=== PATIENT | female | born 1950 | race Caucasian/White ===

== ENCOUNTER → 2018-07-17 10:18 | Outpatient (BNVA) | payer MEDICARE, OTHER, SELFPAY | PROVIDERS: PCP Nurse Practitioner Family; Visit Provider Nurse Practitioner Gerontology | DX: N39.46 Mixed incontinence (principal); R15.9 Full incontinence of feces; Z87.440 Personal history of urinary (tract) infections | CPT/HCPCS: 51798; 81003; 99204 ==

== ENCOUNTER → 2018-12-12 09:54 | Outpatient (BNVA) | payer MEDICARE, OTHER, SELFPAY | PROVIDERS: PCP Nurse Practitioner Family; Visit Provider Nurse Practitioner Gerontology | DX: N39.41 Urge incontinence (principal) | CPT/HCPCS: 99213 ==

== ENCOUNTER 2020-09-26 15:58 | Outpatient (REF) | payer OTHER, SELFPAY | END 2020-09-26 15:59 | disposition home or self-care (01) | LOC: LBN 15:58 | PROVIDERS: PCP Nurse Practitioner Family; Visit Provider Physician Assistant Medical | DX: R30.9 Painful micturition, unspecified (principal) | CPT/HCPCS: 87077; 87086; 87186 ==

== ENCOUNTER 2021-02-02 11:26 | Outpatient (REF) | payer MEDICARE, SELFPAY ==
[2021-02-02 11:53] LABS: Abs Immature Grans 0.03 10^3/uL (0.0-0.06); Absolute Basophil Count 0.03 10^3/uL (0.0-0.2); Absolute Eosinophil Count 0.16 10^3/uL (0.0-0.7); Absolute Lymphocyte Count 1.59 10^3/uL (1.2-3.4); Absolute Monocyte Count 0.48 10^3/uL (0.1-0.8); Absolute Neutrophil Count 6.11 10^3/uL (1.2-6.7); Basophils % 0.4; Eosinophils % 1.9; HCT 34.8 % (36.0-46.0); HGB 11.3 g/dL (11.2-15.7); Immature Grans % 0.4; Lymphocytes % 18.9; MCH 31.9 pg (27.0-33.0); MCHC 32.5 % (32.0-36.0); MCV 98.3 fL (80-95); MPV 11.1 fL (8.0-11.0); Monocytes % 5.7; Neutrophils % 72.7; Nucleated RBC 0 %; Platelet Count 390 10^3/uL (130-400); RBC 3.54 10^6/uL (3.93-5.22); RDW-SD 50.5 fL
[2021-02-02 12:11] LABS: ALT 15 U/L (14-59); AST 9 U/L (15-37); Albumin 3.2 g/dL (3.4-5.0); Alkaline Phosphatase 88 U/L (46-116); Anion Gap 6.6 mmol/L (3-11); BUN 14 mg/dL (7-18); Bilirubin, Total 0.8 mg/dL (0.2-1.0); CO2 31.4 mmol/L (21.0-32.0); CREATININE 0.7 mg/dL (0.55-1.02); Calcium 9.1 mg/dL (8.5-10.1); Chloride 104 mmol/L (98-107); Glucose 160 mg/dL (74-106); Potassium 4.8 mmol/L (3.5-5.1); Sodium 142 mmol/L (136-145); Total Protein 6.5 g/dL (6.4-8.2)
== END 2021-02-02 11:27 | disposition home or self-care (01) ==
LOC: LBN 11:26
PROVIDERS: PCP Nurse Practitioner Family; Visit Provider Family Medicine
DX: D62 Acute posthemorrhagic anemia (principal)
CPT/HCPCS: 80053; 85025

== ENCOUNTER 2022-10-13 06:58 | Day surgery (SDC) | payer OTHER, SELFPAY ==
[2022-10-13 07:00] VITALS: BP 148/66; PULSE 88; RESP 18; TEMP 37; O2SAT 96
[2022-10-13] MEDS: Tropicam./Phenyleph. (1/2.5%) 5 ML BTL OD ×3 (07:20→07:31)
--- NOTE | 2022-10-13 07:31 | W.ANESPRE ---
General Info Date of Service Date Performed: 10/13/22 Height: 5 ft 2 in Weight: 123 kg Body Mass Index (BMI): 49.6 Surgical Procedure: Operation Date: 10/13/22 08:25 Proposed Procedure Side Surgeon p Cataract Extraction with IOL Implant Right Vishal Chapman MD Meds Allergies and Home Medications Allergies Allergy/AdvReac Type Severity Reaction Status Date / Time alcohol Allergy Verified 10/13/22 07:13 azithromycin Allergy Verified 10/13/22 07:13 meperidine [From Demerol] Allergy Verified 10/13/22 07:13 Penicillins Allergy Verified 10/13/22 07:13 Tetanus Vaccines and Toxoid Allergy Verified 10/13/22 07:13 Home Medication Medication Instructions Recorded acetaminophen 500 mg tablet 500 mg PO QID PRN 07/17/18 (Tylenol Extra Strength) aspirin 81 mg tablet,delayed 81 mg PO BID 07/17/18 release (Adult Aspirin Regimen) betamethasone, augmented 0.05 % 1 applic topical PRN 07/17/18 topical gel bupropion HCl 300 mg 24 hr tablet, 300 mg PO QAM 07/17/18 extended release cyclobenzaprine 5 mg tablet 5 mg PO TID PRN 07/17/18 fluticasone 250 mcg-salmeterol 50 1 inh inhalation BID 07/17/18 mcg/dose blistr powdr for inhalation (Advair Diskus) levalbuterol tartrate 45 2 inh inhalation Q6H 07/17/18 mcg/actuation aerosol inhaler naproxen sodium 550 mg tablet 550 mg PO BID 07/17/18 nystatin 100,000 unit/gram topical 1 applic topical BID 07/17/18 powder (Nystop) psyllium 2 packet PO DAILY 07/17/18 Lactobacillus acidophilus 1 cap PO DIRECTED 10/12/22 albuterol sulfate 2.5 mg/3 mL 2.5 mg inhalation DIRECTED 10/12/22 (0.083 %) solution for nebulization albuterol sulfate 90 mcg/actuation 2 inh inhalation DIRECTED 10/12/22 aerosol inhaler (ProAir HFA) cranberry 1,000 mg capsule 1,000 mg PO DAILY 10/12/22 fluticasone 500 mcg-salmeterol 50 1 inh inhalation BID 10/12/22 mcg/dose blistr powdr for inhalation (Advair Diskus) furosemide 20 mg tablet 20 mg PO DAILY 10/12/22 ipratropium 0.5 mg-albuterol 3 mg 3 ml inhalation DIRECTED 10/12/22 (2.5 mg base)/3 mL nebulization soln lisinopril 10 mg tablet 10 mg PO DAILY 10/12/22 loperamide 2 mg tablet 2 mg PO DIRECTED 10/12/22 nystatin 100,000 unit/gram topical 1 applic topical BID 10/12/22 powder phenazopyridine 200 mg tablet 400 mg PO DAILY PRN 10/12/22 (Pyridium) tobramycin 0.3 % eye drops 1 drp ophthalmic (eye) QID 10/12/22 Current Visit Medications: Current Medications Generic Name Dose Route Start Last Admin Trade Name Freq PRN Reason Stop Dose Admin Acetaminophen 1,000 mg 10/13/22 06:00 Acetaminophen 500 Mg Tab PO 11/12/22 05:59 Q4H PRN PRN Balanced Salt Solution 500 ml 10/13/22 06:00 Balanced Salt Soln.-Plus 500 Ml Bag OP 11/12/22 05:59 DIRECTED OFRREST Miscellaneous Medication 0 ml 10/13/22 06:00 Prednisolone 1%, Moxifloxacin 0.5%, Nepafenac 0.1% 5ml Btl OD 11/12/22 05:59 DIRECTED FORREST Miscellaneous Medication 0 ml 10/13/22 06:00 10/13/22 07:25 Tropicam./Phenyleph. (1/2.5%) 5 Ml Btl OD 11/12/22 05:59 1 drp DIRECTED FORREST Administration Tetracaine HCl 0 ml 10/13/22 06:00 Tetracaine 0.5% 4 Ml Btl OD 11/12/22 05:59 DIRECTED FORREST PFSH Active Problems Active Problems: Problem Status Onset Code Urge incontinence N39.41 Nuclear age-related cataract, right eye H25.11 Medical History Medical History Anemia following surgery Asthma COPD (chronic obstructive pulmonary disease) Depression Generalized headaches Glaucoma HLD (hyperlipidemia) HTN (hypertension) Hx of rotator cuff tear Hypersomnia Impaired renal function disorder Intestinal disaccharidase deficiency Macular degeneration MARTHA (obstructive sleep apnea) Peripheral venous insufficiency Rheumatoid arthritis RLS (restless legs syndrome) Severe obesity Surgical History Surgical History Hx of bilateral hip replacements Hx of colonoscopy Hx of dilation and curettage Hx of total knee replacement Tobacco Smoking/Tobacco Use Status: Never Alcohol Alcohol Intake: never Substance Use Substance use: Never Substance use type: does not use Vital Signs and Lab Results Vital Signs Most Recent Vital Signs in EMR: Most Recent Vital Signs Temp Pulse Resp BP Pulse Ox 37 C 88 18 148/66 H 96 10/13/22 07:00 10/13/22 07:00 10/13/22 07:00 10/13/22 07:00 10/13/22 07:00 Lab Results Blood Type / Crossmatch: No Data to Display Complete Blood Count: No Data to Display Complete Metabolic Panel: No Data to Display Liver Function Panel: No Data to Display Coagulation Panel: No Data to Display Cardiac Panel: No Data to Display Arterial Blood Gas: No Data to Display Venous Blood Gas: No Data to Display Pancreas Panel: No Data to Display Thyroid Panel: No Data to Display Infectious Disease: No Data to Display Blood Cultures: No Data to Display Toxicology Panel: No Data to Display Anesthesia Assessment and Plan Anesthesia History Personal History: No History of Anesthesia Complications Family History: No Family History of Anesthesia Complications Exercise Tolerance Exercise Tolerance: Metabolic Equivalents>4 Pertinent Negatives Pertinent Negatives: No Symptoms of GERD Cardiac & Pulmonary Exam Cardiac Exam: Normal S1/S2 Heart Sounds Pulmonary Exam: Clear Bilateral Breath Sounds Implantable Cardiac Device Does patient have a Pacemaker or an ICD?: No Airway Exam Known Difficult Airway: No Mallampati Class: 1 Mouth Opening: Normal (> 3cm) Thyromental Distance: Greater than 3 cm Neck Range of Motion: Full ROM Neck Circumference: Thick Teeth Condition: Normal Dentition ASA Classification ASA Score: ASA 3 Emergency Case?: No NPO Status NPO Status: NPO Clears >2 hours, Solids >8 hours Anesthesia Plan Resuscitation Status: Full Code Anesthesia Technique: MAC Anesthesia Airway Planned: Natural Airway Monitors Used: Standard Monitors
[2022-10-13 08:02] VITALS: BMI 49.6
[2022-10-13] MEDS: Balanced Salt Soln.-PLUS 500 ML BAG OP (08:32)
[2022-10-13] MEDS: Duovisc Viscoelastic System EACH 1 EACH (08:33)
[2022-10-13] MEDS: Tetracaine 0.5% 4 ML BTL OD (08:33)
[2022-10-13] MEDS: Lidocaine 1% Pres-Free 5 ML VIAL (08:34)
[2022-10-13] MEDS: Povidone-Iodine Ophth 30 ML BTL (08:35)
[2022-10-13] MEDS: Phenylephrine/Lidocaine (15/10) MG/ML 1 ML VIAL (08:35)
[2022-10-13 08:52] VITALS: BP 135/106; PULSE 84; RESP 16; TEMP 36.4; O2SAT 97
--- NOTE | 2022-10-13 08:52 | W.PM.DSUDISC ---
Date of service: 10/13/22 Time of Service: 08:52 Discharge Plan Disposition Patient Disposition: Home Discharge Details Attending Provider: Vihsal Chapman Primary Care Provider: Dandy Driscoll Home Meds and New Rx's Prescriptions: No Action fluticasone propion-salmeterol [Advair Diskus] 250-50 mcg/dose blister with device 1 inh IH BID aspirin [Adult Aspirin Regimen] 81 mg tablet,delayed release (DR/EC) 81 mg PO BID betamethasone, augmented 0.05 % gel 1 applic TP PRN bupropion HCl 300 mg tablet extended release 24 hr 300 mg PO QAM cyclobenzaprine 5 mg tablet 5 mg PO TID PRN levalbuterol tartrate 45 mcg/actuation HFA aerosol inhaler 2 inh IH Q6H psyllium packet 2 packet PO DAILY naproxen sodium 550 mg tablet 550 mg PO BID nystatin [Nystop] 100,000 unit/gram powder 1 applic TP BID acetaminophen [Tylenol Extra Strength] 500 mg tablet 500 mg PO QID PRN ipratropium-albuterol 0.5 mg-3 mg(2.5 mg base)/3 mL solution for nebulization 3 ml INHALATION DIRECTED Patient Comments: INHALE 1 VAIL BY MOUTH VIA NEBULIZER FOUR TIMES A DAY albuterol sulfate 2.5 mg /3 mL (0.083 %) solution for nebulization 2.5 mg inhalation DIRECTED Patient Comments: INHALE ONE VIAL BY MOUTH EVERY 4 HOURS NEEDED FOR WHEEZING phenazopyridine [Pyridium] 200 mg Tablet 400 mg PO DAILY PRN loperamide 2 mg Tablet 2 mg PO DIRECTED tobramycin 0.3 % drops 1 drp ophthalmic (eye) QID Patient Comments: PLACE ONE DROP INTO BOTH EYES FOUR TIMES A DAY FOR 7 DAYS lisinopril 10 mg Tablet 10 mg PO DAILY fluticasone propion-salmeterol [Advair Diskus] 500-50 mcg/dose blister with device 1 inh INHALATION BID Patient Comments: INHALE ONE PUFF BY MOUTH TWICE A DAY furosemide 20 mg tablet 20 mg PO DAILY Patient Comments: TAKE ONE TABLET BY MOUTH EVERY DAY nystatin 100,000 unit/gram Powder 1 applic TOPICAL BID Lactobacillus acidophilus Capsule 1 cap PO DIRECTED albuterol sulfate [ProAir HFA] 90 mcg/actuation Hfa Aerosol Inhaler 2 inh INHALATION DIRECTED cranberry 1,000 mg Capsule 1,000 mg PO DAILY Discharge Instructions Stand Alone Forms: Post-op Topical Cataract, Vernon Najera (DSU) Discharge Orders Discharge Orders: Discharge Order (Routine); Ordered 10/13/22 Ordered By: Vishal Chapman DS: Diagnosis Discharge Diagnosis (1) Nuclear age-related cataract, right eye: Status: Resolved
--- NOTE | 2022-10-13 08:53 | ROE_ITS ---
Date of service: 10/13/22 Time of Service: 08:53 Operative Note Operative Note DATE OF PROCEDURE: 10/13/22 PRE-OP DIAGNOSIS: Nuclear cataract, right eye pleased with POST-OP DIAGNOSIS: same PROCEDURE: Cataract extraction using phacoemulsification with intraocular lens implant, right eye SURGEON: Vishal Chapman ANESTHESIA TYPE: Local By Surgeon and MAC Refer to Anesthesia Record ESTIMATED BLOOD LOSS: 0 PATHOLOGY: none sent COMPLICATIONS: None Patient was transported to: same day Patient's condition: stable Implants: Levi Clareon [id number] Indications: Progressive decreased vision due to cataract, right eye Procedure Description: CATARACT SURGERY OPERATIVE REPORT PREOPERATIVE DIAGNOSIS: Nuclear cataract, right eye POSTOPERATIVE DIAGNOSIS: Same OPERATION: Cataract extraction using phacoemulsification with posterior chamber intraocular lens implant, right eye. IOL: IOL Director Payment/Model: Levi Clareon [id number] IOL Power: + 21.0 diopters IOL Serial Number: [id number] Optic Diameter: 6.0mm Haptic/Overall Diameter: 13.0mm PHACO INFO: Levi Avenir Medicalurion Vision System with OZil and Active Fluidics Cumulative Dispersed Energy (CDE): 11.57 seconds SURGEON: Vishal Chapman MD, ADOLFO ANESTHESIA: Monitored Anesthesia Care (MAC), with local sub-tenon's anesthetic infiltration COMPLICATIONS: None SPECIMENS: None INDICATIONS FOR PROCEDURE: The patient is a 72-year-old lady with history of diminished visual acuity in her right eye secondary to the development of nuclear cataract. She is significantly symptomatic that she desires cataract surgery and attempt to improve and maximize her vision. The option of cataract surgery was offered to the patient and she wished to proceed. See office notes for detailed information. PROCEDURE: The correct surgical eye was identified and marked as the right eye and the pupil was dilated in the preoperative area using mydriatics and cycloplegics. The dilated pupil size was 7.0 mm. The patient elected to proceed without oral sedation. The patient was brought to the operating room where cardiopulmonary monitoring was instituted and surgical time-out was performed, confirming the correct operative eye and IOL power. Topical anesthesia was administered and ophthalmic povidone-iodine 5% was instilled into the conjunctival fornices. The vidhi-ocular area was prepped with Betadine 10% solution and draped in the usual sterile fashion for intraocular surgery, including an aperture drape. A Tegaderm transparent film dressing was cut in half and used to cover the lashes and lid margins. Care was taken to sequester the lashes and lid margins under the Tegaderm dressing. A lid speculum was placed between the lids of the operative eye and the Richard-Richard operating microscope was maneuvered into position. Divya scissors were then used to make a conjunctival buttonhole approximately 6mm posterior to the limbus in the inferonasal quadrant. Blunt dissection was carried out to expose bare sclera, and a blunt-tipped sub-tenon?s anesthesia cannula was introduced and passed posteriorly along the globe where non- preserved plain lidocaine was injected into posterior sub-Tenon?s space. A sideport knife was used to make a paracentesis port. Intraocular phenylephrine/lidocaine was injected into the anterior chamber. The anterior chamber was then filled with viscoelastic. A keratome knife was used to construct a two--plane clear corneal tunnel extending 2.0mm into clear cornea. A flap was raised on the anterior capsule and capsulorhexis forceps were used to complete a continuous curvilinear capsulorhexis of 5.5 mm. Balanced salt solution was then used to perform cortical cleaving hydrodissection and nuclear hydrodelineation until the lens could be freely rotated within the capsular bag. The lens nucleus was then disassembled and removed within the capsular bag and iris plane using phacoemulsification. Residual cortical material was removed using the I/A handpiece. The posterior capsule was carefully polished to remove as much residual lens epithelial cells as safely possible. The capsular bag was then inflated and the anterior chamber deepened with cohesive viscoelastic. The lens implant described above was inserted into the capsular bag using the Levi Autonome Injector. A Kuglen hook was used to dial the IOL into position. Residual viscoelastic was then removed first from posterior to the IOL, then from the anterior chamber using the I/A handpiece. The lens implant was noted to center nicely within the capsular bag. The incisions were stromally hydrated, and the anterior chamber was reformed using BSS. Then 0.5cc of moxifloxacin 1.0mg/ml were injected into the capsular bag and anterior chamber. The incisions were checked with a Weck spear and found to be secure. Several drops of ophthalmic povidone-iodine 5% were then applied to the eye followed by two drops of Imprimis combination prednisolone/moxifloxacin/nepafenac solution. The drapes were removed and a clear plastic protective eye shield was placed over the eye. The patient was then returned to [facility] Day Surgery in stable condition.
[2022-10-13] MEDS: Acetaminophen 500 MG TAB 1000 MG PO (09:18)
--- NOTE | 2022-10-13 09:37 | W.ANESPOSTOP ---
Postoperative Evaluation Date, Time and Location Date Performed: 10/13/22 Time Performed: 09:05 Patient Location: Day Surgery Unit Vital Signs Most Recent Imported Vital Signs: Most Recent Vital Signs Temp Pulse Resp BP Pulse Ox 36.4 C L 84 16 135/106 H 97 10/13/22 08:52 10/13/22 08:52 10/13/22 08:52 10/13/22 08:52 10/13/22 08:52 Pain Score Most Recent Pain Score: Most Recent Pain Score Pain Level 5 10/13/22 08:52 Assessment Mental Status: Awake (Alert & Oriented to Patient Baseline) Airway and Respiratory Function: Patent airway with normal (patient baseline) respiratory exam Cardiovascular Function: Hemodynamically Stable Hydration Status: Adequately Hydrated Nausea & Vomiting: No Nausea or Vomiting Pain: Pt. Denies Any Pain Peripheral Nerve Block: Patient did not receive a nerve block
== END 2022-10-13 09:27 | disposition home or self-care (01) ==
LOC: SUR 07:00
PROVIDERS: PCP Nurse Practitioner Family; Visit Provider Ophthalmology
PROC: (CPT 66984; principal; 2022-10-13 08:15)
DX: H25.11 Age-related nuclear cataract, right eye (principal); I10 Essential (primary) hypertension
CPT/HCPCS: 66984; V2632

== ENCOUNTER 2022-10-27 07:45 | Day surgery (SDC) | payer OTHER, SELFPAY ==
[2022-10-27 07:50] VITALS: BP 123/66; PULSE 83; RESP 18; TEMP 36.4; O2SAT 98
[2022-10-27] MEDS: Tropicam./Phenyleph. (1/2.5%) 5 ML BTL OS ×3 (07:57→08:13)
--- NOTE | 2022-10-27 08:39 | W.ANESPRE ---
General Info Date of Service Date Performed: 10/27/22 Height: 5 ft 2 in Weight: 122 kg Body Mass Index (BMI): 49.1 Surgical Procedure: Operation Date: 10/27/22 09:10 Proposed Procedure Side Surgeon p Cataract Extraction with IOL Implant Left Vishal Chapman MD Meds Allergies and Home Medications Allergies Allergy/AdvReac Type Severity Reaction Status Date / Time alcohol Allergy Verified 10/27/22 08:03 azithromycin Allergy Verified 10/27/22 08:03 meperidine [From Demerol] Allergy Verified 10/27/22 08:03 Penicillins Allergy Verified 10/27/22 08:03 Tetanus Vaccines and Toxoid Allergy Verified 10/27/22 08:03 Home Medication Medication Instructions Recorded acetaminophen 500 mg tablet 500 mg PO QID PRN 07/17/18 (Tylenol Extra Strength) aspirin 81 mg tablet,delayed 81 mg PO BID 07/17/18 release (Adult Aspirin Regimen) betamethasone, augmented 0.05 % 1 applic topical PRN 07/17/18 topical gel bupropion HCl 300 mg 24 hr tablet, 300 mg PO QAM 07/17/18 extended release cyclobenzaprine 5 mg tablet 5 mg PO TID PRN 07/17/18 fluticasone 250 mcg-salmeterol 50 1 inh inhalation BID 07/17/18 mcg/dose blistr powdr for inhalation (Advair Diskus) levalbuterol tartrate 45 2 inh inhalation Q6H 07/17/18 mcg/actuation aerosol inhaler naproxen sodium 550 mg tablet 550 mg PO BID 07/17/18 nystatin 100,000 unit/gram topical 1 applic topical BID 07/17/18 powder (Nystop) psyllium 2 packet PO DAILY 07/17/18 Lactobacillus acidophilus 1 cap PO DIRECTED 10/12/22 albuterol sulfate 2.5 mg/3 mL 2.5 mg inhalation DIRECTED 10/12/22 (0.083 %) solution for nebulization albuterol sulfate 90 mcg/actuation 2 inh inhalation DIRECTED 10/12/22 aerosol inhaler (ProAir HFA) cranberry 1,000 mg capsule 1,000 mg PO DAILY 10/12/22 fluticasone 500 mcg-salmeterol 50 1 inh inhalation BID 10/12/22 mcg/dose blistr powdr for inhalation (Advair Diskus) furosemide 20 mg tablet 20 mg PO DAILY 10/12/22 ipratropium 0.5 mg-albuterol 3 mg 3 ml inhalation DIRECTED 10/12/22 (2.5 mg base)/3 mL nebulization soln lisinopril 10 mg tablet 10 mg PO DAILY 10/12/22 loperamide 2 mg tablet 2 mg PO DIRECTED 10/12/22 nystatin 100,000 unit/gram topical 1 applic topical BID 10/12/22 powder phenazopyridine 200 mg tablet 400 mg PO DAILY PRN 10/12/22 (Pyridium) tobramycin 0.3 % eye drops 1 drp ophthalmic (eye) QID 10/12/22 Current Visit Medications: Current Medications Generic Name Dose Route Start Last Admin Trade Name Freq PRN Reason Stop Dose Admin Acetaminophen 1,000 mg 10/27/22 06:00 Acetaminophen 500 Mg Tab PO 11/26/22 05:59 Q4H PRN PRN Balanced Salt Solution 500 ml 10/27/22 06:00 Balanced Salt Soln.-Plus 500 Ml Bag OP 11/26/22 05:59 DIRECTED FORREST Miscellaneous Medication 0 ml 10/27/22 06:00 Prednisolone 1%, Moxifloxacin 0.5%, Nepafenac 0.1% 5ml Btl OS 11/26/22 05:59 DIRECTED FORREST Miscellaneous Medication 0 ml 10/27/22 06:00 10/27/22 08:13 Tropicam./Phenyleph. (1/2.5%) 5 Ml Btl OS 11/26/22 05:59 1 drp DIRECTED FORREST Administration Tetracaine HCl 0 ml 10/27/22 06:00 Tetracaine 0.5% 4 Ml Btl OS 11/26/22 05:59 DIRECTED FORREST PFSH Active Problems Active Problems: Problem Status Onset Code Nuclear age-related cataract, left eye H25.12 Urge incontinence N39.41 Nuclear age-related cataract, right eye H25.11 Medical History Medical History Anemia following surgery Asthma COPD (chronic obstructive pulmonary disease) Depression Generalized headaches Glaucoma HLD (hyperlipidemia) HTN (hypertension) Hx of rotator cuff tear Hypersomnia Impaired renal function disorder Intestinal disaccharidase deficiency Macular degeneration MARTHA (obstructive sleep apnea) Peripheral venous insufficiency Rheumatoid arthritis RLS (restless legs syndrome) Severe obesity Surgical History Surgical History Hx of bilateral hip replacements Hx of colonoscopy Hx of dilation and curettage Hx of total knee replacement Tobacco Smoking/Tobacco Use Status: Never Alcohol Alcohol Intake: never Substance Use Substance use: Never Substance use type: does not use Vital Signs and Lab Results Vital Signs Most Recent Vital Signs in EMR: Most Recent Vital Signs Temp Pulse Resp BP Pulse Ox 36.4 C L 83 18 123/66 98 10/27/22 07:50 10/27/22 07:50 10/27/22 07:50 10/27/22 07:50 10/27/22 07:50 Lab Results Blood Type / Crossmatch: No Data to Display Complete Blood Count: No Data to Display Complete Metabolic Panel: No Data to Display Liver Function Panel: No Data to Display Coagulation Panel: No Data to Display Cardiac Panel: No Data to Display Arterial Blood Gas: No Data to Display Venous Blood Gas: No Data to Display Pancreas Panel: No Data to Display Thyroid Panel: No Data to Display Infectious Disease: No Data to Display Blood Cultures: No Data to Display Toxicology Panel: No Data to Display Anesthesia Assessment and Plan Anesthesia History Personal History: No History of Anesthesia Complications Family History: No Family History of Anesthesia Complications Exercise Tolerance Exercise Tolerance: Metabolic Equivalents>4 Pertinent Negatives Pertinent Negatives: No Symptoms of GERD Cardiac & Pulmonary Exam Cardiac Exam: Normal S1/S2 Heart Sounds Pulmonary Exam: Clear Bilateral Breath Sounds Implantable Cardiac Device Does patient have a Pacemaker or an ICD?: No Airway Exam Known Difficult Airway: No Mallampati Class: 1 Mouth Opening: Normal (> 3cm) Thyromental Distance: Greater than 3 cm Neck Range of Motion: Full ROM Neck Circumference: Thick Teeth Condition: Normal Dentition ASA Classification ASA Score: ASA 3 Emergency Case?: No NPO Status NPO Status: NPO Clears >2 hours, Solids >8 hours Anesthesia Plan Resuscitation Status: Full Code Anesthesia Technique: MAC Anesthesia Airway Planned: Natural Airway Monitors Used: Standard Monitors
[2022-10-27 08:40] VITALS: BMI 49.1
[2022-10-27] MEDS: Povidone-Iodine Ophth 30 ML BTL (08:55)
[2022-10-27] MEDS: Tetracaine 0.5% 4 ML BTL OS (08:58)
[2022-10-27] MEDS: Balanced Salt Soln.-PLUS 500 ML BAG OP (09:01)
[2022-10-27] MEDS: Lidocaine 1% Pres-Free 5 ML VIAL (09:01)
[2022-10-27] MEDS: Duovisc Viscoelastic System EACH 1 EACH (09:01)
[2022-10-27] MEDS: Phenylephrine/Lidocaine (15/10) MG/ML 1 ML VIAL (09:01)
[2022-10-27 09:23] VITALS: BP 139/72; PULSE 79; RESP 16; TEMP 36.3; O2SAT 100
--- NOTE | 2022-10-27 09:24 | W.PM.DSUDISC ---
Date of service: 10/27/22 Time of Service: 09:24 Discharge Plan Disposition Patient Disposition: Home Discharge Details Attending Provider: Vishal Chapman Primary Care Provider: Dandy Driscoll Home Meds and New Rx's Prescriptions: No Action fluticasone propion-salmeterol [Advair Diskus] 250-50 mcg/dose blister with device 1 inh IH BID aspirin [Adult Aspirin Regimen] 81 mg tablet,delayed release (DR/EC) 81 mg PO BID betamethasone, augmented 0.05 % gel 1 applic TP PRN bupropion HCl 300 mg tablet extended release 24 hr 300 mg PO QAM cyclobenzaprine 5 mg tablet 5 mg PO TID PRN levalbuterol tartrate 45 mcg/actuation HFA aerosol inhaler 2 inh IH Q6H psyllium packet 2 packet PO DAILY naproxen sodium 550 mg tablet 550 mg PO BID nystatin [Nystop] 100,000 unit/gram powder 1 applic TP BID acetaminophen [Tylenol Extra Strength] 500 mg tablet 500 mg PO QID PRN ipratropium-albuterol 0.5 mg-3 mg(2.5 mg base)/3 mL solution for nebulization 3 ml INHALATION DIRECTED Patient Comments: INHALE 1 VAIL BY MOUTH VIA NEBULIZER FOUR TIMES A DAY albuterol sulfate 2.5 mg /3 mL (0.083 %) solution for nebulization 2.5 mg inhalation DIRECTED Patient Comments: INHALE ONE VIAL BY MOUTH EVERY 4 HOURS NEEDED FOR WHEEZING phenazopyridine [Pyridium] 200 mg Tablet 400 mg PO DAILY PRN loperamide 2 mg Tablet 2 mg PO DIRECTED tobramycin 0.3 % drops 1 drp ophthalmic (eye) QID Patient Comments: PLACE ONE DROP INTO BOTH EYES FOUR TIMES A DAY FOR 7 DAYS lisinopril 10 mg Tablet 10 mg PO DAILY fluticasone propion-salmeterol [Advair Diskus] 500-50 mcg/dose blister with device 1 inh INHALATION BID Patient Comments: INHALE ONE PUFF BY MOUTH TWICE A DAY furosemide 20 mg tablet 20 mg PO DAILY Patient Comments: TAKE ONE TABLET BY MOUTH EVERY DAY nystatin 100,000 unit/gram Powder 1 applic TOPICAL BID Lactobacillus acidophilus Capsule 1 cap PO DIRECTED albuterol sulfate [ProAir HFA] 90 mcg/actuation Hfa Aerosol Inhaler 2 inh INHALATION DIRECTED cranberry 1,000 mg Capsule 1,000 mg PO DAILY Discharge Instructions Stand Alone Forms: Post-op Topical Cataract, Vernon Najera (DSU) Discharge Orders Discharge Orders: Discharge Order (Routine); Ordered 10/27/22 Ordered By: Vishal Chapman DS: Diagnosis Discharge Diagnosis (1) Nuclear age-related cataract, left eye: Status: Resolved
--- NOTE | 2022-10-27 09:24 | W.PM.OP ---
Date of service: 10/27/22 Time of Service: 09:24 Operative Note Operative Note DATE OF PROCEDURE: 10/27/22 PRE-OP DIAGNOSIS: Nuclear cataract, left eye POST-OP DIAGNOSIS: same PROCEDURE: Cataract extraction using phacoemulsification with intraocular lens implant, left eye SURGEON: Vishal Chapman ANESTHESIA TYPE: Local By Surgeon and MAC Refer to Anesthesia Record PATHOLOGY: none sent COMPLICATIONS: None Patient was transported to: same day Patient's condition: stable Implants: Levi Clareon [id number] Indications: Progressive decreased vision due to cataract, left eye Procedure Description: CATARACT SURGERY OPERATIVE REPORT PREOPERATIVE DIAGNOSIS: Nuclear cataract, left eye POSTOPERATIVE DIAGNOSIS: Same OPERATION: Cataract extraction using phacoemulsification with posterior chamber intraocular lens implant, left eye. IOL: IOL Architectural Sales Consultant/Model: Levi Clareon [id number] IOL Power: + 22.0 diopters IOL Serial Number: [id number] Optic Diameter: 6.0mm Haptic/Overall Diameter: 13.0mm PHACO INFO: Levi RSP Toolingurion Vision System with OZil and Active Fluidics Cumulative Dispersed Energy (CDE): 7.46 seconds SURGEON: Vishal Chapman MD, ADOLFO ANESTHESIA: Monitored Anesthesia Care (MAC), with local sub-tenon's anesthetic infiltration COMPLICATIONS: None SPECIMENS: None INDICATIONS FOR PROCEDURE: The patient is a 72-year-old lady with history of diminished visual acuity in her left eye secondary to the development of nuclear cataract. She has recently undergone cataract surgery in her right eye is doing well postoperatively. She now presents for cataract surgery in the left eye. See office notes for detailed information. PROCEDURE: The correct surgical eye was identified and marked as the left eye and the pupil was dilated in the preoperative area using mydriatics and cycloplegics. The dilated pupil size was 7.0 mm. 5.5 the patient elected to proceed without oral sedation. The patient was brought to the operating room where cardiopulmonary monitoring was instituted and surgical time-out was performed, confirming the correct operative eye and IOL power. Topical anesthesia was administered and ophthalmic povidone-iodine 5% was instilled into the conjunctival fornices. The vidhi-ocular area was prepped with Betadine 10% solution and draped in the usual sterile fashion for intraocular surgery, including an aperture drape. A Tegaderm transparent film dressing was cut in half and used to cover the lashes and lid margins. Care was taken to sequester the lashes and lid margins under the Tegaderm dressing. A lid speculum was placed between the lids of the operative eye and the Levi LuxOR Revalia operating microscope was maneuvered into position. Divya scissors were then used to make a conjunctival buttonhole approximately 6mm posterior to the limbus in the inferonasal quadrant. Blunt dissection was carried out to expose bare sclera, and a blunt-tipped sub-tenon?s anesthesia cannula was introduced and passed posteriorly along the globe where non-preserved plain lidocaine was injected into posterior sub-Tenon?s space. A sideport knife was used to make a paracentesis port. The entire case was challenging due to the eye being in forceful supraduction. The patient could not look down or keep the eye centered. Intraocular phenylephrine/lidocaine was injected into the anterior chamber. The anterior chamber was then filled with viscoelastic. A keratome knife was used construct a two-plane clear corneal tunnel extending 2.0mm into clear cornea. A flap was raised on the anterior capsule and capsulorhexis forceps were used to complete a continuous curvilinear capsulorhexis of 5.5 mm. Balanced salt solution was then used to perform cortical cleaving hydrodissection and nuclear hydrodelineation until the lens could be freely rotated within the capsular bag. The lens nucleus was then disassembled and removed within the capsular bag and iris plane using phacoemulsification. Residual cortical material was removed using the irrigation/aspiration handpiece. The posterior capsule was carefully polished to remove as much residual lens epithelial cells as safely possible. The capsular bag was then inflated and the anterior chamber deepened with viscoelastic. The lens implant described above was inserted into the capsular bag using the Levi Autonome Injector. A Kuglen hook was used to dial the IOL into position. Residual viscoelastic was then removed first from posterior to the IOL, then from the anterior chamber using the I/A handpiece. The lens implant was noted to center nicely within the capsular bag. The incisions were stromally hydrated, and the anterior chamber was reformed using BSS. Then 0.5cc of moxifloxacin 1.0mg/ml were injected into the capsular bag and anterior chamber. The incisions were checked with a Weck spear and found to be secure. Several drops of ophthalmic povidone-iodine 5% were then applied to the eye followed by two drops of Imprimis combination prednisolone/moxifloxacin/nepafenac solution. The drapes were removed and a clear plastic protective eye shield was placed over the eye. The patient was then returned to Same Day Surgery in stable condition.
--- NOTE | 2022-10-27 09:50 | W.ANESPOSTOP ---
Postoperative Evaluation Date, Time and Location Date Performed: 10/27/22 Time Performed: 09:30 Patient Location: Day Surgery Unit Vital Signs Most Recent Imported Vital Signs: Most Recent Vital Signs Temp Pulse Resp BP Pulse Ox 36.3 C L 79 16 139/72 100 10/27/22 09:23 10/27/22 09:23 10/27/22 09:23 10/27/22 09:23 10/27/22 09:23 Pain Score Most Recent Pain Score: Most Recent Pain Score Pain Level 0 10/27/22 09:23 Assessment Mental Status: Awake (Alert & Oriented to Patient Baseline) Airway and Respiratory Function: Patent airway with normal (patient baseline) respiratory exam Cardiovascular Function: Hemodynamically Stable Hydration Status: Adequately Hydrated Nausea & Vomiting: No Nausea or Vomiting Pain: Pt. Denies Any Pain Peripheral Nerve Block: Patient did not receive a nerve block
== END 2022-10-27 10:03 | disposition home or self-care (01) ==
PROVIDERS: PCP Nurse Practitioner Family; Visit Provider Ophthalmology
PROC: (CPT 66984; principal; 2022-10-27 09:00)
DX: H25.12 Age-related nuclear cataract, left eye (principal); I10 Essential (primary) hypertension
CPT/HCPCS: 66984; V2632

== ENCOUNTER 2024-02-27 16:34 | Emergency (ER) | payer OTHER, SELFPAY ==
[2024-02-27] VITALS (21 sets, daily range): BP systolic 132–150; BP diastolic 60–85; PULSE 79–91; RESP 15–30; TEMP 36.5; O2SAT 91–99
--- NOTE | 2024-02-27 16:45 | DI.RAD_ITS ---
Exam(s) XR CHEST 2V PA LATERAL EXAM: XR CHEST 2V PA LATERAL CLINICAL HISTORY: cough TECHNIQUE: 2D digital imaging was performed. Two views. COMPARISON: No exams were available for comparison FINDINGS: Exam is limited by under penetration at the lung bases. HEART: Upper limits of normal. Mitral annular calcification. Aorta: Mildly tortuous. PULMONARY VASCULATURE: Mildly prominent. MEDIASTINUM: Unremarkable. LUNGS: No focal infiltrate. Increased interstitial markings could be chronic or may represent mild p ulmonary edema. PLEURAL SPACE: No pleural effusion or pneumothorax. BONE:Degenerative changes in the spine and shoulders. SOFT TISSUES: Unremarkable. IMPRESSION: Somewhat limited exam. Question mild CHF. No focal infiltrate is visible. DATA REPOSITORY: RADIATION DOSE DELIVERED:
--- NOTE | 2024-02-27 16:45 | RT.EKG_ITS ---
APPROVED REPORT Exam: Resting ECG Reason for Exam: dyspnea Patient Location: E HR:83 bpm ECG Measurements Heart Rate 83 AXIS SD 174 P 29 QRSd 83 QRS 57 QT 377 T 42 QTc 443 Conclusion Sinus rhythm...normal P axis, V-rate 60- 99
--- NOTE | 2024-02-27 16:58 | ED.GENADUL_ITS ---
Discharge Plan Disposition Patient Disposition: Home Condition: Stable Discharge Details Clinical Impression: Respiratory infection, Asthma exacerbation, Shortness of breath Primary Care Provider: Dandy Driscoll ED Provider: Carlos Barney Home Meds and New Rx's Prescriptions: New prednisone 20 mg tablet 60 mg PO DAILY 4 Days Qty: 12 0RF doxycycline hyclate 100 mg tablet 100 mg PO BID Qty: 14 0RF Continued fluticasone propion-salmeterol [Advair Diskus] 250-50 mcg/dose blister with device 1 inh IH BID aspirin [Adult Aspirin Regimen] 81 mg tablet,delayed release (DR/EC) 81 mg PO BID betamethasone, augmented 0.05 % gel 1 applic TP PRN bupropion HCl 300 mg tablet extended release 24 hr 300 mg PO QAM cyclobenzaprine 5 mg tablet 5 mg PO TID PRN levalbuterol tartrate 45 mcg/actuation HFA aerosol inhaler 2 inh IH Q6H psyllium packet 2 packet PO DAILY naproxen sodium 550 mg tablet 550 mg PO BID nystatin [Nystop] 100,000 unit/gram powder 1 applic TP BID acetaminophen [Tylenol Extra Strength] 500 mg tablet 500 mg PO QID PRN ipratropium-albuterol 0.5 mg-3 mg(2.5 mg base)/3 mL solution for nebulization 3 ml INHALATION DIRECTED Patient Comments: INHALE 1 VAIL BY MOUTH VIA NEBULIZER FOUR TIMES A DAY albuterol sulfate 2.5 mg /3 mL (0.083 %) solution for nebulization 2.5 mg inhalation DIRECTED Patient Comments: INHALE ONE VIAL BY MOUTH EVERY 4 HOURS NEEDED FOR WHEEZING phenazopyridine [Pyridium] 200 mg Tablet 400 mg PO DAILY PRN loperamide 2 mg Tablet 2 mg PO DIRECTED tobramycin 0.3 % drops 1 drp ophthalmic (eye) QID Patient Comments: PLACE ONE DROP INTO BOTH EYES FOUR TIMES A DAY FOR 7 DAYS lisinopril 10 mg Tablet 10 mg PO DAILY fluticasone propion-salmeterol [Advair Diskus] 500-50 mcg/dose blister with device 1 inh INHALATION BID Patient Comments: INHALE ONE PUFF BY MOUTH TWICE A DAY furosemide 20 mg tablet 20 mg PO DAILY Patient Comments: TAKE ONE TABLET BY MOUTH EVERY DAY nystatin 100,000 unit/gram Powder 1 applic TOPICAL BID Lactobacillus acidophilus Capsule 1 cap PO DIRECTED albuterol sulfate [ProAir HFA] 90 mcg/actuation Hfa Aerosol Inhaler 2 inh INHALATION DIRECTED cranberry 1,000 mg Capsule 1,000 mg PO DAILY Discharge Instructions Additional Instructions: Your blood work and x-ray did not show any concerning findings at this time. I suspect you have a respiratory infection causing an exacerbation of your asthma If you are not improving within a week follow-up with your primary care provider If you feel more ill, have severe worsening shortness of breath or severe chest pain return to the emergency department for reevaluation HPI General Date/Time Provider Initiated Documentation: 02/27/24 16:41 . Limitations to Documentation: no limitations . Information obtained by: patient . History of Present Illness 73 year old F presents to the emergency department with the chief complaint of dyspnea, described as moderate, Patient reports no radiation. Patient started experiencing this day(s) (4) and it has been constant. Rest improves symptom(s), Movement worsens symptoms . Patient notes cough; denies chest pain. Related Data Home Medications ?Medication ?Instructions ?Recorded ?Confirmed acetaminophen 500 mg tablet 500 mg PO QID PRN 07/17/18 02/27/24 (Tylenol Extra Strength) aspirin 81 mg tablet,delayed 81 mg PO BID 07/17/18 02/27/24 release (Adult Aspirin Regimen) betamethasone, augmented 0.05 % 1 applic topical PRN 07/17/18 02/27/24 topical gel bupropion HCl 300 mg 24 hr tablet, 300 mg PO QAM 07/17/18 02/27/24 extended release cyclobenzaprine 5 mg tablet 5 mg PO TID PRN 07/17/18 02/27/24 fluticasone 250 mcg-salmeterol 50 1 inh inhalation BID 07/17/18 02/27/24 mcg/dose blistr powdr for inhalation (Advair Diskus) levalbuterol tartrate 45 2 inh inhalation Q6H 07/17/18 02/27/24 mcg/actuation aerosol inhaler naproxen sodium 550 mg tablet 550 mg PO BID 07/17/18 02/27/24 nystatin 100,000 unit/gram topical 1 applic topical BID 07/17/18 02/27/24 powder (Nystop) psyllium 2 packet PO DAILY 07/17/18 10/27/22 Lactobacillus acidophilus 1 cap PO DIRECTED 10/12/22 10/27/22 albuterol sulfate 2.5 mg/3 mL 2.5 mg inhalation DIRECTED 10/12/22 02/27/24 (0.083 %) solution for nebulization albuterol sulfate 90 mcg/actuation 2 inh inhalation DIRECTED 10/12/22 02/27/24 aerosol inhaler (ProAir HFA) cranberry 1,000 mg capsule 1,000 mg PO DAILY 10/12/22 02/27/24 fluticasone 500 mcg-salmeterol 50 1 inh inhalation BID 10/12/22 02/27/24 mcg/dose blistr powdr for inhalation (Advair Diskus) furosemide 20 mg tablet 20 mg PO DAILY 10/12/22 02/27/24 ipratropium 0.5 mg-albuterol 3 mg 3 ml inhalation DIRECTED 10/12/22 02/27/24 (2.5 mg base)/3 mL nebulization soln lisinopril 10 mg tablet 10 mg PO DAILY 10/12/22 02/27/24 loperamide 2 mg tablet 2 mg PO DIRECTED 10/12/22 10/27/22 nystatin 100,000 unit/gram topical 1 applic topical BID 10/12/22 02/27/24 powder phenazopyridine 200 mg tablet 400 mg PO DAILY PRN 10/12/22 02/27/24 (Pyridium) tobramycin 0.3 % eye drops 1 drp ophthalmic (eye) QID 10/12/22 02/27/24 doxycycline hyclate 100 mg tablet 100 mg PO BID #14 tabs 02/27/24 prednisone 20 mg tablet 60 mg (3 x 20 mg) PO DAILY 4 days 02/27/24 #12 tabs Previous Rx's ?Medication ?Instructions ?Recorded doxycycline hyclate 100 mg tablet 100 mg PO BID #14 tabs 02/27/24 prednisone 20 mg tablet 60 mg (3 x 20 mg) PO DAILY 4 days 02/27/24 #12 tabs Allergies Allergy/AdvReac Type Severity Reaction Status Date / Time alcohol Allergy Rash Verified 02/27/24 16:48 azithromycin Allergy Unknown Verified 02/27/24 16:48 meperidine (From Demerol) Allergy Agitation Verified 02/27/24 16:48 Penicillins Allergy Anaphylaxis Verified 02/27/24 16:48 Tetanus Vaccines and Toxoid Allergy Unknown Verified 02/27/24 16:48 General Stated Complaint: SOB ALL: 3 Review of Systems All systems reviewed & are unremarkable except as noted in HPI and below Constitutional Constitutional: Denies chills, Denies fever(s) and Denies weakness Cardiovascular Cardiovascular: Denies chest pain and Reports dyspnea Respiratory Respiratory: Reports cough and Reports dyspnea Gastrointestinal Gastrointestinal: Denies abdominal pain, Denies nausea and Denies vomiting Neurologic Neurologic: Denies weakness Exam Const General: no acute distress Orientation: alert HENMT Head: normal to inspection Ears: external ears normal General nose exam: external nose normal Mouth: moist mucous membranes Eyes General: appearance normal, both eyes and all related structures Neck Neck: normal visual inspection Resp Effort & Inspection: normal respiratory effort Auscultation: wheezes Cardio Jugular venous pressure: no JVD Rate: regular rate Heart Sounds: no murmurs Skin General skin exam: no rashes or lesions noted Neuro General: patient alert and patient oriented x3 Extrem General: normal to inspection Psych Mental Status: mental status grossly normal Course Vital Signs Vital signs: Vital Signs Temperature 36.5 C 02/27/24 16:42 Pulse 84 02/27/24 16:42 Respiratory Rate 30 H 02/27/24 16:42 Blood Pressure 141/85 H 02/27/24 16:42 Pulse Oximetry 91 L 02/27/24 16:42 Temperature 36.5 C 02/27/24 16:42 Pulse 84 02/27/24 16:42 Respiratory Rate 30 H 02/27/24 16:42 Blood Pressure 141/85 H 02/27/24 16:42 Blood Pressure Position Sitting 02/27/24 16:42 Pulse Oximetry 91 L 02/27/24 16:42 Oxygen Delivery Method Room Air 02/27/24 16:42 Oxygen Flow Rate 0 02/27/24 16:42 Medical Decision Making 73-year-old female who states has a history of asthma comes in with 3 to 4 days of worsening shortness of breath along with cough. She says the cough is productive. She denies any chest pain or high fevers. She says that walking around makes her even more short of breath. She is alert and oriented x 4. She has no visible signs of respirator stress, on lung exam she does have diffuse wheezing bilaterally. Given her symptoms we will check a CBC, CMP procalcitonin and chest x-ray. Will also check a Fluvid. Despite her not having chest pain given her complaints of dyspnea with exertion we will check an EKG and troponins. She has no calf tenderness and no pleuritic chest pain or exam findings are consistent with asthma along with respiratory infection so doubt PE. Labs all unremarkable, patient feels better after neb and Solu-Medrol. X-ray read as limited but question CHF, she clinically is not CHF and her proBNP is in the normal range so doubt CHF. Given her increased productive cough will cover for respiratory infection with doxycycline. She is stable for discharge, she will follow-up with her PCP if not improving and return precautions given Differential Diagnosis Differential Diagnosis: Asthma exacerbation, pneumonia, COVID Imaging Data Radiologic Study: Attestation: I personally reviewed and interpreted this imaging study as follows: Imaging: X-Ray Radiologist's impression: Exam(s) XR CHEST 2V PA LATERAL EXAM: XR CHEST 2V PA LATERAL CLINICAL HISTORY: cough TECHNIQUE: 2D digital imaging was performed. Two views. COMPARISON: No exams were available for comparison FINDINGS: Exam is limited by under penetration at the lung bases. HEART: Upper limits of normal. Mitral annular calcification. Aorta: Mildly tortuous. PULMONARY VASCULATURE: Mildly prominent. MEDIASTINUM: Unremarkable. LUNGS: No focal infiltrate. Increased interstitial markings could be chronic or may represent mild pulmonary edema. PLEURAL SPACE: No pleural effusion or pneumothorax. BONE:Degenerative changes in the spine and shoulders. SOFT TISSUES: Unremarkable. IMPRESSION: Somewhat limited exam. Question mild CHF. No focal infiltrate is visible. Lab Data Lab results reviewed: Yes I reviewed the patient's lab results. ECG Data Attestation: I personally reviewed and interpreted this ECG (s) as follows: Prior ECG tracings: available for review Interpretation: sinus rate of 83 pr 174, no stemi Quality:SDOH Health Related Social Needs: No Data to Display PFSH All Active Problems (Updated 02/27/24 @ 19:34 by Carlos Barney MD) Shortness of breath (Acute) Asthma exacerbation (Acute) Respiratory infection (Acute) Urge incontinence (Acute) Medical History (Updated 02/27/24 @ 19:34 by Carlos Barney MD) Hx of rotator cuff tear RLS (restless legs syndrome) Intestinal disaccharidase deficiency Hypersomnia HLD (hyperlipidemia) Anemia following surgery Severe obesity Peripheral venous insufficiency Impaired renal function disorder Depression MARTHA (obstructive sleep apnea) COPD (chronic obstructive pulmonary disease) Asthma Generalized headaches Macular degeneration HTN (hypertension) Rheumatoid arthritis Glaucoma Surgical History (Updated 10/27/22 @ 09:24 by Vishal Chapman MD) Hx of bilateral hip replacements Hx of dilation and curettage Hx of colonoscopy Hx of total knee replacement Social History Smoking/Tobacco Use Status: Never Smoking risk assessment performed?: Yes Alcohol Intake: never Drug use: Never Substance use type: does not use Housing: house Do you feel safe at home: Yes Do you feel safe in your relationship?: Yes
[2024-02-27] MEDS: Albuterol/Ipratropium 3 ML UPD VIAL UPD (17:36)
[2024-02-27 17:38] LABS: Abs Immature Grans 0.01 10^3/uL (0.0-0.06); Absolute Basophil Count 0.02 10^3/uL (0.0-0.2); Absolute Eosinophil Count 0.35 10^3/uL (0.0-0.7); Absolute Monocyte Count 0.47 10^3/uL (0.1-0.8); Absolute Neutrophil Count 3.32 10^3/uL (1.2-6.7); Basophils % 0.3 %; Eosinophils % 5.6 %; HCT 40.8 % (36.0-46.0); HGB 13.1 g/dL (11.2-15.7); Immature Grans % 0.2 %; Lymphocytes % 33.5 %; MCH 31.6 pg (27.0-33.0); MCHC 32.1 % (32.0-36.0); MCV 99 fL (80-95); MPV 10.9 fL (8.0-11.0); Monocytes % 7.5 %; Neutrophils % 52.9 %; Platelet Count 245 10^3/uL (130-400); RBC 4.14 10^6/uL (3.93-5.22); RDW 13.1 % (11.7-14.6); RDW-SD 47.4 fL; WBC 6.27 10^3/uL (4.4-10.8)
[2024-02-27] MEDS: methylPREDNISolone SUCC 125 MG VIAL IVP (17:38)
[2024-02-27 18:04] LABS: ALT 17 U/L (14-59); AST 18 U/L (15-37); Albumin 3.1 g/dL (3.4-5.0); Alkaline Phosphatase 82 U/L (46-116); Anion Gap 4.8 mmol/L (3-11); BUN 12 mg/dL (7-18); Bilirubin, Total 0.72 mg/dL (0.2-1.0); CO2 31.2 mmol/L (21.0-32.0); Calcium 8.8 mg/dL (8.5-10.1); Chloride 107 mmol/L (98-107); Estimated GFR 59.86 (mL/min/1.73m2); Glucose 121 mg/dL (74-106); Magnesium 1.8 mg/dL (1.8-2.4); NT-proBNP 293 pg/mL (<300); Potassium 3.8 mmol/L (3.5-5.1); Sodium 143 mmol/L (136-145); Total Protein 6.9 g/dL (6.4-8.2); Troponin I 11 ng/L (<or=51)
[2024-02-27 18:38] LABS: Procalcitonin < 0.10 ng/mL
[2024-02-27 18:57] LABS: Troponin I 11 ng/L (<or=51)
--- OUTSIDE RECORDS SUMMARY | 2024-02-27 19:29 | XMS_ITS | Continuity of Care Document ---
Author Organization 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 Allergies, Adverse Reactions, Alerts Substance Reaction Severity Status ALCOHOL 1 Unknown Active meperidine Bewilderment Unknown Active azithromycin Swollen face Unknown Active penicillins Swelling Other Unknown Active tetanus toxoids Unknown Active 1Rubbing Assessment and Plan Future Appointments Immunizations Given and Recorded Vaccine Date Status Refusal Reason pneumococcal 23-polyvalent vaccine 1 09/23/21 Bc rded pneumococcal 23-polyvalent vaccine 02/13/08 Record ed [id number] (booster only) vacc 09/23/21 Recorded [id number] (booster only) vacc 07/09/20 Recorded influenza, unspecified formulation 01/07/21 Record ed influenza, unspecified formulation 01/02/20 Record ed influenza, unspecified formulation 02/06/19 Record ed influenza, unspecified formulation 01/22/18 Record ed SARS-CoV-2 (COVID-19) mRNA-1273 vaccine 07/09/20 R ecorded SARS-CoV-2 (COVID-19) mRNA-1273 vaccine 06/11/20 R ecorded SARS-CoV-2 (COVID-19) mRNA-1273 vaccine 2 06/11/20 Recorded pneumococcal 13-valent conjugate vaccine 02/06/19 Recorded influenza virus vaccine, inactivated 02/09/17 Bc rded influenza virus vaccine, inactivated 01/11/17 Bc rded influenza virus vaccine, inactivated 12/16/15 Bc rded influenza virus vaccine, inactivated 01/07/14 Bc rded influenza virus vaccine, inactivated 01/22/13 Bc rded influenza virus vaccine, inactivated 02/07/12 Bc rded influenza virus vaccine, inactivated 01/10/10 Bc rded influenza virus vaccine, inactivated 02/13/08 Bc rded influenza virus vaccine, inactivated 01/30/07 Bc rded influenza virus vaccine, inactivated 12/08/05 Bc rded influenza virus vaccine, inactivated 01/08/04 Bc rded zoster vaccine live 01/22/13 Recorded Novel [id number], all formulation 04/29/09 Recorded pneumococcal 7-valent vaccine 04/09/00 Recorded Not Given Vaccine Date Status Refusal Reason Td(adult) unspecified formulation 3 04/27/20 Not G iven Patient Refuses 1Result Comment: [facility] 2Result Comment: 1st vaccine 3Result Comment: Last Modified by Azra Dykes, Smasher Hand 04-27-2020, 11:54 Medications Acidophilus oral capsule 0 Refill(s) Start Date: 10/27/21 Status: Ordered Advair Diskus 500 mcg-50 mcg inhalation powder 1 puffs, Inhale, BID, # 28 EA, 4 Refill(s), Pharmacy: [facility], 155, cm, 09/23/21 4:52:00 EDT, Height/Length Dosing, 125, kg, 09/23/21 4:52:00 EDT, Weight Dosing Start Date: 11/24/21 Status: Ordered Albuterol (Eqv-ProAir HFA) 90 mcg/inh inhalation aerosol 180 mcg 2 puffs, Inhale, every 4 hr, PRN as needed for wheezing, # 8.5 g, 2 Refill(s), Pharmacy: [facility], 155, cm, 09/23/21 4:52:00 EDT, Height/Length Dosing, 125, kg, 09/23/21 4:52:00 EDT, Weight Dosing Start Date: 11/21/21 Status: Ordered Aleve Topical, PRN as needed for pain, Use spray as directed., 0 Refill(s) Start Date: 10/27/21 Status: Ordered amoxicillin 500 mg oral capsule 2,000 mg = 4 cap, Oral, Once, Take one hr prior to dental procedure., # 4 cap, 0 Refill(s) Start Date: 10/27/21 Status: Ordered aspirin 81 mg oral delayed release tablet 81 mg = 1 tab, Oral, Daily, # 90 tab, 0 Refill(s) Start Date: 10/27/21 Status: Ordered buPROPion 300 mg/24 hours (XL) oral tablet, extended release 300 mg = 1 tab, Oral, Daily, # 90 tab, 2 Refill(s), Pharmacy: [facility], 155, cm, 09/23/21 4:52:00 EDT, Height/Length Dosing, 125, kg, 09/23/21 4:52:00 EDT, Weight Dosing Start Date: 11/21/21 Status: Ordered cannabidiol See Instructions, CBD Cream 3000 mg; apply as directed., 0 Refill(s) Start Date: 10/27/21 Status: Ordered Cranberry oral tablet 1 tab, Oral, Daily, 0 Refill(s) Start Date: 10/27/21 Status: Ordered cyclobenzaprine 10 mg =, Oral, TID, PRN not specified, 1/2 to 1 tab as needed., 0 Refill(s) Start Date: 10/27/21 Status: Ordered lisinopril 10 mg oral tablet 10 mg = 1 tab, Oral, Daily, # 90 tab, 2 Refill(s), Pharmacy: [facility], 155, cm, 09/23/21 4:52:00 EDT, Height/Length Dosing, 125, kg, 09/23/21 4:52:00 EDT, Weight Dosing Start Date: 11/21/21 Status: Ordered loperamide 2 mg oral capsule 2 mg = 1 cap, Oral, TID, PRN as needed for loose stool, # 270 cap, 1 Refill(s), Pharmacy: [facility], 155, cm, 09/23/21 4:52:00 EDT, Height/Length Dosing, 125, kg, 09/23/21 4:52:00 EDT, Weight Dosing Start Date: 11/21/21 Status: Ordered naproxen 500 mg oral tablet 500 mg = 1 tab, Oral, BID, # 60 tab, 1 Refill(s), Pharmacy: [facility], 155,cm, 09/23/21 4:52:00 EDT, Height/Length Dosing, 125, kg, 09/23/21 4:52:00 EDT, Weight Dosing Start Date: 11/21/21 Status: Ordered Nyamyc 100,000 units/g topical powder See Instructions, Topical BID as needed for yeast, # 30 g, 0 Refill(s), Pharmacy: [facility], 155, cm, 09/23/21 4:52:00 EDT, Height/Length Dosing, 125, kg, 09/23/21 4:52:00 EDT, Weight Dosing Start Date: 11/21/21 Status: Ordered torsemide 10 mg oral tablet 10 mg = 1 tab, Oral, Daily, # 30 tab, 0 Refill(s), Pharmacy: [id number], 155, cm, 09/23/21 4:52:00 EDT, Height/Length Dosing, 125, kg, 09/23/21 4:52:00 EDT, Weight Dosing Start Date: 04/06/22 Status: Ordered triamcinolone 0.1% topical cream 1 che, Topical, TID, PRN not specified, Apply to affected areas as needed., # 30 g, 0 Refill(s), Pharmacy: [facility], 155, cm, 09/23/21 4:52:00 EDT, Height/Length Dosing, 125,kg, 09/23/21 4:52:00 EDT, Weight Dosing Start Date: 11/21/21 Status: Ordered Problem List Condition Confirmation Course Effective Dates Status Health Status Informant Asthma 1 Confirmed Active Candidiasis of vulva Confirmed Active Contact dermatitis Confirmed Active Cough 2 Confirmed Active Cyanosis Confirmed Active Depressive disorder Confirmed Active Genital lichen sclerosus Confirmed 12/06/17 Active Hyperlipidemia Confirmed Active Hypersomnia Confirmed Active Hypertensive disorder Confirmed Active Idiopathic osteoarthritis Confirmed Active Impaired renal function disorder 3 Confirmed 03/22/18 Active Intestinal disaccharidase deficiency Confirmed Active Pain of left hip joint Confirmed Active Peripheral venous insufficiency Confirmed Active Postmenopausal state Confirmed Active Restless legs Confirmed Active Severe obesity Confirmed Active Shoulder joint pain Confirmed Active Spondylolisthesis Confirmed Active Spondylosis Confirmed Active Temporomandibular joint disorder Confirmed Active Tracheobronchitis Confirmed Active Urge incontinence of urine Confirmed Active 1From 07-14-2021 visit: stable except on exercise likely due to conditioning. Bradley cleaning is not currently on formulary. Will trial symbicort. 2From 07-07-2021 visit: Likely start of common cold. Recommended mucus relief without the built-in cough suppressant and I will give her the generic Tessalon for the cough to use in the morning and evening if she needs it. Recommended throat lozenges. Drink plenty of water. This can last 7 to 10 days and if not improving in a week to follow-up with her primary care provider. We scheduled her for a Covid PCR test this afternoon. 3[place] [facility] [place] Procedures Procedure Date Related Diagnosis Body Site Status Colonoscopy 1 10/24/18 Completed Total arthroplasty of the left hip 02/12/18 Completed Complete repair of right rotator cuff 01/06/09 Completed Colonoscopy 2 08/11/02 Completed Bilateral knee surgery 3 04/08/01 Completed Procedure on left shoulder 04/08/01 Completed Tubal ligation 04/08/85 Completed Repair of patellar tendon 04/08/68 Completed Dilatation and curettage Completed 1diverticular disease, colon polypx2. 2Normal. 3Revision in 2013 Results Laboratory List Name Date D-Dimer 04/06/22 NT- Pro BNP 04/06/22 Most recent to oldest [Reference Range]: 1 NT-proBNP [0-125 pg/mL] 186 pg/mL *HI* (04/06/22 2:07 PM) D Dimer, (Quant.) [0.00-0.50 mg/L] 0.68 mg/L *HI* (04/06/22 2:07 PM) Social History Social History Type Response Tobacco Never tobacco user T obacco Use:. Sex Female Patient Care team information Personnel Name: aDndy Driscoll NP Address: Address: [address] [address]- [place]
--- OUTSIDE RECORDS SUMMARY | 2024-02-27 19:29 | XMS_ITS | Continuity of Care Document ---
Author Organization [facility] Address [address] [place] [address] Care Team Providers Care Rand Butter Name Role Phone Dandy Driscoll Primary Care Physician Encounter NCTY_ID Date(s): 04/22/22 - 04/24/[address] [id number] Encounter Diagnosis Asthma exacerbation, mild(Discharge Diagnosis) - 04/22/22 RSV (respiratory syncytial virus infection)(Discharge Diagnosis) - 04/22/22 Acute diastolic heart failure(Discharge Diagnosis) - 04/23/22 Acute kidney injury(Discharge Diagnosis) - 04/22/22 Hyperglycemia(Discharge Diagnosis) - 04/22/22 Venous stasis ulcers(Discharge Diagnosis) - 04/22/22 Hypertensive disorder(Discharge Diagnosis) - 04/23/22 UTI (urinary tract infection), bacterial(Discharge Diagnosis) - 04/24/22 Bacterial infection, unspecified(Discharge Diagnosis) - 04/24/22 Unspecified asthma with (acute) exacerbation(Final) - Other specified viral diseases(Final) - Acute diastolic (congestive) heart failure(Final) - Dyspnea, unspecified(Final) - Acute kidney failure, unspecified(Final) - Hyperglycemia, unspecified(Final) - Varicose veins of unspecified lower extremity with ulcer of unspecified site (Final) - Essential (primary) hypertension(Final) - Hyperlipidemia, unspecified(Final) - Restless legs syndrome(Final) - Morbid (severe) obesity due to excess calories(Final) - Personal history of nicotine dependence(Final) - 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) - Do not resuscitate(Final) - Discharge Disposition: Home w/ Home Health Care Attending Physician: Mookie Kothari MD Admitting Physician: Sang, Joann WINDOW CLERK Allergies, Adverse Reactions, Alerts Substance Reaction Severity Status ALCOHOL 1 Moderate Active meperidine Bewilderment Unknown Active azithromycin Swollen face Unknown Active penicillins Swelling Other Unknown Active tetanus toxoids Unknown Active 1Rubbing Assessment and Plan Future Appointments Functional Status 04/24/22 Living Environment Living Situation: Ho me independently, Other: brothers can help but limited assistance - needs exceed current help - suggest [facility]NA referral Current Home Treatments: Home Devices/Equipment Professional Skilled Services: Special Services and Community Resources: Sensory Deficits: Performed by: Jose Wall04/23/22 00:55:00 Lives In Single level home Lives With Alone Living Situation Home independently Home Barriers No shower/tub on fir st level, Other: Mice infestation Patient's Responsibilities 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, Driving, healthcare management, Home management, Housework, Laundry, Meal preparation, Personal ADL, Shopping Job Responsibilities needs help with aaliyah e and responsibilites - needs increasing and unable to do it all Home Equipment Nebulizer, Other: BP Machine Number of Stairs Inside 1 Number of Stairs Outside 1 04/24/22 Lunch Percent 100 04/24/22 Personal Care Provided Bed bath, Diaper/Brief changed, Gown change, Linen change, Lotion, Anca care 04/23/22 Activity Status ADL Up to toilet 04/23/22 Dinner Percent 100 04/23/22 Breakfast Percent 100 04/23/22 Family Member Travel History No recent t ravel Recent Travel History No recent travel Other exposure to Infectious Disease Exp osure to respiratory illness of unknown etiology Immunizations Given and Recorded Vaccine Date Status Refusal Reason pneumococcal 23-polyvalent vaccine 1 09/23/21 Bc rded pneumococcal 23-polyvalent vaccine 02/13/08 Record ed [id number] (booster only) vacc 09/23/21 Recorded [id number] (booster only) vacc 07/09/20 Recorded influenza, unspecified [...] rded zoster vaccine live 01/22/13 Recorded Novel [id number], all formulation 04/29/09 Recorded pneumococcal 7-valent vaccine 04/09/00 Recorded Not Given Vaccine Date Status Refusal Reason Td(adult) unspecified formulation 3 04/27/20 Not G iven Patient Refuses 1Result Comment: [facility] 2Result Comment: 1st vaccine 3Result Comment: Last Modified by Azra Dykes, Zone Manager 04-27-2020, 11:54 Medications !-DuoNeb 0.5 mg-2.5 mg/3 mL inhalation solution 3 mL, NEB, QID, # 120 EA, 0 Refill(s), Pharmacy: [facility], 157, cm, 04/21/22 4:43:00 EST, Height/Length Dosing, 122.47, kg, 04/21/22 4:43:00 EST, Weight Dosing Start Date: 04/21/22 Status: Ordered 1 nebulizer machine 1 nebulizer machine, asthma 493.9 and copd exacerbation J44.1, nebulizers treatement qid and q3-4h prn, Supply, See instructions, # 1 EA, 0 Refill(s) Start Date: 04/21/22 Status: Ordered Acidophilus oral capsule 0 Refill(s) Start Date: 10/27/21 Status: Ordered Advair Diskus 500 mcg-50 mcg inhalation powder 1 puffs, Inhale, BID, # 28 EA, 4 Refill(s), Pharmacy: [facility], 155, cm, 09/23/21 4:52:00 EDT, Height/Length Dosing, 125, kg, 09/23/21 4:52:00 EDT, Weight Dosing Start Date: 11/24/21 Status: Ordered Albuterol (Eqv-ProAir HFA) 90 mcg/inh inhalation aerosol 180 mcg 2 puffs, Inhale, every 4 hr, PRN as needed for wheezing, # 8.5 g, 2 Refill(s), Pharmacy: [facility], 155, cm, 09/23/21 4:52:00 EDT, Height/Length Dosing, 125, kg, 09/23/21 4:52:00 EDT, Weight Dosing Start Date: 11/21/21 Status: Ordered albuterol 2.5 mg/3 mL (0.083%) inhalation solution 2.5 mg = 3 mL, NEB, every 4 hr, PRN as needed for wheezing, # 180 mL, 3 Refill(s), Pharmacy: [facility], 157, cm, 04/21/22 4:43:00 EST, Height/Length Dosing, 122.47, kg, 04/21/22 4:43:00 EST, Weight Dosing Start Date: 04/21/22 Status: Ordered amoxicillin 500 mg oral capsule 2,000 mg = 4 cap, Oral, Once, Take one hr prior to dental procedure., # 4 cap, 0 Refill(s) Start Date: 10/27/21 Status: Ordered aspirin 81 mg oral delayed release tablet 81 mg = 1 tab, Oral, Daily, # 90 tab, 0 Refill(s) Start Date: 10/27/21 Status: Ordered Azo-Standard 400 mg =, Oral, Patient reports once a day, (AZO YEAST)., 0 Refill(s) Start Date: 04/19/22 Status: Ordered benzonatate 100 mg oral capsule 100 mg = 1 cap, Oral, TID, PRN as needed for cough, # 42 cap, 0 Refill(s), Pharmacy: [facility], 157, cm, 04/17/22 0:36:00 EST, Height/Length Dosing, 124.8, kg, 04/17/22 0:36:00 EST, WeightDosing Start Date: 04/19/22 Stop Date: 05/03/22 Status: Ordered buPROPion 300 mg/24 hours (XL) oral tablet, extended release 300 mg = 1 tab, Oral, Daily, # 90 tab, 2 Refill(s), Pharmacy: [facility], 155, cm, 09/23/21 4:52:00 EDT, [...] Daily, # 90 tab, 2 Refill(s), Pharmacy: [facility], 155, cm, 09/23/21 4:52:00 EDT, Height/Length Dosing, 125, kg, 09/23/21 4:52:00 EDT, Weight Dosing Start Date: 11/21/21 Status: Ordered loperamide 2 mg oral capsule 2 mg = 1 cap, Oral, TID, PRN as needed for loose stool, # 270 cap, 1 Refill(s), Pharmacy: [facility], 155, cm, 09/23/21 4:52:00 EDT, Height/Length Dosing, 125, kg, 09/23/21 4:52:00 EDT, Weight Dosing Start Date: 11/21/21 Status: Ordered naproxen 500 mg oral tablet 500 mg = 1 tab, Oral, BID, # 60 tab, 1 Refill(s), Pharmacy: [facility], 155,cm, 09/23/21 4:52:00 EDT, Height/Length Dosing, 125, kg, 09/23/21 4:52:00 EDT, Weight Dosing Start Date: 11/21/21 Status: Ordered Nyamyc 100,000 units/g topical powder See Instructions, Topical BID as needed for yeast, # 30 g, 0 Refill(s), Pharmacy: [facility], 155, cm, 09/23/21 4:52:00 EDT, Height/Length Dosing, 125, kg, 09/23/21 4:52:00 EDT, Weight Dosing Start Date: 11/21/21 Status: Ordered predniSONE 20 mg oral tablet 60 mg = 3 tab, Oral, Daily, 3 tablets for 3 days followed by 2 tabs for 3 days followed by 1 tab for 3 days with food or milk, # 18 tab, 0 Refill(s), Pharmacy: [facility], 157, cm, 234:43:00 EST, Height/Length Dosing, 122.47, kg, ... Start Date: 04/21/22 Status: Ordered sulfamethoxazole-trimethoprim 800 mg-160 mg oral tablet 1 tab, Oral, BID, Correction of duration and dispensed tablets. Drink plenty of fluids., # 20 tab, 0 Refill(s), Pharmacy: [facility], 157, cm, 04/22/22 20:46:00 EST, Height/Length Dosing, 122.47, kg, 04/22/22 20:46:00 EST, Weight Dosing Start Date: 04/24/22 Stop Date: 05/04/22 Status: Ordered torsemide 10 mg oral tablet 10 mg = 1 tab, Oral, Daily, # 30 tab, 0 Refill(s), Pharmacy: [facility], 157, cm, 04/17/22 0:36:00 EST, Height/Length Dosing, 124.8, kg, 04/17/22 0:36:00 EST, Weight Dosing Start Date: 04/19/22 Status: Ordered triamcinolone 0.1% topical cream 1 che, Topical, TID, PRN not specified, Apply to affected areas as needed., # 30 g, 0 Refill(s), Pharmacy: [facility], 155, cm, 09/23/21 4:52:00 EDT, Height/Length Dosing, 125,kg, 09/23/21 4:52:00 EDT, Weight Dosing Start Date: 11/21/21 Status: Ordered Mental Status 04/23/22 Eye Opening Response Shaunna Spontaneous ly Best Verbal Response [place] Oriented Best Motor Response Shaunna Obeys comman ds Shaunna Coma Score 15 Problem List Condition Confirmation Course Effective Dates Status Health Status Informant Acute diastolic heart failure Confirmed Active Anemia following acute postoperative blood loss Confirmed 01/25/21 Active Asthma 1 Confirmed Active Body mass index 40+ - severely obese Confirmed 02/14/18 Active Candidiasis of vulva Confirmed Active Contact dermatitis Confirmed Active Cough 2 Confirmed Active Cyanosis Confirmed Active Depressive disorder Confirmed Active Genital lichen sclerosus Confirmed 12/06/17 Active Hip joint prosthesis present Confirmed 01/19/21 Active History of right total knee replacement Confirmed 01/20/16 Active History of total hip arthroplasty Confirmed 02/14/18 Active Hyperlipidemia Confirmed Active HLD (hyperlipidemia) Confirmed Active Hypersomnia Confirmed Active Hypertensive disorder Confirmed Active HTN (hypertension) Confirmed Active Idiopathic osteoarthritis Confirmed Active Impaired renal function disorder 3 Confirmed 03/22/18 Active Intestinal disaccharidase deficiency Confirmed Active Morbid obesity Confirmed Active Osteoarthritis of left hip joint Confirmed 08/09/17 Active Pain of left hip joint Confirmed Active Peripheral venous insufficiency Confirmed Active Postmenopausal state Confirmed Active Renal impairment Confirmed 09/13/10 Active Restless legs Confirmed Active Restless leg syndrome Confirmed Active Severe obesity Confirmed Active Shoulder [...] a Covid PCR test this afternoon. 3per [facility] [place] Procedures Procedure Date Related Diagnosis [...] in 2013 Results Laboratory List Name Date Glucose POCT 04/24/22 Glucose POCT 04/24/22 Basic Metabolic Panel 04/24/22 CBC w/ Diff 04/24/22 .Manual Differential (NCTY) 04/24/22 Glucose POCT 04/23/22 Urinalysis Microscopic 04/23/22 Urinalysis with Micro if Indicated and C ulture if Indicated 04/23/22 Basic Metabolic Panel 04/23/22 CBC w/ Diff 04/23/22 Hemoglobin A1c 04/23/22 Magnesium Level 04/23/22 .Manual Differential (NCTY) 04/23/22 .Manual Differential (NCTY) 04/22/22 Basic Metabolic Panel 04/22/22 CBC w/ Diff 04/22/22 NT- Pro BNP 04/22/22 Troponin-I 04/22/22 Most recent to oldest [Reference Range]: 1 2 3 WBC [5.0-10.0 x10^3/mcL] 10.4 x10^3/mcL *HI* (04/24/22 5:46 AM) 9.0 x10^3/mcL (04/23/22 7:31 AM) 11.6 x10^3/mcL *HI* (04/22/22 8:57 PM) RBC [4.1-5.3 x10^6/mcL] 4.4 x10^6/mcL (04/24/22 5:46 AM) 4.3 x10^6/mcL (04/23/22 7:31 AM) 4.3 x10^6/mcL (04/22/22 8:57 PM) Segs Man [40-75 %] 88 % *HI* (04/24/22 5:46 AM) 88 % *HI* (04/23/22 7:31 AM) 89 % *HI* (04/22/22 8:57 PM) Lymph Man [20-50 %] 10 % *LOW* (04/24/22 5:46 AM) 7 % *LOW* (04/23/22 7:31 AM) 9 % *LOW* (04/22/22 8:57 PM) [place] Man 2 % *NA* (04/24/22 5:46 AM) 3 % *NA* (04/23/22 7:31 AM) 2 % *NA* (04/22/22 8:57 PM) Eos Man 0 % *NA* (04/24/22 5:46 AM) 0 % *NA* (04/23/22 7:31 AM) 0 % *NA* (04/22/22 8:57 PM) BUN [7-18 mg/dL] 21 mg/dL *HI* (04/24/22 5:46 AM) 18 mg/dL (04/23/22 7:31 AM) 18 mg/dL (04/22/22 8:57 PM) Glucose POC [74-106 mg/dL] 367 mg/dL *CRIT* (04/24/22 11:21 AM) 230 mg/dL *HI* (04/24/22 8:25 AM) 274 mg/dL *HI* (04/23/22 8:02 PM) UA Color Pale Yellow (04/23/22 4:25 PM) UA WBC [0-3] 0-3 (04/23/22 4:25 PM) Glucose Level [74-106 mg/dL] 234 mg/dL *HI* (04/24/22 5:46 AM) 204 mg/dL *HI* (04/23/22 7:31 AM) 234 mg/dL *HI* (04/22/22 8:57 PM) Lymph, Atyp Man 2 % *NA* (04/23/22 7:31 AM) Potassium Level [3.5-5.1 mmol/L] 3.8 mmol/L (04/24/22 5:46 AM) 4.3 mmol/L (04/23/22 7:31 AM) 5.0 mmol/L (04/22/22 8:57 PM) MCV [80.0-96.0] 94.1 (04/24/22 5:46 AM) 95.6 (04/23/22 7:31 AM) 97.0 *HI* (04/22/22 8:57 PM) UA Urobilinogen Normal (04/23/22 4:25 PM) RBC Morph Normal (04/24/22 5:46 AM) Normal (04/23/22 7:31 AM) Normal (04/22/22 8:57 PM) UA Bili [Negative] Negative (04/23/22 4:25 PM) UA Ketones Negative (04/23/22 4:25 PM) MCHC [31.0-35.0 g/dL] 33.6 g/dL (04/24/22 5:46 AM) 33.0 g/dL (04/23/22 7:31 AM) 32.5 g/dL (04/22/22 8:57 PM) Troponin-I [0.0-51.4 pg/mL] 23.6 pg/mL (04/22/22 8:57 PM) Sodium Level [136-145 mmol/L] 137 mmol/L (04/24/22 5:46 AM) 139 mmol/L (04/23/22 7:31 AM) 139 mmol/L (04/22/22 8:57 PM) UA RBC [0-2] 0-2 (04/23/22 4:25 PM) UA Leuk Est Negative (04/23/22 4:25 PM) UA Nitrite Positive *ABN* (04/23/22 4:25 PM) UA Glucose [Negative] 3+ *ABN* (04/23/22 4:25 PM) Hct [37.0-47.0 %] 41.4 % (04/24/22 5:46 AM) 41.2 % (04/23/22 7:31 AM) 41.5 % (04/22/22 8:57 PM) UA Bacteria Moderate /HPF *ABN* (04/23/22 4:25 PM) Calcium Level [8.5-10.1 mg/dL] 9.0 mg/dL (04/24/22 5:46 AM) 8.9 mg/dL (04/23/22 7:31 AM) 8.8 mg/dL (04/22/22 8:57 PM) UA Protein Negative (04/23/22 4:25 PM) MCH [26.0-32.0 pg] 31.6 pg (04/24/22 5:46 AM) 31.6 pg (04/23/22 7:31 AM) 31.5 pg (04/22/22 8:57 PM) Magnesium Level [1.8-2.4 mg/dL] 1.9 mg/dL (04/23/22 7:31 AM) Hgb [12.0-16.0 g/dL] 13.9 g/dL (04/24/22 5:46 AM) 13.6 g/dL (04/23/22 7:31 AM) 13.5 g/dL (04/22/22 8:57 PM) UA Blood 2+ *ABN* (04/23/22 4:25 PM) UA Mucous None Seen /HPF (04/23/22 4:25 PM) Band Man [0-5 %] 0 % (04/24/22 5:46 AM) 0 % (04/23/22 7:31 AM) 0 % (04/22/22 8:57 PM) UA Spec Grav 1.015 *NA* (04/23/22 4:25 PM) Platelets [130-450 x10^3/mcL] 278 x10^3/mcL (04/24/22 5:46 AM) 251 x10^3/mcL (04/23/22 7:31 AM) 251 x10^3/mcL (04/22/22 8:57 PM) CO2 [21-32 mmol/L] 34 mmol/L *HI* (04/24/22 5:46 AM) 32 mmol/L (04/23/22 7:31 AM) 31 mmol/L (04/22/22 8:57 PM) UA Squam Epithelial [None Seen] Rare (04/23/22 4:25 PM) UA pH 6.0 *NA* (04/23/22 4:25 PM) eGFR Non-AA [>=60] 59 *LOW* (04/24/22 5:46 AM) 67 (04/23/22 7:31 AM) 49 *LOW* (04/22/22 8:57 PM) eGFR AA [>=60] 59 *LOW* (04/24/22 5:46 AM) 67 (04/23/22 7:31 AM) 49 *LOW* (04/22/22 8:57 PM) UA Appear Hazy *ABN* (04/23/22 4:25 PM) Hemoglobin A1c [4.0-6.0 %] 6.6 % *HI* (04/23/22 7:31 AM) NT-proBNP [0-125 pg/mL] 530 pg/mL *HI* (04/22/22 8:57 PM) Chloride Level [98-107 mmol/L] 96 mmol/L *LOW* (04/24/22 5:46 AM) 99 mmol/L (04/23/22 7:31 AM) 103 mmol/L (04/22/22 8:57 PM) RDW-CV [11.7-17.0 %] 13.9 % (04/24/22 5:46 AM) 14.2 % (04/23/22 7:31 AM) 14.6 % (04/22/22 8:57 PM) UA Culture Ind?. Indicated (04/23/22 4:25 PM) Abs Neut Man 9.2 x10^3/mcL *NA* (04/24/22 5:46 AM) 7.9 x10^3/mcL *NA* (04/23/22 7:31 AM) 10.3 x10^3/mcL *NA* (04/22/22 8:57 PM) Creatinine Level [0.55-1.02 mg/dL] 1.02 mg/dL (04/24/22 5:46 AM) 0.91 mg/dL (04/23/22 7:31 AM) 1.18 mg/dL *HI* (04/22/22 8:57 PM) Baso Man [0-1 %] 0 % (04/24/22 5:46 AM) 0 % (04/23/22 7:31 AM) 0 % (04/22/22 8:57 PM) Orders for Microbiology Reports Name Date Urine Culture 04/23/22 Microbiology Reports TEST:Urine Culture STATUS:Auth (Verified) BODY SITE: SOURCE:Urine COLLECTED DATE/TIME:04/23/22 4:25 PM FINAL REPORT >100,000 cfu/ml Escherichia coli ORGANISM:Escherichia coli Vital Signs Most recent to oldest [Reference Range]: 1 2 3 4 Temperature Temporal Artery [36-38 Deg C] 36.7 Deg C (04/24/22 10:28 AM) 36.6 Deg C (04/24/22 6:33 AM) 35.9 Deg C *LOW* (04/24/22 3:12 AM) Peripheral Pulse Rate [60-100 bpm] 84 bpm (04/24/22 10:28 AM) 74 bpm (04/24/22 6:33 AM) 87 bpm (04/24/22 3:12 AM) 83 bpm (04/24/22 3:12 AM) Heart Rate Monitored [60-100 bpm] 80 bpm (04/22/22 11:58 PM) 84 bpm (04/22/22 11:55 PM) 94 bpm (04/22/22 10:39 PM) Respiratory Rate [12-24 br/min] 18 br/min (04/24/22 10:28 AM) 18 br/min (04/24/22 6:33 AM) 18 br/min (04/24/22 3:12 AM) 18 br/min (04/24/22 3:12 AM) Blood Pressure [90-140/60-90 mmHg] 136/71mmHg (04/24/22 10:28 AM) 113/55mmHg (04/24/22 6:33 AM) 151/84mmHg *HI* (04/24/22 3:12 AM) Mean Arterial Pressure Cuff 105 mmHg (04/24/22 3:12 AM) 92 mmHg (04/23/22 11:47 PM) 101 mmHg (04/23/22 10:28 PM) Blood Pressure Location Right arm (04/24/22 10:28 AM) Right arm (04/24/22 6:33 AM) Right arm (04/24/22 3:12 AM) Blood Pressure Method Automatic (04/24/22 10:28 AM) Automatic (04/24/22 6:33 AM) Automatic (04/24/22 3:12 AM) Weight 119.9 kg (04/24/22 6:33 AM) 121.4 kg (04/23/22 7:22 AM) 122 kg (04/23/22 6:11 AM) Weight Dosing 122.47 kg (04/22/22 8:46 PM) Usual Weight 124 kg (04/23/22 12:58 AM) Height 157.48 cm (04/23/22 12:42 AM) 157.000 cm (04/22/22 8:36 PM) Height/Length Dosing 157.000 cm (04/22/22 8:46 PM) Body Mass Index 50.000 kg/m2 (04/22/22 8:36 PM) Social History Social History Type Response Tobacco Former tobacco user Tobacco Use:. Sex Female Hospital Discharge Instructions Patient Education 04/24/2022 12:36:16 Asthma, Adult Asthma, Adult Asthma is a long-term (chronic) condition that causes recurrent episodes in which the airways become tight and narrow. The airways are the passages that lead from the nose and mouth down into the lungs. Asthma episodes, also called asthma attacks, can cause coughing, wheezing, shortness of breath, and chest pain. The airways can also fill with mucus. During an attack, it can be difficult to breathe. Asthma attacks can range from minor to life threatening. Asthma cannot be cured, but medicines and lifestyle changes can help control it and treat acute attacks. What are the causes? This condition is believed to be caused by inherited (genetic) and environmental factors, but its exact cause is not known. There are many things that can bring on an asthma attack or make asthma symptoms worse (triggers). Asthma triggers are different for each person. Common triggers include: ??? Mold. ??? Dust. ??? Cigarette smoke. ??? Cockroaches. ??? Things that can cause allergy symptoms (allergens), such as animal dander or pollen from trees or grass. ??? Air pollutants such as household mill operator, wood smoke, smog, or chemical odors. ??? Cold air, weather changes, and winds (which increase molds and pollen in the air). ??? Strong emotional expressions such as crying or laughing hard. ??? Stress. ??? Certain medicines (such as aspirin) or types of medicines (such as beta-blockers). ??? Sulfites in foods and drinks. Foods and drinks that may contain sulfites include dried fruit, potato chips, and sparkling grape juice. ??? Infections or inflammatory conditions such as the flu, a cold, or inflammation of the nasal membranes (rhinitis). ??? Gastroesophageal reflux disease (GERD). ??? Exercise or strenuous activity. What are the signs or symptoms? Symptoms of this condition may occur right after asthma is triggered or many hours later. Symptoms include: ??? Wheezing. This can sound like whistling when you breathe. ??? Excessive nighttime or starbucks clerk coughing. ??? Frequent or severe coughing with a common cold. ??? Chest tightness. ??? Shortness of breath. ??? Tiredness (fatigue) with minimal activity. How is this diagnosed? This condition is diagnosed based on: ??? Your medical history. ??? A physical exam. ??? Tests, which may include: ??? Lung function studies and pulmonary studies (spirometry). These tests can evaluate the flow of air in your lungs. ??? Allergy tests. ??? Imaging tests, such as X-rays. How is this treated? There is no cure for this condition, but treatment can help control your symptoms. Treatment for asthma usually involves: ??? Identifying and avoiding your asthma triggers. ??? Using medicines to control your symptoms. Generally, two types of medicines are used to treat asthma: ??? Controller medicines. These help prevent asthma symptoms from occurring. They are usually takenevery day. ??? Fast-acting reliever or rescue medicines. These quickly relieve asthma symptoms by widening thenarrow and tight airways. They are used as needed and provide short-term relief. ??? Using supplemental oxygen. This may be needed during a severe episode. ??? Using other medicines, such as: ??? Allergy medicines, such as antihistamines, if your asthma attacks are triggered by allergens. ??? Immune medicines (immunomodulators). These are medicines that help control the immune system. ??? Creating an asthma action plan. An asthma action plan is a written plan for managing and treating your asthma attacks. This plan includes: ??? A list of your asthma triggers and how to avoid them. ??? Information about when medicines should be taken and when their dosage should be changed. ??? Instructions about using a device called a peak flow meter. A peak flow meter measures how wellthe lungs are working and the severity of your asthma. It helps you monitor your condition. Follow these instructions at home: Controlling your home environment Control your home environment in the following ways to help avoid triggers and prevent asthma attacks: ??? Change your heating and air conditioning filter regularly. ??? Limit your use of fireplaces and wood stoves. ??? Get rid of pests (such as roaches and mice) and their droppings. ??? Throw away plants if you see mold on them. ??? Clean floors and dust surfaces regularly. Use unscented cleaning products. ??? Try to have someone else vacuum for you regularly. Stay out of rooms while they are being vacuumed and for a short while afterward. If you vacuum, use a dust mask from a hardware store, a double-layered or microfilter vacuum truck car and bus cleaner bag, or a vacuum truck car and bus cleaner with a HEPA filter. ??? Replace carpet with wood, tile, or vinyl christine. Carpet can trap dander and dust. ??? Use allergy-proof pillows, mattress covers, and box spring covers. ??? Keep your bedroom a trigger-free room. ??? Avoid pets and keep windows closed when allergens are in the air. ??? Wash beddings every week in hot water and dry them in a dryer. ??? Use blankets that are made of polyester or cotton. ??? Clean bathrooms and vasyl with bleach. If possible, have someone repaint the [place] in these rooms with mold-resistant paint. Stay out of the rooms that are being cleaned and painted. ??? Wash your hands often with soap and water. If soap and water are not available, use hand slide fastener repairer. ??? Do not allow anyone to smoke in your home. General instructions ??? Take [id number] and prescription medicines only as told by your health care provider. ??? Speak with your health care provider if you have questions about how or when to take the medicines. ??? Make note if you are requiring more frequent dosages. ??? Do not use any products that contain nicotine or tobacco, such as cigarettes and e-cigarettes. If you need help quitting, ask your health care provider. Also, avoid being exposed to secondhand smoke. ??? Use a peak flow meter as told by your health care provider. Record and keep track of the readings. ??? Understand and use the asthma action plan to help minimize, or stop an asthma attack, without needing to seek medical care. ??? Make sure you stay up to date on your yearly vaccinations as told by your health care provider.This may include vaccines for the flu and pneumonia. ??? Avoid outdoor activities when allergen counts are high and when air quality is low. ??? Wear a ski mask that covers your nose and mouth during outdoor winter activities. Exercise indoors on cold days if you can. ??? Warm up before exercising, and take time for a cool-down period after exercise. ??? Keep all follow-up visits as told by your health care provider. This is important. Where to find more information ??? For information about asthma, turn to the Centers for Disease Control and Prevention at www.cdc.gov/asthma/faqs ??? For air quality information, turn to [employer] at airIWTw.gov Contact a health care provider if: ??? You have wheezing, shortness of breath, or a cough even while you are taking medicine to prevent attacks. ??? The mucus you cough up (sputum) is thicker than usual. ??? Your sputum changes from clear or white to yellow, green, hendricks, or bloody. ??? Your medicines are causing side effects, such as a rash, itching, swelling, or trouble breathing. ??? You need to use a reliever medicine more than 2???3 times a week. ??? Your peak flow reading is still at 50???79% of your personal best after following your action plan for 1 hour. ??? You have a fever. Get help right away if: ??? You are getting worse and do not respond to treatment during an asthma attack. ??? You are short of breath when at rest or when doing very little physical activity. ??? You have difficulty eating, drinking, or talking. ??? You have chest pain or tightness. ??? You develop a fast heartbeat or palpitations. ??? You have a bluish color to your lips or fingernails. ??? You are light-headed or dizzy, or you faint. ??? Your peak flow reading is less than 50% of your personal best. ??? You feel too tired to breathe normally. Summary ??? Asthma is a long-term (chronic) condition that causes recurrent episodes in which the airways become tight and narrow. These episodes can cause coughing, wheezing, shortness of breath, and chest pain. ??? Asthma cannot be cured, but medicines and lifestyle changes can help control it and treat acuteattacks. ??? Make sure you understand how to avoid triggers and how and when to use your medicines. ??? Asthma attacks can range from minor to life threatening. Get help right away if you have an asthma attack and do not respond to treatment with your usual rescue medicines. This information is not intended to replace advice given to you by your health care provider. Make sure you discuss any questions you have with your health care provider. Document Revised: 12/24/2020 Document Reviewed: 07/28/2020 [employer] Patient Education ?? 2021 [employer]. 04/24/2022 12:36:03 Heart Failure, Self-Care Heart Failure, Self-Care Heart failure is a serious condition. The following information explains the things you need to do to take care of yourself after a heart failure diagnosis. You may be asked to change your diet, takecertain medicines, and make other lifestyle changes in order to stay as healthy as possible. Your health care provider may also give you more specific instructions. If you have problems or questions,contact your health care provider. What are the risks? Having heart failure puts you at higher risk for certain problems. These problems can get worse if you do not take good care of yourself. Problems may include: ??? Damage to the kidneys, liver, or lungs. ??? Malnutrition. ??? Abnormal heart rhythms. ??? Blood clotting issues that could cause a stroke. Supplies needed: ??? Scale for monitoring weight. ??? Blood pressure monitor. ??? Notebook. ??? Medicines. How to care for yourself when you have heart failure Medicines Take [id number]-[id number] and prescription medicines only as told by your health care provider. Medicines reduce the workload of your heart, slow the progression of heart failure, and improve symptoms. Take your medicines every day. ??? Do not stop taking your medicine unless your health care provider tells you to do so. ??? Do not skip any dose of medicine. ??? Refill your prescriptions before you run out of medicine. ??? Talk with your health care provider if you cannot afford your medicines. Eating and drinking ??? Eat heart-healthy foods. Talk with a dietitian to make an eating plan that is right for you. ??? Limit salt (sodium) if told by your health care provider. Sodium restriction may reduce symptoms of heart failure. Ask a dietitian to recommend heart-healthy seasonings. ??? Use healthy cooking methods instead of frying. Healthy methods include roasting, grilling, broiling, baking, poaching, steaming, and stir-frying. ??? Choose foods that contain no trans fat and are low in saturated fat and cholesterol. Healthy choices include fresh or frozen fruits and vegetables, fish, lean meats, legumes, fat-free or low-fat dairy products, and whole-grain or high-fiber foods. ??? Limit your fluid intake, if directed by your health care provider. Fluid restriction may reducesymptoms of heart failure. Alcohol use ??? Do not drink alcohol if: ??? Your health care provider tells you not to drink. ??? Your heart was damaged by alcohol, or you have severe heart failure. ??? You are , may be , or are planning to become . ??? If you drink alcohol: ??? Limit how much you have to: ??? 0???1 drink a day for women. ??? 0???2 drinks a day for men. ??? Know how much alcohol is in your drink. In the [place] one drink equals one 12 oz bottle of beer (355 mL), one 5 oz glass of wine (148 mL), or one 1?? oz glass of hard liquor (44 mL). Lifestyle ??? Do not use any products that contain nicotine or tobacco. These products include cigarettes, chewing tobacco, and vaping devices, such as e-cigarettes. If you need help quitting, ask your health care provider. ??? Do not use nicotine gum or patches before talking to your health care provider. ??? Do not use illegal drugs. ??? Work with your health care provider to safely reach the right body weight. ??? Do physical activity if told by your health care provider. Talk to your health care provider before you begin an exercise if: ??? You are an older adult. ??? You have severe heart failure. ??? Learn to manage stress. If you need help to do this, ask your health care provider. ??? Participate in or seek physical rehabilitation as needed to keep or improve your independence and quality of life. ??? Participate in a cardiac rehabilitation program, which is a treatment program to improve your health and well-being through exercise training, education, and counseling. ??? Plan rest periods when you get tired. Monitoring important information ??? Weigh yourself every day. This will help you to notice if too much fluid is building up in yourbody. ??? Weigh yourself every morning after you urinate and before you eat breakfast. ??? Wear the same amount of clothing each time you weigh yourself. ??? Record your daily weight. Provide your health care provider with your weight record. ??? Monitor and record your pulse and blood pressure as told by your health care provider. Dealing with extreme temperatures ??? If the weather is extremely hot: ??? Avoid vigorous physical activity. ??? Use air conditioning or fans, or find a cooler location. ??? Avoid caffeine and alcohol. ??? Wear loose-fitting, lightweight, and light-colored clothing. ??? If the weather is extremely cold: ??? Avoid vigorous activity. ??? Layer your clothes. ??? Wear mittens or gloves, a hat, and a face covering when you go outside. ??? Avoid alcohol. Follow these instructions at home: ??? Stay up to date with vaccines. Pneumococcal and flu (influenza) vaccines are especially important in preventing infections of the airways. ??? Keep all follow-up visits. This is important. Contact a health care provider if you: ??? Gain 2???3 lb (1???1.4 kg) in 24 hours or 5 lb (2.3 kg) in a week. ??? Have increasing shortness of breath. ??? Are unable to participate in your usual physical activities. ??? Get tired easily. ??? Cough more than normal, especially with physical activity. ??? Lose your appetite or feel nauseous. ??? Have any swelling or more swelling in areas such as your hands, feet, ankles, or abdomen. ??? Are unable to sleep because it is hard to breathe. ??? Feel like your heart is beating quickly (palpitations). ??? Become dizzy or light-headed when you stand up. ??? Have feelings of depression or sadness. Get help right away if you: ??? Have trouble breathing. ??? Notice, or your family notices, a change in your awareness, such as having trouble staying awake or concentrating. ??? Have pain or discomfort in your chest. ??? Have an episode of fainting (syncope). These symptoms may represent a serious problem that is an emergency. Do not wait to see if the symptoms will go away. Get medical help right away. Call your local emergency services (911 in the [place] Do not drive yourself to the hospital. Summary ??? Heart failure is a serious condition. To care for yourself, you may be asked to change your diet, take certain medicines, and make other lifestyle changes. ??? Take your medicines every day. Do not stop taking them unless your health care provider tells you to do so. ??? Limit salt and eat heart-healthy foods, such as fresh or frozen fruits and vegetables, fish, lean meats, legumes, fat-free or low-fat dairy products, and whole-grain or high-fiber foods. ??? Ask your health care provider if you have any alcohol restrictions. You may have to stop drinking alcohol if you have severe heart failure. ??? Contact your health care provider if you notice problems, such as rapid weight gain or a fast heartbeat. Get help right away if you faint or have chest pain or trouble breathing. This information is not intended to replace advice given to you by your health care provider. Make sure you discuss any questions you have with your health care provider. Document Revised: 10/16/2020 Document Reviewed: 10/16/2020 [employer] Patient Education ?? 2021 [employer]. Follow Up Care 04/22/2022 20:36:07 With:Dandy Drisclol NP Address: [place] [phone] When:1 to 2 weeks Discharge instructions * Irena Feliciano: PERFORM Event Display: Discharge Instructions Authored Date: [id number] SURYA QUINTANA :1950 Age:72 years Sex:Female Visit Date:04/22/2022 Primary Care Physician: Dandy Driscoll NP Hospital Discharge Instructions We would like to thank you for allowing us to assist you with your healthcare needs. The following includes patient education materials and information regarding your injury/illness. After you leave the hospital, you may get your health information including your test results, physician notes and discharge information by accessing your Patient Portal. Your Next Steps Instructions From Your Care Team Call your primary care provider for: Temperature greater than 101F. Pain that does not go away. Persistent nausea, vomiting or constipation. Shortness of breath, with or without chest discomfort. Weight gain of 3 or more pounds per day. Discharge Orders Discharge Activity Restrictions, No Restrictions Discharge Diet Instruction, Consistent Carbohydrate [id number] corey, Cardiac, heart healthy with diabetic ADA 1800-calorie diet Discharge Follow Up Instructions, 04/24/22 13:28:00 EST, When following are met: Other (please specify), Follow up with PCP within 2 weeks. Call for appointment Discharge Wound Care Instructions, Dry bandage wraps with V[facility] nurses to assess wound and wound dressings at home. Scheduled Future Appointments 2022 10:40 AM EST ?? Sunday 1:40 PM EDT ?? Follow Up Appointments Follow Up with??Dandy Driscoll WINDOW CLERK When:??Within 1 to 2 weeks Where: [address] [address]- Medications What How Much When Why Instructions Next Dose New sulfamethoxazole-trimethoprim (sulfamethoxazole-trimethoprim 800 mg-160 mg oral tablet) 1 tab Oral (given by mouth) 2 times a day Duration: 10 Days Correction of duration and dispensed tablets. Drink plenty of fluids. ?? Pickup at [id number] Changed naproxen (naproxen 500 mg oral tablet) 1 tab Oral (given by mouth) 2 times a day Unchanged albuterol (Albuterol (Eqv-ProAir HFA) 90 mcg/ inh inhalation aerosol) 2 Puffs Inhale (breathe in) Every 4 hours as needed for as needed for wheezing Asthma Unchanged albuterol (albuterol 2.5 mg/ 3 mL (0.083%) inhalation solution) 3 Milliliters Nebulized inhalation (inhale using nebulizer) Every 4 hours as needed for as needed for wheezing RSV infection COPD with exacerbation Cough Unchanged amoxicillin (amoxicillin 500 mg oral capsule) 4 Capsules Oral (given by mouth) Once Take one hr prior to dental procedure. ?? Unchanged aspirin (aspirin 81 mg oral delayed release tablet) 1 tab Oral (given by mouth) Every day Unchanged benzonatate (benzonatate 100 mg oral capsule) 1 Capsules Oral (given by mouth) 3 times a day as needed for as needed for cough Duration: 14 Days Unchanged buPROPion (buPROPion 300 mg/ 24 hours (XL) oral tablet, extended release) 1 tab Oral (given by mouth) Every day Anxiety Unchanged cannabidiol See instructions CBD Cream 3000 mg; apply as directed. ?? Unchanged cranberry (Cranberry oral tablet) 1 tab Oral (given by mouth) Every day Unchanged cyclobenzaprine 10 Milligrams Oral (given by mouth) 3 times a day as needed for not specified 1/ 2 to 1 tab as needed. ?? Unchanged Durable Medical Equipment for Prescription (1 nebulizer machine) See instructions RSV infection COPD with exacerbation Cough asthma 493.9 and copd exacerbation J44.1, nebulizers treatement qid and q3-4h prn ?? Unchanged fluticasone-salmeterol (Advair Diskus 500 mcg-50 mcg inhalation powder) 1 Puffs Inhale (breathe in) 2 times a day Asthma Unchanged ipratropium-albuterol (!-DuoNeb 0.5 mg-2.5 mg/ 3 mL inhalation solution) 3 Milliliters Nebulized inhalation (inhale using nebulizer) 4 times a day RSV infection COPD with exacerbation Cough Unchanged lactobacillus acidophilus (Acidophilus oral capsule) Unchanged lisinopril (lisinopril 10 mg oral tablet) 1 tab Oral (given by mouth) Every day Hypertensive disorder Unchanged loperamide (loperamide 2 mg oral capsule) 1 Capsules Oral (given by mouth) 3 times a day as needed for as needed for loose stool Unchanged nystatin topical (Nyamyc 100,000 units/ g topical powder) See instructions Yeast infection Topical BID as needed for yeast ?? Unchanged phenazopyridine (Azo-Standard) 400 Milligrams Oral (given by mouth) Patient reports once a day, (AZO YEAST). ?? Unchanged predniSONE (predniSONE 20 mg oral tablet) 3 tab Oral (given by mouth) Every day RSV infection COPD with exacerbation Cough 3 tablets for 3 days followed by 2 tabs for 3 days followed by 1 tab for 3 days with food or milk ?? Unchanged torsemide (torsemide 10 mg oral tablet) 1 tab Oral (given by mouth) Every day Unchanged triamcinolone topical (triamcinolone 0.1% topical cream) 1 Application Topical (on the skin) 3 times a day as needed for not specified Contact dermatitis due to plant Apply to affected areas as needed. ?? Pharmacy Information [id number]: [address], [place] [id number] [phone] Your Summary Your Care Team Admitting Physician - Joann Erazo NP Attending Physician - Mookie Kothari MD Primary Care Physician - Dandy Driscoll NP Your Diagnosis Asthma exacerbation, mild RSV (respiratory syncytial virus infection) Acute diastolic heart failure Acute kidney injury Hyperglycemia Venous stasis ulcers Hypertensive disorder UTI (urinary tract infection), bacterial Bacterial infection, unspecified Problems Ongoing - Any problem that you are currently receiving treatment for. 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 hip arthroplasty HLD (hyperlipidemia) HTN (hypertension) Hyperlipidemia Hypersomnia Hypertensive disorder Idiopathic osteoarthritis Impaired renal function disorder Intestinal disaccharidase deficiency Morbid obesity Osteoarthritis of left hip joint Pain of left hip joint Peripheral venous insufficiency Postmenopausal state Renal impairment Restless leg syndrome Restless legs Severe obesity Shoulder joint pain Spondylolisthesis Spondylosis Temporomandibular joint disorder Tracheobronchitis Urge incontinence of urine Tests Performed/Pending .Manual Differential (NCTY) Basic Metabolic Panel CBC w/ Diff Glucose POCT Hemoglobin A1c Magnesium Level NT- Pro BNP Troponin-I Urinalysis Microscopic Urinalysis with Micro if Indicated and Culture if Indicated Discharge Vitals Temperature??(Temporal Artery) 98.1 ??F (36.7 ??C) Heart Rate??(Peripheral) 84 Respiratory Rate?? 18 Blood Pressure?? 136/71?? Weight?? 264.38 lb (119.9 kg) Allergies ALCOHOL azithromycin??(Swollen face) meperidine??(Bewilderment) penicillins??(Swelling, Other) tetanus toxoids [employer] Asthma, Adult Asthma is a long-term (chronic) condition that causes recurrent episodes in which the airways become tight and narrow. The airways are the passages that lead from the nose and mouth down into the lungs. Asthma episodes, also called asthma attacks, can cause coughing, wheezing, shortness of breath, and chest pain. The airways can also fill with mucus. During an attack, it can be difficult to breathe. Asthma attacks can range from minor to life threatening. Asthma cannot be cured, but medicines and lifestyle changes can help control it and treat acute attacks. What are the causes? This condition is believed to be caused by inherited (genetic) and environmental factors, but its exact cause is not known. There are many things that can bring on an asthma attack or make asthma symptoms worse (triggers). Asthma triggers are different for each person. Common triggers include: ? Mold. ? Dust. ? Cigarette smoke. ? Cockroaches. ? Things that can cause allergy symptoms (allergens), such as animal dander or pollen from trees or grass. ? Air pollutants such as household mill operator, wood smoke, smog, or chemical odors. ? Cold air, weather changes, and winds (which increase molds and pollen in the air). ? Strong emotional expressions such as crying or laughing hard. ? Stress. ? Certain medicines (such as aspirin) or types of medicines (such as beta-blockers). ? Sulfites in foods and drinks. Foods and drinks that may contain sulfites include dried fruit, potato chips, and sparkling grape juice. ? Infections or inflammatory conditions such as the flu, a cold, or inflammation of the nasal membranes (rhinitis). ? Gastroesophageal reflux disease (GERD). ? Exercise or strenuous activity. What are the signs or symptoms? Symptoms of this condition may occur right after asthma is triggered or many hours later. Symptoms include: ? Wheezing. This can sound like whistling when you breathe. ? Excessive nighttime or starbucks clerk coughing. ? Frequent or severe coughing with a common cold. ? Chest tightness. ? Shortness of breath. ? Tiredness (fatigue) with minimal activity. How is this diagnosed? This condition is diagnosed based on: ? Your medical history. ? A physical exam. ? Tests, which may include: ? Lung function studies and pulmonary studies (spirometry). These tests can evaluate the flow of air in your lungs. ? Allergy tests. ? Imaging tests, such as X-rays. How is this treated? There is no cure for this condition, but treatment can help control your symptoms. Treatment for asthma usually involves: ? Identifying and avoiding your asthma triggers. ? Using medicines to control your symptoms. Generally, two types of medicines are used to treat asthma: ? Controller medicines. These help prevent asthma symptoms from occurring. They are usually taken every day. ? Fast-acting reliever or rescue medicines. These quickly relieve asthma symptoms by widening the narrow and tight airways. They are used as needed and provide short-term relief. ? Using supplemental oxygen. This may be needed during a severe episode. ? Using other medicines, such as: ? Allergy medicines, such as antihistamines, if your asthma attacks are triggered by allergens. ? Immune medicines (immunomodulators). These are medicines that help control the immune system. ? Creating an asthma action plan. An asthma action plan is a written plan for managing and treating your asthma attacks. This plan includes: ? A list of your asthma triggers and how to avoid them. ? Information about when medicines should be taken and when their dosage should be changed. ? Instructions about using a device called a peak flow meter. A peak flow meter measures how well thelungs are working and the severity of your asthma. It helps you monitor your condition. Follow these instructions at home: Controlling your home environment Control your home environment in the following ways to help avoid triggers and prevent asthma attacks: ? Change your heating and air conditioning filter regularly. ? Limit your use of fireplaces and wood stoves. ? Get rid of pests (such as roaches and mice) and their droppings. ? Throw away plants if you see mold on them. ? Clean floors and dust surfaces regularly. Use unscented cleaning products. ? Try to have someone else vacuum for you regularly. Stay out of rooms while they are being vacuumed and for a short while afterward. If you vacuum, use a dust mask from a [employer] store, a double-layered or microfilter vacuum truck car and bus cleaner bag, or a vacuum truck car and bus cleaner with a HEPA filter. ? Replace carpet with wood, tile, or vinyl christine. Carpet can trap dander and dust. ? Use allergy-proof pillows, mattress covers, and box spring covers. ? Keep your bedroom a trigger-free room. ? Avoid pets and keep windows closed when allergens are in the air. ? Wash beddings every week in hot water and dry them in a dryer. ? Use blankets that are made of polyester or cotton. ? Clean bathrooms and vasyl with bleach. If possible, have someone repaint the [place] in these rooms with mold-resistant paint. Stay out of the rooms that are being cleaned and painted. ? Wash your hands often with soap and water. If soap and water are not available, use hand slide fastener repairer. ? Do not allow anyone to smoke in your home. General instructions ? Take krdb-bes-dekcmeh and prescription medicines only as told by your health care provider. ? Speak with your health care provider if you have questions about how or when to take the medicines. ? Make note if you are requiring more frequent dosages. ? Do not use any products that contain nicotine or tobacco, such as cigarettes and e-cigarettes. If you need help quitting, ask your health care provider. Also, avoid being exposed to secondhand smoke. ? Use a peak flow meter as told by your health care provider. Record and keep track of the readings. ? Understand and use the asthma action plan to help minimize, or stop an asthma attack, without needing to seek medical care. ? Make sure you stay up to date on your yearly vaccinations as told by your health care provider. This may include vaccines for the flu and pneumonia. ? Avoid outdoor activities when allergen counts are high and when air quality is low. ? Wear a ski mask that covers your nose and mouth during outdoor winter activities. Exercise indoors on cold days if you can. ? Warm up before exercising, and take time for a cool-down period after exercise. ? Keep all follow-up visits as told by your health care provider. This is important. Where to find more information ? For information about asthma, turn to the Centers for Disease Control and Prevention at www.cdc.gov/asthma/faqs ? For air quality information, turn to [employer] at airIWTw.gov Contact a health care provider if: ? You have wheezing, shortness of breath, or a cough even while you are taking medicine to prevent attacks. ? The mucus you cough up (sputum) is thicker than usual. ? Your sputum changes from clear or white to yellow, green, hendricks, or bloody. ? Your medicines are causing side effects, such as a rash, itching, swelling, or trouble breathing. ? You need to use a reliever medicine more than 2???3 times a week. ? Your peak flow reading is still at 50???79% of your personal best after following your action plan for 1 hour. ? You have a fever. Get help right away if: ? You are getting worse and do not respond to treatment during an asthma attack. ? You are short of breath when at rest or when doing very little physical activity. ? You have difficulty eating, drinking, or talking. ? You have chest pain or tightness. ? You develop a fast heartbeat or palpitations. ? You have a bluish color to your lips or fingernails. ? You are light-headed or dizzy, or you faint. ? Your peak flow reading is less than 50% of your personal best. ? You feel too tired to breathe normally. Summary ? Asthma is a long-term (chronic) condition that causes recurrent episodes in which the airways become tight and narrow. These episodes can cause coughing, wheezing, shortness of breath, and chest pain. ? Asthma cannot be cured, but medicines and lifestyle changes can help control it and treat acute attacks. ? Make sure you understand how to avoid triggers and how and when to use your medicines. ? Asthma attacks can range from minor to life threatening. Get help right away if you have an asthma attack and do not respond to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 already been started on through the ED. ??Imaging did not reveal any pneumonia.?? Her lab did reveal hyperglycemia??with mildly elevated creatinine upon admission which resolved??and no significant electrolyte abnormalities with only mildly elevated WBC.?? Urine culture did grow E. coli and patient was placed on Bactrim DS. ??This also may help cover her??leg ulcers on the left??from chronic venous stasis.?? Physical exam was stable at discharge and patient would follow-up with Dandy Driscoll??especially while on Lasix watching labs closely for??electrolyte??abnormalities.?? She should consider treating her hyperglycemia??and??diabetes mellitus which is??not presently??on medical therapy. ??She refused insulin injections while in the hospital??when her blood sugars were elevated with??steroid treatment.?? She is a DNR/DNI. ?? Disposition:??Discharged home with home health services??care home to assess??and treat??venous stasis ulcers left leg, prognosis poor with patient having??poor home environment with increased fumes according to friends who visit??with patient being a hoarder,??she is DNR/DNI. ?? Greater than 30 minutes was spent on the day of discharge in coordinating care and arranging outpatient follow-up. ?? I certify that this patient is under my care and that I, or a nurse practitioner or physician's printing bindery assistant working with me, had a face to face encounter with this patient on: ?? I certify/re-certify that the above stated patient is homebound and upon completion of the face to face encounter, has a need/continued need for intermittent care home, physical therapy, and/orspeech or occupational therapy services in their home for their current diagnosis as outlined in their initial plan of care. These services will continue to be monitored by myself or another physician who will periodically review and update the plan of care as required. ?? Name of Community Physician who will monitor the patient's home health services:??Dandy Driscoll NP ?? Reason Intermittent [facility] Care Needed ?? residential services are required for assessment of the patient's Cardiovascular, Gastrointestinal, and Genitourinary systems due to:??CHF and RSV??pneumonitis ?? Additional body systems that are also affected include:??Venous stasis ulcers left leg ?? The patient is status post:??Exacerbation asthma??with CHF ?? With a history of:??Asthma ?? Please provide education on:??CHF with venous stasis ulcers, asthma management,??diabetic diet withhyperglycemia chronically not on treatment ?? Please continue to monitor vital signs and laboratory results, perform lab draws, as well as provide medication management. ?? Home Health Aides to assist with personal hygiene and ADL's:??N/A ?? Speech Language Pathology evaluation for patient status post:??N/A ?? Physical Therapy to complete a home safety evaluation. Provide gait, strength, and mobility training for the patient status post:??N/A ?? Occupational Therapy to complete a home safety evaluation, and provide ADL training for the patientstatus post:??N/A ?? Why is the patient homebound AND why is there an inability for the patient to leave home ?? The patient is status post:??Deconditioned and limited ambulatory ability ?? The patient cannot leave home secondary to:??Taxing effort ?? The patient requires the following equipment and an assist of one to leave home:??Arm??canes ?? My clinical findings above indicated that the following Home Health services are needed for this patient ?? Primary Services (establishing Medicare eligibility) ?? Prison:??Yes ?? Physical Therapy:??No ?? Speech Therapy:??No ?? Secondary Services (must accompany a Primary service) ?? Occupational Therapy:??No ?? Medical Social Work:??No ?? Home Health Aides:??No ? Physical Exam Vitals & Measurements T:??36.7?C ??(Temporal Artery)?? TMIN:??35.9?C ??(Temporal Artery)?? TMAX:??36.8?C ??(Temporal Artery)?? HR:??84??(Peripheral)?? RR:??18?? BP:??136/71?? SpO2:??93%?? WT:??119.9??kg?? PainScore:??0?? O2 Therapy:??Room air?? General: Alert and oriented,??morbidly obese?Mild??acute distress Eye: PERRL,??EOMI, sclera anicteric HENT: Normocephalic,??oropharynx with??poor dentition and??moist mucosa Neck: Supple, non-tender,?No??lymphadenopathy Lungs:??course thoughout with exp wheezing??and increased expiratory phase??with no??inspiratory??focalizing??crackles/rales??labored?? respiration Heart:?Normal?? rate,?Regular??rhythm,?Positive for??murmur grade 4/6,??harsh??systolic??no??edema Abdomen: Soft, non-tender, non-distended,?Normal?? bowel sounds,?No??masses Musculoskeletal:?Normal?? range of motion and strength,?No??tenderness,?No??swelling Skin:??wound on LLE??with chronic venous stasis changes of??both ankles, dry dressing??wrapping left leg Neurologic: Awake, alert and oriented??x3,??cranial nerves II through XII grossly intact, no focal??motor deficits Psychiatric: Cooperative, affect slightly anxious??with good eye contact,??mood normal, no abnormalthought processes, remote and recent memory intact Medications Inpatient !-DuoNeb 0.5 mg-2.5 mg/3 mL inhalation solution, 3 mL, NEB, QID acetaminophen, 1000 mg= 2 tab, Oral, every 6 hr, PRN Albuterol (Eqv-ProAir HFA) 90 mcg/inh inhalation aerosol, 2 inh, Inhale, every 4 hr RT, PRN albuterol 2.5 mg/3 mL (0.083%) inhalation solution, 2.5 mg= 3 mL, NEB, every 4 hr RT, PRN aspirin, 81 mg= 1 tab, Oral, Daily benzonatate, 100 mg= 1 cap, Oral, TID, PRN budesonide-formoterol 160 mcg-4.5 mcg/inh inhalation aerosol, 2 puff(s), Inhale, BID buPROPion, 300 mg= 2 tab, Oral, Daily cyclobenzaprine, 10 mg= 1 tab, Oral, TID, PRN dextromethorphan-guaifenesin 10 mg-100 mg/10 mL oral liquid, 10 mL, Oral, every 4 hr, PRN insulin lispro (HumaLog) correction- moderate, Moderate Scale, Subcutaneous, AC & bedtime lidocaine 1% injectable solution, 5 mg= 0.5 mL, Intradermal, As Directed, PRN lisinopril, 10 mg= 2 tab, Oral, Daily naproxen, 500 mg= 2 tab, Oral, BID, PRN Normal Saline Flush, 10 mL, IV Push, every 12 hr (nilesh) ondansetron, 4 mg= 2 mL, IV Push, every 6 hr, PRN polyethylene glycol 3350, 17 g= 1 packets, Oral, Daily, PRN senna, 8.6 mg= 1 tab, Oral, BID Sodium Chloride 0.9% 1,000 mL, 1000 mL, IV sulfamethoxazole-trimethoprim 800 mg-160 mg oral tablet, 1 tab, Oral, BID torsemide, 20 mg= 1 tab, Oral, Daily Home !-DuoNeb 0.5 mg-2.5 mg/3 mL inhalation solution, 3 mL, NEB, QID 1 nebulizer machine, See instructions Acidophilus oral capsule Advair Diskus 500 mcg-50 mcg inhalation powder, 1 puffs, Inhale, BID, 4 refills Albuterol (Eqv-ProAir HFA) 90 mcg/inh inhalation aerosol, 180 mcg= 2 puffs, Inhale, every 4 hr, PRN, 2 refills albuterol 2.5 mg/3 mL (0.083%) inhalation solution, 2.5 mg= 3 mL, NEB, every 4 hr, PRN, 3 refills amoxicillin 500 mg oral capsule, 2000 mg= 4 cap, Oral, Once aspirin 81 mg oral delayed release tablet, 81 mg= 1 tab, Oral, Daily Azo-Standard, 400 mg, Oral benzonatate 100 mg oral capsule, 100 mg= 1 cap, Oral, TID, PRN buPROPion 300 mg/24 hours (XL) oral tablet, extended release, 300 mg= 1 tab, Oral, Daily, 2 refills cannabidiol, See Instructions Cranberry oral tablet, 1 tab, Oral, Daily cyclobenzaprine, 10 mg, Oral, TID, PRN lisinopril 10 mg oral tablet, 10 mg= 1 tab, Oral, Daily, 2 refills loperamide 2 mg oral capsule, 2 mg= 1 cap, Oral, TID, PRN, 1 refills naproxen 500 mg oral tablet, 500 mg= 1 tab, Oral, BID, 1 refills Nyamyc 100,000 units/g topical powder, See Instructions predniSONE 20 mg oral tablet, 60 mg= 3 tab, Oral, Daily sulfamethoxazole-trimethoprim 800 mg-160 mg oral tablet, 1 tab, Oral, BID torsemide 10 mg oral tablet, 10 mg= 1 tab, Oral, Daily triamcinolone 0.1% topical cream, 1 che, Topical, TID, PRN Procedure/Surgical History ???Colonoscopy (10/25/2018)???Total arthroplasty of the left hip (02/13/2018)???Complete repair of right rotator cuff (01/07/2009)???Colonoscopy (08/12/2002)???Bilateral knee surgery (04/09/2001)???Procedure on left shoulder (04/09/2001)???Tubal ligation (04/09/1985)???Repair of patellar tendon (04/1968)???Dilatation and curettage Social History Alcohol Never Electronic Cigarette/Vaping Electronic Cigarette Use: Never. Employment/School Retired Home/Environment Lives with Alone. Substance Use Never Tobacco Former tobacco user Tobacco Use:. Lab Results Last 48 Hours?? Chemistry ? Event Name?? Event Result?? Date/Time?? Sodium Level 137 mmol/L 04/24/22 05:46:55 Potassium Level 3.8 mmol/L 04/24/22 05:46:55 Chloride Level 96 mmol/L??Low 04/24/22 05:46:55 CO2 34 mmol/L??High 04/24/22 05:46:55 BUN 21 mg/dL??High 04/24/22 05:46:55 Glucose Level 234 mg/dL??High 04/24/22 05:46:55 Creatinine Level 1.02 mg/dL 04/24/22 05:46:55 eGFR AA 59??Low 04/24/22 05:46:55 eGFR Non-AA 59??Low 04/24/22 05:46:55 Calcium Level 9 mg/dL 04/24/22 05:46:55 Hemoglobin A1c 6.6 %??High 04/23/22 07:31:43 Magnesium Level 1.9 mg/dL 04/23/22 07:31:43 Glucose POC 367 mg/dL??Critical 04/24/22 11:21:00 Troponin-I 23.6 pg/mL 04/22/22 20:57:00 NT-proBNP 530 pg/mL??High 04/22/22 20:57:00 ? Hematology ? Event Name?? Event Result?? Date/Time?? WBC 10.4 x10^3/mcL??High 04/24/22 05:46:55 RBC 4.4 x10^6/mcL 04/24/22 05:46:55 Hgb 13.9 g/dL 04/24/22 05:46:55 Hct 41.4 % 04/24/22 05:46:55 MCV 94.1 04/24/22 05:46:55 MCH 31.6 pg 04/24/22 05:46:55 MCHC 33.6 g/dL 04/24/22 05:46:55 RDW-CV 13.9 % 04/24/22 05:46:55 Platelets 278 x10^3/mcL 04/24/22 05:46:55 Segs Man 88 %??High 04/24/22 05:46:55 Lymph Man 10 %??Low 04/24/22 05:46:55 [place] Man 2 % 04/24/22 05:46:55 Eos Man 0 % 04/24/22 05:46:55 Baso Man 0 % 04/24/22 05:46:55 Band Man 0 % 04/24/22 05:46:55 Lymph, Atyp Man 2 % 04/23/22 07:31:43 Abs Neut Man 9.2 x10^3/mcL 04/24/22 05:46:55 RBC Morph Normal 04/24/22 05:46:55 ? Urinalysis ? Event Name?? Event Result?? Date/Time?? UA Color Pale Yello 04/23/22 16:25:00 UA Appear Hazy- Clinitek Abnormal 04/23/22 16:25:00 UA Glucose 3+ Abnormal 04/23/22 16:25:00 UA Bili NEGATIVE 04/23/22 16:25:00 UA Ketones NEGATIVE 04/23/22 16:25:00 UA Spec Grav 1.015 04/23/22 16:25:00 UA Blood 2+ Abnormal 04/23/22 16:25:00 UA pH 6.0 04/23/22 16:25:00 UA Protein NEGATIVE 04/23/22 16:25:00 UA Urobilinogen 0.2 Uro 04/23/22 16:25:00 UA Nitrite POSITIVE Abnormal 04/23/22 16:25:00 UA Leuk Est NEGATIVE 04/23/22 16:25:00 UA Culture Ind?. Indicated 04/23/22 16:25:00 UA WBC 0-3 04/23/22 16:25:00 UA RBC 0-2 04/23/22 16:25:00 UA Squam Epithelial Rare 04/23/22 16:25:00 UA Mucous None Seen 04/23/22 16:25:00 UA Bacteria Moderate Abnormal 04/23/22 16:25:00 ? Discharge Plan 1.??Asthma exacerbation, mild??J45.901 Patient will now return to her??weaning prednisone dose??especially with hyperglycemia worsened on steroids. ??She should consider treating diabetes more aggressively.?? She is not on oxygen??and ambulating without??extreme dyspnea at this time. 2.??RSV (respiratory syncytial virus infection)??B33.8 Slow recovery with increased secretions. ??Continue symptomatic care. 3.??Acute diastolic heart failure??I50.31 Continue Lasix as prescribed and follow-up with PCP??with labs as well??watching for??electrolyte abnormalities long-term. 4.??Acute kidney injury??N17.9 Resolved??with gentle hydration. 5.??Hyperglycemia??R73.9 Worsened on??steroids??to be followed up by his PCP and consider treating diabetes. 6.??Venous stasis ulcers??I83.009 Wound care with wraps and home health??care home care. 7.??Hypertensive disorder??I10 Stable on medical regimen. 8.??UTI (urinary tract infection), bacterial??N39.0 With urine culture growing E. coli and patient placed on Bactrim DS. ??She also did receive 1 dose of Diflucan??and does have treatment for possible yeast infections at home.?She will complete??a??10-day course of Bactrim??DS. Bacterial infection, unspecified??A49.9 Orders: sulfamethoxazole-trimethoprim 800 mg-160 mg oral tablet, 1 tab, Oral, BID, Correction of duration and dispensed tablets. Drink plenty of fluids., # 20 tab, 0 Refill(s), Pharmacy: [id number], 157, cm, 04/22/22 20:46:00 EST, Height/Length Dosing, 122.47, kg, 04/22/22 20:46:00 EST, Weight Dosing torsemide, 20 mg = 1 tab, Oral, Tab, Daily, First Dose: 04/24/22 9:34:00 EST, Routine Diet Order, 04/24/22 8:28:00 EST, Diabetic, Low (1,200-1,600 corey) 60g CHO, Heart Healthy Discharge Activity Restrictions, No Restrictions Discharge Diet Instruction, Consistent Carbohydrate [id number] corey, Cardiac, heart healthy with diabetic ADA 1800-calorie diet Discharge Follow Up Instructions, 04/24/22 13:28:00 EST, When following are met: Other (please specify), Follow up with PCP within 2 weeks. Call for appointment Discharge Patient, 04/24/22 13:28:00 EST, Other (see instructions), Home with [facility] Services - [facility] Discharge Wound Care Instructions, Dry bandage wraps with VNA nurses to assess wound and wound dressings at home. Urine Culture, Urine, Routine collect, RT - Routine, 04/23/22 16:25:00 EST, Once, Nurse collect, Collected, 04/23/22 16:25:00 EST, Print Label, [id number] All Diagnoses This Visit Asthma exacerbation, mild RSV (respiratory syncytial virus infection) Acute diastolic heart failure Acute kidney injury Hyperglycemia Venous stasis ulcers Hypertensive disorder UTI (urinary tract infection), bacterial Bacterial infection, unspecified Patient Instructions Call your primary care provider for: Temperature greater than 101F. Pain that does not go away. Persistent nausea, vomiting or constipation. Shortness of breath, with or without chest discomfort. Weight gain of 3 or more pounds per day. Patient Education Asthma, Adult Heart Failure, Self-Care Follow Up With When Contact Information Dandy Driscoll NP Within 1 to [address] [id number]- Additional Instructions: Medication Reconciliation New Prescription sulfamethoxazole-trimethoprim (sulfamethoxazole-trimethoprim 800 mg-160 mg oral tablet)1 tab Oral (given by mouth) 2 times a day for 10 Days. Correction of duration and dispensed tablets. Drink plenty of fluids.. Refills: 0. ?? Changed naproxen (naproxen 500 mg oral tablet)1 tab Oral (given by mouth) 2 times a day. Refills: 1. ?? Unchanged albuterol (Albuterol (Eqv-ProAir HFA) 90 mcg/inh inhalation aerosol)2 Puffs Inhale (breathe in) every 4 hours as needed as needed for wheezing. Refills: 2. ?? albuterol (albuterol 2.5 mg/3 mL (0.083%) inhalation solution)3 Milliliters Nebulized inhalation (inhale using nebulizer) every 4 hours as needed as needed for wheezing. Refills: 3. ?? amoxicillin (amoxicillin 500 mg oral capsule)4 Capsules Oral (given by mouth) once. Take one hr prior to dental procedure.. ?? aspirin (aspirin 81 mg oral delayed release tablet)1 tab Oral (given by mouth) every day. ?? benzonatate (benzonatate 100 mg oral capsule)1 Capsules Oral (given by mouth) 3 times a day as needed as needed for cough for 14 Days. Refills: 0. ?? buPROPion (buPROPion 300 mg/24 hours (XL) oral tablet, extended release)1 tab Oral (given by mouth)every day. Refills: 2. ?? cannabidiolCBD Cream 3000 mg; apply as directed.. ?? cranberry (Cranberry oral tablet)1 tab Oral (given by mouth) every day. ?? [id number] Milligrams Oral (given by mouth) 3 times a day as needed not specified. 1/2 to 1 tab as needed.. ?? Durable Medical Equipment for Prescription (1 nebulizer machine)asthma 493.9 and copd exacerbation J44.1, nebulizers treatement qid and q3-4h prn. Refills: 0. ?? fluticasone-salmeterol (Advair Diskus 500 mcg-50 mcg inhalation powder)1 Puffs Inhale (breathe in) 2 times a day. Refills: 4. ?? ipratropium-albuterol (!-DuoNeb 0.5 mg-2.5 mg/3 mL inhalation solution)3 Milliliters Nebulized inhalation (inhale using nebulizer) 4 times a day. Refills: 0. ?? lactobacillus acidophilus (Acidophilus oral capsule) ?? lisinopril (lisinopril 10 mg oral tablet)1 tab Oral (given by mouth) every day. Refills: 2. ?? loperamide (loperamide 2 mg oral capsule)1 Capsules Oral (given by mouth) 3 times a day as needed as needed for loose stool. Refills: 1. ?? nystatin topical (Nyamyc 100,000 units/g topical powder)Topical BID as needed for yeast. Refills: 0. ?? phenazopyridine (Azo-Standard)400 Milligrams Oral (given by mouth). Patient reports once a day, (AZO YEAST).. ?? predniSONE (predniSONE 20 mg oral tablet)3 tab Oral (given by mouth) every day. 3 tablets for 3 days followed by 2 tabs for 3 days followed by 1 tab for 3 days with food or milk. Refills: 0. ?? torsemide (torsemide 10 mg oral tablet)1 tab Oral (given by mouth) every day. Refills: 0. ?? triamcinolone topical (triamcinolone 0.1% topical cream)1 Application Topical (on the skin) 3 timesa day as needed not specified. Apply to affected areas as needed.. Refills: 0. Electronically Signed on 04/24/22 01:41 PM Mookie Kothari MD Patient Care team information Personnel Name: Dandy Driscoll NP Address: Address: [address] [address]- [place]
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
--- OUTSIDE RECORDS SUMMARY | 2024-02-27 19:29 | XMS_ITS | Continuity of Care Document ---
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 Allergies, Adverse Reactions, Alerts Substance Reaction Severity Status ALCOHOL 1 Moderate Active meperidine Bewilderment Unknown Active azithromycin Swollen face Unknown Active penicillins Swelling Other Unknown Active tetanus toxoids Unknown Active Tape 2 Unknown Severe Active 1Rubbing 2Outside Source Comment: Rips the skin off when removing Assessment and Plan Future Appointments Future Scheduled Tests Laboratory* Urinalysis with Micro if Indicated and Culture if Indicated 11/21/23 Radiology* US Pelvic Non OB Comp w/ Transvag 02/19/23 Immunizations Given and Recorded Vaccine Date Status Refusal Reason influenza virus vaccine, inactivated 1 02/05/22 Re corded influenza virus vaccine, inactivated 02/09/17 Bc rded [...] virus vaccine, inactivated 01/08/04 Bc rded zoster vaccine, inactivated 12/13/21 Recorded zoster vaccine, inactivated 09/29/21 Recorded pneumococcal 23-polyvalent vaccine 2 09/23/21 Bc rded pneumococcal 23-polyvalent vaccine 02/13/08 Record ed [id number] (booster only) vacc 09/23/21 Recorded [id number]-[id number]-1273 (booster only) vacc 07/09/20 Recorded influenza, unspecified formulation 01/07/21 Record ed influenza, unspecified formulation 01/02/20 Record ed influenza, unspecified formulation 02/06/19 Record ed influenza, unspecified formulation 01/22/18 Record ed SARS-CoV-2 (COVID-19) mRNA-1273 vaccine 07/09/20 R ecorded SARS-CoV-2 (COVID-19) mRNA-1273 vaccine 06/11/20 R ecorded SARS-CoV-2 (COVID-19) mRNA-1273 vaccine 3 06/11/20 Recorded pneumococcal 13-valent conjugate vaccine 02/06/19 Recorded zoster vaccine live 01/22/13 Recorded Novel [id number], all formulation 04/29/09 Recorded pneumococcal 7-valent vaccine 04/09/00 Recorded Not Given Vaccine Date Status Refusal Reason Td(adult) unspecified formulation 4 04/27/20 Not G iven Patient Refuses 1Result Comment: Given at the pharmacy-see record 2Result Comment: [facility] 3Result Comment: 1st vaccine 4Result Comment: Last Modified by Azra Dykes, Cupola Patcher 04-27-2020, 11:54 Medications !-DuoNeb 0.5 mg-2.5 mg/3 mL inhalation solution 3 mL, NEB, QID, # 120 EA, 0 Refill(s), Pharmacy: [facility] #58, 157, cm, 04/21/22 4:43:00 EST, Height/Length [...] BID, # 28 EA, 4 Refill(s), Pharmacy: [facility] #58, 157, cm, 04/22/22 20:46:00 EST, Height/Length Dosing, 122.47, kg, 04/22/22 20:46:00 EST, Weight Dosing Start Date: 05/11/22 Status: Ordered Albuterol (Eqv-ProAir HFA) 90 mcg/inh inhalation aerosol 180 mcg 2 puffs, Inhale, every 4 hr, PRN as needed for wheezing, # 8.5 g, 2 Refill(s), Pharmacy: [facility], 155, cm, 09/23/21 4:52:00 EDT, Height/Length Dosing, 125, kg, 09/23/21 4:52:00 EDT, Weight Dosing Start Date: 11/21/21 Status: Ordered albuterol 2.5 mg/3 mL (0.083%) inhalation solution 2.5 mg = 3 mL, NEB, every 4 hr, PRN as needed for wheezing, # 180 mL, 3 Refill(s), Pharmacy: [facility] #58, 157, cm, 04/21/22 4:43:00 EST, Height/Length Dosing, 122.47, kg, 04/21/22 4:43:00 EST, Weight Dosing Start Date: 04/21/22 Status: Ordered aspirin 81 mg oral delayed release tablet 81 mg = 1 tab, Oral, Daily, # 90 tab, 0 Refill(s) Start Date: 10/27/21 Status: Ordered Azo-Standard 400 mg =, Oral, Patient reports once a day, (AZO YEAST)., 0 Refill(s) Start Date: 04/19/22 Status: Ordered Bactrim DS 800 mg-160 mg oral tablet 1 tab, Oral, BID, # 14 tab, 0 Refill(s), Pharmacy: [facility] #58, 157, cm, 03/27/23 9:48:00 EST, Height, 123.5, kg, 11/21/23 11:28:00 EDT, Weight Dosing Start Date: 11/21/23 Stop Date: 11/28/23 Status: Ordered buPROPion 300 mg/24 hours (XL) oral tablet, extended release 300 mg = 1 tab, Oral, Daily, # 90 tab, 2 Refill(s), Pharmacy: [facility], 155, cm, 09/23/21 4:52:00 EDT, Height/Length Dosing, 125, kg, 09/23/21 4:52:00 EDT, Weight Dosing Start Date: 11/21/21 Status: Ordered cannabidiol See Instructions, CBD Cream 3000 mg; apply as directed., 0 Refill(s) Start Date: 10/27/21 Status: Ordered clindamycin 300 mg oral capsule See Instructions, TAKE 2 CAPSULES BY MOUTH ONCE PRIOR TO DENTAL PROCEDURE-2 upcoming dental appointments, # 4 cap, 0 Refill(s), Pharmacy: [facility] #58, 157, cm, 03/27/23 9:48:00 EST, Height, 111.6, kg, 05/14/23 13:24:00 EST, Weight Dosing Start Date: 06/12/23 Status: Ordered Cranberry oral tablet 1 tab, Oral, Daily, 0 Refill(s) Start Date: 10/27/21 Status: Ordered cyclobenzaprine 10 mg =, Oral, TID, PRN not specified, 1/2 to 1 tab as needed., 0 Refill(s) Start Date: 10/27/21 Status: Ordered Entresto 24 mg-26 mg oral tablet 1 tab, Oral, BID, # 180 tab, 4 Refill(s) Start Date: 04/18/23 Status: Ordered glucometer glucometer, test sugar daily, Supply, See instructions, # 1 EA, 0 Refill(s), Pharmacy: [facility] #58 Start Date: 12/04/22 Status: Ordered lancets lancets, tests blood sugar once daily, Supply, See instructions, # 100 EA, 3 Refill(s), Pharmacy: [facility] #58 Start Date: 12/04/22 Status: Ordered loperamide 2 mg oral capsule 2 mg = 1 cap, Oral, TID, PRN as needed for loose stool, # 270 cap, 1 Refill(s), Pharmacy: [facility], 155, cm, 09/23/21 4:52:00 EDT, Height/Length Dosing, 125, kg, 09/23/21 4:52:00 EDT, Weight Dosing Start Date: 11/21/21 Status: Ordered megestrol 40 mg oral tablet TAKE ONE TABLET BY MOUTH TWICE A DAY Start Date: 08/30/23 Status: Ordered Myrbetriq 25 mg oral tablet, extended release 25 mg = 1 tab, Oral, Daily, do not crush or chew; total daily dose 75 mg (50 + 25), # 90 tab, 3 Refill(s), Pharmacy: [facility] #58, 157, cm, 02/27/23 9:53:00 EST, Height, 118.55, kg, 03/02/23 12:53:00 EST, Weight Dosing Start Date: 03/08/23 Stop Date: 03/02/24 Status: Ordered Myrbetriq 50 mg oral tablet, extended release 50 mg = 1 tab, Oral, Daily, do not crush or chew, # 90 tab, 3 Refill(s), Pharmacy: [facility], 157, cm, 02/27/23 9:53:00 EST, Height, 118.55, kg, 03/02/23 12:53:00 EST, Weight Dosing Start Date: 03/08/23 Stop Date: 03/02/24 Status: Ordered naproxen 500 mg oral tablet 500 mg = 1 tab, Oral, BID, # 60 tab, 1 Refill(s), Pharmacy: [facility], 155,cm, 09/23/21 4:52:00 EDT, Height/Length Dosing, 125, kg, 09/23/21 4:52:00 EDT, Weight Dosing Start Date: 11/21/21 Status: Ordered Nyamyc 100,000 units/g topical powder See Instructions, Topical BID as needed for yeast, # 30 g, 0 Refill(s), Pharmacy: [facility], 155, cm, 09/23/21 4:52:00 EDT, Height/Length Dosing, 125, kg, 09/23/21 4:52:00 EDT, Weight Dosing Start Date: 11/21/21 Status: Ordered ONETOUCH ULTRA2 GLUCOSE SYST ONETOUCH ULTRA2 GLUCOSE SYST, See Instructions, USE TO TEST GLUCOSE LEVELS ONCE DAILY, # 1 EA, 0 Refill(s), Pharmacy: [facility] #58, 157, cm, 02/14/23 11:37:00 EST, Height, 119.07, kg, 02/14/23 11:38:00 EST, Weight Dosing Start Date: 02/23/23 Status: Ordered prednisoLONE acetate 0.12% ophthalmic suspension 0 Refill(s) Start Date: 10/18/22 Status: Ordered test strips test strips, test blood sugar daily, Supply, See instructions, # 100 EA, 3 Refill(s), Pharmacy: [facility] #58 Start Date: 12/04/22 Status: Ordered tobramycin 0.3% ophthalmic solution 1 drops, Eye-Both, QID, # 5 mL, 0 Refill(s), Pharmacy: [facility] #58, 157, cm, 04/22/22 20:46:00 EST, Height/Length Dosing, 122.47, kg, 04/22/22 20:46:00 EST, Weight Dosing Start Date: 06/13/22 Stop Date: 06/20/22 Status: Ordered torsemide 20 mg oral tablet 20 mg = 1 tab, Oral, Daily, # 90 tab, 4 Refill(s), Pharmacy: [facility] #58, 157, cm, 04/22/22 20:46:00 EST, Height/Length Dosing, 122.47, kg, 04/22/22 20:46:00 EST, Weight Dosing Start Date: 07/04/22 Status: Ordered triamcinolone 0.1% topical cream 1 che, Topical, TID, PRN not specified, Apply to affected areas as needed., # 30 g, 0 Refill(s), Pharmacy: [facility], 155, cm, 09/23/21 4:52:00 EDT, Height/Length Dosing, 125,kg, 09/23/21 4:52:00 EDT, Weight Dosing Start Date: 11/21/21 Status: Ordered Problem List Condition Confirmation Course Effective Dates Status Health Status Informant Acute diastolic heart failure Confirmed Active CHF exacerbation Confirmed Active Anemia following acute postoperative blood loss Confirmed 01/25/21 Active Asthma 1 Confirmed Active At risk for infection Confirmed Active Hematuria Confirmed Active Body mass index 40+ - severely obese Confirmed 02/14/18 Active Bronchitis Confirmed Active Candidiasis of vulva Confirmed Active CHF (congestive heart failure) Confirmed Active Contact dermatitis Confirmed Active Cough 2 Confirmed Active Cyanosis Confirmed Active Depressive disorder Confirmed Active Diarrhea Confirmed Active Dysuria Confirmed Active Edema leg Confirmed Active Genital lichen sclerosus Confirmed 12/06/17 Active Hip joint prosthesis present Confirmed 01/19/21 Active History of right total knee replacement Confirmed 01/20/16 Active History of total hip arthroplasty Confirmed 02/14/18 Active Hoarding disorder Confirmed Active Lack of running water at home Confirmed Active Hyperlipidemia Confirmed Active HLD (hyperlipidemia) Confirmed Active Hypersomnia Confirmed Active Hypertensive disorder Confirmed Active HTN (hypertension) Confirmed Active Idiopathic osteoarthritis Confirmed Active Impaired renal function disorder 3 Confirmed 03/22/18 Active Intestinal disaccharidase deficiency Confirmed Active Lactose intolerance Confirmed Active Lack of social support Confirmed Active Uterine cancer Confirmed Active Morbid obesity Confirmed Active Osteoarthritis of left hip joint Confirmed 08/09/17 Active Pain of left hip joint Confirmed Active Peripheral venous insufficiency Confirmed Active Hospital discharge follow-up Confirmed Active Postmenopausal state Confirmed Active Renal impairment Confirmed 09/13/10 Active Restless legs Confirmed Active Restless leg syndrome Confirmed Active Severe obesity Confirmed Active Shoulder joint pain Confirmed Active Spondylolisthesis Confirmed Active Spondylosis Confirmed Active Temporomandibular joint disorder Confirmed Active Tracheobronchitis Confirmed Active Type 2 diabetes mellitus Confirmed Active Urge incontinence of urine Confirmed Active Poor personal hygiene Confirmed Active 1From 07-14-2021 visit: stable except [...] a Covid PCR test this afternoon. 3per [facility] ortho note Procedures Procedure Date Related Diagnosis Body Site Status Colonoscopy 1 10/24/18 Completed Total arthroplasty of the left hip 02/12/18 Completed Complete repair of right rotator cuff 01/06/09 Completed PAP Due 2012 2 05/29/07 Completed Colonoscopy 3 08/11/02 Completed Bilateral knee surgery 4 04/08/01 Completed Procedure on left shoulder 04/08/01 Completed Tubal ligation 04/08/85 Completed Repair of patellar tendon 04/08/68 Completed Dilatation and curettage Completed 1diverticular disease, colon polypx2. 2Pap Due - 05/2012 05/30/07 - Negative (No HPV done) 3Normal. 4Revision in 2012 Results Laboratory List Name Date .Urinalysis POCT 11/21/23 Urinalysis Microscopic 11/21/23 Automated Diff 11/21/23 CBC w/ Diff 11/21/23 Comprehensive Metabolic Panel (CMP) 11/20 Hemoglobin A1c 11/21/23 Lipid Panel 11/21/23 TSH w/ Rflx to Free T4 11/21/23 Most recent to oldest [Reference Range]: 1 WBC [5.0-10.0 x10^3/mcL] 9.3 x10^3/mcL (11/21/23 11:03 AM) RBC [4.1-5.3 x10^6/mcL] 4.1 x10^6/mcL (11/21/23 11:03 AM) Neutro Auto [40.0-75.0 %] 69.2 % (11/21/23 11:03 AM) Lymph Auto [20.0-50.0 %] 22.6 % (11/21/23 11:03 AM) [place] Auto [2.0-15.0 %] 4.9 % (11/21/23 11:03 AM) Basophil Auto [0.0-1.0 %] 0.4 % (11/21/23 11:03 AM) BUN [7-18 mg/dL] 9 mg/dL (11/21/23 11:03 AM) Cholesterol Total [50-200 mg/dL] 159 mg/ dL (11/21/23 11:03 AM) UA WBC [0-3] 3-5 *ABN* (11/21/23 11:23 AM) LDL [0-130 mg/dL] 91 mg/dL (11/21/23 11:03 AM) Glucose Level [74-106 mg/dL] 165 mg/dL *HI* (11/21/23 11:03 AM) Potassium Level [3.5-5.1 mmol/L] 3.8 mmo l/L (11/21/23 11:03 AM) MCV [80.0-96.0 fL] 96.3 fL *HI* (11/21/23 AM) HDL [40-60 mg/dL] 48 mg/dL (11/21/23 AM) AST [15-37 unit/L] 10 unit/L *LOW* (11/21/23 AM) ALT [14-59 unit/L] 18 unit/L (11/21/23 AM) MCHC [31.0-35.0 g/dL] 33.3 g/dL (11/21/23 AM) Sodium Level [136-145 mmol/L] 141 mmol/L (11/21/23 AM) UA RBC [0-2] 5-10 (11/21/23 AM) Hct [37.0-47.0 %] 39.3 % (11/21/23 AM) UA Bacteria Rare /HPF (11/21/23) Triglycerides [0-150 mg/dL] 99 mg/dL (11/21/23 AM) Calcium Level [8.5-10.1 mg/dL] 8.5 mg/dL (11/21/23 AM) Albumin Level [3.4-5.0 g/dL] 3.1 g/dL *LOW* (11/21/23 AM) Protein Total [6.4-8.2 g/dL] 6.8 g/dL (11/21/23 AM) MCH [26.0-32.0 pg] 32.1 pg *HI* (11/21/23 AM) Neutro Absolute 6.4 x10^3/mcL *NA* (11/21/23 AM) Bilirubin Total [0.2-1.0 mg/dL] 1.1 mg/d L *HI* (11/21/23 AM) Hgb [12.0-16.0 g/dL] 13.1 g/dL (11/21/23 AM) Alk Phos [46-146 unit/L] 63 unit/L (11/21/23 AM) UA Mucous None Seen /HPF (11/21/23 AM) Platelets [130-450 x10^3/mcL] 281 x10^3/ mcL (11/21/23: AM) CO2 [21-32 mmol/L] 27 mmol/L (11/21/23: AM) UA Squam Epithelial [None Seen] Few *ABN* (11/21/23 AM) TSH [0.358-3.740 mcIntlUnit/mL] 3.087 mc IntlUnit/mL (11/21/23: AM) eGFR Non-AA [>=60] 83 (11/21/23: AM) eGFR AA [>=60] 83 (11/21/23: AM) Hemoglobin A1c [4.0-5.6 %] 7.0 % 1 *HI* (11/21/23 AM) Chloride Level [98-107 mmol/L] 107 mmol/ L (11/21/23 AM) RDW-CV [11.5-14.5 %] 13.8 % (11/21/23 AM) Imm Gran Auto [0.0-0.9 %] 0.5 % (11/21/23: AM) UA Culture Ind?. Indicated (11/21/23 AM) UA Amorph Many /HPF (11/21/23 AM) Method of Collect POC Clean Catch *NA* (11/21/23) Specific Shield[place], Ur POC >1.030 *NA* (11/21/23 AM) Specimen Color POC Mechelle *NA* (11/21/23 AM) Glucose, Urine POC [Negative] Negative (11/21/23 AM) Bilirubin, Urine POC [Negative] Negative (11/21/23 AM) Ketones, Urine POC [Negative] Negative (11/21/23 AM) Blood, Urine POC [Negative] Moderate *ABN* (11/21/23 AM) pH, Urine POC 5.5 *NA* (11/21/23 AM) Protein, Urine POC [Negative] Trace *ABN* (11/21/23 AM) Urobilinogen, Urine POC Normal (11/21/23 11:23 AM) Nitrite, Urine POC [Negative] Negative (11/21/23 11:23 AM) Leuk Esterase, Urine POC [Negative] Nega tive (11/21/23 11:23 AM) Clarity, Urine POC [Clear] Hazy *ABN* (11/21/23 11:23 AM) Creatinine Level [0.55-1.02 mg/dL] 0.76 mg/dL (11/21/23 11:03 AM) Eos, Auto [1.0-6.0 %] 2.4 % (11/21/23 11:03 AM) 1Interpretive Data: New test method effective 05-08-23. Establishment of new HA1c baseline is recommended. The following A1c interpretive data reflect the 2017 [place] [employer] Association (ADA) guidelinesand will be reported with each A1c result: Normal: <5.7% Prediabetes: 5.7 - 6.4% Diagnostic for diabetes (if confirmed): ???6.5% Orders for Microbiology Reports Name Date Urine Culture 11/21/23 Microbiology Reports TEST:Urine Culture STATUS:Order in Progress BODY SITE: SOURCE:Urine COLLECTED DATE/TIME:11/21/23 11:23 AM PRELIMINARY REPORT >100,000 cfu/ml Klebsiella variicola Susceptibility to follow. Social History Social History Type Response Tobacco Former tobacco user Tobacco Use:. Sex Female Patient Care team information Care Team Personnel Name: Dandy Driscoll NP Position: Physician Member Role: Informed Provider Address: Address: [address] Care Team Related Persons Name: ASH QUINTANA
--- OUTSIDE RECORDS SUMMARY | 2024-02-27 19:29 | XMS_ITS | Continuity of Care Document ---
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 05:18?? 14 ??Low?? 09/23/21?? 9 ??Low?? ALT?? 07/12/22 05:18?? 18?? 09/23/21?? 19?? BUN?? 07/12/22 05:18?? 26 ??High?? 06/13/22?? 22 ??High?? Glucose Level?? 07/12/22 05:18?? 142 ??High?? 06/13/22?? 159 ??High?? Creatinine Level?? 07/12/22 05:18?? 0.95?? 06/13/22?? 0.73?? eGFR AA?? 07/12/22 05:18?? 64?? 06/13/22?? 88?? eGFR Non-AA?? 07/12/22 05:18?? 64?? 06/13/22?? 88?? Calcium Level?? 07/12/22 05:18?? 9.2?? 06/13/22?? 8.8?? Protein Total?? 07/12/22 05:18?? 7.4?? 09/23/21?? 7.1?? Albumin Level?? 07/12/22 05:18?? 3.5?? 05/11/22?? 3.3 ??Low?? Bilirubin Total?? 07/12/22 05:18?? 0.8?? 09/23/21?? 0.6? Cardiac Isoenzymes?? LATEST RESULTS?? HISTORICAL RESULTS?? Troponin-I?? 07/12/22 05:18?? 18.8?? 04/22/22?? 23.6?? NT-proBNP?? 07/12/22 05:18?? 146 ??High?? 04/22/22?? 530 ??High? Infectious Disease?? LATEST RESULTS?? HISTORICAL RESULTS?? Employed in healthcare??? 07/12/22 05:00?? No?? 04/21/22?? Unknown?? Symptomatic as defined by CDC??? 07/12/22 05:00?? Yes?? 04/21/22?? Unknown?? Date of onset (Lab)?? 07/12/22 05:00?? 07/11/22? Hospitalized due to COVID-19??? 07/12/22 05:00?? No?? 04/21/22?? No?? In ICU??? 07/12/22 05:00?? No?? 04/21/22?? No?? Group care resident??? 07/12/22 05:00?? No?? 04/21/22?? No?? status??? 07/12/22 05:00?? Not ?? 04/21/22?? Not ?? SARS-CoV-2(Covid19)PCR(GXpert COVFLURSV)?? 07/12/22 05:00?? Negative?? 04/21/22?? Negative?? Flu A ([facility]Xpert COVFLURSV)?? 07/12/22 05:00?? Negative?? 04/21/22?? Negative?? Flu B ([facility]Xpert COVFLURSV)?? 07/12/22 05:00?? Negative?? 04/21/22?? Negative?? RSV ([facility] COVFLURSV)?? 07/12/22 05:00?? Negative?? 04/21/22?? Positive Abnormal? Electronically Signed on 07/12/22 06:30 AM Armaan Patterson MD Emergency department Discharge instructions * Armaan Patterson MD: PERFORM Event Display: ED Discharge Information Authored Date: [id number] SURYA QUINTANA :1950 Age:72 years Sex:Female Visit Date:07/12/2022 Primary Care Physician: aDndy Driscoll GASSER MACHINE OPERATOR Discharge Instructions We would like to thank you for allowing us to assist you with your healthcare needs. The following includes patient education materials and information regarding your injury/illness. Diagnosis from Today's Visit COPD exacerbation Discharge Vitals Temperature??(Temporal Artery) 98.4 ??F (36.9 ??C) Heart Rate??(Peripheral) 106 Heart Rate??(Monitored) 107 Respiratory Rate?? 16 Blood Pressure?? 179/83?? Height?? 61.81 in (157.000 cm) Weight??(Estimated) 277.17 lb (125.70 kg) Allergies Tape??(Unknown) ALCOHOL azithromycin??(Swollen face) meperidine??(Bewilderment) penicillins??(Swelling, Other) tetanus toxoids What to Do Next Instructions from Your Care Team preScription for prednisone taper to treat COPD exacerbation sent to your pharmacy. ??Use your nebulizer as needed.?? Follow-up as needed if worsening symptoms. You Need to Schedule the Following Appointments Follow Up with??Follow up with primary care provider When:??Only if needed Upcoming Scheduled Appointments Sunday 9:40 AM EDT ?? Sunday 1:40 PM EDT ?? You [...] Much When Why Instructions Next Dose New predniSONE (predniSONE 10 mg oral tablet) See Instruction Oral (given by mouth) Every day COPD exacerbation 5 tabs for 3 days, 4 tabs daily x3 days, 3 tabs daily x3 days, 2 tabs daily x3 days, 1 tab daily x3days ?? Pickup at [id number] Unchanged albuterol (Albuterol (Eqv-ProAir HFA) 90 mcg/ [...] in) 2 times a day Asthma Unchanged furosemide (furosemide 20 mg oral tablet) 1 tab Oral (given by mouth) Every day Unchanged ipratropium-albuterol (!-DuoNeb 0.5 mg-2.5 mg/ 3 [...] as needed for loose stool Unchanged naproxen (naproxen 500 mg oral tablet) 1 tab Oral (given by mouth) 2 times a day Unchanged nystatin topical (Nyamyc 100,000 units/ g topical powder) See instructions Yeast infection Topical BID as needed for yeast ?? Unchanged phenazopyridine (Azo-Standard) 400 Milligrams Oral (given by mouth) Patient reports once a day, (AZO YEAST). ?? Unchanged tobramycin ophthalmic (tobramycin 0.3% ophthalmic solution) 1 Drops Both eyes 4 times a day Acute bacterial conjunctivitis Duration: 7 Days Unchanged torsemide (torsemide 20 mg oral tablet) 1 tab Oral (given by mouth) Every day HTN (hypertension) Edema Unchanged triamcinolone topical (triamcinolone 0.1% topical cream) 1 Application Topical (on the skin) 3 times a day as needed for not specified Contact dermatitis due to plant Apply to affected areas as needed. ?? Pharmacy Information [facility]: [address], [place] [id number] [phone] Education Materials Chronic Obstructive Pulmonary Disease Exacerbation Chronic obstructive pulmonary disease (COPD) is a long-term (chronic) lung problem. In COPD, the flow of air from the lungs is limited. COPD exacerbations are times that breathing gets worse and you need more than your normal treatment. Without treatment, they can be life-threatening. If they happen often, your lungs can become more damaged. What are the causes? Having infections that affect your airways and lungs. ? Being exposed to: ? Smoke. ? Air pollution. ? Chemical fumes. ? Dust. ? Things that can cause an allergic reaction (allergens). ? Not taking your usual COPD medicines as told. ? Having medical problems already, such as heart failure or infections not involving the lungs. In many cases, the cause is not known. What increases the risk? Smoking. ? Being an older adult. ? Having frequent prior COPD exacerbations. What are the signs or symptoms? Increased coughing. ? Increased mucus from your lungs. ? Increased wheezing. ? Increased shortness of breath. ? Fast breathing and finding it hard to breathe. ? Chest tightness. ? Less energy than usual. ? Sleep disruption from symptoms. ? Confusion. ? Increased sleepiness. Often, these symptoms happen or get worse even with the use of medicines. How is this treated? Treatment for this condition depends on how bad it is and the cause of the symptoms. You may need to stay in the hospital for treatment. Treatment may include: ? Taking medicines. ? Using oxygen. ? Being treated with different ways to clear your airway, such as using a mask to deliver oxygen. Follow these instructions at home: Medicines ? Take ydet-[id number] and prescription medicines only as told by your doctor. ? Use all inhaled medicines the correct way. ? If you were prescribed an antibiotic or steroid medicine, take it as told by your doctor. Do not stop taking it even if you start to feel better. Lifestyle ? Do not smoke or use any products that contain nicotine or tobacco. If you need help quitting, ask your doctor. ? Eat healthy foods. ? Exercise regularly. ? Get enough sleep. Most adults need 7 or more hours per night. ? Avoid tobacco smoke and other things that can bother your lungs. ? Several times a day, wash your hands with soap and water for at least 20 seconds. If you cannot usesoap and water, use hand grinding machine operator automatic. This may help keep you from getting an infection. ? During flu season, avoid areas that are crowded with people. General instructions ? Drink enough fluid to keep your pee (urine) pale yellow. Do not do this if your doctor has told younot to. ? Use a cool mist machine (vaporizer). ? If you use oxygen or a machine that turns medicine into a mist (nebulizer), continue to use it as told. ? Keep all follow-up visits. How is this prevented? Keep up with shots (vaccinations) as told by your doctor. Be sure to get a yearly flu (influenza) shot. ? If you smoke, quit smoking. Smoking makes the problem worse. ? Follow all instructions for rehabilitation. These are steps you can take to make your body work better. ? Work with your doctor to develop and follow an action plan. This tells you what steps to take when you experience certain symptoms. Contact a doctor if: ? Your COPD symptoms get worse than normal. Get help right away if: ? You are short of breath and it gets worse, even when you are resting. ? You have trouble talking. ? You have chest pain. ? You cough up blood. ? You have a fever. ? You keep vomiting. ? You feel weak or you pass out (faint). ? You feel confused. ? You are not able to sleep because of your symptoms. ? You have trouble doing daily activities. These symptoms may be an emergency. Get help right away. Call your local emergency services (911 int [place] ? Do not wait to see if the symptoms will go away. ? Do not drive yourself to the hospital. Summary ? COPD exacerbations are times that breathing gets worse and you need more treatment than normal. ? COPD exacerbations can be very serious and may cause your lungs to become more damaged. ? Do not smoke. If you need help quitting, ask your doctor. ? Stay up to date on your shots. Get a flu shot every year. This information is not intended to replace advice given to you by your health care provider. Make sure you discuss any questions you have with your health care provider. Document Revised: 02/16/2021 Document Reviewed: 02/01/2021 [employer] Patient Education ?? 2021 [employer] Tests Performed Medications and Immunizations Administered Given !-DuoNeb 0.5 mg-2.5 mg/3 mL inhalation solution, 3 mL, Inhale Albuterol (Eqv-ProAir HFA) 90 mcg/inh inhalation aerosol, 2 inh, Inhale SOLU-Medrol, 125 mg, IV Push Lab Test Name Test Result Date/Time pH Saulo 7.40 pH unit(s) 07/12/2022 05:33 EDT pCO2 Saulo 52 mmHg 07/12/2022 05:33 EDT pO2 Saulo 42 mmHg 07/12/2022 05:33 EDT HCO3 Venous 32 mmol/L 07/12/2022 05:33 EDT O2 Sat Saulo 76 % 07/12/2022 05:33 EDT CO2 Total Venous 34 mmol/L 07/12/2022 05:33 EDT Base Excess Venous 6.2 mmol/L 07/12/2022 05:33 EDT WBC 11.0 x10^3/mcL 07/12/2022 05:18 EDT RBC 4.5 x10^6/mcL 07/12/2022 05:18 EDT Hgb 14.1 g/dL 07/12/2022 05:18 EDT Hct 43.4 % 07/12/2022 05:18 EDT MCV 96.9 07/12/2022 05:18 EDT MCH 31.5 pg 07/12/2022 05:18 EDT MCHC 32.5 g/dL 07/12/2022 05:18 EDT RDW-CV 14.1 % 07/12/2022 05:18 EDT Platelets 254 x10^3/mcL 07/12/2022 05:18 EDT Neutro Auto 75.3 % 07/12/2022 05:18 EDT Lymph Auto 17.2 % 07/12/2022 05:18 EDT [place] Auto 6.2 % 07/12/2022 05:18 EDT Eos, Auto 0.6 % 07/12/2022 05:18 EDT Basophil Auto 0.3 % 07/12/2022 05:18 EDT Imm Gran Auto 0.4 % 07/12/2022 05:18 EDT Neutro Absolute 8.3 x10^3/mcL 07/12/2022 05:18 EDT Sodium Level 142 mmol/L 07/12/2022 05:18 EDT Potassium Level 3.6 mmol/L 07/12/2022 05:18 EDT Chloride Level 101 mmol/L 07/12/2022 05:18 EDT CO2 32 mmol/L 07/12/2022 05:18 EDT Alk Phos 72 unit/L 07/12/2022 05:18 EDT AST 14 unit/L 07/12/2022 05:18 EDT ALT 18 unit/L 07/12/2022 05:18 EDT BUN 26 mg/dL 07/12/2022 05:18 EDT Glucose Level 142 mg/dL 07/12/2022 05:18 EDT Creatinine Level 0.95 mg/dL 07/12/2022 05:18 EDT eGFR AA 64 07/12/2022 05:18 EDT eGFR Non-AA 64 07/12/2022 05:18 EDT Calcium Level 9.2 mg/dL 07/12/2022 05:18 EDT Protein Total 7.4 g/dL 07/12/2022 05:18 EDT Albumin Level 3.5 g/dL 07/12/2022 05:18 EDT Bilirubin Total 0.8 mg/dL 07/12/2022 05:18 EDT Troponin-I 18.8 pg/mL 07/12/2022 05:18 EDT NT-proBNP 146 pg/mL 07/12/2022 05:18 EDT Employed in healthcare? No 07/12/2022 05:00 EDT Symptomatic as defined by CDC? Yes 07/12/2022 05:00 EDT Date of onset (Lab) 07/11/2022 07/12/2022 05:00 EDT Hospitalized due to COVID-19? No 07/12/2022 05:00 EDT In ICU? No 07/12/2022 05:00 EDT Group care resident? No 07/12/2022 05:00 EDT status? Not 07/12/2022 05:00 EDT SARS-CoV-2(Covid19)PCR([facility]Xpert COVFLURSV) NEGATIVE 07/12/2022 05:00 EDT Flu A ([facility]pert COVFLURSV) NEGATIVE 07/12/2022 05:00 EDT Flu B ([facility]Xpert COVFLURSV) Neg-GeneXPert 07/12/2022 05:00 EDT RSV ([facility]pert COVFLURSV) Neg-GeneXPert 07/12/2022 05:00 EDT Patient/Outside Installation Machinist Signature Patient Name:SURYA QUINTANA Marisol I have received this information and my questions have been answered. Patient/Outside Installation Machinist Name: Patient/Outside Installation Machinist Signature: Relationship to Patient: Witness Name/Signature: Date: Electronically Signed on: 07/12/2022 06:29 EDTSigned by:IVETH Emergency department Note * Margaret Burnett M: PERFORM Event Display: ED Notes Authored Date: Patient Care team information Care Team Personnel Name: Dandy Driscoll GASSER MACHINE OPERATOR Position: Physician Member Role: Informed Provider Address: Address: [address] Name: Armaan Patterson MD Position: Physician Member Role: Attending Physician Address: Address: [address] [place] [address] Name: Sofi Castañeda RN Position: Nurse Member Role: ED Nurse Care Team Related Persons Name: ASH QUINTANA
--- OUTSIDE RECORDS SUMMARY | 2024-02-27 19:30 | XMS_ITS | Continuity of Care Document ---
Author Organization [facility] Address [address] [place] [address] Care Team Providers Care Com Writer Name Role Phone DriscollDandy Carola Primary Care Physician [phone] Encounter NCTY_ID Date(s): 10/18/22 - 10/18/22 [facility] [address] [place] [id number] Encounter Diagnosis HTN (hypertension)(Discharge Diagnosis) - 10/18/22 Heart failure(Discharge Diagnosis) - 10/18/22 Discharge Disposition: Home or Self Care Attending Physician: Alina Fernandez COMMUNITY MANAGER Allergies, Adverse Reactions, Alerts Substance Reaction Severity Status ALCOHOL 1 Moderate Active meperidine Bewilderment Unknown Active azithromycin Swollen face Unknown Active penicillins Swelling Other Unknown Active tetanus toxoids Unknown Active Tape 2 Unknown Severe Active 1Rubbing 2Outside Source Comment: Rips the skin off when removing Assessment and Plan Future Appointments Future Scheduled Tests Laboratory* Basic Metabolic Panel 10/12/22 Radiology* NM Myocardial SPECT Drug Stress Multi 07/04/22 Functional Status 10/18/22 Other exposure to Infectious Disease Non e [...] rded pneumococcal 23-polyvalent vaccine 02/13/08 Record ed [id number] (booster only) vacc 09/23/21 Recorded [id number] (booster only) vacc 07/09/20 Recorded influenza, unspecified formulation 01/07/21 Record ed influenza, unspecified formulation 01/02/20 Record ed influenza, unspecified formulation 02/06/19 Record ed influenza, unspecified formulation 01/22/18 Record ed SARS-CoV-2 (COVID-19) mRNA-1273 vaccine 07/09/20 R ecorded SARS-CoV-2 (COVID-19) mRNA-1273 vaccine 06/11/20 R ecorded SARS-CoV-2 (COVID-19) mRNA-1273 vaccine 3 06/11/20 Recorded pneumococcal 13-valent conjugate vaccine 02/06/19 Recorded zoster vaccine live 01/22/13 Recorded Novel [id number], all formulation 04/29/09 Recorded pneumococcal 7-valent vaccine 04/09/00 Recorded Not Given Vaccine Date Status Refusal Reason Td(adult) unspecified formulation 4 04/27/20 Not G emilyen Patient Refuses 1Result Comment: Given at the pharmacy-see record 2Result Comment: [facility] 3Result Comment: 1st vaccine 4Result Comment: Last Modified by Azra Dykes, [employer] Windows Engineer 04-27-2020, 11:54 Medications !-DuoNeb 0.5 mg-2.5 mg/3 mL inhalation solution 3 mL, NEB, QID, # 120 EA, 0 Refill(s), Pharmacy: [id number], 157, cm, 04/21/22 4:43:00 EST, Height/Length [...] BID, # 28 EA, 4 Refill(s), Pharmacy: [id number], 157, cm, 04/22/22 20:46:00 EST, Height/Length Dosing, 122.47, kg, 04/22/22 20:46:00 EST, Weight Dosing Start Date: 05/11/22 Status: Ordered Albuterol (Eqv-ProAir HFA) 90 mcg/inh inhalation aerosol 180 mcg 2 puffs, Inhale, every 4 hr, PRN as needed for wheezing, # 8.5 g, 2 Refill(s), Pharmacy: [facility], 155, cm, 09/23/21 4:52:00 EDT, Height/Length Dosing, 125, kg, 09/23/21 4:52:00 EDT, Weight Dosing Start Date: 11/21/21 Status: Ordered albuterol 2.5 mg/3 mL (0.083%) inhalation solution 2.5 mg = 3 mL, NEB, every 4 hr, PRN as needed for wheezing, # 180 mL, 3 Refill(s), Pharmacy: [id number], 157, cm, 04/21/22 4:43:00 EST, Height/Length [...] Daily, # 90 tab, 2 Refill(s), Pharmacy: [facility], 155, cm, 09/23/21 4:52:00 EDT, Height/Length [...] 1 tab, Oral, BID, # 180 tab, 2 Refill(s), Pharmacy: [id number], 157, cm, 07/12/22 4:56:00EDT, Height/Length Dosing, 125.7, kg, 07/12/22 4:56:00 EDT, Weight Dosing Start Date: 10/18/22 Status: Ordered furosemide 20 mg oral tablet 30 EA, TAKE ONE TABLET BY MOUTH EVERY DAY, 0 Refill(s) Start Date: 10/18/22 Status: Ordered Jardiance 10 mg oral tablet 10 mg = 1 tab, Oral, every morning, # 90 tab, 2 Refill(s), Pharmacy: [id number], 157, cm,07/12/22 4:56:00 EDT, Height/Length Dosing, 125.7, kg, 07/12/22 4:56:00 EDT, Weight Dosing Start Date: 10/18/22 Status: Ordered loperamide 2 mg oral capsule 2 mg = 1 cap, Oral, TID, PRN as needed for loose stool, # 270 cap, 1 Refill(s), Pharmacy: [facility], 155, cm, 09/23/21 4:52:00 EDT, Height/Length Dosing, 125, kg, 09/23/21 4:52:00 EDT, Weight Dosing Start Date: 11/21/21 Status: Ordered naproxen 500 mg oral tablet 500 mg = 1 tab, Oral, BID, # 60 tab, 1 Refill(s), Pharmacy: [facility], 155,cm, 09/23/21 4:52:00 EDT, Height/Length Dosing, 125, kg, 09/23/21 4:52:00 EDT, Weight Dosing Start Date: 11/21/21 Status: Ordered Nyamyc 100,000 units/g topical powder See Instructions, Topical BID as needed for yeast, # 30 g, 0 Refill(s), Pharmacy: [facility], 155, cm, 09/23/21 4:52:00 EDT, Height/Length Dosing, 125, kg, 09/23/21 4:52:00 EDT, Weight Dosing Start Date: 11/21/21 Status: Ordered prednisoLONE acetate 0.12% ophthalmic suspension 0 Refill(s) Start Date: 10/18/22 Status: Ordered Sterile Lubricating Tears ophthalmic solution 0 Refill(s) Start Date: 10/18/22 Status: Ordered tobramycin 0.3% ophthalmic solution 1 drops, Eye-Both, QID, # 5 mL, 0 Refill(s), Pharmacy: [id number], 157, cm, 04/22/22 20:46:00 EST, Height/Length Dosing, 122.47, kg, 04/22/22 20:46:00 EST, Weight Dosing Start Date: 06/13/22 Stop Date: 06/20/22 Status: Ordered torsemide 20 mg oral tablet 20 mg = 1 tab, Oral, Daily, # 90 tab, 4 Refill(s), Pharmacy: [id number], 157, cm, 04/22/22 20:46:00 EST, Height/Length Dosing, 122.47, kg, 04/22/22 20:46:00 EST, Weight Dosing Start Date: 07/04/22 Status: Ordered triamcinolone 0.1% topical cream 1 che, Topical, TID, PRN not specified, Apply to affected areas as needed., # 30 g, 0 Refill(s), Pharmacy: [facility], 155, cm, 09/23/21 4:52:00 EDT, Height/Length [...] a Covid PCR test this afternoon. 3per [facility] ortho note Procedures Procedure Date Related Diagnosis [...] disease, colon polypx2. 2Normal. 3Revision in 2013 Vital Signs Most recent to oldest [Reference Range]: 1 Peripheral Pulse Rate [60-100 bpm] 78 bp m (10/18/22 10:57 AM) Blood Pressure [90-140/60-90 mmHg] 122/6 3mmHg (10/18/22 10:57 AM) Weight 122.05 kg (10/18/22 10:57 AM) Weight Measured (lbs) 269.074 lb (10/18/22 10:57 AM) Social History Social History Type Response Tobacco Former tobacco user Tobacco Use:. Sex Female Physician Outpatient Note * Alina Fernandez COMMUNITY MANAGER: PERFORM Event Display: Office Clinic Note Physician Authored Date: [id number] SURYA QUINTANA :1950 Age:72 years Sex:Female Visit Date:10/18/2022 Primary Care Physician: Dandy Driscoll NP History of Present Illness Cardiac problems: 1. ??Aortic stenosis,??mild in June??2020 2. ??Morbid obesity 3.?? Edema, with elevated BNP-Discontinued Lasix 06/2022 and started torsemide 20 mg daily 4. ??Hypertension-lisinopril 10mg, Asa 81mg 5.?? Hyperlipidemia 6.?? Renal impairment ?? This is a 72 year old female who??Dr. Haley??last saw here on July 04,??2022 regarding Edema andelevated BNP.??He discontinued her Lasix and started her on Torsemide 20mg daily. They discussed increasing exercise, decreasing fluids, and monitoring her weight at home with a scale of her own. Shecalled??the office a few days later and was quite confused regarding her care and had numerous quest ions. She is here today for follow up. It looks like Dr. Haley did order a Lexiscan stress test due to her reported chest pain, but she decided to decline at scheduling. ?? She states that she has been doing ok overall but that she is just mainly concerned about if she can get rid of her water pill. She is currently on 20mg of Torsemide and is usually taking it at 2-230pm in the afternoon. She states that she doesn't get up till 10am, and then can't take the medication if she has appointments or is going shopping or to the food shelf. She is adamant that she can notbe tied to the toilet or have to go while in the car. She aims to get home daily at 2pm and takes the medication then. She urinates within 10- 15minutes and every 20 minutes for about 6 hours. She says she is back to normal around 9pm and denies nocturia. She feels that the edema has gotten slightly better while on the Torsemide 20mg but definitely not worse. She states that she is drinking only 2cups of water a day and denies prepackaged foods. ? She is not currently exercising. She reports back and bilateral hip pain with activity and can not walk on her road due to high speed traffic. She states her back and hip pain are too much to walkwith and will only walk from chair to kitchen in her house.She was very persistent that she had no options to walk because she didn't??have a car to go places to walk.??She denies chest pain or SOB with this activity. If she goes shopping, she is currently using a motorized cart. She denies chest pain, palpitations, syncope, orthopnea, PND. She is able to sleep on 1 pillow through the night and does not wake with SOB. Review of Systems A complete review of systems is negative other than as noted in the history of present illness. Physical Exam Vitals & Measurements HR:??78??(Peripheral)?? BP:??122/63?? SpO2:??93%?? WT:??122.05??kg?? HEENT: Normocephalic, atraumatic Respirations: Clear to auscultation bilaterally with no wheezes rubs or rhonchi Cardiac: Regular rate and rhythm, normal S1,??there is a 3/6 late systolic harsh murmur heard throughout pericardium, greatest at right upper sternal border, S2 is difficult to hear,??no??gallops or rubs Abdomen: Nontender nondistended normal active bowel sounds Extremities: 2+ dorsalis pedis pulses bilaterally with??1+ edema Medical Decision Making Data Reviewed: Echo: 04/24/2022: Ejection fraction 65% with normal wall motion. There is mild to moderate aortic stenosis with mean gradient of 17mmHG, DI og 0.53, calculated valve area of 1.4 cm2, and peak velocityof 2.8 m/s. EK06/26/2022: Sinus Rhythm at 87 bpm. Axes and intervals are within normal limits. No evidence ofischemia or prior infarct. There are Q waves in lead III, but no concerning findings on this EKG. 10/18/2022: EKG: Sinus rhythm at 74bpm, axes and intervals within normal limits. No evidence of ischemia or prior infarction. ? 72-year old woman with??heart failure ?? Heart Failure: Her echo??a few months ago was??reassuring; she has normal systolic function, and normal diastolic function. She is currently finding it difficult to adhere to a schedule with her Torsemide. It sounds like when she is taking the medication, it is at a therapeutic level. We discussed that tt would be to her advantage to add on Entresto and Jardiance to her medication regimen. We will discontinue her lisinopril today. We spoke about waiting 2 days before starting the Entresto and Jardiance, to allow for proper time for the lisinopril to dissipate in her body. We also strongly encouraged her today to increase her exercise. I think this will be linares to help with her fatigue and her cardiac endurance. We discussed even 15 minutes in one direction at a store and 15 minutes back. We also discussed continuing to cut down her fluids. It sounds like she is still drinking significantfluids with telling me two water bottles, but then 9 (ketchup packet-size) of water. ?? Chest pain: She had a stress test ordered by Dr. Haley related to reported chest pain but Surya had chosen not to move forward with the test. She states that she has had no chest pain since that appointment and sees no point in moving forward with this. No change to this at this time. ?? Aortic stenosis: She has a 3/6 murmur on exam today. We will continue to monitor this with yearly echocardiograms. No change at this time. ?? We will see her back in 3 months to see how she is doing. It was a pleasure to see Surya. Clinic Assessment/Plan Heart failure??I50.9 Actions: ORDERED - empagliflozin, 10 mg = 1 tab, Oral, every morning, # 90 tab, 2 Refill(s), Pharmacy: [facility], 157, cm, 07/12/22 4:56:00 EDT, Height/Length Dosing, 125.7, kg, 07/12/22 4:56:00 EDT, Weight Dosing ORDERED - sacubitril-valsartan, 1 tab, Oral, BID, # 180 tab, 2 Refill(s), Pharmacy: [facility], 157, cm, 07/12/22 4:56:00 EDT, Height/Length Dosing, 125.7, kg, 07/12/22 4:56:00 EDT, Weight Dosing COMPLETED - 07386 Office/Outpatient Visit - Established Patient, Level 4 (30-39 min)., 10/18/22 10:56:00 EDT, Heart failure FUTURE - Follow-Up Appointment Request NCTY, *Est. 01/22/23 +/- 21 days, Future Order, In [facility] ?? HTN (hypertension)??I10 Actions: DISCONTINUED - lisinopril, 10 mg = 1 tab, Oral, Daily, # 90 tab, 2 Refill(s), Pharmacy: [facility], 155, cm, 09/23/21 4:52:00 EDT, Height/Length Dosing, 125, kg, 09/23/21 4:52:00 EDT, Weight Dosing [facility] - [facility] ECG Clinic, 10/18/22 10:56:00 EDT, Routine, Reason: Hypertension w/ Intent to Guide Therapy, Stop date and time 10/18/22 10:56:00 EDT, HTN (hypertension), ORD_SET_REQ_DT_RANGE, [facility] Person Id ?? Problem List/Past Medical History Ongoing Acute diastolic [...] of patellar tendon (04/1968)???Dilatation and curettage Medications What How Much When Why Instructions New empagliflozin (Jardiance 10 mg oral tablet) 1 tab Oral (given by mouth) Every morning Heart failure Refills: 2 Pickup at [facility] New furosemide (furosemide 20 mg oral tablet) 30 EA, TAKE ONE TABLET BY MOUTH EVERY DAY ?? New sacubitril-valsartan (Entresto 24 mg-26 mg oral tablet) 1 tab Oral (given by mouth) 2 times a day Heart failure Refills: 2 Pickup at [facility] Unchanged albuterol (Albuterol (Eqv-ProAir HFA) 90 mcg/ inh inhalation aerosol) 2 Puffs Inhale (breathe in) Every 4 hours as needed for as needed for wheezing Asthma Unchanged albuterol (albuterol 2.5 mg/ 3 mL (0.083%) inhalation solution) 3 Milliliters Nebulized inhalation (inhale using nebulizer) Every 4 hours as needed for as needed for wheezing RSV infection COPD with exacerbation Cough Unchanged aspirin (aspirin 81 mg oral delayed [...] Unchanged lactobacillus acidophilus (Acidophilus oral capsule) Unchanged loperamide (loperamide 2 mg oral capsule) 1 Capsules Oral (given by mouth) 3 times a day as needed for as needed for loose stool Unchanged naproxen (naproxen 500 mg oral tablet) 1 tab Oral (given by mouth) 2 times a day Unchanged nystatin topical (Nyamyc 100,000 units/ g topical powder) See instructions Yeast infection Topical BID as needed for yeast ?? Unchanged ocular lubricant (Sterile Lubricating Tears ophthalmic solution) Unchanged phenazopyridine (Azo-Standard) 400 Milligrams Oral (given by mouth) Patient reports once a day, (AZO YEAST). ?? Unchanged prednisoLONE ophthalmic (prednisoLONE acetate 0.12% ophthalmic suspension) Unchanged tobramycin ophthalmic (tobramycin 0.3% ophthalmic solution) [...] affected areas as needed. ?? Pharmacy Information [facility]: [address], [place] [id number] [phone] ?? What How Much When Why Comments Stop Taking lisinopril (lisinopril 10 mg oral tablet) 1 tab Oral (given by mouth) Every day Hypertensive disorder Allergies Tape??(Unknown) ALCOHOL azithromycin??(Swollen face) meperidine??(Bewilderment) penicillins??(Swelling, [...] of : Murder Immunizations Vaccine Date Status influenza virus vaccine, inactivated 02/05/2022 Recorded Comments : Given at the pharmacy-see record zoster vaccine, inactivated 12/13/2021 Recorded zoster vaccine, inactivated 09/29/2021 Recorded pneumococcal 23-polyvalent vaccine 09/23/2021 Recorded Comments : [facility] [id number] (booster only) vacc 09/23/2021 Recorded influenza, unspecified formulation 01/07/2021 Recorded SARS-CoV-2 (COVID-19) mRNA-1273 vaccine 07/09/2020 Recorded [id number]-[id number]-1-mRNA-1273 (booster only) vacc 07/09/2020 Recorded SARS-CoV-2 (COVID-19) mRNA-1273 vaccine 06/11/2020 Recorded SARS-CoV-2 (COVID-19) mRNA-1273 vaccine 06/11/2020 Recorded Comments : 1st vaccine Td(adult) unspecified formulation - Not Given Comments : Patient Refuses Last Modified by Azra Dykes, [employer] Windows Engineer ??04-27-2020, 11:54 influenza, unspecified formulation 01/02/2020 Recorded [...] Recorded influenza virus vaccine, inactivated 02/07/2012 Recorded influenza virus vaccine, inactivated 01/10/2010 Recorded Novel [id number], all formulation 04/29/2009 Recorded influenza virus vaccine, inactivated 02/13/2008 Recorded pneumococcal 23-polyvalent vaccine 02/13/2008 Recorded influenza virus vaccine, inactivated 01/30/2007 Recorded influenza virus vaccine, inactivated 12/08/2005 Recorded influenza virus vaccine, inactivated 01/08/2004 Recorded pneumococcal 7-valent vaccine Recorded Electronically Signed on 10/18/22 11:49 AM Alina Fernandez COMMUNITY MANAGER Patient Care team information Care Team Personnel Name: Dandy Driscoll NP Position: Physician Member Role: Informed Provider Address: Address: [address] Care Team Related Persons Name: ASH QUINTANA
--- OUTSIDE RECORDS SUMMARY | 2024-02-27 19:30 | XMS_ITS | Continuity of Care Document ---
Author Organization [facility] Address [address] [place] [address] Care Team Providers Care Juvenile Correctional Officer Name Role Phone Dandy Driscoll Primary Care Physician [phone] Encounter [facility] Date(s): 04/21/22 - 04/21/[address] [address] Encounter Diagnosis RSV infection(Discharge Diagnosis) - 04/21/22 COPD with exacerbation(Discharge Diagnosis) - 04/21/22 Cough(Discharge Diagnosis) - 04/21/22 Discharge Disposition: Home or Self Care Attending Physician: Evan Zabala MD Admitting Physician: Evan Zabala MD Allergies, Adverse Reactions, Alerts Substance Reaction Severity Status ALCOHOL 1 Moderate Active meperidine Bewilderment Unknown Active azithromycin Swollen face Unknown Active penicillins Swelling Other Unknown Active tetanus toxoids Unknown Active 1Rubbing Assessment and Plan Extracted from: Title:Clinical Document Author:Randa Pierce te:04/21/22 Diagnosis: 1. RSV infection Comment: Diagnosis: 2. COPD with exacerbation Comment: Diagnosis: 3. Cough Comment: Diagnosis: UC - Difficulty Breathing Comment: Future Appointments Functional Status 04/21/22 Assistive Device Crutches, Other: uzbek crutches Family Member Travel History No recent t ravel Recent Travel History No recent travel Other exposure to Infectious Disease Non e Immunizations Given and Recorded Vaccine Date Status Refusal Reason pneumococcal 23-polyvalent vaccine 1 09/23/21 Bc rded pneumococcal 23-polyvalent vaccine 02/13/08 Record ed [id number] (booster only) vacc 09/23/21 Recorded [id number] (booster only) vacc 07/09/20 Recorded influenza, unspecified [...] rded zoster vaccine live 01/22/13 Recorded Novel [id number], all formulation 04/29/09 Recorded pneumococcal 7-valent vaccine 04/09/00 Recorded Not Given Vaccine Date Status Refusal Reason Td(adult) unspecified formulation 3 04/27/20 Not G iven Patient Refuses 1Result Comment: [facility] 2Result Comment: 1st vaccine 3Result Comment: Last Modified by Azra Dykes, Recruiting Operations Consultant 04-27-2020, 11:54 Medications !-DuoNeb 0.5 mg-2.5 mg/3 mL inhalation solution 3 mL, NEB, QID, # 120 EA, 0 Refill(s), Pharmacy: [id number], 157, cm, 04/21/22 4:43:00 EST, Height/Length [...] BID, # 28 EA, 4 Refill(s), Pharmacy: [facility], 155, cm, 09/23/21 4:52:00 EDT, Height/Length Dosing, 125, kg, 09/23/21 4:52:00 EDT, Weight Dosing Start Date: 11/24/21 Status: Ordered Albuterol (Eqv-ProAir HFA) 90 mcg/inh inhalation aerosol 180 mcg 2 puffs, Inhale, every 4 hr, PRN as needed for wheezing, # 8.5 g, 2 Refill(s), Pharmacy: [facility], 155, cm, 09/23/21 4:52:00 EDT, Height/Length Dosing, 125, kg, 09/23/21 4:52:00 EDT, Weight Dosing Start Date: 11/21/21 Status: Ordered albuterol 2.5 mg/3 mL (0.083%) inhalation solution 2.5 mg = 3 mL, NEB, every 4 hr, PRN as needed for wheezing, # 180 mL, 3 Refill(s), Pharmacy: [facility], 157, cm, 04/21/22 4:43:00 EST, Height/Length Dosing, 122.47, kg, 04/21/22 4:43:00 EST, Weight Dosing Start Date: 04/21/22 Status: Ordered Aleve Topical, PRN as needed [...] cough, # 42 cap, 0 Refill(s), Pharmacy: [facility], 157, cm, 04/17/22 0:36:00 EST, Height/Length Dosing, 124.8, kg, 04/17/22 0:36:00 EST, WeightDosing Start Date: 04/19/22 Stop Date: 05/03/22 Status: Ordered buPROPion 300 mg/24 hours (XL) oral tablet, extended release 300 mg = 1 tab, Oral, Daily, # 90 tab, 2 Refill(s), Pharmacy: [facility], 155, cm, 09/23/21 4:52:00 [...] Daily, # 90 tab, 2 Refill(s), Pharmacy: [facility], 155, cm, 09/23/21 4:52:00 EDT, Height/Length Dosing, 125, kg, 09/23/21 4:52:00 EDT, Weight Dosing Start Date: 11/21/21 Status: Ordered loperamide 2 mg oral capsule 2 mg = 1 cap, Oral, TID, PRN as needed for loose stool, # 270 cap, 1 Refill(s), Pharmacy: [facility], 155, cm, 09/23/21 4:52:00 EDT, Height/Length Dosing, 125, kg, 09/23/21 4:52:00 EDT, Weight Dosing Start Date: 11/21/21 Status: Ordered naproxen 500 mg oral tablet 500 mg = 1 tab, Oral, BID, # 60 tab, 1 Refill(s), Pharmacy: [facility], 155,cm, 09/23/21 4:52:00 EDT, Height/Length Dosing, 125, kg, 09/23/21 4:52:00 EDT, Weight Dosing Start Date: 11/21/21 Status: Ordered Nyamyc 100,000 units/g topical powder See Instructions, Topical BID as needed for yeast, # 30 g, 0 Refill(s), Pharmacy: [facility], 155, cm, 09/23/21 4:52:00 EDT, Height/Length Dosing, 125, kg, 09/23/21 4:52:00 EDT, Weight Dosing Start Date: 11/21/21 Status: Ordered predniSONE 20 mg oral tablet 60 mg = 3 tab, Oral, Daily, 3 tablets for 3 days followed by 2 tabs for 3 days followed by 1 tab for 3 days with food or milk, # 18 tab, 0 Refill(s), Pharmacy: [facility], 157, cm, 234:43:00 EST, Height/Length Dosing, 122.47, kg, ... Start Date: 04/21/22 Status: Ordered torsemide 10 mg oral tablet 10 mg = 1 tab, Oral, Daily, # 30 tab, 0 Refill(s), Pharmacy: [facility], 157, cm, 04/17/22 0:36:00 EST, Height/Length Dosing, 124.8, kg, 04/17/22 0:36:00 EST, Weight Dosing Start Date: 04/19/22 Status: Ordered triamcinolone 0.1% topical cream 1 che, Topical, TID, PRN not specified, Apply to affected areas as needed., # 30 g, 0 Refill(s), Pharmacy: [facility], 155, cm, 09/23/21 4:52:00 EDT, Height/Length Dosing, 125,kg, 09/23/21 4:52:00 EDT, Weight Dosing Start Date: 11/21/21 Status: Ordered Problem List Condition Confirmation Course Effective Dates Status Health Status Informant Anemia following acute postoperative blood loss Confirmed [...] arthroplasty Confirmed 02/14/18 Active Hyperlipidemia Confirmed Active Hypersomnia Confirmed Active Hypertensive disorder Confirmed Active Idiopathic osteoarthritis Confirmed Active Impaired renal function disorder 3 Confirmed 03/22/18 Active 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 3per [facility] ortho note Procedures Procedure Date Related Diagnosis [...] in 2013 Results Laboratory List Name Date NT- Pro BNP 04/21/22 SARS-CoV-2 (COVID-19)/Flu/RSV (GeneXpert ) 04/21/22 Troponin-I 04/21/22 Automated Diff 04/21/22 Basic Metabolic Panel (BMP) 04/21/22 CBC w/ Diff 04/21/22 Most recent to oldest [Reference Range]: 1 WBC [5.0-10.0 x10^3/mcL] 12.5 x10^3/mcL *HI* (04/21/22 9:50 AM) RBC [4.1-5.3 x10^6/mcL] 4.2 x10^6/mcL (04/21/22 9:50 AM) Neutro Auto [40.0-75.0 %] 76.1 % *HI* (04/21/22 9:50 AM) Lymph Auto [20.0-50.0 %] 13.6 % *LOW* (04/21/22 9:50 AM) Dixie Auto [2.0-15.0 %] 7.7 % (04/21/22 9:50 AM) Basophil Auto [0.0-1.0 %] 0.2 % (04/21/22 9:50 AM) BUN [7-18 mg/dL] 18 mg/dL (04/21/22 9:50 AM) Glucose Level [74-106 mg/dL] 137 mg/dL *HI* (04/21/22 9:50 AM) Potassium Level [3.5-5.1 mmol/L] 3.9 mmo l/L (04/21/22 9:50 AM) MCV [80.0-96.0] 98.6 *HI* (04/21/22 9:50 AM) MCHC [31.0-35.0 g/dL] 32.1 g/dL (04/21/22 9:50 AM) Troponin-I [0.0-51.4 pg/mL] 11.0 pg/mL (04/21/22 11:20 AM) Sodium Level [136-145 mmol/L] 140 mmol/L (04/21/22 9:50 AM) Hct [37.0-47.0 %] 41.4 % (04/21/22 9:50 AM) Calcium Level [8.5-10.1 mg/dL] 8.7 mg/dL (04/21/22 9:50 AM) MCH [26.0-32.0 pg] 31.7 pg (04/21/22 9:50 AM) Neutro Absolute 9.5 x10^3/mcL *NA* (04/21/22 9:50 AM) Hgb [12.0-16.0 g/dL] 13.3 g/dL (04/21/22 9:50 AM) Platelets [130-450 x10^3/mcL] 230 x10^3/ mcL (04/21/22 9:50 AM) CO2 [21-32 mmol/L] 29 mmol/L (04/21/22 9:50 AM) eGFR Non-AA [>=60] 84 (04/21/22 9:50 AM) eGFR AA [>=60] 84 (04/21/22 9:50 AM) NT-proBNP [0-125 pg/mL] 168 pg/mL *HI* (04/21/22 11:20 AM) Chloride Level [98-107 mmol/L] 103 mmol/ L (04/21/22 9:50 AM) RDW-CV [11.7-17.0 %] 14.6 % (04/21/22 9:50 AM) Imm Gran Auto [0.0-0.9 %] 0.5 % (04/21/22 9:50 AM) Creatinine Level [0.55-1.02 mg/dL] 0.76 mg/dL (04/21/22 9:50 AM) Employed in healthcare? Unknown *NA* (04/21/22 11:20 AM) Symptomatic as defined by CDC? Unknown *NA* (04/21/22 11:20 AM) Hospitalized due to COVID-19? No *NA* (04/21/22 11:20 AM) In ICU? No *NA* (04/21/22 11:20 AM) Group care resident? No *NA* (04/21/22 11:20 AM) status? Not *NA* (04/21/22 11:20 AM) SARS-CoV-2(Covid19)PCR(GXpert COVFLURSV) [Negative] Negative (04/21/22 11:20 AM) Flu A ([facility]Xpert COVFLURSV) [Negative] Nega tive (04/21/22 11:20 AM) RSV ([facility]Xpert COVFLURSV) [Negative] Positi ve *ABN* (04/21/22 11:20 AM) Flu B (GXpert COVFLURSV) [Negative] Nega tive (04/21/22 11:20 AM) Eos, Auto [1.0-6.0 %] 1.9 % (04/21/22 9:50 AM) Vital Signs Most recent to oldest [Reference Range]: 1 2 3 Temperature Temporal Artery [36-38 Deg C] 36 Deg C (04/21/22 4:31 AM) Peripheral Pulse Rate [60-100 bpm] 102 bpm *HI* (04/21/22 1:19 PM) 102 bpm *HI* (04/21/22 12:56 PM) 95 bpm (04/21/22 12:30 PM) Heart Rate Monitored [60-100 bpm] 104 bpm *HI* (04/21/22 1:19 PM) 102 bpm *HI* (04/21/22 12:56 PM) 98 bpm (04/21/22 12:30 PM) Respiratory Rate [12-24 br/min] 22 br/min (04/21/22 1:19 PM) 17 br/min (04/21/22 12:56 PM) 16 br/min (04/21/22 12:30 PM) Blood Pressure [90-140/60-90 mmHg] 104/85mmHg (04/21/22 1:19 PM) 140/70mmHg (04/21/22 12:56 PM) 140/71mmHg (04/21/22 11:00 AM) Mean Arterial Pressure, Cuff [65-140 mmHg] 91 mmHg (04/21/22 1:19 PM) 93 mmHg (04/21/22 12:56 PM) 94 mmHg (04/21/22 11:00 AM) Weight 122.47 kg (04/21/22 4:31 AM) Weight Dosing 122.47 kg (04/21/22 4:43 AM) Height 157.000 cm (04/21/22 4:31 AM) Height/Length Dosing 157.000 cm (04/21/22 4:43 AM) Body Mass Index 50.000 kg/m2 (04/21/22 4:31 AM) Social History Social History Type Response Tobacco Former tobacco user Tobacco Use:. Sex Female Hospital Discharge Instructions Patient Education 04/21/2022 12:20:36 Respiratory Syncytial Virus Infection, Adult Respiratory Syncytial Virus Infection, Adult Respiratory syncytial virus (RSV) infection is an infection caused by RSV, a common virus. This virus is similar to viruses that cause the common cold and the flu. RSV infection can affect the nose, throat, windpipe, and lungs (respiratory system). When the infection is severe, it can cause: ??? Bronchiolitis. This condition causes inflammation of the air passages in the lungs (bronchioles). ??? Pneumonia. This condition causes inflammation of the air sacs in the lungs. RSV infection spreads from person to person (is contagious) through droplets from coughs and sneezes (respiratory secretions). This condition is rarely serious when it occurs in adults. What are the causes? This condition is caused by contact with RSV. This can happen by: ??? Breathing respiratory secretions from someone who has the infection. ??? Touching something that has been exposed to the virus (is contaminated) and then touching your mouth, nose, or eyes. ??? Coming in close contact with someone who has this infection. This may happen if you: ??? Hug or kiss. ??? Shake or hold hands. ??? Eat or drink using the same dishes or utensils. What increases the risk? The following factors may make you more likely to develop this condition: ??? Being 65 years of age or older. ??? Having certain health conditions, including: ??? A long-term (chronic) lung condition, such as chronic obstructive pulmonary disease (COPD). ??? An immune system that is weak. This is your body's defense system. ??? Down syndrome. ??? Heart disease. ??? Working in a hospital or other health care facility. ??? Living in a long-term health care facility. RSV infections are most common from the months of February to July, but they can happen any time of year. What are the signs or symptoms? Symptoms of this condition include: ??? Having a runny nose. ??? Coughing. You may have a cough that brings up mucus (productive cough). ??? Sneezing. ??? Having a fever. ??? Wanting to eat less than usual. ??? Breathing loudly (wheezing). ??? Having shortness of breath. ??? Having fluid build up in the lungs (respiratory distress). How is this diagnosed? This condition may be diagnosed based on: ??? Your symptoms. ??? Your medical history. ??? A physical exam. ??? A chest X-ray to rule out pneumonia. ??? Blood tests or tests of mucus from your lungs (sputum). These tests may be done for older adults. ??? A test of a sample of your respiratory secretions. How is this treated? In most cases, the RSV infection will go away after 1???2 weeks of caring for yourself at home. Sometimes, RSV infection is severe and can cause bronchiolitis or pneumonia. If you develop one or both of these conditions, you may need to be treated in the hospital. You may be given: ??? Oxygen therapy. ??? Antiviral medicine. ??? Medicines to open your bronchioles (bronchodilators). Follow these instructions at home: Medicines ??? Take phwc-czn-avzkrvr and prescription medicines only as told by your health care provider. ??? If you were prescribed an antiviral medicine, take it as told by your health care provider. Do not stop using the antiviral even if you start to feel better. Lifestyle ??? Eat a healthy diet. ??? Do not drink alcohol. ??? Do not use any products that contain nicotine or tobacco, such as cigarettes, e-cigarettes, andchewing tobacco. If you need help quitting, ask your health care provider. ??? Rest at home until your symptoms go away. ??? Return to your normal activities as told by your health care provider. Ask your health care provider what activities are safe for you. General instructions ??? Drink enough fluid to keep your urine pale yellow. ??? Gargle with a salt???water mixture 3???4 times a day or as needed. To make a salt???water mixture, completely dissolve ?1 tsp (3???6 g) of salt in 1 cup (237 mL) of warm water. ??? Keep all follow-up visits as told by your health care provider. This is important. How is this prevented? To prevent catching and spreading RSV: ??? Wash your hands often with soap and water for at least 20 seconds. If soap and water are not available, use hand top frame maker. Do not touch your face without first cleaning your hands. ??? Stay home if you have symptoms of the common cold or the flu. ??? Cover your nose and mouth when you cough or sneeze. ??? Avoid large groups of people. ??? Keep a safe distance of about 6 feet (1.8 m) from people who are coughing or sneezing. Where to find more information ??? Centers for Disease Control and Prevention: www.cdc.gov Contact a health care provider if: ??? Your symptoms get worse or have not changed after 2 weeks. ??? You have: ??? A fever. ??? Hot flashes, sweating, or chills that keep happening. ??? A cough that brings up much more mucus than usual. ??? A cough that brings up blood. ??? You feel: ??? Very tired (lethargic). ??? Confused. Get help right away if: ??? You have increased or severe trouble breathing. ??? You lose consciousness. These symptoms may represent a serious problem that is an emergency. Do not wait to see if the symptoms will go away. Get medical help right away. Call your local emergency services (911 in the [place] Do not drive yourself to the hospital. Summary ??? Respiratory syncytial virus (RSV) infection is an infection caused by RSV, a common virus. RSV infection can affect the nose, throat, windpipe, and lungs (respiratory system). ??? When the infection is severe, it can cause bronchiolitis or pneumonia. ??? Take jllg-bqa-lfewxqd and prescription medicines only as told by your health care provider. ??? Contact a health care provider if your symptoms get worse or have not changed after 2 weeks. This information is not intended to replace advice given to you by your health care provider. Make sure you discuss any questions you have with your health care provider. Document Revised: 01/14/2020 Document Reviewed: 01/14/2020 [employer] Patient Education ?? 2021 [employer]. 04/21/2022 12:16:36 Chronic Obstructive Pulmonary Disease Exacerbation Chronic Obstructive Pulmonary Disease Exacerbation Chronic obstructive pulmonary disease (COPD) is a long-term (chronic) condition that affects the lungs. COPD is a general term that can be used to describe many different lung problems that cause lung inflammation and limit airflow, including chronic bronchitis and emphysema. COPD exacerbations areepisodes when breathing symptoms flare up, become much worse, and require extra treatment. COPD exacerbations are usually caused by infections. Without treatment, COPD exacerbations can be severe and even life threatening. Frequent COPD exacerbations can cause further damage to the lungs. What are the causes? This condition may be caused by: ??? Respiratory infections, including viral and bacterial infections. ??? Exposure to smoke. ??? Exposure to air pollution, chemical fumes, or dust. ??? Things that can cause an allergic reaction (allergens). ??? Not taking your usual COPD medicines as directed. ??? Underlying medical problems, such as congestive heart failure or infections not involving the lungs. In many cases, the cause of this condition is not known. What increases the risk? The following factors may make you more likely to develop this condition: ??? Smoking cigarettes. ??? Being an older adult. ??? Having frequent prior COPD exacerbations. What are the signs or symptoms? Symptoms of this condition include: ??? Increased coughing. ??? Increased production of mucus from your lungs. ??? Increased wheezing and shortness of breath. ??? Rapid or labored breathing. ??? Chest tightness. ??? Less energy than usual. ??? Sleep disruption from symptoms. ??? Confusion ??? Increased sleepiness. Often, these symptoms happen or get worse even with the use of medicines. How is this diagnosed? This condition is diagnosed based on: ??? Your medical history. ??? A physical exam. You may also have tests, including: ??? A chest X-ray. ??? Blood tests. ??? Lung (pulmonary) function tests. How is this treated? Treatment for this condition depends on the severity and cause of the symptoms. You may need to be admitted to a hospital for treatment. Some of the treatments commonly used to treat COPD exacerbations are: ??? Antibiotic medicines. These may be used for severe exacerbations caused by a lung infection, such as pneumonia. ??? Bronchodilators. These are inhaled medicines that expand the air passages and allow increased airflow. They may make your breathing more comfortable. ??? Steroid medicines. These act to reduce inflammation in the airways. They may be given with an inhaler, taken by mouth, or given through an IV tube inserted into one of your veins. ??? Supplemental oxygen therapy. ??? Airway clearing techniques, such as noninvasive ventilation (NIV) and positive expiratory pressure (PEP). These provide respiratory support through a mask or other noninvasive device. An example of this would be using a continuous positive airway pressure (CPAP) machine to improve delivery of oxygen into your lungs. Follow these instructions at home: Medicines ??? Take wodj-ers-mrhxurh and prescription medicines only as told by your health care provider. ??? It is important to use correct technique with inhaled medicines. ??? If you were prescribed an antibiotic medicine or oral steroid, take it as told by your health care provider. Do not stop taking the medicine even if you start to feel better. Lifestyle ??? Do not use any products that contain nicotine or tobacco. These products include cigarettes, chewing tobacco, and vaping devices, such as e-cigarettes. If you need help quitting, ask your health care provider. ??? Eat a healthy diet. ??? Exercise regularly. ??? Get enough sleep. Most adults need 7 or more hours per night. ??? Avoid exposure to all substances that irritate the airway, especially tobacco smoke. ??? Regularly wash your hands with soap and water for at least 20 seconds. If soap and water are not available, use hand top frame maker. This may help prevent you from getting infections. ??? During flu season, avoid enclosed spaces that are crowded with people. General instructions ??? Drink enough fluid to keep your urine pale yellow, unless you have a medical condition that requires fluid restriction. ??? Use a cool mist vaporizer. This humidifies the air and makes it easier for you to clear your chest when you cough. ??? If you have a home nebulizer and oxygen, continue to use them as told by your health care provider. ??? Keep all follow-up visits. This is important. How is this prevented? Stay up-to-date on pneumococcal and flu (influenza) vaccines. A flu shot is recommended every year to help prevent exacerbations. ??? Quitting smoking is very important in preventing COPD from getting worse and in preventing exacerbations from happening as often. ??? Follow all instructions for pulmonary rehabilitation after a recent exacerbation. This can helpprevent future exacerbations. ??? Work with your health care provider to develop and follow an action plan. This tells you what steps to take when you experience certain symptoms. Contact a health care provider if: ??? You have a worsening of your regular COPD symptoms. Get help right away if: ??? You have worsening shortness of breath, even when resting. ??? You have trouble talking. ??? You have severe chest pain. ??? You cough up blood. ??? You have a fever. ??? You have weakness, vomit repeatedly, or faint. ??? You feel confused. ??? You are not able to sleep because of your symptoms. ??? You have trouble doing daily activities. These symptoms may represent a serious problem that is an emergency. Do not wait to see if the symptoms will go away. Get medical help right away. Call your local emergency services (911 in the [place] Do not drive yourself to the hospital. Summary ??? COPD exacerbations are episodes when breathing symptoms become much worse and require extra treatment above your normal treatment. ??? Exacerbations can be severe and even life threatening. Frequent COPD exacerbations can cause further damage to your lungs. ??? COPD exacerbations are usually triggered by infections such as the flu, colds, and even pneumonia. ??? Treatment for this condition depends on the severity and cause of the symptoms. You may need marcia admitted to a hospital for treatment. ??? Quitting smoking is very important to prevent COPD from getting worse and to prevent exacerbations from happening as often. This information is not intended to replace advice given to you by your health care provider. Make sure you discuss any questions you have with your health care provider. Document Revised: 02/01/2021 Document Reviewed: 02/01/2021 [employer] Patient Education ?? 2021 [employer] Follow Up Care 04/21/2022 04:31:24 With:Follow up with primary care provider Address: When:1 to 2 weeks Respiratory therapy Hospital Progress note * Lori Ron: PERFORM Event Display: Respiratory Therapy Progress Note Authored Date: [id number] X1 Duoneb given by nursing around 1000. Around 1040, this RT walked tested the pt on room air per MD request. SpO2 ranged from 93-95%; no O2 needed. X1 duoneb given after walking. Breath sounds clearwith diminished bases. Pt did have laryngeal wheezing with exertion but subsided once she sat down to rest. Electronically Signed on 04/21/22 02:43 PM Asaf Lori * Ines Luz: PERFORM Event Display: Respiratory Therapy Progress Note Authored Date: [id number] ??SURYA QUINTANA 72 Years MEASURED Body Mass Index: 50 kg/m2 (04/21/22 04:31:00) BSA Measured: 2.3 m2 (04/06/22 13:25:00) Height: 157 cm (04/21/22 04:31:00) Weight: 122.47 kg (04/21/22 04:31:00) DOSING Height/Length Dosin cm (04/21/22 04:43:44) Weight Dosin.47 kg (04/21/22 04:43:44) Respiratory Shift Summary Breath Sounds: Exp wheeze Shift Treatments: Duoneb Shift Events: Pt c/o of SOB and cough for several days. Home tx not working. Pt is not on O2 @ baseline but is via NC here in ED. Pt has had little relief of symptoms. Duoneb administered, pt states she doesn't feel much improvement @ this time. Will continue to monitor. Electronically Signed on 04/21/22 05:28 AM Ines Luz Physician Emergency department Note * Awilda Ch MD: PERFORM Event Display: ED Note Physician Authored Date: [id number] SURYA QUINTANA :1950 Age:72 years Sex:Female Visit Date:04/21/2022 Primary Care Physician: Dandy Driscoll PACKING ATTENDANT Signout received from Dr. Zabala.??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
--- OUTSIDE RECORDS SUMMARY | 2024-02-27 19:30 | XMS_ITS | Continuity of Care Document ---
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 02/26/23?? 29?? Alk Phos?? 02/27/23 10:51?? 62?? 02/26/23?? 58?? AST?? 02/27/23 10:51?? 7 ??Low?? 02/26/23?? 12 ??Low?? ALT?? 02/27/23 10:51?? 13 ??Low?? 02/26/23?? 16?? BUN?? 02/27/23 10:51?? 6 ??Low?? 02/26/23?? 11?? Glucose Level?? 02/27/23 10:51?? 123 ??High?? 02/26/23?? 115 ??High?? Creatinine Level?? 02/27/23 10:51?? 0.64?? 02/26/23?? 0.71?? eGFR AA?? 02/27/23 10:51?? 94?? 02/26/23?? 91?? eGFR Non-AA?? 02/27/23 10:51?? 94?? 02/26/23?? 91?? Calcium Level?? 02/27/23 10:51?? 8.8?? 02/26/23?? 9.3?? Protein Total?? 02/27/23 10:51?? 6.4?? 02/26/23?? 6.6?? Albumin Level?? 02/27/23 10:51?? 2.7 ??Low?? 02/26/23?? 3.1 ??Low?? Bilirubin Total?? 02/27/23 10:51?? 1.3 ??High?? 02/26/23?? 0.8?? Lactic Acid Lvl?? 02/27/23 10:51?? 0.9?? 02/26/23?? 1.2?? Lipase Level?? 02/27/23 10:51?? 11 ??Low?? 02/26/23?? 13 ??Low?? Magnesium Level?? 02/27/23 10:51?? 1.7 ??Low?? 02/26/23?? 1.7 ??Low? Electronically Signed on 02/27/23 07:33 PM Wm Crystal MD Emergency department Discharge instructions * Wm Crystal MD: PERFORM Event Display: ED Discharge Information Authored Date: [id number] SURYA QUINTANA :1950 Age:72 years Sex:Female Visit Date:02/27/2023 Primary Care Physician: Dandy Driscoll MANAGER FIRE Discharge Instructions We would like to thank you for allowing us to assist you with your healthcare needs. The following includes patient education materials and information regarding your injury/illness. Diagnosis from Today's Visit Abdominal pain Discharge Vitals Temperature??(Temporal Artery) 97.9 ??F (36.6 ??C) Heart Rate??(Peripheral) 88 Heart Rate??(Monitored) 90 Respiratory Rate?? 15 Blood Pressure?? 123/85?? Height?? 61.81 in (157.000 cm) Weight?? 259.09 lb (117.50 kg) BMI?? 48.000 Allergies Tape??(Unknown) ALCOHOL azithromycin??(Swollen face) meperidine??(Bewilderment) penicillins??(Swelling, Other) tetanus toxoids What to Do Next Instructions from Your Care Team You were seen in the emergency department today for abdominal pain. ??You had a CT scan yesterday that did not show any significant abnormalities. ??Your labs today??are similar as to what they were yesterday.?? The reason for your abdominal pain is not entirely clear at this time, however??given the location and type of pain you are having, you were given a prescription for omeprazole and sucralfate.?In the event that your symptoms are due to gastritis or??a gastric ulcer this may help yourpain. ??The prescription was only for 2 weeks to see if this helps. ??Follow-up with primary care within the next couple days for reevaluation, come back to the emergency department with any worsening symptoms. You Need to Schedule the Following Appointments Follow Up with??Dandy Driscoll MANAGER FIRE When:??Within 3 to 5 days Where: [facility] [place] [address] [place] [address]- Upcoming Scheduled Appointments Sunday 2:20 PM EST ?? With: Paco Sheppard MD Where: [facility] [address] [facility], [address] [place] [address] Status: Confirmed Sunday 2:45 PM EST ?? With: Kati Soni MANAGER FIRE Where: [facility] [address] [place] [address] Status: Confirmed You were treated today on an emergency [...] Much When Why Instructions Next Dose New omeprazole (omeprazole 20 mg oral delayed releasecapsule) 1 Capsules Oral (given by mouth) Every day Abdominal pain Duration: 14 Days Pickup at [facility] New sucralfate (sucralfate 1 g oral tablet) 1 tab Oral (given by mouth) 2 times a day Abdominal pain Duration: 14 Days Pickup at [facility] Unchanged acetaminophen (Tylenol Extra Strength 500 mg oral tablet) 1 tab Oral (given by mouth) Every 4 hours as needed for as needed for pain Abdominal pain Unchanged albuterol (Albuterol (Eqv-ProAir HFA) 90 mcg/ [...] treatement qid and q3-4h prn ?? Unchanged Durable Medical Equipment for Prescription (glucometer) See instructions Diabetes test sugar daily ?? Unchanged Durable Medical Equipment for Prescription (lancets) See instructions tests blood sugar once daily ?? Unchanged Durable Medical Equipment for Prescription (test strips) See instructions test blood sugar daily ?? Unchanged empagliflozin (Jardiance 10 mg oral tablet) 1 tab Oral (given by mouth) Every morning Heart failure Unchanged fluticasone-salmeterol (Advair Diskus 500 mcg-50 mcg inhalation powder) 1 Puffs Inhale (breathe in) 2 times a day Asthma Unchanged furosemide (furosemide 20 mg oral tablet) 30 EA, TAKE ONE TABLET BY MOUTH EVERY DAY ?? Unchanged ibuprofen (ibuprofen 800 mg oral tablet) 1 tab Oral (given by mouth) 3 times a day as needed for as needed for pain Abdominal pain Unchanged ipratropium-albuterol (!-DuoNeb 0.5 mg-2.5 mg/ 3 mL inhalation solution) 3 Milliliters Nebulized inhalation (inhale using nebulizer) 4 times a day RSV infection COPD with exacerbation Cough Unchanged lactobacillus acidophilus (Acidophilus oral capsule) Unchanged loperamide (loperamide 2 mg oral capsule) 1 Capsules Oral (given by mouth) 3 times a day as needed for as needed for loose stool Unchanged mirabegron (Myrbetriq 25 mg oral tablet, extended release) 1 tab Oral (given by mouth) Every day Total urinary incontinence Incontinence without sensory awareness Recurrent urinary tract infection Abnormal vaginal bleeding Morbid obesity Impaired mobility Duration: 28 Days take with 50 mg to total 75 mg ?? Unchanged mirabegron (Myrbetriq 50 mg oral tablet, extended release) 1 tab Oral (given by mouth) Every day Total urinary incontinence Incontinence without sensory awareness Recurrent urinary tract infection Abnormal vaginal bleeding Morbid obesity Impaired mobility Duration: 21 Days do not crush or chew ?? Unchanged mirabegron (Myrbetriq 50 mg oral tablet, extended release) 1 tab Oral (given by mouth) Every day Incontinence without sensory awareness Duration: 28 Days do not crush or chew ?? Unchanged naproxen (naproxen 500 mg oral tablet) 1 tab Oral (given by mouth) 2 times a day Unchanged nystatin topical (Nyamyc 100,000 units/ g topical powder) See instructions Yeast infection Topical BID as needed for yeast ?? Unchanged ocular lubricant (Sterile Lubricating Tears ophthalmic solution) Unchanged Other Prescription ([employer]2 GLUCOSE SYST) See instructions USE TO TEST GLUCOSE LEVELS ONCE DAILY ?? Unchanged phenazopyridine (Azo-Standard) 400 Milligrams Oral (given by mouth) Patient reports once a day, (AZO YEAST). ?? Unchanged prednisoLONE ophthalmic (prednisoLONE acetate 0.12% ophthalmic suspension) Unchanged sacubitril-valsartan (Entresto 24 mg-26 mg oral tablet) 1 tab Oral (given by mouth) 2 times a day Heart failure Unchanged semaglutide (Ozempic (1 mg dose) 4 mg/ 3 mL subcutaneous solution) 1 Milligrams Subcutaneous (under the skin) Every week Unchanged tobramycin ophthalmic (tobramycin 0.3% ophthalmic solution) [...] affected areas as needed. ?? Pharmacy Information [facility]: [address], [place] [id number] [phone] Education Materials Abdominal Pain, Adult Pain in the abdomen (abdominal pain) can be caused by many things. Often, abdominal pain is not serious and it gets better with no treatment or by being treated at home. However, sometimes abdominal pain is serious. Your health care provider will ask questions about your medical history and do a physical exam to try to determine the cause of your abdominal pain. Follow these instructions at home: Medicines ? Take nwgu-zne-zpcsoia and prescription medicines only as told by your health care provider. ? Do not take a laxative unless told by your health care provider. General instructions ? Watch your condition for any changes. ? Drink enough fluid to keep your urine pale yellow. ? Keep all follow-up visits as told by your health care provider. This is important. Contact a health care provider if: ? Your abdominal pain changes or gets worse. ? You are not hungry or you lose weight without trying. ? You are constipated or have diarrhea for more than 2???3 days. ? You have pain when you urinate or have a bowel movement. ? Your abdominal pain wakes you up at night. ? Your pain gets worse with meals, after eating, or with certain foods. ? You are vomiting and cannot keep anything down. ? You have a fever. ? You have blood in your urine. Get help right away if: ? Your pain does not go away as soon as your health care provider told you to expect. ? You cannot stop vomiting. ? Your pain is only in areas of the abdomen, such as the right side or the left lower portion of the abdomen. Pain on the right side could be caused by appendicitis. ? You have bloody or black stools, or stools that look like tar. ? You have severe pain, cramping, or bloating in your abdomen. ? You have signs of dehydration, such as: ? Dark urine, very little urine, or no urine. ? Cracked lips. ? Dry mouth. ? Sunken eyes. ? Sleepiness. ? Weakness. ? You have trouble breathing or chest pain. Summary ? Often, abdominal pain is not serious and it gets better with no treatment or by being treated at home. However, sometimes abdominal pain is serious. ? Watch your condition for any changes. ? Take limv-uwx-nbmobhp and prescription medicines only as told by your health care provider. ? Contact a health care provider if your abdominal pain changes or gets worse. ? Get help right away if you have severe pain, cramping, or bloating in your abdomen. This information is not intended to replace advice given to you by your health care provider. Make sure you discuss any questions you have with your health care provider. Document Revised: 05/14/2020 Document Reviewed: 08/04/2019 [employer] Patient Education ?? 2022 [employer] Tests Performed Medications and Immunizations Administered Given Tylenol, 1000 mg, Oral Lab Test Name Test Result Date/Time WBC 9.8 x10^3/mcL 02/27/2023 10:51 EST RBC 4.3 x10^6/mcL 02/27/2023 10:51 EST Hgb 13.9 g/dL 02/27/2023 10:51 EST Hct 41.4 % 02/27/2023 10:51 EST MCV 95.6 fL 02/27/2023 10:51 EST MCH 32.1 pg 02/27/2023 10:51 EST MCHC 33.6 g/dL 02/27/2023 10:51 EST RDW-CV 13.2 % 02/27/2023 10:51 EST Platelets 252 x10^3/mcL 02/27/2023 10:51 EST Neutro Auto 79.0 % 02/27/2023 10:51 EST Lymph Auto 13.6 % 02/27/2023 10:51 EST [place] Auto 5.5 % 02/27/2023 10:51 EST Eos, Auto 1.3 % 02/27/2023 10:51 EST Basophil Auto 0.2 % 02/27/2023 10:51 EST Imm Gran Auto 0.4 % 02/27/2023 10:51 EST Neutro Absolute 7.7 x10^3/mcL 02/27/2023 10:51 EST Sodium Level 139 mmol/L 02/27/2023 10:51 EST Potassium Level 4.0 mmol/L 02/27/2023 10:51 EST Chloride Level 103 mmol/L 02/27/2023 10:51 EST CO2 28 mmol/L 02/27/2023 10:51 EST Alk Phos 62 unit/L 02/27/2023 10:51 EST AST 7 unit/L 02/27/2023 10:51 EST ALT 13 unit/L 02/27/2023 10:51 EST BUN 6 mg/dL 02/27/2023 10:51 EST Glucose Level 123 mg/dL 02/27/2023 10:51 EST Creatinine Level 0.64 mg/dL 02/27/2023 10:51 EST eGFR AA 94 02/27/2023 10:51 EST eGFR Non-AA 94 02/27/2023 10:51 EST Calcium Level 8.8 mg/dL 02/27/2023 10:51 EST Protein Total 6.4 g/dL 02/27/2023 10:51 EST Albumin Level 2.7 g/dL 02/27/2023 10:51 EST Bilirubin Total 1.3 mg/dL 02/27/2023 10:51 EST Lactic Acid Lvl 0.9 mmol/L 02/27/2023 10:51 EST Lipase Level 11 unit/L 02/27/2023 10:51 EST Magnesium Level 1.7 mg/dL 02/27/2023 10:51 EST Patient/Shale Processing Technician Signature Patient Name:SURYA QUINTANA I have received this information and my questions have been answered. Patient/Shale Processing Technician Name: Patient/Shale Processing Technician Signature: Relationship to Patient: Witness Name/Signature: Date: Electronically Signed on: 02/27/2023 12:15 ESTSigned by:[facility] Emergency department Note * Margaret Burnett M: PERFORM Event Display: ED Notes Authored Date: [id number] Patient Care team information Care Team Personnel Name: Dandy Driscoll NP Position: Physician Member Role: Informed Provider Address: Address: [address] Name: Kinsey Patiño Position: Ambulatory - RN/FOOTWEAR SALES LEADER (Franck) Member Role: Human Resource Manager Name: Wm Crystal MD Position: Physician Member Role: ED Physician Address: Address: [facility] [address] [place] [id number] Name: Maddy Cardenas Position: Nurse Member Role: ED Nurse Care Team Related Persons Name: ASH QUINTANA
--- OUTSIDE RECORDS SUMMARY | 2024-02-27 19:30 | XMS_ITS | Continuity of Care Document ---
Author Organization [facility] Address [address] [place] [address] Care Team Providers Care Heliarc Welder Name Role Phone Dandy Driscoll Primary Care Physician Encounter [facility] Date(s): 08/12/22 - 08/12/[address] [id number] Discharge Disposition: Home or Self Care Attending Physician: Tegan Morales PA-C Admitting Physician: Tegan Morales PA-C Allergies, Adverse Reactions, Alerts Substance Reaction Severity Status ALCOHOL 1 Moderate Active meperidine Bewilderment Unknown Active azithromycin Swollen face Unknown Active penicillins Swelling Other Unknown Active tetanus toxoids Unknown Active Tape 2 Unknown Severe Active 1Rubbing 2Outside Source Comment: Rips the skin off when removing Assessment and Plan Future Appointments Diagnostic Tests Pending * Urine Culture 08/12/22 Future Scheduled Tests Radiology* NM Myocardial SPECT Drug Stress Multi 07/04/22 Immunizations Given and Recorded Vaccine Date Status [...] rded pneumococcal 23-polyvalent vaccine 02/13/08 Record ed [id number] (booster only) vacc 09/23/21 Recorded EVPQ-[id number]-1-mRNA-1273 (booster only) vacc 07/09/20 Recorded influenza, unspecified formulation 01/07/21 Record ed influenza, unspecified formulation 01/02/20 Record ed influenza, unspecified formulation 02/06/19 Record ed influenza, unspecified formulation 01/22/18 Record ed SARS-CoV-2 (COVID-19) mRNA-1273 vaccine 07/09/20 R ecorded SARS-CoV-2 (COVID-19) mRNA-1273 vaccine 06/11/20 R ecorded SARS-CoV-2 (COVID-19) mRNA-1273 vaccine 3 06/11/20 Recorded pneumococcal 13-valent conjugate vaccine 02/06/19 Recorded zoster vaccine live 01/22/13 Recorded Novel [id number], all formulation 04/29/09 Recorded pneumococcal 7-valent vaccine 04/09/00 Recorded Not Given Vaccine Date Status Refusal Reason Td(adult) unspecified formulation 4 04/27/20 Not G iven Patient Refuses 1Result Comment: Given at the pharmacy-see record 2Result Comment: [facility] 3Result Comment: 1st vaccine 4Result Comment: Last Modified by Azra Dykes, Furnace Process Plant Operator 04-27-2020, 11:54 Medications !-DuoNeb 0.5 mg-2.5 mg/3 mL inhalation solution 3 mL, NEB, QID, # 120 EA, 0 Refill(s), Pharmacy: [facility], 157, cm, 04/21/22 4:43:00 EST, Height/Length [...] BID, # 28 EA, 4 Refill(s), Pharmacy: [facility], 157, cm, 04/22/22 20:46:00 EST, Height/Length Dosing, 122.47, kg, 04/22/22 20:46:00 EST, Weight Dosing Start Date: 05/11/22 Status: Ordered Albuterol (Eqv-ProAir HFA) 90 mcg/inh inhalation aerosol 180 mcg 2 puffs, Inhale, every 4 hr, PRN as needed for wheezing, # 8.5 g, 2 Refill(s), Pharmacy: [facility], 155, cm, 09/23/21 4:52:00 EDT, Height/Length Dosing, 125, kg, 09/23/21 4:52:00 EDT, Weight Dosing Start Date: 11/21/21 Status: Ordered albuterol 2.5 mg/3 mL (0.083%) inhalation solution 2.5 mg = 3 mL, NEB, every 4 hr, PRN as needed for wheezing, # 180 mL, 3 Refill(s), Pharmacy: [facility], 157, cm, 04/21/22 4:43:00 EST, Height/Length [...] 2 Refill(s), Pharmacy: [facility], 155, cm, 09/23/21 4:52:00 [...] Daily, # 30 tab, 2 Refill(s), Pharmacy: [facility], 157, cm, 04/22/22 20:46:00 EST, Height/Length Dosing, 122.47, kg, 04/22/22 20:46:00 EST, Weight Dosing Start Date: 06/13/22 Status: Ordered lisinopril 10 mg oral tablet 10 mg = 1 tab, Oral, Daily, # 90 tab, 2 Refill(s), Pharmacy: [facility], 155, cm, 09/23/21 4:52:00 EDT, Height/Length Dosing, 125, kg, 09/23/21 4:52:00 EDT, Weight Dosing Start Date: 11/21/21 Status: Ordered loperamide 2 mg oral capsule 2 mg = 1 cap, Oral, TID, PRN as needed for loose stool, # 270 cap, 1 Refill(s), Pharmacy: [facility], 155, cm, 09/23/21 4:52:00 EDT, Height/Length Dosing, 125, kg, 09/23/21 4:52:00 EDT, Weight Dosing Start Date: 11/21/21 Status: Ordered naproxen 500 mg oral tablet 500 mg = 1 tab, Oral, BID, # 60 tab, 1 Refill(s), Pharmacy: [facility], 155,cm, 09/23/21 4:52:00 EDT, Height/Length Dosing, 125, kg, 09/23/21 4:52:00 EDT, Weight Dosing Start Date: 11/21/21 Status: Ordered Nyamy 100,000 units/g topical powder See Instructions, Topical BID as needed for yeast, # 30 g, 0 Refill(s), Pharmacy: [facility], 155, cm, 09/23/21 4:52:00 EDT, Height/Length Dosing, 125, kg, 09/23/21 4:52:00 EDT, Weight Dosing Start Date: 11/21/21 Status: Ordered predniSONE 10 mg oral tablet See Instruction, Oral, Daily, 5 tabs for 3 days, 4 tabs daily x3 days, 3 tabs daily x3 days, 2 tabsdaily x3 days, 1 tab daily x3 days, # 45 tab, 0 Refill(s), Pharmacy: [facility], 157, cm,07/12/22 4:56:00 EDT, Height/Length Dosing, 125.7,... Start Date: 07/12/22 Status: Ordered tobramycin 0.3% ophthalmic solution 1 drops, Eye-Both, QID, # 5 mL, 0 Refill(s), Pharmacy: [facility], 157, cm, 04/22/22 20:46:00 EST, Height/Length Dosing, 122.47, kg, 04/22/22 20:46:00 EST, Weight Dosing Start Date: 06/13/22 Stop Date: 06/20/22 Status: Ordered torsemide 20 mg oral tablet 20 mg = 1 tab, Oral, Daily, # 90 tab, 4 Refill(s), Pharmacy: [facility], 157, cm, 04/22/22 20:46:00 EST, Height/Length Dosing, 122.47, kg, 04/22/22 20:46:00 EST, Weight Dosing Start Date: 07/04/22 Status: Ordered triamcinolone 0.1% topical cream 1 che, Topical, TID, PRN not specified, Apply to affected areas as needed., # 30 g, 0 Refill(s), Pharmacy: [facility], 155, cm, 09/23/21 4:52:00 [...] Covid PCR test this afternoon. 3per [facility] ortho note Procedures Procedure Date Related Diagnosis [...] disease, colon polypx2. 2Normal. 3Revision in 2013 Social History Social History Type Response Tobacco Former tobacco user Tobacco Use:. Sex Female Patient Care team information Care Team Personnel Name: Dandy Driscoll TRUCKING SUPERVISOR Position: Physician Member Role: Informed Provider Address: Address: [address] Care Team Related Persons Name: ASH QUINTANA
--- OUTSIDE RECORDS SUMMARY | 2024-02-27 19:30 | XMS_ITS | Continuity of Care Document ---
Author Organization [facility] Address [address] [place] [address] Care Team Providers Care Vp Global Name Role Phone YamilaDandy Carola Primary Care Physician Encounter [facility] Date(s): 01/08/23 - 01/08/[address] [address] Discharge Disposition: Home or Self Care Attending Physician: Aniket Tanner MD Admitting Physician: Aniket Tanner MD Referring Physician: Aniket Tanner MD Allergies, Adverse Reactions, Alerts Substance Reaction Severity Status ALCOHOL 1 Moderate Active meperidine Bewilderment Unknown Active azithromycin Swollen face Unknown Active penicillins Swelling Other Unknown Active tetanus toxoids Unknown Active Tape 2 Unknown Severe Active 1Rubbing 2Outside Source Comment: Rips the skin off when removing Assessment and Plan Future Appointments Future Scheduled Tests Laboratory* Hemoglobin A1c 12/04/22 Radiology* CT Renal Stone Study 01/08/23 * NM Myocardial SPECT Drug Stress Multi 07/04/22 [...] rded pneumococcal 23-polyvalent vaccine 02/13/08 Record ed [id number]-[id number]-1273 (booster only) vacc 09/23/21 Recorded UHED-VcP-1-mRNA-1273 (booster only) vacc 07/09/20 Recorded influenza, unspecified formulation 01/07/21 Record ed influenza, unspecified formulation 01/02/20 Record ed influenza, unspecified formulation 02/06/19 Record ed influenza, unspecified formulation 01/22/18 Record ed SARS-CoV-2 (COVID-19) mRNA-1273 vaccine 07/09/20 R ecorded SARS-CoV-2 (COVID-19) mRNA-1273 vaccine 06/11/20 R ecorded SARS-CoV-2 (COVID-19) mRNA-1273 vaccine 3 06/11/20 Recorded pneumococcal 13-valent conjugate vaccine 02/06/19 Recorded zoster vaccine live 01/22/13 Recorded Novel [id number]-[id number], all formulation 04/29/09 Recorded pneumococcal 7-valent vaccine 04/09/00 Recorded Not Given Vaccine Date Status Refusal Reason Td(adult) unspecified formulation 4 04/27/20 Not G iven Patient Refuses 1Result Comment: Given at the pharmacy-see record 2Result Comment: [facility] 3Result Comment: 1st vaccine 4Result Comment: Last Modified by Azra Dykes, Supervisor [employer] 04-27-2020, 11:54 Medications !-DuoNeb 0.5 mg-2.5 mg/3 mL inhalation solution 3 mL, NEB, QID, # 120 EA, 0 Refill(s), Pharmacy: [facility], 157, cm, 04/21/22 4:43:00 EST, Height/Length [...] BID, # 28 EA, 4 Refill(s), Pharmacy: [facility], 157, cm, 04/22/22 20:46:00 EST, Height/Length Dosing, 122.47, kg, 04/22/22 20:46:00 EST, Weight Dosing Start Date: 05/11/22 Status: Ordered Albuterol (Eqv-ProAir HFA) 90 mcg/inh inhalation aerosol 180 mcg 2 puffs, Inhale, every 4 hr, PRN as needed for wheezing, # 8.5 g, 2 Refill(s), Pharmacy: [facility], 155, cm, 09/23/21 4:52:00 EDT, Height/Length Dosing, 125, kg, 09/23/21 4:52:00 EDT, Weight Dosing Start Date: 11/21/21 Status: Ordered albuterol 2.5 mg/3 mL (0.083%) inhalation solution 2.5 mg = 3 mL, NEB, every 4 hr, PRN as needed for wheezing, # 180 mL, 3 Refill(s), Pharmacy: [facility], 157, cm, 04/21/22 4:43:00 EST, Height/Length [...] Daily, # 90 tab, 2 Refill(s), Pharmacy: [facility], 155, cm, 09/23/21 4:52:00 [...] instructions, # 1 EA, 0 Refill(s), Pharmacy: [facility] Start Date: 12/04/22 Status: Ordered Jardiance 10 mg oral tablet 10 mg = 1 tab, Oral, every morning, # 90 tab, 2 Refill(s), 157, cm, 07/12/22 4:56:00 EDT, Height/Length Dosing, 125.7, kg, 07/12/22 4:56:00 EDT, Weight Dosing Start Date: 10/18/22 Status: Ordered lancets lancets, tests blood sugar once daily, Supply, See instructions, # 100 EA, 3 Refill(s), Pharmacy: [facility] Start Date: 12/04/22 Status: Ordered loperamide 2 mg oral capsule 2 mg = 1 cap, Oral, TID, PRN as needed for loose stool, # 270 cap, 1 Refill(s), Pharmacy: [facility], 155, cm, 09/23/21 4:52:00 EDT, Height/Length Dosing, 125, kg, 09/23/21 4:52:00 EDT, Weight Dosing Start Date: 11/21/21 Status: Ordered naproxen 500 mg oral tablet 500 mg = 1 tab, Oral, BID, # 60 tab, 1 Refill(s), Pharmacy: [facility], 155,cm, 09/23/21 4:52:00 EDT, Height/Length Dosing, 125, kg, 09/23/21 4:52:00 EDT, Weight Dosing Start Date: 11/21/21 Status: Ordered Nyamyc 100,000 units/g topical powder See Instructions, Topical BID as needed for yeast, # 30 g, 0 Refill(s), Pharmacy: [facility], 155, cm, 09/23/21 4:52:00 EDT, Height/Length Dosing, 125, kg, 09/23/21 4:52:00 EDT, Weight Dosing Start Date: 11/21/21 Status: Ordered Ozempic 2 mg/1.5 mL (0.25 mg or 0.5 mg dose) subcutaneous solution 0.5 mg =, Subcutaneous, every week, rotate injection sites, # 1 EA, 0 Refill(s), Pharmacy: [facility], 157, cm, 07/12/22 4:56:00 EDT, Height/Length Dosing, 125.7, kg, 07/12/22 4:56:00 EDT, Weight Dosing Start Date: 12/04/22 Status: Ordered prednisoLONE acetate 0.12% ophthalmic suspension 0 Refill(s) Start Date: 10/18/22 Status: Ordered Sterile Lubricating Tears ophthalmic solution 0 Refill(s) Start Date: 10/18/22 Status: Ordered test strips test strips, test blood sugar daily, Supply, See instructions, # 100 EA, 3 Refill(s), Pharmacy: [facility] Start Date: 12/04/22 Status: Ordered tobramycin 0.3% ophthalmic solution 1 drops, Eye-Both, QID, # 5 mL, 0 Refill(s), Pharmacy: [facility], 157, cm, 04/22/22 20:46:00 EST, Height/Length Dosing, 122.47, kg, 04/22/22 20:46:00 EST, Weight Dosing Start Date: 06/13/22 Stop Date: 06/20/22 Status: Ordered torsemide 20 mg oral tablet 20 mg = 1 tab, Oral, Daily, # 90 tab, 4 Refill(s), Pharmacy: [facility], 157, cm, 04/22/22 20:46:00 EST, Height/Length Dosing, 122.47, kg, 04/22/22 20:46:00 EST, Weight Dosing Start Date: 07/04/22 Status: Ordered triamcinolone 0.1% topical cream 1 che, Topical, TID, PRN not specified, Apply to affected areas as needed., # 30 g, 0 Refill(s), Pharmacy: [facility], 155, cm, 09/23/21 4:52:00 [...] a Covid PCR test this afternoon. 3per [facility] ortho note Procedures Procedure Date [...] 1diverticular disease, colon polypx2. 2Normal. 3Revision in 2012 Results Orders for Microbiology Reports Name Date Urine Culture 01/08/23 Microbiology Reports TEST:Urine Culture STATUS:Order in Progress BODY SITE: SOURCE:Urine, Clean Catch COLLECTED DATE/TIME:01/08/23 11:22 AM PRELIMINARY REPORT 10,000 - 100,000 cfu/ml Mixed sade (multiple species present) Social History Social History Type Response Tobacco Former tobacco user Tobacco Use:. Sex Female Patient Care team information Care Team Personnel Name: Dandy Driscoll MARINE ENGINE MACHINIST APPRENTICE Position: Physician Member Role: Informed Provider Address: Address: [address] Name: Kinsey Patiño Position: Ambulatory - RN/PROPERTY FIELD INSPECTOR (Franck) Member Role: Nuclear Physicist Care Team Related Persons Name: ASH QUINTANA
--- OUTSIDE RECORDS SUMMARY | 2024-02-27 19:30 | XMS_ITS | Continuity of Care Document ---
Author Organization [facility] Address [address] [place] [address] Care Team Providers Care Spectrographer Name Role Phone DriscollDandy Carola Primary Care Physician [phone] Encounter [facility] [id number] Date(s): 01/17/23 - 01/17/23 [facility] [address] [place] [address] Allergies, Adverse Reactions, Alerts Substance Reaction Severity [...] rded pneumococcal 23-polyvalent vaccine 02/13/08 Record ed [id number]-LaT-2-mRNA-1273 (booster only) vacc 09/23/21 Recorded RGGV-PlD-9-mRNA-1273 (booster only) vacc 07/09/20 Recorded influenza, unspecified formulation 01/07/21 Record ed influenza, unspecified formulation 01/02/20 Record ed influenza, unspecified formulation 02/06/19 Record ed influenza, unspecified formulation 01/22/18 Record ed SARS-CoV-2 (COVID-19) mRNA-1273 vaccine 07/09/20 R ecorded SARS-CoV-2 (COVID-19) mRNA-1273 vaccine 06/11/20 R ecorded SARS-CoV-2 (COVID-19) mRNA-1273 vaccine 3 06/11/20 Recorded pneumococcal 13-valent conjugate vaccine 02/06/19 Recorded zoster vaccine live 01/22/13 Recorded Novel [id number]-[id number], all formulation 04/29/09 Recorded pneumococcal 7-valent vaccine 04/09/00 Recorded Not Given Vaccine Date Status Refusal Reason Td(adult) unspecified formulation 4 04/27/20 Not G iven Patient Refuses 1Result Comment: Given at the pharmacy-see record 2Result Comment: [facility] pharmacy 3Result Comment: 1st vaccine 4Result Comment: Last Modified by Azra Dykes, Granite [employer]utter 04-27-2020, 11:54 Medications !-DuoNeb 0.5 mg-2.5 mg/3 mL inhalation solution 3 mL, NEB, QID, # 120 EA, 0 Refill(s), Pharmacy: [facility]58, 157, cm, 04/21/22 4:43:00 EST, [...] BID, # 28 EA, 4 Refill(s), Pharmacy: [facility] #58, 157, cm, 04/22/22 20:46:00 EST, Height/Length Dosing, 122.47, kg, 04/22/22 20:46:00 EST, Weight Dosing Start Date: 05/11/22 Status: Ordered Albuterol (Eqv-ProAir HFA) 90 mcg/inh inhalation aerosol 180 mcg 2 puffs, Inhale, every 4 hr, PRN as needed for wheezing, # 8.5 g, 2 Refill(s), Pharmacy: [facility], 155, cm, 09/23/21 4:52:00 EDT, Height/Length Dosing, 125, kg, 09/23/21 4:52:00 EDT, Weight Dosing Start Date: 11/21/21 Status: Ordered albuterol 2.5 mg/3 mL (0.083%) inhalation solution 2.5 mg = 3 mL, NEB, every 4 hr, PRN as needed for wheezing, # 180 mL, 3 Refill(s), Pharmacy: [facility], 157, cm, 04/21/22 4:43:00 EST, Height/Length [...] Daily, # 90 tab, 2 Refill(s), Pharmacy: [facility], 155, cm, 09/23/21 4:52:00 EDT, Height/Length [...] instructions, # 1 EA, 0 Refill(s), Pharmacy: [facility] #[facility] Start Date: 12/04/22 Status: Ordered Jardiance 10 mg oral tablet 10 mg = 1 tab, Oral, every morning, # 90 tab, 2 Refill(s), 157, cm, 07/12/22 4:56:00 EDT, Height/Length Dosing, 125.7, kg, 07/12/22 4:56:00 EDT, Weight Dosing Start Date: 10/18/22 Status: Ordered lancets lancets, tests blood sugar once daily, Supply, See instructions, # 100 EA, 3 Refill(s), Pharmacy: [facility] Start Date: 12/04/22 Status: Ordered loperamide 2 mg oral capsule 2 mg = 1 cap, Oral, TID, PRN as needed for loose stool, # 270 cap, 1 Refill(s), Pharmacy: [facility], 155, cm, 09/23/21 4:52:00 EDT, Height/Length Dosing, 125, kg, 09/23/21 4:52:00 EDT, Weight Dosing Start Date: 11/21/21 Status: Ordered naproxen 500 mg oral tablet 500 mg = 1 tab, Oral, BID, # 60 tab, 1 Refill(s), Pharmacy: [facility], 155,cm, 09/23/21 4:52:00 EDT, Height/Length Dosing, 125, kg, 09/23/21 4:52:00 EDT, Weight Dosing Start Date: 11/21/21 Status: Ordered Nyamyc 100,000 units/g topical powder See Instructions, Topical BID as needed for yeast, # 30 g, 0 Refill(s), Pharmacy: [facility], 155, cm, 09/23/21 4:52:00 EDT, Height/Length Dosing, 125, kg, 09/23/21 4:52:00 EDT, Weight Dosing Start Date: 11/21/21 Status: Ordered Ozempic 2 mg/1.5 mL (0.25 mg or 0.5 mg dose) subcutaneous solution 0.5 mg =, Subcutaneous, every week, rotate injection sites, # 1 EA, 0 Refill(s), Pharmacy: [facility] #[facility], 157, cm, 07/12/22 4:56:00 EDT, Height/Length Dosing, 125.7, kg, 07/12/22 4:56:00 EDT, Weight Dosing Start Date: 12/04/22 Status: Ordered prednisoLONE acetate 0.12% ophthalmic suspension 0 Refill(s) Start Date: 10/18/22 Status: Ordered Sterile Lubricating Tears ophthalmic solution 0 Refill(s) Start Date: 10/18/22 Status: Ordered test strips test strips, test blood sugar daily, Supply, See instructions, # 100 EA, 3 Refill(s), Pharmacy: [facility] Start Date: 12/04/22 Status: Ordered tobramycin 0.3% ophthalmic solution 1 drops, Eye-Both, QID, # 5 mL, 0 Refill(s), Pharmacy: [facility] #58, 157, cm, 04/22/22 20:46:00 EST, Height/Length Dosing, 122.47, kg, 04/22/22 20:46:00 EST, Weight Dosing Start Date: 06/13/22 Stop Date: 06/20/22 Status: Ordered torsemide 20 mg oral tablet 20 mg = 1 tab, Oral, Daily, # 90 tab, 4 Refill(s), Pharmacy: [facility] #58, 157, cm, 04/22/22 20:46:00 EST, Height/Length Dosing, 122.47, kg, 04/22/22 20:46:00 EST, Weight Dosing Start Date: 07/04/22 Status: Ordered triamcinolone 0.1% topical cream 1 che, Topical, TID, PRN not specified, Apply to affected areas as needed., # 30 g, 0 Refill(s), Pharmacy: [facility], 155, cm, 09/23/21 4:52:00 EDT, Height/Length [...] Covid PCR test this afternoon. 3per [facility] ortho note Procedures Procedure Date Related Diagnosis [...] information Care Team Personnel Name: Dandy Driscoll DCS ENGINEER Position: Physician Member Role: Informed Provider Address: Address: [id number] [place] [address] Name: Kinsey Patiño Position: Ambulatory - RN/BLEACH BOILER PACKER (Franck) Member Role: Polyethylene Combiner Care Team Related Persons Name: ASH QUINTANA Address: Home
--- OUTSIDE RECORDS SUMMARY | 2024-02-27 19:30 | XMS_ITS | Continuity of Care Document ---
Author Organization [facility] Address [address] [place] [address] Care Team Providers Care Cartoon Animator Name Role Phone YamilaDandy Carola Primary Care Physician Encounter [facility] [id number] Date(s): 01/29/24 - 01/29/24 [facility] [address] [place] [address] Discharge Disposition: Home Allergies, Adverse Reactions, Alerts Substance Criticality Severity Reaction Reaction Severity Status ALCOHOL 1 High criticality Moderate Act veronica meperidine Unable to assess criticality Unknown Bewilderment Active azithromycin Unable to assess criticality Unknown Swollen face Active penicillins Unable to assess criticality Unknown Swelling Other Active tetanus toxoids Unable to assess criticality Unknown Active Tape 2 High criticality Severe Unknown Act veronica 1Rubbing 2Outside Source Comment: Rips the skin off when removing Assessment and Plan Future Appointments Future Scheduled Tests Laboratory* Basic Metabolic Panel 01/18/24 * Urinalysis with Micro if Indicated and Culture if Indicated 11/21/23 Radiology* US Pelvic Non OB Comp w/ Transvag 02/19/23 Immunizations Given and Recorded Vaccine Date Status Refusal Reason SARS-CoV-2 (COVID-19) Pfizer (cvx 308) 1 01/15/24 Recorded influenza virus vaccine, inactivated 2 01/15/24 Re corded influenza virus vaccine, inactivated 3 02/05/22 Re corded influenza virus vaccine, inactivated [...] vaccine, inactivated 09/29/21 Recorded pneumococcal 23-polyvalent vaccine 4 09/23/21 Bc rded pneumococcal 23-polyvalent vaccine 02/13/08 Record ed TXJE-VuV-8-mRNA-1273 (booster only) vacc 09/23/21 Recorded ERHZ-LsA-8-mRNA-1273 (booster only) vacc 07/09/20 Recorded influenza, unspecified formulation 01/07/21 Record ed influenza, unspecified formulation 01/02/20 Record ed influenza, unspecified formulation 02/06/19 Record ed influenza, unspecified formulation 01/22/18 Record ed SARS-CoV-2 (COVID-19) mRNA-1273 vaccine 07/09/20 R ecorded SARS-CoV-2 (COVID-19) mRNA-1273 vaccine 06/11/20 R ecorded SARS-CoV-2 (COVID-19) mRNA-1273 vaccine 5 06/11/20 Recorded pneumococcal 13-valent conjugate vaccine 02/06/19 Recorded zoster vaccine live 01/22/13 Recorded Novel [id number]-[id number], all formulation 04/29/09 Recorded pneumococcal 7-valent vaccine 04/09/00 Recorded Not Given Vaccine Date Status Refusal Reason Td(adult) unspecified formulation 6 04/27/20 Not G iven Patient Refuses 1Result Comment: Verified by June at [facility] 2Result Comment: Verified by June at [facility] 3Result Comment: Given at the pharmacy-see record [facility] 5Result Comment: 1st vaccine 6Result Comment: Last Modified by Azra Dykes, Boat Buffer Plastic 04-27-2020, 11:54 Medications !-DuoNeb 0.5 mg-2.5 mg/3 mL inhalation solution 3 mL, NEB, QID, # 120 EA, 0 Refill(s), Pharmacy: [facility], 157, cm, 04/21/22 4:43:00 EST, Height/Length [...] BID, # 28 EA, 4 Refill(s), Pharmacy: [facility], 157, cm, 03/27/23 9:48:00 EST, Height, 123.5, kg, 11/21/23 11:28:00 EDT, Weight Dosing Start Date: 12/03/23 Status: Ordered Albuterol (Eqv-ProAir HFA) 90 mcg/inh inhalation aerosol 180 mcg 2 puffs, Inhale, every 4 hr, PRN as needed for wheezing, # 8.5 g, 2 Refill(s), Pharmacy: [facility], 155, cm, 09/23/21 4:52:00 EDT, Height/Length Dosing, 125, kg, 09/23/21 4:52:00 EDT, Weight Dosing Start Date: 11/21/21 Status: Ordered albuterol 2.5 mg/3 mL (0.083%) inhalation solution 2.5 mg = 3 mL, NEB, every 4 hr, PRN as needed for wheezing, # 180 mL, 3 Refill(s), Pharmacy: [facility], 157, cm, 04/21/22 4:43:00 EST, Height/Length [...] BID, # 14 tab, 0 Refill(s), Pharmacy: [facility], 157, cm, 03/27/23 9:48:00 EST, Height, 123.5, kg, 11/21/23 11:28:00 EDT, Weight Dosing Start Date: 12/13/23 Stop Date: 12/20/23 Status: Ordered Bactrim DS 800 mg-160 mg oral tablet 1 tab, Oral, BID, # 14 tab, 0 Refill(s), Pharmacy: [facility]58, 157, cm, 03/27/23 9:48:00 EST, Height, 123.5, kg, 11/21/23 11:28:00 EDT, Weight Dosing Start Date: 11/21/23 Stop Date: 11/28/23 Status: Ordered buPROPion 300 mg/24 hours (XL) oral tablet, extended release 300 mg = 1 tab, Oral, Daily, # 90 tab, 2 Refill(s), Pharmacy: [facility], 155, cm, 09/23/21 4:52:00 EDT, Height/Length Dosing, 125, kg, 09/23/21 4:52:00 EDT, Weight Dosing Start Date: 11/21/21 Status: Ordered cannabidiol See Instructions, CBD Cream 3000 mg; apply as directed., 0 Refill(s) Start Date: 10/27/21 Status: Ordered cephalexin 500 mg oral capsule 500 mg = 1 cap, Oral, Daily, # 90 cap, 0 Refill(s), Pharmacy: [facility]58, 157, cm, 03/27/23 9:48:00 EST, Height, 123.5, kg, 11/21/23 11:28:00 EDT, Weight Dosing Start Date: 12/06/23 Status: Ordered clindamycin 300 mg oral capsule See Instructions, TAKE 2 CAPSULES BY MOUTH ONCE PRIOR TO DENTAL PROCEDURE-2 upcoming dental appointments, # 4 cap, 0 Refill(s), Pharmacy: [facility], 157, cm, 03/27/23 9:48:00 EST, Height, 123.5, kg, 11/21/23 11:28:00 EDT, Weight Dosing Start Date: 12/03/23 Status: Ordered Cranberry oral tablet 1 tab, [...] instructions, # 1 EA, 0 Refill(s), Pharmacy: [facility] Start Date: 12/04/22 Status: Ordered lancets lancets, tests blood sugar once daily, Supply, See instructions, # 100 EA, 3 Refill(s), Pharmacy: [facility] Start Date: 12/04/22 Status: Ordered loperamide 2 mg oral capsule 2 mg = 1 cap, Oral, TID, PRN as needed for loose stool, # 270 cap, 1 Refill(s), Pharmacy: [facility], 155, cm, 09/23/21 4:52:00 EDT, [...] 25), # 90 tab, 3 Refill(s), Pharmacy: [facility]58, 157, cm, 02/27/23 9:53:00 EST, Height, 118.55, kg, 03/02/23 12:53:00 EST, Weight Dosing Start Date: 03/08/23 Stop Date: 03/02/24 Status: Ordered Myrbetriq 50 mg oral tablet, extended release 50 mg = 1 tab, Oral, Daily, do not crush or chew, # 90 tab, 3 Refill(s), Pharmacy: [facility], 157, cm, 02/27/23 9:53:00 EST, Height, 118.55, kg, 03/02/23 12:53:00 EST, Weight Dosing Start Date: 03/08/23 Stop Date: 03/02/24 Status: Ordered naproxen 500 mg oral tablet 500 mg = 1 tab, Oral, BID, # 60 tab, 1 Refill(s), Pharmacy: [facility], 155,cm, 09/23/21 4:52:00 EDT, Height/Length Dosing, 125, kg, 09/23/21 4:52:00 EDT, Weight Dosing Start Date: 11/21/21 Status: Ordered Nyamyc 100,000 units/g topical powder See Instructions, Topical BID as needed for yeast, # 30 g, 0 Refill(s), Pharmacy: [facility], 155, cm, 09/23/21 4:52:00 EDT, Height/Length Dosing, 125, kg, 09/23/21 4:52:00 EDT, Weight Dosing Start Date: 11/21/21 Status: Ordered ONETOUCH DELICA PLUS 33G LANCT ONETOUCH DELICA PLUS 33G LANCT, See Instructions, USE DIRECTED TO TEST GLUCOSE LEVELS ONCE DAILY, # 100 EA, 3 Refill(s), Pharmacy: [facility]58, 157, cm, 03/27/23 9:48:00 EST, Height, 123.5, kg, 11/21/23 11:28:00 EDT, Weight Dosing Start Date: 01/13/24 Status: Ordered ONETOUCH ULTRA TEST STRIP ONETOUCH ULTRA TEST STRIP, See Instructions, USE TO TEST GLUCOSE LEVELS ONCE DAILY, # 100 strip, 3 Refill(s), Pharmacy: [facility], 157, cm, 03/27/23 9:48:00 EST, Height, 123.5, kg, 11/21/23 11:28:00 EDT, Weight Dosing Start Date: 01/13/24 Status: Ordered ONETOUCH ULTRA2 GLUCOSE SYST ONETOUCH ULTRA2 GLUCOSE SYST, See Instructions, USE TO TEST GLUCOSE LEVELS ONCE DAILY, # 1 EA, 0 Refill(s), Pharmacy: [facility], 157, cm, 02/14/23 11:37:00 EST, Height, 119.07, kg, 02/14/23 11:38:00 EST, Weight Dosing Start Date: 02/23/23 Status: Ordered prednisoLONE acetate 0.12% ophthalmic suspension 0 Refill(s) Start Date: 10/18/22 Status: Ordered test strips test strips, test blood sugar daily, Supply, See instructions, # 100 EA, 3 Refill(s), Pharmacy: [facility] Start Date: 12/04/22 Status: Ordered tobramycin 0.3% ophthalmic solution 1 drops, Eye-Both, QID, # 5 mL, 0 Refill(s), Pharmacy: [facility], 157, cm, 04/22/22 20:46:00 EST, Height/Length Dosing, 122.47, kg, 04/22/22 20:46:00 EST, Weight Dosing Start Date: 06/13/22 Stop Date: 06/20/22 Status: Ordered torsemide 20 mg oral tablet 20 mg = 1 tab, Oral, Daily, # 90 tab, 4 Refill(s), Pharmacy: [facility], 157, cm, 04/22/22 20:46:00 EST, Height/Length Dosing, 122.47, kg, 04/22/22 20:46:00 EST, Weight Dosing Start Date: 07/04/22 Status: Ordered triamcinolone 0.1% topical cream 1 che, Topical, TID, PRN not specified, Apply to affected areas as needed., # 30 g, 0 Refill(s), Pharmacy: [facility], 155, cm, 09/23/21 4:52:00 EDT, [...] a Covid PCR test this afternoon. 3per [facility] ortho note Procedures Procedure Date [...] (No HPV done) 3Normal. 4Revision in 2012 Social History Social History Type Response Tobacco Former tobacco user Tobacco Use:. Sex Female Sex Representation Female (finding) Patient Care team information Care Team Personnel Name: Dandy Driscoll ELECTRONIC SCIENCE TEACHER Position: Physician Member Role: Informed Provider Address: [address] Care Team Related Persons Name: ASH QUINTANA Insurance Providers Guarantor name: SURYA QUINTANA Health Plan Information #: 1 [facility] Member Number: NA Policy Number: NA
--- OUTSIDE RECORDS SUMMARY | 2024-02-27 19:30 | XMS_ITS | Continuity of Care Document ---
Author Organization [facility] Address [address] [place] [address] Care Team Providers Care Systems Program Manager Name Role Phone Dandy Driscoll Carola Primary Care Physician [phone] Encounter [facility] Date(s): 02/26/23 - 02/26/[address] [address] Encounter Diagnosis Abdominal pain(Discharge Diagnosis) - 02/26/23 Discharge Disposition: Home or Self Care Attending [...] Appointments Diagnostic Tests Pending * Urine Culture 02/26/23 Future Scheduled Tests Laboratory* Hemoglobin A1c 12/04/22 Radiology* NM Myocardial SPECT Drug Stress Multi 07/04/22 * US Pelvic Non OB Comp w/ Transvag 02/19/23 Functional Status 02/26/23 Family Member Travel History No recent t [...] rded pneumococcal 23-polyvalent vaccine 02/13/08 Record ed [id number] (booster only) vacc 09/23/21 Recorded [id number]-[id number]-6-mRNA-1273 (booster only) vacc 07/09/20 Recorded influenza, unspecified formulation 01/07/21 Record ed influenza, unspecified formulation 01/02/20 Record ed influenza, unspecified formulation 02/06/19 Record ed influenza, unspecified formulation 01/22/18 Record ed SARS-CoV-2 (COVID-19) mRNA-1273 vaccine 07/09/20 R ecorded SARS-CoV-2 (COVID-19) mRNA-1273 vaccine 06/11/20 R ecorded SARS-CoV-2 (COVID-19) mRNA-1273 vaccine 3 06/11/20 Recorded pneumococcal 13-valent conjugate vaccine 02/06/19 Recorded zoster vaccine live 01/22/13 Recorded Novel [id number], all formulation 04/29/09 Recorded pneumococcal 7-valent vaccine 04/09/00 Recorded Not Given Vaccine Date Status Refusal Reason Td(adult) unspecified formulation 4 04/27/20 Not G iven Patient Refuses 1Result Comment: Given at the pharmacy-see record 2Result Comment: [facility] 3Result Comment: 1st vaccine 4Result Comment: Last Modified by Azra Dykes, Marble Installer Supervisor 04-27-2020, 11:54 Medications !-DuoNeb 0.5 mg-2.5 mg/3 mL inhalation solution 3 mL, NEB, QID, # 120 EA, 0 Refill(s), Pharmacy: [facility], 157, cm, 04/21/22 4:43:00 EST, Height/Length [...] BID, # 28 EA, 4 Refill(s), Pharmacy: [facility], 157, cm, 04/22/22 20:46:00 EST, Height/Length Dosing, 122.47, kg, 04/22/22 20:46:00 EST, Weight Dosing Start Date: 05/11/22 Status: Ordered Albuterol (Eqv-ProAir HFA) 90 mcg/inh inhalation aerosol 180 mcg 2 puffs, Inhale, every 4 hr, PRN as needed for wheezing, # 8.5 g, 2 Refill(s), Pharmacy: [facility], 155, cm, 09/23/21 4:52:00 EDT, Height/Length Dosing, 125, kg, 09/23/21 4:52:00 EDT, Weight Dosing Start Date: 11/21/21 Status: Ordered albuterol 2.5 mg/3 mL (0.083%) inhalation solution 2.5 mg = 3 mL, NEB, every 4 hr, PRN as needed for wheezing, # 180 mL, 3 Refill(s), Pharmacy: [facility], 157, cm, 04/21/22 4:43:00 EST, Height/Length [...] # 90 tab, 2 Refill(s), Pharmacy: [facility], 155, cm, 09/23/21 4:52:00 EDT, Height/Length [...] instructions, # 1 EA, 0 Refill(s), [facility] Start Date: 12/04/22 Status: Ordered ibuprofen 800 mg oral tablet 800 mg = 1 tab, Oral, TID, PRN as needed for pain, # 30 tab, 0 Refill(s), 03/05/23 2:01:00 PM REFERENCE ARCHIVIST, Pharmacy: [facility], 157, cm, 02/26/23 11:21:00 EST, Height, [...] instructions, # 100 EA, 3 Refill(s), Pharmacy: [facility] Start Date: 12/04/22 Status: Ordered loperamide 2 mg oral capsule 2 mg = 1 cap, Oral, TID, PRN as needed for loose stool, # 270 cap, 1 Refill(s), Pharmacy: [facility], 155, cm, 09/23/21 4:52:00 EDT, Height/Length [...] # 60 tab, 1 Refill(s), Pharmacy: [facility], 155,cm, 09/23/21 4:52:00 EDT, Height/Length Dosing, 125, kg, 09/23/21 4:52:00 EDT, Weight Dosing Start Date: 11/21/21 Status: Ordered Nyamyc 100,000 units/g topical powder See Instructions, Topical BID as needed for yeast, # 30 g, 0 Refill(s), Pharmacy: [facility], 155, cm, 09/23/21 4:52:00 EDT, Height/Length Dosing, 125, kg, 09/23/21 4:52:00 EDT, Weight Dosing Start Date: 11/21/21 Status: Ordered ONETOUCH ULTRA2 GLUCOSE SYST ONETOUCH ULTRA2 GLUCOSE SYST, See Instructions, USE TO TEST GLUCOSE LEVELS ONCE DAILY, # 1 EA, 0 Refill(s), Pharmacy: [facility], 157, cm, 02/14/23 11:37:00 EST, Height, [...] instructions, # 100 EA, 3 Refill(s), Pharmacy: [facility] Start Date: 12/04/22 Status: Ordered tobramycin 0.3% ophthalmic solution 1 drops, Eye-Both, QID, # 5 mL, 0 Refill(s), Pharmacy: [facility], 157, cm, 04/22/22 20:46:00 EST, Height/Length Dosing, 122.47, kg, 04/22/22 20:46:00 EST, Weight Dosing Start Date: 06/13/22 Stop Date: 06/20/22 Status: Ordered torsemide 20 mg oral tablet 20 mg = 1 tab, Oral, Daily, # 90 tab, 4 Refill(s), Pharmacy: [facility], 157, cm, 04/22/22 20:46:00 EST, Height/Length Dosing, 122.47, kg, 04/22/22 20:46:00 EST, Weight Dosing Start Date: 07/04/22 Status: Ordered triamcinolone 0.1% topical cream 1 che, Topical, TID, PRN not specified, Apply to affected areas as needed., # 30 g, 0 Refill(s), Pharmacy: [facility], 155, cm, 09/23/21 4:52:00 EDT, Height/Length Dosing, 125,kg, 09/23/21 4:52:00 EDT, Weight Dosing Start Date: 11/21/21 Status: Ordered Tylenol Extra Strength 500 mg oral tablet 500 mg = 1 tab, Oral, every 4 hr, PRN as needed for pain, # 24 tab, 0 Refill(s), 03/08/23 2:01:00 PM REFERENCE ARCHIVIST, Pharmacy: [facility], 157, cm, 02/26/23 11:21:00 EST, Height, [...] a Covid PCR test this afternoon. 3per [facility] [place] Procedures Procedure Date Related Diagnosis [...] in 2013 Results Laboratory List Name Date Urinalysis with Micro if Indicated and C ulture if Indicated 02/26/23 Urinalysis Microscopic 02/26/23 CBC w/ Diff 02/26/23 Comprehensive Metabolic Panel (CMP) 02/08 Lactic Acid 02/26/23 Magnesium Level 02/26/23 Lipase Level 02/26/23 Automated Diff 02/26/23 Most recent to oldest [Reference Range]: 1 WBC [5.0-10.0 x10^3/mcL] 9.6 x10^3/mcL (02/26/23 11:51 AM) RBC [4.1-5.3 x10^6/mcL] 4.2 x10^6/mcL (02/26/23 11:51 AM) Neutro Auto [40.0-75.0 %] 74.7 % (02/26/23 11:51 AM) Lymph Auto [20.0-50.0 %] 15.9 % *LOW* (02/26/23 11:51 AM) Trimble Auto [2.0-15.0 %] 6.9 % (02/26/23 11:51 AM) Basophil Auto [0.0-1.0 %] 0.3 % (02/26/23 11:51 AM) BUN [7-18 mg/dL] 11 mg/dL (02/26/23: AM) UA Color Yellow (02/26/23: PM) UA WBC [0-3] 10-25 *ABN* (02/26/23: PM) Glucose Level [74-106 mg/dL] 115 mg/dL *HI* (02/26/23: AM) Potassium Level [3.5-5.1 mmol/L] 4.1 mmo l/L (02/26/23: AM) MCV [80.0-96.0 fL] 96.0 fL (02/26/23: AM) UA Urobilinogen Normal (02/26/23: PM) UA Bili [Negative] Negative (02/26/23: PM) UA Ketones Negative (02/26/23: PM) AST [15-37 unit/L] 12 unit/L *LOW* (02/26/23 AM) ALT [14-59 unit/L] 16 unit/L (02/26/23: AM) MCHC [31.0-35.0 g/dL] 32.9 g/dL (02/26/23: AM) Sodium Level [136-145 mmol/L] 137 mmol/L (02/26/23: AM) UA RBC [0-2] 5-10 (02/26/23: PM) UA Leuk Est Negative (02/26/23: PM) UA Nitrite Negative (02/26/23: PM) UA Glucose [Negative] Negative (02/26/23: PM) Hct [37.0-47.0 %] 40.7 % (02/26/23: AM) UA Bacteria Rare /HPF (02/26/23: PM) Lipase Level [16-77 unit/L] 13 unit/L 1 *LOW* (02/26/23 AM) Calcium Level [8.5-10.1 mg/dL] 9.3 mg/dL (11/20/23 11:51 AM) Albumin Level [3.4-5.0 g/dL] 3.1 g/dL *LOW* (02/26/23 11:51 AM) Protein Total [6.4-8.2 g/dL] 6.6 g/dL (02/26/23 11:51 AM) UA Protein Negative (02/26/23 1:26 PM) MCH [26.0-32.0 pg] 31.6 pg (02/26/23 11:51 AM) Magnesium Level [1.8-2.4 mg/dL] 1.7 mg/d L *LOW* (02/26/23 11:51 AM) Neutro Absolute 7.2 x10^3/mcL *NA* (02/26/23 11:51 AM) Bilirubin Total [0.2-1.0 mg/dL] 0.8 mg/d L (02/26/23 11:51 AM) Hgb [12.0-16.0 g/dL] 13.4 g/dL (02/26/23 11:51 AM) Alk Phos [46-146 unit/L] 58 unit/L (02/26/23 11:51 AM) UA Blood 2+ *ABN* (02/26/23 1:26 PM) UA Mucous None Seen /HPF (02/26/23 1:26 PM) UA Spec Grav 1.025 *NA* (02/26/23 1:26 PM) Platelets [130-450 x10^3/mcL] 244 x10^3/ mcL (02/26/23 11:51 AM) CO2 [21-32 mmol/L] 29 mmol/L (02/26/23 11:51 AM) Lactic Acid Lvl [0.7-2.0 mmol/L] 1.2 mmo l/L (02/26/23 11:51 AM) UA Squam Epithelial [None Seen] Moderate *ABN* (02/26/23 1:26 PM) UA pH 5.5 *NA* (02/26/23 1:26 PM) eGFR Non-AA [>=60] 91 (02/26/23 11:51 AM) eGFR AA [>=60] 91 (02/26/23 11:51 AM) UA Appear Clear (02/26/23 1:26 PM) Chloride Level [98-107 mmol/L] 104 mmol/ L (02/26/23 11:51 AM) RDW-CV [11.5-14.5 %] 13.6 % (02/26/23 11:51 AM) Imm Gran Auto [0.0-0.9 %] 0.3 % (02/26/23 11:51 AM) UA Culture Ind?. Indicated (02/26/23 1:26 PM) Creatinine Level [0.55-1.02 mg/dL] 0.71 mg/dL (02/26/23 11:51 AM) Eos, Auto [1.0-6.0 %] 1.9 % (02/26/23 11:51 AM) 1Interpretive Data: Effective 01/26/22, [facility] has switched to a revised Lipase test.Note new ReferenceRange. Vital Signs Most recent to oldest [Reference Range]: 1 2 3 Temperature Temporal Artery [36-38 Deg C] 36.8 Deg C (02/26/23 12:59 PM) 36.6 Deg C (02/26/23 11:06 AM) Temperature Temporal Artery (DegF) [97.3-100 Deg F] 98.24 Deg F (02/26/23 12:59 PM) Peripheral Pulse Rate [60-100 bpm] 85 bpm (02/26/23 2:56 PM) 82 bpm (02/26/23 1:46 PM) 85 bpm (02/26/23 12:59 PM) Heart Rate Monitored [60-100 bpm] 85 bpm (02/26/23 2:56 PM) Respiratory Rate [12-24 br/min] 17 br/min (02/26/23 2:56 PM) 19 br/min (02/26/23 1:46 PM) 14 br/min (02/26/23 12:59 PM) Blood Pressure [90-140/60-90 mmHg] 118/66mmHg (02/26/23 2:56 PM) 146/79mmHg *HI* (02/26/23 1:46 PM) 101/67mmHg (02/26/23 12:59 PM) Mean Arterial Pressure, Cuff [70-110 mmHg] 83 mmHg (02/26/23 2:56 PM) 101 mmHg (02/26/23 1:46 PM) 78 mmHg (02/26/23 12:59 PM) Weight 118.30 kg (02/26/23 11:06 AM) Weight Dosing 118.30 kg (02/26/23 11:21 AM) Height 157.000 cm (02/26/23 11:21 AM) 157.000 cm (02/26/23 11:06 AM) Body Mass Index 48.000 kg/m2 (02/26/23 11:06 AM) Social History Social History Type Response Tobacco Former tobacco user Tobacco Use:. Sex Female Hospital Discharge Instructions Patient Education 02/26/2023 14:02:06 Abdominal Pain, Adult Abdominal Pain, Adult Pain [...] these instructions at home: Medicines ??? Take [id number] and prescription medicines only as told by [...] your condition for any changes. ??? Take dkdd-gug-zpjncad and prescription medicines only as told by [...] provider. Document Revised: 05/14/2020 Document Reviewed: 08/04/2019 [employer] Patient Education ?? 2022 [employer]. Follow Up Care 02/26/2023 11:06:40 With:Dandy Driscoll NP Address: [address] When:2 to 4 days global sourcing manager Note * Puja Schwab: PERFORM Event Display: Case Management Note Authored Date: [id number] Pt d/c home from ER - RCT contacted for pt. Physician Emergency department Note * Wm Crystal MD: PERFORM Event Display: ED Note Physician Authored Date: [id number] SURYA QUINTANA :1950 Age:72 years Sex:Female Visit Date:02/26/2023 Primary Care Physician: Dandy Driscoll NP Basic Information Time Seen: Wm Crystal MD / 02/26/2023 11:10 Chief Complaint Pt c/o right sided abdominal pain since 2100 last night; ??worse with movement and palpation. ??Denies N/V/D/constipation/fevers; sour stomach for 3-4 days. No prior abdominal surgeries. ??Recent cold symptoms, mostly resolved. History Of Present Illness: 72-year-old female past medical history??diastolic heart failure, obesity,??hypertension, hyperlipidemia??presents with right upper quadrant pain starting last night??continuing into today [id number] out of 10 pain in the right side of the abdomen primarily the right upper quadrant??but some in the right lower, nonradiating, worse with movement,??not better with anything. ??Has not taken anything for the pain yet. ??No other associated symptoms,??no nausea vomiting chest pain shortness of breath dysuria hematuria??or any other symptoms. Review of Systems: Abdominal pain Physical Exam Vitals & Measurements T:??36.8?C ??(Temporal Artery)?? HR:??85??(Peripheral)?? HR:??85??(Monitored)?? RR:??17?? BP:??118/66?? SpO2:??95%?? HT:??157.000??cm?? WT:??118.30??kg?? BMI:??48.000?? Pain Score:??10?? O2 Therapy:??Room air?? General: Alert and oriented, well nourished,?No??acute distress Eye: PERRL, EOMI,?Normal?conjunctiva HENT: Normocephalic Lungs: Clear to auscultation and percussion,?Non-labored?? respiration Heart:?Normal? rate,?Regular??rhythm Abdomen: Reproducible right upper quadrant pain soft nonperitoneal Psychiatric: Cooperative, appropriate mood and affect Medical Decision Makin-year-old female presents with abdominal pain.?? 36.6, 130/77, 81, 14 point, 96%. ??Abdomen soft nonperitoneal has??some reproducible right upper quadrant and epigastric abdominal pain on exam.?? Reports a 10 out of 10 pain, clinically??overall looks well. ??Was given IV fluids and IV Tylenol.?? Her labs do not show a leukocytosis.?? Her creatinine and liver enzymes and lactate are normal. ??Lipase is normal. ??UA??has WBCs but moderate squamous cells, will wait for culture??to determine??if this is truly consumer sales representative of an infection.?? Her CT of the abdomen pelvis with contrast??does notshow any acute process. ??She did have some residual pain after the IV Tylenol,??viscous lidocaine and Maalox was attempted to see if this could help her pain in case intraluminal GI pathology were at play, this did not seem to touch her pain.?? Still was having some residual discomfort however discussed the options??about further pain control or going home with ljsf-hqw-jebuabe medications Tylenol and ibuprofen as needed, with close follow-up with primary care for reevaluation within 2 to 4 days. ??Patient in agreement with this type of plan.?Otherwise etiology of her pain at this time isnot entirely clear.?May be related to moving??intraluminal GI contents,??gastritis,??or musculoskeletal/abdominal wall pain. ??She has strong dorsalis pedis pulses bilateral lower extremities with good neurovascular exam bilateral lower extremities and upper extremities, doubt vascular etiology/dissection at this time. Discharged stable condition with return precautions the ED. Procedure No Qualifying Data Assessment/Plan 1.??Abdominal pain??R10.9 Ordered: Tylenol Extra Strength 500 mg oral tablet, 500 mg = 1 tab, Oral, every 4 hr, PRN as needed for pain, # 24 tab, 0 Refill(s), 03/08/23 15:01:00 EST, Pharmacy: [facility], 157, cm, 02/26/23 11:21:00 EST, Height, 118.3, kg, 02/26/23 11:21:00 EST, Weight Dosing ibuprofen 800 mg oral tablet, 800 mg = 1 tab, Oral, TID, PRN as needed for pain, # 30 tab, 0 Refill(s), 03/05/23 15:01:00 EST, Pharmacy: [facility], 157, cm, 02/26/23 11:21:00 EST, Height, 118.3, kg, 02/26/23 11:21:00 EST, Weight Dosing Discharge Patient, 02/26/23 14:59:00 EST, Home Independently, Constant Indicator ED Visit Follow Up [facility], Orders for future visit, 02/26/23 14:59:00 EST follow-up in 2-4 days for re-evaluation of abominal pain, undetermined etiology., Abdominal pain ?? Orders: Urine Culture, Urine, Stat collect, ST - Stat, 02/26/23 13:26:57 EST, Once, Nurse collect, Collected, 02/26/23 13:26:57 EST, Print Label, [id number] Patient Education Abdominal Pain, Adult Follow Up With When Contact Information Dandy Driscoll ROAD MANAGER Within 2 to 4 days [place] [phone]- Additional Instructions: Medication Reconciliation New Prescription acetaminophen (Tylenol Extra Strength 500 mg oral tablet)1 tab Oral (given by mouth) every 4 hours as needed as needed for pain. Refills: 0. ?? ibuprofen (ibuprofen 800 mg oral tablet)1 tab Oral (given by mouth) 3 times a day as needed as needed for pain. Refills: 0. ?? Unchanged albuterol (Albuterol (Eqv-ProAir [...] Oral (given by mouth) every day. ?? [id number] Milligrams Oral (given by mouth) 3 times [...] ONE TABLET BY MOUTH EVERY DAY. ?? ipratropium-albuterol (!-DuoNeb 0.5 mg-2.5 mg/3 mL [...] Lubricating Tears ophthalmic solution) ?? Other Prescription (InfoBionic ULTRA2 GLUCOSE SYST)USE TO TEST GLUCOSE LEVELS ONCE [...] tendon (04/1968)???Dilatation and curettage Medication Administration Given Al hydroxide/Mg hydroxide/simethicone, 20 mL, Oral lidocaine 2% mucous membrane solution, 15 mL, Oral NS bolus, 500 mL, Hydration Bolus Tylenol, 1000 mg, IV Piggyback Allergies Tape??(Unknown) ALCOHOL azithromycin??(Swollen face) meperidine??(Bewilderment) penicillins??(Swelling, [...] Murder Referral Orders ED Visit Follow Up [facility], Orders for future visit, 02/26/23 14:59:00 EST follow-up in 2-4 days for re-evaluation of abominal pain, undetermined etiology., Abdominal pain Lab Results CBC and Differential?? LATEST RESULTS?? HISTORICAL RESULTS?? WBC?? 02/26/23 11:51?? 9.6?? 07/12/22?? 11.0 ??High?? RBC?? 02/26/23 11:51?? 4.2?? 07/12/22?? 4.5?? Hgb?? 02/26/23 11:51?? 13.4?? 07/12/22?? 14.1?? Hct?? 02/26/23 11:51?? 40.7?? 07/12/22?? 43.4?? MCV?? 02/26/23 11:51?? 96.0?? 07/12/22?? 96.9 ??High?? MCH?? 02/26/23 11:51?? 31.6?? 07/12/22?? 31.5?? MCHC?? 02/26/23 11:51?? 32.9?? 07/12/22?? 32.5?? RDW-CV?? 02/26/23 11:51?? 13.6?? 07/12/22?? 14.1?? Platelets?? 02/26/23 11:51?? 244?? 07/12/22?? 254?? Neutro Auto?? 02/26/23 11:51?? 74.7?? 07/12/22?? 75.3 ??High?? Lymph Auto?? 02/26/23 11:51?? 15.9 ??Low?? 07/12/22?? 17.2 ??Low?? Trimble Auto?? 02/26/23 11:51?? 6.9?? 07/12/22?? 6.2?? Eos, Auto?? 02/26/23 11:51?? 1.9?? 07/12/22?? 0.6 ??Low?? Basophil Auto?? 02/26/23 11:51?? 0.3?? 07/12/22?? 0.3?? Imm Gran Auto?? 02/26/23 11:51?? 0.3?? 07/12/22?? 0.4?? Neutro Absolute?? 02/26/23 11:51?? 7.2?? 07/12/22?? 8.3? Routine Chemistry?? LATEST RESULTS?? HISTORICAL RESULTS?? Sodium Level?? 02/26/23 11:51?? 137?? 12/04/22?? 140?? Potassium Level?? 02/26/23 11:51?? 4.1?? 12/04/22?? 3.9?? Chloride Level?? 02/26/23 11:51?? 104?? 12/04/22?? 101?? CO2?? 02/26/23 11:51?? 29?? 12/04/22?? 32?? Alk Phos?? 02/26/23 11:51?? 58?? 07/12/22?? 72?? AST?? 02/26/23 11:51?? 12 ??Low?? 07/12/22?? 14 ??Low?? ALT?? 02/26/23 11:51?? 16?? 07/12/22?? 18?? BUN?? 02/26/23 11:51?? 11?? 12/04/22?? 19 ??High?? Glucose Level?? 02/26/23 11:51?? 115 ??High?? 12/04/22?? 126 ??High?? Creatinine Level?? 02/26/23 11:51?? 0.71?? 12/04/22?? 0.82?? eGFR AA?? 02/26/23 11:51?? 91?? 12/04/22?? 76?? eGFR Non-AA?? 02/26/23 11:51?? 91?? 12/04/22?? 76?? Calcium Level?? 02/26/23 11:51?? 9.3?? 12/04/22?? 9.3?? Protein Total?? 02/26/23 11:51?? 6.6?? 07/12/22?? 7.4?? Albumin Level?? 02/26/23 11:51?? 3.1 ??Low?? 07/12/22?? 3.5?? Bilirubin Total?? 02/26/23 11:51?? 0.8?? 07/12/22?? 0.8?? Lactic Acid Lvl?? 02/26/23 11:51?? 1.2? Lipase Level?? 02/26/23 11:51?? 13 ??Low? Magnesium Level?? 02/26/23 11:51?? 1.7 ??Low?? 04/23/22?? 1.9? UA Macroscopic?? LATEST RESULTS?? HISTORICAL RESULTS?? UA Color?? 02/26/23 13:26?? Yellow?? 04/23/22?? Pale Yellow?? UA Appear?? 02/26/23 13:26?? Clear?? 04/23/22?? Hazy Abnormal?? UA Glucose?? 02/26/23 13:26?? Negative?? 04/23/22?? 3+ Abnormal?? UA Bili?? 02/26/23 13:26?? Negative?? 04/23/22?? Negative?? UA Ketones?? 02/26/23 13:26?? Negative?? 04/23/22?? Negative?? UA Spec Grav?? 02/26/23 13:26?? 1.025?? 04/23/22?? 1.015?? UA Blood?? 02/26/23 13:26?? 2+ Abnormal?? 04/23/22?? 2+ Abnormal?? UA pH?? 02/26/23 13:26?? 5.5?? 04/23/22?? 6.0?? UA Protein?? 02/26/23 13:26?? Negative?? 04/23/22?? Negative?? UA Urobilinogen?? 02/26/23 13:26?? Normal?? 04/23/22?? Normal?? UA Nitrite?? 02/26/23 13:26?? Negative?? 04/23/22?? Positive Abnormal?? UA Leuk Est?? 02/26/23 13:26?? Negative?? 04/23/22?? Negative?? UA Culture Ind?.?? 02/26/23 13:26?? Indicated?? 04/23/22?? Indicated? UA Microscopic?? LATEST RESULTS?? HISTORICAL RESULTS?? UA WBC?? 02/26/23 13:26?? 10-25 Abnormal?? 04/23/22?? 0-3?? UA RBC?? 02/26/23 13:26?? 5-10?? 04/23/22?? 0-2?? UA Squam Epithelial?? 02/26/23 13:26?? Moderate Abnormal?? 04/23/22?? Rare?? UA Mucous?? 02/26/23 13:26?? None Seen?? 04/23/22?? None Seen?? UA Bacteria?? 02/26/23 13:26?? Rare?? 04/23/22?? Moderate Abnormal? Electronically Signed on 02/26/23 03:02 PM Mckechnie, Wm Robert MD Emergency department Discharge instructions * Wm Crystal MD: PERFORM Event Display: ED Discharge Information Authored Date: [id number] SURYA QUINTANA :1950 Age:72 years Sex:Female Visit Date:02/26/2023 Primary Care Physician: Dandy Driscoll ROAD MANAGER Discharge Instructions We would like to thank you for allowing us to assist you with your healthcare needs. The following includes patient education materials and information regarding your injury/illness. Diagnosis from Today's Visit Abdominal pain Discharge Vitals Temperature??(Temporal Artery) 98.2 ??F (36.8 ??C) Heart Rate??(Peripheral) 85 Heart Rate??(Monitored) 85 Respiratory Rate?? 17 Blood Pressure?? 118/66?? Height?? 61.81 in (157.000 cm) Weight?? 260.85 lb (118.30 kg) BMI?? 48.000 Allergies Tape??(Unknown) ALCOHOL azithromycin??(Swollen face) meperidine??(Bewilderment) penicillins??(Swelling, Other) tetanus toxoids What to Do Next Instructions from Your Care Team You were seen in the emergency department today for abdominal pain. ??Your vitals, labs, and CT scan of the abdomen and pelvis??appeared to be normal. ??The??reason for your pain at this time is not entirely clear. ??You can try to control your symptoms and pain with??Tylenol and ibuprofen which was prescribed.?? Please follow-up closely with primary care within 2 to 4 days for repeat evaluation.??If you have any worsening symptoms at home please come back to the emergency department. You Need to Schedule the Following Appointments Follow Up with??Dandy Driscoll NP When:??Within 2 to 4 days Where: [facility] [address] [address] Upcoming Scheduled Appointments Sunday 11:30 AM EST ?? With: Kinsey Patiño Where: [address] [address] Status: Confirmed Sunday 2:20 PM EST ?? With: Paco Sheppard MD Where: [address], [address] [place] [address] Status: Confirmed Sunday 2:45 PM EST ?? With: Kati Soni NP Where: [facility] [address] [place] [address] Status: Confirmed You were treated [...] Much When Why Instructions Next Dose New acetaminophen (Tylenol Extra Strength 500 mg oraltablet) 1 tab Oral (given by mouth) Every 4 hours as needed for as needed for pain Abdominal pain Pickup at [facility] New ibuprofen (ibuprofen 800 mg oral tablet) 1 tab Oral (given by mouth) 3 times a day as needed for as needed for pain Abdominal pain Pickup at [facility] Unchanged albuterol (Albuterol (Eqv-ProAir HFA) 90 [...] TABLET BY MOUTH EVERY DAY ?? Unchanged ipratropium-albuterol (!-DuoNeb 0.5 mg-2.5 mg/ 3 [...] Lubricating Tears ophthalmic solution) Unchanged Other Prescription (ONETOUCH ULTRA2 GLUCOSE SYST) See instructions USE TO TEST [...] affected areas as needed. ?? Pharmacy Information [facility]: [address], [place] [phone] Education Materials Abdominal Pain, Adult Pain in [...] these instructions at home: Medicines ? Take ysqc-otz-nzxzxdo and prescription medicines only as told by [...] your condition for any changes. ? Take udle-reu-ucccfok and prescription medicines only as told by [...] provider. Document Revised: 05/14/2020 Document Reviewed: 08/04/2019 [employer] Patient Education ?? 2022 [employer] Tests Performed Medications and Immunizations Administered Given Al hydroxide/Mg hydroxide/simethicone, 20 mL, Oral lidocaine 2% mucous membrane solution, 15 mL, Oral NS bolus, 500 mL, Hydration Bolus Tylenol, 1000 mg, IV Piggyback Lab Test Name Test Result Date/Time WBC 9.6 x10^3/mcL 02/26/2023 11:51 EST RBC 4.2 x10^6/mcL 02/26/2023 11:51 EST Hgb 13.4 g/dL 02/26/2023 11:51 EST Hct 40.7 % 02/26/2023 11:51 EST MCV 96.0 fL 02/26/2023 11:51 EST MCH 31.6 pg 02/26/2023 11:51 EST MCHC 32.9 g/dL 02/26/2023 11:51 EST RDW-CV 13.6 % 02/26/2023 11:51 EST Platelets 244 x10^3/mcL 02/26/2023 11:51 EST Neutro Auto 74.7 % 02/26/2023 11:51 EST Lymph Auto 15.9 % 02/26/2023 11:51 EST Trimble Auto 6.9 % 02/26/2023 11:51 EST Eos, Auto 1.9 % 02/26/2023 11:51 EST Basophil Auto 0.3 % 02/26/2023 11:51 EST Imm Gran Auto 0.3 % 02/26/2023 11:51 EST Neutro Absolute 7.2 x10^3/mcL 02/26/2023 11:51 EST Sodium Level 137 mmol/L 02/26/2023 11:51 EST Potassium Level 4.1 mmol/L 02/26/2023 11:51 EST Chloride Level 104 mmol/L 02/26/2023 11:51 EST CO2 29 mmol/L 02/26/2023 11:51 EST Alk Phos 58 unit/L 02/26/2023 11:51 EST AST 12 unit/L 02/26/2023 11:51 EST ALT 16 unit/L 02/26/2023 11:51 EST BUN 11 mg/dL 02/26/2023 11:51 EST Glucose Level 115 mg/dL 02/26/2023 11:51 EST Creatinine Level 0.71 mg/dL 02/26/2023 11:51 EST eGFR AA 91 02/26/2023 11:51 EST eGFR Non-AA 91 02/26/2023 11:51 EST Calcium Level 9.3 mg/dL 02/26/2023 11:51 EST Protein Total 6.6 g/dL 02/26/2023 11:51 EST Albumin Level 3.1 g/dL 02/26/2023 11:51 EST Bilirubin Total 0.8 mg/dL 02/26/2023 11:51 EST Lactic Acid Lvl 1.2 mmol/L 02/26/2023 11:51 EST Lipase Level 13 unit/L 02/26/2023 11:51 EST Magnesium Level 1.7 mg/dL 02/26/2023 11:51 EST UA Color YELLOW. 02/26/2023 13:26 EST UA Appear CLEAR. 02/26/2023 13:26 EST UA Glucose NEGATIVE 02/26/2023 13:26 EST UA Bili NEGATIVE 02/26/2023 13:26 EST UA Ketones NEGATIVE 02/26/2023 13:26 EST UA Spec Grav 1.025 02/26/2023 13:26 EST UA Blood 2+ 02/26/2023 13:26 EST UA pH 5.5 02/26/2023 13:26 EST UA Protein NEGATIVE 02/26/2023 13:26 EST UA Urobilinogen 0.2 Uro 02/26/2023 13:26 EST UA Nitrite NEGATIVE 02/26/2023 13:26 EST UA Leuk Est NEGATIVE 02/26/2023 13:26 EST UA Culture Ind?. Indicated 02/26/2023 13:26 EST UA WBC 10-25 02/26/2023 13:26 EST UA RBC 5-10 02/26/2023 13:26 EST UA Squam Epithelial Moderate 02/26/2023 13:26 EST UA Mucous None Seen 02/26/2023 13:26 EST UA Bacteria Rare 02/26/2023 13:26 EST Patient/Oxygen Therapist Signature Patient Name:SURYA QUINTANA I have received this information and my questions have been answered. Patient/Oxygen Therapist Name: Patient/Oxygen Therapist Signature: Relationship to Patient: Witness Name/Signature: Date: Electronically Signed on: 02/26/2023 15:02 ESTSigned by:[facility] Emergency department Note * Margaret Burnett M: PERFORM Event Display: ED Notes Authored Date: [id number] Patient Care team information Care Team Personnel Name: Dandy Driscoll ROAD MANAGER Position: Physician Member Role: Informed Provider Address: Address: [address] [address]- [place] Name: Kinsey Patiño Position: Ambulatory - RN/RANGE MECHANIC (Franck) Member Role: Sewer Name: Gisela Urrutia Position: Nurse Member Role: ED Nurse Name: Wm Crystal MD Position: Physician Member Role: ED Physician Address: Address: [facility] [address] [place] [address]- Care Team Related Persons Name: ASH QUINTANA
--- OUTSIDE RECORDS SUMMARY | 2024-02-27 19:30 | XMS_ITS | Continuity of Care Document ---
Author Organization [facility] Address [address] [place] [address] Care Team Providers Care Manager Collection Name Role Phone Dandy Driscoll Carola Primary Care Physician Encounter [facility] Date(s): 05/22/23 - 05/22/23 [facility] [address] [place] [address] Discharge Disposition: Home Allergies, Adverse Reactions, Alerts Substance Reaction Severity [...] rded pneumococcal 23-polyvalent vaccine 02/13/08 Record ed [id number]-DeU-3-mRNA-1273 (booster only) vacc 09/23/21 Recorded MFSQ-QhF-5-mRNA-1273 (booster only) vacc 07/09/20 Recorded influenza, unspecified formulation 01/07/21 Record ed influenza, unspecified formulation 01/02/20 Record ed influenza, unspecified formulation 02/06/19 Record ed influenza, unspecified formulation 01/22/18 Record ed SARS-CoV-2 (COVID-19) mRNA-1273 vaccine 07/09/20 R ecorded SARS-CoV-2 (COVID-19) mRNA-1273 vaccine 06/11/20 R ecorded SARS-CoV-2 (COVID-19) mRNA-1273 vaccine 3 06/11/20 Recorded pneumococcal 13-valent conjugate vaccine 02/06/19 Recorded zoster vaccine live 01/22/13 Recorded Novel [id number], all formulation 04/29/09 Recorded pneumococcal 7-valent vaccine 04/09/00 Recorded Not Given Vaccine Date Status Refusal Reason Td(adult) unspecified formulation 4 04/27/20 Not G iven Patient Refuses 1Result Comment: Given at the pharmacy-see record 2Result Comment: [facility] 3Result Comment: 1st vaccine 4Result Comment: Last Modified by Azra Dykes, Senior Java Data Architect 04-27-2020, 11:54 Medications !-DuoNeb 0.5 mg-2.5 mg/3 mL inhalation solution 3 mL, NEB, QID, # 120 EA, 0 Refill(s), Pharmacy: [facility] #58, 157, cm, 04/21/22 4:43:00 EST, Height/Length Dosing, 122.47, kg, 04/21/22 4:43:00 EST, Weight Dosing Start Date: 04/21/22 Status: Ordered 1 nebulizer machine 1 nebulizer machine, asthma 493.9 and copd exacerbation J44.1, nebulizers treatement qid and q3-4h prn, Supply, See instructions, # 1 EA, 0 Refill(s) Start Date: 04/21/22 Status: Ordered acetaminophen 500 mg oral capsule 1,000 mg = 2 cap, Oral, every 6 hr, # 240 cap, 0 Refill(s), Pharmacy: [facility] #58, 157, cm, 02/27/23 9:53:00 EST, Height, 118.55, kg, 03/02/23 12:53:00 EST, Weight Dosing Start Date: 03/02/23 Status: Ordered Acidophilus oral capsule 0 Refill(s) Start Date: 10/27/21 Status: Ordered Advair Diskus 500 mcg-50 mcg inhalation powder 1 puffs, Inhale, BID, # 28 EA, 4 Refill(s), Pharmacy: [facility] #58, 157, cm, 04/22/22 20:46:00 EST, Height/Length Dosing, 122.47, kg, 04/22/22 20:46:00 EST, Weight Dosing Start Date: 05/11/22 Status: Ordered Albuterol (Eqv-ProAir HFA) 90 mcg/inh inhalation aerosol 180 mcg 2 puffs, Inhale, every 4 hr, PRN as needed for wheezing, # 8.5 g, 2 Refill(s), Pharmacy: [facility], 155, cm, 09/23/21 4:52:00 EDT, Height/Length Dosing, 125, kg, 09/23/21 4:52:00 EDT, Weight Dosing Start Date: 11/21/21 Status: Ordered albuterol 2.5 mg/3 mL (0.083%) inhalation solution 2.5 mg = 3 mL, NEB, every 4 hr, PRN as needed for wheezing, # 180 mL, 3 Refill(s), Pharmacy: [facility] #58, 157, cm, 04/21/22 4:43:00 EST, Height/Length [...] Refill(s) Start Date: 04/19/22 Status: Ordered benzonatate 200 mg oral capsule 200 mg = 1 cap, Oral, TID, PRN as needed for cough, # 30 cap, 0 Refill(s), Pharmacy: [facility] #58, 157, cm, 03/27/23 9:48:00 EST, Height, 113.15, kg, 05/02/23 15:34:00 EST, Weight Dosing Start Date: 05/02/23 Status: Ordered buPROPion 300 mg/24 hours (XL) oral tablet, extended release 300 mg = 1 tab, Oral, Daily, # 90 tab, 2 Refill(s), Pharmacy: [facility], 155, cm, 09/23/21 4:52:00 EDT, Height/Length Dosing, 125, kg, 09/23/21 4:52:00 EDT, Weight Dosing Start Date: 11/21/21 Status: Ordered cannabidiol See Instructions, CBD Cream 3000 mg; apply as directed., 0 Refill(s) Start Date: 10/27/21 Status: Ordered clindamycin 300 mg oral capsule See Instructions, TAKE 2 CAPSULES BY MOUTH ONCE PRIOR TO DENTAL PROCEDURE, # 2 cap, 0 Refill(s), Pharmacy: [facility] #58, 157, cm, 03/27/23 9:48:00 EST, Height, 113.15, kg, 05/02/23 15:34:00 EST, Weight Dosing Start Date: 05/10/23 Status: Ordered Cranberry oral tablet 1 tab, [...] instructions, # 1 EA, 0 Refill(s), Pharmacy: [facility] Start Date: 12/04/22 Status: Ordered lancets lancets, tests blood sugar once daily, Supply, See instructions, # 100 EA, 3 Refill(s), Pharmacy: [facility] Start Date: 12/04/22 Status: Ordered loperamide 2 mg oral capsule 2 mg = 1 cap, Oral, TID, PRN as needed for loose stool, # 270 cap, 1 Refill(s), Pharmacy: [facility], 155, cm, 09/23/21 4:52:00 EDT, Height/Length Dosing, 125, kg, 09/23/21 4:52:00 EDT, Weight Dosing Start Date: 11/21/21 Status: Ordered Myrbetriq 25 mg oral tablet, extended release 25 mg = 1 tab, Oral, Daily, do not crush or chew; total daily dose 75 mg (50 + 25), # 90 tab, 3 Refill(s), Pharmacy: [facility] #58, 157, cm, 02/27/23 9:53:00 EST, Height, 118.55, kg, 03/02/23 12:53:00 EST, Weight Dosing Start Date: 03/08/23 Stop Date: 03/02/24 Status: Ordered Myrbetriq 50 mg oral tablet, extended release 50 mg = 1 tab, Oral, Daily, do not crush or chew, # 90 tab, 3 Refill(s), Pharmacy: [facility]58, 157, cm, 02/27/23 9:53:00 EST, Height, 118.55, kg, 03/02/23 12:53:00 EST, Weight Dosing Start Date: 03/08/23 Stop Date: 03/02/24 Status: Ordered naproxen 500 mg oral tablet 500 mg = 1 tab, Oral, BID, # 60 tab, 1 Refill(s), Pharmacy: [facility], 155,cm, 09/23/21 4:52:00 EDT, Height/Length Dosing, 125, kg, 09/23/21 4:52:00 EDT, Weight Dosing Start Date: 11/21/21 Status: Ordered Nyamyc 100,000 units/g topical powder See Instructions, Topical BID as needed for yeast, # 30 g, 0 Refill(s), Pharmacy: [facility], 155, cm, 09/23/21 4:52:00 EDT, Height/Length Dosing, 125, kg, 09/23/21 4:52:00 EDT, Weight Dosing Start Date: 11/21/21 Status: Ordered ONETOUCH ULTRA2 GLUCOSE SYST ONETOUCH ULTRA2 GLUCOSE SYST, See Instructions, USE TO TEST GLUCOSE LEVELS ONCE DAILY, # 1 EA, 0 Refill(s), Pharmacy: [facility] #58, 157, cm, 02/14/23 11:37:00 EST, Height, [...] instructions, # 100 EA, 3 Refill(s), Pharmacy: [facility] #58 Start Date: 12/04/22 Status: Ordered tobramycin 0.3% ophthalmic solution 1 drops, Eye-Both, QID, # 5 mL, 0 Refill(s), Pharmacy: [facility] #58, 157, cm, 04/22/22 20:46:00 EST, Height/Length Dosing, 122.47, kg, 04/22/22 20:46:00 EST, Weight Dosing Start Date: 06/13/22 Stop Date: 06/20/22 Status: Ordered torsemide 20 mg oral tablet 20 mg = 1 tab, Oral, Daily, # 90 tab, 4 Refill(s), Pharmacy: [facility] #58, 157, cm, 04/22/22 20:46:00 EST, Height/Length Dosing, 122.47, kg, 04/22/22 20:46:00 EST, Weight Dosing Start Date: 07/04/22 Status: Ordered triamcinolone 0.1% topical cream 1 che, Topical, TID, PRN not specified, Apply to affected areas as needed., # 30 g, 0 Refill(s), Pharmacy: [facility], 155, cm, 09/23/21 4:52:00 [...] a Covid PCR test this afternoon. 3per [facility] [place] Procedures Procedure Date Related Diagnosis Body Site Status Colonoscopy 1 10/24/18 Completed Total arthroplasty of the left hip 02/12/18 Completed Complete repair of right rotator cuff 01/06/09 Completed PAP Due 2013 2 05/29/07 Completed Colonoscopy 3 08/11/02 Completed [...] information Care Team Personnel Name: Dandy Driscoll NEON ELECTRICIAN Position: Physician Member Role: Informed Provider Address: Address: [address] Name: Kinsey Patiño Position: Ambulatory - RN/SINGLE STROKE PREFORMER (Franck) Member Role: Coding Support Specialist Care Team Related Persons Name: ASH QUINTANA
--- OUTSIDE RECORDS SUMMARY | 2024-02-27 19:30 | XMS_ITS | Continuity of Care Document ---
Author Organization [facility] Address [address] [place] [address] Care Team Providers Care Residential Building Inspector Name Role Phone Dandy Driscoll Primary Care Physician [phone] Encounter [facility] Date(s): 08/30/23 - 08/30/[address] [address] Discharge Disposition: Home or Self Care Attending Physician: Dandy Driscoll NP Admitting Physician: Dandy Driscoll NP Referring Physician: Dandy Driscoll BEAMER HELPER Allergies, Adverse Reactions, Alerts Substance Reaction Severity Status ALCOHOL 1 Moderate Active meperidine Bewilderment Unknown Active azithromycin Swollen face Unknown Active penicillins Swelling Other Unknown Active tetanus toxoids Unknown Active Tape 2 Unknown Severe Active 1Rubbing 2Outside Source Comment: Rips the skin off when removing Assessment and Plan Future Appointments Diagnostic Tests Pending * Urinalysis Notify Lab 08/30/23 Future Scheduled Tests Radiology* US Pelvic Non OB Comp w/ [...] rded pneumococcal 23-polyvalent vaccine 02/13/08 Record ed [id number]-3-mRNA-1273 (booster only) vacc 09/23/21 Recorded VZER-HaL-0-mRNA-1273 (booster only) vacc 07/09/20 Recorded influenza, unspecified formulation 01/07/21 Record ed influenza, unspecified formulation 01/02/20 Record ed influenza, unspecified formulation 02/06/19 Record ed influenza, unspecified formulation 01/22/18 Record ed SARS-CoV-2 (COVID-19) mRNA-1273 vaccine 07/09/20 R ecorded SARS-CoV-2 (COVID-19) mRNA-1273 vaccine 06/11/20 R ecorded SARS-CoV-2 (COVID-19) mRNA-1273 vaccine 3 06/11/20 Recorded pneumococcal 13-valent conjugate vaccine 02/06/19 Recorded zoster vaccine live 01/22/13 Recorded Novel [id number], all formulation 04/29/09 Recorded pneumococcal 7-valent vaccine 04/09/00 Recorded Not Given Vaccine Date Status Refusal Reason Td(adult) unspecified formulation 4 04/27/20 Not G iven Patient Refuses 1Result Comment: Given at the pharmacy-see record 2Result Comment: [facility] pharmacy 3Result Comment: 1st vaccine 4Result Comment: Last Modified by Azra Dykes, Office Employee 04-27-2020, 11:54 Medications !-DuoNeb 0.5 mg-2.5 mg/3 mL inhalation solution 3 mL, NEB, QID, # 120 EA, 0 Refill(s), Pharmacy: [facility] #58, 157, cm, 04/21/22 4:43:00 EST, Height/Length [...] hr, # 240 cap, 0 Refill(s), Pharmacy: [facility] #58, 157, cm, 02/27/23 9:53:00 EST, Height, 118.55, kg, 03/02/23 12:53:00 EST, Weight Dosing Start Date: 03/02/23 Status: Ordered Acidophilus oral capsule 0 Refill(s) Start Date: 10/27/21 Status: Ordered Advair Diskus 500 mcg-50 mcg inhalation powder 1 puffs, Inhale, BID, # 28 EA, 4 Refill(s), Pharmacy: [facility] #58, 157, cm, 04/22/22 20:46:00 EST, Height/Length Dosing, 122.47, kg, 04/22/22 20:46:00 EST, Weight Dosing Start Date: 05/11/22 Status: Ordered Albuterol (Eqv-ProAir HFA) 90 mcg/inh inhalation aerosol 180 mcg 2 puffs, Inhale, every 4 hr, PRN as needed for wheezing, # 8.5 g, 2 Refill(s), Pharmacy: [facility], 155, cm, 09/23/21 4:52:00 EDT, Height/Length Dosing, 125, kg, 09/23/21 4:52:00 EDT, Weight Dosing Start Date: 11/21/21 Status: Ordered albuterol 2.5 mg/3 mL (0.083%) inhalation solution 2.5 mg = 3 mL, NEB, every 4 hr, PRN as needed for wheezing, # 180 mL, 3 Refill(s), Pharmacy: [facility] #58, 157, cm, 04/21/22 4:43:00 EST, Height/Length [...] cough, # 30 cap, 0 Refill(s), Pharmacy: [facility] #58, 157, cm, 03/27/23 9:48:00 EST, Height, 113.15, kg, 05/02/23 15:34:00 EST, Weight Dosing Start Date: 05/02/23 Status: Ordered buPROPion 300 mg/24 hours (XL) oral tablet, extended release 300 mg = 1 tab, Oral, Daily, # 90 tab, 2 Refill(s), Pharmacy: [facility], 155, cm, 09/23/21 4:52:00 [...] appointments, # 4 cap, 0 Refill(s), Pharmacy: [facility] #58, 157, cm, 03/27/23 9:48:00 EST, Height, [...] instructions, # 1 EA, 0 Refill(s), Pharmacy: [facility] #58 Start Date: 12/04/22 Status: Ordered lancets lancets, tests blood sugar once daily, Supply, See instructions, # 100 EA, 3 Refill(s), Pharmacy: [facility] #58 Start Date: 12/04/22 Status: Ordered loperamide 2 mg oral capsule 2 mg = 1 cap, Oral, TID, PRN as needed for loose stool, # 270 cap, 1 Refill(s), Pharmacy: [facility], 155, cm, 09/23/21 4:52:00 [...] 25), # 90 tab, 3 Refill(s), Pharmacy: [facility] #58, 157, cm, 02/27/23 9:53:00 EST, Height, 118.55, kg, 03/02/23 12:53:00 EST, Weight Dosing Start Date: 03/08/23 Stop Date: 03/02/24 Status: Ordered Myrbetriq 50 mg oral tablet, extended release 50 mg = 1 tab, Oral, Daily, do not crush or chew, # 90 tab, 3 Refill(s), Pharmacy: [facility]58, 157, cm, 02/27/23 9:53:00 EST, Height, 118.55, kg, 03/02/23 12:53:00 EST, Weight Dosing Start Date: 03/08/23 Stop Date: 03/02/24 Status: Ordered naproxen 500 mg oral tablet 500 mg = 1 tab, Oral, BID, # 60 tab, 1 Refill(s), Pharmacy: [facility], 155,cm, 09/23/21 4:52:00 EDT, Height/Length Dosing, 125, kg, 09/23/21 4:52:00 EDT, Weight Dosing Start Date: 11/21/21 Status: Ordered Nyamyc 100,000 units/g topical powder See Instructions, Topical BID as needed for yeast, # 30 g, 0 Refill(s), Pharmacy: [facility], 155, cm, 09/23/21 4:52:00 EDT, Height/Length Dosing, 125, kg, 09/23/21 4:52:00 EDT, Weight Dosing Start Date: 11/21/21 Status: Ordered ONETOUCH ULTRA2 GLUCOSE SYST ONETOUCH ULTRA2 GLUCOSE SYST, See Instructions, USE TO TEST GLUCOSE LEVELS ONCE DAILY, # 1 EA, 0 Refill(s), Pharmacy: [facility] #58, 157, cm, 02/14/23 11:37:00 EST, Height, [...] instructions, # 100 EA, 3 Refill(s), Pharmacy: [facility] #58 Start Date: 12/04/22 Status: Ordered tobramycin 0.3% ophthalmic solution 1 drops, Eye-Both, QID, # 5 mL, 0 Refill(s), Pharmacy: [facility] #58, 157, cm, 04/22/22 20:46:00 EST, Height/Length Dosing, 122.47, kg, 04/22/22 20:46:00 EST, Weight Dosing Start Date: 06/13/22 Stop Date: 06/20/22 Status: Ordered torsemide 20 mg oral tablet 20 mg = 1 tab, Oral, Daily, # 90 tab, 4 Refill(s), Pharmacy: [facility] #58, 157, cm, 04/22/22 20:46:00 EST, Height/Length Dosing, 122.47, kg, 04/22/22 20:46:00 EST, Weight Dosing Start Date: 07/04/22 Status: Ordered triamcinolone 0.1% topical cream 1 che, Topical, TID, PRN not specified, Apply to affected areas as needed., # 30 g, 0 Refill(s), Pharmacy: [facility], 155, cm, 09/23/21 4:52:00 EDT, Height/Length [...] Cyanosis Confirmed Active Depressive disorder Confirmed Active Dysuria Confirmed Active Edema leg [...] 03/22/18 Active Intestinal disaccharidase deficiency Confirmed Active Lack of social support Confirmed [...] a Covid PCR test this afternoon. 3per [facility] ortho note Procedures Procedure [...] Results Laboratory List Name Date .Urinalysis POCT 08/30/23 Urinalysis Microscopic 08/30/23 Most recent to oldest [Reference Range]: 1 UA WBC [0-3] 10-25 *ABN* (08/30/23 9:44 AM) UA RBC [0-2] 10-25 (08/30/23 9:44 AM) UA Bacteria Few /HPF *ABN* (08/30/23 9:44 AM) UA Mucous Rare /HPF *ABN* (08/30/23 9:44 AM) UA Squam Epithelial [None Seen] Few *ABN* (08/30/23 9:44 AM) UA Culture Ind?. Indicated (08/30/23 9:44 AM) UA Amorph Many /HPF (08/30/23 9:44 AM) UA Trans Epi Few (08/30/23 9:44 AM) Method of Collect POC Clean Catch *NA* (08/30/23 9:44 AM) Specific [place], Ur POC 1.020 *NA* (08/30/23 9:44 AM) Specimen Color POC Yellow *NA* (08/30/23 9:44 AM) Glucose, Urine POC [Negative] Negative (08/30/23 9:44 AM) Bilirubin, Urine POC [Negative] Negative (08/30/23 9:44 AM) Ketones, Urine POC [Negative] Negative (08/30/23 9:44 AM) Blood, Urine POC [Negative] Large *ABN* (08/30/23 9:44 AM) pH, Urine POC 5.5 *NA* (08/30/23 9:44 AM) Protein, Urine POC [Negative] Negative (08/30/23 9:44 AM) Urobilinogen, Urine POC Normal (08/30/23 9:44 AM) Nitrite, Urine POC [Negative] Negative (08/30/23 9:44 AM) Leuk Esterase, Urine POC [Negative] Smal l *ABN* (08/30/23 9:44 AM) Clarity, Urine POC [Clear] Clear (08/30/23 9:44 AM) Orders for Microbiology Reports Name Date Urine Culture 08/30/23 Microbiology Reports TEST:Urine Culture STATUS:Order in Progress BODY SITE: SOURCE:Urine COLLECTED DATE/TIME:08/30/23 9:44 AM PRELIMINARY REPORT No growth at 24 hours. Social History Social History Type Response Tobacco Former tobacco user Tobacco Use:. Sex Female Patient Care team information Care Team Personnel Name: Dandy Driscoll BEAMER HELPER Position: Physician Member Role: Informed Provider Address: Address: [address] Name: Kinsey Patiño Position: Ambulatory - RN/SUPERVISOR PROCESS TESTING (Franck) Member Role: Spooler Operator Care Team Related Persons Name: ASH QUINTANA
--- OUTSIDE RECORDS SUMMARY | 2024-02-27 19:30 | XMS_ITS | Continuity of Care Document ---
Author Organization [facility] Address [address] [place] [address] Care Team Providers Care Referral Nurse Name Role Phone Dandy Driscoll Primary Care Physician Encounter [facility] Date(s): 12/04/22 - 12/04/[address] [id number] Discharge Disposition: Home or Self Care Attending Physician: Dandy Driscoll NP Admitting Physician: Dandy Driscoll NP Referring Physician: Dandy Driscoll PROFESSOR OF FORESTRY Allergies, Adverse Reactions, Alerts Substance Reaction Severity Status ALCOHOL 1 Moderate Active azithromycin Swollen face Unknown Active penicillins Swelling Other Unknown Active Tape 2 Unknown Severe Active meperidine Bewilderment Unknown Active tetanus toxoids Unknown Active 1Rubbing 2Outside Source Comment: Rips the [...] rded pneumococcal 23-polyvalent vaccine 02/13/08 Record ed [id number]-1273 (booster only) vacc 09/23/21 Recorded OHDL-JjH-0-mRNA-1273 (booster only) vacc 07/09/20 Recorded influenza, unspecified formulation 01/07/21 Record ed influenza, unspecified formulation 01/02/20 Record ed influenza, unspecified formulation 02/06/19 Record ed influenza, unspecified formulation 01/22/18 Record ed SARS-CoV-2 (COVID-19) mRNA-1273 vaccine 07/09/20 R ecorded SARS-CoV-2 (COVID-19) mRNA-1273 vaccine 06/11/20 R ecorded SARS-CoV-2 (COVID-19) mRNA-1273 vaccine 3 06/11/20 Recorded pneumococcal 13-valent conjugate vaccine 02/06/19 Recorded zoster vaccine live 01/22/13 Recorded Novel [id number], all formulation 04/29/09 Recorded pneumococcal 7-valent vaccine 04/09/00 Recorded Not Given Vaccine Date Status Refusal Reason Td(adult) unspecified formulation 4 04/27/20 Not G iven Patient Refuses 1Result Comment: Given at the pharmacy-see record 2Result Comment: [facility] 3Result Comment: 1st vaccine 4Result Comment: Last Modified by Azra Dykes, Developer Advocate 04-27-2020, 11:54 Medications !-DuoNeb 0.5 mg-2.5 mg/3 mL inhalation solution 3 mL, NEB, QID, # 120 EA, 0 Refill(s), Pharmacy: [facility], 157, cm, 04/21/22 4:43:00 EST, Height/Length [...] BID, # 28 EA, 4 Refill(s), Pharmacy: [facility]58, 157, cm, 04/22/22 20:46:00 EST, Height/Length Dosing, 122.47, kg, 04/22/22 20:46:00 EST, Weight Dosing Start Date: 05/11/22 Status: Ordered Albuterol (Eqv-ProAir HFA) 90 mcg/inh inhalation aerosol 180 mcg 2 puffs, Inhale, every 4 hr, PRN as needed for wheezing, # 8.5 g, 2 Refill(s), Pharmacy: [facility], 155, cm, 09/23/21 4:52:00 EDT, Height/Length Dosing, 125, kg, 09/23/21 4:52:00 EDT, Weight Dosing Start Date: 11/21/21 Status: Ordered albuterol 2.5 mg/3 mL (0.083%) inhalation solution 2.5 mg = 3 mL, NEB, every 4 hr, PRN as needed for wheezing, # 180 mL, 3 Refill(s), Pharmacy: [facility], 157, cm, 04/21/22 4:43:00 EST, Height/Length [...] Daily, # 90 tab, 2 Refill(s), Pharmacy: [facility], 155, cm, 09/23/21 4:52:00 [...] instructions, # 1 EA, 0 Refill(s), Pharmacy: [facility] Start Date: 12/04/22 Status: Ordered Jardiance 10 mg oral tablet 10 mg = 1 tab, Oral, every morning, # 90 tab, 2 Refill(s), 157, cm, 07/12/22 4:56:00 EDT, Height/Length Dosing, 125.7, kg, 07/12/22 4:56:00 EDT, Weight Dosing Start Date: 10/18/22 Status: Ordered lancets lancets, tests blood sugar once daily, Supply, See instructions, # 100 EA, 3 Refill(s), Pharmacy: [facility] Start Date: 12/04/22 Status: Ordered loperamide 2 mg oral capsule 2 mg = 1 cap, Oral, TID, PRN as needed for loose stool, # 270 cap, 1 Refill(s), Pharmacy: [facility], 155, cm, 09/23/21 4:52:00 EDT, Height/Length Dosing, 125, kg, 09/23/21 4:52:00 EDT, Weight Dosing Start Date: 11/21/21 Status: Ordered naproxen 500 mg oral tablet 500 mg = 1 tab, Oral, BID, # 60 tab, 1 Refill(s), Pharmacy: [facility], 155,cm, 09/23/21 4:52:00 EDT, Height/Length Dosing, 125, kg, 09/23/21 4:52:00 EDT, Weight Dosing Start Date: 11/21/21 Status: Ordered Nyamyc 100,000 units/g topical powder See Instructions, Topical BID as needed for yeast, # 30 g, 0 Refill(s), Pharmacy: [facility], 155, cm, 09/23/21 4:52:00 EDT, Height/Length Dosing, 125, kg, 09/23/21 4:52:00 EDT, Weight Dosing Start Date: 11/21/21 Status: Ordered Ozempic 2 mg/1.5 mL (0.25 mg or 0.5 mg dose) subcutaneous solution 0.5 mg =, Subcutaneous, every week, rotate injection sites, # 1 EA, 0 Refill(s), Pharmacy: [facility], 157, cm, 07/12/22 4:56:00 EDT, Height/Length Dosing, 125.7, kg, 07/12/22 4:56:00 EDT, Weight Dosing Start Date: 12/04/22 Status: Ordered prednisoLONE acetate 0.12% ophthalmic suspension 0 Refill(s) Start Date: 10/18/22 Status: Ordered Sterile Lubricating Tears ophthalmic solution 0 Refill(s) Start Date: 10/18/22 Status: Ordered test strips test strips, test blood sugar daily, Supply, See instructions, # 100 EA, 3 Refill(s), Pharmacy: [facility] Start Date: 12/04/22 Status: Ordered tobramycin 0.3% ophthalmic solution 1 drops, Eye-Both, QID, # 5 mL, 0 Refill(s), Pharmacy: [facility], 157, cm, 04/22/22 20:46:00 EST, Height/Length Dosing, 122.47, kg, 04/22/22 20:46:00 EST, Weight Dosing Start Date: 06/13/22 Stop Date: 06/20/22 Status: Ordered torsemide 20 mg oral tablet 20 mg = 1 tab, Oral, Daily, # 90 tab, 4 Refill(s), Pharmacy: [facility], 157, cm, 04/22/22 20:46:00 EST, Height/Length Dosing, 122.47, kg, 04/22/22 20:46:00 EST, Weight Dosing Start Date: 07/04/22 Status: Ordered triamcinolone 0.1% topical cream 1 che, Topical, TID, PRN not specified, Apply to affected areas as needed., # 30 g, 0 Refill(s), Pharmacy: [facility], 155, cm, 09/23/21 4:52:00 [...] List Name Date Basic Metabolic Panel (BMP) 12/04/22 Most recent to oldest [Reference Range]: 1 BUN [7-18 mg/dL] 19 mg/dL *HI* (12/04/22 11:58 AM) Glucose Level [74-106 mg/dL] 126 mg/dL *HI* (12/04/22 11:58 AM) Potassium Level [3.5-5.1 mmol/L] 3.9 mmo l/L (12/04/22 11:58 AM) Sodium Level [136-145 mmol/L] 140 mmol/L (12/04/22 11:58 AM) Calcium Level [8.5-10.1 mg/dL] 9.3 mg/dL (12/04/22 11:58 AM) CO2 [21-32 mmol/L] 32 mmol/L (12/04/22 11:58 AM) eGFR Non-AA [>=60] 76 (12/04/22 11:58 AM) eGFR AA [>=60] 76 (12/04/22 11:58 AM) Chloride Level [98-107 mmol/L] 101 mmol/ L (12/04/22 11:58 AM) Creatinine Level [0.55-1.02 mg/dL] 0.82 mg/dL (12/04/22 11:58 AM) Social History Social History Type Response Tobacco Former tobacco user Tobacco Use:. Sex Female Patient Care team information Care Team Personnel Name: Dandy Driscoll PROFESSOR OF FORESTRY Position: Physician Member Role: Informed Provider Address: Address: [id number] [place] [address] Care Team Related Persons Name: ASH QUNITANA
--- OUTSIDE RECORDS SUMMARY | 2024-02-27 19:31 | XMS_ITS | Continuity of Care Document ---
Author Organization 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 Allergies, Adverse Reactions, Alerts Substance Reaction Severity Status ALCOHOL 1 Moderate Active meperidine Bewilderment Unknown Active azithromycin Swollen face Unknown Active penicillins Swelling Other Unknown Active tetanus toxoids Unknown Active 1Rubbing Assessment and Plan Future Appointments Immunizations Given and Recorded Vaccine Date Status Refusal Reason pneumococcal 23-polyvalent vaccine 1 09/23/21 Bc rded pneumococcal 23-polyvalent vaccine 02/13/08 Record ed [id number]-1273 (booster only) vacc 09/23/21 Recorded [id number]-JsQ-4-mRNA-1273 (booster only) vacc 07/09/20 Recorded influenza, unspecified [...] rded zoster vaccine live 01/22/13 Recorded Novel [id number], all formulation 04/29/09 Recorded pneumococcal 7-valent vaccine 04/09/00 Recorded Not Given Vaccine Date Status Refusal Reason Td(adult) unspecified formulation 3 04/27/20 Not G iven Patient Refuses 1Result Comment: [facility] 2Result Comment: 1st vaccine 3Result Comment: Last Modified by Azra Dykes, Business Performance Manager 04-27-2020, 11:54 Medications !-DuoNeb 0.5 mg-2.5 mg/3 mL inhalation solution 3 mL, NEB, QID, # 120 EA, 0 Refill(s), Pharmacy: [facility] #[facility], 157, cm, 04/21/22 4:43:00 EST, Height/Length [...] BID, # 28 EA, 4 Refill(s), Pharmacy: [facility], 155, cm, 09/23/21 4:52:00 EDT, Height/Length Dosing, 125, kg, 09/23/21 4:52:00 EDT, Weight Dosing Start Date: 11/24/21 Status: Ordered Albuterol (Eqv-ProAir HFA) 90 mcg/inh inhalation aerosol 180 mcg 2 puffs, Inhale, every 4 hr, PRN as needed for wheezing, # 8.5 g, 2 Refill(s), Pharmacy: [facility], 155, cm, 09/23/21 4:52:00 EDT, Height/Length Dosing, 125, kg, 09/23/21 4:52:00 EDT, Weight Dosing Start Date: 11/21/21 Status: Ordered albuterol 2.5 mg/3 mL (0.083%) inhalation solution 2.5 mg = 3 mL, NEB, every 4 hr, PRN as needed for wheezing, # 180 mL, 3 Refill(s), Pharmacy: [facility], 157, cm, 04/21/22 4:43:00 EST, Height/Length [...] cough, # 42 cap, 0 Refill(s), Pharmacy: [facility] #[facility], 157, cm, 04/17/22 0:36:00 EST, Height/Length Dosing, 124.8, kg, 04/17/22 0:36:00 EST, WeightDosing Start Date: 04/19/22 Stop Date: 05/03/22 Status: Ordered buPROPion 300 mg/24 hours (XL) oral tablet, extended release 300 mg = 1 tab, Oral, Daily, # 90 tab, 2 Refill(s), Pharmacy: [facility], 155, cm, 09/23/21 [...] Daily, # 90 tab, 2 Refill(s), Pharmacy: [facility], 155, cm, 09/23/21 4:52:00 EDT, Height/Length Dosing, 125, kg, 09/23/21 4:52:00 EDT, Weight Dosing Start Date: 11/21/21 Status: Ordered loperamide 2 mg oral capsule 2 mg = 1 cap, Oral, TID, PRN as needed for loose stool, # 270 cap, 1 Refill(s), Pharmacy: [facility], 155, cm, 09/23/21 4:52:00 EDT, Height/Length Dosing, 125, kg, 09/23/21 4:52:00 EDT, Weight Dosing Start Date: 11/21/21 Status: Ordered naproxen 500 mg oral tablet 500 mg = 1 tab, Oral, BID, # 60 tab, 1 Refill(s), Pharmacy: [facility], 155,cm, 09/23/21 4:52:00 EDT, Height/Length Dosing, 125, kg, 09/23/21 4:52:00 EDT, Weight Dosing Start Date: 11/21/21 Status: Ordered Nyamyc 100,000 units/g topical powder See Instructions, Topical BID as needed for yeast, # 30 g, 0 Refill(s), Pharmacy: [facility], 155, cm, 09/23/21 4:52:00 EDT, Height/Length Dosing, 125, kg, 09/23/21 4:52:00 EDT, Weight Dosing Start Date: 11/21/21 Status: Ordered torsemide 10 mg oral tablet 10 mg = 1 tab, Oral, Daily, # 30 tab, 0 Refill(s), Pharmacy: [facility] #[facility], 157, cm, 04/17/22 0:36:00 EST, Height/Length Dosing, 124.8, kg, 04/17/22 0:36:00 EST, Weight Dosing Start Date: 04/19/22 Status: Ordered triamcinolone 0.1% topical cream 1 che, Topical, TID, PRN not specified, Apply to affected areas as needed., # 30 g, 0 Refill(s), Pharmacy: [facility], 155, cm, 09/23/21 [...] a Covid PCR test this afternoon. 3per [facility] ortho note Procedures Procedure Date Related Diagnosis [...] in 2013 Results Laboratory List Name Date Hemoglobin A1c 05/02/22 Renal Function Panel 05/02/22 Most recent to oldest [Reference Range]: 1 BUN [7-18 mg/dL] 20 mg/dL *HI* (05/02/22 4:23 PM) Glucose Level [74-106 mg/dL] 97 mg/dL (05/02/22 4:23 PM) Potassium Level [3.5-5.1 mmol/L] 4.4 mmo l/L (05/02/22 4:23 PM) Sodium Level [136-145 mmol/L] 139 mmol/L (05/02/22 4:23 PM) Calcium Level [8.5-10.1 mg/dL] 9.3 mg/dL (05/02/22 4:23 PM) Phosphorus Level [2.6-4.7 mg/dL] 3.3 mg/ dL (05/02/22 4:23 PM) Albumin Level [3.4-5.0 g/dL] 3.2 g/dL *LOW* (05/02/22 4:23 PM) CO2 [21-32 mmol/L] 30 mmol/L (05/02/22 4:23 PM) eGFR Non-AA [>=60] 78 (05/02/22 4:23 PM) eGFR AA [>=60] 78 (05/02/22 4:23 PM) Hemoglobin A1c [4.0-6.0 %] 6.6 % *HI* (05/02/22 4:23 PM) Chloride Level [98-107 mmol/L] 102 mmol/ L (05/02/22 4:23 PM) Creatinine Level [0.55-1.02 mg/dL] 0.81 mg/dL (05/02/22 4:23 PM) Social History Social History Type Response Tobacco Former tobacco user Tobacco Use:. Sex Female Patient Care team information Personnel Name: Dandy Driscoll NP Address: Address: [address]
--- OUTSIDE RECORDS SUMMARY | 2024-02-27 19:31 | XMS_ITS | Continuity of Care Document ---
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 Allergies, Adverse Reactions, Alerts Substance Reaction Severity Status ALCOHOL 1 Moderate Active meperidine Bewilderment Unknown Active azithromycin Swollen face Unknown Active penicillins Swelling Other Unknown Active tetanus toxoids Unknown Active Tape 2 Unknown Severe Active 1Rubbing 2Outside Source Comment: Rips the skin off when removing Assessment and Plan Future Appointments Immunizations Given [...] rded pneumococcal 23-polyvalent vaccine 02/13/08 Record ed [id number]-4-mRNA-1273 (booster only) vacc 09/23/21 Recorded [id number]-GpW-4-mRNA-1273 (booster only) vacc 07/09/20 Recorded influenza, unspecified formulation 01/07/21 Record ed influenza, unspecified formulation 01/02/20 Record ed influenza, unspecified formulation 02/06/19 Record ed influenza, unspecified formulation 01/22/18 Record ed SARS-CoV-2 (COVID-19) mRNA-1273 vaccine 07/09/20 R ecorded SARS-CoV-2 (COVID-19) mRNA-1273 vaccine 06/11/20 R ecorded SARS-CoV-2 (COVID-19) mRNA-1273 vaccine 3 06/11/20 Recorded pneumococcal 13-valent conjugate vaccine 02/06/19 Recorded zoster vaccine live 01/22/13 Recorded Novel [id number], all formulation 04/29/09 Recorded pneumococcal 7-valent vaccine 04/09/00 Recorded Not Given Vaccine Date Status Refusal Reason Td(adult) unspecified formulation 4 04/27/20 Not G iven Patient Refuses 1Result Comment: Given at the pharmacy-see record 2Result Comment: [facility] 3Result Comment: 1st vaccine 4Result Comment: Last Modified by Azra Dykes, Clinching Machine Operator 04-27-2020, 11:54 Medications !-DuoNeb 0.5 mg-2.5 mg/3 mL inhalation solution 3 mL, NEB, QID, # 120 EA, 0 Refill(s), Pharmacy: [facility], 157, cm, 04/21/22 4:43:00 EST, Height/Length [...] BID, # 28 EA, 4 Refill(s), Pharmacy: [facility] #58, 157, cm, 04/22/22 20:46:00 EST, Height/Length Dosing, 122.47, kg, 04/22/22 20:46:00 EST, Weight Dosing Start Date: 05/11/22 Status: Ordered Albuterol (Eqv-ProAir HFA) 90 mcg/inh inhalation aerosol 180 mcg 2 puffs, Inhale, every 4 hr, PRN as needed for wheezing, # 8.5 g, 2 Refill(s), Pharmacy: [facility], 155, cm, 09/23/21 4:52:00 EDT, Height/Length Dosing, 125, kg, 09/23/21 4:52:00 EDT, Weight Dosing Start Date: 11/21/21 Status: Ordered albuterol 2.5 mg/3 mL (0.083%) inhalation solution 2.5 mg = 3 mL, NEB, every 4 hr, PRN as needed for wheezing, # 180 mL, 3 Refill(s), Pharmacy: [facility] #58, 157, cm, 04/21/22 4:43:00 EST, Height/Length [...] Daily, # 90 tab, 2 Refill(s), Pharmacy: [facility], 155, cm, 09/23/21 4:52:00 EDT, Height/Length [...] Daily, # 30 tab, 2 Refill(s), Pharmacy: [facility] #58, 157, cm, 04/22/22 20:46:00 EST, Height/Length Dosing, 122.47, kg, 04/22/22 20:46:00 EST, Weight Dosing Start Date: 06/13/22 Status: Ordered lisinopril 10 mg oral tablet 10 mg = 1 tab, Oral, Daily, # 90 tab, 2 Refill(s), Pharmacy: [facility], 155, cm, 09/23/21 4:52:00 EDT, Height/Length Dosing, 125, kg, 09/23/21 4:52:00 EDT, Weight Dosing Start Date: 11/21/21 Status: Ordered loperamide 2 mg oral capsule 2 mg = 1 cap, Oral, TID, PRN as needed for loose stool, # 270 cap, 1 Refill(s), Pharmacy: [facility], 155, cm, 09/23/21 4:52:00 EDT, Height/Length Dosing, 125, kg, 09/23/21 4:52:00 EDT, Weight Dosing Start Date: 11/21/21 Status: Ordered naproxen 500 mg oral tablet 500 mg = 1 tab, Oral, BID, # 60 tab, 1 Refill(s), Pharmacy: [facility], 155,cm, 09/23/21 4:52:00 EDT, Height/Length Dosing, 125, kg, 09/23/21 4:52:00 EDT, Weight Dosing Start Date: 11/21/21 Status: Ordered Nyamyc 100,000 units/g topical powder See Instructions, Topical BID as needed for yeast, # 30 g, 0 Refill(s), Pharmacy: [facility], 155, cm, 09/23/21 4:52:00 EDT, Height/Length Dosing, 125, kg, 09/23/21 4:52:00 EDT, Weight Dosing Start Date: 11/21/21 Status: Ordered tobramycin 0.3% ophthalmic solution 1 drops, Eye-Both, QID, # 5 mL, 0 Refill(s), Pharmacy: [facility] #58, 157, cm, 04/22/22 20:46:00 EST, Height/Length Dosing, 122.47, kg, 04/22/22 20:46:00 EST, Weight Dosing Start Date: 06/13/22 Stop Date: 06/20/22 Status: Ordered triamcinolone 0.1% topical cream 1 che, Topical, TID, PRN not specified, Apply to affected areas as needed., # 30 g, 0 Refill(s), Pharmacy: [facility], 155, cm, 09/23/21 4:52:00 EDT, Height/Length [...] a Covid PCR test this afternoon. 3per [facility] ortho note Procedures Procedure Date Related Diagnosis [...] colon polypx2. 2Normal. 3Revision in 2012 Results Laboratory List Name Date Basic Metabolic Panel (BMP) 06/13/22 Most recent to oldest [Reference Range]: 1 BUN [7-18 mg/dL] 22 mg/dL *HI* (06/13/22 10:20 AM) Glucose Level [74-106 mg/dL] 159 mg/dL *HI* (06/13/22 10:20 AM) Potassium Level [3.5-5.1 mmol/L] 3.9 mmo l/L (06/13/22 10:20 AM) Sodium Level [136-145 mmol/L] 139 mmol/L (06/13/22 10:20 AM) Calcium Level [8.5-10.1 mg/dL] 8.8 mg/dL (06/13/22 10:20 AM) CO2 [21-32 mmol/L] 31 mmol/L (06/13/22 10:20 AM) eGFR Non-AA [>=60] 88 (06/13/22 10:20 AM) eGFR AA [>=60] 88 (06/13/22 10:20 AM) Chloride Level [98-107 mmol/L] 102 mmol/ L (06/13/22 10:20 AM) Creatinine Level [0.55-1.02 mg/dL] 0.73 mg/dL (06/13/22 10:20 AM) Social History Social History Type Response Tobacco Former tobacco user Tobacco Use:. Sex Female Patient Care team information Care Team Personnel Name: Dandy Driscoll NP Position: Physician Member Role: Informed Provider Address: Address: [address] [address]- [place] Care Team Related Persons Name: ASH QUINTANA Address: Home
--- OUTSIDE RECORDS SUMMARY | 2024-02-27 19:31 | XMS_ITS | Continuity of Care Document ---
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 DISTRIBUTOR Allergies, Adverse Reactions, Alerts Substance Reaction Severity [...] rded pneumococcal 23-polyvalent vaccine 02/13/08 Record ed [id number]-1273 (booster only) vacc 09/23/21 Recorded [id number]-1-[id number]-1273 (booster only) vacc 07/09/20 Recorded influenza, unspecified formulation 01/07/21 Record ed influenza, unspecified formulation 01/02/20 Record ed influenza, unspecified formulation 02/06/19 Record ed influenza, unspecified formulation 01/22/18 Record ed SARS-CoV-2 (COVID-19) mRNA-1273 vaccine 07/09/20 R ecorded SARS-CoV-2 (COVID-19) mRNA-1273 vaccine 06/11/20 R ecorded SARS-CoV-2 (COVID-19) mRNA-1273 vaccine 3 06/11/20 Recorded pneumococcal 13-valent conjugate vaccine 02/06/19 Recorded zoster vaccine live 01/22/13 Recorded Novel [id number], all formulation 04/29/09 Recorded pneumococcal 7-valent vaccine 04/09/00 Recorded Not Given Vaccine Date Status Refusal Reason Td(adult) unspecified formulation 4 04/27/20 Not G iven Patient Refuses 1Result Comment: Given at the pharmacy-see record 2Result Comment: [facility] 3Result Comment: 1st vaccine 4Result Comment: Last Modified by Azra Dykes, Community Relations Representative 04-27-2020, 11:54 Medications !-DuoNeb 0.5 mg-2.5 mg/3 mL inhalation solution 3 mL, NEB, QID, # 120 EA, 0 Refill(s), Pharmacy: [facility], 157, cm, 04/21/22 4:43:00 EST, Height/Length [...] hr, # 240 cap, 0 Refill(s), Pharmacy: [facility], 157, cm, 02/27/23 9:53:00 EST, Height, 118.55, kg, 03/02/23 12:53:00 EST, Weight Dosing Start Date: 03/02/23 Status: Ordered Acidophilus oral capsule 0 Refill(s) Start Date: 10/27/21 Status: Ordered Advair Diskus 500 mcg-50 mcg inhalation powder 1 puffs, Inhale, BID, # 28 EA, 4 Refill(s), Pharmacy: [facility], 157, cm, 04/22/22 20:46:00 EST, Height/Length Dosing, 122.47, kg, 04/22/22 20:46:00 EST, Weight Dosing Start Date: 05/11/22 Status: Ordered Albuterol (Eqv-ProAir HFA) 90 mcg/inh inhalation aerosol 180 mcg 2 puffs, Inhale, every 4 hr, PRN as needed for wheezing, # 8.5 g, 2 Refill(s), Pharmacy: [facility], 155, cm, 09/23/21 4:52:00 EDT, Height/Length Dosing, 125, kg, 09/23/21 4:52:00 EDT, Weight Dosing Start Date: 11/21/21 Status: Ordered albuterol 2.5 mg/3 mL (0.083%) inhalation solution 2.5 mg = 3 mL, NEB, every 4 hr, PRN as needed for wheezing, # 180 mL, 3 Refill(s), Pharmacy: [facility], 157, cm, 04/21/22 4:43:00 EST, [...] cough, # 30 cap, 0 Refill(s), Pharmacy: [facility], 157, cm, 03/27/23 9:48:00 EST, Height, 113.15, kg, 05/02/23 15:34:00 EST, Weight Dosing Start Date: 05/02/23 Status: Ordered buPROPion 300 mg/24 hours (XL) oral tablet, extended release 300 mg = 1 tab, Oral, Daily, # 90 tab, 2 Refill(s), Pharmacy: [facility], 155, cm, 09/23/21 4:52:00 EDT, Height/Length Dosing, 125, kg, 09/23/21 4:52:00 EDT, Weight Dosing Start Date: 11/21/21 Status: Ordered cannabidiol See Instructions, CBD Cream 3000 mg; apply as directed., 0 Refill(s) Start Date: 10/27/21 Status: Ordered clindamycin 300 mg oral capsule See Instructions, TAKE 2 CAPSULES BY MOUTH ONCE PRIOR TO DENTAL PROCEDURE, # 2 cap, 0 Refill(s), Pharmacy: [facility], 157, cm, 03/27/23 9:48:00 EST, Height, [...] instructions, # 1 EA, 0 Refill(s), Pharmacy: [facility] Start Date: 12/04/22 Status: Ordered lancets lancets, tests blood sugar once daily, Supply, See instructions, # 100 EA, 3 Refill(s), Pharmacy: [facility] Start Date: 12/04/22 Status: Ordered loperamide 2 mg oral capsule 2 mg = 1 cap, Oral, TID, PRN as needed for loose stool, # 270 cap, 1 Refill(s), Pharmacy: [facility], 155, cm, 09/23/21 4:52:00 EDT, Height/Length Dosing, 125, kg, 09/23/21 4:52:00 EDT, Weight Dosing Start Date: 11/21/21 Status: Ordered Myrbetriq 25 mg oral tablet, extended release 25 mg = 1 tab, Oral, Daily, do not crush or chew; total daily dose 75 mg (50 + 25), # 90 tab, 3 Refill(s), Pharmacy: [facility], 157, cm, 02/27/23 9:53:00 EST, Height, 118.55, kg, 03/02/23 12:53:00 EST, Weight Dosing Start Date: 03/08/23 Stop Date: 03/02/24 Status: Ordered Myrbetriq 50 mg oral tablet, extended release 50 mg = 1 tab, Oral, Daily, do not crush or chew, # 90 tab, 3 Refill(s), Pharmacy: [facility], 157, cm, 02/27/23 9:53:00 EST, Height, 118.55, kg, 03/02/23 12:53:00 EST, Weight Dosing Start Date: 03/08/23 Stop Date: 03/02/24 Status: Ordered naproxen 500 mg oral tablet 500 mg = 1 tab, Oral, BID, # 60 tab, 1 Refill(s), Pharmacy: [facility], 155,cm, 09/23/21 4:52:00 EDT, Height/Length Dosing, 125, kg, 09/23/21 4:52:00 EDT, Weight Dosing Start Date: 11/21/21 Status: Ordered Nyamyc 100,000 units/g topical powder See Instructions, Topical BID as needed for yeast, # 30 g, 0 Refill(s), Pharmacy: [facility], 155, cm, 09/23/21 4:52:00 EDT, Height/Length Dosing, 125, kg, 09/23/21 4:52:00 EDT, Weight Dosing Start Date: 11/21/21 Status: Ordered ONETOUCH ULTRA2 GLUCOSE SYST ONETOUCH ULTRA2 GLUCOSE SYST, See Instructions, USE TO TEST GLUCOSE LEVELS ONCE DAILY, # 1 EA, 0 Refill(s), Pharmacy: [facility], 157, cm, 02/14/23 11:37:00 EST, Height, [...] instructions, # 100 EA, 3 Refill(s), Pharmacy: [facility] Start Date: 12/04/22 Status: Ordered tobramycin 0.3% ophthalmic solution 1 drops, Eye-Both, QID, # 5 mL, 0 Refill(s), Pharmacy: [facility], 157, cm, 04/22/22 20:46:00 EST, Height/Length Dosing, 122.47, kg, 04/22/22 20:46:00 EST, Weight Dosing Start Date: 06/13/22 Stop Date: 06/20/22 Status: Ordered torsemide 20 mg oral tablet 20 mg = 1 tab, Oral, Daily, # 90 tab, 4 Refill(s), Pharmacy: [facility], 157, cm, 04/22/22 20:46:00 EST, Height/Length Dosing, 122.47, kg, 04/22/22 20:46:00 EST, Weight Dosing Start Date: 07/04/22 Status: Ordered triamcinolone 0.1% topical cream 1 che, Topical, TID, PRN not specified, Apply to affected areas as needed., # 30 g, 0 Refill(s), Pharmacy: [facility], 155, cm, 09/23/21 4:52:00 EDT, Height/Length [...] a Covid PCR test this afternoon. 3per [facility]o note Procedures Procedure Date Related Diagnosis [...] Negative (No HPV done) 3Normal. 4Revision in 2013 Results Laboratory List Name Date Comprehensive Metabolic Panel (CMP) Hemoglobin A1c 05/14/23 Magnesium Level 05/14/23 Most recent to oldest [Reference Range]: 1 BUN [7-18 mg/dL] 14 mg/dL (05/14/23 12:48 PM) Glucose Level [74-106 mg/dL] 104 mg/dL (05/14/23 12:48 PM) Potassium Level [3.5-5.1 mmol/L] 3.7 mmo l/L (05/14/23 12:48 PM) AST [15-37 unit/L] 13 unit/L *LOW* (05/14/23 12:48 PM) ALT [14-59 unit/L] 16 unit/L (05/14/23 12:48 PM) Sodium Level [136-145 mmol/L] 142 mmol/L (05/14/23 12:48 PM) Calcium Level [8.5-10.1 mg/dL] 9.2 mg/dL (05/14/23 12:48 PM) Albumin Level [3.4-5.0 g/dL] 3.4 g/dL (05/14/23 12:48 PM) Protein Total [6.4-8.2 g/dL] 7.3 g/dL (05/14/23 12:48 PM) Magnesium Level [1.8-2.4 mg/dL] 1.9 mg/d L (05/14/23 12:48 PM) Bilirubin Total [0.2-1.0 mg/dL] 0.6 mg/d L (05/14/23 12:48 PM) Alk Phos [46-146 unit/L] 70 unit/L (05/14/23 12:48 PM) CO2 [21-32 mmol/L] 31 mmol/L (05/14/23 12:48 PM) eGFR Non-AA [>=60] 70 (05/14/23 12:48 PM) eGFR AA [>=60] 70 (05/14/23 12:48 PM) Hemoglobin A1c [4.0-5.6 %] 6.2 % 1 *HI* (05/14/23 12:48 PM) Chloride Level [98-107 mmol/L] 104 mmol/ L (05/14/23 12:48 PM) Creatinine Level [0.55-1.02 mg/dL] 0.88 mg/dL (05/14/23 12:48 PM) 1Interpretive Data: New test method effective 05-08-23. Establishment of new HA1c baseline is recommended. The following A1c interpretive data reflect the 2017 [place] [employer] (ADA) guidelinesand will be reported with each A1c result: Normal: <5.7% Prediabetes: 5.7 - 6.4% Diagnostic for diabetes (if confirmed): ???6.5% Social History Social History Type Response Tobacco Former tobacco user Tobacco Use:. Sex Female Patient Care team information Care Team Personnel Name: Dandy Driscoll POWER DISTRIBUTOR Position: Physician Member Role: Informed Provider Address: Address: [address] Name: Kinsey Patiño Position: Ambulatory - RN/ED TRANSPORTER (Franck) Member Role: Salary Manager Care Team Related Persons Name: ASH QUINTANA
--- OUTSIDE RECORDS SUMMARY | 2024-02-27 19:31 | XMS_ITS | Continuity of Care Document ---
Author Organization [facility] Address [address] [place] [address] Care Team Providers Care Can Worker Name Role Phone DriscollDandy Carola Primary Care Physician Encounter [facility] Date(s): 01/25/23 - 01/25/[address] [address] Encounter Diagnosis Recurrent urinary tract infection(Discharge Diagnosis) - 01/25/23 Discharge Disposition: Home or Self Care Attending [...] rded pneumococcal 23-polyvalent vaccine 02/13/08 Record ed [id number] (booster only) vacc 09/23/21 Recorded [id number]-1273 (booster only) vacc 07/09/20 Recorded influenza, unspecified formulation 01/07/21 Record ed influenza, unspecified formulation 01/02/20 Record ed influenza, unspecified formulation 02/06/19 Record ed influenza, unspecified formulation 01/22/18 Record ed SARS-CoV-2 (COVID-19) mRNA-1273 vaccine 07/09/20 R ecorded SARS-CoV-2 (COVID-19) mRNA-1273 vaccine 06/11/20 R ecorded SARS-CoV-2 (COVID-19) mRNA-1273 vaccine 3 06/11/20 Recorded pneumococcal 13-valent conjugate vaccine 02/06/19 Recorded zoster vaccine live 01/22/13 Recorded Novel [id number], all formulation 04/29/09 Recorded pneumococcal 7-valent vaccine 04/09/00 Recorded Not Given Vaccine Date Status Refusal Reason Td(adult) unspecified formulation 4 04/27/20 Not G iven Patient Refuses 1Result Comment: Given at the pharmacy-see record 2Result Comment[facility] 3Result Comment: 1st vaccine 4Result Comment: Last Modified by Arza Dykes, Log Sawyer 04-27-2020, 11:54 Medications !-DuoNeb 0.5 mg-2.5 mg/3 mL inhalation solution 3 mL, NEB, QID, # 120 EA, 0 Refill(s), Pharmacy: [facility], 157, cm, 04/21/22 4:43:00 EST, [...] BID, # 28 EA, 4 Refill(s), Pharmacy: [facility], 157, cm, 04/22/22 20:46:00 EST, Height/Length [...] wheezing, # 180 mL, 3 Refill(s), Pharmacy: [facility], 157, cm, 04/21/22 4:43:00 EST, Height/Length [...] instructions, # 1 EA, 0 Refill(s), Pharmacy: [facility] Start Date: 12/04/22 Status: Ordered Jardiance 10 mg oral tablet 10 mg = 1 tab, Oral, every morning, # 90 tab, 2 Refill(s), 157, cm, 07/12/22 4:56:00 EDT, Height/Length Dosing, 125.7, kg, 07/12/22 4:56:00 EDT, Weight Dosing Start Date: 10/18/22 Status: Ordered lancets lancets, tests blood sugar once daily, Supply, See instructions, # 100 EA, 3 Refill(s), Pharmacy: [facility] Start Date: 12/04/22 Status: Ordered loperamide [...] sites, # 1 EA, 0 Refill(s), Pharmacy: [facility], 157, cm, 07/12/22 4:56:00 EDT, Height/Length Dosing, 125.7, kg, 07/12/22 4:56:00 EDT, Weight Dosing Start Date: 12/04/22 Status: Ordered prednisoLONE acetate 0.12% ophthalmic suspension 0 Refill(s) Start Date: 10/18/22 Status: Ordered Sterile Lubricating Tears ophthalmic solution 0 Refill(s) Start Date: 10/18/22 Status: Ordered test strips test strips, test blood sugar daily, Supply, See instructions, # 100 EA, 3 Refill(s), Pharmacy: [facility] Start Date: 12/04/22 Status: Ordered tobramycin 0.3% ophthalmic solution 1 drops, Eye-Both, QID, # 5 mL, 0 Refill(s), Pharmacy: [facility], 157, cm, 04/22/22 20:46:00 EST, Height/Length Dosing, 122.47, kg, 04/22/22 20:46:00 EST, Weight Dosing Start Date: 06/13/22 Stop Date: 06/20/22 Status: Ordered torsemide 20 mg oral tablet 20 mg = 1 tab, Oral, Daily, # 90 tab, 4 Refill(s), Pharmacy: [facility], 157, cm, 04/22/22 20:46:00 EST, Height/Length [...] a Covid PCR test this afternoon. 3per [facility] ortho note Procedures Procedure Date Related Diagnosis [...] information Care Team Personnel Name: Dandy Driscoll SENIOR PARALEGAL Position: Physician Member Role: Informed Provider Address: Address: [address] [address]- [place] Name: Kinsey Patiño Position: Ambulatory - RN/TAPE TRANSFERRER (Franck) Member Role: Speech Instructor Care Team Related Persons Name: ASH QUINTANA
--- OUTSIDE RECORDS SUMMARY | 2024-02-27 19:31 | XMS_ITS | Continuity of Care Document ---
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 recent study We will plan a follow-up office visit to coincide, for review of results I35.0: Nonrheumatic aortic (valve) stenosis Return to Office JANEEN DRISCOLL NP for AWV 40 at [facility] on 04/29/2021 at 10:40 AM to see Carlos Hoang MD for Consult 45 at [facility] Cardiology on or around 01/12/2023 to see PEEWEE MEJIA MD at [facility] Surgical on or around 10/26/2023 Electronically Signed on 05/31/22 07:54 AM Hilda Delaney Patient Care team information Care Team Personnel Name: Janeen Driscoll NP Position: Physician Member Role: Informed Provider Address: Address: [address] [address]- Care Team Related Persons Name: ASH QUINTANA Address: Home
--- OUTSIDE RECORDS SUMMARY | 2024-02-27 19:31 | XMS_ITS | Continuity of Care Document ---
Author Organization [facility] Address [address] [place] [address] Care Team Providers Care Beef Trimmer Name Role Phone Dandy Driscoll Primary Care Physician Encounter [place] Date(s): 03/29/22 - 03/29/[address] [phone] [place] Encounter Diagnosis Screening for malignant neoplasm of breast(Discharge Diagnosis) - 03/29/22 Discharge Disposition: Home or Self Care Attending Physician: Dandy Driscoll NP Admitting Physician: Dandy Driscoll NP Referring Physician: Dandy Driscoll AUDIT SPECIALIST Allergies, Adverse Reactions, Alerts Substance Reaction Severity Status ALCOHOL 1 Unknown Active meperidine Bewilderment Unknown Active azithromycin Swollen face Unknown Active penicillins Swelling Other Unknown Active tetanus toxoids Unknown Active 1Rubbing Assessment and Plan Future Appointments Immunizations Given and Recorded Vaccine Date Status Refusal Reason pneumococcal 23-polyvalent vaccine 1 09/23/21 Bc rded pneumococcal 23-polyvalent vaccine 02/13/08 Record ed KWMO-GcN-9-mRNA-1273 (booster only) vacc 09/23/21 Recorded RBCT-JtM-9-mRNA-1273 (booster only) vacc 07/09/20 Recorded influenza, unspecified [...] rded zoster vaccine live 01/22/13 Recorded Novel [id number]-[id number], all formulation 04/29/09 Recorded pneumococcal 7-valent vaccine 04/09/00 Recorded Not Given Vaccine Date Status Refusal Reason Td(adult) unspecified formulation 3 04/27/20 Not G iven Patient Refuses 1Result Comment: [facility] 2Result Comment: 1st vaccine 3Result Comment: Last Modified by Azra Dykes, Washer Off 04-27-2020, 11:54 Medications Acidophilus oral capsule 0 [...] 0 Refill(s) Start Date: 10/27/21 Status: Ordered Lasix 20 mg oral tablet 20 mg = 1 tab, Oral, BID, # 60 tab, 0 Refill(s), Pharmacy: [facility], 155, cm, 224:52:00 EDT, Height/Length Dosing, 125, kg, 09/23/21 4:52:00 EDT, Weight Dosing Start Date: 11/14/21 Status: Ordered lisinopril 10 mg oral tablet [...] Weight Dosing Start Date: 11/21/21 Status: Ordered triamcinolone 0.1% topical cream 1 [...] a Covid PCR test this afternoon. 3per [facility] ortho note Procedures Procedure Date Related Diagnosis [...] Personnel Name: Dandy Driscoll NP Address: Address: [address]
--- OUTSIDE RECORDS SUMMARY | 2024-02-27 19:31 | XMS_ITS | Continuity of Care Document ---
Author Organization [facility] Address [address] [place] [address] Care Team Providers Care Air Conditioner Installer Helper Name Role Phone Dandy Driscoll Primary Care Physician [phone] Encounter [place] Date(s): 05/11/22 - 05/11/[address] [address] Discharge Disposition: Home or Self Care Attending Physician: Dandy Driscoll NP Admitting Physician: Dandy Driscoll NP Referring Physician: Dandy Driscoll CREATIVE WRITING PROFESSOR Allergies, Adverse Reactions, Alerts Substance Reaction Severity [...] rded pneumococcal 23-polyvalent vaccine 02/13/08 Record ed CYYQ-KcY-3-mRNA-1273 (booster only) vacc 09/23/21 Recorded CTUD-CrT-7-mRNA-1273 (booster only) vacc 07/09/20 Recorded influenza, unspecified [...] rded zoster vaccine live 01/22/13 Recorded Novel [id number]-B7I7-49, all formulation 04/29/09 Recorded pneumococcal 7-valent vaccine 04/09/00 Recorded Not Given Vaccine Date Status Refusal Reason Td(adult) unspecified formulation 3 04/27/20 Not G emilyen Patient Refuses 1Result Comment: [facility] 2Result Comment: 1st vaccine 3Result Comment: Last Modified by Azra Dykes, Mixer Attendant 04-27-2020, 11:54 Medications !-DuoNeb 0.5 mg-2.5 mg/3 mL inhalation solution 3 mL, NEB, QID, # 120 EA, 0 Refill(s), Pharmacy: [facility], 157, cm, 04/21/22 4:43:00 EST, Height/Length [...] BID, # 28 EA, 4 Refill(s), Pharmacy: [facility], 157, cm, 04/22/22 20:46:00 EST, Height/Length Dosing, 122.47, kg, 04/22/22 20:46:00 EST, Weight Dosing Start Date: 05/11/22 Status: Ordered Albuterol (Eqv-ProAir HFA) 90 mcg/inh inhalation aerosol 180 mcg 2 puffs, Inhale, every 4 hr, PRN as needed for wheezing, # 8.5 g, 2 Refill(s), Pharmacy: [facility], 155, cm, 09/23/21 4:52:00 EDT, Height/Length Dosing, 125, kg, 09/23/21 4:52:00 EDT, Weight Dosing Start Date: 11/21/21 Status: Ordered albuterol 2.5 mg/3 mL (0.083%) inhalation solution 2.5 mg = 3 mL, NEB, every 4 hr, PRN as needed for wheezing, # 180 mL, 3 Refill(s), Pharmacy: [facility], 157, cm, 04/21/22 4:43:00 EST, Height/Length [...] cough, # 42 cap, 0 Refill(s), Pharmacy: [facility], 157, cm, 04/17/22 0:36:00 EST, Height/Length Dosing, 124.8, kg, 04/17/22 0:36:00 EST, WeightDosing Start Date: 04/19/22 Stop Date: 05/03/22 Status: Ordered buPROPion 300 mg/24 hours (XL) oral tablet, extended release 300 mg = 1 tab, Oral, Daily, # 90 tab, 2 Refill(s), Pharmacy: [facility], 155, cm, 09/23/21 4:52:00 EDT, [...] 2 Refill(s), Pharmacy: [facility], 155, cm, 09/23/21 4:52:00 EDT, Height/Length Dosing, 125, kg, 09/23/21 4:52:00 EDT, Weight Dosing Start Date: 11/21/21 Status: Ordered loperamide 2 mg oral capsule 2 mg = 1 cap, Oral, TID, PRN as needed for loose stool, # 270 cap, 1 Refill(s), Pharmacy: [facility], 155, cm, 09/23/21 4:52:00 EDT, Height/Length Dosing, 125, kg, 09/23/21 4:52:00 EDT, Weight Dosing Start Date: 11/21/21 Status: Ordered naproxen 500 mg oral tablet 500 mg = 1 tab, Oral, BID, # 60 tab, 1 Refill(s), Pharmacy: [facility], 155,cm, 09/23/21 4:52:00 EDT, Height/Length Dosing, 125, kg, 09/23/21 4:52:00 EDT, Weight Dosing Start Date: 11/21/21 Status: Ordered Nyamyc 100,000 units/g topical powder See Instructions, Topical BID as needed for yeast, # 30 g, 0 Refill(s), Pharmacy: [facility], 155, cm, 09/23/21 4:52:00 EDT, Height/Length Dosing, 125, kg, 09/23/21 4:52:00 EDT, Weight Dosing Start Date: 11/21/21 Status: Ordered triamcinolone 0.1% topical cream 1 che, Topical, TID, PRN not specified, Apply to affected areas as needed., # 30 g, 0 Refill(s), Pharmacy: [facility], 155, cm, 09/23/21 4:52:00 EDT, [...] PCR test this afternoon. 3per [facility] [place] Procedures Procedure Date Related Diagnosis [...] in 2012 Results Laboratory List Name Date Renal Function Panel 05/11/22 Most recent to oldest [Reference Range]: 1 BUN [7-18 mg/dL] 21 mg/dL *HI* (05/11/22 12:01 PM) Glucose Level [74-106 mg/dL] 127 mg/dL *HI* (05/11/22 12: PM) Potassium Level [3.5-5.1 mmol/L] 3.8 mmo l/L (05/11/22 12:01 PM) Sodium Level [136-145 mmol/L] 140 mmol/L (05/11/22 12: PM) Calcium Level [8.5-10.1 mg/dL] 9.0 mg/dL (05/11/22 12: PM) Phosphorus Level [2.6-4.7 mg/dL] 3.2 mg/ dL (05/11/22 12:01 PM) Albumin Level [3.4-5.0 g/dL] 3.3 g/dL *LOW* (05/11/22 12: PM) CO2 [21-32 mmol/L] 33 mmol/L *HI* (05/11/22 12: PM) eGFR Non-AA [>=60] 63 (05/11/22 12:01 PM) eGFR AA [>=60] 63 (05/11/22 12:01 PM) Chloride Level [98-107 mmol/L] 103 mmol/ L (05/11/22 12:01 PM) Creatinine Level [0.55-1.02 mg/dL] 0.96 mg/dL (05/11/22 12:01 PM) Social History Social History Type Response Tobacco Former tobacco user Tobacco Use:. Sex Female Patient Care team information Personnel Name: Dandy Driscoll NP Address: Address: [address]
--- OUTSIDE RECORDS SUMMARY | 2024-02-27 19:31 | XMS_ITS | Continuity of Care Document ---
Author Organization [facility] Address [address] [place] [address] Care Team Providers Care Clinical Immunologist Name Role Phone Dandy Driscoll Primary Care Physician Encounter [place] Date(s): 01/28/22 - 01/28/[address] [address] Discharge Disposition: Home or Self Care Attending Physician: Janette Guardado Admitting Physician: Janette Guardado Allergies, Adverse Reactions, Alerts Substance Reaction Severity Status ALCOHOL 1 Unknown Active meperidine Bewilderment Unknown Active azithromycin Swollen face Unknown Active penicillins Swelling Other Unknown Active tetanus toxoids Unknown Active 1Rubbing Assessment and Plan Diagnostic Tests Pending * Urine Culture 01/28/22 Future Scheduled Tests Radiology* MG Mammo Screening Bilateral w/ Otoniel 11/08/21 Immunizations Given and Recorded Vaccine Date Status Refusal Reason pneumococcal 23-polyvalent vaccine 1 09/23/21 Bc rded pneumococcal 23-polyvalent vaccine 02/13/08 Record ed FYOF-AdJ-9-mRNA-1273 (booster only) vacc 09/23/21 Recorded HUZM-LpP-3-mRNA-1273 (booster only) vacc 07/09/20 Recorded influenza, unspecified [...] rded zoster vaccine live 01/22/13 Recorded Novel Slpfsqdso-F1Y3-82, all formulation 04/29/09 Recorded pneumococcal 7-valent vaccine 04/09/00 Recorded Not Given Vaccine Date Status Refusal Reason Td(adult) unspecified formulation 3 04/27/20 Not G iven Patient Refuses 1Result Comment: [facility] 2Result Comment: 1st vaccine 3Result Comment: Last Modified by Azra Dykes, Vessel Builder 04-27-2020, 11:54 Medications Acidophilus oral capsule 0 Refill(s) Start Date: 10/27/21 Status: Ordered Advair Diskus 500 mcg-50 mcg inhalation powder 1 puffs, Inhale, BID, # 28 EA, 4 Refill(s), Pharmacy: [facility], 155, cm, [...] BID, # 60 tab, 0 Refill(s), Pharmacy: [facility], 155, cm, 224:52:00 EDT, Height/Length [...] a Covid PCR test this afternoon. 3per [facility] [place] [...] Personnel Name: Dandy Driscoll NP Address: Address: [address]
--- OUTSIDE RECORDS SUMMARY | 2024-02-27 19:31 | XMS_ITS | Continuity of Care Document ---
Author Organization [facility] Address [address] [place] [address] Care Team Providers Care Supervising Nurse Name Role Phone DriscollDandy Carola Primary Care Physician Encounter [place]CT[place] Date(s): 02/19/23 - 02/19/[address] [address] Discharge Disposition: Home Allergies, Adverse Reactions, Alerts [...] rded pneumococcal 23-polyvalent vaccine 02/13/08 Record ed WQGC-GtD-8-mRNA-1273 (booster only) vacc 09/23/21 Recorded DYYS-JdX-4-mRNA-1273 (booster only) vacc 07/09/20 Recorded influenza, unspecified formulation 01/07/21 Record ed influenza, unspecified formulation 01/02/20 Record ed influenza, unspecified formulation 02/06/19 Record ed influenza, unspecified formulation 01/22/18 Record ed SARS-CoV-2 (COVID-19) mRNA-1273 vaccine 07/09/20 R ecorded SARS-CoV-2 (COVID-19) mRNA-1273 vaccine 06/11/20 R ecorded SARS-CoV-2 (COVID-19) mRNA-1273 vaccine 3 06/11/20 Recorded pneumococcal 13-valent conjugate vaccine 02/06/19 Recorded zoster vaccine live 01/22/13 Recorded Novel Ovwqjiktr-I4Z2-90, all formulation 04/29/09 Recorded pneumococcal 7-valent vaccine 04/09/00 Recorded Not Given Vaccine Date Status Refusal Reason Td(adult) unspecified formulation 4 04/27/20 Not G iven Patient Refuses 1Result Comment: Given at the pharmacy-see record 2Result Comment: [facility] 3Result Comment: 1st vaccine 4Result Comment: Last Modified by Azra Dykes, Senior Foreman 04-27-2020, 11:54 Medications !-DuoNeb 0.5 mg-2.5 mg/3 mL inhalation solution 3 mL, NEB, QID, # 120 EA, 0 Refill(s), Pharmacy: [facility], 157, cm, 04/21/22 4:43:00 EST, Height/Length [...] BID, # 28 EA, 4 Refill(s), Pharmacy: [facility], 157, cm, 04/22/22 20:46:00 EST, Height/Length [...] wheezing, # 180 mL, 3 Refill(s), Pharmacy: [facility], 157, cm, 04/21/22 4:43:00 EST, [...] Status: Ordered clindamycin 300 mg oral capsule 600 mg = 2 cap, Oral, Once, prior to dental procedure, # 2 cap, 0 Refill(s), [facility], cm, 02/14/23 11:37:00 EST, Height, 119.07, kg, 02/14/23 11:38:00 EST, Weight Dosing Start Date: 02/15/23 Status: Ordered Cranberry oral tablet 1 tab, [...] # 1 EA, 0 Refill(s), [facility] Start Date: 12/04/22 Status: Ordered Jardiance 10 mg oral tablet 10 mg = 1 tab, Oral, every morning, # 90 tab, 2 Refill(s), 157, cm, 07/12/22 4:56:00 EDT, Height/Length Dosing, 125.7, kg, 07/12/22 4:56:00 EDT, Weight Dosing Start Date: 10/18/22 Status: Ordered lancets lancets, tests blood sugar once daily, Supply, See instructions, # 100 EA, 3 Refill(s), Pharmacy: [facility] Start Date: 12/04/22 Status: Ordered loperamide [...] sites, # 1 EA, 0 Refill(s), Pharmacy: [facility], 157, cm, 07/12/22 4:56:00 EDT, Height/Length Dosing, 125.7, kg, 07/12/22 4:56:00 EDT, Weight Dosing Start Date: 12/04/22 Status: Ordered prednisoLONE acetate 0.12% ophthalmic suspension 0 Refill(s) Start Date: 10/18/22 Status: Ordered Sterile Lubricating Tears ophthalmic solution 0 Refill(s) Start Date: 10/18/22 Status: Ordered test strips test strips, test blood sugar daily, Supply, See instructions, # 100 EA, 3 Refill(s), Pharmacy: [facility] Start Date: 12/04/22 Status: Ordered tobramycin 0.3% ophthalmic solution 1 drops, Eye-Both, QID, # 5 mL, 0 Refill(s), Pharmacy: [facility], 157, cm, 04/22/22 20:46:00 EST, Height/Length Dosing, 122.47, kg, 04/22/22 20:46:00 EST, Weight Dosing Start Date: 06/13/22 Stop Date: 06/20/22 Status: Ordered torsemide 20 mg oral tablet 20 mg = 1 tab, Oral, Daily, # 90 tab, 4 Refill(s), Pharmacy: [facility], 157, cm, 04/22/22 20:46:00 EST, Height/Length [...] a Covid PCR test this afternoon. 3per [facility] [place] note Procedures Procedure Date Related Diagnosis [...] information Care Team Personnel Name: Dandy Driscoll OFFSET PRINTING PRESSMEN Position: Physician Member Role: Informed Provider Address: Address: [id number] [place] [address] Name: Kinsey Patiño Position: Ambulatory - RN/BINDER CUTTER (Franck) Member Role: Customer Expert Care Team Related Persons Name: ASH QUINTANA
--- OUTSIDE RECORDS SUMMARY | 2024-02-27 19:31 | XMS_ITS | Continuity of Care Document ---
Author Organization [facility] Address [address] [place] [address] Care Team Providers Care Upper Cutter Name Role Phone DriscollDandy Carola Primary Care Physician [phone] Encounter [place]CTY[place] Date(s): 01/08/23 - 01/08/23 [facility] [address] [place] [address] Discharge Disposition: Home Allergies, Adverse Reactions, Alerts [...] rded pneumococcal 23-polyvalent vaccine 02/13/08 Record ed QBJH-TmB-3-mRNA-1273 (booster only) vacc 09/23/21 Recorded VRXW-AfM-7-mRNA-1273 (booster only) vacc 07/09/20 Recorded influenza, unspecified formulation 01/07/21 Record ed influenza, unspecified formulation 01/02/20 Record ed influenza, unspecified formulation 02/06/19 Record ed influenza, unspecified formulation 01/22/18 Record ed SARS-CoV-2 (COVID-19) mRNA-1273 vaccine 07/09/20 R ecorded SARS-CoV-2 (COVID-19) mRNA-1273 vaccine 06/11/20 R ecorded SARS-CoV-2 (COVID-19) mRNA-1273 vaccine 3 06/11/20 Recorded pneumococcal 13-valent conjugate vaccine 02/06/19 Recorded zoster vaccine live 01/22/13 Recorded Novel Ezhwskupl-Q2Y4-15, all formulation 04/29/09 Recorded pneumococcal 7-valent vaccine 04/09/00 Recorded Not Given Vaccine Date Status Refusal Reason Td(adult) unspecified formulation 4 04/27/20 Not G iven Patient Refuses 1Result Comment: Given at the pharmacy-see record 2Result Comment: [facility] 3Result Comment: 1st vaccine 4Result Comment: Last Modified by Azra Dykes, Cost Specialist 04-27-2020, 11:54 Medications !-DuoNeb 0.5 mg-2.5 mg/3 mL inhalation solution 3 mL, NEB, QID, # 120 EA, 0 Refill(s), Pharmacy: [facility], 157, cm, 04/21/22 4:43:00 EST, Height/Length [...] BID, # 28 EA, 4 Refill(s), Pharmacy: [facility] #58, 157, cm, 04/22/22 20:46:00 EST, Height/Length [...] wheezing, # 180 mL, 3 Refill(s), Pharmacy: [facility] #[facility], 157, cm, 04/21/22 4:43:00 EST, Height/Length [...] instructions, # 1 EA, 0 Refill(s), Pharmacy: [facility] Start Date: 12/04/22 Status: Ordered Jardiance 10 mg oral tablet 10 mg = 1 tab, Oral, every morning, # 90 tab, 2 Refill(s), 157, cm, 07/12/22 4:56:00 EDT, Height/Length Dosing, 125.7, kg, 07/12/22 4:56:00 EDT, Weight Dosing Start Date: 10/18/22 Status: Ordered lancets lancets, tests blood sugar once daily, Supply, See instructions, # 100 EA, 3 Refill(s), Pharmacy: [facility] Start Date: 12/04/22 Status: Ordered loperamide [...] sites, # 1 EA, 0 Refill(s), Pharmacy: [facility]58, 157, cm, 07/12/22 4:56:00 EDT, Height/Length Dosing, 125.7, kg, 07/12/22 4:56:00 EDT, Weight Dosing Start Date: 12/04/22 Status: Ordered prednisoLONE acetate 0.12% ophthalmic suspension 0 Refill(s) Start Date: 10/18/22 Status: Ordered Sterile Lubricating Tears ophthalmic solution 0 Refill(s) Start Date: 10/18/22 Status: Ordered test strips test strips, test blood sugar daily, Supply, See instructions, # 100 EA, 3 Refill(s), Pharmacy: [facility] Start Date: 12/04/22 Status: Ordered tobramycin 0.3% ophthalmic solution 1 drops, Eye-Both, QID, # 5 mL, 0 Refill(s), Pharmacy: [facility]58, 157, cm, 04/22/22 20:46:00 EST, Height/Length Dosing, 122.47, kg, 04/22/22 20:46:00 EST, Weight Dosing Start Date: 06/13/22 Stop Date: 06/20/22 Status: Ordered torsemide 20 mg oral tablet 20 mg = 1 tab, Oral, Daily, # 90 tab, 4 Refill(s), Pharmacy: [facility]58, 157, cm, 04/22/22 20:46:00 EST, Height/Length [...] disease, colon polypx2. 2Normal. 3Revision in 2012 Social History Social History Type Response Tobacco Former tobacco user Tobacco Use:. Sex Female Patient Care team information Care Team Personnel Name: Dandy Driscoll CASING MACHINE OPERATOR Position: Physician Member Role: Informed Provider Address: Address: [address] Name: Knisey Patiño Position: Ambulatory - RN/INCOME TAX ADVISOR (Franck) Member Role: Supervisor Sanding Care Team Related Persons Name: ASH QUINTANA
--- OUTSIDE RECORDS SUMMARY | 2024-02-27 19:31 | XMS_ITS | Continuity of Care Document ---
Author Organization [facility] Address [address] [place] [address] Care Team Providers Care Branch Lending Manager Name Role Phone Dandy Driscoll Primary Care Physician Encounter NCTY_[place] Date(s): 02/10/22 - 02/10/[address] [address] Discharge Disposition: Home or Self Care Attending Physician: Priyanka Mahmood Admitting Physician: Priyanka Mahmood Allergies, Adverse Reactions, Alerts Substance Reaction Severity Status ALCOHOL 1 Unknown Active meperidine Bewilderment Unknown Active azithromycin Swollen face Unknown Active penicillins Swelling Other Unknown Active tetanus toxoids Unknown Active 1Rubbing Assessment and Plan Diagnostic Tests Pending * PAP Test [facility] 02/10/22 Future Scheduled Tests Radiology* MG Mammo Screening Bilateral w/ Otoniel 11/08/21 Immunizations Given and Recorded Vaccine Date Status Refusal Reason pneumococcal 23-polyvalent vaccine 1 09/23/21 Bc rded pneumococcal 23-polyvalent vaccine 02/13/08 Record ed KRPZ-SlN-0-mRNA-1273 (booster only) vacc 09/23/21 Recorded KFCP-VzJ-7-mRNA-1273 (booster only) vacc 07/09/20 Recorded influenza, unspecified [...] rded zoster vaccine live 01/22/13 Recorded Novel [id number]-[id number], all formulation 04/29/09 Recorded pneumococcal 7-valent vaccine 04/09/00 Recorded Not Given Vaccine Date Status Refusal Reason Td(adult) unspecified formulation 3 04/27/20 Not G iven Patient Refuses 1Result Comment: [facility] 2Result Comment: 1st vaccine 3Result Comment: Last Modified by Azra Dykes, Dairy Consultant 04-27-2020, 11:54 Medications Acidophilus oral capsule 0 Refill(s) Start Date: 10/27/21 Status: Ordered Advair Diskus 500 mcg-50 mcg inhalation powder 1 puffs, Inhale, BID, # 28 EA, 4 Refill(s), Pharmacy: [facility], 155, cm, 09/23/21 4:52:00 EDT, Height/Length Dosing, 125, kg, 09/23/21 4:52:00 EDT, Weight Dosing Start Date: 11/24/21 Status: Ordered Albuterol (Eqv-ProAir HFA) 90 mcg/inh inhalation aerosol 180 mcg 2 puffs, Inhale, every 4 hr, PRN as needed for wheezing, # 8.5 g, 2 Refill(s), Pharmacy: [facility], 155, cm, 09/23/21 4:52:00 EDT, Height/Length [...] Daily, # 90 tab, 2 Refill(s), Pharmacy: [facility], 155, cm, 09/23/21 4:52:00 EDT, Height/Length [...] BID, # 60 tab, 0 Refill(s), Pharmacy: [facility], 155, cm, 224:52:00 EDT, Height/Length Dosing, 125, kg, 09/23/21 4:52:00 EDT, Weight Dosing Start Date: 11/14/21 Status: Ordered lisinopril 10 mg oral tablet 10 mg = 1 tab, Oral, Daily, # 90 tab, 2 Refill(s), Pharmacy: [facility], 155, cm, 09/23/21 4:52:00 EDT, Height/Length Dosing, 125, kg, 09/23/21 4:52:00 EDT, Weight Dosing Start Date: 11/21/21 Status: Ordered loperamide 2 mg oral capsule 2 mg = 1 cap, Oral, TID, PRN as needed for loose stool, # 270 cap, 1 Refill(s), Pharmacy: [facility], 155, cm, 09/23/21 4:52:00 EDT, Height/Length Dosing, 125, kg, 09/23/21 4:52:00 EDT, Weight Dosing Start Date: 11/21/21 Status: Ordered naproxen 500 mg oral tablet 500 mg = 1 tab, Oral, BID, # 60 tab, 1 Refill(s), Pharmacy: [facility], 155,cm, 09/23/21 4:52:00 EDT, Height/Length Dosing, 125, kg, 09/23/21 4:52:00 EDT, Weight Dosing Start Date: 11/21/21 Status: Ordered Nyamyc 100,000 units/g topical powder See Instructions, Topical BID as needed for yeast, # 30 g, 0 Refill(s), Pharmacy: [facility], 155, cm, 09/23/21 4:52:00 EDT, Height/Length Dosing, 125, kg, 09/23/21 4:52:00 EDT, Weight Dosing Start Date: 11/21/21 Status: Ordered triamcinolone 0.1% topical cream 1 che, Topical, TID, PRN not specified, Apply to affected areas as needed., # 30 g, 0 Refill(s), Pharmacy: [facility], 155, cm, 09/23/21 4:52:00 EDT, Height/Length [...] Covid PCR test this afternoon. 3per [facility] [place] [...] Personnel Name: Dandy Driscoll NP Address: Address: [address]
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
--- OUTSIDE RECORDS SUMMARY | 2024-02-27 19:31 | XMS_ITS | Continuity of Care Document ---
Author Organization [facility] Address [address] [place] [address] Care Team Providers Care Researcher Name Role Phone Dandy Driscoll Primary Care Physician Encounter NCTY_[place] Date(s): 01/11/24 - 01/11/[address] [address] Discharge Disposition: Home or Self Care Attending Physician: Carlos Zhao MD Admitting Physician: Carlos Zhao MD Referring Physician: Carlos Zhao MD Allergies, Adverse Reactions, Alerts Substance Criticality Severity Reaction Reaction Severity Status azithromycin Unable to assess criticality Unknown Swollen face Active tetanus toxoids Unable to assess criticality Unknown Active Tape 1 High criticality Severe Unknown Act veronica ALCOHOL 2 High criticality Moderate Act veronica meperidine Unable to assess criticality Unknown Bewilderment Active penicillins Unable to assess criticality Unknown Swelling Other Active 1Outside Source Comment: Rips the skin off when removing 2Rubbing Assessment and Plan Future Scheduled Tests Laboratory* Urinalysis with Micro [...] 01/22/13 Bc rded influenza virus vaccine, inactivated 10/31/12 Bc rded influenza virus vaccine, inactivated 01/10/10 Bc rded influenza virus vaccine, inactivated 02/13/08 Bc rded influenza virus vaccine, inactivated 01/30/07 Bc rded influenza virus vaccine, inactivated 12/08/05 Bc rded influenza virus vaccine, inactivated 01/08/04 Bc rded zoster vaccine, inactivated 12/13/21 Recorded zoster vaccine, inactivated 09/29/21 Recorded pneumococcal 23-polyvalent vaccine 2 09/23/21 Bc rded pneumococcal 23-polyvalent vaccine 02/13/08 Record ed [id number]-FnH-0-mRNA-1273 (booster only) vacc 09/23/21 Recorded [id number]-AnA-6-mRNA-1273 (booster only) vacc 07/09/20 Recorded influenza, unspecified formulation 01/07/21 Record ed influenza, unspecified formulation 01/02/20 Record ed influenza, unspecified formulation 02/06/19 Record ed influenza, unspecified formulation 01/22/18 Record ed SARS-CoV-2 (COVID-19) mRNA-1273 vaccine 07/09/20 R ecorded SARS-CoV-2 (COVID-19) mRNA-1273 vaccine 06/11/20 R ecorded SARS-CoV-2 (COVID-19) mRNA-1273 vaccine 3 06/11/20 Recorded pneumococcal 13-valent conjugate vaccine 02/06/19 Recorded zoster vaccine live 01/22/13 Recorded Novel [id number]-[id number], all formulation 04/29/09 Recorded pneumococcal 7-valent vaccine 04/09/00 Recorded Not Given Vaccine Date Status Refusal Reason Td(adult) unspecified formulation 4 04/27/20 Not G emilyen Patient Refuses 1Result Comment: Given at the pharmacy-see record 2Result Comment: [facility] pharmacy 3Result Comment: 1st vaccine 4Result Comment: Last Modified by Azra Dykes, Cobol Developer 04-27-2020, 11:54 Medications !-DuoNeb 0.5 mg-2.5 mg/3 mL inhalation solution 3 mL, NEB, QID, # 120 EA, 0 Refill(s), Pharmacy: [facility] #[facility], 157, cm, 04/21/22 4:43:00 EST, Height/Length [...] BID, # 28 EA, 4 Refill(s), Pharmacy: [facility] #[facility], 157, cm, 03/27/23 9:48:00 EST, Height, [...] wheezing, # 180 mL, 3 Refill(s), Pharmacy: [facility] #58, 157, cm, 04/21/22 4:43:00 EST, Height/Length [...] BID, # 14 tab, 0 Refill(s), Pharmacy: [facility] #58, 157, cm, 03/27/23 9:48:00 EST, Height, 123.5, kg, 11/21/23 11:28:00 EDT, Weight Dosing Start Date: 12/13/23 Stop Date: 12/20/23 Status: Ordered Bactrim DS 800 mg-160 mg oral tablet 1 tab, Oral, BID, # 14 tab, 0 Refill(s), Pharmacy: [facility] #58, 157, cm, 03/27/23 9:48:00 EST, Height, [...] Daily, # 90 cap, 0 Refill(s), Pharmacy: [facility] #58, 157, cm, 03/27/23 9:48:00 EST, Height, 123.5, kg, 11/21/23 11:28:00 EDT, Weight Dosing Start Date: 12/06/23 Status: Ordered clindamycin 300 mg oral capsule See Instructions, TAKE 2 CAPSULES BY MOUTH ONCE PRIOR TO DENTAL PROCEDURE-2 upcoming dental appointments, # 4 cap, 0 Refill(s), Pharmacy: [facility] #[facility], 157, cm, 03/27/23 9:48:00 EST, Height, [...] instructions, # 1 EA, 0 Refill(s), Pharmacy: [facility] #58 Start Date: 12/04/22 Status: Ordered lancets lancets, tests blood sugar once daily, Supply, See instructions, # 100 EA, 3 Refill(s), Pharmacy: [facility] Start Date: 12/04/22 Status: Ordered loperamide [...] 25), # 90 tab, 3 Refill(s), Pharmacy: [facility] #58, 157, cm, 02/27/23 9:53:00 EST, Height, 118.55, kg, 03/02/23 12:53:00 EST, Weight Dosing Start Date: 03/08/23 Stop Date: 03/02/24 Status: Ordered Myrbetriq 50 mg oral tablet, extended release 50 mg = 1 tab, Oral, Daily, do not crush or chew, # 90 tab, 3 Refill(s), Pharmacy: [facility], 157, cm, 02/27/23 9:53:00 EST, Height, 118.55, [...] DAILY, # 1 EA, 0 Refill(s), Pharmacy: [facility] #58, 157, cm, 02/14/23 11:37:00 EST, Height, 119.07, kg, 02/14/23 11:38:00 EST, Weight Dosing Start Date: 02/23/23 Status: Ordered prednisoLONE acetate 0.12% ophthalmic suspension 0 Refill(s) Start Date: 10/18/22 Status: Ordered test strips test strips, test blood sugar daily, Supply, See instructions, # 100 EA, 3 Refill(s), Pharmacy: [facility] #58 Start Date: 12/04/22 Status: Ordered tobramycin 0.3% ophthalmic solution 1 drops, Eye-Both, QID, # 5 mL, 0 Refill(s), Pharmacy: [facility] #[facility], 157, cm, 04/22/22 20:46:00 EST, Height/Length Dosing, 122.47, kg, 04/22/22 20:46:00 EST, Weight Dosing Start Date: 06/13/22 Stop Date: 06/20/22 Status: Ordered torsemide 20 mg oral tablet 20 mg = 1 tab, Oral, Daily, # 90 tab, 4 Refill(s), Pharmacy: [facility] #58, 157, cm, 04/22/22 20:46:00 EST, Height/Length Dosing, 122.47, kg, 04/22/22 20:46:00 EST, Weight Dosing Start Date: 07/04/22 Status: Ordered triamcinolone 0.1% topical cream 1 che, Topical, TID, PRN not specified, Apply to affected areas as needed., # 30 g, 0 Refill(s), Pharmacy: [facility] [...] information Care Team Personnel Name: Dandy Driscoll VICE PRESIDENT OF BRAND MANAGEMENT Position: Physician Member Role: Informed Provider Address: [address] Care Team Related Persons Name: ASH QUINTANA Insurance Providers Guarantor name: SURYA QUINTANA Health Plan Information #: 1 Payer: [employer] MEDICARE REPLACEMENT HMO Member Number: [id number] Policy Number: NA Health Plan Information #: 2 Payer: [employer] MEDICARE REPLACEMENT HMO Member Number: [id number] Policy Number: NA
--- OUTSIDE RECORDS SUMMARY | 2024-02-27 19:32 | XMS_ITS | Continuity of Care Document ---
Author Organization [facility] Address [address] [place] [address] Care Team Providers Care Air Conditioning Unit Tester Name Role Phone Dandy Driscoll Carola Primary Care Physician [phone] Encounter NCTY_[place] Date(s): 06/05/23 - 06/05/23 [facility] [address] [place] [address] Discharge Disposition: Home Allergies, Adverse Reactions, Alerts Substance Reaction Severity Status meperidine Bewilderment Unknown Active azithromycin Swollen face Unknown Active tetanus toxoids Unknown Active Tape 1 Unknown Severe Active ALCOHOL 2 Moderate Active penicillins Swelling Other Unknown Active 1Outside Source Comment: Rips the skin off when removing 2Rubbing Assessment and Plan Future Appointments Future Scheduled [...] rded pneumococcal 23-polyvalent vaccine 02/13/08 Record ed BGCJ-BwB-5-mRNA-1273 (booster only) vacc 09/23/21 Recorded YLNW-AcJ-8-mRNA-1273 (booster only) vacc 07/09/20 Recorded influenza, unspecified formulation 01/07/21 Record ed influenza, unspecified formulation 01/02/20 Record ed influenza, unspecified formulation 02/06/19 Record ed influenza, unspecified formulation 01/22/18 Record ed SARS-CoV-2 (COVID-19) mRNA-1273 vaccine 07/09/20 R ecorded SARS-CoV-2 (COVID-19) mRNA-1273 vaccine 06/11/20 R ecorded SARS-CoV-2 (COVID-19) mRNA-1273 vaccine 3 06/11/20 Recorded pneumococcal 13-valent conjugate vaccine 02/06/19 Recorded zoster vaccine live 01/22/13 Recorded Novel Hhgdrexjg-W3U3-72, all formulation 04/29/09 Recorded pneumococcal 7-valent vaccine 04/09/00 Recorded Not Given Vaccine Date Status Refusal Reason Td(adult) unspecified formulation 4 04/27/20 Not G iven Patient Refuses 1Result Comment: Given at the pharmacy-see record 2Result Comment: [facility] pharmacy 3Result Comment: 1st vaccine 4Result Comment: Last Modified by Azra Dykes, Specialized Developer 04-27-2020, 11:54 Medications !-DuoNeb 0.5 mg-2.5 mg/3 mL inhalation solution 3 mL, NEB, QID, # 120 EA, 0 Refill(s), Pharmacy: [facility] #58, 157, cm, 04/21/22 4:43:00 EST, Height/Length [...] hr, # 240 cap, 0 Refill(s), Pharmacy: [facility] #58, 157, cm, 02/27/23 9:53:00 EST, Height, 118.55, kg, 03/02/23 12:53:00 EST, Weight Dosing Start Date: 03/02/23 Status: Ordered Acidophilus oral capsule 0 Refill(s) Start Date: 10/27/21 Status: Ordered Advair Diskus 500 mcg-50 mcg inhalation powder 1 puffs, Inhale, BID, # 28 EA, 4 Refill(s), Pharmacy: [facility] #58, 157, cm, 04/22/22 20:46:00 EST, Height/Length [...] wheezing, # 180 mL, 3 Refill(s), Pharmacy: [facility] #58, 157, cm, 04/21/22 4:43:00 EST, Height/Length [...] cough, # 30 cap, 0 Refill(s), Pharmacy: [facility] #58, 157, cm, 03/27/23 9:48:00 EST, Height, [...] PROCEDURE, # 2 cap, 0 Refill(s), Pharmacy: [facility] #58, 157, cm, 03/27/23 9:48:00 EST, Height, [...] instructions, # 1 EA, 0 Refill(s), Pharmacy: [facility] #58 Start Date: 12/04/22 Status: Ordered lancets lancets, tests blood sugar once daily, Supply, See instructions, # 100 EA, 3 Refill(s), Pharmacy: [facility] #58 Start Date: 12/04/22 Status: Ordered loperamide [...] 25), # 90 tab, 3 Refill(s), Pharmacy: [facility] #58, 157, cm, 02/27/23 9:53:00 EST, Height, 118.55, kg, 03/02/23 12:53:00 EST, Weight Dosing Start Date: 03/08/23 Stop Date: 03/02/24 Status: Ordered Myrbetriq 50 mg oral tablet, extended release 50 mg = 1 tab, Oral, Daily, do not crush or chew, # 90 tab, 3 Refill(s), Pharmacy: [facility]58, 157, cm, 02/27/23 9:53:00 EST, Height, 118.55, [...] DAILY, # 1 EA, 0 Refill(s), Pharmacy: [facility] #58, 157, cm, 02/14/23 11:37:00 EST, Height, [...] instructions, # 100 EA, 3 Refill(s), Pharmacy: [facility] #58 Start Date: 12/04/22 Status: Ordered tobramycin 0.3% ophthalmic solution 1 drops, Eye-Both, QID, # 5 mL, 0 Refill(s), Pharmacy: [facility] #58, 157, cm, 04/22/22 20:46:00 EST, Height/Length Dosing, 122.47, kg, 04/22/22 20:46:00 EST, Weight Dosing Start Date: 06/13/22 Stop Date: 06/20/22 Status: Ordered torsemide 20 mg oral tablet 20 mg = 1 tab, Oral, Daily, # 90 tab, 4 Refill(s), Pharmacy: [facility] #58, 157, cm, 04/22/22 20:46:00 EST, Height/Length [...] test this afternoon. 3[place] [facility] [place] Procedures Procedure Date [...] information Care Team Personnel Name: Dandy Driscoll SUPERINTENDENT FACTORY Position: Physician Member Role: Informed Provider Address: Address: [address] Name: Kinsey Patiño Position: Ambulatory - RN/ASSOCIATION EXECUTIVE (Franck) Member Role: Driver Trainee Care Team Related Persons Name: ASH QUINTANA
--- OUTSIDE RECORDS SUMMARY | 2024-02-27 19:32 | XMS_ITS | Encounter Summary ---
Author Organization [facility] Address [address] [place] [address] Care Team Providers Care [employer] Law Clerk Name Role Phone Unknown, Provider MD Unavailable Unavailable Dandy Driscoll APRN Primary Care Provider Reason for Visit * Reason Onset Date Comments Coordination Of Care 10/18/2023 Encounter Details Date Type Department Care Team (Late st Contact Info) Description 10/18/2023 Telephone [facility] - [facility] [address] [place] [address] Wendy Schrader, RN Coordination Of Care Social History Tobacco Use Types Packs/Day Years Used Date Smoking Tobacco: Never Assessed Interpersonal Safety Answer Date Record ed Physically Hurt Never 11/09/2019 Verbally Threaten Not on file 11/09/2019 Comments Unknown Sex and Gender Information Value Date Recorded Sex Assigned at Not on file Legal Sex Female 17:28 EST Gender Identity Not on file Sexual Orientation Not on file documented as of this encounter Miscellaneous Notes * Telephone Encounter - Wendy Schrader, RN - 10/18/2023 4847 EDT Call to patient re: no show consult toda. Per care everywhere patient has reached out to [facility] [place] tax collection coordinator onc care there stating her insurance will not cover services at [facility]. Patient aware to call this travel writer if she wishes for services in future. documented in this encounter Plan of Treatment Not on file documented as of this encounter Visit Diagnoses Not on filedocumented in this encounter Care Teams [employer] Law Clerk Relationship Specialty Start Date End Date Dandy Driscoll APRN [address] [place] [address] PCP - General 03/09/23 Unknown, Provider, 10/31/18 documented as of this encounter
--- OUTSIDE RECORDS SUMMARY | 2024-02-27 19:32 | XMS_ITS | Clinical Summary ---
Author Organization [facility] Address [address] [place] [address] Care Team Providers Care Powertrain Calibration Engineer Name Role Phone Unknown, Provider MD Unavailable Unavailable Dandy Driscoll APRN Primary Care Provider Medications fluticasone propion-salmete roL (ADVAIR DISKUS) 500-50 mcg/dose diskus inhaler Inhale 1 Puff as directed 2 times daily. 3 Active calcium carbonate (TUMS) 200 mg calcium (500 mg) tablet,chewable Take 3 Tablets by mouth as needed. Active acetaminophen 500 mg capsule Take 2 Capsules by mouth every 6 hours as needed. 3 Active albuterol 2.5 mg /3 mL (0.083 %) nebulizer solution Take 3 mL by nebulization every 4 hours as needed for Wheezing. 3 Active aspirin 81 mg EC tablet Take 1 Tablet by mouth daily. 2 Active ONETOUCH ULTRA TEST test strips 1 Strip daily. 4 Active ONETOUCH ULTRA2 METER USE TO TEST GLUCOSE LEVELS ONCE DAILY 3 Active buPROPion (WELLBUTRIN XL) 300 mg XL tablet Take 1 Tablet by mouth daily. 2 Active furosemide (LASIX) 20 mg tablet Take 1 Tablet by mouth daily. 3 Active ipratropium-alb uteroL (DUONEB) 0.5 mg-3 mg(2.5 mg base)/3 mL nebulizer solution Take 3 mL by nebulization every 4 hours as needed. 3 Active LACTOBACILLUS ACIDOPHILUS ORAL Take 1 Tablet by mouth daily. Active levalbuterol (XOPENEX HFA) 45 mcg/actuation inhaler Inhale 2 Puffs as directed every 4 hours as needed. Active lisinopriL (PRINIVIL) 10 mg tablet Take 1 Tablet by mouth daily. 2 Active loperamide (IMODIUM A-D) 2 mg tablet Take 2 Tablets by mouth 4 times daily as needed. Active megestroL (MEGACE) 40 mg tablet Take 1 Tablet by mouth 2 times daily. 4 Active mirabegron (MYRBETRIQ) 50 mg ER tablet Take 1 Tablet by mouth daily. 3 03/02/20 24 Active omeprazole (PRILOSEC) 20 mg capsule Take 1 Capsule by mouth daily. 3 Active prednisoLONE acetate (PRED MILD) 0.12 % ophthalmic suspension Place 1 Drop into both eyes 4 times daily. 3 Active semaglutide (OZEMPIC) 1 mg/dose (4 mg/3 mL) pen injector Inject 1 mg into the skin daily. 3 Active sulfamethoxazol e-trimethoprim (BACTRIM/CO-TRI MOXAZOLE DS) 800-160 mg per tablet Take 1 Tablet by mouth 2 times daily. 4 Active torsemide (DEMADEX) 20 mg tablet Take 1 Tablet by mouth daily. 3 Active triamcinolone (KENALOG) 0.1 % cream Apply 1 Application topically if needed. 2 Active Active Problems Problem Noted Date Diagnosed Date Acute diastolic heart failure ([facility]) 10/15/19 24 Acute on chronic congestive heart failure ([facility]) 10/15/2023 Asthma 10/15/2023 Overview (10/15/2023): From 07-14-2021 visit: stable except on exercise likely due to conditioning. Bradley cleaning is not currently on formulary. Will trial symbicort. 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 Obesity 02/14/2018 Lichen sclerosus of female genitalia 12/06/2017 Renal insufficiency syndrome 09/13/2010 Social History Tobacco Use Types Packs/Day Years Used Date Smoking Tobacco: Never Assessed Interpersonal Safety Answer Date Record ed Physically Hurt Never 11/09/2019 Verbally Threaten Not on file 11/09/2019 Comments Unknown Sex and Gender Information Value Date Recorded Sex Assigned at Not on file Legal Sex Female 17:28 EST Gender Identity Not on file Sexual Orientation Not on file Obstetrics History Last Filed Vital Signs Vital Sign Reading Time Taken Comments Blood Pressure 105/54 07/20/2022 2335 EDT Pulse 94 07/20/2022 2216 EDT Temperature 36.4 ??C (97.5 ??F) 07/20/2022 2158 EDT Respiratory Rate 20 07/20/2022 2244 EDT Oxygen Saturation 95% 07/20/2022 2315 EDT Inhaled Oxygen Concentration - - Weight - - Height - - Body Mass Index - - Plan of Treatment Health Maintenance Due Date Last Done Comments Asthma Action Plan 1950 Copd Action Plan 1950 Hepatitis C Screen 1950 Lung Function Test (Spirometry) 1950 RSV Immunization ( o r 60+ Years) (1 - Risk 60-74 years 1-dose series) 2011 Fall Risk Screening 2016 COVID-19 Vaccine (5 2023-2 5 season) 2023 09/23/2021, 07/09/2020, 07/09/2020, Additional history exists Insurance [facility] MEDICARE Care Teams Powertrain Calibration Engineer Relationship Specialty Start Date End Date Dandy Driscoll APRN [address] [place] [address] [address] [place] [address] PCP - General 03/09/23 Unknown, Provider, 10/31/18
--- OUTSIDE RECORDS SUMMARY | 2024-02-27 19:32 | XMS_ITS | Referral Summary ---
Author Organization [facility] Address [address] [place] [address] Care Team Providers Care Occupational Health Coordinator Name Role Phone Unknown, Provider MD Unavailable Unavailable Dandy Driscoll APRN Primary Care Provider [phone] Medications fluticasone propion-salmete roL (ADVAIR DISKUS) 500-50 [...] Date Diagnosed Date Acute diastolic heart failure ([facility]) 10/15/19 24 Acute on chronic congestive heart failure ([facility]) 10/15/2023 Asthma 10/15/2023 Overview [...] on file Sexual Orientation Not on file Last Filed Vital Signs Vital Sign Reading Time Taken Comments Blood Pressure 105/54 07/20/2022 2335 EDT Pulse 94 07/20/2022 2216 EDT Temperature 36.4 ??C (97.5 ??F) 07/20/2022 2158 EDT Respiratory Rate 20 07/20/2022 2244 EDT Oxygen Saturation 95% 07/20/2022 2315 EDT Inhaled Oxygen Concentration - - Weight - - Height - - Body Mass Index - - Plan of Treatment Not on file [place] [address] [place] [address] [place] [address] Care Teams Occupational Health Coordinator Relationship Specialty Start Date End Date Dandy Driscoll APRN [address] [place] [address] [address] [place], [place] [id number] PCP - General 03/09/23 Unknown, Provider, 10/31/18
--- OUTSIDE RECORDS SUMMARY | 2024-02-27 19:32 | XMS_ITS | Encounter Summary ---
Author Organization [facility] Address [address] [place] [address] Care Team Providers Care Direct Sales Consultant Name Role Phone Unavailable Primary Care Provider Unavailabl e Encounter Details Date Type Department Care Team (Late st Contact Info) Description 09/10/2001 Results Only [facility] [address] [place] [address] Kaya Fleming MD [address] [place] [address] Social History Tobacco Use Types Packs/Day Years Used Date Smoking Tobacco: Never Assessed Comments Unknown Sex and Gender Information Value Date Recorded Sex Assigned at Not on file Legal Sex Female 17:28 EST Gender Identity Not on file Sexual Orientation Not on file documented as of this encounter Plan of Treatment Not on file documented as of this encounter Procedures Procedure Name Priority Date/Time Associated Diagnosis Comments CYTOPATHOLOGY Routine 09/10/2001 0:00 EDT documented in this encounter Results * CYTOPATHOLOGY (09/10/2001 0:00 EDT) Pathology Report: CYTOPATHOLOGY REPORT Reports generated via electronic interface contain original data; however they are lacking the format of the original report. Caution should be taken when reading/interpreti ng unformatted reports. Name: ? SURYA KNIGHT ? Accession #: ? [id number] : ? 1950 (Age: 51) ??F ?Collect Date: ? 09/10/2001 Location: ? [facility] ? Receive Date: ? 09/12/2001 Provider: ?KAYA FLEMING MD Copy to: ? Specimen/Source: ?ThinPrep Pap Test, Vagina/Cervix/Endo cervix Last Menstrual Period: ? 05/11 ? SPECIMEN ADEQUACY ? Satisfactory for Evaluation - transformation zone component absent GENERAL CATEGORIZATION ? Negative for Intraepithelial Lesion or Malignancy ? Document reviewed and electronically signed by: ? Luiz Vences, FARNAZ(ASCP) ? Report Date: ??09/16/2001 09:15 End of Report [facility] 09/10/2001 09/12/2001 us Kaya Fleming MD PATHOLOGY ORDERABLES Final Re sult [facility] [address] [place] [address] documented in this encounter Visit Diagnoses Not on filedocumented in this encounter
--- OUTSIDE RECORDS SUMMARY | 2024-02-27 19:32 | XMS_ITS | Encounter Summary ---
Author Organization [facility] Address [address] [place] [address] Care Team Providers Care Dev Manager Name Role Phone Unknown, Provider Primary Care Provider Unava ilable Encounter Details Date Type Department Care Team (Late st Contact Info) Description 11/14/2017 Results Only [facility] [phone] Janeen Payne, FITNESS FLOOR ATTENDANT [address] [place] [address] [address] [place], [place] [id number] Social History Tobacco Use Types Packs/Day Years [...] Procedure Name Priority Date/Time Associated Diagnosis Comments SURGICAL PATHOLOGY Routine 11/14/2017 22 :52 EDT documented in this encounter Results * SURGICAL PATHOLOGY (11/14/2017 22:52 EDT) Pathology Report: SURGICAL PATHOLOGY REPORT Reports generated via electronic interface contain original data; however they are lacking the format of the original report. Caution should be taken when reading/interpret ing unformatted reports. Name: ? SURYA KNIGHT ? Accession #: ? [id number] ? : ? 1950 (Age: 67) ??F ? Collect Date: ? 11/14/2017 ? Location: ? [facility] ? Receive Date: ? 11/14/2017 ? Provider: JANEEN PAYNE SOFTWARE PACKAGER Copy to: ? Final Pathologic Diagnosis: SKIN OF VULVA, BIOPSY: - Lichen sclerosus. ??See microscopic. Microscopic Description: Sections reveal a lichenoid dermatitis with underlying dermal sclerosis. ??A PAS stain is performed given the clinical history and shows no evidence of a fungal infection. ??The findings are consistent with lichen sclerosus. ??(Dr. Ayon)/[facility] Document reviewed and electronically signed by: JOVI AYON MD Report ??Date: 11/16/2017 13:49 By the signature above, the attending physician certifies that he/she has personally conducted a gross and/or microscopic examination of the described specimens and rendered or confirmed the above diagnosis. Specimen(s) Received: Vulvar biopsy, 2.0 mm punch Clinical History: Vaginal dryness, lichen sclerosus vs yeast; LMP: Postmenopausal Gross Description: ? Received in formalin labelled with proper patient identification (initials B, A) and not otherwise specified is a superficial punch biopsy of white skin (0.2 cm in diameter and 0.1 cm in thickness). Submitted intact in 1. Sulema Salgado 11/15/2017 8:17 AM End of Report [facility] 11/14/2017 22:5 2 EDT 11/14/2017 22:52 EDT us Janeen Payne FITNESS FLOOR ATTENDANT PATHOLOGY ORDERABLES Final Resu lt [facility] [address] [place] [address] documented in this encounter Visit Diagnoses Not on filedocumented in this encounter Care Teams Dev Manager Relationship Specialty Start Date End Date Unknown, Provider, PCP - General 05/05/14 10/30/18 documented as of this encounter
--- OUTSIDE RECORDS SUMMARY | 2024-02-27 19:32 | XMS_ITS | Continuity of Care Document ---
Author Organization [facility] Address [address] [place] [address] Care Team Providers Care Docketing Specialist Name Role Phone Dandy Driscoll Carola Primary Care Physician Encounter [facility] Date(s): 06/04/23 - 06/04/23 [facility] [address] [place] [address] Discharge Disposition: Home Allergies, Adverse Reactions, Alerts [...] rded pneumococcal 23-polyvalent vaccine 02/13/08 Record ed [id number]-4-mRNA-1273 (booster only) vacc 09/23/21 Recorded [id number]-[id number]-1-mRNA-1273 (booster only) vacc 07/09/20 Recorded influenza, unspecified formulation 01/07/21 Record ed influenza, unspecified formulation 01/02/20 Record ed influenza, unspecified formulation 02/06/19 Record ed influenza, unspecified formulation 01/22/18 Record ed SARS-CoV-2 (COVID-19) mRNA-1273 vaccine 07/09/20 R ecorded SARS-CoV-2 (COVID-19) mRNA-1273 vaccine 06/11/20 R ecorded SARS-CoV-2 (COVID-19) mRNA-1273 vaccine 3 06/11/20 Recorded pneumococcal 13-valent conjugate vaccine 02/06/19 Recorded zoster vaccine live 01/22/13 Recorded Novel [id number], all formulation 04/29/09 Recorded pneumococcal 7-valent vaccine 04/09/00 Recorded Not Given Vaccine Date Status Refusal Reason Td(adult) unspecified formulation 4 04/27/20 Not G iven Patient Refuses 1Result Comment: Given at the pharmacy-see record 2Result Comment: [facility] 3Result Comment: 1st vaccine 4Result Comment: Last Modified by Azra Dykes, Interactive Video Technician 04-27-2020, 11:54 Medications !-DuoNeb 0.5 mg-2.5 mg/3 mL inhalation solution 3 mL, NEB, QID, # 120 EA, 0 Refill(s), Pharmacy: [facility] #58, 157, cm, 04/21/22 4:43:00 EST, Height/Length [...] hr, # 240 cap, 0 Refill(s), Pharmacy: [facility] #58, 157, cm, 02/27/23 9:53:00 EST, Height, 118.55, kg, 03/02/23 12:53:00 EST, Weight Dosing Start Date: 03/02/23 Status: Ordered Acidophilus oral capsule 0 Refill(s) Start Date: 10/27/21 Status: Ordered Advair Diskus 500 mcg-50 mcg inhalation powder 1 puffs, Inhale, BID, # 28 EA, 4 Refill(s), Pharmacy: [facility] #58, 157, cm, 04/22/22 20:46:00 EST, Height/Length [...] wheezing, # 180 mL, 3 Refill(s), Pharmacy: [facility] #58, 157, cm, 04/21/22 4:43:00 EST, Height/Length [...] cough, # 30 cap, 0 Refill(s), Pharmacy: [facility] #58, 157, cm, 03/27/23 9:48:00 EST, Height, [...] PROCEDURE, # 2 cap, 0 Refill(s), Pharmacy: [facility] #58, 157, cm, 03/27/23 9:48:00 EST, Height, [...] instructions, # 1 EA, 0 Refill(s), Pharmacy: [facility] #58 Start Date: 12/04/22 Status: Ordered lancets lancets, tests blood sugar once daily, Supply, See instructions, # 100 EA, 3 Refill(s), Pharmacy: [facility]58 Start Date: 12/04/22 Status: Ordered loperamide [...] 25), # 90 tab, 3 Refill(s), Pharmacy: [facility] #58, 157, cm, 02/27/23 9:53:00 EST, Height, 118.55, kg, 03/02/23 12:53:00 EST, Weight Dosing Start Date: 03/08/23 Stop Date: 03/02/24 Status: Ordered Myrbetriq 50 mg oral tablet, extended release 50 mg = 1 tab, Oral, Daily, do not crush or chew, # 90 tab, 3 Refill(s), Pharmacy: [facility]58, 157, cm, 02/27/23 9:53:00 EST, Height, 118.55, [...] DAILY, # 1 EA, 0 Refill(s), Pharmacy: [facility] #58, 157, cm, 02/14/23 11:37:00 EST, Height, [...] instructions, # 100 EA, 3 Refill(s), Pharmacy: [facility] #58 Start Date: 12/04/22 Status: Ordered tobramycin 0.3% ophthalmic solution 1 drops, Eye-Both, QID, # 5 mL, 0 Refill(s), Pharmacy: [facility] #58, 157, cm, 04/22/22 20:46:00 EST, Height/Length Dosing, 122.47, kg, 04/22/22 20:46:00 EST, Weight Dosing Start Date: 06/13/22 Stop Date: 06/20/22 Status: Ordered torsemide 20 mg oral tablet 20 mg = 1 tab, Oral, Daily, # 90 tab, 4 Refill(s), Pharmacy: [facility] #58, 157, cm, 04/22/22 20:46:00 EST, Height/Length [...] information Care Team Personnel Name: Dandy Driscoll SHIFT MECHANIC Position: Physician Member Role: Informed Provider Address: Address: [address] Name: Kinsey Patiño Position: Ambulatory - RN/DIPPER OPERATOR (Franck) Member Role: Sucker Machine Operator Care Team Related Persons Name: ASH QUINTANA
--- OUTSIDE RECORDS SUMMARY | 2024-02-27 19:32 | XMS_ITS | Continuity of Care Document ---
Author Organization [facility] Address [address] [place] [address] Care Team Providers Care Rasper Machine Operator Name Role Phone Dandy Driscoll Primary Care Physician [facility]counter [facility] Date(s): 03/05/23 - 04/11/[address] [address] Discharge Disposition: Home or Self Care Attending Physician: Dandy Driscoll NP Admitting Physician: Dandy Driscoll NP Referring Physician: Dandy Driscoll MEAT PACKAGER Allergies, Adverse Reactions, Alerts Substance Reaction Severity [...] rded pneumococcal 23-polyvalent vaccine 02/13/08 Record ed [id number]-[id number]-1273 (booster only) vacc 09/23/21 Recorded [id number]-[id number]-1-mRNA-1273 (booster only) vacc 07/09/20 Recorded influenza, unspecified formulation 01/07/21 Record ed influenza, unspecified formulation 01/02/20 Record ed influenza, unspecified formulation 02/06/19 Record ed influenza, unspecified formulation 01/22/18 Record ed SARS-CoV-2 (COVID-19) mRNA-1273 vaccine 07/09/20 R ecorded SARS-CoV-2 (COVID-19) mRNA-1273 vaccine 06/11/20 R ecorded SARS-CoV-2 (COVID-19) mRNA-1273 vaccine 3 06/11/20 Recorded pneumococcal 13-valent conjugate vaccine 02/06/19 Recorded zoster vaccine live 01/22/13 Recorded Novel [id number], all formulation 04/29/09 Recorded pneumococcal 7-valent vaccine 04/09/00 Recorded Not Given Vaccine Date Status Refusal Reason Td(adult) unspecified formulation 4 04/27/20 Not G iven Patient Refuses 1Result Comment: Given at the pharmacy-see record 2Result Comment: [facility] 3Result Comment: 1st vaccine 4Result Comment: Last Modified by Azra Dykes, Merchandising Intern 04-27-2020, 11:54 Medications !-DuoNeb 0.5 mg-2.5 mg/3 mL inhalation solution 3 mL, NEB, QID, # 120 EA, 0 Refill(s), Pharmacy: [facility] #58, 157, cm, 04/21/22 4:43:00 EST, Height/Length [...] hr, # 240 cap, 0 Refill(s), Pharmacy: [facility] #58, 157, cm, 02/27/23 9:53:00 EST, Height, 118.55, kg, 03/02/23 12:53:00 EST, Weight Dosing Start Date: 03/02/23 Status: Ordered Acidophilus oral capsule 0 Refill(s) Start Date: 10/27/21 Status: Ordered Advair Diskus 500 mcg-50 mcg inhalation powder 1 puffs, Inhale, BID, # 28 EA, 4 Refill(s), Pharmacy: [facility] #58, 157, cm, 04/22/22 20:46:00 EST, Height/Length Dosing, 122.47, kg, 04/22/22 20:46:00 EST, Weight Dosing Start Date: 05/11/22 Status: Ordered Albuterol (Eqv-ProAir HFA) 90 mcg/inh inhalation aerosol 180 mcg 2 puffs, Inhale, every 4 hr, PRN as needed for wheezing, # 8.5 g, 2 Refill(s), Pharmacy: [facility], 155, cm, 09/23/21 4:52:00 EDT, Height/Length Dosing, 125, kg, 09/23/21 4:52:00 EDT, Weight Dosing Start Date: 11/21/21 Status: Ordered albuterol 2.5 mg/3 mL (0.083%) inhalation solution 2.5 mg = 3 mL, NEB, every 4 hr, PRN as needed for wheezing, # 180 mL, 3 Refill(s), Pharmacy: [facility] #58, 157, cm, 04/21/22 4:43:00 EST, Height/Length [...] oral tablet 1 tab, Oral, BID, # 20 tab, 0 Refill(s), Pharmacy: [facility] #58, 157, cm, 02/27/23 9:53:00 EST, Height, 118.55, kg, 03/02/23 12:53:00 EST, Weight Dosing Start Date: 03/02/23 Stop Date: 03/12/23 Status: Ordered buPROPion 300 mg/24 hours (XL) oral tablet, extended release 300 mg = 1 tab, Oral, Daily, # 90 tab, 2 Refill(s), Pharmacy: [facility], 155, cm, 09/23/21 4:52:00 EDT, [...] instructions, # 1 EA, 0 Refill(s), [facility] Start Date: 12/04/22 Status: Ordered lancets lancets, tests blood sugar once daily, Supply, See instructions, # 100 EA, 3 Refill(s), Pharmacy: [facility]58 Start Date: 12/04/22 Status: Ordered loperamide 2 mg oral capsule 2 mg = 1 cap, Oral, TID, PRN as needed for loose stool, # 270 cap, 1 Refill(s), Pharmacy: [facility], 155, cm, 09/23/21 4:52:00 EDT, Height/Length Dosing, 125, kg, 09/23/21 4:52:00 EDT, Weight Dosing Start Date: 11/21/21 Status: Ordered Myrbetriq 25 mg oral tablet, extended release 25 mg = 1 tab, Oral, Daily, do not crush or chew; total daily dose 75 mg (50 + 25), # 90 tab, 3 Refill(s), Pharmacy: [facility] #58, 157, cm, 02/27/23 9:53:00 EST, Height, 118.55, kg, 03/02/23 12:53:00 EST, Weight Dosing Start Date: 03/08/23 Stop Date: 03/02/24 Status: Ordered Myrbetriq 25 mg oral tablet, [...] chew, # 90 tab, 3 Refill(s), Pharmacy: [facility], 157, cm, 02/27/23 9:53:00 EST, Height, 118.55, [...] # 60 tab, 1 Refill(s), Pharmacy: [facility], 155,cm, 09/23/21 4:52:00 EDT, Height/Length Dosing, 125, kg, 09/23/21 4:52:00 EDT, Weight Dosing Start Date: 11/21/21 Status: Ordered Nyamyc 100,000 units/g topical powder See Instructions, Topical BID as needed for yeast, # 30 g, 0 Refill(s), Pharmacy: [facility], 155, cm, 09/23/21 4:52:00 EDT, Height/Length Dosing, 125, kg, 09/23/21 4:52:00 EDT, Weight Dosing Start Date: 11/21/21 Status: Ordered ONETOUCH ULTRA2 GLUCOSE SYST ONETOUCH ULTRA2 GLUCOSE SYST, See Instructions, USE TO TEST GLUCOSE LEVELS ONCE DAILY, # 1 EA, 0 Refill(s), Pharmacy: [email or web address] #58, 157, cm, 02/14/23 11:37:00 EST, Height, [...] instructions, # 100 EA, 3 Refill(s), Pharmacy: [email or web address]58 Start Date: 12/04/22 Status: Ordered tobramycin 0.3% ophthalmic solution 1 drops, Eye-Both, QID, # 5 mL, 0 Refill(s), Pharmacy: [email or web address] #58, 157, cm, 04/22/22 20:46:00 EST, Height/Length Dosing, 122.47, kg, 04/22/22 20:46:00 EST, Weight Dosing Start Date: 06/13/22 Stop Date: 06/20/22 Status: Ordered torsemide 20 mg oral tablet 20 mg = 1 tab, Oral, Daily, # 90 tab, 4 Refill(s), Pharmacy: [facility] #58, 157, cm, 04/22/22 20:46:00 EST, Height/Length Dosing, 122.47, kg, 04/22/22 20:46:00 EST, Weight Dosing Start Date: 07/04/22 Status: Ordered triamcinolone 0.1% topical cream 1 che, Topical, TID, PRN not specified, Apply to affected areas as needed., # 30 g, 0 Refill(s), Pharmacy: [facility], 155, cm, 09/23/21 4:52:00 EDT, [...] information Care Team Personnel Name: Dandy Driscoll MEAT PACKAGER Position: Physician Member Role: Informed Provider Address: Address: [address] Name: Kinsey Patiño Position: Ambulatory - RN/SELF DEFENSE INSTRUCTOR (Franck) Member Role: Retail Seasonal Specialist Care Team Related Persons Name: ASH QUINTANA
--- OUTSIDE RECORDS SUMMARY | 2024-02-27 19:32 | XMS_ITS | Continuity of Care Document ---
Author Organization [facility] Address [address] [place] [address] Care Team Providers Care Tallow Pumper Name Role Phone Dandy Driscoll Carola Primary Care Physician [facility] - 03/20/[address] [address] Discharge Disposition: Home or Self Care Attending Physician: Paco Sheppard MD Admitting Physician: Paco Sheppard MD Allergies, Adverse Reactions, Alerts Substance Reaction Severity Status ALCOHOL 1 Moderate Active meperidine Bewilderment Unknown Active azithromycin Swollen face Unknown Active penicillins Swelling Other Unknown Active tetanus toxoids Unknown Active Tape 2 Unknown Severe Active 1Rubbing 2Outside Source Comment: Rips the skin off when removing Assessment and Plan Future Appointments Diagnostic Tests Pending * Surgical Pathology [facility] 03/20/23 Future Scheduled Tests Laboratory* Hemoglobin A1c 12/04/22 [...] rded pneumococcal 23-polyvalent vaccine 02/13/08 Record ed VMJC-RhU-6-mRNA-1273 (booster only) vacc 09/23/21 Recorded QCCM-RnO-5-mRNA-1273 (booster only) vacc 07/09/20 Recorded influenza, unspecified formulation 01/07/21 Record ed influenza, unspecified formulation 01/02/20 Record ed influenza, unspecified formulation 02/06/19 Record ed influenza, unspecified formulation 01/22/18 Record ed SARS-CoV-2 (COVID-19) mRNA-1273 vaccine 07/09/20 R ecorded SARS-CoV-2 (COVID-19) mRNA-1273 vaccine 06/11/20 R ecorded SARS-CoV-2 (COVID-19) mRNA-1273 vaccine 3 06/11/20 Recorded pneumococcal 13-valent conjugate vaccine 02/06/19 Recorded zoster vaccine live 01/22/13 Recorded Novel [id number], all formulation 04/29/09 Recorded pneumococcal 7-valent vaccine 04/09/00 Recorded Not Given Vaccine Date Status Refusal Reason Td(adult) unspecified formulation 4 04/27/20 Not G iven Patient Refuses 1Result Comment: Given at the pharmacy-see record 2Result Comment: [facility] pharmacy 3Result Comment: 1st vaccine 4Result Comment: Last Modified by Azra Dykes, Aquatic Performer 04-27-2020, 11:54 Medications !-DuoNeb 0.5 mg-2.5 mg/3 mL inhalation solution 3 mL, NEB, QID, # 120 EA, 0 Refill(s), Pharmacy: [facility], 157, cm, 04/21/22 4:43:00 EST, Height/Length [...] hr, # 240 cap, 0 Refill(s), Pharmacy: [facility], 157, cm, 02/27/23 9:53:00 EST, Height, 118.55, kg, 03/02/23 12:53:00 EST, Weight Dosing Start Date: 03/02/23 Status: Ordered Acidophilus oral capsule 0 Refill(s) Start Date: 10/27/21 Status: Ordered Advair Diskus 500 mcg-50 mcg inhalation powder 1 puffs, Inhale, BID, # 28 EA, 4 Refill(s), Pharmacy: [facility], 157, cm, 04/22/22 20:46:00 EST, Height/Length Dosing, 122.47, kg, 04/22/22 20:46:00 EST, Weight Dosing Start Date: 05/11/22 Status: Ordered Albuterol (Eqv-ProAir HFA) 90 mcg/inh inhalation aerosol 180 mcg 2 puffs, Inhale, every 4 hr, PRN as needed for wheezing, # 8.5 g, 2 Refill(s), Pharmacy: Pharmacy, 155, cm, 09/23/21 4:52:00 EDT, Height/Length Dosing, 125, kg, 09/23/21 4:52:00 EDT, Weight Dosing Start Date: 11/21/21 Status: Ordered albuterol 2.5 mg/3 mL (0.083%) inhalation solution 2.5 mg = 3 mL, NEB, every 4 hr, PRN as needed for wheezing, # 180 mL, 3 Refill(s), Pharmacy: [facility], 157, cm, 04/21/22 4:43:00 EST, Height/Length [...] BID, # 20 tab, 0 Refill(s), Pharmacy: [facility], 157, cm, 02/27/23 9:53:00 EST, Height, 118.55, kg, 03/02/23 12:53:00 EST, Weight Dosing Start Date: 03/02/23 Stop Date: 03/12/23 Status: Ordered buPROPion 300 mg/24 hours (XL) oral tablet, extended release 300 mg = 1 tab, Oral, Daily, # 90 tab, 2 Refill(s), Pharmacy: Pharmacy, 155, cm, 09/23/21 4:52:00 EDT, Height/Length [...] instructions, # 1 EA, 0 Refill(s), [facility] Start Date: 12/04/22 Status: Ordered lancets lancets, tests blood sugar once daily, Supply, See instructions, # 100 EA, 3 Refill(s), Pharmacy: [facility] Start Date: 12/04/22 Status: Ordered loperamide 2 mg oral capsule 2 mg = 1 cap, Oral, TID, PRN as needed for loose stool, # 270 cap, 1 Refill(s), Pharmacy: Pharmacy, 155, cm, 09/23/21 4:52:00 EDT, Height/Length Dosing, 125, kg, 09/23/21 4:52:00 EDT, Weight Dosing Start Date: 11/21/21 Status: Ordered Myrbetriq 25 mg oral tablet, extended release 25 mg = 1 tab, Oral, Daily, do not crush or chew; total daily dose 75 mg (50 + 25), # 90 tab, 3 Refill(s), Pharmacy: [facility], 157, cm, 02/27/23 9:53:00 EST, Height, [...] chew, # 90 tab, 3 Refill(s), Pharmacy: [facility], 157, cm, 02/27/23 9:53:00 EST, Height, 118.55, [...] BID, # 60 tab, 1 Refill(s), Pharmacy: Pharmacy, 155,cm, 09/23/21 4:52:00 EDT, Height/Length Dosing, 125, kg, 09/23/21 4:52:00 EDT, Weight Dosing Start Date: 11/21/21 Status: Ordered Nyamyc 100,000 units/g topical powder See Instructions, Topical BID as needed for yeast, # 30 g, 0 Refill(s), Pharmacy: Pharmacy, 155, cm, 09/23/21 4:52:00 EDT, Height/Length Dosing, 125, kg, 09/23/21 4:52:00 EDT, Weight Dosing Start Date: 11/21/21 Status: Ordered ONETOUCH ULTRA2 GLUCOSE SYST ONETOUCH ULTRA2 GLUCOSE SYST, See Instructions, USE TO TEST GLUCOSE LEVELS ONCE DAILY, # 1 EA, 0 Refill(s), Pharmacy: [facility], 157, cm, 02/14/23 11:37:00 EST, Height, [...] instructions, # 100 EA, 3 Refill(s), Pharmacy: [facility] Start Date: 12/04/22 Status: Ordered tobramycin 0.3% ophthalmic solution 1 drops, Eye-Both, QID, # 5 mL, 0 Refill(s), Pharmacy: [facility], 157, cm, 04/22/22 20:46:00 EST, Height/Length Dosing, 122.47, kg, 04/22/22 20:46:00 EST, Weight Dosing Start Date: 06/13/22 Stop Date: 06/20/22 Status: Ordered torsemide 20 mg oral tablet 20 mg = 1 tab, Oral, Daily, # 90 tab, 4 Refill(s), Pharmacy: [facility], 157, cm, 04/22/22 20:46:00 EST, Height/Length Dosing, 122.47, kg, 04/22/22 20:46:00 EST, Weight Dosing Start Date: 07/04/22 Status: Ordered triamcinolone 0.1% topical cream 1 che, Topical, TID, PRN not specified, Apply to affected areas as needed., # 30 g, 0 Refill(s), Pharmacy: Pharmacy, 155, cm, 09/23/21 4:52:00 EDT, Height/Length [...] a Covid PCR test this afternoon. 3per [facility] [place]o note Procedures Procedure [...] information Care Team Personnel Name: Dandy Driscoll SCHOOL ADJUSTMENT COUNSELOR Position: Physician Member Role: Informed Provider Address: Address: [address] Name: Kinsey Patiño Position: Ambulatory - RN/IMPERSONATOR CHARACTER (Franck) Member Role: Piper Helper Care Team Related Persons Name: ASH QUINTANA
--- OUTSIDE RECORDS SUMMARY | 2024-02-27 19:32 | XMS_ITS | Continuity of Care Document ---
Author Organization [facility] Address [address] [place] [address] Care Team Providers Care Travel Professional Name Role Phone Dandy Driscoll Primary Care Physician Encounter [facility] Date(s): 04/06/22 - 04/06/[address] [address] Discharge Disposition: Home or Self Care Attending Physician: Nathaniel Moreno NP Admitting Physician: Nathaniel Moreno PULP DRIER Allergies, Adverse Reactions, Alerts Substance Reaction Severity Status ALCOHOL 1 Unknown Active meperidine Bewilderment Unknown Active azithromycin Swollen face Unknown Active penicillins Swelling Other Unknown Active tetanus toxoids Unknown Active 1Rubbing Assessment and Plan Future Appointments Diagnostic Tests Pending * Urine Culture 04/06/22 Immunizations Given and Recorded Vaccine Date Status Refusal Reason pneumococcal 23-polyvalent vaccine 1 09/23/21 Bc rded pneumococcal 23-polyvalent vaccine 02/13/08 Record ed MUMB-WtI-3-mRNA-1273 (booster only) vacc 09/23/21 Recorded CCWO-KjT-1-mRNA-1273 (booster only) vacc 07/09/20 Recorded influenza, unspecified [...] rded zoster vaccine live 01/22/13 Recorded Novel Aeskhkuzb-D3O3-21, all formulation 04/29/09 Recorded pneumococcal 7-valent vaccine 04/09/00 Recorded Not Given Vaccine Date Status Refusal Reason Td(adult) unspecified formulation 3 04/27/20 Not G iven Patient Refuses 1Result Comment: [facility] pharmacy 2Result Comment: 1st vaccine 3Result Comment: Last Modified by Azra Dykes, Scanner Supervisor 04-27-2020, 11:54 Medications Acidophilus oral capsule 0 Refill(s) Start Date: 10/27/21 Status: Ordered Advair Diskus 500 mcg-50 mcg inhalation powder 1 puffs, Inhale, BID, # 28 EA, 4 Refill(s), Pharmacy: [facility], 155, cm, 09/23/21 4:52:00 EDT, Height/Length Dosing, 125, kg, 09/23/21 4:52:00 EDT, Weight Dosing Start Date: 11/24/21 Status: Ordered Albuterol (Eqv-ProAir HFA) 90 mcg/inh inhalation aerosol 180 mcg 2 puffs, Inhale, every 4 hr, PRN as needed for wheezing, # 8.5 g, 2 Refill(s), Pharmacy: [facility], 155, cm, 09/23/21 4:52:00 EDT, [...] # 90 tab, 2 Refill(s), Pharmacy: [facility], 155, cm, 09/23/21 4:52:00 EDT, [...] # 90 tab, 2 Refill(s), Pharmacy: [facility], 155, cm, 09/23/21 4:52:00 EDT, Height/Length Dosing, 125, kg, 09/23/21 4:52:00 EDT, Weight Dosing Start Date: 11/21/21 Status: Ordered loperamide 2 mg oral capsule 2 mg = 1 cap, Oral, TID, PRN as needed for loose stool, # 270 cap, 1 Refill(s), Pharmacy: [facility], 155, cm, 09/23/21 4:52:00 EDT, Height/Length Dosing, 125, kg, 09/23/21 4:52:00 EDT, Weight Dosing Start Date: 11/21/21 Status: Ordered naproxen 500 mg oral tablet 500 mg = 1 tab, Oral, BID, # 60 tab, 1 Refill(s), Pharmacy: [facility], 155,cm, 09/23/21 4:52:00 EDT, Height/Length Dosing, 125, kg, 09/23/21 4:52:00 EDT, Weight Dosing Start Date: 11/21/21 Status: Ordered Nyamyc 100,000 units/g topical powder See Instructions, Topical BID as needed for yeast, # 30 g, 0 Refill(s), Pharmacy: [facility], 155, cm, 09/23/21 4:52:00 EDT, Height/Length Dosing, 125, kg, 09/23/21 4:52:00 EDT, Weight Dosing Start Date: 11/21/21 Status: Ordered torsemide 10 mg oral tablet 10 mg = 1 tab, Oral, Daily, # 30 tab, 0 Refill(s), Pharmacy: [id number], 155, cm, 09/23/21 4:52:00 EDT, Height/Length Dosing, 125, kg, 09/23/21 4:52:00 EDT, Weight Dosing Start Date: 04/06/22 Status: Ordered triamcinolone 0.1% topical cream 1 che, Topical, TID, PRN not specified, Apply to affected areas as needed., # 30 g, 0 Refill(s), Pharmacy: [facility], 155, cm, 09/23/21 4:52:00 EDT, [...] a Covid PCR test this afternoon. 3per [facility] [place] Procedures Procedure Date Related Diagnosis [...] in 2013 Results Laboratory List Name Date .Urinalysis POCT 04/06/22 Urinalysis Microscopic 04/06/22 Most recent to oldest [Reference Range]: 1 UA WBC [0-3] 0-3 (04/06/22 2:01 PM) UA Ca Ox Crystal Rare /HPF (04/06/22 2:01 PM) UA RBC [0-2] 0-2 (04/06/22 2:01 PM) UA Bacteria Moderate /HPF *ABN* (04/06/22 2:01 PM) UA Mucous Rare /HPF *ABN* (04/06/22 2:01 PM) UA Squam Epithelial [None Seen] Rare (04/06/22 2:01 PM) UA Culture Ind?. Indicated (04/06/22 2:01 PM) UA Amorph Rare /HPF (04/06/22 2:01 PM) Method of Collect POC Clean Catch *NA* (04/06/22 2:01 PM) Specific Gilbert, Ur POC 1.025 *NA* (04/06/22 2:01 PM) Specimen Color POC Yellow *NA* (04/06/22 2:01 PM) Glucose, Urine POC [Negative] Negative (04/06/22 2:01 PM) Bilirubin, Urine POC [Negative] Negative (04/06/22 2:01 PM) Ketones, Urine POC [Negative] Negative (04/06/22 2:01 PM) Blood, Urine POC [Negative] Trace *ABN* (04/06/22 2:01 PM) pH, Urine POC 5.5 *NA* (04/06/22 2:01 PM) Protein, Urine POC [Negative] Negative (04/06/22 2:01 PM) Urobilinogen, Urine POC Normal (04/06/22 2:01 PM) Nitrite, Urine POC [Negative] Negative (04/06/22 2:01 PM) Leuk Esterase, Urine POC [Negative] Nega tive (04/06/22 2:01 PM) Clarity, Urine POC [Clear] Clear (04/06/22 2:01 PM) Social History Social History Type Response Tobacco Never tobacco user T obacco Use:. Sex Female Patient Care team information Personnel Name: Dandy Driscoll NP Address: Address: [address] [address]- [place]
--- OUTSIDE RECORDS SUMMARY | 2024-02-27 19:32 | XMS_ITS | Encounter Summary ---
Author Organization [facility] Address [address] [place] [address] Care Team Providers Care Local Government Legislator Name Role Phone Unknown, Provider MD Unavailable Unavailable Dandy Driscoll APRN Primary Care Provider [phone] Encounter Details Date Type Department Care Team (Late st Contact Info) Description 10/01/[address] [facility] Pathology & Laboratory Medicine - [facility] [address] [place] [address] Hugh Fuller MD [address] [facility], [address] [place] [address] Encounter for other general examination Social History Tobacco Use Types Packs/Day Years [...] Procedure Name Priority Date/Time Associated Diagnosis Comments OUTSIDE CASE REVIEW Today 10/01/2023 1 2:57 EDT Encounter for other general examination documented in this encounter Results * OUTSIDE CASE REVIEW (10/01/2023 12:57 EDT) Final Diagnosis OUTSIDE SLIDES [facility] [id number] (1), PROCEDURE DATE 09/18/2023 ENDOMETRIUM, BIOPSY: -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 The neoplastic epithelium has histologic features consistent with exogenous progestin effect. Abundant fragments of squamous differentiation are present in the background, along with abundant blood and necroinflammatory debris. 10/02/2023 13:27 [facility] Attestation By the signature below, the attending physician certifies that they have 1) personally conducted a gross and/or microscopic examination of the described specimen(s), and/or personally interpreted the results of laboratory testing of the described specimen(s), and 2) personally rendered or confirmed the above diagnosis. 10/02/2023 13:27 [facility] at 1327 Clinical History Endometrial intraepithelial neoplasia 10/02/2023 13:27 [facility] Gross Description A. One slide is are received for review from [facility] labelled [id number]. 10/02/2023 13:27 [facility] Scanned Images 10/02/2023 13:27 [facility] Tissue ENDOMETRIAL STRUCTURE / Unknown 10/01/2023 12:57 EDT 10/01/2023 12:57 EDT us Hugh Fuller MD PATHOLOGY ORDERABLES Final R esult [facility] [address] [place] [address] documented in this encounter Visit Diagnoses Diagnosis Encounter for other general examination documented in this encounter Care Teams Local Government Legislator Relationship Specialty Start Date End Date Dandy Driscoll APRN [address] [place] [address] [address] [place], [place] [address] PCP - General 03/09/23 Unknown, Provider, 10/31/18 documented as of this encounter
--- OUTSIDE RECORDS SUMMARY | 2024-02-27 19:32 | XMS_ITS | Encounter Summary ---
Author Organization [facility] Address [address] [place] [address] Care Team Providers Care Loss Prevention Lead Name Role Phone Unknown, Provider Unavailable Unavailable Dandy Driscoll APRN Primary Care Provider [phone] Encounter Details Date Type Department Care Team (Late st Contact Info) Description 10/15/2023 Abstract [facility] OBGYN Services - [facility] [address] [place], [place] [address] Hugh Fuller MD [address] [facility], [address] [place] [address] Social History Tobacco Use Types Packs/Day Years [...] on filedocumented in this encounter Care Teams Loss Prevention Lead Relationship Specialty Start Date End Date Dandy Driscoll APRN [address] [place] [address] [address] [place] [address] PCP - General 03/09/23 Unknown, ProviderMD 10/31/18 documented as of this encounter
--- OUTSIDE RECORDS SUMMARY | 2024-02-27 19:32 | XMS_ITS | Encounter Summary ---
Author Organization [facility] Address [address] [place] [address] Care Team Providers Care Flight Radio Officer Name Role Phone Unknown, Provider MD Primary Care Provider Unava ilable Unknown, Provider Unavailable Unavailable Dandy Driscoll APRN Primary Care Provider [phone] Encounter Details Date Type Department Care Team (Late st Contact Info) Description 07/07/2021 Lab Requisition [facility] Pathology & Laboratory Medicine - [facility] [address] [place] [address] Outr Resulting Lab, Provider Social History Tobacco Use Types Packs/Day Years [...] Procedure Name Priority Date/Time Associated Diagnosis Comments ZZCOVID-19 TEST [facility] PCR Today 07/07/2021 14:20 EDT COVID-19 TESTING Routine 07/07/2021 14:2 0 EDT documented in this encounter Results * COVID-19 TEST [facility] PCR (07/07/2021 14:20 EDT) Swab 07/07/2021 14:2 0 EDT 07/07/2021 21:05 EDT us Provider Outr Resulting Lab MICROBIOLOGY - GENER AL ORDERABLES Final Result Performing Organization Address [facility] Co de Phone Number [facility] [address] [place] [address] * COVID-19 TESTING (07/07/2021 14:20 EDT) COVID-19 rt-PCR Result Negative Negative 07/08/2021 15:39 EDT [facility] Comment: This test has not been FDA cleared or approved. This test has been authorized by FDA under an EUA for use by authorized laboratories. This test has been authorized only for detection of nucleic acid from 2019-nCoV, not for any other viruses or pathogens. This test is only authorized for the duration of the declaration that circumstances exist justifying the authorization of emergency use of in vitro diagnostic tests for detection and/or diagnosis of 2019-nCoV under section 564(b)(1) of Act, 21 U.S.C ?? 360bbb-3(b) (1), unless the authorization is terminated or revoked sooner. Negative results do not preclude 2019-nCoV infection and should not be used as the sole basis for treatment or other patient management decisions. Negative results must be combined with clinical observations, patient history, and epidemiological information. Testing was performed using the beth SARS-CoV-2 assay ([employer] on the Beth 6800 System Performing Lab Beth [address] [facility] Lab 07/08/2021 15:39 EDT [facility] Swab 07/07/2021 14:2 0 EDT 07/07/2021 21:05 EDT us Provider Outr Resulting Lab MICROBIOLOGY - GENER AL ORDERABLES Final Result Performing Organization Address [facility]/ZIP Co de Phone Number [facility] [address] [place] [address] documented in this encounter Visit Diagnoses Not on filedocumented in this encounter Care Teams Flight Radio Officer Relationship Specialty Start Date End Date Unknown, Provider, PCP - General 10/31/18 03/08/23 Dandy Driscoll APRN [address] [place] [address] [address] [place] [address] PCP - General 03/09/23 Unknown, Provider, 10/31/18 documented as of this encounter
--- OUTSIDE RECORDS SUMMARY | 2024-02-27 19:32 | XMS_ITS | Encounter Summary ---
Author Organization [facility] Address [address] [place] [address] Care Team Providers Care Engine Turner Name Role Phone Unavailable Primary Care Provider Unavailabl e Encounter Details Date Type Department Care Team (Late st Contact Info) Description 07/25/2000 Results Only [facility] - [facility] [address] [place] [address] Armaan Palafox MD [facility] [place] [address] Social History Tobacco Use Types Packs/Day Years [...] Priority Date/Time Associated Diagnosis Comments CYTOPATHOLOGY Routine 07/25/2000 0:00 EDT documented in this encounter Results * CYTOPATHOLOGY (07/25/2000 0:00 EDT) Pathology Report: CYTOPATHOLOGY REPORT Reports generated via electronic interface contain original data; however they are lacking the format of the original report. Caution should be taken when reading/interpreti ng unformatted reports. Name: ? SURYA KNIGHT ? Accession #: ? [id number] : ? 1950 (Age: 50) ??F ?Collect Date: ? 07/25/2000 Location: ? [facility] ? Receive Date: ? 07/30/2000 Provider: ?ARMAAN PALAFOX MD Copy to: ? Specimen/Source: ?Conventional Pap Test, Vag/Cx/Endo Last Menstrual Period: ? 03 ? SPECIMEN ADEQUACY ? Satisfactory for evaluation. GENERAL CATEGORIZATION ? Within Normal Limits ? Document reviewed and electronically signed by: ? Josephine Boyer, ??SCT(ASCP) ? Report Date: ??08/01/2000 10:42 End of Report [facility] 07/25/2000 07/30/2000 us Armaan Palafox MD PATHOLOGY ORDERABLES Final Resul t [facility] [address] [place] [address] documented in this encounter Visit Diagnoses Not on filedocumented in this encounter
--- OUTSIDE RECORDS SUMMARY | 2024-02-27 19:32 | XMS_ITS | Encounter Summary ---
Author Organization [facility] Address [address] [place] [address] Care Team Providers Care Fur Drummer Name Role Phone Unknown, Provider Primary Care Provider Unava ilable Encounter Details Date Type Department Care Team (Late st Contact Info) Description 10/25/2018 Results Only [facility] [phone] Rosemarie Mejia MD [address] [place] [id number] Social History Tobacco Use Types Packs/Day Years [...] Date/Time Associated Diagnosis Comments SURGICAL PATHOLOGY Routine 10/25/2018 7:32 EDT documented in this encounter Results * SURGICAL PATHOLOGY (10/25/2018 7:32 EDT) Pathology Report: SURGICAL PATHOLOGY REPORT Reports generated via electronic interface contain original data; however they are lacking the format of the original report. Caution should be taken when reading/interpret ing unformatted reports. Name: ? SURYA KNIGHT ? Accession #: ? [id number] ? : ? 1950 (Age: 68) ??F ? Collect Date: ? 10/25/2018 ? Location: ? [facility] ? Receive Date: ? 10/25/2018 ? Provider: ROSEMARIE MEJIA MD Copy to: ? Final Pathologic Diagnosis: A. COLON, ASCENDING AND TRANSVERSE RANDOM BIOPSIES: - Colonic mucosa showing no specific pathologic features. B. SMALL INTESTINE, TERMINAL ILEUM, BIOPSIES: - Ileal mucosa showing no specific pathologic features. C. COLON, ASCENDING, POLYP, BIOPSY: - Tubular adenoma. D. COLON, TRANSVERSE, POLYP, BIOPSY: - Tubular adenoma. E. COLON, DESCENDING, SIGMOID, RECTAL BIOPSIES: - Colorectal mucosa showing no specific pathologic features. Document reviewed and electronically signed by: DEMAR MANN MD Report ??Date: 10/30/2018 17:02 By the signature above, the attending physician certifies that he/she has personally conducted a gross and/or microscopic examination of the described specimens and rendered or confirmed the above diagnosis. Specimen(s) Received: A. ??Ascending and transverse random mucosal biopsies B. ??Terminal ileum biopsies C. ??Ascending colon polyp D. ??Transverse colon polyp E. ??Descending, sigmoid, rectal mucosal biopsies Clinical History: Not listed Gross Description: A. ?Received in formalin labelled with proper patient identification (initials B, A) and ascending + transverse random mucosal biopsies are three pink-garcia tissues (0.2 x 0.2 x 0.2 cm, 0.3 x 0.2 x 0.2 cm and 0.4 x 0.2 x 0.2 cm). Entirely submitted in A1. B. ?Received in formalin labelled with proper patient identification (initials B, A) and terminal ileum biopsies is a single pink-garcia tissue fragment (0.3 x 0.3 x 0.2 cm). Submitted intact in B1. C. ?Received in formalin labelled with proper patient identification (initials B, A) and ascending colon polyps are three pink-garcia tissues (each averaging 0.2 x 0.2 x 0.2 cm). Entirely submitted in C1. D. ?Received in formalin labelled with proper patient identification (initials B, A) and transverse colon polyp is a single pink-garcia tissue fragment (0.3 x 0.2 x 0.2 cm). Submitted intact in D1. E. ?Received in formalin labelled with proper patient identification (initials B, A) and descending sigmoid rectal mucosal biopsies are six pink-garcia tissues (0.1 x 0.1 x 0.1 cm to 0.4 x 0.2 x 0.2 cm). Entirely submitted in E1-E2. DEBRA Gonzalez (ASCP) 10/28/2018 8:04 AM End of Report [facility] 10/25/2018 7:32 EDT 10/25/2018 7:32 EDT us Rosemarie Mejia MD PATHOLOGY ORDERABLES Fi nal Result [facility] [address] [place] [address] documented in this encounter Visit Diagnoses Not on filedocumented in this encounter Care Teams Fur Drummer Relationship Specialty Start Date End Date Unknown, Provider, PCP - General 05/05/14 10/30/18 documented as of this encounter
--- OUTSIDE RECORDS SUMMARY | 2024-02-27 19:32 | XMS_ITS | Encounter Summary ---
Author Organization [facility] Address [address] [place] [address] Care Team Providers Care Bmet Name Role Phone Unknown, Provider Primary Care Provider Unava ilable Unknown, Provider Unavailable Unavailable Dandy Driscoll APRN Primary Care Provider [phone] Encounter Details Date Type Department Care Team (Late st Contact Info) Description 11/06/2019 Lab Requisition [facility] Pathology & Laboratory Medicine - [address] [address] Outr Resulting Lab, Provider Social History Tobacco [...] Procedure Name Priority Date/Time Associated Diagnosis Comments DO NOT ORDER STANDALONE - BROAD COVID TEST Today 11/06/2019 9:33 EDT COVID-19 TESTING Routine 11/06/2019 9:33 EDT documented in this encounter Results * DO NOT ORDER STANDALONE - BROAD COVID TEST (11/06/2019 9:33 EDT) COVID-19 rt-PCR Result NEGATIVE Negative 11/08/2019 1:18 EDT [facility] Comment: 2019-novel Coronavirus (2019-nCoV) not detected by the qRT-PCR assay. Consider testing for other respiratory viruses or re-collecting for 2019-nCoV testing. Note: Optimum timing for peak viral levels during infections caused by 2019-nCoV have not been determined. Collection of multiple specimens from the same patient may be necessary to detect the virus. Limitations Positive results are indicative of active infection with SARS-CoV-2 but do not rule out bacterial infection or co-infection with other viruses. The agent detected may not be the definite cause of disease. In addition, detection of viral RNA may not indicate the presence of infectious virus or that SARS-CoV-2 is the causative agent for clinical symptoms. Negative results do not preclude SARS-CoV-2 infection and should not be used as the sole basis for patient management decisions. Negative results must be combined with clinical observations, patient history, and epidemiological information. False negative results may also occur if amplification inhibitors are present in the specimen or if inadequate numbers of organisms are present in the specimen. Optimum specimen types and timing for peak viral levels during infections caused by SARS-CoV-2 have not been fully determined. Collection of multiple specimens (types and time points) from the same patient may be necessary to detect the virus. The test was validated for use with upper respiratory specimens obtained via nasopharyngeal or oropharyngeal swabs in VTM, UTM, M4, M5, M6, saline, and MTM media. The performance of this test has not been established for other specimens. Specimens collected using other FDA recommended Specimen Collection Materials listed in the FDA COVID-19 [employer] communication (July 03, 2019) are processed with the caveat that they were not all validated for use with this test and the result must be interpreted in this context. Furthermore, a false negative results may occur if a specimen is improperly collected, transported or handled. If the virus mutates in the RT-PCR target region, SARS-CoV-2 may not be detected or may be detected less predictably. Inhibitors or other types of interference may produce a false negative result. An interference study evaluating the effect of common cold medications was not performed. This test is not FDA-cleared but its performance characteristics were established by our CLIA-certified, CAP-accredited, high complexity laboratory in accordance with CLIA regulations, [employer] [place] (CAP) guidelines (Jun 26, 2019), and FDA guidance (Jun 07, 2019). This test is only for use under the Food and Drug Administration's Emergency Use Authorization. Swab ENTIRE NASOPHARYNX / Unknown 11/06/2019 9:33 EDT 11/06/2019 16:50 EDT us Provider Outr Resulting Lab MICROBIOLOGY - GENER AL ORDERABLES Final Result [facility] [place], [place] * COVID-19 TESTING (11/06/2019 9:33 EDT) [facility] COVID-19 rt-PCR Result NEGATIVE Negative 11/08/2019 2:18 EDT [facility] Comment: 2019-novel Coronavirus (2019-nCoV) not detected by the qRT-PCR assay. Consider testing for other respiratory viruses or re-collecting for 2019-nCoV testing. Note: Optimum timing for peak viral levels during infections caused by 2019-nCoV have not been determined. Collection of multiple specimens from the same patient may be necessary to detect the virus. Limitations Positive results are indicative of active infection with SARS-CoV-2 but do not rule out bacterial infection or co-infection with other viruses. The agent detected may not be the definite cause of disease. In addition, detection of viral RNA may not indicate the presence of infectious virus or that SARS-CoV-2 is the causative agent for clinical symptoms. Negative results do not preclude SARS-CoV-2 infection and should not be used as the sole basis for patient management decisions. Negative results must be combined with clinical observations, patient history, and epidemiological information. False negative results may also occur if amplification inhibitors are present in the specimen or if inadequate numbers of organisms are present in the specimen. Optimum specimen types and timing for peak viral levels during infections caused by SARS-CoV-2 have not been fully determined. Collection of multiple specimens (types and time points) from the same patient may be necessary to detect the virus. The test was validated for use with upper respiratory specimens obtained via nasopharyngeal or oropharyngeal swabs in VTM, UTM, M4, M5, M6, saline, and MTM media. The performance of this test has not been established for other specimens. Specimens collected using other FDA recommended Specimen Collection Materials listed in the FDA COVID-19 [employer] communication (July 03, 2019) are processed with the caveat that they were not all validated for use with this test and the result must be interpreted in this context. Furthermore, a false negative results may occur if a specimen is improperly collected, transported or handled. If the virus mutates in the RT-PCR target region, SARS-CoV-2 may not be detected or may be detected less predictably. Inhibitors or other types of interference may produce a false negative result. An interference study evaluating the effect of common cold medications was not performed. This test is not FDA-cleared but its performance characteristics were established by our CLIA-certified, CAP-accredited, high complexity laboratory in accordance with CLIA regulations, [employer] [place] (CAP) guidelines (Jun 26, 2019), and FDA guidance (Jun 07, 2019). This test is only for use under the Food and Drug Administration's Emergency Use Authorization. Performing Lab [facility] 11/08/2019 2:18 EDT [facility] Swab 11/06/2019 9:33 EDT 11/06/2019 16:50 EDT us Provider Outr Resulting Lab MICROBIOLOGY - GENER AL ORDERABLES Final Result [facility] [address] [place] [address] [facility] [place], [place] documented in this encounter Visit Diagnoses Not on filedocumented in this encounter Care Teams Bmet Relationship Specialty Start Date End Date Unknown, ProviderMD PCP - General 10/31/18 03/08/23 Dandy Driscoll APRN [address] [place] [address] [address] [place] [address] PCP - General 03/09/23 Unknown, MD Jessica 10/31/18 documented as of this encounter
--- OUTSIDE RECORDS SUMMARY | 2024-02-27 19:32 | XMS_ITS | Encounter Summary ---
Author Organization [facility] Address [address] [place] [address] Care Team Providers Care Grease Worker Name Role Phone Unknown, Provider MD Unavailable Unavailable Dandy Driscoll APRN Primary Care Provider [phone] Reason for Referral * Consult (Routine/Next Available) - Receiving Office to Obtain Authorization Specialty Diagnoses / Procedures Referred By Tiffanie foster Referred To Contact Diagnoses Endometrial hyperplasia Ngoc Pinto MD [address] [place] [address] [address] [place] [address] Phone: tel: fax: [facility] On[facility] - [address] [address] Phone: tel: fax: Referral ID Status Reason Start Date Expiration Date Visits Requested Visits Authorized [id number] Receiving Office to Obtain Authorization Specialty Services Required 4 1 1 Question Answer Housing Yes Transportation Yes Comments Breanna-see my note for additional details. The recommendation will be that she needs surgery so I am not sure how proactive we ca be with trying to set her up for success post operatively. She is going to be trying to discuss care needs with synagogue ladies for support Reason for Visit * Reason Onset Date Comments Coordination Of Care 09/19/2023 Encounter Details Date Type Department Care Team (Late st Contact Info) Description 09/19/2023 Telephone [facility] - [address] [address] Wendy Schrader, RN Coordination Of Care Social [...] Miscellaneous Notes * Telephone Encounter - Wendy Schrader RN - 09/19/2023 0138 EDT Patient aware pathology was reviewed at [facility] with the same impression as at [facility]. Patient seems eager to proceed with surgical approach as she is not wanting nursing home medication for symptom management. Stacy has several life factors that would warrant a referral to our healthcare social worker team to help identify potential needs and plan for a successful discharge to home post surgery if deemed appropriate by are team at [facility]. Social concerns include: Transportation-Stacy relies on [employer] for all transportation needs Food insecurity-relies on food shelf which she is able to get to once very 2 weeks. Meals on [employer] 4 meal per week Housing-lives alone with little support. Has a local healthcare social worker via [employer] (Yanelis Lang). Support-synagogue people and 1 local brother who plate is full with ill . Anabaptist people have not been able to offer assistance in past. Lives alone but does have life alert Regarding healthcare Stacy states I like to be told what is going on, don't over my head, and I want conversation about my care Stacy endorses mild vaginal bleeding megace 80 mg bid started with good effect. Stacy is encouraged to reach out with acute needs as needed and agrees and is aware of plan. 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 Hugh Fuller 10/17 at 10:30 organic lab worker referral to assist with identifying potential gaps in discharge plan if surgery deemed appropriate. documented in this encounter Plan of Treatment Scheduled Referrals Name Type Priority Associated Diagnoses Order Schedule [facility] Outpatient Referral Routine/Next Available Endometrial hyperplasia Expected: 10/19/2023 (Approximate), Expires: 09/18/2024 documented as of this encounter Visit Diagnoses Diagnosis Endometrial hyperplasia- Primary Endometrial hyperplasia, unspecified documented in this encounter Care Teams Grease Worker Relationship Specialty Start Date End Date Dandy Driscoll APRN [address] [facility] [address] [place] [address] PCP - General 03/09/23 Unknown, Provider, 10/31/18 documented as of this encounter
--- OUTSIDE RECORDS SUMMARY | 2024-02-27 19:32 | XMS_ITS | Encounter Summary ---
Author Organization [facility] Address [address] [place] [address] Care Team Providers Care Sonogram Technician Name Role Phone Unavailable Primary Care Provider Unavailabl e Encounter Details Date Type Department Care Team (Late st Contact Info) Description 12/09/2002 Results Only [facility] [address] [place] [address] Narendra Clifton NP [address] [place] [address] ,[address] [place] [address] Social History Tobacco Use Types Packs/Day Years [...] Priority Date/Time Associated Diagnosis Comments CYTOPATHOLOGY Routine 12/09/2002 0:00 EDT documented in this encounter Results * CYTOPATHOLOGY (12/09/2002 0:00 EDT) Pathology Report: CYTOPATHOLOGY REPORT Reports generated via electronic interface contain original data; however they are lacking the format of the original report. Caution should be taken when reading/interpreti ng unformatted reports. Name: ? SURYA KNIGHT ? Accession #: ? [id number] : ? 1950 (Age: 52) ??F ?Collect Date: ? 12/09/2002 Location: ? [facility] ? Receive Date: ? 12/11/2002 Provider: ?NARENDRA CLIFTON NP Copy to: ? Specimen/Source: ?ThinPrep Pap Test, Endocervix Last Menstrual Period: ? 06/08 Other: ? HPVA - HPV testing requested if ASC-US on the current ThinPrep Pap test. ? SPECIMEN ADEQUACY ? Satisfactory for Evaluation - transformation zone component present GENERAL CATEGORIZATION ? Negative for Intraepithelial Lesion or Malignancy INTERPRETATION ? Fungal organisms present morphologically consistent with Dorcas species. ? Document reviewed and electronically signed by: ? FARNAZ Ruvalcaba(ASCP) ? Report Date: ??12/15/2002 08:37 End of Report [facility] 12/09/2002 12/11/2002 us Narendra Clifton NP PATHOLOGY ORDERABLES Final Resul t [facility] [address] [place] [address] documented in this encounter Visit Diagnoses Not on filedocumented in this encounter
--- OUTSIDE RECORDS SUMMARY | 2024-02-27 19:32 | XMS_ITS | Clinical Summary ---
Author Organization [facility] Address [facility] [place] [address] Care Team Providers Care Semiconductor Equipment Technician Name Role Phone Dandy Driscoll APRN Primary Care Provider [phone] Allergies Active Allergy Reactions Criticality Noted Date Comments Adhesive Tape High 11/11/2020 Rips the skin off when removing Isopropyl Alcohol Rash Meperidine Hcl Other (See Comments) Very Loopy Penicillins Other (See Comments) SWELLS UP (age 15) ?? [facility] Penicillin Allergy Risk Assessment 11/05/2020: Low risk penicillin allergy. OK to receive full dose of cefazolin, cefuroxime, or any 3rd or 4th+ generation cephalosporin. [facility] Penicillin Allergy Risk Assessment 05/08/2023: Low risk penicillin allergy. OK to receive full dose of cefazolin, cefuroxime, or any 3rd or 4th+ generation cephalosporin. [facility] Clinic PLANT QUALITY MANAGER to place Allergy referral for formal penicillin allergy evaluation. ??Patient open to a phone consult from [facility]. Clinic Propoxyphene Hcl Itching Medications Medication Sig Dispensed Refills Start Date End Date Status levalbuteroL (XOPENEX HFA) 45 mcg/actuation HFA Aerosol Inhaler Inhale 2 puffs into the lungs every 4 hours as needed. Active Cranberry 1,000 mg Cap Take by mouth 2 times daily. Active buPROPion (WELLBUTRIN XL) 150 mg Tablet Extended Release 24 hr 300 mg daily. 12 11/13/2016 Active psyllium seed, with sugar, (METAMUCIL, SUGAR, ORAL) Take 1 Scoop by mouth 2 times daily as needed (constipation). Active augmented betamethasone dipropionate (DIPROLENE-AF) 0.05 % Ointment APPLY TOPICALLY OT THE AFFECTED AREA(S) TWICE WEEKLY. DO NOT EXCEED 45 GRAMS PER WEEK. TO REPLACE CLOBETASOL 6 01/07/2019 Active NYSTOP Powder APPLY POWDER TO THE ABDOMINAL PANNUS TOPICALLY TWICE DAILY 1 12/16/2018 Active calcium carbonate (Tums) 200 mg calcium (500 mg) Tablet, Chewable Take 3 tablets by mouth as needed for Heartburn. Active acetaminophen (Tylenol) 500 mg Tablet Take 2 tablets by mouth every 8 hours as needed for Pain. 01/26/2021 Active Lactase (Lactaid Fast Act) 9,000 unit Tablet Take 2 tablets by mouth 3 times daily (with meals). 01/26/2021 Active naproxen-capsicum oleoresin 500 mg- 0.025 % Kit Take 500 mg by mouth. 11/21/2021 Active albuteroL (Proventil, Ventolin) (2.5 mg/3 mL) (0.083 %) Solution for Nebulization 2.5 mg. 04/21/2022 Active ipratropium-albuteroL (Duoneb) 0.5 mg-3 mg(2.5 mg base)/3 mL Solution for Nebulization 3 mLs. 04/21/2022 Active torsemide (Demadex) 20 mg tablet Take 20 mg by mouth daily. Active sacubitriL-valsartan (Entresto) 24-26 mg tablet Take by mouth. 10/18/2022 Active aspirin EC 81 mg EC (DR) tablet Take 81 mg by mouth daily. Active lactobacillus (BACID) Capsule Take 1 tablet by mouth daily. Active UNABLE TO FIND AZO-Yeast Active loperamide (IMODIUM A-D) 2 mg Tablet Take 2 tablets by mouth 4 times daily as needed. Active budesonide-formoteroL (Symbicort) 80-4.5 mcg/actuation inhaler (HFA) Inhale 2 puffs into the lungs 2 times daily. Active senna-docusate (Pericolace) 8.6-50 mg Tablet Take 1 tablet by mouth 2 times daily as needed for Constipation. Please use if taking your tramadol 02/08/2024 Active Active Problems Problem Noted Date Diagnosed Date Post-operative state 02/07/2024 EIN (endometrial intraepithelial neoplasia) 03/0 11/2023 Postoperative anemia due to acute blood loss S/P Right ENA, 01/19/21 (Dr Dumont) 01/19/2021 Morbid obesity with BMI of 40.0-44.9, adult 11/2017 Overview (02/14/2018): Body mass index is 43.42 kg/m??. 02/13/2018 S/P left total hip arthroplasty (Dr. Shanta cutler) 02/14/2018 Primary osteoarthritis of left hip 08/09/2017 Pain in left hip 07/13/2016 History of total right knee replacement, R TKA performed in 200101/20/2016 Tibial component revision L knee (11/11/2012, [place]) 11/07/2010 Impaired renal function 09/13/2010 Resolved Problems Problem Noted Date Diagnosed Date Resolved Date Primary osteoarthritis of right hip 05/29/2019 01/19/2021 Encounters Date Type Department Care Team Description 02/07/2024 4:33 PM EDT Anesthesia Event Main Operating Room [place] [phone] Robert Hall MD [place], [place], PLANT QUALITY MANAGER 02/07/2024 2:20 PM EDT - 02/07/2024 6:16 PM EDT [place] [phone] Tyler Mcconnell MD ROBOTIC LAPAROSCOPY,TOTAL HYST, UTERUS<250GM, REM TUBE &/OR OVARY (WRVU 15) 02/07/2024 1:23 PM EDT - 02/08/2024 10:47 AM EDT Hospital Encounter [place] [phone] Tyler Mcconnell MD Post-operative state; EIN (endometrial intraepithelial neoplasia); Morbid obesity with BMI of 40.0-44.9, adult Discharge Disposition: Home 02/06/2024 Telephone [place] [phone] Janette Michael RN 01/24/2024 1:35 PM EDT - 01/24/2024 11:59 PM EDT Hospital [place] [phone] Leslie Kingston MD Nonrheumatic aortic (valve) stenosis Discharge Disposition: Home 01/24/2024 12:54 PM EDT - 01/24/2024 1:34 PM EDT Hospital [place] [address] Tyler Mcconnell MD EIN (endometrial intraepithelial neoplasia) Discharge Disposition: Home 01/24/2024 12:10 PM EDT Laboratory Appointment Lab [address] [place] [phone] Acute diastolic heart failure 01/24/2024 Travel 01/23/[address] Scan at [place] [phone] Kaya Mary 01/22/2024 Telephone [place] [address] Janette Michael, RN 01/18/2024 Transcribe Orders Lab [address] [place] [phone] Leslie Kingston MD Acute diastolic heart failure 01/18/[address] [place] [phone] Monae Mckoy 01/15/2024 Notes [place] [address] June Allen, SHINGLES ROOFER 01/15/2024 Telephone [place] [address] Janette Michael, RN 01/14/2024 Notes Only [place] [address] Janette Michael, RN 01/11/2024 2:08 PM EDT - 01/11/2024 11:59 PM EDT Hospital Encounter Mobile [place] [address] Leslie Kingston MD Edema, unspecified type Discharge Disposition: Home 01/11/2024 External Results [place] [address] 01/08/2024 Telephone [place] [address] Poppy Fontenot, RN 01/07/2024 Notes [place] [address] June Allen, SHINGLES ROOFER 01/01/2024 9:00 AM EDT Office Visit [place] [phone] Tyler Mcconnell MD Endometrial cancer determined by uterine biopsy 01/01/2024 Travel 12/25/2023 Telephone [place] [address] Janette Michael, RN 12/21/2023 Telephone [place] [address] Janette Michael, RN 12/17/2023 Notes [place] [address] June Allen, SHINGLES ROOFER 12/14/2023 10:00 AM EDT TH Visit (TeleHealth) [place] [address] 12/14/2023 Telephone [place] [address] Poppy Fontenot, RN 12/14/2023 Telephone Obstetrics [place] [address] Hugh Phillips 12/13/2023 Telephone Obstetrics [place] [address] Hugh Phillips 12/07/2023 11:59 PM EDT Anesthesia [place] [facility] [place] [facility] [place] [address] Zenia Rice APRN 12/05/2023 Notes Only Care Management [facility] [place] [address] June Allen MSW 12/04/2023 8:20 AM EDT Office Visit Gynecology Oncology [place] [address] Tyler Mcconnell MD EIN (endometrial intraepithelial neoplasia) 12/04/2023 Travel from Last 3 Months Immunizations Name Administration Dates Next Due Influenza Unspecified Formulation 12/16/2016 Influenza Vaccine, Whole 12/29/2008 Family History Medical History Relation Comments Diabetes Brother Diabetes Father Thrombophilia Neg Hx Relation Status Comments Brother Father Social History Tobacco Use Types Packs/Day Years Used Date Smoking Tobacco: Former Cigarettes Q uit: 10/1978 Smokeless Tobacco: Never Alcohol Use Standard Drinks/Week Comments No 0 (1 standard drink = 0.6 oz pur e alcohol) [facility] Utilities Answer Date Recorded In the past 12 months has th e Stereotypes, gas, oil, or water Involver threatened to shut off services in your home? No 05/20/2023 Hunger Vital Sign Answer Date Recorded Within the past 12 months, y ou worried that your food would run out before you got the money to buy more. Never true 05/20/19 24 Within the past 12 months, t he food you bought just didn't last and you didn't have money to get more. Never true 05/20/2023 PRAPARE - Transportation Answer Date Re corded In the past 12 months, has l ack of transportation kept you from medical appointments or from getting medications? No 05/10 In the past 12 months, has l ack of transportation kept you from meetings, work, or from getting things needed for daily living? No 05/20/2023 Housing Stability Vital Sign Answer Kt e Recorded In the last 12 months, was t here a time when you were not able to pay the mortgage or rent on time? No 05/20/2023 In the last 12 months, how many places have you lived? 1 05/20/2023 In the last 12 months, was t here a time when you did not have a steady place to sleep or slept in a [place] (including now)? No 05/20/2023 [facility] Inpatient Questions Answer Date Recorded Does Anyone Try to Keep You From Having Contact with Others or Doing Things Outside Your Home? no 02/07/2024 Feels Threatened by Someone no 01/09 Feels Unsafe at Home or Work/School no 02/07/2024 Physical Signs of Abuse Present no 02/07/2024 Sex and Gender Information Value Date Recorded Sex Assigned at Not on file Gender Identity Not on file Sexual Orientation Not on file Last Filed Vital Signs Vital Sign Reading Time Taken Comments Blood Pressure 116/81 02/08/2024 7:29 AM EDT Pulse 78 02/07/2024 8:45 PM EDT Temperature 37.6 ??C (99.7 ??F) 02/08/2024 7:29 AM ED T Respiratory Rate 18 02/08/2024 2:45 AM EDT Oxygen Saturation 92% 02/08/2024 7:30 AM EDT Inhaled Oxygen Concentration - - Weight 123.4 kg (272 lb) 02/07/2024 2:12 PM EDT Height 157.5 cm (5' 2) 02/07/2024 2:12 PM EDT Body Mass Index 49.75 02/07/2024 2:12 PM EDT Plan of Treatment Upcoming Encounters Date Type Department Care Team (Late st Contact Info) Description 03/04/2024 12:00 PM EST Office Visit [place] [address] Tyler Mcconnell MD [facility] [place] [address] Health Maintenance Due Date Last Done Comments CT Colonography 1951 Colonoscopy 1951 Colorectal Cancer Screening 1951 FIT DNA 1951 FIT 1951 Sigmoidoscopy (10 year) with FIT yearly 1951 Sigmoidoscopy 1951 Hepatitis C Screening 1969 Lipid Screening 1969 Tetanus/Diphtheria/Pertussis Vaccines (1 - Tdap) 1970 Breast Cancer Share Decision Needed 1991 Breast Cancer screening 1991 Zoster vaccine (1 of 2) 2001 Advance Directive 2006 RSV Vaccine (1 - Risk 60-74 years 1-dose series) 2011 Bone Density Scan 2016 Pneumoccocal Vaccine: 65+ (1 of 1 - PCV) 2016 Covid-19 Vaccine (4 - 2023-2 5 season) 2023 09/23/2021, 07/09/2020, 06/11/2020 Influenza (Flu) vaccine (1 o f 1 - Influenza standard series) 12/09/2023 12/16/2016, 12/29/2008 Diabetes Screening (HgbA1C o r Glucose) Discontinued 01/24/2024, 05/08/2023, 05/08/2023, Additional history exists Medical Devices Implanted Type Area Deposition Operator Device Identifier Shelf Expiration Date Model / Serial / Lot Cement,Bne,Cm w 1,Gnta,40gm ([id number]) - [id number] Implanted:Qty : 1 on 11/11/2012 by Leslie Delcid MD at [facility] IMPLANTS Left: Knee DO NOT USE Depuy Urogynecology Physician - 3527 05/14/2015 5450-31-5 00 / / [id number] Tray,Tib,Mbt, Revsn,Cmnt,Sz 2.5 ([id number]) (Autoreq) - [id number] Implanted:Qty : 1 on 11/11/2012 by Leslie Delcid MD at [facility] IMPLANTS Left: Knee DO NOT USE Depuy Urogynecology Physician - 3527 09/11/2022 1294-35-1 25 / / [id number] Stem,Pfc,Sgm, Tib,Cmnt,13x3 0mm ([id number]) (Autoreq) - [id number] Implanted:Qty : 1 on 11/11/2012 by Leslie Delcid MD at [facility] IMPLANTS Left: Knee DO NOT USE Depuy Urogynecology Physician - 3527 06/11/2022 86-6401 / / [id number] Sleeve,Fmrl,M bt,Revsn,29x4 0mm ([id number]) (Autoreq) - [id number] Implanted:Qty : 1 on 11/11/2012 by Leslie Delcid MD at [facility] IMPLANTS Left: Knee DO NOT USE Depuy Urogynecology Physician - 3527 06/11/2022 1294-54-0 00 / / [id number] Inser,Pfc,Sgm ,Rp,Stab,Sz2. 5,10 ([id number]) (Autoreq) - [id number] Implanted:Qty : 1 on 11/11/2012 by Leslie Delcid MD at [facility] IMPLANTS Left: Knee DO NOT USE Depuy Urogynecology Physician - 3527 03/13/2017 [id number] / / [id number] Screw,Cacls,P nncl,6.5x30mm ([id number]) (Autoreq) - [id number] Implanted:Qty : 1 on 02/13/2018 by Patrick Dumont MD at [facility] IMPLANTS [employer] [facility] [facility] [facility] 1217-30-5 00 / / [id number] Inser,Altrx,N t,36w75io ([id number]) (Autoreq) - [id number] Implanted:Qty : 1 on 02/13/2018 by Patrick Dumont MD at [facility] IMPLANTS [employer] [facility] [employer] [place] 1221-32-0 48 / / [id number] Cup,Hip,Acetb ,Grptn,Sctr,4 8mm ([id number]) (Autoreq) - [id number] Implanted:Qty : 1 on 02/13/2018 by Patrick Dumont MD at [facility] IMPLANTS [employer] [facility] [employer] [place] 12/07/2025 1217-32-0 48 / / [id number] Screw,Cacls,P nncl,6.5x25mm ([id number]) (Autoreq) - [id number] Implanted:Qty : 1 on 02/13/2018 by Patrick Dumont MD at [facility] IMPLANTS [employer] [facility] 01/07/20287-25-5 00 / / [id number] Stem,Crl,Amt, Clr,Sz11 (4139484) (Autoreq) - [id number] Implanted:Qty : 1 on 02/13/2018 by Patrick Dumont MD at [facility] IMPLANTS [employer] [facility] [place] 08/06/2022 [id number] / / [id number] Ball,Atc,Grn, +1mm,32mm ([id number]) (Autoreq) - [id number] Implanted:Qty : 1 on 02/13/2018 by Patrick Dumont MD at [facility] IMPLANTS [facility] [employer] [facility] 08/06/2022 1365-21-0 00 / / [id number] Shell Acet Hip 50mm Por Ctd Multi Hole Ti [place] Gription ([id number]) (Autoreq) - [id number] Implanted:Qty : 1 on 01/19/2021 by Patrick Dumont MD at [facility] IMPLANTS Right: Hip [facility] [id number] 11/06/2030 1217-32-0 50 / / [id number] Screw Hip Acet 6.5x20mm Ft Canc Hex Drv Ti [place] ([id number]) (Autoreq) - [id number] Implanted:Qty : 1 on 01/19/2021 by Patrick Dumont MD at [facility] IMPLANTS Right: Hip [facility] [place] [id number] 11/06/2030 1217-20-5 00 / / [id number] Screw Hip Acet 6.5x25mm Ft Canc Hex Drv Ti [place] ([id number]) (Autoreq) - [id number] Implanted:Qty : 1 on 01/19/2021 by Patrick Dumont MD at [facility] IMPLANTS Right: Hip [facility] [id number] 11/06/2030 1217-25-5 00 / / [id number] Liner Acet Hip 64q44qb 0d Stnd Poly [place] Altrx ([id number]) (Autoreq) - [id number] Implanted:Qty : 1 on 01/19/2021 by Patrick Dumont MD at [facility] IMPLANTS Right: Hip [facility] [place] [place] [id number] 08/06/2025 1221-32-0 50 / / [id number] Stem Femoral Hip 150mm Sz 12 135d Por Cllr Stnd Ofst Ti ([id number]) (Autoreq) - [id number] Implanted:Qty : 1 on 01/19/2021 by Patrick Dumont MD at [facility] IMPLANTS Right: Hip [employer]AK & [employer] [id number] 06/06/2024 [id number] / / [id number] Head Femoral Hip 32mm +1mm Offset 03/22 Tpr Ceramic Articul (0868601) (Autoreq) - [id number] Implanted:Qty : 1 on 01/19/2021 by Patrick Dumont MD at [facility] IMPLANTS Right: Hip [employer] [id number] 02/06/2025 1365-32-3 / [id number] Procedures Procedure Name Priority Date/Time Associated Diagnosis Comments POC, GLUCOSE Routine 02/08/2024 9:48 AM EDT POC, GLUCOSE Routine 02/08/2024 7:27 AM EDT POC, GLUCOSE Routine 02/07/2024 9:20 PM EDT SCAN DOC: TELEMETRY STRIPS 02/07/2024 7:59 PM EDT SURGICAL PATHOLOGY Routine 02/07/2024 7: 17 PM EDT Unlisted Laparoscopic Proc Abd Peritoneum & Omentum (80302) 02/07/2024 4:32 PM EDT ENDOMETRIAL CANCER MODIFIER ROBOT,TRACII XI 02/07/2024 4:32 PM EDT ENDOMETRIAL CANCER Laparoscopy W Tot Hysterectuterus <=250 Gram W Tube/Ovary ([id number]) 02/07/2024 4:32 PM EDT ENDOMETRIAL CANCER POC, GLUCOSE Routine 02/07/2024 2:[address] ANGIOGRAM CORONARY ARTERIES Routine 01/24/2024 2:30 PM EDT Nonrheumatic aortic (valve) stenosis US TRANSVAGINAL NON OB Routine 1:20 PM EDT EIN (endometrial intraepithelial neoplasia) BASIC METABOLIC PANEL Routine 01/24/2024 11:41 AM EDT Acute diastolic heart failure ORDS - PROVIDER CARE SCAN 01/18/2024 12:00 AM EDT ECHO COMPLETE Routine 01/11/2024 2:09 PM EDT Edema, unspecified type SURGICAL PATHOLOGY Routine 12/04/2023 11 :21 AM EDT EIN (endometrial intraepithelial neoplasia) from Last 3 Months Results * (ABNORMAL) POC, GLUCOSE (02/08/2024 9:48 AM EDT) Only the most recent of4 resultswithin the time period is included. Glucometer, POC 257(H) 65 - 199 mg/dL 02/08/2024 9:49 AM EDT [facility] Comment:Supplemental ranges: <140 mg/dL before meals <180 mg/dL all other times of the day. Blood CAPILLARY BLOOD / Unknown 02/08/2024 9:48 AM EDT 02/08/2024 9:49 AM EDT Tyler Mcconnell MD POINT OF CARE TEST O RDERABLES Performing Organization Address City/State/[facility] Co de Phone Number [facility] [place] [place] [address] * Scan Doc: Telemetry Strips (02/07/2024 7:59 PM EDT) Narrative 02/07/2024 7:59 PM EDT Ordered by an unspecified provider. Scanning Provider MEDIA MGR SCAN EXT O RDR/RSLT * Surgical Pathology (02/07/2024 7:17 PM EDT) Only the most recent of2 resultswithin the time period is included. Case Report Surgical Pathology Report ? Case: [id number] ? Authorizing Provider: ??Willacy, Tyler, MD ?Collected: ? 02/07/2024 1917 ? Ordering Location: ? Main Operating Room [place] ?? Received: ?02/07/2024 2000 ? [facility] ? Pathologist: ? Elle Servin, MD ? Specimens: ?? A) - Uterus, Cervix, Right Fallopian Tube, Right Ovary ? B) - Omentum ? 02/19/2024 5:49 PM [facility] Final Diagnosis A. Uterus, Cervix, Right Fallopian Tube, Right Ovary, Hysterectomy and Right Salpingo-oophorectomy : - Endometrial adenocarcinoma, endometrioid type, FIGO grade 1, at least 3.1 cm involving anterior and posterior endometrium (see synoptic report) - Leiomyoma - Benign ovary and fallopian tube B. Omentum, Excision: - Benign omental adipose tissue 02/19/2024 5:49 PM EST [facility] Synoptic Report ENDOMETRIUM ENDOMETRIUM - All Specimens 8th Edition - Protocol posted: 03/21/2023 SPECIMEN ?? Procedure: ?Simple hysterectomy ?? Procedure: ?Right salpingo-oophorectomy TUMOR ?? Tumor Site: ?Endometrium ?? Tumor Site: ?Lower uterine segment ?? Histologic Type: ?Endometrioid carcinoma, NOS ?? Histologic Grade: ?FIGO grade 1 ?? Myometrial Invasion: ?Present ? Depth of Myometrial Invasion: ?12 mm ? Myometrial Thickness: ?16 mm ? Percentage of Myometrial Invasion: ?75 % ?? Adenomyosis: ?Present, involved by carcinoma ?? Uterine Serosa Involvement: ?Not identified ?? Lower Uterine Segment Involvement: ?Present, myoinvasive ?? Cervical Stromal Involvement: ?Not identified ?? Other Tissue / Organ Involvement: ?Not applicable ?? Lymphatic and / or Vascular Invasion: ?Not identified REGIONAL LYMPH NODES ?? Regional Lymph Node Status: ?Not applicable (no regional lymph nodes submitted or found) pTNM CLASSIFICATION (AJCC 8th Edition) ?? Reporting of pT, pN, and (when applicable) pM categories is based on information available to the pathologist at the time the report is issued. As per the AJCC (Chapter 1, 8th Ed.) it is the managing physician? s responsibility to establish the final pathologic stage based upon all pertinent information, including but potentially not limited to this pathology report. ?? pT Category: ?pT1b ?? pN Category: ?pN not assigned (no nodes submitted or found) FIGO STAGE ?? FIGO Stage: ?IB ADDITIONAL FINDINGS ?? Additional Findings: ?Atypical hyperplasia / endometrial intraepithelial neoplasia (EIN) 02/19/2024 5:49 PM [facility] Additional Studies Task ID IHC/Special Stains Result A11-2 MLH-1 Positive A11-3 MSH-2 Positive A11-4 MSH-6 Positive A11-5 PMS-2 Positive A11-6 UT (Clone 16) Positive A11-7 ER (Clone SP1) Positive A34-2 ER (Clone SP1) Positive A34-3 UT (Clone 16) Positive A34-4 MLH-1 Positive A34-5 MSH-2 Positive A34-6 MSH-6 Positive A34-7 PMS-2 Positive B3-2 [place] Red Stain Negative 02/19/2024 5:49 PM [facility] Disclaimer(s) Immunohistochemical assay was performed on paraffin-embedded tissue sections fixed in 10% neutral buffered formalin for 6-72 hours using the polymer system technique with appropriate controls. The assay was performed according to the laminating machine tender's instructions using anti-MLH-1, anti-MSH-2, anti-MSH-6, and anti-PMS-2 antibodies. Formalin-fixed, paraffin-embedded tissue sections are studied using the polymer technique with appropriate positive and negative controls. These IHC studies provide the pathologist with adjunctive diagnostic information. Antibody specificity has been verified by testing antibodies on a series of in-house tissues with known immunohistochemical performance characteristics. The clinical interpretation of any antibody positive staining or its absence is evaluated within the context of clinical presentation, morphology, histopathological criteria and other diagnostic tests. 02/19/2024 5:49 PM [facility] Clinical Information A. Uterus, Cervix, Right Fallopian Tube, Right Ovary, *Other - as specified in Clinical Information B. Omentum, *Other - as specified in Clinical Information 02/19/2024 5:49 PM [facility] Gross Description A. Uterus, Cervix, Right Fallopian Tube, Right Ovary, . A - Labeled/Fixative: Uterus, cervix, right fallopian tube, right ovary, fresh. Quantity: Single Size: Cornu to cornu: 5.8 cm Anterior to posterior: 3.7 cm Dome to Cervix: 8.0 cm Weight (overall): 98 g Tissue Description: Intact, total hysterectomy. UTERUS Endometrium: 2.5 x 3.1 cm, irregular, ranging from 0.1 to 0.5 cm thick. Grossly difficult to identify a discrete lesion. Myometrium: 1.5-2.3 cm, marked whorled, rubbery trabeculation which may obscure areas of tumor invasion. Possible area of myometrial invasion to a depth of 0.7 cm (inner half) within the posterior myometrium. Serosa: Glistening and pink-garcia. CERVIX Diameter: 2.9 cm Os: 1.0 cm, circular RIGHT OVARY Size: 1.1 x 0.9 x 0.7 cm. Outer Surface: Garcia-pink, Smooth with a 0.3 x 0.3 x 0.2 cm nodule. Cut Surface: unremarkable. Right Fallopian Tube: 4.0 x 0.4 cm, fimbriated. Sections/Processing: Financial Services Agent sections including the entire endometrium in 36 cassettes as follows: A1: Anterior cervix A2: Posterior cervix A3-A6: Anterior lower uterine segment, longitudinal sections with cervical aspect inked blue A7-A10: Posterior lower uterine segment, longitudinal sections with cervical aspect inked blue A11-A23: Anterior endomyometrium, full-thickness sections, entirely submitted A24-A25: Posterior endomyometrium, full-thickness bisected A26-A27: Posterior endomyometrium, full-thickness bisected A28-A29: Posterior endomyometrium, full-thickness bisected A30-A34: Remainder of posterior endomyometrium including area of possible myometrial invasion in blocks A31-A34 A35: Right ovary A36: Right fallopian tube ajw B. Omentum, . B - Labeled/Fixative: Omentum, fresh. Quantity/Size: Multiple, 6.5 x 6.5 x 2.0 cm. Tissue Description: Portions of soft and rubbery fibroadipose tissue. No gross lesions identified. Sections/Processing: Financial Services Agent sections in 3 cassettes labeled B1-B3. 02/19/2024 5:49 PM [facility] Result Note Routine 02/19/2024 5:49 PM EST [facility] Tissue (Uterus, Cervix, Right Fallopian Tube, Right Ovary) 02/07/2024 7:17 PM EDT 02/07/2024 8:00 PM EDT Comment:Pre-op diagnosis: ENDOMETRIAL CANCER Tissue specimen (specimen) OMENTUM STRUCTURE / Unknown 02/07/2024 7:35 PM EDT 02/07/2024 8:00 PM EDT Comment:Pre-op diagnosis: ENDOMETRIAL CANCER Tyler Mcconnell MD PATHOLOGY/CYTOLOGY O [facility] [place] [address] * CT Angiogram Coronary Arteries (01/24/2024 2:30 PM EDT) WORKSTATION ID [id number] RAD Anatomical Region Laterality Modality Cardiac Computed Tomogra phy Impressions 01/25/2024 11:20 AM EDT Coronary calcium score of 0, consistent with no detectable calcified atherosclerotic plaque burden. No significant soft plaque or other coronary artery stenosis on the coronary CT arteriogram. CAD-RADS 0 Degree of aortic valve calcification is consistent with presence of stenosis. Thank you for letting us participate in the care of this patient. ??If you are a health care provider and have any questions regarding this report, please contact the number below. ??For patients who have questions please contact the health school child care attendant that requested your imaging first. ? Narrative 01/25/2024 11:20 AM EDT EXAMINATION: CT ANGIOGRAM CORONARY ARTERIES CLINICAL HISTORY: nonrheumatic aortic (valve) stenosis I35.0, Nonrheumatic aortic (valve) stenosis COMPARISON: None. TECHNIQUE: 2.5 mm thick axial contiguous sections through the heart were obtained via ECG-gated axial mode acquisition without intravenous contrast. After time bolus, 0.625 mm thick axial contiguous sections were obtained through the heart via ECG-gated helical acquisition during intravenous administration of 108 cc Omnipaque 350. Post-processing was performed on an independent computer workstation including curved multiplanar reformats, coronary calcium scoring, and 3D reconstructions. FINDINGS: Coronary calcium score: Left main: ??Agatston score: 0 Left anterior descending: ??Agatston score: 0 Left circumflex: ??Agatston score: 0 Right coronary: ??Agatston score: 0 TOTAL: ??Agatston score: 0 Atherosclerotic plaque burden, based on Agatston score: No detectable calcified atherosclerotic plaque. Percentile rank, based on age, race/ethnicity, and gender: N/A Coronary arteries: Right dominant coronary circulation. Left main: Normal origin. No demonstrable plaque or stenosis. Left anterior descending: No demonstrable plaque or stenosis. Diagonal branches: No demonstrable plaque or stenosis. Left Circumflex: No demonstrable plaque or stenosis. Obtuse marginal branches: No demonstrable plaque or stenosis. Right coronary: Normal origin. No demonstrable plaque or stenosis. Posterior descending: No demonstrable plaque or stenosis. Posterolateral branch: No demonstrable plaque or stenosis. Cardiac chambers: Moderate to severe mitral annular calcification. Moderate to severe aortic valve calcification. Great vessels: No significant findings. Pulmonary parenchyma, airways, pleura: No significant findings. Upper abdomen: No significant findings Skeletal Structures: Diffuse degenerative changes. Procedure Note Kary De Guzman MD - 01/25/2024 EXAMINATION: CT ANGIOGRAM CORONARY ARTERIES CLINICAL HISTORY: nonrheumatic aortic (valve) stenosis I35.0, Nonrheumatic aortic (valve) stenosis COMPARISON: None. TECHNIQUE: 2.5 mm thick axial contiguous sections through the heart were obtained via ECG-gated axial mode acquisition without intravenouscontrast. After time bolus, 0.625 mm thick axial contiguous sections were obtainedthrough the heart via ECG-gated helical acquisition during intravenousadministration of 108 cc Omnipaque 350. Post-processing was performed on an independentcomputer workstation including curved multiplanar reformats, coronary calciumscoring, and 3D reconstructions. FINDINGS: Coronary calcium score: Left main: Agatston score: 0 Left anterior descending: Agatston score: 0 Left circumflex: Agatston score: 0 Right coronary: Agatston score: 0 TOTAL: Agatston score: 0 Atherosclerotic plaque burden, based on Agatston score: No detectablecalcified atherosclerotic plaque. Percentile rank, based on age, race/ethnicity, and gender: N/A Coronary arteries: Right dominant coronary circulation. Left main: Normal origin. No demonstrable plaque or stenosis. Left anterior descending: No demonstrable plaque or stenosis. Diagonal branches: No demonstrable plaque or stenosis. Left Circumflex: No demonstrable plaque or stenosis. Obtuse marginal branches: No demonstrable plaque or stenosis. Right coronary: Normal origin. No demonstrable plaque or stenosis. Posterior descending: No demonstrable plaque or stenosis. Posterolateral branch: No demonstrable plaque or stenosis. Cardiac chambers: Moderate to severe mitral annular calcification.Moderate to severe aortic valve calcification. Great vessels: No significant findings. Pulmonary parenchyma, airways, pleura: No significant findings. Upper abdomen: No significant findings Skeletal Structures: Diffuse degenerative changes. IMPRESSION Coronary calcium score of 0, consistent with no detectable calcified atherosclerotic plaque burden. No significant soft plaque or other coronary artery stenosis on thecoronary CT arteriogram. CAD-RADS 0 Degree of aortic valve calcification is consistent with presence ofstenosis. Thank you for letting us participate in the care of this patient. If youare a health care provider and have any questions regarding this report,please contact the number below. For patients who have questions please contactthe health school child care attendant that requested your imaging first. Leslie Kingston MD IMG CT ORDERABLES * US Transvaginal Non OB (01/24/2024 1:20 PM EDT) WORKSTATION ID [id number] RAD Anatomical Region Laterality Modality Ultrasound 01/24/2024 1:00 PM EDT Impressions 01/24/2024 2:33 PM EDT 1. ??Anteverted uterus measuring 8.3 x 4.6 x 4.5 cm. There is a 3 cm right anterior lateral intramural fibroid. 2. ??Normal endometrial thickness measuring 3.4 mm. 3. ??Normal left ovary. 4. ??Right ovary was not visualized. I have personally reviewed the image(s) and the resident's interpretation and agree with the findings, Cory Dominguez MD at 01/24/2024 2:24 PM Thank you for letting us participate in the care of this patient. If you are a health care provider and have any questions regarding this report, please contact the number above. For patients who have questions, please contact the health school child care attendant that requested your imaging first. ? Cory Dominguez, Staff Physician Electronically Signed Final Report ?? 01/24/2024 02:32 pm Narrative 01/24/2024 2:33 PM EDT Gynecological Report ?(Signed Final 01/24/2024 02:32 pm) PATIENT INFO: ID #: ? [id number] ?: ??[birth year] (73 yrs)(F) Name: ? SURYA KNIGHT ?Visit Date: 01/24/2024 01:00 pm PERFORMED BY: Attending: ?Alberto SINGH, Cory Sierra Resident: ? Destiny SINGH, Conrad Negro Performed By: ? Emilia Owens RDMS By: ?TYLER MCCONNELL Location: ? [place] SERVICE(S) PROVIDED: UTV - Transvaginal - [id number] ?[id number] UPELIM - Pelvis Limited - [id number] ? 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 73 ------- UTERUS: ------- Uterus: ? Visualized Position: ?? Anteverted Size (cm) ?L: ??8.3 ? W: ?? 4.6 ?H: ??4.5 ------- MYOMAS: ------- Site ? L(cm) ? W(cm) ? D(cm) ? Location Anterior Right ? 2.3 ? 3.0 ? 1.9 ? Intramural lateral Blood Flow ?RI ? PI ?Comments ENDOMETRIUM: Endometrium: ?Normal appearance Thickness(mm): ?3.38 ------- CERVIX: ------- Multiple nabothian cysts seen CUL-DE-SAC: No fluid is visualized. RIGHT OVARY: Status: ?? Not Visualized Comment: ? Ovary was not seen transvaginally, therefore ?transabdominal ultrasound was performed. Ovary ?was also not visualized transabdominally. LEFT OVARY: Status: ?? Visualized Size (cm) ?L: ??2.6 ? W: ?? 2.7 ?H: ??1.7 Vol (ml): ?6.2 Morphology: ?Normal appearance Comment: ? Ovary was not seen transvaginally, therefore ?transabdominal ultrasound was performed. 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 RIGHT OVARY: Status: Not Visualized Comment: Ovary was not seen transvaginally, therefore transabdominal ultrasound was performed. Ovary was also not visualized transabdominally. LEFT OVARY: Status: Visualized Size (cm) L: 2.6 W: 2.7 H: 1.7 Vol (ml): 6.2 Morphology: Normal appearance Comment: Ovary was not seen transvaginally, therefore transabdominal ultrasound was performed. IMPRESSION 1. Anteverted uterus measuring 8.3 x 4.6 x 4.5 cm. There is a 3 cm right anterior lateral intramural fibroid. 2. Normal endometrial thickness measuring 3.4 mm. 3. Normal left ovary. 4. Right ovary was not visualized. I have personally reviewed the image(s) and the resident's interpretation and agree with the findings, Cory Dominguez MD at 01/24/2024 2:24 PM Thank you for letting us participate in the care of this patient. If you are a health care provider and have any questions regarding this report, please contact the number above. For patients who have questions, please contact the health school child care attendant that requested your imaging first. Cory Dominguez, Staff Physician Electronically Signed Final Report 01/24/2024 02:32 pm Tyler Mcconnell MD IMG US PELVIC ORDERA BLES * (ABNORMAL) Basic Metabolic Panel Non-fasting (01/24/2024 11:41 AM EDT) Glucose 118(H) 65 - 99 mg/dL 01/24/2024 12:23 PM EDT [facility] Comment: Fasting Glucose Interpretive Criteria: Normal: 65-99 mg/dL ?? Prediabetes: 100-125 mg/dL ?? Consistent with Diabetes Mellitus: > or = 126 mg/dL ?? Classification and Diagnosis of Diabetes: Standards of Care in Diabetes - 2022. Diabetes Care 202; 46:S19. Fasting is defined as no caloric intake for at least 8 hours. Blood Urea Nitrogen 11 8 - 18 mg/dL 01/24/2024 12:23 PM EDT [facility] Creatinine 0.55(L) 0.70 - 1.20 mg/dL 01/24/2024 12:23 PM EDT [facility] Sodium 136 135 - 145 mMol/L 01/24/2024 12:23 PM EDT [facility] Potassium 4.6 3.5 - 5.0 mMol/L 01/24/2024 12:23 PM EDT [facility] Chloride 101 98 - 107 mMol/L 01/24/2024 12:23 PM EDT [facility] Carbon Dioxide 26 22 - 31 mMol/L 01/24/2024 12:23 PM EDT [facility] Anion Gap 9 5 - 15 mMol/L 01/24/2024 12:23 PM EDT [facility] Calcium 9.1 8.5 - 10.5 mg/dL 01/24/2024 12:23 PM EDT [facility] Est Glomerular Filtration Rate - Female 98 mL/min/1. 73 m?? 01/24/2024 12:23 PM EDT [facility] Comment: This patient's estimated GFR was calculated using the 2020 CKD-EPI equation. The estimated GFR can vary from the measured GFR by up to 30% in the absence of rapidly changing kidney function. Assessment of the estimated GFR is not appropriate when creatinine concentrations are rapidly changing. For clinical situations in which a more precise estimate of GFR is necessary, consider alternative methods of GFR estimation such as a 24-hour urine creatinine clearance. Assignment of CKD stage 1 - 5 for patients with an eGFR near the transition point between stages may be based on clinical assessment of muscle mass and symptoms in addition to eGFR. Link: eGFR Calculator [employer] Fasting Status Yes 01/24/2024 12:23 PM EDT [facility] Blood VENOUS BLOOD SPECIMEN / Unknown Venipuncture / Unknown 01/24/2024 11:41 AM EDT 01/24/2024 11:41 AM EDT Leslie Kingston MD CHEMISTRY ORDERABLES [facility] [place] [place] [address] * Scan Doc: [facility] - Provider Care (01/18/2024 12:00 AM EDT) Narrative 01/18/2024 12:00 AM EDT Ordered by an unspecified provider. Scanning Provider MEDIA MGR SCAN EXT O RDR/RSLT * ECHO COMPLETE (01/11/2024 2:09 PM EDT) Anatomical Region Laterality Modality Other 01/11/2024 1:05 PM EDT Narrative 01/11/2024 3:29 PM EDT [address] [place] [address] ? Echocardiogram Report Name: EUGENE SURYA K ?Study Date: 01/11/2024 01:05 PMBP: 156/82 mmHg : 1950 ? Height: 157 cm ? Account: [id number] Age: 73 yrs ? Weight: 123 kg Gender: Female ?BSA: 2.2 m2 Ordering Physician: LESLIE KINGSTON Referring Physician: LESLIE KINGSTON Performed By: Kelly Dominguez RDCS Reason For Study: Edema. Interpreting Fellow: Blaze Negro. Exam Location: [facility]. Interpretation Summary Left ventricle is of normal size. Left ventricular size and systolic function are normal. Left ventricular ejection fraction is estimated visually at 65%. There are no segmental wall motion abnormalities. The right ventricle is of normal size. Right ventricular systolic function is normal. The left and right atria are normal. By visual assessement, there is possibly severe aortic stenosis (paradoxical low- flow, low-gradient). There is trace aortic regurgitation. No prior echo available for comparison. CONCLUSION: consider alternate imaging modality to assess severity of (eg Cardiac CT vs SATHYA). Procedure Complete-25993. Suboptimal quality. This study is limited because of body habitus. There is normal sinus rhythm. Left Ventricle Left ventricle is of normal size. Wall thickness is normal. Left ventricular size and systolic function are normal. Left ventricular ejection fraction is estimated visually at 65%. There are no segmental wall motion abnormalities. Right Ventricle The right ventricle is of normal size. Right ventricular systolic function is normal. RV function by TAPSE (tricuspid annular plane systolic excursion) is normal. Left Atrium The left atrium is normal. The interatrial septum is not well visualized. Right Atrium The right atrium is normal. Aortic Valve The aortic valve is probably trileaflet. The aortic valve is moderately calcified. There is calcification of the aortic annulus. The peak instantaneous gradient across the aortic valve is 40.7 mmHg. The mean gradient across the aortic valve is 18.8 mmHg. The aortic valve area calculated using the continuity equation is 1.1 cm^2. The stroke volume index is 25.5 mL/m2. By visual assessement, there is possibly severe aortic stenosis (low-flow, low-gradient). There is trace aortic regurgitation. Mitral Valve The mitral valve leaflets are thickened. There is moderate posterior annular calcification. There is trace mitral regurgitation. Tricuspid Valve The tricuspid valve is structurally normal. There is no tricuspid stenosis. There is trace tricuspid regurgitation. Pulmonic Valve The pulmonic valve is not well visualized. There is no valvular pulmonic stenosis. There is no pulmonic valve regurgitation. Great Arteries The aortic root is of normal size. No abnormalities are identified. Ascending aorta is normal in size. Venous Inferior vena cava is normal in size. Inferior vena cava collapse greater than 50% with respiration. Pericardium/Pleural A pericardial fat pad is present. Hemodynamics Left ventricular diastolic function is indeterminate. Pulmonary artery hypertension could not be assessed due to inadequate tricuspid regurgitation jet. Ejection Fraction ?2D Measurements ? Volumes LV Biplane EF: 64.4 % ? IVSd: 1.1 cm ? LA Volume Index: ?LVIDd: 3.9 cm ?LVIDs: 2.0 cm ?31.9 ml/m2 ?LVPWd: 0.86 cm ? EDV Biplane: 53.7 ml ?RWT: 0.45 {ratio} ?EDV BP Indexed: ? 24.7 ml/m2 ?LV mass(C)d: 119.7 grams ? ESV Biplane: 19.1 ml ?LV mass(C)dI: 55.1 grams/m2 ?Ao root diam: 3.2 cm ? ESV BP Indexed: 8.8 ml/m2 ?Ao root diam index: 1.5 ?SV(LVOT): 55.3 ml ?asc Aorta Diam: 3.3 cm ? LV Stroke Volume: 55.3 ml ?LVOT diam: 1.7 cm ?SI(LVOT): 25.5 ml/m2 ?TAPSE_phl: 2.1 cm Doppler LV V1 VTI: 23.6 cm LVOT max Velocity: 131.0 cm/sec Ao V2 VTI: 52.5 cm Ao Max Baldemar: 319.0 cm/sec Ao valve max: 40.7 mmHg Ao valve mean: 18.8 mmHg MV E max baldemar: 101.0 cm/sec MV A max baldemar: 146.9 cm/sec MV E/A: 0.69 MV dec time: 0.25 sec MV mean P.2 mmHg Lat Peak E' Baldemar: 9.6 cm/sec E/e' (lat): 10.5 Med Peak E' Baldemar: 4.8 cm/sec E/e' (med): 21.0 E/e' Average: 15.8 LEONILA(I,D): 1.1 cm2 Dimensionless index Aov: 0.45 I ?WMSI = 1.00 ? % Normal = 100 ?Segments ??Size X - Cannot ?2 - ?4 - ?1-2 ? small Interpret ?1 - Normal ?? Hypokinetic 3 - Akinetic Dyskinetic ?? 3-5 ? moderate 5 - ? 6-14 ?large Aneurysmal ?15-16 ?? diffuse Procedure Note Heriberto Ann MD - 01/11/2024 1 [place] [address] Echocardiogram Report Name: SURYA KNIGHT Study Date: 01/11/2024 01:05 PMBP:156/82 mmHg : 1950 Height: 157 cmAccount: [id number] Age: 73 yrs Weight: 123 kg Gender: Female BSA: 2.2 m2 Ordering Physician: LESLIE KINGSTON Referring Physician: LESLIE KINGSTON Performed By: Kelly Dominguez RDCS Reason For Study: Edema. Interpreting Fellow: Blaze Negro. Exam Location: [facility]. Interpretation Summary Left ventricle is of normal size. Left ventricular size and systolicfunction are normal. Left ventricular ejection fraction is estimated visually at 65%. There are no segmental wall motion abnormalities. The right ventricle is of normal size. Right ventricular systolic functionis normal. The left and right atria are normal. By visual assessement, there is possibly severe aortic stenosis(paradoxical low- flow, low-gradient). There is trace aortic regurgitation. No prior echo available for comparison. CONCLUSION: consider alternate imaging modality to assess severity of (eg Cardiac CT vs SATHYA). Procedure Complete-22858. Suboptimal quality. This study is limited because of bodyhabitus. There is normal sinus rhythm. Left Ventricle Left ventricle is of normal size. Wall thickness is normal. Leftventricular size and systolic function are normal. Left ventricular ejection fraction isestimated visually at 65%. There are no segmental wall motion abnormalities. Right Ventricle The right ventricle is of normal size. Right ventricular systolic functionis normal. RV function by TAPSE (tricuspid annular plane systolic excursion)is normal. Left Atrium The left atrium is normal. The interatrial septum is not wellvisualized. Right Atrium The right atrium is normal. Aortic Valve The aortic valve is probably trileaflet. The aortic valve is moderatelycalcified. There is calcification of the aortic annulus. The peak instantaneousgradient across the aortic valve is 40.7 mmHg. The mean gradient across the aorticvalve is 18.8 mmHg. The aortic valve area calculated using the continuity equationis 1.1 cm^2. The stroke volume index is 25.5 mL/m2. By visual assessement, thereis possibly severe aortic stenosis (low-flow, low-gradient). There is traceaortic regurgitation. Mitral Valve The mitral valve leaflets are thickened. There is moderate posteriorannular calcification. There is trace mitral regurgitation. Tricuspid Valve The tricuspid valve is structurally normal. There is no tricuspidstenosis. There is trace tricuspid regurgitation. Pulmonic Valve The pulmonic valve is not well visualized. There is no valvular pulmonicstenosis. There is no pulmonic valve regurgitation. Great Arteries The aortic root is of normal size. No abnormalities are identified.Ascending aorta is normal in size. Venous Inferior vena cava is normal in size. Inferior vena cava collapse greaterthan 50% with respiration. Pericardium/Pleural A pericardial fat pad is present. Hemodynamics Left ventricular diastolic function is indeterminate. Pulmonary artery hypertension could not be assessed due to inadequate tricuspidregurgitation jet. Ejection Fraction 2D Measurements Volumes LV Biplane EF: 64.4 % IVSd: 1.1 cm LA VolumeIndex: LVIDd: 3.9 cm LVIDs: 2.0 cm 31.9 ml/m2 LVPWd: 0.86 cm EDV Biplane: 53.7ml RWT: 0.45 {ratio} EDV BP Indexed: 24.7 ml/m2 LV mass(C)d: 119.7 grams ESV Biplane: 19.1ml LV mass(C)dI: 55.1 grams/m2 Ao root diam: 3.2 cm ESV BP Indexed:8.8 ml/m2 Ao root diam index: 1.5 SV(LVOT): 55.3ml asc Aorta Diam: 3.3 cm LV Stroke Volume:55.3 ml LVOT diam: 1.7 cm SI(LVOT): 25.5ml/m2 TAPSE_phl: 2.1 cm Doppler LV V1 VTI: 23.6 cm LVOT max Velocity: 131.0 cm/sec Ao V2 VTI: 52.5 cm Ao Max Baldemar: 319.0 cm/sec Ao valve max: 40.7 mmHg Ao valve mean: 18.8 mmHg MV E max baldemar: 101.0 cm/sec MV A max baldemar: 146.9 cm/sec MV E/A: 0.69 MV dec time: 0.25 sec MV mean P.2 mmHg Lat Peak E' Baldemar: 9.6 cm/sec E/e' (lat): 10.5 Med Peak E' Baldemar: 4.8 cm/sec E/e' (med): 21.0 E/e' Average: 15.8 LEONILA(I,D): 1.1 cm2 Dimensionless index Aov: 0.45 I WMSI = 1.00 % Normal = 100 SegmentsSize X - Cannot 2 - 4 - 1-2small Interpret 1 - Normal Hypokinetic 3 - Akinetic Dyskinetic 3-5moderate 5 - 6-14large Aneurysmal 15-16diffuse Leslie Kingston MD ECHO ORDERABLES from Last 3 Months Advance Directives * Attempt Cardiopulmonary Resuscitation - Inpatient (Latest Code Status on File) Date Activated Date Inactivated Comments 02/07/2024 5:14 PM 02/08/2024 12:53 PM Question Answer Comments Code Status decision made by: Patient * Attempt Cardiopulmonary Resuscitation - Inpatient Date Activated Date Inactivated Comments 02/07/2024 2:12 PM 02/07/2024 5:14 PM Question Answer Comments Code Status decision made by: Patient * Attempt Cardiopulmonary Resuscitation - Inpatient Date Activated Date Inactivated Comments 01/19/2021 9:25 PM 01/26/2021 5:47 PM Question Answer Comments Code Status decision made by: Patient * Full Code Date Activated Date Inactivated Comments 02/13/2018 3:23 PM 02/15/2018 6:09 PM Question Answer Comments Does patient have capacity to make decision: Yes * Full Code Date Activated Date Inactivated Comments 02/13/2018 2:04 PM 02/13/2018 3:23 PM Question Answer Comments Does patient have capacity to make decision: Yes Care Teams Semiconductor Equipment Technician Relationship Specialty Start Date End Date Dandy Driscoll APRN [address] [place] [address] [place] [id number] PCP - General Family Medicine 01/20/16
--- OUTSIDE RECORDS SUMMARY | 2024-02-27 19:32 | XMS_ITS | Encounter Summary ---
Author Organization [facility] Address [address] [place] [address] Care Team Providers Care Psychologist Counseling Name Role Phone Unknown, Provider Primary Care Provider Unava ilable Encounter Details Date Type Department Care Team (Latest Contact Info) Description 07/26/2018 13:01 EDT - 07/26/2018 23:59 EDT Hospital Encounter [address] [address] Unknown, Provider, Discharge Disposition: Home or Self Care Social History Tobacco Use Types Packs/Day Years Used Date Smoking Tobacco: Never Assessed Comments Unknown Sex and Gender Information Value Date Recorded Sex Assigned at Not on file Legal Sex Female 17:28 EST Gender Identity Not on file Sexual Orientation Not on file documented as of this encounter Discharge Disposition Disposition Code Departure Means Destination Home or Self Long-Term documented in this encounter Plan of Treatment Not on file documented as of this encounter Visit Diagnoses Not on filedocumented in this encounter Care Teams Psychologist Counseling Relationship Specialty Start Date End Date Unknown, ProviderMD PCP - General 05/05/14 10/30/18 documented as of this encounter
--- OUTSIDE RECORDS SUMMARY | 2024-02-27 19:32 | XMS_ITS | Encounter Summary ---
Author Organization [facility] Address [address] [place] [address] Care Team Providers Care Coverstitch Binder Name Role Phone Unknown, Provider MD Primary Care Provider Unava ilable Unknown, Provider MD Unavailable Unavailable Reason for Visit * Reason Comments Emesis Pt came in via EMS f or vomiting thick white emesis since 1400 today. Pt reports cough. Pt seen in ER in mobile last week for cough, was given rx for steroids. VSS and afebrile. Encounter Details Date Type Department Care Team (Late st Contact Info) Description 07/20/2022 21:53 EDT - 07/21/2022 0:01 EDT Emergency [facility] Emergency Department [address] [place] [address] Jean Pickens MD [address] [place] [address] COPD exacerbation ([facility]) (Primary Dx) Discharge Disposition: Home or Self Care Social [...] on file documented as of this encounter Last Filed Vital Signs Vital Sign Reading Time Taken Comments Blood Pressure 105/54 07/20/2022 2335 EDT Pulse 94 07/20/2022 2216 EDT Temperature 36.4 ??C (97.5 ??F) 07/20/2022 2158 EDT Respiratory Rate 20 07/20/2022 2244 EDT Oxygen Saturation 95% 07/20/2022 2315 EDT Inhaled Oxygen Concentration - - Weight - - Height - - Body Mass Index - - documented in this encounter Discharge Instructions * Discharge Instructions* Jean Pickens MD - 07/20/2022 23:11 EDT You were seen in the emergency department for cough and shortness of breath due to a COPD exacerbation. Continue taking prednisone as directed until all of the pills are gone. Take Zofran as directed as needed for nausea. Use your albuterol inhaler every 2-4 hours as needed for cough, wheezing or shortness of breath. Your blood pressure was low in the ED. Please reduce your torsemide dose to 10 mg daily until you follow-up with your primary care doctor to discuss the dose. Please follow-up with your primary care provider soon as possible. Return to the ED for any worsening symptoms. documented in this encounter Medications at Time of Discharge albuterol 2.5 mg /3 mL (0.083 %) nebulizer solution Take 3 mL by nebulization every 4 hours as needed for Wheezing. 04/21/2022 aspirin 81 mg EC tablet Take 1 Tablet by mouth daily. 10/27/2021 buPROPion (WELLBUTRIN XL) 300 mg XL tablet Take 1 Tablet by mouth daily. 11/21/2021 fluticasone propion-salmeter oL (ADVAIR DISKUS) 500-50 mcg/dose diskus inhaler Inhale 1 Puff as directed 2 times daily. 05/11/2022 furosemide (LASIX) 20 mg tablet Take 1 Tablet by mouth daily. 06/13/2022 ipratropium-albu teroL (DUONEB) 0.5 mg-3 mg(2.5 mg base)/3 mL nebulizer solution Take 3 mL by nebulization every 4 hours as needed. 04/21/2022 lisinopriL (PRINIVIL) 10 mg tablet Take 1 Tablet by mouth daily. 11/21/2021 torsemide (DEMADEX) 20 mg tablet Take 1 Tablet by mouth daily. 07/04/2022 triamcinolone (KENALOG) 0.1 % cream Apply 1 Application topically if needed. 11/21/2021 documented as of this encounter Discharge Disposition Disposition Code Departure Means Destination Home or Self [facility] documented in this encounter ED Notes * Jean Pickens MD - 07/20/2022 2206 EDT Emergency Department Visit Medical Decision Making 72 y.o. female with COPD, and diastolic heart failure who presents to the ED for cough, shortness of breath and vomiting. I reviewed her encounter at [facility] from 8 days ago at which time her chest x-ray did not show pneumonia, labs were not suggestive of CHF exacerbation, COVID, fluand RSV were negative. Tonight she is mildly tachypneic with scattered wheezes in the lungs. There is no peripheral edema. Agree that this is likely COPD exacerbation made worse by trying to sleep inher car tonight. Plan to treat with a DuoNeb. Patient breathing more comfortably after DuoNeb. We did discuss a course of antibiotics, which I think would be reasonable given her increased sputum production. She is insistent that even after a single dose of antibiotics she gets terrible diarrhea and would prefer to avoid this. Patient had somesoft blood pressures in the ED. After ambulation her blood pressure normalized. I think her p.o. intake is likely been less since she has been sick and it makes sense for her to go back to her previous dose of 10 mg of torsemide daily to prevent overdiuresis. She will take 10 mg until she is able to follow-up with her PCP. She was also given a dose of Zofran in the ED for nausea and discharged with a to go pack this. [facility] Final diagnoses: COPD exacerbation ([facility]) Disposition: Discharged Chief complaint: Cough, shortness of breath, vomiting CODEY Knight is a 72 y.o. female with COPD, and diastolic heart failure who presents to the ED for cough, shortness of breath and vomiting. She has been sick with a cough for about 2 weeks. Seen at [facility] 8 days ago where she tested negative for COVID, flu and RSV. Chest x-ray was negative for pneumonia. Labs were not suggestive of CHF exacerbation. She was prescribed albuterol andprednisone, which she is still taking. Antibiotics were discussed but ultimately were not prescribed as the patient has several intolerances. Patient drove to [place] today to go to the [facility]. For some reason she was not able to leave to drive home before it was dark and does not feel comfortable d riving home tonight. She had plan to sleep in her car but started coughing a lot and having troublebreathing. She had an episode of vomiting after coughing. Received Zofran from EMS. Her torsemide was increased about 2 weeks ago at which time she says her ankles were swollen. Ankles are now normal. History was provided by: Patient Records reviewed include: [facility] ED note Patient's pertinent PMH, FH, SH were reviewed and edited as necessary. Nursing notes reviewed. A medical screening exam was performed. Physical Exam BP 105/54 Pulse 94 Temp 36.4 ??C (97.5 ??F) (Oral) Resp 20 SpO2 95% Physical Exam Vitals and nursing note reviewed. Constitutional: General: She is not in acute distress. Appearance: Normal appearance. HENT: Head: Normocephalic and atraumatic. Right Ear: External ear normal. Left Ear: External ear normal. Nose: Nose normal. Mouth/Throat: Mouth: Mucous membranes are dry. Eyes: Extraocular Movements: Extraocular movements intact. Pupils: Pupils are equal, round, and reactive to light. Cardiovascular: Rate and Rhythm: Normal rate and regular rhythm. Heart sounds: Normal heart sounds. Pulmonary: Comments: Mild tachypnea without distress, scattered wheezes Abdominal: Palpations: Abdomen is soft. There is no mass. Tenderness: There is no abdominal tenderness. Musculoskeletal: General: No swelling or deformity. Normal range of motion. Cervical back: Normal range of motion and neck supple. Right lower leg: No edema. Left lower leg: No edema. Skin: General: Skin is warm and dry. Neurological: General: No focal deficit present. Mental Status: She is alert and oriented to person, place, and time. Psychiatric: Mood and Affect: Mood normal. Behavior: Behavior normal. Procedures Procedures documented in this encounter Plan of Treatment Not on file documented as of this encounter Visit Diagnoses Diagnosis COPD exacerbation ([facility])- Primary Obstructive chronic bronchitis with exacerbation documented in this encounter Administered Medications Inactive Administered Medications - up to 3 most recent administrations Medication Order MAR Action Action Date Dose Rate Site ipratropium-albuteroL (DUONEB) 0.5 mg-3 mg(2.5 mg base)/3 mL nebulizer solution 3 mL 3 mL, nebulization, NOW X1, 1 dose, On Effie 07/20/22 at 2230, STAT Given 07/20/2022 22:43 EDT 3 mL ondansetron (ZOFRAN-ODT) disintegrating tablet 4 mg 4 mg, oral, NOW X1, 1 dose, On Sun07/21/22 at 0000, STAT Given 07/20/2022 23:45 EDT 4 mg ondansetron 4 mg ODT tab STARTER PACK 1 Package, oral, Once (Without Time Specified), 1 dose, Starting on Effie 07/20/22 at 2336, Until Effie 07/20/22 at 2345, STAT Given 07/20/2022 23:45 EDT 1 Package documented in this encounter Active and Recently Administered Medications Times are shown in EDT. Scheduled Medication Order 07/19/2022 07/20/2022 07/21/2022 ipratropium-albuteroL (DUONEB) 0.5 mg-3 mg(2.5 mg base)/3 mL nebulizer solution 3 mL (COMPLETED) 3 mL, nebulization, NOW X1, 1 dose, On Effie 07/20/22 at 2230, STAT 2243 (Given - Provider: Alicia Boo RT) ondansetron (ZOFRAN-ODT) disintegrating tablet 4 mg (COMPLETED) 4 mg, oral, NOW X1, 1 dose, On Sun07/21/22 at 0000, STAT 2345 (Given - Provider: Magdy Shepherd, KATINA) ondansetron 4 mg ODT tab STARTER PACK (COMPLETED) 1 Package, oral, Once (Without Time Specified), 1 dose, Starting on Effie 07/20/22 at 2336, Until Effie 07/20/22 at 2345, STAT 2345 (Given - Provider: Magdy Shepherd, RN) documented in this encounter Orders Nursing Count Last Ordered Date First Orde red Date [facility]ER[facility]Y 1 07/20/2022 documented in this encounter Care Teams Coverstitch Binder Relationship Specialty Start Date End Date Unknown, Provider, PCP - General 10/31/18 03/08/23 Unknown, ProviderMD 10/31/18 documented as of this encounter
--- OUTSIDE RECORDS SUMMARY | 2024-02-27 19:32 | XMS_ITS | Encounter Summary ---
Author Organization [facility] Address [address] [place] [address] Care Team Providers Care Oracle Business Analyst Name Role Phone Unknown, Provider Primary Care Provider Unava ilable Unknown, Provider Unavailable Unavailable Dandy Driscoll APRN Primary Care Provider [phone] Encounter Details Date Type Department Care Team (Late st Contact Info) Description 02/11/2022 Lab Requisition [facility] Pathology & Laboratory Medicine - [facility] [address] [place] [address] Priyanka Mahmood, DRY BOX OPERATOR [address] [place], [place] [id number] Acute candidiasis of vulva and vagina Social History Tobacco Use Types Packs/Day Years [...] Procedure Name Priority Date/Time Associated Diagnosis Comments PAP TEST Today 02/10/2022 22:04 EDT documented in this encounter Results * PAP TEST (02/10/2022 22:04 EDT) Specimens A. Cervix and/or Endocervix , ThinPrep Imaging System with Manual Evaluation 02/21/2022 13:08 [facility] Specimen Adequacy Satisfactory for Evaluation - transformation zone component present 02/21/2022 13:08 [facility] General Categorization Negative for intraepithelial lesion or malignancy 02/21/2022 13:08 [facility] Attestation . 02/21/2022 13:08 [facility] at 1308 Clinical History See below 02/22/20 13:08 [facility] Performing Lab [facility] 02/21/2022 13:08 [facility] Scanned Images 02/21/2022 13:08 [facility] Papanicolaou smear specimen (specimen) CERVIX UTERI STRUCTURE / Unknown 02/10/2022 22:04 EDT 02/13/2022 13:45 EST us Priyanka Mahmood DRY BOX OPERATOR PATHOLOGY ORDERABLES Final Re sult [facility] [address] [place] [address] documented in this encounter Visit Diagnoses Diagnosis Acute candidiasis of vulva and vagina documented in this encounter Care Teams Oracle Business Analyst Relationship Specialty Start Date End Date Unknown, ProviderMD PCP - General 10/31/18 03/08/23 Dandy Driscoll APRN [address] [place] [address] [address] [place] [address] PCP - General 03/09/23 Unknown, ProviderMD 10/31/18 documented as of this encounter
--- OUTSIDE RECORDS SUMMARY | 2024-02-27 19:32 | XMS_ITS | Encounter Summary ---
Author Organization [facility] Address [address] [place] [address] Care Team Providers Care Review Analyst Name Role Phone Unknown, Provider Primary Care Provider Unava ilable Encounter Details Date Type Department Care Team (Latest Contact Info) Description 11/14/2017 13:27 EDT - 11/14/2017 23:59 EDT Hospital Encounter [address] [address] Unknown, Provider, Discharge Disposition: Home or Self [...] Code Departure Means Destination Home or Self Prison documented in this encounter Plan of Treatment Not on file documented as of this encounter Visit Diagnoses Not on filedocumented in this encounter Care Teams Review Analyst Relationship Specialty Start Date End Date Unknown, ProviderMD PCP - General 05/05/14 10/30/18 documented as of this encounter
--- OUTSIDE RECORDS SUMMARY | 2024-02-27 19:32 | XMS_ITS | Encounter Summary ---
Author Organization [facility] Address [address] [place] [address] Care Team Providers Care Electron Microscopist Name Role Phone Unknown, Provider Primary Care Provider Unava ilable Encounter Details Date Type Department Care Team (Late st Contact Info) Description 05/05/2014 Results Only [facility] [phone] Janeen Payne, LETI [address] [place] [address] [address] [place] [address] Social History Tobacco Use Types Packs/Day Years [...] Name Priority Date/Time Associated Diagnosis Comments PAP TEST- RESULT ONLY Routine 05/05/2014 0:00 EST documented in this encounter Results * PAP TEST- RESULT ONLY (05/05/2014 0:00 EST) Pathology Report: CYTOPATHOLOGY REPORT Reports generated via electronic interface contain original data; however they are lacking the format of the original report. Caution should be taken when reading/interpreti ng unformatted reports. Name: ? MARIANO SURYA ? Accession #: ? [id number] ? : ? 1950 (Age: 64) ??F ?Collect Date: ? 05/05/2014 ? Location: ? [facility] ? Receive Date: ? 05/06/2014 ? Provider: JANEEN PAYNE [employer]ER Copy to: ? Final Report SPECIMEN ADEQUACY ? Satisfactory for Evaluation - transformation zone component present GENERAL CATEGORIZATION ? Negative for Intraepithelial Lesion or Malignancy ?? Last Menstrual Period: 06/07/2001 Other: Additional clinical information: All normal steward/stewardess night clinical/tx history Specimen/Source: ??Pap Test, Cervix/Endocervix, ThinPrep Imaging System with manual evaluation Document reviewed and electronically signed by: ? Zuleyma Wahl, CT(ASCP) ? Report ??Date: 05/14/2014 12:43 HPV with Pap Test ? Date Ordered: ? 05/14/2014 ? Status: ?? Signed Out ?Date Complete: ? 05/18/2014 ? By: ??System Interface ? Date Reported: ? 05/18/2014 ? Interpretation RESULT: Negative for HPV. No E6 or E7 mRNA is detected from HPV types 16,18,31,33,35, 39,45,51,52,56,58, 59,66, and 68 by talent development specialist mediated amplification. Comments Document reviewed and electronically signed by: ? System Interface ? Report date: 05/18/2014 By the signature above, the attending physician certifies that he/she has personally conducted a gross and/or microscopic examination of the described specimens and rendered or confirmed the above diagnosis. End of Report [facility] 05/05/2014 05/06/2014 us Janeen Payne MANAGER BOOK PATHOLOGY ORDERABLES Final Resu lt [facility] [address] [place] [address] documented in this encounter Visit Diagnoses Not on filedocumented in this encounter Care Teams Electron Microscopist Relationship Specialty Start Date End Date Unknown, Provider, PCP - General 05/05/14 10/30/18 documented as of this encounter
--- OUTSIDE RECORDS SUMMARY | 2024-02-27 19:32 | XMS_ITS | Continuity of Care Document ---
Author Organization [facility] Address [address] [place] [address] Care Team Providers Care Category Director Name Role Phone YamilaDandy Carola Primary Care Physician Encounter NCTY_SC Date(s): 02/05/24 - 02/05/24 [facility] [address] [place] [address] Encounter Diagnosis CHF (congestive heart failure)(Discharge Diagnosis) - 02/05/24 Discharge Disposition: Home or Self Care Attending Physician: Viktor MEDRANO, Carlos Coffey MD Allergies, Adverse Reactions, Alerts Substance Criticality Severity Reaction Reaction Severity Status ALCOHOL 1 High criticality Moderate Act veronica azithromycin Unable to assess criticality Unknown Swollen face Active tetanus toxoids Unable to assess criticality Unknown Active Tape 2 High criticality Severe Unknown Act veronica meperidine Unable to assess criticality Unknown Bewilderment Active penicillins Unable to assess criticality Unknown Swelling Other Active 1Rubbing 2Outside Source Comment: Rips the skin off when removing Assessment and Plan Future Scheduled Tests Laboratory* Basic Metabolic Panel [...] rded pneumococcal 23-polyvalent vaccine 02/13/08 Record ed [id number]-[id number]-[id number]-1273 (booster only) vacc 09/23/21 Recorded JJWS-VtY-3-mRNA-1273 (booster only) vacc 07/09/20 Recorded influenza, unspecified formulation 01/07/21 Record ed influenza, unspecified formulation 01/02/20 Record ed influenza, unspecified formulation 02/06/19 Record ed influenza, unspecified formulation 01/22/18 Record ed SARS-CoV-2 (COVID-19) mRNA-1273 vaccine 07/09/20 R ecorded SARS-CoV-2 (COVID-19) mRNA-1273 vaccine 06/11/20 R ecorded SARS-CoV-2 (COVID-19) mRNA-1273 vaccine 5 06/11/20 Recorded pneumococcal 13-valent conjugate vaccine 02/06/19 Recorded zoster vaccine live 01/22/13 Recorded Novel [id number], all formulation 04/29/09 Recorded pneumococcal 7-valent vaccine 04/09/00 Recorded Not Given Vaccine Date Status Refusal Reason Td(adult) unspecified formulation 6 04/27/20 Not G iven Patient Refuses 1Result Comment: Verified by June at [facility] 2Result Comment: Verified by June at [facility] 3Result Comment: Given at the pharmacy-see record 4Result Comment: [facility] 5Result Comment: 1st vaccine 6Result Comment: Last Modified by Azra Dykes, Tea And Spice Supervisor 04-27-2020, 11:54 Medications !-DuoNeb 0.5 mg-2.5 mg/3 mL inhalation solution 3 mL, NEB, QID, # 120 EA, 0 Refill(s), [facility]acy: [facility], 157, cm, 04/21/22 4:43:00 EST, Height/Length Dosing, 122.47, kg, 04/21/22 4:43:00 EST, Weight Dosing Start Date: 04/21/22 Status: Ordered 1 nebulizer machine 1 nebulizer machine, asthma 493.9 and copd exacerbation J44.1, nebulizers treatement qid and q3-4h prn, Supply, See instructions, # 1 EA, 0 Refill(s) Start Date: 04/21/22 Status: Ordered Acidophilus oral capsule 1 cap, Oral, Daily, # 100 cap, 3 Refill(s), Pharmacy: [facility], 157, cm, 03/27/23 9:48:00 EST, Height, 122.7, kg, 02/01/24 12:44:00 EDT, Weight Dosing Start Date: 02/01/24 Status: Ordered Albuterol (Eqv-ProAir HFA) 90 mcg/inh [...] wheezing, # 180 mL, 3 Refill(s), Pharmacy: [facility], 157, cm, 04/21/22 4:43:00 EST, Height/Length [...] BID, # 14 tab, 0 Refill(s), Pharmacy: [facility], 157, cm, 03/27/23 9:48:00 EST, Height, 123.5, kg, 11/21/23 11:28:00 EDT, Weight Dosing Start Date: 12/13/23 Stop Date: 12/20/23 Status: Ordered Bactrim DS 800 mg-160 mg oral tablet 1 tab, Oral, BID, # 14 tab, 0 Refill(s), Pharmacy: [facility], 157, cm, 03/27/23 9:48:00 EST, Height, [...] Daily, # 90 cap, 0 Refill(s), Pharmacy: [facility], 157, cm, 03/27/23 9:48:00 EST, Height, 123.5, kg, 11/21/23 11:28:00 EDT, Weight Dosing Start Date: 12/06/23 Status: Ordered clindamycin 300 mg oral capsule See Instructions, TAKE 2 CAPSULES BY MOUTH ONCE PRIOR TO DENTAL PROCEDURE-2 upcoming dental appointments, # 4 cap, 0 Refill(s), Pharmacy: [facility], 157, cm, 03/27/23 9:48:00 EST, Height, [...] instructions, # 1 EA, 0 Refill(s), Pharmacy: [facility] Start Date: 12/04/22 Status: Ordered lancets lancets, tests blood sugar once daily, Supply, See instructions, # 100 EA, 3 Refill(s), Pharmacy: [facility] Start Date: 12/04/22 Status: Ordered loperamide [...] A DAY Start Date: 08/30/23 Status: Ordered miconazole 2% topical cream 1 che, Topical, BID, # 60 g, 0 Refill(s), Pharmacy: [facility], 157, cm, 03/27/23 9:48:00EST, Height, 122.7, kg, 02/01/24 12:44:00 EDT, Weight Dosing Start Date: 02/01/24 Status: Ordered Myrbetriq 25 mg oral tablet, extended release 25 mg = 1 tab, Oral, Daily, do not crush or chew; total daily dose 75 mg (50 + 25), # 90 tab, 3 Refill(s), Pharmacy: [facility], 157, cm, 02/27/23 9:53:00 EST, Height, 118.55, kg, 03/02/23 12:53:00 EST, Weight Dosing Start Date: 03/08/23 Stop Date: 03/02/24 Status: Ordered Myrbetriq 50 mg oral tablet, extended release 50 mg = 1 tab, Oral, Daily, do not crush or chew, # 90 tab, 3 Refill(s), Pharmacy: [facility], 157, cm, 02/27/23 9:53:00 EST, Height, 118.55, [...] DAILY, # 100 EA, 3 Refill(s), Pharmacy: [facility], 157, cm, 03/27/23 9:48:00 EST, Height, 123.5, kg, 11/21/23 11:28:00 EDT, Weight Dosing Start Date: 01/13/24 Status: Ordered ONETOUCH ULTRA TEST STRIP ONETOUCH ULTRA TEST STRIP, See Instructions, USE TO TEST GLUCOSE LEVELS ONCE DAILY, # 100 strip, 3 Refill(s), Pharmacy: [facility], 157, cm, 03/27/23 9:48:00 EST, Height, 123.5, kg, 11/21/23 11:28:00 EDT, Weight Dosing Start Date: 01/13/24 Status: Ordered ONETOUCH ULTRA2 GLUCOSE SYST ONETOUCH ULTRA2 GLUCOSE SYST, See Instructions, USE TO TEST GLUCOSE LEVELS ONCE DAILY, # 1 EA, 0 Refill(s), Pharmacy: [facility], 157, cm, 02/14/23 11:37:00 EST, Height, 119.07, kg, 02/14/23 11:38:00 EST, Weight Dosing Start Date: 02/23/23 Status: Ordered prednisoLONE acetate 0.12% ophthalmic suspension 0 Refill(s) Start Date: 10/18/22 Status: Ordered Symbicort 160 mcg-4.5 mcg/inh inhalation aerosol 2 puffs, Inhale, BID, # 10.2 g, 3 Refill(s), Pharmacy: [facility], 157, cm, 03/27/23 9:48:00 EST, Height, 122.7, kg, 02/01/24 12:44:00 EDT, Weight Dosing Start Date: 02/01/24 Status: Ordered test strips test strips, test blood sugar daily, Supply, See instructions, # 100 EA, 3 Refill(s), Pharmacy: [facility] Start Date: 12/04/22 Status: Ordered tobramycin 0.3% ophthalmic solution 1 drops, Eye-Both, QID, # 5 mL, 0 Refill(s), Pharmacy: [facility], 157, cm, 04/22/22 20:46:00 EST, Height/Length Dosing, 122.47, kg, 04/22/22 20:46:00 EST, Weight Dosing Start Date: 06/13/22 Stop Date: 06/20/22 Status: Ordered torsemide 20 mg oral tablet 20 mg = 1 tab, Oral, Daily, # 90 tab, 4 Refill(s), Pharmacy: [facility], 157, cm, 04/22/22 20:46:00 EST, Height/Length [...] acute postoperative blood loss Confirmed 01/25/21 Active Anxiety Confirmed Active Asthma 1 Confirmed Active At risk for infection Confirmed Active Hematuria Confirmed Active Body mass index 40+ - severely obese Confirmed 02/14/18 Active Bronchitis Confirmed Active Candidal intertrigo Confirmed Active Candidiasis of vulva Confirmed Active [...] a Covid PCR test this afternoon. 3per [facility] ortho note Procedures Procedure Date Related Diagnosis [...] (No HPV done) 3Normal. 4Revision in 2012 Vital Signs Most recent to oldest [Reference Range]: 1 Peripheral Pulse Rate [60-100 bpm] 85 bp m (02/05/24 3:23 PM) Blood Pressure [90-120/60-80 mmHg] 167/7 2mmHg *HI* (02/05/24 3:23 PM) Mean Arterial Pressure, Cuff [65-140 mmH g] 104 mmHg (02/05/24 3:23 PM) Weight 124.5 kg (02/05/24 3:23 PM) Weight Measured (lbs) 274.475 lb (02/05/24 3:23 PM) Weight Dosing 124.500 kg (02/05/24 3:23 PM) Social History Social History Type Response Tobacco Former tobacco user Tobacco Use:. Sex Female Sex Representation Female (finding) Physician Outpatient Note * [facility]: PERFORM Event Display: Office Clinic Note Physician Authored Date: [id number] SURYA KNIGHT :1950 Age:73 years Sex:Female Visit Date:02/05/2024 Primary Care Physician: Dandy Driscoll CARPENTER/LABOR Date:??February 05, 2024 Referring:??Dandy Driscoll Re:??Surya Knight :??1950 73-year-old Problems: ?? 1. ??Aortic stenosis. ?? 2. ??Congestive heart failure. ?? HPI:??February 05, 2024. ??Patient lives alone and fairly independently. ??She does her own cooking and cleaning. ??She can sweep her house. ??She does not have a yard to tend to. ??She has somebody to do her laundry, she does not have a car. ??She does her own shopping. ??She rides in a cart. ??Sheshops at [facility]. ??She was last able to walk around [facility] about 2 years ago. ??If she were to walk at [facility] she would become excessively fatigued. She walks the driveway about 20 minutes 4 days/week. ??She gets by on crutches. ??Walking is not easy for her. No chest pain. ??Her breathing is overall stable. ??Denies PND orthopnea edema. ??Sleeps on 1 pillow. ??She has sleep apnea. ??Her CPAP is buried in the upstairs of her house. ??It is inaccessible. ??Denies PND/orthopnea. ??No palpitations. ??No presyncope or syncope. ??No bleeding problems. ? Data: Cardiac risk factors: Positive hypertension. ??Positive cholesterol. ??Negative diabetes. ??Positive family history, mother with early NM. ??Positive remote tobacco. ??Quit 1999. Social history: Activity profile as above. ??Alcohol as above. ??No tobacco. Past medical history: Renal impairment. ??Morbid obesity. ??Peripheral edema. ??Anemia. ??Followingpostoperative blood loss. ??Asthma. ??Vulvar candidiasis. ??Cough. ??Cyanosis. ??Depression. ??Leg edema. ??Lichen sclerosis. ??THR. ??TKR. ??Osteoarthritis. ??Intestinal disaccharidase deficiency. ??Venous insufficiency. ??Restless leg. ??Spondylolisthesis. ??Spondylosis. ??TMJ. ??Tracheobronchitis. ??Urge incontinence. Review of systems: A 10-point review of systems was obtained. ??Pertinent positives as described inHPI, all others negative. Allergies: Contrast allergies: ?? Echo:??January 11, 2024. ??LVEF 65%. ??Normal size. ??Normal wall thickness. ??No segmental wall motion abnormalities. ??Right ventricle normal size and function. ??Left atrium normal. ??Right atrium normal. ??Atrial septum not well- visualized. ??Aortic valve probably trileaflet. ??Aortic valve area1.1 cm??. ??Peak velocity 3.2 m/s. ??Mean gradient 18.8 mmHg. ??Stroke-volume index 25.5 (35). ??Aortic valve area index not available. ??By visual assessment there is possibly severe aortic stenosis, low-flow low gradient. ??Trace AI. ??Trace MR. Trace TR. ??Aortic root normal. ??Ascending normal. ??IVC normal. ??Pericardial fat pad. ??Diastolic indices indeterminant. ??Pulmonary pressure not assessable. April 24, 2022. ??Sinus rhythm. ??LVEF 65-70%. ??Normal size. ??Mild concentric LVH. ??No segmental wall motion abnormalities. ??Diastolic indices normal, no evidence elevated left-sided filling pressure. ??GLS -16.2%. ??Right ventricle mildly dilated, normal function. ??Left atrium mildly dilated, 36.6 (34). ??Right atrium normal. ??Aortic valve trileaflet. ??Mild aortic stenosis. ??Valve area1.4 cm??. ??Peak velocity 2.8 m/s. ??Mean gradient 17 mmHg. ??DOI 0.53. ??Trace AI. ??Trace MR. ??Trace TR. ??Pulmonary pressure not assessable. ??Pericardium normal. ??Aortic root normal 3.0. ??Ascending normal 3.0. ??Arch normal 2.3. ??No coarctation. ??No PDA. ??IVC normal. ??No ASD VSD PFO. ??Eprime 5, 9 (7, 10). ??E/E prime average less than 14. ??TR max not available. June 17, 2020. ??LVEF 65-70%. ??No segmental wall motion abnormalities. ??Mild aortic stenosis. ??Aortic valve area 1.4 cm??. ??Peak velocity 2.8 m/s. ??Mean gradient 15 mmHg. ??DOI 0.53. ??Trace AI. ?? Cardiac MRI: ?? Stress: ?? LHC: ?? Holter: ?? Event monitor: ?? EKG:??February 05, 2024. ??Sinus rhythm 82 bpm. ??Normal axis. ??No acute change. ??QT/QTc 3 7 4/437ms ?? Radiology: ?? Pulmonary function test: ?? Labs: ?? Medications: Aspirin 81 mg daily, torsemide 20 mg daily, Entresto 24/26 mg twice daily Bactrim, naproxen. ??Myrbetriq, megestrol, loperamide, acidophilus, Atrovent, cyclobenzaprine, cranberry, clindamycin, cephalexin, cannabidiol, bupropion, Symbicort, ?? Exam: Blood pressure:??167/72 Heart rate:??85 Oxygen saturation:??92% Weight:??274 pounds General: Patient alert oriented appropriate conversant. HEENT: JVP 7 cm sitting: Heart: Regular rate and rhythm, S1-S2, no murmur gallop or rub Lungs:??Clear to auscultation bilaterally. Abdomen: Soft. ??Nontender. ??Nondistended. Extremities: No edema lower extremities bilaterally ? Assessment: 1.?Aortic stenosis. June 17, 2020. ??Mild aortic stenosis. ??Aortic valve area 1.4 cm??. ??Peak velocity 2.8 m/s. ??Mean gradient 15 mmHg. ??DOI 0.53. ??Trace AI. April 24, 2022. ??Aortic valve trileaflet. ??Mild aortic stenosis. ??Valve area 1.4 cm??. ??Peak velocity 2.8 m/s. ??Mean gradient 17 mmHg. ??DOI 0.53. ??Trace AI. ??Stroke-volume index 32.4 (35). ??Aortic valve area index 0.6 (0.6). January 11, 2024. ??Aortic valve probably trileaflet. ??Aortic valve area 1.1 cm??. ??Peak velocity 3.2 m/s. ??Mean gradient 18.8 mmHg. ??Stroke-volume index 25.5 (35). ??Aortic valve area index not available. ??By visual assessment there is possibly severe aortic stenosis, low-flow low gradient. ??Trace AI. Today, February 05, 2024: Patient is minimally functional. ??Probably performs less than 4 METS on aregular basis. ??She does walk a little. ??She does become weak if she were to walk in a significant fashion ([employer]). ??She has felt this way for about 2 years. Valve would appear to be progressing . ??Would appear to have paradoxical low-flow low gradient aortic stenosis. ??Probably moderate to severe. Will repeat echo 6 months. Patient is to go through hysterectomy for likely uterine cancer at the end of this month. ??I have discussed this with anesthesia at [facility]. ??It sounds like this is a high-priority surgery and needs to be done soon. ?? Thank you for allowing??me to participate in this patient's care. Sincerely: Carlos Hoang MD, [facility] Disposition:??We will see her back 3 months Time:??40???Minute [id number] interview with patient. ?Minute chart review, development, completion Electronically Signed on 02/05/2024 16:29 EDT [facility], Carlos Coffey MD Patient Care team information Care Team Personnel Name: Dandy Driscoll NP Position: Physician Member Role: Informed Provider Address: [address] Care Team Related Persons Name: ASH KNIGTH Insurance Providers Guarantor name: SURYA KNIGHT Health Plan Information #: 1 Payer: [employer] H[employer] Member Number: [id number] Policy Number: NA Health Plan Information #: 2 Payer: [employer] Member Number: [id number] Policy Number: NA
--- OUTSIDE RECORDS SUMMARY | 2024-02-27 19:32 | XMS_ITS | Encounter Summary ---
Author Organization [facility] Address [address] [place] [address] Care Team Providers Care Forestry Extension Specialist Name Role Phone Unavailable Primary Care Provider Unavailabl e Encounter Details Date Type Department Care Team (Late st Contact Info) Description 05/30/2007 Results Only [facility] [address] [place] [address] Kaya Fleming MD [address] [place] [address] Social History Tobacco Use Types [...] Priority Date/Time Associated Diagnosis Comments CYTOPATHOLOGY Routine 05/30/2007 0:00 EST documented in this encounter Results * CYTOPATHOLOGY (05/30/2007 0:00 EST) Pathology Report: CYTOPATHOLOGY REPORT Reports generated via electronic interface contain original data; however they are lacking the format of the original report. Caution should be taken when reading/interpreti ng unformatted reports. Name: ? SURYA KNIGHT ? Accession #: ? [id number] : ? 1950 (Age: 57) ??F ?Collect Date: ? 05/30/2007 Location: ? [facility] ? Receive Date: ? 06/03/2007 Provider: ?KAYA FLEMING MD Copy to: ? Specimen/Source: ?ThinPrep Pap Test, Endocervix, processed on Hum ThinPrep Imaging System, with manual evaluation Last Menstrual Period: ? 2000 Other: ? Additional clinical information: tubal 1989 miscarriage HPVA - HPV testing requested if ASC-US on the current ThinPrep Pap test. ? SPECIMEN ADEQUACY ? Satisfactory for Evaluation - transformation zone component absent GENERAL CATEGORIZATION ? Negative for Intraepithelial Lesion or Malignancy ? Document reviewed and electronically signed by: ? Irais Mann, SCT(ASCP) ? Report Date: ??06/05/2007 15:10 End of Report [facility] 05/30/2007 06/03/2007 us Kaya Fleming MD PATHOLOGY ORDERABLES Final Re sult [facility] [address] [place] [address] documented in this encounter Visit Diagnoses Not on filedocumented in this encounter
--- OUTSIDE RECORDS SUMMARY | 2024-02-27 19:33 | XMS_ITS | Encounter Summary ---
Author Organization [facility] Address [facility] [place] [address] Care Team Providers Care Desk Attendant Name Role Phone Dandy Driscoll APRN Primary Care Provider [phone] Reason for Visit * Reason Comments Gynecologic Exam Encounter Details Date Type Department Care Team (Late st Contact Info) Description 01/01/2024 9:00 AM EDT Office Visit [place] [address] Jordyn Francisco MD [facility] OBSTETRICS [place] [address] Endometrial cancer determined by uterine biopsy Social History Tobacco Use Types Packs/Day Years Used Date Smoking Tobacco: Former Cigarettes Q uit: 10/1978 Smokeless Tobacco: Never Alcohol Use Standard Drinks/Week Comments No 0 (1 standard drink = 0.6 oz pur e alcohol) [facility] Utilities Answer Date Recorded In the past 12 months has [employer], gas, oil, or water [employer] threatened to shut off services in your [...] place to sleep or slept in a penitentiary (including now)? No 05/20/2023 DH IPV Inpatient Questions Answer Date Recorded Does Anyone Try to Keep You From Having Contact with Others or Doing Things Outside Your Home? no 07/24/2023 Feels Threatened by Someone no 07/08 Feels Unsafe at Home or Work/School no 07/24/2023 Physical Signs of Abuse Present no 07/24/2023 Sex and Gender Information Value Date Recorded Sex Assigned at Not on file Gender Identity Not on file Sexual Orientation Not on file documented as of this encounter Last Filed Vital Signs Vital Sign Reading Time Taken Comments Blood Pressure 137/65 01/01/2024 9:20 AM EDT Pulse 101 01/01/2024 9:20 AM EDT Temperature 36.9 ??C (98.5 ??F) 01/01/2024 9:20 AM ED T Respiratory Rate 24 01/01/2024 9:20 AM EDT Oxygen Saturation 97% 01/01/2024 9:20 AM EDT Inhaled Oxygen Concentration - - Weight 122.5 kg (270 lb) 01/01/2024 9:20 AM EDT Height 157.5 cm (5' 2.01) 01/01/2024 9:20 AM ED T Body Mass Index 49.37 01/01/2024 9:20 AM EDT documented in this encounter Progress Notes * Jordyn Francisco MD - 01/01/2024 9:00 AM EDT Gynecologic Oncology Clinic Division [place] [address] Dandy Driscoll pcp Gynecologic Oncology Clinic Note: Out patient follow up visit. Reason for visit/referral: Atypical endometrial hyperplasia History of present illness: Stacy is a 73 yo who presented for EIN with now focal endometrial carcioma. She was scheduled to undergo surgery, but has many social barriers to a safe procedure including limited running water and no social support/rides/people to check on her post op. Patient previously managed with hormone therapy with Megace. She has now organized postoperative care and is ready to proceed with surgery. Is able to have surgery sometime in the month of February. We requested she have a transvaginal US performed prior to surgery to assess size of the uterus prior to surgery given limitation of assessment of size by exam alone. TVUS has not been performed yet. She was referred to PAT and had a telehealth visit. She did not have bleeding the past 3 weeks, but stared to have moderate bleeding on the 28 of December. No cramping, abdomenal pain, bloating, nausea, vomiting, constipation, dizziness, or light headedness. Not taking Megase currently. Continues to have intermittent loose stoles. Has RCT and plans to set up the rides for the surgery later today. A support through [employer] that Stacy has identified as a trustworthy person is planning to invite her into their BnB for 23 days. They can only welcome her on 02/07, so she is wondering if she can haveadmission 02/06-02/07. She took her bactrim abx course for a UTI in November, but continues to have dysuria. She plans to see her PCP on 01/07 and the urologist the following week on 01/20. On 01/10 having a Scarfer Operator visit in [place]. SOB if does not take water pill. No chest pain. Fasting blood sugar 152 this morning. Not taking medications for diabetes. Has been in discussion about starting meds with PCP. Last A1c was 7 11/21/23. Dr. Driscoll in [place]. 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 Problem List Patient Active Problem List Diagnosis Code Impaired renal function N28.9 Tibial component revision L knee (11/11/2012, [facility]) Z96.659 History of total right knee replacement, R TKA performed in 2001 Z96.651 Pain in left hip M25.552 Primary osteoarthritis of left hip M16.12 Morbid obesity with BMI of 40.0-44.9, adult E66.01, Z68.41 02/13/2018 S/P left total hip arthroplasty (Dr. 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 Foci of adenocarcinoma, endometrioid type (FIGO grade 2), associated with EIN. 2. Changes consistent with progestin effect. 3. Endometrial stromal plasma cells (chronic endometritis) Identified. 09/18/2023 PATH Endometrial biopsy: Foci of residual EIN with squamous metaplasia, progestin effect, and chronic endometritis admixed with blood clot and cervical mucosa. Gynecologic history: Menarche was approximately age: [age] years old menopause approximately age: at least 7 years ago, maybe longer Number of pregnancies: 1 ruptured ectopic Oral contraceptive/ control pill use: used when she was 19-20 yo Menopausal hormone therapy use: denies. Other contraceptive history: denies Pap smears: Last Pap in 02/2022, NILM, denies history of abnormal pap smears History of STIs, PID, endometriosis: denies History of Ovarian cysts: denies Past medical history: - CHF, follows with Dr. Hoang in [place], [place] - COPD, does not require O2 or CPAP - GERD - IBS - HTN - Possible T2DM (History of Jardiance use) - BMI 55, was on Ozempic, no longer taking (stopped 4-6 months ago in preparation for possible surgery) Past surgical history: - Ruptured ectopic, unilateral salpingectomy via pfannenstiel incision, unsure which fallopian tube, required blood transfusion (1983) - 3 knee surgeries - 2 hip surgeries - Broken leg Family history: Breast: denies Endometrial: denies Ovarian: denies Colon: father (60-70's) Pancreas: denies Thyroid: denies Other: denies Social history: Tobacco history: when in her teens Alcohol history: denies Drug use: occasionally, in the past Herbal/alternative therapies: denies 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[place]; 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 fluticasone propion-salmeteroL (Advair Diskus) 500-50 mcg/dose Disk with Device 1 puffs, Inhale, BID, # 28 EA, 4 Refill(s), Pharmacy: [id number], 157, cm, 04/22/22 20:46:00 EST, Height/Length Dosing, 122.47, kg, 04/22/22 20:46:00 EST, Weight Dosing Yes naproxen-capsicum oleoresin 500 mg- 0.025 % Kit Take 500 mg by mouth. Yes albuteroL (Proventil, Ventolin) (2.5 mg/3 mL) (0.083 %) Solution for Nebulization 2.5 mg. Yes ipratropium-albuteroL (Duoneb) 0.5 mg-3 mg(2.5 mg base)/3 mL Solution for Nebulization 3 mLs. Yes torsemide (Demadex) 20 mg tablet Take 20 mg by mouth daily. Yes sacubitriL-valsartan (Entresto) 24-26 mg tablet Take by mouth. Yes aspirin EC 81 mg EC (DR) tablet Take 81 mg by mouth daily. Yes lactobacillus (BACID) Capsule Take 1 tablet by mouth daily. Yes UNABLE TO FIND AZO-Yeast Yes acetaminophen (Tylenol) 500 mg Tablet Take 2 tablets by mouth every 8 hours as needed for Pain. Yes Lactase (Lactaid Fast Act) 9,000 unit Tablet Take 2 tablets by mouth 3 times daily (with meals). Yes calcium carbonate (Tums) 200 mg calcium (500 mg) Tablet, Chewable Take 3 tablets by mouth as neededfor Heartburn. Yes augmented betamethasone dipropionate (DIPROLENE-AF) 0.05 % Ointment APPLY TOPICALLY OT THE AFFECTEDAREA(S) TWICE WEEKLY. DO NOT EXCEED 45 GRAMS PER WEEK. TO REPLACE CLOBETASOL Yes NYSTOP Powder APPLY POWDER TO THE ABDOMINAL PANNUS TOPICALLY TWICE DAILY Yes psyllium seed, with sugar, (METAMUCIL, SUGAR, ORAL) Take 1 Scoop by mouth 2 times daily as needed (constipation). Yes buPROPion (WELLBUTRIN XL) 150 mg Tablet Extended Release 24 hr 300 mg daily. Yes Cranberry 1,000 mg Cap Take by mouth 2 times daily. Yes levalbuteroL (XOPENEX HFA) 45 mcg/actuation HFA Aerosol Inhaler Inhale 2 puffs into the lungs every4 hours as needed. Yes Allergies: Allergies Allergen Reactions Adhesive Tape Rips the skin off when removing Isopropyl Alcohol Rash Meperidine Hcl Other (See Comments) Very Loopy Penicillins Other (See Comments) SWELLS UP (age 15) [facility] Penicillin Allergy Risk Assessment 11/05/2020: Low risk penicillin allergy. OK to receive full dose of cefazolin, cefuroxime, or any 3rd or 4th+ generation cephalosporin. [facility] Penicillin Allergy Risk Assessment 05/08/2023: Low risk penicillin allergy. OK to receive full dose of cefazolin, cefuroxime, or any 3rd or 4th+ generation cephalosporin. [facility] Clinic MUSICAL PERFORMER to place Allergy referral for formal penicillin allergy evaluation. Patient open to a phone consult from all.Clinic Propoxyphene Hcl Itching Performance status: ECOG/WHO score = 1; KPS = 70. Her normal daily activities include walking around the house for less than 50% of the day. She is only able to walk around the house with canes, if she walks too fast will fall. Can shovel her steps outside her house herself without getting winded, though only is a few small steps. Could not shovelher whole driveway. Currently lives alone. Currently has no one that helps her. Does sometimes have folks from [employer] who will help her out. Vital signs: BP 137/65 (Patient Position: Sitting) Pulse (!) 101 Temp 36.9 ??C (98.5 ??F) (Temporal) Resp 24 Ht 157.5 cm (5' 2.01) Wt 122.5 kg (270 lb) SpO2 97% BMI 49.37 kg/m?? Physical examination: General: She is alert and oriented, well-groomed and dressed, no obvious distress. She ambulates easily. Rises from the seated position quickly and with ease. Cardiac: RRR, no murmurs Lungs: CTAB, normal effort of breathing Abdomen:Soft, non tender, non distended. No HSM, no palpable masses. Impression/plan: Stacy is a 73 y.o. woman with a diagnosis of EIN now with endometrial carcinoma. Plan for surgery robot LAVH BSO lymph node assessment. - Surgical consents were obtained at the last visit and scanned into media, consents to med studentexam - Preop material provided and discussed today - s/p Telehealth visit with Same Day 12/14/23 - Fu on cardiology appt, secretaries messaged to obtain records - Fu on PCP DM / recurrent UTI management appt - High alert message was sent to secretaries to coordinate TVUS prior to procedure - Continue nystatin powder use in abdominal creases - Plan for overnight admission, as support person is only available starting 02/07, Aileen messaged - Messaged social work Denita ([id number]) for lifting chair per patient request, added small shower chair request Surgery: RA-TLH, BSO, SLND Preop Labs: S/p T&S, CBC, CMP on 05/08/23, defer to PAT if desires Antibiotics: 500 mg Flagyl, 2g Ancef (<120 kg), Anticoagulation: 5000U Heparin, SCD's Additional Medication: Pyridium Pending Surgery Date: 02/07/24 Tegan Sandy DO, PGY-3 Obstetrics and Gynecology 01/01/24 MANAGER GARAGE ONC ATTENDING I personally spent a total of 30 minute visit independently reviewing relevant interval data including imaging, lab tests, counseling and coordinating care for Stacy Knight. We discussed the plan and rationale for ongoing care. Jordyn Francisco MD documented in this encounter Plan of Treatment Upcoming Encounters Date Type Department Care Team (Late st Contact Info) Description 03/04/2024 12:00 PM EST Office Visit [place] [address] Jordyn Francisco MD [facility] OBSTETRICS [place] [address] documented as of this encounter Visit Diagnoses Diagnosis Endometrial cancer determined by uterine biopsy documented in this encounter Care Teams Desk Attendant Relationship Specialty Start Date End Date Dandy Driscoll APRN [address] [place] [address] SHELLI Reich [phone] PCP - General Family Medicine 01/20/16 documented as of this encounter
--- OUTSIDE RECORDS SUMMARY | 2024-02-27 19:33 | XMS_ITS | Encounter Summary ---
Author Organization [facility] Address [facility] [place] [address] Care Team Providers Care Salvage Inspector Name Role Phone Dandy Driscoll APRN Primary Care Provider [phone] Encounter Details Date Type Department Care Team (Late st Contact Info) Description 01/07/2024 Notes Only Care Management [facility] [place] [place] [phone] June Allen, RADIOLOGICAL TECHNICIAN Social History Tobacco Use Types Packs/Day Years Used Date Smoking Tobacco: Former Cigarettes Q uit: 10/1978 Smokeless Tobacco: Never Alcohol Use Standard Drinks/Week Comments No 0 (1 standard drink = 0.6 oz pur e alcohol) [facility] Utilities Answer Date Recorded In the past 12 months has th e electric, gas, oil, or water company threatened to shut off services in your [...] place to sleep or slept in a senior living (including now)? No 05/20/2023 IPV Inpatient Questions Answer Date Recorded Does [...] on file documented as of this encounter Progress Notes * June Allen MSW - 01/07/2024 2:38 PM EDT Gynecologic Cancer Program: Social Work I attempt to contact Stacy to review her request for a lift to use post- operatively. LM with my contact information and stated purpose of call, encouraging call back at her convenience. Completed today: Care Coordination June ???Denita?? MARIALUISA Allen Social Work, Breast and Gynecology Oncology documented in this encounter Plan of Treatment Upcoming Encounters Date Type Department Care Team (Late st Contact Info) Description 03/04/2024 12:00 PM EST Office Visit [place] [address] Jordyn Francisco MD [facility] [place] [address] documented as of this encounter Visit Diagnoses Not on filedocumented in this encounter Care Teams Salvage Inspector Relationship Specialty Start Date End Date Dandy Driscoll APRN [address] [place] [address] [place] [phone] PCP - General Family Medicine 01/20/16 documented as of this encounter
--- OUTSIDE RECORDS SUMMARY | 2024-02-27 19:33 | XMS_ITS | Encounter Summary ---
[place] [address] Care Team Providers Care Founder President And Ceo Name Role Phone Dandy Driscoll APRN Primary Care Provider [phone] Encounter Details Date Type Department Care Team (Late st Contact Info) Description 07/27/2023 Telephone Gyne[place] [address] Janette Michael, RN Social History Tobacco Use Types Packs/Day Years Used Date Smoking Tobacco: Former Cigarettes Q uit: 10/1978 Smokeless Tobacco: Never Alcohol Use Standard Drinks/Week Comments No 0 (1 standard drink = 0.6 oz pur e alcohol) [facility] Utilities Answer Date Recorded In the [...] place to sleep or slept in a retirement (including now)? No 05/20/2023 DH IPV Inpatient [...] encounter Miscellaneous Notes * Telephone Encounter - Janette Michael RN - 07/27/2023 2:32 PM EDT Patient is extremely concerned about the warnings on the medication Megace as she is a diabetic. She would like it confirmed with Dr. Ohara if this medication is safe to take. documented in this encounter Plan of Treatment Upcoming Encounters Date Type Department Care Team (Late st Contact Info) Description 03/04/2024 12:00 PM EST Office Visit [place] [address] Jordyn Francisco MD [facility] [place]ST[place] [address] documented as of this encounter Visit Diagnoses Not on filedocumented in this encounter Care Teams Founder President And Ceo Relationship Specialty Start Date End Date Dandy Driscoll APRN [address] [place] [address] SHELLI Reich [phone] PCP - General Family Medicine 01/20/16 documented as of this encounter
--- OUTSIDE RECORDS SUMMARY | 2024-02-27 19:33 | XMS_ITS | Encounter Summary ---
Author Organization [facility] Address [facility] [place] [address] Care Team Providers Care Guard Chief Name Role Phone Dandy Driscoll APRN Primary Care Provider [phone] Encounter Details Date Type Department Care Team (Late st Contact Info) Description 01/15/2024 Notes Only Care Management [facility] [place] [phone] June Allen, FARM CONTRACTOR BUYER Social History Tobacco Use Types Packs/Day Years Used Date Smoking Tobacco: Former Cigarettes Q uit: 10/1978 Smokeless Tobacco: Never Alcohol Use Standard Drinks/Week Comments No 0 (1 standard drink = 0.6 oz pur e alcohol) [facility] Utilities Answer Date Recorded In the past [...] place to sleep or slept in a fdc (including now)? No 05/20/2023 DH IPV Inpatient [...] Progress Notes * June Allen MSW - 01/15/2024 4:15 PM EDTSummary: Gynecologic Cancer Program: Social Work Note Per message from central control room operator-onc nursing team that Stacy's insurance rejected order for DME (manual lift), I attempt to contact Tsacy via home/cell phones to review. LM with my contact information and statedpurpose of call, encouraging call back at her convenience. Tried her on both phone multiple times today. Completed today: Care Coordination June ???Denita?? MARIALUISA Allen Social Work, Breast and Gynecology Oncology documented in this encounter Plan of Treatment Upcoming Encounters Date Type Department Care Team (Late st Contact Info) Description 03/04/2024 12:00 PM EST Office [place] [address] [facility] OBSTETRICS [place] [address] documented as of this encounter Visit Diagnoses Not on filedocumented in this encounter Care Teams Guard Chief Relationship Specialty Start Date End Date Dandy Driscoll APRN [address] [facility] [address] [place] [phone] PCP - General Family Medicine 01/20/16 documented as of this encounter
--- OUTSIDE RECORDS SUMMARY | 2024-02-27 19:33 | XMS_ITS | Encounter Summary ---
Author Organization [facility] Address [facility] [place] [address] Care Team Providers Care Transcription Typist Name Role Phone Dandy Driscoll APRN Primary Care Provider [phone] Encounter Details Date Type Department Care Team (Late st Contact Info) Description 12/05/2023 Notes Only Care Management [facility] [place] [phone] June Allen, HOT METAL CAR OPERATOR Social History Tobacco Use Types Packs/Day Years Used Date Smoking Tobacco: Former Cigarettes Q uit: 10/1978 Smokeless Tobacco: Never Alcohol Use Standard Drinks/Week Comments No 0 (1 standard drink = 0.6 oz pur e alcohol) [facility] Utilities Answer Date Recorded In the past [...] place to sleep or slept in a fpc (including now)? No 05/20/2023 IPV Inpatient Questions [...] Progress Notes * June Allen MSW - 12/05/2023 10:00 AM EDT Gynecologic Cancer Program: Social Work Note Per request from data security consultant-onc care team I investigate possibility of medication assistance for Stacy's prescribed Megace. There is currently no funding for this, and recommendation is for [employer] cards to lower her pharmacy cost. Several cards mailed to her home address with my contact information in case she would like to request more. Completed today: Medication Assistance MARIALUISA Randall (Stephanie) Breast and Gynecology Oncology [facility] documented in this encounter Plan of Treatment Upcoming Encounters Date Type Department Care Team (Late st Contact Info) Description 03/04/2024 12:00 PM EST Office Visit [place] [phone] Jordyn Francisco MD [facility] [place]ST[place] [address] documented as of this encounter Visit Diagnoses Not on filedocumented in this encounter Care Teams Transcription Typist Relationship Specialty Start Date End Date Dandy Driscoll APRN [address] [place] [address] [place] [phone] PCP - General Family Medicine 01/20/16 documented as of this encounter
--- OUTSIDE RECORDS SUMMARY | 2024-02-27 19:33 | XMS_ITS | Encounter Summary ---
[place] [address] Care Team Providers Care Education Dean Name Role Phone Dandy Driscoll APRN Primary Care Provider [phone] Encounter Details Date Type Department Care Team (Late st Contact Info) Description 07/30/2023 Telephone [place] [phone] Janette Michael, RN Social History Tobacco Use Types Packs/Day Years Used Date Smoking Tobacco: Former Cigarettes Q uit: 10/1978 Smokeless Tobacco: Never Alcohol Use Standard Drinks/Week Comments No 0 (1 standard drink = 0.6 oz pur e alcohol) [facility] Utilities Answer Date Recorded In the past [...] health care facility (including now)? No 05/20/2023 DH IPV Inpatient [...] Telephone Encounter - Janette Michael RN - 07/30/2023 8:37 AM EDT Patient very upset that nobody had gone over the purpose of taking the newly prescribed medication (Megace) or discussed the risks prior to her discharge from the hospital. This RN went over the use of the medication, to treat her atypical endometrial hyperplasia. The patient was concerned about taking the medication with diabetes. This RN told patient that the benefit of the medication outweighsthe risk and that it is possible that her blood sugar may go up while on this drug. The patient wasinstructed to monitor her blood sugars and call the clinic if she is concerned or they begin to increase. Informed patient that there are other options, such as an IUD placement to treat her. The patient continued to express that she is most interested in pursuing surgery at this time. Per Dr. Ohara's note, the reason the surgery had been cancelled was due to a lack of a safe discharge plan as the patient did not have running water or anyone to check on her in the post-op period. The patient reports that the water has been fixed and she is working on finding a reliable personto check on her. She would like to discuss the option of moving forward with surgery with Dr. Ohara. Message to be sent to the secretaries to set up telehealth visit. The patient was in agreement with the plan and had no further questions or concerns at this time. documented in this encounter Plan of Treatment Upcoming Encounters Date Type Department Care Team (Late st Contact Info) Description 03/04/2024 12:00 PM EST Office Visit [place] [address] Jordyn Francisco MD [facility] [place] [address] documented as of this encounter Visit Diagnoses Not on filedocumented in this encounter Care Teams Education Dean Relationship Specialty Start Date End Date Dandy Driscoll APRN [address] [place] [address] SHELLI Reich [phone] PCP - General Family Medicine 01/20/16 documented as of this encounter
--- OUTSIDE RECORDS SUMMARY | 2024-02-27 19:33 | XMS_ITS | Encounter Summary ---
Author Organization [facility] Address [facility] [place] [address] Care Team Providers Care Bright Cutter Name Role Phone Dandy Driscoll APRN Primary Care Provider Encounter Details Date Type Department Care Team (Latest Contact Info) Description 07/31/2023 2:30 PM EDT TH Visit (TeleHealth) [place] [phone] Marietta Ohara MD [facility] DR [place] [address] EIN (endometrial intraepithelial neoplasia) Social History Tobacco Use Types Packs/Day Years Used Date Smoking Tobacco: Former Cigarettes Q uit: 10/1978 Smokeless Tobacco: Never Alcohol Use Standard Drinks/Week Comments No 0 (1 standard drink = 0.6 oz pur e alcohol) [facility] Utilities Answer Date Recorded In the past 12 months has th e [employer], gas, oil, or water [employer] threatened to shut off services in your [...] as of this encounter Progress Notes * Marietta Ohara MD - 07/31/2023 2:30 PM EDT Spoke to Stacy to review the Megace she was prescribed. We reviewed the rationale for the megace and common side effects. Plan to see her in October for repeat biopsy. Questions answered. documented in this encounter Plan of Treatment Upcoming Encounters Date Type Department Care Team (Late st Contact Info) Description 03/04/2024 12:00 PM EST Office [place] [address] Jordyn Francisco MD [facility] OBSTETRICS [place] [address] documented as of this encounter Visit Diagnoses Diagnosis EIN (endometrial intraepithelial neoplasia) Endometrial intraepithelial neoplasia (EIN) documented in this encounter Care Teams Bright Cutter Relationship Specialty Start Date End Date Dandy Driscoll APRN [address] [place] [address] [place] [address] PCP - General Family Medicine 01/20/16 documented as of this encounter
--- OUTSIDE RECORDS SUMMARY | 2024-02-27 19:33 | XMS_ITS | Encounter Summary ---
Author Organization [facility] [place] [address] Care Team Providers Care Bench Carpenter Name Role Phone Dandy Driscoll APRN Primary Care Provider [phone] Encounter Details Date Type Department Care Team (Late st Contact Info) Description 01/14/2024 Notes Only Gy[place] [phone] Janette Michael, RN Social History Tobacco Use Types Packs/Day Years Used Date Smoking Tobacco: Former Cigarettes Q uit: 10/1978 Smokeless Tobacco: Never Alcohol Use Standard Drinks/Week Comments No 0 (1 standard drink = 0.6 oz pur e alcohol) [facility] Utilities Answer Date Recorded In the [...] place to sleep or slept in a detention (including now)? No 05/20/2023 IPV Inpatient Questions [...] as of this encounter Progress Notes * Janette Michael RN - 01/14/2024 1:19 PM EDT Received call from manager location and patient looking for prior authorization form for requested mechanical chair lift following surgery and discharge. The lead case manager directed this RN to the [facility] website and form that needed to be completed. DME authorization form completed and faxed to [facility] at documented in this encounter Plan of Treatment Upcoming Encounters Date Type Department Care Team (Late st Contact Info) Description 03/04/2024 12:00 PM EST Office Visit [place] [address] Jordyn Francisco MD [facility] OBSTETRICS [place] [address] documented as of this encounter Visit Diagnoses Not on filedocumented in this encounter Care Teams Bench Carpenter Relationship Specialty Start Date End Date Dandy Driscoll APRN [address] [place] [address] [place] [phone] PCP - General Family Medicine 01/20/16 documented as of this encounter
--- OUTSIDE RECORDS SUMMARY | 2024-02-27 19:33 | XMS_ITS | Encounter Summary ---
Author Organization [facility] Address [facility] [place] [address] Care Team Providers Care Rehabilitation Therapy Aide Name Role Phone Dandy Driscoll APRN Primary Care Provider [phone] Reason for Visit * Reason Comments Follow-up 3 MTH CK, EMB ok per IWR Encounter Details Date Type Department Care Team (Latest Contact Info) Description 09/18/2023 10:30 AM EDT Office Visit [place] [address] Marietta Ohara MD [facility] [place] [address] EIN (endometrial intraepithelial neoplasia) Social History Tobacco Use Types Packs/Day Years Used Date Smoking Tobacco: Former Cigarettes Q uit: 10/1978 Smokeless Tobacco: Never Alcohol Use Standard Drinks/Week Comments No 0 (1 standard drink = 0.6 oz pur e alcohol) [facility] Utilities Answer Date Recorded In the past 12 months has e [employer], gas, oil, or water [employer] threatened to shut off services in your [...] place to sleep or slept in a snf (including now)? No 05/20/2023 DH IPV Inpatient [...] Sign Reading Time Taken Comments Blood Pressure 120/64 09/18/2023 10:48 AM EDT Pulse 74 09/18/2023 10:48 AM EDT Temperature 36.9 ??C (98.4 ??F) 09/18/2023 10:48 AM E DT Respiratory Rate 14 09/18/2023 10:48 AM EDT Oxygen Saturation 98% 09/18/2023 10:48 AM EDT Inhaled Oxygen Concentration - - Weight - - Height - - Body Mass Index - - documented in this encounter Progress Notes * Marietta Ohara MD - 09/18/2023 10:30 AM EDT Gynecologic Oncology Clinic Division of [place] [address] Gynecologic Oncology Clinic Note: Established patient visit. 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 She was scheduled to undergo surgery, but has many social barriers to a safe procedure including limited running water and no social support/rides/people to check on her post op. Therefore decision was made to proceed with hormone therapy with Megace. Kumar expressed frustration about this today and admits she just now got reliable running water and has been unable to connect with anyone who is willing to stop by her house and check on her post op. She is private and does not want people in her home or offering to clean out her home. She has continued to have light bleeding. No cramping. Problem List Patient Active Problem List Diagnosis [...] loss D62 EIN (endometrial intraepithelial neoplasia) N85.02 Gynecologic history: Menarche was approximately age: [age] [...] - CHF, follows with Dr. 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 Authorizing Provider sulfamethoxazole-trimethoprim DS (Bactrim DS) 800-160 mg tablet Take 1 tablet by mouth 2 times daily. 05/02/23 05/13/23 Yes PROVIDER, HISTORICAL fluticasone propion-salmeteroL (Advair Diskus) 500-50 mcg/dose Disk with Device 1 puffs, Inhale, BID, # 28 EA, 4 Refill(s), [facility]acy: [id number], 157, cm, 04/22/22 20:46:00 EST, Height/Length Dosing, 122.47, kg, 04/22/22 20:46:00 EST, Weight Dosing 05/11/22 Yes PROVIDER, HISTORICAL acetaminophen (Tylenol) 500 mg Tablet Take 2 tablets by mouth every 8 hours as needed for Pain. 01/26/21 Yes Mckayla Pruitt APRN Lactase (Lactaid Fast Act) 9,000 unit Tablet Take 2 tablets by mouth 3 times daily (with meals). 01/26/21 Yes Mckayla Pruitt APRN calcium carbonate (Tums) 200 mg calcium (500 mg) Tablet, Chewable Take 3 tablets by mouth as neededfor Heartburn. Yes PROVIDER, HISTORICAL NYSTOP Powder APPLY POWDER TO THE ABDOMINAL PANNUS TOPICALLY TWICE DAILY 12/16/18 Yes PROVIDER, HISTORICAL buPROPion (WELLBUTRIN XL) 150 mg Tablet Extended Release 24 hr 300 mg daily. 11/13/16 Yes PROVIDER, HISTORICAL Cranberry 1,000 mg Cap Take by mouth 2 times daily. Yes PROVIDER, HISTORICAL levalbuteroL (XOPENEX HFA) 45 mcg/actuation HFA Aerosol Inhaler Inhale 2 puffs into the lungs every4 hours as needed. Yes PROVIDER, HISTORICAL miconazole (Micotin) 2 % Powder Apply topically 2 times daily. Patient not taking: Reported on 05/08/2023 01/26/21 Mckayla Pruitt APRN meloxicam (MOBIC) 7.5 mg Tablet Take 1 tablet by mouth daily. Take with food Patient not taking: Reported on 05/08/2023 10/20/20 Patrick Dumont MD lisinopriL (Prinivil;Zestril) 10 mg Tablet Take 10 mg by mouth daily. 05/08/23 PROVIDER, HISTORICAL augmented betamethasone dipropionate (DIPROLENE-AF) 0.05 % Ointment APPLY TOPICALLY OT THE AFFECTEDAREA(S) TWICE WEEKLY. DO NOT EXCEED 45 GRAMS PER WEEK. TO REPLACE CLOBETASOL 01/07/19 PROVIDER, HISTORICAL psyllium seed, with sugar, (METAMUCIL, SUGAR, ORAL) Take 1 Scoop by mouth 2 times daily as needed (constipation). PROVIDER, HISTORICAL loperamide (IMODIUM A-D) 2 mg Tablet Take 4 mg by mouth 4 times daily as needed for Diarrhea. Maximum 16 mg in 24 hours PROVIDER, HISTORICAL fluticasone-salmeterol (ADVAIR) 500-50 mcg/dose diskus inhaler Inhale 1 puff into the lungs 2 timesdaily. 05/08/23 PROVIDER, HISTORICAL Allergies: Allergies Allergen Reactions Adhesive Tape Rips the skin off when removing Isopropyl Alcohol Rash Meperidine Hcl Other (See Comments) Very Loopy Penicillins Other (See Comments) SWELLS UP (age 15) [facility] Penicillin Allergy Risk Assessment 11/05/2020: Low risk penicillin allergy. OK to receive full dose of cefazolin, cefuroxime, or any 3rd or 4th+ generation cephalosporin. [facility] Penicillin Allergy Risk Assessment 05/08/2023: Low risk penicillin allergy. OK to receive full dose of cefazolin, cefuroxime, or any 3rd or 4th+ generation cephalosporin. [facility] Clinic SENIOR ACTUARIAL ANALYST to place Allergy referral for formal penicillin allergy evaluation. Patient open to a phone consult from [facility] Propoxyphene Hcl Itching Performance status: ECOG/WHO score = 1; KPS = 70. Her normal daily activities include walking around the house. She is only able to walk around the house with canes, if she walks too fast will fall. Can shovel her steps outside her house herself without getting winded, though only is a few small steps. Could not shovel her whole driveway. Currently lives alone. Currently has no one that helps her. Does sometimes have folks from [employer] who willhelp her out. Vital signs: BP 120/64 (Patient Position: Sitting) Pulse 74 Temp 36.9 ??C (98.4 ??F) (Temporal) Resp 14 SpO2 98% Physical examination: General: She is alert and oriented, well-groomed and dressed, no obvious distress. She ambulates easily. Abdomen:Soft, non tender, non distended. No HSM, no palpable masses. Pelvic exam: External female genitalia notable for erythema and white exudate consistent with mild yeast in inguinal folds bilaterally. The urethra is without masses. The urethral meatus is without prolapse. There are no vaginal lesions. Cervix visualized and notably is without lesion. After verbalconsent the cervix was cleansed with betadine and EMB obtained. Bimanual exam reveals no pelvic masses. The rectovaginal exam reveals no masses or rectovaginal septum nodularity or thickening. The anal sphincter tone is normal and there are no rectal masses. Extremities: No edema. Impression/plan: Stacy is a 73 y.o. woman with a diagnosis of EIN. We reviewed that I am unwilling to do surgery if she has nobody who can help her in any way post op. I believe this to be unsafe. She expressed understanding and will reach out to her sail cutter. I recommended she seek another opinion if she would like to undergo surgery with no social support. We reviewed the barriers and they seem to be her privacy and limited relationships with her neighbors and people at [employer]. EMB done today, will call with results. Will increase Megace to 80mg BID. documented in this encounter Plan of Treatment Upcoming Encounters Date Type Department Care Team (Late st Contact Info) Description 03/04/2024 12:00 PM EST Office Visit [place] [address] Jordyn Francisco MD [facility] OBSTETRICS [place] [address] documented as of this encounter Procedures Procedure Name Priority Date/Time Associated Diagnosis Comments SPECIMEN TO PATHOLOGY Routine 09/18/2023 11:56 AM EDT EIN (endometrial intraepithelial neoplasia) SURGICAL PATHOLOGY REPORT Routine 09/18/2023 10:30 AM EDT documented in this encounter Results * Specimen to Pathology (09/18/2023 11:56 AM EDT) AP Specimen 09/18/2023 11:5 6 AM EDT 09/18/2023 11:56 AM EDT Narrative [facility] - 09/18/2023 11:56 AM EDT Specimen requisition ordered. ??Separate Pathology report to follow Shazia Matute APRN PATHOLOGY/CYTOLOG Y ORDERABLES Performing Organization Address City/State/[facility] Co de Phone Number [facility] [place] [address] * Surgical Pathology Report (09/18/2023 10:30 AM EDT) Final Diagnosis [id number] ? Location: 3K The signing pathologist has (i) examined the relevant preparation(s) for the specimen(s) and (ii) rendered or confirmed the diagnosis(es). . ? Addendum ADDENDUM DISCUSSION This case has been reviewed by Dr. Gideon Lee of [facility] ([facility]) by report dated 10/02/2023 with the accession number [id number]. The [facility] diagnosis is in agreement with our diagnosis. For the full text of the [facility] report(s), please refer to the Chart Review Media tab in the electronic health record (eDH). Electronically signed by: ?Martin SINGH, Evan Howe Verified: ??10/03/2023 10:21 ??Pathologist Performed at: ??-[facility] Dept. of Pathology, [place] [address] Gin Feeder: Anuel King MD, FCAP, ??CLIA Certificate: [id number] ?Surgical Pathology DIAGNOSIS Endometrial biopsy: ?? Foci of residual EIN with squamous metaplasia, ?? progestin effect, and chronic endometritis ?? admixed with blood clot and cervical mucosa. CR-0 Electronically signed by: ?Martin SINGH, Evan Howe Verified: ??09/21/2023 13:50 ??Pathologist Performed at: ??-[facility] Dept. of Pathology, [place] [address] Gin Feeder: Anuel King MD, FCAP, ??CLIA Certificate: [id number] SPECIMEN(S) SUBMITTED A - EMBX CARBON COPY: Luke Oharay [phone] CLINICAL INFORMATION EIN SPECIMEN PROCESSING A - Labeled/Fixative : Patient demographics, formalin. Quantity/Size: Fragments, 2 x 1.8 x 0.7 cm. Tissue Description: Tissue fragments and blood clot. Sections/Process ing: Submitted en toto in 1 cassette labeled A1. SM 10/03/2023 10:21 AM EDT [facility] ENDOMETRIAL STRUCTURE / Unknown 09/18/2023 10:30 AM EDT 09/18/2023 10:30 AM EDT Shazia Matute SENIOR ACTUARIAL ANALYST PATHOLOGY/CYTOLOG Y ORDERABLES [facility] [place] [address] documented in this encounter Visit Diagnoses Diagnosis EIN (endometrial intraepithelial neoplasia) Endometrial intraepithelial neoplasia (EIN) documented in this encounter Care Teams Rehabilitation Therapy Aide Relationship Specialty Start Date End Date Dandy Driscoll APRN [address] [place] [address] [place] [address] PCP - General Family Medicine 01/20/16 documented as of this encounter
--- OUTSIDE RECORDS SUMMARY | 2024-02-27 19:33 | XMS_ITS | Encounter Summary ---
[place] [address] Care Team Providers Care Food Server Name Role Phone Dandy Driscoll APRN Primary Care Provider [phone] Reason for Referral * Diagnostic Test (Routine) - Closed Specialty Diagnoses / Procedures Referred By Contac t Referred To Contact Cardiology Diagnoses Edema, unspecified type Procedures Mobile Leslie Baker MD [address] [place] [address] [facility] [place] [address] Referral ID Status Reason Start Date Expiration Date V isits Requested Visits Authorized [id number] Closed Specialty Service Requested 01/11/2024 01/10/2025 1 1 Reason for Visit * Diagnostic Test (Routine) - Closed Specialty Diagnoses / Procedures Referred By Contac t Referred To Contact Cardiology Diagnoses Edema, unspecified type Procedures Mobile Leslie Baker MD [address] [place] [address] [facility] [place] [address] Referral ID Status Reason Start Date Expiration Date V isits Requested Visits Authorized [id number] Closed Specialty Service Requested 01/11/2024 01/10/2025 1 1 Encounter Details Date Type Department Care Team (Latest Contact Info) Description 01/11/2024 2:08 PM EDT - 01/11/2024 11:59 PM EDT Hospital Encounter Mobile Echocardiography [facility] [place] [address] Leslie Hoang MD [address] [place] [address] Edema, unspecified type Discharge Disposition: Home Social History Tobacco Use Types Packs/Day Years Used Date Smoking Tobacco: Former Cigarettes Q uit: 10/1978 Smokeless Tobacco: Never Alcohol Use Standard Drinks/Week Comments No 0 (1 standard drink = 0.6 oz pur e alcohol) [facility] Utilities Answer Date Recorded In the past [...] on file documented as of this encounter Medications at Time of Discharge Medication Sig Dispensed Refills Start Date End Date senna-docusate (Pericolace) 8.6-50 mg Tablet Take 1 tablet by mouth 2 times daily as needed for Constipation. Please use if taking your tramadol 02/08/2024 loperamide (IMODIUM A-D) 2 mg Tablet Take 2 tablets by mouth 4 times daily as needed. budesonide-formoteroL (Symbicort) 80-4.5 mcg/actuation inhaler (HFA) Inhale 2 puffs into the lungs 2 times daily. naproxen-capsicum oleoresin 500 mg- 0.025 % Kit Take 500 mg by mouth. 11/21/2021 albuteroL (Proventil, Ventolin) (2.5 mg/3 mL) (0.083 %) Solution for Nebulization 2.5 mg. 04/21/2022 ipratropium-albuteroL (Duoneb) 0.5 mg-3 mg(2.5 mg base)/3 mL Solution for Nebulization 3 mLs. 04/21/2022 torsemide (Demadex) 20 mg tablet Take 20 mg by mouth daily. sacubitriL-valsartan (Entresto) 24-26 mg tablet Take by mouth. 10/18/2022 aspirin EC 81 mg EC (DR) tablet Take 81 mg by mouth daily. lactobacillus (BACID) Capsule Take 1 tablet by mouth daily. UNABLE TO FIND AZO-Yeast acetaminophen (Tylenol) 500 mg Tablet Take 2 tablets by mouth every 8 hours as needed for Pain. 01/26/2021 Lactase (Lactaid Fast Act) 9,000 unit Tablet Take 2 tablets by mouth 3 times daily (with meals). 01/26/2021 calcium carbonate (Tums) 200 mg calcium (500 mg) Tablet, Chewable Take 3 tablets by mouth as needed for Heartburn. augmented betamethasone dipropionate (DIPROLENE-AF) 0.05 % Ointment APPLY TOPICALLY OT THE AFFECTED AREA(S) TWICE WEEKLY. DO NOT EXCEED 45 GRAMS PER WEEK. TO REPLACE CLOBETASOL 6 01/07/2019 NYSTOP Powder APPLY POWDER TO THE ABDOMINAL PANNUS TOPICALLY TWICE DAILY 1 12/16/2018 psyllium seed, with sugar, (METAMUCIL, SUGAR, ORAL) Take 1 Scoop by mouth 2 times daily as needed (constipation). buPROPion (WELLBUTRIN XL) 150 mg Tablet Extended Release 24 hr 300 mg daily. 12 11/13/2016 Cranberry 1,000 mg Cap Take by mouth 2 times daily. levalbuteroL (XOPENEX HFA) 45 mcg/actuation HFA Aerosol Inhaler Inhale 2 puffs into the lungs every 4 hours as needed. fluticasone propion-salmeteroL (Advair Diskus) 500-50 mcg/dose Disk with Device 1 puffs, Inhale, BID, # 28 EA, 4 Refill(s), Pharmacy: [facility], 157, cm, 04/22/22 20:46:00 EST, Height/Length Dosing, 122.47, kg, 04/22/22 20:46:00 EST, Weight Dosing 05/11/2022 02/07/2024 documented as of this encounter Plan of Treatment Upcoming Encounters Date Type Department Care Team (Late st Contact Info) Description 03/04/2024 12:00 PM EST Office Visit [place] [address] Jordyn Francisco MD [facility] DR [place] [address] documented as of this encounter Procedures Procedure Name Priority Date/Time Associated Diagnosis Comments ECHO COMPLETE Routine 01/11/2024 2:09 PM EDT Edema, unspecified type documented in this encounter Results * ECHO COMPLETE (01/11/2024 2:09 PM EDT) Anatomical Region Laterality Modality Other 01/11/2024 1:05 PM EDT Narrative 01/11/2024 3:29 PM EDT [address] [place] [address] ? Echocardiogram Report Name: SURYA KNIGHT ?Study Date: 01/11/2024 01:05 PMBP: 156/82 mmHg : 1950 ? Height: 157 cm ? Account: [id number] Age: 73 yrs ? Weight: 123 kg Gender: Female ?BSA: 2.2 m2 Ordering Physician: LESLIE HOANG Referring Physician: LESLIE HOANG Performed By: Kelly Dominguez RDCS Reason For Study: Edema. Interpreting Fellow: Blaze Negro. Exam Location: [facility]. Interpretation Summary Left ventricle is of [...] of (eg Cardiac CT vs SATHYA). Procedure Complete-[id number]. Suboptimal quality. This study is limited because [...] Note Heriberto Ann MD - 01/11/2024 [address] [place] [address] Echocardiogram Report Name: SURYA KNIGHT Study Date: 01/11/2024 01:05 PMBP:156/82 mmHg : 1950 Height: 157 cmAccount: [id number] Age: 73 yrs Weight: 123 kg Gender: Female BSA: 2.2 m2 Ordering Physician: LESLIE HOANG Referring Physician: LESLIE HOANG Performed By: Kelly Dominguez RDCS Reason For Study: Edema. Interpreting Fellow: Blaze Negro. Exam Location: [facility]. Interpretation Summary Left ventricle is of [...] of (eg Cardiac CT vs SATHYA). Procedure Complete-[id number]. Suboptimal quality. This study is limited because [...] 3-5moderate 5 - 6-14large Aneurysmal 15-16diffuse Leslie Hoang MD ECHO ORDERABLES documented in this encounter Visit Diagnoses Diagnosis Edema, unspecified type documented in this encounter Care Teams Food Server Relationship Specialty Start Date End Date Dandy Driscoll APRN [address] [place] [address] [place] [address] PCP - General Family Medicine 01/20/16 documented as of this encounter
--- OUTSIDE RECORDS SUMMARY | 2024-02-27 19:33 | XMS_ITS | Encounter Summary ---
Author Organization [facility] [place] [address] Care Team Providers Care Track Car Operator Name Role Phone Dandy Driscoll APRN Primary Care Provider [phone] Encounter Details Date Type Department Care Team (Late st Contact Info) Description 01/08/2024 Telephone [place] [phone] Poppy Fontenot, RN Social History Tobacco Use Types Packs/Day Years Used Date Smoking Tobacco: Former Cigarettes Q uit: 10/1978 Smokeless Tobacco: Never Alcohol Use Standard Drinks/Week Comments No 0 (1 standard drink = 0.6 oz pur e alcohol) [facility] Utilities Answer Date Recorded In the [...] health care facility (including now)? No 05/20/2023 IPV Inpatient Questions [...] encounter Miscellaneous Notes * Telephone Encounter - Poppy Fontenot RN - 01/08/2024 3:42 PM EDT Received call back from patient. She asks if she needs blood work when she is here for her US on 01/24/24. Informed her she does not per Dr. Francisco note. Patient asks what is done with the tissue that is removed. We reviewed that it is taken by pathology and it takes around 3 weeks for results to be back. Once pathology is back, Dr. Francisco can come up with a plan. Patient denies further questions at this time. * Telephone Encounter - Poppy Fontenot RN - 01/08/2024 2:45 PM EDT Received message that patient was requesting a call back from Dr. Francisco. Attempted to call patient but reached voicemail. Left VM requesting a call back. documented in this encounter Plan of Treatment Upcoming Encounters Date Type Department Care Team (Late st Contact Info) Description 03/04/2024 12:00 PM EST Office Visit Gynecology Oncology at [place] [phone] Jordyn Francisco MD [facility] OBSTETRICS [place] [address] documented as of this encounter Visit Diagnoses Not on filedocumented in this encounter Care Teams Track Car Operator Relationship Specialty Start Date End Date Dandy Driscoll APRN [address] [place] [address] [place] [phone] PCP - General Family Medicine 01/20/16 documented as of this encounter
--- OUTSIDE RECORDS SUMMARY | 2024-02-27 19:33 | XMS_ITS | Encounter Summary ---
Author Organization [facility] [place] [address] Care Team Providers Care Senior Speech Pathologist Name Role Phone Dandy Driscoll APRN Primary Care Provider [phone] Reason for Referral * Consultation (Routine) - Closed Specialty Diagnoses / Procedures Referred By Contac t Referred To Contact Pre-Admission Testing Diagnoses EIN (endometrial intraepithelial neoplasia) June Maria MD [facility] [address] OBSTETRICS & [place] [address] [facility] Pre Admit [place] [address] [place] [address] Referral ID Status Reason Start Date Expiration Date V isits Requested Visits Authorized [id number] Closed Consult Only 12/04/2023 12/03/2024 1 1 Reason for Visit * Reason Comments Established * Consultation (Urgent) - Authorized Specialty Diagnoses / Procedures Referred By Contac t Referred To Contact Gynecology Oncology Diagnoses Malignant neoplasm of uterus, unspecified site HAS SEEN LYNN ELDER MD PREV WHO DECLINED SURG FOR ENDOMETRIAL CARC DUE TO PATIENT CIRCUMSTANCES. PER PATIENT CIRCUMSTANCES HAVE CHANGED WOULD LIKE TO SEE ANOTHER PROVIDER FOR SECOND OPINION Dandy Driscoll APRN [address] [place] [address] [place] [address] [facility] [address] [place] [address] Referral ID Status Reason Start Date Expiration Date Visits Requested Visits Authorized [id number] Authorized Consult, Test & Treat PCP Updated and/or Approved 10/16/2023 10/15/2024 6 6 Encounter Details Date Type Department Care Team (Latest Contact Info) Description 12/04/2023 8:20 AM EDT Office Visit Gynecology Oncology at [facility], [place] [address] Tyler Mcconnell MD [facility] OBSTETRICS [place] [address] EIN (endometrial intraepithelial neoplasia) Social History Tobacco Use Types Packs/Day Years Used Date Smoking Tobacco: Former Cigarettes Q uit: 10/1978 Smokeless Tobacco: Never Alcohol Use Standard Drinks/Week Comments No 0 (1 standard drink = 0.6 oz pur e alcohol) [facility] Utilities Answer Date Recorded In the past 12 months has th e [employer], gas, oil, or water company threatened to [...] in a retirement (including now)? No 05/20/2023 [facility] Inpatient Questions Answer Date Recorded Does [...] Sign Reading Time Taken Comments Blood Pressure 144/81 12/04/2023 9:16 AM EDT Pulse 84 12/04/2023 9:16 AM EDT Temperature 36.9 ??C (98.4 ??F) 12/04/2023 9:16 AM ED T Respiratory Rate 24 12/04/2023 9:16 AM EDT Oxygen Saturation 98% 12/04/2023 9:16 AM EDT Inhaled Oxygen Concentration - - Weight 117.9 kg (260 lb) 12/04/2023 9:16 AM EDT Height 157.5 cm (5' 2.01) 12/04/2023 9:16 AM ED T Body Mass Index 47.54 12/04/2023 9:16 AM EDT documented in this encounter Progress Notes * Tyler Mcconnell MD - 12/04/2023 8:20 AM EDT Gynecologic Oncology Clinic [place] [address] Dandy rDiscoll pcp Gynecologic Oncology Clinic Note: New patient visit. Reason for visit/referral: Atypical endometrial hyperplasia History of present illness: Surya is a 73 yo who presented for EIN. She was scheduled to undergo surgery, but has many social barriers to a safe procedure including limited running water and no social support/rides/people to check on her post op. Therefore decision was made to proceed with hormone therapy with Megace. Surya expressed frustration about this today and admits she just now got reliable running water and has been unable to connect with anyone who is willing to stop by her house and check on her post op. She is private and does not want people in her home or offering to clean out her home. She has continued to have light bleeding. No cramping. Today notes that she was able to get some support through her episcopalian in regard to care. She is going to stay with an individual who owns a bed and breakfast and who will care and cook for her for 3 weeks free of charge. This individual has cared for individuals with medical needs in the past and feels capable of caring for Surya postoperatively. Notes that she also had someone come andclean her tub and obtain a bath chair for her for when she goes home. She has not taken the Megace for the last two months. Can't afford it, why she stopped, costing $60per month. Notes that she has been having a moderate amount of bleeding since stopping; notes that in the course of the day she will use an adult diaper and will go soak through 15 pads per day, though also having incontinence of urine. Will note that about 1/2 dollar size blood on pad when changing for urine. Notes overnight she soaked a pad but has not had any bleeding today since then. Also notes had a UTI, treated by PCP less than 2 weeks ago, still having pain with urination, called PCP yesterday. Has used all of her free rides for this month, going to talk to PCP today. Has beentaking bactrim. Denies nausea, vomiting, constipation. Does have diarrhea, worse when she was taking the megace, less so now, though does have loose stools often. Denies worsening abdominal pain, bloating. Denies lightheadedness, dizziness, chest pain, SOB. Problem List Patient Active Problem List Diagnosis Code Impaired renal function N28.9 Tibial component revision L knee (11/11/2012, [facility]) Z96.659 History of total right knee replacement, R TKA performed in 2001 Z96.651 Pain in left hip M25.552 Primary osteoarthritis of left hip M16.12 Morbid obesity with BMI of 40.0-44.9, adult E66.01, Z68.41 02/13/2018 S/P left total hip arthroplasty (Dr. Dumont) Z96.649 S/P Right ENA, 01/19/21 (Dr Dumont) Z96.641 Postoperative anemia due to acute blood loss D62 EIN (endometrial intraepithelial neoplasia) N85.02 DATA: 09/18/2023 PATH Endometrial biopsy: Foci of residual [...] - CHF, follows with Dr. 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 fluticasone propion-salmeteroL (Advair Diskus) 500-50 mcg/dose Disk with Device 1 puffs, Inhale, BID, # 28 EA, 4 Refill(s), Pharmacy: [facility], 157, cm, 04/22/22 20:46:00 EST, Height/Length [...] Other (See Comments) SWELLS UP (age 15) PAT Penicillin Allergy Risk Assessment 11/05/2020: Low risk penicillin allergy. OK to receive full dose of cefazolin, cefuroxime, or any 3rd or 4th+ generation cephalosporin. PAT Penicillin Allergy Risk Assessment 05/08/2023: Low risk penicillin allergy. OK to receive full dose of cefazolin, cefuroxime, or any 3rd or 4th+ generation cephalosporin. [facility] Clinic SCIENTIFIC SYSTEMS ANALYST to place Allergy referral for formal [...] helps her. Does sometimes have folks from [employer] who will help her out. Vital signs: BP 144/81 (Patient Position: Sitting) Pulse 84 Temp 36.9 ??C (98.4 ??F) (Temporal) Resp 24 Ht 157.5 cm (5' 2.01) Wt 117.9 kg (260 lb) SpO2 98% BMI 47.54 kg/m?? Physical examination: General: She is alert [...] no rectal masses. Extremities: No edema. Impression/plan: Surya is a 73 y.o. woman with a diagnosis of EIN. She has historically deferred surgery in the setting of not having anyone to care for her postoperatively. She has now organized postoperative care and is ready to proceed with surgery. Is able to have surgery sometime in the month of February. We requested she have a transvaginal US performed prior to surgery to assess size of the uterus prior to surgery given limitation of assessment of size by exam alone. We will refer Surya to PAT and plan for surgery in the months of February. Surgical consent obtained today, consents to blood products and intra- op medical student exam. Surgery: RA-TLH, BSO, SLND Preop Labs: S/p T&S, CBC, CMP on 05/08/23, defer to PAT if desires Antibiotics: 500 mg Flagyl, 2g Ancef (<120 kg), Anticoagulation: 5000U Heparin, SCD's Additional Medication: Pyridium Pending Surgery Date: February 2024 June Maria MD [facility] Resident Pager: [phone] * Tegan Hunter LNA - 12/04/2023 8:20 AM EDT Examination chaperoned by ORALIA QUINN. 12/04/23 In the ENDLESS TRACK VEHICLE MECHANIC/ONC 3K clinic. @ Vitals Flowsheet Row [place] 12/04[place]2023 [place] [facility] [place] 117.9 kg (260 lb) Height 157.5 cm (5' 2.01) BSA (Calculated - sq m) 2.27 sq meters BMI (Calculated) 47.54 Temp 36.9 ??C (98.4 ??F) Temp src Temporal Heart Rate 84 Resp 24 BP 144/81 BP Location Right arm Patient Position Sitting SpO2 98 % * Tyler Mcconnell MD - 12/04/2023 8:20 AM EDT Biopsy shows endometrial carcinoma this time. We will plan for surgery as we discussed. documented in this encounter Plan of Treatment Upcoming Encounters Date Type Department Care Team (Late st Contact Info) Description 03/04/2024 12:00 PM EST Office Visit [place] [address] Tyler Mcconnell MD [facility] OBSTETRICS [place] [address] Scheduled Referrals Name Type Priority Associated Diagnoses Orde r Schedule Anesthesia Pre-Operative Evaluation Referral Outpatient Referral Routine EIN (endometrial intraepithelial neoplasia) Ordered: 12/04/2023 documented as of this encounter Procedures Procedure Name Priority Date/Time Associated Diagnosis Comments SURGICAL PATHOLOGY Routine 12/04/2023 11 :21 AM EDT EIN (endometrial intraepithelial neoplasia) documented in this encounter Results * US Transvaginal Non OB (01/24/2024 1:20 PM EDT) WORKSTATION ID [id number] RAD Anatomical Region Laterality Modality Ultrasound 01/24/2024 [...] Cory Dominguez MD at 01/24/2024 2:24 PM Electronically signed by: Cory Dominguez MD, [facility] ([phone]), at 01/24/2024 2:24 PM Thank you for letting us participate in the care of this patient. If you are a health care provider and have any questions regarding this report, please contact the number above. For patients who have questions, please contact the health direct care specialist that requested your imaging first. ? Cory Dominguez, Staff Physician Electronically Signed Final Report ?? 01/24/2024 02:32 pm Narrative 01/24/2024 2:33 PM EDT Gynecological Report ?(Signed Final 01/24/2024 02:32 pm) PATIENT INFO: ID #: ? [id number] ?: ??[birth year] (73 yrs)(F) Name: ? SUYRA Damon MARIANO ?Visit Date: 01/24/2024 01:00 pm PERFORMED BY: Attending: ?Alberto SINGH, Cory Sierra Resident: ? Destiny SINGH, Conrad Negro Performed By: ? Emilia Owens RDMS Referred By: ?TYLER TUCSON Location: ? [facility] SERVICE(S) PROVIDED: UTV - Transvaginal - [id number] ?[id number] UPELIM - Pelvis Limited - [id number] ? [id number] INDICATIONS: history of EIN, preop uterine size [...] 01/24/2024 02:32 pm) PATIENT INFO: ID #: [id number] : [birth year] (73 yrs)(F) Name: SURYA KNIGHT Visit Date: 01/24/2024 01:00 pm PERFORMED BY: Attending: Cory Dominguez MD Resident: Conrad Dixon MD Performed By: Emilia Owens RDMS Referred By: TYLER MCCONNELL Location: [facility] SERVICE(S) PROVIDED: UTV - Transvaginal - [id number] UPELIM - Pelvis Limited - [id number] INDICATIONS: history of EIN, preop uterine size [...] Cory Dominguez MD at 01/24/2024 2:24 PM Electronically signed by: Cory Dominguez MD, [facility] ([phone]), at 01/24/2024 2:24 PM Thank you for letting us participate in the care of this patient. If you are a health care provider and have any questions regarding this report, please contact the number above. For patients who have questions, please contact the health direct care specialist that requested your imaging first. Cory Dominguez, Staff Physician Electronically Signed Final Report 01/24/2024 02:32 pm Tyler Mcconnell MD IMG US PELVIC ORDERA BLES * (ABNORMAL) Surgical Pathology (12/04/2023 11:21 AM EDT) Case Report Surgical Pathology Report ? Case: [id number] ? Authorizing Provider: ??Tyler Mcconnell MD ?Collected: ? 12/04/2023 1121 ? Ordering Location: ? Gynecology Oncology at ? Received: ?12/04/2023 1225 ? [facility] ? Pathologist: ? Evan Salazar MD ? Specimen: ?Endometrium, Biopsy ? 12/06/2023 12:03 PM EDT [facility] Report Update History Endometrial biopsy: 1. Foci of adenocarcinoma, endometrioid type (FIGO grade 2), associated with EIN. 2. Changes consistent with progestin effect. 3. Endometrial stromal plasma cells (chronic endometritis) Identified. 12/06/2023 12:03 PM EDT [facility] Final Diagnosis 12/06/2023 12:03 PM EDT [facility] Clinical Information EIN, surgery pending 12/06/2023 12:03 PM EDT [facility] Gross Description A. Endometrium, Biopsy. Labeled/Fixativ e: Endometrium, formalin. Quantity/Size: Multiple, 3.2 x 3.2 x 0.5 cm. Tissue Description: Tissue fragments and blood clot. Sections/Proces sing: Submitted en toto in 3 cassettes labeled A1-A3. 12/06/2023 12:03 PM EDT [facility] Result Note THIS RESULT REQUIRES PHYSICIAN/ANTIONE FOLLOW UP(A) 12/06/2023 12:03 PM EDT [facility] Tissue ENDOMETRIAL STRUCTURE / Unknown Non Blood Collection / Unknown 12/04/2023 11:21 AM EDT 12/04/2023 12:25 PM EDT Tyler Mcconnell MD PATHOLOGY/CYTOLOGY O RDERABLES [facility] [place] [address] documented in this encounter Visit Diagnoses Diagnosis EIN (endometrial intraepithelial neoplasia) Endometrial intraepithelial neoplasia (EIN) EIN (endometrial intraepithelial neoplasia) Endometrial intraepithelial neoplasia (EIN) documented in this encounter Care Teams Senior Speech Pathologist Relationship Specialty Start Date End Date Dandy Driscoll APRN [address] [place] [address] [place] [address] PCP - General Family Medicine 01/20/16 documented as of this encounter
--- OUTSIDE RECORDS SUMMARY | 2024-02-27 19:33 | XMS_ITS | Encounter Summary ---
Author Organization [facility] [place] [address] Care Team Providers Care Leadership Program Intern Name Role Phone Dandy Driscoll APRN Primary Care Provider [phone] Encounter Details Date Type Department Care Team (Late st Contact Info) Description 12/14/2023 Telephone [place] [address] Poppy Fontenot, RN Social History Tobacco Use Types Packs/Day Years Used Date Smoking Tobacco: Former Cigarettes Q uit: 10/1978 Smokeless Tobacco: Never Alcohol Use Standard Drinks/Week Comments No 0 (1 standard drink = 0.6 oz pur e alcohol) [facility] Utilities Answer Date Recorded In [...] place to sleep or slept in a [facility] (including now)? No 05/20/2023 [facility] IPV Inpatient [...] Telephone Encounter - Poppy Fontenot RN - 12/19/2023 3:06 PM EDT Called and spoke with patient. We reviewed that Dr. Francisco states she can continue to take the megace until surgery. The patient asks what dose. We reviewed that she was prescribed 80 mg of megace twice daily. Patient states she cannot afford that, but also that she is no longer having bleeding. Will forward message to OLEG Barger, to possibly discuss financial assistance. We also reviewed that the rn medical surgical is working to get her scheduled hopefully for early February. Patient denies any further questions at this time. * Telephone Encounter - Poppy Fontenot RN - 12/14/2023 2:48 PM EDT Called and spoke with patient. She asks what dose of megace she should be taking. Reviewing Dr. Francisco' note from 12/03, do not see a plan to restart megace at this time. Will send message to Dr. Francisco. It is noted the patient will need surgery. The patient requests a date between 02/08/24 and 03/01/24,as that will be when she has assistance post-operatively at a friends house. Will relay this to thesurgical dry pan feeder to see if this is possible. * Telephone Encounter - Poppy Fontenot RN - 12/14/2023 2:47 PM EDT ----- Message from [employer] sent at 12/14/2023 11:45 AM EDT ----- Regarding: Medication Caller's name: Stacy Knight Call back #: [phone] patient requesting a call back before 2:00pm Patient's provider/team: Dr Francisco does not want to see Dr Margarita Martines Reason for call: Regarding Medication documented in this encounter Plan of Treatment Upcoming Encounters Date Type Department Care Team (Late st Contact Info) Description 03/04/2024 12:00 PM EST Office Visit [place] [address] Jordyn Francisco MD [facility] [place] [address] documented as of this encounter Visit Diagnoses Not on filedocumented in this encounter Care Teams Leadership Program Intern Relationship Specialty Start Date End Date Dandy Driscoll APRN [address] [place] [address] SHELLI Reich [phone] PCP - General Family Medicine 01/20/16 documented as of this encounter
--- OUTSIDE RECORDS SUMMARY | 2024-02-27 19:33 | XMS_ITS | Encounter Summary ---
[place] [address] Care Team Providers Care Trade Recruiter Name Role Phone Dandy Driscoll APRN Primary Care Provider [phone] Encounter Details Date Type Department Care Team (Latest Contact Info) Description 01/18/2024 Transcribe Orders Lab [address] [place] [phone] Carlos Hoang MD [address] [place] [address] Acute diastolic heart failure Social History Tobacco Use Types Packs/Day Years Used Date Smoking Tobacco: Former Cigarettes Q uit: 10/1978 Smokeless Tobacco: Never Alcohol Use Standard Drinks/Week Comments No 0 (1 standard drink = 0.6 oz pur e alcohol) [facility] Utilities Answer Date Recorded In the past 12 months has [employer], [employer], oil, or water [employer] threatened to shut off services in your [...] place to sleep or slept in a care home (including now)? No 05/20/2023 IPV Inpatient Questions [...] PM EST Office Visit [place] [address] Jordyn Francisco MD [facility] DR OBSTET[place] [address] documented as of this encounter Results * (ABNORMAL) Basic Metabolic Panel Non-fasting (01/24/2024 11:41 AM EDT) [facility] Glucose 118(H) 65 - 99 mg/dL 01/24/2024 12:23 PM EDT [facility] Comment: Fasting Glucose Interpretive Criteria: Normal: 65-99 mg/dL ?? Prediabetes: 100-125 mg/dL ?? Consistent with Diabetes Mellitus: > or = 126 mg/dL ?? Classification and Diagnosis of Diabetes: Standards of Care in Diabetes - 2022. Diabetes Care 202; 46:S19. Fasting is defined as no caloric intake for at least 8 hours. Blood Urea Nitrogen 11 8 - 18 mg/dL 01/24/2024 12:23 PM [facility] Creatinine 0.55(L) 0.70 - 1.20 mg/dL 01/24/2024 12:23 PM [facility] Sodium 136 135 - 145 mMol/L 01/24/2024 12:23 PM [facility] Potassium 4.6 3.5 - 5.0 mMol/L 01/24/2024 12:23 PM [facility] Chloride 101 98 - 107 mMol/L 01/24/2024 12:23 PM [facility] Carbon Dioxide 26 22 - 31 mMol/L 01/24/2024 12:23 PM [facility] Anion Gap 9 5 - 15 mMol/L 01/24/2024 12:23 PM [facility] Calcium 9.1 8.5 - 10.5 mg/dL 01/24/2024 12:23 PM [facility] Est Glomerular Filtration Rate - Female 98 mL/min/1. 73 m?? 01/24/2024 12:23 PM [facility] Comment: This patient's estimated GFR was [...] Foundation Fasting Status Yes 01/24/2024 12:23 PM [facility] Blood VENOUS BLOOD SPECIMEN / Unknown Venipuncture / Unknown 01/24/2024 11:41 AM EDT 01/24/2024 11:41 AM EDT Carlos Hoang MD CHEMISTRY ORDERABLES [facility] [place] [address] documented in this encounter Visit Diagnoses Diagnosis Acute diastolic heart failure documented in this encounter Care Teams Trade Recruiter Relationship Specialty Start Date End Date Dandy Driscoll APRN [address] [place] [address] [place] [address] PCP - General Family Medicine 01/20/16 documented as of this encounter
--- OUTSIDE RECORDS SUMMARY | 2024-02-27 19:33 | XMS_ITS | Encounter Summary ---
[place] [address] Care Team Providers Care Optics Test Technician Name Role Phone Dandy Driscoll APRN Primary Care Provider [phone] Encounter Details Date Type Department Care Team (Late st Contact Info) Description 12/21/2023 Telephone [place] [address] Janette Michael, RN Social History Tobacco Use Types Packs/Day Years Used Date Smoking Tobacco: Former Cigarettes Q uit: 10/1978 Smokeless Tobacco: Never Alcohol Use Standard Drinks/Week Comments No 0 (1 standard drink = 0.6 oz pur e alcohol) [facility] Utilities Answer Date Recorded In the [...] place to sleep or slept in a assisted (including now)? No 05/20/2023 IPV Inpatient Questions [...] Telephone Encounter - Janette Michael RN - 12/21/2023 2:23 PM EDT LVM with call back information. * Telephone Encounter - Janette Michael RN - 12/21/2023 2:23 PM EDT ----- Message from Poppy Vasquez RN sent at 12/20/2023 12:09 PM EDT ----- Patient requesting a call back tomorrow (12/20) as she will be out until 5:30 PM today. [phone] (H) documented in this encounter Plan of Treatment Upcoming Encounters Date Type Department Care Team (Late st Contact Info) Description 03/04/2024 12:00 PM EST Office Visit [place] [address] Jordyn Francisco MD [facility] DR OBSTETRICS [place] [address] documented as of this encounter Visit Diagnoses Not on filedocumented in this encounter Care Teams Optics Test Technician Relationship Specialty Start Date End Date Dandy Driscoll APRN [address] [place] [address] [place] [phone] PCP - General Family Medicine 01/20/16 documented as of this encounter
--- OUTSIDE RECORDS SUMMARY | 2024-02-27 19:33 | XMS_ITS | Encounter Summary ---
Author Organization [facility] [place] [address] Care Team Providers Care Claims Service Adjustor Name Role Phone Dandy Driscoll APRN Primary Care Provider [phone] Encounter Details Date Type Department Care Team (Late st Contact Info) Description 12/13/2023 Telephone Obstetrics [place] [address] Hugh Phillips Social History Tobacco Use Types Packs/Day Years Used Date Smoking Tobacco: Former Cigarettes Q uit: 10/1978 Smokeless Tobacco: Never Alcohol Use Standard Drinks/Week Comments No 0 (1 standard drink = 0.6 oz pur e alcohol) [facility] Utilities Answer Date Recorded In the [...] place to sleep or slept in a long-term (including now)? No 05/20/2023 IPV Inpatient Questions [...] PM EST Office Visit [place] [address] Jordyn Francisco MD [facility] OBSTETRICS [place] [address] documented as of this encounter Visit Diagnoses Not on filedocumented in this encounter Care Teams Claims Service Adjustor Relationship Specialty Start Date End Date Dandy Driscoll APRN [address] [place] [address] [place] Reich [phone] PCP - General Family Medicine 01/20/16 documented as of this encounter
--- OUTSIDE RECORDS SUMMARY | 2024-02-27 19:33 | XMS_ITS | Encounter Summary ---
Author Organization [facility] Address [facility] [place] [address] Care Team Providers Care Manager Corporate Strategy Name Role Phone Dandy Driscoll APRN Primary Care Provider [phone] Encounter Details Date Type Department Care Team (Latest Contact Info) Description 01/01/2024 Travel Social History Tobacco Use Types Packs/Day Years Used Date Smoking Tobacco: Former Cigarettes Q uit: 10/1978 Smokeless Tobacco: Never Alcohol Use Standard Drinks/Week Comments No 0 (1 standard drink = 0.6 oz pur e alcohol) [facility] Utilities Answer Date Recorded In the [...] place to sleep or slept in a long term (including now)? No 05/20/2023 IPV Inpatient Questions [...] PM EST Office [place] [address] Jordyn Francisco MD [facility] OBSTETRICS [place] [address] documented as of this encounter Visit Diagnoses Not on filedocumented in this encounter Care Teams Manager Corporate Strategy Relationship Specialty Start Date End Date Dandy Driscoll APRN [address] [place] [address] [place] Reich [phone] PCP - General Family Medicine 01/20/16 documented as of this encounter
--- OUTSIDE RECORDS SUMMARY | 2024-02-27 19:33 | XMS_ITS | Encounter Summary ---
Author Organization [facility] Address [facility] [place] [address] Care Team Providers Care Compliance Specialist Name Role Phone Dandy Driscoll APRN Primary Care Provider [phone] Encounter Details Date Type Department Care Team (Latest Contact Info) Description 09/18/2023 Travel Social History Tobacco Use Types Packs/Day [...] PM EST Office Visit Gyne[place] [address] Jordyn Francisco MD [facility] OBSTETRICS [place] [address] documented as of this encounter Visit Diagnoses Not on filedocumented in this encounter Care Teams Compliance Specialist Relationship Specialty Start Date End Date Dandy Driscoll APRN [address] [place] [address] [place] Reich [phone] PCP - General Family Medicine 01/20/16 documented as of this encounter
--- OUTSIDE RECORDS SUMMARY | 2024-02-27 19:33 | XMS_ITS | Encounter Summary ---
Author Organization [facility] [place] [address] Care Team Providers Care Reinsurance Claims Analyst Name Role Phone Dandy Driscoll APRN Primary Care Provider [phone] Reason for Visit * Consultation (Routine) - Closed Specialty Diagnoses / Procedures Referred By Contac t Referred To Contact Pre-Admission Testing Diagnoses EIN (endometrial intraepithelial neoplasia) June Maria MD [facility] DR OBSTETRICS & [place] [address] [facility] [place] [address] [place] [address] Referral ID Status Reason Start Date Expiration Date V isits Requested Visits Authorized [id number] Closed Consult Only 12/04/2023 12/03/2024 1 1 Encounter Details Date Type Department Care Team (Late st Contact Info) Description 12/14/2023 10:00 AM EDT TH Visit (TeleHealth) [place] [address] Social History Tobacco Use Types Packs/Day Years Used Date Smoking Tobacco: Former Cigarettes Q uit: 10/1978 Smokeless Tobacco: Never Alcohol Use Standard Drinks/Week Comments No 0 (1 standard drink = 0.6 oz pur e alcohol) [facility] Utilities Answer Date Recorded In the past 12 months has e electric, gas, oil, or water company [...] place to sleep or slept in a intermediate (including now)? No 05/20/2023 IPV Inpatient Questions [...] PM EST Office Visit [place] [address] Jordyn rFancisco MD [facility] OBSTETRICS [place] [address] Scheduled Referrals Name Type Priority Associated Diagnoses Orde r Schedule Anesthesia Pre-Operative Evaluation Referral Outpatient Referral Routine EIN (endometrial intraepithelial neoplasia) Ordered: 12/04/2023 documented as of this encounter Visit Diagnoses Not on filedocumented in this encounter Care Teams Reinsurance Claims Analyst Relationship Specialty Start Date End Date Dandy Driscoll APRN [address] [place] [address] [place] [phone] PCP - General Family Medicine 01/20/16 documented as of this encounter
--- OUTSIDE RECORDS SUMMARY | 2024-02-27 19:33 | XMS_ITS | Encounter Summary ---
Author Organization [facility] Address [facility] [place] [address] Care Team Providers Care Social Service Coordinator Name Role Phone Dandy Driscoll APRN Primary Care Provider [phone] Encounter Details Date Type Department Care Team (Latest Contact Info) Description 01/24/2024 12:54 PM EDT - 01/24/2024 1:34 PM EDT Hospital En[place] [address] Tyler Francisco MD [facility] OBSTETRICS [place] [address] EIN (endometrial intraepithelial neoplasia) Discharge Disposition: Home Social History Tobacco Use Types Packs/Day Years Used Date Smoking Tobacco: Former Cigarettes Q uit: 10/1978 Smokeless Tobacco: Never Alcohol Use Standard Drinks/Week Comments No 0 (1 standard drink = 0.6 oz pur e alcohol) [facility] Utilities Answer Date Recorded In the past 12 months has [employer], gas, oil, or water [employer] threatened to shut off services in your [...] in a detention (including now)? No 05/20/2023 DH IPV Inpatient [...] BID, # 28 EA, 4 Refill(s), Pharmacy: [facility], 157, cm, 04/22/22 20:46:00 EST, Height/Length Dosing, 122.47, kg, 04/22/22 20:46:00 EST, Weight Dosing 05/11/2022 02/07/2024 documented as of this encounter Plan of Treatment Upcoming Encounters Date Type Department Care Team (Late st Contact Info) Description 03/04/2024 12:00 PM EST Office Visit [place] [address] Tyler Francisco MD [facility] OBSTETRICS [place] [address] documented as of this encounter Procedures Procedure Name Priority Date/Time Associated Diagnosis Comments US TRANSVAGINAL NON OB Routine 01/24/2024 1:20 PM EDT EIN (endometrial intraepithelial neoplasia) documented in this encounter Results * US Transvaginal Non OB (01/24/2024 1:20 PM EDT) WORKSTATION ID [id number] RAD Anatomical Region Laterality Modality Ultrasound 01/24/2024 [...] PM Electronically signed by: Cory Dominguez MD, [facility] ([phone]), at 01/24/2024 2:24 PM Thank you for letting us participate in the care of this patient. If you are a health care provider and have any questions regarding this report, please contact the number above. For patients who have questions, please contact the health healthcare educator that requested your imaging first. ? Cory Dominguez, Staff Physician Electronically Signed Final Report ?? 01/24/2024 02:32 pm Narrative 01/24/2024 2:33 PM EDT Gynecological Report ?(Signed Final 01/24/2024 02:32 pm) PATIENT INFO: ID #: ? [id number] ?: ??[birth year] (73 yrs)(F) Name: ? SURYA Damon MARIANO ?Visit Date: 01/24/2024 01:00 pm PERFORMED BY: Attending: ?Alberto SINGH, Cory Sierra Resident: ? Destiny SINGH, Conrad Negro Performed By: ? Roman Emilia MONIQUE Referred By: ?TYLER HEATH Location: ? [place] SERVICE(S) PROVIDED: UTV - Transvaginal - [id number] ?[id number] UPELIM - Pelvis Limited - [id number] ? [id number] INDICATIONS: history of EIN, preop uterine size [...] 01/24/2024 02:32 pm) PATIENT INFO: ID #: [id number] : [birth year] (73 yrs)(F) Name: SURYA KNIGHT Visit Date: 01/24/2024 01:00 pm PERFORMED BY: Attending: Cory Dominguez MD Resident: Conrad Dixon MD Performed By: Emilia Owens RDMS Referred By: TYLER FRANCISCO Location: [place] SERVICE(S) PROVIDED: UTV - Transvaginal - [id number] UPELIM - Pelvis Limited - [id number] INDICATIONS: history of EIN, preop uterine size [...] PM Electronically signed by: Cory Dominguez MD, [facility] ([phone]), at 01/24/2024 2:24 PM Thank you for letting us participate in the care of this patient. If you are a health care provider and have any questions regarding this report, please contact the number above. For patients who have questions, please contact the health healthcare educator that requested your imaging first. Cory Dominguez, Staff Physician Electronically Signed Final Report 01/24/2024 02:32 pm Tyler Francisco MD IMG US PELVIC ORDERA BLES documented in this encounter Visit Diagnoses Diagnosis EIN (endometrial intraepithelial neoplasia) Endometrial intraepithelial neoplasia (EIN) documented in this encounter Care Teams Social Service Coordinator Relationship Specialty Start Date End Date Dandy Driscoll APRN [address] [place] [address] [place] [phone] PCP - General Family Medicine 01/20/16 documented as of this encounter
--- OUTSIDE RECORDS SUMMARY | 2024-02-27 19:33 | XMS_ITS | Encounter Summary ---
Author Organization [facility] [address] Care Team Providers Care Engineering Test Specialist Name Role Phone Dandy Driscoll APRN Primary Care Provider [phone] Encounter Details Date Type Department Care Team (Latest Contact Info) Description 01/24/2024 12:10 PM EDT Laboratory Appointment Lab [address] [place] [address] Acute diastolic heart failure Social History Tobacco Use Types Packs/Day Years Used Date Smoking Tobacco: Former Cigarettes Q uit: 10/1978 Smokeless Tobacco: Never Alcohol Use Standard Drinks/Week Comments No 0 (1 standard drink = 0.6 oz pur e alcohol) [facility] Utilities Answer Date Recorded In the past [...] place to sleep or slept in a nursing home (including now)? No 05/20/2023 IPV Inpatient [...] PM EST Office Visit [place] [address] Jordyn Francisco MD [facility] [place] [address] documented as of this encounter Procedures Procedure Name Priority Date/Time Associated Diagnosis Comments BASIC METABOLIC PANEL Routine 01/24/2024 11:41 AM EDT Acute diastolic heart failure documented in this encounter Results * (ABNORMAL) Basic Metabolic Panel Non-fasting (01/24/2024 11:41 AM EDT) [facility] Glucose 118(H) 65 - 99 mg/dL 01/24/2024 12:23 PM EDT [facility] Comment: Fasting Glucose [...] 8 - 18 mg/dL 01/24/2024 12:[address] [facility] Creatinine 0.55(L) 0.70 - 1.20 mg/dL 01/24/2024 12:[address] [facility] Sodium 136 135 - 145 mMol/L 01/24/2024 12:[address] [facility] Potassium 4.6 3.5 - 5.0 mMol/L 01/24/2024 12:[address] [facility] Chloride 101 98 - 107 mMol/L 01/24/2024 12:[address] [facility] Carbon Dioxide 26 22 - 31 mMol/L 01/24/2024 12:[address] [facility] Anion Gap 9 5 - 15 mMol/L 01/24/2024 12:[address] [facility] Calcium 9.1 8.5 - 10.5 mg/dL 01/24/2024 12:[address] [facility] Est Glomerular Filtration Rate - Female 98 mL/min/1. 73 m?? 01/24/2024 12:[address] [facility] Comment: This patient's estimated GFR [...] Foundation Fasting Status Yes 01/24/2024 12:[address] [facility] Blood VENOUS BLOOD SPECIMEN / Unknown Venipuncture / Unknown 01/24/2024 11:41 AM EDT 01/24/2024 11:41 AM EDT Carlos Hoang MD CHEMISTRY ORDERABLES [facility] [place] [address] documented in this encounter Visit Diagnoses Diagnosis Acute diastolic heart failure documented in this encounter Care Teams Engineering Test Specialist Relationship Specialty Start Date End Date Dandy Driscoll APRN [address] [place] [address] [place] [phone] PCP - General Family Medicine 01/20/16 documented as of this encounter
--- OUTSIDE RECORDS SUMMARY | 2024-02-27 19:33 | XMS_ITS | Encounter Summary ---
[place] [address] Care Team Providers Care Wet Process Technician Name Role Phone Dandy Driscoll APRN Primary Care Provider Reason for Referral * Consultation (Urgent) - Authorized Specialty Diagnoses / Procedures Referred By Contharshad t Referred To Contact Gynecology Oncology Diagnoses Malignant neoplasm of uterus, unspecified site HAS SEEN LYNN ELDER MD PREV WHO DECLINED SURG FOR ENDOMETRIAL CARC DUE TO PATIENT CIRCUMSTANCES. PER PATIENT CIRCUMSTANCES HAVE CHANGED WOULD LIKE TO SEE ANOTHER PROVIDER FOR SECOND OPINION Dandy Driscoll APRN [address] [place] [address] [place] [phone] [facility] [address] [place] [phone] Referral ID Status Reason Start Date Expiration Date Visits Requested Visits Authorized [id number] Authorized Consult, Test & Treat PCP Updated and/or Approved 10/16/2023 10/15/2024 6 6 Encounter Details Date Type Department Care Team (Latest Contact Info) Description 10/16/2023 Transcribe Orders eDH Incoming Referrals [phone] Dandy Driscoll APRN [address] [place] [address] [place] [phone] Malignant neoplasm of uterus, unspecified site Social History Tobacco Use Types Packs/Day Years Used Date Smoking Tobacco: Former Cigarettes Q uit: 10/1978 Smokeless Tobacco: Never Alcohol Use Standard Drinks/Week Comments No 0 (1 standard drink = 0.6 oz pur e alcohol) [facility] Utilities Answer Date Recorded In [...] place to sleep or slept in a custodial (including now)? No 05/20/2023 DH IPV Inpatient [...] PM EST Office Visit [place] [address] Jordyn Francisco MD [facility] [place]ST[place] [address] Scheduled Referrals Name Type Priority Associated Diagnoses Orde r Schedule Referral to Gynecologic Oncology Outpatient Referral Urgent Malignant neoplasm of uterus, unspecified site Ordered: 10/16/2023 documented as of this encounter Visit Diagnoses Diagnosis Malignant neoplasm of uterus, unspecified site documented in this encounter Care Teams Wet Process Technician Relationship Specialty Start Date End Date Dandy Driscoll APRN [address] [place] [address] [place] [phone] PCP - General Family Medicine 01/20/16 documented as of this encounter
--- OUTSIDE RECORDS SUMMARY | 2024-02-27 19:33 | XMS_ITS | Encounter Summary ---
Author Organization [facility] [place] [address] Care Team Providers Care Farm Laborer Name Role Phone Dandy Driscoll APRN Primary Care Provider [phone] Encounter Details Date Type Department Care Team (Late st Contact Info) Description 12/14/2023 Telephone Obstetrics [place] [address] Hugh Phillips Social History Tobacco Use Types Packs/Day Years Used Date Smoking Tobacco: Former Cigarettes Q uit: 10/1978 Smokeless Tobacco: Never Alcohol Use Standard Drinks/Week Comments No 0 (1 standard drink = 0.6 oz pur e alcohol) [facility] Utilities Answer Date Recorded In the [...] PM EST Office Visit [place] [address] Jordyn Francisco MD [facility] [place] [address] documented as of this encounter Visit Diagnoses Not on filedocumented in this encounter Care Teams Farm Laborer Relationship Specialty Start Date End Date Dandy Driscoll APRN [address] [place] [address] [place] Reich [phone] PCP - General Family Medicine 01/20/16 documented as of this encounter
--- OUTSIDE RECORDS SUMMARY | 2024-02-27 19:33 | XMS_ITS | Encounter Summary ---
[place] [address] Care Team Providers Care Applications Support Analyst Name Role Phone Dandy Driscoll APRN Primary Care Provider [phone] Encounter Details Date Type Department Care Team (Late st Contact Info) Description 01/15/2024 Telephone [place] [address] Janette Michael, RN Social History Tobacco Use Types Packs/Day Years Used Date Smoking Tobacco: Former Cigarettes Q uit: 10/1978 Smokeless Tobacco: Never Alcohol Use Standard Drinks/Week Comments No 0 (1 standard drink = 0.6 oz pur e alcohol) [facility] Utilities Answer Date Recorded In the past [...] in a assisted (including now)? No 05/20/2023 DH IPV Inpatient [...] Telephone Encounter - Janette Michael RN - 01/16/2024 3:46 PM EDT Received Voicemail from Fouzia from [employer] reporting that a mechanical chair lift would not be approved by the patient's insurance, a antony lift would be approved if the patient is bed bound. Fouzia isalso looking for a DME provider who would set the patient up with the equipment. Message sent to social worker delinquency preventionDenita, to try and reach out to the patient. * Telephone Encounter - Janette Michael RN - 01/15/2024 10:53 AM EDT LVM with callback information * Telephone Encounter - Janette Michael RN - 01/15/2024 10:53 AM EDT ----- Message from Poppy Vasquez RN sent at 01/15/2024 10:13 AM EDT ----- 8:55: Fouzia from [employer]. Trying to clarify on DME order for this patient. The request is asking for antony lift? But the description says mechanical chair lift. [phone] Case: [id number] documented in this encounter Plan of Treatment Upcoming Encounters Date Type Department Care Team (Late st Contact Info) Description 03/04/2024 12:00 PM EST Office Visit [place] [address] Jordyn Francisco MD [facility] DR [place] [address] documented as of this encounter Visit Diagnoses Not on filedocumented in this encounter Care Teams Applications Support Analyst Relationship Specialty Start Date End Date Dandy Driscoll APRN [address] [place] [address] [place] [phone] PCP - General Family Medicine 01/20/16 documented as of this encounter
--- OUTSIDE RECORDS SUMMARY | 2024-02-27 19:33 | XMS_ITS | Encounter Summary ---
Author Organization [facility] Address [facility] [place] [address] Care Team Providers Care Police Captain Senior Name Role Phone Dandy Driscoll APRN Primary Care Provider [phone] Encounter Details Date Type Department Care Team (Latest Contact Info) Description 12/04/2023 Travel Social History Tobacco Use Types Packs/Day Years Used Date Smoking Tobacco: Former Cigarettes Q uit: 10/1978 Smokeless Tobacco: Never Alcohol Use Standard Drinks/Week Comments No 0 (1 standard drink = 0.6 oz pur e alcohol) [facility] Utilities Answer Date Recorded In the past [...] in a penitentiary (including now)? No 05/20/2023 IPV Inpatient Questions [...] PM EST Office Visit [place] [address] Jordyn Francisco MD [facility] OBST[place] [address] documented as of this encounter Visit Diagnoses Not on filedocumented in this encounter Care Teams Police Captain Senior Relationship Specialty Start Date End Date Dandy Driscoll APRN [address] [place] [address] SHELLI Reich [phone] PCP - General Family Medicine 01/20/16 documented as of this encounter
--- OUTSIDE RECORDS SUMMARY | 2024-02-27 19:33 | XMS_ITS | Encounter Summary ---
[place] [address] Care Team Providers Care Superintendent Communications Name Role Phone Dandy Driscoll APRN Primary Care Provider [phone] Encounter Details Date Type Department Care Team (Late st Contact Info) Description 01/11/2024 External Results Non-[place] [address] Social History Tobacco Use Types Packs/Day Years Used Date Smoking Tobacco: Former Cigarettes Q uit: 10/1978 Smokeless Tobacco: Never Alcohol Use Standard Drinks/Week Comments No 0 (1 standard drink = 0.6 oz pur e alcohol) [facility] Utilities Answer Date Recorded In the past [...] in a fdc (including now)? No 05/20/2023 IPV Inpatient Questions [...] PM EST Office Visit [place] [address] Jordyn Francisco MD [facility] OBSTETRICS [place] [address] documented as of this encounter Procedures Procedure Name Priority Date/Time Associated Diagnosis Comments MISC EXTERNAL CARDIOLOGY RESULT Routine 04/24/2022 2:10 PM EST documented in this encounter Results * External Cardiology Result (04/24/2022 2:10 PM EST) Anatomical Region Laterality Modality Other Historical Provider EXTERNAL CARDIOLO GY RESULT documented in this encounter Visit Diagnoses Not on filedocumented in this encounter Care Teams Superintendent Communications Relationship Specialty Start Date End Date Dandy Driscoll APRN [address] [place] [address] SHELL[place] Reich [phone] PCP - General Family Medicine 01/20/16 documented as of this encounter
--- OUTSIDE RECORDS SUMMARY | 2024-02-27 19:33 | XMS_ITS | Encounter Summary ---
Author Organization [facility] [place] [address] Care Team Providers Care [place]ck Hammerer Name Role Phone Dandy Driscoll APRN Primary Care Provider [phone] Reason for Visit * Auth/Cert (Routine) Specialty Diagnoses / Procedures Referred By Contac t Referred To Contact Diagnoses Endometrial cancer ENDOMETRIAL CANCER Procedures PRO LAPAROSCOPY W TOT HYSTERECTUTERUS <=250 GRAM W TUBE/OVARY PRO LAP, PELVIC LYMPHADENECTOMY/BX PRO INTRAOP SENTINEL LYMPH ID W/DYE INJECTION ROBOTIC LAPAROSCOPY,TOTAL HYST, UTERUS<250GM, REM TUBE &/OR OVARY (WRVU 15) ROBOTIC LAPAROSCOPY,W\BILATERAL TOTAL PELVIC LYMPHADENECTOMY, PERIAORTIC LYMPH NODE SAMPLING (WRVU 15.6) INTRAOPERATIVE ID (MAPPING) SENTINEL LYMPH NODE,INCLUDES INJECTION (WRVU 2.5) MODIFIER ROBOT,Jordyn Hoff MD [facility] [address] [facility] Referral ID Status Reason Start Date Expiration Date Visits Re quested Visits Authorized [id number] 1 1 Encounter Details Date Type Department Care Team (Late st Contact Info) Description 02/07/2024 4:33 PM EDT Anesthesia [place] [id number] Robert Hall MD [facility] [place] [address] Zenia Rice [place] [address] Anesthesia Record Procedure Summary Procedure Name Responsible Anesthesiologist Anesthesia Start Time Anesthesia Stop Time ROBOTIC LAPAROSCOPY,TOTAL HYST, UTERUS<250GM, REM TUBE &/OR OVARY (WRVU 15) (Uterus) Robert Hall MD 02/07/24 1633 02/07/24 1948 Events Date Time Event Comment 02/07/2024 1427 1632 AN Verify 1633 Start 1633 An Start Data 1650 An Induction 1652 An Intubation 1703 Anesthesia Ready 1721 Procedure Start 1830 Quick Note Repositioned 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 1947 Extubation/LMA Out 1947 an stop data 1947 Recovery or ICU Handoff April ent care was transferred to the destination unit staff after review of the patient's medical history, current anesthetic/surgical status and plan, according to the Provider Handoff Checklist. 1947 Stop Meds Name Total midazolam 2 mg fentaNYL 100 mcg lidocaine IV 100 mg propofoL 200 mg dexmedeTOMIDine 4 mcg/mL 20 mcg rocuronium 130 mg PHENYLephrine 480 mcg dexAMETHasone 10 mg ondansetron 8 mg ceFAZolin (Ancef) 2 g vial a ttach to sodium chloride 0.9% 100 mL Mini-Bag Plus 3 g metroNIDAZOLE (Flagyl) 500 mg in sodium chloride 0.9% 100 mL infusion 500 mg ceFAZolin (Ancef) 1 g vial a ttached to sodium chloride 0.9% 50 mL Mini-Bag Plus 0 g albuterol inhaler 12 puff labetalol 20 mg sugammadex 490 mg lactated ringers infusion 500 mL lactated ringers 500 mL * Agents Name O2 Air N2O Sevoflurane (et) * Blood No blood administrations on file. Lines, Drains, and Airways Type Details Placement Removal Incision 01/19/21; Right, anterior; hip 01/19/21 0000 by Elle Womack RN Wound 01/22/21; 2317; Left , anterior, upper; other (see comments) (thigh); blister(s), skin tear 01/22/21 231 by Yvon Jones RN Pressure Injury 02/07/24; 1440; Y; midline; coccyx; Covered with mepilex. Notified easement man-onc team 02/07/24 1440 by Tobias Bolivar RN Incision 02/07/24; 1735; midl ine; laparoscopic punctures (specify) (multiple trocar sites) 02/07/24 1735 by Avani Gibson, RN PIV 02/07/24; 1430; [id number]-ssprzq catheter system; 22 gauge; metacarpal vein (top of hand), left; Anatomical Landmarks; Driss AMBRIZ; topical anesthetic spray applied, tolerated well, appears comfortable; removed per policy/procedure, catheter/device intact; 02/08/24; 1023 02/07/24 1430 by Tobias Bolivar RN 02/08/24 1023 by Mechelle Rayo ETT Mask Ventilation: Ad junct (2); ETT Type: Cuffed; ETT Size: 7.5 mm; Kumar Blade: 3; Attempts: 1; Laryngoscopy Grade: 2; ETT Placement Verified By: Auscultation, Capnometry; Secured at Teeth: 22 cm; Removal Date: 02/07/24; Removal Time: 194702/07/241651 by Stanley Regalado, CAR PARKER 02/07/241947 by Saurabh Temple, MCKENZIE PIV 02/07/24; 1655; sudq-buu-qxxxio catheter system; 18 gauge; dorsal arch vein (top of hand), right; 02/08/24; 0230 02/07/24 165 by Stanley Regalado CAR PARKER 02/08/24 0230 by Roseann Baker RN documented in this encounter Social History Tobacco Use Types Packs/Day Years Used Date Smoking Tobacco: Former Cigarettes Q uit: 10/1978 Smokeless Tobacco: Never Alcohol Use Standard Drinks/Week Comments No 0 (1 standard drink = 0.6 oz pur e alcohol) [facility] Utilities Answer Date Recorded In the past 12 months has [employer], gas, oil, or water [employer] threatened to shut off services in your [...] on file documented as of this encounter OR Notes * Anesthesia Postprocedure Evaluation - Robert Hall MD - 02/07/2024 9:17 PM EDT Department of Anesthesiology Post-procedure Note Patient: Stacy Knight Procedure Summary Date: 02/07/24 Room / Location: [facility] OR [facility] MAIN OR Anesthesia Start: 1632 Anesthesia Stop: 1947 Procedures: ROBOTIC LAPAROSCOPY,TOTAL HYST, UTERUS<250GM, REM TUBE &/OR OVARY (WRVU 15) (Uterus) MODIFIER ROBOT,DAVINCI XI LAPAROSCOPIC, LYSIS ADHESIONS, OMENTUM (WRVU 15.67) (Abdomen) Diagnosis: (ENDOMETRIAL CANCER) Surgeons: Jordyn Francisco MD Responsible Provider: Robert Hall MD Anesthesia Type: general ASA Status: 3 All Anesthesia Providers: Anesthesiologist: Robert Hall MD CAR PARKER: Saurabh Temple CRNA Vitals Value Taken Time BP 142/99 02/07/242044 Temp 36 ??C (96.8 ??F) 02/07/242044 Pulse 78 02/07/242044 Resp 16 02/07/242044 SpO2 100 % 02/07/242115 Pain Level 0 02/07/242044 Vitals shown include unfiled device data. Patient Location: PACU/[facility] Level of Consciousness: Awake and Alert Pain Management: Satisfactory Analgesia PONV: None Cardiovascular Status: At Baseline and Hemodynamically Stable Respiratory Status: At Baseline and Room Air Postoperative Fluid Status: Intravascular EUvolemia Possible Anesthetic Complications: NONE apparent at time of evaluation Final Primary Anesthesia Type: General (The anesthetic type performed was the same as planned.) Comments: Robert Hall MD * Anesthesia Preprocedure Evaluation - Rowdy Tate MD - 02/07/2024 2:22 PM EDT Images from the original note were not included. Pre-Anesthesia Evaluation for: Stacy Knight a 73 y.o. female. Procedure(s): ROBOTIC LAPAROSCOPY,TOTAL HYST, UTERUS<250GM, REM TUBE &/OR OVARY (WRVU 15) ROBOTIC LAPAROSCOPY,W\BILATERAL TOTAL PELVIC LYMPHADENECTOMY, PERIAORTIC LYMPH NODE SAMPLING (WRVU 15.6) INTRAOPERATIVE ID (MAPPING) SENTINEL LYMPH NODE,INCLUDES INJECTION (WRVU 2.5) MODIFIER ROBOT,JAVAN HARRIS Patient Active Problem List Diagnosis Date Noted ??? EIN (endometrial intraepithelial neoplasia) 06/15/2023 ??? Postoperative anemia due to acute blood loss 01/25/2021 ??? S/P Right ENA, 01/19/21 (Dr Dumont) 01/19/2021 ??? Morbid obesity with BMI of 40.0-44.9, adult 02/14/2018 ??? 02/13/2018 S/P left total hip arthroplasty (Dr. Dumont) 02/14/2018 ??? Primary osteoarthritis of left hip 08/09/2017 ??? Pain in left hip 07/13/2016 ??? History of total right knee replacement, R TKA performed in 200101/20/2016 ??? Tibial component revision L knee (11/11/2012, Bhavin) 11/07/2010 ??? Impaired renal function 09/13/2010 Past Medical History: Diagnosis Date ??? Asthma ??? Bowel disease ibs ??? Chronic pain right hip and knee pain ??? COPD (chronic obstructive pulmonary disease) ??? Gastroesophageal reflux rare use of TUMS ??? High blood pressure controlled with medication ??? Impaired renal function 09/13/2010 ??? Mental health problem depression ??? Morbid obesity ??? Postoperative anemia due to acute blood loss 01/25/2021 ??? T2DM History of Jardiance use, on Ozempic for weight loss now ??? Transfusion history 1983, ruptured ectopic ??? Vertigo fell out of chair in past week or so Past Surgical History: Procedure Laterality Date ??? JOINT REPLACEMENT ??? PRG RADEX HIP UNILATERAL WITH PELVIS MINIMUM 4 VIEWS Left 02/13/2018 HIP INTRAOP RADIOLOGIC EXAMINATION, UNILATERAL, W PELVIS; 4+ VIEWS (WRVU 0.27) performed by Patrick Dumont MD at [facility] MAIN OR ??? PRG RADEX HIP UNILATERAL WITH PELVIS MINIMUM 4 VIEWS Right 01/19/2021 HIP INTRAOP RADIOLOGIC EXAMINATION, UNILATERAL, W PELVIS; 4+ VIEWS (WRVU 0.27) performed by Patrick Dumont MD at [facility] MAIN OR ??? PRO ARTHROPLASTY ACETABULAR/PROX FEM PROSTC AGRFT/ALGRFT Left 02/13/2018 @TOTAL HIP ARTHROPLASTY, ANTERIOR APPROACH (WRVU 20.72) performed by Patrick Dumont MD at [facility] MAIN OR ??? PRO ARTHROPLASTY ACETABULAR/PROX FEM PROSTC AGRFT/ALGRFT Right 01/19/2021 TOTAL HIP ARTHROPLASTY, ANTERIOR APPROACH (WRVU 20.72) performed by Patrick Dumont MD at [facility] [place] ??? PRO REVISE KNEE JOINT REPLACE, ALL PARTS 11/11/2012 @TOTAL KNEE REVISION ARTHROPLASTY, COMPLETE performed by Carlos Delcid MD at [facility] MAIN OR ??? SALPINGECTOMY unilateral, via pfannensteil, requiring transfusion Social History Tobacco Use ??? Smoking status: Former Current packs/day: 0.00 Types: Cigarettes Quit date: 10/1978 Years since quittin.3 ??? Smokeless tobacco: Never Substance Use Topics ??? Alcohol use: No Social History Substance and Sexual Activity Drug Use No Allergies Allergen Reactions ??? Adhesive Tape Rips the skin off when removing ??? Isopropyl Alcohol Rash ??? Meperidine Hcl Other (See Comments) Very Loopy ??? Penicillins Other (See Comments) SWELLS UP (age 15) [facility] Penicillin Allergy Risk Assessment 11/05/2020: Low risk penicillin allergy. OK to receive full dose of cefazolin, cefuroxime, or any 3rd or 4th+ generation cephalosporin. [facility] Penicillin Allergy Risk Assessment 05/08/2023: Low risk penicillin allergy. OK to receive full dose of cefazolin, cefuroxime, or any 3rd or 4th+ generation cephalosporin. [facility] Clinic MANAGER MEDICAID to place Allergy referral for formal penicillin allergy evaluation. Patient open to a phone consult from all.Clinic ??? Propoxyphene Hcl Itching Medications: MAR and/or home medications have been reviewed. Physical Exam: Preprocedure Vitals Current as of 02/07/24 1422 BP: 169/78 Pulse: 96 Resp: 16 SpO2: 96 Temp: 36.6 ??C (97.9 ??F) Height: 157.5 cm (5' 2) (02/07/24) Weight: 123.4 kg (272 lb) (02/07/24) BMI: 49.74 IBW: 50.1 kg (110 lb 7.8 oz) Last edited 02/07/24 1412 by ELIAN Airway Assessment: Mallampati: II TM distance: >3 FB Neck ROM: full Cardiovascular Assessment: Rate: normal Pulmonary Assessment: unlabored breathing Dental Assessment: Misc Assessment: IV access: Peripheral line Last Filed Perioperative Cognitive Screening Value Time User AD8 Total Score: 2 05/15/2023 1:00 PM Zenia Rice APRN AD8 Informant: Patient 05/15/2023 1:00 PM Zenia Rice APRN 4AT TOTAL Score: 0 01/26/2021 7:47 AM Janette Schaefer RN CFS Frailty Score: 3 05/08/2023 3:00 PM Gerardo Ken RN Anesthesia Plan: ASA 3 general, with a(n) intravenous induction 73F with Endometrial Cancer scheduled for Robotic Total hystrectomy Medical History: see Anesthesia Screening section of this note. Anesthetic Plan: GA with ETT, 2 PIVs Region - Other Informed Consent: Anesthetic plan and risks discussed with patient. Plan discussed with CAR PARKER. Anesthesia Screening Note: Date and Time of Entry: 12/14/2023 11:15 AM Entered By: Zenia Rice APRN Reason for Evaluation: Surgeon Request Other Reason: Elevated BMI, COPD Screening Visit Type: Telephone Call Additional/Outside Records Requested? Did not request medical information from outside organization. Findings, Assessment and Plan: 73 y.o. female BMI 48 presenting for pre- anesthesia telephone consultation prior to robotic assisted laparoscopic hysterectomy, BSO, SLND with Dr. Francisco. MEDICAL HISTORY: #HFpEF: echo 04/2022 EF 65-70%, (on entresto, torsemide) #aortic stenosis: mild on echo from 04/2022 #HTN: bp has been well controlled per chart review #COPD: uses advair, hasn't needed rescue inhaler in many months, no recent exacerbations or URIs #Type 2 DM (A1C 6.2 from 05/08/23) #GERD: tums prn, well controlled currently #MARTHA: does not wear CPAP #BMI 48 Stacy was previously scheduled for this surgery in July but surgery was cancelled due to concerns regarding having appropriate post op care. Stacy reports she now has someone to stay with for three weeks after surgery. We spoke with Stacy prior to her previous surgery date. She denies any significant changes in her health since we last spoke. Stacy is able to do moderate housework such as sweeping her floors but reports she is unable to walk long distances or stand for long periods of time due to back pain. Denies chest pain or palpitations. No SOB with daily activities. LE edema is well controlled per patient on torsemide. Denies orthopnea. No dizziness or syncope. She is followed by epic willow specialist Dr. Hoang at , last seen in July 2023 with plan for repeat echocardiogram in January 2024 to follow up on . TTE 04/24/22 [facility] (under media) EF 65-70% with no WMAs. Mildly dilated RV with preserved function. LA mildly dilated. Mild AD8:2 Social History: Tobacco Use: Smoked for 6 months in her 20s Alcohol: Denies SURGICAL HISTORY: salpingectomy, 3 knee surgeries, 2 hip surgeries ANESTHETIC HISTORY: Denies any previous complications related to anesthesia Last airway record at [facility]: ENA 01/19/21 Mac3, gr 1 view, easy mask Labs reviewed: 11/21/23 ([facility]): Hgb 13.1, platelet 281, creatinine 0.76, K 3.8 Overall: Stacy Knight is a 73 y.o. with a history of HFpEF, mild , HTN, COPD, type 2 DM, GERD, MARTHA (does not wear CPAP), BMI 48 scheduled for robotic assisted laparoscopic hysterectomy, BSO, SLND with Dr. Francisco. Activity is limited due to back pain. She denies any change in cardiopulmonary symptoms since she saw cardiology in July. Per last cardiology note, plan was for repeat echocardiogram in January 2024 to follow up on . Patient reports this has not been scheduled yet and expressed some concern regarding the cost of this testing. She tells me surgery will be sometime in February. I reached out to cardiology requesting they schedule her echocardiogram prior to surgery in February. She was advised to contact the billing department regarding the cost of this test. Would recommend obtaining an updated echocardiogram but if she is not able to do this because of cost,would still move forward with surgery. COPD is stable on current inhalers. She was advised to bringthese in with her on day of surgery. We discussed the risks and benefits of anesthesia. We discussed the risk of post-operative delirium and mitigation strategies. All questions answered to the patient's satisfaction. Zenia Rice APRN 12/14/23 documented in this encounter Plan of Treatment Upcoming Encounters Date Type Department Care Team (Late st Contact Info) Description 03/04/2024 12:00 PM EST Office Visit [place] [address] Jordyn Francisco MD [facility] [address] documented as of this encounter Visit Diagnoses Not on filedocumented in this encounter Administered Medications Inactive Administered Medications - up to 3 most recent administrations Medication Order MAR Action Action Date Dose Rate Site albuteroL 90 mcg/actuation inhaler Inhalation, PRN, Starting on Effie 02/07/24 at 1648, Until Effie 02/07/24 at 1948, Anesthesia Intra-op, Routine Given 02/07/2024 7:13 PM EDT 6 puffs Given 02/07/2024 4:48 PM EDT 6 puffs ceFAZolin (Ancef) 2 g vial attach to sodium chloride 0.9% 100 mL Mini-Bag Plus 2 g, Intravenous, ONCE, 1 dose, On Effie 02/07/24 at 1430, Administer over 30 Minutes, Nibbler Operator to OR Infuse over 30 minutes., Day of Surgery (Day of Procedure), Indication for (Active or Suspected): Prophylaxis New Bag 02/07/2024 5:05 PM EDT 3 g dexAMETHasone (Decadron) injection Intravenous, PRN, Starting on Effie 02/07/24 at 1650, Until Effie 02/07/24 at 1948, Anesthesia Intra-op, Routine Given 02/07/2024 4:50 PM EDT 10 mg dexmedeTOMIDine (Precedex) (4 mcg/mL) bolus injection (Anesthsia) Intravenous, PRN, Starting on Effie 02/07/24 at 1650, Until Effie 02/07/24 at 1948, Anesthesia Intra-op, Routine Given 02/07/2024 7:30 PM EDT 4 mcg Given 02/07/2024 7:25 PM EDT 4 mcg Given 02/07/2024 7:21 PM EDT 4 mcg fentaNYL (pf) (50 mcg/mL) multi-dose injection Intravenous, PRN, Starting on Effie 02/07/24 at 1650, Until Effie 02/07/24 at 1948, Anesthesia Intra-op, Routine Given 02/07/2024 4:50 PM EDT 100 mcg labetaloL (Normodyne) (5 mg/mL) multi-dose injection Intravenous, PRN, Starting on Effie 02/07/24 at 1750, Until Effie 02/07/24 at 1948, Anesthesia Intra-op, Routine Given 02/07/2024 6:09 PM EDT 10 mg Given 02/07/2024 5:50 PM EDT 10 mg lactated ringers infusion 1,000 mL, at 100 mL/hr, Intravenous, CONTINUOUS, Starting on Effie 02/07/24 at 1515, Until Effie 02/07/24 at 2004, Day of Surgery (Day of Procedure) New Bag 02/07/2024 4:54 PM EDT New Bag 02/07/2024 4:32 PM EDT New Bag 02/07/2024 3:02 PM EDT 1,000 mLs 100 mL/hr lactated ringers infusion Intravenous, CONTINUOUS PRN, Starting on Effie 02/07/24 at 1654, Until Effie 02/07/24 at 1948, Anesthesia Intra-op New Bag 02/07/2024 4:54 PM EDT lidocaine (pf) (Xylocaine) (20 mg/mL) 2% injection syringe Intravenous, PRN, Starting on Effie 02/07/24 at 1650, Until Effie 02/07/24 at 1948, Anesthesia Intra-op, Routine Given 02/07/2024 4:50 PM EDT 100 mg metroNIDAZOLE (Flagyl) 500 mg in sodium chloride 0.9% 100 mL infusion 500 mg, Intravenous, ONCE, 1 dose, On Effie 02/07/24 at 1430, Administer over 30 Minutes, Nibbler Operator to OR Infuse over 30 minutes., Day of Surgery (Day of Procedure), Indication for (Active or Suspected): Prophylaxis Given 02/07/2024 5:05 PM EDT 500 mg midazolam (pf) (Versed) (1 mg/mL) multi-dose injection Intravenous, PRN, Starting on Effie 02/07/24 at 1632, Until Effie 02/07/24 at 1948, Anesthesia Intra-op, Routine Given 02/07/2024 4:32 PM EDT 2 mg ondansetron (pf) (Zofran) (2 mg/mL) injection Intravenous, PRN, Starting on Effie 02/07/24 at 1736, Until Effie 02/07/24 at 1948, Anesthesia Intra-op, Routine Given 02/07/2024 7:21 PM EDT 4 mg Given 02/07/2024 5:36 PM EDT 4 mg PHENYLephrine in NS (PF) (ANALY-SYNEPHRINE) 0.8 mg/10 mL (80 mcg/mL) multi-dose injection Syringe Intravenous, PRN, Starting on Effie 02/07/24 at 1706, Until Effie 02/07/24 at 1948, Anesthesia Intra-op, Routine Given 02/07/2024 5:18 PM EDT 160 mcg Given 02/07/2024 5:10 PM EDT 160 mcg Given 02/07/2024 5:06 PM EDT 160 mcg propofoL (Diprivan) 10 mg/mL bolus injection (Anesthesia) Intravenous, PRN, Starting on Effie 02/07/24 at 1650, Until Effie 02/07/24 at 1948, Anesthesia Intra-op Given 02/07/2024 4:50 PM EDT 200 mg rocuronium (Zemuron) (10 mg/mL) multi-dose injection Intravenous, PRN, Starting on Effie 02/07/24 at 1651, Until Effie 02/07/24 at 1948, Anesthesia Intra-op, Routine Given 02/07/2024 6:19 PM EDT 30 mg Given 02/07/2024 5:11 PM EDT 30 mg Given 02/07/2024 4:51 PM EDT 70 mg sugammadex (Bridion) 100 mg/mL injection Intravenous, PRN, Starting on Effie 02/07/24 at 1917, Until Effie 02/07/24 at 1948, Anesthesia Intra-op, Routine Given 02/07/2024 7:17 PM EDT 490 mg documented in this encounter Care Teams Bell Neck Hammerer Relationship Specialty Start Date End Date Dandy Driscoll APRN [address] [place] [address] [place] [address] PCP - General Family Medicine 01/20/16 documented as of this encounter
--- OUTSIDE RECORDS SUMMARY | 2024-02-27 19:33 | XMS_ITS | Encounter Summary ---
[place] [address] Care Team Providers Care [employer] Teacher Name Role Phone Dandy Driscoll APRN Primary Care Provider [phone] Encounter Details Date Type Department Care Team (Late st Contact Info) Description 07/24/2023 Telephone [place] [phone] Janette Michael, RN Social History Tobacco Use Types Packs/Day Years Used Date Smoking Tobacco: Former Cigarettes Q uit: 10/1978 Smokeless Tobacco: Never Alcohol Use Standard Drinks/Week Comments No 0 (1 standard drink = 0.6 oz pur e alcohol) [facility] Utilities Answer Date Recorded In the [...] place to sleep or slept in a jail (including now)? No 05/20/2023 IPV Inpatient Questions [...] Telephone Encounter - Janette Michael RN - 07/24/2023 3:11 PM EDT Patient asked if medication Dr. Ohara had discussed with her today had been sent to the pharmacy. This RN told patient medication was sent to [facility] pharmacy in [facility] and provided patient with the phone number. The patient had no further questions or concerns. documented in this encounter Plan of Treatment Upcoming Encounters Date Type Department Care Team (Late st Contact Info) Description 03/04/2024 12:00 PM EST Office Visit [place] [address] Jordyn Francisco MD [facility] [place] [address] documented as of this encounter Visit Diagnoses Not on filedocumented in this encounter Care Teams [employer] Social [employer] Teacher Relationship Specialty Start Date End Date Dandy Driscoll APRN [address] [place] [address] [place] [id number] PCP - General Family Medicine 01/20/16 documented as of this encounter
--- OUTSIDE RECORDS SUMMARY | 2024-02-27 19:33 | XMS_ITS | Encounter Summary ---
[place] [address] Care Team Providers Care Operations Agent Name Role Phone Dandy Driscoll APRN Primary Care Provider [phone] Encounter Details Date Type Department Care Team (Late st Contact Info) Description 07/27/2023 Telephone Gyne[place] [phone] Janette Michael, RN Social History Tobacco Use Types Packs/Day Years Used Date Smoking Tobacco: Former Cigarettes Q uit: 10/1978 Smokeless Tobacco: Never Alcohol Use Standard Drinks/Week Comments No 0 (1 standard drink = 0.6 oz pur e alcohol) [facility] Utilities Answer Date Recorded In [...] Encounter - Janette Michael RN - 07/27/2023 2:06 PM EDT LVM with detailed message to call back * Telephone Encounter - Janette Michael RN - 07/27/2023 2:06 PM EDT ----- Message from Lelo Barrera RN sent at 07/27/2023 12:25 PM EDT ----- This pt called and left a message on voicemail and just left name and nothing else. But I figured her out I hope, Marietta did see this pt beginning of July. She would like a phone call back. She was very irritated because she wanted to talk with doctor. Brayden documented in this encounter Plan of Treatment Upcoming Encounters Date Type Department Care Team (Late st Contact Info) Description 03/04/2024 12:00 PM EST Office Visit [place] [address] Jordyn Francisco MD [facility] OBSTETRICS [place] [address] documented as of this encounter Visit Diagnoses Not on filedocumented in this encounter Care Teams Operations Agent Relationship Specialty Start Date End Date Dandy Driscoll APRN [address] [place] [address] SHELLI Reich [phone] PCP - General Family Medicine 01/20/16 documented as of this encounter
--- OUTSIDE RECORDS SUMMARY | 2024-02-27 19:33 | XMS_ITS | Encounter Summary ---
[place] [address] Care Team Providers Care Rubber Thread Spooler Name Role Phone Dandy Driscoll APRN Primary Care Provider [phone] Encounter Details Date Type Department Care Team (Late st Contact Info) Description 02/06/2024 Telephone [place] [phone] Janette Michael, RN Social History Tobacco Use Types Packs/Day Years Used Date Smoking Tobacco: Former Cigarettes Q uit: 10/1978 Smokeless Tobacco: Never Alcohol Use Standard Drinks/Week Comments No 0 (1 standard drink = 0.6 oz pur e alcohol) [facility] Utilities Answer Date Recorded In the past [...] Telephone Encounter - Janette Michael RN - 02/06/2024 10:13 AM EDT Patient aware same day program will contact her with surgery time this afternoon. All questions addressed. * Telephone Encounter - Janette Michael RN - 02/06/2024 10:10 AM EDT ----- Message from Janette Orourke RN sent at 02/06/2024 9:42 AM EDT ----- [phone]: She has surgery and would like a call documented in this encounter Plan of Treatment Upcoming Encounters Date Type Department Care Team (Late st Contact Info) Description 03/04/2024 12:00 PM EST Office Visit [place] [address] Jordyn Francisco MD [facility] [place] [address] documented as of this encounter Visit Diagnoses Not on filedocumented in this encounter Care Teams Rubber Thread Spooler Relationship Specialty Start Date End Date Dandy Driscoll APRN [address] [place] [id number] PCP - General Family Medicine 01/20/16 documented as of this encounter
--- OUTSIDE RECORDS SUMMARY | 2024-02-27 19:33 | XMS_ITS | Encounter Summary ---
Author [place] [address] Care Team Providers Care Tailor Helper Name Role Phone Dandy Driscoll APRN Primary Care Provider [phone] Encounter Details Date Type Department Care Team (Late st Contact Info) Description 08/21/2023 Telephone [place] [phone] Emilia Cheung, RN Social History Tobacco Use Types Packs/Day Years Used Date Smoking Tobacco: Former Cigarettes Q uit: 10/1978 Smokeless Tobacco: Never Alcohol Use Standard Drinks/Week Comments No 0 (1 standard drink = 0.6 oz pur e alcohol) [facility] Utilities Answer Date Recorded In the [...] place to sleep or slept in a halfway (including now)? No 05/20/2023 [facility] IPV Inpatient [...] encounter Miscellaneous Notes * Telephone Encounter - Emilia Cheung RN - 08/21/2023 12:20 PM EDT TC from Stacy Knight 73 y.o. who is concerned for vaginal bleeding. Late Sunday night, she began to notice light vaginal bleeding and a small clots, all smaller than aquarter. She is wearing a pad due to bladder leakage but is not saturating a pad, change a few times per day for comfort. She has had some intermittent discomfort or pelvic pressure, but denies pressure currently. She denies dizziness/lightheadedness. She is taking the megestroL (Megace) 40 mg tablet twice daily. Note routed to Dr. Marietta Ohara for review and recommendations, Stacy is aware to call in case of new or worsening symptoms in the meantime, and we discussed bleeding precautions for presentingto Emergency Department in case of heavy bleeding (saturating more than 1 heavy absorbency pad per hour for 2+ hours). Per Dr. Mcmanus, light bleeding is okay and expected for her diagnosis, and will likely come and go. Can discuss further at follow-up visit with. Patient verbalizes understanding and in agreement with plan. documented in this encounter Plan of Treatment Upcoming Encounters Date Type Department Care Team (Late st Contact Info) Description 03/04/2024 12:00 PM EST Office Visit [place] [address] Jordyn Francisco MD [facility] OBSTETRICS [place] [address] documented as of this encounter Visit Diagnoses Not on filedocumented in this encounter Care Teams Tailor Helper Relationship Specialty Start Date End Date Dandy Driscoll APRN [address] [place] [address] [place] [phone] PCP - General Family Medicine 01/20/16 documented as of this encounter
--- OUTSIDE RECORDS SUMMARY | 2024-02-27 19:33 | XMS_ITS | Encounter Summary ---
Author Organization [facility] [place] [address] Care Team Providers Care Educational Diagnostician Name Role Phone Dandy Driscoll APRN Primary Care Provider Reason for Visit * Auth/Cert (Routine) Specialty [...] SENTINEL LYMPH NODE,INCLUDES INJECTION (WRVU 2.5) MODIFIER ROBOT,DAVANCAI Jordyn Juárez MD [facility] [place] [address] [facility] Referral ID Status Reason Start Date Expiration Date Visits Re quested Visits Authorized [id number] 1 1 Encounter Details Date Type Department Care Team (Latest Contact Info) Description 02/07/2024 1:23 PM EDT - 02/08/2024 10:47 AM EDT Hospital Encounter [place] [address] Jordyn Francisco MD [facility] [place] [address] Post-operative state; EIN (endometrial intraepithelial neoplasia); Morbid obesity with BMI of 40.0-44.9, adult Discharge Disposition: Home Social History Tobacco Use Types Packs/Day Years Used Date Smoking Tobacco: Former Cigarettes Q uit: 10/1978 Smokeless Tobacco: Never Alcohol Use Standard Drinks/Week Comments No 0 (1 standard drink = 0.6 oz pur e alcohol) [facility] Utilities Answer Date Recorded In the past 12 months has th e [employer], gas, oil, or water [employer] threatened to shut off services in your [...] place to sleep or slept in a alf (including now)? No 05/20/2023 DH IPV Inpatient [...] Mass Index 49.75 02/07/2024 2:12 PM EDT documented in this encounter Discharge Summaries * Lissette De Anda PA - 02/08/2024 10:00 AM EDT Discharge Summary Patient Name: Stacy Knight Patient Age: 73 y.o. Language: Latvian Race: White Ethnicity: Not nor Admit date: 02/07/2024 Discharge date and time: 02/08/2024 Attending Physician: Jordyn Francisco MD Discharge Physician: Jordyn Francisco MD Follow-up Recommendations for Providers: -Follow-up with Dr. Francisco on 03/04/24 at 12:00PM Inpatient Provider Contact Information: Dr. Jordyn Francisco, [facility] Gynecologic Oncology, Discharge Diagnoses (Hospital Problems) and Secondary Diagnoses (Chronic Problems): Active Hospital Problems Diagnosis Post-operative state EIN (endometrial intraepithelial neoplasia) Resolved Hospital Problems No resolved problems to display. Active Non-Hospital Problems Diagnosis Postoperative anemia due to acute blood loss S/P Right ENA, 01/19/21 (Dr Dumont) Morbid obesity with BMI of 40.0-44.9, adult 02/13/2018 S/P left total hip arthroplasty (Dr. Dumont) Primary osteoarthritis of left hip Pain in left hip History of total right knee replacement, R TKA performed in 2001 Tibial component revision L knee (11/11/2012, [facility]) Impaired renal function Operations/Major Procedures: 02/07/24 Robotic assisted laparoscopic total hysterectomy, right salpingo- oophorectomy, repair of omental umbilical hernia; lymph node assessment deferred 2/2 patient's significant co-morbidities to minimize OR time and retroperitoneal dissection History of Presentation: Stacy has h/o EIN treated with Megace as she had no running water and very limited support- no one to assist her post-operatively. She was able to obtain running water, has a plan for post-op care, and had emb demonstrating EIN now w/ foci FIGO2 thus presents for definitive surgical management. Hospital Course: Stacy Knight was admitted through Same Day Surgery and underwent the above procedures without complication. EBL was 12mL. Findings were notable for: EUA: normal appearing cervix uterus sounded to 6 cm ABD: normal upper abdominal survey omental adhesion including omentum in umbilical hernia normal right tube and ovary Postoperatively the patient was taken to PACU and on POD #0 was transferred to the floor. Post-operative course was uncomplicated. The patient was able to tolerate a regular diet and ambulate without difficulty. Guerra catheter was removed on POD#1 and pt was able to void without issue. Their pain was well-controlled on oral medications by the time of discharge. The patient was discharged home on POD #1 in stable condition with follow-up in place. We discussed discharge instructions and plan of care, all questions answered. She did not require opioids on day of discharge and has tramadol rx thus we discussed if needed forextreme pain she could use her tramadol though it may not be necessary. Vital signs at Discharge: BP: 116/81, Heart Rate: 78, Temp: 37.6 ??C (99.7 ??F), Resp: 18, BMI (Calculated): 49.74 Height: 157.5 cm (5' 2) (02/07/24 1412) Weight: 123.4 kg (272 lb) (02/07/24 1412) Functional and Cognitive status: baseline Important Studies and Lab Data: Labs: none Studies: none Pending Studies and Lab Data: Final pathology PEND Discharge Conditions/Prognosis: stable Discharge to: Home Updated Allergies/ADRs: Allergies Allergen Reactions Adhesive Tape Rips the skin off when removing Isopropyl Alcohol Rash Meperidine Hcl Other (See Comments) Very Loopy Penicillins Other (See Comments) SWELLS UP (age 15) [facility] Penicillin Allergy Risk Assessment 11/05/2020: Low risk penicillin allergy. OK to receive full dose of cefazolin, cefuroxime, or any 3rd or 4th+ generation cephalosporin. [facility] Penicillin Allergy Risk Assessment 05/08/2023: Low risk penicillin allergy. OK to receive full dose of cefazolin, cefuroxime, or any 3rd or 4th+ generation cephalosporin. 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 Patient open to a phone consult from all[facility]inic Propoxyphene Hcl Itching Immunizations Given this Hospitalization: Immunization History Administered Date(s) Administered Covid-19 Monovalent (Moderna Spikevax) 12yrs+ ([id number]) 06/11/2020, 07/09/2020 Covid-19 Monovalent (Moderna Spikevax) 6-11yrs ([id number]) 09/23/2021 Influenza Unspecified Formulation 12/16/2016 Influenza Vaccine, Whole 12/29/2008 Discharge Medications: Your Medications New Medications Dose Details senna-docusate 8.6-50 mg Tablet Commonly known as: Pericolace Take 1 tablet by mouth 2 times daily as needed for Constipation. Please use if taking your tramadol 1 tablet Refills: 0 Continued medications, unchanged Dose Details acetaminophen 500 mg tablet Commonly known as: Tylenol Take 2 tablets by mouth every 8 hours as needed for Pain. 1,000 mg Refills: 0 albuteroL (2.5 mg/3 mL) (0.083 %) Solution for Nebulization Commonly known as: Proventil, Ventolin 2.5 mg. 2.5 mg Refills: 0 aspirin EC 81 mg EC (DR) tablet Take 81 mg by mouth daily. 81 mg Refills: 0 augmented betamethasone dipropionate 0.05 % Ointment Commonly known as: Diprolene-AF APPLY TOPICALLY OT THE AFFECTED AREA(S) TWICE WEEKLY. DO NOT EXCEED 45 GRAMS PER WEEK. TO REPLACE CLOBETASOL Refills: 6 budesonide-formoteroL 80-4.5 mcg/actuation inhaler (HFA) Commonly known as: Symbicort Inhale 2 puffs into the lungs 2 times daily. 2 puff Refills: 0 buPROPion XL 150 mg XL 24 hr tablet Commonly known as: Wellbutrin XL 300 mg daily. 300 mg Refills: 12 calcium carbonate 200 mg calcium (500 mg) chewable tablet Commonly known as: TUMS Take 3 tablets by mouth as needed for Heartburn. 3 tablet Refills: 0 Cranberry 1,000 mg Capsule Take by mouth 2 times daily. Refills: 0 Entresto 24-26 mg tablet Take by mouth. Generic drug: sacubitriL-valsartan Refills: 0 ipratropium-albuteroL 0.5 mg-3 mg(2.5 mg base)/3 mL Solution for Nebulization Commonly known as: Duoneb 3 mLs. 3 mL Refills: 0 Lactase 9,000 unit Tablet Commonly known as: Lactaid Fast Act Take 2 tablets by mouth 3 times daily (with meals). 2 tablet Refills: 0 lactobacillus acidophilus Capsule Take 1 tablet by mouth daily. 1 tablet Refills: 0 levalbuteroL 45 mcg/actuation inhaler (HFA) Commonly known as: Xopenex HFA Inhale 2 puffs into the lungs every 4 hours as needed. 2 puff Refills: 0 loperamide 2 mg Tablet Commonly known as: IMODIUM A-D Take 2 tablets by mouth 4 times daily as needed. 2 tablet Refills: 0 METAMUCIL (SUGAR) ORAL Take 1 Scoop by mouth 2 times daily as needed (constipation). 1 Scoop Refills: 0 naproxen-capsicum oleoresin 500 mg- 0.025 % Kit Take 500 mg by mouth. 500 mg Refills: 0 Nystop 100,000 unit/gram Powder APPLY POWDER TO THE ABDOMINAL PANNUS TOPICALLY TWICE DAILY Generic drug: nystatin Refills: 1 torsemide 20 mg tablet Commonly known as: Demadex Take 20 mg by mouth daily. 20 mg Refills: 0 UNABLE TO FIND AZO-Yeast Refills: 0 STOPPED Medications Advair Diskus 500-50 mcg/dose inhaler (DPI) Generic drug: fluticasone propionate-salmeteroL Smoking Status at Discharge: Social History Tobacco Use Smoking Status Former Current packs/day: 0.00 Types: Cigarettes Quit date: 10/1978 Years since quittin.3 Smokeless Tobacco Never Instructions Given to Patient at Discharge: Patient Instructions PATIENT DISCHARGE INSTRUCTIONS Gynecologic Oncology phone number: [phone] (Nurse ext 4 then 4; appointment ext 1 then 4). After hours and on weekends please call hospital lighting equipment operator at [phone] and ask for Gynecologic Oncologist vision teacher. Call your doctor if you develop: --A fever over 101 degrees --Severe pain --Increasing pain, redness, or discharge at any of your incisions --Heavy vaginal bleeding-soaking through a pad an hour --It is normal to have continuous or intermittent light spotting from the vagina for up to 6 weeks following hysterectomy -Follow-up with Dr. Francisco 03/04/24 at 12:00PM Activity level: Walking is encouraged and stairs are allowed. No swimming for 8 weeks. Let your body guide you- try to avoid grunting/groaning/straining for about 2 weeks. If you feel you did too much please listen to your body and back off. There are no lifting restrictions but some activities maybe uncomfortable. Listen to your body and avoid uncomfortable levels of activity for six weeks. No sexual intercourse, no tampons, nothing in the vagina for 8 weeks. Diet: You may resume your regular diet. Be sure you drink plenty of fluids. Bowel Regimen: Please use vidhi-colace (senna-S or docusate-senna) 1-2 tablets twice daily for the entire time that you are taking narcotic pain medication to keep your bowel movements soft and regular. You may consider using this post- operatively even if you are not using narcotic pain medication. You can increase this to up to 8 tablets a day (and may take 6-12 hours for effect). If you are constipated or have not had a bowel movement in 2 days, you may add in polyethylene glycol (Miralax) 17g(one capful) 1-2 times daily (may take 1-2 days for effect). If this is ineffective you may add Milk of Magnesia 30mL (2 Tablespoons) daily (may take 30minutes - 6 hours to work). The next step is to use Magnesium Citrate 1 bottle (295mL)- this usually produces a bowel movement in 30 minutes-3 hours. Please call if you have not had a bowel movement in 3-4 days. Driving: Do not drive until you are off of all narcotic medications and you are not feeling pain and able to react quickly to press the brake pedal; usually between a couple of days to 2 weeks. Shower/Bath: Showering is fine. Short baths are okay but you should avoid having any abdominal incision submerged for more than 10-15 minutes for the next 2 weeks. Wound Care: Your incisions are closed with dissolvable stitches and steri-strips (small pieces of paper tape) and covered with dressing. You may remove the outer dressing(s) the day after surgery. The steri-strips will start to peel off in 5- 7 days, do not pick or rub prior to this. The stitches donot need to be removed- they will dissolve on their own. Pain Control: For your post-operative pain please use naproxen (or ibuprofen, not both), acetaminophen, heating pad, and your home tramadol if needed. Your goal is to be able to take several short walks every day (increase the duration each day) and to be able to sleep at night. If you are unable to do these things using the naproxen and acetaminophen and heating pad then you will need to use thenarcotic pain medication (tramadol) for breakthrough pain. You should be able to use less tramadol every couple days and require no breakthrough narcotic pain medication in about 1-3 days. Please use naproxen (Naprosyn/Aleve) 200mg every 12 hours if needed [or ibuprofen (Advil/Motrin) 400mg every 6 hours as needed but NOT both ibuprofen and naproxen)- please take with food for the next3-5 days. Please use acetaminophen (Tylenol) 650mg every 6 hours as needed (or 1000mg every 8 hours as needed). Do not exceed 3000mg of acetaminophen from any source in 24 hours. For extreme breakthrough pain you may use your home tramadol (50mg) every 6 hours as needed for pain that ???breaks through?? the naproxen and acetaminophen. Please take your medication exactly as prescribed. Read all instructions that come with your medication. Using narcotic pain medication (such as oxycodone, hydrocodone, hydromorphone [Dilaudid], morphine,fentanyl, or tramadol [Ultram]) may cause addiction. While addiction is more common in people with a personal or family history of addiction, it can occur in anyone. Taking more than the prescribed amount of medication or using with alcohol or other drugs can causeyou to stop breathing resulting in coma, brain damage, or . Opioids (oxycodone, hydrocodone, hydromorphone [Dilaudid], morphine, fentanyl, tramadol [Ultram]) can slow reaction time, cause drowsiness, or cloud judgement. It is unsafe for you to drive or operate heavy machinery while taking this medication. Opioids (oxycodone, hydrocodone, hydromorphone [Dilaudid], morphine, fentanyl, tramadol [Ultram]) are at risk of being diverted by anyone with access to your home. Opioids should be stored in a safe and secure place, such as a locked cabinet or safe. Unused opioids (oxycodone, hydrocodone, hydromorphone [Dilaudid], morphine, fentanyl, tramadol [Ultram]) should be disposed of according to the label or patient information. If there are no specific instructions, medications may be returned to a take-back location or mixed with a small amount of water and an undesirable waste substance such as coffee grounds or cat litter. General Instructions None Future Appointments and Orders Future Appointments and Orders Future Appointments Provider Department Dept Phone 03/04/2024 12:00 PM Jordyn Francisco MD Gynecology Oncology at [facility] Arrive at: [facility] [employer] Area [phone] Future Orders Complete By Expires [facility] [EQ161 Custom] As directed Process Instructions: Scheduling Instructions: Comments: Stacy Knight [address] [facility] [address] (home) Telephone Information: Diagnosis: deconditioning with Unsteady gait Significant weakness, ataxia or gait abnormality Patient's: Hgt: Ht Readings from Last 1 Encounters: 02/07/24 : 157.5 cm (5' 2) Wgt: Wt Readings from Last 1 Encounters: 02/07/24 : 123.4 kg (272 lb) VENDOR: [facility] Ordering: Front wheel walker Deliver to 's hospital room #: SS10-A Questions: Device Needed: WALKER (E0143) Patient Height (cm): 157.5 cm (5' 2) Patient Weight: 123.4 kg (272 lb) Diagnosis: Post-operative state Discharge References/Attachments None Provider Contact Information: Dandy Driscoll APRN [phone] documented in this encounter Discharge Instructions * Patient Instructions* Lissette De Anda PA - 02/07/2024 1:33 PM EDT PATIENT DISCHARGE INSTRUCTIONS Gynecologic Oncology phone number: [phone] (Nurse ext 4 then 4; appointment ext 1 then 4). After hours and on weekends please call hospital lighting equipment operator at [phone] and ask for Gynecologic Oncologist vision teacher. Call your doctor if you develop: --A fever over 101 degrees --Severe pain --Increasing pain, redness, or discharge at any of your incisions --Heavy vaginal bleeding-soaking through a pad an hour --It is normal to have continuous or intermittent light spotting from the vagina for up to 6 weeks following hysterectomy -Follow-up with Dr. Francisco 03/04/24 at 12:00PM Activity level: Walking is encouraged and stairs are allowed. No swimming for 8 weeks. Let your body guide you- try to avoid grunting/groaning/straining for about 2 weeks. If you feel you did too much please listen to your body and back off. There are no lifting restrictions but some activities maybe uncomfortable. Listen to your body and avoid uncomfortable levels of activity for six weeks. No sexual intercourse, no tampons, nothing in the vagina for 8 weeks. Diet: You may resume your regular diet. Be sure you drink plenty of fluids. Bowel Regimen: Please use vidhi-colace (senna-S or docusate-senna) 1-2 tablets twice daily for the entire time that you are taking narcotic pain medication to keep your bowel movements soft and regular. You may consider using this post- operatively even if you are not using narcotic pain medication. You can increase this to up to 8 tablets a day (and may take 6-12 hours for effect). If you are constipated or have not had a bowel movement in 2 days, you may add in polyethylene glycol (Miralax) 17g(one capful) 1-2 times daily (may take 1-2 days for effect). If this is ineffective you may add Milk of Magnesia 30mL (2 Tablespoons) daily (may take 30minutes - 6 hours to work). The next step is to use Magnesium Citrate 1 bottle (295mL)- this usually produces a bowel movement in 30 minutes-3 hours. Please call if you have not had a bowel movement in 3-4 days. Driving: Do not drive until you are off of all narcotic medications and you are not feeling pain and able to react quickly to press the brake pedal; usually between a couple of days to 2 weeks. Shower/Bath: Showering is fine. Short baths are okay but you should avoid having any abdominal incision submerged for more than 10-15 minutes for the next 2 weeks. Wound Care: Your incisions are closed with dissolvable stitches and steri-strips (small pieces of paper tape) and covered with dressing. You may remove the outer dressing(s) the day after surgery. The steri-strips will start to peel off in 5- 7 days, do not pick or rub prior to this. The stitches donot need to be removed- they will dissolve on their own. Pain Control: For your post-operative pain please use naproxen (or ibuprofen, not both), acetaminophen, heating pad, and your home tramadol if needed. Your goal is to be able to take several short walks every day (increase the duration each day) and to be able to sleep at night. If you are unable to do these things using the naproxen and acetaminophen and heating pad then you will need to use thenarcotic pain medication (tramadol) for breakthrough pain. You should be able to use less tramadol every couple days and require no breakthrough narcotic pain medication in about 1-3 days. Please use naproxen (Naprosyn/Aleve) 200mg every 12 hours if needed [or ibuprofen (Advil/Motrin) 400mg every 6 hours as needed but NOT both ibuprofen and naproxen)- please take with food for the next3-5 days. Please use acetaminophen (Tylenol) 650mg every 6 hours as needed (or 1000mg every 8 hours as needed). Do not exceed 3000mg of acetaminophen from any source in 24 hours. For extreme breakthrough pain you may use your home tramadol (50mg) every 6 hours as needed for pain that ???breaks through?? the naproxen and acetaminophen. Please take your medication exactly as prescribed. Read all instructions that come with your medication. Using narcotic pain medication (such as oxycodone, hydrocodone, hydromorphone [Dilaudid], morphine,fentanyl, or tramadol [Ultram]) may cause addiction. While addiction is more common in people with a personal or family history of addiction, it can occur in anyone. Taking more than the prescribed amount of medication or using with alcohol or other drugs can causeyou to stop breathing resulting in coma, brain damage, or . Opioids (oxycodone, hydrocodone, hydromorphone [Dilaudid], morphine, fentanyl, tramadol [Ultram]) can slow reaction time, cause drowsiness, or cloud judgement. It is unsafe for you to drive or operate heavy machinery while taking this medication. Opioids (oxycodone, hydrocodone, hydromorphone [Dilaudid], morphine, fentanyl, tramadol [Ultram]) are at risk of being diverted by anyone with access to your home. Opioids should be stored in a safe and secure place, such as a locked cabinet or safe. Unused opioids (oxycodone, hydrocodone, hydromorphone [Dilaudid], morphine, fentanyl, tramadol [Ultram]) should be disposed of according to the label or patient information. If there are no specific instructions, medications may be returned to a take-back location or mixed with a small amount of water and an undesirable waste substance such as coffee grounds or cat litter. documented in this encounter Medications at Time [...] the lungs every 4 hours as needed. documented as of this encounter Progress Notes * Joo Epperson RN - 02/08/2024 10:47 AM EDT [facility] Short Stay Unit Discharge Note All relevant discharge milestones have been met by the patent. After Visit Summary and discharge teaching reviewed with the patient. IV access has been discontinued. All personal belongings have been returned to the patient/family upon their departure from the unit. Patient has been discharged to home The patient has been discharged without VNA services. * Wil Rios MD - 02/08/2024 6:13 AM EDT Images from the original note were not included. Gynecologic Oncology Post Op Check Stacy Knight is a 73 y.o. woman whose PMH is significant for CHF, COPD, GERD, IBS, HTN, T2DM and aortic stenosis who is post operative day # 1 s/p GAGANH, RSO for EIN with focal endometrial carcinoma. 24 hr events: No acute events overnight Subjective: Stacy endorses feeling well this morning. She was able to rest. She denies any pain. She has tolerated sips of water and pudding last night without nausea or vomiting. She was mi a little short ofbreath in PACU and she got an Albuterol nebulizer and used her own inhaler and felt better. She wassatting well when she is sitting up without shortness of breath on room air. She denies chest pain.She has stood by her bed without lightheadedness or dizziness. Guerra is in place, undergoing a backfill trial this morning. She has a ride set up for today and she is staying with a friend for recovery and she feels supported. Last value Range last 8 hrs Temperature Temp: 37.1 ??C (98.8 ??F) Temp: [37.1 ??C (98.8 ??F)] Heart Rate Heart Rate: 78 Heart Rate: -- Blood Pressure BP: 132/62 BP: (132)/(62) Respiratory Rate Resp: 18 Resp: [18] SpO2 SpO2: 95 % SpO2: [95 %] Intake/Output Summary (Last 24 hours) at 02/08/2024 0712 Last data filed at 02/08/2024 0400 Gross per 24 hour Intake 1325 ml Output 472 ml Net 853 ml No intake/output data recorded. UOP at ~83.3 cc/hr recorded over 3 hours Physical Exam: Gen: Resting comfortably in bed. NAD. Neuro: Alert and oriented. Cardiac: RRR. No murmurs, rubs, or gallops. Pulm: CTAB. No wheezes, rales, or rhonci. Abd: +BS. Soft. Non tender. No rebound or guarding. Incision: 5 laparoscopic sites covered with dressings; minimal strikethrough on leftmost site, all others are C/D/I. No surrounding erythema, or induration. : Guerra draining straw colored urine. Extremities: No lower extremity edema. Final Pathology Pending Glucose: Assessment and Plan Stacy Knight is a 73 y.o. woman whose PMH is significant for CHF, COPD, GERD, IBS, HTN, T2DM and aortic stenosis who is post operative day # 1 s/p RATLH, BSO, SLND for EIN with focal endometrial carcinoma. She is doing well in the post period, Meeting post op milestones except voiding, plan to follow up after voiding trial. Neuro: Pain well controlled on acetaminophen, with oxycodone available. Alert and oriented. Cardiovascular: Vital signs wnl. Hemodynamically stable, no evidence of bleeding. -Continue home Torsemide, holding home Sacubitril-valsartan Pulmonary: Adequate spO2 on 2L NC, adequate spO2 when sitting up on room air.. Wheezing resolved after albuterol nebulizer - Encourage incentive spirometry - Albuterol nebulizer Q4 PRN - Using home budesonide inhaler GI: Denies nausea, vomiting. -Advance diet as tolerated. -pericolace standing with ondansetron prn. : Guerra is in place draining orange colored urine. good urine output. -Backfill voiding trial this morning. -Monitor intake and output FEK: IVF: LR @100mL/hr. -DC fluids once tolerating adequate PO Onc: Final pathology report pending. Follow up in clinic with Dr. Francisco on 03/04/2024 Endocrine: DM II -BGL before meals and at bedtime -SSI with Lispro ID: Afebrile, received prophylactic antibiotics preop, no evidence of infection -continue to monitor vital signs. Prophylaxis: - SCDs while in bed, encourage ambulation, incentive spirometry Code Status: Full Code Dispo: Pending clinical course, likely today once clinically appropriate. Discussed with attending gynecologic-oncologist, Dr. Francisco. Wil Rios MD, PGY3 02/08/2024 7:12 AM * Rosario Ramires MD - 02/07/2024 10:42 PM EDT Gynecologic Oncology Post Op Check Stacy Knight is a 73 y.o. 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 Subjective: Stacy endorses significant pain since surgery, but has been able to sleep and has to be awoken several times during this evaluation. She has been trying to take some sips of water, denies nausea or vomiting. She was feeling short of breath in PACU but states this has improved since she got an Albuterol nebulizer and used her own inhaler. She denies chest pain. She has not yet ambulated or noticedpassing gas. Guerra is in place. Intraop Findings: EUA: normal appearing cervix uterus sounded to 6 cm ABD: normal upper abdominal survey omental adhesion including omentum in umbilical hernia normal right tube and ovary EBL: 12mL Last value Range last 8 hrs Temperature Temp: 36 ??C (96.8 ??F) Temp: [36 ??C (96.8 ??F)-36.6 ??C (97.9 ??F)] Heart Rate Heart Rate: 78 Heart Rate: [71-78] Blood Pressure BP: (!) 142/99 BP: (117-142)/(38-99) Respiratory Rate Resp: 16 Resp: [15-18] SpO2 SpO2: 96 % SpO2: [96 %-100 %] Intake/Output Summary (Last 24 hours) at 02/07/20242241 Last data filed at 02/07/2024 210 Gross per 24 hour Intake 1100 ml Output 222 ml Net 878 ml I/O this shift: In: - Out: 222 [Urine:210; Blood:12] UOP at ~52.5 cc/hr Physical Exam: Gen: Resting comfortably in bed. NAD. Neuro: Alert and oriented. Cardiac: RRR. No murmurs, rubs, or gallops. Pulm: CTAB. No wheezes, rales, or rhonci. Abd: +BS. Soft. Non tender. No rebound or guarding. Incision: 5 laparoscopic sites covered with dressings; minimal strikethrough on leftmost site, all others are C/D/I. No surrounding erythema, or induration. : Guerra draining straw colored urine. Extremities: No lower extremity edema. Final Pathology Pending Assessment and Plan Stacy Knight is a 73 y.o. 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 Neuro: Pain well controlled on acetaminophen, with oxycodone available. Alert and oriented. Cardiovascular: Vital signs wnl. Hemodynamically stable, no evidence of bleeding. -Continue home Torsemide, holding home Sacubitril-valsartan Pulmonary: Adequate spO2 on 2L NC. Wheezing resolved after albuterol nebulizer - Encourage incentive spirometry - Albuterol nebulizer Q4 PRN - Using home budesonide inhaler GI: Denies nausea, vomiting. -Advance diet as tolerated. -pericolace standing with ondansetron prn. : Guerra is in place draining orange colored urine. 52mL/hr; good urine output. -D/C guerra when ambulatory -Monitor intake and output FEK: IVF: LR @100mL/hr. -DC fluids once tolerating adequate PO Onc: Final pathology report pending. Follow up in clinic 3-4 weeks postoperatively. Endocrine: DM II -BGL before meals and at bedtime -SSI with Lispro ID: Afebrile, received prophylactic antibiotics preop, no evidence of infection -continue to monitor vital signs. Prophylaxis: - SCDs while in bed, encourage ambulation, incentive spirometry Code Status: Full Code Dispo: Pending clinical course Discussed with attending gynecologic-oncologist, Dr. Francisco. Rosario Ramires MD, PGY3 02/07/2024 10:42 PM * Luiz Mcclain RN - 02/07/2024 8:52 PM EDT Pt arrived to PACU from OR. Connected to monitor, alarms set and reviewed. Airway maintained. Coarse lungs sounds, independently coughing up thick yellow sputum. Incision sites are covered with gauze and Tegaderm per provider, they are clean dry and intact . She denies n/v pain, guerra draining orange tinted urine. documented in this encounter H&P Notes * Elle Barroso MD - 02/07/2024 2:07 PM EDT Gynecologic Oncology Pre-op H&P HISTORY OF PRESENT ILLNESS: Stacy Knight is a 73 y.o. patient presenting for her pre-op evaluation. She is scheduled for a robotic-assisted total laparoscopic hysterectomy, bilateral salpingo-oophorectomy, sentinel lymph node dissection for endometrial carcinoma. She last saw Dr. Francisco on 01/01/2024. Today, she reports she saw her pourer metal yesterday who told her that her Aorta was smaller. However, he felt that she was safe to proceed with surgery today, and apparently encouraged her to have this procedure prior to addressing her cardiac findings. She desires to proceed with the scheduledprocedures. Denies lightheadedness, chest pain, shortness of breath, abdominal pain, leg cramping. She underwent her ultrasound on 01/24/24 IMPRESSION 1. Anteverted uterus measuring 8.3 x [...] PM Electronically signed by: Cory Dominguez MD, Gynecologic history: Menarche was approximately age: [age] [...] - CHF, follows with Dr. 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 Respiratory: Negative for cough, shortness of breath and wheezing. Cardiovascular: Negative for chest pain, palpitations and leg swelling. Gastrointestinal: Negative for abdominal pain, nausea and vomiting. Genitourinary: Negative for pelvic pain and vaginal bleeding. Neurological: Negative for dizziness and headaches. Past Medical History: Diagnosis Date Asthma Bowel disease ibs Chronic pain right hip and knee pain COPD (chronic obstructive pulmonary disease) Gastroesophageal reflux rare use of TUMS High blood pressure controlled with medication Impaired renal function 09/13/2010 Mental health problem depression Morbid obesity Postoperative anemia due to acute blood loss 01/25/2021 T2DM History of Jardiance use, on Ozempic for weight loss now Transfusion history 1983, ruptured ectopic Vertigo fell out of chair in past week or so Past Surgical History: Procedure Laterality Date JOINT REPLACEMENT PRG RADEX HIP UNILATERAL WITH PELVIS MINIMUM 4 VIEWS Left 02/13/2018 HIP INTRAOP RADIOLOGIC EXAMINATION, UNILATERAL, W PELVIS; 4+ VIEWS (WRVU 0.27) performed by Patrick Dumont MD at [facility] MAIN OR PRG RADEX HIP UNILATERAL WITH PELVIS MINIMUM 4 VIEWS Right 01/19/2021 HIP INTRAOP RADIOLOGIC EXAMINATION, UNILATERAL, W PELVIS; 4+ VIEWS (WRVU 0.27) performed by Patrick Dumont MD at [facility] MAIN OR PRO ARTHROPLASTY ACETABULAR/PROX FEM PROSTC AGRFT/ALGRFT Left 02/13/2018 @TOTAL HIP ARTHROPLASTY, ANTERIOR APPROACH (WRVU 20.72) performed by Patrick Dumont MD at [facility] OR PRO ARTHROPLASTY ACETABULAR/PROX FEM PROSTC AGRFT/ALGRFT Right 01/19/2021 TOTAL HIP ARTHROPLASTY, ANTERIOR APPROACH (WRVU 20.72) performed by Patrick Dumont MD at [facility] MILADY PRO REVISE KNEE JOINT REPLACE, ALL PARTS 11/11/2012 @TOTAL KNEE REVISION ARTHROPLASTY, COMPLETE performed by Carlos Delcid MD at [facility] OR SALPINGECTOMY unilateral, via pfannensteil, requiring transfusion Allergies: Allergies Allergen Reactions Adhesive Tape Rips the skin off when removing Isopropyl Alcohol Rash Meperidine Hcl Other (See Comments) Very Loopy Penicillins Other (See Comments) SWELLS UP (age 15) [facility] Penicillin Allergy Risk Assessment 11/05/2020: Low risk penicillin allergy. OK to receive full dose of cefazolin, cefuroxime, or any 3rd or 4th+ generation cephalosporin. [facility] Penicillin Allergy Risk Assessment 05/08/2023: Low risk penicillin allergy. OK to receive full dose of cefazolin, cefuroxime, or any 3rd or 4th+ generation cephalosporin. 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 Patient open to a phone consult from all.Clinic Propoxyphene Hcl Itching No current facility-administered medications on file prior to encounter. Current Outpatient Medications on File Prior to Encounter Medication Sig Dispense Refill loperamide (IMODIUM A-D) 2 mg Tablet Take 2 tablets by mouth 4 times daily as needed. albuteroL (Proventil, Ventolin) (2.5 mg/3 mL) (0.083 %) Solution for Nebulization 2.5 mg. ipratropium-albuteroL (Duoneb) 0.5 mg-3 mg(2.5 mg base)/3 mL Solution for Nebulization 3 mLs. torsemide (Demadex) 20 mg tablet Take 20 mg by mouth daily. sacubitriL-valsartan (Entresto) 24-26 mg tablet Take by mouth. aspirin EC 81 mg EC (DR) tablet Take 81 mg by mouth daily. lactobacillus (BACID) Capsule Take 1 tablet by mouth daily. acetaminophen (Tylenol) 500 mg Tablet Take 2 tablets by mouth every 8 hours as needed for Pain. Lactase (Lactaid Fast Act) 9,000 unit Tablet Take 2 tablets by mouth 3 times daily (with meals). calcium carbonate (Tums) 200 mg calcium (500 mg) Tablet, Chewable Take 3 tablets by mouth as neededfor Heartburn. buPROPion (WELLBUTRIN XL) 150 mg Tablet Extended Release 24 hr 300 mg daily. 12 Cranberry 1,000 mg Cap Take by mouth 2 times daily. fluticasone propion-salmeteroL (Advair Diskus) 500-50 mcg/dose Disk with Device 1 puffs, Inhale, BID, # 28 EA, 4 Refill(s), Pharmacy: [id number], 157, cm, 04/22/22 20:46:00 EST, Height/Length Dosing, 122.47, kg, 04/22/22 20:46:00 EST, Weight Dosing naproxen-capsicum oleoresin 500 mg- 0.025 % Kit Take 500 mg by mouth. UNABLE TO FIND AZO-Yeast augmented betamethasone dipropionate (DIPROLENE-AF) 0.05 % Ointment APPLY TOPICALLY OT THE AFFECTEDAREA(S) TWICE WEEKLY. DO NOT EXCEED 45 GRAMS PER WEEK. TO REPLACE CLOBETASOL 6 NYSTOP Powder APPLY POWDER TO THE ABDOMINAL PANNUS TOPICALLY TWICE DAILY 1 psyllium seed, with sugar, (METAMUCIL, SUGAR, ORAL) Take 1 Scoop by mouth 2 times daily as needed (constipation). levalbuteroL (XOPENEX HFA) 45 mcg/actuation HFA Aerosol Inhaler Inhale 2 puffs into the lungs every4 hours as needed. Social History Tobacco Use Smoking status: Former Current packs/day: 0.00 Types: Cigarettes Quit date: 10/1978 Years since quittin.3 Smokeless tobacco: Never Substance Use Topics Alcohol use: No OBJECTIVE: Last value Range last 8 hrs Temperature Temp: 36.6 ??C (97.9 ??F) Temp: [36.6 ??C (97.9 ??F)] Heart Rate Heart Rate: 96 Heart Rate: [96] Blood Pressure BP: 169/78 BP: (169)/(78) Respiratory Rate Resp: 16 Resp: [16] SpO2 SpO2: 96 % SpO2: [96 %] Constitutional: Well-developed and well-nourished. No distress. Cardiovascular: Holosystolic murmur present, regular rate. Pulmonary/Chest: Effort normal and bilateral breath sounds clear to auscultation Abdominal: Soft, normal bowel sounds. She exhibits no distension. There is no tenderness. Neurological: She is alert A/P: Stacy Knight is a 73 y.o. patient presenting today for robotic-assisted total laparoscopic hysterectomy, bilateral salpingo-oophorectomy, sentinel lymph node dissection for endometrial carcinoma. She is doing well today and ready for surgery. Plan to proceed with scheduled procedure Antibiotics - 2g Ancef, 500mg Flagyl DVT prophylaxis - SCDs, 5000U heparin [facility] She has tolerated Tylenol and ibuprofen in the past. Surgical consent reviewed Records requested from outside pourer metal. Will plan to proceed given reported clearance from pourer metal. ORT and opioid consent completed today. Discussed and seen with Dr. Francisco, attending gynecologic oncologist Elle Barroso MD, PGY7 Fellow, Division of Urogynecology and Reconstructive Pelvic Surgery documented in this encounter Miscellaneous Notes * Brief Op Note - Jordyn Francisco MD - 02/07/2024 7:38 PM EDT Brief Operative Note Patient Name: Stacy Knight : [id number] MR#: [id number] Case Date: 02/07/2024 Surgeon: Surgeons and Role: * Jordyn Francisco MD - Primary * Elle Barroso MD - Fellow - Assisting Scarlet CRAWFORD Preoperative diagnosis: ENDOMETRIAL CANCER BMI 50 Postoperative diagnosis: ENDOMETRIAL CANCER s/p left salpingo oophprectomy umbilical hernia omentaladhesions Procedure(s) (LRB): ROBOTIC LAPAROSCOPY,TOTAL HYST, UTERUS<250GM, REM TUBE &/OR OVARY (WRVU 15) (N/A) MODIFIER ROBOT,DAVINCI XI (N/A) LAPAROSCOPIC, LYSIS ADHESIONS, OMENTUM (WRVU 15.67) (N/A) Anesthesia: General Findings: EUA: normal appearing cervix uterus sounded to 6 cm ABD: normal upper abdominal survey omental adhesion including omentum in umbilical hernia normal right tube and ovary Complications: none Intake: Intraprocedure Crystalloid Total Intake lactated ringers 500.00 mL lactated ringers infusion 500.00 mL ceFAZolin (Ancef) 2 g vial attach to sodium chloride 0.9% 100 mL Mini-Bag Plus 100.00 mL Total Intake 1100 mL Transfusion No data found in the last 1 encounters. Output: Estimated Blood Loss: Urine Output:: (no urine output recorded) Other Output: (no other output recorded) Drains: Guerra Specimens removed during surgery: ID Type Source Tests Collected by Time Destination 1 : Tissue Uterus, Cervix, Right Fallopian Tube, Right Ovary SURGICAL PATHOLOGY Jordyn Francisco MD 02/07/20241916 2 : Tissue Omentum SURGICAL PATHOLOGY Jordyn Francisco MD 02/07/20241934 Disposition: awakened from anesthesia, extubated and taken to the recovery room in a stable condition, having suffered no apparent untoward event. Condition: doing well without problems Attestation: Case Date: 02/07/2024 I was present and I participated during the entire procedure (does not need to include opening and closing). (Please see the Surgical Encounter Summary for any Implant and Specimen details pertinent to this patient.) Surgical Infection Prevention Bundle Used? Yes Infection present at time of surgery?: No Chlorhexidine wipes in Same Day prior to surgery: Yes Expected bowel surgery? No. Fingerstick glucose checked in Same Day: Yes Chlorhexidine-alcohol skin prep: Yes Pre-op IV antibiotics: Cefazolin + Metronidazole 3 grams Vaginal prep: Yes. Povidone-iodine Open case? No. * Op Note - Jordyn Francisco MD - 02/07/2024 5:22 PM EDT [facility] Operative Note Patient Name: Stacy Knight : [id number] MR#: [id number] Case Date: 02/07/2024 Surgeon: Surgeons and Role: * Jordyn Francisco MD - Primary * Elle Barroso MD - Fellow - Assisting Registered Nurse Program Clinician: Scarlet Davila RN Preoperative diagnosis: ENDOMETRIAL CANCER BMI 50 Postoperative diagnosis: ENDOMETRIAL CANCER omental adhesions omental umbilical hernia s/p left salpingo oophprectomy Procedure(s) (LRB): ROBOTIC LAPAROSCOPY,TOTAL HYST, UTERUS<250GM, REM TUBE &/OR OVARY (WRVU 15) (N/A) MODIFIER ROBOT,DAVINCI XI (N/A) LAPAROSCOPIC, LYSIS ADHESIONS, OMENTUM (WRVU 15.67) (N/A) Anesthesia: General Estimated Blood Loss: 12 mL Specimens removed during surgery: ID Type Source Tests Collected by Time Destination 1 : Tissue Uterus, Cervix, Right Fallopian Tube, Right Ovary SURGICAL PATHOLOGY Jordyn Francisco MD 02/07/2024 191 2 : Tissue Omentum SURGICAL PATHOLOGY Jordyn Francisco MD 02/07/2024 193 Drains: * No LDAs found * Surgical Closure: Primary Closure - skin incision is completely closed without any wires, monique, drains or other devices Disposition: awakened from anesthesia, extubated and taken to the recovery room in a stable condition, having suffered no apparent untoward event. Condition: doing well without problems (Please see the Surgical Encounter Summary for any Implant and Specimen details pertinent to this patient.) HPI/Surgical Indications: 73 year old with long history post-menopausal bleeding. Patient had endometrial biopsy c/w EIN and more recently foci endometrial carcinoma. Patient has history ectopic . Due to the patient's significant co- morbidities we did not perform a lymph node assessment to minimize OR time and retroperitoneal dissection. Procedure Description: The patient was identified and consent was reaffirmed. She was taken to the operating room and placed in low lithotomy position with stirrups after induction of general anesthesia. An exam was conducted with findings as discussed above. Patient received ancef 3 grams and flagyl 500 mg as prophylaxis. An antiseptic preparation of the abdomen, perineum, and vagina was performed and the patient was draped in the usual sterile manner. A Guerra catheter was inserted into the bladder. A surgical pause was performed, correctly identifying the intended procedures, antibiotic administration, etc for thispatient. A Veress needle was used to enter the intraabdominal cavity 3 cm above the umbilicus. Intraperitoneal entry was confirmed with low opening pressure and hanging drop test. Pneumoperitoneum was obtained. The 8-mm da Mark trocar was then inserted under direct visualization, verifying atraumatic entry. The patient was placed in steep Trendelenburg position. Two additional 8-mm robotic trocars were placed in the RLQ and the Ligasure was used to take down the omental adhesions which covered the mid abdomen and left upper quadrant including resecting the omentum in the umbilical hernia. Once anatomy had been restored, we were able to place the additional left upper quadrant trocars in the usual locations without difficulty, under direct visualization. a 5 mm accessory port was placed in the right upper quadrant after infiltration with Marcaine under direct visualization. the omentum from the hernia was then ligated and placed into an endocatch bag and the specimen was removed form the abdomen and sent to Pathology. A diagnostic laparoscopy was performed with the findings as mentioned above. The left fallopian tube and ovary were surgically absent. We then lysed adhesions of the sigmoid epiploica to the posterior uterus and to the left cornua of the uterus at the likely site of her priorectopic and left salpingo oophprectomy. The right tube was cauterized . The vidhi-vesicle and retroperitoneal spaces were opened with sharp dissection and electrocautery bilaterally. The ureters were identified bilaterally. A window was made in the medial leaf of the broad ligament on the right side between the infundibulopelvic ligament and the ureter. The infundibulopelvic ligament was then cauterized and transected. The round ligaments were desiccated and divided bilaterally. A bladder flap was developed, adhesions from bladder to anterior lower uterine segment were taken down, and the bladder was dissected off the underlying cervix past the level of the V-care uterine manipulator. The uterine vessels were then skeletonized, desiccated and divided bilaterally. The paracervicaltissue was then cauterized and transected parallel and adjacent to the cervix until the edge of theV-care cup was reached. A colpotomy was then made and the uterus, cervix, right tube and ovary was delivered through the vagina. The abdomen was copiously irrigated and good hemostasis was noted. The vaginal cuff was closed with a 9 inch 0 V-lock suture in continuous running fashion in two layers. Surgicel was placed into the sites of dissection. The robot was undocked. The port sites were closed with 4-0 Monocryl sutures. A vaginal exam was performed and no lacerations were noted. No foreign bodies were left in the vagina. All counts were reported correct x2. Steristrips were applied to each site. The patient was returned to a supine position as anesthesia was discontinued. She was then extubated and taken to the PACU in stable condition, and accompanied by the anesthesiologist and surgeons. This patient has morbid obesity with a Body mass index is 49.75 kg/m??.. This made the operation significantly more difficult. Her obesity increased the time required for patient positioning, necessitated additional equipment and supplies, and increased the difficulty, complexity, and time requiredto perform the required surgery. Specifically, it was much more difficult to prepare the patient for surgery, obtain adequate exposure and perform the linares parts of the operation because of this patient's obesity. I estimate that this problem increased the time required to perform the surgery by 75%. Antibiotics: 3g IV Ancef and flagyl 500 mg VTE Prophylaxis: ICD's continuously applied to the lower extremities. Surgical Infection Prevention Bundle Used? See brief op note Attestation: Case Date: 02/07/2024 I was present and I participated during the entire procedure (does not need to include opening and closing). Jordyn Francisco MD 02/07/2024 documented in this encounter Plan of Treatment Upcoming Encounters Date Type Department Care Team (Late st Contact Info) Description 03/04/2024 12:00 PM EST Office Visit [place] [address] Jordyn Francisco MD [facility] [address] [place] [address] documented as of this encounter Procedures Procedure Name Priority Date/Time Associated Diagnosis Comments POC, GLUCOSE Routine 02/08/2024 9:48 AM EDT POC, GLUCOSE Routine 02/08/2024 7:27 AM EDT POC, GLUCOSE Routine 02/07/2024 9:20 PM EDT SURGICAL PATHOLOGY Routine 02/07/2024 7: 17 PM EDT Unlisted Laparoscopic Proc Abd Peritoneum & Omentum ([id number]) 02/07/2024 4:32 PM EDT ENDOMETRIAL CANCER MODIFIER ROBOT,DAVINCI XI 02/07/2024 4:32 PM EDT ENDOMETRIAL CANCER Laparoscopy W Tot Hysterectuterus <=250 Gram W Tube/Ovary ([id number]) 02/07/2024 4:32 PM EDT ENDOMETRIAL CANCER POC, GLUCOSE Routine 02/07/2024 2:11 PM EDT documented in this encounter Results * (ABNORMAL) POC, GLUCOSE (02/08/2024 9:48 AM EDT) Glucometer, POC 257(H) 65 - 199 mg/dL 02/08/2024 9:49 AM EDT [facility] Comment:Supplemental ranges: <140 mg/dL before meals <180 mg/dL all other times of the day. Blood CAPILLARY BLOOD / Unknown 02/08/2024 9:48 AM EDT 02/08/2024 9:49 AM EDT Jordyn Francisco MD POINT OF CARE TEST O RDERABLES [facility] [place] [address] * (ABNORMAL) POC, GLUCOSE (02/08/2024 7:27 AM EDT) Glucometer, POC 244(H) 65 - 199 mg/dL 02/08/2024 7:27 AM EDT [facility] Comment:Supplemental ranges: <140 mg/dL before meals <180 mg/dL all other times of the day. Blood CAPILLARY BLOOD / Unknown 02/08/2024 7:27 AM EDT 02/08/2024 7:27 AM EDT Jordyn Francisco MD POINT OF CARE TEST O RDERANOLBERTO Performing Organization Address [facility] Co de Phone Number [facility] [place] [address] * POC, GLUCOSE (02/07/2024 9:20 PM EDT) Glucometer, POC 181 65 - 199 mg/dL 02/07/2024 9:22 PM EDT [facility] Comment:Supplemental ranges: <140 mg/dL before meals <180 mg/dL all other times of the day. Blood CAPILLARY BLOOD / Unknown 02/07/2024 9:20 PM EDT 02/07/2024 9:22 PM EDT Jordyn Francisco MD POINT OF CARE TEST O NELLY Performing Organization Address [facility] de Phone Number [facility] [place] [address] * Surgical Pathology (02/07/2024 7:17 PM EDT) Case Report Surgical Pathology Report ? Case: [id number] ? Authorizing Provider: ??Jordyn Francisco MD ?Collected: ? 02/07/20241916 ? Ordering Location: ? Main Operating Room [place] ?? Received: ?02/07/20241999 ? [facility] ? Hospital ? Pathologist: ? Elle Servin, ? Specimens: ?? A) - Uterus, Cervix, Right Fallopian Tube, Right Ovary ? B) - Omentum ? 02/19/2024 5:49 PM EST [facility] Final Diagnosis A. Uterus, Cervix, Right Fallopian Tube, Right Ovary, Hysterectomy and Right Salpingo-oophorectomy : - Endometrial adenocarcinoma, endometrioid type, FIGO grade 1, at least 3.1 cm involving anterior and posterior endometrium (see synoptic report) - Leiomyoma - Benign ovary and fallopian tube B. Omentum, Excision: - Benign omental adipose tissue 02/19/2024 5:49 PM EST [facility] Synoptic Report ENDOMETRIUM ENDOMETRIUM - [...] endometrial intraepithelial neoplasia (EIN) 02/19/2024 5:49 PM [facility] Additional Studies Task ID IHC/Special Stains Result A11-2 MLH-1 Positive A11-3 MSH-2 Positive A11-4 MSH-6 Positive A11-5 PMS-2 Positive A11-6 OR (Clone 16) Positive A11-7 ER (Clone SP1) Positive A34-2 ER (Clone SP1) Positive A34-3 OR (Clone 16) Positive A34-4 MLH-1 Positive A34-5 MSH-2 Positive A34-6 MSH-6 Positive A34-7 PMS-2 Positive B3-2 [place] Red Stain Negative 02/19/2024 5:49 PM [facility] Disclaimer(s) Immunohistochemical assay was performed on paraffin-embedded tissue sections fixed in 10% neutral buffered formalin for 6-72 hours using the polymer system technique with appropriate controls. The assay was performed according to the head filter press tender's instructions using anti-MLH-1, anti-MSH-2, anti-MSH-6, and [...] and other diagnostic tests. 02/19/2024 5:49 PM [facility] Clinical Information A. Uterus, Cervix, Right Fallopian Tube, Right Ovary, *Other - as specified in Clinical Information B. Omentum, *Other - as specified in Clinical Information 02/19/2024 5:49 PM [facility] Gross Description A. Uterus, Cervix, [...] Tube: 4.0 x 0.4 cm, fimbriated. Sections/Processing: Lumber Bearer sections including the entire endometrium in 36 [...] fibroadipose tissue. No gross lesions identified. Sections/Processing: Lumber Bearer sections in 3 cassettes labeled B1-B3. 02/19/2024 5:49 PM [facility] Result Note Routine 02/19/2024 5:49 PM [facility] Tissue (Uterus, Cervix, Right Fallopian Tube, Right Ovary) 02/07/2024 7:17 PM EDT 02/07/2024 8:00 PM EDT Comment:Pre-op diagnosis: ENDOMETRIAL CANCER Tissue specimen (specimen) OMENTUM STRUCTURE / Unknown 02/07/2024 7:35 PM EDT 02/07/2024 8:00 PM EDT Comment:Pre-op diagnosis: ENDOMETRIAL CANCER Jordyn Francisco MD PATHOLOGY/CYTOLOGY O RDERABLES [facility] [place] [address] * POC, GLUCOSE (02/07/2024 2:11 PM EDT) Glucometer, POC 103 65 - 199 mg/dL 02/07/2024 2:11 PM EDT [facility] Comment:Supplemental ranges: <140 mg/dL before meals <180 mg/dL all other times of the day. 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 - Unless otherwise specified, when ordered PRN for pain, acetaminophen should be given first if other PRN pain medications are ordered., Routine Given 02/08/2024 7:21 AM EDT 650 mg acetaminophen (Tylenol) tablet 975 mg 975 mg, Oral, ONCE, 1 dose, On Effie 02/07/24 at 1515, - Maximum dose of acetaminophen is 4,000 mg from all sources in 24 hours. - Unless otherwise specified, when ordered PRN for pain, acetaminophen should be given first if other PRN pain medications are ordered., Day of Surgery (Day of Procedure), Routine Given 02/07/2024 3:02 PM EDT 975 mg albuteroL (Proventil, Ventolin) (2.5 mg/3 mL) (0.083 %) nebulizer solution 2.5 mg 2.5 mg, Nebulization, EVERY 4 HOURS PRN, Starting on Effie 02/07/24 at 2004, Until Sun02/08/24 at 1248, Wheezing, Shortness of Breath, Routine Given 02/08/2024 8:47 AM EDT 2.5 mg Given 02/07/2024 8:55 PM EDT 2.5 mg dextrose 10% infusion 250 mL, at 1,000 mL/hr, Intravenous, EVERY 15 MIN PRN, Starting on Effie 02/07/24 at 2121, Until Sun02/08/24 at 1248, For BG 50-70 mg/dL: Oral treatment preferred: If able to drink, give 120 mL juice or regular (not diet) soda OR if NPO, give 15 gram glucose 40% oral gel massaged into buccal mucosa OR if unconscious or uncooperative, give 25 gram (250 mL) dextrose 10% IV over 15 minutes per protocol OR, if no IV access, 1 mg glucagon IM. For BG less than 50 mg/dL: Oral treatment preferred: If able to drink, give 240 mL juice or regular (not diet) soda OR if NPO, give 30 gram glucose 40% oral gel massaged in buccal mucosa OR if unconscious or uncooperative, give 25 gram (250 mL) dextrose 10% IV over 15 minutes per protocol OR, if no IV access, 1 mg glucagon IM. Recheck BG in 15 minutes. May repeat juice/soda, gel, dextrose or glucagon once per episode. Notify provider if hypoglycemia does not resolve after two treatments. Providers should consider the following: administering longer-acting treatments for the duration of active insulin or hypoglycemia agent for persistent hypoglycemia and re-evaluating active insulin orders before administering the next dose. glucagon (Glucagen) (1 mg/mL) injection solution 1 mg 1 mg, Intramuscular, EVERY 15 MIN PRN, Starting on Effie 02/07/24 at 2121, Until Sun02/08/24 at 1248, Low blood sugar, For BG 50-70 mg/dL: Oral treatment preferred: If able to drink, give 120 mL juice or regular (not diet) soda OR if NPO, give 15 gram glucose 40% oral gel massaged into buccal mucosa OR if unconscious or uncooperative, give 25 gram (250 mL) dextrose 10% IV over 15 minutes per protocol OR, if no IV access, 1 mg glucagon IM. For BG less than 50 mg/dL: Oral treatment preferred: If able to drink, give 240 mL juice or regular (not diet) soda OR if NPO, give 30 gram glucose 40% oral gel massaged in buccal mucosa OR if unconscious or uncooperative, give 25 gram (250 mL) dextrose 10% IV over 15 minutes per protocol OR, if no IV access, 1 mg glucagon IM. Recheck BG in 15 minutes. May repeat juice/soda, gel, dextrose or glucagon once per episode. Notify provider if hypoglycemia does not resolve after two treatments. Providers should consider the following: administering longer-acting treatments for the duration of active insulin or hypoglycemia agent for persistent hypoglycemia and re-evaluating active insulin orders before administering the next dose. , Routine glucose (Glutose) 40% oral geL 15-30 g of glucose, Buccal, EVERY 15 MIN PRN, Starting on Effie 02/07/24 at 2121, Until Sun02/08/24 at 1248, Low blood sugar, For BG 50-70 mg/dL: Oral treatment preferred: If able to drink, give 120 mL juice or regular (not diet) soda OR if NPO, give 15 gram glucose 40% oral gel massaged into buccal mucosa OR if unconscious or uncooperative, give 25 gram (250 mL) dextrose 10% IV over 15 minutes per protocol OR, if no IV access, 1 mg glucagon IM. For BG less than 50 mg/dL: Oral treatment preferred: If able to drink, give 240 mL juice or regular (not diet) soda OR if NPO, give 30 gram glucose 40% oral gel massaged in buccal mucosa OR if unconscious or uncooperative, give 25 gram (250 mL) dextrose 10% IV over 15 minutes per protocol OR, if no IV access, 1 mg glucagon IM. Recheck BG in 15 minutes. May repeat juice/soda, gel, dextrose or glucagon once per episode. Notify provider if hypoglycemia does not resolve after two treatments. Providers should consider the following: administering longer-acting treatments for the duration of active insulin or hypoglycemia agent for persistent hypoglycemia and re-evaluating active insulin orders before administering the next dose. 1 tube of Glutose-15 contains 15 grams of glucose (net weight of tube = 37.5 grams.), Routine heparin (porcine) (5,000 units/1 mL) subcutaneous injection 5,000 Units 5,000 Units, Subcutaneous, ONCE, 1 dose, On Effie 02/07/24 at 1430, Day of Surgery (Day of Procedure), Routine Given 02/07/2024 2:51 PM EDT 5,000 Units insulin lispro (HumaLOG;Admelog) (100 unit/mL) subcutaneous injection vial 1-4 Units 1-4 Units, Subcutaneous, 3 TIMES DAILY BEFORE MEALS, First dose (after last modification) on Effie 02/07/24 at 2145, Until Discontinued, CORRECTION BOLUS [1-4 Units] Sensitive Sliding Scale (BG in mg/dL): Correction factor 40 (1 unit of insulin is expected to drop the glucose 40 mg/dL) ?? BG 160 - 200 Give 1 unit BG 201 - 240 Give 2 units BG 241 - 280 Give 3 units and recheck BG in 2 hours. BG greater than 280, give 4 units and recheck BG in 2 hours. - If recheck BG is LESS than 280, give no insulin and resume schedule - If recheck BG is GREATER than or EQUAL to 280, give 4 units and repeat BG in 2 hours & call for new insulin orders. DO NOT hold if NPO, unless specifically told to do so. ?? Per Inpatient Subcutaneous Insulin Policy, recheck a BG of greater than 240 mg/dL in 2 hours., Routine Given 02/08/2024 9:52 AM EDT 3 Units Given 02/08/2024 7:30 AM EDT 3 Units Given 02/07/2024 10:27 PM EDT 1 Units lactated ringers infusion 1,000 mL, at 100 mL/hr, Intravenous, CONTINUOUS, Starting on Effie 02/07/24 at 1515, Until Effie 02/07/24 at 2004, Day of Surgery (Day of Procedure) New Bag 02/07/2024 4:54 PM EDT New Bag 02/07/2024 4:32 PM EDT New Bag 02/07/2024 3:02 PM EDT 1,000 mLs 100 mL/hr lactated ringers infusion 1,000 mL, at 100 mL/hr, Intravenous, CONTINUOUS, Starting on Effie 02/07/24 at 2215, Until Sun02/08/24 at 0814 New Bag 02/07/2024 10:28 PM EDT 1,000 mLs 100 mL/hr ondansetron (pf) (Zofran) (2 mg/mL) injection 4 mg 4 mg, Intravenous, EVERY 8 HOURS PRN, Starting on Effie 02/07/24 at 2149, Until Sun02/08/24 at 1248, Nausea, 4 mg,Oral,EVERY 8 HOURS PRN, Nausea,Vomiting If multiple antiemetics are ordered, use ondansetron first. May repeat times one in 30 minutes if ineffective. ondansetron ODT (Zofran-ODT) disintegrating tablet 4 mg 4 mg, Oral, EVERY 8 HOURS PRN, Starting on Effie 02/07/24 at 2149, Until Sun02/08/24 at 1248, Nausea, If multiple antiemetics are ordered, use ondansetron first. PO Preferred. If patient unable to take PO, may give IV if ordered. May repeat times one in 45 minutes if ineffective. , Routine oxyCODONE (Roxicodone) tablet 5-10 mg 5-10 mg, Oral, EVERY 4 HOURS PRN, Starting on Effie 02/07/24 at 2149, Until Sun02/08/24 at 1248, Pain, extreme breakthrough, 5mg to start, can repeat 5mg in 30-60min if needed, Routine Given 02/07/2024 10:31 PM EDT 5 mg phenazopyridine (Pyridium) tablet 200 mg 200 mg, Oral, ONCE, 1 dose, On Effie 02/07/24 at 1430, Day of Surgery (Day of Procedure), Routine Given 02/07/2024 2:47 PM EDT 200 mg senna-docusate (Pericolace) 8.6-50 mg per tablet 2 tablet 2 tablet, Oral, 2 TIMES DAILY, First dose on Effie 02/07/24 at 2215, Until Discontinued, Routine Given 02/07/2024 10:28 PM EDT 2 tablets sodium chloride 0.9 % (flush) (BD PosiFlush Normal Saline 0.9) flush 5 mL 5 mL, Intravenous, 2 TIMES DAILY, First dose on Effie 02/07/24 at 2215, Until Discontinued, Routine Given 02/08/2024 8:47 AM EDT 5 mLs Given 02/07/2024 10:15 PM EDT 5 mLs documented in this encounter Active and Recently Administered Medications Times are shown in EDT. Scheduled Medication Order 02/06/2024 02/07/2024 02/08/2024 acetaminophen (Tylenol) tablet 650 mg 650 mg, Oral, EVERY 6 HOURS SCHEDULED, First dose on Sun02/08/24 at 0000, Until Discontinued, - Maximum dose of acetaminophen is 4,000 mg from all sources in 24 hours. - Unless otherwise specified, when ordered PRN for pain, acetaminophen should be given first if other PRN pain medications are ordered., Routine 0000 (Not Given - Provider: Roseann Baker RN - Reason: See comment - Comment: pt asleep, just received pain meds)0721 (Given - Provider: Joo Epperson RN) acetaminophen (Tylenol) tablet 975 mg (COMPLETED) 975 mg, Oral, ONCE, 1 dose, On Effie 02/07/24 at 1515, - Maximum dose of acetaminophen is 4,000 mg from all sources in 24 hours. - Unless otherwise specified, when ordered PRN for pain, acetaminophen should be given first if other PRN pain medications are ordered., Day of Surgery (Day of Procedure), Routine 1502 (Given - Provider: Tobias Bolivar RN) budesonide-formoteroL (Symbicort) 80-4.5 mcg/actuation inhaler 2 .Inhalation 2 .Inhalation , Inhalation, 2 TIMES DAILY, First dose on Effie 02/07/24 at 2100, Until Discontinued, Prime inhaler before first use or if has not been used for more than 5 days. Shake well prior to each use. Rinse mouth with water (spit out without swallowing) after each use., Routine 2100 (Not Given - Provider: Roseann Baker RN - Reason: Patient/family refused) 0900 (Not Given - Provider: Joo Epperson RN - Reason: Medication not available) ceFAZolin (Ancef) 1 g vial attached to sodium chloride 0.9% 50 mL Mini-Bag Plus 1 g, Intravenous, ONCE, 1 dose, On Effie 02/07/24 at 1500, Administer over 30 Minutes, Indication for (Active or Suspected): Prophylaxis 1705 (Canceled Entry - Provider: Stanley Regalado CRNA) ceFAZolin (Ancef) 2 g vial attach to sodium chloride 0.9% 100 mL Mini-Bag Plus (COMPLETED)(Linked Group 1) 2 g, Intravenous, ONCE, 1 dose, On Effie 02/07/24 at 1430, Administer over 30 Minutes, Patent Attorney to OR Infuse over 30 minutes., Day of Surgery (Day of Procedure), Indication for (Active or Suspected): Prophylaxis 1705 (New Bag - Provider: Stanley Regalado CRNA) heparin (porcine) (5,000 units/1 mL) subcutaneous injection 5,000 Units (COMPLETED) 5,000 Units, Subcutaneous, ONCE, 1 dose, On Effie 02/07/24 at 1430, Day of Surgery (Day of Procedure), Routine 1451 (Given - Provider: Tobias Bolivar RN) insulin lispro (HumaLOG;Admelog) (100 unit/mL) subcutaneous injection vial 1-4 Units(Linked Group 2) 1-4 Units, Subcutaneous, 3 TIMES DAILY BEFORE MEALS, First dose (after last modification) on Effie 02/07/24 at 2145, Until Discontinued, CORRECTION BOLUS [1-4 Units] Sensitive Sliding Scale (BG in mg/dL): Correction factor 40 (1 unit of insulin is expected to drop the glucose 40 mg/dL) ?? BG 160 - 200 Give 1 unit BG 201 - 240 Give 2 units BG 241 - 280 Give 3 units and recheck BG in 2 hours. BG greater than 280, give 4 units and recheck BG in 2 hours. - If recheck BG is LESS than 280, give no insulin and resume schedule - If recheck BG is GREATER than or EQUAL to 280, give 4 units and repeat BG in 2 hours & call for new insulin orders. DO NOT hold if NPO, unless specifically told to do so. ?? Per Inpatient Subcutaneous Insulin Policy, recheck a BG of greater than 240 mg/dL in 2 hours., Routine 2227 (Given - Provider: Roseann Baker RN) 0730 (Given - Provider: Joo Epperson RN)0952 (Given - Provider: Joo Epperson RN) metroNIDAZOLE (Flagyl) 500 mg in sodium chloride 0.9% 100 mL infusion (COMPLETED)(Linked Group 1) 500 mg, Intravenous, ONCE, 1 dose, On Effie 02/07/24 at 1430, Administer over 30 Minutes, Patent Attorney to OR Infuse over 30 minutes., Day of Surgery (Day of Procedure), Indication for (Active or Suspected): Prophylaxis 1705 (Given - Provider: Stanley Regalado CRNA) phenazopyridine (Pyridium) tablet 200 mg (COMPLETED) 200 mg, Oral, ONCE, 1 dose, On Effie 02/07/24 at 1430, Day of Surgery (Day of Procedure), Routine 1447 (Given - Provider: Tobias Bolivar RN) senna-docusate (Pericolace) 8.6-50 mg per tablet 2 tablet 2 tablet, Oral, 2 TIMES DAILY, First dose on Effie 02/07/24 at 2215, Until Discontinued, Routine 2228 (Given - Provider: Roseann Baker RN) 0900 (Not Given - Provider: Joo Epperson RN - Reason: Patient/family refused) sodium chloride 0.9 % (flush) (BD PosiFlush Normal Saline 0.9) flush 5 mL 5 mL, Intravenous, 2 TIMES DAILY, First dose on Effie 02/07/24 at 2215, Until Discontinued, Routine 2215 (Given - Provider: Roseann Baker RN) 0847 (Given - Provider: Joo Epperson RN) torsemide (Demadex) tablet 20 mg 20 mg, Oral, DAILY, First dose on Sun02/08/24 at 0900, Until Discontinued, Hold if sbp<100, Routine 0900 (Not Given - Provider: Joo Epperson RN - Reason: Patient/family refused) Continuous Medication Order 02/06/2024 02/07/2024 02/08/2024 lactated ringers infusion (CANCELED) 1,000 mL, at 100 mL/hr, Intravenous, CONTINUOUS, Starting on Effie 02/07/24 at 1515, Until Effie 02/07/24 at 2004, Day of Surgery (Day of Procedure) 1502 (New Bag - Provider: Celeste Bolivar RN)1631 (Paused - Provider: Stanley Regalado CRNA - Comment: Switch to gravity)1632 (New Bag - Provider: Stanley Regalado CRNA)1654 (New Bag - Provider: Stanley Regalado CRNA)1725 (Anesthesia Volume Adjustment - Provider: Stanley Regalado CRNA)1839 (Anesthesia Volume Adjustment - Provider: Saurabh Temple CRNA) lactated ringers infusion 1,000 mL, at 100 mL/hr, Intravenous, CONTINUOUS, Starting on Effie 02/07/24 at 2215, Until Sun02/08/24 at 0814 2228 (New Bag - Provider: Roseann Baker RN) PRN Medication Order 02/06/2024 02/07/2024 02/08/2024 albuteroL (Proventil, Ventolin) (2.5 mg/3 mL) (0.083 %) nebulizer solution 2.5 mg 2.5 mg, Nebulization, EVERY 4 HOURS PRN, Starting on Effie 02/07/24 at 2004, Until Sun02/08/24 at 1248, Wheezing, Shortness of Breath, Routine 2054 (Given - Provider: Luiz Mcclain RN) 0847 (Given - Provider: Joo Epperson RN) dextrose 10% infusion(Linked Group 3) 250 mL, at 1,000 mL/hr, Intravenous, EVERY 15 MIN PRN, Starting on Effie 02/07/24 at 2121, Until Sun02/08/24 at 1248, For BG 50-70 mg/dL: Oral treatment preferred: If able to drink, give 120 mL juice or regular (not diet) soda OR if NPO, give 15 gram glucose 40% oral gel massaged into buccal mucosa OR if unconscious or uncooperative, give 25 gram (250 mL) dextrose 10% IV over 15 minutes per protocol OR, if no IV access, 1 mg glucagon IM. For BG less than 50 mg/dL: Oral treatment preferred: If able to drink, give 240 mL juice or regular (not diet) soda OR if NPO, give 30 gram glucose 40% oral gel massaged in buccal mucosa OR if unconscious or uncooperative, give 25 gram (250 mL) dextrose 10% IV over 15 minutes per protocol OR, if no IV access, 1 mg glucagon IM. Recheck BG in 15 minutes. May repeat juice/soda, gel, dextrose or glucagon once per episode. Notify provider if hypoglycemia does not resolve after two treatments. Providers should consider the following: administering longer-acting treatments for the duration of active insulin or hypoglycemia agent for persistent hypoglycemia and re-evaluating active insulin orders before administering the next dose. glucagon (Glucagen) (1 mg/mL) injection solution 1 mg(Linked Group 3) 1 mg, Intramuscular, EVERY 15 MIN PRN, Starting on Effie 02/07/24 at 2121, Until Sun02/08/24 at 1248, Low blood sugar, For BG 50-70 mg/dL: Oral treatment preferred: If able to drink, give 120 mL juice or regular (not diet) soda OR if NPO, give 15 gram glucose 40% oral gel massaged into buccal mucosa OR if unconscious or uncooperative, give 25 gram (250 mL) dextrose 10% IV over 15 minutes per protocol OR, if no IV access, 1 mg glucagon IM. For BG less than 50 mg/dL: Oral treatment preferred: If able to drink, give 240 mL juice or regular (not diet) soda OR if NPO, give 30 gram glucose 40% oral gel massaged in buccal mucosa OR if unconscious or uncooperative, give 25 gram (250 mL) dextrose 10% IV over 15 minutes per protocol OR, if no IV access, 1 mg glucagon IM. Recheck BG in 15 minutes. May repeat juice/soda, gel, dextrose or glucagon once per episode. Notify provider if hypoglycemia does not resolve after two treatments. Providers should consider the following: administering longer-acting treatments for the duration of active insulin or hypoglycemia agent for persistent hypoglycemia and re-evaluating active insulin orders before administering the next dose. , Routine glucose (Glutose) 40% oral geL(Linked Group 3) 15-30 g of glucose, Buccal, EVERY 15 MIN PRN, Starting on Effie 02/07/24 at 2121, Until Sun02/08/24 at 1248, Low blood sugar, For BG 50-70 mg/dL: Oral treatment preferred: If able to drink, give 120 mL juice or regular (not diet) soda OR if NPO, give 15 gram glucose 40% oral gel massaged into buccal mucosa OR if unconscious or uncooperative, give 25 gram (250 mL) dextrose 10% IV over 15 minutes per protocol OR, if no IV access, 1 mg glucagon IM. For BG less than 50 mg/dL: Oral treatment preferred: If able to drink, give 240 mL juice or regular (not diet) soda OR if NPO, give 30 gram glucose 40% oral gel massaged in buccal mucosa OR if unconscious or uncooperative, give 25 gram (250 mL) dextrose 10% IV over 15 minutes per protocol OR, if no IV access, 1 mg glucagon IM. Recheck BG in 15 minutes. May repeat juice/soda, gel, dextrose or glucagon once per episode. Notify provider if hypoglycemia does not resolve after two treatments. Providers should consider the following: administering longer-acting treatments for the duration of active insulin or hypoglycemia agent for persistent hypoglycemia and re-evaluating active insulin orders before administering the next dose. 1 tube of Glutose-15 contains 15 grams of glucose (net weight of tube = 37.5 grams.), Routine HYDROmorphone (Dilaudid) (0.2 mg/1 mL) injection syringe 0.2 mg 0.2 mg, Intravenous, EVERY 4 HOURS PRN, 2 doses, Starting on Effie 02/07/24 at 2121, Until Sun02/08/24 at 1248, Pain, extreme breakthrough or unable to take po, Routine lidocaine (Xylocaine) 1% (10 mg/mL) injection 3 mg 3 mg (0.3 mL), Subcutaneous, ONCE PRN, 1 dose, Starting on Effie 02/07/24 at 2149, Until Sun02/08/24 at 1248, for discomfort with PIV insertion, Routine lidocaine-EPINEPHrine (1% - 1:100,000) injection (CANCELED) PRN, Starting on Effie 02/07/24 at 1807, Until Effie 02/07/24 at 2141, Intra-Operative (Intra-Procedure), Routine 180 (Given - Provider: Jordyn Francisco MD) melatonin tablet 3 mg 3 mg, Oral, NIGHTLY PRN, Starting on Effie 02/07/24 at 2149, Until Sun02/08/24 at 1248, Sleep, Sleep, Routine ondansetron (pf) (Zofran) (2 mg/mL) injection 4 mg(Linked Group 4) 4 mg, Intravenous, EVERY 8 HOURS PRN, Starting on Effie 02/07/24 at 2149, Until Sun02/08/24 at 1248, Nausea, 4 mg,Oral,EVERY 8 HOURS PRN, Nausea,Vomiting If multiple antiemetics are ordered, use ondansetron first. May repeat times one in 30 minutes if ineffective. ondansetron ODT (Zofran-ODT) disintegrating tablet 4 mg(Linked Group 4) 4 mg, Oral, EVERY 8 HOURS PRN, Starting on Effie 02/07/24 at 2149, Until Sun02/08/24 at 1248, Nausea, If multiple antiemetics are ordered, use ondansetron first. PO Preferred. If patient unable to take PO, may give IV if ordered. May repeat times one in 45 minutes if ineffective. , Routine oxyCODONE (Roxicodone) tablet 5-10 mg 5-10 mg, Oral, EVERY 4 HOURS PRN, Starting on Effie 02/07/24 at 2149, Until Sun02/08/24 at 1248, Pain, extreme breakthrough, 5mg to start, can repeat 5mg in 30-60min if needed, Routine 2231 (Given - Provider: Roseann Baker RN) sodium chloride 0.9 % (flush) (BD PosiFlush Normal Saline 0.9) flush 5-20 mL 5-20 mL, Intravenous, EVERY 1 MIN PRN, Starting on Effie 02/07/24 at 2149, Until Sun02/08/24 at 1248, flush, Flush pertains to all indwelling lines. Flush per protocol found in the job aid using the link provided on this medication record., Routine Linked Groups Order Group 1: ceFAZolin (Ancef) 2 g vial attach to sodium chloride 0.9% 100 mL Mini-Bag Plus (COMPLETED)Jump to med 2 g, Intravenous, ONCE, 1 dose, On Effie 02/07/24 at 1430, Administer over 30 Minutes, Patent Attorney to OR Infuse over 30 minutes., Day of Surgery (Day of Procedure), Indication for (Active or Suspected): Prophylaxis And metroNIDAZOLE (Flagyl) 500 mg in sodium chloride 0.9% 100 mL infusion (COMPLETED)Jump to med 500 mg, Intravenous, ONCE, 1 dose, On Effie 24 at 1430, Administer over 30 Minutes, Patent Attorney to OR Infuse over 30 minutes., Day of Surgery (Day of Procedure), Indication for (Active or Suspected): Prophylaxis Group 2: POCT Fingerstick Glucose (CANCELED) Routine, 4 TIMES DAILY BEFORE MEALS & AT BEDTIME, First occurrence on Sun02/07/24 at 2200, Until Specified, Consider choosing FOUR TIMES A DAY BEFORE MEALS AND AT BEDTIME as frequency for: Patients who have good hypoglycemia awareness: -Patients who are eating meals during the day and sleeping at night -Patients who are otherwise stable And insulin lispro (HumaLOG;Admelog) (100 unit/mL) subcutaneous injection vial 1-4 UnitsJump to med 1-4 Units, Subcutaneous, 3 TIMES DAILY BEFORE MEALS, First dose (after last modification) on Sun02/07/24 at 2145, Until Discontinued, CORRECTION BOLUS [1-4 Units] Sensitive Sliding Scale (BG in mg/dL): Correction factor 40 (1 unit of insulin is expected to drop the glucose 40 mg/dL) ?? BG 160 - 200 Give 1 unit BG 201 - 240 Give 2 units BG 241 - 280 Give 3 units and recheck BG in 2 hours. BG greater than 280, give 4 units and recheck BG in 2 hours. - If recheck BG is LESS than 280, give no insulin and resume schedule - If recheck BG is GREATER than or EQUAL to 280, give 4 units and repeat BG in 2 hours & call for new insulin orders. DO NOT hold if NPO, unless specifically told to do so. ?? Per Inpatient Subcutaneous Insulin Policy, recheck a BG of greater than 240 mg/dL in 2 hours., Routine Group 3: glucose (Glutose) 40% oral geLJump to med 15-30 g of glucose, Buccal, EVERY 15 MIN PRN, Starting on Sun02/07/24 at 2121, Until Sun02/08/24 at 1248, Low blood sugar, For BG 50-70 mg/dL: Oral treatment preferred: If able to drink, give 120 mL juice or regular (not diet) soda OR if NPO, give 15 gram glucose 40% oral gel massaged into buccal mucosa OR if unconscious or uncooperative, give 25 gram (250 mL) dextrose 10% IV over 15 minutes per protocol OR, if no IV access, 1 mg glucagon IM. For BG less than 50 mg/dL: Oral treatment preferred: If able to drink, give 240 mL juice or regular (not diet) soda OR if NPO, give 30 gram glucose 40% oral gel massaged in buccal mucosa OR if unconscious or uncooperative, give 25 gram (250 mL) dextrose 10% IV over 15 minutes per protocol OR, if no IV access, 1 mg glucagon IM. Recheck BG in 15 minutes. May repeat juice/soda, gel, dextrose or glucagon once per episode. Notify provider if hypoglycemia does not resolve after two treatments. Providers should consider the following: administering longer-acting treatments for the duration of active insulin or hypoglycemia agent for persistent hypoglycemia and re-evaluating active insulin orders before administering the next dose. 1 tube of Glutose-15 contains 15 grams of glucose (net weight of tube = 37.5 grams.), Routine Or dextrose 10% infusionJump to med 250 mL, at 1,000 mL/hr, Intravenous, EVERY 15 MIN PRN, Starting on Sun02/07/24 at 2121, Until Sun02/08/24 at 1248, For BG 50-70 mg/dL: Oral treatment preferred: If able to drink, give 120 mL juice or regular (not diet) soda OR if NPO, give 15 gram glucose 40% oral gel massaged into buccal mucosa OR if unconscious or uncooperative, give 25 gram (250 mL) dextrose 10% IV over 15 minutes per protocol OR, if no IV access, 1 mg glucagon IM. For BG less than 50 mg/dL: Oral treatment preferred: If able to drink, give 240 mL juice or regular (not diet) soda OR if NPO, give 30 gram glucose 40% oral gel massaged in buccal mucosa OR if unconscious or uncooperative, give 25 gram (250 mL) dextrose 10% IV over 15 minutes per protocol OR, if no IV access, 1 mg glucagon IM. Recheck BG in 15 minutes. May repeat juice/soda, gel, dextrose or glucagon once per episode. Notify provider if hypoglycemia does not resolve after two treatments. Providers should consider the following: administering longer-acting treatments for the duration of active insulin or hypoglycemia agent for persistent hypoglycemia and re-evaluating active insulin orders before administering the next dose. Or glucagon (Glucagen) (1 mg/mL) injection solution 1 mgJump to med 1 mg, Intramuscular, EVERY 15 MIN PRN, Starting on Effie 02/07/24 at 2121, Until Sun02/08/24 at 1248, Low blood sugar, For BG 50-70 mg/dL: Oral treatment preferred: If able to drink, give 120 mL juice or regular (not diet) soda OR if NPO, give 15 gram glucose 40% oral gel massaged into buccal mucosa OR if unconscious or uncooperative, give 25 gram (250 mL) dextrose 10% IV over 15 minutes per protocol OR, if no IV access, 1 mg glucagon IM. For BG less than 50 mg/dL: Oral treatment preferred: If able to drink, give 240 mL juice or regular (not diet) soda OR if NPO, give 30 gram glucose 40% oral gel massaged in buccal mucosa OR if unconscious or uncooperative, give 25 gram (250 mL) dextrose 10% IV over 15 minutes per protocol OR, if no IV access, 1 mg glucagon IM. Recheck BG in 15 minutes. May repeat juice/soda, gel, dextrose or glucagon once per episode. Notify provider if hypoglycemia does not resolve after two treatments. Providers should consider the following: administering longer-acting treatments for the duration of active insulin or hypoglycemia agent for persistent hypoglycemia and re-evaluating active insulin orders before administering the next dose. , Routine Group 4: ondansetron ODT (Zofran-ODT) disintegrating tablet 4 mgJump to med 4 mg, Oral, EVERY 8 HOURS PRN, Starting on Effie 02/07/24 at 2149, Until Sun02/08/24 at 1248, Nausea, If multiple antiemetics are ordered, use ondansetron first. PO Preferred. If patient unable to take PO, may give IV if ordered. May repeat times one in 45 minutes if ineffective. , Routine Or ondansetron (pf) (Zofran) (2 mg/mL) injection 4 mgJump to med 4 mg, Intravenous, EVERY 8 HOURS PRN, Starting on Effie 02/07/24 at 2149, Until Sun02/08/24 at 1248, Nausea, 4 mg,Oral,EVERY 8 HOURS PRN, Nausea,Vomiting If multiple antiemetics are ordered, use ondansetron first. May repeat times one in 30 minutes if ineffective. documented in this encounter Care Teams Educational Diagnostician Relationship Specialty Start Date End Date Dandy Driscoll APRN [address] [place] [address] [place] [phone] PCP - General Family Medicine 01/20/16 documented as of this encounter
--- OUTSIDE RECORDS SUMMARY | 2024-02-27 19:33 | XMS_ITS | Encounter Summary ---
[place] [address] Care Team Providers Care Product Safety Manager Name Role Phone Dandy Driscoll APRN Primary Care Provider [phone] Encounter Details Date Type Department Care Team (Late st Contact Info) Description 01/22/2024 Telephone [place] [phone] Janette Michael, RN Social History Tobacco Use Types Packs/Day Years Used Date Smoking Tobacco: Former Cigarettes Q uit: 10/1978 Smokeless Tobacco: Never Alcohol Use Standard Drinks/Week Comments No 0 (1 standard drink = 0.6 oz pur e alcohol) [facility] Utilities Answer Date Recorded In the [...] Telephone Encounter - Janette Michael RN - 01/22/2024 1:13 PM EDT LVM with callback information * Telephone Encounter - Janette Michael RN - 01/22/2024 1:12 PM EDT ----- Message from Janette Orourke RN sent at 01/21/2024 3:53 PM EDT ----- 311: She would like to Dr. Quevedo's nurse documented in this encounter Plan of Treatment Upcoming Encounters Date Type Department Care Team (Late st Contact Info) Description 03/04/2024 12:00 PM EST Office Visit [place] [address] Jordyn Francisco MD [facility] OBSTETRICS [place] [address] documented as of this encounter Visit Diagnoses Not on filedocumented in this encounter Care Teams Product Safety Manager Relationship Specialty Start Date End Date Driscoll, Dandy, CAMPAIGN COORDINATOR [address] [place] [address] [place] [phone] PCP - General Family Medicine 01/20/16 documented as of this encounter
--- OUTSIDE RECORDS SUMMARY | 2024-02-27 19:33 | XMS_ITS | Encounter Summary ---
Author Organization [facility] Address [facility] [place] [address] Care Team Providers Care Glazing Superintendent Name Role Phone Dandy Driscoll APRN Primary Care Provider [phone] Encounter Details Date Type Department Care Team (Late st Contact Info) Description 10/02/2023 [place] [phone] Provider, Scanning Social History Tobacco Use Types Packs/Day Years Used Date Smoking Tobacco: Former Cigarettes Q uit: 10/1978 Smokeless Tobacco: Never Alcohol Use Standard Drinks/Week Comments No 0 (1 standard drink = 0.6 oz pur e alcohol) [facility] Utilities Answer Date Recorded In [...] PM EST Office Visit Gyne[place] [address] Jordyn Francisco MD [facility] [address] OBSTETRICS [place] [address] documented as of this encounter Procedures Procedure Name Priority Date/Time Associated Diagnosis Comments SURGICAL PATHOLOGY SCAN Routine 10/02/2023 documented in this encounter Results * Scan Doc: Surgical Pathology (10/02/2023) Historical Provider MD TELLES MGR SCAN EX T ORDR/RSLT documented in this encounter Visit Diagnoses Not on filedocumented in this encounter Care Teams Glazing Superintendent Relationship Specialty Start Date End Date Dandy Driscoll APRN [address] [facility] [place] [phone] PCP - General Family Medicine 01/20/16 documented as of this encounter
--- OUTSIDE RECORDS SUMMARY | 2024-02-27 19:33 | XMS_ITS | Encounter Summary ---
Author Organization [facility] [place] [address] Care Team Providers Care Superintendent Landfill Operations Name Role Phone Dandy Driscoll APRN Primary Care Provider [phone] Encounter Details Date Type Department Care Team (Late st Contact Info) Description 01/23/[address] [place] [phone] Kaya Mary Social History Tobacco Use Types Packs/Day Years Used Date Smoking Tobacco: Former Cigarettes Q uit: 10/1978 Smokeless Tobacco: Never Alcohol Use Standard Drinks/Week Comments No 0 (1 standard drink = 0.6 oz pur e alcohol) [facility] Utilities Answer Date Recorded In the [...] PM EST Office Visit [place] [address] Jordyn Francisco MD [facility] OBSTETRICS [place] [address] documented as of this encounter Visit Diagnoses Not on filedocumented in this encounter Care Teams Superintendent Landfill Operations Relationship Specialty Start Date End Date Dandy Driscoll APRN [address] [place] [address] [place] [phone] PCP - General Family Medicine 01/20/16 documented as of this encounter
--- OUTSIDE RECORDS SUMMARY | 2024-02-27 19:33 | XMS_ITS | Encounter Summary ---
Author Organization [facility] [place] [address] Care Team Providers Care Physical Therapy Aide Name Role Phone Dandy Driscoll APRN Primary Care Provider [phone] Encounter Details Date Type Department Care Team (Late st Contact Info) Description 07/24/2023 Orders Only [place] [phone] Marietta Ohara MD [facility] [address] Social History Tobacco Use Types Packs/Day Years Used Date Smoking Tobacco: Former Cigarettes Q uit: 10/1978 Smokeless Tobacco: Never Alcohol Use Standard Drinks/Week Comments No 0 (1 standard drink = 0.6 oz pur e alcohol) [facility] Utilities Answer Date Recorded In the past 12 months has [employer], gas, oil, or water [employer] threatened to shut off services in your [...] in a mcfp (including now)? No 05/20/2023 IPV Inpatient Questions [...] PM EST Office Visit [place] [address] Jordyn Francisco MD [facility] [place] [address] documented as of this encounter Visit Diagnoses Not on filedocumented in this encounter Care Teams Physical Therapy Aide Relationship Specialty Start Date End Date Dandy Driscoll APRN [address] [place] [address] [place] [phone] PCP - General Family Medicine 01/20/16 documented as of this encounter
--- OUTSIDE RECORDS SUMMARY | 2024-02-27 19:33 | XMS_ITS | Encounter Summary ---
Author Organization [facility] Address [facility] [place] [address] Care Team Providers Care Economics Instructor Name Role Phone Dandy Driscoll APRN Primary Care Provider [phone] Encounter Details Date Type Department Care Team (Late st Contact Info) Description 12/17/2023 Notes Only Care Management [facility] [place] [phone] June Allen, PAN PULLER Social History Tobacco Use Types Packs/Day Years Used Date Smoking Tobacco: Former Cigarettes Q uit: 10/1978 Smokeless Tobacco: Never Alcohol Use Standard Drinks/Week Comments No 0 (1 standard drink = 0.6 oz pur e alcohol) [facility] Utilities Answer Date Recorded In the past [...] place to sleep or slept in a longterm (including now)? No 05/20/2023 DH IPV Inpatient [...] Progress Notes * June Allen MSW - 12/17/2023 10:19 AM EDT Gynecologic Cancer Program: Social Work Note I'm able to return Stacy's call and we review that while she is unable to utilize [employer] for prescription megace, her pharmacy ([facility]) can provide her with financial assistance for it instead. She is satisfied with this option. She asks if she should restart the medication and at what dose. We also review that Stacy would like to transfer her care to Dr. Jordyn Francisco. She understands surgery is indicated and hopes to have it scheduled so that she can recover between the time of Feb.07-,when she will have access to someone who can assist her. Stacy's questions are routed to care team for review. Stacy has my contact information and is encouraged to reach out if she hasn't heard from us within a reasonable timeframe. Completed today: Care Coordination June ???Denita?? Tiffany RUBBER CURER Breast and Gynecology Oncology [email or web address] [facility] documented in this encounter Plan of Treatment Upcoming Encounters Date Type Department Care Team (Denisha rosario Contact Info) Description 03/04/2024 12:00 PM EST Office Visit [place] [address] Jordyn Francisco MD [facility] OBSTETRICS [place] [address] documented as of this encounter Visit Diagnoses Not on filedocumented in this encounter Care Teams Economics Instructor Relationship Specialty Start Date End Date Dandy Driscoll APRN [address] [place] [address] [place] [phone] PCP - General Family Medicine 01/20/16 documented as of this encounter
--- OUTSIDE RECORDS SUMMARY | 2024-02-27 19:33 | XMS_ITS | Encounter Summary ---
[place] [address] Care Team Providers Care Health Unit Supervisor Name Role Phone Dandy Driscoll APRN Primary Care Provider [phone] Encounter Details Date Type Department Care Team (Late st Contact Info) Description 12/07/2023 11:59 PM EDT Anesthesia [place] [address] Zenia Rice [place] [address] Anesthesia Record Procedure Summary Procedure Name Responsible Anesthesiologist Anesthesia Start Time Anesthesia Stop Time AMB REFERRAL TO ANETHESIA PRE-OPERATIVE EVALUATION Events No events on file. Meds * Agents No agents on file. * Blood No blood administrations on file. Lines, Drains, and Airways No LDAs on file. documented in this encounter Social History Tobacco Use Types Packs/Day Years Used Date Smoking Tobacco: Former Cigarettes Q uit: 10/1978 Smokeless Tobacco: Never Alcohol Use Standard Drinks/Week Comments No 0 (1 standard drink = 0.6 oz pur e alcohol) [facility] Utilities Answer Date Recorded In the past 12 months has [employer], gas, oil, or water company threatened to [...] place to sleep or slept in a half-way (including now)? No 05/20/2023 DH IPV Inpatient [...] of this encounter OR Notes * Anesthesia Preprocedure Evaluation - Zenia Rice APRN - 12/14/2023 11:15 AM EDT Pre-Anesthesia Evaluation for: Stacy Knight a 73 y.o. female. Patient Active Problem List Diagnosis Date Noted EIN (endometrial intraepithelial neoplasia) 06/15/2023 Postoperative anemia due to acute blood loss 01/25/2021 S/P Right ENA, 01/19/21 (Dr Dumont) 01/19/2021 Morbid obesity with BMI of 40.0-44.9, adult 02/14/2018 02/13/2018 S/P left total hip arthroplasty (Dr. Dumont) 02/14/2018 Primary osteoarthritis of left hip 08/09/2017 Pain in left hip 07/13/2016 History of total right knee replacement, R TKA performed in 200101/20/2016 Tibial component revision L knee (11/11/2012, Bhavin) 11/07/2010 Impaired renal function 09/13/2010 Past Medical History: Diagnosis Date Asthma Bowel disease ibs Chronic pain right hip and knee pain COPD (chronic obstructive pulmonary disease) Gastroesophageal reflux rare use of TUMS High blood pressure controlled with medication Impaired renal function 09/13/2010 Mental health problem depression Possible T2DM History History of Jardiance use, on Ozempic for weight loss now Postoperative anemia due to acute blood loss 01/25/2021 Transfusion history 1984 Vertigo fell out of chair in past week or so Past Surgical History: Procedure Laterality Date JOINT REPLACEMENT PRG RADEX HIP UNILATERAL WITH PELVIS MINIMUM 4 VIEWS Left 02/13/2018 HIP INTRAOP RADIOLOGIC EXAMINATION, UNILATERAL, W PELVIS; 4+ VIEWS (WRVU 0.27) performed by Patrick Dumont MD at [facility] MAIN OR PRG RADEX HIP UNILATERAL WITH PELVIS MINIMUM 4 VIEWS Right 01/19/2021 HIP INTRAOP RADIOLOGIC EXAMINATION, UNILATERAL, W PELVIS; 4+ VIEWS (WRVU 0.27) performed by Patrick Dumont MD at [facility] MAIN OR PRO ARTHROPLASTY ACETABULAR/PROX FEM PROSTC AGRFT/ALGRFT Left 02/13/2018 @TOTAL HIP ARTHROPLASTY, ANTERIOR APPROACH (WRVU 20.72) performed by Patrick Dumont MD at [facility] MAIN OR PRO ARTHROPLASTY ACETABULAR/PROX FEM PROSTC AGRFT/ALGRFT Right 01/19/2021 TOTAL HIP ARTHROPLASTY, ANTERIOR APPROACH (WRVU 20.72) performed by Patrick Dumont MD at [facility] MILADY PRO REVISE KNEE JOINT REPLACE, ALL PARTS 11/11/2012 @TOTAL KNEE REVISION ARTHROPLASTY, COMPLETE performed by Carlos Delcid MD at [facility] MAIN OR Social History Tobacco Use Smoking status: Former Current packs/day: 0.00 Types: Cigarettes Quit date: 10/1978 Years since quittin.2 Smokeless tobacco: Never Substance Use Topics Alcohol use: No Social History Substance and Sexual Activity Drug Use No Allergies Allergen Reactions Adhesive Tape Rips the [...] or any 3rd or 4th+ generation cephalosporin. [facility] LION TRAINER to place Allergy referral for formal penicillin allergy evaluation. Patient open to a phone consult from all.Clinic Propoxyphene Hcl Itching Medications: MAR and/or home medications have been reviewed. Physical Exam: Preprocedure Vitals Current as of 12/14/23 1115 No BP, pulse, respiration, SpO2, or temperature recorded. Height: Weight: BMI: IBW: Anesthesia Physical Exam Last Filed Perioperative Cognitive Screening Value Time User AD8 Total Score: 2 05/15/2023 1:00 PM Zenia Rice APRN AD8 Informant: Patient 05/15/2023 1:00 PM Zenia Rice APRN 4AT TOTAL Score: 0 01/26/2021 7:47 AM Janette Schaefer RN CFS Frailty Score: 3 05/08/2023 3:00 PM Gerardo Ken RN Anesthesia Plan Anesthesia Screening Note: Date and Time of Entry: 12/14/2023 11:15 AM Entered By: Zneia Rice APRN Reason for Evaluation: Surgeon Request [...] dizziness or syncope. She is followed by steel unloader Dr. Hoang at [facility], last seen in July 2023 with plan for repeat echocardiogram in January 2024 to follow up on . TTE 04/24/22 [facility] (under media) EF 65-70% with no WMAs. Mildly dilated RV with preserved function. LA mildly dilated. Mild AD8:2 Social History: Tobacco Use: Smoked for 6 months in her 20s Alcohol: Denies SURGICAL HISTORY: salpingectomy, 3 knee surgeries, 2 hip surgeries ANESTHETIC HISTORY: Denies any previous complications related to anesthesia [place] [facility] [place] Mac3, gr 1 view, easy [...] sometime in February. I reached out to [facility] cardiology requesting they schedule her echocardiogram prior [...] the patient's satisfaction. Zenia Rice APRN 12/14/23 (Update 01/17/24): Patient completed echocardiogram 01/11/24. This showed possible severe aortic stenosis. Contacted [facility] Cardiology, Dr. Hoang is ordering a cardiac CT for further evaluation. Will relay this information to surgeon. TTE 01/11/24 Interpretation Summary Left ventricle is of normal [...] severity of (eg Cardiac CT vs SATHYA). (Update 01/29/24): Patient had CT Angiogram 01/24/24 which showed coronary calcium score of 0, consistent with no detectable calcified atherosclerotic plaque burden. Spoke with patient's steel unloader, Dr. Hoang at [facility] who is reassured that CTA did not show any significant coronary artery stenosis. He feels based on TTE, aortic stenosis likely more consistent with moderate than severe . Without symptoms that can be attributed to aortic stenosis, he recommends continuing to follow with serial echocardiograms. documented in this encounter Plan of Treatment Upcoming Encounters Date Type Department Care Team (Late st Contact Info) Description 03/04/2024 12:00 PM EST Office Visit [place] [address] Jordyn Francisco MD [facility] OBSTETRICS [place] [address] documented as of this encounter Visit Diagnoses Not on filedocumented in this encounter Care Teams Health Unit Supervisor Relationship Specialty Start Date End Date Dandy Driscoll APRN [address] [place] [address] [place] [phone] PCP - General Family Medicine 01/20/16 documented as of this encounter
--- OUTSIDE RECORDS SUMMARY | 2024-02-27 19:33 | XMS_ITS | Encounter Summary ---
[place] [address] Care Team Providers Care Superintendent Plant Protection Name Role Phone Dandy Driscoll APRN Primary Care Provider [phone] Encounter Details Date Type Department Care Team (Late st Contact Info) Description 12/25/2023 Telephone [place] [phone] Janette Michael, RN Social History Tobacco Use Types Packs/Day Years Used Date Smoking Tobacco: Former Cigarettes Q uit: 10/1978 Smokeless Tobacco: Never Alcohol Use Standard Drinks/Week Comments No 0 (1 standard drink = 0.6 oz pur e alcohol) [facility] Utilities Answer Date Recorded In the [...] place to sleep or slept in a residential (including now)? No 05/20/2023 IPV Inpatient Questions [...] Telephone Encounter - Janette Michael RN - 12/25/2023 11:35 AM EDT Patient is concerned that she has an appointment with Dr. Francisco on 02/04 and surgery scheduled on 02/06. She would like an earlier appointment so she has more time between. Message to be sent to secretaries to see if an earlier visit can be scheduled. * Telephone Encounter - Janette Michael RN - 12/25/2023 11:35 AM EDT ----- Message from Janette Orourke RN sent at 12/24/2023 2:28 PM EDT ----- 227: Returning a call documented in this encounter Plan of Treatment Upcoming Encounters Date Type Department Care Team (Late st Contact Info) Description 03/04/2024 12:00 PM EST Office Visit [place] [address] Jordyn Francisco MD [facility]ST[facility] [address] documented as of this encounter Visit Diagnoses Not on filedocumented in this encounter Care Teams Superintendent Plant Protection Relationship Specialty Start Date End Date Dandy Driscoll APRN [address] [place] [address] [place] [phone] PCP - General Family Medicine 01/20/16 documented as of this encounter
--- OUTSIDE RECORDS SUMMARY | 2024-02-27 19:34 | XMS_ITS | Encounter Summary ---
Author Organization [facility] Address [facility] [place] [address] Care Team Providers Care Emergency Spill Response Technician Name Role Phone Dandy Driscoll APRN Primary Care Provider [phone] Encounter Details Date Type Department Care Team (Latest Contact Info) Description 07/13/2023 10:30 AM EDT TH Visit (TeleHealth) [place] [phone] Marietta Ohara MD [facility] [place] [address] EIN (endometrial intraepithelial neoplasia) Social History Tobacco Use Types Packs/Day Years Used Date Smoking Tobacco: Former Cigarettes Q uit: 10/1978 Smokeless Tobacco: Never Alcohol Use Standard Drinks/Week Comments No 0 (1 standard drink = 0.6 oz pur e alcohol) [facility] Utilities Answer Date Recorded In the past 12 months has th e [employer], gas, oil, or water [employer] threatened to shut off services in your [...] or Doing Things Outside Your Home? no 05/08/2023 Feels Threatened by Someone no 04/11 Feels Unsafe at Home or Work/School no 05/08/2023 Physical Signs of Abuse Present no 05/08/2023 Sex and Gender Information Value Date Recorded Sex Assigned at Not on file Gender Identity Not on file Sexual Orientation Not on file documented as of this encounter Progress Notes * Marietta Ohara MD - 07/13/2023 10:30 AM EDT Spoke with Stacy to discuss the surgical plan. She does have a ride to and from the hospital. She has not yet secured any support for post op care. I encouraged her to reach out to her latter-day group. Plan to proceed with surgery. documented in this encounter Plan of Treatment Upcoming Encounters Date Type Department Care Team (Late st Contact Info) Description 03/04/2024 12:00 PM EST Office Visit [place] [phone] Jordyn Francisco MD [facility] OBSTETRICS [place] [address] documented as of this encounter Visit Diagnoses Diagnosis EIN (endometrial intraepithelial neoplasia) Endometrial intraepithelial neoplasia (EIN) documented in this encounter Care Teams Emergency Spill Response Technician Relationship Specialty Start Date End Date Dandy Driscoll APRN [address] [place] [address] [place] [phone] PCP - General Family Medicine 01/20/16 documented as of this encounter
--- OUTSIDE RECORDS SUMMARY | 2024-02-27 19:34 | XMS_ITS | Encounter Summary ---
Author Organization [facility] [place] [address] Care Team Providers Care Tube Pusher Name Role Phone Dandy Driscoll APRN Primary Care Provider [phone] Reason for Visit * Auth/Cert (Routine) Specialty Diagnoses / Procedures Referred By Contac t Referred To Contact Diagnoses ATYPICAL HYPERPLASIA Procedures PRO LAPAROSCOPY W TOT HYSTERECTUTERUS <=250 GRAM W TUBE/OVARY LAPAROSCOPY,TOTAL HYST, UTERUS<250GM, REM TUBE &/OR OVARY, ROBOTIC ASSIST (WRVU 15) MODIFIER ROBOT,DAVINCI XI Marietta Ohara MD [facility] [place] [address] [facility] Referral ID Status Reason Start Date Expiration Date Visits Re quested Visits Authorized [id number] 1 1 Encounter Details Date Type Department Care Team (Late st Contact Info) Description 07/24/2023 7:30 AM EDT - 07/24/2023 10:47 AM EDT Surgery [place] [address] Marietta Ohara MD [facility] [place] [address] Not Performed ROBOTIC LAPAROSCOPY,TOTAL HYST, UTERUS<250GM, REM TUBE &/OR OVARY (WRVU 15) Social History Tobacco Use Types Packs/Day Years Used Date Smoking Tobacco: Former Cigarettes Q uit: 10/1978 Smokeless Tobacco: Never Alcohol Use Standard Drinks/Week Comments No 0 (1 standard drink = 0.6 oz pur e alcohol) [facility] Utilities Answer Date Recorded In the [...] Sign Reading Time Taken Comments Blood Pressure 174/93 07/24/2023 6:21 AM EDT Pulse 74 07/24/2023 6:21 AM EDT Temperature 36.3 ??C (97.3 ??F) 07/24/2023 6:21 AM ED T Respiratory Rate 22 07/24/2023 6:21 AM EDT Oxygen Saturation 93% 07/24/2023 6:21 AM EDT Inhaled Oxygen Concentration - - Weight 113.2 kg (249 lb 8 oz) 07/24/2023 6:21 AM EDT Height 157.5 cm (5' 2) 07/24/2023 6:21 AM EDT Body Mass Index 45.63 07/24/2023 6:21 AM EDT documented in this encounter Medications at Time of Discharge Medication Sig Dispensed Refills Start Date End Date naproxen-capsicum oleoresin 500 mg- 0.025 % Kit [...] BID, # 28 EA, 4 Refill(s), Pharmacy: [id number], 157, cm, 04/22/22 20:46:00 EST, Height/Length Dosing, 122.47, kg, 04/22/22 20:46:00 EST, Weight Dosing 05/11/2022 02/07/2024 prednisoLONE acetate (PRED MILD) 0.12 % Drops, Suspension 0 Refill(s) 10/18/2022 12/04/2023 mirabegron ER (Myrbetriq) 25 mg ER 24 hr tablet Take 25 mg by mouth. 03/08/2023 024 mirabegron (Myrbetriq) 50 mg ER 24 hr tablet Take 50 mg by mouth. 03/08/2023 12/04/2023 semaglutide (Ozempic) 1 mg/dose (4 mg/3 mL) Pen Injector Inject 1 mg subcutaneously. 02/22/2023 12/04/2023 miconazole (Micotin) 2 % Powder Apply topically 2 times daily. 01/26/2021 12/04/2023 loperamide (IMODIUM A-D) 2 mg Tablet Take 4 mg by mouth 4 times daily as needed for Diarrhea. Maximum 16 mg in 24 hours 12/04/2023 documented as of this encounter H&P Notes * Christine Loza MD - 07/23/2023 11:50 AM EDT Gynecologic Oncology Pre-Operative H&P I have reviewed the pre-procedure H&P completed by Drs. Maria & Lev on 05/08/23,and subsequent documentation. Interval Note: S: Stacy K Eugene reports she is doing ok this morning; has noticed some spotting since last visit with Dr. Ohara, no other changes to her health. Today she reports she has no running water at home; is hopeful that her brother will be helping with this to get it resolved, but does not feel she can be discharged home today or tomorrow as a result. Thinks being discharged to a rehab would be a better option. Reports she has discussed her surgery with people at [facility], and has not found anyone who could reliably check in on her in the post-operative period. Preferred pharmacy is [facility] in [place], [place]. Allergies Allergen Reactions Adhesive Tape Rips the skin off when removing Isopropyl Alcohol Rash Meperidine Hcl Other (See Comments) Very Loopy Penicillins Other (See Comments) SWELLS UP (age 15) [facility] Penicillin Allergy Risk Assessment 11/05/2020: Low risk penicillin allergy. OK to receive full dose of cefazolin, cefuroxime, or any 3rd or 4th+ generation cephalosporin. [facility] Penicillin Allergy Risk Assessment 05/08/2023: Low risk penicillin allergy. OK to receive full dose of cefazolin, cefuroxime, or any 3rd or 4th+ generation cephalosporin. [facility] Clinic HADOOP CONSULTANT to place Allergy referral for formal penicillin allergy evaluation. Patient open to a phone consult from all[facility]Clinic Propoxyphene Hcl Itching Past medical history: - CHF, follows with Dr. 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 Gen: Sitting in bed, appears comfortable CV: Normal rate, regular rhythm, normal S1 and S2, no murmurs / rubs / gallops Resp: Clear to auscultation bilaterally, no wheezes / crackles Ext: Warm, well perfused, non-tender *remainder of exam deferred to the OR No results found for this or any previous visit (from the past 24 hour(s)). A/P: 73 y.o. female presents for planned robotic hysterectomy for EIN. Stacy shares today that unfortunately there is no safe discharge plan in place, with no running water at home, and nobody to check in on her at home. Dr. Thomas Martines shared with patient her concerns that this is not a safe place to recover from surgery, and could put her at high risk of infection or other complications. Recommended proceeding with medical management, PO vs IUD, until a safe dispo plan in the future might make surgery a more reasonable option. Patient is in agreement with this plan. -- Patient ride called by Dr. Ohara -- Bag of groceries given to patient -- Plan progesterone-based PO treatment per Dr. Ohara Seen with Dr. Ohara, attending Gynecologic Oncologist Christine Loza MD, PGY4 07/24/2023 Associated attestation - Marietta Ohara MD - 07/24/2023 9:47 PM EDT Into see Stacy preop. She has no running water at home. She has no plan to have any help at home post op. I discussed with her that I do not think it is safe to do surgery today as she has no runningwater and no resources. She was thinking she could go to rehab post op, but we discussed this is highly unlikely. Plan made for Aygestin 40mg BID with repeat bx in 3 mo. She will reach out if she is in a better place for surgery in terms of support. We did give her some groceries today. documented in this encounter Plan of Treatment Upcoming Encounters Date Type Department Care Team (Late st Contact Info) Description 03/04/2024 12:00 PM EST Office Visit [place] [address] Jordyn Francisco MD [facility] DR OBSTETRICS [place] [address] documented as of this encounter Visit Diagnoses Not on filedocumented in this encounter Administered Medications Inactive Administered Medications - up to 3 most recent administrations Medication Order MAR Action Action Date Dose Rate Site lactated ringers infusion 1,000 mL, at 100 mL/hr, Intravenous, CONTINUOUS, Starting on Sun07/24/23 at 0645, Until Sun07/24/23 at 1115, Day of Surgery (Day of Procedure) lidocaine (Xylocaine) 1% (10 mg/mL) injection 3 mg 3 mg (0.3 mL), Subcutaneous, ONCE PRN, 1 dose, Starting on Sun07/24/23 at 0619, Until Sun07/24/23 at 1115, for discomfort with PIV insertion, Day of Surgery (Day of Procedure), Routine sodium chloride 0.9 % (flush) (BD PosiFlush Normal Saline 0.9) flush 5-20 mL 5-20 mL, Intravenous, EVERY 1 MIN PRN, Starting on Sun07/24/23 at 0619, Until Sun07/24/23 at 1115, flush, Flush pertains to all indwelling lines. Flush per protocol found in the job aid using the link provided on this medication record., Day of Surgery (Day of Procedure), Routine documented in this encounter Active and Recently Administered Medications Times are shown in EDT. Scheduled Medication Order 07/22/2023 07/23/2023 07/24/2023 ceFAZolin (Ancef) 3 g vial attach to sodium chloride 0.9% 100 mL Mini-Bag Plus(Linked Group 1) 3 g, Intravenous, ONCE, 1 dose, On Sun07/24/23 at 0645, Administer over 30 Minutes, Silver Designer to OR Infuse over 30 minutes., Day of Surgery (Day of Procedure), Indication for (Active or Suspected): Prophylaxis 0645 (Due) heparin (porcine) (5,000 units/1 mL) subcutaneous injection 5,000 Units 5,000 Units, Subcutaneous, ONCE, 1 dose, On Sun07/24/23 at 0645, Day of Surgery (Day of Procedure), Routine 06 (Due) metroNIDAZOLE (Flagyl) 500 mg in sodium chloride 0.9% 100 mL infusion(Linked Group 1) 500 mg, Intravenous, ONCE, 1 dose, On Sun07/24/23 at 0645, Administer over 30 Minutes, Silver Designer to OR Infuse over 30 minutes., Day of Surgery (Day of Procedure), Indication for (Active or Suspected): Prophylaxis 644 (Due) Continuous Medication Order 07/22/2023 07/23/2023 07/24/2023 lactated ringers infusion 1,000 mL, at 100 mL/hr, Intravenous, CONTINUOUS, Starting on Sun07/24/23 at 0645, Until Sun07/24/23 at 1115, Day of Surgery (Day of Procedure) 644 (Due) PRN Medication Order 07/22/2023 07/23/2023 07/24/2023 lidocaine (Xylocaine) 1% (10 mg/mL) injection 3 mg 3 mg (0.3 mL), Subcutaneous, ONCE PRN, 1 dose, Starting on Sun07/24/23 at 0619, Until Sun07/24/23 at 1115, for discomfort with PIV insertion, Day of Surgery (Day of Procedure), Routine sodium chloride 0.9 % (flush) (BD PosiFlush Normal Saline 0.9) flush 5-20 mL 5-20 mL, Intravenous, EVERY 1 MIN PRN, Starting on Sun07/24/23 at 0619, Until Sun07/24/23 at 1115, flush, Flush pertains to all indwelling lines. Flush per protocol found in the job aid using the link provided on this medication record., Day of Surgery (Day of Procedure), Routine Linked Groups Order Group 1: ceFAZolin (Ancef) 3 g vial attach to sodium chloride 0.9% 100 mL Mini-Bag PlusJump to med 3 g, Intravenous, ONCE, 1 dose, On Sun07/24/23 at 0645, Administer over 30 Minutes, Silver Designer to OR Infuse over 30 minutes., Day of Surgery (Day of Procedure), Indication for (Active or Suspected): Prophylaxis And metroNIDAZOLE (Flagyl) 500 mg in sodium chloride 0.9% 100 mL infusionJump to med 500 mg, Intravenous, ONCE, 1 dose, On Sun07/24/23 at 0645, Administer over 30 Minutes, Silver Designer to OR Infuse over 30 minutes., Day of Surgery (Day of Procedure), Indication for (Active or Suspected): Prophylaxis documented in this encounter Care Teams Tube Pusher Relationship Specialty Start Date End Date Dandy Driscoll APRN [address] [place] [address] [place] [phone] PCP - General Family Medicine 01/20/16 documented as of this encounter
--- OUTSIDE RECORDS SUMMARY | 2024-02-27 19:34 | XMS_ITS | Encounter Summary ---
Author Organization [facility] Address [facility] [place] [address] Care Team Providers Care Carpenter Railcar Name Role Phone Dandy Driscoll APRN Primary Care Provider [phone] Encounter Details Date Type Department Care Team (Late st Contact Info) Description 04/04/2023 Transcribe Orders eDH Incoming Referrals [phone] Paco Sheppard MD [address] [place] [phone] Social History Tobacco Use Types Packs/Day Years Used Date Smoking Tobacco: Former Cigarettes Q uit: 10/1978 Smokeless Tobacco: Never Alcohol Use Standard Drinks/Week Comments No 0 (1 standard drink = 0.6 oz pur e alcohol) Sex and Gender Information Value Date Recorded Sex Assigned at Not on file Gender Identity Not on file Sexual Orientation Not on file documented as of this encounter Plan of Treatment Upcoming Encounters Date Type Department Care Team (Late st Contact Info) Description 03/04/2024 12:00 PM EST Office Visit [place] [address] Jordyn Francisco MD [facility] OBSTETRICS [place] [address] documented as of this encounter Visit Diagnoses Not on filedocumented in this encounter Care Teams Carpenter Railcar Relationship Specialty Start Date End Date Dandy Driscoll APRN [address] [place] [address] [place] [phone] PCP - General Family Medicine 01/20/16 documented as of this encounter
--- OUTSIDE RECORDS SUMMARY | 2024-02-27 19:34 | XMS_ITS | Encounter Summary ---
Author Organization [facility] [place] [address] Care Team Providers Care Oven Operator Automatic Name Role Phone DriscollDandy LETI Primary Care Provider Encounter Details Date Type Department Care Team (Late st Contact Info) Description 01/18/2022 Orders Only [place] [phone] Patrick Dumont MD H/O total hip arthroplasty, bilateral; H/O total knee replacement, bilateral Social History Tobacco Use Types Packs/Day Years [...] PM EST Office Visit [place] [phone] Jordyn Francisco MD [facility] DR OBSTETRICS [place] [address] documented as of this encounter Results * XR Pelvis and Hip 2 Views Bilateral (02/23/2022 11:34 AM EST) Anatomical Region Laterality Modality Pelvis, Hip Bilateral Digital Radiogra phy Impressions 02/23/2022 1:43 PM EST Status post bilateral total hip arthroplasties. No evidence of complication. I have personally reviewed the image(s) and the resident's interpretation and agree with the findings, Elke Samaniego MD at 02/23/2022 1:43 PM Thank you for letting us participate in the care of this patient. ??If you are a health care provider and have any questions regarding this report, please contact the number below. ??For patients who have questions please contact the health resident care technician that requested your imaging first. ? Electronically signed by: Elke Samaniego MD, [facility] ([phone]), at 02/23/2022 1:43 PM Narrative 02/23/2022 1:43 PM EST EXAMINATION: XR PELVIS AND HIP 2 VIEWS BILATERAL CLINICAL HISTORY: LT ENA DOS 02/13/18 & RT ENA DOS 01/19/21 (BOTH [facility]) TECHNIQUE: AP pelvis with AP and lateral views each hip (6 images) COMPARISON: Radiographs February 13, 2018; June 27, 2018 and February 17, 2021 FINDINGS: Left hip: Status post left total hip arthroplasty with cerclage wires. The femoral and acetabular components are in normal alignment. There is no periprosthetic fracture, lucency, or subsidence. Right hip: Status post right total hip arthroplasty. Femoral and acetabular components are in normal alignment. There is there is no periprosthetic fracture, lucency or subsidence. The sacroiliac joints and pubic symphysis are congruent. There is scattered bowel gas overlying the pelvis. No effusion or focal soft tissue prominence. Procedure Note Elke Samaniego MD - 02/23/2022 EXAMINATION: XR PELVIS AND HIP 2 VIEWS BILATERAL CLINICAL HISTORY: LT ENA DOS 02/13/18 & RT ENA DOS 01/19/21 (BOTH [facility]) TECHNIQUE: AP pelvis with AP and lateral views each hip (6 images) COMPARISON: Radiographs February 13, 2018; June 27, 2018 and February 17, 2021 FINDINGS: Left hip: Status post left total hip arthroplasty with cerclage wires. The femoraland acetabular components are in normal alignment. There is noperiprosthetic fracture, lucency, or subsidence. Right hip: Status post right total hip arthroplasty. Femoral and acetabularcomponents are in normal alignment. There is there is no periprosthetic fracture, lucencyor subsidence. The sacroiliac joints and pubic symphysis are congruent. There isscattered bowel gas overlying the pelvis. No effusion or focal soft tissueprominence. IMPRESSION Status post bilateral total hip arthroplasties. No evidence ofcomplication. I have personally reviewed the image(s) and the resident's interpretationand agree with the findings, Elke Samaniego MD at 02/23/2022 1:43 PM Thank you for letting us participate in the care of this patient. If youare a health care provider and have any questions regarding this report,please contact the number below. For patients who have questions please contactthe health resident care technician that requested your imaging first. Patrick Dumont MD IMG DX ORDERABLES * XR Knee 1-2 Views Bilat (Generic) (02/23/2022 11:34 AM EST) Anatomical Region Laterality Modality Knee Bilateral Digital Radiogra phy Impressions 02/23/2022 12:14 PM EST Unchanged and Uncomplicated bilateral total knee arthroplasty. The LEFT implant is revised in 2020. Thank you for letting us participate in the care of this patient. ??If you are a health care provider and have any questions regarding this report, please contact the number below. ??For patients who have questions please contact the health resident care technician that requested your imaging first. ? Narrative 02/23/2022 12:14 PM EST EXAMINATION: XR KNEE 1-2 VIEWS BILAT (GENERIC) CLINICAL HISTORY: BILAT TKA DOS 06/27/01 & LT TKA REV DOS 11/11/12 ([facility]) TECHNIQUE: 3 views BILATERAL knee COMPARISON: Multiple examinations since 2012 FINDINGS: Bilateral total hip arthroplasties. The LEFT implant is revised in 2020. Alignment: The prostheses are unchanged in alignment. Complication: There is no loosening or fracture. Horizontal screw traversing the RIGHT proximal tibia, beneath the tibial stem. Soft tissues: Small RIGHT knee effusion. Procedure Note Shanice Lee MD - 02/23/2022 EXAMINATION: XR KNEE 1-2 VIEWS BILAT (GENERIC) CLINICAL HISTORY: BILAT TKA DOS 06/27/01 & LT TKA REV DOS 11/11/12([facility]) TECHNIQUE: 3 views BILATERAL knee COMPARISON: Multiple examinations since 2012 FINDINGS: Bilateral total hip arthroplasties. The LEFT implant is revised in 2020. Alignment: The prostheses are unchanged in alignment. Complication: There is no loosening or fracture. Horizontal screw traversing the RIGHT proximal tibia, beneath the tibialstem. Soft tissues: Small RIGHT knee effusion. IMPRESSION Unchanged and Uncomplicated bilateral total knee arthroplasty. The LEFTimplant is revised in 2020. Thank you for letting us participate in the care of this patient. If youare a health care provider and have any questions regarding this report,please contact the number below. For patients who have questions please contactthe health resident care technician that requested your imaging first. Patrick Dumont MD IMG DX ORDERABLES documented in this encounter Visit Diagnoses Diagnosis H/O total hip arthroplasty, bilateral H/O total knee replacement, bilateral H/O total knee replacement, bilateral H/O total hip arthroplasty, bilateral documented in this encounter Care Teams Oven Operator Automatic Relationship Specialty Start Date End Date Dandy Driscoll APRN [address] [place] [address] [place] [phone] PCP - General Family Medicine 01/20/16 documented as of this encounter
--- OUTSIDE RECORDS SUMMARY | 2024-02-27 19:34 | XMS_ITS | Encounter Summary ---
[place] [address] Care Team Providers Care Department Mgr Name Role Phone Dandy Driscoll APRN Primary Care Provider [phone] Reason for Referral * Consultation (Routine) - Closed Specialty Diagnoses / Procedures Referred By Contac t Referred To Contact General Surgery Diagnoses EIN (endometrial intraepithelial neoplasia) Zenia Rice APRN [address] [place] [address] [place] [address] [facility] Gen Surgery [address] [place] [address] Referral ID Status Reason Start Date Expiration Date V isits Requested Visits Authorized [id number] Closed Consult, Test & Treat 05/16/2023 05/15/2024 1 1 Encounter Details Date Type Department Care Team (Latest Contact Info) Description 05/15/2023 12:00 PM EST TH Visit (TeleHealth) [place] [address] EIN (endometrial intraepithelial neoplasia) Social History Tobacco Use Types Packs/Day Years Used Date Smoking Tobacco: Former Cigarettes Q uit: 10/1978 Smokeless Tobacco: Never Alcohol Use Standard Drinks/Week Comments No 0 (1 standard drink = 0.6 oz pur e alcohol) [facility] Inpatient Questions Answer Date Recorded Does Anyone [...] PM EST Office [place] [address] Jordyn Francisco MD [facility] [place] [address] Scheduled Referrals Name Type Priority Associated Diagnoses Orde r Schedule Amb Referral to Geriatric Surgery Program Outpatient Referral Routine EIN (endometrial intraepithelial neoplasia) Ordered: 05/16/2023 documented as of this encounter Visit Diagnoses Diagnosis EIN (endometrial intraepithelial neoplasia) Endometrial intraepithelial neoplasia (EIN) documented in this encounter Care Teams Department Mgr Relationship Specialty Start Date End Date Dandy Driscoll APRN [address] [place] [address] SHELLI Reich [phone] PCP - General Family Medicine 01/20/16 documented as of this encounter
--- OUTSIDE RECORDS SUMMARY | 2024-02-27 19:34 | XMS_ITS | Encounter Summary ---
[place] [address] Care Team Providers Care Housing Officer Name Role Phone Dandy Driscoll APRN Primary Care Provider [phone] Reason for Visit * Reason Onset Date Comments Referral 03/07/2021 Encounter Details Date Type Department Care Team (Late st Contact Info) Description 03/07/2021 Telephone [place] [address] Patrick Dumont MD Referral Social History Tobacco Use Types Packs/Day Years [...] encounter Miscellaneous Notes * Telephone Encounter - Irais Oliver - 03/07/2021 2:24 PM EST Cj Colindres from [facility] in [place] needs the PT referral FAXed to [phone]. DONE documented in this encounter Plan of Treatment Upcoming Encounters Date Type Department Care Team (Late st Contact Info) Description 03/04/2024 12:00 PM EST Office Visit Gynecology [place] [address] Jordyn Francisco MD [facility] OBSTETRICS [place] [address] documented as of this encounter Visit Diagnoses Not on filedocumented in this encounter Care Teams Housing Officer Relationship Specialty Start Date End Date Dandy Driscoll APRN [address] [place] [address] [place] [phone] PCP - General Family Medicine 01/20/16 documented as of this encounter
--- OUTSIDE RECORDS SUMMARY | 2024-02-27 19:34 | XMS_ITS | Encounter Summary ---
Author Organization [facility] Address [facility] [place] [address] Care Team Providers Care Merchant Mariner Name Role Phone Dandy Driscoll APRN Primary Care Provider [phone] Encounter Details Date Type Department Care Team (Latest Contact Info) Description 06/15/2023 10:20 AM EST TH Visit (TeleHealth) [place] [phone] Marietta Ohara MD [facility] DR GYNECOLOGIC [place] [address] EIN (endometrial intraepithelial neoplasia) Social History Tobacco Use Types Packs/Day Years Used Date Smoking Tobacco: Former Cigarettes Q uit: 10/1978 Smokeless Tobacco: Never Alcohol Use Standard Drinks/Week Comments No 0 (1 standard drink = 0.6 oz pur e alcohol) [facility] Utilities Answer Date Recorded In the past 12 months has e [employer], gas, oil, or water [employer] threatened to shut off services in your [...] place to sleep or slept in a group home (including now)? No 05/20/2023 IPV Inpatient [...] Progress Notes * Marietta Ohara MD - 06/15/2023 10:20 AM EST Spoke with Stacy to solidify surgical plan. She has not yet established a ride home from surgery oranyone to check on her post op. She does continue to work on this. I have asked our psych social worker to reach out to her as well. documented in this encounter Plan of Treatment Upcoming Encounters Date Type Department Care Team (Late st Contact Info) Description 03/04/2024 12:00 PM EST Office Visit [place] [phone] Jordyn Francisco MD [facility] OBSTETRICS [place] [address] documented as of this encounter Visit Diagnoses Diagnosis EIN (endometrial intraepithelial neoplasia) Endometrial intraepithelial neoplasia (EIN) documented in this encounter Care Teams Merchant Mariner Relationship Specialty Start Date End Date Dandy Driscoll APRN [address] [place] [address] [place] [phone] PCP - General Family Medicine 01/20/16 documented as of this encounter
--- OUTSIDE RECORDS SUMMARY | 2024-02-27 19:34 | XMS_ITS | Encounter Summary ---
Author Organization [facility] [place] [address] Care Team Providers Care Gas Welder Apprentice Name Role Phone Dandy Driscoll APRN Primary Care Provider [phone] Encounter Details Date Type Department Care Team (Latest Contact Info) Description 05/08/2023 3:00 PM EST [place] [address] EIN (endometrial intraepithelial neoplasia) Social History Tobacco Use Types Packs/Day Years Used Date Smoking Tobacco: Former Cigarettes Q uit: 10/1978 Smokeless Tobacco: Never Alcohol Use Standard Drinks/Week Comments No 0 (1 standard drink = 0.6 oz pur e alcohol) IPV Inpatient Questions Answer Date Recorded Does [...] PM EST Office [place] [address] Jordyn Francisco MD [facility] [address] OBSTETRICS [place] [address] documented as of this encounter Procedures Procedure Name Priority Date/Time Associated Diagnosis Comments ABORH RECHECK STATUS Routine 05/08/2023 2:54 PM EST HEMOGRAM Routine 05/08/2023 2:54 PM EST EIN (endometrial intraepithelial neoplasia) DIFFERENTIAL, AUTOMATED Routine 05/08/2023 2:54 PM EST EIN (endometrial intraepithelial neoplasia) TYPE AND SCREEN, SDP (FUTURE SURGERY, [facility] SAME DAY PROGRAM ONLY) Routine 05/08/2023 2:54 PM EST EIN (endometrial intraepithelial neoplasia) CBC (WITH DIFF) Routine 05/08/2023 2:54 PM EST EIN (endometrial intraepithelial neoplasia) HEMOGLOBIN A1C Routine 05/08/2023 2:54 PM EST EIN (endometrial intraepithelial neoplasia) COMPREHENSIVE METABOLIC PANEL Routine 05/08/2023 2:54 PM EST EIN (endometrial intraepithelial neoplasia) documented in this encounter Results * ABORH Recheck Status (05/08/2023 2:54 PM EST) ABORH Type Recheck Completed [facility] Blood 05/08/2023 2:54 PM EST 05/08/2023 3:02 PM EST Narrative Resulting Agency Comment Spec In Lab Marietta Ohara MD BLOOD BANK LAB ORD ERABLES [facility] [place] [address] * Differential, Automated (05/08/2023 2:54 PM EST) Neutrophil % 67.5 % [facility] Neutrophil Absolute 5.61 1.70 - 6.10 x10(3)/[facility] Lymph % 22.4 % [facility] Lymphocytes Abs 1.9 0.9 - 3.2 x10(3)/[facility] Monocyte % 7.3 % [facility] Monocyte Abs 0.6 0.3 - 0.9 x10(3)/[facility] Eos % 1.9 % [facility] Eosinophils Abs 0.2 0.0 - 0.4 x10(3)/[facility] Basophil % 0.5 % [facility] Baso Absolute 0.0 0.0 - 0.1 x10(3)/[facility] Immature Gran % 0.40 % [facility] Comment: Immature granulocytes(IG's)percentage and absolute count will include metamyelocytes, myelocytes, and promyelocytes. Blood smears from CBCs yielding IG's will be scanned manually for concordance. If this scan disagrees with the automated IG or if promyelocytes are noted, a manual differential will be performed. Immature Gran Absolute 0.03 0.00 - 0.04 x10(3)/[facility] Blood 05/08/2023 2:54 PM EST 05/08/2023 3:08 PM EST Narrative Resulting Agency Comment Spec In Lab Marietta Ohara MD HEMATOLOGY ORDERAB LES [facility] [place] [address] * (ABNORMAL) Hemogram (05/08/2023 2:54 PM EST) White Blood Cell 8.3 4.0 - 9.5 x10(3)/mc L [facility] Red Blood Cell 4.47 4.00 - 5.21 x10(6)/mc L [facility] Hemoglobin 13.8 11.7 - 15.5 g/dL [facility] Hematocrit 42.3 35.7 - 45.8 % [facility] Mean Cell Volume 94.6(H) 82.6 - 94.4 fL [facility] Mean Cell Hemoglobin 30.9 27.1 - 32.0 pg [facility] Mean Cell Hemoglobin Concentration 32.6 31.7 - 35.0 g/dL [facility] Platelet 273 145 - 357 x10(3)/mc L [facility] RDW Standard Deviation 48.9(H) 37.0 - 46.0 fL [facility] RDW coefficient of variation 13.9 11.5 - 14.1 % [facility] Mean Platelet Volume 11.0 7.6 - 12.[address] [facility] NRBC% auto 0.0 % [facility] NRBC Absolute 0.000 0.000 - 0.000 x10(3)/mc L [facility] Blood 05/08/2023 2:54 PM EST 05/08/2023 3:08 PM EST Narrative Resulting Agency Comment Spec In Lab Marietta Ohara MD HEMATOLOGY ORDERAB LES [facility] [address] [place] [address] * Comprehensive metabolic panel (non-fasting) (05/08/2023 2:54 PM EST) Glucose 101 65 - 199 mg/dL [facility] Comment:Diabetes: >=200 mg/d L plus symptoms Blood Urea Nitrogen 16 8 - 18 mg/dL [facility] Creatinine 0.80 0.70 - 1.20 mg/dL [facility] Sodium 138 135 - 145 mmol/L [facility] Potassium 4.2 3.5 - 5.0 mmol/L [facility] Comment: Please note: ??Patients with WBC >100,000 may have falsely elevated Potassium levels. ??For accurate Potassium quantification in these patients send serum separator tube (gold top) for subsequent determinations. ??Contact the Clinical Chemistry Laboratory if there are any questions. Chloride 104 98 - 107 mmol/L [facility] Carbon Dioxide 24 22 - 31 mmol/L [facility] Anion Gap 10 5 - 15 mmol/L [facility] Calcium 9.7 8.5 - 10.5 mg/dL [facility] Protein, Total 7.3 6.1 - 8.0 g/dL [facility] Albumin 4.1 3.2 - 5.2 g/dL [facility] Aspartate Aminotransferase 13 0 - 30 unit/L [facility] Alanine Aminotransferase 9 0 - 30 unit/L [facility] Alkaline Phosphatase 69 35 - 105 unit/L [facility] Bilirubin, Total 0.6 0.2 - 1.3 mg/dL [facility] Est Glomerular Filtration Rate 78 >=60 mL/min/1. 73 m?? [facility] Comment: This patient's estimated GFR was [...] urine creatinine clearance. Assignment of CKD stage 1-5 for patients with an eGFR near the transition point between stages may be based on clinical assessment of muscle mass and symptoms in addition to eGFR. Blood 05/08/2023 2:54 PM EST 05/08/2023 3:08 PM EST Narrative Resulting Agency Comment Spec In Lab Marietta Ohara MD CHEMISTRY ORDERABL ES Performing Organization Address [facility] Co de Phone Number [facility] [place] [address] * (ABNORMAL) Hemoglobin A1c (05/08/2023 2:54 PM EST) Hemoglobin A1c 6.2(H) 4.3 - 5.6 % [facility] Comment: Reference Range: 4.3 - 5.6% 5.7 - 6.4% - Increased Risk of Developing Diabetes Mellitus >= 6.5% - Consistent with diagnosis of Diabetes Mellitus In the absence of hyperglycemia (i.e. plasma glucose > 200 mg/dL) or classic symptoms of hyperglycemia a repeat measurement of HbA1c should be performed on a separate sample to confirm the diagnosis. Diagnosis and Classification of Diabetes Mellitus, Diabetes Care 2013; 36: Suppl. 1, T40-64 Estimated Average Glucose See note mg/dL [facility] Comment: Estimated Average Glucose not appropriate for patients over 70 years of age. Blood 05/08/2023 2:54 PM EST 05/08/2023 3:08 PM EST Narrative Resulting Agency Comment Spec In Lab Marietta Ohara MD CHEMISTRY ORDERABL ES Performing Organization Address [facility] Co de Phone Number [facility] [place] [place] [address] * Type and Screen Future Surgery, [facility] SAME DAY PROGRAM ONLY) (05/08/2023 2:54 PM EST) ABORH Type A NEGATIVE [facility] Patient BB History Found [facility] Expires at 3900 on: 06-22-2023 [facility] Ab Screen Interp Negative [facility] Blood 05/08/2023 2:54 PM EST 05/08/2023 2:54 PM EST Narrative Resulting Agency Comment Spec In Lab Marietta Ohara MD BLOOD BANK LAB ORD ERABLES [facility] [place] [place] [address] documented in this encounter Visit Diagnoses Diagnosis EIN (endometrial intraepithelial neoplasia) Endometrial intraepithelial neoplasia (EIN) documented in this encounter Care Teams Gas Welder Apprentice Relationship Specialty Start Date End Date Dandy Driscoll APRN [address] [place] [address] [place] [phone] PCP - General Family Medicine 01/20/16 documented as of this encounter
--- OUTSIDE RECORDS SUMMARY | 2024-02-27 19:34 | XMS_ITS | Encounter Summary ---
Author Organization [facility] [place] [address] Care Team Providers Care Coroner Forensic Technician Name Role Phone Dandy Driscoll APRN Primary Care Provider [phone] Reason for Visit * Auth/Cert (Routine) Specialty Diagnoses / Procedures Referred By Contac t Referred To Contact Diagnoses ATYPICAL HYPERPLASIA Procedures PRO LAPAROSCOPY W TOT HYSTERECTUTERUS <=250 GRAM W TUBE/OVARY LAPAROSCOPY,TOTAL HYST, UTERUS<250GM, REM TUBE &/OR OVARY, ROBOTIC ASSIST (WRVU 15) MODIFIER ROBOT,DAVINCI XI Marietta Ohara MD [facility] [place] [address] [facility] Referral ID Status Reason Start Date Expiration Date Visits Re quested Visits Authorized [id number] 1 1 Encounter Details Date Type Department Care Team (Latest Contact Info) Description 07/24/2023 6:01 AM EDT - 07/24/2023 9:14 AM EDT Hospital Encounter [place] [address] Marietta Ohara MD [facility] GYNECOLOGIC ONCOLOGY [place], [place] [id number] Discharge Disposition: Home Social History Tobacco Use Types Packs/Day Years Used Date Smoking Tobacco: Former Cigarettes Q uit: 10/1978 Smokeless Tobacco: Never Alcohol Use Standard Drinks/Week Comments No 0 (1 standard drink = 0.6 oz pur e alcohol) [facility] Utilities Answer Date Recorded In the past [...] in a residential (including now)? No 05/20/2023 DH IPV Inpatient [...] BID, # 28 EA, 4 Refill(s), Pharmacy: [facility] #[id number], 157, cm, 04/22/22 20:46:00 EST, Height/Length Dosing, 122.47, kg, 04/22/22 20:46:00 EST, Weight Dosing 05/11/2022 02/07/2024 prednisoLONE acetate (PRED MILD) 0.12 % Drops, Suspension 0 Refill(s) 10/18/2022 12/04/2023 mirabegron ER (Myrbetriq) 25 mg ER 24 hr tablet Take 25 mg by mouth. 03/08/2023 mirabegron (Myrbetriq) 50 mg ER 24 hr [...] 05/08/23,and subsequent documentation. Interval Note: S: Stacy Knight reports she is doing ok this morning; [...] has discussed her surgery with people at [facility], and has not found anyone who could reliably check in on her in the post-operative period. Preferred pharmacy is [facility] in [place], [place]. Allergies Allergen Reactions Adhesive Tape Rips the skin off when removing Isopropyl Alcohol Rash Meperidine Hcl Other (See Comments) Very Loopy Penicillins Other (See Comments) SWELLS UP (age 15) [facility] Penicillin Allergy Risk Assessment 11/05/2020: Low risk penicillin allergy. OK to receive full dose of cefazolin, cefuroxime, or any 3rd or 4th+ generation cephalosporin. [facility] Penicillin Allergy Risk Assessment 05/08/2023: Low risk penicillin allergy. OK to receive full dose of cefazolin, cefuroxime, or any 3rd or 4th+ generation cephalosporin. [facility] Clinic CORRECTIONAL PROBATION OFFICER to place Allergy referral for formal penicillin allergy evaluation. Patient open to a phone consult from all.Clinic Propoxyphene Hcl Itching Past medical history: - CHF, follows with Dr. 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 Place of Residence: [place], [place] Place of Origin: [place], [place] O: BP (!) 174/93 (BP Location [...] PM EST Office Visit [place] [address] Jordyn Francisco MD [facility] OBSTETRICS [place] [address] documented as of this encounter Visit Diagnoses [...] Sun07/24/23 at 0645, Administer over 30 Minutes, Tube Turner to OR Infuse over 30 minutes., Day of Surgery (Day of Procedure), Indication for (Active or Suspected): Prophylaxis 0645 (Due) heparin (porcine) (5,000 units/1 mL) subcutaneous injection 5,000 Units 5,000 Units, Subcutaneous, ONCE, 1 dose, On Sun07/24/23 at 0645, Day of Surgery (Day of Procedure), Routine 0645 (Due) metroNIDAZOLE (Flagyl) 500 mg in sodium chloride 0.9% 100 mL infusion(Linked Group 1) 500 mg, Intravenous, ONCE, 1 dose, On Sun07/24/23 at 0645, Administer over 30 Minutes, Tube Turner to OR Infuse over 30 minutes., Day [...] Sun07/24/23 at 0645, Administer over 30 Minutes, Tube Turner to OR Infuse over 30 minutes., Day of Surgery (Day of Procedure), Indication for (Active or Suspected): Prophylaxis And metroNIDAZOLE (Flagyl) 500 mg in sodium chloride 0.9% 100 mL infusionJump to med 500 mg, Intravenous, ONCE, 1 dose, On Sun07/24/23 at 0645, Administer over 30 Minutes, Tube Turner to OR Infuse over 30 minutes., Day of Surgery (Day of Procedure), Indication for (Active or Suspected): Prophylaxis documented in this encounter Care Teams Coroner Forensic Technician Relationship Specialty Start Date End Date Dandy Driscoll APRN [address] [place] [address] [place] [phone] PCP - General Family Medicine 01/20/16 documented as of this encounter
--- OUTSIDE RECORDS SUMMARY | 2024-02-27 19:34 | XMS_ITS | Encounter Summary ---
Author Organization [facility] Address [facility] [place] [address] Care Team Providers Care Resin Shaver Name Role Phone Dandy Driscoll APRN Primary Care Provider [phone] Encounter Details Date Type Department Care Team (Latest Contact Info) Description 02/17/2021 12:28 PM EST - 02/17/2021 11:59 PM [facility] Hospital Encounter XRay at [address] [place] [address] Patrick Dumont MD S/P Right [facility], 01/19/21 (Dr Dumont) Discharge Disposition: Home Social History Tobacco Use [...] Sig Dispensed Refills Start Date End Date acetaminophen (Tylenol) 500 mg Tablet Take 2 [...] the lungs every 4 hours as needed. aspirin EC 81 mg Tablet, Delayed Release (E.C.) Take 1 tablet by mouth 2 times daily for 24 days. Take twice daily for 30 days after surgery. Last day = 02/18/2021 48 tablet 01/26/2021 02/19/2021 gabapentin (Neurontin) 300 mg Capsule Take 1 capsule by mouth nightly for 24 days. Take for 30 days after surgery. Last day = 02/18/2021 24 capsule 01/26/2021 02/19/2021 miconazole (Micotin) 2 % Powder Apply topically 2 times daily. 01/26/2021 12/04/2023 pantoprazole EC (Protonix) 20 mg Tablet, Delayed Release (E.C.) Take 1 tablet by mouth daily. 01/26/2021 02/23/2022 polyethylene glycoL (Miralax) 17 gram Powder in Packet Take 17 g by mouth 2 times daily. 01/26/2021 02/23/2022 senna-docusate (Pericolace) 8.6-50 mg Tablet Take 2 tablets by mouth 2 times daily. 01/26/2021 02/23/2022 traMADoL (Ultram) 50 mg Tablet Take 0.5-1 tablets by mouth every 6 hours as needed for Pain. For mild pain (1-3) give 25 mg. For moderate to severe pain (4-10) give 50 mg. 15 tablet 01/26/2021 02/23/2022 meloxicam (MOBIC) 7.5 mg TabletIndications:Prima ry osteoarthritis of right hip Take 1 tablet by mouth daily. Take with food 30 tablet 10/20/2020 05/08/2023 lisinopriL (Prinivil;Zestril) 10 mg Tablet Take 10 mg by mouth daily. 05/08/2023 loperamide (IMODIUM A-D) 2 mg Tablet Take 4 mg by mouth 4 times daily as needed for Diarrhea. Maximum 16 mg in 24 hours 12/04/2023 fluticasone-salmeterol (ADVAIR) 500-50 mcg/dose diskus inhaler Inhale 1 puff into the lungs 2 times daily. 05/08/2023 documented as of this encounter Plan of Treatment Upcoming Encounters Date Type Department Care Team (Late st Contact Info) Description 03/04/2024 12:00 PM EST Office Visit [place] [address] Jordyn Francisco MD [facility] [place] [address] documented as of this encounter Procedures Procedure Name Priority Date/Time Associated Diagnosis Comments XR PELVIS AND HIP 2 VIEWS RIGHT Routine 02/17/2021 12:51 PM EST S/P Right [facility], 01/19/21 (Dr Dumont) documented in this encounter Results * XR Pelvis and Hip 2 Views Right (02/17/2021 12:51 PM EST) Anatomical Region Laterality Modality Pelvis, Hip Right Digital Radiogra phy Impressions 02/17/2021 1:51 PM EST 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 No radiographic evidence of complication. Stable appearance of LEFT hip arthroplasty. Thank you for letting us participate in the care of this patient. ??If you are a health care provider and have any questions regarding this report, please contact the number below. ??For patients who have questions please contact the health anesthesiologist and critical care that requested your imaging first. ? 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 No radiographic evidence of complication. Stable appearance of LEFT hip arthroplasty. 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 No radiographic evidence of complication. Stable appearance of LEFT hip arthroplasty. IMPRESSION 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 No radiographic evidence of complication. Stable appearance of LEFT hip arthroplasty. Thank you for letting us participate in the care of this patient. If youare a health care provider and have any questions regarding this report,please contact the number below. For patients who have questions please contactthe health anesthesiologist and critical care that requested your imaging first. Patrick Dumont MD IMG DX ORDERABLES documented in this encounter Visit Diagnoses Diagnosis S/P Right ENA, 01/19/21 (Dr Dmuont) Hip joint replacement by other means documented in this encounter Care Teams Resin Shaver Relationship Specialty Start Date End Date Dandy Driscoll APRN [address] [place] [address] [place] [id number] PCP - General Family Medicine 01/20/16 documented as of this encounter
--- OUTSIDE RECORDS SUMMARY | 2024-02-27 19:34 | XMS_ITS | Encounter Summary ---
Author Organization [facility] [place] [address] Care Team Providers Care Basket Hand Weaver Name Role Phone Dandy Driscoll APRN Primary Care Provider [phone] Encounter Details Date Type Department Care Team (Latest Contact Info) Description 05/08/2023 Travel Social History Tobacco Use Types Packs/Day Years Used Date Smoking Tobacco: Former Cigarettes Q uit: 10/1978 Smokeless Tobacco: Never Alcohol Use Standard Drinks/Week Comments No 0 (1 standard drink = 0.6 oz pur e alcohol) DH IPV Inpatient Questions Answer Date Recorded [...] PM EST Office Visit [place] [address] Jordyn Francisco MD [facility]ST[facility] [address] documented as of this encounter Visit Diagnoses Not on filedocumented in this encounter Care Teams Basket Hand Weaver Relationship Specialty Start Date End Date Dandy Driscoll APRN [address] [place] [address] [place] [address] PCP - General Family Medicine 01/20/16 documented as of this encounter
--- OUTSIDE RECORDS SUMMARY | 2024-02-27 19:34 | XMS_ITS | Encounter Summary ---
Author [place] [address] Care Team Providers Care Tube And Rod Straightener Name Role Phone Dandy Driscoll APRN Primary Care Provider [phone] Reason for Visit * Auth/Cert Specialty Diagnoses / Procedures Referred By Contac t Referred To Contact Diagnoses right hip OA Procedures PRO TOTAL HIP ARTHROPLASTY PRG RADEX HIP UNILATERAL WITH PELVIS MINIMUM 4 VIEWS TOTAL HIP ARTHROPLASTY, ANTERIOR APPROACH (WRVU 20.72) HIP INTRAOP RADIOLOGIC EXAMINATION, UNILATERAL, W PELVIS; 4+ VIEWS (WRVU 0.27) MODIFIER CORAIL FEMORAL STEM DEPUY MODIFIER PINNACLE ACETABULUM DEPUY Referral ID Status Reason Start Date Expiration Date Visits Re quested Visits Authorized [id number] 1 1 Encounter Details Date Type Department Care Team (Latest Contact Info) Description 01/19/2021 1:20 PM EDT - 01/26/2021 3:41 PM EDT Hospital Encounter 3 [place] [id number] Patrick Dumont MD Primary osteoarthritis of right hip Discharge Disposition: Rehab Center in a Facility Social History Tobacco Use Types Packs/Day Years [...] Sign Reading Time Taken Comments Blood Pressure 134/62 01/26/2021 8:08 AM EDT Pulse 82 01/24/2021 4:23 AM EDT Temperature 37.2 ??C (99 ??F) 01/26/2021 8:08 AM EDT Respiratory Rate 18 01/26/2021 8:08 AM EDT Oxygen Saturation 96% 01/26/2021 8:08 AM EDT Inhaled Oxygen Concentration - - Weight 108.9 kg (240 lb) 01/19/2021 1:36 PM EDT Height 157.5 cm (5' 2) 01/19/2021 1:36 PM EDT Body Mass Index 43.9 01/19/2021 1:36 PM EDT documented in this encounter Discharge Summaries * Mckayla Puritt P, CLINICAL STAFF EDUCATOR - 01/24/2021 6:52 AM EDT Discharge Summary Patient Name: Stacy Knight Patient Age: 70 y.o. Language: Thai Race: White Ethnicity: Not nor Admit date: 01/19/2021 Discharge date and time: 01/26/2021 Attending Physician: Patrick Dumont MD Discharge Physician: Patrick Dumont MD Follow-up Recommendations for Providers: See discharge instructions for additional details. Future Appointments Date Time Provider Department Center 02/17/2021 12:45 PM [facility] DX ROOM 2 Xray [facility] Rad 02/17/2021 1:40 PM Patrick Dumont MD [facility] ORTH 3C [facility] Inpatient Provider Contact Information: Patrick Dumont MD Orthopedics: [phone] After hours and weekends, call [facility] Armorer Technician, , and have the Orthopedic resident paged. Discharge Diagnoses (Hospital Problems) and Secondary Diagnoses (Chronic Problems): Active Hospital Problems Diagnosis ??? S/P Right ENA, 01/19/21 (Dr Dumont) ??? Postoperative anemia due to acute blood loss ??? Morbid obesity with BMI of 40.0-44.9, adult Resolved Hospital Problems Diagnosis Date Resolved ??? Primary osteoarthritis of right hip 01/19/2021 Active Non-Hospital Problems Diagnosis ??? 02/13/2018 S/P left total hip arthroplasty (Dr. Dumont) ??? Primary osteoarthritis of left hip ??? Pain in left hip ??? History of total right knee replacement, R TKA performed in 2001 ??? Tibial component revision L knee (11/11/2012, [facility]) ??? Impaired renal function Operations/Major Procedures: 01/19/2021 Surgeon(s) and Role: * Patrick Dumont MD - Primary * Nikos Gomes MD - Resident Procedure(s): RIGHT TOTAL HIP ARTHROPLASTY, ANTERIOR APPROACH HIP INTRAOP RADIOLOGIC EXAMINATION, UNILATERAL, W PELVIS; 4+ VIEWS MODIFIER CORAIL FEMORAL STEM DEPUY MODIFIER PINNACLE ACETABULUM DEPUY Findings: Significant femoral and acetabular osteoarthritic changes. Components were well positioned. No fractures appreciated. Stability testing reveled stable construct without impingement within physiologic range of motion. History of Presentation: Stacy Knight is a 70 y.o. female with right hip osteoarthritis. After exhausting conservative measures, the patient elected to proceed with total hip arthroplasty. The risks and benefits of this procedure were reviewed in depth and patient received medical clearance prior to procedure. Hospital Course: The patient was admitted via Same Day Surgery for the above operation. DVT prophylaxis was: ASA 81mg BID for 30 days. Patient began rehab on POD#1 for weight bearing as tolerated of right leg and reinforcement of the standard ENA Precautions. On POD#1 patient was voiding spontaneously without difficulty. The right hip silver Mepilex dressing to remain in place 7 days. On POD#7, the right hip silver Mepilex dressing was removed and a new silver Mepilex dressing was applied. This silver Mepilex will stay on for 7 days (through 02/02/2021). Pain was well controlled with oral pain medications. Patient did have a bowel movement prior to discharge and was passing flatus and was taking a diet without difficulty. By POD#2 the patient was medically stable and was cleared for safe discharge to rehab but remained in hospital until 01/26/21 due to lack of rehab beds. On POD#7, the patient discharged to rehab per PT. OF NOTE: POD#2 Hgb 9.9, down from 12.9 on 11/05/20, prior to surgery. Hemoglobin drop associated with anemia from a combination of acute blood loss from surgery and hemodilution as expected. No intervention necessary, patient asymptomatic. Vital Signs at Discharge: Weight: Wt Readings from Last 1 Encounters: 01/19/21 108.9 kg (240 lb) Height: Ht Readings from Last 1 Encounters: 01/19/21 157.5 cm (5' 2) HC: HC Readings from Last 1 Encounters: No data found for HC BMI: Body mass index is 43.9 kg/m??. Last value Range last 24 hrs Temperature Temp: 37.2 ??C (99 ??F) Temp: [36.2 ??C (97.2 ??F)-37.2 ??C (99 ??F)] Heart Rate Heart Rate: 82 Heart Rate: -- Blood Pressure BP: 134/62 BP: (113-134)/(61-69) Respiratory Rate Resp: 18 Resp: [16-20] SpO2 SpO2: 96 % SpO2: [94 %-96 %] Functional and Cognitive Status: Patient mobilizing with assistance and FWW, cognitively intact at baseline mental status at time of discharge. Important Lab Data: Last 3 wbc, hgb, hct plt Recent Labs 01/22/21 0445 01/21/21 0326 01/20/21 0453 WBC 9.2 13.8* 14.0* HGB 9.9* 9.9* 11.4* HCT 30.3* 30.2* 34.7* PLATELET 187 176 214 Last 3 Lytes Recent Labs 01/22/21 0445 01/21/21 0326 01/20/21 0453 NA 141 143 137 K 4.5 4.5 5.0 CL 107 108* 103 CO2 29 27 26 BUN 21* 27* 16 CREATININE 0.51* 0.90 0.68* Last Ca, Mg, Phos Recent Labs 01/22/21 044 CALCIUM 8.3* Studies: XR Fluoro No Rad <1Hr - OR Use Result Date: 01/19/2021 This exam is auto-finalizing. No interpretation was done. Pending Studies and Lab Data at Discharge: Order Name Source Comment Collection Info Order Time SPECIMEN TO PATHOLOGY right hip oa right femoral head excision No 01/19/2021 3:39 PM Time specimen removed from patient: 3:39 PM Number of tissue samples (in container) 1 Biospecimen to store? No Transfusions: No Discharge Conditions/Prognosis: Stable, awake, and alert. Mobilizing as noted above, pain controlled on oral medications. Discharge to: Rehab [facility] [address] [place] [address] Updated Allergies/ADRs: Allergies Allergen Reactions ??? Adhesive Tape Rips the skin off when removing ??? Isopropyl Alcohol Rash ??? Meperidine Hcl Other (See Comments) Very Loopy ??? Penicillins Other (See Comments) SWELLS UP (age 15) PAT Penicillin Allergy Risk Assessment 11/05/2020: Low risk penicillin allergy. OK to receive full dose of cefazolin, cefuroxime, or any 3rd or 4th+ generation cephalosporin. ??? Propoxyphene Hcl Itching Immunizations Given this Hospitalization: Immunization History Administered Date(s) Administered ??? Influenza Vaccine, Unspecified Formulation 12/16/2016 ??? Influenza Vaccine, Whole 12/29/2008 Discharge Medications: Your Medications New Medications Dose Details acetaminophen 500 mg Tab Commonly known as: Tylenol Take 2 tablets by mouth every 8 hours as needed for Pain. 1,000 mg Refills: 0 aspirin EC 81 mg Tbec Take 1 tablet by mouth 2 times daily for 24 days. Take twice daily for 30 days after surgery. Last day = 02/18/2021 81 mg Quantity: 48 tablet Refills: 0 gabapentin 300 mg Cap Commonly known as: Neurontin Take 1 capsule by mouth nightly for 24 days. Take for 30 days after surgery. Last day = 02/18/2021 300 mg Quantity: 24 capsule Refills: 0 Lactase 9,000 unit Tab Commonly known as: Lactaid Fast Act Take 2 tablets by mouth 3 times daily (with meals). 2 tablet Refills: 0 miconazole 2 % Powd Commonly known as: Micotin Apply topically 2 times daily. Refills: 0 pantoprazole EC 20 mg Tbec Commonly known as: Protonix Take 1 tablet by mouth daily. 20 mg Refills: 0 polyethylene glycoL 17 gram Pwpk Commonly known as: Miralax Take 17 g by mouth 2 times daily. 17 g Refills: 0 senna-docusate 8.6-50 mg Tab Commonly known as: Pericolace Take 2 tablets by mouth 2 times daily. 2 tablet Refills: 0 Continued medications with new dosing Dose Details traMADoL 50 mg Tab Commonly known as: Ultram Take 0.5-1 tablets by mouth every 6 hours as needed for Pain. For mild pain (1- 3) give 25 mg. For moderate to severe pain (4-10) give 50 mg. What changed: ?? how much to take ?? additional instructions 25-50 mg Quantity: 15 tablet Refills: 0 Continued medications, unchanged Dose Details augmented betamethasone dipropionate 0.05 % Oint Commonly known as: Diprolene-AF APPLY TOPICALLY OT THE AFFECTED AREA(S) TWICE WEEKLY. DO NOT EXCEED 45 GRAMS PER WEEK. TO REPLACE CLOBETASOL Refills: 6 buPROPion XL 150 mg Tablet Extended Release 24 hr Commonly known as: Wellbutrin XL daily. Refills: 12 calcium carbonate 200 mg calcium (500 mg) Chew Commonly known as: Tums Take 3 tablets by mouth as needed for Heartburn. 3 tablet Refills: 0 Cranberry 1,000 mg Cap Take by mouth 2 times daily. Refills: 0 fluticasone propion-salmeteroL 500-50 mcg/dose Dsdv Commonly known as: ADVAIR Inhale 1 puff into the lungs 2 times daily. 1 puff Refills: 0 lisinopriL 10 mg Tab Commonly known as: Zestril Take 10 mg by mouth daily. 10 mg Refills: 0 loperamide 2 mg Tab Commonly known as: IMODIUM A-D Take 4 mg by mouth 4 times daily as needed for Diarrhea. Maximum 16 mg in 24 hours 4 mg Refills: 0 meloxicam 7.5 mg Tab Commonly known as: MOBIC Take 1 tablet by mouth daily. Take with food 7.5 mg Quantity: 30 tablet Refills: 0 METAMUCIL (SUGAR) ORAL Take 1 Scoop by mouth 2 times daily as needed (constipation). 1 Scoop Refills: 0 Nystop 100,000 unit/gram Powd APPLY POWDER TO THE ABDOMINAL PANNUS TOPICALLY TWICE DAILY Generic drug: nystatin Refills: 1 Xopenex HFA 45 mcg/actuation Hfaa Inhale 2 puffs into the lungs every 4 hours as needed. Generic drug: levalbuteroL 2 puff Refills: 0 STOPPED Medications cyclobenzaprine 10 mg Tab Commonly known as: Flexeril NUTRITIONAL SUPPLEMENT ORAL Smoking Status at Discharge: Social History Tobacco Use Smoking Status Former Smoker ??? Packs/day: 0.00 ??? Years: 0.50 ??? Pack years: 0.00 ??? Types: Cigarettes ??? Quit date: 1979 ??? Years since quittin.8 Smokeless Tobacco Never Used Instructions for Rehab Providers or PCP: 1. Anticoagulation: ASPIRIN Take 81mg twice a day for 30 days. Last day = 02/18/21. 2. Activity: Standard: Full weight bearing as tolerated using walker and staff assistance at all times for balance and protection. Patient should transition from sit to stand and stand to sit utilizing a broad based stance with feet and knees wider than hips. 3. Diet: Regular but increase fluids and fiber while on narcotic pain meds. 4. Kavin/Sutures: No external kavin or sutures inplace. Sutures are internal and will be absorbed over time. 5. Dressing (Mepilex): Remove operative dressing 7 days from surgery (01/26/21). On 01/26/21, this silver Mepilex dressing was removed and a new silver Mepilex dressing was applied. It will stay in place an additional 7 days (02/02/21). On 02/02/21 you may remove the second mepilex. When the secondMepilex is removed on 02/02/21, you can leave the incision open to air or cover it with a light dres sing. 6. Shower: (Mepilex) yes but lightly pat the operative dressing dry if it becomes wet. DO NOT submerge the dressing/incision. 7. Aggressive bowel regimen - LBM = 01/25/21. 8. Physical therapy/Ocupational therapy twice a day 7 days per week. SEE BELOW FOR MORE INFORMATION Instructions Given to Patient at Discharge: Patient Instructions Activity: 1. Your weight-bearing status is - weight bearing as tolerated of right leg. 2. Remember to use a walker at all times for balance and protection. Your physical therapist may progress you to using a cane when appropriate. 3. Remember your hip precautions: Standard: You should transition from sit to stand and stand to sit utilizing a broad based stance with feet and knees wider than hips. Anticoagulation: Aspirin - You are being discharged on enteric-coated Aspirin 81 mg by mouth twice a day for 30 days. After your dose on 02/18/2021, stop the Aspirin, unless you are told otherwise byyour Orthopedic surgeon. Take this medication with food or large amounts (240 mL) of water or milk to minimize GI irritation. Diet: Resume your usual home diet but increase your intake of fluids and fiber while you are on narcotic pain meds to prevent constipation. Driving: None until you are cleared to do so by your Orthopedic surgeon. You should not drive whileyou are on narcotic pain meds as they can affect your judgment and reaction time. Call your surgeonwith any questions/concerns. Medications: 1. The pain medication you are on can cause constipation so increase your intake of fluids and fiber while you are on them. The stool softener, Pericolace, that has been prescribed can also be taken to facilitate a bowel movement. You can also take an wrgf-jju-kxqhexk medication, Miralax if needed to combat constipation. 2. If you need a renewal on your narcotic pain medication, you need to give the Orthopedic clinic enough time to process your request. This can take up to three days, so plan accordingly. You will need to follow-up with your Primary Care Provider for ongoing pain management, Tramadol prescribing. 3. Continue acetaminophen (Tylenol) 1,000mg every 8 hours around the clock until 01/29/21 (for ten days after your surgery). This can be effective in controlling pain along with your other medications. After that you can take Tylenol as needed per package insert. Do not take more than 3,000mg of acetaminophen in a 24 hour period. 4. You have been discharged on a short acting narcotic, Tramadol. You will be on this medication for a limited period of time only. Take the smallest dose possible to control your pain. As your pain improves take smaller, less frequent doses. You may break the tablet to achieve a smaller dose. 5. Continue your usual home dose of meloxicam (Mobic). This medication is a type of nonsteroidal anti-inflammatory (NSAID). This will help with your pain and inflammation. 6. You are being discharged on a proton pump inhibitor (Prilosec). This will decrease stomach irritation that may be caused by NSAIDs-meloxicam. Take this daily while taking meloxicam if needed. 7. You are being discharged on gabapentin (Neurontin), a non-narcotic medication that will help with your pain at night and allow you to sleep better. Take this at night for the next 4 weeks. Shower (internal sutures): 1. You can shower but remember your activity limitations and always have a chair available for balance and protection. DO NOT submerge the dressing/incision. 2. (Mepilex) Do not let water run over the operative dressing. If it becomes wet lightly pat the dressing dry. DO NOT submerge the incision. When this operative dressing is removed you can let water gently run over the incision. Wound (Mepilex): 1. You do NOT have any external kavin or sutures in place. Your sutures are internal and will be absorbed over time. 2. You have a Mepilex dressing in place. Do not lift the edge of the Mepilex dressing to inspect the incision, it will not re-adhere. Remove your operative dressing 7 days after your surgery (01/26).On 01/26 this dressing was removed and a new silver Mepilex dressing was applied. It will stay in place an additional 7 days (02/02/21). On 02/02/21 you may remove the second mepilex. When the secondMepilex is removed on 02/02/21, you can leave the incision open to air or cover it with a light dressing. Some patients have an additional item called Flavio on their skin. If you have this it will appear as a mesh dressing directly over the incision. Please leave this in place until your follow upwith orthopedics. 3. If you have lots of drainage when you get home (and it is before 02/02/21), remove the Mepilex dressing and replace it with dry sterile gauze. Continue with daily dressing changes (and as needed) until the drainage stops, then remove the dressing and apply the second mepilex dressing provided. Misc: Remember that ICE and elevation are very important after surgery to help decrease swelling and control pain. Use ICE for 20-30 minutes at a time and keep your leg elevated as much as possible. Call your doctor ([phone]) if you develop: 1. Fever greater than 100.5 2. Severe nausea or vomiting 3. Increasing pain that is not controlled by pain medications 4. Increasing redness, swelling, or drainage from incisions 5. Change in sensation FOLLOW-UP APPOINTMENTS: 1. You will have follow-up appointments at [facility] as indicated below in Future Appointment and Orders. 2. You will need to have x-rays prior to your follow-up appointment on 02/17/21. Please come to Radiology, desk , 1 hour BEFORE that appointment for these x-rays. Future Appointments Date Time Provider Department Center 02/17/2021 12:45 PM [facility] DX ROOM 2 MH Xray [facility] Rad 02/17/2021 1:40 PM Patrick Dumont MD [facility] ORTH [address] [place] [address] If you have questions or concerns: Sunday through Sunday, 8 AM - 5 PM, please call Dr. Patrick Dumont MD's office at . If it is after 5 PM, the weekend, or holidays, please call and ask to speak with theOrthopedic resident on-call. General Instructions None Future Appointments and Orders Future Appointments and Orders Future Appointments Provider Department Dept Phone 02/17/2021 12:45 PM [facility] DX ROOM 2 XRay at [facility] Arrive at: Risk Adjustment Specialist Area [phone] Please go to Risk Adjustment Specialist Area ([place] Location). 02/17/2021 1:40 PM Patrick Dumont MD Orthopaedics at [facility] Arrive at: Risk Adjustment Specialist Area [phone] Primary Care Provider: Dandy Driscoll APRN [phone] Discharge References/Attachments None documented in this encounter Discharge Instructions * Patient Instructions* Mckayla Pruitt APRN - 01/20/2021 7:07 AM EDT Activity: 1. Your weight-bearing status is - weight bearing as tolerated of right leg. 2. Remember to use a walker at all times for balance and protection. Your physical therapist may progress you to using a cane when appropriate. 3. Remember your hip precautions: Standard: You should transition from sit to stand and stand to sit utilizing a broad based stance with feet and knees wider than hips. Anticoagulation: Aspirin - You are being discharged on enteric-coated Aspirin 81 mg by mouth twice a day for 30 days. After your dose on 02/18/2021, stop the Aspirin, unless you are told otherwise byyour Orthopedic surgeon. Take this medication with food or large amounts (240 mL) of water or milk to minimize GI irritation. Diet: Resume your usual home diet but increase your intake of fluids and fiber while you are on narcotic pain meds to prevent constipation. Driving: None until you are cleared to do so by your Orthopedic surgeon. You should not drive whileyou are on narcotic pain meds as they can affect your judgment and reaction time. Call your surgeonwith any questions/concerns. Medications: 1. The pain medication you are on can cause constipation so increase your intake of fluids and fiber while you are on them. The stool softener, Pericolace, that has been prescribed can also be taken to facilitate a bowel movement. You can also take an hppk-wtb-poakwgz medication, Miralax if needed to combat constipation. 2. If you need a renewal on your narcotic pain medication, you need to give the Orthopedic clinic enough time to process your request. This can take up to three days, so plan accordingly. You will need to follow-up with your Primary Care Provider for ongoing pain management, Tramadol prescribing. 3. Continue acetaminophen (Tylenol) 1,000mg every 8 hours around the clock until 01/29/21 (for ten days after your surgery). This can be effective in controlling pain along with your other medications. After that you can take Tylenol as needed per package insert. Do not take more than 3,000mg of acetaminophen in a 24 hour period. 4. You have been discharged on a short acting narcotic, Tramadol. You will be on this medication for a limited period of time only. Take the smallest dose possible to control your pain. As your pain improves take smaller, less frequent doses. You may break the tablet to achieve a smaller dose. 5. Continue your usual home dose of meloxicam (Mobic). This medication is a type of nonsteroidal anti-inflammatory (NSAID). This will help with your pain and inflammation. 6. You are being discharged on a proton pump inhibitor (Prilosec). This will decrease stomach irritation that may be caused by NSAIDs-meloxicam. Take this daily while taking meloxicam if needed. 7. You are being discharged on gabapentin (Neurontin), a non-narcotic medication that will help with your pain at night and allow you to sleep better. Take this at night for the next 4 weeks. Shower (internal sutures): 1. You can shower but remember your activity limitations and always have a chair available for balance and protection. DO NOT submerge the dressing/incision. 2. (Mepilex) Do not let water run over the operative dressing. If it becomes wet lightly pat the dressing dry. DO NOT submerge the incision. When this operative dressing is removed you can let water gently run over the incision. Wound (Mepilex): 1. You do NOT have any external kavin or sutures in place. Your sutures are internal and will be absorbed over time. 2. You have a Mepilex dressing in place. Do not lift the edge of the Mepilex dressing to inspect the incision, it will not re-adhere. Remove your operative dressing 7 days after your surgery (01/26).On 01/26 this dressing was removed and a new silver Mepilex dressing was applied. It will stay in place an additional 7 days (02/02/21). On 02/02/21 you may remove the second mepilex. When the secondMepilex is removed on 02/02/21, you can leave the incision open to air or cover it with a light dressing. Some patients have an additional item called Prineo on their skin. If you have this it will appear as a mesh dressing directly over the incision. Please leave this in place until your follow upwith orthopedics. 3. If you have lots of drainage when you get home (and it is before 02/02/21), remove the Mepilex dressing and replace it with dry sterile gauze. Continue with daily dressing changes (and as needed) until the drainage stops, then remove the dressing and apply the second mepilex dressing provided. Misc: Remember that ICE and elevation are very important after surgery to help decrease swelling and control pain. Use ICE for 20-30 minutes at a time and keep your leg elevated as much as possible. Call your doctor ([phone]) if you develop: 1. Fever greater than 100.5 2. Severe nausea or vomiting 3. Increasing pain that is not controlled by pain medications 4. Increasing redness, swelling, or drainage from incisions 5. Change in sensation FOLLOW-UP APPOINTMENTS: 1. You will have follow-up appointments at [facility] as indicated below in Future Appointment and Orders. 2. You will need to have x-rays prior to your follow-up appointment on 02/17/21. Please come to Radiology, desk 3T, 1 hour BEFORE that appointment for these x-rays. Future Appointments Date Time Provider Department Center 02/17/2021 12:45 PM [facility] CENTER DX ROOM 2 MH Xray [facility] Rad 02/17/2021 1:40 PM Patrick Dumont MD [facility] ORTH 3C [facility] If you have questions or concerns: Sunday through Sunday, 8 AM - 5 PM, please call Dr. Patrick Dumont MD's office at . If it is after 5 PM, the weekend, or holidays, please call and ask to speak with theOrthopedic resident on-call. documented in this encounter Medications at Time [...] daily. 05/08/2023 documented as of this encounter Progress Notes * Nikos Gomes MD - 01/26/2021 10:02 AM EDT ORTHOPAEDIC SURGERY INPATIENT PROGRESS NOTE Patient Name: Stacy Knight Age: 70 y.o. Surgery/Issue: Right Total Hip Arthroplasty Attending: Dr. Dumont Date of surgery: 01/19/2021 SUBJECTIVE / INTERVAL HISTORY: Doing well this morning. Bedside in chair, comfortable and ready for d/c. FOCUSED REVIEW OF SYSTEMS: as above. Active Hospital Problems Diagnosis ??? S/P Right ENA, 01/19/21 (Dr Dumont) ??? Postoperative anemia due to acute blood loss ??? Morbid obesity with BMI of 40.0-44.9, adult Resolved Hospital Problems Diagnosis Date Resolved ??? Primary osteoarthritis of right hip 01/19/2021 Active Non-Hospital Problems Diagnosis ??? 02/13/2018 S/P left total hip arthroplasty (Dr. Dumont) ??? Primary osteoarthritis of left hip ??? Pain in left hip ??? History of total right knee replacement, R TKA performed in 2001 ??? Tibial component revision L knee (11/11/2012, Bhavin) ??? Impaired renal function MEDICATIONS: ??? miconazole (Micotin) 2 % powder ??? Lactase Tab 18,000 Units ??? loperamide (Imodium A-D) capsule 2 mg ??? buPROPion XL (Wellbutrin XL) tablet 150 mg ??? lisinopriL (Zestril) tablet 10 mg ??? sodium chloride 0.9 % (flush) (BD PosiFlush Normal Saline 0.9) flush 5 mL ??? polyethylene glycoL (Miralax) packet 17 g ??? senna-docusate (Pericolace) 8.6-50 mg per tablet 2 tablet ??? bisacodyl EC (Dulcolax) tablet 10 mg ??? bisacodyL (Dulcolax) suppository 10 mg ??? acetaminophen (Tylenol) tablet 1,000 mg ??? [COMPLETED] gabapentin (Neurontin) capsule 600 mg FOLLOWED BY gabapentin (Neurontin) capsule 300 mg ??? pantoprazole EC (Protonix) tablet 20 mg ??? traMADoL (Ultram) tablet 25-50 mg ??? aspirin EC tablet 81 mg ??? BUpivacaine (pf) (Marcaine) (2.5 mg/mL) 0.25% injection ??? cloNIDine (pf) (Duraclon) (100 mcg/mL) Epidural injection ??? ketorolac (Toradol) (30 mg/mL) injection ??? povidone-iodine (Betadine Ophthalmic Prep) 5 % ophthalmic solution ??? labetaloL (Normodyne) (5 mg/mL) injection solution 10-20 mg OBJECTIVE: Temp: [36.2 ??C (97.2 ??F)-37.2 ??C (99 ??F)] Resp: [16-] BP: (113-134)/(61-69) Intake/Output Summary (Last 24 hours) at 01/26/2021 1002 Last data filed at 01/26/2021 0400 Gross per 24 hour Intake 940 ml Output -- Net 940 ml Body mass index is 43.9 kg/m??. PE: General: NAD, awake/alert CV: RRR assessed peripherally Resp: Breathing comfortably on RA RLE: Incision c/d/i. Motor intact to EHL, FHL, TA. Sensation intact in foot/calf/thigh. Brisk capillary refill distally. DP pulse 2+ Lab Results Component Value Date NA 141 01/22/2021 K 4.5 01/22/2021 CL 107 01/22/2021 CO2 29 01/22/2021 BUN 21 (H) 01/22/2021 CREATININE 0.51 (L) 01/22/2021 GLUCOSE 136 01/22/2021 CALCIUM 8.3 (L) 01/22/2021 Lab Results Component Value Date WBC 9.2 01/22/2021 HGB 9.9 (L) 01/22/2021 HCT 30.3 (L) 01/22/2021 MCV 99.0 (H) 01/22/2021 PLATELET 187 01/22/2021 Lab Results Component Value Date INR 1.1 11/05/2020 Imaging: Intra-operative Fluoro The right hip is reduced. There is no evidence of intra-op fracture. ASSESSMENT / PLAN: Stacy Knight is a 70 y.o. female 7 Days Post-Op s/p right ENA, progressing wellwith stable vitals. Plan for d/c to rehab. Dressing changed this morning. Activity: WBAT RLE Closure: Resorbable sutures Dressing: Mepilex x 14 days Drain: none Anticoagulation: ASA 81mg BID for 30 days Antibiotics: periop ancef Consults: PT/OT Dispo:Per PT/OT Follow-up: as scheduled below Nikos Gomes MD 01/26/2021 Future Appointments Date Time Provider Department Center 02/17/2021 12:45 PM [facility] DX ROOM 2 MH Xray [facility] Rad 02/17/2021 1:40 PM Patrick Dumont MD [facility] ORTH [address] [place] [address] * Jalyn Betancur - 01/26/2021 8:09 AM EDT Office of Care Management/Hydraulic Technician Patient Name: Stacy Knight : 1950 Patient has been offered a snf bed at [facility] arranged for a 1630 transport. Ambulance will need: Medicare ambulance form completed and signed (MD or Agricultural Chemist RN/COMPOUNDER) Copy of patient demographics [place] or [place] Out of Hospital DNR/DNI order, if active No MD to MD report necessary Please call Nursing Report to [phone], ask for trumpet teacher. Info to accompany patient: Copies of Medication Administration Records and IV sheets for past 10 days. Plan: Hydraulic Technician will be available to the patient and Agricultural Chemist-RN and/or Social Workerfor further assistance. Patient will be discharged to: [facility] [address] [place] [address] Lenore Cummings * Sriram Vanessa RN - 01/26/2021 5:41 AM EDT OUTCOME EVALUATION NOTE: OUTCOME SUMMARY: Pnt A/O X4 VSS on RA. Dressing C/D/I. Ambulated in hallway and bathroom at night, steady on 2 hand held (wrist) crutches. Had a bowel movt this shift, voiding adequately. Pain controlled with tyrenoland tramadol. Awaiting dc today. We will continue to monitor and help patient reach d/c goals. PLAN MOVING FORWARD: Pain control Mobilize Wound care D/c planning INDIVIDUALIZED FALL PREVENTION: Patient is currently a high risk to Fall. Patient educated on bed/chair alarm, demonstrates proper use of call anderson and verbalizes understanding of fall preventions implemented. Patient-specific fall risk factors per assessment: [current deficits]: Pain, Medications, Hospital Environment. Assistance [level of assistance required for transfers and ambulation]: 1 person SBA with 2 canes/hand held crutches Supervision [direct monitoring required during toileting and ADLs]: Moderate assist with ADL's Surveillance [continuous indirect monitoring]: Masimo, Purposeful Rounding, Nurse Knowledge Exchange Patient-specific fall prevention interventions for sensory deficits provided, if applicable: n/a CPG GOAL OUTCOME EVALUATION: * Reggie Cha - 01/25/2021 8:06 AM EDT Assistant Teacher Primary Encounter Note Patient Name: Stacy Knight : [id number] MR#: [id number] Admit Date: 01/19/2021 1:20 PM Hospital Day 0 days Narrative: Visited to introduce and assess acceptance of Assistant Teacher Primary services. Pt was not available as medical staff was there and I will visit an other time. Assessment: Intervention and Outcome: Follow-up: Time in Direct Care: Reggie Cha 01/26/2021 * Nikos Gomes MD - 01/25/2021 7:49 AM EDT ORTHOPAEDIC SURGERY INPATIENT PROGRESS NOTE Patient Name: Stacy Knight Age: 70 y.o. Surgery/Issue: Right Total Hip Arthroplasty Attending: Dr. Dumont Date of surgery: 01/19/2021 SUBJECTIVE / INTERVAL HISTORY: Doing fine this morning. Intent on putting own shoes on this morning. Has been ambulating with walker. Pain controlled. Labs wnl. Awaiting rehab. FOCUSED REVIEW OF SYSTEMS: as above. Active Hospital Problems Diagnosis ??? S/P Right ENA, 01/19/21 (Dr Dumont) ??? Morbid obesity with BMI of 40.0-44.9, adult Resolved Hospital Problems Diagnosis Date Resolved ??? Primary osteoarthritis of right hip 01/19/2021 Active Non-Hospital Problems Diagnosis ??? 02/13/2018 S/P left total hip arthroplasty (Dr. Dumont) ??? Primary osteoarthritis of left hip ??? Pain in left hip ??? History of total right knee replacement, R TKA performed in 2001 ??? Tibial component revision L knee (11/11/2012, Bhavin) ??? Impaired renal function MEDICATIONS: ??? miconazole (Micotin) 2 % powder ??? Lactase Tab 18,000 Units ??? loperamide (Imodium A-D) capsule 2 mg ??? buPROPion XL (Wellbutrin XL) tablet 150 mg ??? lisinopriL (Zestril) tablet 10 mg ??? sodium chloride 0.9 % (flush) (BD PosiFlush Normal Saline 0.9) flush 5 mL ??? polyethylene glycoL (Miralax) packet 17 g ??? senna-docusate (Pericolace) 8.6-50 mg per tablet 2 tablet ??? bisacodyl EC (Dulcolax) tablet 10 mg ??? bisacodyL (Dulcolax) suppository 10 mg ??? acetaminophen (Tylenol) tablet 1,000 mg ??? [COMPLETED] gabapentin (Neurontin) capsule 600 mg FOLLOWED BY gabapentin (Neurontin) capsule 300 mg ??? pantoprazole EC (Protonix) tablet 20 mg ??? traMADoL (Ultram) tablet 25-50 mg ??? aspirin EC tablet 81 mg ??? BUpivacaine (pf) (Marcaine) (2.5 mg/mL) 0.25% injection ??? cloNIDine (pf) (Duraclon) (100 mcg/mL) Epidural injection ??? ketorolac (Toradol) (30 mg/mL) injection ??? povidone-iodine (Betadine Ophthalmic Prep) 5 % ophthalmic solution ??? labetaloL (Normodyne) (5 mg/mL) injection solution 10-20 mg OBJECTIVE: Temp: [36.6 ??C (97.9 ??F)] Resp: [18] BP: (121-161)/(61-88) Intake/Output Summary (Last 24 hours) at 01/25/2021 0749 Last data filed at 01/24/2021 2323 Gross per 24 hour Intake 1360 ml Output -- Net 1360 ml Body mass index is 43.9 kg/m??. PE: General: NAD, awake/alert CV: RRR assessed peripherally Resp: Breathing comfortably on RA RLE: Dressing c/d/i. Motor intact to EHL, FHL, TA. Sensation intact in foot/calf/thigh. Brisk capillary refill distally. DP pulse 2+ Lab Results Component Value Date NA 141 01/22/2021 K 4.5 01/22/2021 CL 107 01/22/2021 CO2 29 01/22/2021 BUN 21 (H) 01/22/2021 CREATININE 0.51 (L) 01/22/2021 GLUCOSE 136 01/22/2021 CALCIUM 8.3 (L) 01/22/2021 Lab Results Component Value Date WBC 9.2 01/22/2021 HGB 9.9 (L) 01/22/2021 HCT 30.3 (L) 01/22/2021 MCV 99.0 (H) 01/22/2021 PLATELET 187 01/22/2021 Lab Results Component Value Date INR 1.1 11/05/2020 Imaging: Intra-operative Fluoro The right hip is reduced. There is no evidence of intra-op fracture. ASSESSMENT / PLAN: Stacy Knight is a 70 y.o. female 6 Days Post-Op s/p right ENA, progressing wellwith stable vitals. She says she would like to discharge to rehab due to home situation, no barriers to discharge from Ortho perspective. - Dressing change tomorrow. Activity: WBAT RLE Closure: Resorbable sutures Dressing: Mepilex x 14 days (7 days, d/c with additional mepilex) Drain: none Anticoagulation: ASA 81mg BID for 30 days Antibiotics: periop ancef Consults: PT/OT Dispo:Per PT/OT Follow-up: as scheduled below Nikos Gomes MD 01/25/2021 Future Appointments Date Time Provider Department Center 02/17/2021 12:45 PM [facility] DX ROOM 2 MH Xray [facility] Rad 02/17/2021 1:40 PM Patrick Dumont MD [facility] ORTH 3C [facility] * Jose Ramon Ricardo, OT - 01/24/2021 3:43 PM EDT Occupational Therapy Treatment Note Treatment Number OT: 3 Patient Dx: Stacy canas??70 y.o.??y/o female??admitted on 01/19/2021??by Dr. Patrick Dumont MD?for R??anterior ENA. Social History: Patient lives??alone. Home Setup:??Patient is able to live on one level with one step with rail. ??Patient uses a walk inshower at a [employer] for showering. DME:??cane,??raised toilet seat,??bail bondsman, long handled sponge, forearm crutches Baseline ADL/Mobility:??Patient reports she is able to dress and sponge bathe independently. ??Patient uses [employer] shower and her friend assists with supervision when shower on a 'fold up' chair. ??Patient takes [facility] for transportation. ??She does her own grocery shopping. ??Patient uses forearm crut ches for mobility and reports 2 falls in the past month. ??Patient reports she was bending to pick something up on the floor and fell forward during her last fall. Patient goes to the laundry mat forlaundry. ??Patient drives.? Precautions/Special Considerations:??WBAT R??leg, wide ANITA during sit><stand, no SLR R, no high bridging Interval History: Awaiting placement. S: I can't do this today. My legs are swollen (put on shoes). I usually put my shoes on in the morning and leave them on all day. I need someone to help with laundry and food. O: Patient seen for skilled OT treatment, and demonstrated the following: ?? Self-care: ?? Patient attempted to don shoes and today unable to place shoe on foot with bail bondsman/long handled shoe horn and became discouraged doing so. ?? Patient able to don socks with sock aid Mod I sitting in recliner. ?? Discussed adaptation of shoes including buying wider shoes. Today elastic shoe laces would not work as sh can't get shoe on with long handled shoe horn. Discussed wearing socks with tread till able to don shoes. ?? Discussed recommendation to sponge bathe and not worry about showering till able to drive and return to sabianist shower. ?? Functional Mobility:Patient mobilizing with PT in all way with forearm crutches one assistance. ?? Cognition: ?? Behavior / Mood: alert and cooperative; discouraged ?? Alert and oriented to: person, place and time ?? Follows commands: 100% of the time ?? Attention: WFL ?? Safety awareness: WFL ?? Vision:WFL ?? Endurance:Fair ?? Vitals: WFL Pain: Patient reports burning in right LE. Education: Pt/family/caregiver education ongoing regarding: Role of occupational therapy/rehabilitation, Transfers, Assistive device/technique, Adaptive equipment training, ADL, Safety, Functional Mobility, Recommendations and Discharge planning. Discussed at length adaptation for ADLS and IADLS. Discussed resources for IADLS. Staff Communication: Patient status, treatment, and mobility recommendations discussed with nursing/other staff. ASSESSMENT: Pt seen for light ADL in recliner. Patient frustrated with situation and need for assistance to don socks today due to increase edema in her feet. Patient expressed understanding if need to plan prior to surgery and is very motivated to go to rehab. She may be able to stay with niece but there are two - three steps without railings in to the home and she has concerns about being able to manage these steps. Patient further has to perform laundry out of the home and retrieve her own groceries, however receptive to having meals on wheels services. . Pt will benefit from ongoing therapeutic interventions to achieve pt's and therapy goals Equipment needs at discharge: to be determined Anticipated Discharge Disposition: inpatient rehabilitation facility with need of assistance for IADLS Daily schedule / Staff Recommendations: Continue to have patient take frequent walks with staff and AD x1 assistance. OOB for all ADLS. Mobilize in/out of bathroom CTG A with forearm crutches. Goals:??To be achieved by??02/03/21(CONT) Patient will stand at sink level with??Mod I??x10 min for ADLs. Patient will dress lower body indep with adaptive equipment prn. Patient will perform simple kitchen mgt with appropriate assistive device as needed and??Mod I Patient will ambulate to the bathroom with??Mod I, assistive device as needed. Patient will demonstrate energy conservation principals with all ADLs indep.?? Patient will sponge bathe sink level Mod I with AE. Patient will perform toilet hygiene Mod I with AE. Therapy Frequency (OT): 2-3 times/wk Total Minutes, Occupational Therapy: 33 (ADL training) Pager: [phone] RICARDO ALBRIGHT OT 01/24/2021 Occupational Therapy Rehabilitation Department * Elena Hammond MD - 01/24/2021 12:33 PM EDT ORTHOPAEDIC SURGERY INPATIENT PROGRESS NOTE Patient Name: Stacy Knight Age: 70 y.o. Surgery/Issue: Right Total Hip Arthroplasty Attending: Dr. Dumont Date of surgery: 01/19/2021 SUBJECTIVE / INTERVAL HISTORY: Patient much better this morning, sitting comfortably in chair, has been ambulating around floor with walker. She says her pain is well controlled. Denies chest pain, shortness of breath, nausea/vomiting, numbness/tingling. FOCUSED REVIEW OF SYSTEMS: as above. Active Hospital Problems Diagnosis ??? S/P Right ENA, 01/19/21 (Dr Dumont) ??? Morbid obesity with BMI of 40.0-44.9, adult Resolved Hospital Problems Diagnosis Date Resolved ??? Primary osteoarthritis of right hip 01/19/2021 Active Non-Hospital Problems Diagnosis ??? 02/13/2018 S/P left total hip arthroplasty (Dr. Dumont) ??? Primary osteoarthritis of left hip ??? Pain in left hip ??? History of total right knee replacement, R TKA performed in 2001 ??? Tibial component revision L knee (11/11/2012, Bhavin) ??? Impaired renal function MEDICATIONS: ??? miconazole (Micotin) 2 % powder ??? Lactase Tab 18,000 Units ??? loperamide (Imodium A-D) capsule 2 mg ??? buPROPion XL (Wellbutrin XL) tablet 150 mg ??? lisinopriL (Zestril) tablet 10 mg ??? sodium chloride 0.9 % (flush) (BD PosiFlush Normal Saline 0.9) flush 5 mL ??? polyethylene glycoL (Miralax) packet 17 g ??? senna-docusate (Pericolace) 8.6-50 mg per tablet 2 tablet ??? bisacodyl EC (Dulcolax) tablet 10 mg ??? bisacodyL (Dulcolax) suppository 10 mg ??? acetaminophen (Tylenol) tablet 1,000 mg ??? [COMPLETED] gabapentin (Neurontin) capsule 600 mg FOLLOWED BY gabapentin (Neurontin) capsule 300 mg ??? pantoprazole EC (Protonix) tablet 20 mg ??? traMADoL (Ultram) tablet 25-50 mg ??? aspirin EC tablet 81 mg ??? BUpivacaine (pf) (Marcaine) (2.5 mg/mL) 0.25% injection ??? cloNIDine (pf) (Duraclon) (100 mcg/mL) Epidural injection ??? ketorolac (Toradol) (30 mg/mL) injection ??? povidone-iodine (Betadine Ophthalmic Prep) 5 % ophthalmic solution ??? labetaloL (Normodyne) (5 mg/mL) injection solution 10-20 mg OBJECTIVE: Temp: [36.5 ??C (97.7 ??F)-36.8 ??C (98.2 ??F)] Heart Rate: [78-86] Resp: [16-18] BP: (120-146)/(59-75) Intake/Output Summary (Last 24 hours) at 01/24/2021 1234 Last data filed at 01/24/2021 0800 Gross per 24 hour Intake 720 ml Output -- Net 720 ml Body mass index is 43.9 kg/m??. PE: General: NAD, awake/alert CV: RRR assessed peripherally Resp: Breathing comfortably on RA RLE: Dressing c/d/i. Motor intact to EHL, FHL, TA. Sensation intact in foot/calf/thigh. Brisk capillary refill distally. DP pulse 2+ Lab Results Component Value Date NA 141 01/22/2021 K 4.5 01/22/2021 CL 107 01/22/2021 CO2 29 01/22/2021 BUN 21 (H) 01/22/2021 CREATININE 0.51 (L) 01/22/2021 GLUCOSE 136 01/22/2021 CALCIUM 8.3 (L) 01/22/2021 Lab Results Component Value Date WBC 9.2 01/22/2021 HGB 9.9 (L) 01/22/2021 HCT 30.3 (L) 01/22/2021 MCV 99.0 (H) 01/22/2021 PLATELET 187 01/22/2021 Lab Results Component Value Date INR 1.1 11/05/2020 Imaging: Intra-operative Fluoro The right hip is reduced. There is no evidence of intra-op fracture. ASSESSMENT / PLAN: Stacy Knight is a 70 y.o. female 5 Days Post-Op s/p right ENA, progressing wellwith stable vitals. She says she would like to discharge to rehab due to home situation, no barriers to discharge from Ortho perspective. Activity: WBAT RLE Closure: Resorbable sutures Dressing: Mepilex x 14 days (7 days, d/c with additional mepilex) Drain: none Anticoagulation: ASA 81mg BID for 30 days Antibiotics: periop ancef Consults: PT/OT Dispo:Per PT/OT Follow-up: as scheduled below Elena Hammond MD 01/24/2021 Future Appointments Date Time Provider Department Center 02/17/2021 12:45 PM [facility] DX ROOM 2 MH Xray [facility] Rad 02/17/2021 1:40 PM Patrick Dumont MD [facility] ORTH 3C [facility] * Josefa Patricio, PT - 01/24/2021 12:05 PM EDTSummary: No rehab beds available, pt not able to stay with brother. Pt will call to ask brother if he can bring a recliner to her home, could then go home w/ V Physical Therapy Note Treatment Number PT: 3 Patient profile:??Stacy canas??70 y.o.??y/o female??admitted on 01/19/2021??by Dr. Patrick Dumont MD?for R??anterior ENA. Referred to PT per pathway.??Pt had her L hip done in 2018 after which she stayed with family members. Interval Hx: no rehab beds available. Pt conts to be unable to get in and OO bed as set up at home.Recommending recliner, brother may be able to provide one and set it up in her home. This would allow direct DC to home ?? Patient with the following active problems: Past Medical History ? Past Medical History: Diagnosis Date ??? Asthma ? Bowel disease ? ibs ??? Chronic pain ? right hip and knee pain ??? COPD (chronic obstructive pulmonary disease) ? Gastroesophageal reflux ? rare use of TUMS ??? High blood pressure ? controlled with medication ??? Mental health problem ? depression ??? Transfusion history ? 1984 ??? Vertigo ? fell out of chair in past week or so ?? Past Surgical History ? Past Surgical History: Procedure Laterality Date ??? JOINT REPLACEMENT ? PRG RADEX HIP UNILATERAL WITH PELVIS MINIMUM 4 VIEWS Left 02/13/2018 ?? HIP INTRAOP RADIOLOGIC EXAMINATION, UNILATERAL, W PELVIS; 4+ VIEWS (WRVU 0.27) performed by Patrick Dumont MD at [facility] MAIN OR ??? PRG RADEX HIP UNILATERAL WITH PELVIS MINIMUM 4 VIEWS Right 01/19/2021 ?? HIP INTRAOP RADIOLOGIC EXAMINATION, UNILATERAL, W PELVIS; 4+ VIEWS (WRVU 0.27) performed by Patrick Dumont MD at [facility] MAIN OR ??? PRO REVISE KNEE JOINT REPLACE, ALL PARTS ?? 11/11/2012 ?? @TOTAL KNEE REVISION ARTHROPLASTY, COMPLETE performed by Carlos Delcid MD at [facility] OR ??? PRO TOTAL HIP ARTHROPLASTY Left 02/13/2018 ?? @TOTAL HIP ARTHROPLASTY, ANTERIOR APPROACH (WRVU 20.72) performed by Patrick Dumont MD at [facility] OR ??? PRO TOTAL HIP ARTHROPLASTY Right 01/19/2021 ?? TOTAL HIP ARTHROPLASTY, ANTERIOR APPROACH (WRVU 20.72) performed by Patrick Dumont MD at [facility] OR ? Social History:??Pt lives alone??in [place] managing on one level in her home. Reports there isone step into house (but uneven and big). Pt has a comfort height toilet btu sponge bathes only at home and takes a shower at her [employer] in a shower stall every 2-3 weeks[address] and did so up until surgery. Pt has trouble managing hygiene in private area, has incontinence and wears pull ups ?Her brother lives in [place], did give her a ride to [facility]. Pt plans to ask him if she could stay with him for awhile after rehab. he has a reclinerthat he'd let me use ?DME: elevated toilet seat, Lofstrand crutches ?? Precautions/Special Considerations:??WBAT R??leg, wide ANITA during sit><stand, no SLR R, no high bridging ? Mobility and Positioning Recommendations:? OK to raise HOB to facilitate bed mobility, assist with R>LLE to avoid pain/strain, OOB toward R side as at home ?? Ice to??R??anterior hip and thigh 4-6x/day. Elevate RLE on length montgomery pillow for comfort in bedor when in recliner ?? Pt should utilize??Lofstrand crutches??and S?for ambulation and transfers ?? Subjective:?I would have to have him move some furniture but that could possible work if he were to bring a recliner to my house ?? Objective:?Pt seen for cont assessment, ENA protocol exs and precaution teaching w/ transfer andgait training on level w/ Lofstrand??crutches. Discussed DC Plan with skilled rehab beds scarce at this time with pt to reach out to brother re lending her a recliner for home ?? Pain: tolerable level of pain, reports R lateral, IT band burning after walking 100 ft Skin:incision covered by silver mepilex dressing, CDI ?? Musculoskeletal: ROM/Strength: decreased??R??hip and core decreased functionally for management of flat bed mobility. Pt needed mod assist to bring legs into bed today Sensation: wnl ?? Bed Mobility:??sit>supine into flat bed mod assist of legs after pt tried to manage w/o assist and grossly unable to do so. Was able to use leglifter on LLE to help pull herself up from supine, ^^ time and effort. ? Transfers: Sit >< Stand:??from/to recliner, from to bed. Once standing reaches for Lofstrands??, S only ? Gait:?x 120 ft w/ Lofstrands with improved posture and with intermittent 4 point alternatinggait pattern, SBA only ? Stairs:??will need to assess/train for accessing her home ?? Education:??patient?educated on Bed mobility, Transfers, Assistive device/technique, Exercise, Positioning, Safety , Precautions/protocol, Equipment use, Gait , Home program, Role of therapy, Balance, Discharge planning and??home management??and needs reinforcement.??understanding. Patient status, treatment, and mobility recommendations discussed with nursing. ? Assessment:??Pt is now POD # 5 R??anterior ENA presenting OOB in recliner reporting tolerable R??hip pain when performing ENA exs, transferring and ambulating. She conts to be able to transfer and ambulate w/ Lofstrands unassisted and was able to progress walking distance today with safe technique w / improved posture and no appreciable limp. Pt conts to be unable to get into a flat bed simulatinghome and have recommended a recliner. There is the possibility that he could lend her a recliner and set it up in her home and then she could return directly to home w/ comprehensive VNA services Discharge Recommendations: Based on the current findings,??Anticipated Discharge Disposition (PT): inpatient rehabilitation facility, long-term facility vs home after recliner from brother in place w/ home PT/OTand HCA??when medically ready for hospital discharge. ?? Consult Recommendations:?? No other consults recommended at this time. ?? Equipment needs:? recliner ? Cleared by PT for DC: No ?Goals: To be achieved by??02/10/21 pt has met all but # 3 and 6. ?? 1. Pt. to demonstrate knowledge of safety limitations and precautions and will appropriately request assistance for functional activities and to mobilize. 2. Pt. to demonstrate understanding of appropriate??ENA??exercises. 3. Pt. to perform??flat??bed mobility, getting OOB toward the R as at home w/ or w/o use of leglifter to assist RLE 4. Pt. to perform??sit><stand??transfers with modified independenceusing??bilateral forearm crutches. ?? 5. Pt. to ambulate??100 +??feet with modified independence?using a bilateral forearm crutches. 6. Pt. to ambulate up/down??one large platform??step using?forearm crutches?with CGA. 7. Family or caregiver to demonstrate understanding of therapeutic interventions to support the care of the patient. 8. Pt will perform appropriate exs, ADL tasks, mobilize and ambulate with tolerable level of pain and stable vital signs ?? Plan: Pt to bed seen 2-4x/wk for??Bed mobility, Transfers, Assistive device/technique, Exercise, Positioning, Safety , Precautions/protocol, Equipment use, Gait , Home program, Role of therapy, Balance, Discharge planning and??home management?? Time IN / OUT: 1115/1205 Total Minutes, Physical Therapy: 50 Billing Code: therex, functional activities, home management JOSEFA PATRICIO PT Pager:[phone] Physical Therapy Inpatient Rehabilitation Department * Elena Hammond MD - 01/23/2021 7:18 AM EDT ORTHOPAEDIC SURGERY INPATIENT PROGRESS NOTE Patient Name: Stacy Knight Age: 70 y.o. Surgery/Issue: Right Total Hip Arthroplasty Attending: Dr. Dumont Date of surgery: 01/19/2021 SUBJECTIVE / INTERVAL HISTORY: Patient with some lateral leg pain in area of IT band while walking yesterday, otherwise no complaints. Pain well controlled this morning. Had a mepilex placed on left groin due to irritation yesterday, no other events overnight or issues. Denies chest pain, shortness of breath, nausea/vomiting, numbness/tingling. FOCUSED REVIEW OF SYSTEMS: as above. Active Hospital Problems Diagnosis ??? S/P Right ENA, 01/19/21 (Dr Dumont) ??? Morbid obesity with BMI of 40.0-44.9, adult Resolved Hospital Problems Diagnosis Date Resolved ??? Primary osteoarthritis of right hip 01/19/2021 Active Non-Hospital Problems Diagnosis ??? 02/13/2018 S/P left total hip arthroplasty (Dr. Dumont) ??? Primary osteoarthritis of left hip ??? Pain in left hip ??? History of total right knee replacement, R TKA performed in 2001 ??? Tibial component revision L knee (11/11/2012, Bhavin) ??? Impaired renal function MEDICATIONS: ??? Lactase Tab 18,000 Units ??? loperamide (Imodium A-D) capsule 2 mg ??? buPROPion XL (Wellbutrin XL) tablet 150 mg ??? lisinopriL (Zestril) tablet 10 mg ??? sodium chloride 0.9 % (flush) (BD PosiFlush Normal Saline 0.9) flush 5 mL ??? polyethylene glycoL (Miralax) packet 17 g ??? senna-docusate (Pericolace) 8.6-50 mg per tablet 2 tablet ??? bisacodyl EC (Dulcolax) tablet 10 mg ??? bisacodyL (Dulcolax) suppository 10 mg ??? acetaminophen (Tylenol) tablet 1,000 mg ??? [COMPLETED] gabapentin (Neurontin) capsule 600 mg FOLLOWED BY gabapentin (Neurontin) capsule 300 mg ??? pantoprazole EC (Protonix) tablet 20 mg ??? traMADoL (Ultram) tablet 25-50 mg ??? aspirin EC tablet 81 mg ??? BUpivacaine (pf) (Marcaine) (2.5 mg/mL) 0.25% injection ??? cloNIDine (pf) (Duraclon) (100 mcg/mL) Epidural injection ??? ketorolac (Toradol) (30 mg/mL) injection ??? povidone-iodine (Betadine Ophthalmic Prep) 5 % ophthalmic solution ??? labetaloL (Normodyne) (5 mg/mL) injection solution 10-20 mg OBJECTIVE: Temp: [36.5 ??C (97.7 ??F)-36.9 ??C (98.4 ??F)] Resp: [16-18] BP: (104-124)/(56-75) Intake/Output Summary (Last 24 hours) at 01/23/2021 0735 Last data filed at 01/23/2021 0400 Gross per 24 hour Intake 250 ml Output 250 ml Net 0 ml Body mass index is 43.9 kg/m??. PE: General: NAD, awake/alert CV: RRR assessed peripherally Resp: Breathing comfortably on RA RLE: Dressing c/d/i. Motor intact to EHL, FHL, TA. Sensation intact in foot/calf/thigh. Brisk capillary refill distally. DP pulse 2+ Lab Results Component Value Date NA 141 01/22/2021 K 4.5 01/22/2021 CL 107 01/22/2021 CO2 29 01/22/2021 BUN 21 (H) 01/22/2021 CREATININE 0.51 (L) 01/22/2021 GLUCOSE 136 01/22/2021 CALCIUM 8.3 (L) 01/22/2021 Lab Results Component Value Date WBC 9.2 01/22/2021 HGB 9.9 (L) 01/22/2021 HCT 30.3 (L) 01/22/2021 MCV 99.0 (H) 01/22/2021 PLATELET 187 01/22/2021 Lab Results Component Value Date INR 1.1 11/05/2020 Imaging: Intra-operative Fluoro The right hip is reduced. There is no evidence of intra-op fracture. ASSESSMENT / PLAN: Stacy Knight is a 70 y.o. female 4 Days Post-Op s/p right ENA, progressing wellwith stable vitals. Awaiting rehab. Activity: WBAT RLE Closure: Resorbable sutures Dressing: Mepilex x 14 days (7 days, d/c with additional mepilex) Drain: none Anticoagulation: ASA 81mg BID for 30 days Antibiotics: periop ancef Consults: PT/OT Dispo:Per PT/OT Follow-up: as scheduled below Elena Hammond MD 01/23/2021 Future Appointments Date Time Provider Department Center 02/17/2021 12:45 PM [facility] DX ROOM 2 Xray [facility] Rad 02/17/2021 1:40 PM Patrick Dumont MD [facility] ORTH 3C [facility] * Yvon Jones RN - 01/23/2021 2:37 AM EDT Problem: Patient Care Overview Goal: Plan of Care Review Outcome: Ongoing (Interventions Implemented as Appropriate) OUTCOME EVALUATION NOTE: ?? OUTCOME SUMMARY: ?? Pt has been aox4 with stable VS on RA for this shift. Pt expresses sadness and frustation and was crying at beginning of shift, she is frustrated she could not get into rehab today. Pt denies any SOB, chest pain, nausea or dizziness. No N/T endorsed to RLE. Dressing to right hip c/d/i, moisture noted in panus, skin cleansed and new interdry applied. Blisters and open blister were observed on LLE thigh, it appears the brief was too tight and caused skin irritation. Brief cut away when skin issueobserved. Pt OOB to ambulate on unit and to bathroom. Pain in RLE reported to be adequately managedwith scheduled and PRN medications. Resting between care, will continue to monitor. ?? PLAN MOVING FORWARD: ?? Pain control, mobilize, PT/OT, dc planning ?? INDIVIDUALIZED FALL PREVENTION INTERVENTIONS: ?? Patient-specific fall risk factors per assessment: [current deficits]:?Generalized weakness, pain, medications, hospitalization and double room. ?? Assistance [level of assistance required for transfers and ambulation]:?OOB with 1 assist and wrist crutches ?? Supervision [direct monitoring required during toileting and ADLs]:?1-assist ?? Surveillance [continuous indirect monitoring]:?Masimo, hourly rounding, safety checks and nurse knowledge sign-off. ?? Patient-specific fall prevention interventions for sensory deficits provided, if applicable:?No * Silvina Toscano RN - 01/22/2021 3:20 PM EDT OFFICE OF CARE MANAGEMENT Agricultural Chemist Note Chintan RICHARDSON requested RNCM to speak with patient regarding discharge plan. RNCM spoke with patient by phone, she sounded weepy. She states the hospital bed is too high and she is unable to tie her shoes, nursing and PA made aware. She was made aware of bed status, RNCM madeher aware [facility] is following, and facility will follow up with RNCM on Sunday, patient states if a bed is offered she would accept it. Primary Insurance: [employer] MANAGED MEDICARE Secondary Insurance: N/A Current referrals in place: RNCM communicated to facilities in [facility]. [facility] [address] [place] [id number] RNCM updated facility in [facility]. [facility] Address: [facility] [place], [place] [address] [place] [address] RNCM updated facility in [facility]. [facility] [address] [place] [address] ??Declined - no bed available - RNCM requested facility continue to follow. [facility] ([facility]) [address], [place] [id number] Declined - closed to admissions[place]?? [place] [address] [address] [place] [address] (tel: [phone]; Facility interested in patient, facility to follow up on Sunday??with RNCM. [facility] [address] [place], [place] [id number] RNCM updated facility in [facility] Discharge plan: rehab when bed is offered Transportation: brother Barriers Limited bed availability Plan going forward: A member of the Care Management team will continue to monitor progress, follow for continuity of care and assist with transition of care planning. Silvina Toscano NAUTICAL INSTRUMENT MECHANIC Agricultural Chemist Pgr. [phone] * Kendy Warren RN - 01/22/2021 3:03 PM EDT OUTCOME EVALUATION NOTE: OUTCOME SUMMARY: No reports of SOB, chest pain, or n/v throughout shift. Pain controlled adequately with scheduled and PRN medications, see MAR. Dressing to R hip is C/D/I. Brief/Pad in place for baseline incontinences of stool and urine, no events. Last BM 01/22/21. Pt A&Ox4 throughout shift. 1 assist to the bathroom. Interdry applied. VSS on RA. Will continue to monitor. PLAN MOVING FORWARD: Pain control Mobilize D/c planning INDIVIDUALIZED FALL PREVENTION INTERVENTIONS: Patient-specific fall risk factors per assessment: [current deficits]: Hospital environment, pain, pain medications Assistance [level of assistance required for transfers and ambulation]: 1A Supervision [direct monitoring required during toileting and ADLs]: Eyes on, hands on Surveillance [continuous indirect monitoring]: MERARY Doan, bed alarm * Suri Polo RN - 01/22/2021 9:37 AM EDTSummary: piv assess Paged [phone]/ortho to request IV be left out, per pt request. Being covered by [employer]. Await call back. * Jenny Mcfarland MD - 01/22/2021 6:42 AM EDT ORTHOPAEDIC SURGERY INPATIENT PROGRESS NOTE Patient Name: Stacy Knight Age: 70 y.o. Surgery/Issue: Right Total Hip Arthroplasty Attending: Dr. Dumont Date of surgery: 01/19/2021 SUBJECTIVE / INTERVAL HISTORY: No acute events overnight, afebrile, vitals stable. Working with PT/OT, rec dc to rehab, referrals in place. Pain well controlled. No numbness, tingling, weakness. Baseline intermittent incontinence of stool and urine, no change. Pt offers no complaints. FOCUSED REVIEW OF SYSTEMS: as above. Active Hospital Problems Diagnosis ??? S/P Right ENA, 01/19/21 (Dr Dumont) ??? Morbid obesity with BMI of 40.0-44.9, adult Resolved Hospital Problems Diagnosis Date Resolved ??? Primary osteoarthritis of right hip 01/19/2021 Active Non-Hospital Problems Diagnosis ??? 02/13/2018 S/P left total hip arthroplasty (Dr. Dumont) ??? Primary osteoarthritis of left hip ??? Pain in left hip ??? History of total right knee replacement, R TKA performed in 2001 ??? Tibial component revision L knee (11/11/2012, Bhavin) ??? Impaired renal function MEDICATIONS: ??? loperamide (Imodium A-D) capsule 2 mg ??? buPROPion XL (Wellbutrin XL) tablet 150 mg ??? lisinopriL (Zestril) tablet 10 mg ??? sodium chloride 0.9 % (flush) (BD PosiFlush Normal Saline 0.9) flush 5 mL ??? polyethylene glycoL (Miralax) packet 17 g ??? senna-docusate (Pericolace) 8.6-50 mg per tablet 2 tablet ??? bisacodyl EC (Dulcolax) tablet 10 mg ??? bisacodyL (Dulcolax) suppository 10 mg ??? acetaminophen (Tylenol) tablet 1,000 mg ??? [COMPLETED] gabapentin (Neurontin) capsule 600 mg FOLLOWED BY gabapentin (Neurontin) capsule 300 mg ??? pantoprazole EC (Protonix) tablet 20 mg ??? traMADoL (Ultram) tablet 25-50 mg ??? aspirin EC tablet 81 mg ??? BUpivacaine (pf) (Marcaine) (2.5 mg/mL) 0.25% injection ??? cloNIDine (pf) (Duraclon) (100 mcg/mL) Epidural injection ??? ketorolac (Toradol) (30 mg/mL) injection ??? povidone-iodine (Betadine Ophthalmic Prep) 5 % ophthalmic solution ??? labetaloL (Normodyne) (5 mg/mL) injection solution 10-20 mg OBJECTIVE: Temp: [36.5 ??C (97.7 ??F)-36.8 ??C (98.2 ??F)] Heart Rate: [71-97] Resp: [18-22] BP: (111-161)/(59-88) Intake/Output Summary (Last 24 hours) at 01/22/2021 0642 Last data filed at 01/22/2021 0400 Gross per 24 hour Intake 1660 ml Output 800 ml Net 860 ml Body mass index is 43.9 kg/m??. PE: General: NAD, awake/alert CV: RRR assessed peripherally Resp: Breathing comfortably on RA RLE: Dressing c/d/i. Motor intact to EHL, FHL, TA. Sensation intact in foot/calf/thigh. Brisk capillary refill distally. DP pulse 2+ Lab Results Component Value Date NA 141 01/22/2021 K 4.5 01/22/2021 CL 107 01/22/2021 CO2 29 01/22/2021 BUN 21 (H) 01/22/2021 CREATININE 0.51 (L) 01/22/2021 GLUCOSE 136 01/22/2021 CALCIUM 8.3 (L) 01/22/2021 Lab Results Component Value Date WBC 9.2 01/22/2021 HGB 9.9 (L) 01/22/2021 HCT 30.3 (L) 01/22/2021 MCV 99.0 (H) 01/22/2021 PLATELET 187 01/22/2021 Lab Results Component Value Date INR 1.1 11/05/2020 Imaging: Intra-operative Fluoro The right hip is reduced. There is no evidence of intra-op fracture. ASSESSMENT / PLAN: Stacy Knight is a 70 y.o. female 3 Days Post-Op s/p right ENA, progressing wellwith stable vitals. Discharge pending rehab placement. Activity: WBAT RLE Closure: Resorbable sutures Dressing: Mepilex x 14 days (7 days, d/c with additional mepilex) Drain: none Anticoagulation: ASA 81mg BID for 30 days Antibiotics: periop ancef Consults: PT/OT Dispo:Per PT/OT Follow-up: as scheduled below Jenny Mcfarland MD 01/22/2021 Future Appointments Date Time Provider Department Center 02/17/2021 12:45 PM [facility] DX ROOM 2 MH Xray [facility] Rad 02/17/2021 1:40 PM Patrick Dumont MD [facility] ORTH 3C [facility] * Yvon Jones RN - 01/22/2021 4:16 AM EDT Problem: Patient Care Overview Goal: Plan of Care Review Outcome: Ongoing (Interventions Implemented as Appropriate) OUTCOME EVALUATION NOTE: OUTCOME SUMMARY: Pt has been aox4 with stable VS on RA for this shift. Pt denies any SOB, pain, nausea or dizziness.No N/T endorsed to RLE. Dressing to right hip c/d/i, Pt placed a wash clothe inbetween panus and hip to catch any sweat moisture. Pt OOB to the toilet to void. Brief/diaper in place for baseline intermittent incontinence of stool and urine, no events. Resting between care, will continue to monitor. PLAN MOVING FORWARD: Pain control, PT/OT, dc planning INDIVIDUALIZED FALL PREVENTION INTERVENTIONS: Patient-specific fall risk factors per assessment: [current deficits]: Generalized weakness, pain, medications, hospitalization and double room. Assistance [level of assistance required for transfers and ambulation]: OOB with 1 assist and wristcrutches Supervision [direct monitoring required during toileting and ADLs]: 1-assist Surveillance [continuous indirect monitoring]: Masimo, hourly rounding, safety checks and nurse knowledge sign-off. Patient-specific fall prevention interventions for sensory deficits provided, if applicable: No * Yvon Jones RN - 01/21/2021 8:45 PM EDT Patient arrived to floor via bed from short stay. Patient A&Ox4, lungs clear on RA, VSS. Patient has active bowel sounds and states their last BM was on today. Patient has a dressing to right hip, noted to be clean dry and intact. Pt denies any N/T to RLE and 0 pain at this time. Pt oriented tothe room and call anderson, will continue to monitor. * Christine Boyd RN - 01/21/2021 6:11 PM EDT [facility] Short Stay Unit Transfer to Inpatient Note Inpatient orders written for the patient related to awaiting rehab bed. RN to RN report given to Steve Torres. Reason for transfer explained to the patient. All personal belongings have been sent with the patient. * Josefa Patricio, PT - 01/21/2021 2:25 PM EDT Physical Therapy Note Treatment Number PT: 2 Patient profile: Stacy Tian a 70 y.o. y/o female admitted on 01/19/[address] Patrick Dumont MD for R anterior ENA. Referred to PT per pathway. Pt had her L hip done in 2018 after which she stayed with family members. Pt planned for and is appropriate for skilled rehab ?? Patient with the following active problems: Past Medical History Past Medical History: Diagnosis Date ??? Asthma ? Bowel disease ? ibs ??? Chronic pain ? right hip and knee pain ??? COPD (chronic obstructive pulmonary disease) ? Gastroesophageal reflux ? rare use of TUMS ??? High blood pressure ? controlled with medication ??? Mental health problem ? depression ??? Transfusion history ? 1984 ??? Vertigo ? fell out of chair in past week or so ?? Past Surgical History Past Surgical History: Procedure Laterality Date ??? JOINT REPLACEMENT ? PRG RADEX HIP UNILATERAL WITH PELVIS MINIMUM 4 VIEWS Left 02/13/2018 ?? HIP INTRAOP RADIOLOGIC EXAMINATION, UNILATERAL, W PELVIS; 4+ VIEWS (WRVU 0.27) performed by Patrick Dumont MD at [facility] OR ??? PRG RADEX HIP UNILATERAL WITH PELVIS MINIMUM 4 VIEWS Right 01/19/2021 ?? HIP INTRAOP RADIOLOGIC EXAMINATION, UNILATERAL, W PELVIS; 4+ VIEWS (WRVU 0.27) performed by Patrick Dumont MD at [facility] OR ??? PRO REVISE KNEE JOINT REPLACE, ALL PARTS ?? 11/11/2012 ?? @TOTAL KNEE REVISION ARTHROPLASTY, COMPLETE performed by Carlos Delcid MD at [facility] OR ??? PRO TOTAL HIP ARTHROPLASTY Left 02/13/2018 ?? @TOTAL HIP ARTHROPLASTY, ANTERIOR APPROACH (WRVU 20.72) performed by Patrick Dumont MD at [facility] OR ??? PRO TOTAL HIP ARTHROPLASTY Right 01/19/2021 ?? TOTAL HIP ARTHROPLASTY, ANTERIOR APPROACH (WRVU 20.72) performed by Patrick Dumont MD at [facility] OR ? Social History: Pt lives alone in [place] managing on one level in her home. Reports there is one step into house (but uneven and big). Pt has a comfort height toilet btu sponge bathes only at home and takes a shower at her sabianist in a shower stall every 2-[address] and did so up until surgery. Pt has trouble managing hygiene in private area, has incontinence and wears pull ups Her brother lives in [place], did give her a ride to [facility]. Pt plans to ask him if she could staywith him for awhile after rehab. he has a recliner that he'd let me use DME: elevated toilet seat, Lofstrand crutches ?? Precautions/Special Considerations: WBAT R leg, wide ANITA during sit><stand, no SLR R, no highbridging ? Mobility and Positioning Recommendations: ?? OK to raise HOB to facilitate bed mobility, assist with R>LLE to avoid pain/strain ?? Ice to R anterior hip and thigh 4-6x/day. Elevate RLE on length montgomery pillow for comfort in bed or when in recliner ?? Pt should utilize Lofstrand crutches and S for ambulation and transfers ?? Subjective: ???I will call him tonight. I hope I can stay with him after rehab but I hear that the bed availability is limited... ?? Objective: Pt seen for cont assessment, ENA protocol exs and precaution teaching w/ transfer and gait training on level w/ Lofstrand crutches. Discussed DC Plan with skilled rehab beds scarce at this time. ?? Pain: tolerable level of pain, stiffness reported but improved after exs and ambulation, Ice applied at end of session to R hip and pt encouraged to cont to use ice several times/day at home for painand swelling ?? Skin:incision covered by silver mepilex dressing, CDI ?? Musculoskeletal: ROM/Strength: decreased R hip and decreased functionally for management of flat bed mobility. Pt needed max assist to bring legs into bed on 01/20 Sensation: wnl ?? Bed Mobility: Not assessed. Discussed benefit of sleeping in recliner 3 of which are available at her brother's home ? Transfers: Sit >< Stand: from/to recliner, from to bed. Once standing reaches for Lofstrands ? Gait: x 100 ft w/ Lofstrands with improved posture and progressing into natural 4 point alternatinggait ? Stairs: NE, pt reports one step but some difficulty with it at baseline ?? Education: patient educated on Bed mobility, Transfers, Assistive device/technique, Exercise, Positioning, Safety , Precautions/protocol, Equipment use, Gait , Home program, Role of therapy, Balance,Discharge planning and home management and needs reinforcement. understanding. Patient status, treatment, and mobility recommendations discussed with nursing. ? Assessment: Pt is now POD # 2 R anterior ENA presenting OOB in recliner reporting tolerable R hip pain when performing ENA exs, transferring and ambulating. She conts to be able to transfer and ambulate w/ Lofstrands unassisted and was able to progress walking distance today with safe technique w/ improved posture and no appreciable limp. If her brother would agree, pt could safely manage at his home, one level, no steps and she can sleep in a recliner which is close to the bathroom. RNCM awareof both DC possibilities ?? Discharge Recommendations: Based on the current findings, Anticipated Discharge Disposition (PT): inpatient rehabilitation facility, long-term facility vs home to brother's and home PT/OT when medically ready for hospital discharge. ?? Consult Recommendations: No other consults recommended at this time. ?? Equipment needs: recliner ?? Cleared by PT for DC: No ?? Goals: To be achieved by 02/10/21 ?? 1. Pt. to demonstrate knowledge of safety limitations and precautions and will appropriately request assistance for functional activities and to mobilize. 2. Pt. to demonstrate understanding of appropriate ENA exercises. 3. Pt. to perform flat bed mobility, getting OOB toward the R as at home w/ or w/o use of leglifterto assist RLE 4. Pt. to perform sit><stand transfers with modified independenceusing bilateral forearm crutches. 5. Pt. to ambulate 100 + feet with modified independence using a bilateral forearm crutches. 6. Pt. to ambulate up/down one large platform step using forearm crutches with CGA. 7. Family or caregiver to demonstrate understanding of therapeutic interventions to support the care of the patient. 8. Pt will perform appropriate exs, ADL tasks, mobilize and ambulate with tolerable level of pain and stable vital signs ?? Plan: Pt to bed seen 2-4x/wk for Bed mobility, Transfers, Assistive device/technique, Exercise, Positioning, Safety , Precautions/protocol, Equipment use, Gait , Home program, Role of therapy, Balance, Discharge planning and home management Weekend Plan: Safe to mobilize/ambulate 100 + ft w/ Loftstrand crutches 3-4x/day. Please page weekend staff PT should any PT needs arise. Time IN / OUT: 6454-9366 Total Minutes, Physical Therapy: 40 Billing Code: functional activities, therex, home management JOSEFA PATRICIO PT Pager: [phone] Physical Therapy Inpatient Rehabilitation Department * Karen Cheng RN - 01/21/2021 1:19 PM EDT This author met with patient at the bedside and discussed expanding inpatient rehabilitation facility search. Informed that there is no bed availability in the facilities the referrals originally were sent to. Patient is in the agreement to expand the search to: [place] [address] [facility] Address: [address] [place] [address] [place] please send referrals with all supporting documentation. * Ricardo Albright OT - 01/21/2021 10:43 AM EDT Occupational Therapy Treatment Note Treatment Number OT: 2 Patient Dx: Stacy Knight is a 70 y.o. female admitted on 01/19/2021 for R ENA. Social History: Patient lives alone. Home Setup: Patient is able to live on one level with one step with rail. Patient uses a walk in shower at a sabianist for showering. DME: cane, raised toilet seat, bail bondsman, long handled sponge, forearm crutches Baseline ADL/Mobility: Patient reports she is able to dress and sponge bathe independently. Patientuses sabianist shower and her friend assists with supervision when shower on a 'fold up' chair. Patient takes [employer] for transportation. She does her own grocery shopping. Patient uses forearm crutches formobility and reports 2 falls in the past month. Patient reports she was bending to pick something up on the floor and fell forward during her last fall. Patient goes to the laundry mat for laundry. Patient drives. ?? Precautions/Special Considerations: Fall, ENA standard precautions, WBAT, high risk skin breakdown S: I need to go to rehab. I can't put on my shoe. Someone gets my laundry and puts it in my car. I usually kick my trash to where it needs to be. I take small bags at a time after I go to the food shelf. O: Patient seen for skilled OT treatment, and demonstrated the following: ?? Self-care: ?? DRESSING: Patient able to don shoe Min A (assistance to tie shoe). Suggested buying slip on shoes or use of elastic shoe laces. Patient declined ability to use slip on shoes and somewhat receptiveto use of elastic shoe laces. Patient able to don pants with bail bondsman SBA. Patient dressing UB independently sitting in cardiac chair. ?? TOILETING: Patient performing toileting for bowels in sitting Mod I holding grab bar and SBA forpants pull-up. ?? Functional Mobility: ?? Patient mobilize in/out of bathroom on/off toilet about 50 feet x2 with forearm crutches SBA. ?? Cognition: ?? Behavior / Mood: alert and cooperative ?? Alert and oriented to: person, place and time ?? Follows commands: 100% of the time ?? Attention: WFL ?? Safety awareness: cues for safety ?? Endurance:Fair ?? Vitals: 98% Pain: Soreness with certain movements in hip Education: Pt/family/caregiver education ongoing regarding: Role of occupational therapy/rehabilitation, Transfers, Assistive device/technique, Adaptive equipment training, ADL, Safety, Functional Mobility, Balance, Recommendations and Discharge planning. Staff Communication: Patient status, treatment, and mobility recommendations discussed with nursing/other staff. ASSESSMENT: Patient seen for ADL and functional mobility. Patient currently SBA for ADLS and functional mobility except for tying shoes. Patient has adapted some house hold activities by breaking them down at home, however she could use support with grocery shopping and laundry at laundry mat. Patient eager to go to rehab. Pt will benefit from ongoing therapeutic interventions to achieve pt's andtherapy goals Equipment needs at discharge: to be determined (Pt has AE for home) Anticipated Discharge Disposition: inpatient rehabilitation facility (supervision needed and assistance for IADLs) Daily schedule / Staff Recommendations: Goals: To be achieved by 02/03/21 (PROGRESSING) Patient will stand at sink level with Mod I x10 min for ADLs. Patient will dress lower body indep with adaptive equipment prn. Patient will perform simple kitchen mgt with appropriate assistive device as needed and Mod I Patient will ambulate to the bathroom with Mod I, assistive device as needed. Patient will demonstrate energy conservation principals with all ADLs indep. Patient will sponge bathe sink level Mod I with AE. Patient will perform toilet hygiene Mod I with AE. Therapy Frequency (OT): 2-3 times/wk Total Minutes, Occupational Therapy: 41 (10:03 to 10:43 TF) Pager: [phone] RICARDO ALBRIGHT, OT 01/21/2021 Occupational Therapy Rehabilitation Department * Nikos Gomes MD - 01/21/2021 5:37 AM EDT ORTHOPAEDIC SURGERY INPATIENT PROGRESS NOTE Patient Name: Stacy Knight Age: 70 y.o. Surgery/Issue: Right Total Hip Arthroplasty Attending: Dr. Dumont Date of surgery: 01/19/2021 SUBJECTIVE / INTERVAL HISTORY: Ms Knight is doing fine this morning. She worked with PT yesterday and they recommend rehab or SNF. She has difficulty getting out of bed by herself. She is concerned about recent loose bowel movements after eating dairy. Hip is comfortable. FOCUSED REVIEW OF SYSTEMS: as above. Active Hospital Problems Diagnosis ??? S/P Right ENA, 01/19/21 (Dr Dumont) ??? Morbid obesity with BMI of 40.0-44.9, adult Resolved Hospital Problems Diagnosis Date Resolved ??? Primary osteoarthritis of right hip 01/19/2021 Active Non-Hospital Problems Diagnosis ??? 02/13/2018 S/P left total hip arthroplasty (Dr. Dumont) ??? Primary osteoarthritis of left hip ??? Pain in left hip ??? History of total right knee replacement, R TKA performed in 2001 ??? Tibial component revision L knee (11/11/2012, [facility]) ??? Impaired renal function MEDICATIONS: ??? loperamide (Imodium A-D) capsule 2 mg ??? buPROPion XL (Wellbutrin XL) tablet 150 mg ??? lisinopriL (Zestril) tablet 10 mg ??? sodium chloride 0.9 % (flush) (BD PosiFlush Normal Saline 0.9) flush 5 mL ??? polyethylene glycoL (Miralax) packet 17 g ??? senna-docusate (Pericolace) 8.6-50 mg per tablet 2 tablet ??? bisacodyl EC (Dulcolax) tablet 10 mg ??? bisacodyL (Dulcolax) suppository 10 mg ??? acetaminophen (Tylenol) tablet 1,000 mg ??? [COMPLETED] gabapentin (Neurontin) capsule 600 mg FOLLOWED BY gabapentin (Neurontin) capsule 300 mg ??? ketorolac (Toradol) (15 mg/mL) injection 15 mg ??? celecoxib (CeleBREX) capsule 200 mg ??? dexamethasone (Decadron) tablet 4 mg ??? pantoprazole EC (Protonix) tablet 20 mg ??? traMADoL (Ultram) tablet 25-50 mg ??? aspirin EC tablet 81 mg ??? BUpivacaine (pf) (Marcaine) (2.5 mg/mL) 0.25% injection ??? cloNIDine (pf) (Duraclon) (100 mcg/mL) Epidural injection ??? ketorolac (Toradol) (30 mg/mL) injection ??? povidone-iodine (Betadine Ophthalmic Prep) 5 % ophthalmic solution ??? labetaloL (Normodyne) (5 mg/mL) injection solution 10-20 mg OBJECTIVE: Temp: [36.7 ??C (98.1 ??F)-36.8 ??C (98.2 ??F)] Heart Rate: [84] Resp: [16-20] BP: (106-142)/(52-67) Intake/Output Summary (Last 24 hours) at 01/21/2021 0537 Last data filed at 01/21/2021 0027 Gross per 24 hour Intake 5 ml Output 900 ml Net -895 ml Body mass index is 43.9 kg/m??. PE: General: NAD, awake/alert CV: RRR assessed peripherally Resp: Breathing comfortably on RA RLE: Dressing c/d/i. Motor intact to EHL, FHL, TA. Sensation intact in foot/calf/thigh. Brisk capillary refill distally. DP pulse 2+ Lab Results Component Value Date NA 143 01/21/2021 K 4.5 01/21/2021 CL 108 (H) 01/21/2021 CO2 27 01/21/2021 BUN 27 (H) 01/21/2021 CREATININE 0.90 01/21/2021 GLUCOSE 194 01/21/2021 CALCIUM 8.6 01/21/2021 Lab Results Component Value Date WBC 13.8 (H) 01/21/2021 HGB 9.9 (L) 01/21/2021 HCT 30.2 (L) 01/21/2021 MCV 98.1 (H) 01/21/2021 PLATELET 176 01/21/2021 Lab Results Component Value Date INR 1.1 11/05/2020 Imaging: Intra-operative Fluoro The right hip is reduced. There is no evidence of intra-op fracture. ASSESSMENT / PLAN: Stacy Knight is a 70 y.o. female 2 Days Post-Op s/p right ENA, progressing wellwith stable vitals. Discharge pending rehab placement. Encouraged PO fluids. - Loperamide PRN - Continue PT - Dispo pending Activity: WBAT RLE Closure: Resorbable sutures Dressing: Mepilex x 14 days (7 days, d/c with additional mepilex) Drain: none Anticoagulation: ASA 81mg BID for 30 days Antibiotics: periop ancef Consults: PT/OT Dispo:Per PT/OT Follow-up: as scheduled below Nikos Gomes MD 01/21/2021 Future Appointments Date Time Provider Department Center 02/17/2021 12:45 PM [facility] DX ROOM 2 MH Xray [facility] Rad 02/17/2021 1:40 PM Patrick Dumont MD [facility] ORTH 3C [facility] * Asha Shipley RN - 01/21/2021 5:12 AM EDT Illness Severity [x] Stable [] Watcher [] Unstable Patient Summary Reason for admission: R anterior ENA Relevant PMH: MARTHA, L hip 2018 Pain assessment/management: Sced. Tylenol Patient up to BR x 2, BM x2. Voiding without difficulty. Diet: Regular [x] Tolerating full PO [] Ready to advance N/V: [] Yes [] Plan [x] No : Indwelling Urinary Catheter: [] Yes [x] No Mobility: [] Back to baseline [] Needs to mobilize [x] Needs assistance: 1 Assist w/walker Action List Pain mgmt Encourage ambulation - WBAT R Leg Encourage independence w/ADL's Discharge Plan: skilled rehab [] Ride arranged [] Appropriate for discharge lounge [] Discharge teaching complete [x] program director/air personality / equipment needed * Asha Shipley, KATINA - 01/21/2021 4:33 AM EDT Illness Severity [x] Stable [] Watcher [] Unstable Patient Summary Reason for admission: R anterior ENA Relevant PMH: MARTHA, L hip 2017 Pain assessment/management: Sched. Tylenol Up to bathroom x 2 overnight, BM x2, loose. Lomotil given x1 per patient request this am. Voiding without difficulty. Diet: Regular [x] Tolerating full PO [] Ready to advance N/V: [] Yes [] Plan [x] No : Indwelling Urinary Catheter: [] Yes [x] No Mobility: [] Back to baseline [] Needs to mobilize [x] Needs assistance: 1 Assist w/own crutches Action List Pain mgmt Encourage ambulation - WBAT R Leg Encourage independence w/ADL's Discharge Plan: skilled rehab [] Ride arranged [] Appropriate for discharge lounge [] Discharge teaching complete [x] program director/air personality / equipment needed * Josefa Patricio PT - 01/20/2021 3:22 PM EDTSummary: PT/OT eval. Pt lives alone and needing max assist of legs for bed mobility, Recommend & pt agreeable to skilled rehab &then stay with brother awhile.. Physical Therapy Evaluation Patient profile: Stacy Tian a 70 y.o. y/o female admitted on 01/19/[address] Patrick Dumont MD for R anterior ENA. Referred to PT per pathway. Pt had her L hip done in 2018 after which she stayed with family members. Pt planned for and is appropriate for skilled rehab Patient with the following active problems: Past Medical History: Diagnosis Date ??? Asthma ??? Bowel disease ibs ??? Chronic pain right hip and knee pain ??? COPD (chronic obstructive pulmonary disease) ??? Gastroesophageal reflux rare use of TUMS ??? High blood pressure controlled with medication ??? Mental health problem depression ??? Transfusion history 1983 ??? Vertigo fell out of chair in past week or so Past Surgical History: Procedure Laterality Date ??? JOINT REPLACEMENT ??? PRG RADEX HIP UNILATERAL WITH PELVIS MINIMUM 4 VIEWS Left 02/13/2018 HIP INTRAOP RADIOLOGIC EXAMINATION, UNILATERAL, W PELVIS; 4+ VIEWS (WRVU 0.27) performed by Patrick Dumont MD at [facility] MAIN OR ??? PRG RADEX HIP UNILATERAL WITH PELVIS MINIMUM 4 VIEWS Right 01/19/2021 HIP INTRAOP RADIOLOGIC EXAMINATION, UNILATERAL, W PELVIS; 4+ VIEWS (WRVU 0.27) performed by Patrick Dumont MD at [facility] MAIN OR ??? PRO REVISE KNEE JOINT REPLACE, ALL PARTS 11/11/2012 @TOTAL KNEE REVISION ARTHROPLASTY, COMPLETE performed by Carlos Delcid MD at [facility] MAIN OR ??? PRO TOTAL HIP ARTHROPLASTY Left 02/13/2018 @TOTAL HIP ARTHROPLASTY, ANTERIOR APPROACH (WRVU 20.72) performed by Patrick Dumont MD at [facility] MAIN OR ??? PRO TOTAL HIP ARTHROPLASTY Right 01/19/2021 TOTAL HIP ARTHROPLASTY, ANTERIOR APPROACH (WRVU 20.72) performed by Patrick Dumont MD at [facility] [place] Social History: Pt lives alone in [place] managing on one level in her home. Reports there is one step into house (but uneven and big). Pt has a comfort height toilet btu sponge bathes only at home and takes a shower at her sabianist in a shower stall every 2-[address] and did so up until surgery. Pt has trouble managing hygiene in private area, has incontinence and wears pull ups Her brother lives in [place], did give her a ride to [facility]. Pt plans to ask him if she could staywith him for awhile after rehab. he has a recliner that he'd let me use DME: elevated toilet seat, Lofstrand crutches Precautions/Special Considerations: WBAT R leg, wide ANITA during sit><stand, no SLR R, no highbridging Mobility and Positioning Recommendations: ?? OK to raise HOB to facilitate bed mobility, assist with R>LLE to avoid pain/strain ?? Ice to R anterior hip and thigh 4-6x/day. Elevate RLE on length montgomery pillow for comfort in bed or when in recliner ?? Pt should utilize Lofstrand crutches and S for ambulation and transfers Subjective: ???I haven't asked him yet but i'll call him tonight to ask if I could stay with him for awhile after I get out of Rehab?? Objective: Pt seen for initial eval, ENA protocol exs and precaution teaching w/ bed mobility, transfers and gait on level w/ Lofstrand crutches. Reviewed home management and DC Plan with Pain: tolerable level of pain, stiffness reported but improved after exs and ambulation, Ice applied at end of session to R hip and pt encouraged to cont to use ice several times/day at home for painand swelling Skin:incision covered by silver mepilex dressing, CDI Musculoskeletal: ROM/Strength: decreased R hip amd decreased functionally for management of flat bed mobility. Pt needed max assist to bring legs into bed Sensation: wnl Bed Mobility: Sit>supine with max assist of legs w/ pt grossly unable to use leglifter to assistRLE. She sleeps in a low flat double bed but describes clutter and very little wxtra toom in bed room. She does not have a recliner (did mention possibly renting one) Transfers: Sit >< Stand: from/to recliner, from to bed. Once standing reaches for Lofstrands Gait: X 30 ft x 2 w/ B/L Lofstrand crutches WBAT RLE w/ markedly flexed posture. Encouraged ^ upright and had pt practice standing up straighter by standing w/ her back against the wall. When amb pt reported fatigue in the back of her legs when working on more erect posture Stairs: NE, pt reports one step but some difficulty with it at baseline Education: patient educated on Bed mobility, Transfers, Assistive device/technique, Exercise, Positioning, Safety , Precautions/protocol, Equipment use, Gait , Home program, Role of therapy, Balance,Discharge planning and home management and needs reinforcement. understanding. Patient status, treatment, and mobility recommendations discussed with nursing. Assessment: Pt is now POD # 1 R anterior ENA presenting with present but tolerable R hip pain w/ decreased ROM and strength R hip as well as in general functionally and significantly impacting bed mobility and ADL. She is able to transfer and ambulate w/ Lofstrands unassisted reporting that she hasbeen using them for about a year. Pt was indep in all mobility at baseline, able to get in and OO flat bed w/o problem and was driving, doing laundry in a laundramat but did need helpbreing laundry and groceries into the house. Pt understands that she will benefit from ongoing in-optics manufacturing technician rehab with RNCM to place referrals to same. Discharge Recommendations: Based on the current findings, Anticipated Discharge Disposition (PT): inpatient rehabilitation facility, long-term facility when medically ready for hospital discharge. Consult Recommendations: No other consults recommended at this time. Equipment needs: recliner rental Cleared by PT for DC: No Goals: To be achieved by 02/10/21 1. Pt. to demonstrate knowledge of safety limitations and precautions and will appropriately request assistance for functional activities and to mobilize. 2. Pt. to demonstrate understanding of appropriate ENA exercises. 3. Pt. to perform flat bed mobility, getting OOB toward the R as at home w/ or w/o use of leglifterto assist RLE 4. Pt. to perform sit><stand transfers with modified independenceusing bilateral forearm crutches. 5. Pt. to ambulate 100 + feet with modified independence using a bilateral forearm crutches. 6. Pt. to ambulate up/down one large platform step using forearm crutches with CGA. 7. Family or caregiver to demonstrate understanding of therapeutic interventions to support the care of the patient. 8. Pt will perform appropriate exs, ADL tasks, mobilize and ambulate with tolerable level of pain and stable vital signs Plan: Pt to bed seen 3-5x/wk for Bed mobility, Transfers, Assistive device/technique, Exercise, Positioning, Safety , Precautions/protocol, Equipment use, Gait , Home program, Role of therapy, Balance, Discharge planning and home management JOSEFA PATRICIO, PT Pager: [phone] Physical Therapy Inpatient Rehabilitation Department Time IN / OUT: 2 visits [phone]- [phone]. [phone] 90 mins, mod eval, therex, functional activities, home management 2016 PT Evaluation Code Rationale: ?? Diagnosis & Pertinent Co-Morbidities, personal factors, and present illness affecting Plan of Care: (see above); Additional personal factors or co- morbidities that impact plan: ?? Total # of Factors: 0 1-2 3+ x ?? Examination of body system impairments, functional limitations and behaviors, and/or participation restrictions. Addressing 1-2 elements Addressing 3 + elements Addressing 4 + elements x ?? Clinical presentation: See assessment above. Stable/Uncomplicated Evolving/Fluctuating Symptoms Unstable/Unpredictable X, pain R hip, functional weakness w/ max assist needed for bed mobility. Stooped posture when ambulating w/ Lofstrands. Cannot use walker as it does not fit into her home ?? Clinical decision making of moderate complexity based on pt's functional performance as outlinedin this evaluation. * Karen Cheng RN - 01/20/2021 3:15 PM EDT Based on discussions with the multi-disciplinary healthcare team, the patient would benefit from inpatient rehabilitation level of care at discharge. ?? I have met with the patient to discuss discharge planning needs. I have provided the [facility], Office of Care Management letter from the Internal Consultant pertaining to rehab referrals. I have also provided a letter describing our affiliations within the [facility] and educatedthem about their right to choose where referrals are. ?? Provided patient with [facility] Star Quality Rating for SNF, LTAC and/or IRF hand out. ?? I reviewed the different levels of rehab including SNF, swing, acute and LTAC with the patient. ?? The patient has been provided a list of facilities within their preferred geographic area. ?? I have requested that the patient provide at least three choices for referral. ?? The patient have requested referrals to: 1. [facility] [address] [place] [address] ? 2. [facility] ([facility]) [address] [place] [address] ?? [phone] ?? 3. [place] [address] [place] [address] ?? (tel: [phone]; ?? 4.[facility] [address] [place] [address] ? Expected date of discharge: 01/21/2021 Note routed to Hydraulic Technician who will communicate referrals to facilities and provide any required information. * Ricardo Albright OT - 01/20/2021 11:37 AM EDT Occupational Therapy Evaluation Patient profile: Stacy Knight is a 70 y.o. female admitted on 01/19/2021 for R ENA. Past Medical History: Diagnosis Date ??? Asthma ??? Bowel disease ibs ??? Chronic pain right hip and knee pain ??? COPD (chronic obstructive pulmonary disease) ??? Gastroesophageal reflux rare use of TUMS ??? High blood pressure controlled with medication ??? Mental health problem depression ??? Transfusion history 1983 ??? Vertigo fell out of chair in past week or so Past Surgical History: Procedure Laterality Date ??? JOINT REPLACEMENT ??? PRG RADEX HIP UNILATERAL WITH PELVIS MINIMUM 4 VIEWS Left 02/13/2018 HIP INTRAOP RADIOLOGIC EXAMINATION, UNILATERAL, W PELVIS; 4+ VIEWS (WRVU 0.27) performed by Patrick Dumont MD at [facility] MAIN OR ??? PRG RADEX HIP UNILATERAL WITH PELVIS MINIMUM 4 VIEWS Right 01/19/2021 HIP INTRAOP RADIOLOGIC EXAMINATION, UNILATERAL, W PELVIS; 4+ VIEWS (WRVU 0.27) performed by Patrick Dumont MD at [facility] MAIN OR ??? PRO REVISE KNEE JOINT REPLACE, ALL PARTS 11/11/2012 @TOTAL KNEE REVISION ARTHROPLASTY, COMPLETE performed by Carlos Delcid MD at [facility] MAIN OR ??? PRO TOTAL HIP ARTHROPLASTY Left 02/13/2018 @TOTAL HIP ARTHROPLASTY, ANTERIOR APPROACH (WRVU 20.72) performed by Patrick Dumont MD at [facility] MAIN OR ??? PRO TOTAL HIP ARTHROPLASTY Right 01/19/2021 TOTAL HIP ARTHROPLASTY, ANTERIOR APPROACH (WRVU 20.72) performed by Patrick Dumont MD at [facility] [place] Social History: Patient lives alone. Home Setup: Patient is able to live on one level with one step with rail. Patient uses a walk in shower at a sabianist for showering. DME: cane, raised toilet seat, bail bondsman, long handled sponge, forearm crutches Baseline ADL/Mobility: Patient reports she is able to dress and sponge bathe independently. Patientuses sabianist shower and her friend assists with supervision when shower on a 'fold up' chair. Patient takes [employer] for transportation. She does her own grocery shopping. Patient uses forearm crutches formobility and reports 2 falls in the past month. Patient reports she was bending to pick something up on the floor and fell forward during her last fall. Patient goes to the laundry mat for laundry. Patient drives. Precautions/Special Considerations: Fall, ENA standard precautions, WBAT, high risk skin breakdown Subjective: I did a bunch of laundry before I came here. I was planning to go to rehab. Objective: Seen today for OT evaluation. Cognitive Status/Behavior: ?? Behavior / Mood: alert and cooperative ?? Alert and oriented to: person, place and time ?? Follows commands: 100% of the time ?? Attention: WFL ?? Safety awareness: cues for safety Vision & Perception: ?? corrective lenses coding advisor Communication: WFL Range of motion, strength, coordination: Hand dominance: right Bilateral UEs are within functional limitations LE limitations: R THS Sensation: Intact Activities of Daily Living: Self-feeding: Independent after set-up Dressing: Patient able to use bail bondsman to don pants CTG A for stand-hike. Patient able to don socks independently sitting in recliner chair. Patient needing Min A for LB dressing due to unable to don tennis shoes. Toileting: Transfer: CTG A with forearm crutches Hygiene: Issued bottom wiper with instruction. Functional Mobility: Sit to stand: CTG A Ambulation: CTG A few steps close to cardiac chair Stand to sit: CTG A Balance: Sitting balance: Good Standing balance:Fair Vitals: WFL Pain: 4/10 Skin: incision intact Education: patient have been educated on Role of occupational therapy/rehabilitation, Transfers, Assistive device/technique, Adaptive equipment training, ADL, Safety, Precautions/Protocol, FunctionalMobility, Balance, Recommendations and Discharge planning and needs reinforcement. understanding. Patient status, treatment, and mobility recommendations discussed with nursing. Assessment: Pt has been seen for occupational therapy evaluation. Stacy Knight presents with the following performance skill deficits and client factors: increased pain, decreased activity tolerance, decreased flexibility/ROM, decreased sitting/standing balance, precautions/bracing and compromised mobility status. These performance deficits have led to activity limitations and participation restrictions in the following areas of occupation: dressing, bathing, toileting, transfers/mobility, home management, leisure and community mobility. Pt with decrease functional standing balance along with difficultyreaching feet for LB dressing with need of assistance for higher level IADLS. She has limited support and is receptive to going to a rehab facility after d/c with h/o falls. Pt would benefit from further inpatient OT interventions to address performance deficits and maximize participation and independence with occupations of daily living. Equipment needs at discharge: TBD Anticipated Discharge Disposition (OT): inpatient rehabilitation facility Other Recommendations: ?? Utilize upright chair position using bed features or transfer to recliner chair as appropriate with CTG A with forearm crutches, ambulate as tolerated ?? Encourage participation in ADL's by providing set up A on tray table and physical assist only asneeded Other Recommendations: No other consults recommended at this time Goals: To be achieved by 02/03/21. Patient will stand at sink level with Mod I x10 min for ADLs. Patient will dress lower body indep with adaptive equipment prn. Patient will perform simple kitchen mgt with appropriate assistive device as needed and Mod I Patient will ambulate to the bathroom with Mod I, assistive device as needed. Patient will demonstrate energy conservation principals with all ADLs indep. Patient will sponge bathe sink level Mod I with AE. Patient will perform toilet hygiene Mod I with AE. Plan: OT: Therapy Frequency (OT): 2-3 times/wk Planned OT interventions: Role of occupational therapy/rehabilitation, Transfers, Assistive device/technique, Adaptive equipment training, ADL, Safety, Functional Mobility, Balance, Recommendations and Discharge planning. Total Minutes, Occupational Therapy: 43 (10:54-11:37) 2017 OT Evaluation Code Rationale: ?? Diagnosis & Pertinent Co-Morbidities affecting Plan of Care: see PMHx ?? Occupational Profile & Client History: Brief Expanded Extensive x ?? Assessment of Occupational Performance: 1-3 performance deficits 3-5 performance deficits x 5 + performance deficits ?? Clinical Decision Making: Low Moderate High x Clinical decision making of moderate complexity using standardized patient assessment instrument and measurable assessment of functional outcome. Pager: [phone] RICARDO ALBRIGHT OT 01/20/2021 Occupational Therapy Rehabilitation Department * Nikos Gomes MD - 01/20/2021 6:26 AM EDT ORTHOPAEDIC SURGERY INPATIENT PROGRESS NOTE Patient Name: Stacy Knight Age: 70 y.o. Surgery/Issue: Right Total Hip Arthroplasty Attending: Dr. Dumont Date of surgery: 01/19/2021 SUBJECTIVE / INTERVAL HISTORY: MS Knight is doing well this morning. She has not mobilized yet. She is voiding adequately. Tolerating PO diet. Pain well controlled, denies f/c, n/v, cp/sob. FOCUSED REVIEW OF SYSTEMS: as above. Active Hospital Problems Diagnosis ??? S/P Right ENA, 01/19/21 (Dr Dumont) ??? 02/13/2018 S/P left total hip arthroplasty (Dr. Dumont) Resolved Hospital Problems Diagnosis Date Resolved ??? Primary osteoarthritis of right hip 01/19/2021 Active Non-Hospital Problems Diagnosis ??? Morbid obesity with BMI of 40.0-44.9, adult ??? Primary osteoarthritis of left hip ??? Pain in left hip ??? History of total right knee replacement, R TKA performed in 2001 ??? Tibial component revision L knee (11/11/2012, Bhavin) ??? Impaired renal function MEDICATIONS: ??? buPROPion XL (Wellbutrin XL) tablet 150 mg ??? lisinopriL (Zestril) tablet 10 mg ??? sodium chloride 0.9 % (flush) (BD PosiFlush Normal Saline 0.9) flush 5 mL ??? polyethylene glycoL (Miralax) packet 17 g ??? senna-docusate (Pericolace) 8.6-50 mg per tablet 2 tablet ??? bisacodyl EC (Dulcolax) tablet 10 mg ??? bisacodyL (Dulcolax) suppository 10 mg ??? acetaminophen (Tylenol) tablet 1,000 mg ??? gabapentin (Neurontin) capsule 600 mg FOLLOWED BY [START ON 01/21/2021] gabapentin (Neurontin) capsule 300 mg ??? ketorolac (Toradol) (15 mg/mL) injection 15 mg ??? celecoxib (CeleBREX) capsule 200 mg ??? dexamethasone (Decadron) tablet 4 mg ??? pantoprazole EC (Protonix) tablet 20 mg ??? ceFAZolin (Ancef) 2 g in dextrose 5% 100 mL infusion ??? traMADoL (Ultram) tablet 25-50 mg ??? aspirin EC tablet 81 mg ??? BUpivacaine (pf) (Marcaine) (2.5 mg/mL) 0.25% injection ??? cloNIDine (pf) (Duraclon) (100 mcg/mL) Epidural injection ??? ketorolac (Toradol) (30 mg/mL) injection ??? povidone-iodine (Betadine Ophthalmic Prep) 5 % ophthalmic solution ??? labetaloL (Normodyne) (5 mg/mL) injection solution 10-20 mg OBJECTIVE: Temp: [36 ??C (96.8 ??F)-36.6 ??C (97.9 ??F)] Heart Rate: [59-86] Resp: [11-18] BP: (107-176)/(53-85) Intake/Output Summary (Last 24 hours) at 01/20/2021 0626 Last data filed at 01/20/2021 0400 Gross per 24 hour Intake 1396.85 ml Output 550 ml Net 846.85 ml Body mass index is 43.9 kg/m??. PE: General: NAD, awake/alert CV: RRR assessed peripherally Resp: Breathing comfortably on RA RLE: Dressing c/d/i. Motor intact to EHL, FHL, TA. Sensation intact in foot/calf/thigh. Brisk capillary refill distally. DP pulse 2+ Lab Results Component Value Date NA 137 01/20/2021 K 5.0 01/20/2021 CL 103 01/20/2021 CO2 26 01/20/2021 BUN 16 01/20/2021 CREATININE 0.68 (L) 01/20/2021 GLUCOSE 167 01/20/2021 CALCIUM 8.5 01/20/2021 Lab Results Component Value Date WBC 14.0 (H) 01/20/2021 HGB 11.4 (L) 01/20/2021 HCT 34.7 (L) 01/20/2021 MCV 96.1 (H) 01/20/2021 PLATELET 214 01/20/2021 Lab Results Component Value Date INR 1.1 11/05/2020 Imaging: Intra-operative Fluoro The right hip is reduced. There is no evidence of intra-op fracture. ASSESSMENT / PLAN: Stacy Knight is a 70 y.o. female 1 Day Post-Op s/p right ENA, progressing well with stable vitals. Discharge pending evaluation by PT/OT. Activity: WBAT RLE Closure: Resorbable sutures Dressing: Mepilex x 14 days (7 days, d/c with additional mepilex) Drain: none Anticoagulation: ASA 81mg BID for 30 days Antibiotics: periop ancef Consults: PT/OT Dispo:Per PT/OT Follow-up: as scheduled below Nikos Gomes MD 01/20/2021 Future Appointments Date Time Provider Department Center 02/17/2021 12:45 PM [facility] DX ROOM 2 Xray [facility] Rad 02/17/2021 1:40 PM Patrick Dumont MD [facility] ORTH 3C [facility] * Ace Peng RN - 01/20/2021 2:09 AM EDT Patient arrived to unit from PACU around 2200. Vital signs stable. Alert and oriented. Patient ableto ambulate to bathroom to void with no issues. Pain controlled with scheduled meds. Call anderson within reach and patient ringing appropriately. Will continue to monitor. * Steven Louis MD - 01/19/2021 8:15 PM EDT ORTHOPAEDIC SURGERY INPATIENT PROGRESS NOTE Patient Name: Stacy Knight Age: 70 y.o. Surgery/Issue: Right Total Hip Arthroplasty Attending: Dr. Dumont Date of surgery: 01/19/2021 SUBJECTIVE / INTERVAL HISTORY: Pain well controlled. Denies CP, SOB, nausea, vomiting, numbness/weakness. Has had some water to drink since awakening from anesthesia. In good spirits. Curious as to the amount of limb lengthening performed with her ENA. FOCUSED REVIEW OF SYSTEMS: as above. Active Hospital Problems Diagnosis ??? S/P Right ENA, 01/19/21 (Dr Dumont) ??? 02/13/2018 S/P left total hip arthroplasty (Dr. Dumont) Resolved Hospital Problems Diagnosis Date Resolved ??? Primary osteoarthritis of right hip 01/19/2021 Active Non-Hospital Problems Diagnosis ??? Morbid obesity with BMI of 40.0-44.9, adult ??? Primary osteoarthritis of left hip ??? Pain in left hip ??? History of total right knee replacement, R TKA performed in 2001 ??? Tibial component revision L knee (11/11/2012, Bhavin) ??? Impaired renal function MEDICATIONS: ??? [START ON 01/20/2021] buPROPion XL (Wellbutrin XL) tablet 150 mg ??? [START ON 01/20/2021] lisinopriL (Zestril) tablet 10 mg ??? sodium chloride 0.9 % (flush) (BD PosiFlush Normal Saline 0.9) flush 5 mL ??? polyethylene glycoL (Miralax) packet 17 g ??? senna-docusate (Pericolace) 8.6-50 mg per tablet 2 tablet ??? bisacodyl EC (Dulcolax) tablet 10 mg ??? bisacodyL (Dulcolax) suppository 10 mg ??? acetaminophen (Tylenol) tablet 1,000 mg ??? gabapentin (Neurontin) capsule 600 mg FOLLOWED BY [START ON 01/21/2021] gabapentin (Neurontin) capsule 300 mg ??? ketorolac (Toradol) (15 mg/mL) injection 15 mg ??? celecoxib (CeleBREX) capsule 200 mg ??? [START ON 01/20/2021] dexamethasone (Decadron) tablet 4 mg ??? [START ON 01/20/2021] pantoprazole EC (Protonix) tablet 20 mg ??? ceFAZolin (Ancef) 2 g in dextrose 5% 100 mL infusion ??? traMADoL (Ultram) tablet 25-50 mg ??? [START ON 01/20/2021] aspirin EC tablet 81 mg ??? BUpivacaine (pf) (Marcaine) (2.5 mg/mL) 0.25% injection ??? cloNIDine (pf) (Duraclon) (100 mcg/mL) Epidural injection ??? ketorolac (Toradol) (30 mg/mL) injection ??? povidone-iodine (Betadine Ophthalmic Prep) 5 % ophthalmic solution ??? labetaloL (Normodyne) (5 mg/mL) injection solution 10-20 mg OBJECTIVE: Temp: [36 ??C (96.8 ??F)-36.5 ??C (97.7 ??F)] Heart Rate: [59-86] Resp: [11-18] BP: (107-176)/(53-85) Intake/Output Summary (Last 24 hours) at 01/19/2021 2348 Last data filed at 01/19/2021 2317 Gross per 24 hour Intake 1396.85 ml Output 550 ml Net 846.85 ml Body mass index is 43.9 kg/m??. PE: General: NAD, awake/alert CV: RRR assessed peripherally Resp: Breathing comfortably on RA RLE: Dressing c/d/i. Motor intact to EHL, FHL, TA. Sensation intact in foot/calf/thigh. Brisk capillary refill distally. DP pulse 2+ Lab Results Component Value Date NA 143 11/05/2020 K 3.5 11/05/2020 CL 107 11/05/2020 CO2 27 11/05/2020 BUN 12 11/05/2020 CREATININE 0.59 (L) 11/05/2020 GLUCOSE 126 11/05/2020 CALCIUM 8.8 11/05/2020 Lab Results Component Value Date WBC 7.1 11/05/2020 HGB 12.9 11/05/2020 HCT 39.3 11/05/2020 MCV 97.5 (H) 11/05/2020 PLATELET 226 11/05/2020 Lab Results Component Value Date INR 1.1 11/05/2020 Imaging: Intra-operative Fluoro The right hip is reduced. There is no evidence of intra-op fracture. ASSESSMENT / PLAN: Stacy Knight is a 70 y.o. female Day of Surgery s/p right ENA, progressing wellwith stable vitals. Discharge pending evaluation by PT/OT on POD1. Activity: WBAT RLE Closure: Resorbable sutures Dressing: Mepilex x 14 days (7 days, d/c with additional mepilex) Drain: none Anticoagulation: ASA 81mg BID for 30 days Antibiotics: periop ancef Consults: PT/OT Dispo:Per PT/OT Follow-up: as scheduled below Steven Louis MD 01/19/2021 Future Appointments Date Time Provider Department Center 02/17/2021 12:45 PM [facility] DX ROOM 2 MH Xray [facility] Rad 02/17/2021 1:40 PM Patrick Dumont MD [facility] ORTH 3C [facility] * Shantell French RN - 01/19/2021 5:52 PM EDT 1721: Pt admit to PACU 1 from OR OR team giving bedside report Pt placed on Monitor and O2 Vital signs stable Pt sleepy from effects of anesthesia but easily aroused 1730: Complaining of R hip discomfort Medicating per PACU orders Vital signs remain stable Repositioned and Ice to R hip 1745: SBP 170s... denies pain at this time Page to anesthesia call For BP med orders 1800: SBP remains > 170 Medicating per anesthesia PACU orders Pt tolerating fluids without n/v 1830: meets criteria for Phase II 1900: Pt resting comfortably Vital signs stable Awaiting bed assignment for admission 2000: Pt remains stable vital signs Tolerating fluids without n/v Pain well managed at present Awaiting transfer to 011 2029: Report called to Andrae AMBRIZ 2049: transfer to 011 documented in this encounter H&P Notes * Nikos Gomes MD - 01/19/2021 2:19 PM EDT 24-HOUR UPDATE Stacy Knight's history and physical exam have been reviewed and completed. There has been no interval change from that of the pre-operative history and physical exam done within the last 30 days. CV: RRR, no RMG Pulm: LCTAB Nikos Gomes MD P. [id number] 01/19/21 2:19 PM documented in this encounter Miscellaneous Notes * Plan of Care - Janette Schaefer RN - 01/26/2021 10:56 AM EDT Report called to Anny at [facility] [place]. Reviewed medications, patient history, and clinical stay, and physical assessment. RN indicated understanding and had no questions. Belongings given back to patient and IV removed. Awaiting on EMS transport. * Initial Assessments - Karen Cheng RN - 01/26/2021 9:16 AM EDT CARE MANAGEMENT FINAL DISCHARGE NOTE Chart reviewed, care reviewed with primary team and at interdisciplinary rounds. Patient is medically ready for discharge per primary team. Needs for Transition of Care Plan for discharge is: long-term Agency Referrals: [facility] [address] Patient accepted bed offer, insurance authorization is approved. Transportation: ambulance -Wheelchair van/Ambulance? Yes Ambulance transportation is medically necessary at discharge related to moderate to severe pain on movement, inability to maintain erect seated position due to pain/distance of transport, facility allowing professional medical transport only at this time due to COVID precautions. I have discussed Medicare/Private Insurance reimbursement guidelines for ambulance transport. Patient/ verbalize understanding of their potential financial obligation and agree with ambulance transport. Functional status prior to admission: Independent, Assistive Equipment Home Environment: Others in the home: alone. Current Living Arrangements: home/apartment/condo (onelevel house, one step to enter). Current Functional Ability: Assistive Person, Assistive Equipment ?? Current DME: crutches (elevated toilet seat, [employer]strand crutches) DME Needed at DC: n/a Patient is insured through: Primary Insurance: [employer] MANAGED MEDICARE Payor: [employer] MANAGED MEDICARE / [facility] / Product Type: *No Producttype* / Secondary Insurance: N/A Prescription Coverage: Yes Preferred Pharmacy: [facility] [address] [place] [address] [address] [id number] [place] [address] [address] [facility] & [address] [phone] This plan was formulated with input from patient and team. All are in agreement with plan. Due to current public health concerns, I have verbally reviewed Medicare Discharge Rights with patient. Patient verbalizes understanding of right to appeal this discharge if feeling not medically ready. Karen Cheng RN Case Plate Conditioner of Care Management Pager: [phone] * Plan of Care - Selin Mejias RN - 01/25/2021 12:31 PM EDT OUTCOME EVALUATION NOTE: ?? OUTCOME SUMMARY: ?? Pt remains medically unchanged awaiting rehab bed. Pt denies N/T. ??Dressing noted to be CDI. LLE edema. PRN immodium given, see mar. Pain managed with scheduled and prn meds see MAR.Will continue tosupport plan to d/c. ?? PLAN MOVING FORWARD: ?? Mobilization Support plan to d/c.? INDIVIDUALIZED FALL PREVENTION INTERVENTIONS: ?? Patient-specific fall risk factors per assessment: [current deficits]:?H/o surgery, hospital environment? Assistance [level of assistance required for transfers and ambulation]:?1A with FWW? Supervision [direct monitoring required during toileting and ADLs]:?Eyes on? Surveillance [continuous indirect monitoring]:?Masimo, purposeful rounding? Patient-specific fall prevention interventions for sensory deficits provided, if applicable:?[X]No ?? * Plan of Care - Imelda Best RN - 01/25/2021 5:45 AM EDT OUTCOME EVALUATION NOTE: OUTCOME SUMMARY: Patient AOx4, VSS on RA. Denies nausea/vomiting, CP, SOB. Pain controlled w/ scheduled and PRN medications, see MAR for medications given. Dressing CDI. Fungal powder applied w/ hygiene care. Patientvoiding to BR w/ 1A FWW. Patient sleeping in between care. Will continue to monitor. PLAN MOVING FORWARD: Mobilization D/C plan INDIVIDUALIZED FALL PREVENTION INTERVENTIONS: Patient-specific fall risk factors per assessment: [current deficits]: Hospital environment, general weakness Assistance [level of assistance required for transfers and ambulation]: 1A w/ FWW Supervision [direct monitoring required during toileting and ADLs]: Eyes on Surveillance [continuous indirect monitoring]: Masimo, purposeful rounding Patient-specific fall prevention interventions for sensory deficits provided, if applicable: [X] N/A * Plan of Care - Selin Mejias RN - 01/24/2021 2:23 PM EDT OUTCOME EVALUATION NOTE: ?? OUTCOME SUMMARY: ?? Pt remains medically unchanged awaiting rehab bed. Pt seen by PT for eval. Pt denies N/T. Dressing noted to be CDI. Pain managed with scheduled and prn meds see MAR. Will continue to support plan to d/c. ?? PLAN MOVING FORWARD: ?? Mobilization Support plan to d/c. ?? INDIVIDUALIZED FALL PREVENTION INTERVENTIONS: ?? Patient-specific fall risk factors per assessment: [current deficits]: H/o surgery, hospital environment ?? Assistance [level of assistance required for transfers and ambulation]: 1A with FWW ?? Supervision [direct monitoring required during toileting and ADLs]: Eyes on ?? Surveillance [continuous indirect monitoring]: Masimo, purposeful rounding ?? Patient-specific fall prevention interventions for sensory deficits provided, if applicable: [X] No ? CPG GOAL OUTCOME EVALUATION: * Care Management - Cayla Riggs RN - 01/24/2021 2:11 PM EDT OFFICE OF CARE MANAGEMENT PROGRESS NOTE LOS: Hospital Day 0 days Chart reviewed, care reviewed with primary team and at interdisciplinary rounds. Functional status prior to admission: Independent, Assistive Equipment Home Environment: Others in the home: alone. Current Living Arrangements: home/apartment/condo (onelevel house, one step to enter). Accessibility Concerns: . DME used at home: crutches (elevated toilet seat, [employer]strand crutches) Patient is insured through: Primary Insurance: [facility] MANAGED MEDICARE Payor: [facility] MANAGED MEDICARE / Plan[facility]PLETE / Product Type: *No Producttype* / Secondary Insurance: N/A Prescription Coverage: Yes [facility] [address] [place] [address] [address] [address] [id number] [place], [place] - [facility] [address] AT [facility] & [address] [facility] [address] [facility] [phone] Last Physical Therapy Recommendation: inpatient rehabilitation facility, home with home health, home with daily check in (rehab vs home w/ comprehensive VNA services, recliner) with to be determined (recliner, pt to ask brother if he could bring one to her aaliyah) Last Occupational Therapy Recommendation: inpatient rehabilitation facility (supervision needed andassistance for IADLs) with to be determined (Pt has AE for home) Plan for discharge is: Patient has been accepted at [facility] pending authorization. Pt will require updated Covid test. Transportation: car/ambulance Plan going forward: Care Management will continue to follow and assist with discharge planning and coordination of care as indicated. Cayla Riggs, KATINA, BSN Case Management * Plan of Care - Alina Mcgraw RN - 01/24/2021 2:58 AM EDT OUTCOME EVALUATION NOTE: OUTCOME SUMMARY: Pt A&Ox4. VSS on RA. Pt c/o up to 3/ pain this shift, pain well controlled with prn Toradol and scheduled tylenol. Pt up to bathroom SBA w/ crutches. Pt resting in between care. Scheduled meds given, see MAR. Pt resting in bed, safety maintained. PLAN MOVING FORWARD: d/c planning INDIVIDUALIZED FALL PREVENTION INTERVENTIONS: Patient-specific fall risk factors per assessment: [current deficits]: Gen weakness, IV access Assistance [level of assistance required for transfers and ambulation]: SBA w/ crutches Supervision [direct monitoring required during toileting and ADLs]: Eyes on Surveillance [continuous indirect monitoring]: Weso Patient-specific fall prevention interventions for sensory deficits provided, if applicable: [X] N/A CPG GOAL OUTCOME EVALUATION: * Plan of Care - Selin Mejias RN - 01/23/2021 12:55 PM EDT OUTCOME EVALUATION NOTE: OUTCOME SUMMARY: Pt remains medically unchanged awaiting rehab bed. Pt denies N/T. Dressing noted to be CDI. Pain managed with scheduled and prn meds see JUN. Will continue to support plan to d/c. PLAN MOVING FORWARD: Mobilization Support plan to d/c. INDIVIDUALIZED FALL PREVENTION INTERVENTIONS: Patient-specific fall risk factors per assessment: [current deficits]: H/o surgery, hospital environment Assistance [level of assistance required for transfers and ambulation]: 1A with FWW Supervision [direct monitoring required during toileting and ADLs]: Eyes on Surveillance [continuous indirect monitoring]: Masimo, purposeful rounding Patient-specific fall prevention interventions for sensory deficits provided, if applicable: [X] No CPG GOAL OUTCOME EVALUATION: * Consult Note - Suri Polo RN - 01/22/2021 9:42 AM EDTSummary: call back rec'd rec'd call back from leadership intern, kailey Gamez, who will come have conversation with pt as to risks associated with leaving piv out. * Plan of Care - Poppy oJhn RN - 01/20/2021 3:15 PM EDT OUTCOME EVALUATION NOTE: OUTCOME SUMMARY: Stacy has had minimal pain, better than her pain prior to the replacement. She is up to the bathroom with SBA and 2 crutches (that she uses baseline at home). Voiding, no nausea, no c/o new numbness or tingling. OT and PT following. Resting comfortably, will continue to monitor. PLAN MOVING FORWARD: Plan to go to rehab, may be transferring to inpatient floor until then. * Initial Assessments - Karen Cheng RN - 01/20/2021 1:31 PM EDT Office of Care Management Initial Assessment Karen Cheng RN reviewed record and discussed patient with Care Team. Source of Information: Team, bedside nurse, medical record, and Patient Introduced self/reviewed role; services accepted. Reason for Hospitalization: Hip surgery Last COVID test: Lab Results Component Value Date [id number] Not Detected 01/19/2021 Past medical History: Past Medical History: Diagnosis Date ??? Asthma ??? Bowel disease ibs ??? Chronic pain right hip and knee pain ??? COPD (chronic obstructive pulmonary disease) ??? Gastroesophageal reflux rare use of TUMS ??? High blood pressure controlled with medication ??? Mental health problem depression ??? Transfusion history 1983 ??? Vertigo fell out of chair in past week or so Hospitalizations Within the Past 30 Days: no previous admission in last 30 days Current Decision-Making Capacity: alert and oriented, full capacity. Advance Care Planning: Attempt Cardiopulmonary Resuscitation - Inpatient <no information> -Advanced Directive: (not on file) If AD's have not been completed brother Harshad Knight would be surrogate decision maker per [place] surrogate decision making law. (Only good for 180 days) Any patient receiving care at [facility] must abide by [place] law. The hierarchy for surrogate decision making is: (a) Patient???s spouse, or civil union partner or common law spouse unless there is a divorce proceeding, separation agreement, or restraining order limiting that person???s relationship with the patient. (b) Any adult son or daughter of the patient. (c) Either parent of the patient. (d) Any adult brother or sister of the patient. (e) Any adult grandchild of the patient. (f) Any grandparent of the patient. (g) Any adult aunt, uncle, niece, or nephew of the patient. (h) A close friend of the patient. (i) The agent with financial power of syrup machine laborer or a conservator appointed in accordance with RSA 464-A. (j) The guardian of the patient???s estate. Current Coping/Education/Information Needs: feels updated on the plan of care. Current Functional Ability: Assistive Person, Assistive Equipment Functional Status Prior to Admission: Independent, Assistive Equipment Home Environment: Others in the home: alone. Current Living Arrangements: home/apartment/condo (onelevel house, one step to enter). Accessibility Concerns: . Will need to navigate stay to get into apartment. Current DME: crutches (elevated toilet seat, [employer]strand crutches) Home Address confirmed as: [address] [facility] [address] Social & Family Supports: All names listed below confirmed with patient as current and correct Extended Emergency Contact Information Primary Emergency Contact: Adan Knightifford [address]: [address] [place] [address] Relation: Sibling Current Care Provided by: self Provides Primary Care For: no one, unable/limited ability to care for self Caregiver if needed: sibling(s) (patient is planning to stay at the brother's house after rehab) Quality of Family relationships: unable to assess Community Resources being provided currently: luiz/spiritual community Behavioral Health History: Substance Use/Abuse confirmed: Social History Tobacco Use Smoking Status Former Smoker ??? Packs/day: 0.00 ??? Years: 0.50 ??? Pack years: 0.00 ??? Types: Cigarettes ??? Quit date: 1979 ??? Years since quittin.8 Smokeless Tobacco Never Used 0 No problems reported 1-2 Low level 3-5 Moderate level 6-8 Substantial level 9- 10 Severe level 0 to 7 points: Low risk 8 to 15 points: Medium risk 16 to 19 points: High risk 20 to 40 points: Addiction likely Other Pertinent/Service Specific Information: Health/Prescription Coverage: Primary Insurance: [facility] MANAGED MEDICARE Payor: [facility] MANAGED MEDICARE / Plan: [facility] MANAGED MEDICARE COMPLETE / Product Type: *No Producttype* / Secondary Insurance: N/A Prescription Coverage: Yes Preferred Pharmacy: [facility] [address] [place] [id number] [id number] [place] [address] [facility] [address] [id number] Status: Patient is a : No Primary Care Provider: Dandy Drisclol APRN [phone] Patient/Caregiver Goals of Treatment: recovery ost procedure and return home. Potential Needs for Transition of Care: long-term Agency Referrals: referrals placed. Transportation: no concerns Transportation Anticipated: family or friend will provide Concerns to be Addressed: discharge planning Assessment: Patient is s/p Right Total Hip Arthroplasty, will benefit from inpatient rehabilitationstay, however may progress towards home discharge, referrals placed, will need insurance authorization with [facility] MANAGED MEDICARE COMPLETE. Plan: A member of the Care Management team will continue to monitor progress, follow for continuity of care and assist with transition of care planning. Karen Cheng RN, [facility] Nurse Agricultural Chemist Pager [phone] * Op Note - Patrick Dumont MD - 01/19/2021 3:27 PM EDT [facility] Operative Note Patient Name: Stacy Knight : [id number] MR#: [id number] Case Date: 01/19/2021 Surgeon: Surgeon(s) and Role: * Patrick Dumont MD - Primary Nikos Gomes MD - Chief Resident Preoperative diagnosis: Right hip osteoarthritis Postoperative diagnosis: Right hip osteoarthritis Procedure(s) (LRB): TOTAL HIP ARTHROPLASTY, ANTERIOR APPROACH (WRVU 20.72) (Right) HIP INTRAOP RADIOLOGIC EXAMINATION, UNILATERAL, W PELVIS; 4+ VIEWS (WRVU 0.27) (Right) MODIFIER CORAIL FEMORAL STEM DEPUY (N/A) MODIFIER PINNACLE ACETABULUM DEPUY (N/A) Anesthesia: General Estimated blood loss: 500 cc Fluids: See record Urine output: Due to Void Drains: None Complications: None Implants: 1. 12 Corail standard femoral stem 2. 50 mm Pinnicle acetabular shell 3. 32 x 50 mm Neutral acetabular polyethylene liner 4. 32 +1 mm ceramic femoral head Findings: Significant femoral and acetabular osteoarthritic changes. Components were well positioned. No fractures appreciated. Stability testing reveled stable construct without impingement within physiologic range of motion. Indications for procedure: Patient is a 70-year-old femal3 with right hip osteoarthritis. After exhausting conservative measures, the patient elected to proceed with total hip arthroplasty. The risksand benefits of this procedure were reviewed in depth and patient received medical clearance prior to procedure. Description of events: The patient was seen in the same day surgery area where informed consent was confirmed and the appropriate right lower extremity was marked with my initials. This was confirmed by the patient as the correct side. The patient was brought back to the operating room and placed on the operating room table in the supine position. A timeout was performed per policy identifying the correct side, patient identity, and procedure. Preoperative antibiotics were given prior to incision. A general anesthetic was provided by the anesthesia staff. The patient was then transitioned to the Siomara table. Well-padded peroneal post was placed and the patient was brought down to this post. The hip was preppedand draped in usual sterile fashion using ChloraPrep. Patient received TXA prior to incision. An approximately 10 cm incision was made starting 1-2 cm distal and 2 cm posterior to the ASIS extending approximately 30 degree posteriorly towards the greater trochanter. Dissection was carried down to the TFL fascia with hemostasis obtained using electrocautery. The fascia of the TFL was identified and deep knife was used to incise the fascia protecting the underlying muscle. 2 Allis clamps were then placed on the anterior leaf of this fascia and blunt finger dissection was used to dissect down into the interval between the rectus and TFL. Lateral aspect of the neck was identified and deeplayer of TFL fascia was bluntly dissected through using a finger and a blunt Efrain was placed over t he superior lateral aspect of the neck. Inferior calcar area of the neck was identified and blunt Efrain was placed. A Diana retractor was placed on the TFL laterally and vascular leash in the inferior portion of the incision was dissected free and cauterized. A Rojas was then used to identify rectusmedially and retractor was placed underneath the rectus and rectus was elevated off the underlying capsule. Pericapsular fat was removed using Rojas. An inverted T capsulotomy was then made using electrocautery extending from the medial aspect of the joint to the intertrochanteric line extending both proximally and distally. #2 Ethibond stay stitches were placed in both corners of our capsulotomy and Homans removed to an intra-articular position. Inferior calcar was removed of soft tissue down to the level of the lesser trochanter. Careful attention was to not include the abductors with their lateral retractor. This provided access to the neck of the femur for osteotomy. Preoperative template and was assessed for level of neck cut from above the lesser trochanter osteotomy was performed starting on the calcar side extending towards the base of the neck. At this point2 turns of traction and external rotation to 50 degrees was performed. Power corkscrew was then used to remove the remaining femoral head from the acetabulum. Femoral head was then measured and initial acetabular reamer was identified. Homans were placed both anterior and posterior to the labrum to provide access to the acetabulum. Long handled knife was used to remove the labrum. Any overhanging osteophytes were removed using a rongeur. Bovie was used to define the true floor and the condyloid fossa. Inferior capsule was released slightly. Reaming was undertaken under C-arm fluoroscopy starting 3 mm below templated size. Initially medialization was undertaken and then the acetabulum was reamed in position aiming for 40 degrees of abduction and approximately 15-20 degrees of anteversion. After reaming was found to be acceptable reamer was removed and excellent bony bleeding was encountered. Acetabular shell of 50 millimeters was malleted into the appropriate anteversion and horizontal position. This had excellent scratch fit. Supplemental screws were placed for additional fixation. Polyethylene insert was positioned into place and malleted into the locking mechanism. Our attention then was turned to femoral preparation, traction was removed the femur was externallyrotated to 90 degrees and brought partly into extension. While performing this maneuver the femur was pulled in a lateral direction. A femoral elevator was placed along the posterior inferior aspect of the neck and a Rick type retractor was placed over the greater trochanter and a posterior position. Remaining soft tissue at the lateral base of the neck was removed to fully expose the lateral aspect of the neck. Additional release was performed with electrocautery extending posterior laterally to the ???nipple ???with careful attention not to release the short external rotators. Then additional external rotation to greater than 100 degrees was performed the leg was extended all the way down to the floor and adduction were provided. This provided excellent access to the proximal femur for broaching. Rongeur was used to remove any lateral neck that was residual. T-handle was used to assure entry into the femoral canal after box osteotome was used to lateralize approach. Starter broach was used toopen the proximal aspect of the femur with careful attention to keep hand towards floor and body ofpatient. Next, size #8 broach was used to start femoral broaching. Sequential broaches were used until a final size 12 broach had excellent rotational stability. Calcar planing was undertaken and trial femoral neck and head was placed using size 32 +1 head and standard neck. The hip was reduced by bringing the leg to a neutral position followed by traction and internal rotation with pressure placed on the femoral head. The hip reduced without difficulty. C-arm fluoroscopy was used to assess leg lengths, femoral implant position and size. Stability testing was undertaken with external rotation to 90 degrees and extension of the hip. Stability was found to be excellentand leg lengths and femoral size appropriate. No posterior impingement was encountered, the hip wasthen subsequently dislocated with traction and external rotation and brought to an externally rotated, extended, and adductor position. The femoral broach was removed canal was irrigated and final implant was placed. The hip was re-reduced and found to be stable. Final x-rays were performed and saved. The wound was copiously irrigated with pulsed lavage. Closure included multiple layers. TFL fascia was then closed with a Strata Fix in a running fashion. Subcutaneous tissues re-approximated with a combination of 0 and 2-0 Vicryl sutures in a buried fashion. 3-0 Monocryl suture was used in a subcutaneous buried fashion for skin closure followed by Dermabond application. A Mepilex border AG dressing was applied. Plan: Patient will be admitted. Patient will be weightbearing as tolerated on the surgical extremity without precaution. Patient will use DVT prophylaxis for 30 days. Dressing will remain in place for 7 days. No suture removal is necessary. Patient will likely be discharged to home with VNA services or rehabilitation stay. Follow-up will be in 4 weeks for wound check and xrays at that visit. Infection Bundle used? N/A Attestation: Case Date: 01/19/2021 I was present and I participated during the entire procedure (does not need to include opening and closing). Patrick Dumont MD 01/19/2021 documented in this encounter Plan of Treatment Upcoming Encounters Date Type Department Care Team (Late st Contact Info) Description 03/04/2024 12:00 PM EST Office Visit [place] [address] Jordyn Francisco MD [facility] DR OBSTETRICS [place] [address] documented as of this encounter Procedures Procedure Name Priority Date/Time Associated Diagnosis Comments RAPID COVID-19 PCR ([facility]/APD/[facility]) Routine 01/24/2021 2:26 PM EDT HEMOGRAM Routine 01/22/2021 4:45 AM EDT DIFFERENTIAL, AUTOMATED Routine 01/22/2021 4:45 AM EDT HC CBC,PLT & AUTO DIFF Routine 01/22/2021 4:45 AM EDT BASIC METABOLIC PANEL Routine 01/22/2021 4:45 AM EDT HEMOGRAM Routine 01/21/2021 3:26 AM EDT DIFFERENTIAL, AUTOMATED Routine 01/21/2021 3:26 AM EDT HC VENIPUNCTURE Routine 01/21/2021 3:26 AM EDT BASIC METABOLIC PANEL Routine 01/21/2021 3:26 AM EDT HEMOGRAM Routine 01/20/2021 4:53 AM EDT DIFFERENTIAL, AUTOMATED Routine 01/20/2021 4:53 AM EDT HC CBC,PLT & AUTO DIFF Routine 01/20/2021 4:53 AM EDT BASIC METABOLIC PANEL Routine 01/20/2021 4:53 AM EDT XR FLUORO NO RAD <1HR - OR USE Routine 01/19/2021 4:42 PM EDT SURGICAL PATHOLOGY REPORT Routine 01/19/2021 3:39 PM EDT SPECIMEN TO PATHOLOGY Routine 01/19/2021 3:39 PM EDT MODIFIER PINNACLE GRIPTION ACETABULUM DEPUY 01/19/2021 2:56 PM EDT Primary osteoarthritis of right hip MODIFIER CORAIL FEMORAL STEM DEPUY 01/19/2021 2:56 PM EDT Primary osteoarthritis of right hip HIP INTRAOP RADIOLOGIC EXAMINATION, UNILATERAL, W PELVIS; 4+ VIEWS (WRVU 0.27) 01/19/2021 2:56 PM EDT Primary osteoarthritis of right hip TOTAL HIP ARTHROPLASTY, ANTERIOR APPROACH (WRVU 19.6) 01/19/2021 2:56 PM EDT Primary osteoarthritis of right hip RAPID COVID-19 PCR ([facility]/APD/[facility]) Routine 01/19/2021 2:52 PM EDT TOTAL HIP ARTHROPLASTY, ANTERIOR APPROACH Routine 01/19/2021 1:25 PM EDT Primary osteoarthritis of right hip HIP INTRAOP RADIOLOGIC EXAMINATION, UNILATERAL, W PELVIS; 4+ VIEWS Routine 01/19/2021 1:25 PM EDT Primary osteoarthritis of right hip IMPLANTABLE DEVICES SCAN 01/19/2021 12:00 AM EDT documented in this encounter Results * COVID-19 PCR (01/24/2021 2:26 PM EDT) SARS-CoV-2 RNA (Rapid) Not Detected Not Detected [facility] Comment: This result should be interpreted in combination with the clinical observations, patient history and epidemiological information. For testing of asymptomatic individuals, assay performance characteristics and clinical utility have not been evaluated. Testing for SARS-CoV-2 (Severe acute respiratory syndrome coronavirus 2, formerly known as 2019 novel coronavirus or 2019-nCoV) to aid in the diagnosis of COVID-19 is performed using the Simplexa COVID-19 Direct Assay by [employer] as authorized by the FDA issued Emergency Use Authorization (EUA). This assay is intended for In-vitro Diagnostic (IVD) use with nasopharyngeal swabs collected from individuals meeting the CDC criteria for testing. The assay is performed based on the instructions for use and additional guidance provided by the FDA. Testing is performed in the Microbiology Laboratory within the Department of Pathology and Laboratory Medicine at [facility], certified under the Clinical Laboratory Improvement Amendments of 1988 (CLIA), 42 U.S.C. section 263a, to perform high complexity tests. Assay performance has been verified according to clinical laboratory regulatory requirements. Test results are provided above. A result of Not Detected indicates that the viral RNA target is not present but does not preclude SARS-CoV-2 infection. False negative results may occur if a specimen is improperly collected, transported or handled; if amplification inhibitors are present; or if inadequate numbers of viral particles are present in the specimen. A result of Detected suggests a current or recent infection and the patient is presumed to be infected. Positive and negative predictive values for this test are highly dependent on disease prevalence. A result of Invalid indicates the inability to conclusively determine the presence or absence of SARS-CoV-2 RNA in the sample which can be due to a variety of factors. Recollection is recommended in the case of an invalid result. CDC COVID-19 criteria for testing on human specimens and clinical management guidance information are available at the CDC Coronavirus Disease 2019 (COVID-19) webpage under Information for Healthcare Professionals (https://www.cdc.gov/coronavirus/2019-ncov/hcp/index.html). Additional information about this and other EUA tests can be found in provider and patient fact sheets at the following FDA website: https://www.fda.gov/medical-devices/swpvvnemacw-nnlhnce-1193-jzpbr-50-nmprjzlxn- use-a qawwpndxebije-unkjlzy-hvfvbhp/nydcg-aaocgwnopgf-kgap SARS-CoV-2 Source [employer] Swab [facility] Nasopharyngeal Swab 01/25/20 2:26 PM EDT 01/24/2021 3:19 PM EDT Comment:Symptoms->Surveillan ce Narrative Resulting Agency Comment Spec In Lab Emperatriz Mendoza APRN MICROBIOLOGY - GE NERAL ORDERABLES [facility] [place] [address] * (ABNORMAL) Differential, Automated (01/22/2021 4:45 AM EDT) Neutrophil % 65.7 % [facility] Neutrophil Absolute 6.01 1.70 - 6.10 x10(3)/mc L [facility] Lymph % 24.4 % [facility] Lymphocytes Abs 2.2 0.9 - 3.2 x10(3)/mc L [facility] Monocyte % 8.8 % [facility] Monocyte Abs 0.8 0.3 - 0.9 x10(3)/[facility] Eos % 0.4 % [facility] Eosinophils Abs 0.0 0.0 - 0.4 x10(3)/[facility] Basophil % 0.2 % [facility] Baso Absolute 0.0 0.0 - 0.1 x10(3)/[facility] Immature Gran % 0.50 % [facility] Comment: Immature granulocytes(IG's)percentage and absolute count will include metamyelocytes, myelocytes, and promyelocytes. Blood smears from CBCs yielding IG's will be scanned manually for concordance. If this scan disagrees with the automated IG or if promyelocytes are noted, a manual differential will be performed. Immature Gran Absolute 0.05(H) 0.00 - 0.04 x10(3)/[facility] Blood 01/22/2021 4:45 AM EDT 01/22/2021 5:00 AM EDT Narrative Resulting Agency Comment Spec In Lab Nikos Gomes MD HEMATOLOGY ORDERABLE S [facility] [place] [address] * (ABNORMAL) Hemogram (01/22/2021 4:45 AM EDT) White Blood Cell 9.2 4.0 - 9.5 x10(3)/[facility] Red Blood Cell 3.06(L) 4.00 - 5.21 x10(6)/[facility] Hemoglobin 9.9(L) 11.7 - 15.5 g/dL [facility] Hematocrit 30.3(L) 35.7 - 45.8 % [facility] Mean Cell Volume 99.0(H) 82.6 - 94.4 fL [facility] Mean Cell Hemoglobin 32.4(H) 27.1 - 32.0 pg [facility] Mean Cell Hemoglobin Concentration 32.7 31.7 - 35.0 g/dL [facility] Platelet 187 145 - 357 x10(3)/mc L [facility] RDW Standard Deviation 52.1(H) 37.0 - 46.0 fL [facility] RDW coefficient of variation 14.3(H) 11.5 - 14.1 % [facility] Mean Platelet Volume 12.2 7.6 - 12.9 fL [facility] NRBC% auto 0.0 % [facility] NRBC Absolute 0.000 0.000 - 0.000 x10(3)/mc L [facility] Blood 01/22/2021 4:45 AM EDT 01/22/2021 5:00 AM EDT Narrative Resulting Agency Comment Spec In Lab Nikos Gomes MD HEMATOLOGY ORDERABLE S [facility] [place] [address] * (ABNORMAL) Basic Metabolic Panel (non-fasting) (01/22/2021 4:45 AM EDT) Glucose 136 65 - 199 mg/dL [facility] Comment:Diabetes: >=200 mg/d L plus symptoms Blood Urea Nitrogen 21(H) 8 - 18 mg/dL [facility] Creatinine 0.51(L) 0.70 - 1.20 mg/dL [facility] Sodium 141 135 - 145 mmol/L [facility] Potassium 4.5 3.5 - 5.0 mmol/L [facility] Comment: Please note: ??Patients with WBC >100,000 may have falsely elevated Potassium levels. ??For accurate Potassium quantification in these patients send serum separator tube (gold top) for subsequent determinations. ??Contact the Clinical Chemistry Laboratory if there are any questions. Chloride 107 98 - 107 mmol/L [facility] Carbon Dioxide 29 22 - 31 mmol/L [facility] Anion Gap 5 5 - 15 mmol/L [facility] Calcium 8.3(L) 8.5 - 10.5 mg/dL [facility] Est Glomerular Filtration Rate 98 >=60 mL/min/1. 73 m?? [facility] Comment: This patient? s estimated glomerular filtration rate (eGFR) is between 98 mL/min/1.73 m2 (patients with less muscle mass) and 114 mL/min/1.73 m2 (patients with more muscle mass) as determined by the CKD-EPI equation. Assessment of eGFR is not appropriate when creatinine concentrations are rapidly changing. For clinical decisions where creatinine clearance will affect therapy, a 24-hour urine creatinine clearance may be advised. Assignment of CKD stage 1 - 5 for patients with an eGFR near the transition point between stages may be based on clinical assessment of muscle mass and symptoms in addition to eGFR. Blood 01/22/2021 4:45 AM EDT 01/22/2021 4:59 AM EDT Narrative Resulting Agency Comment Spec In Lab Patrick Dumont MD CHEMISTRY ORDERABLES [facility] [place] [address] * (ABNORMAL) Differential, Automated (01/21/2021 3:26 AM EDT) Neutrophil % 83.7 % [facility] Neutrophil Absolute 11.56(H) 1.70 - 6.10 x10(3)/mc L [facility] Lymph % 6.3 % [facility] Lymphocytes Abs 0.9 0.9 - 3.2 x10(3)/mc L [facility] Monocyte % 9.3 % [facility] Monocyte Abs 1.3(H) 0.3 - 0.9 x10(3)/mc L [facility] Eos % 0.0 % [facility] Eosinophils Abs 0.0 0.0 - 0.4 x10(3)/mc L [facility] Basophil % 0.1 % [facility] Baso Absolute 0.0 0.0 - 0.1 x10(3)/ L [facility] Immature Gran % 0.60 % [facility] Comment: Immature granulocytes(IG's)percentage and absolute count will include metamyelocytes, myelocytes, and promyelocytes. Blood smears from CBCs yielding IG's will be scanned manually for concordance. If this scan disagrees with the automated IG or if promyelocytes are noted, a manual differential will be performed. Immature Gran Absolute 0.08(H) 0.00 - 0.04 x10(3)/[facility] Blood 01/21/2021 3:26 AM EDT 01/21/2021 3:50 AM EDT Narrative Resulting Agency Comment Spec In Lab Nikos Gomes MD HEMATOLOGY ORDERABLE S Performing Organization Address City/State/[facility] Co de Phone Number [facility] [place] [address] * (ABNORMAL) Hemogram (01/21/2021 3:26 AM EDT) White Blood Cell 13.8(H) 4.0 - 9.5 x10(3)/[facility] Red Blood Cell 3.08(L) 4.00 - 5.21 x10(6)/[facility] Hemoglobin 9.9(L) 11.7 - 15.5 g/dL [facility] Hematocrit 30.2(L) 35.7 - 45.8 % [facility] Mean Cell Volume 98.1(H) 82.6 - 94.4 fL [facility] Mean Cell Hemoglobin 32.1(H) 27.1 - 32.0 pg [facility] Mean Cell Hemoglobin Concentration 32.8 31.7 - 35.0 g/dL [facility] Platelet 176 145 - 357 x10(3)/[facility] RDW Standard Deviation 50.3(H) 37.0 - 46.0 fL [facility] RDW coefficient of variation 13.9 11.5 - 14.1 % [facility] Mean Platelet Volume 12.4 7.6 - 12.9 fL [facility] NRBC% auto 0.0 % [facility] NRBC Absolute 0.000 0.000 - 0.000 x10(3)/mc L [facility] Blood 01/21/2021 3:26 AM EDT 01/21/2021 3:50 AM EDT Narrative Resulting Agency Comment Spec In Lab Nikos Gomes MD HEMATOLOGY ORDERABLE S [facility] [place] [address] * (ABNORMAL) Basic Metabolic Panel (non-fasting) (01/21/2021 3:26 AM EDT) Glucose 194 65 - 199 mg/dL [facility] Comment:Diabetes: >=200 mg/d L plus symptoms Blood Urea Nitrogen 27(H) 8 - 18 mg/dL [facility] Comment:result rechecked-abeba Creatinine 0.90 0.70 - 1.20 mg/dL [facility] Sodium 143 135 - 145 mmol/L [facility] Potassium 4.5 3.5 - 5.0 mmol/L [facility] Comment: Please note: ??Patients with WBC >100,000 may have falsely elevated Potassium levels. ??For accurate Potassium quantification in these patients send serum separator tube (gold top) for subsequent determinations. ??Contact the Clinical Chemistry Laboratory if there are any questions. Chloride 108(H) 98 - 107 mmol/L [facility] Carbon Dioxide 27 22 - 31 mmol/L [facility] Anion Gap 8 5 - 15 mmol/L [facility] Calcium 8.6 8.5 - 10.5 mg/dL [facility] Est Glomerular Filtration Rate 65 >=60 mL/min/1. 73 m?? [facility] Comment: This patient? s estimated glomerular filtration rate (eGFR) is between 65 mL/min/1.73 m2 (patients with less muscle mass) and 76 mL/min/1.73 m2 (patients with more muscle mass) as determined by the CKD-EPI equation. Assessment of eGFR is not appropriate when creatinine concentrations are rapidly changing. For clinical decisions where creatinine clearance will affect therapy, a 24-hour urine creatinine clearance may be advised. Assignment of CKD stage 1 - 5 for patients with an eGFR near the transition point between stages may be based on clinical assessment of muscle mass and symptoms in addition to eGFR. Blood 01/21/2021 3:26 AM EDT 01/21/2021 3:50 AM EDT Narrative Resulting Agency Comment Spec In Lab Patrick Dumont MD CHEMISTRY ORDERABLES [facility] [place] [address] * (ABNORMAL) Differential, Automated (01/20/2021 4:53 AM EDT) Neutrophil % 91.9 % [facility] Neutrophil Absolute 12.87(H) 1.70 - 6.10 x10(3)/mc L [facility] Lymph % 4.1 % [facility] Lymphocytes Abs 0.6(L) 0.9 - 3.2 x10(3)/mc L [facility] Monocyte % 3.5 % [facility] Monocyte Abs 0.5 0.3 - 0.9 x10(3)/mc L [facility] Eos % 0.0 % [facility] Eosinophils Abs 0.0 0.0 - 0.4 x10(3)/mc L [facility] Basophil % 0.1 % [facility] Baso Absolute 0.0 0.0 - 0.1 x10(3)/mc L [facility] Immature Gran % 0.40 % [facility] Comment: Immature granulocytes(IG's)percentage and absolute count will include metamyelocytes, myelocytes, and promyelocytes. Blood smears from CBCs yielding IG's will be scanned manually for concordance. If this scan disagrees with the automated IG or if promyelocytes are noted, a manual differential will be performed. Immature Gran Absolute 0.05(H) 0.00 - 0.04 x10(3)/mc L [facility] Blood 01/20/2021 4:53 AM EDT 01/20/2021 5:18 AM EDT Narrative Resulting Agency Comment Spec In Lab Nikos Gomes MD HEMATOLOGY ORDERABLE S [facility] [place] [address] * (ABNORMAL) Hemogram (01/20/2021 4:53 AM EDT) White Blood Cell 14.0(H) 4.0 - 9.5 x10(3)/mc L [facility] Red Blood Cell 3.61(L) 4.00 - 5.21 x10(6)/mc L [facility] Hemoglobin 11.4(L) 11.7 - 15.5 g/dL [facility] Hematocrit 34.7(L) 35.7 - 45.8 % [facility] Mean Cell Volume 96.1(H) 82.6 - 94.4 fL [facility] Mean Cell Hemoglobin 31.6 27.1 - 32.0 pg [facility] Mean Cell Hemoglobin Concentration 32.9 31.7 - 35.0 g/dL [facility] Platelet 214 145 - 357 x10(3)/mc L [facility] RDW Standard Deviation 48.7(H) 37.0 - 46.0 fL [facility] RDW coefficient of variation 13.6 11.5 - 14.1 % [facility] Mean Platelet Volume 11.9 7.6 - 12.9 fL [facility] NRBC% auto 0.0 % [facility] NRBC Absolute 0.000 0.000 - 0.000 x10(3)/mc L [facility] Blood 01/20/2021 4:53 AM EDT 01/20/2021 5:18 AM EDT Narrative Resulting Agency Comment Spec In Lab Nikos Gomes MD HEMATOLOGY ORDERABLE S [facility] [place] [address] * (ABNORMAL) Basic Metabolic Panel (non-fasting) (01/20/2021 4:53 AM EDT) Glucose 167 65 - 199 mg/dL [facility] Comment:Diabetes: >=200 mg/d L plus symptoms Blood Urea Nitrogen 16 8 - 18 mg/dL [facility] Creatinine 0.68(L) 0.70 - 1.20 mg/dL [facility] Sodium 137 135 - 145 mmol/L [facility] Potassium 5.0 3.5 - 5.0 mmol/L [facility] Comment: Please note: ??Patients with WBC >100,000 may have falsely elevated Potassium levels. ??For accurate Potassium quantification in these patients send serum separator tube (gold top) for subsequent determinations. ??Contact the Clinical Chemistry Laboratory if there are any questions. Chloride 103 98 - 107 mmol/L [facility] Carbon Dioxide 26 22 - 31 mmol/L [facility] Anion Gap 8 5 - 15 mmol/L [facility] Calcium 8.5 8.5 - 10.5 mg/dL [facility] Est Glomerular Filtration Rate 89 >=60 mL/min/1. 73 m?? [facility] Comment: This patient? s estimated glomerular filtration rate (eGFR) is between 89 mL/min/1.73 m2 (patients with less muscle mass) and 103 mL/min/1.73 m2 (patients with more muscle mass) as determined by the CKD-EPI equation. Assessment of eGFR is not appropriate when creatinine concentrations are rapidly changing. For clinical decisions where creatinine clearance will affect therapy, a 24-hour urine creatinine clearance may be advised. Assignment of CKD stage 1 - 5 for patients with an eGFR near the transition point between stages may be based on clinical assessment of muscle mass and symptoms in addition to eGFR. Blood 01/20/2021 4:53 AM EDT 01/20/2021 5:18 AM EDT Narrative Resulting Agency Comment Spec In Lab Patrick Dumont MD CHEMISTRY ORDERABLES [facility] [place] [address] * XR Fluoro No Rad <1Hr - OR Use (01/19/2021 4:42 PM EDT) Narrative Dicom, Auditing User - 01/19/2021 4:44 PM EDT This exam is auto-finalizing. No interpretation was done. Patrick Dumont MD IMG FLUORO ORDERABLE S * Surgical Pathology Report (01/19/2021 3:39 PM EDT) Final Diagnosis [id number] ? Location: [facility]; [facility]; The signing pathologist has (i) examined the relevant preparation(s) for the specimen(s) and (ii) rendered or confirmed the diagnosis(es). . ?Surgical Pathology DIAGNOSIS A - Right femoral head, osteoarthritis. Gross surgical pathology examination. Electronically signed by: ?Wayne Amador MD Verified: ??01/21/2021 18:58 ??Dermatopatholog ist, Bone & Soft Tissue Pathologist Performed at: ??-[facility] Dept. of Pathology, [place], [place] SPECIMEN(S) SUBMITTED A - right femoral head, excision (1) CLINICAL INFORMATION Right hip OA SPECIMEN PROCESSING A - Labeled/Fixative: Right femoral head, fresh. Quantity/Size: ??Single, 4.5 x 4.0 x 3.5 cm. Tissue Description: Disrupted, femoral head. Margin: Smooth. Articular surface: Markedly eroded and granular. ??Eburnation: Present. ??Osteophytes: Present. Cut surface: Stewart-yellow trabecular bone with dull hendricks discoloration subjacent to the articular surface. ??Subchondral Sclerosis: Present. ??Subchondral Cysts: Present. Sections/Processi ng: No sections submitted, gross diagnosis only ??ajw 01/21/2021 6:58 PM EDT [facility] BONE STRUCTURE / Unknown 01/19/2021 3:39 PM EDT 01/19/2021 3:39 PM EDT Patrick Dumont MD PATHOLOGY/CYTOLOGY O NELLY Performing Organization Address [facility] Co de Phone Number [facility] [place] [address] * Specimen to Pathology (01/19/2021 3:39 PM EDT) AP Specimen 01/19/2021 3:39 PM EDT 01/19/2021 3:39 PM EDT Narrative [facility] - 01/19/2021 3:39 PM EDT Specimen requisition ordered. ??Separate Pathology report to follow Patrick Dumont MD PATHOLOGY/CYTOLOGY O NELLY Performing Organization Address [facility] Co de Phone Number [facility] [place] [address] * COVID-19 PCR (01/19/2021 2:52 PM EDT) SARS-CoV-2 RNA (Rapid) Not Detected Not Detected [facility] Comment: This result should be interpreted in combination with the clinical observations, patient history and epidemiological information. For testing of asymptomatic individuals, assay performance characteristics and clinical utility have not been evaluated. Testing for SARS-CoV-2 (Severe acute respiratory syndrome coronavirus 2, formerly known as 2019 novel coronavirus or 2019-nCoV) to aid in the diagnosis of COVID-19 is performed using the Simplexa COVID-19 Direct Assay by [employer] as authorized by the FDA issued Emergency Use Authorization (EUA). This assay is intended for In-vitro Diagnostic (IVD) use with nasopharyngeal swabs collected from individuals meeting the CDC criteria for testing. The assay is performed based on the instructions for use and additional guidance provided by the FDA. Testing is performed in the Microbiology Laboratory within the Department of Pathology and Laboratory Medicine at [facility], certified under the Clinical Laboratory Improvement Amendments of 1988 (CLIA), 42 U.S.C. section 263a, to perform high complexity tests. Assay performance has been verified according to clinical laboratory regulatory requirements. Test results are provided above. A result of Not Detected indicates that the viral RNA target is not present but does not preclude SARS-CoV-2 infection. False negative results may occur if a specimen is improperly collected, transported or handled; if amplification inhibitors are present; or if inadequate numbers of viral particles are present in the specimen. A result of Detected suggests a current or recent infection and the patient is presumed to be infected. Positive and negative predictive values for this test are highly dependent on disease prevalence. A result of Invalid indicates the inability to conclusively determine the presence or absence of SARS-CoV-2 RNA in the sample which can be due to a variety of factors. Recollection is recommended in the case of an invalid result. CDC COVID-19 criteria for testing on human specimens and clinical management guidance information are available at the CDC Coronavirus Disease 2019 (COVID-19) webpage under Information for Healthcare Professionals (https://www.cdc.gov/coronavirus/2019-ncov/hcp/index.html). Additional information about this and other EUA tests can be found in provider and patient fact sheets at the following FDA website: https://www.fda.gov/medical-devices/bjubryshqnl-wgiubad-4055-zvjev-20-vbkvkbeuq- use-a trmtzzytoqsux-ghpakqe-nvykmgc/lztqm-foiictjhxmf-feer SARS-CoV-2 Source [employer] Swab [facility] Nasopharyngeal Swab 01/20/20 2:52 PM EDT 01/19/2021 4:38 PM EDT Comment:Symptoms->Surveillan ce Narrative Resulting Agency Comment Spec In Lab Patrick Dumont MD MICROBIOLOGY - GENER AL ORDERABLES [facility] [place] [address] * SCAN DOC: IMPLANTABLE DEVICES (01/19/2021 12:00 AM EDT) Unknown MEDIA MGR SCAN EXT O RDR/RSLT documented in this encounter Visit Diagnoses Diagnosis S/P Right ENA, 01/19/21 (Dr Dumont)- Primary Hip joint replacement by other means Primary osteoarthritis of right hip Primary localized osteoarthrosis, pelvic region and thigh Morbid obesity with BMI of 40.0-44.9, adult Morbid obesity Postoperative anemia due to acute blood loss Acute posthemorrhagic anemia documented in this encounter Admitting Diagnoses Diagnosis Primary osteoarthritis of right hip Primary localized osteoarthrosis, pelvic region and thigh S/P total hip arthroplasty Hip joint replacement by other means documented in this encounter Administered Medications Inactive Administered Medications - up to 3 most recent administrations Medication Order MAR Action Action Date Dose Rate Site acetaminophen (Tylenol) tablet 1,000 mg 1,000 mg, Oral, ONCE, 1 dose, On Sun01/19/21 at 1445, Administer on arrival in Same Day Program, Day of Surgery (Day of Procedure), Routine Given 01/19/2021 2:26 PM EDT 1,000 mg acetaminophen (Tylenol) tablet 1,000 mg 1,000 mg, Oral, EVERY 8 HOURS SCHEDULED, First dose on Sun01/19/21 at 2215, Until Discontinued, Maximum dose of acetaminophen is 4000 mg from all sources in 24 hours. When ordered for pain, acetaminophen should be given even when other ordered pain medications are indicated. , Routine Given 01/26/2021 1:06 PM EDT 1,000 mg Given 01/26/2021 6:55 AM EDT 1,000 mg Given 01/25/2021 10:35 PM EDT 1,000 mg aspirin EC tablet 81 mg 81 mg, Oral, 2 TIMES DAILY, First dose on Effie 01/20/21 at 0900, Until Discontinued, Routine Given 01/26/2021 9:0 0 AM EDT 81 mg Given 01/25/2021 8:43 PM EDT 81 mg Given 01/25/2021 8:12 AM EDT 81 mg buPROPion XL (Wellbutrin XL) tablet 150 mg 150 mg, Oral, DAILY, First dose on Sun01/20/21 at 0900, Until Discontinued, DO NOT CRUSH OR OPEN, Routine Given 01/26/2021 9:00 AM EDT 150 mg Given 01/25/2021 8:12 AM EDT 150 mg Given 01/24/2021 8:18 AM EDT 150 mg ceFAZolin (Ancef) 2 g in dextrose 5% 100 mL infusion 2 g, Intravenous, EVERY 8 HOURS, 3 doses, First dose on Sun01/19/21 at 1815, Last dose on Sun01/20/21 at 1015, Administer over 30 Minutes, Adjust to 4 hours from intraoperative dose. * Beta-lactam based antibiotics (eg. Ampicillin, Cefazolin, Aztreonam) should be administered within 4 hours of the preceding intraoperative dose. * Vancomycin, Fluoroquinolones, Clindamycin, Gentamicin, and Metronidazole should be administered within 8 hours of the preceding intraoperative dose., Recovery (Recovery-Hospital Unit), Indication for (Active or Suspected): Prophylaxis New Bag 01/20/2021 9:56 AM EDT 2 g 200 mL/hr New Bag 01/20/2021 1:21 AM EDT 2 g 200 mL/hr New Bag 01/19/2021 6:15 PM EDT 2 g 200 mL/hr celecoxib (CeleBREX) capsule 200 mg 200 mg, Oral, 2 TIMES DAILY, First dose on Sun01/19/21 at 2215, Until Discontinued, Routine Given 01/20/2021 8:25 PM EDT 200 mg Given 01/20/2021 8:47 AM EDT 200 mg Given 01/19/2021 9:44 PM EDT 200 mg celecoxib (CeleBREX) capsule 400 mg 400 mg, Oral, ONCE, 1 dose, On Sun01/19/21 at 1445, Administer on arrival to Same Day Program, Day of Surgery (Day of Procedure), Routine Given 01/19/2021 2:26 PM EDT 400 mg dexamethasone (Decadron) tablet 4 mg 4 mg, Oral, DAILY, 2 doses, First dose on Sun01/20/21 at 0900, Last dose on Sun01/21/21 at 0900, Routine Given 01/20/2021 8:49 AM EDT 4 mg gabapentin (Neurontin) capsule 300 mg 300 mg, Oral, ONCE, 1 dose, On Sun01/19/21 at 1445, Administer on arrival in Same Day Program, Day of Surgery (Day of Procedure), Routine Given 01/19/2021 2:26 PM EDT 300 mg gabapentin (Neurontin) capsule 300 mg 300 mg, Oral, NIGHTLY, First dose on Sun01/21/21 at 2100, Until Discontinued, Routine Given 01/25/2021 8:4 3 PM EDT 300 mg Given 01/24/2021 10:03 PM EDT 300 mg Given 01/23/2021 9:06 PM EDT 300 mg gabapentin (Neurontin) capsule 600 mg 600 mg, Oral, NIGHTLY, 2 doses, First dose on Sun01/19/21 at 2215, Last dose on Effie 01/20/21 at 2100, Routine Given 01/20/2021 8:25 PM EDT 600 mg Given 01/19/2021 9:44 PM EDT 600 mg HYDROmorphone (Dilaudid) (2 mg/mL) multi-dose injection solution 0.4 mg 0.4 mg, Intravenous, EVERY 10 MIN PRN, Starting on Sun01/19/21 at 1710, Until Sun01/19/21 at 2052, Pain, For Mild to Moderate Pain (1-5 out of 10), Hold for respiratory rate less than 10 per minute. Maximum dose 4 mg over one hour including administrations in the OR. If multiple pain medications are ordered, start with HYDROmorphone or morphine and use fentaNYL for breakthrough pain, PACU Recovery, Routine Given 01/19/2021 5:43 PM EDT 0.4 mg labetaloL (Normodyne) (5 mg/mL) injection solution 10-20 mg 10-20 mg, Intravenous, EVERY 2 HOURS PRN, Starting on Sun01/19/21 at 1810, Until Sun01/26/21 at 1742, High Blood Pressure, Give 10mg for SBP > 160. If SBP still > 160 after 10 minutes, may give an additional 10mg. Hold for SBP >120., Routine Given 01/19/2021 6:14 PM EDT 10 mg Lactase Tab 18,000 Units 18,000 Units (2 tablet), Oral, 3 TIMES DAILY WITH MEALS, First dose on 01/22/21 at 1345, Until Discontinued Given 01/26/2021 11:22 AM EDT 18, 000 Units Given 01/26/2021 9:01 AM EDT 18,000 Units Given 01/25/2021 4:38 PM EDT 18,000 Units lisinopriL (Zestril) tablet 10 mg 10 mg, Oral, DAILY, First dose on Effie 01/20/21 at 0900, Until Discontinued, Hold sbp<120, Routine Given 01/26/2021 9:00 AM EDT 10 mg Given 01/25/2021 8:12 AM EDT 10 mg Given 01/24/2021 8:17 AM EDT 10 mg loperamide (Imodium A-D) capsule 2 mg 2 mg, Oral, 4 TIMES DAILY PRN, Starting on Sun01/21/21 at 0536, Until Sun01/26/21 at 1742, Diarrhea, Do not exceed 16 mg/day., Routine Given 01/26/2021 9:09 AM EDT 2 mg Given 01/25/2021 12:26 PM EDT 2 mg Given 01/25/2021 8:12 AM EDT 2 mg miconazole (Micotin) 2 % powder Topical (Top), 2 TIMES DAILY, First dose on Sun01/23/21 at 1300, Until Discontinued Given 01/26/2021 9:01 AM EDT Given 01/25/2021 8:43 PM EDT Given 01/25/2021 8:15 AM EDT pantoprazole EC (Protonix) tablet 20 mg 20 mg, Oral, DAILY, First dose on Fefie 01/20/21 at 0900, Until Discontinued, DO NOT CRUSH OR OPEN Given 01/26/2021 9:00 AM EDT 20 mg Given 01/25/2021 8:12 AM EDT 20 mg Given 01/24/2021 8:17 AM EDT 20 mg sodium chloride 0.9 % (flush) (BD PosiFlush Normal Saline 0.9) flush 5 mL 5 mL, Intravenous, 2 TIMES DAILY, First dose on Sun01/19/21 at 2100, Until Discontinued, Recovery (Recovery-Hospital Unit), Routine Given 01/26/2021 9:09 AM EDT 5 mLs Given 01/25/2021 8:43 PM EDT 5 mLs Given 01/25/2021 8:13 AM EDT 5 mLs sodium chloride 0.9% 500 mL IV bolus Intravenous, ONCE, 1 dose, On Sun01/21/21 at 0815 New Bag 01/21/2021 7:50 AM EDT 250 mL/hr traMADoL (Ultram) tablet 25-50 mg 25-50 mg, Oral, EVERY 6 HOURS PRN, Starting on Sun01/19/21 at 1747, Until Sun01/26/21 at 1742, Pain, For mild pain (1-3) give 25 mg. For moderate to severe pain (4-10) give 50 mg., Routine Given 01/25/2021 10:34 PM EDT 25 mg Given 01/25/2021 4:37 PM EDT 25 mg Given 01/24/2021 11:05 PM EDT 25 mg documented in this encounter Active and Recently Administered Medications Times are shown in EDT. Scheduled Medication Order 01/24/2021 01/25/2021 01/26/2021 acetaminophen (Tylenol) tablet 1,000 mg 1,000 mg, Oral, EVERY 8 HOURS SCHEDULED, First dose on Sun01/19/21 at 2215, Until Discontinued, Maximum dose of acetaminophen is 4000 mg from all sources in 24 hours. When ordered for pain, acetaminophen should be given even when other ordered pain medications are indicated. , Routine 0602 (Given - Provider: Alina Mcgraw RN)1411 (Given - Provider: Radha Price LPN)2203 (Given - Provider: Imelda Best RN) 0517 (Given - Provider: Imelda Best RN)1355 (Given - Provider: Kandice Jack LPN)2235 (Given - Provider: Sriram Vanessa, KATINA) 0655 (Given - Provider: Sriram Vanessa RN)1306 (Given - Provider: Janette Schaefer RN) aspirin EC tablet 81 mg 81 mg, Oral, 2 TIMES DAILY, First dose on Effie 01/20/21 at 0900, Until Discontinued, Routine 0818 (Given - Provider: Selin Mejias RN)2203 (Given - Provider: Imelda Best RN) 08 (Given - Provider: Selin Mejias RN)2042 (Given - Provider: Sriram Vanessa RN) 09 (Given - Provider: Janette Schaefer, KATINA) buPROPion XL (Wellbutrin XL) tablet 150 mg 150 mg, Oral, DAILY, First dose on Effie 01/20/21 at 0900, Until Discontinued, DO NOT CRUSH OR OPEN, Routine 0818 (Given - Provider: Selin Mejias RN) 08 (Given - Provider: Selin Mejias RN) 0900 (Given - Provider: Janette Schaefer, KATINA) gabapentin (Neurontin) capsule 300 mg(Linked Group 1) 300 mg, Oral, NIGHTLY, First dose on Sun01/21/21 at 2100, Until Discontinued, Routine 2202 (Given - Provider: Imelda Best RN) 2042 (Given - Provider: Sriram Vanessa RN) Lactase Tab 18,000 Units 18,000 Units (2 tablet), Oral, 3 TIMES DAILY WITH MEALS, First dose on Sun01/22/21 at 1345, Until Discontinued 0820 (Given - Provider: Selin Mejias RN)1107 (Given - Provider: Radha Price LPN)1624 (Given - Provider: Awilda Garcia RN) 0813 (Given - Provider: Selin Mejias RN)1223 (Given - Provider: Selin Mejias RN)1638 (Given - Provider: Selin Mejias RN) 0901 (Given - Provider: Janette Schaefer, KATINA)1122 (Given - Provider: Janette Schaefer, KATINA) lisinopriL (Zestril) tablet 10 mg 10 mg, Oral, DAILY, First dose on Effie 01/20/21 at 0900, Until Discontinued, Hold sbp<120, Routine 0817 (Given - Provider: Selin Mejias RN) 08 (Given - Provider: Selin Mejias RN) 0900 (Given - Provider: Janette Schaefer, KATINA) miconazole (Micotin) 2 % powder Topical (Top), 2 TIMES DAILY, First dose on Sun01/23/21 at 1300, Until Discontinued 08 (Given - Provider: Selin Mejias RN)2205 (Given - Provider: Imelda Best, KATINA) 0815 (Given - Provider: Selin Mejias RN)2042 (Given - Provider: Sriram Vanessa, KATINA) 09 (Given - Provider: Janette Schaefer, KATINA) pantoprazole EC (Protonix) tablet 20 mg 20 mg, Oral, DAILY, First dose on Sun01/20/21 at 0900, Until Discontinued, DO NOT CRUSH OR OPEN 0817 (Given - Provider: Selin Mejias RN) 0812 (Given - Provider: Selin Mejias RN) 0900 (Given - Provider: Janette Schaefer RN) polyethylene glycoL (Miralax) packet 17 g 17 g, Oral, 2 TIMES DAILY, First dose on Sun01/19/21 at 2215, Until Discontinued, Routine 0900 (Not Given - Provider: Selin Mejias RN - Reason: Patient/family refused)2100 (Not Given - Provider: Imelda eBst RN - Reason: Patient/family refused) 0900 (Not Given - Provider: Selin Mejias RN - Reason: Patient/family refused)2099 (Not Given - Provider: Sriram Vanessa RN - Reason: Patient/family refused - Comment: lambert malcolm) 0900 (Not Given - Provider: Janette Schaefer RN - Reason: Patient/family refused) senna-docusate (Pericolace) 8.6-50 mg per tablet 2 tablet 2 tablet, Oral, 2 TIMES DAILY, First dose on Sun01/19/21 at 2215, Until Discontinued, Routine 0900 (Not Given - Provider: Selin Mejias RN - Reason: Patient/family refused)2100 (Not Given - Provider: Imelda Best RN - Reason: Patient/family refused) 0900 (Not Given - Provider: Selin Mejias RN - Reason: Patient/family refused)2100 (Not Given - Provider: Sriram Vanessa RN - Reason: Patient/family refused) 0900 (Not Given - Provider: Janette Schaefer RN - Reason: Patient/family refused) sodium chloride 0.9 % (flush) (BD PosiFlush Normal Saline 0.9) flush 5 mL 5 mL, Intravenous, 2 TIMES DAILY, First dose on Sun01/19/21 at 2100, Until Discontinued, Recovery (Recovery-Hospital Unit), Routine 819 (Given - Provider: Selin Mejias, RN)2205 (Given - Provider: Imelda Best, KATINA) 08 (Given - Provider: Selin Mejias, RN)2042 (Given - Provider: Sriram Vanessa RN) 09 (Given - Provider: Janette Schaefer RN) PRN Medication Order 01/24/2021 01/25/2021 01/26/2021 bisacodyL (Dulcolax) suppository 10 mg 10 mg, Rectal, DAILY PRN, Starting on Sun01/19/21 at 2124, Until Sun01/26/21 at 1742, Constipation, Administer if needed per patient's routine or if no bowel movement within 48 hours to achieve: (1) One bowel movement every 48 hours, AND (2) without straining. If multiple PRN bowel medications ordered, start with lactulose, then oral bisacodyl, then bisacodyl suppository. Multiple medications may be given concomitantly for constipation., Routine bisacodyl EC (Dulcolax) tablet 10 mg 10 mg, Oral, 2 TIMES DAILY PRN, Starting on Sun01/19/21 at 2124, Until Sun01/26/21 at 1742, Constipation, DO NOT CRUSH OR OPEN Administer if needed per patient's routine or if no bowel movement within 48 hours to achieve: (1) One bowel movement every 48 hours, AND (2) without straining. If multiple PRN bowel medications ordered, start with lactulose, then oral bisacodyl, then bisacodyl suppository. Multiple medications may be given concomitantly for constipation., Routine labetaloL (Normodyne) (5 mg/mL) injection solution 10-20 mg 10-20 mg, Intravenous, EVERY 2 HOURS PRN, Starting on Sun01/19/21 at 1810, Until Sun01/26/21 at 1742, High Blood Pressure, Give 10mg for SBP > 160. If SBP still > 160 after 10 minutes, may give an additional 10mg. Hold for SBP >120., Routine loperamide (Imodium A-D) capsule 2 mg 2 mg, Oral, 4 TIMES DAILY PRN, Starting on Sun01/21/21 at 0536, Until Sun01/26/21 at 1742, Diarrhea, Do not exceed 16 mg/day., Routine 0822 (Given - Provider: Selin Mejias, RN) 0812 (Given - Provider: Selin Mejias, RN)1226 (Given - Provider: Selin Mejias, KATINA) 0909 (Given - Provider: Janette Schaefer RN) traMADoL (Ultram) tablet 25-50 mg 25-50 mg, Oral, EVERY 6 HOURS PRN, Starting on Sun01/19/21 at 1747, Until Sun01/26/21 at 1742, Pain, For mild pain (1-3) give 25 mg. For moderate to severe pain (4-10) give 50 mg., Routine 0952 (Given - Provider: Selin Mejias, KATINA)1638 (Given - Provider: Awilda Garcia RN)2305 (Given - Provider: Imelda Best, KATINA) 1637 (Given - Provider: Selin Mejias, KATINA)2234 (Given - Provider: Sriram Vanessa, KATINA) Linked Groups Order Group 1: gabapentin (Neurontin) capsule 600 mg (COMPLETED) 600 mg, Oral, NIGHTLY, 2 doses, First dose on Sun01/19/21 at 2215, Last dose on Sun01/20/21 at 2100, Routine Followed by gabapentin (Neurontin) capsule 300 mgJump to med 300 mg, Oral, NIGHTLY, First dose on Sun01/21/21 at 2100, Until Discontinued, Routine documented in this encounter Care Teams Tube And Rod Straightener Relationship Specialty Start Date End Date Dandy Driscoll APRN [address] [place] [address] [place] [phone] PCP - General Family Medicine 01/20/16 documented as of this encounter
--- OUTSIDE RECORDS SUMMARY | 2024-02-27 19:34 | XMS_ITS | Encounter Summary ---
[place] [address] Care Team Providers Care Pony Roll Finisher Name Role Phone Dandy Driscoll APRN Primary Care Provider [phone] Reason for Visit * Reason Comments Post Op 01/19/21 RIGHT ENA A NT Encounter Details Date Type Department Care Team (Late st Contact Info) Description 02/17/2021 1:40 PM EST Office [place] [address] Patrick Dumont MD S/P Right ENA, 01/19/21 (Dr Dumont) Social History Tobacco Use Types Packs/Day Years [...] Sign Reading Time Taken Comments Blood Pressure 141/75 02/17/2021 1:21 PM EST Pulse 74 02/17/2021 1:21 PM EST Temperature - - Respiratory Rate - - Oxygen Saturation - - Inhaled Oxygen Concentration - - Weight 108.9 kg (240 lb 1.3 oz) 02/17/2021 1:21 PM EST Height 157.5 cm (5' 2.01) 02/17/2021 1:21 PM ES T Body Mass Index 43.9 02/17/2021 1:21 PM EST documented in this encounter Progress Notes * Patrick Dumont MD - 02/17/2021 1:40 PM EST Arthroplasty/Orthopaedic History: 1. Left ENA - 02/13/18 - Dr. Dumont 2. R TKA 2001 3. L TKA revision by Dr. Delcid 2012 1. R ENA - 01/19/2021 : Julia HPI: Stacy Knight is a very pleasant 70 y.o. year-old female and is now 4 weeks post right total hip replacement. The patient has been doing well. Pain is controlled without any medications.. No fevers, chills, nausea, vomiting, or symptoms of infection. Stacy has been ambulating with crutches andworking with PT. She is not currently taking narcotic pain medicine. Anticoagulation status ASA 81mg BID for 30 days discussed stop date today, has beenonly taking oncea day. ROS: Denies: fever, chills, night sweats, nausea, or vomiting BP 141/75 Pulse 74 Ht 157.5 cm (5' 2.01) Wt 108.9 kg (240 lb 1.3 oz) BMI 43.90 kg/m?? Physical Exam: Well-appearing female in no acute distress. Alert and Oriented x 3 and answers all questions appropriately. The incision is well healed, with no signs of infection. Hip Exam: Right Leg length: Longer leg: equal Limb Length discrepancy: 0cm Motion: Flexion contracture: 0 Total degrees of Flexion:90 Total degrees of Abduction:not tested Total degrees of Ext Rotation: 15 Total degrees of Internal Rotation: 15 Gait Abnormality: Antalgic Pulses Palpable: Right PT: not tested Right DP:not tested Motor/Sensory: Right Distal Motor: Normal Distal Sensory: Normal and Abnormal Hip Abductors not tested Trendelenburg test: not tested X-RAYS: Multiple radiographic views were obtained at my request and reviewed with the patient. X-rays show a well-placed prosthesis with no evidence of fracture, subsidence, loosening, or periprosthetic complication. Questionnaire Responses: [facility] Surgical Postop Visit 02/17/2021 PROMIS-10 General Health Very Good PROMIS-10 Quality of Life Good PROMIS-10 Physical Health Very Good PROMIS-10 Mental Health Very Good PROMIS-10 Social Activity Very Good PROMIS-10 Everyday Activities Mostly PROMIS-10 Pain 2 PROMIS-10 Fatigue Mild PROMIS-10 Social Roles Good PROMIS-10 Anxious or Depressed Rarely PROMIS PHYSICAL HEALTH SCORE 50.8 PROMIS MENTAL HEALTH SCORE 50.8 HOOS JR Scores 80.56 KOOS JR Scores - Problems with surgical incision/wound after surgery No Gone to ER since knee surgery No Admitted to hospital since recent ortho surgery No Additional surgery on same body part No TKA Grade - Pain in other KNEE - ENA Grade 1 Pain in other HIP Mild Back pain at this moment None Satisfaction with Treatment Satisfied Choose Same Treatment Again Definitely yes [facility] Response 02/17/2021 HOOS JR Scores 80.56 KOOS JR Scores - Spine [facility] Response 02/17/2021 HOOS JR Scores 80.56 KOOS JR Scores - ASSESSMENT/PLAN: Ms. Knight is a 70 y.o. year old female status post right total hip replacement. Doing well postoperatively. Continue weightbearing as tolerated and working on range of motion. We will see her back in 1 years for repeat examination. X-rays will be needed at that time. Patient may return to normal activities as her pain and function allow. We discussed the appropriate precautions surrounding dental prophylaxis; according to the AAOS Appropriate Use Criteria we do recommend antibiotic use prior to dental procedures for Stacy. Recommended antibiotic: Amoxicillin (50mg/kg, maximum 2 gm) 1 hour prior to dental work; dose: 2000mg If Stacy has any changes in health status we recommend she contact our office prior to dental procedures for updated recommendations We also discussed maintaining good foot care and giving prompt attention to any source of infectionthroughout the body including foot ulcers and urinary tract infections. All questions were answered. Signed: Patrick Dumont MD 02/17/2021 documented in this encounter Plan of Treatment Upcoming Encounters Date Type Department Care Team (Late st Contact Info) Description 03/04/2024 12:00 PM EST Office Visit [place] [address] Jordyn Francisco MD [facility] [place] [address] documented as of this encounter Results * [...] who have questions please contact the health care coordination manager that requested your imaging first. ? Narrative [...] patients who have questions please contactthe health care coordination manager that requested your imaging first. Patrick Dumont MD IMG DX ORDERABLES documented in this encounter Visit Diagnoses Diagnosis S/P Right ENA, 01/19/21 (Dr Dumont) Hip joint replacement by other means S/P Right ENA, 01/19/21 (Dr Dumont) Hip joint replacement by other means documented in this encounter Care Teams Pony Roll Finisher Relationship Specialty Start Date End Date Dandy Driscoll APRN [address] [place] [address] [place] [phone] PCP - General Family Medicine 01/20/16 documented as of this encounter
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
--- OUTSIDE RECORDS SUMMARY | 2024-02-27 19:34 | XMS_ITS | Encounter Summary ---
[place] [address] Care Team Providers Care Cut Lace Machine Operator Name Role Phone Dandy Driscoll APRN Primary Care Provider [phone] Reason for Referral * Consultation (Urgent) - Closed Specialty Diagnoses / Procedures Referred By Contac t Referred To Contact Gynecology Oncology Diagnoses Malignant neoplasm of endometrium Schedule within 4 weeks. May 06. Endometrial cancer Paco Sheppard MD [address] [place] [phone] [facility] [employer] [address] [place] [phone] Referral ID Status Reason Start Date Expiration Date V isits Requested Visits Authorized [id number] Closed Consult, Test & Treat PCP Updated and/or Approved 04/04/2023 10/04/2023 6 6 Encounter Details Date Type Department Care Team (Latest Contact Info) Description 04/04/2023 Transcribe Orders eDH Incoming Referrals [phone] Paco Sheppard MD [address] [place] [phone] Malignant neoplasm of endometrium Social History Tobacco Use Types Packs/Day Years [...] PM EST Office Visit [place] [address] Jordyn Francisco MD [facility] OBSTETRICS [place] [address] Scheduled Referrals Name Type Priority Associated Diagnoses Orde r Schedule Referral to Gynecologic Oncology Outpatient Referral Routine Malignant neoplasm of endometrium Ordered: 04/04/2023 documented as of this encounter Visit Diagnoses Diagnosis Malignant neoplasm of endometrium Malignant neoplasm of corpus uteri, except isthmus documented in this encounter Care Teams Cut Lace Machine Operator Relationship Specialty Start Date End Date Dandy Driscoll APRN [address] [place] [address] [place] [phone] PCP - General Family Medicine 01/20/16 documented as of this encounter
--- OUTSIDE RECORDS SUMMARY | 2024-02-27 19:34 | XMS_ITS | Encounter Summary ---
Author Organization [facility] [place] [address] Care Team Providers Care Spinner Frame Name Role Phone Dandy Driscoll APRN Primary Care Provider [phone] Encounter Details Date Type Department Care Team (Late st Contact Info) Description 05/23/2023 Notes [place] [phone] Salma Stevenson, RN Social History Tobacco Use Types Packs/Day Years Used Date Smoking Tobacco: Former Cigarettes Q uit: 10/1978 Smokeless Tobacco: Never Alcohol Use Standard Drinks/Week Comments No 0 (1 standard drink = 0.6 oz pur e alcohol) [facility] Utilities Answer Date Recorded In the [...] as of this encounter Progress Notes * Salma Stevenson RN - 05/23/2023 10:37 AM EST Images from the original note were not included. High Risk Interdisciplinary Geriatric Surgery Conference Report Patient: Stacy Knight Date of Conference: Surgery Final Operations Technician: Anesthesia Final Operations Technician: Nursing Final Operations Technician: Case Management/Social Work Rep: Geriatric Medicine Final Operations Technician: Psychiatry Final Operations Technician: 05/23/2023 Rosario Olmos/ Parker Herring /Caroline Stevenson N/a Xiomy Grissom N/a No data to display Brief History of Present Illness: Stacy Knight is a 73 y.o. female. Patient's recent notable history includes: atypical endometrial hyperplasia; aortic stenosis; HFpEF, echo (2022) EF65-70%; HTN; HLD; COPD; asthma; MARTHA (no CPAP); DM2; impaired renal function; osteoarthritis; s/p right ENA (2020); right TKA (2001); left knee revision (2012); depression; hypersomnia; restless legs syndrome; irritable bowel syndrome; chronic pain; morbid obesity; BMI 50. Overall Health & Treatment Goals: N/a Postoperative Care Planning: Patient lives alone in [place], [place]. One step to enter one level home.Patient has no post-op support, and will be relying on rural transportation services and her brother, who lives 90 minutes away, for transportation on the day of surgery. Preoperative Geriatric Vulnerability Screening Results: Age > 85: No No data to display Advanced Directives: On file in eDH?: N DPOA Activated (If yes, provide contact information): NO Preoperative Code Status: Full Code Notes / Comments for Patient Admission: Overall Interdisciplinary Assessment: Proceed with surgery without any further workup / intervention Anesthesia Recommendation: Use high risk geriatric anesthesia pathway Impaired Cognition: N/A Delirium Risk: Implement postoperative delirium prevention pathway Impaired Functional Status: N/A Impaired Mobility: PT/OT consultation with visit POD1 Malnutrition: N/A Difficulty Swallowing: N/A Palliative Care: N/A Other: Communication Plan: Note signed and available in eDH, Note routed to surgeon and Note routed to PCP Please consider use of the Postoperative Geriatric Surgery [place] Order set for standard recommendations regarding delirium prevention and pain management. Specific recommendations include: - Patient should be considered a high risk for falls while inpatient, reporting that she has urinary urgency, and that once she falls, she is unable to gt herself back on her feet. - Advise PT/OT evaluation prior to discharge, as patient will be going home alone. Thank you for allowing us to participate in the care of Ms. Knight. Please consider a consult to Gerontology service (pager [phone]), if indicated, and do not hesitate to contact the [facility] program with further questions or concerns. documented in this encounter Plan of Treatment Upcoming Encounters Date Type Department Care Team (Late st Contact Info) Description 03/04/2024 12:00 PM EST Office Visit [place] [address] Jordyn Francisco MD [facility] [place] [address] documented as of this encounter Visit Diagnoses Not on filedocumented in this encounter Care Teams Spinner Frame Relationship Specialty Start Date End Date Dandy Driscoll APRN [address] [place] [address] SHELLI Reich [phone] PCP - General Family Medicine 01/20/16 documented as of this encounter
--- OUTSIDE RECORDS SUMMARY | 2024-02-27 19:34 | XMS_ITS | Encounter Summary ---
Author Organization [facility] Address [facility] [place] [address] Care Team Providers Care Physician Assistant Surgery Name Role Phone Dandy Driscoll APRN Primary Care Provider [phone] Reason for Visit * Consultation (Urgent) - Closed Specialty Diagnoses / Procedures Referred By Contac t Referred To Contact Gynecology Oncology Diagnoses Malignant neoplasm of endometrium Schedule within 4 weeks. May 06. Endometrial cancer Paco Sheppard MD [address] [place] [address] [address] [place] [address] [facility] [address] [place] [address] Referral ID Status Reason Start Date Expiration Date V isits Requested Visits Authorized [id number] Closed Consult, Test & Treat PCP Updated and/or Approved 04/04/2023 10/04/2023 6 6 Encounter Details Date Type Department Care Team (Latest Contact Info) Description 05/08/2023 1:00 PM EST Office Visit [place] [address] Marietta Ohara MD [facility] [place] [address] EIN (endometrial intraepithelial neoplasia) (Primary Dx) Social History Tobacco Use Types Packs/Day Years [...] Sign Reading Time Taken Comments Blood Pressure 126/68 05/08/2023 12:33 PM EST Pulse 85 05/08/2023 12:33 PM EST Temperature 36.4 ??C (97.5 ??F) 05/08/2023 1 2:33 PM EST Respiratory Rate 16 05/08/2023 12:3 3 PM EST Oxygen Saturation 95% 05/08/2023 12: 33 PM EST Inhaled Oxygen Concentration - - Weight 111.7 kg (246 lb 4.8 oz) 024 12:33 PM EST Height 149.2 cm (4' 10.74) 05/08/2023 12:33 PM EST Body Mass Index 50.19 05/08/2023 12:33 PM EST documented in this encounter Progress Notes * June Maria MD - 05/08/2023 1:00 PM EST Gynecologic Oncology Clinic Division [place] [address] Gynecologic Oncology Clinic Note: New patient visit. Referring Provider: Paco Sheppard MD [address] [place] [id number] Reason for visit/referral: Atypical endometrial hyperplasia History of present illness: Vaginal bleeding for the last 3-4 weeks, with preceding 6-7 years without bleeding. Not currently bleeding. Bleeding itself was mild and only caused some spotting on her panty liner. Typically only noted the spotting once per day and was intermittent over the course of 3-4 weeks. Stopped when taking Bactrim for UTI at [facility], but then started up again. EMB done at [facility] in [place], [place] with results showing EIN. Denies any medical interventions. Review of systems: Does have some nausea/vomiting which started 1 month ago, off and on. Not consistently postprandial. Denies abdominal pain/distension. Always has diarrhea, has a history of IBS. Denies fevers/chills. Denies weight changes. Problem List Patient Active Problem List Diagnosis [...] anemia due to acute blood loss D62 Gynecologic history: Menarche was approximately age: [age] [...] - CHF, follows with Dr. 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 Propoxyphene Hcl Itching Performance status: ECOG/WHO score [...] helps her. Does sometimes have folks from [employer] who willhelp her out. Vital signs: BP 126/68 (Patient Position: Sitting) Pulse 85 Temp 36.4 ??C (97.5 ??F) (Temporal) Resp 16 Ht 149.2 cm (4' 10.74) Wt 111.7 kg (246 lb 4.8 oz) SpO2 95% BMI 50.19 kg/m?? Physical examination: General: She is alert and oriented, well-groomed and dressed, no obvious distress. She ambulates easily. HEENT: EOMI, no scleral icterus. Mucus membranes were moist. Neck was supple and without thyromegaly or adenopathy. Lungs: Clear to auscultation bilaterally Heart: 3/6 systolic murmur, otherwise regular rate and rhythm Abdomen:Soft, non tender, non distended. No HSM, no palpable masses. Pelvic exam: External female genitalia notable for erythema and white exudate consistent with mild yeast in inguinal folds bilaterally. The urethra is without masses. The urethral meatus is without prolapse. There are no vaginal lesions. Cervix visualized and notably is without lesion. Bimanual exam reveals no pelvic masses. The rectovaginal exam reveals no masses or rectovaginal septum nodularity or thickening. The anal sphincter tone is normal and there are no rectal masses. Extremities: No edema. Laboratory studies: Pathology studies: ENDOMETRIUM, BIOPSY: (03/20/23) - At least atypical hyperplasia, bordering on endometrial carcinoma, endometrioid type. See comment. Comment: Tacker Off slides of this case were reviewed at the intradepartmental consultation conference. Immunohistochemical staining for mismatch repair (MMR) proteins for [place] Werner Screening has been ordered on block A1. Retained expression of MLH1, PMS2, MSH2 and MSH6. Imaging studies: none Impression/plan: Stacy is a 73 y.o. woman with a diagnosis of atypical endometrial hyperplasia, or endometrial intraepithelial lesion (EIN). Discussed with patient nature of lesion as pre-cancerous, though 30-50% of individuals who have a hysterectomy for EIN have evidence of endometrial cancer on pathologic review of the uterus. (1) Discussed that hysterectomy would be likely definitive management, though would pose its own risks, particularly given Stacy's many medical co-morbidities. Of note, given Stacy's family history of colon cancer in her father at a young age, one may consider the diagnosis of Werner syndrome; however, as noted in the pathologic review, MMR proteins noted to have retained expression, thus low concern for Stacy's cancer being secondary to Werner Syndrome. Plan at present as below. - Surgery tentatively scheduled for July 23 - Plan for: robotic assisted laparoscopic hysterectomy, unilateral salpingectomy, bilateral oophorectomy; will discuss possible sentinel lymph node dissection at follow up appointment - Telehealth f/u in 1 month to ensure plan for home care - To meet with PAT today, recommend review of most recent ECHO performed in [place], [place] Management of Endometrial Intraepithelial Neoplasia or Atypical Endometrial Hyperplasia: ACOG Clinical Consensus No. 5. Obstet Gynecol. 2022 1;142(3):735-744. doi: 10.1097/[id number]. PMID: [id number]. June Maria MD [facility] Resident Pager: [phone] 05/08/2023 1:57 PM I have seen and examined the patient and reviewed and edited the resident's above history and I agree with the details as written. The assessment and plan were formulated in discussion with me and I agree with them as documented. Marietta Ohara MD documented in this encounter Plan of Treatment Upcoming Encounters Date Type Department Care Team (Late st Contact Info) Description 03/04/2024 12:00 PM EST Office Visit [place] [address] Jordyn Francisco MD [facility] [address] [place] [address] documented as of this encounter Results * Type and Screen Future Surgery, [facility] SAME DAY PROGRAM ONLY) (05/08/2023 2:54 PM EST) ABORH Type A NEGATIVE [facility] Patient BB History Found [facility] Expires at 6108 on: 06-22-2023 [facility] Ab Screen Interp Negative [facility] Blood 05/08/2023 2:54 PM EST 05/08/2023 2:54 PM EST Narrative Resulting Agency Comment Spec In Lab Marietta Ohara MD BLOOD BANK LAB ORD ERABLES [facility] [place] [address] * (ABNORMAL) Hemoglobin A1c (05/08/2023 2:54 PM EST) Hemoglobin A1c 6.2(H) 4.3 - 5.6 % [facility] Comment: Reference Range: 4.3 - 5.6% [...] Mellitus, Diabetes Care 2013; 36: Suppl. 1, S62-55 Estimated Average Glucose See note mg/dL [facility] Comment: Estimated Average Glucose not appropriate for patients over 70 years of age. Blood 05/08/2023 2:54 PM EST 05/08/2023 3:08 PM EST Narrative Resulting Agency Comment Spec In Lab Marietta Ohara MD CHEMISTRY ORDERABL ES [facility] [place] [address] * Comprehensive metabolic panel (non-fasting) (05/08/2023 2:54 PM EST) Glucose 101 65 - 199 mg/dL [facility] Comment:Diabetes: >=200 mg/d L plus symptoms Blood Urea Nitrogen 16 8 - 18 mg/dL [facility] Creatinine 0.80 0.70 - 1.20 mg/dL [facility] Sodium 138 135 - 145 mmol/L [facility] Potassium 4.2 3.5 - 5.0 mmol/L [facility] Comment: Please note: ??Patients with WBC >100,000 may have falsely elevated Potassium levels. ??For accurate Potassium quantification in these patients send serum separator tube (gold top) for subsequent determinations. ??Contact the Clinical Chemistry Laboratory if there are any questions. Chloride 104 98 - 107 mmol/L [facility] Carbon Dioxide 24 22 - 31 mmol/L [facility] Anion Gap 10 5 - 15 mmol/L [facility] Calcium 9.7 8.5 - 10.5 mg/dL [facility] Protein, Total 7.3 6.1 - 8.0 g/dL [facility] Albumin 4.1 3.2 - 5.2 g/dL [facility] Aspartate Aminotransferase 13 0 - 30 unit/L [facility] Alanine Aminotransferase 9 0 - 30 unit/L [facility] Alkaline Phosphatase 69 35 - 105 unit/L [facility] Bilirubin, Total 0.6 0.2 - 1.3 mg/dL [facility] Est Glomerular Filtration Rate 78 >=60 mL/min/1. 73 m?? [facility] Comment: This patient's estimated GFR [...] Lab Marietta Ohara MD CHEMISTRY ORDERABL ES [facility] [place] [address] documented in this encounter Visit Diagnoses Diagnosis EIN (endometrial intraepithelial neoplasia)- Primary Endometrial intraepithelial neoplasia (EIN) documented in this encounter Care Teams Physician Assistant Surgery Relationship Specialty Start Date End Date Dandy Driscoll APRN [address] [place] [address] [place] [address] PCP - General Family Medicine 01/20/16 documented as of this encounter
--- OUTSIDE RECORDS SUMMARY | 2024-02-27 19:34 | XMS_ITS | Encounter Summary ---
[place] [address] Care Team Providers Care Hand Roller Name Role Phone Dandy Driscoll APRN Primary Care Provider [phone] Reason for Referral * Physical Therapy (Routine) - Closed Specialty Diagnoses / Procedures Referred By Contac t Referred To Contact Physical Therapy Diagnoses Presence of right artificial hip joint Patrick Dumont MD [facility] DR ORTHOPA[place] [address] Referral ID Status Reason Start Date Expiration Date V isits Requested Visits Authorized [id number] Closed Evaluate and Treat Non PCP 03/04/2021 08/31/2021 20 20 Reason for Visit * Reason Onset Date Comments Physical Therapy 03/02/2021 Encounter Details Date Type Department Care Team (Late st Contact Info) Description 03/02/2021 Telephone [place] [phone] Patrick Dumont MD Physical Therapy Social History Tobacco Use Types Packs/Day Years [...] encounter Miscellaneous Notes * Telephone Encounter - Nery Hamilton - 03/02/2021 11:12 AM EST Who is calling: patient/physical or occupational therapist?Cj Best call back number: [phone] Best time to call back between 8:00 am & 5:00 pm: anytime Can we leave a message? yes Where do they have their PT/OT?[facility] Therapy Office What they need:Need a physical therapy order faxed. Your message will be forwarded to the clinical care team for review. (This message should be forwarded to the [facility] pool.) documented in this encounter Plan of Treatment Upcoming Encounters Date Type Department Care Team (Late st Contact Info) Description 03/04/2024 12:00 PM EST Office Visit [place] [address] Jordyn Francisco MD [facility] DR OBSTETRICS [place] [address] Scheduled Referrals Name Type Priority Associated Diagnoses Orde r Schedule Referral to Physical Therapy Outpatient Referral Routine S/P Right ENA, 01/19/21 (Dr Dumont) Ordered: 03/04/2021 documented as of this encounter Visit Diagnoses Diagnosis S/P Right ENA, 01/19/21 (Dr Dumont) Hip joint replacement by other means documented in this encounter Care Teams Hand Roller Relationship Specialty Start Date End Date Dandy Driscoll APRN [address] [place] [address] SHELLI Reich [phone] PCP - General Family Medicine 01/20/16 documented as of this encounter
--- OUTSIDE RECORDS SUMMARY | 2024-02-27 19:34 | XMS_ITS | Encounter Summary ---
Author Organization [facility] Address [facility] [place] [address] Care Team Providers Care School Health Assistant Name Role Phone Dandy Driscoll APRN Primary Care Provider [phone] Encounter Details Date Type Department Care Team (Latest Contact Info) Description 02/23/2022 10:45 AM EST - 02/23/2022 11:59 PM [facility] Hospital Encounter XRay at [address] [place] [address] Patrick Dumont MD H/O total knee replacement, bilateral; H/O total hip arthroplasty, bilateral Discharge Disposition: Home Social History Tobacco Use [...] Kit Take 500 mg by mouth. 11/21/2021 acetaminophen (Tylenol) 500 mg Tablet Take 2 [...] the lungs every 4 hours as needed. miconazole (Micotin) 2 % Powder Apply topically 2 times daily. 01/26/2021 12/04/2023 meloxicam (MOBIC) 7.5 mg TabletIndications:Primar y osteoarthritis of right hip Take 1 tablet [...] PM EST Office Visit [place] [phone] Jordyn Francisco MD [facility] OBSTETRICS [place] [address] documented as of this encounter Procedures Procedure Name Priority Date/Time Associated Diagnosis Comments XR PELVIS AND HIP 2 VIEWS BILATERAL Routine 02/23/2022 11:34 AM EST H/O total hip arthroplasty, bilateral XR KNEE AP AND LAT BILAT Routine 02/23/2022 11:34 AM EST H/O total knee replacement, bilateral documented in this encounter Results * XR [...] who have questions please contact the health personal care aide that requested your imaging first. ? Electronically signed by: Elke Samaniego MD, [facility] ([phone]), at 02/23/2022 1:43 PM Narrative 02/23/2022 1:43 PM EST EXAMINATION: XR PELVIS AND HIP 2 VIEWS BILATERAL CLINICAL HISTORY: LT ENA DOS 02/13/18 & RT ENA DOS 01/19/21 (BOTH DUMONT) TECHNIQUE: AP pelvis with AP and lateral [...] patients who have questions please contactthe health personal care aide that requested your imaging first. Electronically signed by: Elke Samaniego MD, [facility]([phone]), at 02/23/2022 1:43 PM Patrick Dumont MD IMG DX ORDERABLES * [...] who have questions please contact the health personal care aide that requested your imaging first. ? Electronically signed by: Shanice Lee MD, [facility] ([phone]), at 02/23/2022 12:14 PM Narrative 02/23/2022 12:14 PM EST EXAMINATION: XR [...] patients who have questions please contactthe health personal care aide that requested your imaging first. Patrick Dumont MD IMG DX ORDERABLES documented in this encounter Visit Diagnoses Diagnosis H/O total knee replacement, bilateral H/O total hip arthroplasty, bilateral documented in this encounter Care Teams School Health Assistant Relationship Specialty Start Date End Date Dandy Driscoll APRN [address] [place] [address] [place] [phone] PCP - General Family Medicine 01/20/16 documented as of this encounter
--- OUTSIDE RECORDS SUMMARY | 2024-02-27 19:34 | XMS_ITS | Encounter Summary ---
Author Organization [facility] [place] [address] Care Team Providers Care Faculty Head Name Role Phone Dandy Driscoll APRN Primary Care Provider [phone] Encounter Details Date Type Department Care Team (Late st Contact Info) Description 05/20/2023 Telephone [place] [phone] Salma Stevenson, RN Social History Tobacco Use [...] encounter Miscellaneous Notes * Telephone Encounter - Salma Stevenson RN - 05/20/2023 12:16 PM EST [facility] Geriatric Surgery Intake Stacy Marisol Knight is 73 y.o. Referral Source: PCC Intended Surgery: robotic-assist total abdominal hysterectomy Date of Surgery: 07/24/2023 Dandy Driscoll APRN has pre-op appt 07/08. Has ability to have Telehealth appointment PHONE CM Initial Assessment: Source of information: Patient Readmission within the last 30 days: no previous admission in last 30 days Decision Maker: Self Order of surrogacy information: Advanced directive: Yes, not on file Who is your DPOA-HC: Sibling Did you serve in the : No Are you enrolled in the VA for your healthcare: Are you here under your VA benefit: Current or prior mental health history: Living Environment: People in home: alone Current living arrangements: home/apartment/condo Home accessibility (concerns, stairs, handicapped accessibility, etc.): [facility] Resource/environmental concerns: none Environment concerns: Financial concerns: Home accessibility concerns: other (see comments) Transportation: no concerns Current care provided by: self Caregiver phone number: Provides primary care for: no one Caregiver if needed: none Primary caregiver(s) name: Quality of family relationships: non-existent Able to return to prior arrangement at discharge or after rehab: yes Current outpatient/agency/support: other (see comments) (has rural transportation) Functional Status: Current functional status: Prior functional status: Assistive Equipment Equipment currently used at home: other (see comments) Patient/Family Anticipated Discharge: Patient/family anticipates transition to : home alone Patient/family anticipated services at transition: none Transportation anticipated: family or friend will provide Concerns to be addressed: no discharge needs identified Advance Directives Has paperwork to complete. DPOA will be brother Harshad. AD8 Score: (2 or greater is considered a risk factor for post-op delirium): 2 (05/15/2023 1:00 PM) Frailty Score (Scale 1-Very Fit to 9-Terminally Ill): 3 (05/08/2023 3:00 PM) MINI-COG Score: A cut point of <3 on the MINI-COG has been validated for dementia screening, but many individuals with clinically meaningful cognitive impairment will score higher. When greater sensitivity is desired, a cut point of <4 is recommended as it may indicate a need for further evaluation of cognitive status. documented in this encounter Plan of Treatment Upcoming Encounters Date Type Department Care Team (Late st Contact Info) Description 03/04/2024 12:00 PM EST Office Visit [place] [address] Jordyn Francisco MD [facility] [place] [address] documented as of this encounter Visit Diagnoses Not on filedocumented in this encounter Care Teams Faculty Head Relationship Specialty Start Date End Date Dandy Driscoll APRN [address] [place] [address] SHELLI Reich [phone] PCP - General Family Medicine 01/20/16 documented as of this encounter
--- OUTSIDE RECORDS SUMMARY | 2024-02-27 19:34 | XMS_ITS | Encounter Summary ---
Author Organization [facility] [place] [address] Care Team Providers Care Accounting Intern Name Role Phone Dandy Driscoll APRN Primary Care Provider [phone] Reason for Visit * Auth/Cert (Routine) Specialty Diagnoses / Procedures Referred By Contac t Referred To Contact Diagnoses ATYPICAL HYPERPLASIA Procedures PRO LAPAROSCOPY W TOT HYSTERECTUTERUS <=250 GRAM W TUBE/OVARY LAPAROSCOPY,TOTAL HYST, UTERUS<250GM, REM TUBE &/OR OVARY, ROBOTIC ASSIST (WRVU 15) MODIFIER ROBOT,DAVINCI Marietta Kendrick MD [facility] [place] [address] [facility] Referral ID Status Reason Start Date Expiration Date Visits Re quested Visits Authorized [id number] 1 1 Encounter Details Date Type Department Care Team (Late st Contact Info) Description 07/24/2023 7:30 AM EDT Anesthesia Event [place] [phone] Chip Morrissey MD [facility] [place] [address] Zenia Rice APR[place] [address] Anesthesia Record Procedure Summary Procedure Name Responsible Anesthesiologist Anesthesia Start Time Anesthesia Stop Time ROBOTIC LAPAROSCOPY,TOTAL HYST, UTERUS<250GM, REM TUBE &/OR OVARY (WRVU 15) (Uterus) Events Date Time Event Comment 07/24/2023 [id number] Procedure Not Performed Proc edure cancelled prior to OR by surgeon for post-op placement and care concerns. Meds * Agents No agents on file. * Blood No blood administrations on file. Lines, Drains, and Airways Type Details Placement Removal Incision 01/19/21; Right, anterior; hip 1 0000 by Elle Womack RN Wound 01/22/21; 2317; Left , anterior, upper; other (see comments) (thigh); blister(s), skin tear 01/22/21 2317 by Yvon Jones RN Pressure Injury 02/07/24; 1440; Y; m idline; coccyx; Covered with mepilex. Notified compliance field technician-onc team 02/07/24 1440 by Tobias Bolivar RN Incision 02/07/24; 1735; midl ine; laparoscopic punctures (specify) (multiple trocar sites) 02/07/24 173 by Avani Gibson RN documented in this encounter Social History Tobacco Use Types Packs/Day Years Used Date Smoking Tobacco: Former Cigarettes Q uit: 10/1978 Smokeless Tobacco: Never Alcohol Use Standard Drinks/Week Comments No 0 (1 standard drink = 0.6 oz pur e alcohol) [facility] Utilities Answer Date Recorded In the past 12 months has th e [employer] gas, oil, or water [employer] threatened to shut off services in your [...] a long term (including now)? No 05/20/2023 DH IPV Inpatient [...] OR Notes * Anesthesia Preprocedure Evaluation - Chip Morrissey MD - 05/15/2023 4:27 PM EST Images from the original note were not included. Pre-Anesthesia Evaluation for: Stacy Knight a 73 y.o. female. Procedure(s): LAPAROSCOPY,TOTAL HYST, UTERUS<250GM, REM TUBE &/OR OVARY, ROBOTIC ASSIST (WRVU 15) MODIFIER ROBOT,JAVAN HARRIS Patient Active Problem List Diagnosis Date Noted ??? Postoperative anemia due to acute blood [...] 09/13/2010 ??? Mental health problem depression ??? Possible T2DM History History of Jardiance use, on Ozempic for weight loss now ??? Postoperative anemia due to acute blood loss 01/25/2021 ??? Transfusion history 1983 ??? Vertigo fell out of chair in past week or so Past Surgical History: Procedure Laterality Date ??? JOINT REPLACEMENT ??? PRG RADEX HIP UNILATERAL WITH PELVIS MINIMUM 4 VIEWS Left 02/13/2018 HIP INTRAOP RADIOLOGIC EXAMINATION, UNILATERAL, W PELVIS; 4+ VIEWS (WRVU 0.27) performed by Patrick Dumont MD at [facility] MAIN OR ??? PRG RADEX HIP UNILATERAL WITH PELVIS MINIMUM 4 VIEWS Right 01/19/2021 HIP INTRAOP RADIOLOGIC EXAMINATION, UNILATERAL, W PELVIS; 4+ VIEWS (WRVU 0.27) performed by Patrick Dumont MD at [facility] MAIN OR ??? PRO ARTHROPLASTY ACETABULAR/PROX FEM PROSTC AGRFT/ALGRFT Left 02/13/2018 @TOTAL HIP ARTHROPLASTY, ANTERIOR APPROACH (WRVU 20.72) performed by Patrick Dumont MD at [facility] MAIN OR ??? PRO ARTHROPLASTY ACETABULAR/PROX FEM PROSTC AGRFT/ALGRFT Right 01/19/2021 TOTAL HIP ARTHROPLASTY, ANTERIOR APPROACH (WRVU 20.72) performed by Patrick Dumont MD at [facility] [place] ??? PRO REVISE KNEE JOINT REPLACE, ALL PARTS 11/11/2012 @TOTAL KNEE REVISION ARTHROPLASTY, COMPLETE performed by Carlos Delcid MD at [facility] MAIN OR Social History Tobacco Use ??? Smoking status: Former Packs/day: 0.00 Years: 0.50 Additional pack years: 0.00 Total pack years: 0.00 Types: Cigarettes Quit date: 1980 Years since quittin.1 ??? Smokeless tobacco: Never Substance Use Topics ??? Alcohol use: No Social History Substance and Sexual Activity Drug Use No Allergies Allergen Reactions ??? Adhesive Tape Rips the skin off when removing ??? Isopropyl Alcohol Rash ??? Meperidine Hcl Other (See Comments) Very Loopy ??? Penicillins Other (See Comments) SWELLS UP (age 15) [facility] Penicillin Allergy Risk Assessment 11/05/2020: Low risk penicillin allergy. OK to receive full dose of cefazolin, cefuroxime, or any 3rd or 4th+ generation cephalosporin. [facility] Penicillin Allergy Risk Assessment 05/08/2023: Low risk penicillin allergy. OK to receive full dose of cefazolin, cefuroxime, or any 3rd or 4th+ generation cephalosporin. [facility] Clinic CRM MARKETING MANAGER to place Allergy referral for formal penicillin allergy evaluation. Patient open to a phone consult from all.Clinic ??? Propoxyphene Hcl Itching Medications: MAR and/or home medications have been reviewed. Physical Exam: Preprocedure Vitals Current as of 05/16/23 1627 No BP, pulse, respiration, SpO2, or temperature recorded. Height: Weight: BMI: IBW: 38.6 kg (85 lb 1.8 oz) Airway Assessment: Mallampati: II TM distance: >3 FB Neck ROM: full Cardiovascular Assessment: Rhythm: regular Pulmonary Assessment: unlabored breathing Dental Assessment: Misc Assessment: IV access: Peripheral line Last Filed Perioperative Cognitive Screening Value Time User AD8 Total Score: 2 05/15/2023 1:00 PM Zenia Rice APRN AD8 Informant: Patient 05/15/2023 1:00 PM Zenia Rice APRN 4AT TOTAL Score: 0 01/26/2021 7:47 AM Janette Schaefer RN CFS Frailty Score: 3 05/08/2023 3:00 PM Gerardo Ken, RN Anesthesia Plan: ASA 3 general, with a(n) intravenous induction 73 yo woman for robotic laparoscopic total hysterectomy Chart and labs reviewed; patient seen and examined MEDICAL HISTORY: #HFpEF: echo 04/2022 EF 65-70%, (on entresto, torsemide) #aortic stenosis: mild on echo from 04/2022 #HTN: bp have been well controlled per chart review #COPD: hasn't used rescue inhaler in many months #Type 2 DM (A1C 6.2 from 05/08/23) #GERD #MARTHA: does not wear CPAP #BMI 50: on ozempic (reports intermittent nausea and vomiting since starting this mediation) DASI 18.95/ 5.07METs. Denies chest pain or palpitations. No SOB with daily activities. LE edema is well controlled per patient on torsemide. Denies orthopnea. No dizziness or syncope. She is followedby clinical staff rn Dr. Hoang at [facility], last seen in April 2023 TTE 04/24/22 [facility] (under media) EF 65-70% with no WMAs. Mildly dilated RV with preserved function. LA mildly dilated. Mild AD8:2 Social History: Tobacco Use: Smoked for 6 months in her 20s Alcohol: Denies SURGICAL HISTORY: salpingectomy, 3 knee surgeries, 2 hip surgeries ANESTHETIC HISTORY: Denies any previous complications related to anesthesia; prior MAC 3 Gr1 view Assessment/Plan: ASA 3 GA/ETT; routine monitors; adequate IV access Risks, plans, and procedures discussed with patient who understands and consents; questions and concerns addressed ADDENDUM: Procedure cancelled by surgeon for patient post-op placement and care concerns. Region - Other Informed Consent: Anesthetic plan and risks discussed with patient. Use of blood products discussed with patient who consented to blood products. Plan discussed with CAR WHACKER. Anesthesia Screening Note: Date and Time of Entry: 05/16/2023 4:27 PM Entered By: Zenia Rice APRN Reason for Evaluation: Surgeon Request Other Reason: CHF Screening Visit Type: Telephone Call Additional/Outside Records Requested? Did not request medical information from outside organization. Findings, Assessment and Plan: 73 y.o. female BMI 50 presenting for pre- anesthesia telephone consultation prior to robotic assisted laparoscopic hysterectomy, unilateral salpingectomy, bilateral oophorectomy with Dr. Ohara 07/24/23. MEDICAL HISTORY: #HFpEF: echo 04/2022 EF 65-70%, (on entresto, torsemide) #aortic stenosis: mild on echo from 04/2022 #HTN: bp have been well controlled per chart review #COPD: hasn't used rescue inhaler in many months #Type 2 DM (A1C 6.2 from 05/08/23) #GERD #MARTHA: does not wear CPAP #BMI 50: on ozempic (reports intermittent nausea and vomiting since starting this mediation) DASI 18.95/ 5.07METs. Denies chest pain or palpitations. No SOB with daily activities. LE edema is well controlled per patient on torsemide. Denies orthopnea. No dizziness or syncope. She is followedby clinical staff rn Dr. Hoang at [facility], last seen in April 2023 TTE 04/24/22 [facility] (under media) EF 65-70% with no WMAs. Mildly dilated RV with preserved function. LA mildly dilated. Mild AD8:2 Social History: Tobacco Use: Smoked for 6 months in her 20s Alcohol: Denies SURGICAL HISTORY: salpingectomy, 3 knee surgeries, 2 hip surgeries ANESTHETIC HISTORY: Denies any previous complications related to anesthesia Overall: Stacy Knight is a 73 y.o. with a history of HFpEF, mild , HTN, COPD, type 2 DM, GERD, MARTHA (does not wear CPAP), BMI 50 scheduled for robotic assisted laparoscopic hysterectomy, unilateralsalpingectomy, bilateral oophorectomy with Dr. Ohara 07/24/23. Stacy reports there have been no changes in cardiopulmonary symptoms since last echocardiogram performed 04/2022. COPD is stable on current inhalers. Advised to bring these in with her on day of surgery. Stacy takes ozempic weekly and has already been provided with instructions to hold this medication one week prior to surgery and adhere to a clear liquid diet the day prior to surgery. She reports nausea and vomiting since starting this medication. She was advised to contact PCP to discuss these symptoms and discuss other medication options. We discussed the risks, benefits and alternatives to anesthesia. We discussed therisk of post-operative ventilation. AD8:2. Patient is at increased risk of post-operative delirium.We discussed mitigation strategies. Patient reports she does not currently have anyone to stay withher after surgery and she discussed the possibility of post- op discharge to a alf with the. Will place referral to [facility]SV program. All questions answered to the patient's satisfaction. Zenia Rice, LETI 05/15/23 documented in this encounter Plan of Treatment Upcoming Encounters Date Type Department Care Team (Late st Contact Info) Description 03/04/2024 12:00 PM EST Office Visit [place] [address] Jordyn Francisco MD [facility] DR OBSTETRICS [place] [address] documented as of this encounter Visit Diagnoses Not on filedocumented in this encounter Care Teams Accounting Intern Relationship Specialty Start Date End Date Dandy Driscoll APRN [address] [place] [address] [place] [phone] PCP - General Family Medicine 01/20/16 documented as of this encounter
--- OUTSIDE RECORDS SUMMARY | 2024-02-27 19:34 | XMS_ITS | Encounter Summary ---
[place] [address] Care Team Providers Care Electric Needle Specialist Name Role Phone Dandy Driscoll APRN Primary Care Provider [phone] Encounter Details Date Type Department Care Team (Late st Contact Info) Description 05/08/2023 2:30 PM EST Clinical [place] [phone] Social History Tobacco Use Types Packs/Day Years Used Date Smoking Tobacco: Former Cigarettes Q uit: 10/1978 Smokeless Tobacco: Never Alcohol Use Standard Drinks/Week Comments No 0 (1 standard drink = 0.6 oz pur e alcohol) [facility] Inpatient Questions Answer Date Recorded Does Anyone [...] as of this encounter Progress Notes * Gerardo Ken, RN - 05/08/2023 2:30 PM EST PAT questionnaire reviewed with patient while in Pre Admission testing. Pre- operative instruction booklet reviewed. Patient verbalizes a good understanding of all information reviewed. Patient has had general anesthesia previously at [facility] without a problem. Pre Surgery Covid screening patient response: No Anesthesia to call patient next week for consult. PAT Penicillin Allergy Risk Assessment 05/08/2023: Low risk penicillin allergy. OK to receive full dose of cefazolin, cefuroxime, or any 3rd or 4th+ generation cephalosporin. [facility] MEDICAL C[facility] DIRECTOR to place Allergy referral for formal penicillin allergy evaluation. Patient open to a phone consult from allergy clinic. Last dose of Ozempic will be July 14 Full liquid diet sheet given to patient. PLAN: Testing: Blood work and T&S Procedure date: Tentative date of 07/23 with Lev. documented in this encounter Plan of Treatment Upcoming Encounters Date Type Department Care Team (Late st Contact Info) Description 03/04/2024 12:00 PM EST Office Visit [place] [address] Jordyn Francisco MD [facility] OBSTETRICS [place] [address] documented as of this encounter Visit Diagnoses Not on filedocumented in this encounter Care Teams Electric Needle Specialist Relationship Specialty Start Date End Date Dandy Driscoll APRN [address] [place] [address] SHELLI Reich [phone] PCP - General Family Medicine 01/20/16 documented as of this encounter
--- OUTSIDE RECORDS SUMMARY | 2024-02-27 19:34 | XMS_ITS | Encounter Summary ---
[place] [address] Care Team Providers Care Software Database Architect Name Role Phone Dandy Driscoll APRN Primary Care Provider [phone] Encounter Details Date Type Department Care Team (Latest Contact Info) Description 02/23/2022 Travel Social History Tobacco Use Types Packs/Day [...] EST Office Visit [place] [address] Jordyn Francisco MD [facility] OBSTETRICS [place] [address] documented as of this encounter Visit Diagnoses Not on filedocumented in this encounter Care Teams Software Database Architect Relationship Specialty Start Date End Date Dandy Driscoll APRN [address] [place] [address] [place] [phone] PCP - General Family Medicine 01/20/16 documented as of this encounter
--- OUTSIDE RECORDS SUMMARY | 2024-02-27 19:35 | XMS_ITS | Encounter Summary ---
Author Organization [place] [address] Care Team Providers Care Licensed Professional Counselor Name Role Phone Dandy Driscoll APRN Primary Care Provider [phone] Reason for Referral * Diagnostic Test (Routine) - Closed Specialty Diagnoses / Procedures Referred By Contac t Referred To Contact Radiology Diagnoses Status post total replacement of left hip Primary osteoarthritis of right hip Chronic bilateral low back pain, unspecified whether sciatica present Procedures MRI Lumbar Spine wo Contrast (Generic) Noam De La Fuente [place] [facility] [place] [address] [facility] [place] [address] Referral ID Status Reason Start Date Expiration Date V isits Requested Visits Authorized [id number] Closed Specialty Service Requested 02/11/2019 02/11/2020 1 1 Reason for Visit * Reason Comments Back Pain * Consultation (Routine) - Closed Specialty Diagnoses / Procedures Referred By Contac t Referred To Contact [facility] Diagnoses Chronic midline low back pain without sciatica Alejandrina Elliott [place] [facility] [place] [address] [facility] [place] [address] Referral ID Status Reason Start Date Expiration Date V isits Requested Visits Authorized [id number] Closed Consult, Test & Treat 01/30/2019 01/30/2020 1 1 Encounter Details Date Type Department Care Team (Latest Contact Info) Description 02/11/2019 1:00 PM EST Office Visit [facility] at [facility] [place] [phone] Noam De La Fuente PA [facility] [place] [id number] Status post total replacement of left hip; Primary osteoarthritis of right hip; Chronic bilateral low back pain, unspecified whether sciatica present Social History Tobacco Use Types Packs/Day Years [...] Sign Reading Time Taken Comments Blood Pressure - - Pulse - - Temperature - - Respiratory Rate - - Oxygen Saturation - - Inhaled Oxygen Concentration - - Weight 115.2 kg (254 lb) 02/11/2019 2:11 PM EST Height 157.5 cm (5' 2) 02/11/2019 2:11 PM EST Body Mass Index 46.46 02/11/2019 2:11 PM EST documented in this encounter Progress Notes * Noam De La Fuente PA - 02/11/2019 1:00 PM EST Stacy Knight is a [age]-year-old female I am seen today for chief complaint of low back pain which she feels over the midline low back radiating over her bilateral buttocks and generally not going further into her lower extremities. She has been bothered by her back for several years but has noticedthat being more bothersome ever since the past year after she had her left hip replacement. She tells me she was happy with the outcomes of her left hip replacement but notices that she cannot reallystand or walk for more than a few minutes without needing to sit down or bend forward to relieve her symptoms. She tells me her pain so far has been refractory to over 6 weeks of physical therapy, use of gabapentin, naproxen 550 mg twice daily, as muscle relaxant cyclobenzaprine. On her visit with me today, she used a motorized scooter to get around. Objective: On exam today this is a significantly obese 38-year-old female, BMI 44. She stands with straight spine level shoulders and pelvis without obvious spinal deformity. She is able to flex forward about 90 degrees without any pain whatsoever but has increasing back pain with extension to about 10 degrees. She has restricted hip range of motion on the right side especially on internal rotation althoughinterestingly enough this is painless. Her straight leg raise is negative on both sides. Her motor exam shows full strength. Her sensory exam is intact light touch. Her peripheral pulses are palpable. Imaging: Her most recent imaging today shows her bilateral hips. There is a well-placed left hip prosthesis without any complication whatsoever and there is evidence of moderate joint space narrowing especially with medial joint space of the right hip consistent with osteoarthritis. The visualized L4 and L5 lumbar segments shows extensive disc height loss and vertebral spurring. No other imaging of the lumbar spine available to review. Assessment/plan: Stacy Knight is 88-year-old female I am seen today for chief complaint of low back pain. This in the context of underlying history of primary osteoarthritis of the right hip and aside from that an uncomplicated left hip replacement. I discussed with Ms. Knight the difficulties of distinguishing issues with primary hip osteoarthritis causing her back pain versus intrinsic lumbar spine issues as well. I did advise her that given her age being over 60-year-old and her increasing pain with extension maneuvers, and limited walking and standing tolerance that I do have my concerns about neurogenic claudication with lumbar spinal stenosis. We will assess this further with a lumbar spine MRI without contrast. Certainly if there is indeed an area that can be targeted with an isolated injection or potential surgical lesion, we will treat accordingly. If the lumbar spine MRI does not really show a clear-cut pain generator than I advised her it might be more a matter of targeting the arthritic right hip joint with a diagnostic and therapeutic intra-articular injection, to see how that might be contributing to her back pain documented in this encounter Plan of Treatment Upcoming Encounters Date Type Department Care Team (Late st Contact Info) Description 03/04/2024 12:00 PM EST Office Visit [place] [address] Jordyn Francisco MD [facility] DR OBSTETRICS [place] [address] documented as of this encounter Results * MRI Lumbar Spine wo Contrast (Generic) (04/28/2019 3:06 PM EST) Anatomical Region Laterality Modality L-spine Magnetic Resonan ce Impressions 04/29/2019 3:50 PM EST Lumbar spondylosis described in detail above. Moderate central canal stenosis at L3-4. Comment: The following findings are so common in people without low back pain that while we report their presence, they must be interpreted with caution and in context of the clinical situation (Reference- Jarvik Et Al, Spine 2001). Findings: (Prevalence in patients without low back pain), disc degeneration (decreased T2 signal, height loss, bulge) (91%), disc T2-signal loss (83%), disc height loss (56%), disc bulge (64%), disc protrusion (32%), annular fissure (38%). Thank you for letting us participate in the care of this patient. For questions regarding this report, please contact the number below. ? Electronically signed by: Gabriele Castillo, [facility] ([phone]), at 04/29/2019 3:50 PM Narrative 04/29/2019 3:50 PM EST EXAMINATION: MRI LUMBAR SPINE WO CONTRAST (GENERIC) CLINICAL HISTORY: Bilateral low back pain, with pseudoclaudication. Please assess for spinal stenosis. Please do large bore MRI. TECHNIQUE: MRI of the lumbar spine performed without intravenous contrast administration. COMPARISON: None FINDINGS: Small ribs are present at T12. Rightward convex curvature of the lumbar spine with apex at L2-3 and compensatory leftward convex curvature of the lumbosacral junction. Anterolisthesis of L5 respect to S1 on a degenerative basis. Trace retrolisthesis of L2 with respect to L3, L3 with respect L4 on a degenerative basis. Heterogeneous endplate marrow fatty change and sclerosis related to disc degeneration greater on concave portion of the curvature. Endplate marrow edema at L3-4 and L4-5 related to disc degeneration. The conus is normal in signal and terminates at L1. Left foraminal stenosis. L3-4: Disc bulge, endplate proliferation, and facet arthropathy with a superimposed central disc extrusion with mild cranial migration contributing to moderate central canal stenosis and moderate left and mild right neural foraminal stenosis. L4-5: Disc bulge and pronounced facet arthropathy contributing to mild central canal stenosis and moderate right subarticular recess stenosis. Moderate right and mild left neural foraminal stenosis. L5-S1: Malalignment and facet arthropathy contributes to moderate to severe bilateral foraminal stenosis. Procedure Note Gabriele Castillo MD - 04/29/2019 EXAMINATION: MRI LUMBAR SPINE WO CONTRAST (GENERIC) CLINICAL HISTORY: Bilateral low back pain, with pseudoclaudication.Please assess for spinal stenosis. Please do large bore MRI. TECHNIQUE: MRI of the lumbar spine performed without intravenous contrastadministration. COMPARISON: None FINDINGS: Small ribs are present at T12. Rightward convex curvature of the lumbarspine with apex at L2-3 and compensatory leftward convex curvature of thelumbosacral junction. Anterolisthesis of L5 respect to S1 on a degenerative basis.Trace retrolisthesis of L2 with respect to L3, L3 with respect L4 on adegenerative basis. Heterogeneous endplate marrow fatty change and sclerosis related todisc degeneration greater on concave portion of the curvature. Endplate marrowedema at L3-4 and L4-5 related to disc degeneration. The conus is normal in signal and terminates at L1. Left foraminalstenosis. L3-4: Disc bulge, endplate proliferation, and facet arthropathy with a superimposed central disc extrusion with mild cranial migrationcontributing to moderate central canal stenosis and moderate left and mild right neural foraminal stenosis. L4-5: Disc bulge and pronounced facet arthropathy contributing to mildcentral canal stenosis and moderate right subarticular recess stenosis. Moderateright and mild left neural foraminal stenosis. L5-S1: Malalignment and facet arthropathy contributes to moderate tosevere bilateral foraminal stenosis. IMPRESSION Lumbar spondylosis described in detail above. Moderate central canalstenosis at L3-4. Comment: The following findings are so common in people without low backpain that while we report their presence, they must be interpreted with cautionand in context of the clinical situation (Reference- Jarvik Et Al, [id number]). Findings: (Prevalence in patients without low back pain), discdegeneration (decreased T2 signal, height loss, bulge) (91%), disc T2-signal loss(83%), disc height loss (56%), disc bulge (64%), disc protrusion (32%), annularfissure (38%). Thank you for letting us participate in the care of this patient. Forquestions regarding this report, please contact the number below. Electronically signed by: Gabriele Castillo [facility]([phone]), at 04/29/2019 3:50 PM Wojciech Turner MD IMG MRI ORDERABLES documented in this encounter Visit Diagnoses Diagnosis Status post total replacement of left hip Primary osteoarthritis of right hip Primary localized osteoarthrosis, pelvic region and thigh Chronic bilateral low back pain, unspecified whether sciatica present Status post total replacement of left hip Primary osteoarthritis of right hip Primary localized osteoarthrosis, pelvic region and thigh Chronic bilateral low back pain, unspecified whether sciatica present documented in this encounter Care Teams Licensed Professional Counselor Relationship Specialty Start Date End Date Dandy Driscoll APRN [address] [place] [address] [place] [id number] PCP - General Family Medicine 01/20/16 documented as of this encounter
--- OUTSIDE RECORDS SUMMARY | 2024-02-27 19:35 | XMS_ITS | Encounter Summary ---
[place] [address] Care Team Providers Care Medical Or Surgical Instrument Maker Name Role Phone Dandy Driscoll APRN Primary Care Provider [phone] Encounter Details Date Type Department Care Team (Late st Contact Info) Description 08/06/2020 [place] [phone] Patrick Dumont MD Social History Tobacco Use Types Packs/Day Years [...] encounter Miscellaneous Notes * Telephone Encounter - Gilberto Seo - 08/06/2020 12:32 PM EDT I called the patient to inquire about the desire to have a hip injection. There is an order for R ENA in her chart. Patient was unaware of the 3 month wait period after the cortisone injection. She would like to proceed with surgery and not get the injection at this time. She has a number of thingsshe needs to take care of at home before she will be able to commit to surgery. She will call when she is ready. * Telephone Encounter - Brittany Chen - 08/06/2020 12:18 PM EDT Best phone # to reach patient for [phone] Is it acceptable to leave a voicemail message with your appointment if we are unable to reach you directly? yes Patient requests appointment for injection of the Right hip. What type of injection? Cortisone NOTE: If this is a request for a fluoro guided injection, please ask the safety questions (use .fluoroschedquestion dot phrase) I will send this request to the Clinical Support team for review. Some injections require prior authorization, special orders, or an appointment somewhere other thanour clinic, so knowing this in advance will help us to better meet your needs. If the injection requires prior authorization, it may take 14 or more business days before we can schedule your appointment. As soon as this service approved by the clinical support team, we will call you to schedule the appointment. documented in this encounter Plan of Treatment Upcoming Encounters Date Type Department Care Team (Late st Contact Info) Description 03/04/2024 12:00 PM EST Office Visit [place] [address] Jordyn Francisco MD [facility] [place] [address] documented as of this encounter Visit Diagnoses Not on filedocumented in this encounter Care Teams Medical Or Surgical Instrument Maker Relationship Specialty Start Date End Date Dandy Driscoll APRN [address] [place] [address] [place] [phone] PCP - General Family Medicine 01/20/16 documented as of this encounter
--- OUTSIDE RECORDS SUMMARY | 2024-02-27 19:35 | XMS_ITS | Encounter Summary ---
Author Organization [facility] Address [facility] [place] [address] Care Team Providers Care Coil Tester Name Role Phone Dandy Driscoll APRN Primary Care Provider [phone] Reason for Visit * Reason Comments Aftercare Of Tjr L THR 02/13/2018 Encounter Details Date Type Department Care Team (Late st Contact Info) Description 03/29/2018 1:20 PM EST Office Visit Orthopaedics at [facility] [place] [address] Alejandrina Elliott, DEBRA [facility] [place] [address] Status post total replacement of left hip Social History Tobacco Use Types Packs/Day Years [...] Sign Reading Time Taken Comments Blood Pressure 133/62 03/29/2018 1:04 PM EST Pulse 93 03/29/2018 1:04 PM EST Temperature - - Respiratory Rate - - Oxygen Saturation - - Inhaled Oxygen Concentration - - Weight 114.3 kg (252 lb) 03/29/2018 1:04 PM EST pt reported Height 157.5 cm (5' 2) 03/29/2018 1:04 PM EST p t reported Body Mass Index 46.09 03/29/2018 1:04 PM EST documented in this encounter Progress Notes * Alejandrina Elliott PA - 03/29/2018 1:20 PM EST Arthroplasty/Orthopaedic History: 1. Left ENA - 02/13/18 - Dr. Dumont HPI: Stacy Knight is a very pleasant 67 y.o. year-old female and is now 6 weeks s/p left ENA. She presents today for another wound check. Her PT was concerned about some spitting sutures and so she presents for another check. She has been havin gdressings done at her PT appointments. She has most recently been using iodosorb and DSG covered by a tegaderm. She is trying to keep the area under her panus dry. She has not had recent drainage from the incision. Her hip is doing well and she is making good progress through her recovery. ROS: Denies: fever, chills, night sweats, nausea, or vomiting BP 133/62 Pulse 93 Ht 157.5 cm (5' 2) Comment: pt reported Wt 114.3 kg (252 lb) Comment: pt reported BMI 46.09 kg/m?? Physical Exam: Well-appearing female in no acute distress. Alert and Oriented x 3 and answers all questions appropriately. The incision is well healed with one spitting suture, no erythema and no drainage; the incison is completely closed now with no dehisence. . X-RAYS: None today. Questionnaire Responses: [facility] Surgical Postop Visit 03/29/2018 PROMIS-10 General Health - PROMIS-10 Quality of Life - PROMIS-10 Physical Health - PROMIS-10 Mental Health - PROMIS-10 Social Activity - PROMIS-10 Everyday Activities - PROMIS-10 Pain - PROMIS-10 Fatigue - PROMIS-10 Social Roles - PROMIS-10 Anxious or Depressed - PROMIS PHYSICAL HEALTH SCORE - PROMIS MENTAL HEALTH SCORE - HOOS JR Scores - Gone to ER since knee surgery - Admitted to hospital since recent ortho surgery - Additional surgery on same body part - TKA Grade 10 Pain in other KNEE None ENA Grade - Back pain at this moment Very mild Satisfaction with Treatment - Choose Same Treatment Again - Orthope[facility]ics [facility] Response 03/07/2018 HOOS JR Scores 80.56 Spine [facility] Response 03/07/2018 HOOS JR Scores 80.56 ASSESSMENT/PLAN: Ms. Knight is a 67 y.o. year old female status post left total hip replacement, here for another wound check. She is great. Her incision looks fantastic today and she has made great progress. I re-dressed her wound with iodosorb and DSG covered by a tegaderm. I gave her supplies to do this dressing with her PT. She only needs to use the iodosorb for up to one more week. She likelyonly needs to dress the wound for about 2 more weeks. She will call with any concerns and follow upas needed based on the appearance of the incision and the progress of her hip recovery. We discussed the appropriate precautions surrounding dental prophylaxis; according to the AAOS Appropriate Use Criteria we do not recommend antibiotic use prior to dental procedures for Stacy. We also discussed maintaining good foot care and giving prompt attention to any source of infectionthroughout the body including foot ulcers and urinary tract infections. documented in this encounter Plan of Treatment Upcoming Encounters Date Type Department Care Team (Late st Contact Info) Description 03/04/2024 12:00 PM EST Office Visit [place] [address] Jordyn Francisco MD [facility] OBSTETRICS [place] [address] documented as of this encounter Visit Diagnoses Diagnosis Status post total replacement of left hip documented in this encounter Care Teams Coil Tester Relationship Specialty Start Date End Date Dandy Dirscoll APRN [address] [place] [address] [place] Reich [phone] PCP - General Family Medicine 01/20/16 documented as of this encounter
--- OUTSIDE RECORDS SUMMARY | 2024-02-27 19:35 | XMS_ITS | Encounter Summary ---
[place] [address] Care Team Providers Care Employment Service Specialist Name Role Phone Dandy Driscoll APRN Primary Care Provider [phone] Reason for Referral * Diagnostic Test (Routine) - Closed Specialty Diagnoses / Procedures Referred By Contac t Referred To Contact Radiology Diagnoses Status post total replacement of left hip Primary osteoarthritis of right hip Chronic bilateral low back pain, unspecified whether sciatica present Procedures MRI Lumbar Spine wo Contrast (Generic) Noam De La Fuente PA [facility] [place] [address] [place] [address] Referral ID Status Reason Start Date Expiration Date V isits Requested Visits Authorized [id number] Closed Specialty Service Requested 02/11/2019 02/11/2020 1 1 Reason for Visit * Diagnostic Test (Routine) - Closed Specialty Diagnoses / Procedures Referred By Contac t Referred To Contact Radiology Diagnoses Status post total replacement of left hip Primary osteoarthritis of right hip Chronic bilateral low back pain, unspecified whether sciatica present Procedures MRI Lumbar Spine wo Contrast (Generic) Noam De La Fuente PA [facility] [place] [address] [place] [address] Referral ID Status Reason Start Date Expiration Date V isits Requested Visits Authorized [id number] Closed Specialty Service Requested 02/11/2019 02/11/2020 1 1 Encounter Details Date Type Department Care Team (Latest Contact Info) Description 04/28/2019 1:12 PM EST - 04/28/2019 11:59 PM EST Hospital Encounter MRI at [facility], [place], operated [place] [address] Wojciech Turner MD [facility] [place] [address] Status post total replacement of left hip; Primary osteoarthritis of right hip; Chronic bilateral low back pain, unspecified whether sciatica present Discharge Disposition: Home Social History Tobacco Use [...] Sig Dispensed Refills Start Date End Date augmented betamethasone dipropionate (DIPROLENE-AF) 0.05 % Ointment [...] the lungs every 4 hours as needed. naproxen sodium (ANAPROX) 550 mg Tablet TAKE 1 TABLET BY MOUTH TWICE DAILY NEEDED 0 12/30/2018 11/05/2020 fluticasone propion-salmeterol (ADVAIR) 250-50 mcg/dose Disk with Device INHALE 1 DOSE BY MOUTH TWICE DAILY 12 12/18/2018 11/05/2020 omeprazole (PRILOSEC) 20 mg Capsule, Delayed Release(E.C.) Take 1 capsule by mouth daily. Take daily while taking naproxen 42 capsule 02/16/2018 11/05/2020 polyethylene glycol (MIRALAX) 17 gram Powder in Packet Take 17 g by mouth 2 times daily. 14 each 1 02/16/2018 11/05/2020 gabapentin (NEURONTIN) 300 mg Capsule Take 1 capsule by mouth nightly. Take nightly before bed for sleep for 4 weeks after surgery. 30 capsule 02/16/2018 11/05/2020 loperamide (IMODIUM A-D) 2 mg Tablet Take 4 mg by mouth 4 times daily as needed for Diarrhea. Maximum 16 mg in 24 hours 12/04/2023 LACTOSE-REDUCED FOOD (NUTRITIONAL SUPPLEMENT ORAL)Indications:Mind over matter Brain Formula Take by mouth. Indications: Mind over matter Brain Formula 01/26/2021 DIETARY SUPPLEMENT ORALIndications:Carb Blcoker; White Kidney Marquez Take by mouth. Indications: Carb Blcoker; White Kidney Marquez 11/05/2020 DIETARY SUPPLEMENT ORALIndications:Phyto plankton blend Take by mouth. Indications: Phytoplankton blend 11/05/2020 naproxen (NAPROSYN) 250 mg tablet Take 250 mg by mouth 2 times daily (with meals). 11/05/2020 verapamil (CALAN-SR) 240 mg CR tablet Take 240 mg by mouth nightly. 11/05/2020 fluticasone-salmetero l (ADVAIR) 500-50 mcg/dose diskus inhaler Inhale 1 puff into the lungs 2 times daily. 05/08/2023 cyclobenzaprine (FLEXERIL) 10 mg tablet Take 5 mg by mouth 3 times daily as needed. 01/26/2021 documented as of this encounter Plan of Treatment Upcoming Encounters Date Type Department Care Team (Late st Contact Info) Description 03/04/2024 12:00 PM EST Office Visit [place] [address] Jordyn Francisco MD [facility] [address] OBSTET[place] [address] documented as of this encounter Procedures Procedure Name Priority Date/Time Associated Diagnosis Comments MRI LUMBAR SPINE WITHOUT CONTRAST Routine 04/28/2019 3:06 PM EST Status post total replacement of left hip Primary osteoarthritis of right hip Chronic bilateral low back pain, unspecified whether sciatica present documented in this encounter Results * MRI Lumbar Spine [...] in context of the clinical situation (Reference- Joannavik Et Al, Spine 2001). Findings: (Prevalence in patients without low back pain), disc degeneration (decreased T2 signal, height loss, bulge) (91%), disc T2-signal loss (83%), disc height loss (56%), disc bulge (64%), disc protrusion (32%), annular fissure (38%). Thank you for letting us participate in the care of this patient. For questions regarding this report, please contact the number below. ? Narrative 04/29/2019 3:50 PM EST EXAMINATION: MRI [...] in context of the clinical situation (Reference- Joannavik Et Al, [id number]). Findings: (Prevalence in patients without low back pain), discdegeneration (decreased T2 signal, height loss, bulge) (91%), disc T2-signal loss(83%), disc height loss (56%), disc bulge (64%), disc protrusion (32%), annularfissure (38%). Thank you for letting us participate in the care of this patient. Forquestions regarding this report, please contact the number below. Wojciech Turner MD IMG MRI ORDERABLES documented in this encounter Visit Diagnoses Diagnosis Status post total replacement of left hip Primary osteoarthritis of right hip Primary localized osteoarthrosis, pelvic region and thigh Chronic bilateral low back pain, unspecified whether sciatica present documented in this encounter Care Teams Employment Service Specialist Relationship Specialty Start Date End Date Dandy Driscoll APRN [address] [place] [address] [place] [address] PCP - General Family Medicine 01/20/16 documented as of this encounter
--- OUTSIDE RECORDS SUMMARY | 2024-02-27 19:35 | XMS_ITS | Encounter Summary ---
[place] [address] Care Team Providers Care Passenger Screener Name Role Phone Dandy Driscoll APRN Primary Care Provider [phone] Reason for Visit * Reason Onset Date Comments Questions 05/30/2019 About DME for as sist with socks Encounter Details Date Type Department Care Team (Late st Contact Info) Description 05/30/2019 [place] [phone] Jazmyne Méndez, RN Questions (About DME for assist with socks) Social History Tobacco Use Types Packs/Day Years [...] encounter Miscellaneous Notes * Telephone Encounter - Jazmyne Méndez, RN - 05/30/2019 8:14 AM EST Primary osteoarthritis of R hip, 05/29/2019, Dr Dumont Mrs Knight called and stated she did have an apparatus to assist her with putting her socks on. Let her know that is not equipment we stock in the ///ambulatory Orthopedic department. She asked if we might call the floor or PT and ask if they have one. Advised it may not be today, 05/30, I will try to locate one of these for her. documented in this encounter Plan of Treatment Upcoming Encounters Date Type Department Care Team (Late st Contact Info) Description 03/04/2024 12:00 PM EST Office Visit [place] [address] Jordyn Francisco MD [facility] OBSTETR[place] [address] documented as of this encounter Visit Diagnoses Not on filedocumented in this encounter Care Teams Passenger Screener Relationship Specialty Start Date End Date Dandy Driscoll APRN [address] [place] [address] SHELLI Reich [phone] PCP - General Family Medicine 01/20/16 documented as of this encounter
--- OUTSIDE RECORDS SUMMARY | 2024-02-27 19:35 | XMS_ITS | Encounter Summary ---
Author Organization [facility] Address [facility] [place] [address] Care Team Providers Care Manager Strategic Sourcing Name Role Phone Dandy Driscoll APRN Primary Care Provider [phone] Encounter Details Date Type Department Care Team (Latest Contact Info) Description 07/15/2020 9:19 AM EDT - 07/15/2020 11:59 PM EDT Hospital Encounter XRay at [address] [place] [address] Patrick Dumont MD Right knee pain, unspecified chronicity; Bilateral hip pain Discharge Disposition: Home Social History Tobacco Use [...] mouth 3 times daily (with meals). 01/26/2021 augmented betamethasone dipropionate (DIPROLENE-AF) 0.05 % Ointment [...] give 50 mg. 15 tablet 01/26/2021 02/23/2022 lisinopriL (Prinivil;Zestril) 10 mg Tablet Take 10 mg by mouth daily. 05/08/2023 traMADoL (Ultram) 50 mg Tablet Take 1 tablet by mouth every 6 hours as needed for Pain. 30 tablet 07/15/2020 10/20/2020 ibuprofen (Advil;Motrin) 200 mg Tablet Take 200 mg by mouth every 6 hours as needed for Pain. 11/05/2020 naproxen sodium (ANAPROX) 550 mg Tablet TAKE [...] PM EST Office [place] [address] Jordyn Francisco MD [facility] DR OBSTETRICS [place] [address] documented as of this encounter Procedures Procedure Name Priority Date/Time Associated Diagnosis Comments XR KNEE AP & LAT RIGHT Routine 07/15/2020 9:47 AM EDT Right knee pain, unspecified chronicity XR PELVIS AND HIP 2 VIEWS BILATERAL Routine 07/15/2020 9:47 AM EDT Bilateral hip pain documented in this encounter Results * XR Pelvis and Hip 2 Views Bilateral (07/15/2020 9:47 AM EDT) Anatomical Region Laterality Modality Pelvis, Hip Bilateral Digital Radiogra phy Impressions 07/15/2020 11:09 AM EDT Right: Interval progression of severe osteoarthritis Right hip since prior exam. Left: Status post left total hip arthroplasty. Alignment is stable and anatomic. No radiographic evidence of complication. Thank you for letting us participate in the care of this patient. ??If you are a health care provider and have any questions regarding this report, please contact the number below. ??For patients who have questions please contact the health care management coordinator that requested your imaging first. ? Electronically signed by: Jeri Snyder MD, [facility] ([phone]), at 07/15/2020 11:09 AM Narrative 07/15/2020 11:09 AM EDT EXAMINATION: XR PELVIS AND HIP 2 VIEWS BILATERAL CLINICAL HISTORY: bilat hip pain. TECHNIQUE: AP standing pelvis; AP and lateral right and left hip COMPARISON: Multiple priors, most recent 05/29/2019 FINDINGS: No fracture or dislocation. Right hip: The examination demonstrates interval rapid progression of severe osteoarthritis of the right hip characterized by complete joint space loss, marginal osteophytes and subchondral sclerosis and cyst formation. Left hip: Left total hip arthroplasty with cerclage wire. Alignment is stable and anatomic. No radiographic evidence of complication. Degenerative changes lower lumbar spine. Procedure Note Jeri Snyder MD - 07/15/2020 EXAMINATION: XR PELVIS AND HIP 2 VIEWS BILATERAL CLINICAL HISTORY: bilat hip pain. TECHNIQUE: AP standing pelvis; AP and lateral right and left hip COMPARISON: Multiple priors, most recent 05/29/2019 FINDINGS: No fracture or dislocation. Right hip: The examination demonstrates interval rapid progression ofsevere osteoarthritis of the right hip characterized by complete joint spaceloss, marginal osteophytes and subchondral sclerosis and cyst formation. Left hip: Left total hip arthroplasty with cerclage wire. Alignment isstable and anatomic. No radiographic evidence of complication. Degenerative changes lower lumbar spine. IMPRESSION Right: Interval progression of severe osteoarthritis Right hip since priorexam. Left: Status post left total hip arthroplasty. Alignment is stable andanatomic. No radiographic evidence of complication. Thank you for letting us participate in the care of this patient. If youare a health care provider and have any questions regarding this report,please contact the number below. For patients who have questions please contactthe health care management coordinator that requested your imaging first. Electronically signed by: Jeri Snyder MD, [facility] ([phone]), at 07/15/2020 11:09 AM Patrick Dumont MD IMG DX ORDERABLES * XR Knee 1-2 Views Right (Generic) (07/15/2020 9:47 AM EDT) Anatomical Region Laterality Modality Knee Right Digital Radiogra phy Impressions 07/15/2020 11:57 AM EDT IMPRESSION: Status post right total knee arthroplasty. Alignment is stable and anatomic. Focal areas of bone resorption proximal tibia without significant change. No joint effusion. Thank you for letting us participate in the care of this patient. ??If you are a health care provider and have any questions regarding this report, please contact the number below. ??For patients who have questions please contact the health care management coordinator that requested your imaging first. ? Electronically signed by: Jeri Snyder MD, [facility] ([phone]), at 07/15/2020 11:57 AM Narrative 07/15/2020 11:57 AM EDT EXAMINATION: XR KNEE 1-2 VIEWS RIGHT (GENERIC) CLINICAL HISTORY: R KNEE PAIN. TECHNIQUE: 2 views RIGHT knee COMPARISON: Multiple priors, most recent 04/30/2019. FINDINGS: Postoperative changes following right total knee arthroplasty, with additional screw traversing the proximal right tibia. The prostheses are well positioned. No new periprosthetic lucency. No periprosthetic fracture. The alignment is stable and anatomic. ??No right knee joint effusion. Focal areas of lucency with surrounding sclerosis in the proximal tibias bilaterally consistent with bone resorption, without significant interval change in the appearance. Incomplete evaluation of the left total knee arthroplasty; grossly unchanged AP appearance since priors. Procedure Note Jeri Snyder MD - 07/15/2020 EXAMINATION: XR KNEE 1-2 VIEWS RIGHT (GENERIC) CLINICAL HISTORY: R KNEE PAIN. TECHNIQUE: 2 views RIGHT knee COMPARISON: Multiple priors, most recent 04/30/2019. FINDINGS: Postoperative changes following right total knee arthroplasty, withadditional screw traversing the proximal right tibia. The prostheses are wellpositioned. No new periprosthetic lucency. No periprosthetic fracture. The alignmentis stable and anatomic. No right knee joint effusion. Focal areas of lucency with surrounding sclerosis in the proximal tibias bilaterally consistent with bone resorption, without significant intervalchange in the appearance. Incomplete evaluation of the left total knee arthroplasty; grosslyunchanged AP appearance since priors. IMPRESSION IMPRESSION: Status post right total knee arthroplasty. Alignment is stable andanatomic. Focal areas of bone resorption proximal tibia without significant change.No joint effusion. Thank you for letting us participate in the care of this patient. If youare a health care provider and have any questions regarding this report,please contact the number below. For patients who have questions please contactthe health care management coordinator that requested your imaging first. Electronically signed by: Jeri Snyder MD, [facility] ([phone]), at 07/15/2020 11:57 AM Patrick Dumont MD IMG DX ORDERABLES documented in this encounter Visit Diagnoses Diagnosis Right knee pain, unspecified chronicity Bilateral hip pain Pain in joint, pelvic region and thigh documented in this encounter Care Teams Manager Strategic Sourcing Relationship Specialty Start Date End Date Dandy Driscoll APRN [address] [place] [address] [place] [id number] PCP - General Family Medicine 01/20/16 documented as of this encounter
--- OUTSIDE RECORDS SUMMARY | 2024-02-27 19:35 | XMS_ITS | Encounter Summary ---
Author Organization [facility] [place] [address] Care Team Providers Care Diesel Service Journeyman Name Role Phone Dandy Driscoll APRN Primary Care Provider [phone] Reason for Visit * Reason Comments Medication Refill Encounter Details Date Type Department Care Team (Late Contact Info) Description 11/26/2020 [place] [address] Patrick Dumont MD Primary osteoarthritis of right hip Social History Tobacco Use Types Packs/Day [...] Encounters Date Type Department Care Team (Late Contact Info) Description 03/04/2024 12:00 PM EST Office Visit [place] [address] Jordyn Francisco MD [facility] OBSTETRICS [place] [address] documented as of this encounter Visit Diagnoses Diagnosis Primary osteoarthritis of right hip Primary localized osteoarthrosis, pelvic region and thigh documented in this encounter Care Teams Diesel Service Journeyman Relationship Specialty Start Date End Date Dandy Driscoll APRN [address] [place] [address] [place] [address] PCP - General Family Medicine 01/20/16 documented as of this encounter
--- OUTSIDE RECORDS SUMMARY | 2024-02-27 19:35 | XMS_ITS | Encounter Summary ---
[place] [address] Care Team Providers Care Chair Mender Name Role Phone Dandy Driscoll APRN Primary Care Provider [phone] Reason for Visit * Reason Comments Follow-up R TKA DOS 06.27.01, P ain s/p twisted knee in bed on 04.25.19 Encounter Details Date Type Department Care Team (Late st Contact Info) Description 04/30/2019 2:10 PM EST Office [place] [address] Clinic, Dr Delcid Team None History of total right knee replacement, R TKA performed in 2001; Status post total left knee replacement using cement Social History Tobacco [...] Sign Reading Time Taken Comments Blood Pressure 135/63 04/30/2019 2:06 PM EST Pulse 75 04/30/2019 2:06 PM EST Temperature - - Respiratory Rate - - Oxygen Saturation - - Inhaled Oxygen Concentration - - Weight 114.3 kg (252 lb) 04/30/2019 2:06 PM EST weighed Height 157.8 cm (5' 2.13) 04/30/2019 2:06 PM ES T measured Body Mass Index 45.9 04/30/2019 2:06 PM EST documented in this encounter Progress Notes * Roseann Ojeda, SENIOR SYSTEMS SOFTWARE ENGINEER - 04/30/2019 2:10 PM EST Arthroplasty/Orthopaedic History: 1. BTKA, Dr. Delcid, 2001 2. Revision Left Tibia, Dr. Delcid, 11/11/12 3. Left ENA, Dr. Dumont, 12/12/17 CC: RLE pain HPI: Stacy Knight is a very pleasant 69 y.o. year-old female and is now 18 yrs s/p BTKA and 7 years status post revision left tibial component. Reports that she had been doing well in regard to bothof her knees until about 1 week ago. Reports that her pain in the right lower extremity began either after falling into a pile of laundry or pulling the knee and right hip when trying to reposition in bed. She did not hit any hard surfaces. Reports that she developed pain extending all the way fromthe groin down to her foot. She has been utilizing anti-inflammatories, topical salves, cold and heat. She has had some improvement in her symptoms. The main focus of pain is in her groin and hip. She denies any increased swelling, redness or warmth of her knee. Denies any recent infections or hospitalizations. She has recently been seen in the spine center and after undergoing a lumbar spine MRIrevealed some mild degenerative changes. She does have a known diagnosis of moderate to severe osteoarthritis of the right hip. ROS: Denies: fever, chills, night sweats, nausea, or vomiting BP 135/63 Pulse 75 Ht 157.8 cm (5' 2.13) Comment: measured Wt 114.3 kg (252 lb) Comment: weighed BMI 45.90 kg/m?? Physical Exam: Well-appearing female in no acute distress. Alert and Oriented x 3 and answers all questions appropriately. Gait antalgic w/out assist. The incision about bilateral knees are well healed, with no signs of infection. No joint effusions, erythema, or ecchymosis. Non-TTP bilateral knees. ROM exam well tolerated. I have made the following determinations: Post Op Right Knee Exam: Knee ROM: Extension:0 Flexion: 120 Alignment: 0-4 degrees Neutral Stability: A/P Translation <5mm. Varus <5mm Valgus <5mm Extension La degrees or less Patella Tracking: Normal Pulses Palpable: Right PT: Yes Right DP:Yes Motor/Sensory: Distal Motor: Normal Distal Sensory: Normal Quadriceps Strength: 5 Post Op Left Knee Exam: Knee ROM: Extension:0 Flexion: 120 Alignment: 0-4 degrees Neutral Stability: A/P Translation <5mm Varus <5mm Valgus <5mm Extension La degrees or less Patella Tracking: Normal Pulses Palpable: Left PT:Yes Left DP:Yes Motor/Sensory: Distal Motor: Normal Distal Sensory: Normal Quadriceps Strength:5 X-RAYS: Multiple radiographic views were obtained at my request and reviewed with the patient. XR show well-placed prostheses with no evidence of fracture, subsidence, loosening, or periprosthetic complication, bilaterally. Previous right hip XR reviewed and reveal advanced joint space narrowing-medial and inferior. Questionnaire Responses: [facility] Surgical Postop Visit 04/30/2019 PROMIS-10 General Health Very Good PROMIS-10 Quality of Life Good PROMIS-10 Physical Health Good PROMIS-10 Mental Health Good PROMIS-10 Social Activity Good PROMIS-10 Everyday Activities Moderately PROMIS-10 Pain 5 PROMIS-10 Fatigue Moderate PROMIS-10 Social Roles Good PROMIS-10 Anxious or Depressed Sometimes PROMIS PHYSICAL HEALTH SCORE 39.8 PROMIS MENTAL HEALTH SCORE 43.5 HOOS JR Scores - KOOS JR Scores 50.01 Problems with surgical incision/wound after surgery No Gone to ER since knee surgery No Admitted to hospital since recent ortho surgery No Additional surgery on same body part No TKA Grade 3 Pain in other KNEE Moderate ENA Grade - Pain in other HIP - Back pain at this moment Moderate Satisfaction with Treatment Satisfied Choose Same Treatment Again Probably yes Orthopeadics [facility] Response 04/30/2019 HOOS JR Scores - KOOS JR Scores 50.01 Spine [facility] Response 04/30/2019 HOOS JR Scores - KOOS JR Scores 50.01 ASSESSMENT/PLAN: Ms. Knight is a 69 y.o. year old female status post bilateral total knee replacement and revision of the left tibial component with 1 week hx of increased RLE pain-primarily hip. Reviewed her XR and exam findings that reveal stable BTKA and severe OA of the right hip. Discussed hip OA is the likely source of her pain. Recommended she consult with Dr. Dumont regarding Right ENA. Shecould also consider a cortisone injection. She will continue weightbearing as tolerated and workingon range of motion. We will see her back in 3 years for repeat examination of bilateral knees. X-rays will be needed at that time. Patient may return to normal activities as her pain and function allo w. We discussed the appropriate precautions surrounding dental prophylaxis; according to the AAOS Appropriate Use Criteria we do not recommend antibiotic use prior to dental procedures for Stacy. Recommended antibiotic: N/A If Stacy has any changes in health status we recommend she contact our office prior to dental procedures for updated recommendations We also discussed maintaining good foot care and giving prompt attention to any source of infectionthroughout the body including foot ulcers and urinary tract infections. All questions were answered. Signed: Roseann Ojeda APRN 04/30/2019 documented in this encounter Plan of Treatment Upcoming Encounters Date Type Department Care Team (Late st Contact Info) Description 03/04/2024 12:00 PM EST Office Visit [place] [address] Jordyn Francisco MD [facility] OBSTETRICS [place] [address] documented as of this encounter Visit Diagnoses Diagnosis History of total right knee replacement, R TKA performed in 2001 Status post total left knee replacement using cement documented in this encounter Care Teams Chair Mender Relationship Specialty Start Date End Date Dandy Driscoll APRN [address] [place] [address] [place] [address] PCP - General Family Medicine 01/20/16 documented as of this encounter
--- OUTSIDE RECORDS SUMMARY | 2024-02-27 19:35 | XMS_ITS | Encounter Summary ---
[place] [address] Care Team Providers Care Fish Cutting Machine Operator Name Role Phone Dandy Driscoll APRN Primary Care Provider [phone] Reason for Visit * Reason Comments Follow-up wound check s/p Left ENA DOS 02/13/18 Encounter Details Date Type Department Care Team (Late st Contact Info) Description 03/22/2018 11:00 AM EST Office Visit [place] [phone] Patrick Dumont MD Status post total replacement of left hip [...] Sign Reading Time Taken Comments Blood Pressure 150/66 03/22/2018 11:04 AM EST Pulse 82 03/22/2018 11:04 AM EST Temperature 36.4 ??C (97.6 ??F) 03/22/2018 11:[address] Respiratory Rate - - Oxygen Saturation - - Inhaled Oxygen Concentration - - Weight - - Height - - Body Mass Index - - documented in this encounter Progress Notes * Patrick Dumont MD - 03/22/2018 11:00 AM EST Patient returns today about 5 weeks status post left anterior total hip. She has had some slow wound healing in the central portion of the wound underneath her pannus. No signs of infection however. She has no pain. She is quite happy with her outcome. We have been monitoring her wound. She had no fevers or chills. She been keeping a Mepilex on her incision for 1 week at a time. Exam: Lying on the hospital bed her left anterior wound shows 2 areas of very pinpoint opening superficial without significant drainage. There is ecchymosis in the central portion without any surrounding erythema. Nontender. Hip range of motion is smooth without discomfort. Recent Results (from the past 24 hour(s)) Sedimentation rate Result Value Ref Range Sed Rate 33 (H) 0 - 20 mm/hr CRP, acute inflammation Result Value Ref Range CRP 11.0 (H) <=4.9 mg/L Hemogram Result Value Ref Range WBC 6.9 4.0 - 9.5 x10(3)/mcL RBC 3.77 (L) 4.00 - 5.21 x10(6)/mcL Hemoglobin 11.6 (L) 11.7 - 15.5 gm/dL Hematocrit 35.9 35.7 - 45.8 % MCV 95.2 (H) 82.6 - 94.4 fL MCH 30.8 27.1 - 32.0 pg MCHC 32.3 31.7 - 35.0 gm/dL Platelets 311 145 - 357 x10(3)/mcL RDWSD 46.5 (H) 37.0 - 46.0 fL RDWCV 13.2 11.5 - 14.1 % MPV 11.0 7.6 - 12.9 fL nRBC % Auto 0.0 % nRBC Abs Auto 0.000 0.000 - 0.000 x10(3)/mcL Differential, Automated Result Value Ref Range Neutrophils % 59.6 % Neutr Abs (ANC) 4.11 1.70 - 6.10 x10(3)/mcL Lymphocytes % 28.7 % Lymphocytes Abs 2.0 0.9 - 3.2 x10(3)/mcL Monocytes % 7.0 % Monocyte Abs 0.5 0.3 - 0.9 x10(3)/mcL Eosinophils % 3.5 % Eosinophils Abs 0.2 0.0 - 0.4 x10(3)/mcL Basophils % 0.6 % Basophils Abs 0.0 0.0 - 0.1 x10(3)/mcL Immature Gran % 0.60 % [place] Gran Abs 0.04 0.00 - 0.04 x10(3)/mcL Assessment/plan: Patient is a 67-year-old female about 5 weeks status post left anterior total hip.She has had some delayed wound healing. There is no surrounding erythema or drainage. She has no pain in her hip. Her CRP is 11 and her sed rate is 33. This certainly could be elevated just from surgery at this point. I see no signs of overall infection. I did however place her on 7 days of Keflex as a precautionary measure while her wound heals up completely. She will keep her Mepilex on with some Iodosorb on the central portion. She will send me a picture of her wound in 1 week. documented in this encounter Plan of Treatment Upcoming Encounters Date Type Department Care Team (Late st Contact Info) Description 03/04/2024 12:00 PM EST Office Visit [place] [address] Jordyn Francisco MD [facility] DR OBSTETRICS [place] [address] documented as of this encounter Procedures Procedure Name Priority Date/Time Associated Diagnosis Comments CRP, ACUTE INFLAMMATION STAT 03/22/2018 11:35 AM EST Status post total replacement of left hip HEMOGRAM STAT 03/22/2018 11:35 AM EST Status post total replacement of left hip DIFFERENTIAL, AUTOMATED STAT 03/22/2018 11:35 AM EST Status post total replacement of left hip SEDIMENTATION RATE STAT 03/22/2018 11 :35 AM EST Status post total replacement of left hip CBC (WITH DIFF) STAT 03/22/2018 11:35 AM EST Status post total replacement of left hip documented in this encounter Results * Differential, Automated (03/22/2018 11:35 AM EST) Neutrophil % 59.6 % [facility] Neutrophil Absolute 4.11 1.70 - 6.10 x10(3)/[facility] Lymph % 28.7 % [facility] Lymphocytes Abs 2.0 0.9 - 3.2 x10(3)/[facility] Monocyte % 7.0 % [facility] Monocyte Abs 0.5 0.3 - 0.9 x10(3)/[facility] Eos % 3.5 % [facility] Eosinophils Abs 0.2 0.0 - 0.4 x10(3)/[facility] Basophil % 0.6 % [facility] Baso Absolute 0.0 0.0 - 0.1 x10(3)/[facility] Immature Gran % 0.60 % [facility] Comment: Immature granulocytes(IG's)percentage and absolute count will include metamyelocytes, myelocytes, and promyelocytes. Blood smears from CBCs yielding IG's will be scanned manually for concordance. If this scan disagrees with the automated IG or if promyelocytes are noted, a manual differential will be performed. Immature Gran Absolute 0.04 0.00 - 0.04 x10(3)/[facility] Blood specimen (specimen) 03/22/2018 11:35 AM EST 03/22/2018 11:40 AM EST Narrative Resulting Agency Comment Spec In Lab Patrick Dumont MD HEMATOLOGY ORDERABLE S [facility] [place] [address] * (ABNORMAL) Hemogram (03/22/2018 11:35 AM EST) [facility] White Blood Cell 6.9 4.0 - 9.5 x10(3)/mc L [facility] Red Blood Cell 3.77(L) 4.00 - 5.21 x10(6)/mc L [facility] Hemoglobin 11.6(L) 11.7 - 15.5 gm/dL [facility] Hematocrit 35.9 35.7 - 45.8 % [facility] Mean Cell Volume 95.2(H) 82.6 - 94.4 fL [facility] Mean Cell Hemoglobin 30.8 27.1 - 32.0 pg [facility] Mean Cell Hemoglobin Concentration 32.3 31.7 - 35.0 gm/dL [facility] Platelet 311 145 - 357 x10(3)/mc L [facility] RDW Standard Deviation 46.5(H) 37.0 - 46.0 fL [facility] RDW coefficient of variation 13.2 11.5 - 14.1 % [facility] Mean Platelet Volume 11.0 7.6 - 12.9 fL [facility] NRBC% auto 0.0 % [facility] NRBC Absolute 0.000 0.000 - 0.000 x10(3)/mc L [facility] Blood specimen (specimen) 03/22/2018 11:35 AM EST 03/22/2018 11:40 AM EST Narrative Resulting Agency Comment Spec In Lab Patrick Dumont MD HEMATOLOGY ORDERABLE S Performing Organization Address [facility] Co de Phone Number [facility] [place] [address] * (ABNORMAL) Sedimentation rate (03/22/2018 11:35 AM EST) Sedimentation Rate Automated 33(H) 0 - 20 mm/hr [facility] Blood specimen (specimen) 03/22/2018 11:35 AM EST 03/22/2018 11:40 AM EST Narrative Resulting Agency Comment Spec In Lab Patrick Dumont MD HEMATOLOGY ORDERABLE S Performing Organization Address City/[facility]/ZIP Co de Phone Number [facility] [place] [address] * (ABNORMAL) CRP, acute inflammation (03/22/2018 11:35 AM EST) C-Reactive Protein 11.0(H) <=4.9 mg/L [facility] Blood specimen (specimen) 03/22/2018 11:35 AM EST 03/22/2018 11:40 AM EST Narrative Resulting Agency Comment Spec In Lab Patrick Dumont MD CHEMISTRY ORDERABLES Performing Organization Address City/State/[facility] Co de Phone Number [facility] [place] [phone] documented in this encounter Visit Diagnoses Diagnosis Status post total replacement of left hip documented in this encounter Care Teams Fish Cutting Machine Operator Relationship Specialty Start Date End Date Dandy Driscoll APRN [address] [place] [address] SHELLI Reich [phone] PCP - General Family Medicine 01/20/16 documented as of this encounter
--- OUTSIDE RECORDS SUMMARY | 2024-02-27 19:35 | XMS_ITS | Encounter Summary ---
[place] [address] Care Team Providers Care Commercial Front Load Driver Name Role Phone Dandy Driscoll APRN Primary Care Provider [phone] Reason for Visit * Reason Comments Follow-up right hip pain - hav ing back pain Encounter Details Date Type Department Care Team (Latest Contact Info) Description 05/29/2019 1:30 PM EST Office [place] [address] Patrick Dumont MD Primary osteoarthritis of right [...] Sign Reading Time Taken Comments Blood Pressure 147/63 05/29/2019 12:51 PM EST Pulse 80 05/29/2019 12:51 PM EST Temperature - - Respiratory Rate - - Oxygen Saturation - - Inhaled Oxygen Concentration - - Weight 112.4 kg (247 lb 14.4 oz) 2019 12:51 PM EST measured Height 153.2 cm (5' 0.32) 05/29/2019 1 2:51 PM EST measured Body Mass Index 47.91 05/29/2019 12:51 PM EST documented in this encounter Progress Notes * Alejandrina Elliott PA - 05/29/2019 1:30 PM EST Arthroplasty/Orthopaedic History: 1. Left ENA - 02/13/18 - Dr. Dumont HPI: Stacy Knight is a very pleasant 69 y.o. year-old female who presents to clinic with right hippain. She has been having progressive worsen of her hip pain over the past year. The past few months have been very hard for her. She is having a lot of trouble walking and caring for her home in [facility]. Her a month ago and this has been hard on her both physically and mentally. Her pain feels identical to her left hip pain prior to surgery. She is now ambulating with two canes. She is interested in definitive management. ROS: Denies: fever, chills, night sweats, nausea, or vomiting BP 147/63 (BP Location (NBP): Right arm, Patient Position: Sitting, BP Cuff Sizes: Large Adult (32-43 cm)) Pulse 80 Ht 153.2 cm (5' 0.32) Comment: measured Wt 112.4 kg (247 lb 14.4 oz) Comment: measured BMI 47.91 kg/m?? Physical Exam: Well-appearing female in no acute distress. Alert and Oriented x 3 and answers all questions appropriately. I have made the following determinations: Hip Exam: Right Prior surgery on this joint: No Leg length: Longer leg: equal Limb Length discrepancy: 0cm Motion: Flexion contracture: 0 Total degrees of Flexion:90 Total degrees of Abduction:45 Total degrees of Ext Rotation: 25 Total degrees of Internal Rotation: 0 Gait Abnormality: Antalgic Radiographic evidence of joint damage: [0= normal; 1=minimal ; 2= some osteophytes , some narrowing ; 3= moderate osteophytes, significantnarrowing, mild deformity; 4= large osteophytes, marked narrowing, obvious deformity]: 4= large osteophytes, marked narrowing, obvious deformity Skin Integrity: Normal Pulses Palpable: Right PT: Yes Right DP:Yes Motor/Sensory: Right Distal Motor: Normal Distal Sensory: Normal Hip Abductors: 4 Trendelenburg test: negative X-RAYS: I reviewed X-rays taken today of the right hip which show complete loss of joint space, marginal osteophytes, and subchondral sclerosis. Questionnaire Responses: [facility] Surgical Postop Visit 05/29/2019 PROMIS-10 General Health Good PROMIS-10 Quality of Life Good PROMIS-10 Physical Health Good PROMIS-10 Mental Health Very Good PROMIS-10 Social Activity Very Good PROMIS-10 Everyday Activities Moderately PROMIS-10 Pain 5 PROMIS-10 Fatigue Moderate PROMIS-10 Social Roles Fair PROMIS-10 Anxious or Depressed Sometimes PROMIS PHYSICAL HEALTH SCORE 39.8 PROMIS MENTAL HEALTH SCORE 48.3 HOOS JR Scores 55.99 KOOS JR Scores - Problems with surgical incision/wound after surgery - Gone to ER since knee surgery - Admitted to hospital since recent ortho surgery - Additional surgery on same body part - TKA Grade - Pain in other KNEE - ENA Grade 5 Pain in other HIP - Back pain at this moment - Satisfaction with Treatment Somewhat satisfied Choose Same Treatment Again Probably yes [facility] Response 05/29/2019 HOOS JR Scores 55.99 KOOS JR Scores - Spine [facility] Response 05/29/2019 HOOS JR Scores 55.99 KOOS JR Scores - ASSESSMENT/PLAN: Ms. Knight is a 69 y.o. year old female with right hip pain. She has severe OA in the hip. We reviewed her x-rays together today. Ultimately, this is severely impacting her life. She did really well with her left total hip replacement, although there was some delayed wound healing. She would be a candidate for right total hip replacement. Dr. Dumont also met with and evaluated the patient today. Ultimately, she elected to proceed with right ENA. * Patrick Dumont MD - 05/29/2019 1:30 PM EST I have seen the patient and reviewed Alejandrina DANG's history/physical and I agree with the detailsas written. The assessment and plan were formulated in discussion with me and I agree with them as documented. In brief, patient is a 69-year-old female who presents today with continued right groin pain. She has history of left total hip performed. At this point, she is questioning the utility of a right total hip. Her has recently and she is responsible for all activities at the home. She is unable to complete these with her hip the current way it is. I discussed that she is still at high risk for infection due to her weight. She certainly understands this. She like to move forward after the snow resides with her hip I think this is reasonable. Orders were placed today. Patrick Dumont MD, MS 05/29/2019 documented in this encounter Plan of Treatment Upcoming Encounters Date Type Department Care Team (Late st Contact Info) Description 03/04/2024 12:00 PM EST Office Visit [place] [address] Jordyn Francisco MD [facility] [place] [address] documented as of this encounter Visit Diagnoses Diagnosis Primary osteoarthritis of right hip Primary localized osteoarthrosis, pelvic region and thigh documented in this encounter Care Teams Commercial Front Load Driver Relationship Specialty Start Date End Date Dandy Driscoll APRN [address] [place] [address] [place] [phone] PCP - General Family Medicine 01/20/16 documented as of this encounter
--- OUTSIDE RECORDS SUMMARY | 2024-02-27 19:35 | XMS_ITS | Encounter Summary ---
Author Organization [facility] Address [facility] [place] [address] Care Team Providers Care Chalk Extruding Machine Operator Name Role Phone Dandy Driscoll APRN Primary Care Provider [phone] Reason for Visit * Reason Comments Follow-up MRI Lumbar Encounter Details Date Type Department Care Team (Latest Contact Info) Description 04/28/2019 3:40 PM EST Office Visit [facility] Sp[facility] at [facility], operated by [facility] [place] [address] Noam De La Fuente PA [facility] [address] Primary osteoarthritis of right hip Social History [...] as of this encounter Progress Notes * Noam De La Fuente PA - 04/28/2019 3:40 PM EST Stacy Knight is a 69-year-old female I am seeing today for chief complaint of chronic low back pain, and also right hip pain with findings of rather severe osteoarthritis of the right hip with question of lumbar spinal involvement. To assess this issue further, she underwent a lumbar spine MRI earlier today at my request. I reviewed the study with her. 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 Aside from that we are not seeing any significant lumbar spinal stenosis. At most she has an L5-S1 degenerative anterolisthesis, with some bilateral foraminal stenosis of the exiting L5 nerve roots but no significant central stenosis and no other concerning nerve root compression. I advised Ms. Knight that ultimately I do not really see much significant pathology in her low back.L5-1 listhesis is low-grade in the degree of involvement of bilateral foraminal stenosis does not really match her disabling pain on her back and right leg such that she is unable to weight-bear or put on her shoes and socks. She does not have symptoms of an L5 radiculopathy. I do not see much indication that she needs treatment for her low back. I recommend that she connect back with [facility] De La Cruz, to pursue further treatment for her rather severe osteoarthritis of the right hip. This would recommend moving towards considerations of intra-articular right hip injectionand also potential right hip replacement surgery although he is at elevated risk of complications given her significant obesity. documented in this encounter Plan of Treatment Upcoming Encounters Date Type Department Care Team (Late st Contact Info) Description 03/04/2024 12:00 PM EST Office Visit [place] [address] Jordyn Francisco MD [facility] OBSTETRICS [place] [address] documented as of this encounter Visit Diagnoses Diagnosis Primary osteoarthritis of right hip Primary localized osteoarthrosis, pelvic region and thigh documented in this encounter Care Teams Chalk Extruding Machine Operator Relationship Specialty Start Date End Date Dandy Driscoll APRN [address] [place] [address] [place]I Reich [phone] PCP - General Family Medicine 01/20/16 documented as of this encounter
--- OUTSIDE RECORDS SUMMARY | 2024-02-27 19:35 | XMS_ITS | Encounter Summary ---
[place] [address] Care Team Providers Care Transmission Supervisor Name Role Phone Dandy Driscoll APRN Primary Care Provider [phone] Reason for Visit * Reason Onset Date Comments Other 01/15/2019 staple accident to left thigh Encounter Details Date Type Department Care Team (Late st Contact Info) Description 01/15/2019 Telephone [place] [phone] Jenny Clarke RN Other (staple accident to left thigh) Social History Tobacco Use Types Packs/Day Years [...] encounter Miscellaneous Notes * Telephone Encounter - Jenny Clarke RN - 01/15/2019 11:21 AM EDT Patient accidentally ejected staple into left thigh approx 6 inches above knee left side s/p aminah 02/24. Removed staple and area now black and blue. She will call PCP to check on tetanus/other guidance. FYI. Thanks. documented in this encounter Plan of Treatment Upcoming Encounters Date Type Department Care Team (Late st Contact Info) Description 03/04/2024 12:00 PM EST Office Visit [place] [address] Jordyn Francisco MD [facility] OBST[place] [address] documented as of this encounter Visit Diagnoses Not on filedocumented in this encounter Care Teams Transmission Supervisor Relationship Specialty Start Date End Date Dandy Driscoll APRN [address] [place] [address] [place] [phone] PCP - General Family Medicine 01/20/16 documented as of this encounter
--- OUTSIDE RECORDS SUMMARY | 2024-02-27 19:35 | XMS_ITS | Encounter Summary ---
[place] [address] Care Team Providers Care Ciso Name Role Phone Dandy Driscoll APRN Primary Care Provider [phone] Reason for Visit * Reason Comments Pre-op Exam CASE REQ 11/24/20 RIG HT ENA ANT Encounter Details Date Type Department Care Team (Latest Contact Info) Description 11/11/2020 11:30 AM EDT Office [place] [address] Patrick Dumont MD Primary osteoarthritis of right [...] Sign Reading Time Taken Comments Blood Pressure 145/61 11/11/2020 11:08 AM EDT Pulse 72 11/11/2020 11:08 AM EDT Temperature - - Respiratory Rate - - Oxygen Saturation - - Inhaled Oxygen Concentration - - Weight 112.5 kg (248 lb 0.3 oz) 021 11:08 AM EDT Height 157.5 cm (5' 2.01) 11/11/2020 1 1:08 AM EDT Body Mass Index 45.35 11/11/2020 11:08 AM EDT documented in this encounter Progress Notes * Patrick Dumont MD - 11/11/2020 11:30 AM EDT Arthroplasty History/Previous Orthopaedic Surgery: 1. Left ENA - 02/13/18 - Dr. Dumont 2. R TKA 2001 3. L TKA revision by Dr. Delcid 2012 This note is recorded by Denita Nagel RN acting as a scribe for Dr. Rigo Dumont. PREOPERATIVE VISIT Interval History: Stacy Knight is a pleasant 70 y.o. year old female being seen today to discuss a right total hip replacement. Her history was once again discussed and is outlined in a previous note. They have reviewed their options and at this point are expressing a desire to proceed with surgery. Physical Exam: Exam is previously documented in a note and is essentially unchanged. Inspection of her skin on the operative side demonstrates No skin breakdown or open wounds. Significant Medical Comorbidities Patient Active Problem List Diagnosis Code ??? Impaired renal function N28.9 ??? Tibial component revision L knee (11/11/2012, Bhavin) Z96.659 ??? History of total right knee replacement, R TKA performed in 2001 Z96.651 ??? Pain in left hip M25.552 ??? Primary osteoarthritis of left hip M16.12 ??? Morbid obesity with BMI of 40.0-44.9, adult E66.01, Z68.41 ??? 02/13/2018 S/P left total hip arthroplasty (Dr. Dumont) Z96.649 ??? Primary osteoarthritis of right hip M16.11 VITALS: BP Readings from Last 1 Encounters: 11/11/20 145/61 Pulse Readings from Last 1 Encounters: 11/11/20 72 Height: 157.5 cm (5' 2.01) Weight: 112.5 kg (248 lb 0.3 oz) Body mass index is 45.35 kg/m??. Relevant Lab Studies Lab Results Component Value Date WBC 7.1 11/05/2020 HGB 12.9 11/05/2020 HCT 39.3 11/05/2020 PLATELET 226 11/05/2020 CREATININE 0.59 (L) 11/05/2020 BUN 12 11/05/2020 NA 143 11/05/2020 K 3.5 11/05/2020 CRP 11.0 (H) 03/22/2018 SEDRATE 33 (H) 03/22/2018 INR 1.1 11/05/2020 No results for input(s): HA1C in the last 7068 hours. No results for input(s): ALBUMIN in the last 168 hours. Estimated Creatinine Clearance: 106.7 mL/min (A) (based on SCr of 0.59 mg/dL (L)). TJA Clotting and Bleeding Assessment Genetic predisposition or history of DVT or PE: No Hypercoaguable state?: No History of bleeding disorder?: No GI bleed or history of hemorrhagic stroke within the past 2 years: No Patient on lifelong anticoagulant for other reasons: No Discharge anticoagulation plan: ASA 81mg BID for 30 days Infection Prevention Patient demonstrated appropriate skin integrity/infection knowledge level after instructions provided: Yes Patient demonstrated appropriate dental prophylaxis knowledge level after instructions provided: Yes Patient demonstrated appropriate understanding of chlorhexideine wash and mupirocin ointment: Yes General Assessment Total joint preparedness for surgery: Received binder, 1:1 Patient understands when to call the office pre-op and post-op: Verbalizes understanding Assistive device(s) used pre-op: Forearm crutches Patient currently on narcotics: Yes Patient has narcotic agreement signed: Yes (see comment for prescriber information) (From Dr. Dumontrecfarida) Assessment and Plan: This is a pleasant 70 y.o. year-old female who presents for a preoperative appointment today for consideration of a right total hip replacement. We had a discussion regarding the risks and benefits of surgery. I indicated that in my opinion, this is a treatment option most likely to restore a more normal, pain- free level of function and that we have exhausted reasonable non-operative alternatives. I discussed how I perform the procedure and all of their questions were answered. We discussed the risks of a total hip arthroplasty: Bleeding, infection, scar formation, dislocation, leg length inequality, persistent pain, stiffness, bursitis, failure/wear/loosening/breakage of implants, implant malposition, need for additional/future surgery, fracture, clot formation, embolus,stroke, nerve palsy, blood vessel injury, skin numbness, anesthetic and/or medical complications, . We reviewed options for postoperative DVT prophylaxis, based on AAOS guidelines. We discussed the pros and cons of different anticoagulants in terms of effectiveness and clot / embolus preventions vs. risks of bleeding and wound complications. We also reviewed their preferences regarding use of blood products and confirmed that while we would endeavor to minimize the risks of needing any transfusions, if circumstances were such that one ormore were indeed required, she would NOT refuse a blood transfusion. Stacy Knight will be prescribed a prescription opioid for the treatment of acute post-operative pain related to orthopedic surgery. Stacy Knight was advised to take the smallest dose possible to control their pain and as their pain improves to take smaller doses and increase the time between doses. The Acute Opioid Therapy Informed Consent form has been completed and sent to medical records for scanning to chart. Opioid Risk Assessment 11/11/2020 DAST-10 Risk Assessment Low (1-2) Some recent data might be hidden Opioid PDMP 11/11/2020 01/10/2018 11/15/2017 [place] PDMP Query Date 11/11/2020 02/15/2018 11/08/2017 [place] PDMP Query Date 11/11/2020 02/15/2018 11/08/2017 [place] PDMP Query Date 11/11/2020 02/08/2018 - In addition to this medication, non-opioid medications will be prescribed for adjunct treatment of their pain. Non-pharmacological treatment such as ice, elevation and activity modification was recommended as appropriate. Stacy Knight was instructed to administer Mupirocin into the nares twice daily starting 5 days prior to surgical date. Additional instructions were given to her at the time the medication was dispensed. She was also given chlorhexidine soap to use the night before and the morning of surgery. We discussed with the patient the possible discharge scenarios. The patient will require VNA services post-op: yes, patient/caregivers were educated about their right to choose where referrals are placed patient lives in [place], no preference on VNA. Prep for Surgery Advance Directive: Does not have one (does not want to fill out) Recommend referral to Patient Financial Services: Yes Living arrangement: House Home layout: One level, Stairs to enter w/ rails The patient prefers Forearm Crutches to help with post-operative ambulation. The patient has crutches and will bring them to surgery. Recommendations from Dr. De Leon: Hold lisinopril if SBP<120 Continue loperamide, tramadol Post operative orthopaedic anti-coagulation plan: PEPPER Study Chronic anti-coagulation: no Does patient have metal allergy? No Expedited Discharge Candidate?: NO We discussed using Celebrex while in house. Upon discharge we will give the patient Naprosyn to take for 6 weeks after surgery for post-operative pain management. Any remaining questions were solicited from the patient and answered. Ms. Knight wishes to proceed accordingly and informed consent was subsequently obtained for a right total hip replacement. I have personally evaluated the patient and agree with the above note as recorded by KATINA Zuleta MD 11/11/2020 documented in this encounter Plan of Treatment Upcoming Encounters Date Type Department Care Team (Late st Contact Info) Description 03/04/2024 12:00 PM EST Office Visit [place] [address] [facility] [address] OBSTETRICS [place] [address] documented as of this encounter Visit Diagnoses Diagnosis Primary osteoarthritis of right hip Primary localized osteoarthrosis, pelvic region and thigh documented in this encounter Administered Medications Inactive Administered Medications - up to 3 most recent administrations Medication Order MAR Action Action Date Dose Rate Site mupirocin (BACTROBAN) 2 % ointment 1 each 1 each, Topical (Top), 2 TIMES DAILY, First dose on Effie 11/11/20 at 0945, 10 doses, Last dose on 11/15/20 at 2100, Apply two times daily to nares for 5 days prior to surgery Given 11/11/2020 11:21 AM EDT 1 each documented in this encounter Care Teams Ciso Relationship Specialty Start Date End Date Dandy Driscoll APRN [address] [place] [address] SHELLI Reich [phone] PCP - General Family Medicine 01/20/16 documented as of this encounter
--- OUTSIDE RECORDS SUMMARY | 2024-02-27 19:35 | XMS_ITS | Encounter Summary ---
Author Organization [facility] Address [facility] [place] [address] Care Team Providers Care Money Room Supervisor Name Role Phone Dandy Driscoll APRN Primary Care Provider [phone] Encounter Details Date Type Department Care Team (Latest Contact Info) Description 05/29/2019 11:26 AM EST - 05/29/2019 11:59 PM [facility] Hospital Encounter XRay at [address] [place] [address] Patrick Dumont MD Pain in right hip Discharge Disposition: Home Social History Tobacco Use [...] the lungs every 4 hours as needed. ibuprofen (Advil;Motrin) 200 mg Tablet Take 200 [...] PM EST Office Visit Gynecology Oncology at [facility] [place] [address] Jordyn Francisco MD [facility] [address] OBSTETRICS [place] [address] documented as of this encounter Procedures Procedure Name Priority Date/Time Associated Diagnosis Comments XR PELVIS AND HIP 2 VIEWS RIGHT Routine 05/29/2019 11:36 AM EST Pain in right hip documented in this encounter Results * XR Pelvis and Hip 2 Views Right (05/29/2019 11:36 AM EST) Anatomical Region Laterality Modality Pelvis, Hip Right Digital Radiogra phy Impressions 05/29/2019 12:26 PM EST IMPRESSION: Unchanged moderate right hip joint degenerative change. Thank you for letting us participate in the care of this patient. For questions regarding this report, please contact the number below. ? Narrative 05/29/2019 12:26 PM EST EXAMINATION: XR PELVIS AND HIP 2 VIEWS RIGHT CLINICAL HISTORY: Right hip pain TECHNIQUE: AP pelvis +2 views of the right hip COMPARISON: Left hip radiographs 01/30/2019 FINDINGS: The patient's large body habitus limits this examination. No fracture. No subluxation. Left ENA with a cerclage wire appears unchanged on the frontal projection. Similar appearance of moderate right femoral acetabular joint space narrowing. The right-sided femoral head maintains its typical spherical configuration. No remarkable osteophytosis. Lower lumbar spine facet arthropathy noted. Procedure Note Kade Young MD - 05/29/2019 EXAMINATION: XR PELVIS AND HIP 2 VIEWS RIGHT CLINICAL HISTORY: Right hip pain TECHNIQUE: AP pelvis +2 views of the right hip COMPARISON: Left hip radiographs 01/30/2019 FINDINGS: The patient's large body habitus limits this examination. No fracture. No subluxation. Left ENA with a cerclage wire appears unchanged on the frontalprojection. Similar appearance of moderate right femoral acetabular joint spacenarrowing. The right-sided femoral head maintains its typical sphericalconfiguration. No remarkable osteophytosis. Lower lumbar spine facet arthropathy noted. IMPRESSION IMPRESSION: Unchanged moderate right hip joint degenerative change. Thank you for letting us participate in the care of this patient. Forquestions regarding this report, please contact the number below. Patrick Dumont MD IMG DX ORDERABLES documented in this encounter Visit Diagnoses Diagnosis Pain in right hip Pain in joint, pelvic region and thigh documented in this encounter Care Teams Money Room Supervisor Relationship Specialty Start Date End Date Dandy Driscoll APRN [address] [place] [address] [place] [id number] PCP - General Family Medicine 01/20/16 documented as of this encounter
--- OUTSIDE RECORDS SUMMARY | 2024-02-27 19:35 | XMS_ITS | Encounter Summary ---
Author Organization Replaced By [facility] Address [facility] [place] [address] Care Team Providers Care Apprentice Electrician Name Role Phone Dandy Driscoll APRN Primary Care Provider [phone] Encounter Details Date Type Department Care Team (Latest Contact Info) Description 04/30/2019 12:25 PM EST - 04/30/2019 11:59 PM [facility] Hospital Encounter XRay at [address] [place] [address] Carlos Delcid MD [facility] [place] [address] Status post total left knee replacement using cement; Acute pain of right knee Discharge Disposition: Home Social History Tobacco Use [...] PM EST Office Visit [place] [address] Jordyn Francisco MD [facility] DR [place]ST[place] [address] documented as of this encounter Procedures Procedure Name Priority Date/Time Associated Diagnosis Comments XR KNEE STANDING ALIGNMENT AND 1-2 VIEWS RIGHT Routine 04/30/2019 12:43 PM EST Status post total left knee replacement using cement Acute pain of right knee documented in this encounter Results * XR Knee Standing Alignment & 1-2 views Right (04/30/2019 12:43 PM EST) Anatomical Region Laterality Modality Knee Right Digital Radiogra phy Impressions 04/30/2019 3:10 PM EST 1. ??Status post right total knee arthroplasty. No periprosthetic fracture. Small nonspecific knee joint effusion. 2. ??Incompletely evaluated left total knee arthroplasty. 3. ??Mechanical axes of the bilateral legs, as described. Thank you for letting us participate in the care of this patient. For questions regarding this report, please contact the number below. ? Electronically signed by: Charo Rogel [facility] ([phone]), at 04/30/2019 3:10 PM Narrative 04/30/2019 3:10 PM EST EXAMINATION: XR KNEE STANDING ALIGNMENT AND 1-2 VIEWS RIGHT CLINICAL HISTORY: right knee pain,DOI 04/21; s/p TKA 2001 TECHNIQUE: Separate images of the pelvis, knees and feet were acquired in the AP projection with the patient standing. These images were stitched together to form a composite image of the pelvis and legs allowing for evaluation of lower extremity alignment in the weight bearing position. AP and lateral views of the right knee. COMPARISON: Bilateral knee radiographs most recently 03/14/2018 and dating back to 12/15/2003. FINDINGS: Mechanical axis of the right leg passes 2.7 cm medial to the central tibial tray. Mechanical axis of the left leg passes 0.6 cm medial to the central tibial tray. There are postoperative changes of left total hip arthroplasty, incompletely evaluated on these leg length views. Incomplete evaluation of the left total knee arthroplasty on the limited leg length view. Postoperative changes of right total knee arthroplasty with an additional screw traversing the proximal tibia. There is no periprosthetic fracture. Minimal (less than 2 mm lucency at the bone-metal interface of the femoral component is essentially unchanged since 2003. Small knee joint effusion. Unchanged heterotopic ossification on the lateral margin of the right knee joint. Procedure Note Charo Rogel MD - 04/30/2019 EXAMINATION: XR KNEE STANDING ALIGNMENT AND 1-2 VIEWS RIGHT CLINICAL HISTORY: right knee pain,DOI 04/21; s/p TKA 2001 TECHNIQUE: Separate images of the pelvis, knees and feet were acquired inthe AP projection with the patient standing. These images were stitched togetherto form a composite image of the pelvis and legs allowing for evaluation oflower extremity alignment in the weight bearing position. AP and lateral viewsof the right knee. COMPARISON: Bilateral knee radiographs most recently 03/14/2018 and datingback to 12/15/2003. FINDINGS: Mechanical axis of the right leg passes 2.7 cm medial to the centraltibial tray. Mechanical axis of the left leg passes 0.6 cm medial to the centraltibial tray. There are postoperative changes of left total hip arthroplasty,incompletely evaluated on these leg length views. Incomplete evaluation of the left total knee arthroplasty on the limitedleg length view. Postoperative changes of right total knee arthroplasty with an additionalscrew traversing the proximal tibia. There is no periprosthetic fracture.Minimal (less than 2 mm lucency at the bone-metal interface of the femoralcomponent is essentially unchanged since 2004. Small knee joint effusion. Unchanged heterotopic ossification on the lateral margin of the right knee joint. IMPRESSION 1. Status post right total knee arthroplasty. No periprosthetic fracture.Small nonspecific knee joint effusion. 2. Incompletely evaluated left total knee arthroplasty. 3. Mechanical axes of the bilateral legs, as described. Thank you for letting us participate in the care of this patient. Forquestions regarding this report, please contact the number below. Electronically signed by: Charo Rogel [facility]([phone]), at 04/30/2019 3:10 PM Carlos Delcid MD IMG DX ORDERABLES documented in this encounter Visit Diagnoses Diagnosis Status post total left knee replacement using cement Acute pain of right knee documented in this encounter Care Teams Apprentice Electrician Relationship Specialty Start Date End Date Dandy Driscoll APRN [address] [place] [address] SHE[place] Reich [phone] PCP - General Family Medicine 01/20/16 documented as of this encounter
--- OUTSIDE RECORDS SUMMARY | 2024-02-27 19:35 | XMS_ITS | Encounter Summary ---
[place] [address] Care Team Providers Care Hvac Commercial Salesperson Name Role Phone Dandy Driscoll APRN Primary Care Provider [phone] Reason for Visit * Reason Onset Date Comments Questions 11/09/2020 Encounter Details Date Type Department Care Team (Late st Contact Info) Description 11/09/2020 Telephone [place] [address] Carlos Rockwell Questions Social History Tobacco Use Types Packs/Day Years [...] encounter Miscellaneous Notes * Telephone Encounter - Carlos Rockwell - 11/09/2020 10:19 AM EDT Triage Note Subjective: pt calls stating she is returning a call with a msg left stating download information from [facility] questions/Assessment: pt is schedule for pre=op w/Dr. Dumont on 11/11 for 11/24 RT ENA. No telephone note available. Pt states she cannot access [facility] from home and is progressively becoming homebound. She would like any paperwork she needs printed and available to her during her 11/11 pre-op appointment. Plan: forwarding to clinical team for guidance Patient/Responsible democrat voices an understanding of advice? yes Patient/Responsible democrat intends to comply with action/disposition: yes documented in this encounter Plan of Treatment Upcoming Encounters Date Type Department Care Team (Late st Contact Info) Description 03/04/2024 12:00 PM EST Office Visit [place] [address] Jordyn Francisco MD [facility] OBSTETRICS [place] [address] documented as of this encounter Visit Diagnoses Not on filedocumented in this encounter Care Teams Hvac Commercial Salesperson Relationship Specialty Start Date End Date Dandy Driscoll APRN [address] [place] [address] SHE[place] Reich [phone] PCP - General Family Medicine 01/20/16 documented as of this encounter
--- OUTSIDE RECORDS SUMMARY | 2024-02-27 19:35 | XMS_ITS | Encounter Summary ---
Author Organization [facility] Address [facility] [place] [address] Care Team Providers Care Computer Methods Analyst Name Role Phone Dandy Driscoll APRN Primary Care Provider [phone] Encounter Details Date Type Department Care Team (Latest Contact Info) Description 01/30/2019 11:32 AM EDT - 01/30/2019 11:59 PM EDT Hospital Encounter XRay at [address] [place] [address] Patrick Dumont MD History of total hip replacement, left Discharge Disposition: Home Social History Tobacco Use [...] PM EST Office Visit [place] [address] Jordyn Francisco MD [facility] DR OBSTETRICS [place] [address] documented as of this encounter Procedures Procedure Name Priority Date/Time Associated Diagnosis Comments XR PELVIS AND HIP 2 VIEWS LEFT Routine 01/30/2019 11:42 AM EDT History of total hip replacement, left documented in this encounter Results * XR Pelvis and Hip 2 Views Left (01/30/2019 11:42 AM EDT) Anatomical Region Laterality Modality Pelvis, Hip Left Digital Radiogra phy Impressions 01/30/2019 2:32 PM EDT Left ENA in unchanged alignment and without evidence of loosening. Thank you for letting us participate in the care of this patient. For questions regarding this report, please contact the number below. ? Narrative 01/30/2019 2:32 PM EDT EXAMINATION: XR PELVIS AND HIP 2 VIEWS LEFT CLINICAL HISTORY: left ENA TECHNIQUE: A frontal radiograph of the pelvis was obtained, along with AP and frog-leg lateral views of the left hip. COMPARISON: 06/27/2018 FINDINGS: Left total hip arthroplasty in unchanged alignment. There is no evidence of hardware loosening. Stable appearance of the right hip, with moderately advanced narrowing. The sacroiliac joints are symmetric. At least moderate degenerative spondylosis of the lower lumbar spine. Procedure Note Karime Banerjee MD - 01/30/2019 EXAMINATION: XR PELVIS AND HIP 2 VIEWS LEFT CLINICAL HISTORY: left ENA TECHNIQUE: A frontal radiograph of the pelvis was obtained, along with AP andfrog-leg lateral views of the left hip. COMPARISON: 06/27/2018 FINDINGS: Left total hip arthroplasty in unchanged alignment. There is no evidenceof hardware loosening. Stable appearance of the right hip, with moderatelyadvanced narrowing. The sacroiliac joints are symmetric. At least moderatedegenerative spondylosis of the lower lumbar spine. IMPRESSION Left ENA in unchanged alignment and without evidence of loosening. Thank you for letting us participate in the care of this patient. Forquestions regarding this report, please contact the number below. Electronically signed by: Karime Banerjee [facility]([phone]), at 01/30/2019 2:32 PM Patrick Dumont MD IMG DX ORDERABLES documented in this encounter Visit Diagnoses Diagnosis History of total hip replacement, left documented in this encounter Care Teams Computer Methods Analyst Relationship Specialty Start Date End Date Dandy Driscoll APRN [address] [place] [address] [place] Reich [phone] PCP - General Family Medicine 01/20/16 documented as of this encounter
--- OUTSIDE RECORDS SUMMARY | 2024-02-27 19:35 | XMS_ITS | Encounter Summary ---
Author Organization [facility] [place] [address] Care Team Providers Care Spindle Plumber Name Role Phone Dandy Driscoll APRN Primary Care Provider Reason for Visit * Reason Comments Pre-op Exam 11/24/20 RIGHT ENA AN Encounter Details Date Type Department Care Team (Latest Contact Info) Description 11/05/2020 9:30 AM EDT Office Visit [place] [address] Jacky De Leon MD [facility] [place] [address] Preop examination; Primary osteoarthritis of right hip; Adult BMI 45.0-49.9 kg/sq m Social History Tobacco Use Types Packs/Day Years [...] Sign Reading Time Taken Comments Blood Pressure 130/62 11/05/2020 9:28 AM EDT Pulse 69 11/05/2020 9:28 AM EDT Temperature - - Respiratory Rate - - Oxygen Saturation 99% 11/05/2020 9:28 AM EDT Inhaled Oxygen Concentration - - Weight 112.5 kg (248 lb) 11/05/2020 9:28 AM EDT Height 157.5 cm (5' 2) 11/05/2020 9:28 AM EDT Body Mass Index 45.36 11/05/2020 9:28 AM EDT documented in this encounter Progress Notes * Jacky De Leon MD - 11/05/2020 9:30 AM EDT Images from the original note were not included. CC: Stacy Knight is a 67 y.o. female patient to the perioperative clinic with the following problems and medications that is being seen in the clinic for consultation at the request of her surgeon Dr. Patrick Dumont for preoperative risk stratification and management recommendations in anticipation of right hip arthroplasty for symptomatic OA. HPI - Pain - Location - right hip and groin, Quality - aching, Onset - gradual, Duration - several months, Intensity - moderate to severe, Aggravating factors - standing, walking, stepping, bending, Alleviating factors - NSAID, APAP, opiate, topical, rest, Associated - has had prior knee replacements and other ENA. Has a tooth ache, there was a cavity on it on recent Xrays but dentist deferred int ervention as she had no symptom at that time but now has the ache (more of a sensitivity). ?? Patient Active Problem List Diagnosis Code ??? Impaired renal function N28.9 ??? Tibial component revision L knee (11/11/2012, [place]) Z96.659 ??? History of total right knee replacement, R TKA performed in 2001 Z96.651 ??? Pain in left hip M25.552 ??? Primary osteoarthritis of left hip M16.12 ??? Morbid obesity with BMI of 40.0-44.9, adult E66.01, Z68.41 ??? 02/13/2018 S/P left total hip arthroplasty (Dr. Dumont) Z96.649 ??? Primary osteoarthritis of right hip M16.11 ??? calcium carbonate (Tums) 200 mg calcium (500 mg) Tablet, Chewable ??? meloxicam (MOBIC) 7.5 mg Tablet ??? traMADoL (Ultram) 50 mg Tablet ??? lisinopriL (Prinivil;Zestril) 10 mg Tablet ??? augmented betamethasone dipropionate (DIPROLENE-AF) 0.05 % Ointment ??? psyllium seed, with sugar, (METAMUCIL, SUGAR, ORAL) ??? loperamide (IMODIUM A-D) 2 mg Tablet ??? LACTOSE-REDUCED FOOD (NUTRITIONAL SUPPLEMENT ORAL) ??? Cranberry 1,000 mg Cap ??? Levalbuterol Tartrate (XOPENEX HFA) 45 mcg/actuation inhaler ??? fluticasone-salmeterol (ADVAIR) 500-50 mcg/dose diskus inhaler ??? cyclobenzaprine (FLEXERIL) 10 mg tablet ??? NYSTOP Powder ??? buPROPion (WELLBUTRIN XL) 150 mg Tablet Extended Release 24 hr Social History Main Topics ??? Smoking status: Former Smoker ? Packs/day: 0.00 ? Years: 0.50 ? Types: Cigarettes ? Quit date: 1979 ??? Smokeless tobacco: Never Used ??? Alcohol use No ??? Drug use: No ??? Sexual activity: Not on file ?? Family History Family History Problem Relation Age of Onset ??? Diabetes Father ? Diabetes Brother ? Thrombophilia Neg Hx ? Review of Systems: Review of Systems Constitutional: Negative for chills, diaphoresis and fever. HENT: Negative for mouth sores, nosebleeds, sore throat and trouble swallowing. Respiratory: Negative for apnea, cough, shortness of breath and wheezing.She has not needed her Advair in more than a year and she has not needed any rescue inhaler either. Cardiovascular: Negative for chest pain and palpitations. Does have chronic LLE swelling which is more noticeable lately. She notes no orthopnea or PND. She uses one pillow. Gastrointestinal: Negative for abdominal pain, anal bleeding and blood in stool. Has chronic diarrhea and takes 2 loperamide in morning and has 1-2 BMs despite that. She notes certain foods aggravatethat. Endocrine: Negative for polydipsia and polyphagia. Genitourinary: Negative for dysuria, flank pain and hematuria. Skin: Negative for pallor and rash. Allergic/Immunologic: Negative for environmental allergies and immunocompromised state. Neurological: Negative for tremors, syncope, speech difficulty and light- headedness. Did have fallsx2. Hematological: Negative for adenopathy. Does not bruise/bleed easily. Denies melena. Does note bruising of her forearms from her crutches. Psychiatric/Behavioral: Negative for confusion, decreased concentration and does note dysphoric mood with demise of her unexpectedly about 1.5 years ago, she has support from her taoist members and friends. She is not taking Wellbutrin on regular basis and defers to input from PCP when she has worsening depression. ?? Allergies: Allergies Allergen Reactions ??? Isopropyl Alcohol Rash ??? Meperidine Hcl Other (See Comments) ? Very Loopy ??? Penicillins Other (See Comments) ? SWELLS UP ??? Propoxyphene Hcl Itching ?? Physical Exam: Last Set of Vitals and Range over past 24 hours: ??Vital Signs Heart Rate: 69 BP: 130/62 Patient Position: Sitting SpO2: 99 % Estimated body mass index is 45.36 kg/m?? as calculated from the following: Height as of this encounter: 157.5 cm (5' 2). Weight as of this encounter: 112.5 kg (248 lb). ? Physical Exam Constitutional: She is oriented to person, place, and time. No distress. HENT: Head: Normocephalic and atraumatic. Eyes: Conjunctivae are normal. Right eye exhibits no discharge. Left eye exhibits no discharge. No scleral icterus. Neck: Neck supple. No JVD present. Cardiovascular: Normal rate, regular rhythm and normal heart sounds. Exam reveals no gallop and no friction rub. 2/6 apical holosystolic murmur heard. Pulmonary/Chest: Effort normal and breath sounds normal. No stridor. No respiratory distress. She has no wheezes. She has no rales. She exhibits no spinal tenderness. Abdominal: Soft. Bowel sounds are normal. There is no CVA tenderness. There is no rebound and no guarding. Musculoskeletal: She has right hip flexor with drift against gravity, she has moderate restriction in flexion and severe in IR and ER. There is shortened stride using crutches favoring this hip. She 1+ pitting pretibial edema on left and trace on right. Neurological: She is alert and oriented to person, place, and time. She displays no tremors and hasgood recall. Skin: Skin is warm and dry. She is not diaphoretic. No pallor. Psychiatric: She has a normal mood and affect. Her behavior is normal. Judgment and thought contentnormal. ?? Lab Results Component Value Date WBC 7.1 11/05/2020 HGB 12.9 11/05/2020 HCT 39.3 11/05/2020 MCV 97.5 (H) 11/05/2020 PLATELET 226 11/05/2020 Lab Results Component Value Date NA 143 11/05/2020 K 3.5 11/05/2020 CL 107 11/05/2020 CO2 27 11/05/2020 BUN 12 11/05/2020 CREATININE 0.59 (L) 11/05/2020 GLUCOSE 126 11/05/2020 CALCIUM 8.8 11/05/2020 ESTGFR 94 11/05/2020 ?? EKG (image reviewed): normal EKG, normal sinus rhythm. ?? Xray hip - severe DJD right hip ?? A/P 1. Preop examination ?? 2. Primary osteoarthritis of right hip ?? 3. Morbid obesity with BMI of 45.0-49.9, adult ? She finds the hip pain impairing her activity tolerance and elect to proceed with the ENA. Her BMI is lower compared to prior visit with me in 2018. She is seeing her PCP prior to surgery and will manage her chronic diarrhea and mood disorder as per her PCP. She is instructed to call her dentist and get an evaluation SETH. Major Risk Factor per the Revised Cardiac Risk Index (Bold if present) - There is no history of CAD, CHF, CVA or TIA, DM2 on insulin, or a Creatinine >2 Risk diagnosis for MACE (major adverse cardiovascular event = Myocardial infarction, pulmonary edema, ventricular fibrillation, primary cardiac arrest, or complete heart block.) : Low <1% . The patient describes a functional status of equal to 4METs (manages self and does home chores, [facility] [employer] [employer] but is needing help from the staff, is looking for help for heavy chores like mopping and vaccuming) and based on the ACC/AHA 2014 guideline no further cardiovascular testing is indicated. ARISCAT/CANET Score - estimates the risk of postoperative pulmonary complications as being low ~3.5%. ?? Per the ACS NSQIP calculator I estimated the following. Patient instructions: May take tramadol and loperamide the morning of surgery. Do NOT take lisinopril the morning of surgery. RECOMMENDATION for Postoperative Care: Hold lisinopril if SBP<120 Continue loperamide, tramadol s this patient a candidate for expedited recovery after total joint replacement no She has a RAPT of 5/12 and will need rehab stay - suggest inpatient admission. documented in this encounter Plan of Treatment Upcoming Encounters Date Type Department Care Team (Late st Contact Info) Description 03/04/2024 12:00 PM EST Office Visit Gyne[place] [address] Jordyn Francisco MD [facility] OBSTETRICS [place] [address] documented as of this encounter Visit Diagnoses Diagnosis Preop examination Preoperative examination, unspecified Primary osteoarthritis of right hip Primary localized osteoarthrosis, pelvic region and thigh Adult BMI 45.0-49.9 kg/sq m Body Mass Index 45.0-49.9, adult documented in this encounter Care Teams Spindle Plumber Relationship Specialty Start Date End Date Dandy Driscoll APRN [address] [place] [address] [place] [address] PCP - General Family Medicine 01/20/16 documented as of this encounter
--- OUTSIDE RECORDS SUMMARY | 2024-02-27 19:35 | XMS_ITS | Encounter Summary ---
Author Organization [facility] Address [facility] [place] [address] Care Team Providers Care Housecleaner Name Role Phone Dandy Driscoll APRN Primary Care Provider [phone] Reason for Visit * Auth/Cert Specialty Diagnoses [...] Expiration Date Visits Re quested Visits Authorized [id number] 1 1 Encounter Details Date Type Department Care Team (Late st Contact Info) Description 01/19/2021 2:53 PM EDT Anesthesia [place] [address] Jeremías Baldwin MD [facility] [place] [address] Mookie Healy MD [facility] [place] [address] Anesthesia Record Procedure Summary Procedure Name Responsible Anesthesiologist Anesthesia Start Time Anesthesia Stop Time TOTAL HIP ARTHROPLASTY, ANTERIOR APPROACH (WRVU 19.6) (Right: Hip) Jeremías Baldwin MD 01/19/21 1453 01/19/21 1724 Events Date Time Event Comment 01/19/2021 1357 1453 Start 1457 AN Verify 1457 An Start Data 1503 An Induction 1506 An Intubation 1509 Anesthesia Ready 1527 Procedure Start 1714 Extubation/LMA Out Patient t aking adequate tidal volumes (>300ml), respiratory rate regular (10-14). Opens eyes to command. Oropharynx suctioned, ETT removed, spontaneous ventilations maintained. 1718 an stop data 1723 Recovery or ICU Handoff April ent care was transferred to the destination unit staff after review of the patient's medical history, current anesthetic/surgical status and plan, according to the Provider Handoff Checklist. 1724 Stop Patient brought to recovery with 6L/min O2 via face mask. Spontaneous ventilations maintained. Patient opening eyes to voice, resting comfortably. Meds Name Total Midazolam 2 mg fentaNYL 125 mcg IV Lidocaine 100 mg Propofol 200 mg Rocuronium 60 mg PHENYLephrine 320 mcg Ondansetron 4 mg Dexamethasone 8 mg ceFAZolin (Ancef) 2 g in dextrose 5% 100 mL infusion 2 g tranexamic acid (Cyklokapron ) 1,688 mg in sodium chloride 0.9% 116.88 mL infusion 1,688 mg Propofol INF 555.39 mg Dexmedetomidine 20 mcg Sugammadex 400 mg Lactated Ringers 1,000 mL * Agents Name O2 Air N2O Sevoflurane (et) * Blood No blood administrations on file. Lines, Drains, and Airways Type Details Placement Removal Incision 01/19/21; Right, anterior; hip 01/19/21 0000 by Elle Womack RN Incision 11/11/12; knee; LDA not present upon assessment; 01/22/21; 1112 11/11/12 0000 by Pam Martines RN 01/22/21 1112 by Kendy Warren RN Incision 02/13/18; 1219; (hip ); LDA not present upon assessment; 01/22/21; 1112 02/13/18 1219 by Wojciech Allen RN 01/22/21 1112 by Kendy Warren, KATINA (RETIRED) Peripheral IV Line - Single Lumen 01/19/21; 1423; metacarpal vein (top of hand), right; [id number] catheter system; Anatomical Landmarks; 20 gauge; KERRY; distraction, intradermal injection, tolerated well, appears comfortable; removed per patient, site symptomatic, removed per policy/procedure, site care per policy/procedure, other (see comments); 01/22/21; 93901/19/21 1423 by Jamal Gross RN 01/22/21 0940 by Suri Polo RN ETT Mask Ventilation: Ea sy (1); ETT Type: Cuffed, Oral; ETT Size: 7 mm; Mac Blade: 3; Notes: Asleep, Pre-O2, Stylette; Attempts: 1; Laryngoscopy Grade: 1; ETT Placement Verified By: Auscultation, Capnometry; Secured at Teeth: 22 cm; Inserted by: Yfn Ruff CRNA; Removal Date: 01/19/21; Removal Time: 171301/19/21 1506 by Perla Ruff CRNA 01/19/21 171 by Perla Ruff CRNA documented in this encounter Social History Tobacco [...] OR Notes * Anesthesia Postprocedure Evaluation - Jeremías Baldwin MD - 01/20/2021 2:43 PM EDT Department of Anesthesiology Post-procedure Note Patient: Stacy Knight Procedure Summary Date: 01/19/21 Room / Location: [facility] OR [facility] MAIN OR Anesthesia Start: 145 Anesthesia Stop: 1723 Procedures: TOTAL HIP ARTHROPLASTY, ANTERIOR APPROACH (WRVU 20.72) (Right Hip) HIP INTRAOP RADIOLOGIC EXAMINATION, UNILATERAL, W PELVIS; 4+ VIEWS (WRVU 0.27) (Right ) MODIFIER CORAIL FEMORAL STEM DEPUY (N/A Hip) MODIFIER PINNACLE ACETABULUM DEPUY (N/A Hip) Diagnosis: Primary osteoarthritis of right hip (right hip OA) Surgeons: Patrick Dumont MD Responsible Provider: Jeremías Baldwin MD Anesthesia Type: general ASA Status: 3 All Anesthesia Providers: Anesthesiologist: Jeremías Baldwni MD FINANCIAL AID COORDINATOR: Perla Ruff CRNA Vitals Value Taken Time BP 111/67 01/19/21 1845 Temp 36.5 ??C (97.7 ??F) 01/19/21 1721 Pulse 61 01/19/21 1849 Resp 13 01/19/21 1849 SpO2 91 % 01/19/21 1849 Pain Level 2 01/19/21 1830 Vitals shown include unvalidated device data. Patient Location: PACU/[facility] Level of Consciousness: Awake and Alert Pain Management: Satisfactory Analgesia PONV: None Cardiovascular Status: Hemodynamically Stable Respiratory Status: Stable Respiratory Status Postoperative Fluid Status: Intravascular EUvolemia Possible Anesthetic Complications: NONE apparent at time of evaluation Final Primary Anesthesia Type: General (The anesthetic type performed was the same as planned.) Comments: * Anesthesia Preprocedure Evaluation - Jeremías Baldwin MD - 11/23/2020 3:31 PM EDT Images from the original note were not included. Pre-Anesthesia Evaluation for: Stacy Knight a 70 y.o. female. Procedure(s): TOTAL HIP ARTHROPLASTY, ANTERIOR APPROACH (WRVU 20.72) HIP INTRAOP RADIOLOGIC EXAMINATION, UNILATERAL, W PELVIS; 4+ VIEWS (WRVU 0.27) MODIFIER CORAIL FEMORAL STEM DEPUY MODIFIER PINNACLE ACETABULUM DEPUY Patient Active Problem List Diagnosis ??? Primary osteoarthritis of right hip ??? Morbid obesity with BMI of 40.0-44.9, adult Body mass index is 43.42 kg/m??. ??? 02/13/2018 S/P left total hip arthroplasty (Dr. Dumont) ??? Primary osteoarthritis of left hip ??? Pain in left hip ??? History of total right knee replacement, R TKA performed in 2001 ??? Tibial component revision L knee (11/11/2012, Bhavin) ??? Impaired renal function Past Medical History: Diagnosis Date ??? Asthma ??? Bowel disease ibs ??? Chronic pain right hip and knee pain ??? COPD (chronic obstructive pulmonary disease) ??? Gastroesophageal reflux rare use of TUMS ??? High blood pressure controlled with medication ??? Mental health problem depression ??? Transfusion history 1984 ??? Vertigo fell out of chair in past week or so Past Surgical History: Procedure Laterality Date ??? JOINT REPLACEMENT ??? PRG RADEX HIP UNILATERAL WITH PELVIS MINIMUM 4 VIEWS Left 02/13/2018 HIP INTRAOP RADIOLOGIC EXAMINATION, UNILATERAL, W PELVIS; 4+ VIEWS (WRVU 0.27) performed by Patrick Dumont MD at [facility] MAIN OR ??? PRO REVISE KNEE JOINT REPLACE, ALL PARTS 11/11/2012 @TOTAL KNEE REVISION ARTHROPLASTY, COMPLETE performed by Carlos Delcid MD at [facility] MAIN OR ??? PRO TOTAL HIP ARTHROPLASTY Left 02/13/2018 @TOTAL HIP ARTHROPLASTY, ANTERIOR APPROACH (WRVU 20.72) performed by Patrick Dumont MD at [facility] MAIN OR Social History Tobacco Use ??? Smoking status: Former Smoker Packs/day: 0.00 Years: 0.50 Pack years: 0.00 Types: Cigarettes Quit date: 1980 Years since quittin.6 ??? Smokeless tobacco: Never Used Substance Use Topics ??? Alcohol use: No [...] 4th+ generation cephalosporin. ??? Propoxyphene Hcl Itching Medications: MAR and/or home medications have been reviewed. Physical Exam: Preprocedure Vitals Current as of 11/23/20 1531 No BP, pulse, respiration, SpO2, or temperature recorded. Height: 157.5 cm (5' 2) (07/15/20) Weight: 112.5 kg (248 lb) (07/15/20) BMI: 45.35 IBW: 50.1 kg (110 lb 7.8 oz) Airway Assessment: Mallampati: II TM distance: >3 FB Neck ROM: full Cardiovascular Assessment: Rhythm: regular Pulmonary Assessment: unlabored breathing Dental Assessment: Misc Assessment: IV access: Peripheral line Last Filed Perioperative Cognitive Screening Value Time User AD8 Total Score: 0 11/05/2020 12:00 PM Asha Ponce RN AD8 Informant: Patient 11/05/2020 12:00 PM Asha Ponce RN CFS Frailty Score: 5 11/05/2020 12:00 PM Asha Ponce RN Anesthesia Plan: ASA 3 general, with a(n) intravenous induction 70 y.o. female scheduled for right total hip replacement. Medical History: - HTN on lisinopril - GERD - COPD on advair, albuterol inhaler - depression on bupropion - chronic pain on tramadol, cyclobenzaprine, & naproxen Surgical History: Anesthetic History: Allergies reviewed Labs reviewed EKG 10/2020: NSR NPO Status: appropriate Anesthetic Plan: GA with ETT Region - Other Informed Consent: Anesthetic plan and risks discussed with patient. Plan discussed with FINANCIAL AID COORDINATOR. Anesthesia Screening documented in this encounter Plan of Treatment Upcoming Encounters Date Type Department Care Team (Late st Contact Info) Description 03/04/2024 12:00 PM EST Office Visit [place] [address] Jordyn Francisco MD [facility] DR OBSTETRICS [place] [address] documented as of this encounter Visit Diagnoses Not on filedocumented in this encounter Administered Medications Inactive Administered Medications - up to 3 most recent administrations Medication Order MAR Action Action Date Dose Rate Site ceFAZolin (Ancef) 2 g in dextrose 5% 100 mL infusion 2 g, Intravenous, EVERY 3 HOURS, 1 dose, First dose on Sun01/19/21 at 1445, Administer over 30 Minutes, Redose after 3 hours., Intra-Operative (Intra-Procedure), Indication for (Active or Suspected): Prophylaxis Given 01/19/2021 3:07 PM EDT 2 g dexamethasone (Decadron) injection Intravenous, PRN, Starting on Sun01/19/21 at 1517, Until Sun01/19/21 at 1726, Anesthesia Intra-op, Routine Given 01/19/2021 3:17 PM EDT 8 mg dexmedetomidine (Precedex) (4 mcg/mL) bolus injection (Anesthsia) Intravenous, PRN, Starting on Sun01/19/21 at 1501, Until Sun01/19/21 at 1726, Anesthesia Intra-op, Routine Given 01/19/2021 3:01 PM EDT 20 mcg fentaNYL (pf) (50 mcg/mL) multi-dose injection Intravenous, PRN, Starting on Sun01/19/21 at 1523, Until Sun01/19/21 at 1726, Anesthesia Intra-op, Routine Given 01/19/2021 5:00 PM EDT 25 mcg Given 01/19/2021 3:50 PM EDT 50 mcg Given 01/19/2021 3:42 PM EDT 25 mcg lactated ringers infusion Intravenous, CONTINUOUS PRN, Starting on Sun01/19/21 at 1453, Until Sun01/19/21 at 1726, Anesthesia Intra-op New Bag 01/19/2021 4:45 PM EDT New Bag 01/19/2021 2:53 PM EDT lidocaine (pf) (Xylocaine) (20 mg/mL) 2% injection syringe Intravenous, PRN, Starting on Sun01/19/21 at 1502, Until Sun01/19/21 at 1726, Anesthesia Intra-op, Routine Given 01/19/2021 3:02 PM EDT 100 mg midazolam (pf) (Versed) (1 mg/mL) multi-dose injection Intravenous, PRN, Starting on Sun01/19/21 at 1453, Until Sun01/19/21 at 1726, Anesthesia Intra-op, Routine Given 01/19/2021 2:53 PM EDT 2 mg ondansetron (pf) (Zofran) (2 mg/mL) injection Intravenous, PRN, Starting on Sun01/19/21 at 1700, Until Sun01/19/21 at 1726, Anesthesia Intra-op, Routine Given 01/19/2021 5:00 PM EDT 4 mg PHENYLephrine in NS (PF) (ANALY-SYNEPHRINE) 0.8 mg/10 mL (80 mcg/mL) multi-dose injection Syrg Intravenous, PRN, Starting on Sun01/19/21 at 1519, Until Sun01/19/21 at 1726, Anesthesia Intra-op, Routine Given 01/19/2021 3:19 PM EDT 160 mcg Given 01/19/2021 3:10 PM EDT 160 mcg propofoL (Diprivan) 10 mg/mL bolus injection (Anesthesia) Intravenous, PRN, Starting on Sun01/19/21 at 1502, Until Sun01/19/21 at 1726, Anesthesia Intra-op Given 01/19/2021 3:03 PM EDT 200 mg propofoL (Diprivan) infusion Intravenous, CONTINUOUS PRN, Starting on Sun01/19/21 at 1522, Until Sun01/19/21 at 1726, Anesthesia Intra-op, Routine New Bag 01/19/2021 3:22 PM EDT 50 mcg/kg/min 32.67 mL/hr rocuronium (Zemuron) (10 mg/mL) multi-dose injection Intravenous, PRN, Starting on Sun01/19/21 at 1503, Until Sun01/19/21 at 1726, Anesthesia Intra-op, Routine Given 01/19/2021 3:03 PM EDT 60 mg sugammadex (Bridion) 100 mg/mL injection Intravenous, PRN, Starting on Sun01/19/21 at 1700, Until Sun01/19/21 at 1726, Anesthesia Intra-op, Routine Given 01/19/2021 5:00 PM EDT 400 mg tranexamic acid (Cyklokapron) 1,688 mg in sodium chloride 0.9% 116.88 mL infusion 1,688 mg (rounded from 1,687.5 mg = 15 mg/kg/dose ? 112.5 kg), Intravenous, ONCE, 1 dose, On Sun01/19/21 at 1500, Administer over 30 Minutes, Day of Surgery (Day of Procedure) New Bag 01/19/2021 3:13 PM EDT 1,688 mg documented in this encounter Care Teams Housecleaner Relationship Specialty Start Date End Date Dandy Driscoll APRN [address] [place] [address] [place] [address] PCP - General Family Medicine 01/20/16 documented as of this encounter
--- OUTSIDE RECORDS SUMMARY | 2024-02-27 19:35 | XMS_ITS | Encounter Summary ---
Author Organization [facility] [place] [address] Care Team Providers Care Caponizer Name Role Phone Yamila Dandy LANDEROS Primary Care Provider Encounter Details Date Type Department Care Team (Late st Contact Info) Description 05/27/2019 Orders Only [place] [address] Patrick Dumont MD Pain in right hip Social History Tobacco Use Types [...] PM EST Office Visit [place] [address] Jordyn Francisco MD [facility] DR OBSTETRICS [place] [address] documented as of this encounter Results * [...] Pain in joint, pelvic region and thigh Pain in right hip Pain in joint, pelvic region and thigh documented in this encounter Care Teams Caponizer Relationship Specialty Start Date End Date Dandy Driscoll APRN [address] [place] [address] [place] [phone] PCP - General Family Medicine 01/20/16 documented as of this encounter
--- OUTSIDE RECORDS SUMMARY | 2024-02-27 19:35 | XMS_ITS | Encounter Summary ---
[place] [address] Care Team Providers Care Supervisor Feed House Name Role Phone Dandy Driscoll APRN Primary Care Provider [phone] Encounter Details Date Type Department Care Team (Late st Contact Info) Description 07/16/2020 Telephone [place] [phone] Laurel Nagy RN Social History Tobacco Use Types Packs/Day [...] encounter Miscellaneous Notes * Telephone Encounter - Laurel Nagy RN - 07/16/2020 2:42 PM EDT Call placed to patients home number left message for patient that Aubrie RICHARDSON did send in a scriptfor meloxicam. However encouraged patient to use cautiously as her Medical record states she had previous issue with kidney disease. Patient to hydrate well when using this product and report any changes in urine function to her PCP. Laurel Nagy RN [facility] [place] * Telephone Encounter - Laurel Nagy RN - 07/16/2020 10:43 AM EDT Triage Note Subjective: Patient called in and requested a prescription for a prescription strength Nsaid such as Meloxicam Carter questions/Assessment: Symptom Onset: Hx osteoarthritis right hip, patient to be scheduled for surgery Location: Right Hip Duration: chronic Characteristic: Constant discomfort at Right hip. Aggravating Factors: Needs hip replacement. Relieving Factors: Patient is taking advil, tylenol and now tramadol twice per day. Recent tramadolscript per Patrick Dumont Patient worried about getting addicted to tramadol. And even with taking it twice per day and her advil tylenol regimen she still has discomfort. Patients brother suggested MeloxicamRX ? Plan: Update Aubrie Koehler to determine if she would like to prescribe meloxicam RX. Which would need to be sent to [facility]. Patient/Responsible libertarian voices an understanding of advice? yes Patient/Responsible libertarian intends to comply with action/disposition: yes Laurel Nagy RN [facility] [place] documented in this encounter Plan of Treatment Upcoming Encounters Date Type Department Care Team (Late st Contact Info) Description 03/04/2024 12:00 PM EST Office Visit [place] [address] Jordyn Francisco MD [facility] [place]ST[place] [address] documented as of this encounter Visit Diagnoses Not on filedocumented in this encounter Care Teams Supervisor Feed House Relationship Specialty Start Date End Date Dandy Driscoll APRN [address] [place] [address] [place] [phone] PCP - General Family Medicine 01/20/16 documented as of this encounter
--- OUTSIDE RECORDS SUMMARY | 2024-02-27 19:35 | XMS_ITS | Encounter Summary ---
[place] [address] Care Team Providers Care Loss Prevention Guard Name Role Phone Dandy Driscoll APRN Primary Care Provider [phone] Reason for Visit * Reason Onset Date Comments Pre Procedure Call 06/10/2019 Encounter Details Date Type Department Care Team (Late st Contact Info) Description 06/10/2019 Telephone [place] [address] Patrick Dumont MD Pre Procedure Call Social History Tobacco Use Types Packs/Day Years [...] encounter Miscellaneous Notes * Telephone Encounter - Nannette Sarabia - 06/10/2019 2:26 PM EST We called to leave a message to schedule surgery with Dr dumont, but phone just rings. documented in this encounter Plan of Treatment Upcoming Encounters Date Type Department Care Team (Late Contact Info) Description 03/04/2024 12:00 PM EST Office Visit Gy[place] [address] Jordyn Francisco MD [facility] [place] [address] documented as of this encounter Visit Diagnoses Not on filedocumented in this encounter Care Teams Loss Prevention Guard Relationship Specialty Start Date End Date Dandy Driscoll APRN [address] [place] [address] [place] [phone] PCP - General Family Medicine 01/20/16 documented as of this encounter
--- OUTSIDE RECORDS SUMMARY | 2024-02-27 19:35 | XMS_ITS | Encounter Summary ---
Author Organization [facility] [place] [address] Care Team Providers Care Adjunct Philosophy Faculty Name Role Phone Dandy Driscoll APRN Primary Care Provider [phone] Encounter Details Date Type Department Care Team (Late st Contact Info) Description 07/16/2020 Orders [place] [phone] Awilda Vidal PA [facility] [place] [address] Primary osteoarthritis of right hip (Primary Dx) Social History Tobacco Use Types [...] PM EST Office Visit [place] [phone] Jordyn Francisco MD [facility] OBSTETRICS [place] [address] documented as of this encounter Visit Diagnoses Diagnosis Primary osteoarthritis of right hip- Primary Primary localized osteoarthrosis, pelvic region and thigh documented in this encounter Care Teams Adjunct Philosophy Faculty Relationship Specialty Start Date End Date Dandy Driscoll APRN [address] [place] [address] [place] [phone] PCP - General Family Medicine 01/20/16 documented as of this encounter
--- OUTSIDE RECORDS SUMMARY | 2024-02-27 19:35 | XMS_ITS | Encounter Summary ---
[place] [address] Care Team Providers Care Travel Coordinator Name Role Phone Dandy Driscoll APRN Primary Care Provider [phone] Reason for Visit * Auth/Cert Specialty Diagnoses [...] Expiration Date Visits Re quested Visits Authorized [id number] 1 1 Encounter Details Date Type Department Care Team (Late st Contact Info) Description 01/19/2021 2:50 PM EDT - 01/19/2021 5:35 PM EDT [place] [id number] Patrick Dumont MD TOTAL HIP ARTHROPLASTY, ANTERIOR APPROACH (WRVU 19.6) Social History Tobacco Use Types Packs/Day Years [...] Sign Reading Time Taken Comments Blood Pressure 172/85 01/19/2021 5:30 PM EDT Pulse 72 01/19/2021 5:30 PM EDT Temperature 36.5 ??C (97.7 ??F) 01/19/2021 5:21 PM ED T Respiratory Rate 16 01/19/2021 5:30 PM EDT Oxygen Saturation 100% 01/19/2021 5:30 PM EDT Inhaled Oxygen Concentration - - Weight 108.9 kg (240 lb) 01/19/2021 1:36 PM EDT Height 157.5 cm (5' 2) 01/19/2021 1:36 PM EDT Body Mass Index 43.9 01/19/2021 1:36 PM EDT documented in this encounter Discharge Summaries * Mckayla Pruitt P, SENIOR NETWORK SECURITY ENGINEER - 01/24/2021 6:52 AM EDT Discharge Summary Patient Name: Stacy Knight Patient Age: 70 y.o. Language: Georgian Race: White Ethnicity: Not nor Admit date: 01/19/2021 Discharge date and time: 01/26/2021 Attending Physician: Patrick Dumont MD Discharge Physician: Patrick Dumont MD Follow-up Recommendations for Providers: See discharge instructions for additional details. Future Appointments Date Time Provider Department Center 02/17/2021 12:45 PM [facility] DX ROOM 2 Xray [facility] Rad 02/17/2021 1:40 PM Patrick Dumont MD [facility] 3[facility] Inpatient Provider Contact Information: Patrick Dumont MD Orthopedics: [phone] After hours and weekends, call [facility] Rn Utilization Management Um, , and have the Orthopedic resident paged. [...] 176 214 Last 3 Lytes Recent Labs 01/22/215 01/21/21 0326 01/20/21 0453 NA 141 143 137 K 4.5 4.5 5.0 CL 107 108* 103 CO2 29 27 26 BUN 21* 27* 16 CREATININE 0.51* 0.90 0.68* Last Ca, Mg, Phos Recent Labs 01/22/21 0445 CALCIUM 8.3* Studies: XR Fluoro No Rad [...] controlled on oral medications. Discharge to: Rehab [facility] [address] [place] [address] Updated Allergies/ADRs: Allergies Allergen Reactions ??? Adhesive [...] bowel movement. You can also take an ymlu-uss-mqoypzf medication, Miralax if needed to combat constipation. [...] as much as possible. Call your doctor ([phone]) if you develop: 1. Fever greater than 100.5 2. Severe nausea or vomiting 3. Increasing pain that is not controlled by pain medications 4. Increasing redness, swelling, or drainage from incisions 5. Change in sensation FOLLOW-UP APPOINTMENTS: 1. You will have follow-up appointments at [facility] as indicated below in Future Appointment and Orders. 2. You will need to have x-rays prior to your follow-up appointment on 02/17/21. Please come to Radiology, desk , 1 hour BEFORE that appointment for these x-rays. Future Appointments Date Time Provider Department Center 02/17/2021 12:45 PM [facility] DX ROOM 2 MH Xray [facility] Rad 02/17/2021 1:40 PM Patrick Dumont MD [facility] ORTH [address] [place] [address] If you have questions or concerns: Sunday through Sunday, 8 AM - 5 PM, please call Dr. Patrick Dumont MD's office at . If it is after 5 PM, the weekend, or holidays, please call and ask to speak with [facility]. General Instructions None Future Appointments and Orders Future Appointments and Orders Future Appointments Provider Department Dept Phone 02/17/2021 12:45 PM [facility] DX ROOM 2 XRay at [facility] Arrive at: Order Picker Area [phone] Please go to Order Picker Area ([place] Location). 02/17/2021 1:40 PM Patrick Dumont MD Orthopaedics at [facility] Arrive at: Order Picker Area [phone] Primary Care Provider: Dandy Driscoll APRN [phone] Discharge References/Attachments None documented in this encounter [...] bowel movement. You can also take an goqh-tlq-uoievcg medication, Miralax if needed to combat constipation. [...] Some patients have an additional item called Prinruby on their skin. If you have this [...] as much as possible. Call your doctor ([phone]) if you develop: 1. Fever greater than 100.5 2. Severe nausea or vomiting 3. Increasing pain that is not controlled by pain medications 4. Increasing redness, swelling, or drainage from incisions 5. Change in sensation FOLLOW-UP APPOINTMENTS: 1. You will have follow-up appointments at [facility] as indicated below in Future Appointment and Orders. 2. You will need to have x-rays prior to your follow-up appointment on 02/17/21. Please come to Radiology, desk 3T, 1 hour BEFORE that appointment for these x-rays. Future Appointments Date Time Provider Department Center 02/17/2021 12:45 PM [facility] DX ROOM 2 MH Xray [facility] Rad 02/17/2021 1:40 PM Patrick Dumont MD [facility]TH [address] [place] [address] If you have questions or concerns: Sunday [...] Time Provider Department Center 02/17/2021 12:45 PM [facility] DX ROOM 2 MH Xray [facility] Rad 02/17/2021 1:40 PM Patrick Dumont MD [facility]TH [address] [place] [address] * Jalyn Betancur - 01/26/2021 8:09 AM EDT Office of Care Management/Psychology Technician Patient Name: Stacy Knight : 1950 Patient has been offered a snf bed at [facility] arranged for a 1630 transport. Ambulance will need: Medicare ambulance form completed and signed (MD or Draw Frame Operator RN/SPRAY STAINER) Copy of patient demographics [place] Out of Hospital DNR/DNI order, if active No MD to MD report necessary Please call Nursing Report to [phone], ask for coal pulverizing operator. Info to accompany patient: Copies of Medication Administration Records and IV sheets for past 10 days. Plan: Psychology Technician will be available to the patient and Draw Frame Operator-RN and/or Social Workerfor further assistance. Patient will be discharged to: [facility] [address] [place] [address] Lenore Cummings * Sriram Vanessa RN - [...] assist with ADL's Surveillance [continuous indirect monitoring]: Olimpia, Purposeful Rounding, Nurse Knowledge Exchange Patient-specific fall prevention interventions for sensory deficits provided, if applicable: n/a CPG GOAL OUTCOME EVALUATION: * Reggie Cha - 01/25/2021 8:06 AM EDT Technology Support Analyst Encounter Note Patient Name: Stacy Knight : [id number] MR#: [id number] Admit Date: 01/19/2021 1:20 PM Hospital Day 0 days Narrative: Visited to introduce and assess acceptance of Technology Support Analyst services. Pt was not available as medical [...] PT/OT Dispo:Per PT/OT Follow-up: as scheduled below Nkios Gomes MD 01/25/2021 Future Appointments Date Time Provider Department Center 02/17/2021 12:45 PM [facility] DX ROOM 2 MH Xray [facility] Rad 02/17/2021 1:40 PM Patrick Dumont MD [facility] [address] [place] [address] * Ricardo Albright, OT - 01/24/2021 3:43 PM EDT Occupational Therapy Treatment Note Treatment Number OT: 3 Patient Dx: Stacy canas??70 y.o.??y/o female??admitted on 01/19/2021??by Dr. Patrick Dumont MD?for R??anterior ENA. Social History: Patient lives??alone. Home Setup:??Patient is able to live on one level with one step with rail. ??Patient uses a walk inshower at a confucianism for showering. DME:??cane,??raised toilet seat,??deputy clerk of court, long handled sponge, forearm crutches Baseline ADL/Mobility:??Patient reports she is able to dress and sponge bathe independently. ??Patient uses confucianism shower and her friend assists with supervision [...] unable to place shoe on foot with deputy clerk of court/long handled shoe horn and became discouraged doing [...] till able to drive and return to confucianism shower. ?? Functional Mobility:Patient mobilizing with PT [...] Minutes, Occupational Therapy: 33 (ADL training) Pager: [phone] RICARDO ALBRIGHT OT 01/24/2021 Occupational Therapy Rehabilitation [...] Time Provider Department Center 02/17/2021 12:45 PM [facility] DX ROOM 2 MH Xray [facility] Rad 02/17/2021 1:40 PM Patrick Dumont MD [facility] * Josefa Patricio, PT - 01/24/2021 12:05 [...] 0.27) performed by Patrick Dumont MD at [facility] MAIN OR ??? PRG RADEX HIP UNILATERAL WITH PELVIS MINIMUM 4 VIEWS Right 01/19/2021 ?? HIP INTRAOP RADIOLOGIC EXAMINATION, UNILATERAL, W PELVIS; 4+ VIEWS (WRVU 0.27) performed by Patrick Dumont MD at [facility] MAIN OR ??? PRO REVISE KNEE JOINT REPLACE, ALL PARTS ?? 11/11/2012 ?? @TOTAL KNEE REVISION ARTHROPLASTY, COMPLETE performed by Carlos Delcid MD at [facility] OR ??? PRO TOTAL HIP ARTHROPLASTY Left 02/13/2018 ?? @TOTAL HIP ARTHROPLASTY, ANTERIOR APPROACH (WRVU 20.72) performed by Patrick Dumont MD at [facility] OR ??? PRO TOTAL HIP ARTHROPLASTY Right 01/19/2021 ?? TOTAL HIP ARTHROPLASTY, ANTERIOR APPROACH (WRVU 20.72) performed by Patrick Dumont MD at [facility] OR ? Social History:??Pt lives alone??in [place] managing on one level in her home. Reports there isone step into house (but uneven and big). Pt has a comfort height toilet btu sponge bathes only at home and takes a shower at her confucianism in a shower stall every 2-[address] and did so up until surgery. Pt has trouble managing hygiene in private area, has incontinence and wears pull ups ?Her brother lives in [place], did give her a ride to [facility]. Pt plans to ask him if she [...] [facility] and have recommended a recliner. There is the possibility that he could lend her a recliner and set it up in her home and then she could return directly to home w/ comprehensive VNA services Discharge Recommendations: Based on the current findings,??Anticipated Discharge Disposition (PT): inpatient rehabilitation facility, intermediate facility vs home after recliner from brother [...] functional activities, home management JOSEFA PATRICIO PT Pager:[phone] Physical Therapy Inpatient Rehabilitation Department * Elena [...] PT/OT Dispo:Per PT/OT Follow-up: as scheduled below júnior Hammond MD 01/23/2021 Future Appointments Date Time Provider Department Center 02/17/2021 12:45 PM [facility] DX ROOM 2 MH Xray [facility] Rad 02/17/2021 1:40 PM Patrick Dumont MD [facility] * Yvon Jones, RN - 01/23/2021 2:37 AM EDT Problem: [...] 3:20 PM EDT OFFICE OF CARE MANAGEMENT Draw Frame Operator Note Chintan RICHARDSON requested RNCM to speak with patient regarding discharge plan. RNCM spoke with patient by phone, she sounded weepy. She states the hospital bed is too high and she is unable to tie her shoes, nursing and PA made aware. She was made aware of bed status, RNCM madeher aware [facility] is following, and facility will follow up with RNCM on Sunday, patient states if a bed is offered she would accept it. Primary Insurance: [employer] MANAGED MEDICARE Secondary Insurance: N/A Current referrals in place: RNCM communicated to facilities in [facility]. [facility] [address] [place] [id number] RNCM updated facility in [facility]. [facility] Address: [address] [place] [id number] [place] [address] RNCM updated facility in [facility]. [facility] [address] [place] [address] ??Declined - no bed available - RNCM requested facility continue to follow. [facility] [address] [place], [place] [id number] Declined - closed to admissions[place] [address] [address] [place] [address] (tel: [phone]; Facility interested in patient, facility to follow up on Sunday??with RNCM. [facility] [address] [place], [place] [id number] RNCM updated facility in [facility] Discharge plan: rehab when bed is offered Transportation: brother Barriers Limited bed availability Plan going forward: A member of the Care Management team will continue to monitor progress, follow for continuity of care and assist with transition of care planning. Silvina Toscano DEVELOPER [employer] Draw Frame Operator Pgr. [phone] * Kendy Warren RN - [...] PT/OT Dispo:Per PT/OT Follow-up: as scheduled below eJnny Mcfarland MD 01/22/2021 Future Appointments Date Time Provider Department Center 02/17/2021 12:45 PM [facility] DX ROOM 2 Xray [facility] Rad 02/17/2021 1:40 PM Patrick Dumont MD [facility] * Yvon Jones RN - 01/22/2021 4:16 [...] Boyd RN - 01/21/2021 6:11 PM EDT [facility] Short Stay Unit Transfer to Inpatient Note [...] 0.27) performed by Patrick Dumont MD at [facility] OR ??? PRG RADEX HIP UNILATERAL WITH PELVIS MINIMUM 4 VIEWS Right 01/19/2021 ?? HIP INTRAOP RADIOLOGIC EXAMINATION, UNILATERAL, W PELVIS; 4+ VIEWS (WRVU 0.27) performed by Patrick Dumont MD at [facility] OR ??? PRO REVISE KNEE JOINT REPLACE, ALL PARTS ?? 11/11/2012 ?? @TOTAL KNEE REVISION ARTHROPLASTY, COMPLETE performed by Carlos Delcid MD at [facility] OR ??? PRO TOTAL HIP ARTHROPLASTY Left 02/13/2018 ?? @TOTAL HIP ARTHROPLASTY, ANTERIOR APPROACH (WRVU 20.72) performed by Patrick Dumont MD at [facility] OR ??? PRO TOTAL HIP ARTHROPLASTY Right 01/19/2021 ?? TOTAL HIP ARTHROPLASTY, ANTERIOR APPROACH (WRVU 20.72) performed by Patrick Dumont MD at [facility] OR ? Social History: Pt lives alone in [place] managing on one level in her home. Reports there is one step into house (but uneven and big). Pt has a comfort height toilet btu sponge bathes only at home and takes a shower at her confucianism in a shower stall every 2-[address] and did so up until surgery. Pt has trouble managing hygiene in private area, has incontinence and wears pull ups Her brother lives in [place], did give her a ride to [facility]. Pt plans to ask him if she [...] Anticipated Discharge Disposition (PT): inpatient rehabilitation facility, intermediate facility vs home to brother's and home [...] PT needs arise. Time IN / OUT: 9186-6642 Total Minutes, Physical Therapy: 40 Billing Code: functional activities, therex, home management JOSEFA PATRICIO, GAURAV Pager: [phone] Physical Therapy Inpatient Rehabilitation Department * Karen Cheng RN - 01/21/2021 1:19 PM EDT This author met with patient at the bedside and discussed expanding inpatient rehabilitation facility search. Informed that there is no bed availability in the facilities the referrals originally were sent to. Patient is in the agreement to expand the search to: [place] [address] [facility] Address: [address] [place] [address] RS please send referrals with all supporting [...] uses a walk in shower at a confucianism for showering. DME: cane, raised toilet seat, deputy clerk of court, long handled sponge, forearm crutches Baseline ADL/Mobility: Patient reports she is able to dress and sponge bathe independently. Patientuses confucianism shower and her friend assists with supervision [...] laces. Patient able to don pants with deputy clerk of court SBA. Patient dressing UB independently sitting in [...] Therapy: 41 (10:03 to 10:43 TF) Pager: [phone] RICARDO ALBRIGHT, OT 01/21/2021 Occupational Therapy Rehabilitation [...] Time Provider Department Center 02/17/2021 12:45 PM [facility] DX ROOM 2 MH Xray [facility] Rad 02/17/2021 1:40 PM Patrick Dumont MD [facility] * Asha Shipley RN - 01/21/2021 5:12 [...] discharge lounge [] Discharge teaching complete [x] supervisor diagnostic / equipment needed * Asha Shipley, KATINA [...] discharge lounge [] Discharge teaching complete [x] supervisor diagnostic / equipment needed * Josefa Patricio, PT - 01/20/2021 3:22 PM EDTSummary: PT/OT [...] 0.27) performed by Patrick Dumont MD at [facility] MAIN OR ??? PRG RADEX HIP UNILATERAL WITH PELVIS MINIMUM 4 VIEWS Right 01/19/2021 HIP INTRAOP RADIOLOGIC EXAMINATION, UNILATERAL, W PELVIS; 4+ VIEWS (WRVU 0.27) performed by Patrick Dumont MD at [facility] MAIN OR ??? PRO REVISE KNEE JOINT REPLACE, ALL PARTS 11/11/2012 @TOTAL KNEE REVISION ARTHROPLASTY, COMPLETE performed by Carlos Delcid MD at [facility] MAIN OR ??? PRO TOTAL HIP ARTHROPLASTY Left 02/13/2018 @TOTAL HIP ARTHROPLASTY, ANTERIOR APPROACH (WRVU 20.72) performed by Patrick Dumont MD at [facility] OR ??? PRO TOTAL HIP ARTHROPLASTY Right 01/19/2021 TOTAL HIP ARTHROPLASTY, ANTERIOR APPROACH (WRVU 20.72) performed by Patrick Dumont MD at [facility] Social History: Pt lives alone in [place] managing on one level in her home. Reports there is one step into house (but uneven and big). Pt has a comfort height toilet btu sponge bathes only at home and takes a shower at her confucianism in a shower stall every 2-[address] and did so up until surgery. Pt has trouble managing hygiene in private area, has incontinence and wears pull ups Her brother lives in [place], did give her a ride to [facility]. Pt plans to ask him if she [...] understands that she will benefit from ongoing in-reception clerk rehab with RNCM to place referrals to same. Discharge Recommendations: Based on the current findings, Anticipated Discharge Disposition (PT): inpatient rehabilitation facility, intermediate facility when medically ready for hospital discharge. [...] and home management JOSEFA PATRICIO, PT Pager: [phone] Physical Therapy Inpatient Rehabilitation Department Time IN / OUT: 2 visits 1245- [phone]. [phone] 90 mins, mod eval, therex, functional activities, home management 2017 PT Evaluation Code Rationale: ?? Diagnosis & [...] discharge planning needs. I have provided the [facility], Office of Care Management letter from the Windows And Doors Installer pertaining to rehab referrals. I have also provided a letter describing our affiliations within the [facility] and educatedthem about their right to choose where referrals are. ?? Provided patient with [facility] Star Quality Rating for SNF, LTAC and/or [...] The patient have requested referrals to: 1. [facility] [address] [place] [address] ? 2. [facility]) [address] [place] [address] ?? [phone] ?? [place] [address] [place] [address] ?? (tel: [phone]; ?? 4.[facility] [address] [place] [address] ? Expected date of discharge: 01/21/2021 Note routed to Psychology Technician who will communicate referrals to facilities [...] 0.27) performed by Patrick Dumont MD at [facility] MAIN OR ??? PRG RADEX HIP UNILATERAL WITH PELVIS MINIMUM 4 VIEWS Right 01/19/2021 HIP INTRAOP RADIOLOGIC EXAMINATION, UNILATERAL, W PELVIS; 4+ VIEWS (WRVU 0.27) performed by Patrick Dumont MD at [facility] MAIN OR ??? PRO REVISE KNEE JOINT REPLACE, ALL PARTS 11/11/2012 @TOTAL KNEE REVISION ARTHROPLASTY, COMPLETE performed by Carlos Delcid MD at [facility] MAIN OR ??? PRO TOTAL HIP ARTHROPLASTY Left 02/13/2018 @TOTAL HIP ARTHROPLASTY, ANTERIOR APPROACH (WRVU 20.72) performed by Patrick Dumont MD at [facility] MAIN OR ??? PRO TOTAL HIP ARTHROPLASTY Right 01/19/2021 TOTAL HIP ARTHROPLASTY, ANTERIOR APPROACH (WRVU 20.72) performed by Patrick Dumont MD at [facility] Social History: Patient lives alone. Home Setup: Patient is able to live on one level with one step with rail. Patient uses a walk in shower at a confucianism for showering. DME: cane, raised toilet seat, deputy clerk of court, long handled sponge, forearm crutches Baseline ADL/Mobility: Patient reports she is able to dress and sponge bathe independently. Patientuses confucianism shower and her friend assists with supervision [...] safety Vision & Perception: ?? corrective lenses break out worker Communication: WFL Range of motion, strength, coordination: Hand dominance: right Bilateral UEs are within functional limitations LE limitations: R THS Sensation: Intact Activities of Daily Living: Self-feeding: Independent after set-up Dressing: Patient able to use deputy clerk of court to don pants CTG A for stand-hike. [...] and measurable assessment of functional outcome. Pager: [phone] RICARDO ALBRIGHT OT 01/20/2021 Occupational Therapy Rehabilitation [...] Time Provider Department Center 02/17/2021 12:45 PM [facility] DX ROOM 2 Xray [facility] Rad 02/17/2021 1:40 PM Patrick Dumont MD [facility] * Ace Peng RN - 01/20/2021 2:09 [...] Time Provider Department Center 02/17/2021 12:45 PM [facility] DX ROOM 2 MH Xray [facility] Rad 02/17/2021 1:40 PM Patrick Dumont MD [facility] * Shantell French RN - 01/19/2021 5:52 [...] managed at present Awaiting transfer to 011 2030: Report called to Andrae AMBRIZ 2049: transfer [...] AM EDT Report called to Anny at [facility]. Reviewed medications, patient history, and clinical stay, [...] Transition of Care Plan for discharge is: intermediate Agency Referrals: [facility] [address] Patient accepted bed offer, insurance authorization [...] n/a Patient is insured through: Primary Insurance: [facility] MANAGED MEDICARE Payor: [employer] MANAGED MEDICARE / Plan: [facility] COMPLETE / Product Type: *No Producttype* / Secondary Insurance: N/A Prescription Coverage: Yes Preferred Pharmacy: [facility] [address] [place] [phone] [id number] AT [facility] & [address] [phone] This plan was formulated with input from patient and team. All are in agreement with plan. Due to current public health concerns, I have verbally reviewed Medicare Discharge Rights with patient. Patient verbalizes understanding of right to appeal this discharge if feeling not medically ready. Karen Cheng RN Case Grid Caster of Care Management Pager: [phone] * Plan of Care - Selin Mejias [...] crutches) Patient is insured through: Primary Insurance: [facility] MANAGED MEDICARE Payor: [facility] MANAGED MEDICARE / Plan: [facility] COMPLETE / Product Type: *No Producttype* / Secondary Insurance: N/A Prescription Coverage: Yes [facility] [address] [place] [address] [address] [address] [employer] [id number] [place] [address] [facility] [address] [place] [phone] Last Physical Therapy Recommendation: inpatient rehabilitation facility, [...] discharge is: Patient has been accepted at [facility] pending authorization. Pt will require updated [...] VSS on RA. Pt c/o up to 3 pain this shift, pain well controlled with prn Toradol and scheduled tylenol. Pt up to bathroom SBA w/ crutches. Pt resting in between care. Scheduled meds given, see JUN. Pt resting in bed, safety maintained. PLAN MOVING FORWARD: d/c planning INDIVIDUALIZED FALL PREVENTION INTERVENTIONS: Patient-specific fall risk factors per assessment: [current deficits]: Gen weakness, IV access Assistance [level of assistance required for transfers and ambulation]: SBA w/ crutches Supervision [direct monitoring required during toileting and ADLs]: Eyes on Surveillance [continuous indirect monitoring]: [place] Patient-specific fall prevention interventions for sensory deficits [...] call back rec'd rec'd call back from culinary intern, kailey Gamez, who will come have conversation with pt as to risks associated with leaving piv out. * Plan of Care - Poppy John RN - 01/20/2021 3:15 PM EDT OUTCOME [...] COVID test: Lab Results Component Value Date [id number] Not Detected 01/19/2021 Past medical History: Past [...] Knight would be surrogate decision maker per [place] surrogate decision making law. (Only good for 180 days) Any patient receiving care at [facility] must abide by [place] law. The hierarchy for surrogate decision making [...] (i) The agent with financial power of deputy county attorney or a conservator appointed in accordance with [...] seat, [place] crutches) Home Address confirmed as: [facility] [facility] [address] Social & Family Supports: All names listed below confirmed with patient as current and correct Extended Emergency Contact Information Primary Emergency Contact: Harshad Knight Address: [address] [place] [address] Relation: Sibling Current Care Provided by: self [...] Pertinent/Service Specific Information: Health/Prescription Coverage: Primary Insurance: [facility] MANAGED MEDICARE Payor: [facility] MANAGED MEDICARE / Plan: [facility] COM[facility]TE / Product Type: *No Producttype* / Secondary Insurance: N/A Prescription Coverage: Yes [facility] [address] [place] [id number] [id number] [place] [address] [facility] [address] [address] Status: Patient is a : No Primary Care Provider: Dandy Driscoll APRN [phone] Patient/Caregiver Goals of Treatment: recovery ost procedure and return home. Potential Needs for Transition of Care: intermediate Agency Referrals: referrals placed. Transportation: no concerns Transportation Anticipated: family or friend will provide Concerns to be Addressed: discharge planning Assessment: Patient is s/p Right Total Hip Arthroplasty, will benefit from inpatient rehabilitationstay, however may progress towards home discharge, referrals placed, will need insurance authorization with [facility] MANAGED MEDICARE COMPLETE. Plan: A member of the Care Management team will continue to monitor progress, follow for continuity of care and assist with transition of care planning. Karen Cheng RN, [facility] Nurse Draw Frame Operator Pager [phone] * Op Note - Patrick Dumont MD - 01/19/2021 3:27 PM EDT [facility] Operative Note Patient Name: Stacy Knight : [id number] MR#: [id number] Case Date: 01/19/2021 Surgeon: Surgeon(s) and Role: [...] PM EST Office Visit [place] [address] Jordyn Francisco MD [facility] OBSTETRICS AND [place] [address] documented as of this encounter Procedures Procedure Name Priority Date/Time Associated Diagnosis Comments RAPID COVID-19 PCR ([facility]/APD/NLH) Routine 01/24/2021 2:26 PM EDT HEMOGRAM Routine [...] osteoarthritis of right hip RAPID COVID-19 PCR ([facility]/APD/[facility]H) Routine 01/19/2021 2:52 PM EDT TOTAL HIP ARTHROPLASTY, ANTERIOR APPROACH Routine 01/19/2021 1:25 PM EDT Primary osteoarthritis of right hip HIP INTRAOP RADIOLOGIC EXAMINATION, UNILATERAL, W PELVIS; 4+ VIEWS Routine 01/19/2021 1:25 PM EDT Primary osteoarthritis of right hip IMPLANTABLE DEVICES SCAN 01/19/2021 12:00 AM EDT documented in this encounter Results * COVID-19 PCR (01/24/2021 2:26 PM EDT) Pathologist [facility] SARS-CoV-2 RNA (Rapid) Not Detected Not Detected [facility] Comment: This result should be interpreted [...] using the Simplexa COVID-19 Direct Assay by cafegive as authorized by the FDA issued Emergency [...] Department of Pathology and Laboratory Medicine at [facility], certified under the Clinical Laboratory Improvement Amendments [...] fact sheets at the following FDA website: https://www.fda.gov/medical-devices/pcjgklgdeve-gyszqra-9963-vudjq-57-bgjdzpqge- use-a iizdyplohjlcc-taphtwn-insggvu/mpnqq-ecvskldulob-pbjj SARS-CoV-2 Source [employer] Swab [facility] Nasopharyngeal Swab 01/25/20 2:26 PM EDT 01/24/2021 3:19 PM EDT Comment:Symptoms->Surveillan ce Narrative Resulting Agency Comment Spec In Lab Emperatriz Mendoza APRN MICROBIOLOGY - GE NERAL ORDERABLES [facility] [place] [address] * (ABNORMAL) Differential, Automated (01/22/2021 4:45 AM EDT) Neutrophil % 65.7 % [facility] Neutrophil Absolute 6.01 1.70 - 6.10 x10(3)/mc L [facility] Lymph % 24.4 % [facility] Lymphocytes Abs 2.2 0.9 - 3.2 x10(3)/mc L [facility] Monocyte % 8.8 % [facility] Monocyte Abs 0.8 0.3 - 0.9 x10(3)/[facility] Eos % 0.4 % [facility] Eosinophils Abs 0.0 0.0 - 0.4 x10(3)/[facility] Basophil % 0.2 % [facility] Baso Absolute 0.0 0.0 - 0.1 x10(3)/[facility] Immature Gran % 0.50 % [facility] Comment: Immature granulocytes(IG's)percentage and absolute count will include metamyelocytes, myelocytes, and promyelocytes. Blood smears from CBCs yielding IG's will be scanned manually for concordance. If this scan disagrees with the automated IG or if promyelocytes are noted, a manual differential will be performed. Immature Gran Absolute 0.05(H) 0.00 - 0.04 x10(3)/[facility] Blood 01/22/2021 4:45 AM EDT 01/22/2021 5:00 AM EDT Narrative Resulting Agency Comment Spec In Lab Nikos Gomes MD HEMATOLOGY ORDERABLE S [facility] [place] [address] * (ABNORMAL) Hemogram (01/22/2021 4:45 AM EDT) White Blood Cell 9.2 4.0 - 9.5 x10(3)/[facility] Red Blood Cell 3.06(L) 4.00 - 5.21 x10(6)/[facility] Hemoglobin 9.9(L) 11.7 - 15.5 g/dL [facility] Hematocrit 30.3(L) 35.7 - 45.8 % [facility] Mean Cell Volume 99.0(H) 82.6 - 94.4 fL [facility] Mean Cell Hemoglobin 32.4(H) 27.1 - 32.0 pg [facility] Mean Cell Hemoglobin Concentration 32.7 31.7 - 35.0 g/dL [facility] Platelet 187 145 - 357 x10(3)/mc L [facility] RDW Standard Deviation 52.1(H) 37.0 - 46.0 fL [facility] RDW coefficient of variation 14.3(H) 11.5 - 14.1 % [facility] Mean Platelet Volume 12.2 7.6 - 12.9 fL [facility] NRBC% auto 0.0 % [facility] NRBC Absolute 0.000 0.000 - 0.000 x10(3)/mc L [facility] Blood 01/22/2021 4:45 AM EDT 01/22/2021 5:00 AM EDT Narrative Resulting Agency Comment Spec In Lab Nikos Gomes MD HEMATOLOGY ORDERABLE S [facility] [place] [address] * (ABNORMAL) Basic Metabolic Panel (non-fasting) (01/22/2021 4:45 AM EDT) Glucose 136 65 - 199 mg/dL [facility] Comment:Diabetes: >=200 mg/d L plus symptoms Blood Urea Nitrogen 21(H) 8 - 18 mg/dL [facility] Creatinine 0.51(L) 0.70 - 1.20 mg/dL [facility] Sodium 141 135 - 145 mmol/L [facility] Potassium 4.5 3.5 - 5.0 mmol/L [facility] Comment: Please note: ??Patients with WBC >100,000 may have falsely elevated Potassium levels. ??For accurate Potassium quantification in these patients send serum separator tube (gold top) for subsequent determinations. ??Contact the Clinical Chemistry Laboratory if there are any questions. Chloride 107 98 - 107 mmol/L [facility] Carbon Dioxide 29 22 - 31 mmol/L [facility] Anion Gap 5 5 - 15 mmol/L [facility] Calcium 8.3(L) 8.5 - 10.5 mg/dL [facility] Est Glomerular Filtration Rate 98 >=60 mL/min/1. 73 m?? [facility] Comment: This patient? s estimated glomerular [...] In Lab Patrick Dumont MD CHEMISTRY ORDERABLES [facility] [place] [address] * (ABNORMAL) Differential, Automated (01/21/2021 3:26 AM EDT) Neutrophil % 83.7 % [facility] Neutrophil Absolute 11.56(H) 1.70 - 6.10 x10(3)/mc L [facility] Lymph % 6.3 % [facility] Lymphocytes Abs 0.9 0.9 - 3.2 x10(3)/mc L [facility] Monocyte % 9.3 % [facility] Monocyte Abs 1.3(H) 0.3 - 0.9 x10(3)/mc L [facility] Eos % 0.0 % [facility] Eosinophils Abs 0.0 0.0 - 0.4 x10(3)/mc L [facility] Basophil % 0.1 % [facility] Baso Absolute 0.0 0.0 - 0.1 x10(3)/[facility] Immature Gran % 0.60 % [facility] Comment: Immature granulocytes(IG's)percentage and absolute count will include metamyelocytes, myelocytes, and promyelocytes. Blood smears from CBCs yielding IG's will be scanned manually for concordance. If this scan disagrees with the automated IG or if promyelocytes are noted, a manual differential will be performed. Immature Gran Absolute 0.08(H) 0.00 - 0.04 x10(3)/[facility] Blood 01/21/2021 3:26 AM EDT 01/21/2021 3:50 AM EDT Narrative Resulting Agency Comment Spec In Lab Nikos Gomes MD HEMATOLOGY ORDERABLE S Performing Organization Address City/State/[facility] Co de Phone Number [facility] [place] [address] * (ABNORMAL) Hemogram (01/21/2021 3:26 AM EDT) White Blood Cell 13.8(H) 4.0 - 9.5 x10(3)/[facility] Red Blood Cell 3.08(L) 4.00 - 5.21 x10(6)/[facility] Hemoglobin 9.9(L) 11.7 - 15.5 g/dL [facility] Hematocrit 30.2(L) 35.7 - 45.8 % [facility] Mean Cell Volume 98.1(H) 82.6 - 94.4 fL [facility] Mean Cell Hemoglobin 32.1(H) 27.1 - 32.0 pg [facility] Mean Cell Hemoglobin Concentration 32.8 31.7 - 35.0 g/dL [facility] Platelet 176 145 - 357 x10(3)/[facility] RDW Standard Deviation 50.3(H) 37.0 - 46.0 fL [facility] RDW coefficient of variation 13.9 11.5 - 14.1 % [facility] Mean Platelet Volume 12.4 7.6 - 12.9 fL [facility] NRBC% auto 0.0 % [facility] NRBC Absolute 0.000 0.000 - 0.000 x10(3)/mc L [facility] Blood 01/21/2021 3:26 AM EDT 01/21/2021 3:50 AM EDT Narrative Resulting Agency Comment Spec In Lab Nikos Gomes MD HEMATOLOGY ORDERABLE S [facility] [place] [address] * (ABNORMAL) Basic Metabolic Panel (non-fasting) (01/21/2021 3:26 AM EDT) Glucose 194 65 - 199 mg/dL [facility] Comment:Diabetes: >=200 mg/d L plus symptoms Blood Urea Nitrogen 27(H) 8 - 18 mg/dL [facility] Comment:result rechecked-abeba Creatinine 0.90 0.70 - 1.20 mg/dL [facility] Sodium 143 135 - 145 mmol/L [facility] Potassium 4.5 3.5 - 5.0 mmol/L [facility] Comment: Please note: ??Patients with WBC >100,000 may have falsely elevated Potassium levels. ??For accurate Potassium quantification in these patients send serum separator tube (gold top) for subsequent determinations. ??Contact the Clinical Chemistry Laboratory if there are any questions. Chloride 108(H) 98 - 107 mmol/L [facility] Carbon Dioxide 27 22 - 31 mmol/L [facility] Anion Gap 8 5 - 15 mmol/L [facility] Calcium 8.6 8.5 - 10.5 mg/dL [facility] Est Glomerular Filtration Rate 65 >=60 mL/min/1. 73 m?? [facility] Comment: This patient? s estimated glomerular [...] In Lab Patrick Dumont MD CHEMISTRY ORDERABLES [facility] [place] [address] * (ABNORMAL) Differential, Automated (01/20/2021 4:53 AM EDT) Neutrophil % 91.9 % [facility] Neutrophil Absolute 12.87(H) 1.70 - 6.10 x10(3)/mc L [facility] Lymph % 4.1 % [facility] Lymphocytes Abs 0.6(L) 0.9 - 3.2 x10(3)/mc L [facility] Monocyte % 3.5 % [facility] Monocyte Abs 0.5 0.3 - 0.9 x10(3)/mc L [facility] Eos % 0.0 % [facility] Eosinophils Abs 0.0 0.0 - 0.4 x10(3)/mc L [facility] Basophil % 0.1 % [facility] Baso Absolute 0.0 0.0 - 0.1 x10(3)/mc L [facility] Immature Gran % 0.40 % [facility] Comment: Immature granulocytes(IG's)percentage and absolute count will include metamyelocytes, myelocytes, and promyelocytes. Blood smears from CBCs yielding IG's will be scanned manually for concordance. If this scan disagrees with the automated IG or if promyelocytes are noted, a manual differential will be performed. Immature Gran Absolute 0.05(H) 0.00 - 0.04 x10(3)/mc L [facility] Blood 01/20/2021 4:53 AM EDT 01/20/2021 5:18 AM EDT Narrative Resulting Agency Comment Spec In Lab Nikos Gomes MD HEMATOLOGY ORDERABLE S [facility] [place] [address] * (ABNORMAL) Hemogram (01/20/2021 4:53 AM EDT) White Blood Cell 14.0(H) 4.0 - 9.5 x10(3)/mc L [facility] Red Blood Cell 3.61(L) 4.00 - 5.21 x10(6)/mc L [facility] Hemoglobin 11.4(L) 11.7 - 15.5 g/dL [facility] Hematocrit 34.7(L) 35.7 - 45.8 % [facility] Mean Cell Volume 96.1(H) 82.6 - 94.4 fL [facility] Mean Cell Hemoglobin 31.6 27.1 - 32.0 pg [facility] Mean Cell Hemoglobin Concentration 32.9 31.7 - 35.0 g/dL [facility] Platelet 214 145 - 357 x10(3)/mc L [facility] RDW Standard Deviation 48.7(H) 37.0 - 46.0 fL [facility] RDW coefficient of variation 13.6 11.5 - 14.1 % [facility] Mean Platelet Volume 11.9 7.6 - 12.9 fL [facility] NRBC% auto 0.0 % [facility] NRBC Absolute 0.000 0.000 - 0.000 x10(3)/mc L [facility] Blood 01/20/2021 4:53 AM EDT 01/20/2021 5:18 AM EDT Narrative Resulting Agency Comment Spec In Lab Nikos Gomes MD HEMATOLOGY ORDERABLE S [facility] [place] [address] * (ABNORMAL) Basic Metabolic Panel (non-fasting) (01/20/2021 4:53 AM EDT) Glucose 167 65 - 199 mg/dL [facility] Comment:Diabetes: >=200 mg/d L plus symptoms Blood Urea Nitrogen 16 8 - 18 mg/dL [facility] Creatinine 0.68(L) 0.70 - 1.20 mg/dL [facility] Sodium 137 135 - 145 mmol/L [facility] Potassium 5.0 3.5 - 5.0 mmol/L [facility] Comment: Please note: ??Patients with WBC >100,000 may have falsely elevated Potassium levels. ??For accurate Potassium quantification in these patients send serum separator tube (gold top) for subsequent determinations. ??Contact the Clinical Chemistry Laboratory if there are any questions. Chloride 103 98 - 107 mmol/L [facility] Carbon Dioxide 26 22 - 31 mmol/L [facility] Anion Gap 8 5 - 15 mmol/L [facility] Calcium 8.5 8.5 - 10.5 mg/dL [facility] Est Glomerular Filtration Rate 89 >=60 mL/min/1. 73 m?? [facility] Comment: This patient? s estimated glomerular [...] In Lab Patrick Dumont MD CHEMISTRY ORDERABLES [facility] [place] [address] * XR Fluoro No Rad <1Hr - OR Use (01/19/2021 4:42 PM EDT) Narrative Dicom, Auditing User - 01/19/2021 4:44 PM EDT This exam is auto-finalizing. No interpretation was done. Patrick Dumont MD IMG FLUORO ORDERABLE S * Surgical Pathology Report (01/19/2021 3:39 PM EDT) Final Diagnosis [id number] ? Location: [facility]; [facility]; The signing pathologist has (i) examined the relevant preparation(s) for the specimen(s) and (ii) rendered or confirmed the diagnosis(es). . ?Surgical Pathology DIAGNOSIS A - Right femoral head, osteoarthritis. Gross surgical pathology examination. Electronically signed by: ?Wayne Amador MD Verified: ??01/21/2021 18:58 ??Dermatopatholog ist, Bone & Soft Tissue Pathologist Performed at: ??-[facility] Dept. of Pathology, [place], [place] SPECIMEN(S) SUBMITTED A - right femoral [...] diagnosis only ??ajw 01/21/2021 6:58 PM EDT [facility] BONE STRUCTURE / Unknown 01/19/2021 3:39 PM EDT 01/19/2021 3:39 PM EDT Patrick Dumont MD PATHOLOGY/CYTOLOGY O NELLY Performing Organization Address [facility] de Phone Number [facility] [place] [address] * Specimen to Pathology (01/19/2021 3:39 PM EDT) AP Specimen 01/19/2021 3:39 PM EDT 01/19/2021 3:39 PM EDT Narrative [facility] - 01/19/2021 3:39 PM EDT Specimen requisition ordered. ??Separate Pathology report to follow Patrick Dumont MD PATHOLOGY/CYTOLOGY O NELLY Performing Organization Address [facility] de Phone Number [facility] [place] [address] * COVID-19 PCR (01/19/2021 2:52 PM EDT) SARS-CoV-2 RNA (Rapid) Not Detected Not Detected [facility] Comment: This result should be interpreted [...] using the Simplexa COVID-19 Direct Assay by cafegive as authorized by the FDA issued Emergency [...] Department of Pathology and Laboratory Medicine at [facility], certified under the Clinical Laboratory Improvement Amendments [...] fact sheets at the following FDA website: https://www.fda.gov/medical-devices/cmvvsumgfha-azweyxb-4104-qqllz-27-zzafvjrxk- use-a hfqqwraroxcso-vwuanjt-fqeqekd/prkqe-innqorhrjot-kmgu SARS-CoV-2 Source [employer] Swab [place] [facility] Nasopharyngeal Swab 01/20/20 2:52 PM EDT 01/19/2021 4:38 PM EDT Comment:Symptoms->Surveillan ce Narrative Resulting Agency Comment Spec In Lab Patrick Dumont MD MICROBIOLOGY - GENER AL ORDERABLES [facility] [place] [address] * SCAN DOC: IMPLANTABLE DEVICES (01/19/2021 12:00 AM EDT) Unknown MEDIA MGR SCAN EXT O RDR/RSLT documented in this encounter Visit Diagnoses Diagnosis Primary osteoarthritis of right hip Primary localized osteoarthrosis, pelvic region and thigh Primary osteoarthritis of right hip Primary localized osteoarthrosis, pelvic region and thigh documented in this encounter Admitting Diagnoses Diagnosis [...] Given 01/25/2021 8:12 AM EDT 81 mg BUpivacaine (pf) (Marcaine) (2.5 mg/mL) 0.25% injection ONCE PRN, Starting on Sun01/19/21 at 1541, Until Sun01/26/21 at 1742, Intra-Operative (Intra-Procedure), Routine Given 01/19/2021 3:41 PM EDT 50 mLs 19- Surgical Site buPROPion XL (Wellbutrin XL) tablet 150 mg [...] on Sun01/19/21 at 1815, Last dose on Effie 01/20/21 at 1015, Administer over 30 Minutes, Adjust [...] Given 01/19/2021 2:26 PM EDT 400 mg cloNIDine (pf) (Duraclon) (100 mcg/mL) Epidural injection ONCE PRN, Starting on Sun01/19/21 at 1541, Until Sun01/26/21 at 1742, Intra-Operative (Intra-Procedure), Routine Given 01/19/2021 3:41 PM EDT 50 mcg 19- Surgical Site dexamethasone (Decadron) tablet 4 mg 4 mg, [...] at 2100, Until Discontinued, Routine Given 01/25/2021 8:43 PM EDT 300 mg Given 01/24/2021 10:03 PM EDT 300 mg Given 01/23/2021 9:06 PM EDT 300 mg gabapentin (Neurontin) capsule 600 mg 600 mg, Oral, NIGHTLY, 2 doses, First dose on Sun01/19/21 at 2215, Last dose on Sun01/20/21 at 2100, Routine Given 01/20/2021 8:25 PM [...] Given 01/19/2021 5:43 PM EDT 0.4 mg ketorolac (Toradol) (30 mg/mL) injection ONCE PRN, Starting on Sun01/19/21 at 1541, Until Sun01/26/21 at 1742, Intra-Operative (Intra-Procedure), Routine Given 01/19/2021 3:41 PM EDT 30 mg 19- Surgical Site labetaloL (Normodyne) (5 mg/mL) injection solution 10-20 [...] Until Discontinued Given 01/26/2021 11:22 AM EDT 18,000 Units Given 01/26/2021 9:01 AM EDT 18,000 [...] 20 mg, Oral, DAILY, First dose on Effie 01/20/21 at 0900, Until Discontinued, DO NOT CRUSH OR OPEN Given 01/26/2021 9:00 AM EDT 20 mg Given 01/25/2021 8:12 AM EDT 20 mg Given 01/24/2021 8:17 AM EDT 20 mg povidone-iodine (Betadine Ophthalmic Prep) 5 % ophthalmic solution ONCE PRN, Starting on Sun01/19/21 at 1541, Until Sun01/26/21 at 1742, Intra-Operative (Intra-Procedure), Routine Given 01/19/2021 3:41 PM EDT 30 mLs 19- Surgical Site sodium chloride 0.9 % (flush) (BD PosiFlush [...] Kandice Jack LPN)2235 (Given - Provider: Sriram Vanessa RN) 0655 (Given - Provider: Sriram Vanessa RN)1306 (Given - Provider: Janette Schaefer RN) aspirin EC tablet 81 mg 81 mg, Oral, 2 TIMES DAILY, First dose on Sun01/20/21 at 0900, Until Discontinued, Routine 0818 (Given - Provider: Selin Mejias RN)2202 (Given - Provider: Imelda Best RN) 08 (Given - Provider: Selin Mejias RN)2042 (Given - Provider: Sriram Vanessa, KATINA) 0900 (Given - Provider: Janette Schaefer, KATINA) buPROPion XL (Wellbutrin XL) tablet 150 mg 150 mg, Oral, DAILY, First dose on Sun01/20/21 at 0900, Until Discontinued, DO NOT CRUSH OR OPEN, Routine 0818 (Given - Provider: Selin Mejias RN) 0812 (Given - Provider: Selin Mejias RN) 0900 (Given - Provider: Janette Schaefer, KATINA) gabapentin (Neurontin) capsule 300 mg(Linked Group 1) 300 mg, Oral, NIGHTLY, First dose on Sun01/21/21 at 2100, Until Discontinued, Routine 220 (Given - Provider: Imelda Best RN) 2042 (Given - Provider: Sriram Vanessa RN) Lactase Tab 18,000 Units 18,000 Units (2 tablet), Oral, 3 TIMES DAILY WITH MEALS, First dose on Sun01/22/21 at 1345, Until Discontinued 0820 (Given - Provider: Selin Mejias RN)1107 (Given - Provider: Radha Price LPN)1624 (Given - Provider: Awilda Garcia, KATINA) 0813 (Given - Provider: Selin Mejias RN)1223 (Given - Provider: Selin Mejias, KATINA)1638 (Given - Provider: Selin Mejias RN) 0901 [...] dose on Sun01/23/21 at 1300, Until Discontinued 0821 (Given - Provider: Selin Mejias RN)2206 (Given - Provider: Imelda Best, KATINA) 0815 (Given - Provider: Selin Mejias RN)2043 (Given - Provider: Sriram Vanessa, KATINA) 0901 (Given - Provider: Janette Schaefer, KATINA) pantoprazole EC (Protonix) tablet 20 mg 20 mg, Oral, DAILY, First dose on Effie [...] Routine 0900 (Not Given - Provider: Selin Mjeias RN - Reason: Patient/family refused)2100 (Not Given [...] 2100, Until Discontinued, Recovery (Recovery-Hospital Unit), Routine 0820 (Given - Provider: Selin Mejias RN)220 (Given - Provider: Imelda Best, KATINA) 0813 (Given - Provider: Selin Mejias RN)204 (Given - Provider: Sriram Vanessa RN) 0909 (Given - Provider: Janette Schaefer, KATINA) PRN Medication Order 01/24/2021 01/25/2021 01/26/2021 bisacodyL [...] mg/day., Routine 0822 (Given - Provider: Selin Mejias RN) 0812 (Given - Provider: Selin Mejias RN)1226 (Given - Provider: Selin Mejias RN) 0909 (Given - Provider: Janette Schaefer RN) traMADoL (Ultram) tablet 25-50 mg 25-50 mg, Oral, EVERY 6 HOURS PRN, Starting on Sun01/19/21 at 1747, Until Sun01/26/21 at 1742, Pain, For mild pain (1-3) give 25 mg. For moderate to severe pain (4-10) give 50 mg., Routine 0952 (Given - Provider: Selin Mejias RN)1638 (Given - Provider: Awilda Garcia RN)2305 (Given - Provider: Imelda Best RN) 1637 (Given - Provider: Selin Mejias, KATINA)6431 (Given - Provider: Sriram Vanessa, KATINA) Linked [...] Routine documented in this encounter Care Teams Travel Coordinator Relationship Specialty Start Date End Date Dandy Driscoll APRN [address] [place] [address] [place] [phone] PCP - General Family Medicine 01/20/16 documented as of this encounter
--- OUTSIDE RECORDS SUMMARY | 2024-02-27 19:35 | XMS_ITS | Encounter Summary ---
Author Organization [facility] Address [facility] [place] [address] Care Team Providers Care Conche Operator Name Role Phone Dandy Driscoll APRN Primary Care Provider [phone] Encounter Details Date Type Department Care Team (Latest Contact Info) Description 06/27/2018 3:15 PM EDT - 06/27/2018 11:59 PM EDT Hospital Encounter XRay at [address] [place] [address] Patrick Dumont MD H/O total hip arthroplasty, left; Right hip pain Discharge Disposition: Home Social History [...] Sig Dispensed Refills Start Date End Date psyllium seed, with sugar, (METAMUCIL, SUGAR, ORAL) Take 1 Scoop by mouth 2 times daily as needed (constipation). buPROPion (WELLBUTRIN XL) 150 mg Tablet Extended Release 24 hr 300 mg daily. 12 11/13/2016 Cranberry 1,000 mg Cap Take by mouth 2 times daily. levalbuteroL (XOPENEX HFA) 45 mcg/actuation HFA Aerosol Inhaler Inhale 2 puffs into the lungs every 4 hours as needed. omeprazole (PRILOSEC) 20 mg Capsule, Delayed Release(E.C.) [...] 24 hours 12/04/2023 LACTOSE-REDUCED FOOD (NUTRITIONAL SUPPLEMENT ORAL)Indications:Min d over matter Brain Formula Take by mouth. Indications: Mind over matter Brain Formula 01/26/2021 DIETARY SUPPLEMENT ORALIndications:Carb Blcoker; White Kidney Marquez Take by mouth. Indications: Carb Blcoker; White Kidney Marquez 11/05/2020 DIETARY SUPPLEMENT ORALIndications:Phyt oplankton blend Take by mouth. Indications: Phytoplankton blend 11/05/2020 naproxen (NAPROSYN) 250 mg tablet Take 250 mg by mouth 2 times daily (with meals). 11/05/2020 verapamil (CALAN-SR) 240 mg CR tablet Take 240 mg by mouth nightly. 11/05/2020 fluticasone-salmeter ol (ADVAIR) 500-50 mcg/dose diskus inhaler Inhale 1 puff into the lungs 2 times daily. 05/08/2023 cyclobenzaprine (FLEXERIL) 10 mg tablet Take 5 mg by mouth 3 times daily as needed. documented as of this encounter Plan of Treatment Upcoming Encounters Date Type Department Care Team (Late st Contact Info) Description 03/04/2024 12:00 PM EST Office Visit [place] [phone] Jordyn Francisco MD [facility] OBSTETRICS [place] [address] documented as of this encounter Procedures Procedure Name Priority Date/Time Associated Diagnosis Comments XR PELVIS AND HIP 2 VIEWS BILATERAL Routine 06/27/2018 3:45 PM EDT H/O total hip arthroplasty, left Right hip pain documented in this encounter Results * XR Pelvis w AP & Lat Hip Bilat (06/27/2018 3:45 PM EDT) Anatomical Region Laterality Modality Pelvis, Hip Bilateral Digital Radiogra phy Impressions 06/27/2018 4:47 PM EDT 1. ??No evidence of complication following left total hip arthroplasty. 2. ??Unchanged osteoarthropathy of the right hip. 3. ??No acute osseous findings. Thank you for letting us participate in the care of this patient. For questions regarding this report, please contact the number below. ? Electronically signed by: ELVI VILLANUEVA [facility] ([phone]), at 06/27/2018 4:47 PM Narrative 06/27/2018 4:47 PM EDT EXAMINATION: XR PELVIS W AP AND LAT HIP BILAT CLINICAL HISTORY: Right hip pain & L ENA 02/13/18 TECHNIQUE: AP pelvis, 2 views of each hip COMPARISON: Pelvic radiograph 03/07/2018 FINDINGS: Patient is status post left total hip arthroplasty with cerclage wire placement. No periprosthetic fracture or lucency. There is unchanged osteoarthropathy of the right hip characterized by superior joint space narrowing with subchondral sclerosis. No fracture or dislocation. No widening of the pubic symphysis or SI joints. There is mild subchondral sclerosis seen in the SI joints bilaterally. Degenerative changes are present in the lower lumbar spine. Procedure Note Vicenta Kruse MD - 06/27/2018 EXAMINATION: XR PELVIS W AP AND LAT HIP BILAT CLINICAL HISTORY: Right hip pain & L ENA 02/13/18 TECHNIQUE: AP pelvis, 2 views of each hip COMPARISON: Pelvic radiograph 03/07/2018 FINDINGS: Patient is status post left total hip arthroplasty with cerclage wireplacement. No periprosthetic fracture or lucency. There is unchanged osteoarthropathyof the right hip characterized by superior joint space narrowing withsubchondral sclerosis. No fracture or dislocation. No widening of the pubic symphysisor SI joints. There is mild subchondral sclerosis seen in the SI jointsbilaterally. Degenerative changes are present in the lower lumbar spine. IMPRESSION 1. No evidence of complication following left total hip arthroplasty. 2. Unchanged osteoarthropathy of the right hip. 3. No acute osseous findings. Thank you for letting us participate in the care of this patient. Forquestions regarding this report, please contact the number below. Patrick Dumont MD IMG DX ORDERABLES documented in this encounter Visit Diagnoses Diagnosis H/O total hip arthroplasty, left Right hip pain Pain in joint, pelvic region and thigh documented in this encounter Care Teams Conche Operator Relationship Specialty Start Date End Date Dandy Driscoll APRN [address] [place] [address] SHELLI Reich [phone] PCP - General Family Medicine 01/20/16 documented as of this encounter
--- OUTSIDE RECORDS SUMMARY | 2024-02-27 19:35 | XMS_ITS | Encounter Summary ---
[place] [address] Care Team Providers Care Nutritionist Public Health Name Role Phone Dandy Driscoll APRN Primary Care Provider [phone] Reason for Visit * Reason Onset Date Comments Questions 01/03/2021 Encounter Details Date Type Department Care Team (Late st Contact Info) Description 01/03/2021 Telephone [place] [phone] Julia Vallecillo Questions Social History Tobacco Use Types Packs/Day [...] encounter Miscellaneous Notes * Telephone Encounter - Lori Ochoa - 01/03/2021 11:58 AM EDT Called PCP office and confirmed that they are requesting last office note and preop form. I have faxed both of these to their office this morning. I called patient and left message on answering machine with this information. * Telephone Encounter - Julia Vallecillo - 01/03/2021 10:27 AM EDT Patient calling stating she needs orders from Orthopaedics placed to her PCP to get her physical done before her surgery on 01/19/[address] Dumont. Please call patient back @ [phone] Can leave detailed message if she does not answer. documented in this encounter Plan of Treatment Upcoming Encounters Date Type Department Care Team (Late st Contact Info) Description 03/04/2024 12:00 PM EST Office Visit [place] [address] Jordyn Francisco MD [facility] OBSTETRICS [place] [address] documented as of this encounter Visit Diagnoses Not on filedocumented in this encounter Care Teams Nutritionist Public Health Relationship Specialty Start Date End Date Dandy Driscoll APRN [address] [place] [address] SHE[place] Reich [phone] PCP - General Family Medicine 01/20/16 documented as of this encounter
--- OUTSIDE RECORDS SUMMARY | 2024-02-27 19:35 | XMS_ITS | Encounter Summary ---
[place] [address] Care Team Providers Care Kiln Maintenance Name Role Phone Dandy Driscoll APRN Primary Care Provider [phone] Reason for Visit * Reason Onset Date Comments Pre Procedure Call 11/24/2020 Encounter Details Date Type Department Care Team (Late st Contact Info) Description 11/24/2020 Telephone [place] [address] Patrick Dumont MD Pre Procedure [...] encounter Miscellaneous Notes * Telephone Encounter - Asha Epperson - 11/24/2020 9:39 AM EDT Called patient and left a message for her to call us back as she had called last night after hours to cancel her surgery with Dr. Dumont today. Left our direct number. documented in this encounter Plan of Treatment Upcoming Encounters Date Type Department Care Team (Late st Contact Info) Description 03/04/2024 12:00 PM EST Office Visit [place] [address] Jordyn Francisco MD [facility] OBSTETRICS [place] [address] documented as of this encounter Visit Diagnoses Not on filedocumented in this encounter Care Teams Kiln Maintenance Relationship Specialty Start Date End Date Dandy Driscoll APRN [address] [place] [address] [place] [phone] PCP - General Family Medicine 01/20/16 documented as of this encounter
--- OUTSIDE RECORDS SUMMARY | 2024-02-27 19:35 | XMS_ITS | Encounter Summary ---
Author Organization [facility] [place] [address] Care Team Providers Care Metal Hanging Helper Name Role Phone Dandy Driscoll APRN Primary Care Provider [phone] Reason for Visit * Reason Comments Follow Up Surgery right hip ain discus s surgery - hx of left ENA DOS 02/13/18 Julia * Consultation (Routine) - Closed Specialty Diagnoses / Procedures Referred By Tiffanie foster Referred To Contact Orthopaedics Diagnoses chronic right hip pain Dandy Driscoll APRN [address] [place] [address] [place] [address] Patrick Dumont MD [facility] [place] [address] Referral ID Status Reason Start Date Expiration Date V isits Requested Visits Authorized [id number] Closed Consult, Test & Treat 05/07/2018 05/07/2019 1 1 Encounter Details Date Type Department Care Team (Late st Contact Info) Description 06/27/2018 4:00 PM EDT Office [place] [address] Patrick Dumont MD Status post total replacement [...] Sign Reading Time Taken Comments Blood Pressure 137/67 06/27/2018 4:05 PM EDT Pulse 89 06/27/2018 4:05 PM EDT Temperature - - Respiratory Rate - - Oxygen Saturation - - Inhaled Oxygen Concentration - - Weight 109.1 kg (240 lb 9.6 oz) 06/27/2018 4:05 PM EDT measured Height 157.5 cm (5' 2) 06/27/2018 4:05 PM EDT v erbal Body Mass Index 44.01 06/27/2018 4:05 PM EDT documented in this encounter Progress Notes * Patrick Dumont MD - 06/27/2018 4:00 PM EDT History of present illness: Patient is a 68-year-old female who is status post left total hip Hamzah plasty by myself with good benefit. Her postop course was comp gated by wound complications. She presents today to discuss potential right total hip Hamzah plasty. At this point patient has no history of right hip pain. She does have reviewing findings of right hip arthritis. She comes today to dis cuss whether she should undergo right total hip arthroplasty. Exam: Sitting in no apparent distress Patient walks without an antalgic gait. Examination of the right hip shows no tenderness of the greater trochanter. Hip flexion well past 90 degrees without significant discomfort. Internal/external rotation although limited is without significant discomfort. Her distal neurovascular is grossly intact. AP pelvis 2 views of the right hip were reviewed today which show well aligned uncemented left total hip arthroplasty without signs of loosening, subsidence or fracture. X-rays of the right hip show arthritic change with joint space narrowing osteophyte formation. Assessment/plan: 68-year-old female who presents today to discuss right total hip arthroplasty for right hip arthritis. However, patient does not have any significant right hip pain at this time. I counseled her on no need for surgical intervention until she develops hip pain. And this has to feel conservative management before thinking about hip replacement. Patient will contact me if her hip becomes painful. Otherwise I will see her in a year from her first hip replacement. documented in this encounter Plan of Treatment Upcoming Encounters Date Type Department Care Team (Late st Contact Info) Description 03/04/2024 12:00 PM EST Office Visit [place] [address] Jordyn Francisco MD [facility] [place] [address] documented as of this encounter Visit Diagnoses Diagnosis Status post total replacement of left hip documented in this encounter Care Teams Metal Hanging Helper Relationship Specialty Start Date End Date Dandy Driscoll APRN [address] [place] [address] [place] [phone] PCP - General Family Medicine 01/20/16 documented as of this encounter
--- OUTSIDE RECORDS SUMMARY | 2024-02-27 19:35 | XMS_ITS | Encounter Summary ---
Author Organization [facility] [place] [address] Care Team Providers Care Taping Supervisor Name Role Phone Dandy Driscoll APRN Primary Care Provider [phone] Encounter Details Date Type Department Care Team (Latest Contact Info) Description 11/05/2020 10:30 AM EDT [place] [address] Primary osteoarthritis of right hip Social History [...] PM EST Office [place] [address] Jordyn Francisco MD [facility] OBSTETRICS [place] [address] documented as of this encounter Procedures Procedure Name Priority Date/Time Associated Diagnosis Comments HEMOGRAM Routine 11/05/2020 11:08 AM EDT Primary osteoarthritis of right hip DIFFERENTIAL, AUTOMATED Routine 11/05/2020 11:08 AM EDT Primary osteoarthritis of right hip HC PARTIAL THROMBOPLASTIN TIME Routine 11/05/2020 11:08 AM EDT Primary osteoarthritis of right hip HC PROTHROMBIN TIME Routine 11/05/2020 1 1:08 AM EDT Primary osteoarthritis of right hip HC CBC,PLT & AUTO DIFF Routine 11:08 AM EDT Primary osteoarthritis of right hip BASIC METABOLIC PANEL Routine 11/05/2020 11:08 AM EDT Primary osteoarthritis of right hip documented in this encounter Results * (ABNORMAL) Differential, Automated (11/05/2020 11:08 AM EDT) Neutrophil % 67.6 % [facility] Neutrophil Absolute 4.82 1.70 - 6.10 x10(3)/mc L [facility] Lymph % 22.1 % [facility] Lymphocytes Abs 1.6 0.9 - 3.2 x10(3)/mc L [facility] Monocyte % 7.3 % [facility] Monocyte Abs 0.5 0.3 - 0.9 x10(3)/mc L [facility] Eos % 1.7 % [facility] Eosinophils Abs 0.1 0.0 - 0.4 x10(3)/mc L [facility] Basophil % 0.3 % [facility] Baso Absolute 0.0 0.0 - 0.1 x10(3)/mc L [facility] Immature Gran % 1.00 % [facility] Comment: Immature granulocytes(IG's)percentage and absolute count will include metamyelocytes, myelocytes, and promyelocytes. Blood smears from CBCs yielding IG's will be scanned manually for concordance. If this scan disagrees with the automated IG or if promyelocytes are noted, a manual differential will be performed. Immature Gran Absolute 0.07(H) 0.00 - 0.04 x10(3)/mc L [facility] Blood 11/05/2020 11:0 8 AM EDT 11/05/2020 11:12 AM EDT Narrative Resulting Agency Comment Spec In Lab Patrick Dumont MD HEMATOLOGY ORDERABLE S [facility] [place] [address] * (ABNORMAL) Hemogram (11/05/2020 11:08 AM EDT) White Blood Cell 7.1 4.0 - 9.5 x10(3)/ L [facility] Red Blood Cell 4.03 4.00 - 5.21 x10(6)/mc L [facility] Hemoglobin 12.9 11.7 - 15.5 gm/dL [facility] Hematocrit 39.3 35.7 - 45.8 % [facility] Mean Cell Volume 97.5(H) 82.6 - 94.4 fL [facility] Mean Cell Hemoglobin 32.0 27.1 - 32.0 pg [facility] Mean Cell Hemoglobin Concentration 32.8 31.7 - 35.0 gm/dL [facility] Platelet 226 145 - 357 x10(3)/mc L [facility] RDW Standard Deviation 48.9(H) 37.0 - 46.0 [facility] RDW coefficient of variation 13.6 11.5 - 14.1 % [facility] Mean Platelet Volume 11.1 7.6 - 12.9 [facility] NRBC% auto 0.0 % [facility] NRBC Absolute 0.000 0.000 - 0.000 x10(3)/ L [facility] Blood 11/05/2020 11:0 8 AM EDT 11/05/2020 11:12 AM EDT Narrative Resulting Agency Comment Spec In Lab Patrick Dumont MD HEMATOLOGY ORDERABLE S [facility] [place] [address] * (ABNORMAL) Basic Metabolic Panel (non-fasting) (11/05/2020 11:08 AM EDT) Glucose 126 65 - 199 mg/dL [facility] Comment:Diabetes: >=200 mg/d L plus symptoms Blood Urea Nitrogen 12 8 - 18 mg/dL [facility] Creatinine 0.59(L) 0.70 - 1.20 mg/dL [facility] Sodium 143 135 - 145 mmol/L [facility] Potassium 3.5 3.5 - 5.0 mmol/L [facility] Comment: Please note: ??Patients with WBC >100,000 may have falsely elevated Potassium levels. ??For accurate Potassium quantification in these patients send serum separator tube (gold top) for subsequent determinations. ??Contact the Clinical Chemistry Laboratory if there are any questions. Chloride 107 98 - 107 mmol/L [facility] Carbon Dioxide 27 22 - 31 mmol/L [facility] Anion Gap 9 5 - 15 mmol/L [facility] Calcium 8.8 8.5 - 10.5 mg/dL [facility] Est Glomerular Filtration Rate 94 >=60 mL/min/1. 73 m?? [facility] Comment: This patient? s estimated glomerular filtration rate (eGFR) is between 94 mL/min/1.73 m2 (patients with less muscle mass) and 108 mL/min/1.73 m2 (patients with more muscle mass) [...] and symptoms in addition to eGFR. Blood 11/05/2020 11:0 8 AM EDT 11/05/2020 11:12 AM EDT Narrative Resulting Agency Comment Spec In Lab Patrick Dumont MD CHEMISTRY ORDERABLES Performing Organization Address [facility] Co de Phone Number [facility] [place] [address] * Prothrombin Time (11/05/2020 11:08 AM EDT) Prothrombin Time 12.1 9.4 - 12.5 sec [facility] International Normalization Ratio 1.1 [facility] Comment: An INR <2.0 indicates adequate procoagulant activity for hemostasis in most patients without underlying bleeding disorders, though the INR may not adequately reflect hemostatic capacity in patients with liver disease and synthetic impairment. The recommended target INR range for therapeutic anticoagulation is 2.0 ? 3.0 for most applications, though lower and higher ranges may be appropriate depending on clinical circumstances. Blood 11/05/2020 11:0 8 AM EDT 11/05/2020 11:12 AM EDT Narrative Resulting Agency Comment Spec In Lab Patrick Dumont MD HEMATOLOGY ORDERABLE S Performing Organization Address [facility] Co de Phone Number [facility] [place] [address] * APTT (11/05/2020 11:08 AM EDT) Partial Thromboplastin Time 30 25 - 37 sec [facility] Comment: The PTT is NOT appropriate for heparin monitoring. Use the Anti-Xa level for heparin monitoring (HEP UFH) or LMWH monitoring (HEP LMW). A PTT less than 37 seconds generally indicates adequate hemostasis. Blood 11/05/2020 11:0 8 AM EDT 11/05/2020 11:12 AM EDT Narrative Resulting Agency Comment Spec In Lab Patrick Dumont MD HEMATOLOGY ORDERABLE S Performing Organization Address City/[facility]/ZIP Co de Phone Number [facility] [place] [address] documented in this encounter Visit Diagnoses Diagnosis Primary osteoarthritis of right hip Primary localized osteoarthrosis, pelvic region and thigh documented in this encounter Care Teams Taping Supervisor Relationship Specialty Start Date End Date Dandy Driscoll APRN [address] [place] [address] [place] [phone] PCP - General Family Medicine 01/20/16 documented as of this encounter
--- OUTSIDE RECORDS SUMMARY | 2024-02-27 19:35 | XMS_ITS | Encounter Summary ---
[place] [address] Care Team Providers Care Traffic Administrator Name Role Phone Dandy Driscoll APRN Primary Care Provider [phone] Reason for Visit * Reason Onset Date Comments Pre Procedure Call 12/23/2020 Encounter Details Date Type Department Care Team (Late st Contact Info) Description 12/23/2020 Telephone [place] [phone] Gilberto Seo Pre Procedure Call Social History Tobacco Use [...] encounter Miscellaneous Notes * Telephone Encounter - Rodney Greenfield - 12/28/2020 11:50 AM EDT Stacy Knight calls and reports that she requires Orthopedics to reach out to her PCP office to schedule the PREOP H&P before surgery. Per Dr. Coulter she does not need labs/EKG, just H&P. Routed to OR Schedulers for review. P: [phone] * Telephone Encounter - Gilberto Seo - 12/23/2020 2:15 PM EDT Called patient to inform her that her PCP can conduct the H&P prior to her upcoming R ENA, Per Dr. De Leon. No labs or EKG will be necessary at that time. If she is unable to get it done, Dr. Dumont could also do it the day of her surgery. documented in this encounter Plan of Treatment Upcoming Encounters Date Type Department Care Team (Late st Contact Info) Description 03/04/2024 12:00 PM EST Office Visit [place] [address] Jordyn Francisco MD [facility] [place] [address] documented as of this encounter Visit Diagnoses Not on filedocumented in this encounter Care Teams Traffic Administrator Relationship Specialty Start Date End Date Dandy Driscoll APRN [address] [place] [address] SHELLI Reich [phone] PCP - General Family Medicine 01/20/16 documented as of this encounter
--- OUTSIDE RECORDS SUMMARY | 2024-02-27 19:35 | XMS_ITS | Encounter Summary ---
Author Organization [facility] [place] [address] Care Team Providers Care Literacy Coordinator Name Role Phone Dandy Driscoll APRN Primary Care Provider [phone] Reason for Visit * Reason Onset Date Comments Knee Pain 04/25/2019 Encounter Details Date Type Department Care Team (Late st Contact Info) Description 04/25/2019 [place] [address] Carlos Delcid MD [facility] [place] [address] Knee Pain Social History Tobacco Use Types Packs/Day Years [...] encounter Miscellaneous Notes * Telephone Encounter - Monae Capps - 04/25/2019 2:41 PM EST Return call placed to patient who reports 4-5 days ago the she 'wrenched her right knee' while turning over in bed. Rates the pain as 10/10 with standing and 7/10 with rest. Reports taking muscle relaxants. Upon further questioning patient also reports pain of the right hip radiating down the full extent of the leg. States scheduled MRI on Sunday to evaluate the spine. Requesting xray of the right knee and if necessary appt with Dr Delcid or associate provider. Order written for xray of the right knee. Patient plans on completing for this Sunday, 04/28. Optometrist Owner calling to set-up for appt later the week of the . * Telephone Encounter - Shalini Landon - 04/25/2019 10:58 AM EST Where is your pain? RT Knee Did you have an injury?no Date of Injury: n/a Have you had surgery on this body part?yes Date of Surgery:2001 Who was your surgeon?Bhavin What information would you like for me to pass on to the provider?Stacy is scheduled for an MRI on Sunday04/28/19. She is having pain in her leg and is unable to determine if it is a muscle or has anything to do with her back. She wanted to be seen by Dr. Delcid on Sunday but he is not available Sunday. She asked if we can take an XR of her knee since she will be here at [facility] on Sunday and have it reviewed to see if there is anything wrong with the knee. Pain: comes from the hip/groin donw to her knee and goes over the top of the knee and down the reeves. She feels a lump at the top of her knee however it is not a new lump. It has always been there. She says it also feels like a reeves splint. Noticed a bruise about 1 inch above her knee incision. She doesn't remember hitting herself there. She is unable to stand up for more than 5 minutes, is using a cane when moving around. Once she is sitting she is ok. Laying down is very difficult to straighten her leg or find a comfortable spot. She states she uses her feet to turn over in bed and may have wrenched her knee while attempting to roll over. On a scale of 1 to 10, where would you rate your pain: 9 when moving around. For 6 to 7 days. Best number to reach you # [phone] - she will be available most of the day. She says to pleaselet the phone ring as it may take her a bit to get to the phone. I will misti this as urgent, the nurses continuously monitor their messages and will call as soon asthey are able. documented in this encounter Plan of Treatment Upcoming Encounters Date Type Department Care Team (Late st Contact Info) Description 03/04/2024 12:00 PM EST Office Visit [place] [address] Jordyn Francisco MD [facility] [place] [address] documented as of this encounter Results * XR Knee Standing [...] please contact the number below. ? Narrative 04/30/2019 3:10 PM EST EXAMINATION: XR [...] of the right knee joint. Procedure Note Sin, Charo Salcedo MD - 04/30/2019 EXAMINATION: XR KNEE STANDING [...] of the femoralcomponent is essentially unchanged since 2003. Small knee [...] this report, please contact the number below. Carlos Delcid MD IMG DX ORDERABLES documented in this encounter Visit Diagnoses Diagnosis Status post total left knee replacement using cement Acute pain of left knee Acute pain of right knee Status post total left knee replacement using cement Acute pain of right knee documented in this encounter Care Teams Literacy Coordinator Relationship Specialty Start Date End Date Dandy Driscoll APRN [address] [place] [address] [place] [phone] PCP - General Family Medicine 01/20/16 documented as of this encounter
--- OUTSIDE RECORDS SUMMARY | 2024-02-27 19:35 | XMS_ITS | Encounter Summary ---
[place] [address] Care Team Providers Care Checker/Stocker Name Role Phone Dandy Driscoll APRN Primary Care Provider [phone] Encounter Details Date Type Department Care Team (Late st Contact Info) Description 03/26/2018 Telephone [place] [phone] Erika Barr RN Social History Tobacco Use Types Packs/Day [...] encounter Miscellaneous Notes * Telephone Encounter - Erika Barr RN - 03/28/2018 10:22 AM EST Images from the original note were not included. Picture e-mailed in from PT today: Sending to Dr. Dumont to review. * Telephone Encounter - Erika Barr RN - 03/27/2018 9:46 AM EST Return call from patient. She agrees with Dr. Dumont's plan/recommendations. She says she does not have PT until tomorrow, so she will not be able to obtain a picture until tomorrow. She will call after her PT appointment tomorrow to make sure that we receive the picture. * Telephone Encounter - Erika Barr RN - 03/27/2018 9:43 AM EST Update/advice from Dr. Dumont: She does not need abx, send pic tomorrow and will let her now about coming Sunday Telephone call to patient to relay plan. No answer, no vm. Will call back and continue to reach. * Telephone Encounter - Erika Barr RN - 03/26/2018 4:24 PM EST Subjective: Telephone call from patient. She says that she only took two capsules of the Keflex theother day and then developed bad diarrhea and vomited once. She topped taking the Keflex as she could not tolerate it. She asks if she needs another antibiotic? She is allergic to penicillin. She denies any worsening symptoms. She says she is scheduled to come in for an appointment on this Sunday Dr. Dumont told her to send a picture in a week,so she wonders if a follow up appointment is needed or not Sunday? Plan:Will send message to Dr. Dumont to advise. Will call patient back with his recommendations. Patient advised to call with any worsening symptoms. Patient/Responsible alliance party voices an understanding of advice? Yes Patient/Responsible alliance party intends to comply with action/disposition:Yes documented in this encounter Plan of Treatment Upcoming Encounters Date Type Department Care Team (Late st Contact Info) Description 03/04/2024 12:00 PM EST Office Visit [place] [address] Jordyn Francisco MD [facility] [place] [address] documented as of this encounter Visit Diagnoses Not on filedocumented in this encounter Care Teams Checker/Stocker Relationship Specialty Start Date End Date Dandy Driscoll APRN [address] [facility] [place] [id number] PCP - General Family Medicine 01/20/16 documented as of this encounter
--- OUTSIDE RECORDS SUMMARY | 2024-02-27 19:35 | XMS_ITS | Encounter Summary ---
[place] [address] Care Team Providers Care Combat Information Center Officer Name Role Phone Dandy Driscoll APRN Primary Care Provider [phone] Reason for Visit * Reason Onset Date Comments Other 10/20/2020 Encounter Details Date Type Department Care Team (Late st Contact Info) Description 10/20/2020 Tele[place] [phone] Rodney Greenfield Other Social History Tobacco Use Types Packs/Day Years [...] * Telephone Encounter - Rodney Greenfield - 10/20/2020 1:[address] Dumont prepped and pended new refill for medications. Informed the patient that she would need to follow-up with her PCP for a prescription past one month. I assured her that the surgical schedulers would reach out to schedule surgery. P: * Telephone Encounter - Rodney Greenfield - 10/20/2020 11:37 AM EDT Stacy Knight is a 70 y.o. female who calls today with CC of left hip. She was last seen 07/15/[address] Dumont and Awilda Marin. At that time Dr. Dumont agreed to perform L ENA if she would like to move forward with surgery. At this time patient would like to move forward with surgery. She reports a fall from this past weekend. She was uninjured and able to walk, however her left hip arthritis has flared significantly. She has been taking meloxicam 7.5 mg daily, and resting to treat this. I suggested she add acetaminophen at the recommended dose on package insert if she is able to take it. She understood and agreed she would add this. She would also like a refill of both her tramadol and meloxicam. She left a message with the OR schedulers to call back and schedule surgery with Dr. Dumont. Routed to Dr. Dumont for review/instruction. documented in this encounter Plan of Treatment Upcoming Encounters Date Type Department Care Team (Late st Contact Info) Description 03/04/2024 12:00 PM EST Office Visit [place] [address] Jordyn Francisco MD [facility] OBSTETRICS [place] [address] documented as of this encounter Visit Diagnoses Diagnosis Primary osteoarthritis of right hip Primary localized osteoarthrosis, pelvic region and thigh documented in this encounter Care Teams Combat Information Center Officer Relationship Specialty Start Date End Date Dandy Driscoll APRN [address] [place] [address] [place] [phone] PCP - General Family Medicine 01/20/16 documented as of this encounter
--- OUTSIDE RECORDS SUMMARY | 2024-02-27 19:35 | XMS_ITS | Encounter Summary ---
Author Organization [facility] [place] [address] Care Team Providers Care Dispatcher Service Chief Name Role Phone Dandy Driscoll APRN Primary Care Provider [phone] Encounter Details Date Type Department Care Team (Late st Contact Info) Description 05/29/2018 Health Site Acquisition Manager [facility] [place] [phone] Javier Shahid Social History Tobacco Use Types Packs/Day Years [...] as of this encounter Progress Notes * Javier Shahid - 05/29/2018 3:10 PM EST Patient spoke to Patient Support Corps Member Mike Hilario to develop a list of questions and concerns (below) for their appointment on 05/30/[address] Dumont. Providers may use the list however best integrates into their appointment flow, however, I recommend that they at least acknowledge the patient's efforts to prepare for their appointment. Question and Concern List Patient: Stacy Knight Visiting: Dr. Dumont [facility] Linen Worker: Mike Hilario Power Statement: Although my right hip isn???t bothering me too much right now, I want to know if Ishould go ahead and replace my hip before doing any more PT. Past: clarifying known facts about my condition Situation 1. My right hip isn???t hurting me a whole lot at the moment. a. I am currently doing sessions of physical therapy. i. I am concerned about how many more sessions can go on my Medicare before I run out. b. Although the PT is working slowly, I still have problems with balance. i. I recently almost fell over due to weakness in that area, causing a groin pull. c. What is the current status of my hip? 2. I have had my left hip replaced relatively recently and want a status post on that. a. Would I be able to get more recent imaging for that hip? b. I was told that I am high risk for that area. c. I believe that the muscles and tendons in that area are still acting up. 3. I still have issues with balance and have a wobble that has gotten worse over time. a. I need to use a cane to walk around the house. Present: clarifying which options are available and what???s involved, roles of people involved Choices 4. I am concerned about how many more sessions of PT can go on my Medicare and want to know if I should go ahead and get surgery. a. Does Dr. Dumont advise going through with surgery? b. I would prefer to not have it for a couple months - until - if it can wait. People 5. I have been working with the PT to fix my balance issues. a. I believe that it has been working slowly but surely and want to know if surgery is something that will eventually be required. Future: clarifying my goals and priorities, future impact of treatment options Evaluation and Decision 6. If surgery is the right option for me, I would rather not have it scheduled for a couple months until the fall. a. I need to complete various tasks like cleaning and getting a hot water tank in and want to have my surgery be after these tasks are completed. documented in this encounter Plan of Treatment Upcoming Encounters Date Type Department Care Team (Late st Contact Info) Description 03/04/2024 12:00 PM EST Office Visit [place] [address] Jordyn Francisco MD [facility] OBSTETRICS [place] [address] documented as of this encounter Visit Diagnoses Not on filedocumented in this encounter Care Teams Dispatcher Service Chief Relationship Specialty Start Date End Date Dandy Driscoll APRN [address] [place] [address] [place] [phone] PCP - General Family Medicine 01/20/16 documented as of this encounter
--- OUTSIDE RECORDS SUMMARY | 2024-02-27 19:35 | XMS_ITS | Encounter Summary ---
[place] [address] Care Team Providers Care Grief Counsellor Name Role Phone Dandy Driscoll APRN Primary Care Provider [phone] Reason for Visit * Reason Onset Date Comments Pre Procedure Call 07/21/2020 Encounter Details Date Type Department Care Team (Late st Contact Info) Description 07/21/2020 [place] [address] Patrick Dumont MD Pre Procedure [...] * Telephone Encounter - Asha Epperson - 07/21/2020 9:32 AM EDT I called and left a message for patient to call [phone] directly and schedule surgery with Dr. Dumont. documented in this encounter Plan of Treatment Upcoming Encounters Date Type Department Care Team (Late st Contact Info) Description 03/04/2024 12:00 PM EST Office Visit [place] [address] Jordyn Francisco MD [facility] [place]ST[place] [address] documented as of this encounter Visit Diagnoses Not on filedocumented in this encounter Care Teams Grief Counsellor Relationship Specialty Start Date End Date Dandy Driscoll APRN [address] [place] [address] [place] [phone] PCP - General Family Medicine 01/20/16 documented as of this encounter
--- OUTSIDE RECORDS SUMMARY | 2024-02-27 19:35 | XMS_ITS | Encounter Summary ---
[place] [address] Care Team Providers Care Summer Intern Name Role Phone Dandy Driscoll APRN Primary Care Provider [phone] Reason for Referral * Consultation (Routine) - Closed Specialty Diagnoses / Procedures Referred By Contac t Referred To Contact [facility] Diagnoses Chronic midline low back pain without sciatica Alejandrina Elliott PA [facility] [place] [address] [facility] [place] [address] Referral ID Status Reason Start Date Expiration Date V isits Requested Visits Authorized [id number] Closed Consult, Test & Treat 01/30/2019 01/30/2020 1 1 Reason for Visit * Reason Comments Follow-up XR, LEFT ENA DOS 02/13/18 Encounter Details Date Type Department Care Team (Late st Contact Info) Description 01/30/2019 12:40 PM EDT Office [place] [address] Patrick Dumont MD Status post total replacement of left hip; Chronic midline low back pain without sciatica Social History Tobacco Use Types Packs/Day Years [...] Sign Reading Time Taken Comments Blood Pressure 142/67 01/30/2019 12:39 PM EDT Pulse 80 01/30/2019 12:39 PM EDT Temperature - - Respiratory Rate - - Oxygen Saturation - - Inhaled Oxygen Concentration - - Weight 113.4 kg (250 lb) 01/30/2019 12:39 PM EDT Verbal Height 157.5 cm (5' 2) 01/30/2019 12:39 PM EDT Verbal Body Mass Index 45.73 01/30/2019 12:39 PM EDT documented in this encounter Progress Notes * Alejandrina Elliott PA - 01/30/2019 12:40 PM EDT Arthroplasty/Orthopaedic History: 1. Left ENA - 02/13/18 - Dr. Dumont HPI: Stacy Knight is a very pleasant 68 y.o. year-old female and is now 1 year status post left ENA. She is doing great. She has no pain or complaints regarding her hip. She is incredibly happy withthe results of her surgery. She is able to function much better than her preoperative status. She did accidentally eject a stable from a staple gun into her left mid thigh, but this is far below the level of the hip and it has healed very well. She does have some midline low back problems and is interested in being seen by someone for this. She is not ambulating with any assistive device ROS: Denies: fever, chills, night sweats, nausea, or vomiting BP 142/67 (BP Location (NBP): Right arm, Patient Position: Sitting, BP Cuff Sizes: Large Adult (32-43 cm)) Pulse 80 Ht 157.5 cm (5' 2) Comment: Verbal Wt 113.4 kg (250 lb) Comment: Verbal BMI 45.73 kg/m?? Physical Exam: Well-appearing female in no acute distress. Alert and Oriented x 3 and answers all questions appropriately. The incision is well healed, with no signs of infection. I have made the following determinations: Post Op Left Hip Exam: Leg Length: Longer leg: equal Limb Length discrepancy: 0cm Motion: Flexion contracture: 0 Total degrees of Flexion: 95 Total degrees of Abduction: 45 Total degrees of Ext Rotation: 30 Total degrees of Internal Rotation: 10 Gait Abnormality: Normal Pulses Palpable: Left PT: Yes Left DP: Yes Motor/Sensory: Left Distal Motor: Normal Distal Sensory: Normal Hip Abductors: 5 Trendelenburg test: negative X-RAYS: Multiple radiographic views were obtained at my request and reviewed with the patient. X-rays show a well-placed prosthesis with no evidence of fracture, subsidence, loosening, or periprosthetic complication. Questionnaire Responses: [facility] Surgical Postop Visit 01/30/2019 PROMIS-10 General Health Very Good PROMIS-10 Quality of Life Good PROMIS-10 Physical Health Very Good PROMIS-10 Mental Health Very Good PROMIS-10 Social Activity Very Good PROMIS-10 Everyday Activities Mostly PROMIS-10 Pain 0 -No Pain PROMIS-10 Fatigue Moderate PROMIS-10 Social Roles Very Good PROMIS-10 Anxious or Depressed Sometimes PROMIS PHYSICAL HEALTH SCORE 50.8 PROMIS MENTAL HEALTH SCORE 48.3 HOOS JR Scores 100 Problems with surgical incision/wound after surgery No Gone to ER since knee surgery No Admitted to hospital since recent ortho surgery No Additional surgery on same body part No TKA Grade - Pain in other KNEE - ENA Grade 0 Pain in other HIP Mild Back pain at this moment Moderate Satisfaction with Treatment Satisfied Choose Same Treatment Again Definitely yes Orthopeadics [facility] Response 01/30/2019 HOOS JR Scores 100 Spine [facility] Response 01/30/2019 HOOS JR Scores 100 ASSESSMENT/PLAN: Ms. Knight is a 68 y.o. year old female status post left total hip replacement. Sheis doing great. She can continue participating in activities as tolerated. Placed a referral for her to go to the spine center for her low back pain. She will follow-up in 2 years with repeat x-rays of the left hip. We discussed the appropriate precautions surrounding dental [...] PM EST Office Visit [place] [address] Jordyn Francisco MD [facility] OBSTETRICS [place] [address] Scheduled Referrals Name Type Priority Associated Diagnoses Orde r Schedule Referral to Spine Center Outpatient Referral Routine Chronic midline low back pain without sciatica Ordered: 01/30/2019 documented as of this encounter Visit Diagnoses Diagnosis Status post total replacement of left hip Chronic midline low back pain without sciatica documented in this encounter Care Teams Summer Intern Relationship Specialty Start Date End Date Dandy Driscoll APRN [address] [place] [address] SHELLI Reich [phone] PCP - General Family Medicine 01/20/16 documented as of this encounter
--- OUTSIDE RECORDS SUMMARY | 2024-02-27 19:35 | XMS_ITS | Encounter Summary ---
[place] [address] Care Team Providers Care Bag Patcher Name Role Phone Dandy Driscoll APRN Primary Care Provider [phone] Reason for Visit * Reason Comments Medication Refill Encounter Details Date Type Department Care Team (Late st Contact Info) Description 11/26/2020 Refill [place] [address] Patrick Dumont MD Primary osteoarthritis of right [...] encounter Miscellaneous Notes * Telephone Encounter - Khloe Kate CCMA - 11/26/2020 9:22 AM EDT Per 10/20/[address] Dumont stated further refills would have to be managed by patient's PCP. Attempted to call patient to ask her to contact her PCP regarding this request. documented in this encounter Plan of Treatment Upcoming Encounters Date Type Department Care Team (Late st Contact Info) Description 03/04/2024 12:00 PM EST Office Visit [place] [address] Jordyn Francisco MD [facility] OBSTETRICS [place] [address] documented as of this encounter Visit Diagnoses Diagnosis Primary osteoarthritis of right hip Primary localized osteoarthrosis, pelvic region and thigh documented in this encounter Care Teams Bag Patcher Relationship Specialty Start Date End Date Dandy Driscoll APRN [address] [place] [address] [place] [phone] PCP - General Family Medicine 01/20/16 documented as of this encounter
--- OUTSIDE RECORDS SUMMARY | 2024-02-27 19:35 | XMS_ITS | Encounter Summary ---
Author Organization [facility] [place] [address] Care Team Providers Care Nut Roaster Name Role Phone Dandy Driscoll APRN Primary Care Provider [phone] Encounter Details Date Type Department Care Team (Latest Contact Info) Description 11/05/2020 10:30 AM EDT Clinical [place] [phone] Primary osteoarthritis of right hip Social History [...] as of this encounter Progress Notes * Asha Ponce RN - 11/05/2020 10:30 AM EDT PAT questionnaire reviewed with patient while in Pre Admission testing. Pt has tolerated anesthesiain the past. Pre-operative instruction booklet reviewed. Patient verbalizes a good understanding ofall information reviewed. PLAN: Testing: Labs and EKG Special medication instructions: Clearfast 1 bottle given to patient with instructions to drink 3 hours prior to surgery. Procedure date: 11-24-20 Dr Dumont Pre Surgery Covid screening: Were you diagnosed with COVID 19 or had symptoms consistent with COVID19 within the last 3 months. No. Covid 19 vaccine card scanned into chart. PAT Penicillin Allergy Risk Assessment 11/05/2020: Low risk penicillin allergy. OK to receive full dose of cefazolin, cefuroxime, or any 3rd or 4th+ generation cephalosporin. Pt relies on [facility] for transportation. documented in this encounter Plan of Treatment Upcoming Encounters Date Type Department Care Team (Late st Contact Info) Description 03/04/2024 12:00 PM EST Office Visit [place] [address] Jordyn Francisco MD [facility] DR OBSTETRICS [place] [address] documented as of this encounter Procedures Procedure Name Priority Date/Time Associated Diagnosis Comments EKG 12-LEAD Routine 11/05/2020 11:57 AM EDT Primary osteoarthritis of right hip documented in this encounter Results * EKG 12 Lead (11/05/2020 11:57 AM EDT) Ventricular rate 69 BPM MUSE SYSTEM Atrial Rate 69 BPM MUSE SYSTEM P-R Interval 196 ms MUSE SYSTEM QRS Duration 80 ms MUSE SYSTEM Q-T Interval 396 ms MUSE SYSTEM QTC Calculated (Bezet) 424 ms MUSE SYSTEM Calculated P Clinton 67 degrees MUSE SYSTEM Calculated R [place] 57 degrees MUSE SYSTEM Calculated T [place] 48 degrees MUSE SYSTEM INTERPRETATION Normal sinus rhythm Normal ECG When compared with ECG of 15-NOV-2017 12:24, No significant change was found Confirmed by MD Julien, Toño ([id number]) on 11/05/2020 2:54:08 PM MUSE SYSTEM 11/05/2020 11:5 7 AM EDT 11/05/2020 2:54 PM EDT Patrick Dumont MD ECG ORDERABLES MUSE SYSTEM documented in this encounter Visit Diagnoses Diagnosis Primary osteoarthritis of right hip Primary localized osteoarthrosis, pelvic region and thigh documented in this encounter Care Teams Nut Roaster Relationship Specialty Start Date End Date Dandy Driscoll APRN [address] [place] [address] SHELLI Reich [phone] PCP - General Family Medicine 01/20/16 documented as of this encounter
--- OUTSIDE RECORDS SUMMARY | 2024-02-27 19:36 | XMS_ITS | Encounter Summary ---
[place] [address] Care Team Providers Care Conference Interpreter Name Role Phone Dandy Driscoll APRN Primary Care Provider [phone] Reason for Visit * Reason Onset Date Comments Post-op Problem 03/21/2018 Encounter Details Date Type Department Care Team (Late st Contact Info) Description 03/21/2018 Telephone [place] [phone] Ileana Srivastava RMA Post-op Problem Social History Tobacco Use Types Packs/Day Years [...] encounter Miscellaneous Notes * Telephone Encounter - Ileana Srivastava RMA - 03/21/2018 11:32 AM EST Reviewed with Dr Dumont. He stated that he would like her to place a Meplix over her incision and hewould like to see her tomorrow at 11:00am for a wound check. I called and spoke with Stacy and She agreed to the above plan. Appt schd for 11:00 AM , 03/22/[address] Dumont. * Telephone Encounter - Ileana Srivastava RMA - 03/21/2018 11:19 AM EST Images from the original note were not included. Subjective: Post op problem - wound SP Surgeon Role Patrick Dumont MD Primary Reggie Olivas MD Procedure Laterality Anesthesia @TOTAL HIP ARTHROPLASTY, ANTERIOR APPROACH (WRVU 20.72) Left DOS 02/13/18 Carter questions/Assessment: Stacy called very upset and demanded that we show Dr Dumont her pictures that her physical therapist sent this morning. She stated that she is very concerned . She stated that she wanted this done immediatly and not in three days. Plan: I let her know that I would be showing her pictures right way to Dr Dumont. She let me know that I had better as she [place] three [place] away. I let Stacy know that we would call her back with a plan of care. Patient/Responsible democrat voices an understanding of advice? yes documented in this encounter Plan of Treatment Upcoming Encounters Date Type Department Care Team (Late st Contact Info) Description 03/04/2024 12:00 PM EST Office Visit [place] [address] Jrodyn Francisco MD [facility] OBSTETRICS [place] [address] documented as of this encounter Visit Diagnoses Not on filedocumented in this encounter Care Teams Conference Interpreter Relationship Specialty Start Date End Date Dandy Driscoll APRN [address] [place] [address] SHELLI Reich [phone] PCP - General Family Medicine 01/20/16 documented as of this encounter
--- OUTSIDE RECORDS SUMMARY | 2024-02-27 19:36 | XMS_ITS | Encounter Summary ---
[place] [address] Care Team Providers Care Pillowcase Turner Name Role Phone Dandy Driscoll APRN Primary Care Provider [phone] Reason for Referral * Physical Therapy (Routine) - Specialty Diagnoses / Procedures Referred By Contac t Referred To Contact Physical Therapy Diagnoses Status post left hip replacement Patrick Dumont MD [facility] [place] [address] Referral ID Status Reason Start Date Expiration Date V isits Requested Visits Authorized [id number] Evaluate and Treat 11/15/2017 05/14/2018 20 20 Encounter Details Date Type Department Care Team (Late st Contact Info) Description 11/15/2017 Orders Only [place] [phone] Patrick Dumont MD Status post left hip replacement Social History Tobacco Use Types Packs/Day Years [...] PM EST Office Visit [place] [address] Jordyn Francisco MD [facility] [place] [address] Scheduled Referrals Name Type Priority Associated Diagnoses Orde r Schedule Referral to Physical Therapy Outpatient Referral Routine Status post left hip replacement Ordered: 11/15/2017 documented as of this encounter Visit Diagnoses Diagnosis Status post left hip replacement Hip joint replacement by other means documented in this encounter Care Teams Pillowcase Turner Relationship Specialty Start Date End Date Dandy Driscoll APRN [address] [place] [address] [place] [phone] PCP - General Family Medicine 01/20/16 documented as of this encounter
--- OUTSIDE RECORDS SUMMARY | 2024-02-27 19:36 | XMS_ITS | Encounter Summary ---
Author Organization [facility] [place] [address] Care Team Providers Care Substation Operator Conversion Name Role Phone Dandy Driscoll APRN Primary Care Provider [phone] Encounter Details Date Type Department Care Team (Late st Contact Info) Description 01/08/2018 Orders [place] [address] Patrick Dumont MD Social History Tobacco Use [...] PM EST Office Visit [place] [address] Jordyn Francisco MD [facility] OBSTETRICS [place] [address] documented as of this encounter Visit Diagnoses Not on filedocumented in this encounter Care Teams Substation Operator Conversion Relationship Specialty Start Date End Date Dandy Driscoll APRN [address] [place] [address] [place] [phone] PCP - General Family Medicine 10/13/16 documented as of this encounter
--- OUTSIDE RECORDS SUMMARY | 2024-02-27 19:36 | XMS_ITS | Encounter Summary ---
[place] [address] Care Team Providers Care Dbas Name Role Phone Yamila Dandy LANDEROS Primary Care Provider [phone] Encounter Details Date Type Department Care Team (Late st Contact Info) Description 01/09/2018 3:32 PM EDT Anesthesia Event [place] [address] Hanane Jones MD [facility] [place] [address] Hanane Jones MD [facility] [place] [address] Anesthesia Record Procedure Summary Procedure Name Responsible Anesthesiologist Anesthesia Start Time Anesthesia Stop Time TOTAL HIP ARTHROPLASTY, ANTERIOR APPROACH (WRVU 19.6) (Left: Hip) Events No events on file. Meds * [...] m idline; coccyx; Covered with mepilex. Notified tire man-onc team 02/07/24 1440 by Tobias Bolivar [...] OR Notes * Anesthesia Preprocedure Evaluation - Hanane Jones - 01/08/2018 5:17 PM EDT Pre-Anesthesia Evaluation for: Stacy Knight a 67 y.o. female. Procedure(s): @TOTAL HIP ARTHROPLASTY, ANTERIOR APPROACH (WRVU 20.72) HIP INTRAOP RADIOLOGIC EXAMINATION, UNILATERAL, W PELVIS; 4+ VIEWS (WRVU 0.27) MODIFIER CORAIL FEMORAL STEM DEPUY MODIFIER PINNACLE ACETABULUM DEPUY Patient Active Problem List Diagnosis ??? Primary osteoarthritis of left hip ??? Pain in left hip ??? History of total right knee replacement, R TKA performed in 2001 ??? Tibial component revision L knee (11/11/2012, Bhavin) ??? Impaired renal function Past Medical History: Diagnosis Date ??? Asthma ??? Bowel disease ibs ??? Chronic pain ??? COPD (chronic obstructive pulmonary disease) ??? Gastroesophageal reflux ??? High blood pressure ??? Mental health problem depression ??? Transfusion history 1983 ??? Vertigo fell out of chair in past year Past Surgical History: Procedure Laterality Date ??? JOINT REPLACEMENT ??? PRO REVISE KNEE JOINT REPLACE, ALL PARTS 11/11/2012 @TOTAL KNEE REVISION ARTHROPLASTY, COMPLETE performed by Carlos Delcid MD at [facility] MAIN OR Social History Substance Use Topics ??? Smoking status: Former Smoker Packs/day: 0.00 Years: 0.50 Types: Cigarettes Quit date: 1979 ??? Smokeless tobacco: Never Used ??? Alcohol use No History Drug Use No Allergies Allergen Reactions ??? Isopropyl Alcohol Rash ??? Meperidine Hcl Other (See Comments) Very Loopy ??? Penicillins Other (See Comments) SWELLS UP ??? Propoxyphene Hcl Itching Medications: MAR and/or home medications have been reviewed. Physical Exam: There were no vitals filed for this visit. There is no height or weight on file to calculate BMI. Anesthesia Physical Exam Anesthesia Plan: ASA 3 Preliminary Note 67 y.o., 111 kg female with left hip osteoarthritis presenting for left ENA. PMH significant for - HTN on verapamil. outpt BPs 140s/70s - GERD - COPD on advair, albuterol inhaler - depression on wellbutrin - chronic pain on tramadol, flexeril, & naproxen Anesthetic hx: No reported prior complications with anesthesia Airway hx: Gr 1 view with cmac EKG 2018 - NSR, normal EKG Lab Results Component Value Date HGB 13.4 11/15/2017 PLATELET 257 11/15/2017 INR 1.0 11/15/2017 NA 143 11/15/2017 K 4.0 11/15/2017 CREATININE 0.67 (L) 11/15/2017 11/15/17 1208 ABORH A Neg Allergies: -- Isopropyl Alcohol -- Rash -- Meperidine Hcl -- Other (See Comments) -- Very Loopy -- Penicillins -- Other (See Comments) -- SWELLS UP -- Propoxyphene Hcl -- Itching NPO Status: Appropriate Anesthetic Plan: Spinal GA backup, cmac in room Standard ASA monitoring Adequate IV access Case cancelled d/t scratches over surgical site. Informed Consent: PAT Staff Note documented in this encounter Plan of Treatment Upcoming Encounters Date Type Department Care Team (Late st Contact Info) Description 03/04/2024 12:00 PM EST Office Visit [place] [address] Jordyn Francisco MD [facility] OBSTETRICS [place] [address] documented as of this encounter Visit Diagnoses Not on filedocumented in this encounter Care Teams Dbas Relationship Specialty Start Date End Date Dandy Driscoll APRN [address] [place] [phone] PCP - General Family Medicine 01/20/16 documented as of this encounter
--- OUTSIDE RECORDS SUMMARY | 2024-02-27 19:36 | XMS_ITS | Encounter Summary ---
[place] [address] Care Team Providers Care Melangeur Operator Name Role Phone Dandy Driscoll APRN Primary Care Provider [phone] Reason for Visit * Reason Comments Post Op left ANT ENA DOS 02/13/18 Encounter Details Date Type Department Care Team (Late st Contact Info) Description 03/07/2018 12:40 PM EST Office Visit [place] [address] Patrick Dumont MD Status post total replacement [...] Sign Reading Time Taken Comments Blood Pressure 164/72 03/07/2018 12:42 PM EST Pulse 85 03/07/2018 12:42 PM EST Temperature - - Respiratory Rate - - Oxygen Saturation - - Inhaled Oxygen Concentration - - Weight 111.1 kg (245 lb) 03/07/2018 12:42 PM EST Height 157.5 cm (5' 2) 03/07/2018 12:42 PM EST Body Mass Index 44.81 03/07/2018 12:42 PM EST documented in this encounter Progress Notes * Alejandrina Elliott PA - 03/07/2018 12:40 PM EST Arthroplasty/Orthopaedic History: 1. Left ENA - 02/13/18 - Dr. Dumont HPI: Stacy Knight is a very pleasant 67 y.o. year-old female and is now 3 weeks s/p left ENA. She is doing well. Her pain is minimal, and primarily muscular. She has struggled with some mild dehiscence of the wound and was seen by her PCP 3 days ago to have it dressed. She has had minimal drainagefrom the area, with mild erythema. She denies any pus. She is ambulating with a cane for long distan carlos. She is working with physical therapy and making good progress there. ROS: Denies: fever, chills, night sweats, nausea, or vomiting BP 164/72 Pulse 85 Ht 157.5 cm (5' 2) Wt 111.1 kg (245 lb) BMI 44.81 kg/m?? Physical Exam: Well-appearing female in no acute distress. Alert and Oriented x 3 and answers all questions appropriately. The incision is healing distally, wiht perneo in place; there is a small area of mild dehiscence along the proximal spect of the wound, with mild erythema, and no drainage. . Hip Exam: Left Leg Length: Longer leg: equal Limb Length [...] subsidence, loosening, or periprosthetic complication. Questionnaire Responses: [facility] Surgical Postop Visit 03/07/2018 PROMIS-10 General Health - PROMIS-10 Quality of Life - PROMIS-10 Physical Health - PROMIS-10 Mental Health - PROMIS-10 Social Activity - PROMIS-10 Everyday Activities - PROMIS-10 Pain - PROMIS-10 Fatigue - PROMIS-10 Social Roles - PROMIS-10 Anxious or Depressed - PROMIS PHYSICAL HEALTH SCORE - PROMIS MENTAL HEALTH SCORE - HOOS JR Scores 80.56 Gone to ER since knee surgery - Admitted to hospital since recent ortho surgery - Additional surgery on same body part - ENA Grade - Satisfaction with Treatment - Choose Same Treatment Again - [facility]ope[facility] Response 03/07/2018 HOOS JR Scores 80.56 Spine [facility] Response 03/07/2018 HOOS JR Scores 80.56 ASSESSMENT/PLAN: Ms. Knight is a 67 y.o. year old female status post left total hip replacement. Sheis doing well. She has some mild dehiscence in the proximal aspect of the incision, which does not appear infected at this time, and I have no suspicion of deeper infection. Her wound was re-dressed with a silver mepilex, and should leave this on for the next week. She will follow up in 1 week withno X-rays for a repeat wound check. We discussed the appropriate precautions surrounding dental [...] EST Office Visit [place] [address] Jordyn Francisco MD [facility] [place] [address] documented as of this encounter Visit Diagnoses Diagnosis Status post total replacement of left hip documented in this encounter Care Teams Melangeur Operator Relationship Specialty Start Date End Date Dandy Driscoll APRN [address] [place] [address] SHELLI Reich [phone] PCP - General Family Medicine 01/20/16 documented as of this encounter
--- OUTSIDE RECORDS SUMMARY | 2024-02-27 19:36 | XMS_ITS | Encounter Summary ---
[place] [address] Care Team Providers Care Implementation Coordinator Name Role Phone Dandy Driscoll APRN Primary Care Provider [phone] Reason for Visit * Auth/Cert Specialty Diagnoses / Procedures Referred By Contac t Referred To Contact Diagnoses Primary osteoarthritis of left hip left hip oa n/a Procedures PRO TOTAL HIP ARTHROPLASTY @TOTAL HIP ARTHROPLASTY, ANTERIOR APPROACH (WRVU 20.72) Referral ID Status Reason Start Date Expiration Date Visits Re quested Visits Authorized [id number] 1 1 Encounter Details Date Type Department Care Team (Late st Contact Info) Description 12/12/2017 10:00 AM EDT - 12/12/2017 12:28 PM EDT Surgery [place] [address] Patrick Dumont MD Not Performed TOTAL HIP ARTHROPLASTY, ANTERIOR APPROACH (WRVU 19.6) [...] Sign Reading Time Taken Comments Blood Pressure 181/92 12/12/2017 9:03 AM EDT Pulse 86 12/12/2017 9:03 AM EDT Temperature 36.4 ??C (97.5 ??F) 12/12/2017 9:03 AM ED T Respiratory Rate 16 12/12/2017 9:03 AM EDT Oxygen Saturation 98% 12/12/2017 9:03 AM EDT Inhaled Oxygen Concentration - - Weight 111.1 kg (245 lb) 12/12/2017 9:03 AM EDT Height 157.5 cm (5' 2) 12/12/2017 9:03 AM EDT Body Mass Index 44.81 12/12/2017 9:03 AM EDT documented in this encounter Medications [...] the lungs every 4 hours as needed. loperamide (IMODIUM A-D) 2 mg Tablet Take 4 mg by mouth 4 times daily as needed for Diarrhea. Maximum 16 mg in 24 hours 12/04/2023 LIDOCAINE/MENTHOL (ZIM'S MAX-FREEZE, LIDO-MENTHL, TOP) Apply topically. 2017 fwws-shux-vsn-yuc-artemio -violette-hor [phone] mg Tablet Take by mouth. 02/15/2018 LACTOSE-REDUCED FOOD (NUTRITIONAL SUPPLEMENT ORAL)Indications:Mind over matter Brain Formula Take by mouth. Indications: Mind over matter Brain Formula 01/26/2021 DIETARY SUPPLEMENT ORALIndications:Carb Blcoker; White Kidney Marquez Take by mouth. Indications: Carb Blcoker; White Kidney Marquez 11/05/2020 DIETARY SUPPLEMENT ORALIndications:Phyto plankton blend Take by mouth. Indications: Phytoplankton blend 11/05/2020 Dietary Supplement CapsuleIndications:Bl adder Support Take by mouth. Indications: Bladder Support 03/07/2018 traMADol (ULTRAM) 50 mg Tablet TAKE ONE TABLET BY MOUTH AT BEDTIME NEEDED 2 08/26/2015 02/15/2018 cephALEXin (KEFLEX) 500 mg capsule Take by mouth as needed. TAKES 1 HOUR PRIOR TO DENTAL WORK. 02/13/2018 naproxen (NAPROSYN) 250 mg tablet Take 250 [...] as needed. documented as of this encounter H&P Notes * Patrick Dumont MD - 12/12/2017 9:15 AM EDT Patient was cancelled due to fresh scrap over incision site. documented in this encounter Plan of Treatment Upcoming Encounters Date Type Department Care Team (Late st Contact Info) Description 03/04/2024 12:00 PM EST Office Visit Gyne[place] [address] Jordyn Francisco MD [facility] DR OBSTETRICS [place] [address] documented as of this encounter Procedures Procedure Name Priority Date/Time Associated Diagnosis Comments HIP INTRAOP RADIOLOGIC EXAMINATION, UNILATERAL, W PELVIS; 4+ VIEWS Routine 12/12/2017 4:44 AM EDT Primary osteoarthritis of left hip documented in this encounter Visit Diagnoses Diagnosis Primary osteoarthritis of left hip Primary localized osteoarthrosis, pelvic region and thigh Primary osteoarthritis of left hip Primary localized osteoarthrosis, pelvic region and thigh documented in this encounter Administered Medications Inactive Administered Medications - up to 3 most recent administrations Medication Order MAR Action Action Date Dose Rate Site lactated Ringers infusion 1,000 mL 1,000 mL, at 100 mL/hr, Intravenous, CONTINUOUS, Starting on Sun12/12/17 at 0930, Until Sun12/12/17 at 1159, Day of Surgery (Day of Procedure) lidocaine (XYLOCAINE) 10 mg/mL (1 %) injection 3 mg 3 mg (0.3 mL), Subcutaneous, ONCE PRN, 1 dose, Starting on Sun12/12/17 at 0910, Until Sun12/12/17 at 1159, for discomfort with PIV insertion, Day of Surgery (Day of Procedure), Routine sodium chloride 0.9 % flush 5-20 mL 5-20 mL, Intravenous, EVERY 1 MIN PRN, Starting on Sun12/12/17 at 0910, Until Sun12/12/17 at 1159, flush, Flush pertains to all indwelling lines. Flush per protocol found in the job aid using the link provided on this medication record., Day of Surgery (Day of Procedure), Routine documented in this encounter Active and Recently Administered Medications Times are shown in EDT. Scheduled Medication Order 12/10/2017 12/11/2017 12/12/2017 acetaminophen (TYLENOL) tablet 1,000 mg 1,000 mg, Oral, ONCE, 1 dose, On Sun12/12/17 at 0930, Administer on arrival in Same Day Program, Day of Surgery (Day of Procedure), Routine 929 (Due) ceFAZolin (ANCEF) 2g in dextrose 5% 100 mL 2 g, Intravenous, EVERY 3 HOURS, 1 dose, First dose on Sun12/12/17 at 0930, Administer over 30 Minutes, Redose after 3 hours., Intra-Operative (Intra-Procedure), Indication for (Active or Suspected): Prophylaxis 929 (Due) celecoxib (CeleBREX) capsule 400 mg 400 mg, Oral, ONCE, 1 dose, On Sun12/12/17 at 0930, Administer on arrival to Same Day Program, Day of Surgery (Day of Procedure), Routine 929 (Due) gabapentin (NEURONTIN) capsule 300 mg 300 mg, Oral, ONCE, 1 dose, On Sun12/12/17 at 0930, Administer on arrival in Same Day Program, Day of Surgery (Day of Procedure), Routine 929 (Due) tranexamic acid (CYKLOKAPRON) 1,652 mg in sodium chloride 0.9% 116.52 mL 1,652 mg (rounded from 1,651.5 mg = 15 mg/kg/dose ? 110.1 kg), Intravenous, ONCE, 1 dose, On Sun12/12/17 at 0930, Administer over 30 Minutes, Day of Surgery (Day of Procedure) 30 (Due) Continuous Medication Order 12/10/2017 12/11/201712/1212/12/2017 lactated Ringers infusion 1,000 mL 1,000 mL, at 100 mL/hr, Intravenous, CONTINUOUS, Starting on Sun12/12/17 at 0930, Until Sun12/12/17 at 1159, Day of Surgery (Day of Procedure) 0930 (Due) PRN Medication Order 12/10/2017 12/11/2017 12/12/2017 lidocaine (XYLOCAINE) 10 mg/mL (1 %) injection 3 mg 3 mg (0.3 mL), Subcutaneous, ONCE PRN, 1 dose, Starting on Sun12/12/17 at 0910, Until Sun12/12/17 at 1159, for discomfort with PIV insertion, Day of Surgery (Day of Procedure), Routine sodium chloride 0.9 % flush 5-20 mL 5-20 mL, Intravenous, EVERY 1 MIN PRN, Starting on Sun12/12/17 at 0910, Until Sun12/12/17 at 1159, flush, Flush pertains to all indwelling lines. Flush per protocol found in the job aid using the link provided on this medication record., Day of Surgery (Day of Procedure), Routine documented in this encounter Care Teams Implementation Coordinator Relationship Specialty Start Date End Date Dandy Driscoll APRN [address] [place] [address] [place] [phone] PCP - General Family Medicine 01/20/16 documented as of this encounter
--- OUTSIDE RECORDS SUMMARY | 2024-02-27 19:36 | XMS_ITS | Encounter Summary ---
[place] [address] Care Team Providers Care Credit Verifier Name Role Phone Dandy Driscoll APRN Primary Care Provider [phone] Reason for Visit * Reason Onset Date Comments Pre Procedure Call 12/12/2017 Encounter Details Date Type Department Care Team (Late st Contact Info) Description 12/12/2017 Telephone [place] [phone] Patrick Dumont MD Pre Procedure Call Social [...] * Telephone Encounter - Asha Epperson - 01/10/2018 4:43 PM EDT I called and left a message for patient to call [phone] directly and schedule surgery with Dr. Dumont on 01/30/18. * Telephone Encounter - Nannette Sarabia - 12/12/2017 3:42 PM EDT I called and left a message for patient to call [phone] directly and schedule surgery with Dr. DUMONT,NEEDS TO BE when her scrapes are healed. documented in this encounter Plan of Treatment Upcoming Encounters Date Type Department Care Team (Late st Contact Info) Description 03/04/2024 12:00 PM EST Office Visit [place] [phone] Jordyn Francisco MD [facility] OBSTETRICS [place] [address] documented as of this encounter Visit Diagnoses Not on filedocumented in this encounter Care Teams Credit Verifier Relationship Specialty Start Date End Date Dandy Driscoll APRN [address] [place] [address] SHELLI Reich [phone] PCP - General Family Medicine 01/20/16 documented as of this encounter
--- OUTSIDE RECORDS SUMMARY | 2024-02-27 19:36 | XMS_ITS | Encounter Summary ---
[place] [address] Care Team Providers Care Substation Operator Transforming Name Role Phone Dandy Driscoll APRN Primary Care Provider [phone] Reason for Referral * Physical Therapy (Routine) - Specialty Diagnoses / Procedures Referred By Tiffanie foster Referred To Contact Physical Therapy Diagnoses Primary osteoarthritis of left hip Status post total replacement of left hip Mckayla Pruitt APRN [facility] [place] [address] Referral ID Status Reason Start Date Expiration Date V isits Requested Visits Authorized [id number] Evaluate and Treat 02/15/2018 08/14/2018 12 12 Reason for Visit * Auth/Cert Specialty Diagnoses / Procedures Referred By Tiffanie foster Referred To Contact Diagnoses Primary osteoarthritis of left hip left hip oa . Procedures PRO TOTAL HIP ARTHROPLASTY PRG RADEX HIP UNILATERAL WITH PELVIS MINIMUM 4 VIEWS @TOTAL HIP ARTHROPLASTY, ANTERIOR APPROACH (WRVU 20.72) HIP INTRAOP RADIOLOGIC EXAMINATION, UNILATERAL, W PELVIS; 4+ VIEWS (WRVU 0.27) MODIFIER CORAIL FEMORAL STEM DEPUY MODIFIER PINNACLE ACETABULUM DEPUY Referral ID Status Reason Start Date Expiration Date Visits Re quested Visits Authorized [id number] 1 1 Encounter Details Date Type Department Care Team (Latest Contact Info) Description 02/13/2018 9:13 AM EST - 02/15/2018 4:03 PM EST Hospital Encounter [address] [place] [id number] Patrick Dumont MD Primary osteoarthritis of left hip; Status post total replacement of left hip Discharge Disposition: Home with [facility]NA Social History Tobacco Use Types Packs/Day Years [...] Sign Reading Time Taken Comments Blood Pressure 121/57 02/15/2018 8:00 AM EST Pulse 74 02/15/2018 9:20 AM EST Temperature 36.8 ??C (98.2 ??F) 02/15/2018 1 2:17 PM EST Respiratory Rate 18 02/15/2018 12:1 7 PM EST Oxygen Saturation 94% 02/15/2018 9:20 AM EST Inhaled Oxygen Concentration - - Weight 107.7 kg (237 lb 6.4 oz) 02/13/2018 9:38 AM EST Height 157.5 cm (5' 2) 02/13/2018 9:38 AM EST Body Mass Index 43.42 02/13/2018 9:38 AM EST documented in this encounter Discharge Summaries * Mckayla Pruitt P, SENIOR CARE PROVIDER - 02/15/2018 1:22 PM EST Images from the original note were not included. Discharge Summary Patient Name: Stacy Knight Patient Age: 67 y.o. Language: Tamazight Race: White Ethnicity: Not nor Admit date: 02/13/2018 Discharge date and time: 02/15/2018 Attending Physician: Patrick Dumont MD Discharge Physician: Patrick Dumont MD Follow-up Recommendations for Providers: See discharge instructions for additional details. Future Appointments Date Time Provider Department Center 03/14/2018 1:[address] [facility] DX ROOM 3 [facility] 03/14/2018 2:10 PM Patrick Dumont MD [facility] [address] [place] [address] Inpatient Provider Contact Information: Patrick Dumont MD Orthopedics: [phone] After hours and weekends, call [facility] Merchandising Professor, , and have the Orthopedic resident paged. Discharge Diagnoses (Hospital Problems) and Secondary Diagnoses (Chronic Problems): Active Hospital Problems Diagnosis ??? 02/13/2018 S/P left total hip arthroplasty (Dr. Dumont) ??? Morbid obesity with BMI of 40.0-44.9, adult ??? Primary osteoarthritis of left hip Resolved Hospital Problems No resolved problems to display. Active Non-Hospital Problems Diagnosis ??? Pain in left hip ??? History of total right knee replacement, R TKA performed in 2001 ??? Tibial component revision L knee (11/11/2012, Bhavin) ??? Impaired renal function Operations/Major Procedures: 02/13/2018 Surgeon(s) and Role: Surgeon: Patrick Dumont MD Field Service Engineer: Norman Olivas MD, Mao Hernández MD Procedure(s): LEFT TOTAL HIP ARTHROPLASTY, ANTERIOR APPROACH HIP INTRAOP RADIOLOGIC EXAMINATION, UNILATERAL, W PELVIS; 4+ VIEWS MODIFIER CORAIL FEMORAL STEM DEPUY MODIFIER PINNACLE ACETABULUM DEPUY Findings: Significant femoral and acetabular osteoarthritic changes. Components were well positioned. Small calcar fractures appreciated, wired and stable. Stability testing reveled stable construct without impingement within physiologic range of motion. History of Presentation: Stacy Knight is a 67 y.o. female with left hip osteoarthritis. After exhausting conservative measures, the patient elected to proceed with total hip arthroplasty. The risks and benefits of this procedure were reviewed in depth and patient received medical clearance prior to procedure. Hospital Course: The patient was admitted via Same Day Surgery for the above operation. DVT prophylaxis was: Entericcoated Aspirin 81 mg po bid X 30 days. Patient began rehab on POD#1 for weight bearing as toleratedof left leg and reinforcement of the standard ENA Precautions. The patient was voiding spontaneously without difficulty. The left hip silver Mepilex dressing to remain in place 7 days, was inspected on POD#2 and was dry and intact. Pain was well controlled with oral pain medications. Patient did have a bowel movement prior to discharge and was passing flatus and was taking a diet without difficulty. By POD#2 the patient was medically stable and was cleared for safe discharge to home per PT. Vital Signs at Discharge: Weight: Wt Readings from Last 1 Encounters: 02/13/18 107.7 kg (237 lb 6.4 oz) Height: Ht Readings from Last 1 Encounters: 02/13/18 157.5 cm (5' 2) HC: HC Readings from Last 1 Encounters: No data found for HC BMI: Body mass index is 43.42 kg/m??. Last value Range last 24 hrs Temperature Temp: 36.8 ??C (98.2 ??F) Temp: [36.8 ??C (98.2 ??F)-37.3 ??C (99.1 ??F)] Heart Rate Heart Rate: 74 Heart Rate: -- Blood Pressure BP: 121/57 BP: (119-138)/(57-78) Respiratory Rate Resp: 18 Resp: [16-18] SpO2 SpO2: 94 % SpO2: [94 %] Art BP BP (Arterial Line): -- Functional and Cognitive Status: Patient mobilizing with a walker, cognitively intact at baseline mental status at time of discharge. Important Lab Data: Last 3 wbc, hgb, hct plt Recent Labs 02/15/18 0413 02/14/18 0404 11/15/17 1208 WBC 15.5* 13.0* 7.4 HGB 11.0* 11.0* 13.4 HCT 33.4* 33.3* 41.3 PLATELET 260 218 257 Last 3 Lytes Recent Labs 02/15/18 0413 02/14/18 0404 11/15/17 1208 NA 139 139 143 K 4.6 4.4 4.0 CL 98 101 101 CO2 27 25 28 BUN 18 11 13 CREATININE 0.68* 0.55* 0.67* Studies: Xray Pelvis (generic) Result Date: 02/13/2018 EXAMINATION: XR PELVIS (GENERIC) CLINICAL HISTORY: s/p L ENA. Thanks! TECHNIQUE: Portable low AP view the pelvis COMPARISON: Pelvic and left hip radiograph 08/09/2017 FINDINGS: Status post left total hip arthroplasty with a screw fixated acetabular component and a cerclage wire around the proximal femoral stem. No immediate hardware complications are apparent. There is persistent joint space narrowing of the right hip with subchondral sclerosis and marginal osteophyte formation. 1. Status post left total hip arthroplasty with no immediate hardware complications. Electronicallysigned by: Charo [facility], at 02/13/2018 5:05 PM Pending Studies and Lab Data at Discharge: None Transfusions: No Discharge Conditions/Prognosis: Stable, awake, and alert. Mobilizing as noted above, pain controlled on oral medications. Discharge to: Home with out-patient physical therapy. Updated Allergies/ADRs: Allergies Allergen Reactions ??? Darvon [Propoxyphene] Patient can't remember what happened exactly. ??? Isopropyl Alcohol Rash ??? Meperidine Hcl Other (See Comments) Very Loopy ??? Penicillins Other (See Comments) SWELLS UP ??? Propoxyphene Hcl Itching Immunizations Given this Hospitalization: Immunization History Administered Date(s) Administered ??? Influenza Vaccine, Unspecified Formulation 12/16/2016 ??? Influenza Vaccine, Whole 12/29/2008 Discharge Medications: Your Medications New Medications Dose Details acetaminophen 500 mg Tab Commonly known as: TYLENOL Take 2 tablets by mouth every 8 hours. Continue the Tylenol around the clock for 10 days after surgery, (02/23/2018). Then may take if needed per package insert. Do not take more than 3,000 mg of Tylenol in 24 hours. 1000 mg Refills: 0 aspirin 81 mg Tbec Take 1 tablet by mouth 2 times daily. Take with food for 30 days after surgery. Last day = 03/15/2018. 81 mg Refills: 0 gabapentin 300 mg Cap Commonly known as: NEURONTIN Take 1 capsule by mouth nightly. Take nightly before bed for sleep for 4 weeks after surgery. 300 mg Quantity: 30 capsule Refills: 0 omeprazole 20 mg Cpdr Commonly known as: PriLOSEC Take 1 capsule by mouth daily. Take daily while taking naproxen 20 mg Quantity: 42 capsule Refills: 0 oxyCODONE 5 mg Tab Commonly known as: ROXICODONE Take 1-3 tablets by mouth every 4 hours as needed for Pain. 5-15 mg Quantity: 50 tablet Refills: 0 polyethylene glycol 17 gram Pwpk Commonly known as: MIRALAX Take 17 g by mouth 2 times daily. 17 g Refills: 0 senna-docusate 8.6-50 mg Tab Commonly known as: PERICOLACE Take 2 tablets by mouth 2 times daily. 2 tablet Refills: 0 Continued medications, unchanged Dose Details buPROPion 150 mg Tablet Extended Release 24 hr Commonly known as: WELLBUTRIN XL daily. Refills: 12 Cranberry 1,000 mg Cap Take by mouth 2 times daily. Refills: 0 cyclobenzaprine 10 mg Tab Commonly known as: FLEXERIL Take 5 mg by mouth 3 times daily as needed. 5 mg Refills: 0 * DIETARY SUPPLEMENT ORAL Take by mouth. Indications: Carb Blcoker; White Kidney Marquez Refills: 0 * DIETARY SUPPLEMENT ORAL Take by mouth. Indications: Phytoplankton blend Refills: 0 * Dietary Supplement Cap Take by mouth. Indications: Bladder Support Refills: 0 fluticasone-salmeterol 500-50 mcg/dose Dsdv Commonly known as: ADVAIR Inhale 1 puff into the lungs 2 times daily. 1 puff Refills: 0 loperamide 2 mg Tab Commonly known as: IMODIUM A-D Take by mouth 4 times daily as needed for Diarrhea. Maximum 16 mg in 24 hours Refills: 0 METAMUCIL (SUGAR) ORAL Take by mouth. Refills: 0 naproxen 250 mg Tab Commonly known as: NAPROSYN Take 250 mg by mouth 2 times daily (with meals). 250 mg Refills: 0 NUTRITIONAL SUPPLEMENT ORAL Take by mouth. Indications: Mind over matter Brain Formula Refills: 0 verapamil 240 mg Tbsr Commonly known as: CALAN-SR Take 240 mg by mouth nightly. 240 mg Refills: 0 XOPENEX HFA 45 mcg/actuation Hfaa Inhale 2 puffs into the lungs every 4 hours as needed. Generic drug: levalbuterol 2 puff Refills: 0 ZIM'S MAX-FREEZE (LIDO-MENTHL) TOP Apply topically. Refills: 0 * This list has 3 medication(s) that are the same as other medications prescribed for you. Read thedirections carefully, and ask your doctor or other care provider to review them with you. STOPPED Medications cephalexin 500 mg Cap Commonly known as: KEFLEX traMADol 50 mg Tab Commonly known as: ULTRAM fozk-nsvn-jhb-vsg-gyu-zxqt-hor [phone] mg Tab Smoking Status at Discharge: Social History Tobacco Use Smoking Status Former Smoker ??? Packs/day: 0.00 ??? Years: 0.50 ??? Pack years: 0.00 ??? Types: Cigarettes ??? Last attempt to quit: 1979 ??? Years since quittin.8 Smokeless Tobacco Never Used Instructions Given to Patient at Discharge: Patient Instructions Activity: 1. Your weight-bearing status is - weight bearing as tolerated of left leg. 2. Remember to use a walker or crutches at all times for balance and protection. [...] for 30 days. After your dose on 03/15/2018 stop the Aspirin, unless you are told otherwise by your Orthopedic surgeon. Take this medication with food or large amounts (240 mL) of water or milk tominimize GI irritation. Diet: Resume your usual diet but increase your intake of fluids and fiber while you are on narcoticpain meds to prevent constipation. Driving: None until [...] bowel movement. You can also take an itsb-gqq-nomtqvi medication, Miralax if needed to combat constipation. 2. If you need a renewal on your narcotic pain medication, you need to give the Orthopedic clinic enough time to process your request. This can take up to three days, so plan accordingly. 3. Continue acetaminophen (Tylenol) 1,000mg every 8 hours around the clock until 02/23/2018 (for ten days after your surgery). This can be effective in controlling pain along with your other medications. After that you can take Tylenol as needed per package insert. Do not take more than 3,000mg of a cetaminophen in a 24 hour period. 4. You have been discharged on a short acting narcotic, oxycodone. You will be on this medication for a limited period of time only. Take only enough pain medication to control your pain. As your pain lessens, taper down and off this medication as tolerated. 5. You are being discharged on your usual home naproxen (Aleve). This medication is a type of nonsteroidal anti-inflammatory (NSAID). This will help with your pain and inflammation. Take this twice aday for the next 6 weeks. Your last dose will be on 03/27/2018. If you no longer are requiring the narcotic pain medication you may change the way you take the prescribed naproxen and instead take twice a day as needed. 6. You are being discharged on a proton pump inhibitor (Prilosec). This will decrease stomach irritation that may be caused by NSAIDs-naproxen. Take this daily for the next 6 weeks while you are on the naproxen. 7. You are being discharged on gabapentin [...] 1. You do NOT have any external hamilton or sutures in place. Your sutures are internal and will be absorbed over time. 2. You have a Mepilex dressing in place. Do not lift the edge of the Mepilex dressing to inspect the incision, it will not re-adhere. Remove your operative dressing 7 days after your surgery (02/20/2018). When it is removed you can leave the incision open to air or cover it with a light dressing. 3. If you have lots of drainage when you get home (and it is before 02/20/2018), remove the operative dressing and replace it with dry sterile gauze. Continue with daily dressing changes (and as needed) until the drainage stops, then remove the dressing and leave the incision open to air or lightlycovered. Misc: Remember that ICE and elevation are very important after surgery to help decrease swelling and control pain. Use ICE for 20-30 minutes at a time and keep your leg elevated as much as possible. Call your doctor ([phone]) if you develop: 1. Fever greater than 100.5 2. Severe nausea or vomiting 3. Increasing pain that is not controlled by pain medications 4. Increasing redness, swelling, or drainage from incisions 5. Change in sensation FOLLOW-UP APPOINTMENTS: 1. You will have follow-up appointments at [facility] as indicated below in Future Appointment and Orders. 2. You will need to have x-rays prior to your follow-up appointment on 03/14/2018. Please come to Radiology, desk 3T, 1 hour BEFORE that appointment for these x-rays. Future Appointments Date Time Provider Department Center 03/14/2018 1:[address] [facility] DX ROOM 3 Xray [facility] 03/14/2018 2:10 PM Patrick Dumont MD [facility] [address] [place] [address] If you have questions or concerns: Sunday through Sunday, 8 AM - 5 PM, please call Dr. Patrick Dumont MD's office at . If it is after 5 PM, the weekend, or holidays, please call and ask to speak with theOropedic resident on-call. General Instructions None Future Appointments and Orders Future Appointments and Orders Future Appointments Provider Department Dept Phone 03/14/2018 1:[address] [facility] DX ROOM 3 [facility]Ray at [facility] Arrive at: Risk Management Specialist Area 3T [phone] Please go to Risk Management Specialist Area 3T ([facility] Location). 03/14/2018 2:10 PM Patrick Dumont MD [facility]opaed[facility] at [facility] Arrive at: Risk Management Specialist Area [phone] Future Orders Complete By Expires Referral to Physical Therapy [REF87 Custom] As directed Process Instructions: Note: Please indicate in the comments any additional Instructions, Precautions or Contra-indications. Scheduling Instructions: Comments: Standard Hip Precautions: Full WBAT No dislocation precautions May actively abduct Use a broad based stance when transitioning from sitting to standing and standing to sitting, with feet and knees wider than hips Questions: Reason for PT: 02/13/2018 left total hip arthroplasty Specialty Program Eval: Modalities could include: Treatment Focus: Walker standard [EQ135 Custom] As directed Process Instructions: Scheduling Instructions: Comments: Stacy Knight [address] [facility] [phone] (home) Telephone Information: Diagnosis:Left Hip replacement with Unsteady gait Patient's: Hgt: 5'2 Wgt: 237 VENDOR: [facility] Ordering: Front wheel walker Deliver to pt's hospital room #: 311 A Questions: Vendor Name/Contact information: [facility] 107.7 kg, 157.5 cm, for unsteady gait s/p left total hiparthroplasty 02/13/2018 Primary Care Provider: Dandy Driscoll APRN [phone] Discharge References/Attachments None documented in this encounter Discharge Instructions * Patient Instructions* Mckayla Pruitt APRN - 02/15/2018 1:13 PM EST Activity: 1. Your weight-bearing status is - weight bearing as tolerated of left leg. 2. Remember to use a walker or crutches at all times for balance and protection. [...] for 30 days. After your dose on 03/15/2018 stop the Aspirin, unless you are told otherwise by your Orthopedic surgeon. Take this medication with food or large amounts (240 mL) of water or milk tominimize GI irritation. Diet: Resume your usual diet but increase your intake of fluids and fiber while you are on narcoticpain meds to prevent constipation. Driving: None until [...] bowel movement. You can also take an sooc-crh-rlszfwt medication, Miralax if needed to combat constipation. 2. If you need a renewal on your narcotic pain medication, you need to give the Orthopedic clinic enough time to process your request. This can take up to three days, so plan accordingly. 3. Continue acetaminophen (Tylenol) 1,000mg every 8 hours around the clock until 02/23/2018 (for ten days after your surgery). This can be effective in controlling pain along with your other medications. After that you can take Tylenol as needed per package insert. Do not take more than 3,000mg of a cetaminophen in a 24 hour period. 4. You have been discharged on a short acting narcotic, oxycodone. You will be on this medication for a limited period of time only. Take only enough pain medication to control your pain. As your pain lessens, taper down and off this medication as tolerated. 5. You are being discharged on your usual home naproxen (Aleve). This medication is a type of nonsteroidal anti-inflammatory (NSAID). This will help with your pain and inflammation. Take this twice aday for the next 6 weeks. Your last dose will be on 03/27/2018. If you no longer are requiring the narcotic pain medication you may change the way you take the prescribed naproxen and instead take twice a day as needed. 6. You are being discharged on a proton pump inhibitor (Prilosec). This will decrease stomach irritation that may be caused by NSAIDs-naproxen. Take this daily for the next 6 weeks while you are on the naproxen. 7. You are being discharged on gabapentin [...] 1. You do NOT have any external hamilton or sutures in place. Your sutures are internal and will be absorbed over time. 2. You have a Mepilex dressing in place. Do not lift the edge of the Mepilex dressing to inspect the incision, it will not re-adhere. Remove your operative dressing 7 days after your surgery (02/20/2018). When it is removed you can leave the incision open to air or cover it with a light dressing. 3. If you have lots of drainage when you get home (and it is before 02/20/2018), remove the operative dressing and replace it with dry sterile gauze. Continue with daily dressing changes (and as needed) until the drainage stops, then remove the dressing and leave the incision open to air or lightlycovered. Misc: Remember that ICE and elevation are very important after surgery to help decrease swelling and control pain. Use ICE for 20-30 minutes at a time and keep your leg elevated as much as possible. Call your doctor ([phone]) if you develop: 1. Fever greater than 100.5 2. Severe nausea or vomiting 3. Increasing pain that is not controlled by pain medications 4. Increasing redness, swelling, or drainage from incisions 5. Change in sensation FOLLOW-UP APPOINTMENTS: 1. You will have follow-up appointments at [facility] as indicated below in Future Appointment and Orders. 2. You will need to have x-rays prior to your follow-up appointment on 03/14/2018. Please come to Radiology, desk 3T, 1 hour BEFORE that appointment for these x-rays. Future Appointments Date Time Provider Department Center 03/14/2018 1:[address] [facility] DX ROOM 3 [facility] 03/14/2018 2:10 PM Patrick Dumont MD [facility] If you have questions or concerns: Sunday through Sunday, 8 AM - 5 PM, please call Dr. Patrick Dumont MD's office at . If it is after 5 PM, the weekend, or holidays, please call and ask to speak with theOropedic resident on-call. documented in this encounter Medications [...] the lungs every 4 hours as needed. oxyCODONE (ROXICODONE) 5 mg Tablet Take 1-3 tablets by mouth every 4 hours as needed for Pain. 50 tablet 02/15/2018 02/16/2018 acetaminophen (TYLENOL) 500 mg Tablet Take 2 tablets by mouth every 8 hours. Continue the Tylenol around the clock for 10 days after surgery, (02/23/2018). Then may take if needed per package insert. Do not take more than 3,000 mg of Tylenol in 24 hours. 02/15/2018 02/16/2018 gabapentin (NEURONTIN) 300 mg Capsule Take 1 capsule by mouth nightly. Take nightly before bed for sleep for 4 weeks after surgery. 30 capsule 02/15/2018 02/16/2018 omeprazole (PRILOSEC) 20 mg Capsule, Delayed Release(E.C.) Take 1 capsule by mouth daily. Take daily while taking naproxen 42 capsule 02/15/2018 02/16/2018 polyethylene glycol (MIRALAX) 17 gram Powder in Packet Take 17 g by mouth 2 times daily. 02/15/2018 02/16/2018 senna-docusate (PERICOLACE) 8.6-50 mg Tablet Take 2 tablets by mouth 2 times daily. 02/15/2018 02/16/2018 aspirin 81 mg Tablet, Delayed Release (E.C.) Take 1 tablet by mouth 2 times daily. Take with food for 30 days after surgery. Last day = 03/15/2018. 02/15/2018 02/16/2018 loperamide (IMODIUM A-D) 2 mg Tablet Take 4 mg by mouth 4 times daily as needed for Diarrhea. Maximum 16 mg in 24 hours 12/04/2023 LIDOCAINE/MENTHOL (ZIM'S MAX-FREEZE, LIDO-MENTHL, TOP) Apply topically. 2017 LACTOSE-REDUCED FOOD (NUTRITIONAL SUPPLEMENT ORAL)Indications:Min d over matter Brain Formula Take by mouth. Indications: Mind over matter Brain Formula 01/26/2021 DIETARY SUPPLEMENT ORALIndications:Carb Blcoker; White Kidney Marquez Take by mouth. Indications: Carb Blcoker; White Kidney Marquez 11/05/2020 DIETARY SUPPLEMENT ORALIndications:Phyt oplankton blend Take by mouth. Indications: Phytoplankton blend 11/05/2020 Dietary Supplement CapsuleIndications:B ladder Support Take by mouth. Indications: Bladder Support 03/07/2018 naproxen (NAPROSYN) 250 mg tablet Take 250 mg by mouth 2 times daily (with meals). 11/05/2020 verapamil (CALAN-SR) 240 mg CR tablet Take 240 mg by mouth nightly. 11/05/2020 fluticasone-salmeter ol (ADVAIR) 500-50 mcg/dose diskus inhaler Inhale 1 puff into the lungs 2 times daily. 05/08/2023 cyclobenzaprine (FLEXERIL) 10 mg tablet Take 5 mg by mouth 3 times daily as needed. 1 documented as of this encounter Progress Notes * Tamera Raygoza RN - 02/15/2018 3:52 PM EST Pt d/c to home accompanied by . Avs reviewed, Iv d/c. All belongings with pt. * Norman Olivas - 02/15/2018 6:23 AM EST ORTHOPAEDIC SURGERY INPATIENT PROGRESS NOTE Patient Name: Stacy Knight Age: 67 y.o. Surgery/Issue: Left Total Hip Arthroplasty Attending: Dr. Dumont Date of surgery: 02/13/2018 SUBJECTIVE / INTERVAL HISTORY: No acute events overnight. Afebrile vital signs stable. One episode of emesis this morning. Patientreports feeling nauseous at this time, has just received anti-medic medication. Patient reports wallace had several episodes of emesis yesterday, and is concerned she might have acquired a stomach bug. Otherwise she reports she is doing well. She reports she has been mobilized with physical therapy and feels she is making good progress. Pain well-controlled. FOCUSED REVIEW OF SYSTEMS: as above. Active Hospital Problems Diagnosis ??? 02/13/2018 S/P left total hip arthroplasty (Dr. Dumont) ??? Morbid obesity with BMI of 40.0-44.9, adult ??? Primary osteoarthritis of left hip Resolved Hospital Problems No resolved problems to display. Active Non-Hospital Problems Diagnosis ??? Pain in left hip ??? History of total right knee replacement, R TKA performed in 2001 ??? Tibial component revision L knee (11/11/2012, Bhavin) ??? Impaired renal function MEDICATIONS: ??? BUpivacaine-EPINEPHrine 0.25 %-1:200,000 injection ??? buPROPion (WELLBUTRIN XL) XL tablet 150 mg ??? verapamil (CALAN-SR) CR tablet 240 mg ??? sodium chloride 0.9 % flush 5 mL ??? sodium chloride 0.9 % flush 5-20 mL ??? lidocaine (XYLOCAINE) 10 mg/mL (1 %) injection 3 mg ??? polyethylene glycol (MIRALAX) packet 17 g ??? senna-docusate (PERICOLACE) 8.6-50 mg per tablet 2 tablet ??? lactulose (CHRONULAC) 20 gram/30 mL oral solution 20-40 g ??? bisacodyl (DULCOLAX) EC tablet 10 mg ??? bisacodyl (DULCOLAX) suppository 10 mg ??? acetaminophen (TYLENOL) tablet 1,000 mg ??? [COMPLETED] gabapentin (NEURONTIN) capsule 600 mg FOLLOWED BY gabapentin (NEURONTIN) capsule 300 mg ??? ketorolac (TORADOL) injection 15 mg ??? celecoxib (CeleBREX) capsule 200 mg ??? pantoprazole (PROTONIX) tablet 20 mg ??? oxyCODONE (ROXICODONE) immediate release tablet 5-15 mg ??? ondansetron (ZOFRAN) tablet 4 mg OR ondansetron (ZOFRAN) injection 4 mg ??? aspirin EC tablet 81 mg ??? albuterol 90 mcg/actuation inhaler 2 puff ??? budesonide-formoterol (SYMBICORT) 160-4.5 mcg/actuation inhaler 2 Inhalation OBJECTIVE: Temp: [36.5 ??C (97.7 ??F)-37 ??C (98.6 ??F)] Resp: [16-18] BP: (117-138)/(74-78) Intake/Output Summary (Last 24 hours) at 02/15/2018 0623 Last data filed at 02/15/2018 0600 Gross per 24 hour Intake 1558 ml Output 1200 ml Net 358 ml Body mass index is 43.42 kg/m??. PE: General: NAD, awake but sleepy CV: RRR assessed peripherally Resp: Breathing comfortably on RA LLE: Dressing c/d/i. Motor intact to EHL, FHL, TA. Sensation intact in foot/calf/thigh. Brisk capillary refill distally. Lab Results Component Value Date NA 139 02/15/2018 K 4.6 02/15/2018 CL 98 02/15/2018 CO2 27 02/15/2018 BUN 18 02/15/2018 CREATININE 0.68 (L) 02/15/2018 GLUCOSE 158 02/15/2018 CALCIUM 9.3 02/15/2018 Lab Results Component Value Date WBC 15.5 (H) 02/15/2018 HGB 11.0 (L) 02/15/2018 HCT 33.4 (L) 02/15/2018 MCV 95.7 (H) 02/15/2018 PLATELET 260 02/15/2018 Lab Results Component Value Date INR 1.0 11/15/2017 Imaging: AP Pelvis The left hip is reduced. There is no evidence of intra-op fracture. ASSESSMENT / PLAN: Stacy Knight is a 67 y.o. female 2 Days Post-Op s/p left ENA, progressing well with stable vitals. Plan to mobilize with physical therapy this morning. Hgb this AM 11.0 which likely represents a combination of acute surgical blood loss anemia and hemodilution - patient asymptomatic, will continue to monitor. Activity: WBAT, standard precuations Closure: Resorbable sutures Dressing: Mepilex Ag x 7 days, followed by another mepilex Ag for 7 more days Drain: None Anticoagulation: ASA 81mg BID for 30 days Antibiotics: Periop ancef Consults: PT/OT Dispo:Home vs rehab per PT Follow-up: 03/14 (scheduled) NORMAN OLIVAS MD 02/15/2018 Future Appointments Date Time Provider Department Center 03/14/2018 1:[address] [facility] DX ROOM 3 [facility] 03/14/2018 2:10 PM Patrick Dumont MD [facility] * Mechelle Knight RN - 02/14/2018 3:00 PM EST Pt is refusing to go to SNF for rehab . CM let patient know she needs to work hard with PT so she can prove she is a safe Discharge to home. Will check with PT in am . 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 A letter describing our affiliations was reviewed with them and they were educated about their right to choose where referrals are placed. Patient requests referral to Ortho care Expected date of discharge: 02/14/18 Pt has appt. with [facility] in [facility] for Sunday 8:30 am Referral routed to the Dog Hair [employer] for matching with agency/vendor and to provide any required information. Mechelle Knight RNCM #[id number] * Norman Olivas - 02/14/2018 6:23 AM EST ORTHOPAEDIC SURGERY INPATIENT PROGRESS NOTE Patient Name: Stacy Knight Age: 67 y.o. Surgery/Issue: Left Total Hip Arthroplasty Attending: Dr. Dumont Date of surgery: 02/13/2018 SUBJECTIVE / INTERVAL HISTORY: No acute events overnight. Afebrile vital signs stable. Patient has stood for transfers to the bathroom in her room. Having some pain this morning, but improving with current pain regimen. Denies numbness or tingling in the left lower extremity. FOCUSED REVIEW OF SYSTEMS: as above. Active Hospital Problems Diagnosis ??? Primary osteoarthritis of left hip Resolved Hospital Problems No resolved problems to display. Active Non-Hospital Problems Diagnosis ??? Pain in left hip ??? History of total right knee replacement, R TKA performed in 2001 ??? Tibial component revision L knee (11/11/2012, Bhavin) ??? Impaired renal function MEDICATIONS: ??? BUpivacaine-EPINEPHrine 0.25 %-1:200,000 injection ??? buPROPion (WELLBUTRIN XL) XL tablet 150 mg ??? verapamil (CALAN-SR) CR tablet 240 mg ??? sodium chloride 0.9 % flush 5 mL ??? sodium chloride 0.9 % flush 5-20 mL ??? lidocaine (XYLOCAINE) 10 mg/mL (1 %) injection 3 mg ??? polyethylene glycol (MIRALAX) packet 17 g ??? senna-docusate (PERICOLACE) 8.6-50 mg per tablet 2 tablet ??? lactulose (CHRONULAC) 20 gram/30 mL oral solution 20-40 g ??? bisacodyl (DULCOLAX) EC tablet 10 mg ??? bisacodyl (DULCOLAX) suppository 10 mg ??? acetaminophen (TYLENOL) tablet 1,000 mg ??? gabapentin (NEURONTIN) capsule 600 mg FOLLOWED BY [START ON 02/15/2018] gabapentin (NEURONTIN) capsule 300 mg ??? ketorolac (TORADOL) injection 15 mg ??? celecoxib (CeleBREX) capsule 200 mg ??? dexamethasone (DECADRON) tablet 4 mg ??? pantoprazole (PROTONIX) tablet 20 mg ??? ceFAZolin (ANCEF) 1g in dextrose 5% 50mL ??? sodium chloride 0.9% infusion ??? oxyCODONE (ROXICODONE) immediate release tablet 5-15 mg ??? ondansetron (ZOFRAN) tablet 4 mg OR ondansetron (ZOFRAN) injection 4 mg ??? aspirin EC tablet 81 mg ??? albuterol 90 mcg/actuation inhaler 2 puff ??? budesonide-formoterol (SYMBICORT) 160-4.5 mcg/actuation inhaler 2 Inhalation ??? sodium chloride 0.9% 100 mL/hr (02/13/18 1742) OBJECTIVE: Temp: [36.4 ??C (97.5 ??F)-37 ??C (98.6 ??F)] Heart Rate: [69-87] Resp: [-] BP: (110-157)/(62-109) Intake/Output Summary (Last 24 hours) at 02/14/2018 06 Last data filed at 02/14/2018 0335 Gross per 24 hour Intake 1920 ml Output 450 ml Net 1470 ml Body mass index is 43.42 kg/m??. PE: General: NAD, awake but sleepy CV: RRR assessed peripherally Resp: Breathing comfortably on RA LLE: Dressing c/d/i. Motor intact to EHL, FHL, TA. Sensation intact in foot/calf/thigh. Brisk capillary refill distally. Lab Results Component Value Date NA 139 02/14/2018 K 4.4 02/14/2018 CL 101 02/14/2018 CO2 25 02/14/2018 BUN 11 02/14/2018 CREATININE 0.55 (L) 02/14/2018 GLUCOSE 174 02/14/2018 CALCIUM 8.1 (L) 02/14/2018 Lab Results Component Value Date WBC 13.0 (H) 02/14/2018 HGB 11.0 (L) 02/14/2018 HCT 33.3 (L) 02/14/2018 MCV 96.2 (H) 02/14/2018 PLATELET 218 02/14/2018 Lab Results Component Value Date INR 1.0 11/15/2017 Imaging: AP Pelvis The left hip is reduced. There is no evidence of intra-op fracture. ASSESSMENT / PLAN: Stacy Knight is a 67 y.o. female 1 Day Post-Op s/p left ENA, progressing well with stable vitals. Plan to mobilize with physical therapy this morning. Hgb this AM 11.0 which likely represents a combination of acute surgical blood loss anemia and hemodilution - patient asymptomatic, will continue to monitor. Activity: WBAT, standard precuations Closure: Resorbable sutures Dressing: Mepilex Ag x 7 days Drain: None Anticoagulation: ASA 81mg BID for 30 days Antibiotics: Periop ancef Consults: PT/OT Dispo:Home vs rehab per PT Follow-up: 03/14 (scheduled) NORMAN OLIVAS MD 02/14/2018 Future Appointments Date Time Provider Department Center 03/14/2018 1:[address] [facility] DX ROOM 3 [facility] X[facility] 03/14/2018 2:10 PM Patrick Dumont MD [facility] Associated attestation - Patrick Dumont MD - 02/14/2018 8:03 AM EST Patient seen and examined on rounds. Agree with resident note. In brief, doing well. Work with PT today. Patrick Dumont M.D. [place] Department of Orthopaedics * Ace Chaves MD - 02/13/2018 4:50 PM EST ORTHOPAEDIC SURGERY INPATIENT PROGRESS NOTE Patient Name: Stacy Knight Age: 67 y.o. Surgery/Issue: Left Total Hip Arthroplasty Attending: Dr. Dumont Date of surgery: 02/13/2018 SUBJECTIVE / INTERVAL HISTORY: Denies CP, SOB, nausea, vomiting, numbness/weakness. Pain well controlled. Very sleepy on examination. FOCUSED REVIEW OF SYSTEMS: as above. Active Hospital Problems Diagnosis ??? Primary osteoarthritis of left hip Resolved Hospital Problems No resolved problems to display. Active Non-Hospital Problems Diagnosis ??? Pain in left hip ??? History of total right knee replacement, R TKA performed in 2001 ??? Tibial component revision L knee (11/11/2012, Bhavin) ??? Impaired renal function MEDICATIONS: ??? BUpivacaine-EPINEPHrine 0.25 %-1:200,000 injection ??? buPROPion (WELLBUTRIN XL) XL tablet 150 mg ??? MEDICATION NONFORMULARY REQUEST 1 puff ??? MEDICATION NONFORMULARY REQUEST 2 Inhalation ??? verapamil (CALAN-SR) CR tablet 240 mg ??? sodium chloride 0.9 % flush 5 mL ??? sodium chloride 0.9 % flush 5-20 mL ??? lidocaine (XYLOCAINE) 10 mg/mL (1 %) injection 3 mg ??? polyethylene glycol (MIRALAX) packet 17 g ??? senna-docusate (PERICOLACE) 8.6-50 mg per tablet 2 tablet ??? lactulose (CHRONULAC) 20 gram/30 mL oral solution 20-40 g ??? bisacodyl (DULCOLAX) EC tablet 10 mg ??? bisacodyl (DULCOLAX) suppository 10 mg ??? acetaminophen (TYLENOL) tablet 1,000 mg ??? gabapentin (NEURONTIN) capsule 600 mg FOLLOWED BY [START ON 02/15/2018] gabapentin (NEURONTIN) capsule 300 mg ??? ketorolac (TORADOL) injection 15 mg ??? celecoxib (CeleBREX) capsule 200 mg ??? dexamethasone (DECADRON) tablet 4 mg ??? pantoprazole (PROTONIX) tablet 20 mg ??? ceFAZolin (ANCEF) 1g in dextrose 5% 50mL ??? sodium chloride 0.9% infusion ??? oxyCODONE (ROXICODONE) immediate release tablet 5-15 mg ??? ondansetron (ZOFRAN) tablet 4 mg OR ondansetron (ZOFRAN) injection 4 mg ??? aspirin EC tablet 81 mg ??? sodium chloride 0.9% OBJECTIVE: Temp: [36.4 ??C (97.5 ??F)-36.9 ??C (98.4 ??F)] Heart Rate: [69-87] Resp: [10-18] BP: (130-153)/(76-109) Intake/Output Summary (Last 24 hours) at 02/13/2018 1650 Last data filed at 02/13/2018 1403 Gross per 24 hour Intake 1000 ml Output -- Net 1000 ml Body mass index is 43.42 kg/m??. PE: General: NAD, awake but sleepy CV: RRR assessed peripherally Resp: Breathing comfortably on RA LLE: Dressing c/d/i. Motor intact to EHL, FHL, TA. Sensation intact in foot/calf/thigh. Brisk capillary refill distally. Lab Results Component Value Date NA 143 11/15/2017 K 4.0 11/15/2017 CL 101 11/15/2017 CO2 28 11/15/2017 BUN 13 11/15/2017 CREATININE 0.67 (L) 11/15/2017 GLUCOSE 86 11/15/2017 CALCIUM 9.4 11/15/2017 Lab Results Component Value Date WBC 7.4 11/15/2017 HGB 13.4 11/15/2017 HCT 41.3 11/15/2017 MCV 96.7 (H) 11/15/2017 PLATELET 257 11/15/2017 Lab Results Component Value Date INR 1.0 11/15/2017 Imaging: AP Pelvis The left hip is reduced. There is no evidence of intra-op fracture. ASSESSMENT / PLAN: Stacy Knight is a 67 y.o. female Day of Surgery s/p left ENA, progressing well with stable vitals. Activity: WBAT, standard precuations Closure: Resorbable sutures Dressing: Mepilex Ag x 7 days Drain: None Anticoagulation: ASA 81mg BID for 30 days Antibiotics: Periop ancef Consults: PT/OT Dispo:Home vs rehab per PT Follow-up: 03/14 (scheduled) Ace Chaves MD 02/13/2018 Future Appointments Date Time Provider Department Center 03/14/2018 1:[address] [facility] DX ROOM 3 Xray [facility] 03/14/2018 2:10 PM Patrick Dumont MD [facility] [address] [place] [address] CLIN * Ava Cota RN - 02/13/2018 4:35 PM EST Patient arrived to [facility] via bed from PACU s/p L ENA. Patient AOx 4 but very sleepy, easy to arouse, HRR, lung sounds clear but dim, hypo bs, lbm 02/12 with patient stating she has IBS when it comes, it comes quick. +csmt to all extremities. Dressing clean dry and intact. Pain 1/10 at this time.Patient oriented to room, call anderson to bedside. Will continue to monitor Ava Cota RN * Nora Corona RN - 02/13/2018 3:17 PM EST Pt incontinent of small amount of urine - complete linen change and vidhi care provided - repositioned for comfort - Bladder exam shows little to no urine residual /ds documented in this encounter H&P Notes * Patrick Dumont MD - 02/13/2018 10:06 AM EST The patient's history and physical exam have been reviewed and completed. There has been no interval change from that of the pre-operative history and physical exam done within the last 30 days. documented in this encounter Miscellaneous Notes * Plan of Care - [facility] PT - 02/15/2018 12:20 PM EST Physical Therapy Treatment Treatment Number PT: 2 Pertinent History of Current Problem: Pt is a 67 y/o female s/p L ENA Precautions/Restrictions: weight bearing, fall Precautions Comments: WBAT LLE; standard precautions Weight-Bearing Status Extremity Weight Bearing Status: left lower extremity Left Lower Extremity (Weight Bearing Status): weight-bearing as tolerated Assessment: Pt seen for progression of functional mobility. Pt demonstrated increased ambulation distance and stair negotiation after education and verbal cuing. Education provided on using wider walker for patient's girth in home. Has met inpatient therapy goals for discharge home with home PT. Please see the flow sheet below for patient details and mobility. Pt would benefit from ongoing physical therapy interventions. Staff Mobility Recommendations Independent with FWW Anticipated Discharge Disposition: home with assist, home with home health [facility] PT Pager: [phone] Inpatient Physical Therapy 02/15/18 1113 Rehab Evaluation Document Type therapy note (daily note) Total Evaluation Minutes, Physical Therapy 25 (gait x2) Patient Effort good Symptoms Noted During/After Treatment none General Information Patient Profile Review yes Patient/Family/Caregiver Comments/Observations I'll use the wider walker Pertinent History of Current Problem Pt is a 67 y/o female s/p L ENA Precautions/Restrictions weight bearing;fall Precautions Comments WBAT LLE; standard precautions Treatment Number PT 2 Left Lower Extremity (Weight Bearing Status) weight-bearing as tolerated Vital Signs O2 Flow Rate (L/min) 0 L/min O2 Device RA Pain Scale/Rating Pain Assessment Scale Numbers (Numeric Rating Pain Scale) Pain Level 1 Mobility Assessment/Training Additional Documentation Transfer Assessment/Treatment (Group);Gait Assessment/Treatment (Group);Stairs Assessment/Treatment (Group);Weight-Bearing Status (Group) Weight-Bearing Status Extremity Weight Bearing Status left lower extremity Transfer Assessment/Treatment Bed-Chair [place] (Transfers) supervision required [place] (Sit-Stand Transfers) supervision required [place] (Stand-Sit Transfers) supervision required Qhe-Ptclr-Yde Assistive Device (Transfers) rolling walker Maintain Weight Bearing Status (Transfers) able to maintain weight bearing status Comment (Transfers) multiple attempts to stand; use of momentum Gait Assessment/Treatment [place] (Gait) supervision required Assistive Device (Gait) rolling walker Distance in Feet (Gait) 100' Gait Pattern Analysis swing-to gait Deviations (Gait) lynda decreased;step length decreased;otf-mc-baxxp clearance decreased Maintain Weight Bearing Status (Gait) able to maintain weight bearing status Safety Issues (Gait) weight-shifting ability decreased Comment (Gait) vc's for gait sequencing and technique Stairs Assessment/Treatment Number of Stairs (Stairs) 5 stairs x2 Handrail Location (Stairs) left side (ascending) [place] (Stairs) supervision required Assistive Device (Stairs) straight cane Technique (Stairs) crfp-ly-pwco (ascending);mlyp-iz-lnus (descending) Maintain Weight Bearing Status (Stairs) able to maintain weight bearing status Safety Issues (Stairs) weight-shifting ability decreased Comment (Stairs) vc's for sequencing and technique AM-PAC Basic Mobility AM-PAC Mobility Completed? Yes Turning from your back to your side while in a flat bed w/o using handrails? 4 - None Standing up from a chair using your arms (e.g. wheelchair, or bedside commode)? 3 - A Little Moving from lying on your back to sitting on the side of a flat bed w/o using bedrails? 3 - A Little Moving to and from a bed to a chair (inclucing a wheelchair) 4 - None To walk in hospital rooo? 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 Gait Training Goal Gait Training Goal, Date Established 02/14/18 Gait Training Goal, Time to Achieve 1 wk Gait Training Goal, [place] Level supervision required Gait Training Goal, Assist Device walker, rolling Gait Training Goal, Distance to Achieve 75' Gait Training Goal, Additional Goal Pt will ascend/descend 2 stairs w/ 1 rail and cane with cGA Gait Training Goal, Date Goal Reviewed 02/15/18 Gait Training Goal, Outcome goal ongoing Transfer Training Goal Transfer Training Goal, Date Established 02/14/18 Transfer Training Goal, Time to Achieve 1 wk Transfer Training Goal, Activity Type ils-nd-vpods/gcryy-jb-zeq;thq-sy-csnwj/ocnwd-nt-ycw Transfer Train Goal, [place] Level supervision required Transfer Training Goal, Assist Device walker, rolling Transfer Train Goal, Date Goal Reviewed 02/15/18 Transfer Training Goal, Outcome goal ongoing Clinical Impression Rehab Potential good, to achieve stated therapy goals Therapy Frequency 3-5 times/wk Anticipated Equipment Needs at Discharge front wheeled walker Anticipated Discharge Disposition home with assist;home with home health G-Code: Mobility Status Modifier CURRENT PROJECTED CJ - At least 20 percent but less than 40 percent impaired, limited or restricted DISCHARGE CJ - At least 20 percent but less than 40 percent impaired, limited or restricted G Code Rationale: This G-Code and these disability modifiers were selected as the primary therapy goal based upon the patient's evaluation including the following functional test(s) AM-PAC - ActivityMeasure for Post-Acute Care. Current ability measures, co-morbidities and clinical judgement were also used to select the disability modifier. Ms. Knight's current G-Code functional level is 28.97% impaired based upon functional assessment. * Plan of Care - Agueda Jacob OT - 02/15/2018 9:20 AM EST Occupational Therapy Evaluation Pertinent History of Current Problem: (P) Pt is a 67 y/o female s/p L ENA 02/13/18. Precautions/Restrictions: (P) weight bearing, hip Precautions Comments: (P) WBAT LLE; standard precautions Assessment: Pt has been seen for occupational therapy evaluation, please refer to associated flowsheet data listed below for details. Stacy Knight presents with the following performance skill deficits and client factors: L hip pain, decreased hip ROM/flexibility 2' body habitus, strength, and overall mobility. These performance deficits have led to activity limitations and participation restrictions in the following areas of occupation: dressing, bathing, grooming, toileting, mobility, transferring, rest/sleep, home management, roles/routines, leisure, driving, community mobility, and social participation. However, despite the deficits listed above pt demonstrates the ability to complete tasks with supervision, set-up, and use of AE /p instruction in compensatory strategies today. Anticipate that pt will return home with assistance once medically ready. Do not anticipate further OT needs while hospitalized. Staff Recommendations: Encourage OOB activity and participation in all self care tasks with supervision with walker. Benefit from a wide walker. Anticipated Discharge Disposition: (P) home with assist, home with home health Pager: [phone] AGUEDA JACOB, OT 02/15/2018 Occupational Therapy Rehabilitation Department 2017 OT Evaluation Code Rationale: ?? Diagnosis [...] instrument and measurable assessment of functional outcome. 02/15/18 0920 Rehab Evaluation Document Type evaluation Total Evaluation Minutes, Occupational Therapy 45 (evaluation, self-care mgmt x1) Patient Effort good Symptoms Noted During/After Treatment none General Information Patient/Family/Caregiver Comments/Observations He helped me with wiping my butt and dressing my LE. re: significant other. General Observations of Patient Pt sitting at the eob upon arrival, dressed in hospital attire. Pertinent History of Current Problem Pt is a 67 y/o female s/p L ENA 02/13/18. Precautions/Restrictions weight bearing;hip Precautions Comments WBAT LLE; standard precautions Treatment Number OT 1 Living Environment Patient population Adult Living Environment Living Environment Comment Pt lives [place], [place] with her significant other. Both are retired. The house has 2 steps to enter with a railing on the R hand side then it is 1 level. She sleepsin a flat bed Functional Level Prior Prior Functional Level Comment She ambulates with 2 canes prior to surgery. She would use the cart in the store when she went groccery shopping. She was able to ambulate distance from parked car intostore. She was receiving help with dressing and cleaning her bottom prior to surgery Self-Care Dominant Hand right Vital Signs Heart Rate 74 SpO2 94 % O2 Device RA Vision Assessment/Intervention Additional Documentation (WFL) Cognitive Assessment Interventions Behavior/Mood Observations (Cognitive) alert;cooperative Orientation Status (Cognitive) oriented x 4 Attention (Cognitive) WNL/WFL Follows Commands/Answers Questions (Cognitive) 100% of the time Pain Scale/Rating Pain Level 3 Pain Assessment Numbers/Faces/Word Pain Body Location - Side Left Pain Body Location hip Factors That Aggravate Pain activity;movement Factors That Relieve Pain rest;repositioning ROM (Range of Motion) General Range of Motion Detail LE limited by body habitus Bed Mobility Assessment/Treatment Comment (Bed Mobility) already at the eob Transfer Assessment/Treatment [place] (Sit-Stand Transfers) supervision required [place] (Stand-Sit Transfers) supervision required Rld-Ridmp-Fzv Assistive Device (Transfers) rolling walker Comment (Transfers) uses momentum to stand Gait Assessment/Treatment Assistive Device (Gait) rolling walker [place] (Gait) supervision required Distance in Feet (Gait) to/from bathroom Comment (Gait) cues to better position self in relation to walker AM-PAC Daily Activity How much help from another person does the patient currently need putting on and taking off regularlower body clothing? 3 - A Little How much help from another person does the patient currently need with bathing (including washing, rinsing, drying)? 3 - A Little How much help from another person does the patient currently need with toileting, which includes using toilet, bedpan or urinal? 3 - A Little How much help from another person does the patient currently need putting on and taking off regularupper body clothing? 4 - None How much help from another person does the patient currently need taking care of personal grooming such as brushing teeth? 3 - A Little How much help from another person does the patient currently need eathing meals? 4 - None AM-PAC Daily Activity Raw Score 20 Daily Activity T-Scale Score 42.03 Daily Activity CMS 0-100% Score 38.32 AM-PAC Daily Activity CMS Modifier CJ Bathing Assessment/Training Comment (Bathing) Pt plans to shower at [employer], which has a walk in shower with seat. can stand by for task. Issue LH sponge to improve thoroughness with task given decreased ROm. Lower Body Dressing Assessment/Training Assistive Devices (LB Dressing) lead principal technical architect;sock-aid;long-handled shoe horn;dressing stick Position (LB Dressing) sitting;supported standing [place] Level (LB Dressing) supervision required;verbal cues required;set up required Impairments (LB Dressing) pain;flexibility decreased;ROM (range of motion) decreased;other (see comments) (body habitus limiting ability to access LEs easily) Comment (LB Dressing) Instructed Pt in the use of AE to help with donning socks, shoes, and pants. Pt demonstrated ability to don/doff standard socks. helps with compression hoses. Pt could doff the hoses with dressing stick, shown today. Pt could don/doff pants using lead principal technical architect as shown today. Toileting Assessment/Training Assistive Devices (Toileting) toilet paper aid Position (Toileting) sitting;supported standing [place] Level (Toileting) supervision required;set up required;verbal cues required Impairments (Toileting) flexibility decreased;ROM (range of motion) decreased (body habitus limiting ) Comment (Toileting) Issue toileting aide, and instructed in its use to improve personal hygiene /p BM as Pt had concerns. pt simulated ability to do task with device. Plan of Care Review Plan Of Care Reviewed With patient Clinical Impression Therapy Frequency evaluation only Anticipated Equipment Needs at Discharge (needs wide walker ) Anticipated Discharge Disposition home with assist;home with home health * Plan of Care - Star Cox, PT - 02/14/2018 2:13 PM EST Physical Therapy Evaluation Pertinent History of Current Problem: Pt is a 67 y/o female s/p L ENA Precautions/Restrictions: weight bearing, fall Precautions Comments: WBAT LLE; standard precautions Weight-Bearing Status Extremity Weight Bearing Status: left lower extremity Left Lower Extremity (Weight Bearing Status): weight-bearing as tolerated Assessment: Pt seen for initial evaluation. Presents with increased pain, impaired anthropometric characteristics, decreased LE strength/ROM, increased shortness of breathing during functional mobility, impaired skin integrity, impaired joint function which leads to impairments in gait, functional mobility. Pt able to ambulate short distances today with increased verbal cuing and physical assistance. Pt NOT safe to discharge home at this time. Home vs rehab pending progress. Please see associated flow sheet data below for objective information regarding today's session Staff Mobility Recommendations: 1 assist with FWW and gait belt Anticipated Discharge Disposition: (home vs rehab pending progress) Star Cox, PT Pager: [phone] Inpatient Physical Therapy 2017 PT Evaluation Code Rationale: ?? Diagnosis & Pertinent Co-Morbidities, personal factors, and present illness affecting Plan of Care: Patient Active Problem List Diagnosis Code ??? [...] left total hip arthroplasty (Dr. Dumont) Z96.649 Additional personal factors or co-morbidities that impact plan: ?? Total # of Factors: 0 1-2 3+ x ?? Examination of body system impairments, functional limitations and behaviors, and/or participation restrictions. Addressing 1-2 elements Addressing 3 + elements Addressing 4 + elements x ?? Clinical presentation: See assessment above. Stable/Uncomplicated Evolving/Fluctuating Symptoms Unstable/Unpredictable x ?? Clinical decision making of moderate complexity based on pt's functional performance as outlinedin this evaluation. 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 Both are retired. The house has 2 steps to enter with a railing on the R hand side then it is 1 level. She sleepsin a flat bed Functional Level Prior Prior Functional Level Comment She ambulates with 2 canes prior to surgery. She would use the cart in the store when she went groccery shopping. She was able to ambulate distance from parked car intostore. She was receiving help with dressing and cleaning her bottom prior to surgery Vital Signs BP 119/76 BP Method Automatic Patient Position Sitting O2 Device RA Pain Scale/Rating Pain Assessment Scale Numbers (Numeric Rating Pain Scale) Pain Level 5 POSS (Pasero Opioid-Induced Sed Scale) 1 - Awake and alert ROM (Range of Motion) Additional Documentation General Assessment (Group) General Range of Motion Detail LE limited by body habitus MMT (Manual Muscle Testing) Additional Documentation General Assessment (Group) General Manual Muscle Testing Assessment Detail L hip/knee 3/5 Mobility Assessment/Training Additional Documentation Bed Mobility Assessment/Treatment (Group);Transfer Assessment/Treatment (Group);Gait Assessment/Treatment (Group);Weight-Bearing Status (Group) Weight-Bearing Status Extremity Weight Bearing Status left lower extremity Bed Mobility Assessment/Treatment Assistive Device (Bed Mobility) leg software tools build engineer Scoot/Bridge [place] (Bed Mobility) contact guard assist Bgljhb-yy-Nub [place] (Bed Mobility) contact guard assist Safety Issues (Bed Mobility) decreased use of legs for bridging/pushing Impairments (Bed Mobility) pain;strength decreased;balance impaired Comment (Bed Mobility) increased time to complete; difficulties noted Transfer Assessment/Treatment Bed-Chair [place] (Transfers) minimum assist (75% patient effort) Mcn-Hzbby-Ezl Assistive Device (Transfers) rolling walker [place] (Sit-Stand Transfers) minimum assist (75% patient effort) [place] (Stand-Sit Transfers) minimum assist (75% patient effort) Eyp-Vyljd-Zov Assistive Device (Transfers) gait belt;rolling walker Maintain Weight Bearing Status (Transfers) able to maintain weight bearing status Comment (Transfers) multiple attempts to stand; use of momentum; vc's for precautions Gait Assessment/Treatment [place] (Gait) contact guard assist Assistive Device (Gait) rolling walker;gait belt Distance in Feet (Gait) 40' Gait Pattern Analysis swing-to gait Deviations (Gait) lynda decreased;step length decreased;nsk-in-uiwza clearance decreased;weight-shifting ability decreased Maintain Weight Bearing Status (Gait) able to maintain weight bearing status Safety Issues (Gait) weight-shifting ability decreased;balance decreased during turns Comment (Gait) decreased lynda; needs different walker; poor gait mechanics; vc's for sequencing and techniuqe [facility] Basic Mobility [facility] Mobility Completed? Yes Turning from your back to your side while in a flat bed w/o using handrails? 3 - A Little Standing up from a chair using your arms (e.g. wheelchair, or bedside commode)? 3 - A Little Moving from lying on your back to sitting on the side of a flat bed w/o using bedrails? 3 - A Little Moving to and from a bed to a chair (inclucing a wheelchair) 4 - None To walk in [employer] [place]? 3 - A Little Climbing 3-5 steps with a railing?* 2 - A Lot [facility] Basic Mobility Raw Score 18 Basic Mobility Standardized T-Scale Score 43.63 Basic Mobility CMS 0-100% 46.58 [facility] Basic Mobility CMS Modifier CK Motor Skills/Interventions Additional Documentation Therapeutic Exercise (Group) Therapeutic Exercise Lower Extremity (Therapeutic Exercise) gluteal sets;hamstring sets, bilateral;heel slides, bilateral;LAQ (long arc quad), bilateral;quad sets, bilateral;other (see comments) (ankle pumps, adductor squeezes ) Exercise Type (Therapeutic Exercise) AROM (active range of motion) Position (Therapeutic Exercise) supine;seated Sets/Reps (Therapeutic Exercise) x10 Comment (Therapeutic Exercise) given exercise program Plan of Care Review Plan Of Care Reviewed With patient Physical Therapy Goal Types Physical Therapy Goal Types Bed Mobility Goal (Group);Gait Training Goal (Group);Transfer Training Goal (Group) Bed Mobility Goal Bed Mobility Goal, Date Established 02/14/18 Bed Mobility Goal, Time to Achieve 1 wk Bed Mobility Goal, Activity Type all bed mobility activities Bed Mobility Goal, [place] Level conditional independence Bed Mobility Goal, Assistive Device leg software tools build engineer Gait Training Goal Gait Training Goal, Date Established 02/14/18 Gait Training Goal, Time to Achieve 1 wk Gait Training Goal, [place] Level supervision required Gait Training Goal, Assist Device walker, rolling Gait Training Goal, Distance to Achieve 75' Gait Training Goal, Additional Goal Pt will ascend/descend 2 stairs w/ 1 rail and cane with cGA Transfer Training Goal Transfer Training Goal, Date Established 02/14/18 Transfer Training Goal, Time to Achieve 1 wk Transfer Training Goal, Activity Type hpt-go-iygwf/fkacf-pd-goy;iwi-vv-jqbyu/djcmh-yq-ihs Transfer Train Goal, [place] Level supervision required Transfer Training Goal, Assist Device walker, rolling Clinical Impression Rehab Potential good, to achieve stated therapy goals Therapy Frequency 3-5 times/wk Anticipated Equipment Needs at Discharge front wheeled walker Anticipated Discharge Disposition (home vs rehab pending progress) General Interventions Additional Documentation Planned Therapy Interventions (Group) Planned Therapy Interventions gait training;home exercise program;patient/family education;stair training;strengthening;stretching;transfer training G-Code: Mobility Status Modifier CURRENT CK - At least 40 percent but less than 60 percent impaired, limited or restricted PROJECTED CJ - At least 20 percent but less than 40 percent impaired, limited or restricted DISCHARGE Not Discharged Yet - Ongoing G Code Rationale: This G-Code and these disability modifiers were selected as the primary therapy goal based upon the patient's evaluation including the following functional test(s) ABC - Activities-specific Balance Confidence Scale. Current ability measures, co-morbidities and clinical judgement were also used to select the disability modifier. Ms. Knight's current G-Code functional level is 46.58% impaired based upon functional assessment. * Initial Assessments - Mechelle Knight RN - 02/14/2018 10:20 AM EST Office of Care Management Initial Assessment Mechelle Knight RN reviewed record and discussed patient with Care Team. Source of Information:Pt interview , Chart review IDRs Introduced self/reviewed role; services accepted. Reason for Hospitalization: Reason for Admission as Stated by Patient: Hip replacement Past Medical History: Diagnosis Date ??? Asthma ??? Bowel disease ibs ??? Chronic pain ??? COPD (chronic obstructive pulmonary disease) ??? Gastroesophageal reflux ??? High blood pressure ??? Mental health problem depression ??? Transfusion history 1983 ??? Vertigo fell out of chair in past year Hospitalizations Within the Past 30 Days: None Anticipated Length Of Stay (If known): 2 days Current Decision-Making Capacity: Pt has capacity to answer her own questions Advance Care Planning: Full Code . Current Coping/Education/Information Needs: Pt. Understands current plan of care Current Functional Ability: TBD awaiting PT evaluation Functional Status Prior to Admission: Used crutches Home Environment: 1Stair into home. Then pt Lives on main level Social & Family Supports/Community Resources:Has friend that Lives with her Behavioral Health History: Depression Talked with patient about need for phlebotomy services representative if needed she denied need Substance Use/Abuse: Social History Tobacco Use ??? Smoking status: Former Smoker Packs/day: 0.00 Years: 0.50 Pack years: 0.00 Types: Cigarettes Last attempt to quit: 1980 Years since quittin.8 ??? Smokeless tobacco: Never Used Substance Use Topics ??? Alcohol use: No ??? Drug use: No Other Pertinent/Service Specific Information: Health/Prescription Coverage: Primary Insurance: MEDICARE Secondary Insurance: [facility] [place] [facility] Prescription Coverage: Yes Preferred Pharmacy: As listed Primary Care Provider: Dandy Driscoll, SENIOR CARE PROVIDER [phone] Patient/Caregiver Goals of Treatment: To get home Potential Needs for Transition of Care: Rehab/SNF: None Home Health: Has out Patient PT scheduled for Sunday DME: Has crutches needs walker Dialysis: Community Resources: None Transportation: Friend Anticipated Barriers to Discharge/Special Considerations: None Assessment:Pt arranged to do pt at home. Plan: A member of the Care Management team will continue to monitor progress, follow for continuityof care and assist with transition of care planning. Mechelle Knight RN Pager: [phone] * Plan of Care - Lori Darling RN - 02/14/2018 4:39 AM EST Problem: Hip Arthroplasty (Total, Partial) (Adult) Goal: Signs and Symptoms of Listed Potential Problems Will be Absent, Minimized or Managed (Hip Arthroplasty) Signs and symptoms of listed potential problems will be absent, minimized or managed by discharge/transition of care (reference Hip Arthroplasty (Total, Partial) (Adult) CPG). Outcome: Ongoing (Interventions Implemented as Appropriate) 02/14/18311 Hip Arthroplasty (Total, Partial) Problems Assessed (Hip Arthroplasty) all Problems Present (Hip Arthroplasty) pain Problem: Patient Care Overview Goal: Plan of Care Review Outcome: Ongoing (Interventions Implemented as Appropriate) 02/14/18311 Coping/Psychosocial Plan Of Care Reviewed With patient Plan of Care Review Progress progress toward functional goals as expected OUTCOME EVALUATION NOTE: OUTCOME SUMMARY: Pt sleeping well in between care. Pain managed with prn oxycodone. Requiring 1L NC while sleeping, O2 drops to mid 80's. Pt able to be on room air while awake. Will continue to monitor. PLAN MOVING FORWARD: PT/OT, pain control INDIVIDUALIZED FALL PREVENTION INTERVENTIONS: Patient-specific fall risk factors per assessment: [current deficits]: Recent surgery, narcotics, iv tubing Assistance [level of assistance required for transfers and ambulation]: 2 [place] [facility] [place]vision [direct monitoring required during toileting and ADLs]: hands on Surveillance [continuous indirect monitoring]: sil Goal: Individualization & Mutuality Outcome: Ongoing (Interventions Implemented as Appropriate) 02/14/18311 Individualization Patient Specific Goals pain control, mobilization Goal: Fall Prevention-Safe Patient Handling Outcome: Ongoing (Interventions Implemented as Appropriate) 02/13/18 19002/14/1838 Thomas Fall Risk History of Falling -- 0 Secondary Diagnosis -- 15 Ambulatory Aids -- 15 Intravenous Therapy/Heparin/Saline Lock -- 20 Gait/Transferring -- 10 Mental Status -- 0 Score -- 60 OTHER Thomas Fall Risk -- High Restraint Interventions Safety Promotion/Fall Prevention -- activity supervised;fall prevention program maintained;muscle strengthening facilitated;nonskid shoes/slippers when out of bed;safety round/check completed Positioning Body Position supine, head elevated -- Activity Activity Type -- activity adjusted per tolerance Activity Assistance Provided -- assistance, 2 people Assistive Device Utilized -- front-wheel walker Goal: Infection Control Outcome: Ongoing (Interventions Implemented as Appropriate) 02/14/183802/14/18311 Safety Interventions Isolation Precautions -- standard precautions maintained Infection Prevention rest/sleep promoted;single patient room provided;environmental surveillance performed -- Coping Strategies Supportive Measures self-care encouraged;active listening utilized -- Goal: Discharge Needs Assessment Outcome: Ongoing (Interventions Implemented as Appropriate) 02/14/18311 Discharge Needs Assessment Discharge Disposition still a patient * Op Note - Patrick Dumont MD - 02/13/2018 1:58 PM EST [facility] Operative Note Patient Name: Stacy Knight : [id number] MR#: [id number] Date of surgery: 02/13/2018 Preoperative diagnosis: Left hip osteoarthritis Postoperative diagnosis: Left hip osteoarthritis Procedure: Left total hip arthroplasty Anesthesia: General Surgeon: Patrick Dumont MD Field Service Engineer: Norman Olivas MD, Mao Hernández MD Estimated blood loss: 400 cc Fluids: 1000 cc Urine output: Due to Void Drains: None Complications: None Implants: 1. 11 Corail standard femoral stem 2. 48 mm [place] Cluster acetabular shell 3. 32 x 48 neutral acetabular polyethylene liner 4. 32 +1 mm metal femoral head Findings: Significant femoral and acetabular osteoarthritic changes. Components were well positioned. Small calcar fractures appreciated, wired and stable. Stability testing reveled stable construct without impingement within physiologic range of motion. Indications for procedure: Patient is a 67-year-old female with left hip osteoarthritis. After exhausting conservative measures, the patient elected to proceed with total hip arthroplasty. The risks and benefits of this procedure were reviewed in depth and patient received medical clearance prior to procedure. Description of events: The patient was seen in the same day surgery area where informed consent was confirmed and the appropriate left lower extremity was marked with my initials. [...] down to this post. The hip was prepped and draped in usual sterile fashion using ChloraPrep. [...] bony bleeding was encountered. Acetabular shell of 48 millimeters was malleted into the appropriate anteversion [...] broaches were used until a final size 11 broach had excellent rotational stability however small non-displaced calcar fracture appreciated. Wire was place around femur and broach stable. Calcar planing was undertaken and trial femoral neck and head was placed using size 32+1 head and standard neck. The hip was [...] surgical extremity without precaution. Patient will use ASA for DVT prophylaxis for 30 days. Dressing will remain in place for 7 days. No suture removal is necessary. Patient will likely be discharged to home with VNAservices or rehabilitation stay. Follow-up will be in 4 weeks for wound check and xrays at that visit. Infection Bundle used? N/A Attestation: Case Date: 02/13/2018 I was present and I participated during the entire procedure (does not need to include opening and closing). Patrick Dumont MD 02/13/2018 documented in this encounter Plan of Treatment Upcoming Encounters Date Type Department Care Team (Late st Contact Info) Description 03/04/2024 12:00 PM EST Office Visit [place] [address] Jordyn Francisco MD [facility] [address] OBSTETRICS [place] [address] Scheduled Referrals Name Type Priority Associated Diagnoses Orde r Schedule Referral to Physical Therapy Outpatient Referral Routine Primary osteoarthritis of left hip Status post total replacement of left hip Ordered: 02/15/2018 documented as of this encounter Procedures Procedure Name Priority Date/Time Associated Diagnosis Comments HEMOGRAM Routine 02/15/2018 4:13 AM EST DIFFERENTIAL, AUTOMATED Routine 02/15/2018 4:13 AM EST CBC (WITH DIFF) Routine 02/15/2018 4:13 AM EST BASIC METABOLIC PANEL Routine 02/15/2018 4:13 AM EST HEMOGRAM Routine 02/14/2018 4:04 AM EST DIFFERENTIAL, AUTOMATED Routine 02/14/2018 4:04 AM EST CBC (WITH DIFF) Routine 02/14/2018 4:04 AM EST BASIC METABOLIC PANEL Routine 02/14/2018 4:04 AM EST XR PELVIS Routine 02/13/2018 3:46 PM EST XR FLUORO NO RAD <1HR - OR USE Routine 02/13/2018 1:53 PM EST BLOOD GAS ARTERIAL POC Routine 02/13/2018 1:32 PM EST MODIFIER PINNACLE GRIPTION ACETABULUM DEPUY Yes 02/13/2018 11:18 AM EST Primary osteoarthritis of left hip MODIFIER CORAIL FEMORAL STEM DEPUY Yes 02/13/2018 11:18 AM EST Primary osteoarthritis of left hip HIP INTRAOP RADIOLOGIC EXAMINATION, UNILATERAL, W PELVIS; 4+ VIEWS (WRVU 0.27) Yes 02/13/2018 11:18 AM EST Primary osteoarthritis of left hip TOTAL HIP ARTHROPLASTY, ANTERIOR APPROACH (WRVU 19.6) Yes 02/13/2018 11:18 AM EST Primary osteoarthritis of left hip IMPLANTABLE DEVICES SCAN 02/13/2018 12:00 AM EST PEANUT PICKER SCAN 02/13/2018 12:00 AM EST documented in this encounter Results * (ABNORMAL) Differential, Automated (02/15/2018 4:13 AM EST) Neutrophil % 85.2 % [facility] Neutrophil Absolute 13.20(H) 1.70 - 6.10 x10(3)/mc L [facility] Lymph % 7.1 % [facility] Lymphocytes Abs 1.1 0.9 - 3.2 x10(3)/mc L [facility] Monocyte % 6.8 % [facility] Monocyte Abs 1.1(H) 0.3 - 0.9 x10(3)/[facility] Eos % 0.1 % [facility] Eosinophils Abs 0.0 0.0 - 0.4 x10(3)/[facility] Basophil % 0.1 % [facility] Baso Absolute 0.0 0.0 - 0.1 x10(3)/[facility] Immature Gran % 0.70 % [facility] Comment: Immature granulocytes(IG's)percentage and absolute count will include metamyelocytes, myelocytes, and promyelocytes. Blood smears from CBCs yielding IG's will be scanned manually for concordance. If this scan disagrees with the automated IG or if promyelocytes are noted, a manual differential will be performed. Immature Gran Absolute 0.11(H) 0.00 - 0.04 x10(3)/[facility] Blood specimen (specimen) 02/15/2018 4:13 AM EST 02/15/2018 4:21 AM EST Narrative Resulting Agency Comment Spec In Lab Norman Olivas MD HEMATOLOGY ORDERABLE S [facility] [place] [address] * (ABNORMAL) Hemogram (02/15/2018 4:13 AM EST) White Blood Cell 15.5(H) 4.0 - 9.5 x10(3)/[facility] Red Blood Cell 3.49(L) 4.00 - 5.21 x10(6)/[facility] Hemoglobin 11.0(L) 11.7 - 15.5 gm/dL [facility] Hematocrit 33.4(L) 35.7 - 45.8 % [facility] Mean Cell Volume 95.7(H) 82.6 - 94.4 fL [facility] Mean Cell Hemoglobin 31.5 27.1 - 32.0 pg [facility] Mean Cell Hemoglobin Concentration 32.9 31.7 - 35.0 gm/dL [facility] Platelet 260 145 - 357 x10(3)/mc L [facility] RDW Standard Deviation 45.9 37.0 - 46.0 fL [facility] RDW coefficient of variation 13.0 11.5 - 14.1 % [facility] Mean Platelet Volume 11.3 7.6 - 12.9 fL [facility] NRBC% auto 0.0 % [facility] NRBC Absolute 0.000 0.000 - 0.000 x10(3)/mc L [facility] Blood specimen (specimen) 02/15/2018 4:13 AM EST 02/15/2018 4:21 AM EST Narrative Resulting Agency Comment Spec In Lab Norman Olivas MD HEMATOLOGY ORDERABLE S [facility] [place] [place] [address] * (ABNORMAL) Basic Metabolic Panel (non-fasting) (02/15/2018 4:13 AM EST) Glucose 158 65 - 199 mg/dL [facility] Comment:Diabetes: >=200 mg/d L plus symptoms Blood Urea Nitrogen 18 8 - 18 mg/dL [facility] Comment:delta result recheck ed-KLA Creatinine 0.68(L) 0.70 - 1.20 mg/dL [facility] Sodium 139 135 - 145 mmol/L [facility] Potassium 4.6 3.5 - 5.0 mmol/L [facility] Comment: Please note: ??Patients with WBC >100,000 may have falsely elevated Potassium levels. ??For accurate Potassium quantification in these patients send serum separator tube (gold top) for subsequent determinations. ??Contact the Clinical Chemistry Laboratory if there are any questions. Chloride 98 98 - 107 mmol/L [facility] Carbon Dioxide 27 22 - 31 mmol/L [facility] Anion Gap 14 5 - 15 mmol/L [facility] Calcium 9.3 8.5 - 10.5 mg/dL [facility] Comment:delta result recheck ed-KLA Est Glomerular Filtration Rate 91 >=60 mL/min/1. 73 m?? [facility] Comment: The eGFR was calculated using the CKD-EPI equation. As with all creatinine based estimates of kidney function, eGFR values calculated with the CKD-EPI equation are not accurate in patients with acute kidney failure, extremes of body mass or the acutely ill. [email or web address] eGFR 106 >=60 mL/min/1. 73 m?? [facility] Comment: The eGFR was calculated using the CKD-EPI equation. As with all creatinine based estimates of kidney function, eGFR values calculated with the CKD-EPI equation are not accurate in patients with acute kidney failure, extremes of body mass or the acutely ill. [email or web address] Blood specimen (specimen) 02/15/2018 4:13 AM EST 02/15/2018 4:21 AM EST Narrative Resulting Agency Comment Spec In Lab Patrick Dumont MD CHEMISTRY ORDERABLES Performing Organization Address City/State/[facility] Co de Phone Number [facility] [place] [address] * (ABNORMAL) Differential, Automated (02/14/2018 4:04 AM EST) Neutrophil % 90.4 % [facility] Neutrophil Absolute 11.76(H) 1.70 - 6.10 x10(3)/mc L [facility] Lymph % 4.7 % [facility] Lymphocytes Abs 0.6(L) 0.9 - 3.2 x10(3)/mc L [facility] Monocyte % 4.2 % [facility] Monocyte Abs 0.5 0.3 - 0.9 x10(3)/mc L [facility] Eos % 0.0 % [facility] Eosinophils Abs 0.0 0.0 - 0.4 x10(3)/[facility] Basophil % 0.2 % [facility] Baso Absolute 0.0 0.0 - 0.1 x10(3)/[facility] Immature Gran % 0.50 % [facility] Comment: Immature granulocytes(IG's)percentage and absolute count will include metamyelocytes, myelocytes, and promyelocytes. Blood smears from CBCs yielding IG's will be scanned manually for concordance. If this scan disagrees with the automated IG or if promyelocytes are noted, a manual differential will be performed. Immature Gran Absolute 0.07(H) 0.00 - 0.04 x10(3)/[facility] Blood specimen (specimen) 02/14/2018 4:04 AM EST 02/14/2018 4:17 AM EST Narrative Resulting Agency Comment Spec In Lab Norman Olivas MD HEMATOLOGY ORDERABLE S [facility] [place] [address] * (ABNORMAL) Hemogram (02/14/2018 4:04 AM EST) White Blood Cell 13.0(H) 4.0 - 9.5 x10(3)/[facility] Red Blood Cell 3.46(L) 4.00 - 5.21 x10(6)/ L [facility] Hemoglobin 11.0(L) 11.7 - 15.5 gm/dL [facility] Hematocrit 33.3(L) 35.7 - 45.8 % [facility] Mean Cell Volume 96.2(H) 82.6 - 94.4 fL [facility] Mean Cell Hemoglobin 31.8 27.1 - 32.0 pg [facility] Mean Cell Hemoglobin Concentration 33.0 31.7 - 35.0 gm/dL [facility] Platelet 218 145 - 357 x10(3)/mc L [facility] RDW Standard Deviation 46.3(H) 37.0 - 46.0 fL [facility] RDW coefficient of variation 13.1 11.5 - 14.1 % [facility] Mean Platelet Volume 10.9 7.6 - 12.9 fL [facility] NRBC% auto 0.0 % [facility] NRBC Absolute 0.000 0.000 - 0.000 x10(3)/mc L [facility] Blood specimen (specimen) 02/14/2018 4:04 AM EST 02/14/2018 4:17 AM EST Narrative Resulting Agency Comment Spec In Lab Nomran Olivas MD HEMATOLOGY ORDERABLE S [facility] [place] [place] [address] * (ABNORMAL) Basic Metabolic Panel (non-fasting) (02/14/2018 4:04 AM EST) Glucose 174 65 - 199 mg/dL [facility] Comment:Diabetes: >=200 mg/d L plus symptoms Blood Urea Nitrogen 11 8 - 18 mg/dL [facility] Creatinine 0.55(L) 0.70 - 1.20 mg/dL [facility] Sodium 139 135 - 145 mmol/L [facility] Potassium 4.4 3.5 - 5.0 mmol/L [facility] Comment: Please note: ??Patients with WBC >100,000 may have falsely elevated Potassium levels. ??For accurate Potassium quantification in these patients send serum separator tube (gold top) for subsequent determinations. ??Contact the Clinical Chemistry Laboratory if there are any questions. Chloride 101 98 - 107 mmol/L [facility] Carbon Dioxide 25 22 - 31 mmol/L [facility] Anion Gap 13 5 - 15 mmol/L [facility] Calcium 8.1(L) 8.5 - 10.5 mg/dL [facility] Est Glomerular Filtration Rate 98 >=60 mL/min/1. 73 m?? [facility] Comment: The eGFR was calculated using the CKD-EPI equation. As with all creatinine based estimates of kidney function, eGFR values calculated with the CKD-EPI equation are not accurate in patients with acute kidney failure, extremes of body mass or the acutely ill. [email or web address] eGFR 113 >=60 mL/min/1. 73 m?? [facility] Comment: The eGFR was calculated using the CKD-EPI equation. As with all creatinine based estimates of kidney function, eGFR values calculated with the CKD-EPI equation are not accurate in patients with acute kidney failure, extremes of body mass or the acutely ill. [email or web address] Blood specimen (specimen) 02/14/2018 4:04 AM EST 02/14/2018 4:17 AM EST Narrative Resulting Agency Comment Spec In Lab Patrick Dumont MD CHEMISTRY ORDERABLES [facility] [place] [id number] * XR Pelvis (Generic) (02/13/2018 3:46 PM EST) Anatomical Region Laterality Modality Pelvis N/A Digital Radiogra phy Impressions 02/13/2018 5:05 PM EST 1. ??Status post left total hip arthroplasty with no immediate hardware complications. Narrative 02/13/2018 5:05 PM EST EXAMINATION: XR PELVIS (GENERIC) CLINICAL HISTORY: s/p L ENA. Thanks! TECHNIQUE: Portable low AP view the pelvis COMPARISON: Pelvic and left hip radiograph 08/09/2017 FINDINGS: Status post left total hip arthroplasty with a screw fixated acetabular component and a cerclage wire around the proximal femoral stem. No immediate hardware complications are apparent. There is persistent joint space narrowing of the right hip with subchondral sclerosis and marginal osteophyte formation. Procedure Note Charo Rogel MD - 02/13/2018 EXAMINATION: XR PELVIS (GENERIC) CLINICAL HISTORY: s/p L ENA. Thanks! TECHNIQUE: Portable low AP view the pelvis COMPARISON: Pelvic and left hip radiograph 08/09/2017 FINDINGS: Status post left total hip arthroplasty with a screw fixated acetabular component and a cerclage wire around the proximal femoral stem. Noimmediate hardware complications are apparent. There is persistent joint spacenarrowing of the right hip with subchondral sclerosis and marginal osteophyteformation. IMPRESSION 1. Status post left total hip arthroplasty with no immediate hardware complications. Patrick Dumont MD IMG DX ORDERABLES * XR Fluoro No Rad <1Hr - OR Use (02/13/2018 1:53 PM EST) Narrative RAD - 02/13/2018 1:53 PM EST This order does not need a radiologist interpretation. ?? Patrick Dumont MD G FLUORO ORDERABLE S [place], [place] * (ABNORMAL) BLOOD GAS 2 ARTERIAL (02/13/2018 1:32 PM EST) pH, Arterial 7.41 7.35 - 7.45 [facility] PCO2, Arterial 42 35 - 45 mmHg [facility] PO2, Arterial 75(L) 85 - 104 mmHg [facility] Bicarbonate, Arterial 26.7(H) 20.0 - 26.0 mmol/L [facility] Base Excess, Arterial 1.8 -3.0 - 3.0 mmol/L [facility] Hgb Blood Gas 13.6 11.7 - 15.5 gm/dL [facility] Oxyhemoglobin, Arterial 94.9 94.0 - 97.0 % [facility] Carboxyhemoglob in, Arterial 0.6 % [facility] Comment: Nonsmokers: 0.5-1.5% COHB Smokers: Variable, but usually less than 10% Toxic: 20-30% COHB Lethal: Greater than 60% COHB Methemoglobin, Arterial 0.3 <=1.5 % [facility] Na Whole Blood 138 135 - 145 mmol/L [facility] K Whole Blood 3.9 3.5 - 5.0 mmol/L [facility] Comment: Please note: Patients with WBC >100,000 may have falsely elevated Potassium levels. Contact the Clinical Chemistry Laboratory if there are any questions. ICa Whole Blood 1.16 1.15 - 1.33 mmol/L [facility] Comment: Note: ??Total bilirubin higher than 20 mg/dL may lead to falsely low ionized calcium. CL Whole Blood 105 98 - 107 mmol/L [facility] Gluc Whole Bld 160 65 - 199 mg/dL [facility] Comment:Diabetes: >=200 mg/d L plus symptoms. Lactate WB 1.9 0.5 - 2.2 mmol/L [facility] FIO2 Art 92 % [facility] Flow Art 1.0 LPM [facility] PF Ratio Art 82 [facility] Temp Art 35.9 Celsius [facility] Blood specimen (specimen) 02/13/2018 1:32 PM EST 02/13/2018 1:32 PM EST Patrick Dumont MD POINT OF CARE TEST O NELLY Performing Organization Address City/State/[facility] Co de Phone Number [facility] [place] [address] * SCAN DOC: IMPLANTABLE DEVICES (02/13/2018 12:00 AM EST) Narrative 02/13/2018 12:00 AM EST Ordered by an unspecified provider. Scanning Provider MEDIA MGR SCAN EXT O RDR/RSLT * SCAN DOC: PEANUT PICKER (02/13/2018 12:00 AM EST) Anatomical Region Laterality Modality Other Narrative 02/13/2018 12:00 AM EST Ordered by an unspecified provider. Scanning Provider MEDIA MGR SCAN EXT O RDR/RSLT documented in this encounter Visit Diagnoses Diagnosis 02/13/2018 S/P left total hip arthroplasty (Dr. 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 left hip Primary localized osteoarthrosis, pelvic region and thigh Morbid obesity with BMI of 40.0-44.9, adult Morbid obesity documented in this encounter Administered Medications Inactive Administered Medications - up to 3 most recent administrations Medication Order MAR Action Action Date Dose Rate Site acetaminophen (TYLENOL) tablet 1,000 mg 1,000 mg, Oral, ONCE, 1 dose, On Sun02/13/18 at 1000, Administer with SIP of H2O only., Day of Surgery (Day of Procedure), Routine Given 02/13/2018 10:00 AM EST 1,000 mg acetaminophen (TYLENOL) tablet 1,000 mg 1,000 mg, Oral, EVERY 8 HOURS SCHEDULED, First dose on Sun02/13/18 at 1545, Until Discontinued, Maximum dose of acetaminophen is 4000 mg from all sources in 24 hours., Routine Given 02/15/2018 1:30 PM EST 1,000 mg Given 02/15/2018 5:50 AM EST 1,000 mg Given 02/14/2018 9:47 PM EST 1,000 mg albuterol 90 mcg/actuation inhaler 2 puff 2 puff, Inhalation, EVERY 4 HOURS PRN, Starting on Sun02/13/18 at 1700, Until Sun02/15/18 at 1804, Wheezing, Routine, Is there a contraindication to the patient receiving this medication as a nebulizer? Yes Given 02/15/2018 10:24 AM EST 2 puffs aspirin EC tablet 81 mg 81 mg, Oral, 2 TIMES DAILY, First dose on Sun02/13/18 at 2100, Until Discontinued, Routine Given 02/15/2018 8:22 AM EST 81 mg Given 02/14/2018 8:49 PM EST 81 mg Given 02/14/2018 8:25 AM EST 81 mg budesonide-formoterol (SYMBICORT) 160-4.5 mcg/actuation inhaler 2 Inhalation 2 .Inhalation , Inhalation, 2 TIMES DAILY, First dose on Sun02/13/18 at 2100, Until Discontinued, Routine Given 02/15/2018 10:25 AM EST 2 .Inhala tion Given 02/14/2018 8:50 PM EST 2 .Inhalation buPROPion (WELLBUTRIN XL) XL tablet 150 mg 150 mg, Oral, DAILY, First dose on Sun02/14/18 at 0900, Until Discontinued, DO NOT CRUSH OR OPEN, Routine Given 02/15/2018 8:21 AM EST 150 mg Given 02/14/2018 8:24 AM EST 150 mg ceFAZolin (ANCEF) 1g in dextrose 5% 50mL 1 g, Intravenous, EVERY 8 HOURS, 3 doses, First dose on Sun02/13/18 at 1545, Last dose on Sun02/14/18 at 0745, Administer over 30 Minutes, Adjust to 4 hours from intraoperative dose. * Beta-lactam based antibiotics (eg. Ampicillin, Cefazolin, Aztreonam) should be administered within 4 hours of the preceding intraoperative dose. * Vancomycin, Flouroquinolones, Clindamycin, Gentamicin, and Metronidazole should be administered within 8 hours of the preceding intraoperative dose., Recovery (Recovery-Hospital Unit), Indication for (Active or Suspected): Prophylaxis New Bag 02/14/2018 8:26 AM EST 1 g 100 mL/hr New Bag 02/14/2018 12:30 AM EST 1 g 100 mL/hr New Bag 02/13/2018 3:57 PM EST 1 g 100 mL/hr celecoxib (CeleBREX) capsule 200 mg 200 mg, Oral, 2 TIMES DAILY, First dose on Sun02/13/18 at 2100, Until Discontinued, Routine Given 02/15/2018 8:21 AM EST 200 mg Given 02/14/2018 8:49 PM EST 200 mg Given 02/14/2018 8:25 AM EST 200 mg dexamethasone (DECADRON) tablet 4 mg 4 mg, Oral, DAILY, 2 doses, First dose on Sun02/13/18 at 1700, Last dose on Sun02/14/18 at 0900, Routine Given 02/14/2018 8:24 AM EST 4 mg Given 02/13/2018 5:37 PM EST 4 mg gabapentin (NEURONTIN) capsule 600 mg 600 mg, Oral, ONCE, 1 dose, On Sun02/13/18 at 1000, Administer with SIP of H2O only., Day of Surgery (Day of Procedure), Routine Given 02/13/2018 10:[address] 600 mg gabapentin (NEURONTIN) capsule 600 mg 600 mg, Oral, NIGHTLY, 2 doses, First dose on Sun02/13/18 at 2100, Last dose on Sun02/14/18 at 2100, Routine Given 02/14/2018 8:48 PM EST 600 mg Given 02/13/2018 9:33 PM EST 600 mg lactated Ringers infusion 1,000 mL 1,000 mL, at 100 mL/hr, Intravenous, CONTINUOUS, Starting on Sun02/13/18 at 1000, Until Sun02/13/18 at 1632, Day of Surgery (Day of Procedure) New Bag 02/13/2018 2:03 PM EST New Bag 02/13/2018 11:17 AM EST New Bag 02/13/2018 10:00 AM EST 1,000 mLs 100 mL/hr lidocaine (XYLOCAINE) 10 mg/mL (1 %) injection 3 mg 3 mg (0.3 mL), Subcutaneous, ONCE PRN, 1 dose, Starting on Sun02/13/18 at 0940, Until Sun02/13/18 at 1005, for discomfort with PIV insertion, Day of Surgery (Day of Procedure), Routine Given 02/13/2018 10:05 AM EST 3 mg ondansetron (ZOFRAN) injection 4 mg 4 mg, Intravenous, EVERY 8 HOURS PRN, Starting on Sun02/13/18 at 1633, Until Sun02/15/18 at 1804, Nausea, May repeat times one in 30 minutes if ineffective. If multiple antiemetics are ordered, use ondansetron first, Recovery (Recovery-Hospital Unit) ondansetron (ZOFRAN) tablet 4 mg 4 mg, Oral, EVERY 8 HOURS PRN, Starting on Sun02/13/18 at 1633, Until Sun02/15/18 at 1804, Nausea, Vomiting, If multiple antiemetics are ordered, use ondansetron first. PO Preferred. If patient unable to take PO, may give IV if ordered. May repeat times one in 45 minutes if ineffective., Recovery (Recovery-Hospital Unit), Routine Given 02/15/2018 5:51 AM EST 4 mg oxyCODONE (ROXICODONE) immediate release tablet 5-15 mg 5-15 mg, Oral, EVERY 4 HOURS PRN, Starting on Sun02/13/18 at 1523, Until Sun02/15/18 at 1804, Pain, Give 5 mg for mild pain (1-3), 10 mg for moderate pain (4-6) or 15 mg for severe pain (7-10) May give an additional 5 mg in 30 minutes ONCE if pain not relieved., Routine Given 02/15/2018 8:29 AM EST 5 mg Given 02/14/2018 8:47 PM EST 10 mg Given 02/14/2018 1:37 PM EST 5 mg pantoprazole (PROTONIX) tablet 20 mg 20 mg, Oral, DAILY, First dose on Sun02/13/18 at 1700, Until Discontinued, DO NOT CRUSH OR OPEN Given 02/15/2018 8:21 AM EST 20 mg Given 02/14/2018 8:24 AM EST 20 mg Given 02/13/2018 5:37 PM EST 20 mg polyethylene glycol (MIRALAX) packet 17 g 17 g, Oral, 2 TIMES DAILY, First dose on Sun02/13/18 at 2100, Until Discontinued, Routine Given 02/15/2018 8:21 AM EST 17 g Given 02/14/2018 8:49 PM EST 17 g Given 02/14/2018 8:33 AM EST 17 g senna-docusate (PERICOLACE) 8.6-50 mg per tablet 2 tablet 2 tablet, Oral, 2 TIMES DAILY, First dose on Sun02/13/18 at 2100, Until Discontinued, Routine Given 02/15/2018 8:21 AM EST 2 tablets Given 02/14/2018 8:49 PM EST 2 tablets Given 02/13/2018 9:33 PM EST 2 tablets sodium chloride 0.9 % flush 5 mL 5 mL, Intravenous, 2 TIMES DAILY, First dose on Sun02/13/18 at 2100, Until Discontinued, Recovery (Recovery-Hospital Unit), Routine Given 02/15/2018 8:27 AM EST 5 mLs Given 02/14/2018 8:51 PM EST 5 mLs Given 02/13/2018 9:35 PM EST 5 mLs sodium chloride 0.9% infusion 100 mL/hr, Intravenous, CONTINUOUS, Starting on Sun02/13/18 at 1700, Until Effie 02/14/18 at 1659, Recovery (Recovery-Hospital Unit) New Bag 02/13/2018 5:42 PM EST 100 mL/hr 100 mL /hr verapamil (CALAN-SR) CR tablet 240 mg 240 mg, Oral, NIGHTLY, First dose on Sun02/13/18 at 2100, Until Discontinued, DO NOT CRUSH OR OPEN Hold for SBP<120 and/or HR<60, Routine Given 02/14/2018 8:50 PM EST 240 mg Given 02/13/2018 9:33 PM EST 240 mg documented in this encounter Active and Recently Administered Medications Times are shown in EST. Scheduled Medication Order 02/13/2018 02/14/2018 02/15/2018 acetaminophen (TYLENOL) tablet 1,000 mg (COMPLETED) 1,000 mg, Oral, ONCE, 1 dose, On Sun02/13/18 at 1000, Administer with SIP of H2O only., Day of Surgery (Day of Procedure), Routine 1000 (Given - Provider: Julia Levy RN) acetaminophen (TYLENOL) tablet 1,000 mg 1,000 mg, Oral, EVERY 8 HOURS SCHEDULED, First dose on Sun02/13/18 at 1545, Until Discontinued, Maximum dose of acetaminophen is 4000 mg from all sources in 24 hours., Routine 1737 (Given - Provider: Ava Cota RN)213 (Given - Provider: Annabel Blanc RN) 0639 (Given - Provider: Lori Darling, KATINA)1337 (Given - Provider: Ava Cota RN)2147 (Given - Provider: Luis Hall RN) 0550 (Given - Provider: Luis Hall, KATINA)1330 (Given - Provider: Tamera Raygoza, KATINA) aspirin EC tablet 81 mg 81 mg, Oral, 2 TIMES DAILY, First dose on Sun02/13/18 at 2100, Until Discontinued, Routine 2133 (Given - Provider: Annabel Blanc RN) 0825 (Given - Provider: Ava Cota RN)204 (Given - Provider: Luis Hall, KATINA) 0822 (Given - Provider: Tamera Raygoza, KATINA) budesonide-formoterol (SYMBICORT) 160-4.5 mcg/actuation inhaler 2 Inhalation 2 .Inhalation , Inhalation, 2 TIMES DAILY, First dose on Sun02/13/18 at 2100, Until Discontinued, Routine 2100 (Not Given - Provider: Annabel Blanc RN - Reason: Patient/family refused) 0833 (Not Given - Provider: Ava Cota RN - Reason: Patient/family refused)2049 (Given - Provider: Luis Hall, RN) 102 (Given - Provider: Tamera Raygoza, KATINA) buPROPion (WELLBUTRIN XL) XL tablet 150 mg 150 mg, Oral, DAILY, First dose on Effie 02/14/18 at 0900, Until Discontinued, DO NOT CRUSH OR OPEN, Routine 823 (Given - Provider: Ava Cota RN) 08 (Given - Provider: Tamera Raygoza RN) ceFAZolin (ANCEF) 1g in dextrose 5% 50mL (COMPLETED) 1 g, Intravenous, EVERY 8 HOURS, 3 doses, First dose on Sun02/13/18 at 1545, Last dose on Effie 02/14/18 at 0745, Administer over 30 Minutes, Adjust to 4 hours from intraoperative dose. * Beta-lactam based antibiotics (eg. Ampicillin, Cefazolin, Aztreonam) should be administered within 4 hours of the preceding intraoperative dose. * Vancomycin, Flouroquinolones, Clindamycin, Gentamicin, and Metronidazole should be administered within 8 hours of the preceding intraoperative dose., Recovery (Recovery-Hospital Unit), Indication for (Active or Suspected): Prophylaxis 1557 (New Bag - Provider: Nora Corona RN)1627 (Stopped - Provider: Ava Cota RN) 0030 (New Bag - Provider: Lori Darling RN)0100 (Stopped - Provider: Lori Darling RN)0826 (New Bag - Provider: Ava Cota RN)0856 (Stopped - Provider: Ava Cota RN) celecoxib (CeleBREX) capsule 200 mg 200 mg, Oral, 2 TIMES DAILY, First dose on Sun02/13/18 at 2100, Until Discontinued, Routine 2133 (Given - Provider: Annabel Blanc RN) 08 (Given - Provider: Ava Cota RN)2048 (Given - Provider: Luis Hall, KATINA) 0821 (Given - Provider: Tamera Raygoza, KATINA) dexamethasone (DECADRON) tablet 4 mg (COMPLETED) 4 mg, Oral, DAILY, 2 doses, First dose on Sun02/13/18 at 1700, Last dose on Sun02/14/18 at 0900, Routine 1737 (Given - Provider: Ava Cota RN) 0824 (Given - Provider: Ava Cota RN) gabapentin (NEURONTIN) capsule 300 mg(Linked Group 1) 300 mg, Oral, NIGHTLY, First dose on Sun02/15/18 at 2100, Until Discontinued, Routine gabapentin (NEURONTIN) capsule 600 mg (COMPLETED) 600 mg, Oral, ONCE, 1 dose, On Sun02/13/18 at 1000, Administer with SIP of H2O only., Day of Surgery (Day of Procedure), Routine 1000 (Given - Provider: Julia Levy RN) gabapentin (NEURONTIN) capsule 600 mg (COMPLETED)(Linked Group 1) 600 mg, Oral, NIGHTLY, 2 doses, First dose on Sun02/13/18 at 2100, Last dose on Sun02/14/18 at 2100, Routine 213 (Given - Provider: Annabel Blanc RN) 2047 (Given - Provider: Luis Hall RN) pantoprazole (PROTONIX) tablet 20 mg 20 mg, Oral, DAILY, First dose on Sun02/13/18 at 1700, Until Discontinued, DO NOT CRUSH OR OPEN 1737 (Given - Provider: Ava Cota RN) 0824 (Given - Provider: Ava Cota RN) 0821 (Given - Provider: Tamera Raygoza RN) polyethylene glycol (MIRALAX) packet 17 g 17 g, Oral, 2 TIMES DAILY, First dose on Sun02/13/18 at 2100, Until Discontinued, Routine 2099 (Not Given - Provider: Annabel Blanc RN - Reason: Patient/family refused) 0833 (Given - Provider: Ava Cota RN)2048 (Given - Provider: Luis Hall RN) 08 (Given - Provider: Tamera Raygoza RN) senna-docusate (PERICOLACE) 8.6-50 mg per tablet 2 tablet 2 tablet, Oral, 2 TIMES DAILY, First dose on Sun02/13/18 at 2100, Until Discontinued, Routine 213 (Given - Provider: Annabel Blanc RN) 09 (Not Given - Provider: Ava C Footit, RN - Reason: Patient/family refused)2048 (Given - Provider: Luis Hall RN) 820 (Given - Provider: Tamera Raygoza, KATINA) sodium chloride 0.9 % flush 5 mL 5 mL, Intravenous, 2 TIMES DAILY, First dose on Sun02/13/18 at 2100, Until Discontinued, Recovery (Recovery-Hospital Unit), Routine 2134 (Given - Provider: Annabel Blanc RN) 0900 (Not Given - Provider: Ava Cota RN - Reason: See comment - Comment: infusing)2050 (Given - Provider: Luis Hall RN) 826 (Given - Provider: Tamera Raygoza RN) verapamil (CALAN-SR) CR tablet 240 mg 240 mg, Oral, NIGHTLY, First dose on Sun02/13/18 at 2100, Until Discontinued, DO NOT CRUSH OR OPEN Hold for SBP<120 and/or HR<60, Routine 2132 (Given - Provider: Annabel Blanc RN) 2049 (Given - Provider: Luis Hall RN) Continuous Medication Order 02/13/2018 02/14/2018 02/15/2018 lactated Ringers infusion 1,000 mL (CANCELED) 1,000 mL, at 100 mL/hr, Intravenous, CONTINUOUS, Starting on Sun02/13/18 at 1000, Until Sun02/13/18 at 1632, Day of Surgery (Day of Procedure) 1000 (New Bag - Provider: Julia Levy RN)1117 (New Bag - Provider: Mookie Man)1403 (New Bag - Provider: Mookei Man) sodium chloride 0.9% infusion () 100 mL/hr, Intravenous, CONTINUOUS, Starting on Sun02/13/18 at 1700, Until Effie 02/14/18 at 1659, Recovery (Recovery-Hospital Unit) 1742 (New Bag - Provider: Ava Cota, KATINA) PRN Medication Order 02/13/2018 02/14/2018 02/15/2018 albuterol 90 mcg/actuation inhaler 2 puff 2 puff, Inhalation, EVERY 4 HOURS PRN, Starting on Sun02/13/18 at 1700, Until Sun02/15/18 at 1804, Wheezing, Routine, Is there a contraindication to the patient receiving this medication as a nebulizer? Yes 2133 (Not Given - Provider: Annabel Blanc RN - Reason: Patient/family refused) 1024 (Given - Provider: Tamera Raygoza RN) bisacodyl (DULCOLAX) EC tablet 10 mg 10 mg, Oral, 2 TIMES DAILY PRN, Starting on Sun02/13/18 at 1633, Until Sun02/15/18 at 1804, Constipation, DO NOT CRUSH OR OPEN Administer if needed per patient's routine or if no bowel movement within 48 hours to achieve: (1) One bowel movement every 48 hours, AND (2) without straining. If multiple PRN bowel medications ordered, start with lactulose, then oral bisacodyl, then bisacodyl suppository. Multiple medications may be given concomitantly for constipation., Routine bisacodyl (DULCOLAX) suppository 10 mg 10 mg, Rectal, DAILY PRN, Starting on Sun02/13/18 at 1633, Until Sun02/15/18 at 1804, Constipation, Administer if needed per patient's routine or if no bowel movement within 48 hours to achieve: (1) One bowel movement every 48 hours, AND (2) without straining. If multiple PRN bowel medications ordered, start with lactulose, then oral bisacodyl, then bisacodyl suppository. Multiple medications may be given concomitantly for constipation., Routine BUpivacaine-EPINEPHrine 0.25 %-1:200,000 injection (CANCELED) ONCE PRN, Starting on Sun02/13/18 at 1216, Until Sun02/15/18 at 1804, Intra-Operative (Intra-Procedure), Routine 1216 (Given - Provider: Patrick Dumont MD - Comment: mixed with 1ml ketorolac, 0.5ml clonodine) ketorolac (TORADOL) injection 15 mg 15 mg, Intravenous, EVERY 6 HOURS PRN, Starting on Sun02/13/18 at 1523, Until Sun02/15/18 at 1522, Pain, Routine lactulose (CHRONULAC) 20 gram/30 mL oral solution 20-40 g 20-40 g (30-60 mL), Oral, DAILY PRN, Starting on Sun02/13/18 at 1633, Until Sun02/15/18 at 1804, Constipation, Administer if needed per patient's routine or if no bowel movement within 48 hours to achieve: (1) One bowel movement every 48 hours, AND (2) without straining. If multiple PRN bowel medications ordered, start with lactulose, then oral bisacodyl, then bisacodyl suppository. Multiple medications may be given concomitantly for constipation., Routine lidocaine (XYLOCAINE) 10 mg/mL (1 %) injection 3 mg (COMPLETED) 3 mg (0.3 mL), Subcutaneous, ONCE PRN, 1 dose, Starting on Sun02/13/18 at 0940, Until Sun02/13/18 at 1005, for discomfort with PIV insertion, Day of Surgery (Day of Procedure), Routine 1005 (Given - Provider: Julia Levy RN) lidocaine (XYLOCAINE) 10 mg/mL (1 %) injection 3 mg 3 mg (0.3 mL), Subcutaneous, ONCE PRN, 1 dose, Starting on Sun02/13/18 at 1633, Until Sun02/15/18 at 1804, for discomfort with PIV insertion, Recovery (Recovery-Hospital Unit), Routine ondansetron (ZOFRAN) injection 4 mg(Linked Group 2) 4 mg, Intravenous, EVERY 8 HOURS PRN, Starting on Sun02/13/18 at 1633, Until Sun02/15/18 at 1804, Nausea, May repeat times one in 30 minutes if ineffective. If multiple antiemetics are ordered, use ondansetron first, Recovery (Recovery-Hospital Unit) 0551 (See Alternative - Provider: Luis Hall RN) ondansetron (ZOFRAN) tablet 4 mg(Linked Group 2) 4 mg, Oral, EVERY 8 HOURS PRN, Starting on Sun02/13/18 at 1633, Until Sun02/15/18 at 1804, Nausea, Vomiting, If multiple antiemetics are ordered, use ondansetron first. PO Preferred. If patient unable to take PO, may give IV if ordered. May repeat times one in 45 minutes if ineffective., Recovery ([facility]ospital Unit), Routine 0551 (Given - Provider: Luis Hall RN) oxyCODONE (ROXICODONE) immediate release tablet 5-15 mg 5-15 mg, Oral, EVERY 4 HOURS PRN, Starting on Sun02/13/18 at 1523, Until Sun02/15/18 at 1804, Pain, Give 5 mg for mild pain (1-3), 10 mg for moderate pain (4-6) or 15 mg for severe pain (7-10) May give an additional 5 mg in 30 minutes ONCE if pain not relieved., Routine 0316 (Given - Provider: Lori Darling, KATINA)0825 (Given - Provider: Ava Cota, RN)1337 (Given - Provider: Ava Cota, RN)204 (Given - Provider: Luis Hall RN) 08 (Given - Provider: Tamera Raygoza RN) sodium chloride 0.9 % flush 5-20 mL 5-20 mL, Intravenous, EVERY 1 MIN PRN, Starting on Sun02/13/18 at 1633, Until Sun02/15/18 at 1804, flush, Flush pertains to all indwelling lines. Flush per protocol found in the job aid using the link provided on this medication record., Recovery (Recovery-Hospital Unit), Routine Linked Groups Order Group 1: gabapentin (NEURONTIN) capsule 600 mg (COMPLETED)Jump to med 600 mg, Oral, NIGHTLY, 2 doses, First dose on Sun02/13/18 at 2100, Last dose on Sun02/14/18 at 2100, Routine Followed by gabapentin (NEURONTIN) capsule 300 mgJump to med 300 mg, Oral, NIGHTLY, First dose on Sun02/15/18 at 2100, Until Discontinued, Routine Group 2: ondansetron (ZOFRAN) tablet 4 mgJump to med 4 mg, Oral, EVERY 8 HOURS PRN, Starting on Sun02/13/18 at 1633, Until Sun02/15/18 at 1804, Nausea, Vomiting, If multiple antiemetics are ordered, use ondansetron first. PO Preferred. If patient unable to take PO, may give IV if ordered. May repeat times one in 45 minutes if ineffective., Recovery ([facility]ospital Unit), Routine Or ondansetron (ZOFRAN) injection 4 mgJump to med 4 mg, Intravenous, EVERY 8 HOURS PRN, Starting on Sun02/13/18 at 1633, Until Sun02/15/18 at 1804, Nausea, May repeat times one in 30 minutes if ineffective. If multiple antiemetics are ordered, use ondansetron first, Recovery (Recovery[facility]Hospital Unit) documented in this encounter Care Teams Substation Operator Transforming Relationship Specialty Start Date End Date Dandy Driscoll APRN [address] [place] [address] [place] [id number] PCP - General Family Medicine 01/20/16 documented as of this encounter
--- OUTSIDE RECORDS SUMMARY | 2024-02-27 19:36 | XMS_ITS | Encounter Summary ---
[place] [address] Care Team Providers Care Backup Administrator Name Role Phone Dandy Driscoll APRN Primary Care Provider [phone] Reason for Visit * Auth/Cert Specialty Diagnoses [...] Expiration Date Visits Re quested Visits Authorized [id number] 1 Encounter Details Date Type Department Care Team (Late st Contact Info) Description 02/13/2018 9:58 AM EST - 02/13/2018 12:26 PM EST [place] [address] Patrick Dumont MD TOTAL HIP ARTHROPLASTY, ANTERIOR [...] Sign Reading Time Taken Comments Blood Pressure 151/87 02/13/2018 9:38 AM EST Pulse 83 02/13/2018 9:38 AM EST Temperature 36.4 ??C (97.5 ??F) 02/13/2018 9:38 AM ES T Respiratory Rate 16 02/13/2018 9:38 AM EST Oxygen Saturation 95% 02/13/2018 9:38 AM EST Inhaled Oxygen Concentration - - Weight 107.7 kg (237 lb 6.4 oz) 02/13/2018 9:38 AM EST Height 157.5 cm (5' 2) 02/13/2018 9:38 AM EST Body Mass Index 43.42 02/13/2018 9:38 AM EST documented in this encounter Discharge Summaries * Mckayla Pruitt P, MOTORCYCLE MAKER - 02/15/2018 1:22 PM EST Images from the original note were not included. Discharge Summary Patient Name: Stacy Knight Patient Age: 67 y.o. Language: Luxembourgish Race: White Ethnicity: Not nor Admit date: 02/13/2018 Discharge date and time: 02/15/2018 Attending Physician: Patrick Dumont MD Discharge Physician: Patrick Dumont MD Follow-up Recommendations for Providers: See discharge instructions for additional details. Future Appointments Date Time Provider Department Center 03/14/2018 1:15 PM [facility] 3 [facility] Rad Clin 03/14/2018 2:10 PM Patrick Dumont MD [facility] [address] [place] [address] Inpatient Provider Contact Information: Patrick Dumont MD Orthopedics: [phone] After hours and weekends, call [facility] Is/It Project Manager, , and have the Orthopedic resident paged. [...] Delcid) ??? Impaired renal function Operations/Major Procedures: 02/13/2018 Surgeon(s) and Role: Surgeon: Patrick Dumont MD School Resource Officer: Norman Olivas MD, Mao Hernández MD Procedure(s): [...] 50 mg Tab Commonly known as: ULTRAM ftdh-nlpz-ahk-edk-hbs-qmbr-hor [id number] mg Tab Smoking Status at Discharge: Social [...] bowel movement. You can also take an kfzs-bhq-lpdebue medication, Miralax if needed to combat constipation. [...] as much as possible. Call your doctor ([phone]) if you develop: 1. Fever greater than 100.5 2. Severe nausea or vomiting 3. Increasing pain that is not controlled by pain medications 4. Increasing redness, swelling, or drainage from incisions 5. Change in sensation FOLLOW-UP APPOINTMENTS: 1. You will have follow-up appointments at [facility] as indicated below in Future Appointment and Orders. 2. You will need to have x-rays prior to your follow-up appointment on 03/14/2018. Please come to Radiology, desk 3T, 1 hour BEFORE that appointment for these x-rays. Future Appointments Date Time Provider Department Center 03/14/2018 1:15 PM [facility] 3 [facility] 03/14/2018 2:10 PM Patrick Dumont MD [facility] [address] [place] [address] If you have questions or concerns: Sunday through Sunday, 8 AM - 5 PM, please call Dr. Patrick Dumont MD's office at . If it is after 5 PM, the weekend, or holidays, please call and ask to speak with theOrthopedic resident on-call. General Instructions None Future Appointments and Orders Future Appointments and Orders Future Appointments Provider Department Dept Phone 03/14/2018 1:15 PM [facility] 3 [facility] at [place] Arrive at: Reducing System Operator Area [phone] Please go to Reducing System Operator Area ([place] Location). 03/14/2018 2:10 PM Patrick Dumont MD Orthopaedics at [place] Arrive at: Reducing System Operator Area [phone] Future Orders Complete By Expires Referral to [...] Process Instructions: Scheduling Instructions: Comments: Stacy Knight [address] [facility] [id number] (home) Telephone Information: Diagnosis:Left Hip replacement with Unsteady gait Patient's: Hgt: 5'2 Wgt: 237 VENDOR: [facility] Ordering: Front wheel walker Deliver to pt's hospital room #: 311 A Questions: Vendor Name/Contact information: [employer] 107.7 kg, 157.5 cm, for unsteady gait s/p left total hiparthroplasty 02/13/2018 Primary Care Provider: Dandy Driscoll APRN [phone] Discharge References/Attachments None documented in this encounter Discharge Instructions * Patient Instructions* Mckayla Pruitt, LETI - 02/15/2018 1:13 PM EST Activity: 1. [...] bowel movement. You can also take an inbs-azk-hdezhmx medication, Miralax if needed to combat constipation. [...] as much as possible. Call your doctor ([phone]) if you develop: 1. Fever greater than 100.5 2. Severe nausea or vomiting 3. Increasing pain that is not controlled by pain medications 4. Increasing redness, swelling, or drainage from incisions 5. Change in sensation FOLLOW-UP APPOINTMENTS: 1. You will have follow-up appointments at [facility] as indicated below in Future Appointment and Orders. 2. You will need to have x-rays prior to your follow-up appointment on 03/14/2018. Please come to Radiology, desk 3T, 1 hour BEFORE that appointment for these x-rays. Future Appointments Date Time Provider Department Center 03/14/2018 1:15 PM [facility] 3 [facility] 03/14/2018 2:10 PM Patrick Dumont MD [facility] [place] [facility] If you have questions or concerns: [...] has just received anti-medic medication. Patient reports herhusband had several episodes of emesis yesterday, and [...] Time Provider Department Center 03/14/2018 1:15 PM [facility] 3 [facility] [...] check with PT in am . Mechelle Kinght RNCM #[id number] * Mechelle Knight RN - 02/14/2018 10:37 AM EST The patient/patient support representative has been provided a list of /DME vendors which serve their preferred geographic area. A letter describing our affiliations was reviewed with them and they were educated about their right to choose where referrals are placed. Patient requests referral to Ortho care Expected date of discharge: 02/14/18 Pt has appt. with [facility] for Sunday 8:30 am Referral routed to the Grain Broker And Market Operator for matching with agency/vendor and to provide any required information. Mechelle Knight RNCM #[id number] * Norman Olivas - 02/14/2018 6:23 AM [...] ??C (98.6 ??F)] Heart Rate: [69-87] Resp: [10-18] BP: (110-157)/(62-109) Intake/Output Summary (Last 24 hours) at 02/14/2018 0624 Last data filed at 02/14/2018 0335 Gross [...] Time Provider Department Center 03/14/2018 1:15 PM [facility] 3 [facility] 03/14/2018 2:10 PM Patrick Dumont MD [facility] [facility] Associated attestation - Patrick Dumont MD - 02/14/2018 8:03 AM EST Patient seen and examined on rounds. Agree with resident note. In brief, doing well. Work with PT today. Patrick Dumont M.D. MS Department of Orthopaedics * Ace Chaves MD [...] Time Provider Department Center 03/14/2018 1:15 PM [facility] 3 [facility] 03/14/2018 2:10 PM Patrick Dumont MD [facility] [address] [place] [address] CLIN * Ava Cota RN - 02/13/2018 4:35 PM EST [facility] s/p L ENA. [...] with assist, home with home health Star Cox, PT Pager: [phone] Inpatient Physical Therapy 02/15/18 1113 Rehab Evaluation [...] Status left lower extremity Transfer Assessment/Treatment Bed-Chair [place] (Transfers) supervision required [place] (Sit-Stand Transfers) supervision required [place] (Stand-Sit Transfers) supervision required Wui-Bcfuf-Pdr Assistive Device (Transfers) rolling walker Maintain Weight Bearing Status (Transfers) able to maintain weight bearing status Comment (Transfers) multiple attempts to stand; use of momentum Gait Assessment/Treatment [place] (Gait) supervision required Assistive Device (Gait) rolling walker Distance in Feet (Gait) 100' Gait Pattern Analysis swing-to gait Deviations (Gait) lynda decreased;step length decreased;skj-mu-jhdky clearance decreased Maintain Weight Bearing Status (Gait) able to maintain weight bearing status Safety Issues (Gait) weight-shifting ability decreased Comment (Gait) vc's for gait sequencing and technique Stairs Assessment/Treatment Number of Stairs (Stairs) 5 stairs x2 Handrail Location (Stairs) left side (ascending) [place] (Stairs) supervision required Assistive Device (Stairs) straight cane Technique (Stairs) jtvu-ad-xznq (ascending);ftrv-hf-obai (descending) Maintain Weight Bearing Status (Stairs) able to maintain weight bearing status Safety Issues (Stairs) weight-shifting ability decreased Comment (Stairs) vc's for sequencing and technique AM-[facility] Basic Mobility AM-[facility] Mobility Completed? Yes Turning from your [...] wheelchair) 4 - None To walk in [facility]? 4 - None Climbing 3-5 steps with a railing?* 3 - A Little AM-[facility] Basic Mobility Raw Score 21 Basic Mobility Standardized T-Scale Score 50.25 Basic Mobility CMS 0-100% 28.97 AM-[facility] Basic Mobility CMS Modifier CJ Plan of Care Review Plan Of Care Reviewed With patient Bed Mobility Goal Bed Mobility Goal, Date Established 02/14/18 Bed Mobility Goal, Time to Achieve 1 wk Bed Mobility Goal, Activity Type all bed mobility activities Bed Mobility Goal, [place] Level conditional independence Bed Mobility Goal, Assistive Device leg iap displays analyst Gait Training Goal Gait Training Goal, Date Established 02/14/18 Gait Training Goal, Time to Achieve 1 wk Gait Training Goal, [place] Level supervision required Gait Training Goal, Assist [...] 1 wk Transfer Training Goal, Activity Type lpk-ho-apmkx/qsmgb-oy-gsl;ddu-wc-vjkno/clbgg-wj-rbn Transfer Train Goal, [place] Level supervision required Transfer Training Goal, Assist [...] assessment. * Plan of Care - Agueda Jacob, OT - 02/15/2018 9:20 AM EST Occupational [...] with assist, home with home health Pager: [phone] AGUEDA JACOB, OT 02/15/2018 Occupational Therapy Rehabilitation [...] Living Environment Living Environment Comment Pt lives [place], [place] with her significant other. Both are [...] Mobility) already at the eob Transfer Assessment/Treatment [place] (Sit-Stand Transfers) supervision required [place] (Stand-Sit Transfers) supervision required Gmo-Ziutl-Kat Assistive Device (Transfers) rolling walker Comment (Transfers) uses momentum to stand Gait Assessment/Treatment Assistive Device (Gait) rolling walker [place] (Gait) supervision required Distance in Feet (Gait) [...] Comment (Bathing) Pt plans to [facility] at [facility], which has a walk in shower with seat. can stand by for task. Issue LH sponge to improve thoroughness with task given decreased ROm. Lower Body Dressing Assessment/Training Assistive Devices (LB Dressing) application spec;sock-aid;long-handled shoe horn;dressing stick Position (LB Dressing) sitting;supported standing [place] Level (LB Dressing) supervision required;verbal cues required;set [...] shown today. Pt could don/doff pants using application spec as shown today. Toileting Assessment/Training Assistive Devices (Toileting) toilet paper aid Position (Toileting) sitting;supported standing [place] Level (Toileting) supervision required;set up required;verbal cues [...] rehab pending progress) Star Cox, PT Pager: [phone] Inpatient Physical Therapy 2017 PT Evaluation Code [...] evaluation Total Evaluation Minutes, Physical Therapy 34 (EVAL, ALFONSO) Patient Effort good Symptoms Noted During/After Treatment increased pain;fatigue General Information Patient Profile Review yes Onset of Illness/Injury or Date of Surgery 02/13/18 Referring Physician Julia Patient/Family/Caregiver Comments/Observations can I have a leg iap displays analyst Pertinent History of Current Problem Pt is a 67 y/o female s/p L ENA Precautions/Restrictions weight bearing;fall Precautions Comments WBAT LLE; standard precautions Treatment Number PT 1 Left Lower Extremity (Weight Bearing Status) weight-bearing as tolerated Living Environment Patient population Adult Living Environment Living Environment Comment Pt lives [place], [place] with her significant other. Both are [...] Mobility Assessment/Treatment Assistive Device (Bed Mobility) leg iap displays analyst Scoot/Bridge [place] (Bed Mobility) contact guard assist Ndfzmy-mf-Cci [place] (Bed Mobility) contact guard assist Safety Issues (Bed Mobility) decreased use of legs for bridging/pushing Impairments (Bed Mobility) pain;strength decreased;balance impaired Comment (Bed Mobility) increased time to complete; difficulties noted Transfer Assessment/Treatment Bed-Chair [place] (Transfers) minimum assist (75% patient effort) Jkr-Qsbod-Qvb Assistive Device (Transfers) rolling walker [place] (Sit-Stand Transfers) minimum assist (75% patient effort) [place] (Stand-Sit Transfers) minimum assist (75% patient effort) Qyv-Obixn-Rvc Assistive Device (Transfers) gait belt;rolling walker Maintain Weight Bearing Status (Transfers) able to maintain weight bearing status Comment (Transfers) multiple attempts to stand; use of momentum; vc's for precautions Gait Assessment/Treatment [place] (Gait) contact guard assist Assistive Device (Gait) rolling walker;gait belt Distance in Feet (Gait) 40' Gait Pattern Analysis swing-to gait Deviations (Gait) lynda decreased;step length decreased;esl-bo-zpdwu clearance decreased;weight-shifting ability decreased Maintain Weight Bearing Status (Gait) able to maintain weight bearing status Safety Issues (Gait) weight-shifting ability decreased;balance decreased during turns Comment (Gait) decreased lynda; needs different walker; poor gait mechanics; vc's for sequencing and techniuqe AM-[facility] Basic Mobility AM-[facility] Mobility Completed? Yes [...] 4 - None To walk in hospital rooom? 3 - A Little Climbing 3-5 steps with a railing?* 2 - A Lot [facility] Basic Mobility Raw Score 18 Basic Mobility Standardized T-Scale Score 43.63 Basic Mobility CMS 0-100% 46.58 AM-[facility] Basic Mobility CMS Modifier CK Motor Skills/Interventions [...] all bed mobility activities Bed Mobility Goal, [place] Level conditional independence Bed Mobility Goal, Assistive Device leg iap displays analyst Gait Training Goal Gait Training Goal, Date Established 02/14/18 Gait Training Goal, Time to Achieve 1 wk Gait Training Goal, [place] Level supervision required Gait Training Goal, Assist Device walker, rolling Gait Training Goal, Distance to Achieve 75' Gait Training Goal, Additional Goal Pt will ascend/descend 2 stairs w/ 1 rail and cane with cGA Transfer Training Goal Transfer Training Goal, Date Established 02/14/18 Transfer Training Goal, Time to Achieve 1 wk Transfer Training Goal, Activity Type qou-lk-wcska/qaois-dg-tzc;eoq-vz-fyqje/gfdwl-te-nji Transfer Train Goal, [place] Level supervision required Transfer Training Goal, Assist [...] Depression Talked with patient about need for real estate services administrator if needed she denied need Substance Use/Abuse: Social History Tobacco Use ??? Smoking status: Former Smoker Packs/day: 0.00 Years: 0.50 Pack years: 0.00 Types: Cigarettes Last attempt to quit: 1980 Years since quittin.8 ??? Smokeless tobacco: Never Used Substance Use Topics ??? Alcohol use: No ??? Drug use: No Other Pertinent/Service Specific Information: Health/Prescription Coverage: Primary Insurance: MEDICARE Secondary Insurance: [place] Prescription Coverage: Yes Preferred Pharmacy: As listed Primary Care Provider: Dandy Driscoll APRN [phone] Patient/Caregiver Goals of Treatment: To get home [...] of care planning. Mechelle Knight RN Pager: [phone] * Plan of Care - Lori Darling [...] and ambulation]: 2 assist with walker to [facility] Supervision [direct monitoring required during toileting and ADLs]: hands on Surveillance [continuous indirect monitoring]: sil Goal: Individualization & Mutuality Outcome: Ongoing (Interventions Implemented as Appropriate) 02/14/18311 Individualization Patient Specific Goals pain control, mobilization Goal: Fall Prevention-Safe Patient Handling Outcome: Ongoing (Interventions Implemented as Appropriate) 02/13/18189902/14/1838 Thomas Fall Risk History of Falling -- [...] Dumont MD - 02/13/2018 1:58 PM EST [facility] Operative Note Patient Name: Stacy Knight : [id number] MR#: [id number] Date of surgery: 02/13/2018 Preoperative diagnosis: Left hip osteoarthritis Postoperative diagnosis: Left hip osteoarthritis Procedure: Left total hip arthroplasty Anesthesia: General Surgeon: Patrick Dumont MD School Resource Officer: Norman Olivas MD, Mao Hernández MD Estimated blood loss: 400 cc Fluids: 1000 cc Urine output: Due to Void Drains: None Complications: None Implants: 1. 11 Corail standard femoral stem 2. 48 mm [place] [employer] acetabular shell 3. 32 x [...] PM EST Office Visit Gyne[place] [address] Jordyn Francisco MD [facility] [address] OBSTETRICS [place] [address] Scheduled Referrals Name Type Priority Associated Diagnoses [...] IMPLANTABLE DEVICES SCAN 02/13/2018 12:00 AM EST NURSE ADVISOR SCAN 02/13/2018 12:00 AM EST documented in this encounter Results * (ABNORMAL) Differential, Automated (02/15/2018 4:13 AM EST) Neutrophil % 85.2 % [facility] Neutrophil Absolute 13.20(H) 1.70 - 6.10 x10(3)/mc L [facility] Lymph % 7.1 % [facility] Lymphocytes Abs 1.1 0.9 - 3.2 x10(3)/mc L [facility] Monocyte % 6.8 % [facility] Monocyte Abs 1.1(H) 0.3 - 0.9 x10(3)/mc L [facility] Eos % 0.1 % [facility] Eosinophils Abs 0.0 0.0 - 0.4 x10(3)/mc L [facility] Basophil % 0.1 % [facility] Baso Absolute 0.0 0.0 - 0.1 x10(3)/mc L [facility] Immature Gran % 0.70 % [facility] Comment: Immature granulocytes(IG's)percentage and absolute count will include metamyelocytes, myelocytes, and promyelocytes. Blood smears from CBCs yielding IG's will be scanned manually for concordance. If this scan disagrees with the automated IG or if promyelocytes are noted, a manual differential will be performed. Immature Gran Absolute 0.11(H) 0.00 - 0.04 x10(3)/mc L [facility] Blood specimen (specimen) 02/15/2018 4:13 AM EST 02/15/2018 4:21 AM EST Narrative Resulting Agency Comment Spec In Lab Norman Olivas MD HEMATOLOGY ORDERABLE S [facility] [place] [address] * (ABNORMAL) Hemogram (02/15/2018 4:13 AM EST) White Blood Cell 15.5(H) 4.0 - 9.5 x10(3)/mc L [facility] Red Blood Cell 3.49(L) 4.00 - 5.21 x10(6)/mc L [facility] Hemoglobin 11.0(L) 11.7 - 15.5 gm/dL [facility] Hematocrit 33.4(L) 35.7 - 45.8 % [facility] Mean Cell Volume 95.7(H) 82.6 - 94.[address] [facility] Mean Cell Hemoglobin 31.5 27.1 - 32.[address] [facility] Mean Cell Hemoglobin Concentration 32.9 31.7 - 35.0 gm/dL [facility] Platelet 260 145 - 357 x10(3)/mc L [facility] RDW Standard Deviation 45.9 37.0 - 46.[address] [facility] RDW coefficient of variation 13.0 11.5 - 14.1 % [facility] Mean Platelet Volume 11.3 7.6 - 12.[address] [facility] NRBC% auto 0.0 % [facility] NRBC Absolute 0.000 0.000 - 0.000 x10(3)/mc L [facility] Blood specimen (specimen) 02/15/2018 4:13 AM EST 02/15/2018 4:21 AM EST Narrative Resulting Agency Comment Spec In Lab Norman Olivas MD HEMATOLOGY ORDERABLE S [facility] [place] [address] * (ABNORMAL) Basic Metabolic Panel (non-fasting) (02/15/2018 4:13 AM EST) Glucose 158 65 - 199 mg/dL [facility] Comment:Diabetes: >=200 mg/d L plus symptoms Blood Urea Nitrogen 18 8 - 18 mg/dL [facility] Comment:delta result recheck ed-KLA Creatinine 0.68(L) 0.70 - 1.20 mg/dL [facility] Sodium 139 135 - 145 mmol/L [facility] Potassium 4.6 3.5 - 5.0 mmol/L [facility] Comment: Please note: ??Patients with WBC >100,000 may have falsely elevated Potassium levels. ??For accurate Potassium quantification in these patients send serum separator tube (gold top) for subsequent determinations. ??Contact the Clinical Chemistry Laboratory if there are any questions. Chloride 98 98 - 107 mmol/L [facility] Carbon Dioxide 27 22 - 31 mmol/L [facility] Anion Gap 14 5 - 15 mmol/L [facility] Calcium 9.3 8.5 - 10.5 mg/dL [facility] Comment:delta result recheck ed-KLA Est Glomerular Filtration Rate 91 >=60 mL/min/1. 73 m?? [facility] Comment: The eGFR was calculated using the CKD-EPI equation. As with all creatinine based estimates of kidney function, eGFR values calculated with the CKD-EPI equation are not accurate in patients with acute kidney failure, extremes of body mass or the acutely ill. http://[employer]/DHMCnkf eGFR 106 >=60 mL/min/1. 73 m?? [facility] Comment: The eGFR was calculated using the CKD-EPI equation. As with all creatinine based estimates of kidney function, eGFR values calculated with the CKD-EPI equation are not accurate in patients with acute kidney failure, extremes of body mass or the acutely ill. http://[employer]/DHnkf Blood specimen (specimen) 02/15/2018 4:13 AM EST 02/15/2018 4:21 AM EST Narrative Resulting Agency Comment Spec In Lab Patrikc Dumont MD CHEMISTRY ORDERABLES [facility] [place] [address] * (ABNORMAL) Differential, Automated (02/14/2018 4:04 AM EST) Neutrophil % 90.4 % [facility] Neutrophil Absolute 11.76(H) 1.70 - 6.10 x10(3)/mc L [facility] Lymph % 4.7 % [facility] Lymphocytes Abs 0.6(L) 0.9 - 3.2 x10(3)/mc L [facility] Monocyte % 4.2 % [facility] Monocyte Abs 0.5 0.3 - 0.9 x10(3)/mc L [facility] Eos % 0.0 % [facility] Eosinophils Abs 0.0 0.0 - 0.4 x10(3)/mc L [facility] Basophil % 0.2 % [facility] Baso Absolute 0.0 0.0 - 0.1 x10(3)/mc L [facility] Immature Gran % 0.50 % [facility] Comment: Immature granulocytes(IG's)percentage and absolute count will include metamyelocytes, myelocytes, and promyelocytes. Blood smears from CBCs yielding IG's will be scanned manually for concordance. If this scan disagrees with the automated IG or if promyelocytes are noted, a manual differential will be performed. Immature Gran Absolute 0.07(H) 0.00 - 0.04 x10(3)/mc L [facility] Blood specimen (specimen) 02/14/2018 4:04 AM EST 02/14/2018 4:17 AM EST Narrative Resulting Agency Comment Spec In Lab Norman Olivas MD HEMATOLOGY ORDERABLE S [facility] [place] [address] * (ABNORMAL) Hemogram (02/14/2018 4:04 AM EST) White Blood Cell 13.0(H) 4.0 - 9.5 x10(3)/mc L [facility] Red Blood Cell 3.46(L) 4.00 - 5.21 x10(6)/mc L [facility] Hemoglobin 11.0(L) 11.7 - 15.5 gm/dL [facility] Hematocrit 33.3(L) 35.7 - 45.8 % [facility] Mean Cell Volume 96.2(H) 82.6 - 94.[address] [facility] Mean Cell Hemoglobin 31.8 27.1 - 32.[address] [facility] Mean Cell Hemoglobin Concentration 33.0 31.7 - 35.0 gm/dL [facility] Platelet 218 145 - 357 x10(3)/mc L [facility] RDW Standard Deviation 46.3(H) 37.0 - 46.[address] [facility] RDW coefficient of variation 13.1 11.5 - 14.1 % [facility] Mean Platelet Volume 10.9 7.6 - 12.[address] [facility] NRBC% auto 0.0 % [facility] NRBC Absolute 0.000 0.000 - 0.000 x10(3)/mc L [facility] Blood specimen (specimen) 02/14/2018 4:04 AM EST 02/14/2018 4:17 AM EST Narrative Resulting Agency Comment Spec In Lab Norman Olivas MD HEMATOLOGY ORDERABLE S [facility] [place] [address] * (ABNORMAL) Basic Metabolic Panel (non-fasting) (02/14/2018 4:04 AM EST) Glucose 174 65 - 199 mg/dL [facility] Comment:Diabetes: >=200 mg/d L plus symptoms Blood Urea Nitrogen 11 8 - 18 mg/dL [facility] Creatinine 0.55(L) 0.70 - 1.20 mg/dL [facility] Sodium 139 135 - 145 mmol/L [facility] Potassium 4.4 3.5 - 5.0 mmol/L [facility] Comment: Please note: ??Patients with WBC >100,000 may have falsely elevated Potassium levels. ??For accurate Potassium quantification in these patients send serum separator tube (gold top) for subsequent determinations. ??Contact the Clinical Chemistry Laboratory if there are any questions. Chloride 101 98 - 107 mmol/L [facility] Carbon Dioxide 25 22 - 31 mmol/L [facility] Anion Gap 13 5 - 15 mmol/L [facility] Calcium 8.1(L) 8.5 - 10.5 mg/dL [facility] Est Glomerular Filtration Rate 98 >=60 mL/min/1. 73 m?? [facility] Comment: The eGFR was calculated using the CKD-EPI equation. As with all creatinine based estimates of kidney function, eGFR values calculated with the CKD-EPI equation are not accurate in patients with acute kidney failure, extremes of body mass or the acutely ill. http://[employer]/DHMCnkf eGFR 113 >=60 mL/min/1. 73 m?? [facility] Comment: The eGFR was calculated using the CKD-EPI equation. As with all creatinine based estimates of kidney function, eGFR values calculated with the CKD-EPI equation are not accurate in patients with acute kidney failure, extremes of body mass or the acutely ill. http://[employer]/DHMCnkf Blood specimen (specimen) 02/14/2018 4:04 AM EST 02/14/2018 4:17 AM EST Narrative Resulting Agency Comment Spec In Lab Patrick Dumont MD CHEMISTRY ORDERABLES Performing Organization Address City/State/[facility] Co de Phone Number [facility] [place] [phone] * XR Pelvis (Generic) (02/13/2018 3:46 PM [...] a radiologist interpretation. ?? Patrick Dumont MD IMG FLUORO ORDERABLE S Performing Organization Address City/State/[facility] Co de Phone Number [place], [place] * (ABNORMAL) BLOOD GAS 2 ARTERIAL (02/13/2018 1:32 PM EST) pH, Arterial 7.41 7.35 - 7.45 [facility] PCO2, Arterial 42 35 - [address] [facility] PO2, Arterial 75(L) 85 - [address] [facility] Bicarbonate, Arterial 26.7(H) 20.0 - 26.0 mmol/L [facility] Base Excess, Arterial 1.8 -3.0 - 3.0 mmol/L [facility] Hgb Blood Gas 13.6 11.7 - 15.5 gm/dL [facility] Oxyhemoglobin, Arterial 94.9 94.0 - 97.0 % [facility] Carboxyhemoglob in, Arterial 0.6 % [facility] Comment: Nonsmokers: 0.5-1.5% COHB Smokers: Variable, but usually less than 10% Toxic: 20-30% COHB Lethal: Greater than 60% COHB Methemoglobin, Arterial 0.3 <=1.5 % [facility] Na Whole Blood 138 135 - 145 mmol/L [facility] K Whole Blood 3.9 3.5 - 5.0 mmol/L [facility] Comment: Please note: Patients with WBC >100,000 may have falsely elevated Potassium levels. Contact the Clinical Chemistry Laboratory if there are any questions. ICa Whole Blood 1.16 1.15 - 1.33 mmol/L [facility] Comment: Note: ??Total bilirubin higher than 20 mg/dL may lead to falsely low ionized calcium. CL Whole Blood 105 98 - 107 mmol/L [facility] Gluc Whole Bld 160 65 - 199 mg/dL [facility] Comment:Diabetes: >=200 mg/d L plus symptoms. Lactate WB 1.9 0.5 - 2.2 mmol/L [facility] FIO2 Art 92 % [facility] Flow Art 1.0 LPM [facility] PF Ratio Art 82 [facility] Temp Art 35.9 Celsius [facility] Blood specimen (specimen) 02/13/2018 1:32 PM EST 02/13/2018 1:32 PM EST Patrick Dumont MD POINT OF CARE TEST O RDERABLES Performing Organization Address City/State/[facility] Co de Phone Number [facility] [place] [address] * SCAN DOC: IMPLANTABLE DEVICES (02/13/2018 12:00 AM EST) Narrative 02/13/2018 12:00 AM EST Ordered by an unspecified provider. Scanning Provider MEDIA MGR SCAN EXT O RDR/RSLT * SCAN DOC: NURSE ADVISOR (02/13/2018 12:00 AM EST) Anatomical Region Laterality [...] Given 02/14/2018 8:50 PM EST 2 .Inhalation BUpivacaine-EPINEPHrine 0.25 %-1:200,000 injection ONCE PRN, Starting on Sun02/13/18 at 1216, Until Sun02/15/18 at 1804, Intra-Operative (Intra-Procedure), Routine Given 02/13/2018 12:16 PM EST 50 mLs buPROPion (WELLBUTRIN XL) XL tablet 150 mg 150 mg, Oral, DAILY, First dose on Sun02/14/18 at 0900, Until Discontinued, DO NOT CRUSH OR OPEN, Routine Given 02/15/2018 8:21 AM EST 150 mg Given 02/14/2018 8:24 AM EST 150 mg celecoxib (CeleBREX) capsule 200 mg 200 mg, Oral, 2 TIMES DAILY, First dose on Sun02/13/18 at 2100, Until Discontinued, Routine Given 02/15/2018 8:21 AM EST 200 mg Given 02/14/2018 8:49 PM EST 200 mg Given 02/14/2018 8:25 AM EST 200 mg ondansetron (ZOFRAN) injection 4 mg 4 [...] Given 02/13/2018 9:35 PM EST 5 mLs verapamil (CALAN-SR) CR tablet 240 mg 240 [...] Routine 1737 (Given - Provider: Ava Cota RN)2134 (Given - Provider: Annabel Blanc RN) 0639 (Given - Provider: Lori Darling RN)1337 (Given - Provider: Ava Cota RN)2147 (Given - Provider: Luis Hall RN) 0550 (Given - Provider: Luis Hall RN)1330 (Given - Provider: Tamera Raygoza RN) aspirin EC tablet 81 mg 81 mg, Oral, 2 TIMES DAILY, First dose on Sun02/13/18 at 2100, Until Discontinued, Routine 2133 (Given - Provider: Annabel Blanc RN) 0825 (Given - Provider: Ava Cota RN)2048 (Given - Provider: Luis Hall RN) 0822 (Given - Provider: Tamera Raygoza RN) budesonide-formoterol (SYMBICORT) 160-4.5 mcg/actuation inhaler 2 Inhalation 2 .Inhalation , Inhalation, 2 TIMES DAILY, First dose on Sun02/13/18 at 2100, Until Discontinued, Routine 2099 (Not Given - Provider: Annabel Blanc RN - Reason: Patient/family refused) 08 (Not Given - Provider: Ava Cota RN - Reason: Patient/family refused)2049 (Given - Provider: Luis Hall RN) 102 (Given - Provider: Tamera Raygoza RN) buPROPion (WELLBUTRIN XL) XL tablet 150 mg 150 mg, Oral, DAILY, First dose on Effie 02/14/18 at 0900, Until Discontinued, DO NOT CRUSH OR OPEN, Routine 08 (Given - Provider: Ava Cota RN) 08 [...] RN)2048 (Given - Provider: Luis Hall, KATINA) 08 (Given - Provider: Tamera Raygoza, KATINA) dexamethasone (DECADRON) tablet 4 mg (COMPLETED) 4 mg, Oral, DAILY, 2 doses, First dose on Sun02/13/18 at 1700, Last dose on Sun02/14/18 at 0900, Routine 173 (Given - Provider: Ava Cota RN) 08 (Given - Provider: Ava Cota RN) gabapentin [...] Blanc RN) 2047 (Given - Provider: Luis Hall, KATINA) pantoprazole (PROTONIX) tablet 20 mg 20 mg, Oral, DAILY, First dose on Sun02/13/18 at 1700, Until Discontinued, DO NOT CRUSH OR OPEN 173 (Given - Provider: Ava Cota RN) 08 (Given - Provider: Ava Cota RN) 08 (Given - Provider: Tamera Raygoza RN) polyethylene glycol (MIRALAX) packet 17 g 17 g, Oral, 2 TIMES DAILY, First dose on Sun02/13/18 at 2100, Until Discontinued, Routine 2099 (Not Given - Provider: Annabel Blanc RN - Reason: Patient/family refused) 0833 (Given - Provider: Ava Cota RN)2048 (Given - Provider: Luis Hall RN) 08 (Given - Provider: Tamera Raygoza, KATINA) senna-docusate (PERICOLACE) 8.6-50 mg per tablet 2 tablet 2 tablet, Oral, 2 TIMES DAILY, First dose on Sun02/13/18 at 2100, Until Discontinued, Routine 2132 (Given - Provider: Annabel Blanc RN) 09 (Not Given - Provider: Ava Cota RN - Reason: Patient/family refused)2048 (Given - Provider: Luis Hall RN) 08 (Given - Provider: Tamera Raygoza RN) sodium chloride 0.9 % flush 5 mL 5 mL, Intravenous, 2 TIMES DAILY, First dose on Sun02/13/18 at 2100, Until Discontinued, Recovery (Recovery-Hospital Unit), Routine 2134 (Given - Provider: Annabel Blanc RN) 09 (Not Given - Provider: Ava Cota RN - Reason: See comment - Comment: infusing)2050 (Given - Provider: Luis Hall RN) 08 (Given - Provider: Tamera Raygoza RN) verapamil [...] Procedure) 1000 (New Bag - Provider: Julia R Lynde, RN)1117 (New Bag - Provider: Mookie Mota Record)1403 (New Bag - Provider: Mookie Mota Record) sodium chloride 0.9% infusion () 100 mL/hr, Intravenous, CONTINUOUS, Starting on Sun02/13/18 at 1700, Until Effie 02/14/18 at 1659, Recovery (Recovery-Hospital Unit) 1742 (New Bag - Provider: Ava Cota RN) PRN Medication Order 02/13/2018 02/14/2018 02/15/2018 albuterol 90 mcg/actuation inhaler 2 puff 2 puff, Inhalation, EVERY 4 HOURS PRN, Starting on Sun02/13/18 at 1700, Until Sun02/15/18 at 1804, Wheezing, Routine, Is there a contraindication to the patient receiving this medication as a nebulizer? Yes 2134 (Not Given - Provider: Annabel Blanc RN [...] Unit) 0551 (See Alternative - Provider: Luis Hall, RN) ondansetron (ZOFRAN) tablet 4 mg(Linked Group [...] Unit), Routine 0551 (Given - Provider: Luis Hall, RN) oxyCODONE (ROXICODONE) immediate release tablet 5-15 [...] relieved., Routine 0316 (Given - Provider: Lori Darling RN)0825 (Given - Provider: Ava Cota, KATINA)1337 (Given - Provider: Ava Cota, KATINA)2047 (Given - Provider: Luis Hall, KATINA) 0829 (Given - Provider: Tamera Raygoza RN) sodium [...] Unit) documented in this encounter Care Teams Backup Administrator Relationship Specialty Start Date End Date Dandy Driscoll APRN [address] [place] [address] [place] [address] PCP - General Family Medicine 01/20/16 documented as of this encounter
--- OUTSIDE RECORDS SUMMARY | 2024-02-27 19:36 | XMS_ITS | Encounter Summary ---
Author Organization [facility] Address [facility] [place] [address] Care Team Providers Care Tire Fixer Name Role Phone Dandy Driscoll APRN Primary Care Provider [phone] Reason for Visit * Auth/Cert Specialty Diagnoses [...] Expiration Date Visits Re quested Visits Authorized [id number] 1 1 Encounter Details Date Type Department Care Team (Late st Contact Info) Description 02/13/2018 11:17 AM EST Anesthesia Event [place] [address] Elle Olmstead MD [facility] [place] [address] Anesthesia Record Procedure Summary Procedure Name Responsible Anesthesiologist Anesthesia Start Time Anesthesia Stop Time TOTAL HIP ARTHROPLASTY, ANTERIOR APPROACH (WRVU 19.6) (Left: Hip) Elle Olmstead MD 02/13/18 1117 02/13/18 1457 Events Date Time Event Comment 02/13/2018 1008 1117 AN Verify 1117 Start 1117 An Start Data 1128 An Induction 1133 An Intubation 1143 Anesthesia Ready 1158 Procedure Start 1324 ABG Data Arterial Blood Gas result: pH 7.396 pCO2 44.5 pO2 80.9 %O2 Sat 94.9 FiO2 92 HCO3 26.7 BE 1.8 Hb 13.6 K 3.93 Glucose 160 Lactate 1.87 1442 Extubation/LMA Out 1445 an stop data 1456 Recovery or ICU Handoff April ent care was transferred to the destination unit staff after review of the patient's medical history, current anesthetic/surgical status and plan, according to the Provider Handoff Checklist. 1457 Stop Meds Name Total Midazolam 2 mg fentaNYL 100 mcg IV Lidocaine 40 mg Propofol 120 mg Rocuronium 70 mg Ondansetron 8 mg Neostigmine 5 mg Glycopyrrolate 0.4 mg Tranexamic Acid 1,600 mg Dexmedetomidine 20 mcg ceFAZolin 2 g Propofol INF 300.48 mg HYDROmorphone 0.8 mg lactated Ringers infusion 1,000 mL 1,000 mL * Agents Name O2 Air N2O Sevoflurane (et) * Blood No blood administrations on file. Lines, Drains, and Airways Type Details Placement Removal Incision 11/11/12; knee; LDA not present upon assessment; 01/22/21; 1112 11/11/12 0000 by Pam Martines RN 01/22/21 1112 by Kendy Warren, RN (RETIRED) Peripheral IV Line - Single Lumen 02/13/18; 1001; median cubital vein (antecubital fossa), left; [id number] catheter system; 20 gauge, 1 in length; age-appropriate response, appears comfortable, tolerated well; 01/12/21 (LDA Cleanup utility RA#[id number]); 1650 (LDA Cleanup utility RA#[id number]) 02/13/18 1001 by Julia Levy, RN 01/12/21 1650 by Ricardo Cohen ETT Mask Ventilation: Ea otto (1); ETT Type: Cuffed, Oral; ETT Size: 7 mm; Mac Blade: 3; Notes: Asleep, Pre-O2, Cricoid Pressure, Stylette; Attempts: 1; Laryngoscopy Grade: 1; ETT Placement Verified By: Auscultation, Capnometry, Visual; Secured at Teeth: 22 cm; Inserted by: Wang Man; Removal Date: 02/13/18; Removal Time: 1442 02/13/18 1138 by Record, Mookie Mota 02/13/18 1442 by Record, Mookie Mota Incision 02/13/18; 1219; (hip ); LDA not present upon assessment; 01/22/21; 1112 02/13/18 1219 by Wojciech Allen, RN 01/22/21 1112 by Kendy Warren RN documented in this encounter Social History [...] OR Notes * Anesthesia Postprocedure Evaluation - Elle Olmstead MD - 02/13/2018 3:55 PM EST [facility] Department of Anesthesiology Post-procedure Note Patient: Stacy Knight Procedure Summary Date: 02/13/18 Room / Location: [facility] OR [facility] MAIN OR Anesthesia Start: 1116 Anesthesia Stop: 1456 Procedures: @TOTAL HIP ARTHROPLASTY, ANTERIOR APPROACH (WRVU 20.72) (Left Hip) HIP INTRAOP RADIOLOGIC EXAMINATION, UNILATERAL, W PELVIS; 4+ VIEWS (WRVU 0.27) (Left ) MODIFIER CORAIL FEMORAL STEM DEPUY (N/A Hip) MODIFIER PINNACLE ACETABULUM DEPUY (N/A Hip) Diagnosis: Primary osteoarthritis of left hip (left hip oa) Surgeon: Patrick Dumont MD Responsible Provider: Elle Olmstead MD Anesthesia Type: general ASA Status: 2 All Anesthesia Providers: Anesthesiologist: Elle Olmstead MD Orchardist: Mookie Man MD Most Recent Vitals: 02/13/18 1530 BP: 135/83 Pulse: 74 Resp: 17 Temp: SpO2: 97% Pain 0(pt denies pain) (02/13/18 1530) Patient Location: PACU/[facility] Level of Consciousness: Awake and Alert Pain Management: Satisfactory Analgesia PONV: None Cardiovascular Status: At Baseline Respiratory Status: At Baseline, Stable Respiratory Status and Supplemental O2 (NC or FM) Postoperative Fluid Status: Possible Anesthetic Complications: NONE apparent at time of evaluation Final Primary Anesthesia Type: General (The anesthetic type performed was the same as planned.) Comments: * Anesthesia Preprocedure Evaluation - Elle Olmstead MD - 02/12/2018 8:27 PM EST Images from the original note were not included. Pre-Anesthesia Evaluation for: Stacy Knight a 67 [...] COMPLETE performed by Carlos Delcid MD at [facility] MAIN OR Social History Tobacco Use ??? [...] or weight on file to calculate BMI. Airway Assessment: Mallampati: III Neck ROM: full Cardiovascular Assessment: Rhythm: regular Pulmonary Assessment: breath sounds clear to auscultation Dental Assessment: Misc Assessment: IV access: Peripheral line Anesthesia Plan: ASA 2 general, with a(n) intravenous induction 67 y.o., 111 kg female with left hip osteoarthritis presenting for left ENA. ?? PMH significant for - HTN on verapamil. outpt BPs 140s/70s - GERD - COPD on advair, albuterol inhaler - depression on wellbutrin - chronic pain on tramadol, flexeril, & naproxen ?? Anesthetic hx: No reported prior complications with anesthesia Airway hx: Gr 1 view with cmac ?? EKG 2018 - NSR, normal EKG - Smoking history: she reports that she quit smoking about 38 years ago. Her smoking use included cigarettes. She smoked 0.00 packs per day for 0.50 years. she has never used smokeless tobacco. Patient's documented history was negative for seizures, CVA, hepatic/renal disease or MARTHA. Allergies: -- Isopropyl Alcohol -- Rash -- Meperidine Hcl -- Other (See Comments) -- Very Loopy -- Penicillins -- Other (See Comments) -- SWELLS UP -- Propoxyphene Hcl -- Itching Labs: 11/15/17 1208 WBC 7.4 HGB 13.4 HCT 41.3 PLATELET 257 11/15/17 1208 NA 143 K 4.0 CL 101 CO2 28 BUN 13 CREATININE 0.67* Plan for spinal with GETA backup; standard ASA monitoring. Adequate IV access. Mookie Record CA-1 Pager: [phone] Attending attestation: Morbidly obese 67yo female for total hip arthroplasty. HTN Asthma with rare inhaler use, none in past several weeks. Prednisone for seasonal bronchitis, none in many months. Reflux, Tums PRN Functional status is limited, no known cardiac disease or symptoms. Prior anesthetics well tolerated Patient prefers general anesthetic after discussion of R/B of GA and SAB. Consent obtained, full code status. Region - Other Informed Consent: Anesthetic plan and risks discussed with patient and spouse. Plan discussed with resident and attending. PAT Staff Note documented in this encounter Miscellaneous Notes * Addendum Note - Record, Mookie Mota - 02/24/2018 1:33 PM EST Addendum created 02/24/18 1333 by Mookie Man MD Intraprocedure Meds edited documented in this encounter Plan of Treatment Upcoming Encounters Date Type Department Care Team (Late st Contact Info) Description 03/04/2024 12:00 PM EST Office Visit [place] [address] Jordyn Francisco MD [facility] DR OBSTETRICS [place] [address] documented as of this encounter Visit Diagnoses Not on filedocumented in this encounter Administered Medications Inactive Administered Medications - up to 3 most recent administrations Medication Order MAR Action Action Date Dose Rate Site ceFAZolin (ANCEF) 1g in dextrose 5% 50mL PRN, Starting on Sun02/13/18 at 1143, Until Sun02/13/18 at 1446, Administer over 30 Minutes, Anesthesia Intra-op Given 02/13/2018 11:43 AM EST 2 g dexmedetomidine (PRECEDEX) injection PRN, Starting on Sun02/13/18 at 1207, Until Sun02/13/18 at 1446, Anesthesia Intra-op, Routine Given 02/13/2018 12:39 PM EST 4 mcg Given 02/13/2018 12:28 PM EST 4 mcg Given 02/13/2018 12:11 PM EST 4 mcg fentaNYL 50 mcg/mL multi-dose injection PRN, Starting on Sun02/13/18 at 1127, Until Sun02/13/18 at 1446, Anesthesia Intra-op, Routine Given 02/13/2018 12:00 PM EST 50 mcg Given 02/13/2018 11:27 AM EST 50 mcg glycopyrrolate (ROBINUL) multi-dose injection PRN, Starting on Sun02/13/18 at 1359, Until Sun02/13/18 at 1446, Anesthesia Intra-op, Routine Given 02/13/2018 1:59 PM EST 0.4 mg HYDROmorphone (DILAUDID) injection PRN, Starting on Sun02/13/18 at 1232, Until Sun02/13/18 at 1446, Anesthesia Intra-op, Routine Given 02/13/2018 1:06 PM EST 0.4 mg Given 02/13/2018 12:32 PM EST 0.4 mg lactated Ringers infusion 1,000 mL 1,000 mL, at 100 mL/hr, Intravenous, CONTINUOUS, Starting on Sun02/13/18 at 1000, Until Sun02/13/18 at 1632, Day of Surgery (Day of Procedure) New Bag 02/13/2018 2:03 PM EST New Bag 02/13/2018 11:17 AM EST New Bag 02/13/2018 10:00 AM EST 1,000 mLs 100 mL/hr lidocaine (PF) (XYLOCAINE) 100 mg/5 mL (2 %) injection PRN, Starting on Sun02/13/18 at 1128, Until Sun02/13/18 at 1446, Anesthesia Intra-op, Routine Given 02/13/2018 11:28 AM EST 40 mg midazolam (PF) (VERSED) multi-dose injection PRN, Starting on Sun02/13/18 at 1117, Until Sun02/24/18 at 1332, Anesthesia Intra-op, Routine Given 02/13/2018 11:21 AM EST 1 mg Given 02/13/2018 11:17 AM EST 1 mg neostigmine (BLOXIVERZ) injection PRN, Starting on Sun02/13/18 at 1359, Until Sun02/13/18 at 1446, Anesthesia Intra-op, Routine Given 02/13/2018 1:59 PM EST 5 mg ondansetron (ZOFRAN) injection PRN, Starting on Sun02/13/18 at 1346, Until Sun02/13/18 at 1446, Anesthesia Intra-op, Routine Given 02/13/2018 1:46 PM EST 8 mg propofol (DIPRIVAN) 10 mg/mL bolus injection (Anesthesia) PRN, Starting on Sun02/13/18 at 1128, Until Sun02/13/18 at 1446, Anesthesia Intra-op Given 02/13/2018 11:28 AM EST 120 mg propofol (DIPRIVAN) infusion CONTINUOUS PRN, Starting on Sun02/13/18 at 1218, Until Sun02/13/18 at 1446, Anesthesia Intra-op, Routine New Bag 02/13/2018 12:18 PM EST 30 mcg/kg/min 19.4 mL/hr rocuronium (ZEMURON) multi-dose injection PRN, Starting on Sun02/13/18 at 1129, Until Sun02/13/18 at 1446, Anesthesia Intra-op, Routine Given 02/13/2018 1:00 PM EST 10 mg Given 02/13/2018 12:26 PM EST 10 mg Given 02/13/2018 11:29 AM EST 50 mg tranexamic acid (CYKLOKAPRON) 100 mg/mL bolus injection (Anesthesia) PRN, Starting on Sun02/13/18 at 1136, Until Sun02/13/18 at 1446, Anesthesia Intra-op, Routine Given 02/13/2018 11:36 AM EST 1,600 mg documented in this encounter Care Teams Tire Fixer Relationship Specialty Start Date End Date Dandy Driscoll APRN [address] [place] [address] [place] [id number] PCP - General Family Medicine 01/20/16 documented as of this encounter
--- OUTSIDE RECORDS SUMMARY | 2024-02-27 19:36 | XMS_ITS | Encounter Summary ---
[place] [address] Care Team Providers Care Curing Supervisor Name Role Phone Dandy Driscoll APRN Primary Care Provider [phone] Encounter Details Date Type Department Care Team (Latest Contact Info) Description 01/09/2018 8:13 AM EDT - 01/09/2018 9:06 AM EDT Hospital En[place] [address] Patrick Dumont MD Discharge Disposition: Home Social History Tobacco Use [...] (ZIM'S MAX-FREEZE, LIDO-MENTHL, TOP) Apply topically. 2017 ndaf-fbhc-okn-jinny-artemio -violette-hor [phone] mg Tablet Take by mouth. 02/15/2018 LACTOSE-REDUCED [...] PM EST Office Visit [place] [address] Jordyn Francisco MD [facility] OBSTETRICS [place] [address] documented as of this encounter Visit Diagnoses Diagnosis Primary osteoarthritis of left hip Primary localized osteoarthrosis, pelvic region and thigh documented in this encounter Administered Medications Inactive Administered Medications - up to 3 most recent administrations Medication Order MAR Action Action Date Dose Rate Site lactated Ringers infusion 1,000 mL 1,000 mL, at 100 mL/hr, Intravenous, CONTINUOUS, Starting on Sun01/09/18 at 0845, Until Sun01/09/18 at 1107, Day of Surgery (Day of Procedure) lidocaine (XYLOCAINE) 10 mg/mL (1 %) injection 3 mg 3 mg (0.3 mL), Subcutaneous, ONCE PRN, 1 dose, Starting on Sun01/09/18 at 0824, Until Sun01/09/18 at 1107, for discomfort with PIV insertion, Day of Surgery (Day of Procedure), Routine sodium chloride 0.9 % flush 5-20 mL 5-20 mL, Intravenous, EVERY 1 MIN PRN, Starting on Sun01/09/18 at 0824, Until Sun01/09/18 at 1107, flush, Flush pertains to all indwelling lines. Flush per protocol found in the job aid using the link provided on this medication record., Day of Surgery (Day of Procedure), Routine documented in this encounter Active and Recently Administered Medications Times are shown in EDT. Scheduled Medication Order 01/07/2018 01/08/2018 01/09/2018 acetaminophen (TYLENOL) tablet 1,000 mg 1,000 mg, Oral, ONCE, 1 dose, On Sun01/09/18 at 0845, Administer on arrival in Same Day Program, Day of Surgery (Day of Procedure), Routine 844 (Due) ceFAZolin (ANCEF) 2g in dextrose 5% 100 mL 2 g, Intravenous, EVERY 3 HOURS, 1 dose, First dose on Sun01/09/18 at 0845, Administer over 30 Minutes, Redose after 3 hours., Intra-Operative (Intra-Procedure), Indication for (Active or Suspected): Prophylaxis 45 (Due) celecoxib (CeleBREX) capsule 400 mg 400 mg, Oral, ONCE, 1 dose, On Sun01/09/18 at 0845, Administer on arrival to Same Day Program, Day of Surgery (Day of Procedure), Routine 08 (Due) gabapentin (NEURONTIN) capsule 300 mg 300 mg, Oral, ONCE, 1 dose, On Sun01/09/18 at 0845, Administer on arrival in Same Day Program, Day of Surgery (Day of Procedure), Routine 0845 (Due) tranexamic acid (CYKLOKAPRON) 1,667 mg in sodium chloride 0.9% 116.67 mL 1,667 mg (rounded from 1,666.5 mg = 15 mg/kg/dose ? 111.1 kg), Intravenous, ONCE, 1 dose, On Sun01/09/18 at 0845, Administer over 30 Minutes, Day of Surgery (Day of Procedure) 0845 (Due) Continuous Medication Order 01/07/2018 01/08/2018 01/09/2018 lactated Ringers infusion 1,000 mL 1,000 mL, at 100 mL/hr, Intravenous, CONTINUOUS, Starting on Sun01/09/18 at 0845, Until Sun01/09/18 at 1107, Day of Surgery (Day of Procedure) 0845 (Due) PRN Medication Order 01/07/2018 01/08/2018 01/09/2018 lidocaine (XYLOCAINE) 10 mg/mL (1 %) injection 3 mg 3 mg (0.3 mL), Subcutaneous, ONCE PRN, 1 dose, Starting on Sun01/09/18 at 0824, Until Sun01/09/18 at 1107, for discomfort with PIV insertion, Day of Surgery (Day of Procedure), Routine sodium chloride 0.9 % flush 5-20 mL 5-20 mL, Intravenous, EVERY 1 MIN PRN, Starting on Sun01/09/18 at 0824, Until Sun01/09/18 at 1107, flush, Flush pertains to all indwelling lines. Flush per protocol found in the job aid using the link provided on this medication record., Day of Surgery (Day of Procedure), Routine documented in this encounter Care Teams Curing Supervisor Relationship Specialty Start Date End Date Dandy Driscoll APRN [address] [place] [address] [place] [phone] PCP - General Family Medicine 01/20/16 documented as of this encounter
--- OUTSIDE RECORDS SUMMARY | 2024-02-27 19:36 | XMS_ITS | Encounter Summary ---
Author Organization [facility] Address [facility] [place] [address] Care Team Providers Care Industrial Sociologist Name Role Phone Dandy Driscoll APRN Primary Care Provider [phone] Encounter Details Date Type Department Care Team (Latest Contact Info) Description 03/14/2018 2:29 PM EST - 03/14/2018 11:59 PM [facility] Hospital Encounter XRay at [address] [place] [address] Carlos Delcid MD [facility] [address] History of total knee arthroplasty, bilateral Discharge Disposition: Home Social History [...] lungs every 4 hours as needed. aspirin 81 mg Tablet, Delayed Release (E.C.) Take 1 tablet by mouth 2 times daily for 30 days. Take with food for 30 days after surgery. Last day = 03/15/2018. 60 tablet 02/16/2018 03/18/2018 omeprazole (PRILOSEC) 20 mg Capsule, Delayed Release(E.C.) [...] PM EST Office Visit [place] [address] Jordyn Francisco MD [facility] [place] [address] documented as of this encounter Procedures Procedure Name Priority Date/Time Associated Diagnosis Comments XR KNEE AP AND LAT BILAT Routine 03/14/2018 2:50 PM EST History of total knee arthroplasty, bilateral documented in this encounter Results * XR Knee 1-2 Views Bilat (Generic) (03/14/2018 2:50 PM EST) Anatomical Region Laterality Modality Knee Bilateral Digital Radiogra phy Impressions 03/14/2018 3:53 PM EST Bilateral knee prostheses are present without complication. Narrative 03/14/2018 3:53 PM EST EXAMINATION: XR KNEE 1-2 VIEWS BILAT (GENERIC) CLINICAL HISTORY: s/p bilat TKA TECHNIQUE: Right and left knees AP and lateral COMPARISON: January 20, 2016 FINDINGS: Bilateral knee prostheses are present. The tibial component of the left knee prosthesis has a long stem. There is a screw placed through the right-sided tibial tuberosity. The prostheses are well-positioned without periprosthetic lucency or fracture. There is no change from the prior study. Procedure Note Jagdeep Hernandez MD - 03/14/2018 EXAMINATION: XR KNEE 1-2 VIEWS BILAT (GENERIC) CLINICAL HISTORY: s/p bilat TKA TECHNIQUE: Right and left knees AP and lateral COMPARISON: January 20, 2016 FINDINGS: Bilateral knee prostheses are present. The tibial component of the leftknee prosthesis has a long stem. There is a screw placed through theright-sided tibial tuberosity. The prostheses are well-positioned without periprosthetic lucency orfracture. There is no change from the prior study. IMPRESSION Bilateral knee prostheses are present without complication. Carlos Delcid MD IMG DX ORDERABLES documented in this encounter Visit Diagnoses Diagnosis History of total knee arthroplasty, bilateral documented in this encounter Care Teams Industrial Sociologist Relationship Specialty Start Date End Date Dandy Driscoll APRN [address] [place] [address] [place] [phone] PCP - General Family Medicine 01/20/16 documented as of this encounter
--- OUTSIDE RECORDS SUMMARY | 2024-02-27 19:36 | XMS_ITS | Encounter Summary ---
Author Organization [facility] [place] [address] Care Team Providers Care Pool Coordinator Name Role Phone Dandy Driscoll APRN Primary Care Provider [phone] Reason for Visit * Reason Comments [facility] LEFT TKA REV DOS: 11/11/12, RIGHT TKA 06/27/01 Encounter Details Date Type Department Care Team (Late st Contact Info) Description 03/14/2018 3:20 PM EST Office Visit [place] [address] Roseann Ojeda APRN [facility] [place]OP[place]ED[place] [address] Status post total left knee replacement using [...] Sign Reading Time Taken Comments Blood Pressure 161/79 03/14/2018 3:18 PM EST Pulse 92 03/14/2018 3:18 PM EST Temperature - - Respiratory Rate - - Oxygen Saturation - - Inhaled Oxygen Concentration - - Weight 115.7 kg (255 lb) 03/14/2018 3:18 PM EST Height 157.5 cm (5' 2) 03/14/2018 3:18 PM EST Body Mass Index 46.64 03/14/2018 3:18 PM EST documented in this encounter Progress Notes * Roseann Ojeda, [employer] PROGRAM COORDINATOR - 03/14/2018 3:20 PM EST Arthroplasty/Orthopaedic History: 1. BTKA, Dr. Delcid, 2001 2. Revision Left Tibia, Dr. Delcid, 11/11/12 3. Left ENA, Dr. Dumont, 12/12/17 HPI: Stacy Knight is a very pleasant 67 y.o. year-old female and is now 16 yrs s/p BTKA and 5 years status post revision left tibial component. Patient reports she is doing very well postoperativelyand has no pain, swelling, redness or warmth about joints. She has no concerns. She recently underwent left total hip arthroplasty and is doing very well with her recovery from that procedure as well. Reports she has been otherwise well without infections or hospitalizations related to infection over the course of the last year. ROS: Denies: fever, chills, night sweats, nausea, or vomiting BP 161/79 Pulse 92 Ht 157.5 cm (5' 2) Wt 115.7 kg (255 lb) BMI 46.64 kg/m?? Physical Exam: Well-appearing female in no acute distress. Alert and Oriented x 3 and answers all questions appropriately. The incision is well healed, with no signs of infection. No joint effusions. I have made the following determinations: Post [...] and reviewed with the patient. X-rays show increased lucency at anterior femoral bone metal interface seen on lateral view of left knee. Otherwise, XR show well-placed prostheses with no evidence of fracture, subsidence, loosening, or p eriprosthetic complication, bilaterally. Questionnaire Responses: [facility] Surgical Postop Visit 03/07/2018 PROMIS-10 General [...] - Choose Same Treatment Again - [facility] [place] Response 03/07/2018 HOOS JR Scores 80.56 [facility] Response 03/07/2018 HOOS JR Scores 80.56 ASSESSMENT/PLAN: Ms. Knight is a 67 y.o. year old female status post bilateral total knee replacement and revision of the left tibial component. She is doing well postoperatively. Discussed that her XR does reveal some changes concerning for loosening of the left femoral component. However, as she is currently asymptomatic, would recommend continued watchful waiting. She know to call with any concerns. She will continue weightbearing as tolerated and working on range of motion. We will see her back in 3 years for repeat examination. X-rays will be [...] questions were answered. Signed: Roseann Ojeda APRN 03/14/2018 documented in this encounter Plan of Treatment Upcoming Encounters Date Type Department Care Team (Late st Contact Info) Description 03/04/2024 12:00 PM EST Office Visit [place] [address] Jordyn Francisco MD [facility] OBSTETRICS [place] [address] documented as of this encounter Visit Diagnoses Diagnosis Status post total left knee replacement using cement documented in this encounter Care Teams Pool Coordinator Relationship Specialty Start Date End Date Dandy Driscoll APRN [address] [place] [address] [place] [address] PCP - General Family Medicine 01/20/16 documented as of this encounter
--- OUTSIDE RECORDS SUMMARY | 2024-02-27 19:36 | XMS_ITS | Encounter Summary ---
[place] [address] Care Team Providers Care Human Resources Director Name Role Phone Dandy Driscoll APRN Primary Care Provider [phone] Encounter Details Date Type Department Care Team (Late st Contact Info) Description 01/09/2018 7:32 AM EDT - 01/09/2018 10:00 AM EDT Surgery [place] [phone] Patrick Dumont MD Not Performed TOTAL HIP [...] (ZIM'S MAX-FREEZE, LIDO-MENTHL, TOP) Apply topically. 2017 yeum-onvp-duu-jinny-artemio -violette-hor [phone] mg Tablet Take by mouth. 02/15/2018 LACTOSE-REDUCED [...] PM EST Office Visit [place] [address] Jordyn Francisco MD [facility] OBSTETRICS [place] [address] documented as of this encounter Visit Diagnoses [...] (Intra-Procedure), Indication for (Active or Suspected): Prophylaxis 844 (Due) celecoxib (CeleBREX) capsule 400 mg 400 mg, Oral, ONCE, 1 dose, On Sun01/09/18 at 0845, Administer on arrival to Same Day Program, Day of Surgery (Day of Procedure), Routine 844 (Due) gabapentin (NEURONTIN) capsule 300 mg 300 [...] Routine documented in this encounter Care Teams Human Resources Director Relationship Specialty Start Date End Date Dandy Driscoll APRN [address] [place] [address] [place] [phone] PCP - General Family Medicine 01/20/16 documented as of this encounter
--- OUTSIDE RECORDS SUMMARY | 2024-02-27 19:36 | XMS_ITS | Encounter Summary ---
[place] [address] Care Team Providers Care Color Shop Helper Name Role Phone Dandy Driscoll APRN Primary Care Provider [phone] Encounter Details Date Type Department Care Team (Late st Contact Info) Description 01/25/2018 [place] [phone] Ileana Srivastava RMA Social History Tobacco Use Types Packs/Day Years [...] Telephone Encounter - Ileana Srivastava RMA - 01/25/2018 2:39 PM EDT At the direction of Dr Dumont. I called Stacy and let her know that we are going to cancel her surgery due to her new concerns for the new scratches that are deep and the itching that turns to welts. Dr Dumont recommends that she contact her PCP for help with these wounds and the itching. Stacy agreed to this plan and was ok with cancelling her surgery on 01/30/18. I placed a call to her PCP office and let them know what was going on with Stacy and Dr Dumont's concerns. Stacy was told that we will not be able to schd her surgery until her skin is completely Free of scratches and she has controlled her itching. Stacy agreed to this plan. Message is being sent to OR schdulers to cancel surgery. * Telephone Encounter - Wendy Preston RN - 01/25/2018 1:21 PM EDT Patient called and I relayed message from Dr. Dumont that he would like her to be evaluated by PCP for hip scratches. She states she will call PCP for an appointment. * Telephone Encounter - Ileana Srivastava RMA - 01/25/2018 9:10 AM EDT Images from the original note were not included. Issue related to upcoming surgery w/Dr. Dumont Received: Today Call patient Message Contents [facility] Nurse ?? Pt is supposed to have surgery on 01/30 but she has scratches again. ??What should she do? ??She isvery worried and would appreciate a call back SETH, she will give you more details when she speaks to you. Thank you. I called Stacy and she reports that when she takes her pants off (they are tight) they are creatingseveral deep scratches. He tells her that they are bad, she can not see them . She is putting triple antibiotic cream on them and has had Tegaderm on as well and was told they are not healing. Stacy also states that her skin is very itchy and She is trying not to scratch but then she does scratch it turns into welts. She does not know if she is just nervious and this is causing her to beitchy. Stacy is not able to send pictures. She is going to call her PCP . documented in this encounter Plan of Treatment Upcoming Encounters Date Type Department Care Team (Late st Contact Info) Description 03/04/2024 12:00 PM EST Office Visit [place] [address] Jordyn Francisco MD [facility] [place] [address] documented as of this encounter Visit Diagnoses Not on filedocumented in this encounter Care Teams Color Shop Helper Relationship Specialty Start Date End Date Dandy Driscoll APRN [address] [place] [address] [place] [phone] PCP - General Family Medicine 01/20/16 documented as of this encounter"
--- OUTSIDE RECORDS SUMMARY | 2024-02-27 19:36 | XMS_ITS | Encounter Summary ---
[place] [address] Care Team Providers Care English Drawer Name Role Phone Dandy Driscoll APRN Primary Care Provider [phone] Reason for Visit * Auth/Cert Specialty Diagnoses / Procedures Referred By Contac t Referred To Contact Diagnoses Primary osteoarthritis of left hip left hip oa n/a Procedures PRO TOTAL HIP ARTHROPLASTY @TOTAL HIP ARTHROPLASTY, ANTERIOR APPROACH (WRVU 20.72) Referral ID Status Reason Start Date Expiration Date Visits Re quested Visits Authorized [id number] 1 1 Encounter Details Date Type Department Care Team (Latest Contact Info) Description 12/12/2017 8:49 AM EDT - 12/12/2017 9:58 AM EDT Hospital Encounter [place] [address] Patrick Dumont MD Primary osteoarthritis of left hip Discharge Disposition: Home Social History Tobacco [...] (ZIM'S MAX-FREEZE, LIDO-MENTHL, TOP) Apply topically. 2017 bkdp-whyv-koi-yuc-artemio -violette-hor [phone] mg Tablet Take by mouth. 02/15/2018 LACTOSE-REDUCED [...] PM EST Office Visit [place] [address] Jordyn Francisco MD [facility] DR OBSTET[place] [address] documented as of this encounter Procedures Procedure [...] Procedure) 30 (Due) Continuous Medication Order 12/10/2017 12/11/2017 12/12/2017 lactated Ringers infusion 1,000 mL 1,000 mL, [...] Routine documented in this encounter Care Teams English Drawer Relationship Specialty Start Date End Date Dandy Driscoll APRN [address] [place] [address] [place] [address] PCP - General Family Medicine 01/20/16 documented as of this encounter
--- OUTSIDE RECORDS SUMMARY | 2024-02-27 19:36 | XMS_ITS | Encounter Summary ---
[place] [address] Care Team Providers Care Territory Sales Consultant Name Role Phone YamilaDandy LETI Primary Care Provider [phone] Encounter Details Date Type Department Care Team (Latest Contact Info) Description 11/15/2017 3:10 PM EDT Office [place] [phone] Patrick Dumont MD Primary osteoarthritis of left hip Social History Tobacco Use [...] - - Weight 111.1 kg (245 lb) 11/15/2017 2:07 PM EDT Height 157.5 cm (5' 2) 11/15/2017 2:07 PM EDT Body Mass Index 44.81 11/15/2017 2:07 PM EDT documented in this encounter Progress Notes * Patrick Dumont MD - 11/15/2017 3:10 PM EDT Arthroplasty History/Previous Hip Surgery: 1. n/a This note is recorded by Shazia Richards RN acting as a scribe for Dr. Rigo Dumont. PREOPERATIVE VISIT Interval History: Stacy Knight is a pleasant 67 y.o. year old female with severe osteoarthritis of the hip being seen today to discuss a LEFT total hip arthroplasty. Her history and physical exam were reviewed in detail. Her history in regards to her hip was once again discussed and is outlined in a previous note. She states the hip pain and disability is unchanged since their previous visit. They have reviewed theiroptions and at this point are expressing a desire to proceed with surgery. She does not endorse a history of DVT/PE or clotting Physical Exam: Exam is previously documented in my note and is essentially unchanged. Clinical Leg Length Discrepancy - 0cm Inspection of her skin in the intertriginous groin fold on the operative side demonstrates Some skin breakdown. Significant Medical Comorbidities Patient Active Problem List Diagnosis Code ??? Impaired renal function N28.9 ??? Tibial component revision L knee (11/11/2012, [facility]) Z96.659 ??? History of total right knee replacement, R TKA performed in 2001 Z96.651 ??? Pain in left hip M25.552 ??? Primary osteoarthritis of left hip M16.12 VITALS: BP Readings from Last 1 Encounters: 08/09/17 144/70 Pulse Readings from Last 1 Encounters: 08/09/17 78 There is no height or weight on file to calculate BMI. Relevant Lab Studies Lab Results Component Value Date WBC 9.9 11/13/2012 HGB 10.2 (L) 11/13/2012 HCT 31.5 (L) 11/13/2012 PLATELET 224 11/13/2012 CREATININE 0.57 (L) 11/13/2012 BUN 19 (H) 11/13/2012 NA 138 11/13/2012 K 3.9 11/13/2012 INR 1.0 10/29/2012 No results for input(s): HA1C in the last 7068 hours. No results for input(s): ALBUMIN in the last 168 hours. CrCl cannot be calculated (Patient's most recent sCr result is older than the maximum 30 days allowed.). Blood Type: A Neg Questionnaire Response [facility] Surgical Preop Visit 08/09/2017 PROMIS-10 General Health Good PROMIS-10 Quality of Life Good PROMIS-10 Physical Health Fair PROMIS-10 Mental Health Very Good PROMIS-10 Social Activity Good PROMIS-10 Everyday Activities Mostly PROMIS-10 Pain 1 PROMIS-10 Fatigue Moderate PROMIS-10 Social Roles Good PROMIS-10 Anxious or Depressed Rarely PROMIS PHYSICAL SCORE (range 16-68) 42.3 PROMIS MENTAL SCORE (range 21-68) 48.3 Treatments Tried Regular exercise, Weight loss, Walking aids (e.g.cane, walker), Physical therapy, Acetaminophen (e.g. Tylenol) Prior Surgery knren hiplift HOOS JR Scores 61.82 Consent to review records - ENA Grade 4 Health Literacy - [facility] Response 08/09/2017 HOOS JR Scores 61.82 Spine [facility] Response 08/09/2017 HOOS JR Scores 61.82 Radiographic evidence of joint damage: [0= normal; 1=minimal ; 2= some osteophytes , some narrowing ; 3= moderate osteophytes, significantnarrowing, mild deformity; 4= large osteophytes, marked narrowing, obvious deformity]: 4= large ostophytes, marked narrowing, obvious deformity Assessment and Plan: This is a pleasant 67 y.o. year-old female who presents for a preoperative appointment today for LEFT hip OA. I had a long discussion with her regarding the risks and benefits of total hip arthroplasty. I indicated that in my opinion, this is the treatment option most likely to restore a more normal, pain-free level of function and that we have exhausted reasonable non-operative alternatives. I used total hip implants to demonstrate how I perform the procedure and all of their questions were answered. Ms. Knight expressed a desire to pursue this option. We then discussed in great detail the risks associated with the proposed surgery. These included but were not limited to: bleeding (which may or may not require transfusion), infection, deep venous thrombosis, pulmonary embolus, prosthetic failure, loosening, prosthetic fracture, femur or pelvic fracture, dislocation, leg-length inequality, persistent pain, need for revision, medical complications (including cardiac, respiratory and neurologic complications), anaesthetic complications, and . The patient seemed to understand the nature of this procedure's risks. We also discussed the likely benefit of improved stride length, improved range of motion, decreased pain, decreased need for pain medications and decrease functional limitations. The patient is aware that it would take on average 2 days in the hospital, followed by approximately 12-18 months to full rehabilitation. The patient was seen and evaluated by Dr. Jacky De Leon, our Orthopaedic emergency spill response technician, to help with perioperative optimization and he felt that it was appropriate to proceed with surgery. I did review the history and physical today which says the patient is cleared for surgery and has no specific recommendations for further testing. I reviewed the labs and did not identify anything that would warrant surgical delay. We discussed DNR status and she is a Full Code We reviewed options for postoperative DVT prophylaxis, [...] she would NOT refuse a blood transfusion. Opioid PDMP 11/15/2017 [place] PDMP Query Date 11/08/2017 [place] PDMP Query Date 11/08/2017 Stacy Knight will be prescribed a prescription opioid for the treatment of acute post-operative pain related to Orthopedic surgery. Stacy Knight will be advised to take the smallest dose possible to control their pain and as their pain improves to take smaller doses and increase the time between doses. In addition to this medication, non-opioid medications will be prescribed for adjunct treatment of their pain. Non-pharmacological treatment such as ice, elevation and activity modification will be recommended as appropriate. The Acute Opioid Therapy Informed Consent form has been completed and sent to medical records for scanning to chart. We discussed with them the possible discharge scenarios including going home versus needing to go to a rehab facility depending on how well their mobility progresses post-operatively. TJA Any remaining questions were solicited from the patient and answered. Ms. Knight wishes to proceed accordingly and informed consent was subsequently obtained for a LEFT total hip arthroplasty. I reviewed and included below all recommendations offered by Doctor De Leon: We discussed using Celebrex while in house. We discussed using Naprosyn for 6 weeks after surgery for post-operative pain management. I ensured that the patient has the needed samples of hibiclens wash to use both the night before and the morning of the anticipated surgery. I have personally evaluated the patient and agree with the above note as recorded by Shazia Richards RN. Rigo Dumont MD 11/15/2017 documented in this encounter Plan of Treatment Upcoming Encounters Date Type Department Care Team (Late st Contact Info) Description 03/04/2024 12:00 PM EST Office Visit [place] [address] Jordyn Francisco MD [facility] [place] [address] documented as of this encounter Visit Diagnoses Diagnosis Primary osteoarthritis of left hip Primary localized osteoarthrosis, pelvic region and thigh documented in this encounter Care Teams Territory Sales Consultant Relationship Specialty Start Date End Date Dandy Driscoll APRN [address] [place] [address] SHELLI Reich [phone] PCP - General Family Medicine 01/20/16 documented as of this encounter
--- OUTSIDE RECORDS SUMMARY | 2024-02-27 19:36 | XMS_ITS | Encounter Summary ---
Author Organization [facility] Address [facility] [place] [address] Care Team Providers Care Title One Reading Teacher Name Role Phone Dandy Driscoll APRN Primary Care Provider [phone] Encounter Details Date Type Department Care Team (Latest Contact Info) Description 03/07/2018 11:30 AM EST - 03/07/2018 11:59 PM [facility] Hospital Encounter XRay at [address] [place] [address] Patrick Dumont MD Status post total replacement of left hip Discharge Disposition: Home Social [...] PM EST Office Visit [place] [address] Jordyn Francisco MD [facility] DR OBSTETRICS [place] [address] documented as of this encounter Procedures Procedure Name Priority Date/Time Associated Diagnosis Comments XR PELVIS AND HIP 2 VIEWS LEFT Routine 03/07/2018 11:52 AM EST Status post total replacement of left hip documented in this encounter Results * XR Pelvis w AP & Lat Hip Left (03/07/2018 11:52 AM EST) Anatomical Region Laterality Modality Pelvis, Hip Left Digital Radiogra phy Impressions 03/07/2018 4:36 PM EST Status post left total hip arthroplasty without evidence of complication. I have personally reviewed the image(s) and the residents interpretation and agree with the findings, Leyla Liu at 03/07/2018 4:36 PM Narrative 03/07/2018 4:36 PM EST EXAMINATION: XR PELVIS W AP AND LAT HIP LEFT CLINICAL HISTORY: 69-year-old woman status post left total hip arthroplasty on 02/13/2018 TECHNIQUE: Frontal radiograph of the pelvis Frontal radiograph of the left hip in neutral and frog-leg positions COMPARISON: Radiographs of the pelvis on 02/13/2018, 08/09/2017, 03/26/2017, 06/30/2016 FINDINGS: Status post left total hip arthroplasty with a screw-fixated acetabular component and a cerclage wire encircling the proximal femoral component. No change in the position of the hardware or alignment of the hip joint. No periprosthetic lucency or fracture. Unchanged severe joint space narrowing of the right hip with subchondral sclerosis and osteophytosis. Procedure Note Leyla Liu MD - 03/07/2018 EXAMINATION: XR PELVIS W AP AND LAT HIP LEFT CLINICAL HISTORY: 69-year-old woman status post left total hiparthroplasty on 02/13/2018 TECHNIQUE: Frontal radiograph of the pelvis Frontal radiograph of the left hip in neutral and frog-leg positions COMPARISON: Radiographs of the pelvis on 02/13/2018, 08/09/2017, 03/26/2017, 06/30/2016 FINDINGS: Status post left total hip arthroplasty with a screw-fixated acetabular component and a cerclage wire encircling the proximal femoral component.No change in the position of the hardware or alignment of the hip joint. No periprosthetic lucency or fracture. Unchanged severe joint space narrowing of the right hip with subchondral sclerosis and osteophytosis. IMPRESSION Status post left total hip arthroplasty without evidence ofcomplication. I have personally reviewed the image(s) and the residents interpretationand agree with the findings, Leyla Liu at 03/07/2018 4:36 PM Patrick Dumont MD IMG DX ORDERABLES documented in this encounter Visit Diagnoses Diagnosis Status post total replacement of left hip documented in this encounter Care Teams Title One Reading Teacher Relationship Specialty Start Date End Date Dandy Driscoll APRN [address] [place] [address] [place] [address] PCP - General Family Medicine 01/20/16 documented as of this encounter
--- OUTSIDE RECORDS SUMMARY | 2024-02-27 19:36 | XMS_ITS | Encounter Summary ---
Author Organization [facility] [place] [address] Care Team Providers Care Benefits Processor Name Role Phone DriscollDandy LETI Primary Care Provider [phone] Encounter Details Date Type Department Care Team (Late st Contact Info) Description 01/31/2018 [place] [address] Patrick Dumont MD Social History Tobacco Use [...] * Telephone Encounter - Nannette Sarabia - 01/31/2018 8:28 AM EDT I called and left a message for patient to call [phone] directly and schedule surgery with Dr. DUMONT. documented in this encounter Plan of Treatment Upcoming Encounters Date Type Department Care Team (Late st Contact Info) Description 03/04/2024 12:00 PM EST Office Visit [place] [address] Jordyn Francisco MD [facility] DR OBSTET[place]ICS [place] [address] documented as of this encounter Visit Diagnoses Not on filedocumented in this encounter Care Teams Benefits Processor Relationship Specialty Start Date End Date Dandy Driscoll APRN [address] [place] [address] [place] [phone] PCP - General Family Medicine 01/20/16 documented as of this encounter
--- OUTSIDE RECORDS SUMMARY | 2024-02-27 19:36 | XMS_ITS | Encounter Summary ---
Author Organization [facility] [place] [address] Care Team Providers Care Mapping Supervisor Name Role Phone Dandy Driscoll APRN Primary Care Provider [phone] Reason for Visit * Reason Comments Pre-op Exam L ENA ANT 12/12/17 Encounter Details Date Type Department Care Team (Latest Contact Info) Description 11/15/2017 1:20 PM EDT Office [place] [address] Jacky De Leon MD [facility] [place] [address] Preop examination; Primary osteoarthritis of left hip; Morbid obesity with BMI of 45.0-49.9, adult Social History Tobacco Use Types Packs/Day Years [...] Sign Reading Time Taken Comments Blood Pressure 142/69 11/15/2017 12:55 PM EDT Pulse 71 11/15/2017 12:55 PM EDT Temperature - - Respiratory Rate - - Oxygen Saturation 97% 11/15/2017 12:55 PM EDT Inhaled Oxygen Concentration - - Weight 111.1 kg (245 lb) 11/15/2017 12:55 PM EDT measured Height 150.5 cm (4' 11.25) 11/15/2017 12:55 PM EDT measured Body Mass Index 49.06 11/15/2017 12:55 PM EDT documented in this encounter H&P Notes * Jacky De Leon MD - 11/15/2017 1:20 PM EDT Images from the original note were not included. CC: Stacy Knight is a 67 y.o. female new patient to the perioperative clinic with the following problems and medications that is being seen in the clinic for consultation at the request of her surgeon Dr. Patrick Dumont for preoperative risk stratification and management recommendations in anticipation of left total hip arthroplasty for symptomatic OA. HPI - Pain - Location - left hip and groin, Quality - aching, Onset - gradual, Duration - several months, Intensity - moderate to severe, Aggravating factors - standing, walking, stepping, bending, Alleviating factors - NSAID, APAP, opiate, topical, rest, Associated - has had prior knee replacements. Patient Active Problem List Diagnosis Code ??? Impaired renal function N28.9 ??? Tibial component revision L knee (11/11/2012, [facility]) Z96.659 ??? History of total right knee replacement, R TKA performed in 2001 Z96.651 ??? Pain in left hip M25.552 ??? Primary osteoarthritis of left hip M16.12 Current Outpatient Prescriptions Medication Sig Dispense Refill ??? psyllium seed, with sugar, (METAMUCIL, SUGAR, ORAL) Take by mouth. ??? buPROPion (WELLBUTRIN XL) 150 mg Tablet Extended Release 24 hr daily. 12 ??? loperamide (IMODIUM A-D) 2 mg Tablet Take by mouth 4 times daily as needed for Diarrhea. Maximum 16 mg in 24 hours ??? LIDOCAINE/MENTHOL (ZIM'S MAX-FREEZE, LIDO-MENTHL, TOP) Apply topically. ??? bavr-myws-yfz-ioe-jyn-crzg-hor [id number] mg Tablet Take by mouth. ??? LACTOSE-REDUCED FOOD (NUTRITIONAL SUPPLEMENT ORAL) Take by mouth. Indications: Mind over matterBrain Formula ??? DIETARY SUPPLEMENT ORAL Take by mouth. Indications: Carb Blcoker; White Kidney Marquez ??? DIETARY SUPPLEMENT ORAL Take by mouth. Indications: Phytoplankton blend ??? Dietary Supplement Capsule Take by mouth. Indications: Bladder Support ??? predniSONE (DELTASONE) 20 mg Tablet ??? traMADol (ULTRAM) 50 mg Tablet TAKE ONE TABLET BY MOUTH AT BEDTIME NEEDED 2 ??? cephALEXin (KEFLEX) 500 mg capsule Take by mouth as needed. TAKES 1 HOUR PRIOR TO DENTAL WORK. ??? naproxen (NAPROSYN) 250 mg tablet Take 250 mg by mouth 2 times daily (with meals). ??? Cranberry 1,000 mg Cap Take by mouth 2 times daily. ??? Levalbuterol Tartrate (XOPENEX HFA) 45 mcg/actuation inhaler Inhale 2 puffs into the lungs every 4 hours as needed. ??? verapamil (CALAN-SR) 240 mg CR tablet Take 240 mg by mouth nightly. ??? fluticasone-salmeterol (ADVAIR) 500-50 mcg/dose diskus inhaler Inhale 1 puff into the lungs 2 times daily. ??? cyclobenzaprine (FLEXERIL) 10 mg tablet Take 5 mg by mouth 3 times daily as needed. Current Facility-Administered Medications Medication Dose Route Frequency Provider Last Rate Last Dose ??? [START ON 12/07/2017] mupirocin (BACTROBAN) 2 % ointment Topical (Top) BID Patrick Dumont MD Social History Occupational History ??? Not on file. Social History Main Topics ??? Smoking status: Former Smoker Packs/day: 0.00 Years: 0.50 Types: Cigarettes Quit date: 1979 ??? Smokeless tobacco: Never Used ??? Alcohol use No ??? Drug use: No ??? Sexual activity: Not on file Family History Problem Relation Age of Onset ??? Diabetes Father ??? Diabetes Brother ??? Thrombophilia Neg Hx Review of Systems: Review of Systems Constitutional: Negative for chills, diaphoresis and fever. HENT: Negative for mouth sores, nosebleeds, sore throat and trouble swallowing. Eyes: Negative for photophobia and visual disturbance. Respiratory: Negative for apnea, cough, shortness of breath and wheezing. Cardiovascular: Negative for chest pain and palpitations. Gastrointestinal: Negative for abdominal pain, anal bleeding and blood in stool. Endocrine: Negative for polydipsia and polyphagia. Genitourinary: Negative for dysuria, flank pain and hematuria. Has vaginal itching and this has not resolved iwht prior treatment, a biopsy has been done and topical steroid being considered based on that result. Musculoskeletal: Positive for back pain and gait problem. Skin: Negative for pallor and rash. Allergic/Immunologic: Negative for environmental allergies and immunocompromised state. Neurological: Negative for tremors, syncope, speech difficulty and light-headedness. Hematological: Negative for adenopathy. Does not bruise/bleed easily. Psychiatric/Behavioral: Negative for confusion, decreased concentration and dysphoric mood. Allergies: Allergies Allergen Reactions ??? Isopropyl Alcohol Rash ??? Meperidine Hcl Other (See Comments) Very Loopy ??? Penicillins Other (See Comments) SWELLS UP ??? Propoxyphene Hcl Itching Physical Exam: Last Set of Vitals and Range over past 24 hours: Last value Range last 24 hrs Temperature Temp: -- Heart Rate Heart Rate: 71 Heart Rate: [71-79] Blood Pressure BP: 142/69 BP: (142)/(69) Respiratory Rate Resp: -- SpO2 SpO2: 97 % SpO2: [96 %-97 %] Body mass index is 49.06 kg/(m^2). Height: 150.5 cm (4' 11.25) (measured) Estimated body mass index is 49.06 kg/(m^2) as calculated from the following: Height as of this encounter: 150.5 cm (4' 11.25). Weight as of this encounter: 111.1 kg (245 lb). Physical Exam Constitutional: She is oriented to person, place, and time. No distress. HENT: Head: Normocephalic and atraumatic. Mouth/Throat: Oropharynx is clear and moist. Eyes: Conjunctivae are normal. Right eye exhibits no discharge. Left eye exhibits no discharge. No scleral icterus. Neck: Neck supple. No JVD present. Cardiovascular: Normal rate, regular rhythm and normal heart sounds. Exam reveals no gallop and no friction rub. No murmur heard. Pulmonary/Chest: Effort normal and breath sounds normal. No stridor. No respiratory distress. She has no wheezes. She has no rales. She exhibits no tenderness. Abdominal: Soft. Bowel sounds are normal. There is no tenderness. There is no rebound and no guarding. Tympanic to percussion in RUQ and LUQ with no palpable HSM but exam is limited by body habitus and large pannus/ Musculoskeletal: She has left hip flexor weaker than right at 5-/5, she has moderate restriction in flexion and severe in IR and ER. There is shortened stride using cane favoring this hip. Neurological: She is alert and oriented to person, place, and time. She displays normal reflexes. She exhibits normal muscle tone. Coordination normal. Skin: Skin is warm and dry. She is not diaphoretic. No pallor. Psychiatric: She has a normal mood and affect. Her behavior is normal. Judgment and thought contentnormal. Lab Results Component Value Date WBC 7.4 11/15/2017 RBC 4.27 11/15/2017 HGB 13.4 11/15/2017 HCT 41.3 11/15/2017 MCV 96.7 (H) 11/15/2017 MCH 31.4 11/15/2017 MCHC 32.4 11/15/2017 PLATELET 257 11/15/2017 RDWCV 13.8 11/15/2017 Lab Results Component Value Date NA 143 11/15/2017 K 4.0 11/15/2017 CL 101 11/15/2017 CO2 28 11/15/2017 BUN 13 11/15/2017 CREATININE 0.67 (L) 11/15/2017 GLUCOSE 86 11/15/2017 CALCIUM 9.4 11/15/2017 EKG (image reviewed): normal EKG, normal sinus rhythm. Xray hip - severe DJD left hip A/P 1. Preop examination 2. Primary osteoarthritis of left hip 3. Morbid obesity with BMI of 45.0-49.9, adult She finds the hip pain impairing her activity tolerance and elect to proceed with the ENA. The BMI or Body Mass Index is a ratio of your weight and height and is calculated by dividing your weight inKilo Grams by height in meters. For every 5 kg/m2 of BMI above 25, risk of after surgery increases by a third and infection by ten times. Joint replacement surgery with BMI more than 50 has resulted in more than half of patients having complications. Major Risk Factor per the Revised Cardiac [...] to 4METs (manages self and does home chores like mopping and vaccuming) and based on the ACC/AHA 2014 guideline no further cardiovascular testing is indicated. ARISCAT/CANET Score - estimates the risk of postoperative pulmonary complications as being low ~3.5%. Per the ACS NSQIP calculator I estimated the following. She has not needed her Advair since 2 simmons ago and she has not needed regular rescue inhaler either and so her COPD/RAD is not incorporated below. RECCO: Continue bupropion, prn Xopenex, hold verapamil if SBP<120 or HR<60 documented in this encounter Plan of Treatment Upcoming Encounters Date Type Department Care Team (Late st Contact Info) Description 03/04/2024 12:00 PM EST Office Visit [place] [address] Jordyn Francisco MD [facility] DR OBSTETRICS [place] [address] documented as of this encounter Visit Diagnoses Diagnosis Preop examination Preoperative examination, unspecified Primary osteoarthritis of left hip Primary localized osteoarthrosis, pelvic region and thigh Morbid obesity with BMI of 45.0-49.9, adult Morbid obesity documented in this encounter Care Teams Mapping Supervisor Relationship Specialty Start Date End Date Dandy Driscoll APRN [address] [place] [address] [place] [address] PCP - General Family Medicine 01/20/16 documented as of this encounter
--- OUTSIDE RECORDS SUMMARY | 2024-02-27 19:36 | XMS_ITS | Encounter Summary ---
[place] [address] Care Team Providers Care Vacuum Bottle Assembler Name Role Phone Dandy Driscoll LETI Primary Care Provider [phone] Encounter Details Date Type Department Care Team (Late st Contact Info) Description 12/12/2017 6:00 PM EDT Anesthesia Event [place] [address] Rajan Ramírez MD [facility] [place] [address] Heriberto Vizcaino MD [facility] [place] [address] Anesthesia Record Procedure Summary Procedure Name Responsible Anesthesiologist Anesthesia Start Time Anesthesia Stop Time TOTAL HIP ARTHROPLASTY, ANTERIOR APPROACH (WRVU 19.6) (Left: Hip) Events Date Time Event Comment 12/12/2017 1556 Procedure Not Performed Meds * Agents No agents on file. [...] m idline; coccyx; Covered with mepilex. Notified fish dressing machine feeder-onc team 02/07/24 1440 by Tobias Bolivar RN [...] OR Notes * Anesthesia Preprocedure Evaluation - Rajan Ramírez MD - 12/11/2017 6:03 PM EDT Pre-Anesthesia Evaluation for: Stacy Knight [...] Delcid MD at [facility] Social History Substance Use [...] Anesthesia Physical Exam Anesthesia Plan: ASA 3 with a(n) intravenous induction This is a 67 y.o. female here for total left hip arthroplasty in the setting of OA. PMHx significant for HTN prescribed verapamil, COPD prescribed levalbuterol advair both reported as not needing to be utilized in the last two years, GERD not prescribed rx, Depression taking wellbutrin, IBS, Chronic pain including back and hip prescribed tramadol flexeril naproxen, morbid obesity BMI>45. Patient's documented history was negative for seizures, cardiac disease, hepatic/renal disease or coagulopathy. Preoperative EKG NSR. Medications allergies reviewed and listed below. Allergies: -- Isopropyl Alcohol -- Rash -- Meperidine Hcl -- Other (See Comments) -- Very Loopy -- Penicillins -- Other (See Comments) -- SWELLS UP -- Propoxyphene Hcl -- Itching Anesthetic History: Previously tolerated GA without adverse event. Prior intubation record with CMAC grade 1 view for TKR. Anesthetic Plan: GA w/ ETT, consideration for spinal anesthetic Standard ASA monitoring PIV Heriberto Vizcaino MD 12/11/2017 Addendum: Case was cancelled due to cut/infection near surgical site. Region - Other Informed Consent: PAT Staff Note documented in this encounter Miscellaneous Notes * Addendum Note - Rajan Ramírez MD - 12/12/2017 6:59 PM EDT Addendum created 12/12/17 786 by Rajan Ramírez MD Sign clinical note documented in this encounter Plan of Treatment Upcoming Encounters Date Type Department Care Team (Late st Contact Info) Description 03/04/2024 12:00 PM EST Office Visit [place] [address] Jordyn Francisco MD [facility] OB[place] [address] documented as of this encounter Visit Diagnoses Not on filedocumented in this encounter Care Teams Vacuum Bottle Assembler Relationship Specialty Start Date End Date Dandy Driscoll APRN [address] [place] [address] [place] [phone] PCP - General Family Medicine 01/20/16 documented as of this encounter
--- OUTSIDE RECORDS SUMMARY | 2024-02-27 19:36 | XMS_ITS | Encounter Summary ---
Author Organization [facility] [place] [address] Care Team Providers Care Welt Cutter Name Role Phone Dandy Driscoll APRN Primary Care Provider [phone] Encounter Details Date Type Department Care Team (Late st Contact Info) Description 02/16/2018 [place] [address] Gilberto Ahuja MD [facility] [place] [address] Social History Tobacco Use Types Packs/Day Years [...] Miscellaneous Notes * Telephone Encounter - Gilberto Ahuja MD - 02/16/2018 3:39 PM EST I received a telephone call from Stacy Knight, a 67 year-old woman who was discharged from the hospital yesterday after undergoing a left total hip arthroplasty by Dr. Dumont. Mrs. Knihgt was quite frustrated with her current situation. She reports staying at her [place]wibc[place]be[place] house last night near [place], [place] and has been having an extremely difficult time mobilizing. She states she thought her could help her and take care of her - but he can't. She has beenunable to continue her journey home and therefore has been unable to obtain her medications that were sent to her home pharmacy. She denies any increase in pain or acute injury. Mrs. Knight feels likeshe needs to be admitted to an acute rehab facility. I suggested that first we find a way for Mrs. Knight to obtain her medications. She informed me thatlilia was a [facility] nearby in [place], [place]. I placed orders to have all of her discharge medications filled there and she agreed to have someone pick them up for her. I emphasized the importance oftaking her medications, particularly her Aspirin for DVT prophylaxis. Mrs. Knight agrees to assess how she is feeling and how well she is able to mobilize once she is taking her pain medications again. She plans to stay the night again at her pbrprs-lx-iwa's. If tomorrow she still feels that she requires rehab, then she will call back to discuss readmission vs rehab placement. Mrs. Knight expressed understanding and was agreeable with the plan. She will call back with any acute changes. Gilberto Ahuja MD Orthopaedic Surgery PGY3 documented in this encounter Plan of Treatment Upcoming Encounters Date Type Department Care Team (Late st Contact Info) Description 03/04/2024 12:00 PM EST Office Visit [place] [address] Jordyn Francisco MD [facility] [place] [address] documented as of this encounter Visit Diagnoses Not on filedocumented in this encounter Care Teams Welt Cutter Relationship Specialty Start Date End Date Dandy Driscoll APRN [address] [place] [address] SHELLI Reich [phone] PCP - General Family Medicine 01/20/16 documented as of this encounter
--- OUTSIDE RECORDS SUMMARY | 2024-02-27 19:36 | XMS_ITS | Encounter Summary ---
[place] [address] Care Team Providers Care Watch Manufacturing Supervisor Name Role Phone Dandy Driscoll APRN Primary Care Provider [phone] Encounter Details Date Type Department Care Team (Late st Contact Info) Description 02/18/2018 Telephone [place] [address] Ileana Srivastava RMA Social History Tobacco Use [...] Telephone Encounter - Ileana Srivastava RMA - 02/18/2018 1:18 PM EST Indications 02/16/[address] of Dr Ahuja I have tried to reach Stacy on her home phone and her cell phone. There was no answer or VM available. Per Dr Ahuja he wanted to make sure that Stacy was able to get her medication and did not feel that she needed to go to a rehab. Unable to reach Azra by phone. documented in this encounter Plan of Treatment Upcoming Encounters Date Type Department Care Team (Late st Contact Info) Description 03/04/2024 12:00 PM EST Office Visit [place] [address] [facility] [place] [address] documented as of this encounter Visit Diagnoses Not on filedocumented in this encounter Care Teams Watch Manufacturing Supervisor Relationship Specialty Start Date End Date Dandy Driscoll APRN [address] [place] [address] [place] [phone] PCP - General Family Medicine 01/20/16 documented as of this encounter
--- OUTSIDE RECORDS SUMMARY | 2024-02-27 19:36 | XMS_ITS | Encounter Summary ---
[place] [address] Care Team Providers Care Receptionist/Telephone Operator Name Role Phone Dandy Driscoll APRN Primary Care Provider [phone] Reason for Visit * Reason Comments Follow Up Surgery left ant ENA DOS 02/13/18 wound check Encounter Details Date Type Department Care Team (Late st Contact Info) Description 03/14/2018 12:40 PM EST Office [place] [address] Patrick Dumont MD Status post total replacement [...] Time Taken Comments Blood Pressure 161/79 03/14/2018 1:04 PM EST Pulse 92 03/14/2018 1:04 PM EST Temperature - - Respiratory Rate - - Oxygen Saturation - - Inhaled Oxygen Concentration - - Weight 115.7 kg (255 lb) 03/14/2018 1:04 PM EST verbal Height 157.5 cm (5' 2) 03/14/2018 1:04 PM EST v erbal Body Mass Index 46.64 03/14/2018 1:04 PM EST documented in this encounter Progress Notes * Patrick Dumont MD - 03/14/2018 12:40 PM EST I have seen the patient and reviewed Alejandrina DANG's history/physical and I agree with the detailsas written. The assessment and plan were formulated in discussion with me and I agree with them as documented. In brief, patient is a 67-year-old female status post left total hip arthroplasty. She is now 4-5 weeks out. Her incision had some area of superficial dehiscence. This looks very good today. No surrounding erythema. Very mild superficial area centrally. Otherwise well-healed. Patient will keep a Mepilex on this wound the next week. She will see her physical therapist on next and they will relay a message to me. Otherwise we will see her back in 8 weeks. Patrick Dumont MD, MS 03/14/2018 * Alejandrina Elliott PA - 03/14/2018 12:40 PM EST Arthroplasty/Orthopaedic History: 1. Left ENA - 02/13/18 - Dr. Dumont HPI: Stacy Knight is a very pleasant 67 y.o. year-old female and is now 4 weeks s/p left ENA. She presents today for another wound check. She has had some areas of dehiscence and mild drainage. She has a hard time keeping the incision dry underneath her panus. She tells me her hip feels good and she has almost no pain in the hip. At her visit I placed a mepilex silver dressing onto her incision. She has left this on throughout this past week. She has not noticed any drainage while this currentdressing has been in place. She remains afebrile with no chills. ROS: Denies: fever, chills, night sweats, nausea, or vomiting BP 161/79 (BP Location (NBP): Right arm, Patient Position: Sitting, BP Cuff Sizes: Large Adult (32-43 cm)) Pulse 92 Ht 157.5 cm (5' 2) Comment: verbal Wt 115.7 kg (255 lb) Comment: verbal BMI 46.64 kg/m?? Physical Exam: Well-appearing female in no acute distress. Alert and Oriented x 3 and answers all questions appropriately. The incision is healing, with some erythema, with a few yulisa of fresh granulation tissue; there is no dehiscence; no drainage. . X-RAYS: None today. Questionnaire Responses: [facility] Surgical Postop Visit 03/07/2018 PROMIS-10 General Health [...] here for another wound check. She is doing well. Her incision is healing and looks better than last week. Her wound was re-dressed with a silver mepilex, and should leave this on for the next week. Her PT will re-dress it in one week. She will follow up in 2 weeks for repeat wound check with no X-rays. We discussed the appropriate precautions surrounding dental [...] PM EST Office Visit [place] [address] Jordyn Francisco MD [facility] OBSTETRICS [place] [address] documented as of this encounter Visit Diagnoses Diagnosis Status post total replacement of left hip documented in this encounter Care Teams Receptionist/Telephone Operator Relationship Specialty Start Date End Date Dandy Driscoll APRN [address] [facility] [place] [phone] PCP - General Family Medicine 01/20/16 documented as of this encounter
--- OUTSIDE RECORDS SUMMARY | 2024-02-27 19:36 | XMS_ITS | Encounter Summary ---
Author Organization [facility] [place] [address] Care Team Providers Care Bridge Painter Helper Name Role Phone Dandy Driscoll APRN Primary Care Provider [phone] Encounter Details Date Type Department Care Team (Late st Contact Info) Description 11/16/2017 Telephone [place] [address] Karen Cheng, RN Social History Tobacco Use Types Packs/Day [...] encounter Miscellaneous Notes * Telephone Encounter - Karen Cheng RN - 11/16/2017 9:54 AM EDT Call back to the patient. Informed that patient needs to stop Naproxen 7 days before the surgery. Faxed the referral to [place], [place] [phone] documented in this encounter Plan of Treatment Upcoming Encounters Date Type Department Care Team (Late st Contact Info) Description 03/04/2024 12:00 PM EST Office Visit [place] [address] Jordyn Francisco MD [facility] [place] [address] documented as of this encounter Visit Diagnoses Not on filedocumented in this encounter Care Teams Bridge Painter Helper Relationship Specialty Start Date End Date Dandy Driscoll APRN [address] [place] [address] [place] [phone] PCP - General Family Medicine 01/20/16 documented as of this encounter
--- OUTSIDE RECORDS SUMMARY | 2024-02-27 19:36 | XMS_ITS | Encounter Summary ---
[place] [address] Care Team Providers Care Grounds Foreman Name Role Phone Dandy Driscoll APRN Primary Care Provider [phone] Encounter Details Date Type Department Care Team (Late st Contact Info) Description 03/04/2018 Telephone [place] [address] Erika Barr, RN Social History Tobacco Use Types Packs/Day [...] encounter Miscellaneous Notes * Telephone Encounter - Susan Bertrand - 03/05/2018 11:57 AM EST Patient scheduled. She went to her PCP yesterday afternoon and they sprayed the incision and butterflied it. * Telephone Encounter - Susan Bertrand - 03/04/2018 2:24 PM EST LM#1 to reschedule her 03/14/18 HCK to this 03/07/18 with xrays prior in Julia's clinic. Please double book patient at 10:50, 11:20 or 12:50pm. HCK - XR, DOS 02/13/18 LEFT ENA ANT - WOUND CHECK * Telephone Encounter - Erika Barr RN - 03/04/2018 2:16 PM EST Update/plan form Dr. Dumont: We should see her in clinic on Will send to the secretaries to schedule. * Telephone Encounter - Erika Barr RN - 03/04/2018 12:49 PM EST Images from the original note were not included. Telephone call/email with notes and pictures from PT seeing patient today at [facility]. Good afternoon I just phoned regarding Aubrie Knight DOB 52 I am using this email because she does not have her MY portal info. She said she would have to call for the ussername & password info Attached is a photo of her incision. It was red on Sunday. It opened Sunday and was warm to the touch. She checked her temperature yesterday and did not have a fever. Today it is not warm to the touch. She did not check her temperature today Should she be concerned? Come to see you or possibly her PCP? Her home # is [phone] Her cell # is [phone] Thank you for your time Belkis at [facility] for Brenda PT Will route to Dr. Dumont to advise. documented in this encounter Plan of Treatment Upcoming Encounters Date Type Department Care Team (Late st Contact Info) Description 03/04/2024 12:00 PM EST Office Visit [place] [address] Jordyn Francisco MD [facility] OBSTETRICS [place] [address] documented as of this encounter Visit Diagnoses Not on filedocumented in this encounter Care Teams Grounds Foreman Relationship Specialty Start Date End Date Dandy Driscoll APRN [address] [place] [phone] PCP - General Family Medicine 01/20/16 documented as of this encounter
--- OUTSIDE RECORDS SUMMARY | 2024-02-27 19:36 | XMS_ITS | Encounter Summary ---
[place] [address] Care Team Providers Care Hot Box Operator Name Role Phone aDndy Driscoll APRN Primary Care Provider [phone] Reason for Visit * Reason Onset Date Comments Other 02/12/2018 Encounter Details Date Type Department Care Team (Late st Contact Info) Description 02/12/2018 Tele[place] [address] Patrick Dumont MD Other Social History Tobacco Use Types Packs/Day [...] encounter Miscellaneous Notes * Telephone Encounter - Julia Baca - 02/12/2018 2:20 PM EST Patient's primary care doctor is calling in stating that she saw Stacy today and she does not have any concerns for any skin issues. The patient has significant anxiety there are no issues with moving forward with surgery regarding any skin abrasions/cuts/infections. I stated that it appears that the surgery is still scheduled for tomorrow, will update Dr. Dumont that her primary care does not have any concerns moving forward with surgery.. documented in this encounter Plan of Treatment Upcoming Encounters Date Type Department Care Team (Late st Contact Info) Description 03/04/2024 12:00 PM EST Office Visit [place] [address] Jordyn Francisco MD [facility] OBSTETRICS [place] [address] documented as of this encounter Visit Diagnoses Not on filedocumented in this encounter Care Teams Hot Box Operator Relationship Specialty Start Date End Date Dandy Driscoll APRN [address] [place] [address] [place] [phone] PCP - General Family Medicine 01/20/16 documented as of this encounter
--- OUTSIDE RECORDS SUMMARY | 2024-02-27 19:36 | XMS_ITS | Encounter Summary ---
Author Organization [place] [address] Care Team Providers Care Assistant Professor Of English Name Role Phone DriscollMitulchong LANDEROS Primary Care Provider [phone] Encounter Details Date Type Department Care Team (Late st Contact Info) Description 11/16/2017 Notes [place] [phone] Herlinda Madrid Social History Tobacco Use Types Packs/Day Years [...] as of this encounter Progress Notes * Herlinda Madrid - 11/16/2017 8:46 AM EDT Office of Care Management Initial Assessment Herlinda Madrid reviewed record and discussed patient with Care Team. Source of Information: Stacy Knight Introduced self/reviewed role; services accepted. Reason for Hospitalization: Primary OA of left hip. Left ENA on 12/12/[address] Patrick Dumont. No past medical history on file. Hospitalizations Within the Past 30 Days: Anticipated Length Of Stay (If known): 0-1 Current Decision-Making Capacity: She is capable of making her own medical decisions. Advance Care Planning: We discussed what an ADV DIR is and its purpose thereof. She does not have an ADV DIR. She was provided with the forms and intends on completing one prior to surgery. Current Coping/Education/Information Needs: She states she understands the hospital course and d/c plans for a ENA at [facility] as outlined by the outpatient ortho clinic team. She had a TKA at [facility] with Dr. Delcid back in 2012. Current Functional Ability: Functional Status Prior to Admission: At her pre-op baseline, she ambulates with a cane when going outside. She does not need the cane inside. Able to do her ADL without assistance. Has had digestive issues and has required assistance with cleaning up after an accident. Able to manage household tasks to some degree. Unable to lift laundry, sweep, or mop. Able to drive. Disabled/Unemployed. Home Environment: Lives in a house with 1 level. 1 step into the house. Is looking into installing a railing. Has a tub shower bit has been taking showers at orthodoxy in the walk-in shower. Has a transfer bench. A walker will not fit in her kitchen. Has a commode. Social & Family Supports/Community Resources: Her caregiver is her partner Dami. Behavioral Health History: None Substance Use/Abuse: Smoking: Former Smoker (Quit Date:04/09/1979) Smokeless Tobacco: Never Used Alcohol: No Other Pertinent/Service Specific Information: I discussed with the patient the potential avenues ofdischarge postoperatively. We discussed qualifications to go to a group home facility. We discussed potential out of pocket costs associated with non-emergent wheelchair van and ambulance transportation.We discussed the purpose and services provided by [facility]. If patient opts to go to outpatient physical therapy post-op, they are responsible for scheduling their initial and subsequent appointments. I communicated that we will not know until after surgery what will be the best course of discharge for the patient based on medical necessity and that this is why we plan for different courses of discharge. I informed the patient that they will be working with a director medicare sales after surgery to facilitate the discharge plan. I encouraged the patient to call with any questions or concerns prior to the surgery as well as when they discharge home. Health/Prescription Coverage: Primary Insurance: MEDICARE Secondary Insurance: [facility] Prescription Coverage: Yes Preferred Pharmacy: [facility] [address] [place] [address] - [address] [place] [address] ? 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 Potential Needs for Transition of Care: Rehab/SNF: No selection Home Health: No selection OP PT: [facility] Referral sent. Appnts made. Fax OP note, PT note, and d/c summary to facility. DME: Has 3 - 2 FWWs, 2 canes, and forearm crutches. Dialysis: No Community Resources: None Transportation: We discussed that since we cannot determine the exact day or time of discharge, transportation must be readily available at time of discharge. Transportation will be provided by Dami. Other: None Anticipated Barriers to Discharge/Special Considerations: None Assessment: Plan: She prefers to d/c home with OP PT. A member of the Care Management team will continue to monitor progress, follow for continuity of care and assist with transition of care planning. Herlinda Madrid Pager: [phone] documented in this encounter Plan of Treatment Upcoming Encounters Date Type Department Care Team (Late st Contact Info) Description 03/04/2024 12:00 PM EST Office Visit [place] [address] Jordyn Francisco MD [facility] [address] OBSTETRICS [place] [address] documented as of this encounter Visit Diagnoses Not on filedocumented in this encounter Care Teams Assistant Professor Of English Relationship Specialty Start Date End Date Dandy Driscoll APRN [address] [place] [address] SHELLI Reich [phone] PCP - General Family Medicine 01/20/16 documented as of this encounter
--- OUTSIDE RECORDS SUMMARY | 2024-02-27 19:37 | XMS_ITS | Encounter Summary ---
Author Organization [facility] [place] [address] Care Team Providers Care Gold Miner Blasting Name Role Phone Rashawn Bryant MD Primary Care Provider [phone] Encounter Details Date Type Department Care Team (Late st Contact Info) Description 12/02/2012 Orders Only Orthopaedics at [place] [phone] Ashley Laughlin RN Knee joint replacement by other means (Primary Dx) Social History Tobacco Use Types Packs/Day Years Used Date Smoking Tobacco: Never Smokeless Tobacco: Never Comments:Grew up with both p arents smoking in house hold. Alcohol Use Standard Drinks/Week Comments Yes 0 (1 standard drink = 0.6 oz pur e alcohol) Occasionally Sex and Gender Information Value Date Recorded Sex Assigned at Not on file Gender Identity Not on file Sexual Orientation Not on file documented as of this encounter Plan of Treatment Upcoming Encounters Date Type Department Care Team (Late st Contact Info) Description 03/04/2024 12:00 PM EST Office Visit [place] [phone] Jordyn Francisco MD [facility] [place] [address] documented as of this encounter Visit Diagnoses Diagnosis Knee joint replacement by other means- Primary documented in this encounter Care Teams Gold Miner Blasting Relationship Specialty Start Date End Date Rashawn Bryant MD [address] [place] [address] [address] [place] 120715 PCP - General 11/03/10 01/13/15 documented as of this encounter
--- OUTSIDE RECORDS SUMMARY | 2024-02-27 19:37 | XMS_ITS | Encounter Summary ---
Author Organization [facility] Address [facility] [place] [address] Care Team Providers Care Rehabilitation Clerk Name Role Phone Rashawn Bryant MD Primary Care Provider Reason for Visit * Reason Comments Aftercare Of Tjr Left TKA REV 11/11/12 Encounter Details Date Type Department Care Team (Late st Contact Info) Description 12/19/2012 1:30 PM EDT Office [place] [address] Carlos Delcid MD [facility] [place] [address] Tibial compenent revision L knee (11/11/2012, Bhavin) Discharge Disposition: Home Social History Tobacco Use [...] Sign Reading Time Taken Comments Blood Pressure 161/82 12/19/2012 2:49 PM EDT Pulse 96 12/19/2012 2:49 PM EDT Temperature 36.9 ??C (98.4 ??F) 12/19/2012 2:49 PM ED T Respiratory Rate - - Oxygen Saturation - - Inhaled Oxygen Concentration - - Weight 115.7 kg (255 lb) 12/19/2012 2:49 PM EDT Height 157.5 cm (5' 2) 12/19/2012 2:49 PM EDT Body Mass Index 46.64 12/19/2012 2:49 PM EDT documented in this encounter Progress Notes * Carlos Delcid MD - 12/19/2012 2:24 PM EDT Patient Name: Stacy Knight : [id number] MR#: [id number] Case Date: 11/11/2012 Surgeon: Surgeon(s) and Role: * Carlos Delcid MD - Primary * Wai Golden MD Preoperative diagnosis: LEFT REV TKA Postoperative diagnosis: LEFT REV TKA Procedure(s): @TOTAL KNEE REVISION ARTHROPLASTY, COMPLETE MODIFIER PFC & MBT REVISION DEPUY MODIFIER PFC STABILIZED FIXED MODULAR DEPUY HPI: Stacy Knight is a very pleasant 62 y.o. year-old female who presents for a 5 week follow-up of the above procedure. The patient has been doing very well and her pain is minimally improved over preoperative status. Currently taking Naproxen 500 mg twice daily for analgesia and applying ice intermittently, with good effect. Also using TENS unit. No fevers, chills, nausea, vomiting, or symptoms of infection. Sleep somewhat normalized. Appetite back to normal. Stacy has been ambulating with acane for uneven or rough ground and working with PT. Her course of Rivaroxaban has been completed and has not been taking ASA 325 mg twice daily for DVT prophylaxis. Both calves are soft, non tender with no redness noted. Physical Exam: Well-appearing female in no acute distress. Alert and Oriented x 3 and answers all questions appropriately. The incision is well healed. Redness with a small pimple like area on incision, looks like a stitch. Patient to monitor area for advancing signs of infection and agreed to calland report to nurse. Calves soft, non tender. Knee Exam: Left Gait Abnormality: Normal Knee ROM: Extension:0 Flexion: 115 Alignment: 0-4 degrees Neutral Stability: A/P Translation <5mm Varus <5mm Valgus <5mm Extension La degrees or less Patella Tracking: Normal Pulses Palpable: Left PT:Yes Left DP:Yes Motor/Sensory: Distal Motor: Normal Distal Sensory: Normal, some numbness inner aspect of knee. Quadriceps Strength: 5 X-RAYS: X-rays show a well-placed prosthesis with no evidence of fracture or loosening. ASSESSMENT/PLAN: Five weeks post-op and doing well. Continue weightbearing as tolerated and workingon range of motion, and we will see her back in 8 weeks for repeat examination. No x-rays will be needed at that time. Patient may return to normal activities as her pain and function allow. We discussed the appropriate precautions surrounding dental prophylaxis. I stressed that she shouldavoid elective dental procedures for the first 6 months after surgery and then call the office for a prescription prior to any further dental work for the lifetime of the joint replacement. We also discussed maintaining good foot care and giving prompt attention to any source of infection throughout the body including foot ulcers and urinary tract infections. In the presence of Dr. Delcid, Scarlett Arizmendi RN is documenting in this note as a scribe. documented in this encounter Plan of Treatment Upcoming Encounters Date Type Department Care Team (Late st Contact Info) Description 03/04/2024 12:00 PM EST Office Visit [place] [address] Jordyn Francisco MD [facility] OBSTETRICS [place] [address] documented as of this encounter Visit Diagnoses Diagnosis Tibial compenent revision L knee (11/11/2012, Bhavin) Knee joint replacement by other means documented in this encounter Care Teams Rehabilitation Clerk Relationship Specialty Start Date End Date Rashawn Bryant MD [address] [place] [address] [place] [address] PCP - General 11/03/10 01/13/15 documented as of this encounter
--- OUTSIDE RECORDS SUMMARY | 2024-02-27 19:37 | XMS_ITS | Encounter Summary ---
[place] [address] Care Team Providers Care Batter Depositor Name Role Phone Rashawn Bryant MD Primary Care Provider [phone] Reason for Referral * Physical Therapy (Routine) - Complete - Patient Will Schedule External Appt Specialty Diagnoses / Procedures Referred By Contac t Referred To Contact Physical Therapy Diagnoses Knee joint replacement by other means [facility] Orthopa[facility]ics [address] [place] [phone] Referral ID Status Reason Start Date Expiration Date Visits Requested Visits Authorized [id number] Complete - Patient Will Schedule External Appt Evaluate and Treat 12/12/2012 06/10/2013 12 12 Encounter Details Date Type Department Care Team (Late Contact Info) Description 12/12/2012 Orders [place] [phone] Ashley Laughlin, RN Knee joint replacement by other means [...] PM EST Office Visit [place] [address] Jordyn Francisco MD [facility] [place]ST[place] [address] Scheduled Referrals Name Type Priority Associated Diagnoses Orde r Schedule Referral to Physical Therapy Outpatient Referral Routine Knee joint replacement by other means Ordered: 12/12/2012 documented as of this encounter Visit Diagnoses Diagnosis Knee joint replacement by other means- Primary documented in this encounter Care Teams Batter Depositor Relationship Specialty Start Date End Date Rashawn Bryant MD [address] [place] [address] [place] [address] PCP - General 11/03/10 01/13/15 documented as of this encounter
--- OUTSIDE RECORDS SUMMARY | 2024-02-27 19:37 | XMS_ITS | Encounter Summary ---
Author Organization [facility] Address [facility] [place] [address] Care Team Providers Care Digital Sales Director Name Role Phone Dandy Driscoll APRN Primary Care Provider [phone] Encounter Details Date Type Department Care Team (Latest Contact Info) Description 01/20/2016 11:00 AM EDT - 01/20/2016 11:59 PM EDT Hospital Encounter XRay at [address] [place] [address] Carlos Delcid MD [facility] [place] [address] Presence of artificial knee joint, bilateral Discharge Disposition: Home Social History Tobacco Use Types Packs/Day Years Used Date Smoking Tobacco: Never Smokeless Tobacco: Never Comments:Grew up with both p arents smoking in house hold. Alcohol Use Standard Drinks/Week Comments No 0 (1 standard drink = 0.6 oz pur e alcohol) Sex and Gender Information Value Date Recorded Sex Assigned at Not on file Gender Identity Not on file Sexual Orientation Not on file documented as of this encounter Medications at Time of Discharge Medication Sig Dispensed Refills Start Date End Date Cranberry 1,000 mg Cap Take by mouth 2 times daily. levalbuteroL (XOPENEX HFA) 45 mcg/actuation HFA Aerosol Inhaler Inhale 2 puffs into the lungs every 4 hours as needed. traMADol (ULTRAM) 50 mg Tablet TAKE ONE TABLET BY MOUTH AT BEDTIME NEEDED 2 08/26/2015 02/15/2018 cephALEXin (KEFLEX) 500 mg capsule Take by mouth as needed. TAKES 1 HOUR PRIOR TO DENTAL WORK. 02/13/2018 naproxen (NAPROSYN) 250 mg tablet Take 250 mg by mouth 2 times daily (with meals). 11/05/2020 verapamil (CALAN-SR) 240 mg CR tablet Take 240 mg by mouth nightly. 11/05/2020 fluticasone-salmeterol (ADVAIR) 500-50 mcg/dose diskus inhaler Inhale 1 puff into the lungs 2 times daily. 05/08/2023 cyclobenzaprine (FLEXERIL) 10 mg tablet Take 5 mg by mouth 3 times daily as needed. 01/26/2021 documented as of this encounter Plan of Treatment Upcoming Encounters Date Type Department Care Team (Late st Contact Info) Description 03/04/2024 12:00 PM EST Office Visit [place] [address] Jordyn Francisco MD [facility] DR OBSTETRICS [place] [address] documented as of this encounter Procedures Procedure Name Priority Date/Time Associated Diagnosis Comments XR KNEE AP AND LAT BILAT Routine 01/20/2016 11:25 AM EDT Presence of artificial knee joint, bilateral documented in this encounter Results * XR Knee 1-2 Views Bilat (Generic) (01/20/2016 11:25 AM EDT) Anatomical Region Laterality Modality Knee Bilateral Digital Radiogra phy Impressions 01/20/2016 11:34 AM EDT No change in appearance of bilateral total knee arthroplasties. Narrative 01/20/2016 11:34 AM EDT EXAMINATION: XR KNEE 1-2 VIEWS BILAT (GENERIC) CLINICAL HISTORY: Bila TKA TECHNIQUE: AP and lateral bilateral knees. COMPARISON: 01/14/2015 FINDINGS: There is no interval change, specifically in the position of the femoral, tibial and patellar components of the bilateral total knee arthroplasties. No periprosthetic fracture or significant new periprosthetic lucency is seen. Again noted is the screw in the proximal RIGHT tibia just below the level of the tibial component. Procedure Note Wojciech Hernandez MD - 01/20/2016 EXAMINATION: XR KNEE 1-2 VIEWS BILAT (GENERIC) CLINICAL HISTORY: Bila TKA TECHNIQUE: AP and lateral bilateral knees. COMPARISON: 01/14/2015 FINDINGS: There is no interval change, specifically in the position of the femoral,tibial and patellar components of the bilateral total knee arthroplasties. No periprosthetic fracture or significant new periprosthetic lucency is seen.Again noted is the screw in the proximal RIGHT tibia just below the level ofthe tibial component. IMPRESSION No change in appearance of bilateral total knee arthroplasties. Carlos Delcid MD IMG DX ORDERABLES documented in this encounter Visit Diagnoses Diagnosis Presence of artificial knee joint, bilateral documented in this encounter Care Teams Digital Sales Director Relationship Specialty Start Date End Date Dadny Driscoll APRN [address] [place] [address] [place] [address] PCP - General Family Medicine 01/20/16 documented as of this encounter
--- OUTSIDE RECORDS SUMMARY | 2024-02-27 19:37 | XMS_ITS | Encounter Summary ---
Author Organization [facility] [place] [address] Care Team Providers Care Regional Transfer Liaison Name Role Phone Rashawn Bryant MD Primary Care Provider [phone] Reason for Visit * Reason Onset Date Comments Letter Request From Patient 02/14/2013 Disa bility... Encounter Details Date Type Department Care Team (Late st Contact Info) Description 02/14/2013 Telephone [place] [address] Carlos Delcid MD [facility] [place] [address] Letter Request From Patient (Disability...) Social History Tobacco Use Types Packs/Day Years [...] encounter Miscellaneous Notes * Telephone Encounter - Angelic Dumont - 02/14/2013 10:23 AM EST Letter completed and mailed. * Telephone Encounter - Nora Brady - 02/14/2013 8:11 AM EST Denise. Kumar was seen by [facility]BS on 02/13. In Team [employer]udjazz[employer], he asked that a Letter of Disability be written for the patient stating that she has had bilateral TKAs and revision in the past. She is not to stand for long periods of time, and she is not to walk for long durations. This has been an issue for > 1 yr. Thank you. Nicole. documented in this encounter Plan of Treatment Upcoming Encounters Date Type Department Care Team (Late st Contact Info) Description 03/04/2024 12:00 PM EST Office Visit [place] [address] Jordyn Francisco MD [facility] OBSTETRICS [place] [address] documented as of this encounter Visit Diagnoses Not on filedocumented in this encounter Care Teams Regional Transfer Liaison Relationship Specialty Start Date End Date Rashawn Bryant MD [address] [place] [address] [place] [address] PCP - General 11/03/10 01/13/15 documented as of this encounter
--- OUTSIDE RECORDS SUMMARY | 2024-02-27 19:37 | XMS_ITS | Encounter Summary ---
Author Organization [facility] [place] [address] Care Team Providers Care Care Aide Name Role Phone Dandy Driscoll APRN Primary Care Provider [phone] Encounter Details Date Type Department Care Team (Latest Contact Info) Description 03/26/2017 - 03/26/2017 11:59 PM EST Hospital Encounter Radiology Library at [facility] [place] [phone] Patrick Dumont MD Pain Discharge Disposition: Home Social History Tobacco Use [...] Sig Dispensed Refills Start Date End Date buPROPion (WELLBUTRIN XL) 150 mg Tablet Extended Release 24 hr 300 mg daily. 12 11/13/2016 Cranberry 1,000 mg Cap Take by mouth 2 times daily. levalbuteroL (XOPENEX HFA) 45 mcg/actuation HFA Aerosol Inhaler Inhale 2 puffs into the lungs every 4 hours as needed. naproxen sodium (ANAPROX) 550 mg Tablet 2 times daily as needed. 2 11/13/201606/2017 loperamide (IMODIUM A-D) 2 mg Tablet Take 4 mg by mouth 4 times daily as needed for Diarrhea. Maximum 16 mg in 24 hours 12/04/2023 Cranberry Extract 200 mg Capsule Take by mouth. 08/09/2017 LIDOCAINE/MENTHOL (ZIM'S MAX-FREEZE, LIDO-MENTHL, TOP) Apply topically. 2017 qxkl-nird-pzx-jinny-artemio -violette-hor [phone] mg Tablet Take by mouth. 02/15/2018 LACTOSE-REDUCED [...] PM EST Office Visit [place] [phone] oJrdyn Francisco MD [facility] OBSTETRICS [place] [address] documented as of this encounter Procedures Procedure Name Priority Date/Time Associated Diagnosis Comments FILM LIBRARY STORAGE ONLY DX PELVIS Routine 03/26/2017 12:00 AM EST Pain documented in this encounter Results * Film Library- Storage Only DX Pelvis (03/26/2017 12:00 AM EST) Narrative [facility] - 05/10/2017 12:04 PM EST This exam is for storage only and is auto-finalizing. Patrick Dumont MD G FILM LIBRARY ORD ERABLES [place], [place] documented in this encounter Visit Diagnoses Diagnosis Pain Generalized pain documented in this encounter Care Teams Care Aide Relationship Specialty Start Date End Date Dandy Driscoll APRN [address] [place] [address] SHELLI Reich [address] PCP - General Family Medicine 01/20/16 documented as of this encounter
--- OUTSIDE RECORDS SUMMARY | 2024-02-27 19:37 | XMS_ITS | Encounter Summary ---
Author Organization [facility] Address [facility] [place] [address] Care Team Providers Care Hand Pleater Name Role Phone Dandy Driscoll APRN Primary Care Provider [phone] Encounter Details Date Type Department Care Team (Latest Contact Info) Description 08/09/2017 12:43 PM EDT - 08/09/2017 11:59 PM EDT Hospital Encounter XRay at [address] [place] [address] Patrick Dumont MD Pain in left hip Discharge Disposition: Home Social History Tobacco Use Types Packs/Day Years Used Date Smoking Tobacco: Former Cigarettes Q uit: 1980 Smokeless Tobacco: Never Alcohol Use Standard Drinks/Week [...] (ZIM'S MAX-FREEZE, LIDO-MENTHL, TOP) Apply topically. 2017 fear-udtw-osb-yuc-artemio -violette-hor [phone] mg Tablet Take by mouth. 02/15/2018 LACTOSE-REDUCED [...] Office Visit [place] [address] Jordyn Francisco MD [facility] DR OBSTETRICS [place] [address] documented as of this encounter Procedures Procedure Name Priority Date/Time Associated Diagnosis Comments XR PELVIS AND HIP 2 VIEWS LEFT Routine 08/09/2017 1:15 PM EDT Pain in left hip documented in this encounter Results * XR Pelvis w AP & Lat Hip Left (08/09/2017 1:15 PM EDT) Anatomical Region Laterality Modality Pelvis, Hip Left Digital Radiogra phy Impressions 08/09/2017 1:53 PM EDT 1. No acute fracture or dislocation of the left hip. 2. Severe arthropathy of the left hip is noted with considerable joint space narrowing. 3. Mild osteoarthritis involves the right hip. Narrative 08/09/2017 1:53 PM EDT EXAMINATION: XR PELVIS W AP AND LAT HIP LEFT CLINICAL HISTORY: LEFT HIP PAIN TECHNIQUE: Low AP pelvis and AP and frog-leg radiographs left hip COMPARISON: None FINDINGS: No acute fracture or dislocation of the left hip is noted. Severe arthropathy of the left hip is noted with considerable joint space narrowing. Subchondral cysts and sclerosis is noted. Foci heterotopic calcification are identified along the lateral aspect of the acetabulum. Mild osteoarthritis involves the right hip. Osteoarthritis involves sacroiliac joints. Degenerative changes are noted in the visualized lower lumbar spine. Procedure Note Dandre Mccann MD - 08/09/2017 EXAMINATION: XR PELVIS W AP AND LAT HIP LEFT CLINICAL HISTORY: LEFT HIP PAIN TECHNIQUE: Low AP pelvis and AP and frog-leg radiographs left hip COMPARISON: None FINDINGS: No acute fracture or dislocation of the left hip is noted.Severe arthropathy of the left hip is noted with considerable joint spacenarrowing. Subchondral cysts and sclerosis is noted. Foci heterotopic calcificationare identified along the lateral aspect of the acetabulum. Mild osteoarthritis involves the right hip. Osteoarthritis involves sacroiliac joints. Degenerative changes are noted in the visualized lower lumbar spine. IMPRESSION 1. No acute fracture or dislocation of the left hip. 2. Severe arthropathy of the left hip is noted with considerable jointspace narrowing. 3. Mild osteoarthritis involves the right hip. Patrick Dumont MD IMG DX ORDERABLES documented in this encounter Visit Diagnoses Diagnosis Pain in left hip Pain in joint, pelvic region and thigh documented in this encounter Care Teams Hand Pleater Relationship Specialty Start Date End Date Dandy Driscoll APRN [address] [place] [address] [place] [address] PCP - General Family Medicine 01/20/16 documented as of this encounter
--- OUTSIDE RECORDS SUMMARY | 2024-02-27 19:37 | XMS_ITS | Encounter Summary ---
Author Organization [facility] [place] [address] Care Team Providers Care Nail Feeder Name Role Phone Rashawn Bryant MD Primary Care Provider [phone] Reason for Visit * Reason Onset Date Comments Other 12/01/2013 Encounter Details Date Type Department Care Team (Late st Contact Info) Description 12/01/2013 Telephone [place] [phone] Carlos Delcid MD [facility] [place] [address] Other Social History Tobacco Use Types Packs/Day [...] encounter Miscellaneous Notes * Telephone Encounter - Ashley Laughlin RN - 12/01/2013 2:53 PM EDT Refaxed as requested. * Telephone Encounter - Celi, Julia Damon - 12/01/2013 1:39 PM EDT Patient received an order for her stockings, but it should read to order quantity of 3 instead of one. Please change the order and fax to [facility] at [phone]. documented in this encounter Plan of Treatment Upcoming Encounters Date Type Department Care Team (Late st Contact Info) Description 03/04/2024 12:00 PM EST Office Visit [place] [address] Jordyn Francisco MD [facility] OBSTETRICS [place] [address] documented as of this encounter Visit Diagnoses Not on filedocumented in this encounter Care Teams Nail Feeder Relationship Specialty Start Date End Date Rashawn Bryant MD [address] [place] [address] [place] [address] PCP - General 11/03/10 01/13/15 documented as of this encounter
--- OUTSIDE RECORDS SUMMARY | 2024-02-27 19:37 | XMS_ITS | Encounter Summary ---
Author Organization [facility] Address [facility] [place] [address] Care Team Providers Care Document Image Technician Name Role Phone Rashawn Bryant MD Primary Care Provider [phone] Encounter Details Date Type Department Care Team (Latest Contact Info) Description 12/19/2012 1:53 PM EDT - 12/19/2012 11:59 PM EDT Hospital Encounter XRay at [address] [place] [address] H/O total knee replacement Social History Tobacco Use Types Packs/Day [...] lungs every 4 hours as needed. naproxen (NAPROSYN) 250 mg tablet Take 250 mg by mouth 2 times daily (with meals). 11/05/2020 acetaminophen (TYLENOL) 500 mg tablet Take 2 tablets by mouth every 8 hours as needed for Pain. 11/13/2012 02/13/2013 verapamil (CALAN-SR) 240 mg CR tablet Take [...] PM EST Office Visit Gyne[place] [address] Jordyn Francisco MD [facility] DR OBSTETRICS [place] [address] documented as of this encounter Procedures Procedure Name Priority Date/Time Associated Diagnosis Comments XR TKA FIRST PO VISIT ALIGNMENT AP LAT SKYLINE Routine 12/19/2012 2:18 PM EDT H/O total knee replacement documented in this encounter Results * XR TKA FIRST PO VISIT ALIGNMENT AP LAT SKYLINE (12/19/2012 2:18 PM EDT) Anatomical Region Laterality Modality Knee N/A Radiographic Susan ging 12/19/2012 2:18 PM EDT Narrative 12/19/2012 3:33 PM EDT Examination TKA FIRST PO VISIT STANDING ALIGNMENT AP LAT SKYLINE/LEFT Clinical History LT TKA REV 11/11/12 Comparison Knee radiographs 11/11/2012, 05/13/2012 ?? Technique Separate images of the pelvis, knees and feet were acquired in the AP projection with the patient standing. In addition to routine views of the knee, these images were stitched together to form a composite image of the pelvis and legs allowing for evaluation of lower extremity alignment in the weight bearing position. Findings Standing alignment: The weight-bearing axes are near midline bilaterally, with minimal lateral deviation of the left weight-bearing axis. ?? Knees: There has been no change in alignment of the left total knee arthroplasty. ??There is no periprosthetic fracture or lucency. ??The revised tibial component is in unchanged position. ??Moderate sized joint effusion is present. ??The right total knee arthroplasty is unchanged. Impression No change or complication of the revised left total knee arthroplasty. Procedure Note Herman Sosa MD - 12/19/2012 Examination TKA FIRST PO VISIT STANDING ALIGNMENT AP LAT SKYLINE/LEFT Clinical History LT TKA REV 11/11/12 Comparison Knee radiographs 11/11/2012, 05/13/2012 Technique Separate images of the pelvis, knees and feet were acquired in the AP projection with the patient standing. In addition to routine views of theknee, these images were stitched together to form a composite image of thepelvis and legs allowing for evaluation of lower extremity alignment in the weightbearing position. Findings Standing alignment: The weight-bearing axes are near midline bilaterally,with minimal lateral deviation of the left weight-bearing axis. Knees: There has been no change in alignment of the left total knee arthroplasty. There is no periprosthetic fracture or lucency. Therevised tibial component is in unchanged position. Moderate sized joint effusionis present. The right total knee arthroplasty is unchanged. Impression No change or complication of the revised left total knee arthroplasty. Carlos Delcid MD IMG DX ORDERABLES documented in this encounter Visit Diagnoses Diagnosis H/O total knee replacement Knee joint replacement by other means documented in this encounter Care Teams Document Image Technician Relationship Specialty Start Date End Date Rashawn Bryant MD [address] [place] [address] [place] [address] PCP - General 11/03/10 01/13/15 documented as of this encounter
--- OUTSIDE RECORDS SUMMARY | 2024-02-27 19:37 | XMS_ITS | Encounter Summary ---
Author Organization [facility] [place] [address] Care Team Providers Care Store Team Leader Name Role Phone Rashawn Bryant MD Primary Care Provider [phone] Encounter Details Date Type Department Care Team (Late st Contact Info) Description 11/11/2012 12:48 PM EDT Anesthesia Event [place] [id number] Jeremías Mcgarry MD [facility] [place] [address] Anesthesia Record Procedure Summary Procedure Name Responsible Anesthesiologist Anesthesia Start Time Anesthesia Stop Time @TOTAL KNEE REVISION ARTHROPLASTY, COMPLETE (WRVU 27.11) (Left: Knee) Sites, Jeremías Womack MD 11/11/12 1248 11/11/12 1605 Events Date Time Event Comment 11/11/2012 1141 1248 Start 1250 AN Verify 1251 An Start Data 1253 Anesthesia Ready 1255 An Induction 1256 An Intubation 1323 An Tourn Inflated 1356 Quick Note Temp probe repl aced 1423 Quick Note 1 hour on tourn iquet 1501 An Tourn Deflated 1526 Quick Note Recruitment wagner aths given 1553 Extubation/LMA Out 1553 an stop data 1604 Quick Note Pt. To PACU on O2. AVSS. No c/o pain or nausea. Report given to EVENT ORGANIZER. 1605 Stop Meds Name Total Midazolam 2 mg fentaNYL 250 mcg propofol 230 mg Rocuronium 50 mg Ondansetron 4 mg succinylcholine 200 mg vancomycin 1 g albuterol inhaler 4 puff lactated ringers 2,400 mL * Agents Name O2 Air Sevoflurane (et) * Blood No blood administrations on file. Lines, Drains, and Airways Type Details Placement Removal Incision 11/11/12; knee; LDA not present upon assessment; 01/22/21; 1112 11/11/12 0000 by Pam Martines RN 01/22/21 1112 by Kendy Warren RN Urethral Catheter 11/11/12; indwelling double lumen catheter; silastic; 16; inserted (by Shirley Garay RN); 1; 11/12/12; 0600 11/11/12 0000 by Pam Martines RN 11/12/12 0600 by Carlos Campos Drain/Device Site 11/11/12; Left; knee ; autotransfusion system (06/22 round drain to constavac); 11/12/12 11/11/12 0000 by Pam Martines RN 11/12/12 0000 by Carlos Campos (RETIRED) Peripheral IV Line - Single Lumen 11/11/12; 1248; 11/13/12; 1131 11/11/12 1248 by Mookie Hathaway CRNA 11/13/12 1131 by Harman Mccormack RN (RETIRED) Peripheral IV Line - Single Lumen 11/13/12; 1131 11/11/12 1318 by 11/13/12 1131 by Harman Mccormack RN (RETIRED) Non-Surgical Airway Mask Ventilation: Easy (1); ETT Type: Cuffed; ETT Size: 7 mm; Removal Date: 11/11/12; Removal Time: 1553 11/11/12 1319 by 11/11/12 1553 by Mookie Hathaway CRNA documented in this encounter Social History [...] OR Notes * Anesthesia Postprocedure Evaluation - Sites, Jeremías Womack MD - 11/11/2012 4:15 PM EDT Patient: Stacy Knight Procedure(s) Performed: Procedure(s): @TOTAL KNEE REVISION ARTHROPLASTY, COMPLETE MODIFIER PFC & MBT REVISION DEPUY MODIFIER PFC STABILIZED FIXED MODULAR DEPUY Actual Anesthetic: general Patient location: PACU Post-op pain: Adequate analgesia Post-op nausea: no nausea or vomiting Last Vitals: Filed Vitals: 11/11/12 1600 BP: 131/72 Pulse: 89 Temp: Resp: Post-op cardiovascular and respiratory status: is stable Level of consciousness: awake, alert and oriented Complications: no apparent complications and tolerated the procedure well Fluid Status: normal * Anesthesia Procedure Notes - Anastasia Ybarra MD - 11/11/2012 12:32 PM EDT Associated Order(s): ANESTHESIA BLOCK Procedure: Anesthesia Block Block: Post-op Pain Control, femoral nerve block Start time: 11/11/2012 12:10 PM End time: 11/11/2012 12:31 PM This patient was greeted in the block room and the risks and benefits of the anesthetic block were reviewed. The risks of infection, bleeding, local anesthetic toxicity, and nerve injury were discussed. Specifically, the approximate risk of nerve injury (04/2999-04/4999) including neuropathy, loss of sensation and motor function, whether permanent or temporary, was discussed as well as the fact that post-surgical nerve injury can be unrelated to the actual injection and may be related to intra-operative issues such as positioning and tourniquet usage. The anesthetic consent was obtained. The timeout was performed prior to procedure start. Standard ASA monitors were applied. Indication/Prep Position: supine Prep: chlorhexidine and patient draped, sterile gloves, mask, bonnet Laterality: left Ultrasound Guidance: live and in-plane Skin Medication lidocaine 1% 2 ml Injection Injection technique:single-shot Needle Length: 10 cm Gauge: 21 Needle Type: H-htvyz-atthy Medication injection made incrementally with aspirations. Nerve infiltration solution through a needle Ropivicaine 0.5% 30 mL Performed by: Tate Supervising Attending/Fellow: Malgorzata ~~~~~~~~~~~~~~~~~~~~~~~~~~~~~~~~~~~~~~~~~~~~~~~~~~~~~~~~~~~~ * Anesthesia Preprocedure Evaluation - Jeremías Mcgarry MD - 11/11/2012 11:40 AM EDT Pre-Anesthesia Evaluation for: Stacy Knight a 62 y.o. female. Procedure(s): @TOTAL KNEE REVISION ARTHROPLASTY, COMPLETE MODIFIER PFC & MBT REVISION DEPUY MODIFIER PFC STABILIZED FIXED MODULAR DEPUY Patient Active Problem List Diagnoses ??? S/P TKR (total knee replacement) using cement ??? Impaired renal function No past medical history on file. No past surgical history on file. History Substance Use Topics ??? Smoking status: Never Smoker ??? Smokeless tobacco: Never Used Comment: Grew up with both parents smoking in house hold. ??? Alcohol Use: Yes Occasionally History Drug Use No Allergies Allergen Reactions ??? Isopropyl Alcohol Rash ??? Meperidine Hcl Other (See Comments) Very Loopy ??? Penicillins Other (See Comments) SWELLS UP ??? Propoxyphene Hcl Itching Medications: MAR and/or home medications have been reviewed. Physical Exam: There were no vitals filed for this visit. There is no height or weight on file to calculate BMI. Airway Assessment: Mallampati: III TM distance: >3 FB Neck ROM: full Cardiovascular Assessment: Rhythm: regular Pulmonary Assessment: breath sounds clear to auscultation Dental Assessment: Misc Assessment: IV access: Peripheral line Anesthesia Plan: ASA 3 general, I have seen and examined the patient. I have reviewed the medical record. Higher risk patient secondary to morbid obesity. I have reviewed risks and benefits of GA and regional anesthesia. Region - Other Informed Consent: Anesthetic plan and risks discussed with patient. Use of blood products discussed with patient whom consented to blood products. Plan discussed with DIRECTOR CREDIT RISK and resident. Misc. Assessment: documented in this encounter Plan of Treatment Upcoming Encounters Date Type Department Care Team (Late st Contact Info) Description 03/04/2024 12:00 PM EST Office Visit [place] [address] Jordyn Francisco MD [facility] [place] [address] documented as of this encounter Procedures Procedure Name Priority Date/Time Associated Diagnosis Comments ANESTHESIA BLOCK Routine 11/11/2012 12:3 6 PM EDT documented in this encounter Results * Anesthesia Block (11/11/2012 12:36 PM EDT) Narrative Anastasia Ybarra MD - 11/11/2012 12:36 PM EDT Anastasia Ybarra MD ? 11/11/2012 12:36 PM Procedure: ??Anesthesia Block Block: Post-op Pain Control, femoral nerve block Start time: 11/11/2012 12:10 PM End time: 11/11/2012 12:31 PM This patient was greeted in the block room and the risks and benefits of the anesthetic block were reviewed. ??The risks of infection, bleeding, local anesthetic toxicity, and nerve injury were discussed. ??Specifically, the approximate risk of nerve injury (04/2999-04/4999) including neuropathy, loss of sensation and motor function, whether permanent or temporary, was discussed as well as the fact that post-surgical nerve injury can be unrelated to the actual injection and may be related to intra-operative issues such as positioning and tourniquet usage. ?? The anesthetic consent was obtained. The timeout was performed prior to procedure start. ??Standard ASA monitors were applied. Indication/Prep Position: supine Prep: chlorhexidine and patient draped, sterile gloves, mask, bonnet Laterality: left Ultrasound Guidance: live and in-plane Skin Medication lidocaine 1% 2 ml Injection Injection technique:single-shot Needle Length: 10 cm Gauge: 21 Needle Type: D-kfltl-jfprv Medication injection made incrementally with aspirations. Nerve infiltration solution through a needle Ropivicaine 0.5% 30 mL Performed by: ??Tate Supervising Attending/Fellow: ??Sites ~~~~~~~~~~~~~~~~~~~~~~~~~~~~~~~~~~~~~~~~~~~~~~~~~~~~~~~~~~~~ Procedure Note Anastasia Ybarra MD - 11/11/2012 12:32 PM EDT Procedure: Anesthesia Block Block: Post-op Pain Control, femoral nerve block Start time: 11/11/2012 12:10 PM End time: 11/11/2012 12:31 PM This patient was greeted in the block room and the risks and benefits ofthe anesthetic block were reviewed. The risks of infection, bleeding,local anesthetic toxicity, and nerve injury were discussed. Specifically,the approximate risk of nerve injury (04/2999-04/4999) including neuropathy,loss of sensation and motor function, whether permanent or temporary, wasdiscussed as well as the fact that post- surgical nerve injury can beunrelated to the actual injection and may be related to intra-operativeissues such as positioning and tourniquet usage. The anesthetic consentwas obtained. The timeout was performed prior to procedure start.Standard ASA monitors were applied. Indication/Prep Position: supine Prep: chlorhexidine and patient draped, sterile gloves, mask, bonnet Laterality: left Ultrasound Guidance: live and in-plane Skin Medication lidocaine 1% 2 ml Injection Injection technique:single-shot Needle Length: 10 cm Gauge: 21 Needle Type: Y-rfxuf-ewvxf Medication injection made incrementally with aspirations. Nerve infiltration solution through a needle Ropivicaine 0.5% 30 mL Performed by: Tate Supervising Attending/Fellow: Sites ~~~~~~~~~~~~~~~~~~~~~~~~~~~~~~~~~~~~~~~~~~~~~~~~~~~~~~~~~~~~ Anastasia Ybarra MD PC ANALYST [facility] documented in this encounter Visit Diagnoses Not on filedocumented in this encounter Administered Medications Inactive Administered Medications - up to 3 most recent administrations Medication Order MAR Action Action Date Dose Rate Site albuterol (PROVENTIL HFA;VENTOLIN HFA) 90 mcg/actuation inhaler PRN, Starting on Sun11/11/12 at 1525, Until Sun11/11/12 at 1605, Wheezing, Anesthesia Intra-op, Routine Given 11/11/2012 3:25 PM EDT 4 puffs fentaNYL 50mcg/mL injection PRN, Starting on Sun11/11/12 at 1303, Until Sun11/11/12 at 1605, Pain, Anesthesia Intra-op, Routine Given 11/11/2012 2:25 PM EDT 50 mcg Given 11/11/2012 1:49 PM EDT 50 mcg Given 11/11/2012 1:44 PM EDT 25 mcg lactated ringers infusion CONTINUOUS PRN, Starting on Sun11/11/12 at 1248, Until Sun11/11/12 at 1605, Anesthesia Intra-op New Bag 11/11/2012 3:31 PM EDT mL New Bag 11/11/2012 2:13 PM EDT mL New Bag 11/11/2012 12:48 PM EDT mL midazolam (VERSED) injection PRN, Starting on Sun11/11/12 at 1248, Until Sun11/11/12 at 1605, Sleep, Anesthesia Intra-op, Routine Given 11/11/2012 12:48 PM EDT 2 mg ondansetron (ZOFRAN) injection PRN, Starting on Sun11/11/12 at 1521, Until Sun11/11/12 at 1605, Nausea, Anesthesia Intra-op, Routine Given 11/11/2012 3:21 PM EDT 4 mg propofol (DIPRIVAN) 10 mg/mL bolus injection (Anesthesia) PRN, Starting on Sun11/11/12 at 1255, Until Sun11/11/12 at 1605, Anesthesia Intra-op Given 11/11/2012 2:54 PM EDT 30 m g Given 11/11/2012 12:55 PM EDT 200 mg rocuronium (ZEMURON) injection PRN, Starting on Sun11/11/12 at 1302, Until Sun11/11/12 at 1605, Anesthesia Intra-op, Routine Given 11/11/2012 1:02 PM EDT 50 mg succinylcholine (ANECTINE) injection PRN, Starting on Sun11/11/12 at 1255, Until Sun11/11/12 at 1605, Anesthesia Intra-op, Routine Given 11/11/2012 12:55 PM EDT 200 mg vancomycin (VANCOCIN) injection PRN, Starting on Sun11/11/12 at 1248, Until Sun11/11/12 at 1605, Anesthesia Intra-op, Routine Given 11/11/2012 12:48 PM EDT 1 g documented in this encounter Care Teams Store Team Leader Relationship Specialty Start Date End Date Rashawn Bryant MD [address] [place] [address] [place] [address] PCP - General 11/03/10 01/13/15 documented as of this encounter
--- OUTSIDE RECORDS SUMMARY | 2024-02-27 19:37 | XMS_ITS | Encounter Summary ---
[place] [address] Care Team Providers Care Optical Effects Layout Person Name Role Phone Dandy Driscoll APRN Primary Care Provider [phone] Reason for Visit * Reason Onset Date Comments Pre Procedure Call 10/03/2017 Encounter Details Date Type Department Care Team (Late st Contact Info) Description 10/03/2017 Telephone [place] [address] Patrick Dumont MD Pre Procedure Call Social [...] encounter Miscellaneous Notes * Telephone Encounter - Dolores Wu - 10/03/2017 10:10 AM EDT Who is calling: Stacy Knight Was this a new injury? No Have you had Surgery?n/a If so when?Left Hip ENA 12-12-17 Who was the Surgeon?Dr. Dumont What is the question:patient would like to change the times of her pre op appointments to have themall coordinated on the same day. Best number to reach the caller: [phone] documented in this encounter Plan of Treatment Upcoming Encounters Date Type Department Care Team (Late st Contact Info) Description 03/04/2024 12:00 PM EST Office Visit Gyne[place] [address] Jordyn Francisco MD [facility] [place] [address] documented as of this encounter Visit Diagnoses Not on filedocumented in this encounter Care Teams Optical Effects Layout Person Relationship Specialty Start Date End Date Dandy Driscoll APRN [address] [place] [address] [place] [id number] PCP - General Family Medicine 01/20/16 documented as of this encounter
--- OUTSIDE RECORDS SUMMARY | 2024-02-27 19:37 | XMS_ITS | Encounter Summary ---
Author Organization [facility] [place] [address] Care Team Providers Care Mucker Operator Name Role Phone Rashawn Bryant MD Primary Care Provider [phone] Reason for Visit * Reason Onset Date Comments Reminder Appointment 10/01/2014 Encounter Details Date Type Department Care Team (Late st Contact Info) Description 10/01/2014 Telephone [place] [phone] Carlos Delcid MD [facility] [place] [address] Reminder Appointment Social History Tobacco Use Types Packs/Day Years [...] encounter Miscellaneous Notes * Telephone Encounter - Shae Keith - 10/02/2014 9:27 AM EDT Patient scheduled * Telephone Encounter - Brittany Chen - 10/01/2014 3:41 PM EDT I have called and left a message for patient to call and schedule their reminder appointment. documented in this encounter Plan of Treatment Upcoming Encounters Date Type Department Care Team (Late st Contact Info) Description 03/04/2024 12:00 PM EST Office Visit [place] [address] Jordyn Francisco MD [facility] [place] [address] documented as of this encounter Visit Diagnoses Not on filedocumented in this encounter Care Teams Mucker Operator Relationship Specialty Start Date End Date Rashawn Bryant MD [address] [place] [address] [place] [address] PCP - General 11/03/10 01/13/15 documented as of this encounter
--- OUTSIDE RECORDS SUMMARY | 2024-02-27 19:37 | XMS_ITS | Encounter Summary ---
Author Organization [facility] Address [facility] [place] [address] Care Team Providers Care Displayer Merchandise Name Role Phone Rowdy Al MD Primary Care Provider [phone] Encounter Details Date Type Department Care Team (Latest Contact Info) Description 01/14/2015 12:20 PM EDT - 01/14/2015 11:59 PM EDT Hospital Encounter XRay at [address] [place] [address] Carlos Delcid MD [facility] [place] [address] Aftercare following joint replacement Discharge Disposition: Home Social History Tobacco Use [...] the lungs every 4 hours as needed. cephALEXin (KEFLEX) 500 mg capsule Take by [...] PM EST Office Visit [place] [address] Jordyn Francisco MD [facility] DR OBSTETRICS [place] [address] documented as of this encounter Procedures Procedure Name Priority Date/Time Associated Diagnosis Comments XR KNEE DIAGNOSTIC 1 OR 2 VIEW Routine 01/14/2015 1:04 PM EDT Aftercare following joint replacement documented in this encounter Results * XR knee diagnostic 1 or 2 view (01/14/2015 1:04 PM EDT) Anatomical Region Laterality Modality Knee N/A Digital Radiogra phy Narrative 01/15/2015 5:05 PM EDT EXAMINATION: XR KNEE DIAGNOSTIC 1 OR 2 VIEW/LEFT CLINICAL HISTORY: L TKA REVISION TECHNIQUE: AP both knees and lateral view of right knee. The uptake in the right lateral view by mistake. This lateral view do not be charged. This area has been reviewed with Lucio RICHARDSON COMPARISON: November 2013 FINDINGS: Bilateral total knee arthroplasty is present. The left arthroplasty has been revised. A screw traverses the proximal tibia, distal to the right tibial components. No right knee effusion. Alignment: Both prosthesis are unchanged in alignment. Complication: There is no evidence of loosening or fracture. Soft tissues: Unremarkable Impression Unchanged and Uncomplicated bilateral total knee arthroplasties. Procedure Note Shanice Lee MD - 01/15/2015 EXAMINATION: XR KNEE DIAGNOSTIC 1 OR 2 VIEW/LEFT CLINICAL HISTORY: L TKA REVISION TECHNIQUE: AP both knees and lateral view of right knee. The uptake in theright lateral view by mistake. This lateral view do not be charged. This areahas been reviewed with Lucio RICHARDSON COMPARISON: November 2013 FINDINGS: Bilateral total knee arthroplasty is present. The left arthroplasty hasbeen revised. A screw traverses the proximal tibia, distal to the righttibial components. No right knee effusion. Alignment: Both prosthesis are unchanged in alignment. Complication: There is no evidence of loosening or fracture. Soft tissues: Unremarkable Impression Unchanged and Uncomplicated bilateral total knee arthroplasties. Carlos Delcid MD IMG DX ORDERABLES documented in this encounter Visit Diagnoses Diagnosis Aftercare following joint replacement documented in this encounter Care Teams Displayer Merchandise Relationship Specialty Start Date End Date Rowdy Al MD [address] [place] [address] [place] [address] PCP - General General Internal Medicine 01/14/1503/24 documented as of this encounter
--- OUTSIDE RECORDS SUMMARY | 2024-02-27 19:37 | XMS_ITS | Encounter Summary ---
[place] [address] Care Team Providers Care Manager Union Name Role Phone Dandy Driscoll APRN Primary Care Provider [phone] Reason for Visit * Reason Comments Left Hip Pain * Consultation (Routine) - Closed Specialty Diagnoses / Procedures Referred By Tiffanie t Referred To Contact Orthopaedics Diagnoses LEFT HIP PAIN Procedures Jj Gillis MD [facility] [address] [place] [address] [facility] [address] [place] [address] Referral ID Status Reason Start Date Expiration Date V isits Requested Visits Authorized [id number] Closed Consult, Test & Treat 07/06/2016 07/06/2017 1 1 Encounter Details Date Type Department Care Team (Late st Contact Info) Description 07/13/2016 2:00 PM EDT Office [place] [address] Patrick Dumont MD Pain in left hip Social History Tobacco Use Types [...] Sign Reading Time Taken Comments Blood Pressure 146/63 07/13/2016 1:14 PM EDT Pulse 91 07/13/2016 1:14 PM EDT Temperature - - Respiratory Rate - - Oxygen Saturation - - Inhaled Oxygen Concentration - - Weight 117.7 kg (259 lb 6.4 oz) 07/13/2016 1:14 PM EDT pt reported Height 157.5 cm (5' 2) 07/13/2016 1:14 PM EDT pt reported Body Mass Index 47.44 07/13/2016 1:14 PM EDT documented in this encounter Progress Notes * Patrick Dumont MD - 07/13/2016 2:00 PM EDT I have seen the patient and reviewed Nathan Greenfield PAC history/physical and I agree with the details as written. The assessment and plan were formulated in discussion with me and I agree with them as documented. In brief, patient is a 66-year-old female who is seen today for intermittent left hip pain mostly with deep flexion. She notes that this is not terribly bothersome 4. She has a history of bilateral total knees performed with left knee revision as well. These are functioning well. At this point, over the last 2 years patient has lost 50 pounds. She continues to work forward in this manner. Discussed with her treatment options regarding left hip osteoarthritis. Discussed role of nonsteroidal anti-inflammatories, and injections, total hip arthroplasty. I did discuss with her that there is a BMI cut off a 40 and that she is about this and she should continue to work on weight loss both for her h ip preservation and if she decides to move forward with hip replacement. She'll contact us if she like to move forward with an injection or any other intervention. Patrick Dumont MD, MS 07/13/2016 * Lucio Greenfield PA - 07/13/2016 2:00 PM EDT HPI: 66 yo female with several month history of increased pain to her left hip. She had a couple falls this winter which seemed to worsen things. Pain is diffuse; at times posterior or anterior and also lateral. She finds certain positions most problematic especially forward flexion at the waist. She has been doing PT which has helped significantly. She has had both her knees replaced which are working well. PE: Ambulatory without assist or antalgia. When seated, ROM of the hip is fairly well tolerated with little pain or apprehension. There is some trochanteric tenderness on the left side. No effusion to either knee. Calves soft and nontender. X-rays: There is single AP and lateral view of the left hip showing marked degenerative change to the hip. No other images for comparison. Assessment: Left hip pain, Plan: We discussed her hip and her complaints. We discussed a range of treatments. I think for now continued conservative management is most reasonable. We'll see her again as needed. documented in this encounter Plan of Treatment Upcoming Encounters Date Type Department Care Team (Late st Contact Info) Description 03/04/2024 12:00 PM EST Office Visit [place] [address] Jordyn Francisco MD [facility] OBSTETRICS [place] [address] documented as of this encounter Visit Diagnoses Diagnosis Pain in left hip Pain in joint, pelvic region and thigh documented in this encounter Care Teams Manager Union Relationship Specialty Start Date End Date Dandy Driscoll APRN [address] [place] [address] [place] Reich [phone] PCP - General Family Medicine 01/20/16 documented as of this encounter
--- OUTSIDE RECORDS SUMMARY | 2024-02-27 19:37 | XMS_ITS | Encounter Summary ---
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, left (Primary Dx) Social History Tobacco Use Types [...] Sign Reading Time Taken Comments Blood Pressure 151/62 01/14/2015 2:06 PM EDT Pulse 77 01/14/2015 2:06 PM EDT Temperature - - Respiratory Rate - - Oxygen Saturation - - Inhaled Oxygen Concentration - - Weight 122 kg (269 lb) 01/14/2015 2:06 PM EDT fu lly clothed Height 157.5 cm (5' 2) 01/14/2015 2:06 PM EDT v leana Body Mass Index 49.2 01/14/2015 2:06 PM EDT documented in this encounter Patient Instructions * Patient Instructions* Lucio Greenfield PA - 01/14/2015 2:23 PM EDT -activities as tolerated with exception of running (axial loading) -infection awareness -continue stretching and strengthening -antibiotic prior to dental work documented in this encounter Progress Notes * Lucio Greenfield PA - 01/14/2015 2:29 PM EDT Case Date: 11/11/2012 Surgeon: Carlos Delcid MD - Primary Procedure(s): @TOTAL KNEE REVISION ARTHROPLASTY, COMPLETE MODIFIER PFC & MBT REVISION DEPUY MODIFIER PFC STABILIZED FIXED MODULAR DEPUY HPI: 64 yo female returns 2 years from revision TKA; she alos has a right TKA which is 13 years old. She is doing well. No pain in the knees. No swelling. ROM and stabilty are not limiting. She did have a fall last night and injured her shoulder but is following up with her local shoulder provider who has previously operated on that shoulder PE: Ambulatory witout assist or antalgia. No effusion to either knee. No pain or laxity with varus and valgus stress. Excellent quad strength calves soft and nontender. X-rays: Bilateral TKA; stemmed implant on the left. The right knee shows PE wear without evidence of loosening or osteolysis. Assessment: S/P Bilateral TKA Plan: We discussed her knees and her x-rays. The PE wear is not unexpected. We reviewed symptoms ofwear. We'll see her again in 1 year, if she develops symptoms, CT scan would be indicated. documented in this encounter Plan of Treatment Upcoming Encounters Date Type Department Care Team (Late st Contact Info) Description 03/04/2024 12:00 PM EST Office Visit [place] [address] Jordyn Francisco MD [facility] [place] [address] documented as of this encounter Visit Diagnoses Diagnosis S/P TKR (total knee replacement) using cement, left- Primary documented in this encounter Care Teams Simonizer Relationship Specialty Start Date End Date Rowdy Al MD [address] [place] [address] [place] [address] PCP - General General Internal Medicine 01/14/1503/24 documented as of this encounter
--- OUTSIDE RECORDS SUMMARY | 2024-02-27 19:37 | XMS_ITS | Encounter Summary ---
Author Organization [facility] [place] [address] Care Team Providers Care Thermit Welding Machine Operator Name Role Phone Rashawn Bryant MD Primary Care Provider [phone] Encounter Details Date Type Department Care Team (Late st Contact Info) Description 10/02/2014 Orders [place] [phone] Carlos Delcid MD [facility] [place] [address] Aftercare following joint replacement Social History Tobacco Use Types Packs/Day [...] Office Visit [place] [phone] Jordyn Francisco MD [facility] [address] OBSTETRICS [place] [address] documented as of this encounter Results * XR knee diagnostic [...] Visit Diagnoses Diagnosis Aftercare following joint replacement Aftercare following joint replacement documented in this encounter Care Teams Thermit Welding Machine Operator Relationship Specialty Start Date End Date Rashawn Bryant MD [address] [place] [address] [place] [address] PCP - General 11/03/10 01/13/15 documented as of this encounter
--- OUTSIDE RECORDS SUMMARY | 2024-02-27 19:37 | XMS_ITS | Encounter Summary ---
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) Discharge Disposition: Home with VNA Social History [...] Sign Reading Time Taken Comments Blood Pressure 107/61 11/13/2012 9:45 AM EDT Pulse 56 11/13/2012 9:45 AM EDT Temperature 36.9 ??C (98.4 ??F) 11/13/2012 9:45 AM ED T Respiratory Rate 18 11/13/2012 9:45 AM EDT Oxygen Saturation 94% 11/13/2012 9:45 AM EDT Inhaled Oxygen Concentration - - Weight 114.3 kg (252 lb) 11/11/2012 11:22 AM EDT Height 157.5 cm (5' 2) 11/11/2012 11:22 AM EDT Body Mass Index 46.09 11/11/2012 11:22 AM EDT documented in this encounter Discharge Instructions * Discharge Instructions* Rafael Michele Bryan, LETI - 11/13/2012 11:31 AM EDT Activity: You are able to weight bearing as tolerated on your Left leg remembering to use a walker or crutches at all times for balance and protection. Flexion AND extension are important to work on at home. You should NOT place a pillow under your knee. To help with extension you can place a pillow under your heel or lower leg or placed lengthwise along the leg. Again DO NOT place a pillow underthe operated knee for comfort. You should wear the ANKUR hose to knee bilaterally until you are seen in followup. Remove these at least once per day to inspect your skin. Anti-coagulation follow up: You have been discharged on Rivaroxaban 10mg daily 12 days from surgery. On November 24, stop the Rivaroxaban and begin Aspirin 325mg twice a day for a total anticoagulation time of 6 weeks. On December 25, stop the Aspirin, unless you are told otherwise by your orthopedist. Diet: Resume usual diet, but increase your intake of fluids and fiber while you are on narcotic pain meds to prevent constipation Driving: No, not until you are cleared to do so by your Orthopedic surgeon. Ideally you should not drive if you are on narcotic pain meds as these can affect your judgement and reaction time. Call your surgeon with any questions. Medication: 1. The pain medication that you are using can cause constipation, so make sure you increase your intake of fluids and fiber while you are on them. You should also take the stool softener that was ordered, sennakot, to factilitate a bowel movement. An nsbi-ovc-uwehenc medication, miralax can also beused if needed to combat constipation 2. If you need a renewal on your narcotic pain medication, you need to give the Orthopedic clinic enough time to process your request. This can take up to three days, so plan accordingly. 3. You have been discharged on a short acting narcotic. You will be on this medication for a limited period of time only. 4. Continue the tylenol around the clock for the next 10 days - it can be effective in controlling pain along with your other medications. Shower: 1. You can shower but remember your activity limitations and always have a chair available for balance and protection. DO NOT submerge the dressing/incision. 2. (Mepilex) Do not let water run over the operative dressing. If it becomes wet lightly pat the dressing dry. When this operative dressing is removed you can let water gently run over the incision. DO NOT submerge the incision. 3. You have hamilton/sutures, so always cover them with a waterproof dressing or plastic bag when showering until they are removed. 4. After hamilton/sutures are removed you can let water run gently over the incision. Wound (Mepilex): 1. Sutures/hamilton: Staple/suture removal 11-14 days after surgery (approximately November 26). 2. Remove your operative dressing 7 days from your surgery (November 19). When it is removed you can leave the incision open to air or cover it with a light dressing. 3. If you have lots of drainage when you get home (and it is before November 19), remove this operative dressing and replace it with dry sterile gauze. Continue with daily dressing changes (and as needed) until the drainage stops, then remove the dressing and leave the incision open to air or lightly covered. FOLLOWUP APPOINTMENTS: You will have followup appointments at [facility] as indicated in Future Appointments and Orders. You will have an xray prior to those appointments so please come to Radiology, desk 3T, 1 hour BEFORE your appointment for those x-rays. documented in this encounter Medications at Time of Discharge Medication Sig Dispensed Refills Start Date End Date levalbuteroL (XOPENEX HFA) 45 mcg/actuation HFA Aerosol Inhaler Inhale 2 puffs into the lungs every 4 hours as needed. acetaminophen (TYLENOL) 500 mg tablet Take 2 tablets by mouth every 8 hours as needed for Pain. 11/13/2012 02/13/2013 OXYcodone (ROXICODONE) 5 mg immediate release tablet Take 1 tablet by mouth every 4 hours as needed for Pain (mild pain). 50 tablet 0 11/13/2012 11/25/2012 rivaroxaban (XARELTO) 10 mg Tab tablet Take 1 tablet by mouth daily. 10 tablet 0 11/13/2012 12/19/2012 senna-docusate (PERICOLACE) 8.6-50 mg per tablet Take 1-4 tablets by mouth 2 times daily. 60 tablet 0 11/13/2012 12/19/2012 verapamil (CALAN-SR) 240 mg CR tablet Take 240 mg by mouth nightly. 11/05/2020 fluticasone-salmeterol (ADVAIR) 500-50 mcg/dose diskus inhaler Inhale 1 puff into the lungs 2 times daily. 05/08/2023 cyclobenzaprine (FLEXERIL) 10 mg tablet Take 5 mg by mouth 3 times daily as needed. 01/26/2021 documented as of this encounter Progress Notes * Harman Mccormack RN - 11/13/2012 11:49 AM EDT Patient received discharge teaching regarding post-discharge medications, signs and symptoms of infection, wound care, and follow up appointments. Patient received a copy of the After Visit Summary and wound care supplies. At the time of discharge, patient reported that pain was controlled and denied nausea, shortness of breath, and dizziness. She was discharged to home with VNA support. A copy of the Discharge Summary and AVS were faxed to the VNA. * Asha Back, PT - 11/13/2012 11:28 AM EDT Physical Therapy Note Patient profile: POD # 2 s/p L tibial component TKA revision Interval History: Pt states that she had a bad evening with pain, but now its much better. Wants togo home and feels ready. Precautions/Special Considerations: WBAT left leg. Subjective: Is my walker the right height? Will you order TENS pads for me? Can I have a shoe horn and drafter marine? Objective: Seen this am for gait and review of ex's. Walker adjusted for her; she was given shoe horn and drafter marine; Pain: 5/10 Knee ROM: Extension in supine active: 0 degrees Flexion in sitting active: 90+ degrees Incision: dsg intact and dry. Exercises performed: QS, LAQ, knee flexion, ankle pumps. Functional mobility: Ind with sit to stand to the walker. Ind with bed mobility. Gait training included: pt walked about 40' with fww and supervision. She has an antalgic gait, butis able to wt bear through her left leg. Gait distance is limited by min knee pain and general deconditioning. Stairs: up and down 2 steps x3. She went up and down the steps with 2 rails and verbal instruction for which leg to lead with. She was instructed to go up one step backwards like she has at home using the walker and she was able to do it with supervision. This seemed to be the best option because her will not be able to help on the stairs much. She tried cane and 1 rail and she could not do it that way. Patient status, treatment, and mobility recommendations discussed with nursing. Assessment: Pt has met all PT goals with the exception of walking distance. She has excellent ROM and is able to walk 40', but tires quickly I think due to overall deconditioning.Her gait pattern is good using the walker. She should progress well at home with VNA PT Plan: D/c inpt PT Total time spent with patient: 30 minutes Total timed interventions: 30 minutes ASHA BACK, PT Pager: [phone] Physical Therapy Rehabilitation Department * Leslie Delcid MD - 11/13/2012 5:54 AM EDT ORTHOPAEDIC PROGRESS NOTE SURGERY/ISSUE: L TKA Revision of Loose Tibial Componet Patient Active Problem List Diagnoses Code ??? Impaired renal function 593.9 ??? Tibial compenent revision L knee (11/11/2012, Bhavin) V43.65 No past medical history on file. Interval History: Issues with pain overnight. Improved this AM. Denies CP/SOB/V. Up to chair yesterday. Tolerating PO. Temp: [36.4 ??C (97.5 ??F)-36.8 ??C (98.2 ??F)] Heart Rate: [83-115] Resp: [16-20] BP: (115-149)/(57-77) SpO2: [92 %-97 %] I/O last 3 completed shifts: In: 5484 [P.O.:1400; I.V.:4084] Out: 4825 [Urine:4165; Other:460; Blood:200] I/O this shift: In: 320 [P.O.:320] Out: 1200 [Urine:1200] PE: NAD RRR per palpation LLE Dressing C/D/I, alfredo changed SITLT in DP/SP/T Firing EHL/TA/GC Foot WWP Lab Results Component Value Date WBC 9.9 11/13/2012 RBC 3.26* 11/13/2012 HGB 10.2* 11/13/2012 HCT 31.5* 11/13/2012 PLATELET 224 11/13/2012 NA 138 11/13/2012 K 3.9 11/13/2012 CO2 27 11/13/2012 BUN 19* 11/13/2012 CREATININE 0.57* 11/13/2012 INR 1.0 10/29/2012 A/P: Stable. Continue to mobilize. ?? Activity: Weight-bearing as tolerated. ?? Pain Control: Switch to PO pain control ?? Antibiotics: 24 hrs ?? Anticoagulation: Riveroxaban ?? Drains: Removed ?? Dressing/Spints: Mepilex x 7 days, compressive dressing x 7 days (alfredo) for medial flap incision ?? Dispo: home vs rehab per PT ?? Follow up as scheduled I saw and evaluated the patient. I was integral in formulating the plan as outlined. Wants to go today but has not worked with PT for clearance yet today. LESLIE DELCID MD Future Appointments Date Time Provider Department Center 12/19/2012 1:30 PM Leslie Delcid MD [facility] 3D None * Ricardo Brownlee RN - 11/12/2012 2:02 PM EDT S: I was going to go out-pt for PT but I forgot about the hamilton so I guess I should have VNA fora few wks. O: Chart reviewed and met with pt who is lying in CC in NAD. Pt had Rev L TKA of tibial component yesterday by Dr Delcid. 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 Pt denies the need for in-pt rehab and feels she can manage at home with VNA. Pt [facility]. She will be on RIvaroxaban, SR in 10-14 days, and Home PT 3xwk. Pt has the dme she needs and is trying to find her 3 in 1 commode. A: Progressing toward d/c to home with VNA and family assist. P: Will follow, anticipate d/c tomorrow. * Anastasia Weston MD - 11/12/2012 9:11 AM EDT Regional Anesthesia Progress Note Date of Encounter: 11/12/2012 Provider: ANASTASIA WESTON MD Attending: MD Ravi ID: Patient is POD# 1 s/p L TKRA for which the patient received left femoral nerve block for post-operative pain control. Subjective: Today the patient has good pain control and at present states pain is 0 out of 10. Objective: Please see VS flowsheet Appears comfortable Sensory Exam: somewhat decreased sensation to cold Motor Exam: weak leg raise Block insertion site free of bruising, hematoma, or erythema Assessment: Peripheral nerve block for post-operative pain control, currently with good pain control. Block appears to be appropriately resolving. Plan and/or Recommendations: ?? Continue current pain regimen as ordered Will sign off; please contact Regional Anesthesia Team ([phone]) for any unresolved sensory or motor deficits or bleeding or bruising at site of block. Thank you for this consultation. ANASTASIA WESTON MD Regional team pager [phone] * Leslie Delcid MD - 11/12/2012 5:49 AM EDT ORTHOPAEDIC PROGRESS NOTE SURGERY/ISSUE: L TKA Revision of Loose Tibial Componet Patient Active Problem List Diagnoses Code ??? Impaired renal function 593.9 ??? Tibial compenent revision L knee (11/11/2012, Bhavin) V43.65 No past medical history on file. 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 Reports nausea with meal last night. Temp: [36.4 ??C (97.5 ??F)-36.7 ??C (98.1 ??F)] Heart Rate: [76-89] Resp: [13-18] BP: (94-135)/(45-74) SpO2: [96 %-100 %] I/O last 3 completed shifts: In: 2810 [I.V.:281] Out: 575 [Urine:215; Other:160; Blood:200] I/O this shift: In: - Out: 1999 [Urine:2000] PE: NAD RRR per auscultation CTAB LLE Dressing C/D/I, Drain removed this AM SITLT in DP/SP/T Firing EHL/TA/GC Foot WWP Lab Results Component Value Date WBC 14.8* 11/12/2012 RBC 3.44* 11/12/2012 HGB 10.8* 11/12/2012 HCT 32.7* 11/12/2012 PLATELET 215 11/12/2012 NA 134* 11/12/2012 K 4.4 11/12/2012 CO2 26 11/12/2012 BUN 15 11/12/2012 CREATININE 0.50* 11/12/2012 INR 1.0 10/29/2012 XRAYS: AP and lateral knee x-rays - s/p tibial revision, hardware well aligned, no signs of fx A/P: Stable. Mobilize. ?? Activity: Weight-bearing as tolerated. ?? Pain Control: Switch to PO pain control ?? Antibiotics: 24 hrs ?? Anticoagulation: Riveroxaban ?? Drains: Removed ?? Dressing/Spints: Mepilex x 7 days, compressive dressing x 7 days (alfredo) for medial flap incision ?? Islas: d/c today ?? Dispo: home vs rehab per PT ?? Follow up as scheduled I saw and evaluated the patient. I was integral in formulating the plan as outlined. LESLIE DELCID MD Future Appointments Date Time Provider Department Center 12/19/2012 1:30 PM Leslie Delcid MD [facility] 3D None * Annabel Kelley RN - 11/11/2012 11:24 PM EDT Pt stable throughout evening; did have some nausea but it passed without medication. Pain well controlled with AGRICULTURAL SERVICE WORKER Dilaudid. * Ally Gaxiola RN - 11/11/2012 6:56 PM EDT 1830: Pt arrived to [facility] and to [facility] s/p L TKR. Oriented to room and call anderson. Pt is A / O x 3. Denies N/V, SOB, CP. Educated on AGRICULTURAL SERVICE WORKER button and using button appropriately. L knee dsg C/D/I with alfredo wrap and cryo cuff in place. Good CSMT. Pt has moderate amt of sanguinous fluid collecting in Constavac. Constavac blood due to at 2100. Will continue to monitor. ALLY GAXIOLA RN. * Prasanth García MD - 11/11/2012 5:50 PM EDT Orthopaedic Surgery Post-Op Check Note Surgery: Left Revision TKA, complete Patient Active Problem List Diagnoses Date Noted ??? S/P TKR (total knee replacement) using cement 11/07/2010 ??? Impaired renal function 09/13/2010 S/Events: Denies CP, SOB, nausea, vomiting, abd pain. Pain well controlled. Patient received femoral nerve block on the left, single shot. O: Vitals: Temp: [36.4 ??C (97.5 ??F)-36.7 ??C (98.1 ??F)] Heart Rate: [77-89] Resp: [13-16] BP: (125-135)/(63-74) SpO2: [97 %-100 %] I/O this shift: In: 2811 [I.V.:2811] Out: 575 [Urine:215; Other:160; Blood:200] Exam: General: NAD, awake/alert Resp: Breathing comfortably Abd: S/NT/ND LLE: Dressing c/d/i. In cryocuff. Constavac attached and draining serosagnuinous fluid. Drain output approximately 225 cc. Motor intact to EHL, FHL, TA. Sensation intact in foot/calf. Brisk capillaryrefill distally. Labs: None new Radiology: X-ray, 2 views of the left knee, 11/11/2012 Interval revision of left total knee arthroplasty, long-stem tibial component and placement of cement material. No periprosthetic fracture. Soft tissue gas compatible with interval surgery and small amount of fluid likely within the suprapatellar pouch. Surgical drain in place. A/P: 62 y.o. year old female POD#0 s/p left revision TKA, complete, progressing well with stable vitals and uop. - Orders reviewed - continue all post-operative care documented in this encounter H&P Notes * Leslie Delcid MD - 11/11/2012 12:32 PM EDT The patient's history and physical exam have been reviewed and completed. There has been no interval change from that of the pre-operative history and physical exam done within the last 30 days. * Wai Golden - 11/11/2012 6:16 AM EDT Please see scanned H&P. documented in this encounter Procedure Notes * Provider, Scanning - 11/14/2012 11:14 AM EDTAssociated Order(s): SCAN DOC: LAB * Provider, Scanning - 11/14/2012 11:14 AM EDTAssociated Order(s): SCAN DOC: IMPLANTABLE DEVICES documented in this encounter Miscellaneous Notes * Plan of Care - Emperatriz Mendoza RN - 11/13/2012 1:36 AM EDT Problem: Pain, Acute (Adult, Obstetric) Goal: Acute Pain: Acceptable Pain Control/Comfort Level - Pain, Acute (Adult, Obstetric) Outcome: Therapy, goal partially met Patient tolerating oxycodone and scheduled tylenol for pain. Patient states pain is 5/10. Patient aware to alert RN if pain is not being controlled with current pain medication. RN will continue to monitor patient. Problem: Skin Integrity Impairment, Risk/Actual (Adult, Obstetric) Goal: Skin Integrity Impairment, Risk/Actual: Skin Integrity/Wound Healing Outcome: Absent and monitoring Patients skin to be intact at this time expect for operative incision. Patient repositions independently. RN will continue to monitor patients skin. Problem: Knee Replacement, Total (Adult) Goal: Prevent/Manage Potential Problems Based on my scope of practice, I assessed for signs and symptoms of potential problems that could be present as documented. Outcome: Absent and monitoring Pt has positive pulses bilaterally with good color, sensation, movement, and temperature in BLE. Ptmobilizes well with standby assistance to the chair. RN will continue to monitor, see doc flowsheets. * Discharge Summary - Michele Hall APRN - 11/12/2012 3:43 PM EDT Department of Orthopedic Medicine - Discharge Summary Patient Name: Stacy Knight Patient Age: 62 y.o. Birthdate: 1950 Admit date: 11/11/2012 Discharge date: .11/13/2012 Attending Physician: Leslie Delcid MD Discharge Diagnoses (Hospital Problems) and Secondary Diagnoses (Chronic Problems): Active Hospital Problems Diagnoses ??? Tibial compenent revision L knee (11/11/2012, Bhavin) Resolved Hospital Problems Diagnoses Date Resolved Active Non-Hospital Problems Diagnoses ??? Impaired renal function Operations/Major Procedures: 11/11/2012 Surgeon(s) and Role: * Leslie Delcid MD - Primary * Wai Golden MD Procedure: Left Tibial Component Revision Hospital Course: The patient was admitted via Same Day Surgery for the above operation. DVT prophylaxis: Rivaroxaban. Patient began rehab on POD#1 w/ weight bearing as tolerated of left leg remembering to use protection at all times for balance and protection. Drains were removed POD# 1. Islas was removed POD#1 and patient was voiding spontaneously. Wound inspected POD#2 and found to be benign. Patient did not have a bowel movement prior to discharge but was passing flatus and taking po withoutdifficulty . By POD#2 the patient was medically stable and was cleared for safe discharge to home. Important Studies and Lab Data: Labs: Lab Results Component Value Date HGB 10.2* 11/13/2012 HCT 31.5* 11/13/2012 Transfusions: No Discharge Conditions/Prognosis: Stable, awake, and alert. Mobilizing with walker, pain controlled on oral medications. Vital Signs: Last value Range last 24 hrs Temperature Temp: 36.9 ??C (98.4 ??F) Temp: [36.4 ??C (97.5 ??F)-36.9 ??C (98.4 ??F)] Heart Rate Heart Rate: 56 Heart Rate: [56-115] Blood Pressure BP: 107/61 mmHg BP: (107-149)/(57-77) Respiratory Rate Resp: 18 Resp: [16-20] SpO2 SpO2: 94 % SpO2: [92 %-97 %] Art BP BP (Arterial Line): -- Discharge to: Home Discharge Medications: Current Discharge Medication List New Meds Dose Details acetaminophen (TYLENOL) 500 mg tablet 1,000 mg Take 2 tablets by mouth every 8 hours as needed for Pain. OXYcodone (ROXICODONE) 5 mg immediate release tablet 5 mg Take 1 tablet by mouth every 4 hours as needed for Pain (mild pain). Qty: 50 tablet Refills: 0 rivaroxaban (XARELTO) 10 mg Tab tablet 10 mg Take 1 tablet by mouth daily. Qty: 10 tablet Refills: 0 senna-docusate (PERICOLACE) 8.6-50 mg per tablet 1-4 tablets Take 1-4 tablets by mouth 2 times daily. Qty: 60 tablet Refills: 0 Continued medications, unchanged Dose Details verapamil (CALAN-SR) 240 mg CR tablet 240 mg Take 240 mg by mouth every morning. fluticasone-salmeterol (ADVAIR) 500-50 mcg/dose diskus inhaler 1 puff Inhale 1 puff into the lungs 2 times daily. cyclobenzaprine (FLEXERIL) 10 mg tablet 10 mg Take 10 mg by mouth 3 times daily as needed. Levalbuterol Tartrate (XOPENEX HFA) 45 mcg/actuation inhaler 2 puffs Inhale 2 puffs into the lungs every 4 hours as needed. Medications STOPPED Dose UNABLE TO FIND 2 capsules emu oil, bulk, Oil Cranberry 1,000 mg Cap Vitamin E 300 unit Oil NAPROXEN ORAL 220 mg Updated Allergies/ADRs: Allergies Allergen Reactions ??? Isopropyl Alcohol Rash ??? Meperidine Hcl Other (See Comments) Very Loopy ??? Penicillins Other (See Comments) SWELLS UP ??? Propoxyphene Hcl Itching Instructions Given to Patient at Discharge: Provider Instructions None General Instructions Activity: You are able to weight bearing as tolerated on your Left leg remembering to use a walker or crutches at all times for balance and protection. Flexion AND extension are important to work on at home. You should NOT place a pillow under your knee. To help with extension you can place a pillow under your heel or lower leg or placed lengthwise along the leg. Again DO NOT place a pillow underthe operated knee for comfort. You should wear the ANKUR hose to knee bilaterally until you are seen in followup. Remove these at least once per day to inspect your skin. Anti-coagulation follow up: You have been discharged on Rivaroxaban 10mg daily 12 days from surgery. On November 24, stop the Rivaroxaban and begin Aspirin 325mg twice a day for a total anticoagulation time of 6 weeks. On December 25, stop the Aspirin, unless you are told otherwise by your orthopedist. Diet: Resume usual diet, but increase your intake of fluids and fiber while you are on narcotic pain meds to prevent constipation Driving: No, not until you are cleared to do so by your Orthopedic surgeon. Ideally you should not drive if you are on narcotic pain meds as these can affect your judgement and reaction time. Call your surgeon with any questions. Medication: 1. The pain medication that you are using can cause constipation, so make sure you increase your intake of fluids and fiber while you are on them. You should also take the stool softener that was ordered, sennakot, to factilitate a bowel movement. An txis-vsr-ljtxlab medication, miralax can also beused if needed to combat constipation 2. If you need a renewal on your narcotic pain medication, you need to give the Orthopedic clinic enough time to process your request. This can take up to three days, so plan accordingly. 3. You have been discharged on a short acting narcotic. You will be on this medication for a limited period of time only. 4. Continue the tylenol around the clock for the next 10 days - it can be effective in controlling pain along with your other medications. Shower: 1. You can shower but remember your activity limitations and always have a chair available for balance and protection. DO NOT submerge the dressing/incision. 2. (Mepilex) Do not let water run over the operative dressing. If it becomes wet lightly pat the dressing dry. When this operative dressing is removed you can let water gently run over the incision. DO NOT submerge the incision. 3. You have hamilton/sutures, so always cover them with a waterproof dressing or plastic bag when showering until they are removed. 4. After hamilton/sutures are removed you can let water run gently over the incision. Wound (Mepilex): 1. Sutures/hamilton: Staple/suture removal 11-14 days after surgery (approximately November 26). 2. Remove your operative dressing 7 days from your surgery (November 19). When it is removed you can leave the incision open to air or cover it with a light dressing. 3. If you have lots of drainage when you get home (and it is before November 19), remove this operative dressing and replace it with dry sterile gauze. Continue with daily dressing changes (and as needed) until the drainage stops, then remove the dressing and leave the incision open to air or lightly covered. FOLLOWUP APPOINTMENTS: You will have followup appointments at [facility] as indicated in Future Appointments and Orders. You will have an xray prior to those appointments so please come to Radiology, desk 3T, 1 hour BEFORE your appointment for those x-rays. Future Appointments and Orders Future Appointments: Provider: Department: Dept Phone: Center: 12/19/2012 1:30 PM Leslie Delcid MD Orthopaedics [phone] None Joint Appt Health Question [facility] [phone] None Future Orders Please Complete By Expires Tens unit [[id number] Custom] Process Instructions: Do not use this order if supplies are given in the office. Instead, use Charge Capture to document supplies and submit charge. Scheduling Instructions: Comments: Sticky pads for TENS unit Questions: Responses: Size requested: sticky pads only- 2 packs per month Vendor Name/Contact information: [employer] Referral to Home Health [[id number] CPT(R)] Process Instructions: Scheduling Instructions: Comments: [facility] PHONE: [phone] FAX: [phone] DISCHARGE DOCUMENTATION FOR VNA SERVICES (INCLUDING THOSE PATIENTS WITH MEDICARE COVERAGE BEING DISCHARGED HOME WITH VNA SERVICES AND THOSE PATIENTS WITH MEDICARE COVERAGE WHO ARE BEING DISCHARGED HOME WITH HOSPICE SERVICES) In discussion with the attending physician, it is certified that this patient is under their care and that they, or a nurse practitioner, clinical nurse specialist or physician's marketing administrative assistant who is working directly with them, had a face to face encounter that meets the physician face to face encounter requirements with this patient on 11/12/2012 The encounter with the patient was in whole, or in part, for the following medical condition, whichis the primary reason for home health care services: [ L TKA Rev ] In discussion with the primary medical team, it is certified that, based on their findings, the indicated services are medically necessary and appropriate for home health services. Home care orders for Total Knee Replacements for PT: 1. Pt will be on Rivaroxaban so no bld draws needed. 2. Suture or Staple removal in 14 days - approx November 26 3. Continue PT rehab for balance, endurance, joint mobility, ROM, Strength, TKA protocol Please note that any additional orders needs or changes will need to be obtained from this patient's PCP: DANITA BRYANT MD [address] [place] [address] [place] [address] All VNA agencies which cover the area of patient's residence have been reviewed, either verbally andrew writing, and patient/family have chosen the indicated home health care agency for home services. Questions: Responses: Agency name and contact information [facility] Patient location post discharge home What services are requested Start date Responsible MD post discharge contact info Primary Care Provider: DANITA BRYANT MD [phone] Joints: [phone] Electronically Signed by: MICHELE HALL APRN 11/13/2012 * Initial Assessments - Asha Back, PT - 11/12/2012 3:17 PM EDT PHYSICAL THERAPY Evaluation Patient is a [address] Delcid, admitted on 11/11/2012 with loosening of tibial componant L TKA resulting in pain and impaired function. revision was performed on day of admission. Referred to PT per pathway. Post op course significant for left quad weakness. PMH: s/p bilateral TKA's in the past. obesity Premorbid environment/level of function/service at home: Had been walking with crutches or a walker. Precautions: WBAT left leg. Objective: Pt was seen today for evaluation. Cardiovascular/labs: Hgb: 10.8 BP: 103/65 sitting some light headedness HR: 80 Subjective: I feel a little dizzy. Pulmonary: SpO2 (98%) on RA Behavior/Mental Status: very pleasant Pain/Tenderness: minimal knee pain, Skin & Soft Tissue: primary dsg intact Range of Motion: 0-85 degrees passively Strength: 2/5 left quad FNB effecting quad strength yes ( x), no ( ) Sensation: decreased anterior knee Exercises: Pt was given an exercise list and the following exercises were performed: ankle pumps, SAQ, QS, seated knee flexion and extension. 10 reps of each Mobility: Supine to sit: with min assist for left leg Sit to supine: nt Sit to stand: with mod assist and 1 person to guard left knee Stand to sit: with cues to use UE's Gait: Pt walked 3 feet with wheeled walker and assist of 2. Her left knee was buckling with wb.. Appliances/Equipment : has a walker at home Todays activity instructions: Pt was asked to: 1. Keep knees in extension when in bed with roll under ankle. 2. Ice PRN with cryocuff 3. Mobilize back to bed with nsg 4. Perform exercises 2x/day Assessment: Pt is POD #1 s/p Left TKA revision. Functional mobility is limited by left quad weakness s/p block. Feel that pt would benefit from ongoing PT for continued education and training in gait, ROM/strength ex's and functional mobility to acheive best post op outcome. Short Term Goals: (to be acheived by 11/13/12) 1. Independent with home exercise program 2. Ind to supervised with bed mobility 3. Ind to supervised with sit to stand using a device 4. ROM of operated knee from 5 to 80-90 degrees to allow for optimal functional mobility. 5. Ind ambulation at least 150' with device WBAT, left LE. 6. Up and down 1 stairs with rail and crutch. Treatment Plan: Frequency/Rx to Include: daily until d/c per pathway for TKA ex's, mobility, gait and pt education/d/c planning. Discharge needs were discussed with CRC and pt/family. Discharge Plan as discussed with pt at this time: home with her Patient/Caregiver Agrees with Goals/Rx Plan. Total Treatment Time: 35 for evaluation Total timed treatment: 0 ASHA BACK PT Pager Number: [phone] * Plan of Care - Leslie Campos RN - 11/12/2012 9:57 AM EDT Problem: Pain, Acute (Adult, Obstetric) Intervention: Acute Pain: Related Risk Factors Pain control is good with oxycodone cont to offer meds * Plan of Care - Leslie Campos RN - 11/12/2012 9:55 AM EDT Problem: Skin Integrity Impairment, Risk/Actual (Adult, Obstetric) Intervention: Skin Integrity Impairment, Risk/Actual: Related Risk Factors Patients skin to be intact at this time. Patient aware to reposition themselves every 2 hours. RN will monitor patients skin. * Op Note - Leslie Delcid MD - 11/11/2012 4:03 PM EDT [facility] Operative Note Patient Name: Stacy Knight : [id number] MR#: [id number] Case Date: 11/11/2012 Surgeon: Surgeon(s) and Role: * Leslie Delcid MD - Primary * Wai Golden MD Preoperative diagnosis: LEFT REV TKA Postoperative diagnosis: LEFT REV TKA Procedure(s): @TOTAL KNEE REVISION ARTHROPLASTY, COMPLETE MODIFIER PFC & MBT REVISION DEPUY MODIFIER PFC STABILIZED FIXED MODULAR DEPUY Anesthesia: General Estimated Blood Loss: 200mL Drains: Constavac Disposition: awakened from anesthesia, extubated and taken to the recovery room in a stable condition, having suffered no apparent untoward event. Condition: doing well without problems (Please see the Surgical Encounter Summary for any Implant and Specimen details pertinent to this patient.) Implant Name Type Inv. Item Serial No. Geospatial Applications Developer Lot No. LRB No. Used Action CEMENT,BNE,CMW 1,GNTA,40GM ([id number]) - [id number] IMPLANTS CEMENT,BNE,CMW 1,GNTA,40GM ([id number]) [employer] - [id number] Left 1 Implanted TRAY,TIB,MBT,REVSN,CMNT,SZ2.5 ([id number]) (AUTOREQ) - [id number] IMPLANTS TRAY,TIB,MBT,REVSN,CMNT,SZ2.5 ([id number]) (AUTOREQ) [employer] - [id number] Left 1 Implanted STEM,PFC,SGM,TIB,CMNT,[id number] ([id number]) (AUTOREQ) - [id number] IMPLANTS STEM,PFC,SGM,TIB,CMNT,[id number] ([id number]) (AUTOREQ) [employer] - 3527 [id number] Left 1 Implanted SLEEVE,FMRL,MBT,REVSN,[id number] ([id number]) (AUTOREQ) - [id number] IMPLANTS SLEEVE,FMRL,MBT,REVSN,[id number] ([id number]) (AUTOREQ) [employer] - 3527 [id number] Left 1 Implanted INSER,PFC,SGM,RP,STAB,SZ2.5,10 ([id number]) (AUTOREQ) - [id number] IMPLANTS INSER,PFC,SGM,RP,STAB,SZ2.5,10 ([id number]) (AUTOREQ) [employer] - 3527 [id number] Left 1 Implanted HPI/Surgical Indications: CLARIFICATION NEEDED: PLEASE FILL IN THE BLANK. DATE OF : 1950 ATTENDING PHYSICIAN: Leslie Delcid M.D. HISTORY OF PRESENT ILLNESS AND SURGICAL INDICATIONS: Stacy Knight is a 62-year-old female who is status post bilateral total knee arthroplasties performed approximately 10 years ago. The patient started to develop symptoms in her left knee a few years ago and has been followed by Dr. Delcid since. She presented with increasing pain and signs of loosening of her tibial component. After discussion with the patient with regards to treatment options, the patient elected to proceed with revision arthroplasty on the left. DESCRIPTION OF THE PROCEDURE: The patient was seen in the preoperative holding area where her ID was confirmed, her consent was reviewed, and her site was marked. She was then taken to the operating room where she was placed supine on operating room table. She underwent general anesthetic. All bony prominences were well padded. A time-out was performed per [facility] protocol and the team agreed to proceed with the procedure. I had a tourniquet placed around the thigh for the entirety of the case, which was 84 minutes. Her left lower extremity was then prepped and draped in the usual sterile fashion. Using her previous scar; however, she was outlined. An incision was followed with her previous flap. Dissection was carried down to the capsule and the quads split was performed to get into the joint. We did encounter some degree of increased synovial thickening. A standard medial peel was performed with electrocautery. A medial and lateral synovectomy was then performed, care being taken not to disrupt or injure the femoral and patellar components. Once the synovectomy was complete, we turned our attention to the tibia. The knee was flexed up and subluxed anteriorly. The polyethylene was removed with a small osteotome. On inspection, it was noted to have some wear both medially and laterally, however, a slightly greater than medially. The tibial components itself appeared to be loose with some movement. A Chisel was placed on the undersurface on the medial side and used to remove the bony implant interface. Once the implant was loose, a distractor device was placed and it was malleted out. She did not have a significant amount of bone loss. The tibial plateau was then prepped with curettes, rongeur, and pituitary to remove all remaining cement. The tibial canal was also cleaned up any remaining cement. Following this, the tibia was then reamed sequentially up to a size 14. Following the reaming, a proximal reamer was then placed to enlarge in the size of the canal. We then commenced with broaching. Once we had broached, we used the broach as a template to obtain our tibial cut. The cut was then made and on inspection appeared to be perpendicular to the broach that have been placed. The broach was then removed and a stem and a tibial component trial were then placed and malleted into the canal. A size 10 x 2.5 polyethylene insert was then placed and the knee was reduced and brought into full extension. It was found to be stable to both varus and valgus and the knee was at full extension at 30 degrees of flexion. The alignment appeared anatomic and the knee came into full extension. Following this, the implant trial components were removed and the knee was copiously irrigated. Once this was done, the cement was then placed on the tibial plateau. Care was taken to avoid getting any cement into the canal. The appropriate size implants were then placed and malleted down into the canal. All excess cement was removed. I should note that there was a large cyst in the posteromedial side of the tibia, which we had to clean out and there was a slight degree of bone loss that was filled with cement in this region. Once we had removed all the excess cement, the knee was then reduced and axial compression was maintained until the cement had curetted. The knee was then brought through full range of motion and still found to track well and to be stable. Following this, a drain was placed at the superolateral aspect of the knee and we had commenced with closure. The subcutaneous tissue was closed with 0 Vicryl at the corners to reapproximate the capsule followed by 2-0 running quill. Once this have been performed, the knee was again copiously irrigated and then commenced with closure of the skin. This was done with 0 and 3-0 Vicryl. The skin was closed with 3-0 nylon. At the end of the case, all counts were correct. There were no complications noted. Her wound was dressed with Mepilex, Kerlix, and [id number] Alfredo. She was awakened from anesthesia and transferred to her hospital bed and taken to the PACU in stable condition. At the end of the case, all counts were correct. There were no complications noted. I agree with the above documented procedure. Leslie Delcid MD * OR Attestation - Leslie Delcid MD - 11/11/2012 3:40 PM EDT Attestation: Case Date: 11/11/2012 I was present and I participated during the entire procedure (does not need to include opening and closing). LESLIE DELCID MD 11/11/2012 * Brief Op Note - Leslie Delcid MD - 11/11/2012 3:38 PM EDT Brief Operative Note Patient Name: Stacy Knight : [id number] MR#: [id number] Case Date: 11/11/2012 Surgeon: Surgeon(s) and Role: * Leslie Delcid MD - Primary * Wai Golden MD Preoperative diagnosis: LEFT REV TKA Postoperative diagnosis: LEFT REV TKA Procedure(s): @TOTAL KNEE REVISION ARTHROPLASTY, COMPLETE MODIFIER PFC & MBT REVISION DEPUY MODIFIER PFC STABILIZED FIXED MODULAR DEPUY Anesthesia: General Findings: LOOSE TIBIA, FEMUR WELL FIXED, PATELLA WELL FIXED BUT WITH WEAR Complications: NONE Fluids: 2000 CC CRYSTALLOID Estimated Blood Loss: 200 CC ISLAS: 100 CC Drains: CONSTAVAC PLAN: RIVOROXABAN, WBAT, X-RAY IN PACU Implant Name Type Inv. Item Serial No. Geospatial Applications Developer Lot No. LRB No. Used Action CEMENT,BNE,CMW 1,GNTA,40GM ([id number]) - [id number] IMPLANTS CEMENT,BNE,CMW 1,GNTA,40GM ([id number]) [employer] - 3527 [id number] Left 1 Implanted TRAY,TIB,MBT,REVSN,CMNT,SZ2.5 ([id number]) (AUTOREQ) - [id number] IMPLANTS TRAY,TIB,MBT,REVSN,CMNT,SZ2.5 ([id number]) (AUTOREQ) [employer] - 3527 [id number] Left 1 Implanted STEM,PFC,SGM,TIB,CMNT,[id number] ([id number]) (AUTOREQ) - [id number] IMPLANTS STEM,PFC,SGM,TIB,CMNT,[id number] ([id number]) (AUTOREQ) [employer] - 3527 [id number] Left 1 Implanted SLEEVE,FMRL,MBT,REVSN,[id number] ([id number]) (AUTOREQ) - [id number] IMPLANTS SLEEVE,FMRL,MBT,REVSN,[id number] ([id number]) (AUTOREQ) [employer] - 3527 [id number] Left 1 Implanted INSER,PFC,SGM,RP,STAB,SZ2.5,10 ([id number]) (AUTOREQ) - [id number] IMPLANTS INSER,PFC,SGM,RP,STAB,SZ2.5,10 ([id number]) (AUTOREQ) [employer] - 3527 [id number] Left 1 Implanted Disposition: awakened from anesthesia, extubated and taken to the recovery room in a stable condition, having suffered no apparent untoward event. Condition: doing well without problems (Please see the Surgical Encounter Summary for any Implant and Specimen details pertinent to this patient.) * Miscellaneous - Provider, Scanning - 11/11/2012 1:03 PM EDT documented in this encounter Plan of Treatment Upcoming Encounters Date Type Department Care Team (Late st Contact Info) Description 03/04/2024 12:00 PM EST Office Visit [place] [phone] Jordyn Francisco MD [facility] [address] [place] [address] documented as of this encounter Procedures Procedure Name Priority Date/Time Associated Diagnosis Comments LAB SCAN 11/14/2012 11:14 AM EDT IMPLANTABLE DEVICES SCAN 11/14/2012 11:14 AM EDT DIFFERENTIAL, AUTOMATED Routine 11/13/2012 4:08 AM EDT CBC (WITH DIFF) Routine 11/13/2012 4:08 AM EDT BASIC METABOLIC PANEL Routine 11/13/2012 4:08 AM EDT DIFFERENTIAL, AUTOMATED Routine 11/12/2012 3:38 AM EDT CBC (WITH DIFF) Routine 11/12/2012 3:38 AM EDT BASIC METABOLIC PANEL Routine 11/12/2012 3:38 AM EDT XR KNEE DIAGNOSTIC 1 OR 2 VIEW Routine 11/11/2012 4:59 PM EDT MODIFIER PFC STABILIZED FIXED MODULAR DEPUY 11/11/2012 12:39 PM EDT LEFT REV TKA MODIFIER PFC & MBT REVISION DEPUY (DELETED) 11/11/2012 12:39 PM EDT LEFT REV TKA @TOTAL KNEE REVISION ARTHROPLASTY, COMPLETE (WRVU 27.11) 11/11/2012 12:39 PM EDT LEFT REV TKA documented in this encounter Results * SCAN DOC: IMPLANTABLE DEVICES (11/14/2012 11:14 AM EDT) Narrative 11/14/2012 11:14 AM EDT Procedure Note Provider, Scanning - 11/14/2012 11:14 AM EDT Scanning Provider MEDIA MGR SCAN EXT O RDR/RSLT * SCAN DOC: LAB (11/14/2012 11:14 AM EDT) Narrative 11/14/2012 11:14 AM EDT Procedure Note Provider, Scanning - 11/14/2012 11:14 AM EDT Scanning Provider MEDIA MGR SCAN EXT O RDR/RSLT * (ABNORMAL) Differential, Automated (11/13/2012 4:08 AM EDT) Neutrophil % 65.2 34.0 - 71.0 % CERNER MILLENNIUM Neutrophil Absolute 6.47(H) 1.50 - 6.30 x10(3)/mc L CERNER MILLENNIUM Lymph % 25.2 19.0 - 53.0 % CERNER MILLENNIUM Lymphocytes Abs 2.5 1.0 - 3.6 x10(3)/mc L CERNER MILLENNIUM Monocyte % 9.0 4.0 - 13.0 % CERNER MILLENNIUM Monocyte Abs 0.9 0.2 - 1.0 x10(3)/mc L CERNER MILLENNIUM Eos % 0.2 0.0 - 7.0 % CERNER MILLENNIUM Eosinophils Abs 0.0 0.0 - 0.5 x10(3)/mc L CERNER MILLENNIUM Basophil % 0.1 0.0 - 2.0 % CERNER MILLENNIUM Baso Absolute 0.0 0.0 - 0.2 x10(3)/mc L CERNER MILLENNIUM Immature Gran % 0.30 0.00 - 0.66 % CERNER MILLENNIUM Comment: Immature granulocytes(IG's)percentage and absolute count will include metamyelocytes, myelocytes, and promyelocytes. Blood smears from CBCs yielding IG's will be scanned manually for concordance. If this scan disagrees with the automated IG or if promyelocytes are noted, a manual differential will be performed. Immature Gran Absolute 0.03 0.00 - 0.05 x10(3)/mc L CERNER MILLENNIUM Blood specimen (specimen) 11/13/2012 4:08 AM EDT 11/13/2012 4:20 AM EDT Leslie Delcid MD HEMATOLOGY ORDERABLE S CERNER BRIKAIUM * (ABNORMAL) Basic Metabolic Panel (non-fasting) (11/13/2012 4:08 AM EDT) Glucose 138 60 - 199 mg/dL CERNER MILLENNIUM Comment:Diabetes: >=200 mg/d L plus symptoms Blood Urea Nitrogen 19(H) 8 - 18 mg/dL CERNER MILLENNIUM Creatinine 0.57(L) 0.70 - 1.20 mg/dL CERNER MILLENNIUM Comment: Please note that the pediatric reference intervals supplied above were not validated at [facility]. Results from pediatric patients should be interpreted in conjunction to the patient's age, height and muscle mass. Sodium 138 135 - 145 mmol/L CERNER MILLENNIUM Potassium 3.9 3.5 - 5.0 mmol/L CERNER MILLENNIUM Comment: Please note: ??Patients with WBC >100,000 may have falsely elevated Potassium levels. ??For accurate Potassium quantification in these patients send serum separator tube (gold top) for subsequent determinations. ??Contact the Clinical Chemistry Laboratory if there are any questions. Chloride 101 98 - 107 mmol/L CERNER MILLENNIUM Carbon Dioxide 27 22 - 31 mmol/L CERNER MILLENNIUM Anion Gap 10 5 - 15 mmol/L CERNER MILLENNIUM Calcium 8.4(L) 8.5 - 10.5 mg/dL CERNER MILLENNIUM Est Glomerular Filtration Rate >60 >=60 CERNER MILLENNIUM Comment: This estimated GFR (eGFR) value was calculated using the MDRD equation which has been validated on patients between the ages of 18 and 70. The MDRD should not be used to assess kidney function in patients < 18 years of age or in patients with extremes of body mass, or in patients with acute kidney failure. This value should be multiplied by 1.2 for patients. For further information please copy and paste the following links into your internet browser. http://www.nkdep.nih.gov/lab-evaluation.shtml http://www.kidney.org/professionals/ Blood specimen (specimen) 11/13/2012 4:08 AM EDT 11/13/2012 4:20 AM EDT Narrative Resulting Agency Comment Spec In Lab Leslie Delcid MD CHEMISTRY ORDERABLES Performing Organization Address [facility] Co de Phone Number CERSUZETTE MILLENNIUM * (ABNORMAL) CBC (with Diff) (11/13/2012 4:08 AM EDT) White Blood Cell 9.9 4.0 - 10.0 x10(3)/mc L CERNER MILLENNIUM Red Blood Cell 3.26(L) 3.93 - 5.22 x10(6)/mc L CERNER MILLENNIUM Hemoglobin 10.2(L) 11.2 - 15.7 gm/dL CERNER MILLENNIUM Hematocrit 31.5(L) 34.0 - 45.0 % CERNER MILLENNIUM Mean Cell Volume 96.6(H) 79.0 - 94.0 fL CERNER MILLENNIUM Mean Cell Hemoglobin 31.3 26.6 - 32.2 pg CERNER MILLENNIUM Mean Cell Hemoglobin Concentration 32.4 32.0 - 36.5 gm/dL CERNER MILLENNIUM Platelet 224 145 - 370 x10(3)/mc L CERNER MILLENNIUM RDW Standard Deviation 49.0(H) 35.0 - 46.0 fL CERNER MILLENNIUM RDW coefficient of variation 14.0 10.9 - 14.4 % CERNER MILLENNIUM Mean Platelet Volume 10.8 9.0 - 12.0 fL CERNER MILLENNIUM Blood specimen (specimen) 11/13/2012 4:08 AM EDT 11/13/2012 4:20 AM EDT Narrative Resulting Agency Comment Spec In Lab Leslie Delcid MD HEMATOLOGY ORDERABLE S Performing Organization Address City/[facility]/ZIP Co de Phone Number CERSUZETTE PATELENNIUM * (ABNORMAL) Differential, Automated (11/12/2012 3:38 AM EDT) Neutrophil % 87.6(H) 34.0 - 71.0 % CERNER MILLENNIUM Neutrophil Absolute 12.98(H) 1.50 - 6.30 x10(3)/mc L CERNER MILLENNIUM Lymph % 7.8(L) 19.0 - 53.0 % CERNER MILLENNIUM Lymphocytes Abs 1.2 1.0 - 3.6 x10(3)/mc L CERNER MILLENNIUM Monocyte % 4.3 4.0 - 13.0 % CERNER MILLENNIUM Monocyte Abs 0.6 0.2 - 1.0 x10(3)/mc L CERNER MILLENNIUM Eos % 0.0 0.0 - 7.0 % CERNER MILLENNIUM Eosinophils Abs 0.0 0.0 - 0.5 x10(3)/mc L CERNER MILLENNIUM Basophil % 0.0 0.0 - 2.0 % CERNER MILLENNIUM Baso Absolute 0.0 0.0 - 0.2 x10(3)/mc L CERNER MILLENNIUM Immature Gran % 0.30 0.00 - 0.66 % CERNER MILLENNIUM Comment: Immature granulocytes(IG's)percentage and absolute count will include metamyelocytes, myelocytes, and promyelocytes. Blood smears from CBCs yielding IG's will be scanned manually for concordance. If this scan disagrees with the automated IG or if promyelocytes are noted, a manual differential will be performed. Immature Gran Absolute 0.04 0.00 - 0.05 x10(3)/mc L CERNER AMANDAENNIUM Blood specimen (specimen) 11/12/2012 3:38 AM EDT 11/12/2012 3:43 AM EDT Leslie Delcid MD HEMATOLOGY ORDERABLE S KEMI DIANE * (ABNORMAL) Basic Metabolic Panel (non-fasting) (11/12/2012 3:38 AM EDT) Glucose 155 60 - 199 mg/dL CERSUZETTE PATELENNIUM Comment:Diabetes: >=200 mg/d L plus symptoms Blood Urea Nitrogen 15 8 - 18 mg/dL CERNER MILLENNIUM Creatinine 0.50(L) 0.70 - 1.20 mg/dL CERNER MILLENNIUM Comment: Please note that the pediatric reference intervals supplied above were not validated at [facility]. Results from pediatric patients should be interpreted in conjunction to the patient's age, height and muscle mass. Sodium 134(L) 135 - 145 mmol/L CERNER MILLENNIUM Potassium 4.4 3.5 - 5.0 mmol/L CERNER MILLENNIUM Comment: Please note: ??Patients with WBC >100,000 may have falsely elevated Potassium levels. ??For accurate Potassium quantification in these patients send serum separator tube (gold top) for subsequent determinations. ??Contact the Clinical Chemistry Laboratory if there are any questions. Chloride 99 98 - 107 mmol/L CERNER MILLENNIUM Carbon Dioxide 26 22 - 31 mmol/L CERNER MILLENNIUM Anion Gap 9 5 - 15 mmol/L CERNER MILLENNIUM Calcium 8.2(L) 8.5 - 10.5 mg/dL CERNER MILLENNIUM Est Glomerular Filtration Rate >60 >=60 CERNER MILLENNIUM Comment: This estimated GFR (eGFR) value was calculated using the MDRD equation which has been validated on patients between the ages of 18 and 70. The MDRD should not be used to assess kidney function in patients < 18 years of age or in patients with extremes of body mass, or in patients with acute kidney failure. This value should be multiplied by 1.2 for patients. For further information please copy and paste the following links into your internet browser. http://www.nkdep.nih.gov/lab-evaluation.shtml http://www.kidney.org/professionals/ Blood specimen (specimen) 11/12/2012 3:38 AM EDT 11/12/2012 3:43 AM EDT Narrative Resulting Agency Comment Spec In Lab Leslie Delcid MD CHEMISTRY ORDERABLES CERSUZETTE DIANE * (ABNORMAL) CBC (with Diff) (11/12/2012 3:38 AM EDT) White Blood Cell 14.8(H) 4.0 - 10.0 x10(3)/mc L CERNER MILLENNIUM Red Blood Cell 3.44(L) 3.93 - 5.22 x10(6)/mc L CERNER MILLENNIUM Hemoglobin 10.8(L) 11.2 - 15.7 gm/dL CERNER MILLENNIUM Hematocrit 32.7(L) 34.0 - 45.0 % CERNER MILLENNIUM Mean Cell Volume 95.1(H) 79.0 - 94.0 fL CERNER MILLENNIUM Mean Cell Hemoglobin 31.4 26.6 - 32.2 pg CERNER MILLENNIUM Mean Cell Hemoglobin Concentration 33.0 32.0 - 36.5 gm/dL CERNER MILLENNIUM Platelet 215 145 - 370 x10(3)/mc L CERNER MILLENNIUM RDW Standard Deviation 47.0(H) 35.0 - 46.0 fL CERNER MILLENNIUM RDW coefficient of variation 13.5 10.9 - 14.4 % CERNER MILLENNIUM Mean Platelet Volume 10.5 9.0 - 12.0 fL CERNER MILLENNIUM Blood specimen (specimen) 11/12/2012 3:38 AM EDT 11/12/2012 3:43 AM EDT Narrative Resulting Agency Comment Spec In Lab Leslie Delcid MD HEMATOLOGY ORDERABLE S KEMI ANDERSONIUM * XR knee diagnostic 1 or 2 view (11/11/2012 4:59 PM EDT) Anatomical Region Laterality Modality Knee N/A Radiographic Susan ging 11/11/2012 4:59 PM EDT Narrative 11/11/2012 5:30 PM EDT Examination KNEE 1 OR 2 VIEWS/LEFT/XPORT Clinical History s/p revision tibial components Comparison 05/23/2012. Technique 2 portable views left knee. Findings Interval revision of left total knee arthroplasty long-stem tibial component and placement of cement material. ??No periprosthetic fracture. ??Soft tissue gas compatible with interval surgery and small amount of fluid likely within the suprapatellar pouch. ??Surgical drain is in place. Impression No periprosthetic fracture status post left knee revision arthroplasty. Procedure Note Steven Reich MD - 11/11/2012 Examination KNEE 1 OR 2 VIEWS/LEFT/XPORT Clinical History s/p revision tibial components Comparison 05/23/2012. Technique 2 portable views left knee. Findings Interval revision of left total knee arthroplasty long-stem tibialcomponent and placement of cement material. No periprosthetic fracture. Softtissue gas compatible with interval surgery and small amount of fluid likely withinthe suprapatellar pouch. Surgical drain is in place. Impression No periprosthetic fracture status post left knee revision arthroplasty. Leslie Delcid MD IMG DX ORDERABLES documented in this encounter Visit Diagnoses Diagnosis Tibial compenent revision L knee (11/11/2012, Bhavin)- Primary Knee joint replacement by other means DJD (degenerative joint disease) of knee Osteoarthrosis, unspecified whether generalized or localized, lower leg documented in this encounter Administered Medications Inactive Administered Medications - up to 3 most recent administrations Medication Order MAR Action Action Date Dose Rate Site acetaminophen (TYLENOL) tablet 1,000 mg 1,000 mg, Oral, EVERY 8 HOURS SCHEDULED, First dose on Sun11/11/12 at 2200, Until Discontinued, Maximum dose of acetaminophen is 4000 mg from all sources in 24 hours., Routine Given 11/13/2012 5:56 AM EDT 1,000 mg Given 11/12/2012 9:47 PM EDT 1,000 mg Given 11/12/2012 2:00 PM EDT 1,000 mg cyclobenzaprine (FLEXERIL) tablet 10 mg 10 mg, Oral, 3 TIMES DAILY PRN, Starting on Sun11/11/12 at 1844, Until Sun11/13/12 at 1510, Muscle spasms, Routine Given 11/13/2012 6:22 AM EDT 10 mg Given 11/12/2012 6:20 PM EDT 10 mg fluticasone-salmeterol (ADVAIR HFA) 115-21 mcg/actuation inhaler 2 puff 2 puff, Inhalation, EVERY 12 HOURS SCHEDULED (2 times per day), First dose on Sun11/11/12 at 2100, Until Discontinued, Rinse mouth after administration Given 11/13/2012 9:00 AM EDT 2 puffs Given 11/12/2012 8:10 PM EDT 2 puffs Given 11/12/2012 9:00 AM EDT 2 puffs HYDROmorphone (DILAUDID) 1 mg/mL AGRICULTURAL SERVICE WORKER 30 mL Intravenous, AGRICULTURAL SERVICE WORKER ONLY, Starting on Sun11/11/12 at 1630, Until Sun11/12/12 at 1530 New Syringe/Cartridge 11/11/2012 4:20 PM EDT [facility] [address]-63 Caplet 2 tablet, Misc.(Non-Drug; Combo Route), EVERY EVENING, First dose on Sun11/12/12 at 2100, Until Discontinued, Patient OWN [facility] [place] [address]-75 Caplet. Given 11/12/2012 8:08 PM EDT 2 tablets lactated ringers infusion 1,000 mL 1,000 mL, at 100 mL/hr, Intravenous, CONTINUOUS, Starting on Sun11/11/12 at 1630, Until Sun11/12/12 at 1530 New Bag 11/11/2012 4:20 PM EDT 1,000 mLs 100 mL/hr multivitamin Wjdm-Kd-SP-Min (THERAPEUTIC-M) 27-0.4 mg tablet 1 tablet 1 tablet, Oral, DAILY, First dose on Sun11/11/12 at 2000, Until Discontinued Given 11/13/2012 9:00 AM EDT 1 tablet Given 11/12/2012 8:17 AM EDT 1 tablet Given 11/11/2012 9:08 PM EDT 1 tablet OXYcodone (ROXICODONE) immediate release tablet 10 mg 10 mg, Oral, EVERY 4 HOURS PRN, Starting on Sun11/11/12 at 1608, Until Sun11/13/12 at 1510, Pain, moderate pain, For Moderate pain. Do not exceed 15 mg in 4 hours. If pain not relieved, call provider., Routine Given 11/13/2012 2:48 AM EDT 10 mg Given 11/12/2012 7:08 PM EDT 10 mg OXYcodone (ROXICODONE) immediate release tablet 5 mg 5 mg, Oral, EVERY 4 HOURS PRN, Starting on Sun11/11/12 at 1608, Until Sun11/13/12 at 1510, Pain, mild pain, For Mild pain. Do not exceed 15 mg in 4 hours. If pain not relieved, call provider, Routine Given 11/12/2012 8:06 PM EDT 5 mg rivaroxaban (XARELTO) tablet 10 mg 10 mg, Oral, DAILY, First dose on Sun11/12/12 at 0900, Until Discontinued, Routine, Restricted anticoagulant, choose the most appropriate response: Approved indication of knee replacement DVT prophylaxis Given 11/13/2012 9:00 AM EDT 10 mg Given 11/12/2012 8:18 AM EDT 10 mg senna-docusate (PERICOLACE) 8.6-50 mg per tablet 1-4 tablet 1-4 tablet, Oral, 2 TIMES DAILY, First dose on Sun11/11/12 at 2100, Until Discontinued, Start with 1 tablet or liquid equivalent orally twice daily and titrate up to achieve: 1. One bowel movement at least every 48 hours, AND 2. Without straining, Routine Given 11/13/2012 9:00 AM EDT 2 tablets Given 11/12/2012 8:07 PM EDT 2 tablets Given 11/12/2012 9:00 AM EDT 2 tablets sodium chloride 0.9 % flush 5 mL 5 mL, Intravenous, EVERY 12 HOURS, First dose on Sun11/11/12 at 1630, Until Discontinued Given 11/13/2012 4:30 AM EDT 5 mLs Given 11/12/2012 4:21 PM EDT 5 mLs Given 11/12/2012 4:30 AM EDT 5 mLs vancomycin 1 g in dextrose 5% 200 mL 1,000 mg (1 g), Intravenous, ONCE, 1 dose, On Sun11/11/12 at 1130, This medication may have an associated drug lab level. Please check for lab orders, Day of Surgery (Day of Procedure), Routine, Indication for (Active or Suspected): Prophylaxis Given 11/11/2012 12:33 PM EDT 1,000 mg vancomycin 1 g in dextrose 5% 200 mL 1,000 mg (1 g), Intravenous, EVERY 12 HOURS, 2 doses, First dose on Sun11/11/12 at 1630, Last dose on Sun11/12/12 at 0430, 15 mg/kg/dose for 2 doses postoperatively. Adjust to 12 hours from intraoperative dose., Routine, Indication for (Active or Suspected): Prophylaxis Given 11/12/2012 12:00 PM EDT 1,000 mg Given 11/12/2012 12:00 AM EDT 1,000 mg verapamil (CALAN-SR) CR tablet 240 mg 240 mg, Oral, EVERY MORNING, First dose on Sun11/12/12 at 0700, Until Discontinued, Routine Given 11/13/2012 6:19 AM EDT 240 mg Given 11/12/2012 7:00 AM EDT 240 mg documented in this encounter Active and Recently Administered Medications Times are shown in EDT. Scheduled Medication Order 11/11/2012 11/12/2012 11/13/2012 acetaminophen (TYLENOL) tablet 1,000 mg 1,000 mg, Oral, EVERY 8 HOURS SCHEDULED, First dose on Sun11/11/12 at 2200, Until Discontinued, Maximum dose of acetaminophen is 4000 mg from all sources in 24 hours., Routine 2107 (Given - Provider: Annabel Kelley, KATINA) 0600 (Given - Provider: Mckayla Artis RN)1400 (Given - Provider: Leslie Campos, KATINA)214 (Given - Provider: Emperatriz Mendoza, KATINA) 0556 (Given - Provider: Emperatriz Mendoza, RN) fluticasone-salmeterol (ADVAIR HFA) 115-21 mcg/actuation inhaler 2 puff (CANCELED) 2 puff, Inhalation, EVERY 12 HOURS SCHEDULED (2 times per day), First dose on Sun11/11/12 at 2100, Until Discontinued, Rinse mouth after administration 2100 (Given - Provider: Annabel Kelley, KATINA) 0900 (Given - Provider: Leslie Campos, KATINA)2009 (Given - Provider: Emperatriz Mendoza, KATINA) 0900 (Given - Provider: Harman Mccormack RN) [facility] [place] [address]-50 Caplet (CANCELED) 2 tablet, Misc.(Non-Drug; Combo Route), EVERY EVENING, First dose on Sun11/12/12 at 2100, Until Discontinued, [place] [address]-26 Caplet. 2007 (Given - Provider: Emperatriz Mendoza, KATINA) multivitamin Nmqq-Wj-WN-Min (THERAPEUTIC-M) 27-0.4 mg tablet 1 tablet (CANCELED) 1 tablet, Oral, DAILY, First dose on Sun11/11/12 at 2000, Until Discontinued 2107 (Given - Provider: Annabel Kelley RN) 0817 (Given - Provider: Leslie Campos RN) 09 (Given - Provider: Harman Mccormack, KATINA) rivaroxaban (XARELTO) tablet 10 mg 10 mg, Oral, DAILY, First dose on Sun11/12/12 at 0900, Until Discontinued, Routine, Restricted anticoagulant, choose the most appropriate response: Approved indication of knee replacement DVT prophylaxis 0818 (Given - Provider: Leslie Campos RN) 09 (Given - Provider: Harman Mccormack RN) senna-docusate (PERICOLACE) 8.6-50 mg per tablet 1-4 tablet 1-4 tablet, Oral, 2 TIMES DAILY, First dose on Sun11/11/12 at 2100, Until Discontinued, Start with 1 tablet or liquid equivalent orally twice daily and titrate up to achieve: 1. One bowel movement at least every 48 hours, AND 2. Without straining, Routine 2100 (Not Given - Provider: Annabel Kelley RN - Reason: Patient/family refused) 09 (Given - Provider: Leslie Campos RN)2006 (Given - Provider: Emperatriz Mendoza RN) 09 (Given - Provider: Harman Mccormack RN) sodium chloride 0.9 % flush 5 mL (CANCELED) 5 mL, Intravenous, EVERY 12 HOURS, First dose on Sun11/11/12 at 1630, Until Discontinued 1630 (Given - Provider: Lelo Gimenez RN) 043 (Given - Provider: Mckayla Artis RN)1621 (Given - Provider: Sheridan Farris RN) 0430 (Given - Provider: Emperatriz Mendoza RN) vancomycin 1 g in dextrose 5% 200 mL (COMPLETED) 1,000 mg (1 g), Intravenous, ONCE, 1 dose, On Sun11/11/12 at 1130, This medication may have an associated drug lab level. Please check for lab orders, Day of Surgery (Day of Procedure), Routine, Indication for (Active or Suspected): Prophylaxis 1130 (Due)1233 (Given - Provider: Brooklyn Camarena RN) vancomycin 1 g in dextrose 5% 200 mL (COMPLETED) 1,000 mg (1 g), Intravenous, EVERY 12 HOURS, 2 doses, First dose on Sun11/11/12 at 1630, Last dose on Sun11/12/12 at 0430, 15 mg/kg/dose for 2 doses postoperatively. Adjust to 12 hours from intraoperative dose., Routine, Indication for (Active or Suspected): Prophylaxis 0000 (Given - Provider: Mckayla Artis RN)0100 (Not Given - Provider: Mckayla Artis RN - Reason: See comment - Comment: Given at 0000.)1200 (Given - Provider: Leslie Campos RN) verapamil (CALAN-SR) CR tablet 240 mg (CANCELED) 240 mg, Oral, EVERY MORNING, First dose on Sun11/12/12 at 0700, Until Discontinued, Routine 0700 (Given - Provider: Leslie Campos RN) 0619 (Given - Provider: Emperatriz Mendoza, KATINA) Continuous Medication Order 11/11/2012 11/12/2012 11/13/2012 HYDROmorphone (DILAUDID) 1 mg/mL AGRIC[employer]URAL SERVICE WORKER 30 mL (CANCELED) Intravenous, AGRICULTURAL SERVICE WORKER ONLY, Starting on Sun11/11/12 at 1630, Until Sun11/12/12 at 1530 1620 (New Syringe/Cartridge - Provider: Lelo Gimenez RN) lactated ringers infusion 1,000 mL (CANCELED) 1,000 mL, at 100 mL/hr, Intravenous, CONTINUOUS, Starting on Sun11/11/12 at 1630, Until Sun11/12/12 at 1530 1620 (New Bag - Provider: Lelo Gimenez, KATINA) 0800 (Stopped - Provider: Leslie Campos RN) PRN Medication Order 11/11/2012 11/12/2012 11/13/2012 cyclobenzaprine (FLEXERIL) tablet 10 mg (CANCELED) 10 mg, Oral, 3 TIMES DAILY PRN, Starting on Sun11/11/12 at 1844, Until Sun11/13/12 at 1510, Muscle spasms, Routine 1820 (Given - Provider: Sheridan Farris RN) 0622 (Given - Provider: Emperatriz Mendoza, KATINA) OXYcodone (ROXICODONE) immediate release tablet 10 mg (CANCELED)(Linked Group 1) 10 mg, Oral, EVERY 4 HOURS PRN, Starting on Sun11/11/12 at 1608, Until Sun11/13/12 at 1510, Pain, moderate pain, For Moderate pain. Do not exceed 15 mg in 4 hours. If pain not relieved, call provider., Routine 1907 (Given - Provider: hSeridan Farris RN)2005 (See Alternative - Provider: Emperatriz Mendoza RN) 247 (Given - Provider: Emperatriz Mendoza RN) OXYcodone (ROXICODONE) immediate release tablet 5 mg(Linked Group 1) 5 mg, Oral, EVERY 4 HOURS PRN, Starting on Sun11/11/12 at 1608, Until Sun11/13/12 at 1510, Pain, mild pain, For Mild pain. Do not exceed 15 mg in 4 hours. If pain not relieved, call provider, Routine 1907 (See Alternative - Provider: Sheridan Farris RN)2005 (Given - Provider: Emperatriz Mendoza RN) 247 (See Alternative - Provider: Emperatriz Mendoza RN) Linked Groups Order Group 1: OXYcodone (ROXICODONE) immediate release tablet 5 mgJump to med 5 mg, Oral, EVERY 4 HOURS PRN, Starting on Sun11/11/12 at 1608, Until Sun11/13/12 at 1510, Pain, mild pain, For Mild pain. Do not exceed 15 mg in 4 hours. If pain not relieved, call provider, Routine Or OXYcodone (ROXICODONE) immediate release tablet 10 mg (CANCELED)Jump to med 10 mg, Oral, EVERY 4 HOURS PRN, Starting on Sun11/11/12 at 1608, Until Sun11/13/12 at 1510, Pain, moderate pain, For Moderate pain. Do not exceed 15 mg in 4 hours. If pain not relieved, call provider., Routine Or OXYcodone (ROXICODONE) immediate release tablet 15 mg (CANCELED) 15 mg, Oral, EVERY 4 HOURS PRN, Starting on Sun11/11/12 at 1608, Until Sun11/13/12 at 1510, Pain, severe pain, For severe pain. Do not exceed 15 mg in 4 hours. If pain not relieved, call provider., Routine documented in this encounter Care Teams International Operations Manager Relationship Specialty Start Date End Date Danita Bryant MD [address] [place] [address] [place] [address] PCP - General 11/03/10 01/13/15 documented as of this encounter
--- OUTSIDE RECORDS SUMMARY | 2024-02-27 19:37 | XMS_ITS | Encounter Summary ---
Author Organization [facility] [place] [address] Care Team Providers Care Butadiene Converter Operator Name Role Phone Rashawn Bryant MD Primary Care Provider [phone] Encounter Details Date Type Department Care Team (Late st Contact Info) Description 11/24/2013 Telephone [place] [id number] Carlos Delcid MD [facility] [place] [address] Social History Tobacco Use Types Packs/Day Years [...] encounter Miscellaneous Notes * Telephone Encounter - FondaNannette archer Bryan - 11/24/2013 10:48 AM EDT I would like you to sign up for myD-H, which will give you secure online access to your electronic medical record at [facility] and the ability to communicate with your health care team whenand where it???s most convenient for you. With myD-H you will be able to: - look at parts of your medical record including test results and office notes - send and receive messages to/from me and your other providers - renew prescriptions - schedule appointments. To sign up, go to [email or web address] and click I have an activation code and follow the instructions. Here is your activation code: Not generated Current myD-H Status: Active Remember, myD-H is NOT for urgent needs! Always dial 911 for medical emergencies. documented in this encounter Plan of Treatment Upcoming Encounters Date Type Department Care Team (Late st Contact Info) Description 03/04/2024 12:00 PM EST Office Visit [place] [phone] Jordyn Francisco MD [facility] OBSTETRICS [place] [address] documented as of this encounter Visit Diagnoses Not on filedocumented in this encounter Care Teams Butadiene Converter Operator Relationship Specialty Start Date End Date Rashawn Bryant MD [address] [place] [address] [place] [id number] PCP - General 11/03/10 01/13/15 documented as of this encounter
--- OUTSIDE RECORDS SUMMARY | 2024-02-27 19:37 | XMS_ITS | Encounter Summary ---
Author Organization [facility] Address [facility] [place] [address] Care Team Providers Care Glass Beveler Name Role Phone Rashawn Bryant MD Primary Care Provider [phone] Encounter Details Date Type Department Care Team (Latest Contact Info) Description 10/29/2012 12:36 PM EDT - 10/29/2012 11:59 PM EDT [place] [address] Carlos Delcid MD [facility] [place] [address] DJD (degenerative joint disease) of knee Discharge Disposition: Home Social History Tobacco [...] times daily. 60 tablet 0 11/13/2012 12/19/2012 UNABLE TO FIND 2 capsules nightly. Med Name: 11/13/2012 verapamil (CALAN-SR) 240 mg CR tablet Take 240 mg by mouth nightly. 11/05/2020 emu oil, bulk, Oil by [facility].(Non-Drug; Combo Route) route. Uses this when not using vitamin e 11/13/2012 fluticasone-salmeterol (ADVAIR) 500-50 mcg/dose diskus inhaler Inhale 1 puff into the lungs 2 times daily. 05/08/2023 cyclobenzaprine (FLEXERIL) 10 mg tablet Take 5 mg by mouth 3 times daily as needed. 01/26/2021 Cranberry 1,000 mg Cap Take by mouth. 10/2012 Vitamin E 300 unit Oil Apply topically. 0 11/13/2012 NAPROXEN ORAL Take 220 mg by mouth 2 times daily. 09/13/2010 11/13/2012 documented as of this encounter Plan of Treatment Upcoming Encounters Date Type Department Care Team (Late st Contact Info) Description 03/04/2024 12:00 PM EST Office Visit Gyne[place] [address] Jordyn Francisco MD [facility] OBSTETRICS [place] [address] documented as of this encounter Procedures Procedure Name Priority Date/Time Associated Diagnosis Comments URINALYSIS WITH REFLEX CULTURE Routine 10/29/2012 12:59 PM EDT DJD (degenerative joint disease) of knee URINE CULTURE Routine 10/29/2012 12:59 PM EDT DJD (degenerative joint disease) of knee DIFFERENTIAL, AUTOMATED Routine 10/29/2012 12:56 PM EDT TYPE AND SCREEN, SDP (FUTURE SURGERY, [facility] [place] ONLY) Routine 10/29/2012 12:56 PM EDT DJD (degenerative joint disease) of knee ABO/RH TYPING Routine 10/29/2012 12:56 PM EDT DJD (degenerative joint disease) of knee PROTHROMBIN TIME Routine 10/29/2012 12:5 6 PM EDT DJD (degenerative joint disease) of knee CBC (WITH DIFF) Routine 10/29/2012 12:56 PM EDT DJD (degenerative joint disease) of knee ANTIBODY SCREEN Routine 10/29/2012 12:56 PM EDT DJD (degenerative joint disease) of knee BASIC METABOLIC PANEL Routine 10/29/2012 12:56 PM EDT DJD (degenerative joint disease) of knee documented in this encounter Results * Urine culture Clean Catch Urine (10/29/2012 12:59 PM EDT) Urine Culture ? Patient Name: SURYA KNIGHT ? Ordered By: CARLOS DELCID ? MR#: [id number] ?LOC: ??4V ? /Sex: ??1950 (62 years), ? Female ? PROCEDURE: Urine Culture ?SOURCE: U CC ? COLLECTED: 10/29/2012 12:59 ? STARTED: 10/29/2012 13:13 ? FINAL REPORT ? Final Report ? Verified: 013 07:32 ? 50,000-99,000 cfu/ml mixed mucosal sade ? Note: Multiple bacterial morphotypes present. Suggest appropriate ? recollection with timely delivery to ? the laboratory, if clinically significant. ? CERNER MILLENNIUM Urine specimen obtained by clean catch procedure (specimen) 10/29/2012 12:59 PM EDT 10/29/2012 1:12 PM EDT Narrative Resulting Agency Comment Spec In Lab Carlos Delcid MD MICROBIOLOGY - GENER AL ORDERABLES CERNER MILLENNIUM * (ABNORMAL) Urinalysis with microscopic (10/29/2012 12:59 PM EDT) Glucose, Urine Dipstick Negative Negative mg/dL CERNER MILLENNIUM Protein, Urine Dipstick Negative mg/dL CERNER MILLENNIUM Bilirubin, Urine Dipstick Negative Negative mg/dL CERNER MILLENNIUM Urobilinogen, Urine Dipstick Normal mg/dL CERNER MILLENNIUM pH, Urn (dipstick) 5.5 5.0 - 8.0 CERNER MILLENNIUM Blood, Urine Dipstick Negative mg/dL CERNER MILLENNIUM Ketone, Urine Dipstick Negative mg/dL CERNER MILLENNIUM Nitrite, Urine Dipstick Negative CERNER MILLENNIUM Leukocytes, Urine Dipstick Negative mcL CERNER MILLENNIUM Appearance, Urine Dipstick Clear Clear CERNER MILLENNIUM Specific Kendrick Urine Automated 1.016 1.002 - 1.030 CERNER MILLENNIUM Color, Urine Dipstick Yellow Yellow CERNER MILLENNIUM RBC, Urine Not Present 0 - 4 CERNER MILLENNIUM WBC, Urine Not Present 0 - 5 CERNER MILLENNIUM Bacteria, Urine Rare(A) None /HPF CERNER MILLENNIUM Squamous Epithelial Cells, Urine 1 <=4 /HPF CERNER MILLENNIUM Urine specimen (specimen) 10/29/2012 12:59 PM EDT 10/29/2012 1:07 PM EDT Narrative Resulting Agency Comment Spec In Lab Carlos Delcid MD URINE ORDERABLES CERNER MILLENNIUM * Differential, Automated (10/29/2012 12:56 PM EDT) Neutrophil % 68.9 34.0 - 71.0 % CERNER MILLENNIUM Neutrophil Absolute 4.76 1.50 - 6.30 x10(3)/mcL CERNER MILLENNIUM Lymph % 24.1 19.0 - 53.0 % CERNER MILLENNIUM Lymphocytes Abs 1.7 1.0 - 3.6 x10(3)/mcL CERNER MILLENNIUM Monocyte % 5.3 4.0 - 13.0 % CERNER MILLENNIUM Monocyte Abs 0.4 0.2 - 1.0 x10(3)/mcL CERNER MILLENNIUM Eos % 1.3 0.0 - 7.0 % CERNER MILLENNIUM Eosinophils Abs 0.1 0.0 - 0.5 x10(3)/mcL CERNER MILLENNIUM Basophil % 0.3 0.0 - 2.0 % CERNER MILLENNIUM Baso Absolute 0.0 0.0 - 0.2 x10(3)/mcL CERNER MILLENNIUM Immature Gran % 0.10 0.00 - 0.66 % CERNER MILLENNIUM Comment: Immature granulocytes(IG's)percentage and absolute count will include metamyelocytes, myelocytes, and promyelocytes. Blood smears from CBCs yielding IG's will be scanned manually for concordance. If this scan disagrees with the automated IG or if promyelocytes are noted, a manual differential will be performed. Immature Gran Absolute 0.01 0.00 - 0.05 x10(3)/mcL CERNER MILLENNIUM Blood specimen (specimen) 10/29/2012 12:56 PM EDT 10/29/2012 1:06 PM EDT Carlos Delcid MD HEMATOLOGY ORDERABLE S CERSUZETTE MILLENNIUM * Antibody screen (10/29/2012 12:56 PM EDT) Ab Screen Interp Negative KEMI DIANE Expires at [id number] on: [id number] KEMI DIANE Blood specimen (specimen) 10/29/2012 12:56 PM EDT 10/29/2012 1:17 PM EDT Narrative Resulting Agency Comment Spec In Lab Carlos Delcid MD BLOOD BANK LAB ORDER OCTAVIO Performing Organization Address [facility]/ZIP Co de Phone Number KEMI DIANE * ABO/Rh Typing (10/29/2012 12:56 PM EDT) ABORH Type A Neg KEMI DIANE Blood specimen (specimen) 10/29/2012 12:56 PM EDT 10/29/2012 1:17 PM EDT Narrative Resulting Agency Comment Spec In Lab Carlos Delcid MD BLOOD BANK LAB ORDER OCTAVIO Performing Organization Address [facility] Co de Phone Number KEMI DIANE * Prothrombin Time (10/29/2012 12:56 PM EDT) Prothrombin Time 13.7 12.0 - 15.0 sec KEMI DIANE Comment: [facility] Transfusion Committee Guidelines: INR less than 2.0, PTT less than OR equal to 43.5 seconds, or Fibrinogen greater than or equal to 100 mg/dl indicate adequate procoagulant activity for hemostasis in patients without underlying bleeding disorders. International Normalization Ratio 1.0 0.9 - 1.1 KEMI DIANE Blood specimen (specimen) 10/29/2012 12:56 PM EDT 10/29/2012 1:06 PM EDT Narrative Resulting Agency Comment Spec In Lab Carlos Delcid MD HEMATOLOGY ORDERABLE S Performing Organization Address [facility] Co de Phone Number KEMI DIANE * (ABNORMAL) Basic Metabolic Panel (non-fasting) (10/29/2012 12:56 PM EDT) Glucose 91 60 - 199 mg/dL CERNER MILLENNIUM Comment:Diabetes: >=200 mg/d L plus symptoms Blood Urea Nitrogen 11 8 - 18 mg/dL CERNER MILLENNIUM Creatinine 0.63(L) 0.70 - 1.20 mg/dL CERNER MILLENNIUM Comment: Please note that the pediatric reference intervals supplied above were not validated at [facility]. Results from pediatric patients should be interpreted in conjunction to the patient's age, height and muscle mass. Sodium 139 135 - 145 mmol/L CERNER MILLENNIUM Potassium 3.6 3.5 - 5.0 mmol/L CERNER MILLENNIUM Comment: Please note: ??Patients with WBC >100,000 may have falsely elevated Potassium levels. ??For accurate Potassium quantification in these patients send serum separator tube (gold top) for subsequent determinations. ??Contact the Clinical Chemistry Laboratory if there are any questions. Chloride 102 98 - 107 mmol/L CERNER MILLENNIUM Carbon Dioxide 26 22 - 31 mmol/L CERNER MILLENNIUM Anion Gap 11 5 - 15 mmol/L CERNER MILLENNIUM Calcium 9.0 8.5 - 10.5 mg/dL CERNER MILLENNIUM Est [...] internet browser. http://www.nkdep.nih.gov/lab-evaluation.shtml http://www.kidney.org/professionals/ Blood specimen (specimen) 10/29/2012 12:56 PM EDT 10/29/2012 1:06 PM EDT Narrative Resulting Agency Comment Spec In Lab Carlos Delcid MD CHEMISTRY ORDERABLES [facility] * (ABNORMAL) CBC (with Diff) (10/29/2012 12:56 PM EDT) White Blood Cell 6.9 4.0 - 10.0 x10(3)/mc L CERNER MILLENNIUM Red Blood Cell 4.31 3.93 - 5.22 x10(6)/mc L CERNER MILLENNIUM Hemoglobin 13.6 11.2 - 15.7 gm/dL CERNER MILLENNIUM Hematocrit 41.1 34.0 - 45.0 % CERNER MILLENNIUM Mean Cell Volume 95.4(H) 79.0 - 94.0 fL CERNER MILLENNIUM Mean Cell Hemoglobin 31.6 26.6 - 32.2 pg CERNER MILLENNIUM Mean Cell Hemoglobin Concentration 33.1 32.0 - 36.5 gm/dL CERNER MILLENNIUM Platelet 238 145 - 370 x10(3)/mc L CERNER MILLENNIUM RDW Standard Deviation 47.1(H) 35.0 - 46.0 fL CERNER MILLENNIUM RDW coefficient of variation 13.4 10.9 - 14.4 % CERNER MILLENNIUM Mean Platelet Volume 11.1 9.0 - 12.0 fL CERNER MILLENNIUM Blood specimen (specimen) 10/29/2012 12:56 PM EDT 10/29/2012 1:06 PM EDT Narrative Resulting Agency Comment Spec In Lab Carlos Delcid MD HEMATOLOGY ORDERABLE S KEMI DIANE documented in this encounter Visit Diagnoses Diagnosis DJD (degenerative joint disease) of knee Osteoarthrosis, unspecified whether generalized or localized, lower leg documented in this encounter Care Teams Glass Beveler Relationship Specialty Start Date End Date Rashawn Bryant MD [address] [place] [address] [place] [address] PCP - General 11/03/10 01/13/15 documented as of this encounter
--- OUTSIDE RECORDS SUMMARY | 2024-02-27 19:37 | XMS_ITS | Encounter Summary ---
Author Organization [facility] [place] [address] Care Team Providers Care Accounting Support Specialist Name Role Phone Dandy Driscoll APRN Primary Care Provider [phone] Reason for Visit * Reason Onset Date Comments Reminder Appointment 12/17/2015 Encounter Details Date Type Department Care Team (Late st Contact Info) Description 12/17/2015 [place] [address] Lucio Greenfield PA [facility] [place] [address] Reminder Appointment Social History Tobacco Use Types [...] encounter Miscellaneous Notes * Telephone Encounter - Ricardo Cohen - 12/17/2015 10:03 AM EDT LM#1 TO SCHEDULE RECALL APPT: XR 11/11/12 LT TKA REVISION documented in this encounter Plan of Treatment Upcoming Encounters Date Type Department Care Team (Late st Contact Info) Description 03/04/2024 12:00 PM EST Office Visit [place] [address] Jordyn Francisco MD [facility] [place] [address] documented as of this encounter Visit Diagnoses Not on filedocumented in this encounter Care Teams Accounting Support Specialist Relationship Specialty Start Date End Date Dandy Driscoll APRN [address] [place] [address] [place] [id number] PCP - General Family Medicine 01/20/16 documented as of this encounter
--- OUTSIDE RECORDS SUMMARY | 2024-02-27 19:37 | XMS_ITS | Encounter Summary ---
Author Organization [facility] Address [facility] [place] [address] Care Team Providers Care Global Head [employer]vertiser Solutions Name Role Phone Rashawn Bryant MD Primary Care Provider [phone] Reason for Visit * Reason Comments [facility] S/P LEFT TKA REV DOS 11/11/12 Encounter Details Date Type Department Care Team (Late st Contact Info) Description 11/27/2013 2:50 PM EDT Office [place] [address] Carlos Delcid MD [facility] [address] [place] [address] Germain Frances PA [facility] [place] [address] S/P TKR (total knee replacement) using cement, bilateral (Primary Dx) Discharge Disposition: Home Social History Tobacco Use [...] Sign Reading Time Taken Comments Blood Pressure 138/75 11/27/2013 3:39 PM EDT RAD IAL Pulse 85 11/27/2013 3:39 PM EDT Temperature 36.8 ??C (98.2 ??F) 11/27/2013 3:39 PM ED T Respiratory Rate - - Oxygen Saturation - - Inhaled Oxygen Concentration - - Weight 118.7 kg (261 lb 11.2 oz) 11/27/2013 3:39 PM EDT Height 157.5 cm (5' 2) 11/27/2013 3:39 PM EDT Body Mass Index 47.87 11/27/2013 3:39 PM EDT documented in this encounter Progress Notes * Germain Frances PA - 11/27/2013 4:17 PM EDT Patient Name: Stacy Knight : 1950 MR#: [id number] Case Date: 11-11-2012 Surgeon: Sruthi Delcid Procedure: left total knee revision, R TKA HPI: Stacy Knight is a very pleasant 63 y.o. year-old female who presents for a 12 months follow-up of the above procedure. The patient has been doing very well and her pain is markedly improved over preoperative status. No fevers, chills, nausea, vomiting, or symptoms of infection. Stacy has beenambulating with no assistive device. She has been doing very well with both her knees. She has had some trouble with cellulitis in her RLE, was seen in a local ED in October and placed on Keflex and Clindamycin for 10 days. She was then placed on Bactrim for the cellulitis and a bladder infection by her PCP. She finished the bactrim today. Her leg looks much better per the pt. She has not had any trouble with her knees during this time. Physical Exam: Well-appearing female in no acute distress. Alert and Oriented x 3 and answers all questions appropriately. The incision is well healed, with no signs of infection. Knee Exam: Left Gait Abnormality: Normal Knee ROM: Extension:0 Flexion: 110 Alignment: 0-4 degrees Neutral Stability: A/P Translation <5mm Varus <5mm Valgus <5mm Extension La degrees or less Patella Tracking: Normal Pulses Palpable: Left PT:Yes Left DP:Yes Motor/Sensory: Distal Motor: Normal Distal Sensory: Normal Quadriceps Strength: 5 X-RAYS: Multiple radiographic views were obtained at my request and reviewed with the patient. X-rays show a well-placed prosthesis with no evidence of fracture or loosening. ASSESSMENT/PLAN: 12 months post-op and doing well. Continue weightbearing as tolerated and working on range of motion, and we will see her back in 12 months for repeat examination. x-rays will be needed at that time. Patient may return to normal activities as her pain and function allow. If she develops any S/S of infection, or her cellulitis, she will seek prompt attention. We discussed the appropriate precautions surrounding dental [...] including foot ulcers and urinary tract infections. Signed: DEBRA VIRK 11/27/2013 documented in this encounter Miscellaneous Notes * Addendum Note - Carlos Delcid MD - 11/27/2013 5:01 PM EDTAddended by: CARLOS DELCID on: 11/27/2013 05:01 PM Modules accepted: Orders documented in this encounter Plan of Treatment Upcoming Encounters Date Type Department Care Team (Late st Contact Info) Description 03/04/2024 12:00 PM EST Office Visit [place] [address] Jordyn Francisco MD [facility] OBSTETRICS [place] [address] documented as of this encounter Visit Diagnoses Diagnosis S/P TKR (total knee replacement) using cement, bilateral- Primary documented in this encounter Care Teams Global Head [employer] Relationship Specialty Start Date End Date Rashawn Bryant MD [address] [place] [address] [place] [address] PCP - General 11/03/10 01/13/15 documented as of this encounter"
--- OUTSIDE RECORDS SUMMARY | 2024-02-27 19:37 | XMS_ITS | Encounter Summary ---
[place] [address] Care Team Providers Care Electric Mule Driver Name Role Phone Dandy Driscoll APRN Primary Care Provider [phone] Reason for Visit * Reason Comments Follow-up left hip pain Encounter Details Date Type Department Care Team (Latest Contact Info) Description 08/09/2017 1:30 PM EDT Office [place] [address] Soto Dumont MD Primary osteoarthritis of left hip; Encounter for long-term (current) use of medications ; Pain in extremity, unspecified extremity Social History Tobacco Use Types Packs/Day Years [...] Sign Reading Time Taken Comments Blood Pressure 144/70 08/09/2017 1:43 PM EDT Pulse 78 08/09/2017 1:43 PM EDT Temperature - - Respiratory Rate - - Oxygen Saturation - - Inhaled Oxygen Concentration - - Weight 110.1 kg (242 lb 11.2 oz) 08/09/2017 1:43 PM EDT measured Height 157.5 cm (5' 2) 08/09/2017 1:43 PM EDT v erbal Body Mass Index 44.39 08/09/2017 1:43 PM EDT documented in this encounter Progress Notes * Alejandrina Elliott PA - 08/09/2017 1:30 PM EDT PATIENT NAME: Stacy Knight AGE: 67 y.o. MR#: [id number] DATE OF VISIT: 08/09/2017 HISTORY OF PRESENT ILLNESS Ms. Knight is a 67 y.o. year old female who comes into clinic today for follow up of her left hip pain secondary to OA. She has had long standing pain, worsening over time. See previous notes for full history. She last saw Dr. Dumont a few months ago, with a goal to lose more weight prior to surgery. She does weight watchers and has gone down from 300 pounds to 239.2 at most recent weigh in, though her weight loss has slowed this winter due to worsening hip pain. She now has trouble even standing in the kitchen to cook her healthy meals and often has to sit down to take breaks and turn the stove off. She denies any PMH of diabetes, tobacco use, DVT/PE, or metal allergies. She has bilateral TKA. Her BMI today is actually 43. ROS: Negative for fever, chills, SOB, chest pain, nausea, vomiting, and diarrhea. Patient's medications, allergies, past medical, surgical, social and family histories were reviewedand updated as appropriate. [facility] Non-surgical Followup Visit 08/09/2017 PROMIS-10 General Health Good PROMIS-10 [...] Physical therapy, Acetaminophen (e.g. Tylenol) Prior Surgery dhruv hiplift HOOS JR Scores 61.82 ENA Grade 4 Satisfaction with Treatment Somewhat satisfied Choose Same Treatment Again Probably no Orthopeadics [facility] Response 08/09/2017 HOOS JR Scores 61.82 Spine [facility] Response 08/09/2017 HOOS JR Scores 61.82 Physical Exam Blood pressure 144/70, pulse 78, height 157.5 cm (5' 2), weight 110.1 kg (242 lb 11.2 oz). Constitutional: oriented to person, place, and time and well-developed, well- nourished, and in no distress. Skin: Skin is warm and dry. I have made the following determinations: Hip Exam: Left Prior surgery on this joint:No Leg Length: Longer leg: equal Limb Length discrepancy: 0cm Motion: Flexion contracture: 0 Total degrees of Flexion: 85 Total degrees of Abduction: 20 Total degrees of Ext Rotation: 20 Total degrees of Internal Rotation: 0 Gait Abnormality: Antalgic Radiographic evidence of joint damage: [0= normal; 1=minimal ; 2= some osteophytes , some narrowing ; 3= moderate osteophytes, significantnarrowing, mild deformity; 4= large osteophytes, marked narrowing, obvious deformity]: 4= large ostophytes, marked narrowing, obvious deformity Skin Integrity: Normal Pulses Palpable: Left PT: Yes Left DP: Yes Motor/Sensory: Left Distal Motor: Normal Distal Sensory: Normal Hip Abductors: 5 Trendelenburg test: negative RADIOLOGICAL STUDIES: I reviewed X-rays taken today of the left hip which shows severe DJD with complete loss of joint space, subchondral sclerosis, and marginal osteophytes. ASSESSMENT/PLAN: Stacy Knight is a 67 y.o. female who presents to the clinic for follow up of left hip pain secondary to OA. She has severe end stage OA in the hip, with worsening even since her last X-rays in March. She has been managing her pain conservatively, including with pool therapy, but has not noticedany improvement in her pain. Her arthritis continues to progress and is very severe. She has lost alot of weight and will continue to work on this over the summer. We will plan on a left ENA in December. Dr. Dumont discussed details of ENA with her today and will place orders. The surgical schedulers will call her to pick a date. * Soto Dumont MD - 08/09/2017 1:30 PM EDT I have seen the patient and reviewed Alejandrina Elliott MD's history/physical and I agree with the details as written. The assessment and plan were formulated in discussion with me and I agree with them as documented. In brief, patient is a 67-year-old female with advanced left hip osteoarthritis. She has mild obesity with a BMI currently 40. She's working diligently on weight loss with Weight Wat[employer]. She is making progress. At this point, she like to pursue a left total hip arthroplasty at the end of the summer around December. I think this is reasonable as long as she continues her current weight loss plan . I did discuss with her anterior burst posterior approach. She does have a pannus however I did lift her pannus today in the skin underneath is pristine. I told her I'll decide upon approach posterior to surgical date. She is excited about this news. We'll see her back one week before surgical intervention. Soto Dumont MD, MS 08/09/2017 documented in this encounter Miscellaneous Notes * Addendum Note - Soto Dumont MD - 08/09/2017 5:20 PM EDTAddended by: SOTO DUMONT on: 08/09/2017 05:20 PM Modules accepted: Orders, SmartSet documented in this encounter Plan of Treatment Upcoming Encounters Date Type Department Care Team (Late st Contact Info) Description 03/04/2024 12:00 PM EST Office Visit [place] [address] Jordyn Francisco MD [facility] [address] OBSTETRICS [place] [address] Scheduled Orders Name Type Priority Associated Diagnoses Orde r Schedule XR Pelvis & Lat Hip Left (Generic) Imaging Routine Primary osteoarthritis of left hip Expected: 08/09/2017 (Approximate), Expires: 02/08/2018 documented as of this encounter Procedures Procedure Name Priority Date/Time Associated Diagnosis Comments TOTAL HIP ARTHROPLASTY, ANTERIOR APPROACH Routine 08/09/2017 5:18 PM EDT Primary osteoarthritis of left hip documented in this encounter Results * EKG 12 Lead (11/15/2017 12:24 PM EDT) Ventricular rate 73 BPM MUSE SYSTEM Atrial Rate 73 BPM MUSE SYSTEM P-R Interval 170 ms MUSE SYSTEM QRS Duration 84 ms MUSE SYSTEM Q-T Interval 378 ms MUSE SYSTEM QTC Calculated (Bezet) 416 ms MUSE SYSTEM Calculated P [place] 60 degrees MUSE SYSTEM Calculated R [place] 37 degrees MUSE SYSTEM Calculated T [place] 26 degrees MUSE SYSTEM INTERPRETATION Normal sinus rhythm Normal ECG When compared with ECG of 03-JUN-2001 11:24, No significant change was found Confirmed by MD Marissa, Heriberto Alfred ([id number]) on 11/15/2017 5:26:00 PM MUSE SYSTEM 11/15/2017 12:2 4 PM EDT 11/15/2017 5:26 PM EDT Soto Dumont MD ECG ORDERABLES Performing Organization Address [facility] Co de Phone Number MUSE SYSTEM * APTT (11/15/2017 12:08 PM EDT) Partial Thromboplastin Time 31 25 - 37 sec [facility] Comment: The PTT is NOT appropriate for heparin monitoring. Use the Anti-Xa level for heparin monitoring (HEP UFH) or LMWH monitoring (HEP LMW). A PTT less than 37 seconds generally indicates adequate hemostasis. Blood specimen (specimen) 11/15/2017 12:08 PM EDT 11/15/2017 12:36 PM EDT Narrative Resulting Agency Comment Spec In Lab Soto Dumont MD HEMATOLOGY ORDERABLE S Performing Organization Address City/[facility]/ZIP Co de Phone Number [facility] [place] [address] * Prothrombin Time (11/15/2017 12:08 PM EDT) Prothrombin Time 11.7 9.4 - 12.5 sec [facility] International Normalization Ratio 1.0 [facility] Comment: An INR <2.0 indicates [...] be appropriate depending on clinical circumstances. Blood specimen (specimen) 11/15/2017 12:08 PM EDT 11/15/2017 12:36 PM EDT Narrative Resulting Agency Comment Spec In Lab Soto Dumont MD HEMATOLOGY ORDERABLE S [facility] [place] [address] * (ABNORMAL) Basic Metabolic Panel (non-fasting) (11/15/2017 12:08 PM EDT) Glucose 86 65 - 199 mg/dL [facility] Comment:Diabetes: >=200 mg/d L plus symptoms Blood Urea Nitrogen 13 8 - 18 mg/dL [facility] Creatinine 0.67(L) 0.70 - 1.20 mg/dL [facility] Sodium 143 135 - 145 mmol/L [facility] Potassium 4.0 3.5 - 5.0 mmol/L [facility] Comment: Please note: ??Patients with WBC >100,000 may have falsely elevated Potassium levels. ??For accurate Potassium quantification in these patients send serum separator tube (gold top) for subsequent determinations. ??Contact the Clinical Chemistry Laboratory if there are any questions. Chloride 101 98 - 107 mmol/L [facility] Carbon Dioxide 28 22 - 31 mmol/L [facility] Anion Gap 14 5 - 15 mmol/L [facility] Calcium 9.4 8.5 - 10.5 mg/dL [facility] Est Glomerular Filtration Rate 92 >=60 mL/min/1. 73 m?? [facility] Comment: The eGFR was calculated using the CKD-EPI equation. As with all creatinine based estimates of kidney function, eGFR values calculated with the CKD-EPI equation are not accurate in patients with acute kidney failure, extremes of body mass or the acutely ill. [email or web address] eGFR 106 >=60 mL/min/1. 73 m?? [facility] Comment: The eGFR was calculated using the CKD-EPI equation. As with all creatinine based estimates of kidney function, eGFR values calculated with the CKD-EPI equation are not accurate in patients with acute kidney failure, extremes of body mass or the acutely ill. [email or web address] Blood specimen (specimen) 11/15/2017 12:08 PM EDT 11/15/2017 12:36 PM EDT Narrative Resulting Agency Comment Spec In Lab Soto Dumont MD CHEMISTRY ORDERABLES [facility] [place] [address] documented in this encounter Visit Diagnoses Diagnosis Primary osteoarthritis of left hip Primary localized osteoarthrosis, pelvic region and thigh Encounter for long-term (current) use of medications Encounter for long-term (current) use of other medications Pain in extremity, unspecified extremity documented in this encounter Care Teams Electric Mule Driver Relationship Specialty Start Date End Date Dandy Driscoll APRN [address] [place] [address] [place] [address] PCP - General Family Medicine 01/20/16 documented as of this encounter
--- OUTSIDE RECORDS SUMMARY | 2024-02-27 19:37 | XMS_ITS | Encounter Summary ---
Author Organization [facility] [place] [address] Care Team Providers Care Membership Sales Representative Name Role Phone Dandy Driscoll APRN Primary Care Provider [phone] Reason for Visit * Reason Comments [facility] Left TKA REV 11/11/12 Right TKA Encounter Details Date Type Department Care Team (Late st Contact Info) Description 01/20/2016 12:00 PM EDT Office [place] [address] Roseann Ojeda APRN [facility] [place] [address] S/P TKR (total knee replacement) using cement, left Social History Tobacco Use Types Packs/Day Years [...] Sign Reading Time Taken Comments Blood Pressure 133/77 01/20/2016 12:02 PM EDT Pulse 88 01/20/2016 12:02 PM EDT Temperature - - Respiratory Rate - - Oxygen Saturation - - Inhaled Oxygen Concentration - - Weight 113.4 kg (250 lb) 01/20/2016 12:02 PM EDT verbal Height 157.5 cm (5' 2) 01/20/2016 12:02 PM EDT verbal Body Mass Index 45.73 01/20/2016 12:02 PM EDT documented in this encounter Progress Notes * Roseann Schulz, FREIGHT UNLOADER - 01/20/2016 12:00 PM EDT Procedures: Case Date: 11/11/2012 Surgeon: Carlos Delcid MD - Primary Procedure(s): @TOTAL KNEE REVISION ARTHROPLASTY, COMPLETE (Left) MODIFIER PFC & MBT REVISION DEPUY MODIFIER PFC STABILIZED FIXED MODULAR DEPUY SURGERY DATE: 06/27/2001 ?? Actual Procedures: TOTAL KNEE REPLACEMENT-BILATERAL /PFC STABILIZED MODUL Visit Date: 01/20/16 CC: Re-year rotary follow-up revision of left tibial component, 14 year follow- up right TKA Subjective: Stacy Knight is here for followup after the above procedures. She reports she is doing well and has no pain, increased swelling, redness, warmth to the joints or signs of loosening. She continues toambulate unassisted. She does complain of falling frequently due to constrained spaces at home and an altered gait. Denies any recent infections or hospitalizations and overall feels she is doing well in regard to her knees. Active Ambulatory Problems Diagnosis Date Noted ??? Impaired renal function 09/13/2010 ??? Tibial component revision L knee (11/11/2012, Bhavin) 11/07/2010 ??? History of total right knee replacement, R TKA performed in 200101/20/2016 Resolved Ambulatory Problems Diagnosis Date Noted ??? No Resolved Ambulatory Problems No Additional Past Medical History Current Outpatient Prescriptions: ??? predniSONE (DELTASONE) 20 mg Tablet, , Disp: , Rfl: ??? traMADol (ULTRAM) 50 mg Tablet, TAKE ONE TABLET BY MOUTH AT BEDTIME NEEDED, Disp: , Rfl: 2 ??? cephALEXin (KEFLEX) 500 mg capsule, Take by mouth as needed. TAKES 1 HOUR PRIOR TO DENTAL WORK., Disp: , Rfl: ??? naproxen (NAPROSYN) 250 mg tablet, Take 250 mg by mouth 2 times daily (with meals)., Disp: , Rfl: ??? Cranberry 1,000 mg Cap, Take by mouth 2 times daily., Disp: , Rfl: ??? Levalbuterol Tartrate (XOPENEX HFA) 45 mcg/actuation inhaler, Inhale 2 puffs into the lungs every 4 hours as needed., Disp: , Rfl: ??? verapamil (CALAN-SR) 240 mg CR tablet, Take 240 mg by mouth nightly., Disp: , Rfl: ??? fluticasone-salmeterol (ADVAIR) 500-50 mcg/dose diskus inhaler, Inhale 1 puff into the lungs 2 times daily., Disp: , Rfl: ??? cyclobenzaprine (FLEXERIL) 10 mg tablet, Take 5 mg by mouth 3 times daily as needed., Disp: , Rfl: Allergies Allergen Reactions ??? Isopropyl Alcohol Rash ??? Meperidine Hcl Other (See Comments) Very Loopy ??? Penicillins Other (See Comments) SWELLS UP ??? Propoxyphene Hcl Itching [facility] FollowUp 01/20/2016 Health in general Very Good Quality of life Very Good Physical health Very Good Mental health Good Satisfaction with social activities Good Ability to carry out physical activities Mostly Rate of pain 0 -No Pain Rate of fatigue Mild Ability to carry out social activities Good Bothered by emotional problems Rarely PROMIS PHYSICAL HEALTH SCORE 54.1 PROMIS MENTAL HEALTH SCORE 48.3 Rising from bed None Putting on socks or stockings Moderate Rising from sitting Moderate Bending to the floor Moderate Twisting or pivoting on your injured knee Moderate Kneeling Mild Squatting None KOOS-PS Scores 31.8 Gone to ER since knee surgery No Admitted to hospital since knee surgery No Additional surgery on same knee No ROS: Denies fevers, chills, night sweats, nausea, or vomiting. Objective: Blood pressure 133/77, pulse 88, height 157.5 cm (5' 2), weight (!) 113.4 kg (250 lb). Body mass index is 45.73 kg/(m^2). General : alert, appears stated age and cooperative. Obese. Gait: Abnormal. Skin/Incision: Well healed with no erythema erythema about joints. Tenderness: none bilaterally Effusion: no bilaterally. I have made the following determinations: Post Op Left Knee Exam: Gait Abnormality: Wide-based Knee ROM: Extension:0 Flexion: 110 Alignment: 0-4 degrees Neutral Stability: A/P Translation <5mm Varus (lateral stability) <5mm Valgus (medial stability) <5mm Extension La degrees or less Patella Tracking: Normal Pulses Palpable: Left PT:Yes Left DP:Yes Motor/Sensory: Distal Motor: Normal Distal Sensory: Normal Quadriceps Strength:5 I have made the following determinations: Post Op Right Knee Exam: Knee ROM: Extension:0 Flexion: 120 Alignment: 0-4 degrees Neutral Stability: A/P Translation <5mm. Varus (lateral stability)<5mm Valgus (medial stability) <5mm Extension La degrees or less Patella Tracking: Normal Pulses Palpable: Right PT: Yes Right DP:Yes Motor/Sensory: Distal Motor: Normal Distal Sensory: Normal Quadriceps Strength: 5 Imaging AP and lateral views of the patient's bilateral knees performed today were reviewed and compared with previous films. Right knee reveals PE ascencio that is stable otherwise bilateral implants, left withlongstem tibial implant, are well placed without osteolysis or malrotation. Assessment: 14 years status post right total knee arthroplasty and 3 years status post revision of tibial implant of left TKA. Doing well postoperatively. Plan: Encouraged patient to engage in some core and abductor strengthening and perhaps consider using a cane for gait issues. Discussed red flag symptoms such as increased pain, swelling, redness or signs of loosening about joints. Otherwise, patient will continue weightbearing as tolerated 2 years for repeat examination. X-rays will be needed at that time. Patient may return to normal activities as her pain and function allow. We discussed the appropriate precautions surrounding dental prophylaxis. Discussed she is at low risk for rico a joint infection from routine dental procedures. However, she understands she may call here for a prescription if she chooses to continue to take them. We also discussed maintaining good foot care and giving prompt attention to any source of infection throughout the body including foot ulcers and urinary tract infections. Follow up: 2 years with XR prior. ?? documented in this encounter Plan of Treatment Upcoming Encounters Date Type Department Care Team (Late st Contact Info) Description 03/04/2024 12:00 PM EST Office Visit [place] [address] Jordyn Francisco MD [facility] DR OBSTETRICS [place] [address] documented as of this encounter Visit Diagnoses Diagnosis S/P TKR (total knee replacement) using cement, left documented in this encounter Care Teams Membership Sales Representative Relationship Specialty Start Date End Date Dandy Driscoll APRN [address] [place] [id number] PCP - General Family Medicine 01/20/16 documented as of this encounter
--- OUTSIDE RECORDS SUMMARY | 2024-02-27 19:37 | XMS_ITS | Encounter Summary ---
Author Organization [facility] [place] [address] Care Team Providers Care Heavy Truck Driver Name Role Phone Rashawn Bryant MD Primary Care Provider [phone] Reason for Visit * Reason Onset Date Comments Follow Up Surgery 11/20/2012 Encounter Details Date Type Department Care Team (Late st Contact Info) Description 11/20/2012 Telephone [place] [phone] Carlos Delcid MD [facility] DR ORTHOPA[place] [address] Follow Up Surgery Social History Tobacco Use Types Packs/Day Years [...] Telephone Encounter - Ashley Laughlin RN - 11/20/2012 9:17 AM EDT Phone call to [facility] - spoke with Shazia and recommended that PCP be notified of elevated blood pressure so that they can either adjust medication or schedule office visit for evaluation. * Telephone Encounter - Shazia Godoy - 11/20/2012 8:57 AM EDT Enoch Bhatt called from the [facility] and wanted to let us know the patient's blood pressure has been extremely high S/P surgery on 11/13/[address] Delcid. Within the past 48 hours some of her readings have been 154/100, 160/100 and 180/92. Please call him at [phone]. documented in this encounter Plan of Treatment Upcoming Encounters Date Type Department Care Team (Late st Contact Info) Description 03/04/2024 12:00 PM EST Office Visit [place] [address] Jordyn Francisco MD [facility] OBSTETRICS [place] [address] documented as of this encounter Visit Diagnoses Not on filedocumented in this encounter Care Teams Heavy Truck Driver Relationship Specialty Start Date End Date Rashawn Bryant MD [address] [place] [address] [place] GALAN [id number] PCP - General 11/03/10 01/13/15 documented as of this encounter
--- OUTSIDE RECORDS SUMMARY | 2024-02-27 19:37 | XMS_ITS | Encounter Summary ---
Author Organization [facility] [place] [address] Care Team Providers Care Accounting Manager Controller Name Role Phone Danita Bryant MD Primary Care Provider [phone] Encounter Details Date Type Department Care Team (Late st Contact Info) Description 11/11/2012 12:27 PM EDT - 11/11/2012 3:25 PM EDT Surgery [place] [address] Leslie Delcid MD [facility] [place] [address] @TOTAL KNEE REVISION ARTHROPLASTY, COMPLETE (WRVU 27.11) Social History Tobacco Use Types Packs/Day Years [...] Discharge Instructions * Discharge Instructions* Rafael Michele L, FILE KEEPER - 11/13/2012 11:31 AM EDT Activity: You [...] sennakot, to factilitate a bowel movement. An dzck-lpb-gvwsiwh medication, miralax can also beused if needed [...] APPOINTMENTS: You will have followup appointments at [facility] as indicated in Future Appointments and Orders. [...] Can I have a shoe horn and instrument adjuster? Objective: Seen this am for gait and review of ex's. 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 Pt denies the need for in-pt rehab and feels she can manage at home with VNA. Pt requests [facility] for services. She will be on [...] sign off; please contact Regional Anesthesia Team ([phone]) for any unresolved sensory or motor deficits or bleeding or bruising at site of block. Thank you for this consultation. ANASTASIA WESTON MD Regional team pager [phone] * Leslie Delcid MD - 11/12/2012 5:49 AM EDT ORTHOPAEDIC PROGRESS NOTE SURGERY/ISSUE: L TKA Revision of Loose Tibial Componet Patient Active Problem List Diagnoses Code ??? Impaired renal function 593.9 ??? Tibial compenent revision L knee (11/11/2012, Bhavin) V43.65 No past medical history on file. Interval History: No major issues overnight, pain well controlled with MEDIUM CYCLE SALESPERSON, Denies CP/SOB/V. Reports nausea with meal last night. Temp: [36.4 ??C (97.5 ??F)-36.7 ??C (98.1 ??F)] Heart Rate: [76-89] Resp: [13-18] BP: (94-135)/(45-74) SpO2: [96 %-100 %] I/O last 3 completed shifts: In: 281 [I.V.:281] Out: 575 [Urine:215; Other:160; Blood:200] I/O [...] passed without medication. Pain well controlled with MEDIUM CYCLE SALESPERSON Dilaudid. * Ally Gaxiola RN - 11/11/2012 6:56 PM EDT 1830: [facility] to [facility] s/p L TKR. Oriented to room and call anderson. Pt is A / O x 3. Denies N/V, SOB, CP. Educated on MEDIUM CYCLE SALESPERSON button and using button appropriately. L knee [...] sennakot, to factilitate a bowel movement. An zhdv-beh-gqmnzaa medication, miralax can also beused if needed [...] APPOINTMENTS: You will have followup appointments at [facility] as indicated in Future Appointments and Orders. You will have an xray prior to those appointments so please come to Radiology, desk 3T, 1 hour BEFORE your appointment for those x-rays. Future Appointments and Orders Future Appointments: Provider: Department: Dept Phone: Center: 12/19/2012 1:30 PM Leslie Delcid MD Orthopaedics [phone] None Joint Appt Health Question [facility] D [facility] Orth[facility] [phone] None Future Orders Please Complete By Expires Tens unit [[id number] Custom] Process Instructions: Do not use this order if supplies are given in the office. Instead, use Charge Capture to document supplies and submit charge. Scheduling Instructions: Comments: Sticky pads for TENS unit Questions: Responses: Size requested: sticky pads only- 2 packs per month Vendor Name/Contact information: [facility] Referral to Home Health [[id number] CPT(R)] Process Instructions: Scheduling Instructions: Comments: [facility] Mobile Complete. PHONE: [phone] FAX: [phone] DISCHARGE DOCUMENTATION FOR VNA SERVICES (INCLUDING THOSE PATIENTS WITH MEDICARE COVERAGE BEING DISCHARGED HOME WITH VNA SERVICES AND THOSE PATIENTS WITH MEDICARE COVERAGE WHO ARE BEING DISCHARGED HOME WITH HOSPICE SERVICES) In discussion with the attending physician, it is certified that this patient is under their care and that they, or a nurse practitioner, clinical nurse specialist or physician's assistant program manager who is working directly with them, had [...] from this patient's PCP: DANITA BRYANT MD [address] [place] [address] [place] [address] All VNA agencies which cover the area of patient's residence have been reviewed, either verbally andrew writing, and patient/family have chosen the indicated home health care agency for home services. Questions: Responses: Agency name and contact information [facility] Patient location post discharge home What services are requested Start date Responsible MD post discharge contact info Primary Care Provider: DANITA BRYANT MD [phone] Joints: [phone] Electronically Signed by: MICHELE HALL, LETI 11/13/2012 * Initial Assessments - Asha Back, [...] Delcid MD - 11/11/2012 4:03 PM EDT [facility] Operative Note Patient Name: Stacy Knight : [id number] MR#: [id number] Case Date: 11/11/2012 Surgeon: Surgeon(s) and Role: [...] Implant Name Type Inv. Item Serial No. Product Coordinator Lot No. LRB No. Used Action CEMENT,BNE,CMW 1,GNTA,40GM ([id number]) - [id number] IMPLANTS CEMENT,BNE,CMW 1,GNTA,40GM ([id number]) Depuy Handle Machine Operator - 3527 [id number] Left 1 Implanted TRAY,TIB,MBT,REVSN,CMNT,SZ2.5 ([id number]) (AUTOREQ) - [id number] IMPLANTS TRAY,TIB,MBT,REVSN,CMNT,SZ2.5 ([id number]) (AUTOREQ) Depuy Handle Machine Operator - 3527 [id number] Left 1 Implanted STEM,PFC,SGM,TIB,CMNT,[id number] ([id number]) (AUTOREQ) - [id number] IMPLANTS STEM,PFC,SGM,TIB,CMNT,30Q66OE ([id number]) (AUTOREQ) Depuy Handle Machine Operator - 3527 [id number] Left 1 Implanted SLEEVE,FMRL,MBT,REVSN,[id number] ([id number]) (AUTOREQ) - [id number] IMPLANTS SLEEVE,FMRL,MBT,REVSN,16G68QS ([id number]) (AUTOREQ) Depuy Handle Machine Operator - 3527 [id number] Left 1 Implanted INSER,PFC,SGM,RP,STAB,SZ2.5,10 ([id number]) (AUTOREQ) - [id number] IMPLANTS INSER,PFC,SGM,RP,STAB,SZ2.5,10 ([id number]) (AUTOREQ) Depuy Handle Machine Operator - 3527 [id number] Left 1 Implanted HPI/Surgical Indications: CLARIFICATION NEEDED: [...] well padded. A time-out was performed per [facility] protocol and the team agreed to proceed [...] wound was dressed with Mepilex, Kerlix, and oov-kx-biyuq Alfredo. She was awakened from anesthesia and [...] Operative Note Patient Name: Stacy Knight : [id number] MR#: [id number] Case Date: 11/11/2012 Surgeon: Surgeon(s) and Role: [...] Implant Name Type Inv. Item Serial No. Product Coordinator Lot No. LRB No. Used Action CEMENT,BNE,CMW 1,GNTA,40GM ([id number]) - [id number] IMPLANTS CEMENT,BNE,CMW 1,GNTA,40GM ([id number]) Depuy Handle Machine Operator - 3527 [id number] Left 1 Implanted TRAY,TIB,MBT,REVSN,CMNT,SZ2.5 ([id number]) (AUTOREQ) - [id number] IMPLANTS TRAY,TIB,MBT,REVSN,CMNT,SZ2.5 (0371633) (AUTOREQ) Depuy Handle Machine Operator - 3527 [id number] Left 1 Implanted STEM,PFC,SGM,TIB,CMNT,29T97LD ([id number]) (AUTOREQ) - [id number] IMPLANTS STEM,PFC,SGM,TIB,CMNT,58S51IS ([id number]) (AUTOREQ) Depuy Handle Machine Operator - 3527 [id number] Left 1 Implanted SLEEVE,FMRL,MBT,REVSN,[id number] ([id number]) (AUTOREQ) - [id number] IMPLANTS SLEEVE,FMRL,MBT,REVSN,[id number] ([id number]) (AUTOREQ) Depuy Handle Machine Operator - 3527 [id number] Left 1 Implanted INSER,PFC,SGM,RP,STAB,SZ2.5,10 ([id number]) (AUTOREQ) - [id number] IMPLANTS INSER,PFC,SGM,RP,STAB,SZ2.5,10 ([id number]) (AUTOREQ) Depuy Handle Machine Operator - 3527 [id number] Left 1 Implanted Disposition: awakened from anesthesia, [...] PM EST Office Visit [place] [address] Jordyn Francisco MD [facility] DR OBSTET[place] [address] documented as of this encounter Procedures Procedure [...] Leslie Delcid MD HEMATOLOGY ORDERABLE S CERNER MILLENNIUM * (ABNORMAL) Basic Metabolic Panel (non-fasting) (11/13/2012 4:08 AM EDT) Glucose 138 60 - 199 mg/dL CERNER MILLENNIUM Comment:Diabetes: >=200 mg/d L plus symptoms Blood Urea Nitrogen 19(H) 8 - 18 mg/dL CERNER MILLENNIUM Creatinine 0.57(L) 0.70 - 1.20 mg/dL CERNER MILLENNIUM Comment: Please note that the pediatric reference intervals supplied above were not validated at [facility]. Results from pediatric patients should be interpreted [...] In Lab Leslie Delcid MD CHEMISTRY ORDERABLES CERNER MILLENNIUM * (ABNORMAL) CBC (with Diff) (11/13/2012 [...] Lab Leslie Delcid MD HEMATOLOGY ORDERABLE S CERNER MILLENNIUM * (ABNORMAL) Differential, Automated (11/12/2012 3:38 AM [...] 0.04 0.00 - 0.05 x10(3)/mc L CERNER MILLENNIUM Blood specimen (specimen) 11/12/2012 3:38 AM EDT 11/12/2012 3:43 AM EDT Leslie Delcid MD HEMATOLOGY ORDERABLE S KEMI ANDERSONIUM * (ABNORMAL) Basic Metabolic Panel (non-fasting) (11/12/2012 3:38 AM EDT) Glucose 155 60 - 199 mg/dL CERNER MILLENNIUM Comment:Diabetes: >=200 mg/d L plus symptoms Blood Urea Nitrogen 15 8 - 18 mg/dL CERNER MILLENNIUM Creatinine 0.50(L) 0.70 - 1.20 mg/dL CERNER MILLENNIUM Comment: Please note that the pediatric reference intervals supplied above were not validated at [facility]. Results from pediatric patients should be interpreted [...] Narrative Resulting Agency Comment Spec In Lab Lesile Delcid MD CHEMISTRY ORDERABLES CERSUZETTE ANDERSONIUM * (ABNORMAL) CBC (with Diff) (11/12/2012 3:38 [...] post left knee revision arthroplasty. Procedure Note Stevne Reich MD - 11/11/2012 Examination KNEE 1 [...] ORDERABLES documented in this encounter Visit Diagnoses Not on filedocumented in this encounter Active and Recently Administered Medications Times are shown in EDT. Scheduled Medication Order 11/11/2012 11/12/2012 11/13/2012 acetaminophen (TYLENOL) tablet 1,000 mg 1,000 mg, Oral, EVERY 8 HOURS SCHEDULED, First dose on Sun11/11/12 at 2200, Until Discontinued, Maximum dose of acetaminophen is 4000 mg from all sources in 24 hours., Routine 2107 (Given - Provider: Annabel Kelley RN) 0600 (Given - Provider: Mckayla Artis RN)1400 (Given - Provider: Leslie Campos, KATINA)2147 (Given - Provider: Emperatriz Mendoza, KATINA) 0556 (Given - Provider: Emperatriz Mendoza, KATINA) fluticasone-salmeterol (ADVAIR HFA) 115-21 mcg/actuation inhaler 2 puff (CANCELED) 2 puff, Inhalation, EVERY 12 HOURS SCHEDULED (2 times per day), First dose on Sun11/11/12 at 2100, Until Discontinued, Rinse mouth after administration 2100 (Given - Provider: Annabel Kelley RN) 09 (Given - Provider: Leslie Campos, RN)2009 (Given - Provider: Emperatriz Mendoza, KATINA) 0900 (Given - Provider: Harman Mccormack RN) [place] [facility] [address]-98 Caplet (CANCELED) 2 tablet, Misc.(Non-Drug; Combo Route), EVERY EVENING, First dose on Sun11/12/12 at 2100, Until Discontinued, [place] [address]-83 Caplet. 2007 (Given - Provider: Emperatriz Mendoza, KATINA) multivitamin Ooeg-Wb-AQ-Min (THERAPEUTIC-M) 27-0.4 mg tablet 1 tablet (CANCELED) 1 tablet, Oral, DAILY, First dose on Sun11/11/12 at 2000, Until Discontinued 2107 (Given - Provider: Annabel Kelley RN) 08 (Given - Provider: Leslie Campos RN) 09 (Given - Provider: Harman Mccormack RN) rivaroxaban (XARELTO) tablet 10 mg 10 mg, Oral, DAILY, First dose on Sun11/12/12 at 0900, Until Discontinued, Routine, Restricted anticoagulant, choose the most appropriate response: Approved indication of knee replacement DVT prophylaxis 817 (Given - Provider: Leslie Campos RN) 09 [...] 1630 (Given - Provider: Lelo Gimenez RN) 0430 (Given - Provider: Mckayla Artis RN)1621 (Given [...] Prophylaxis 1130 (Due)1233 (Given - Provider: Brooklyn Camarena, RN) vancomycin 1 g in dextrose 5% 200 mL (COMPLETED) 1,000 mg (1 g), Intravenous, EVERY 12 HOURS, 2 doses, First dose on Sun11/11/12 at 1630, Last dose on Sun11/12/12 at 0430, 15 mg/kg/dose for 2 doses postoperatively. Adjust to 12 hours from intraoperative dose., Routine, Indication for (Active or Suspected): Prophylaxis 0000 (Given - Provider: Mckayla Artis, KATINA)0100 (Not Given - Provider: Mckayla Artis RN - Reason: See comment - Comment: Given at 0000.)1200 (Given - Provider: Leslie Campos, KATINA) verapamil (CALAN-SR) CR tablet 240 mg (CANCELED) 240 mg, Oral, EVERY MORNING, First dose on Sun11/12/12 at 0700, Until Discontinued, Routine 0700 (Given - Provider: Leslie Campos RN) 0619 (Given - Provider: Emperatriz Mendoza RN) Continuous Medication Order 11/11/2012 11/12/2012 11/13/2012 HYDROmorphone (DILAUDID) 1 mg/mL MEDIUM CYCLE SALESPERSON 30 mL (CANCELED) Intravenous, MEDIUM CYCLE SALESPERSON ONLY, Starting on Sun11/11/12 at 1630, Until Sun11/12/12 at 1530 1620 (New Syringe/Cartridge - Provider: Lelo Gimenez, KATINA) lactated ringers infusion 1,000 mL (CANCELED) 1,000 mL, at 100 mL/hr, Intravenous, CONTINUOUS, Starting on Sun11/11/12 at 1630, Until Sun11/12/12 at 1530 1620 (New Bag - Provider: Lelo Gimenez, RN) 0800 (Stopped - Provider: Leslie Campos RN) PRN Medication Order 11/11/2012 11/12/2012 11/13/2012 cyclobenzaprine (FLEXERIL) tablet 10 mg (CANCELED) 10 mg, Oral, 3 TIMES DAILY PRN, Starting on Sun11/11/12 at 1844, Until Sun11/13/12 at 1510, Muscle spasms, Routine 1820 (Given - Provider: Sheridan Farris RN) 0622 (Given - Provider: Emperatriz Mendoza RN) OXYcodone (ROXICODONE) immediate release tablet 10 mg (CANCELED)(Linked Group 1) 10 mg, Oral, EVERY 4 HOURS PRN, Starting on Sun11/11/12 at 1608, Until Sun11/13/12 at 1510, Pain, moderate pain, For Moderate pain. Do not exceed 15 mg in 4 hours. If pain not relieved, call provider., Routine 1907 (Given - Provider: Sheridan Farris RN)2005 (See Alternative - Provider: Emperatriz [...] Routine documented in this encounter Care Teams Accounting Manager Controller Relationship Specialty Start Date End Date Danita Bryant MD [address] [place] [address] [place] [address] PCP - General 11/03/10 01/13/15 documented as of this encounter
--- OUTSIDE RECORDS SUMMARY | 2024-02-27 19:37 | XMS_ITS | Encounter Summary ---
Author Organization [facility] [place] [address] Care Team Providers Care Master Esthetician Name Role Phone Rashawn Bryant MD Primary Care Provider [phone] Encounter Details Date Type Department Care Team (Late st Contact Info) Description 11/29/2012 Telephone [place] [address] Carlos Delcid MD [facility] DR ORTHOPAEDIC [place] [address] Social History Tobacco Use Types Packs/Day Years [...] encounter Miscellaneous Notes * Telephone Encounter - Marlene Vincent - 11/29/2012 1:38 PM EDT Enoch from the [facility] called to advise that patient is doing well and is being discharged from nursing care. She will continue with PT. documented in this encounter Plan of Treatment Upcoming Encounters Date Type Department Care Team (Late st Contact Info) Description 03/04/2024 12:00 PM EST Office Visit Gy[place] [address] Jordyn Francisco MD [facility] OBSTETRICS [place] [address] documented as of this encounter Visit Diagnoses Not on filedocumented in this encounter Care Teams Master Esthetician Relationship Specialty Start Date End Date Rashawn Bryant MD [address] [place] [address] [place] [address] PCP - General 11/03/10 01/13/15 documented as of this encounter
--- OUTSIDE RECORDS SUMMARY | 2024-02-27 19:37 | XMS_ITS | Encounter Summary ---
[place] [address] Care Team Providers Care Metal Window Screen Assembler Name Role Phone Dandy Driscoll APRN Primary Care Provider [phone] Encounter Details Date Type Department Care Team (Late st Contact Info) Description 08/21/2017 [place] [address] Patrick Dumont MD Social History Tobacco Use [...] * Telephone Encounter - Asha Epperson - 08/21/2017 10:01 AM EDT Patient returned our call. Scheduled for left hip surgery on 12/26/[address] Dumont. * Telephone Encounter - Asha Epperson - 08/21/2017 9:04 AM EDT I called and left a message for patient to call [phone] directly and schedule surgery with Dr. Dumont. documented in this encounter Plan of Treatment Upcoming Encounters Date Type Department Care Team (Late st Contact Info) Description 03/04/2024 12:00 PM EST Office Visit [place] [address] Jordyn Francisco MD [facility] OBSTETRICS [place] [address] documented as of this encounter Visit Diagnoses Not on filedocumented in this encounter Care Teams Metal Window Screen Assembler Relationship Specialty Start Date End Date Dandy Driscoll APRN [address] [place] [address] [place] [id number] PCP - General Family Medicine 01/20/16 documented as of this encounter
--- OUTSIDE RECORDS SUMMARY | 2024-02-27 19:37 | XMS_ITS | Encounter Summary ---
Author Organization [facility] [place] [address] Care Team Providers Care Anthropologist Name Role Phone Rashawn Bryant MD Primary Care Provider [phone] Reason for Visit * Reason Onset Date Comments Medication Problem 11/25/2012 Encounter Details Date Type Department Care Team (Late st Contact Info) Description 11/25/2012 [place] [address] Carlos Delcid MD [facility] DR [place] [address] Social History Tobacco Use Types Packs/Day Years [...] as of this encounter Miscellaneous Notes * Addendum Note - Silvia Ng LPN - 11/26/2012 7:53 AM EDTAddended by: SILVIA NG on: 11/26/2012 07:53 AM Modules accepted: Orders * Telephone Encounter - Alvina Pendleton - 11/25/2012 10:04 AM EDT Patient called for medication refill, please call patient at [phone] documented in this encounter Plan of Treatment Upcoming Encounters Date Type Department Care Team (Late st Contact Info) Description 03/04/2024 12:00 PM EST Office Visit [place] [address] Jordyn Francisco MD [facility] DR OBSTETRICS [place] [address] documented as of this encounter Visit Diagnoses Not on filedocumented in this encounter Care Teams Anthropologist Relationship Specialty Start Date End Date Rashawn Bryant MD [address] [place] [address] [place] [address] PCP - General 11/03/10 01/13/15 documented as of this encounter
--- OUTSIDE RECORDS SUMMARY | 2024-02-27 19:37 | XMS_ITS | Encounter Summary ---
[place] [address] Care Team Providers Care Print Binding And Finishing Worker Name Role Phone Rashawn Bryant MD Primary Care Provider [phone] Encounter Details Date Type Department Care Team (Latest Contact Info) Description 10/29/2012 12:20 PM EDT Clinical [place] [phone] DJD (degenerative joint disease) of knee Social History Tobacco Use Types Packs/Day Years [...] Taken Comments Blood Pressure - - Pulse 99 10/29/2012 11:47 AM EDT Temperature - - Respiratory Rate - - Oxygen Saturation 96% 10/29/2012 11: 47 AM EDT Inhaled Oxygen Concentration - - Weight 114.5 kg (252 lb 6.4 oz) 013 11:47 AM EDT Height 157.5 cm (5' 2) 10/29/2012 11:4 7 AM EDT Body Mass Index 46.16 10/29/2012 11:47 AM EDT documented in this encounter Progress Notes * Helena Mathur RN - 10/29/2012 12:37 PM EDT Preadmission testing - PAT questionnaire was completed and reviewed here in PAT on 09/26/12. She states there have been no changes in her medical condition or history. Information reviewed, lab work drawn today. EKG was done 10/23/12, non DH. DOS had been rescheduled for 11/11/[address] Delcid. documented in this encounter Plan of Treatment Upcoming Encounters Date Type Department Care Team (Late st Contact Info) Description 03/04/2024 12:00 PM EST Office Visit [place] [address] Jordyn Francisco MD [facility] [address] OBSTETRICS [place] [address] documented as of this encounter Visit Diagnoses Diagnosis DJD (degenerative joint disease) of knee Osteoarthrosis, unspecified whether generalized or localized, lower leg documented in this encounter Care Teams Print Binding And Finishing Worker Relationship Specialty Start Date End Date Rashawn Bryant MD [address] [place] [address] [place] [address] PCP - General 11/03/10 01/13/15 documented as of this encounter
--- OUTSIDE RECORDS SUMMARY | 2024-02-27 19:37 | XMS_ITS | Encounter Summary ---
[place] [address] Care Team Providers Care Yarn Polishing Machine Operator Name Role Phone Dandy Driscoll APRN Primary Care Provider [phone] Reason for Visit * Reason Comments Left Hip Pain Encounter Details Date Type Department Care Team (Late st Contact Info) Description 05/10/2017 1:00 PM EST Office [place] [phone] Patrick Dumont MD Pain in left hip Social History Tobacco Use Types Packs/Day Years Used Date Smoking Tobacco: Former Smokeless Tobacco: Never Comments:quit about 1979 Alcohol Use Standard Drinks/Week Comments No 0 (1 standard drink = 0.6 oz pur e alcohol) Sex and Gender Information Value Date Recorded Sex Assigned at Not on file Gender Identity Not on file Sexual Orientation Not on file documented as of this encounter Last Filed Vital Signs Vital Sign Reading Time Taken Comments Blood Pressure 150/60 05/10/2017 12:45 PM EST Pulse 75 05/10/2017 12:45 PM EST Temperature - - Respiratory Rate - - Oxygen Saturation - - Inhaled Oxygen Concentration - - Weight 109.8 kg (242 lb) 05/10/2017 12:45 PM EST verbal Height 157.5 cm (5' 2) 05/10/2017 12:45 PM EST verbal Body Mass Index 44.26 05/10/2017 12:45 PM EST documented in this encounter Progress Notes * Patrick Dumont MD - 05/10/2017 1:00 PM EST I have seen the patient and reviewed Nathan Jean Pierre PAC's history/physical and I agree with the details as written. The assessment and plan were formulated in discussion with me and I agree with them asdocumented. In brief patient is a 67-year-old female presents today with continued left hip pain. She has a history of morbid obesity with a BMI of 45 today. Discussed with her today the importance of weight loss due to the increased risk of infection. Patient certainly has left hip osteoarthritis. Discussed the role of weight loss and nutrition. Patient will work on this and let us know when she achieves these goals. Patrick Dumont MD, MS 05/10/2017 * Lucio [place] PA - 05/10/2017 1:00 PM EST HPI: 66 yo female with several month history of increased pain to her left hip. She has known OA. She has been working with PT and has achieved some weight goals. Pain is most of the time; worst withweight bearing. She has had both her knees replaced which are working well. She has seen the team at [facility] and is pending eval with a stamping press operator there PE: Wheelchair assist or antalgia. When seated, ROM of the hip is limited to 90 degrees flexion with 10 degrees external and 0 degrees internal. Calves soft and nontender. No effusion to either knee.Calves soft and nontender. X-rays: Marked degenerative change to the hip with erosion of the femoral head. Assessment: Left hip pain, Severe OA Plan: We discussed her hip and her complaints. We discussed a range of treatments. She has made some gains with weight loss and would like to continue those efforts which is reasonable. Indications and risks of ENA were discussed. We'll see her again as needed. documented in this encounter Plan of Treatment Upcoming Encounters Date Type Department Care Team (Late st Contact Info) Description 03/04/2024 12:00 PM EST Office Visit [place] [address] Jordyn Francisco MD [facility] DR OBSTETRICS [place] [address] documented as of this encounter Visit Diagnoses Diagnosis Pain in left hip Pain in joint, pelvic region and thigh documented in this encounter Care Teams Yarn Polishing Machine Operator Relationship Specialty Start Date End Date Dandy Driscoll APRN [address] [place] [address] [place] [phone] PCP - General Family Medicine 01/20/16 documented as of this encounter
--- OUTSIDE RECORDS SUMMARY | 2024-02-27 19:37 | XMS_ITS | Encounter Summary ---
Author Organization Formerly [facility], 1928–1983 Address [facility] [place] [address] Care Team Providers Care Lens Hardener Name Role Phone Dandy Driscoll APRN Primary Care Provider [phone] Encounter Details Date Type Department Care Team (Latest Contact Info) Description 06/30/2016 - 06/30/2016 11:59 PM EDT Hospital Encounter Radiology Library at [facility] [place] [phone] Patrick Dumont MD Pain Discharge Disposition: Home [...] PM EST Office Visit [place] [address] Jordyn Francisco MD [facility] [place] [address] documented as of this encounter Procedures Procedure Name Priority Date/Time Associated Diagnosis Comments FILM LIBRARY STORAGE ONLY DX HIP Routine 06/30/2016 12:00 AM EDT Pain documented in this encounter Results * Film Library- Storage Only DX Hip (06/30/2016 12:00 AM EDT) Narrative [facility] - 07/06/2016 9:42 AM EDT This exam is for storage only and is auto-finalizing. Patrick Dumont MD IMG FILM LIBRARY ORD ERABLES [place], [place] documented in this encounter Visit Diagnoses Diagnosis Pain Generalized pain documented in this encounter Care Teams Lens Hardener Relationship Specialty Start Date End Date Dandy Driscoll APRN [facility] [place] [address] PCP - General Family Medicine 01/20/16 documented as of this encounter
--- OUTSIDE RECORDS SUMMARY | 2024-02-27 19:37 | XMS_ITS | Encounter Summary ---
Author Organization [facility] [place] [address] Care Team Providers Care Edi Consultant Name Role Phone RdiscollDandy LETI Primary Care Provider [phone] Encounter Details Date Type Department Care Team (Late st Contact Info) Description 08/02/2017 Orders [place] [address] Patrick Dumont MD Pain in left hip [...] PM EST Office Visit [place] [address] Jordyn Francisco MD [facility] OBSTETRICS [place] [address] documented as of this encounter Results * XR Pelvis w [...] joint, pelvic region and thigh Pain in left hip Pain in joint, pelvic region and thigh documented in this encounter Care Teams Edi Consultant Relationship Specialty Start Date End Date Dandy Driscoll APRN [address] [place] [address] [place] [phone] PCP - General Family Medicine 01/20/16 documented as of this encounter
--- OUTSIDE RECORDS SUMMARY | 2024-02-27 19:37 | XMS_ITS | Encounter Summary ---
Author Organization [facility] Address [facility] [place] [address] Care Team Providers Care Vice President Of Finance Name Role Phone Rashawn Bryant MD Primary Care Provider [phone] Encounter Details Date Type Department Care Team (Latest Contact Info) Description 11/27/2013 1:45 PM EDT - 11/27/2013 11:59 PM EDT Hospital Encounter XRay at [address] [place] [address] Tibial compenent revision L knee (11/11/2012, Delcid) Social History Tobacco Use Types Packs/Day Years [...] PM EST Office Visit [place] [address] Jordyn Francisco MD [facility] DR OBSTETRICS [place] [address] documented as of this encounter Procedures Procedure Name Priority Date/Time Associated Diagnosis Comments XR KNEE DIAGNOSTIC 1 OR 2 VIEW Routine 11/27/2013 2:08 PM EDT documented in this encounter Results * XR knee diagnostic 1 or 2 view (11/27/2013 2:08 PM EDT) Anatomical Region Laterality Modality Knee N/A Radiographic Susan ging 11/27/2013 2:08 PM EDT Narrative 11/27/2013 2:38 PM EDT Examination KNEE 1 OR 2 VIEWS/LEFT Clinical History Left TKA ??revision Comparison 12/19/2012. Technique AP standing view of both knees, as well as a lateral view of the left knee. Findings Left knee arthroplasty components appear in unchanged position. ??No new or increased periprosthetic lucency is identified. ??No interval periprosthetic fracture is noted. Small osseous fragment on the lateral view projecting dorsal to the distal left femur appears in a slightly different position, equivocal for a loose body. No change in the post arthroplasty appearance on the right on the AP projection. ?? Impression Equivocal findings for loose body on lateral projection, as above. Otherwise unchanged. Procedure Note Stacie Sellers MD - 11/27/2013 Examination KNEE 1 OR 2 VIEWS/LEFT Clinical History Left TKA revision Comparison 12/19/2012. Technique AP standing view of both knees, as well as a lateral view of the leftknee. Findings Left knee arthroplasty components appear in unchanged position. No new or increased periprosthetic lucency is identified. No intervalperiprosthetic fracture is noted. Small osseous fragment on the lateral view projectingdorsal to the distal left femur appears in a slightly different position,equivocal for a loose body. No change in the post arthroplasty appearance on theright on the AP projection. Impression Equivocal findings for loose body on lateral projection, as above.Otherwise unchanged. Carlos Delcid MD IMG DX ORDERABLES documented in this encounter Visit Diagnoses Diagnosis Tibial compenent revision L knee (11/11/2012, Bhavin) Knee joint replacement by other means documented in this encounter Care Teams Vice President Of Finance Relationship Specialty Start Date End Date Rashawn Bryant MD [address] [place] [address] [place] [address] PCP - General 11/03/10 01/13/15 documented as of this encounter
--- OUTSIDE RECORDS SUMMARY | 2024-02-27 19:37 | XMS_ITS | Encounter Summary ---
Author Organization [facility] [place] [place] [address] Care Team Providers Care Ladle Pourer Name Role Phone Rashawn Bryant MD Primary Care Provider [phone] Reason for Visit * Reason Comments Aftercare Of [facility] s/p left tka rev dos 11/11/12 Encounter Details Date Type Department Care Team (Late st Contact Info) Description 02/13/2013 10:50 AM EST Office [place] [address] Carlos Delcid MD [facility] [place] [address] Tibial compenent revision L knee (11/11/2012, Bhavin) (Primary Dx) Discharge Disposition: Home Social History [...] Sign Reading Time Taken Comments Blood Pressure 134/70 02/13/2013 11:19 AM EST Pulse 97 02/13/2013 11:19 AM EST Temperature - - Respiratory Rate - - Oxygen Saturation - - Inhaled Oxygen Concentration - - Weight 114.7 kg (252 lb 12.8 oz) 2012 11:19 AM EST Height 157.5 cm (5' 2) 02/13/2013 11:1 9 AM EST Body Mass Index 46.24 02/13/2013 11:19 AM EST documented in this encounter Progress Notes * Johnathan Neves PA - 02/13/2013 11:44 AM EST PATIENT NAME: Stacy Knight AGE: 62 y.o. MR#: [id number] DATE OF VISIT: 02/13/2013 Patient Name: Stacy Knight : [id number] MR#: [id number] Case Date: 11/11/2012 Surgeon: Surgeon(s) and Role: * Carlos Delcid MD - Primary * Wai Golden MD Preoperative diagnosis: LEFT REV TKA Postoperative diagnosis: LEFT REV TKA Procedure(s): @TOTAL KNEE REVISION ARTHROPLASTY, COMPLETE MODIFIER PFC & MBT REVISION DEPUY MODIFIER PFC STABILIZED FIXED MODULAR DEPUY STAFF: Dr. Delcid CHIEF COMPLAINT: 3 months s/p the above procedure HISTORY OF PRESENT ILLNESS Ms. Eugene canas 62 y.o. year old female comes into clinic today for evaluation of her left knee status post the above procedure. Patient states, that she's having some discomfort at night. However, overall, much improved since her last visit. She reports some anterior shooting pain. She's been going to physical therapy twice daily, where she's been able to get roughly 113??of flexion, and -5?? of extension. She's been taking Aleve with good relief related. Left intraoperative knee flexion: 115?? Left intraoperative knee extension: 0?? ROS: Denies fever, chills, [place], LOC, SOB, CP, NVD, abd pain, paresthesias, weakness in the extremities, swelling in the joints, h/o RA. No recent hospitalizations PHYSICAL EXAM: Ms. Knight a 62 y.o. year old is alert and oriented. She appears in no acute discomfort and is resting comfortably in a chair in the exam room. I have made the following determinations: Post Op Left Knee Exam: Gait Abnormality: Normal Knee ROM: Extension:-5 Flexion: 110 Alignment: 0-4 degrees Neutral Stability: A/P Translation <5mm Varus (lateral stability) <5mm Valgus (medial stability) <5mm Extension La degrees or less Patella Tracking: Normal Pulses Palpable: Left PT:Yes Left DP:Yes Motor/Sensory: Distal Motor: Normal Distal Sensory: Normal Quadriceps Strength:4 RADIOLOGICAL STUDIES: None taken today ASSESSMENT: 62-year-old 3 months s/p left tibial component revision The patient was seen and the plan was formulated in conjunction with Dr. Delcid. PLAN: Ms. Knight and I discussed her radiologic findings and physical exam findings. Patient is progressing well postoperative management, and rehabilitation. She should continue her PT working on strengthening, and range of motion exercises. Patient can take Aleve 220 mg twice a day as needed for pa in. Patient should take medication with food. We will see the patient back in 9 months for her one year postoperative followup. The patient understands to contact us if they have any other questions or concerns. We discussed the appropriate precautions surrounding dental prophylaxis. I stressed that he should avoid elective dental procedures for the first 6 months after surgery and then call the office for aprescription prior to any further dental work for the lifetime of the joint replacement. We also discussed maintaining good foot care and giving prompt attention to any source of infection throughoutthe body including foot ulcers and urinary tract infections. DEBRA ELMORE 02/13/2013 documented in this encounter Plan of Treatment Upcoming Encounters Date Type Department Care Team (Late st Contact Info) Description 03/04/2024 12:00 PM EST Office Visit [place] [address] Jordyn Francisco MD [facility] OBSTETR[place] [address] documented as of this encounter Visit Diagnoses Diagnosis Tibial compenent revision L knee (11/11/2012, Bhavin)- Primary Knee joint replacement by other means documented in this encounter Care Teams Ladle Pourer Relationship Specialty Start Date End Date Rashawn Bryant MD [address] [place] [address] [place] [address] PCP - General 11/03/10 01/13/15 documented as of this encounter
--- OUTSIDE RECORDS SUMMARY | 2024-02-27 19:37 | XMS_ITS | Encounter Summary ---
[place] [address] Care Team Providers Care Frame Opener Name Role Phone Dandy Driscoll APRN Primary Care Provider [phone] Encounter Details Date Type Department Care Team (Latest Contact Info) Description 11/15/2017 10:40 AM EDT Clinical [place] [phone] Primary osteoarthritis of left hip Social History [...] Taken Comments Blood Pressure - - Pulse 79 11/15/2017 11:40 AM EDT Temperature - - Respiratory Rate - - Oxygen Saturation 96% 11/15/2017 11:40 AM EDT Inhaled Oxygen Concentration - - Weight 116.1 kg (256 lb) 11/15/2017 11:40 AM EDT Height 157.5 cm (5' 2) 11/15/2017 11:40 AM EDT Body Mass Index 46.82 11/15/2017 11:40 AM EDT documented in this encounter Progress Notes * Ashley Drake RN - 11/15/2017 10:40 AM EDT PAT questionnaire reviewed with patient while in Pre Admission testing. Pre- operative instruction booklet reviewed. Patient verbalizes a good understanding of all information reviewed. PLAN: Testing: T&S,lab,EKG Special medication instructions: Procedure date: 12-12 documented in this encounter Plan of Treatment Upcoming Encounters Date Type Department Care Team (Late st Contact Info) Description 03/04/2024 12:00 PM EST Office Visit [place] [address] Jordyn Francisco MD [facility] [place] [address] documented as of this encounter Procedures Procedure Name Priority Date/Time Associated Diagnosis Comments EKG 12-LEAD Routine 11/15/2017 12:24 PM EDT Primary osteoarthritis of left hip documented in this encounter Results * EKG 12 Lead (11/15/2017 12:24 PM EDT) Ventricular rate 73 BPM MUSE SYSTEM Atrial Rate 73 BPM MUSE SYSTEM P-R Interval 170 ms MUSE SYSTEM QRS Duration 84 ms MUSE SYSTEM Q-T Interval 378 ms MUSE SYSTEM QTC Calculated (Bezet) 416 ms MUSE SYSTEM Calculated P Weston 60 degrees MUSE SYSTEM Calculated R [place] 37 degrees MUSE SYSTEM Calculated T [place]on 26 degrees MUSE SYSTEM INTERPRETATION Normal sinus rhythm Normal ECG When compared with ECG of 03-JUN-2001 11:24, No significant change was found Confirmed by MD Marissa, Heriberto Alfred ([id number]) on 11/15/2017 5:26:00 PM MUSE SYSTEM 11/15/2017 12:2 4 PM EDT 11/15/2017 5:26 PM EDT Patrick Dumont MD ECG ORDERABLES MUSE SYSTEM documented in this encounter Visit Diagnoses Diagnosis Primary osteoarthritis of left hip Primary localized osteoarthrosis, pelvic region and thigh documented in this encounter Care Teams Frame Opener Relationship Specialty Start Date End Date Dandy Driscoll APRN [address] [place] [address] [place] [address] PCP - General Family Medicine 01/20/16 documented as of this encounter
--- OUTSIDE RECORDS SUMMARY | 2024-02-27 19:37 | XMS_ITS | Encounter Summary ---
Author Organization [facility] [place] [address] Care Team Providers Care Elementary Spanish Teacher Name Role Phone Dandy Driscoll APRN Primary Care Provider [phone] Encounter Details Date Type Department Care Team (Latest Contact Info) Description 11/15/2017 10:40 AM EDT [place] [phone] Primary osteoarthritis of left hip; Encounter for [...] PM EST Office Visit [place] [phone] Jordyn Francisco MD [facility] [address] [place] [address] documented as of this encounter Procedures Procedure Name Priority Date/Time Associated Diagnosis Comments ABORH RECHECK STATUS Routine 11/15/2017 12:08 PM EDT HEMOGRAM Routine 11/15/2017 12:08 PM EDT Encounter for long-term (current) use of medications Primary osteoarthritis of left hip DIFFERENTIAL, AUTOMATED Routine 11/15/2017 12:08 PM EDT Encounter for long-term (current) use of medications Primary osteoarthritis of left hip TYPE AND SCREEN, SDP (FUTURE SURGERY, [facility] SAME DAY PROGRAM ONLY) Routine 11/15/2017 12:08 PM EDT Primary osteoarthritis of left hip ABO/RH TYPING Routine 11/15/2017 12:08 PM EDT Primary osteoarthritis of left hip APTT Routine 11/15/2017 12:08 PM EDT Pain in extremity, unspecified extremity Primary osteoarthritis of left hip PROTHROMBIN TIME Routine 11/15/2017 12:0 8 PM EDT Pain in extremity, unspecified extremity Primary osteoarthritis of left hip CBC (WITH DIFF) Routine 11/15/2017 12:08 PM EDT Encounter for long-term (current) use of medications Primary osteoarthritis of left hip ANTIBODY SCREEN Routine 11/15/2017 12:08 PM EDT Primary osteoarthritis of left hip BASIC METABOLIC PANEL Routine 11/15/2017 12:08 PM EDT Primary osteoarthritis of left hip documented in this encounter Results * ABORH Recheck Status (11/15/2017 12:08 PM EDT) ABORH Recheck Order Order Placed [facility] ABORH Type Recheck not performed [facility] Blood specimen (specimen) 11/15/2017 12:08 PM EDT 11/15/2017 12:33 PM EDT Narrative Resulting Agency Comment Spec In Lab Patrick Dumont MD BLOOD BANK LAB ORDER OCTAVIO [facility] [place] [address] * Differential, Automated (11/15/2017 12:08 PM EDT) Pathologist [facility] Neutrophil % 64.0 % [facility] Neutrophil Absolute 4.76 1.70 - 6.10 x10(3)/[facility] LABORATORY Lymph % 25.9 % [facility] Lymphocytes Abs 1.9 0.9 - 3.2 x10(3)/[facility] LABORATORY Monocyte % 7.1 % [facility] Monocyte Abs 0.5 0.3 - 0.9 x10(3)/[facility]ORAT[facility] Eos % 2.1 % [facility] Eosinophils Abs 0.2 0.0 - 0.4 x10(3)/[facility]OR[facility] Basophil % 0.5 % [facility] Baso Absolute 0.0 0.0 - 0.1 x10(3)/[facility] LABORATORY Immature Gran % 0.40 % [facility] Comment: Immature granulocytes(IG's)percentage and absolute count will include metamyelocytes, myelocytes, and promyelocytes. Blood smears from CBCs yielding IG's will be scanned manually for concordance. If this scan disagrees with the automated IG or if promyelocytes are noted, a manual differential will be performed. Immature Gran Absolute 0.03 0.00 - 0.04 x10(3)/[facility] Blood specimen (specimen) 11/15/2017 12:08 PM EDT 11/15/2017 12:36 PM EDT Narrative Resulting Agency Comment Spec In Lab Patrick Dumont MD HEMATOLOGY ORDERABLE S [facility] [place] [address] * (ABNORMAL) Hemogram (11/15/2017 12:08 PM EDT) [facility] White Blood Cell 7.4 4.0 - 9.5 x10(3)/[facility] LABORATORY Red Blood Cell 4.27 4.00 - 5.21 x10(6)/[facility] Hemoglobin 13.4 11.7 - 15.5 gm/dL [facility] Hematocrit 41.3 35.7 - 45.8 % [facility] Mean Cell Volume 96.7(H) 82.6 - 94.4 [facility] LABORATORY Mean Cell Hemoglobin 31.4 27.1 - 32.0 pg [facility] Mean Cell Hemoglobin Concentration 32.4 31.7 - 35.0 gm/dL [facility] Platelet 257 145 - 357 x10(3)/mc L [facility] RDW Standard Deviation 49.4(H) 37.0 - 46.0 [facility] LABORATORY RDW coefficient of variation 13.8 11.5 - 14.1 % [facility] Mean Platelet Volume 11.3 7.6 - 12.9 [facility] LABORATORY NRBC% auto 0.0 % [facility] NRBC Absolute 0.000 0.000 - 0.000 x10(3)/ L [facility] Blood specimen (specimen) 11/15/2017 12:08 PM EDT 11/15/2017 12:36 PM EDT Narrative Resulting Agency Comment Spec In Lab Patrick Dumont MD HEMATOLOGY ORDERABLE S [facility] [place] [address] * Antibody screen (11/15/2017 12:08 PM EDT) Ab Screen Interp Negative [facility] Expires at 2359 on: 12/30/2017 [facility] Comment:Corrected from 12/15 12:00 [Unknown] on 12/13/17 10:30 by Gisela Malik Blood specimen (specimen) 11/15/2017 12:08 PM EDT 11/15/2017 12:33 PM EDT Narrative Resulting Agency Comment Spec In Lab Patrick Dumont MD BLOOD BANK LAB ORDER OCTAVIO Performing Organization Address City/[facility]/ZIP Co de Phone Number [facility] [place] [address] * ABO/Rh Typing (11/15/2017 12:08 PM EDT) ABORH Type A Neg [facility] Blood specimen (specimen) 11/15/2017 12:08 PM EDT 11/15/2017 12:33 PM EDT Narrative Resulting Agency Comment Spec In Lab Patrick Dumont MD BLOOD BANK LAB ORDER OCTAVIO Performing Organization Address [facility] Co de Phone Number [facility] [place] [address] * APTT (11/15/2017 12:08 PM EDT) Partial Thromboplastin Time 31 25 - 37 sec [facility] Comment: The PTT is NOT appropriate for heparin monitoring. Use the Anti-Xa level for heparin monitoring (HEP UFH) or LMWH monitoring (HEP LMW). A PTT less than 37 seconds generally indicates adequate hemostasis. Blood specimen (specimen) 11/15/2017 12:08 PM EDT 11/15/2017 12:36 PM EDT Narrative Resulting Agency Comment Spec In Lab Patrick Dumont MD HEMATOLOGY ORDERABLE S Performing Organization Address [facility] Co de Phone Number [facility] [place] [address] * Prothrombin Time (11/15/2017 12:08 PM EDT) Prothrombin Time 11.7 9.4 - 12.5 sec [facility] International Normalization Ratio 1.0 [facility] Comment: An INR <2.0 [...] Lab Patrick Dumont MD HEMATOLOGY ORDERABLE S [facility] [place] [address] * (ABNORMAL) Basic Metabolic Panel (non-fasting) (11/15/2017 12:08 PM EDT) Glucose 86 65 - 199 mg/dL [facility] Comment:Diabetes: >=200 mg/d L plus symptoms Blood Urea Nitrogen 13 8 - 18 mg/dL [facility] Creatinine 0.67(L) 0.70 - 1.20 mg/dL [facility] Sodium 143 135 - 145 mmol/L [facility] Potassium 4.0 3.5 - 5.0 mmol/L [facility] Comment: Please note: ??Patients with WBC >100,000 may have falsely elevated Potassium levels. ??For accurate Potassium quantification in these patients send serum separator tube (gold top) for subsequent determinations. ??Contact the Clinical Chemistry Laboratory if there are any questions. Chloride 101 98 - 107 mmol/L [facility] Carbon Dioxide 28 22 - 31 mmol/L [facility] Anion Gap 14 5 - 15 mmol/L [facility] Calcium 9.4 8.5 - 10.5 mg/dL [facility] Est Glomerular Filtration Rate 92 >=60 mL/min/1. 73 m?? [facility] Comment: The eGFR was calculated using the CKD-EPI equation. As with all creatinine based estimates of kidney function, eGFR values calculated with the CKD-EPI equation are not accurate in patients with acute kidney failure, extremes of body mass or the acutely ill. http://LoopNet/DHnkf eGFR 106 >=60 mL/min/1. 73 m?? [facility] Comment: The eGFR was calculated using the CKD-EPI equation. As with all creatinine based estimates of kidney function, eGFR values calculated with the CKD-EPI equation are not accurate in patients with acute kidney failure, extremes of body mass or the acutely ill. http://LoopNet/DHMCnkf Blood specimen (specimen) 11/15/2017 12:08 PM EDT 11/15/2017 12:36 PM EDT Narrative Resulting Agency Comment Spec In Lab Patrick Dumont MD CHEMISTRY ORDERABLES [facility] [place] [address] documented in this encounter Visit Diagnoses Diagnosis Primary osteoarthritis of left hip Primary localized osteoarthrosis, pelvic region and thigh Encounter for long-term (current) use of medications Encounter for long-term (current) use of other medications Pain in extremity, unspecified extremity documented in this encounter Care Teams Elementary Spanish Teacher Relationship Specialty Start Date End Date Dandy Driscoll APRN [address] [place] [address] [place] [address] PCP - General Family Medicine 01/20/16 documented as of this encounter
--- OUTSIDE RECORDS SUMMARY | 2024-02-27 19:38 | XMS_ITS | Encounter Summary ---
Author Organization [facility] [place] [address] Care Team Providers Care Ultimate Hoops Scoreboard Operator Name Role Phone Rashawn Bryant MD Primary Care Provider [phone] Encounter Details Date Type Department Care Team (Late st Contact Info) Description 09/30/2012 Orders [place] [phone] Ashley Laughlin, RN DJD (degenerative joint disease) of knee (Primary Dx) Social History Tobacco Use Types [...] PM EST Office Visit [place] [address] Jordyn Francisco MD [facility] DR OBSTETRICS [place] [address] Scheduled Orders Name Type Priority Associated Diagnoses Orde r Schedule EKG 12 Lead ECG Routine DJD (degenerative joint disease) of knee Expected: 09/30/2012, Expires: 01/28/2013 documented as of this encounter Results * Urine culture Clean Catch Urine (10/29/2012 12:59 PM EDT) Urine Culture ? Patient Name: SURYA KNIGHT ? Ordered By: CARLOS DELCID ? MR#: [id number] ?LOC: ??4V ? /Sex: ??1950 (62 years), ? Female ? PROCEDURE: Urine Culture ?SOURCE: U CC ? COLLECTED: 10/29/2012 12:59 ? STARTED: 10/29/2012 13:13 ? FINAL REPORT ? Final Report ? Verified: 013 07:32 ? 50,000-99,000 cfu/ml mixed mucosal sade ? Note: Multiple bacterial morphotypes present. Suggest appropriate ? recollection with timely delivery to ? the laboratory, if clinically significant. ? [facility] Urine specimen obtained by clean catch procedure (specimen) 10/29/2012 12:59 PM EDT 10/29/2012 1:12 PM EDT Narrative Resulting Agency Comment Spec In Lab Carlos Delcid MD MICROBIOLOGY - GENER AL ORDERABLES [facility] * (ABNORMAL) Urinalysis with microscopic (10/29/2012 12:59 [...] Urine Dipstick Clear Clear [facility]EN[facility] Specific [place] Urine Automated 1.016 1.002 - 1.030 CERNER [...] In Lab Carlos Delcid MD URINE ORDERABLES [facility] * Prothrombin Time (10/29/2012 12:56 PM EDT) Pathologist [facility] Prothrombin Time 13.7 12.0 - 15.0 sec [facility] MILLENNIUM Comment: [facility] Transfusion Committee Guidelines: INR less than 2.0, PTT less than OR equal to 43.5 seconds, or Fibrinogen greater than or equal to 100 mg/dl indicate adequate procoagulant activity for hemostasis in patients without underlying bleeding disorders. International Normalization Ratio 1.0 0.9 - 1.1 [facility] MILLENNI[facility] Blood specimen (specimen) 10/29/2012 12:56 PM EDT 10/29/2012 1:06 PM EDT Narrative Resulting Agency Comment Spec In Lab Carlos Delcid MD HEMATOLOGY ORDERABLE S [facility] * (ABNORMAL) Basic Metabolic Panel (non-fasting) (10/29/2012 12:56 PM EDT) Glucose 91 60 - 199 mg/dL [facility] Comment:Diabetes: >=200 mg/d L plus symptoms Blood Urea Nitrogen 11 8 - 18 mg/dL [facility] Creatinine 0.63(L) 0.70 - 1.20 mg/dL [facility] Comment: Please note that the pediatric reference intervals supplied above were not validated at [facility]. Results from pediatric patients should be interpreted [...] In Lab Carlos Delcid MD CHEMISTRY ORDERABLES [facility] * (ABNORMAL) CBC (with Diff) (10/29/2012 12:56 [...] Diagnoses Diagnosis DJD (degenerative joint disease) of knee- Primary Osteoarthrosis, unspecified whether generalized or localized, lower leg documented in this encounter Care Teams Ultimate Hoops Scoreboard Operator Relationship Specialty Start Date End Date Rashawn Bryant MD [address] [place] [address] [place] [address] PCP - General 11/03/10 01/13/15 documented as of this encounter
--- OUTSIDE RECORDS SUMMARY | 2024-02-27 19:38 | XMS_ITS | Encounter Summary ---
Author Organization [facility] [place] [address] Care Team Providers Care Director Patient Name Role Phone Gerardo Barnes MD Primary Care Provider [phone] Reason for Visit * Reason Onset Date Comments Medication Refill 09/12/2010 Encounter Details Date Type Department Care Team (Late st Contact Info) Description 09/12/2010 Telephone [place] [address] Corry Hamilton APRN [facility] [place] [address] Medication Refill Social History Tobacco Use Types Packs/Day Years Used Date Smoking Tobacco: Never Assessed Sex and Gender Information Value Date Recorded Sex Assigned at Not on file Gender Identity Not on file Sexual Orientation Not on file documented as of this encounter Miscellaneous Notes * Telephone Encounter - Elle Walters LPN - 09/12/2010 12:42 PM EDT Ms. Knight calls today requesting a refill for her [place]. She also reports that she is currently taking Oxybutynin short acting 5mg, 2 tablets three times daily instead of the 5mg three times dailyas prescribed by Corry Gonzales APRN. Mrs. Knight expressed that she drinks roughly 16oz daily as she has incontinence. She was strongly encouraged to drink water before her visit. The above information was discussed with Corry. Per andrey Wheatley scheduled for 09/14 at 4pm. documented in this encounter Plan of Treatment Upcoming Encounters Date Type Department Care Team (Late st Contact Info) Description 03/04/2024 12:00 PM EST Office Visit Gynecology [place] [address] Jordyn Francisco MD [facility] DR OBSTETRICS [place] [address] documented as of this encounter Visit Diagnoses Not on filedocumented in this encounter Care Teams Director Patient Relationship Specialty Start Date End Date Gerardo Barnes MD PCP - General 03/01/10 11/02/10 documented as of this encounter
--- OUTSIDE RECORDS SUMMARY | 2024-02-27 19:38 | XMS_ITS | Encounter Summary ---
Author Organization [facility] [place] [address] Care Team Providers Care Contract Modeler Name Role Phone Rashawn Bryant MD Primary Care Provider [phone] Encounter Details Date Type Department Care Team (Late st Contact Info) Description 07/04/2012 External Results [place] [phone] Social History Tobacco Use Types Packs/Day Years [...] Office Visit [place] [phone] Jordyn Francisco MD [facility] OBSTETRICS [place] [address] documented as of this encounter Procedures Procedure Name Priority Date/Time Associated Diagnosis Comments IMPLANTABLE DEVICES SCAN Routine 07/04/2012 8:31 AM EDT documented in this encounter Visit Diagnoses Not on filedocumented in this encounter Care Teams Contract Modeler Relationship Specialty Start Date End Date Rashawn Bryant MD [address] [place] [address] [place] [address] PCP - General 11/03/10 01/13/15 documented as of this encounter
--- OUTSIDE RECORDS SUMMARY | 2024-02-27 19:38 | XMS_ITS | Encounter Summary ---
Author Organization [facility] [place] [address] Care Team Providers Care Wort Extractor Name Role Phone Rashawn Bryant MD Primary Care Provider [phone] Reason for Visit * Reason Comments Follow Up Surgery Bilat TKA Encounter Details Date Type Department Care Team (Late st Contact Info) Description 01/25/2012 10:20 AM EDT Office [place] [address] Carlos Delcid MD [facility] [place] [address] S/P TKR (total knee replacement) using cement (Primary Dx) Discharge Disposition: Home Social History Tobacco Use Types Packs/Day Years Used Date Smoking Tobacco: Never Smokeless Tobacco: Never Alcohol Use Standard Drinks/Week Comments No 0 (1 standard drink = 0.6 oz pur e alcohol) Sex and Gender Information Value Date Recorded Sex Assigned at Not on file Gender Identity Not on file Sexual Orientation Not on file documented as of this encounter Last Filed Vital Signs Vital Sign Reading Time Taken Comments Blood Pressure 132/74 01/25/2012 11:16 AM EDT Pulse 88 01/25/2012 11:16 AM EDT Temperature - - Respiratory Rate - - Oxygen Saturation - - Inhaled Oxygen Concentration - - Weight 115.3 kg (254 lb 1.6 oz) 012 11:16 AM EDT Height 157.5 cm (5' 2) 01/25/2012 11:1 6 AM EDT Body Mass Index 46.48 01/25/2012 11:16 AM EDT documented in this encounter Progress Notes * Michael Souza PA - 01/25/2012 11:48 AM EDT PATIENT NAME: Stacy Knight AGE: 61 y.o. MR#: [id number] SURGERY DATE: 06/27/2001 Actual Procedures: TOTAL KNEE REPLACEMENT-BILATERAL /PFC STABILIZED MODUL DATE OF VISIT: 01/25/2012 STAFF: The patient was seen and the plan was formulated in conjunction with Dr. Delcid. CHIEF COMPLAINT: follow-up of bilateral TKA HISTORY OF PRESENT ILLNESS Ms. Eugene canas 61 y.o. year old female comes into clinic today for follow-up of bilateral TKA performed over 10 years ago. She reports that she is doing well, without any acute changes. She has no pain. She notes that when it gets cold the knee can be stiff. She notes ongoing swelling of the left knee for the past 2 years, that is worse in the summer. She is without any new cluncking of the knees. She has some pain and feeling tight with initiation of activity. No redness or increased warmth. She feels like her knees do not feel stable enough to walk in the [place] to cut firewood, which has been this way since the surgery. She worries about walking on uneven ground. ROS: she has an acute asthma exacerbation and was on a antibiotic will be seeing her PCP tomorrow, without fever, chills, nausea or vomiting. Physical Exam There were no vitals taken for this visit. Constitutional: She is oriented to person, place, and time and well-developed, well-nourished, and in no distress. Skin: Skin is warm and dry. I have made the following determinations: Post Op Right Knee Exam: Gait Abnormality: Normal Knee ROM: Extension:0 Flexion: 110 Alignment: 0-4 degrees Neutral Stability: A/P Translation <5mm. Varus (lateral stability)<5mm Valgus (medial stability) <5mm Extension La degrees or less Patella Tracking: Normal Pulses Palpable: Right PT: Yes Right DP:Yes Motor/Sensory: Distal Motor: Normal Distal Sensory: Normal Quadriceps Strength: 5 I have made the following determinations: Post Op Left Knee Exam: Gait Abnormality: Normal Knee ROM: Extension:0 Flexion: 110 Alignment: 0-4 degrees Neutral Stability: A/P Translation <5mm Varus (lateral stability) <5mm Valgus (medial stability) <5mm Extension La degrees or less Patella Tracking: Normal Pulses Palpable: Left PT:Yes Left DP:Yes Motor/Sensory: Distal Motor: Normal Distal Sensory: Normal Quadriceps Strength:5 Comments: Comes in without antalgia. Without an effusion. No medial joint line tenderness. No lateral joint line tenderness Stable to varus/valgus stress. Negative Anterior/posterior drawer Neg Lachmans with a firm endpoint. Normal sensation and motor function distally. Neurologic Exam Mental Status Oriented to person, place, and time. RADIOLOGICAL STUDIES: 3V of the knee were taken today and were reviewed, showing increased radiolucency over the medial aspect of the tibial plate, increasing from prior images. The right sided implant appears well without any significant change from prior exam. ASSESSMENT/PLAN: The patient was seen and the plan was formulated in conjunction with Dr. Delcid. Stacy Knight is a 61 y.o. female presents to the clinic with a history of bilateral TKA performed 10 years ago she appears to have probable loosening of the left tibial component with increased lucency associated when compared to previous images. She is without any acute complaints or changes, andremains mostly asymptomatic. We discussed this with the patient and her significant other. I told her that there does appear to be some evidence of lucency, though she states she has no pain associated with this. We talked about the options including continued observation vs. surgical intervention.I talked to her about the potential problems of not intervening. I told her we would follow her closely seeing her annually to see how she is doing. She does understand that ultimately she will likely have to have something done. She understands that at this pointit would probably be a revision of the tibial component with a long stem, and I talked with her about that. She will call with any questions or concerns or if she has any pain or swelling. We reviewed the usual precautions regarding antibiotic prophylaxis prior to dental interventions and skin care and treatment of infections. documented in this encounter Plan of Treatment Upcoming Encounters Date Type Department Care Team (Late st Contact Info) Description 03/04/2024 12:00 PM EST Office Visit [place] [address] Jordyn Francisco MD [facility] [place]STET[place] [address] documented as of this encounter Visit Diagnoses Diagnosis S/P TKR (total knee replacement) using cement- Primary Knee joint replacement by other means documented in this encounter Care Teams Wort Extractor Relationship Specialty Start Date End Date Rashawn Bryant MD [address] [place] [address] [place] [address] PCP - General 11/03/10 01/13/15 documented as of this encounter
--- OUTSIDE RECORDS SUMMARY | 2024-02-27 19:38 | XMS_ITS | Encounter Summary ---
Author Organization [facility] [place] [address] Care Team Providers Care Marine Structural Welder Name Role Phone Gerardo Barnes MD Primary Care Provider [phone] Encounter Details Date Type Department Care Team (Late st Contact Info) Description 08/05/2010 Orders [place] [address] Carlos Delcid MD [facility] [address] Arthroplasty, knee (Primary Dx) Social History Tobacco Use [...] PM EST Office Visit [place] [address] Jordyn Francisco MD [facility] [place] [address] documented as of this encounter Results * XR knee bilateral1 or 2 view (11/07/2010 10:49 AM EDT) Anatomical Region Laterality Modality Knee Bilateral Radiographic Susan ging 11/07/2010 10:4 9 AM EDT Narrative 11/08/2010 8:54 AM EDT BOTH KNEES: CLINICAL HISTORY: ??Bilateral arthroplasties. TECHNIQUE: ??Three views. COMPARISON: ??Compared to 09/23/09. FINDINGS: ??The bones are under mineralized. No change in the appearance of the bilateral knee arthroplasties. No complications. Procedure Note Mookie Smith MD - 11/08/2010 BOTH KNEES: CLINICAL HISTORY: Bilateral arthroplasties. TECHNIQUE: Three views. COMPARISON: Compared to 09/23/09. FINDINGS: The bones are under mineralized. No change in the appearance ofthe bilateral knee arthroplasties. No complications. Carlos Delcid MD IMG DX ORDERABLES documented in this encounter Visit Diagnoses Diagnosis Arthroplasty, knee- Primary Knee joint replacement by other means Arthroplasty, knee Knee joint replacement by other means documented in this encounter Care Teams Marine Structural Welder Relationship Specialty Start Date End Date Gerardo Barnes MD PCP - General 03/01/10 11/02/10 documented as of this encounter
--- OUTSIDE RECORDS SUMMARY | 2024-02-27 19:38 | XMS_ITS | Encounter Summary ---
Author Organization [facility] Address [facility] [place] [address] Care Team Providers Care Turbine Operator Name Role Phone Rashawn Bryant MD Primary Care Provider [phone] Reason for Visit * Reason Comments Aftercare Of [facility] S/P LEFT KNEE NEW PA IN 06/27/01 B/L TKA Encounter Details Date Type Department Care Team (Late st Contact Info) Description 05/23/2012 3:35 PM EST Office [place] [address] Carlos Delcid MD [facility] [place] [address] S/P TKR (total knee replacement) using cement; Knee pain, left; Prosthetic joint loosening Discharge Disposition: Home Social History Tobacco Use [...] Sign Reading Time Taken Comments Blood Pressure 130/82 05/23/2012 3:47 PM EST Pulse 100 05/23/2012 3:47 PM EST Temperature - - Respiratory Rate - - Oxygen Saturation - - Inhaled Oxygen Concentration - - Weight 113.4 kg (250 lb) 05/23/2012 3:47 PM EST Height 157.5 cm (5' 2) 05/23/2012 3:47 PM EST Body Mass Index 45.73 05/23/2012 3:47 PM EST documented in this encounter Patient Instructions * Patient Instructions* Shazia Ayers - 05/23/2012 3:54 PM EST Welcome to [employer], your secure online access to your electronic medical record at [facility]. Using [employer] you will be able to send messages to your providers, view your test results, renew prescriptions, schedule appointments, and much more. Follow these instructions to enter your personal [employer] account for the first time: 1. Start your internet browser and type [email or web address] into the address bar. 2. In the New User box on the right-hand side of the Welcome page click the link that states, ???I have an activation code.?? 3. On the Identification page, follow these steps: a) Enter your [employer] activation code: [email or web address] b) Expires: 07/07/2012 3:54 PM IMPORTANT: This Activation Code will on the above mentioned date. If you do not sign up for [employer] by this date, you will need to request another activation code. c) Enter your date of , using the calendar tool provided. d) Enter your Zip code. e) Select ???submit?? to go to the next page. 4. On the Create Account page, follow these steps: a) Create a [employer] username. This can???t be changed, so choose one you won???t forget. b) Create a password that???s at least six characters long, and that contains at least two numbers.Your password can be changed at any time. Confirm your password by entering it once more. c) Enter your email address. This will be used to alert you to new information. Confirm your email address by entering it once more. d) Enter your security question. This will be used if you forget your password. e) Enter your security answer. Confirm your security answer by entering it once more. f) Select ???submit?? to view your electronic medical record. If you have any questions about [employer] or your Access Code, please call for [place], for [place] or for [place]. If you need technical support, please e-mail [email or web address]. Remember, [employer] is NOT for urgent needs! Always dial 911 for medical emergencies. documented in this encounter Progress Notes * Michael Souza PA - 05/23/2012 3:46 PM EST PATIENT NAME: Stacy Knight AGE: 62 y.o. MR#: [id number] SURGERY DATE: 06/27/2001 Actual Procedures: TOTAL KNEE REPLACEMENT-BILATERAL /PFC STABILIZED MODUL DATE OF VISIT: 05/23/2012 STAFF: The patient was seen and the plan was formulated in conjunction with Dr. Delcid. CHIEF COMPLAINT: left knee pain s/p bilateral TKA HISTORY OF PRESENT ILLNESS Ms. Knight a 62 y.o. year old femalecomes into clinic today for left kneepain with a history of bilateral TKA performed over 10 years ago. She reports intermittent pinchingsensation over the lateral aspect and at times she has medial tibial plateau area. She has no pain when using a tens unit over the knee. Her pain severity is 1-2/10, it doesn't bother her unless she falls. She has fallen twice this week. She does not fall due to knee pain, it is usually due to tripping over things on the ground. She has no pain from sitting to standing. She has no snapping or clicking of the knee. She is unable to cross her left leg onto the right due to pinching laterally. ROS: without fever, chills, nausea or vomiting. Physical Exam Weight 113.399 kg (250 lb). Constitutional: She is oriented to person, place, [...] were taken today and were reviewed, showing continued radiolucency over the medial aspect of the tibial plate on the left, increasing from prior images. The rightsided implant appears well without any significant change from prior exam. ASSESSMENT/PLAN: The patient was seen and the plan was formulated in conjunction with Dr. Delcid. Stacy Knight is a 62 y.o. female presents to the clinic with a history of bilateral TKA performed 10 years ago, the patient stands with mild intermittent left knee pain. Again we discussed that it appears she has probable loosening of the left tibial component with increased lucency associated when compared to previous images. We discussed that given the degree of lucency, we discussed that her prosthesis will eventually fail. She understands she would probably undergo a revision of the tibialcomponent with a long stem, and I talked with her about that. The patient would like to wait until her September graduation to have the surgery, unless her pain worsens or starts to have impairment of her function. We will plan to proceed with surgery at the end of September, and we will talk to the OR schedulers to book the surgery. 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
--- OUTSIDE RECORDS SUMMARY | 2024-02-27 19:38 | XMS_ITS | Encounter Summary ---
Author Organization [facility] [place] [address] Care Team Providers Care Rotary Kiln Operator Name Role Phone Rashawn Bryant MD Primary Care Provider [phone] Encounter Details Date Type Department Care Team (Late st Contact Info) Description 10/04/2012 Orders [place] [phone] Carlos Delcid MD [facility] [place] [address] H/O total knee replacement (Primary Dx) Social History Tobacco Use Types [...] PM EST Office Visit [place] [phone] Jordyn Francisco MD [facility] OBSTETRICS [place] [address] documented as of this encounter Results * XR TKA FIRST [...] encounter Visit Diagnoses Diagnosis H/O total knee replacement- Primary Knee joint replacement by other means H/O total knee replacement Knee joint replacement by other means documented in this encounter Care Teams Rotary Kiln Operator Relationship Specialty Start Date End Date Rashawn Bryant MD [address] [place] [address] [place] [address] PCP - General 11/03/10 01/13/15 documented as of this encounter
--- OUTSIDE RECORDS SUMMARY | 2024-02-27 19:38 | XMS_ITS | Encounter Summary ---
Author Organization [facility] Address [facility] [place] [address] Care Team Providers Care Early Childhood Assistant Name Role Phone Rashawn Bryant MD Primary Care Provider [phone] Encounter Details Date Type Department Care Team (Latest Contact Info) Description 01/25/2012 10:28 AM EDT - 01/25/2012 11:59 PM EDT Hospital Encounter XRay at [address] [place] [address] H/O total knee replacement Social History Tobacco [...] Sig Dispensed Refills Start Date End Date UNABLE TO FIND Take by mouth 3 times daily. Digest-All 09/14/2010 09/26/2012 oxybutynin (DITROPAN) 5 mg tablet Take 1 tablet by mouth 3 times daily. 90 tablet 11 09/14/2010 05/23/2012 Trospium (SANCTURA XR) 60 mg Cp24 Take 60 mg by mouth daily. 30 tablet 11 09/14/2010 05/23/2012 NAPROXEN ORAL Take 220 mg by mouth 2 times daily. 09/13/2010 11/13/2012 verapamil (CALAN) 120 mg tablet Take 120 mg by mouth daily. 09/13/2010 09/26/2012 EMU [id number] AP TOP 09/23/2009 05/23/2012 documented as of this encounter Plan of Treatment Upcoming Encounters Date Type Department Care Team (Late st Contact Info) Description 03/04/2024 12:00 PM EST Office Visit [place] [address] Jordyn Francisco MD [facility] DR OBSTETRICS [place] [address] documented as of this encounter Procedures Procedure Name Priority Date/Time Associated Diagnosis Comments XR KNEE AP AND LAT BILAT Routine 01/25/2012 10:50 AM EDT documented in this encounter Results * XR KNEE BILATERAL1 OR 2 VIEW (01/25/2012 10:50 AM EDT) Anatomical Region Laterality Modality Knee Bilateral Radiographic Susan ging 01/25/2012 10:5 0 AM EDT Narrative 01/25/2012 2:28 PM EDT Examination KNEE BILATERAL 1 OR 2 VIEWS/BILAT Clinical History BILAT TKA'S, DOS 06/27/01 Comparison 11/07/2010. Technique Findings The bones are osteopenic and demineralized. ??The appearance of the right and left total knee arthroplasties are not significantly changed. ??There is significant radiolucency of the medial tibial plateau on the left but is not changed in appearance since November 2010 examination. ??There is no evidence for peripheral increased radiolucency to suggest loosening or infection. Radiolucency of lateral tibial plateau unchanged in its appearance. Impression Stable appearance to bilateral total knee arthroplasties. ??Underlying bones are osteopenic and demineralized with more significant demineralization noted at the medial tibial plateau. Procedure Note Swapna Castro MD - 01/25/2012 Examination KNEE BILATERAL 1 OR 2 VIEWS/BILAT Clinical History BILAT TKA'S, DOS 06/27/01 Comparison 11/07/2010. Technique Findings The bones are osteopenic and demineralized. The appearance of the rightand left total knee arthroplasties are not significantly changed. There is significant radiolucency of the medial tibial plateau on the left but isnot changed in appearance since November 2010 examination. There is no evidencefor peripheral increased radiolucency to suggest loosening or infection. Radiolucency of lateral tibial plateau unchanged in its appearance. Impression Stable appearance to bilateral total knee arthroplasties. Underlyingbones are osteopenic and demineralized with more significant demineralization notedat the medial tibial plateau. Carols Delcid MD IMG DX ORDERABLES documented in this encounter Visit Diagnoses Diagnosis H/O total knee replacement Knee joint replacement by other means documented in this encounter Care Teams Early Childhood Assistant Relationship Specialty Start Date End Date Rashawn Bryant MD [address] [place] [address] [place] [address] PCP - General 11/03/10 01/13/15 documented as of this encounter
--- OUTSIDE RECORDS SUMMARY | 2024-02-27 19:38 | XMS_ITS | Encounter Summary ---
Author [facility] [place] [address] Care Team Providers Care Manager Transportation Name Role Phone Rashawn Bryant MD Primary Care Provider [phone] Encounter Details Date Type Department Care Team (Late st Contact Info) Description 10/16/2012 Telephone [place] [phone] FriendRachna LPN Social History Tobacco Use Types Packs/Day Years [...] encounter Miscellaneous Notes * Telephone Encounter - Rachna Retana LPN - 10/16/2012 10:13 AM EDT Pt called and asked if she could have her Pre-Admission testing and blood work done closer to home.Spoke with the OR schedulers who state that it PAT has to be done here and the blood work will be done with the PAT. Called pt back who was very upset and was yelling at me about why it has to be done here, when she could get it all done closer to home. I told her it was part of the surgery processand it needed to be done here. She said fine and hung up on me. documented in this encounter Plan of Treatment Upcoming Encounters Date Type Department Care Team (Late st Contact Info) Description 03/04/2024 12:00 PM EST Office Visit Gy[place] [address] Jordyn Francisco MD [facility] [place] [address] documented as of this encounter Visit Diagnoses Not on filedocumented in this encounter Care Teams Manager Transportation Relationship Specialty Start Date End Date Rashawn Bryant MD [address] [place] [address] [place] [address] PCP - General 11/03/10 01/13/15 documented as of this encounter
--- OUTSIDE RECORDS SUMMARY | 2024-02-27 19:38 | XMS_ITS | Encounter Summary ---
Author Organization [facility] [place] [address] Care Team Providers Care Patternmaker Pressure Cast Name Role Phone Rashawn Bryant MD Primary Care Provider [phone] Encounter Details Date Type Department Care Team (Late st Contact Info) Description 09/04/2012 External Results [place] [address] Social History Tobacco Use Types Packs/Day Years [...] PM EST Office Visit [place] [phone] Jordyn Francisco MD [facility] [place] [address] documented as of this encounter Visit Diagnoses Not on filedocumented in this encounter Care Teams Patternmaker Pressure Cast Relationship Specialty Start Date End Date Rashawn Bryant MD [address] [place] [address] [place] [address] PCP - General 11/03/10 01/13/15 documented as of this encounter
--- OUTSIDE RECORDS SUMMARY | 2024-02-27 19:38 | XMS_ITS | Encounter Summary ---
Author Organization [facility] [address] Care Team Providers Care Construction Trench Digger Name Role Phone Gerardo Barnes MD Primary Care Provider [phone] Reason for Visit * Reason Comments Follow-up urinary urgency Encounter Details Date Type Department Care Team (Late st Contact Info) Description 09/14/2010 4:00 PM EDT [place] [address] Corry Hamilton APRN [facility] [place] [address] Incontinence of urine (Primary Dx) Discharge Disposition: Home Social History Tobacco Use Types Packs/Day Years Used Date Smoking Tobacco: Never Assessed Sex and Gender Information Value Date Recorded Sex Assigned at Not on file Gender Identity Not on file Sexual Orientation Not on file documented as of this encounter Last Filed Vital Signs Vital Sign Reading Time Taken Comments Blood Pressure 107/64 09/14/2010 4:27 PM EDT Pulse 74 09/14/2010 4:27 PM EDT Temperature - - Respiratory Rate - - Oxygen Saturation - - Inhaled Oxygen Concentration - - Weight 108.9 kg (240 lb) 09/14/2010 4:27 PM EDT Height - - Body Mass Index - - documented in this encounter Progress Notes * Corry Hamilton APRN - 09/14/2010 4:36 PM EDT History of Present Illness: Ms. Stacy Knight is a 60 year old woman here for follow up of urge and mild BRUNO. She was last seen in 09/16. She is on oxybutynin 5 mg po three times a day and sanctura xr 60 mg. She feels about the same. Vesicare was not approved. She tried taking the oxybutynin 10 mg po three times a day which helped her more. She tried PT once but only one time Voids q 6 hours during the day-not bothersome, but she has urge on the way to the bathroom and can leak with that. 0-1 times at night. Wears 0 pads per day now. Leaks only with BRUNO when has cold/bronchitis. Her symptoms are tolerable for her. She drinks 30-40 oz of fluids per day recently. Generally drinks 2 glasses of water, 1/2 glass of milk. No recent UTIs and no symptoms of one today. bowels ok She is walking 2-3 miles per day and is losing weight. 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 Pleasant woman in no acute distress. Abdomen: The abdomen is soft, obese, non tender with no masses. There is no hepatosplenomegaly. Thebladder is not palpable. There is no CV angle tenderness. Pelvic/ Rectal: deferred PVR with bladder scanner: 80 cc with scanner 07/17: 120 cc with scanner 04/18: 35 cc. U/A: negative Impression: Urge incontinence with mild stress incontinence. Plan: We really spent most of our time rediscussing the behavioral therapies. We discussed timed and double voiding q 2-3 hours, hydration with water, moderation of bladder irritants, moderation of bowels.She is voiding too infrequently and is drinking too little water at this time. She will work on these Discussed PT for pelvic floor therapy/stengthening exercises. Pt would like to wait. will continue her on oxybutynin 5 mg po three times a day and sanctura 60 mg po xr once daily. However, emphasized that if she is doing the behavioral therapies, she may be able to cut back on her medication. Relayed that she could cut out the one with the largest copay first, and then we could tryto taper her down on the other medication (sanctura first likely, then possibly taper off tid of oxybutynin). She would be interested in this as her mouth is dry. Will see her back in 12 months sooner with concerns. MILVIA Hudson documented in this encounter Plan of Treatment Upcoming Encounters Date Type Department Care Team (Late st Contact Info) Description 03/04/2024 12:00 PM EST Office Visit [place] [address] Jordyn Francisco MD [facility] DR OBSTETRICS [place] [address] documented as of this encounter Visit Diagnoses Diagnosis Incontinence of urine- Primary Unspecified urinary incontinence documented in this encounter Care Teams Construction Trench Digger Relationship Specialty Start Date End Date Gerardo Barnes MD PCP - General 03/01/10 11/02/10 documented as of this encounter
--- OUTSIDE RECORDS SUMMARY | 2024-02-27 19:38 | XMS_ITS | Encounter Summary ---
Author Organization [facility] [place] [address] Care Team Providers Care Ultrasonic Tester Name Role Phone Rashawn Bryant MD Primary Care Provider [phone] Encounter Details Date Type Department Care Team (Late st Contact Info) Description 10/25/2012 External [place] [phone] Provider, Scanning Social History Tobacco Use Types [...] Office Visit [place] [phone] Jordyn Francisco MD [facility] [place]ST[place] [address] documented as of this encounter Procedures Procedure Name Priority Date/Time Associated Diagnosis Comments EKG 12-LEAD Routine 10/23/2012 documented in this encounter Results * EKG 12 Lead (10/23/2012) Scanning Provider ECG ORDERABLES documented in this encounter Visit Diagnoses Not on filedocumented in this encounter Care Teams Ultrasonic Tester Relationship Specialty Start Date End Date Rashawn Bryant MD [address] [place] [address] [place] [address] PCP - General 11/03/10 01/13/15 documented as of this encounter
--- OUTSIDE RECORDS SUMMARY | 2024-02-27 19:38 | XMS_ITS | Encounter Summary ---
Author Organization [facility] [place] [address] Care Team Providers Care Meteorology Instructor Name Role Phone Rashawn Bryant MD Primary Care Provider [phone] Reason for Visit * Reason Comments Follow-up Encounter Details Date Type Department Care Team (Late st Contact Info) Description 12/05/2010 3:45 PM EDT [place] [address] Corry Hamilton APRN [facility] [place] [address] Incontinence of urine (Primary Dx) Discharge Disposition: Home Social History Tobacco Use Types Packs/Day Years Used Date Smoking Tobacco: Never Alcohol Use Standard Drinks/Week Comments No 0 (1 standard drink = 0.6 oz pur e alcohol) Sex and Gender Information Value Date Recorded Sex Assigned at Not on file Gender Identity Not on file Sexual Orientation Not on file documented as of this encounter Last Filed Vital Signs Vital Sign Reading Time Taken Comments Blood Pressure 118/70 12/05/2010 4:22 PM EDT Pulse 85 12/05/2010 4:22 PM EDT Temperature - - Respiratory Rate - - Oxygen Saturation - - Inhaled Oxygen Concentration - - Weight 127 kg (280 lb) 12/05/2010 4:22 PM EDT Height 157.5 cm (5' 2) 12/05/2010 4:22 PM EDT Body Mass Index 51.21 12/05/2010 4:22 PM EDT documented in this encounter Progress Notes * Corry Hamilton APRN - 12/05/2010 4:27 PM EDT History of Present Illness: Ms. Stacy Knight is a 60 year old woman here for follow up of urge and mild BRUNO. She was last seen in 09/17. She has been on oxybutynin 5 mg po three times a day and sanctura xr 60 mg. She is now having difficulty getting her sanctura refilled as her insurance will not cover it. She has not been taking the oxybutynin as this has been making her mouth too dry. Her dentist states this has been ruining her mouth. She can't really tell if she is better on the oxybutynin. Vesicare was not approved by insurance. She tried PT once but only one time She is most bothered by urgency and incontinence. She has urge incontinence. She rarely leaks with stress maneuvers-only with a cold. Voids q 3-4 hours during the day-not bothersome, 0 times at night. Wears 0 pads per day now. She drinks 30-40 oz of fluids per day recently. Generally drinks 2 glasses of water, 1 glass of iced tea. No recent UTIs and no symptoms of [...] normal. Pleasant woman in no acute distress. 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 There is no hepatosplenomegaly. Thebladder is not palpable. There is no CV angle tenderness. Pelvic/ Rectal: deferred PVR with bladder scanner:35 09/17: 80 cc with scanner 07/17: 120 cc with scanner 04/18: 35 cc. U/A: negative Impression: Urge incontinence with mild stress incontinence. Plan: We really spent most of our time rediscussing the behavioral therapies. We discussed timed and double voiding q 2-3 hours as again she is voiding every 3-4 hours, hydration with water, moderation of bladder irritants, moderation of bowels. She is voiding too infrequently and is drinking too little water at this time. She will work on these. Handouts were given again today Discussed her options. She would like a med for her urge, but needs to find balance with her oral dryness. She will check with her insurance to see what they cover. She will stay off the oxybutynin at this time. She will call me tomorrow and let me know what for and to what pharmacy I could fax a script. Will see her back in 3 months sooner with concerns. MILVIA Hudson documented in this encounter Plan of Treatment Upcoming Encounters Date Type Department Care Team (Late st Contact Info) Description 03/04/2024 12:00 PM EST Office Visit [place] [address] Jordyn Francisco MD [facility] [place] [address] documented as of this encounter Visit Diagnoses Diagnosis Incontinence of urine- Primary Unspecified urinary incontinence documented in this encounter Care Teams Meteorology Instructor Relationship Specialty Start Date End Date Rahsawn Bryant MD [address] [place] [address] [place] [address] PCP - General 11/03/10 01/13/15 documented as of this encounter
--- OUTSIDE RECORDS SUMMARY | 2024-02-27 19:38 | XMS_ITS | Encounter Summary ---
[facility] [place] [address] Care Team Providers Care Booster Pump Oiler Name Role Phone Rashawn Bryant MD Primary Care Provider [phone] Encounter Details Date Type Department Care Team (Late st Contact Info) Description 11/29/2011 Orders [place] [phone] Carlos Delcid MD [facility] DR [place] [address] H/O total knee replacement (Primary Dx) Social [...] PM EST Office Visit [place] [phone] Jordyn Francisco MD [facility] OBSTETRICS [place] [address] documented as of this encounter Visit Diagnoses Diagnosis H/O total knee replacement- Primary Knee joint replacement by other means documented in this encounter Care Teams Booster Pump Oiler Relationship Specialty Start Date End Date Rashawn Bryant MD [address] [place] [address] [place] [address] PCP - General 11/03/10 01/13/15 documented as of this encounter
--- OUTSIDE RECORDS SUMMARY | 2024-02-27 19:38 | XMS_ITS | Encounter Summary ---
[place] [address] Care Team Providers Care Valve Lapper Name Role Phone Rashawn Bryant MD Primary Care Provider [phone] Encounter Details Date Type Department Care Team (Latest Contact Info) Description 09/26/2012 12:00 PM EDT Clinical Support [place] [phone] DJD (degenerative joint disease) of knee Social [...] Taken Comments Blood Pressure - - Pulse 101 09/26/2012 12:53 PM EDT Temperature - - Respiratory Rate - - Oxygen Saturation 99% 09/26/2012 12:53 PM EDT Inhaled Oxygen Concentration - - Weight 113.9 kg (251 lb) 09/26/2012 12:53 PM EDT Height 157.5 cm (5' 2) 09/26/2012 12:53 PM EDT Body Mass Index 45.91 09/26/2012 12:53 PM EDT documented in this encounter Progress Notes * Cheyenne Crawford RN - 09/26/2012 1:29 PM EDT PAT Questionnaire reviewed with patient while in Pre-Admission Testing for upcoming surgery date of06/. States answered question of difficulty with breathing tube incorrectly , that has never had a problem with breathing tube insertion for surgery. Pre-operative folder reviewed with patient. Patient verbalizes good understanding of all information reviewed. Labwork and EKG performed while in Pre-Admission Testing. documented in this encounter Plan of Treatment Upcoming Encounters Date Type Department Care Team (Late st Contact Info) Description 03/04/2024 12:00 PM EST Office Visit Gynecology [place] [address] Jordyn Francisco MD [facility] DR [place] [address] documented as of this encounter Visit Diagnoses Diagnosis DJD (degenerative joint disease) of knee Osteoarthrosis, unspecified whether generalized or localized, lower leg documented in this encounter Care Teams Valve Lapper Relationship Specialty Start Date End Date Rashawn Bryant MD [address] [place] [address] [place] [id number] PCP - General 11/03/10 01/13/15 documented as of this encounter
--- OUTSIDE RECORDS SUMMARY | 2024-02-27 19:38 | XMS_ITS | Encounter Summary ---
Author Organization [facility] [place] [address] Care Team Providers Care Packing And Final Assembly Supervisor Name Role Phone Rashawn Bryant MD Primary Care Provider [phone] Reason for Visit * Reason Comments Left Knee Pain knee pain Encounter Details Date Type Department Care Team (Late st Contact Info) Description 09/26/2012 1:20 PM EDT Office [place] [address] Carlos Delcid MD [facility] [place] [address] DJD (degenerative joint disease) of knee (Primary Dx); S/P TKR (total knee replacement) using cement Discharge Disposition: Home Social History Tobacco Use [...] Sign Reading Time Taken Comments Blood Pressure 143/84 09/26/2012 2:20 PM EDT Pulse 95 09/26/2012 2:20 PM EDT Temperature 36.3 ??C (97.3 ??F) 09/26/2012 2:20 PM ED T Respiratory Rate - - Oxygen Saturation - - Inhaled Oxygen Concentration - - Weight 113.9 kg (251 lb) 09/26/2012 2:20 PM EDT Height 157.5 cm (5' 2) 09/26/2012 2:20 PM EDT Body Mass Index 45.91 09/26/2012 2:20 PM EDT documented in this encounter Progress Notes * Carlos Delcid MD - 09/26/2012 2:36 PM EDT HISTORY OF PRESENT ILLNESS: Very pleasant 62 y.o. year-old female with severe osteoarthritis of the knee. Given the severe nature of the arthritis and disability, aswell as the failure of conservative treatment measures, the patient has decided to proceed with revision left total knee arthroplasty. Please refer to my previous note for the full history. The patient reports that the pain has not changed and has actually gotten a bit worse. She reviewedthe shared decision making video and is confident in the decision to go forward with total joint arthroplasty. She has received the TKA binder and reviewed the contents. PHYSICAL EXAMINATION: Exam is previously documented in my note and is unchanged. Preop History and Physical completed by PCP. RELEVANT LAB STUDIES: Lab Results Component Value Date WBC 7.2 09/26/2012 HGB 13.4 09/26/2012 HCT 40.3 09/26/2012 PLATELET 235 09/26/2012 CREATININE 0.58* 09/26/2012 BUN 13 09/26/2012 NA 139 09/26/2012 K 3.8 09/26/2012 INR 1.0 09/26/2012 Estimated Creatinine Clearance: 121.6 ml/min (based on Cr of 0.58). Urine: type and screen done. DVT Risk Assessment Screening (TKR Doc flowsheet )reviewed: - Hx of DVT/ PE ? [x} No - Hypercoagulable State? [x} No - Genetic predisposition for DVT/PE? [x} No - Hx. Of Bleeding disorder?[x} No - Hx of GIB? [x} No - Hx of Hemorrhagic stroke? [x} No - Currently on lifelong coumadin?[x} No - Unable to tolerate coumadin? [x} No ASSESSMENT/PLAN: A 62 y.o. year-old female who presents for preoperative appointment today. The risks and benefits of the procedure were outlined in detail including but not limited to bleeding ,infection ,blood clots, scar formation, patellar dislocation, persistent pain, stiffness, failure, wear or loosening of components, fracture, nerve palsy, injury to blood vessel, skin numbness, anestheticrisks or medical complications and need for additional surgery. I used total knee implants to demonstrate how we perform the procedure and all questions were answered. I did review the history and physical today which says the patient is cleared for surgery and has no specific recommendations for further testing. I reviewed the labs and there were no issues with those. Informed consent was signed in the clinic today. We discussed DNR status and the patient is a full code. We will plan to use rivoroxiban for 12 dayspostoperatively for DVT prophylaxis. We discussed the possible discharge scenarios including going home versus needing to go to a rehab facility. We will make that determination after seeing how well mobilization is progressing. documented in this encounter Plan of Treatment Upcoming Encounters Date Type Department Care Team (Late st Contact Info) Description 03/04/2024 12:00 PM EST Office Visit [place] [address] Jordyn Francisco MD [facility] DR OBSTETRICS [place] [address] documented as of this encounter Procedures Procedure Name Priority Date/Time Associated Diagnosis Comments URINE CULTURE Routine 09/26/2012 3:41 PM EDT DJD (degenerative joint disease) of knee URINALYSIS WITH REFLEX CULTURE Routine 09/26/2012 3:19 PM EDT DJD (degenerative joint disease) of knee DIFFERENTIAL, AUTOMATED Routine 09/26/2012 1:32 PM EDT TYPE AND SCREEN, SDP (FUTURE SURGERY, [facility] SAME DAY PROGRAM ONLY) Routine 09/26/2012 1:32 PM EDT DJD (degenerative joint disease) of knee ABO/RH TYPING Routine 09/26/2012 1:32 PM EDT DJD (degenerative joint disease) of knee PROTHROMBIN TIME Routine 09/26/2012 1:32 PM EDT DJD (degenerative joint disease) of knee CBC (WITH DIFF) Routine 09/26/2012 1:32 PM EDT DJD (degenerative joint disease) of knee ANTIBODY SCREEN Routine 09/26/2012 1:32 PM EDT DJD (degenerative joint disease) of knee BASIC METABOLIC PANEL Routine 09/26/2012 1:32 PM EDT DJD (degenerative joint disease) of knee documented in this encounter Results * Urine culture Clean Catch Urine (09/26/2012 3:41 PM EDT) Urine Culture ? Patient Name: SURYA KNIGHT ? Ordered By: CARLOS DELCID ? MR#: [id number] ?LOC: ??3D ? /Sex: ??1950 (62 years), ? Female ? PROCEDURE: Urine Culture ?SOURCE: U CC ? COLLECTED: 09/26/2012 15:41 ? STARTED: 09/26/2012 15:41 ? FINAL REPORT ? Final Report ? Verified:2012 15:06 ? 1,000-9,000 cfu/ml Gram Positive organisms , probable contaminant ? CERNER MILLENNIUM Urine specimen obtained by clean catch procedure (specimen) 09/26/2012 3:41 PM EDT 09/26/2012 3:41 PM EDT Narrative Resulting Agency Comment Spec In Lab Carlos Delcid MD MICROBIOLOGY - GENER AL ORDERABLES CERNER MILLENNIUM * (ABNORMAL) Urinalysis with microscopic (09/26/2012 3:19 PM EDT) Glucose, Urine Dipstick Negative Negative mg/dL CERNER MILLENNIUM Protein, Urine Dipstick Negative mg/dL CERNER MILLENNIUM Bilirubin, Urine Dipstick Negative Negative mg/dL CERNER MILLENNIUM Urobilinogen, Urine Dipstick Normal mg/dL CERNER MILLENNIUM pH, Urn (dipstick) 6.0 5.0 - 8.0 CERNER MILLENNIUM Blood, Urine Dipstick Negative mg/dL CERNER MILLENNIUM Ketone, Urine Dipstick Negative mg/dL CERNER MILLENNIUM Nitrite, Urine Dipstick Negative CERNER MILLENNIUM Leukocytes, Urine Dipstick Negative mcL CERNER MILLENNIUM Appearance, Urine Dipstick Clear Clear CERNER MILLENNIUM Specific [place] Urine Automated 1.016 1.002 - 1.030 CERNER MILLENNIUM Color, Urine Dipstick Light Yellow Yellow CERNER MILLENNIUM RBC, Urine <1 0 - 4 /HPF CERNER MILLENNIUM WBC, Urine <1 0 - 5 /HPF CERNER MILLENNIUM Bacteria, Urine Rare(A) None /HPF CERN ER MILLENNIUM Squamous Epithelial Cells, Urine 1 <=4 /HPF CERNER MILLENNIUM Transitional Epithelial Cells, Urine <1 <=1 /HPF CERNER MILLENNIUM Urine specimen (specimen) 09/26/2012 3:19 PM EDT 09/26/2012 3:19 PM EDT Narrative Resulting Agency Comment Spec In Lab Carlos Delcid MD URINE ORDERABLES CERNER MILLENNIUM * Differential, Automated (09/26/2012 1:32 PM EDT) Neutrophil % 64.6 34.0 - 71.0 % CERNER MILLENNIUM Neutrophil Absolute 4.62 1.50 - 6.30 x10(3)/mcL CERNER MILLENNIUM Lymph % 28.9 19.0 - 53.0 % CERNER MILLENNIUM Lymphocytes Abs 2.1 1.0 - 3.6 x10(3)/mcL CERNER MILLENNIUM Monocyte % 4.7 4.0 - 13.0 % CERNER MILLENNIUM Monocyte Abs 0.3 0.2 - 1.0 x10(3)/mcL CERNER MILLENNIUM Eos % 1.5 0.0 - 7.0 % CERNER MILLENNIUM Eosinophils Abs 0.1 0.0 - 0.5 x10(3)/mcL CERNER MILLENNIUM Basophil % 0.3 0.0 - 2.0 % CERNER MILLENNIUM Baso Absolute 0.0 0.0 - 0.2 x10(3)/mcL CERNER MILLENNIUM Immature Gran % 0.00 0.00 - 0.66 % CERNER MILLENNIUM Comment: Immature granulocytes(IG's)percentage and absolute count will include metamyelocytes, myelocytes, and promyelocytes. Blood smears from CBCs yielding IG's will be scanned manually for concordance. If this scan disagrees with the automated IG or if promyelocytes are noted, a manual differential will be performed. Immature Gran Absolute 0.00 0.00 - 0.05 x10(3)/mcL CERNER MILLENNIUM Blood specimen (specimen) 09/26/2012 1:32 PM EDT 09/26/2012 1:37 PM EDT Carlos Delcid MD HEMATOLOGY ORDERABLE S KEMI PATELENNIUM * Antibody screen (09/26/2012 1:32 PM EDT) Ab Screen Interp Negative CERNER AMANDAENNIUM Expires at [id number] on: [id number] CERNER MILLENNIUM Comment: Corrected from 10/03/12 00:00:00 EDT [Unknown] on 10/01/12 08:11:46 EDT by Soni Saavedra. Blood specimen (specimen) 09/26/2012 1:32 PM EDT 09/26/2012 1:33 PM EDT Narrative Resulting Agency Comment Spec In Lab Carlos Delcid MD BLOOD BANK LAB ORDER OCTAVIO Performing Organization Address [facility] de Phone Number KEMI DIANE * ABO/Rh Typing (09/26/2012 1:32 PM EDT) Pathologist [facility] ABORH Type A Neg CERSUZETTE PATELENNIUM Blood specimen (specimen) 09/26/2012 1:32 PM EDT 09/26/2012 1:33 PM EDT Narrative Resulting Agency Comment Spec In Lab Carlos Delcid MD BLOOD BANK LAB ORDER OCTAVIO Performing Organization Address [facility] de Phone Number KEMI ANDERSONIUM * Prothrombin Time (09/26/2012 1:32 PM EDT) Pathologist [facility] Prothrombin Time 13.0 12.0 - 15.0 sec CERNER MILLENNIUM Comment: [facility] Transfusion Committee Guidelines: INR less than 2.0, PTT less than OR equal to 43.5 seconds, or Fibrinogen greater than or equal to 100 mg/dl indicate adequate procoagulant activity for hemostasis in patients without underlying bleeding disorders. International Normalization Ratio 1.0 0.9 - 1.1 CERSUZETTE ANDERSONIUM Blood specimen (specimen) 09/26/2012 1:32 PM EDT 09/26/2012 1:37 PM EDT Narrative Resulting Agency Comment Spec In Lab Carlos Delcid MD HEMATOLOGY ORDERABLE S Performing Organization Address [facility] de Phone Number KEMI DIANE * (ABNORMAL) Basic Metabolic Panel (non-fasting) (09/26/2012 1:32 PM EDT) Glucose 88 60 - 199 mg/dL [facility]ILL[facility] Comment:Diabetes: >=200 mg/d L plus symptoms Blood Urea Nitrogen 13 8 - 18 mg/dL [facility] MILLENNIUM Creatinine 0.58(L) 0.70 - 1.20 mg/dL CERNER MILLENNIUM Comment: Please note that the pediatric reference intervals supplied above were not validated at [facility]. Results from pediatric patients should be interpreted in conjunction to the patient's age, height and muscle mass. Sodium 139 135 - 145 mmol/L CERNER MILLENNIUM Potassium 3.8 3.5 - 5.0 mmol/L CERNER MILLENNIUM Comment: Please note: ??Patients with WBC >100,000 may have falsely elevated Potassium levels. ??For accurate Potassium quantification in these patients send serum separator tube (gold top) for subsequent determinations. ??Contact the Clinical Chemistry Laboratory if there are any questions. Chloride 100 98 - 107 mmol/L CERNER MILLENNIUM Carbon Dioxide 27 22 - 31 mmol/L CERNER MILLENNIUM Anion Gap 12 5 - 15 mmol/L CERNER MILLENNIUM Calcium 9.6 8.5 - 10.5 mg/dL CERNER MILLENNIUM Est [...] internet browser. http://www.nkdep.nih.gov/lab-evaluation.shtml http://www.kidney.org/professionals/ Blood specimen (specimen) 09/26/2012 1:32 PM EDT 09/26/2012 1:37 PM EDT Narrative Resulting Agency Comment Spec In Lab Carlos Delcid MD CHEMISTRY ORDERABLES CERNER MILLENNIUM * (ABNORMAL) CBC (with Diff) (09/26/2012 1:32 PM EDT) White Blood Cell 7.2 4.0 - 10.0 x10(3)/mc L CERNER MILLENNIUM Red Blood Cell 4.23 3.93 - 5.22 x10(6)/mc L CERNER MILLENNIUM Hemoglobin 13.4 11.2 - 15.7 gm/dL CERNER MILLENNIUM Hematocrit 40.3 34.0 - 45.0 % CERNER MILLENNIUM Mean Cell Volume 95.3(H) 79.0 - 94.0 fL CERNER MILLENNIUM Mean Cell Hemoglobin 31.7 26.6 - 32.2 pg CERNER MILLENNIUM Mean Cell Hemoglobin Concentration 33.3 32.0 - 36.5 gm/dL CERNER MILLENNIUM Platelet 235 145 - 370 x10(3)/mc L CERNER MILLENNIUM RDW Standard Deviation 46.4(H) 35.0 - 46.0 fL CERNER MILLENNIUM RDW coefficient of variation 13.4 10.9 - 14.4 % CERNER MILLENNIUM Mean Platelet Volume 11.1 9.0 - 12.0 fL CERNER MILLENNIUM Blood specimen (specimen) 09/26/2012 1:32 PM EDT 09/26/2012 1:37 PM EDT Narrative Resulting Agency Comment Spec In Lab Carlos Delcid MD HEMATOLOGY ORDERABLE S KEMI DIANE documented in this encounter Visit Diagnoses Diagnosis DJD (degenerative joint disease) of knee- Primary Osteoarthrosis, unspecified whether generalized or localized, lower leg S/P TKR (total knee replacement) using cement Knee joint replacement by other means documented in this encounter Administered Medications Inactive Administered Medications - up to 3 most recent administrations Medication Order MAR Action Action Date Dose Rate Site mupirocin (BACTROBAN) 2 % ointment Topical, 2 TIMES DAILY, First dose on Effie 09/26/12 at 2100, Until Discontinued, For 5 days. Dispense tube for self administration. Given 09/26/2012 2:43 PM EDT documented in this encounter Care Teams Packing And Final Assembly Supervisor Relationship Specialty Start Date End Date Rashawn Bryant MD [address] [place] [address] [place] [address] PCP - General 11/03/10 01/13/15 documented as of this encounter
--- OUTSIDE RECORDS SUMMARY | 2024-02-27 19:38 | XMS_ITS | Encounter Summary ---
Author Organization [facility] Address [facility] [place] [address] Care Team Providers Care Armed Custom Protection Officer Name Role Phone Rashawn Bryant MD Primary Care Provider [phone] Reason for Visit * Reason Comments Aftercare Of [facility] SP HARINDER TKA DOS 002 Encounter Details Date Type Department Care Team (Late st Contact Info) Description 11/07/2010 11:15 AM EDT Follow-[place] [phone] CLINIC, Carlos Lassiter MD [facility] [place] [address] S/P TKR (total knee replacement) using cement [...] Sign Reading Time Taken Comments Blood Pressure 137/79 11/07/2010 11:58 AM EDT Pulse 71 11/07/2010 11:58 AM EDT Temperature - - Respiratory Rate - - Oxygen Saturation - - Inhaled Oxygen Concentration - - Weight 119.3 kg (263 lb) 11/07/2010 11:58 AM EDT Height 157.5 cm (5' 2) 11/07/2010 11:58 AM EDT Body Mass Index 48.1 11/07/2010 11:58 AM EDT documented in this encounter Patient Instructions * Patient Instructions* AtifIleana, COOPERATIVE EDUCATION COORDINATOR - 11/07/2010 12:01 PM EDT Welcome to Verold, your secure online access to your electronic medical record at [facility]. Using Verold you will be able to send messages to your providers, view your test results, renew prescriptions, schedule appointments, and much more. Follow these instructions to enter your personal Verold account for the first time: 1. Start your internet browser. Go to [email or web address] [email or web address] and click on the Verold link. 2. Click SIGN UP NOW to go to the NEW MEMBER SIGN UP page. 3. Enter your Verold Access Code exactly as it appears below. (You will not need this access code after you have completed the sign-up process.) ?? Your Verold Access Code: [email or web address] ?? Expires: 12/22/10 12:01 PM ?? IMPORTANT: This Access Code will on the above mentioned date. If you do not sign up before this date, you will need to request a new Access Code number. 4. Enter your Date of (mm/dd/yyyy) and zip code click SUBMIT to go to the next page. 5. Create a Verold identification (ID). This will be your Verold login ID and cannot be changed, so think of one that is secure and easy to remember. 6. Create a password which you can change at any time. Your password must contain six (6) letters and two (2) numbers. 7. Enter your Password Reset Question and Answer. This will be used if you forget your password. 8. Enter your e-mail address. This is used to let you know when new information is available in Verold. 9. Click SIGN UP to complete the process. You can now view your electronic medical record. If you have any questions about Verold or your Access Code, please call for Ryder, for Crandon or for Olivia. If you need technical support, please e-mail [email or web address]. Remember, myD-H is NOT for urgent needs! Always dial 911 for medical emergencies. documented in this encounter Progress Notes * Carlos Delcid MD - 11/07/2010 3:43 PM EDT Subjective: Patient ID: Stacy Knight is a 60 y.o. female. SURGERY DATE: 06/27/2001 Actual Procedures: TOTAL KNEE REPLACEMENT-BILATERAL /PFC STABILIZED MODUL HPI Patient reports that she is doing fairly well in general. She still has complaints of occasional instability and does not know why she falls on occasion. She had been doing quite well recently. She states that she is doing things she wants to do and needs to do. 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 She is very frustrated by that. She feels that she could do more and would like to do more. Medications:These are reviewed and documented in the medical record. Allergies: Again reviewed and documented in the medical record. ROS Objective: Physical Exam Ortho Exam I have made the following determinations: Knee Exam: Left Prior surgery on this joint: Yes Gait Abnormality: Normal Knee ROM: Extension:0 Flexion: 130 Alignment: 0-4 degrees Neutral Stability: A/P Translation <5mm Varus <5mm Valgus <5mm Extension La degrees or less Radiographic evidence of joint damage: [0= normal; 1=minimal ; 2= some osteophytes , some narrowing ; 3= moderate osteophytes, significantnarrowing, mild deformity; 4= large osteophytes, marked narrowing, obvious deformity]: postop Patella Tracking: Normal Skin Integrity: Normal Pulses Palpable: Left PT:Yes Left DP:Yes Motor/Sensory: Left Distal Motor:5 Distal Sensory: Normal Quadriceps Strength:5 I have made the following determinations: Knee Exam: Right Prior surgery on this joint: Yes Gait Abnormality: Normal Knee ROM: Extension:0 Flexion: 130 Alignment: 0-4 degrees Neutral Stability: A/P Translation <5mm. Varus <5mm Valgus <5mm Extension La degrees or less Radiographic evidence of joint damage: [0= normal; 1=minimal ; 2= some osteophytes , some narrowing ; 3= moderate osteophytes, significantnarrowing, mild deformity; 4= large osteophytes, marked narrowing, obvious deformity]: postop Patella Tracking: Normal Skin Integrity: Normal Pulses Palpable: Right PT: Yes Right DP:Yes Motor/Sensory: Distal Motor: 5 Distal Sensory: Normal Quadriceps Strength: 5 Neurologic Exam X-rays: Use of the knees today compared to previous films reveal no evidence of significant wear orpattern of change. Her x-rays appear stable. Assessment and Plan:Doing well status post bilateral total knee replacement The patient I discussed the findings today. I counseled her as to the usual precautions. I talked to her about the need to have continued surveillance. I would anticipate seeing her back in 2 years time with x-rays of both knees AP and lateral. These orders were placed today. She knows to call if any questions or concerns. She understands that we would advocate for continued antibiotic use prior to procedures. documented in this encounter Plan of Treatment Upcoming Encounters Date Type Department Care Team (Late st Contact Info) Description 03/04/2024 12:00 PM EST Office Visit [place] [address] Jordyn Francisco MD [facility] OBSTET[place] [address] documented as of this encounter Visit Diagnoses Diagnosis S/P TKR (total knee replacement) using cement- Primary Knee joint replacement by other means documented in this encounter Care Teams Armed Custom Protection Officer Relationship Specialty Start Date End Date Rashawn Bryant MD [address] [place] [address] SHELLI GALNA [address] PCP - General 11/03/10 01/13/15 documented as of this encounter
--- OUTSIDE RECORDS SUMMARY | 2024-02-27 19:38 | XMS_ITS | Encounter Summary ---
Author Organization [facility] [place] [address] Care Team Providers Care Molding Sander Name Role Phone Rashawn Bryant MD Primary Care Provider [phone] Encounter Details Date Type Department Care Team (Latest Contact Info) Description 05/23/2012 2:51 PM EST - 05/23/2012 11:59 PM EST Hospital Encounter XRay at [address] [place] [phone] S/P TKR (total knee replacement) using cement Social History Tobacco Use Types [...] Sig Dispensed Refills Start Date End Date Vitamin E 300 unit Oil Apply topically. 0 11/13/2012 UNABLE TO FIND Take by mouth 3 times daily. Digest-All 09/14/2010 09/26/2012 NAPROXEN ORAL Take 220 mg by mouth 2 times daily. 09/13/2010 11/13/2012 verapamil (CALAN) 120 mg tablet Take 120 mg by mouth daily. 09/13/2010 09/26/2012 documented as of this encounter Plan of Treatment Upcoming Encounters Date Type Department Care Team (Late st Contact Info) Description 03/04/2024 12:00 PM EST Office Visit Gynecology Oncology at [facility] [place] [address] Jordyn Francisco MD [facility] OBSTETRICS [place] [address] documented as of this encounter Procedures Procedure Name Priority Date/Time Associated Diagnosis Comments XR KNEE DIAGNOSTIC 1 OR 2 VIEW Routine 05/23/2012 3:05 PM EST S/P TKR (total knee replacement) using cement documented in this encounter Results * XR knee diagnostic 1 or 2 view (05/23/2012 3:05 PM EST) Anatomical Region Laterality Modality Knee N/A Radiographic Susan ging 05/23/2012 3:05 PM EST Narrative 05/23/2012 5:14 PM EST Examination KNEE 1 OR 2 VIEWS, 05/23/2012 ?? Clinical History right knee pain DOS 06/27/01,W/NEW PAIN PATIENT STATES HERE TODAY ABOUT THE LEFT KNEE; NO NEW PAIN IN THE RIGHT KNEE, JM RTR Comparison AP standing and lateral radiographs of the bilateral knees, 01/25/2012. Technique AP standing view of both knees and lateral view of the left knee,. Findings Left total knee arthroplasty appears unchanged in position. ??No periprosthetic fracture. ??There remains periprosthetic radiolucency diffusely about the tibial component at the metal-bone interface, which appears largely unchanged too perhaps slightly increased. ??Additionally, there is developing approximately 2 mm periprosthetic radiolucency at the metal-bone interface of the femoral component, best seen on the lateral view along the superior portion. ??A partially imaged left knee effusion is present. ??Right total knee arthroplasty on the comparison AP view appears unchanged without periprosthetic fracture or periprosthetic radiolucencies. ??A small screw is again seen in the proximal right tibial diaphysis. Impression 1. Left total knee arthroplasty with diffuse osteolysis of the tibial component, stable to perhaps slightly increased compared to prior, with also developing mild osteolysis of the femoral component. CT may be helpful for further evaluation. 2. Unchanged right total knee arthroplasty on the comparison AP views. Procedure Note June Garcia MD - 05/23/2012 Examination KNEE 1 OR 2 VIEWS, 05/23/2012 Clinical History right knee pain DOS 06/27/01,W/NEW PAIN PATIENT STATES HERE TODAY ABOUT THE LEFT KNEE; NO NEW PAIN IN THE RIGHTKNEE, JM RTR Comparison AP standing and lateral radiographs of the bilateral knees, 01/25/2012. Technique AP standing view of both knees and lateral view of the left knee,. Findings Left total knee arthroplasty appears unchanged in position. Noperiprosthetic fracture. There remains periprosthetic radiolucency diffusely about thetibial component at the metal-bone interface, which appears largely unchanged too perhaps slightly increased. Additionally, there is developingapproximately 2 mm periprosthetic radiolucency at the metal-bone interface of the femoral component, best seen on the lateral view along the superior portion. A partially imaged left knee effusion is present. Right total kneearthroplasty on the comparison AP view appears unchanged without periprostheticfracture or periprosthetic radiolucencies. A small screw is again seen in theproximal right tibial diaphysis. Impression 1. Left total knee arthroplasty with diffuse osteolysis of the tibial component, stable to perhaps slightly increased compared to prior, withalso developing mild osteolysis of the femoral component. CT may be helpful for further evaluation. 2. Unchanged right total knee arthroplasty on the comparison AP views. Carlos Delcid MD IMG DX ORDERABLES documented in this encounter Visit Diagnoses Diagnosis S/P TKR (total knee replacement) using cement Knee joint replacement by other means documented in this encounter Care Teams Molding Sander Relationship Specialty Start Date End Date Rashawn Bryant MD [address] [place] [address] [place] [address] PCP - General 11/03/10 01/13/15 documented as of this encounter
--- OUTSIDE RECORDS SUMMARY | 2024-02-27 19:38 | XMS_ITS | Encounter Summary ---
Author Organization [facility] [place] [address] Care Team Providers Care Electrocardiograph Technician Name Role Phone Rashawn Bryant MD Primary Care Provider [phone] Encounter Details Date Type Department Care Team (Late st Contact Info) Description 07/08/2012 Orders [place] [phone] Ashley Laughlin, RN DJD (degenerative joint disease) [...] PM EST Office Visit [place] [address] Jordyn Francisco MD [facility] OBSTETRICS [place] [address] Scheduled Orders Name Type Priority Associated Diagnoses Orde r Schedule EKG 12 Lead ECG Routine DJD (degenerative joint disease) of knee Expected: 07/08/2012, Expires: 11/05/2012 documented as of this encounter Results * Urine culture Clean Catch Urine (09/26/2012 3:41 PM EDT) Urine Culture ? Patient Name: SURYA KNIGHT ? Ordered By: CARLOS DELCID ? MR#: [id number] ?LOC: ??3D ? /Sex: ??1950 (62 years), ? Female ? PROCEDURE: Urine Culture ?SOURCE: U CC ? COLLECTED: 09/26/2012 15:41 ? STARTED: 09/26/2012 15:41 ? FINAL REPORT ? Final Report ? Verified:2012 15:06 ? 1,000-9,000 cfu/ml Gram Positive organisms , probable contaminant ? CERSUZETTE PATELENNIUM Urine specimen obtained by clean catch procedure (specimen) 09/26/2012 3:41 PM EDT 09/26/2012 3:41 PM EDT Narrative Resulting Agency Comment Spec In Lab Carlos Delcid MD MICROBIOLOGY - GENER AL ORDERABLES KEMI PATELENNIUM * (ABNORMAL) Urinalysis with microscopic (09/26/2012 3:19 [...] Urine Dipstick Clear Clear CERNER MILLENNIUM Specific Sunset Urine Automated 1.016 1.002 - 1.030 CERNER [...] In Lab Carlos Delcid MD URINE ORDERABLES Performing Organization Address City/State/[facility] Co de Phone Number [facility] * Prothrombin Time (09/26/2012 1:32 PM EDT) Prothrombin Time 13.0 12.0 - 15.0 sec [facility] Comment: [facility] Transfusion Committee Guidelines: INR less than 2.0, PTT less than OR equal to 43.5 seconds, or Fibrinogen greater than or equal to 100 mg/dl indicate adequate procoagulant activity for hemostasis in patients without underlying bleeding disorders. International Normalization Ratio 1.0 0.9 - 1.1 CERNER MILLENNIUM Blood specimen (specimen) 09/26/2012 1:32 PM EDT 09/26/2012 1:37 PM EDT Narrative Resulting Agency Comment Spec In Lab Carlos Delcid MD HEMATOLOGY ORDERABLE S KEMI PATELENNIUM * (ABNORMAL) Basic Metabolic Panel (non-fasting) (09/26/2012 1:32 PM EDT) [facility] Signature Glucose 88 60 - 199 mg/dL CERNER MILLENNIUM Comment:Diabetes: >=200 mg/d L plus symptoms Blood Urea Nitrogen 13 8 - 18 mg/dL CERNER MILLENNIUM Creatinine 0.58(L) 0.70 - 1.20 mg/dL CERNER MILLENNIUM Comment: Please note that the pediatric reference intervals supplied above were not validated at [facility]. Results from pediatric patients should be interpreted [...] In Lab Carlos Delcid MD CHEMISTRY ORDERABLES Performing Organization Address City/[facility]/ZIP Co de Phone Number CERNER MILLENNIUM * (ABNORMAL) CBC (with Diff) [...] MD HEMATOLOGY ORDERABLE S Performing Organization Address City/[facility] Co de Phone Number CERSUZETTE ANDERSONIUM documented in this encounter Visit Diagnoses Diagnosis DJD (degenerative joint disease) of knee- Primary Osteoarthrosis, unspecified whether generalized or localized, lower leg documented in this encounter Care Teams Electrocardiograph Technician Relationship Specialty Start Date End Date Rashawn Bryant MD [address] [place] [address] [place] [address] PCP - General 11/03/10 01/13/15 documented as of this encounter
--- OUTSIDE RECORDS SUMMARY | 2024-02-27 19:38 | XMS_ITS | Encounter Summary ---
Author Organization [facility] [place] [address] Care Team Providers Care Crowning Hammer Operator Name Role Phone Gerardo Barnes MD Primary Care Provider [phone] Encounter Details Date Type Department Care Team (Late st Contact Info) Description 09/13/2010 Abstract Urology at [place] [phone] Nemo Katz, RN Social History Tobacco Use Types Packs/Day [...] PM EST Office Visit [place] [address] Jordyn Francisco MD [facility] [address] OBSTETRICS [place] [address] documented as of this encounter Visit Diagnoses Not on filedocumented in this encounter Care Teams Crowning Hammer Operator Relationship Specialty Start Date End Date Gerardo Barnes MD PCP - General 03/01/10 11/02/10 documented as of this encounter
--- OUTSIDE RECORDS SUMMARY | 2024-02-27 19:38 | XMS_ITS | Encounter Summary ---
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) Social History Tobacco Use Types [...] PM EST Office Visit [place] [phone] Jordyn Francisco MD [facility] OBSTETRICS [place] [address] documented as of this encounter Results * [...] Primary Knee joint replacement by other means S/P TKR (total knee replacement) using cement Knee joint replacement by other means documented in this encounter Care Teams Environmental Health And Safety Manager Relationship Specialty Start Date End Date Rashawn Bryant MD [address] [place] [address] [place] [address] PCP - General 11/03/10 01/13/15 documented as of this encounter
--- OUTSIDE RECORDS SUMMARY | 2024-02-27 19:38 | XMS_ITS | Encounter Summary ---
Author Organization [facility] Address [facility] [place] [address] Care Team Providers Care Company Laundry Worker Name Role Phone Rashawn Bryant MD Primary Care Provider [phone] Encounter Details Date Type Department Care Team (Latest Contact Info) Description 11/07/2010 10:15 AM EDT - 11/07/2010 11:59 PM EDT Hospital Encounter XRay at [address] [place] [address] Arthroplasty, knee Social History Tobacco Use Types Packs/Day [...] mouth daily. 30 tablet 11 09/14/2010 05/23/2012 atenolol (TENORMIN) 50 mg tablet Take 50 mg by mouth daily. 01/25/2012 NAPROXEN ORAL Take 220 mg by mouth 2 times daily. 09/13/2010 11/13/2012 verapamil (CALAN) 120 mg tablet Take 120 mg by mouth daily. 09/13/2010 09/26/2012 EMU [id number] AP TOP 09/23/2009 05/23/2012 documented as of this encounter Plan of Treatment Upcoming Encounters Date Type Department Care Team (Late st Contact Info) Description 03/04/2024 12:00 PM EST Office Visit [place]ne[place] [address] Jordyn Francisco MD [facility] [place]ST[place] [address] documented as of this encounter Procedures Procedure Name Priority Date/Time Associated Diagnosis Comments XR KNEE AP AND LAT BILAT Routine 11/07/2010 10:49 AM EDT Arthroplasty, knee documented in this encounter Results * XR knee bilateral1 [...] in this encounter Visit Diagnoses Diagnosis Arthroplasty, knee Knee joint replacement by other means documented in this encounter Care Teams Company Laundry Worker Relationship Specialty Start Date End Date Rashawn Bryant MD [address] [place] [address] [place] [address] PCP - General 11/03/10 01/13/15 documented as of this encounter
[2024-02-27] MEDS: Doxycycline Hyclate 100 MG CAP PO (19:45)
[2024-02-27 20:06] LABS: COVID-19 PCR Negative (Negative); Influenza A PCR Negative (Negative); Influenza B PCR Negative (Negative); RSV PCR Negative (Negative)
[2024-02-27 20:09] LABS: Source NASOPHARYNX
== END 2024-02-27 19:54 | disposition home or self-care (01) ==
PROVIDERS: Emergency Provider Emergency Medicine; PCP Nurse Practitioner Family
DX: J98.8 Other specified respiratory disorders (principal); J45.901 Unspecified asthma with (acute) exacerbation; R93.1 Abnormal findings on diagnostic imaging of heart and coronary circulation; J44.9 Chronic obstructive pulmonary disease, unspecified; I10 Essential (primary) hypertension; Z88.0 Allergy status to penicillin; Z79.82 Long term (current) use of aspirin; Z79.899 Other long term (current) drug therapy
CPT/HCPCS: 80053; 84145; 87637; 93005; 94640; 99285; 71046; 83735; 83880; 84484; 85025; 93010; J2919; J7620